=== PATIENT | female | born 1965 | race Caucasian/White ===

== ENCOUNTER → 2019-08-22 13:53 | Outpatient (BNVA) | payer MEDICARE, MEDICAID, SELFPAY | PROVIDERS: Family Provider Family Medicine; PCP Family Medicine; Visit Provider Psychiatry & Neurology Psychiatry | DX: Z79.899 Other long term (current) drug therapy (principal) | CPT/HCPCS: 85007; 85027 ==

== ENCOUNTER → 2019-08-28 12:17 | Outpatient (BNVA) | payer MEDICARE, MEDICAID, SELFPAY | PROVIDERS: Family Provider Family Medicine; PCP Family Medicine; Visit Provider Psychiatry & Neurology Psychiatry | DX: F20.89 Other schizophrenia (principal); F17.210 Nicotine dependence, cigarettes, uncomplicated; F32.5 Major depressive disorder, single episode, in full remission | CPT/HCPCS: 99214 ==

== ENCOUNTER 2019-09-08 08:23 | Emergency (ER) | payer MEDICARE, MEDICAID, SELFPAY ==
[2019-09-08 08:24] VITALS: BP 128/89; PULSE 106; RESP 20; TEMP 36.9; O2SAT 95; BMI 31.8
--- NOTE | 2019-09-08 08:24 | ED_ITS ---
Entered by Sari Pal, acting as scribe for Cesar Neil DO HPI - General Adult General: Stated complaint: r arm pain History of Present Illness: HPI narrative: 54 yo female presents with right arm pain. MD complaint: right arm pain Location: right and upper extremity PFSH ED PFSH: Medical History (Updated 08/28/19 @ 13:05 by Slim Arguello DO) Cigarette nicotine dependence Major depressive disorder, single episode, in full remission Other schizophrenia Other stimulant dependence, uncomplicated Social History (Updated 08/28/19 @ 12:45 by Martha Estrada) Smoking and tobacco status: current every day smoker cigarettes Quit status (tobacco): considering quitting Second hand smoke exposure: Yes Discharge Plan Discharge Prescriptions: No Action mirtazapine 45 mg tablet 45 mg PO .QHS RF: 0 benztropine 2 mg tablet 4 mg PO .QHS RF: 0 citalopram [Celexa] 40 mg tablet 40 mg PO DAILY RF: 0 alprazolam [Xanax] 0.5 mg tablet 0.5 mg PO BID RF: 0 meloxicam 7.5 mg tablet 7.5 mg PO BID RF: 0 oxybutynin chloride 5 mg tablet 15 mg PO .QHS RF: 0 montelukast [Singulair] 10 mg tablet 10 mg PO DAILY RF: 0 Dexilant 60 mg capsule,biphase delayed releas 60 mg PO DAILY RF: 0 fluticasone propion-salmeterol [Advair Diskus] 100-50 mcg/dose blister with device 1 puff INHALATION BID RF: 0 tramadol 50 mg tablet 50 mg PO Q4H PRNRF: 0 clozapine 100 mg tablet 300 mg PO BID Qty: 180 RF: 5 Coding Level of Care Code ED Gasoline Power Shovel Operator for 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
--- NOTE | 2019-09-08 08:33 | W.ED.EXTPRO ---
HPI - Extremity Problem General: Chief complaint: Extremity Problem,Nontraumatic Stated complaint: r arm pain Time Seen by Provider: 09/08/19 08:27 Source: patient Mode of arrival: ambulatory Limitations: no limitations History of Present Illness: HPI Narrative: Patient is a 54-year-old female who presents to ED today with complaints of pain to her right upper extremity over the past week. No new injury or trauma noted. Patient states she seems to have pain in between her shoulder and elbow joints. She does report some intermittent numbness to the ulnar side of her hand. Patient has not noticed decreased range of motion of the joints. She has not noticed any swelling, color, or temperature changes to the extremity. Patient states she has had numbness to the hand previously-never diagnosed with carpal tunnel. Patient has no other complaints currently. MD Complaint: extremity pain Location: right and upper extremity Associated symptoms: Deny chest pain, fever(s) or rash Review of Systems Const: Denies: fever or chills Card: Denies: chest pain, palpitations, irregular heart rhythm, edema, swelling of feet/ankles, lightheadedness, syncope or pre-syncope Resp: Denies: shortness of breath Musc: Reports: extremity pain; Denies: neck pain, back pain, extremity swelling, joint pain, joint swelling, redness, joint warmth, joint stiffness or limited range of motion Skin/Breast: Denies: rash Neuro: Reports: numbness in extremities; Denies: headache, weakness in extremities or changes in sensation [facility] ED PFSH: Medical History (Updated 09/08/19 @ 08:37 by MAGDA Horowitz) Cigarette nicotine dependence Major depressive disorder, single episode, in full remission Other schizophrenia Other stimulant dependence, uncomplicated Social History (Updated 08/28/19 @ 12:45 by Martha Estrada) Smoking and tobacco status: current every day smoker cigarettes Quit status (tobacco): considering quitting Second hand smoke exposure: Yes Physical Exam Const: COMMON NORMALS: no apparent distress, average body habitus, no limitations, alert and well nourished Neck/C-Spine: COMMON NORMALS: full ROM CERVICAL SPINE: No cervical spine tenderness OTHER: negative Spurling's Resp: COMMON NORMALS: normal respiratory effort and clear to auscultation bilaterally AUSCULTATION: clear to auscultation bilaterally Cardio: COMMON NORMALS: regular rate and regular rhythm RATE: regular rate RHYTHM: regular rhythm Extremity: COMMON NORMALS: normal to inspection, full ROM, no joint enlargement and no calf tenderness Neuro: COMMON NORMALS: moves all extremities, no focal motor deficits and no sensory deficits noted SENSORIUM/ORIENTATION: Yes alert MOTOR EXAM: strength 5/5 throughout Skin: COMMON NORMALS: no rashes or lesions noted GENERAL SKIN EXAM: no rashes or lesions noted Course Vital Signs: Vital signs: Vital Signs Temperature 98.5 F 09/08/19 08:24 Pulse Rate 107 H 09/08/19 08:56 Respiratory Rate 20 H 09/08/19 08:56 Blood Pressure 128/86 09/08/19 08:56 Pulse Oximetry 95 09/08/19 08:56 MDM - Extremity (Nontraumatic) MDM Narrative: Medical decision making narrative: Patient neurologically is intact on today's exam. She has no decrease in strength. Range of motion of all joints are full and intact and appear painless. Patient will be treated for a possible neuropathy and recommend she follow-up with primary care for continued discomfort. Discharge Plan Discharge Patient Disposition: Home, Self-Care Clinical Impression: Neuropathy of right upper extremity Condition: Stable Prescriptions: New Medrol (Cedrick) 4 mg tablets,dose pack See Rx Instructions .ROUTE .COMPLEX Qty: 21 RF: 0 No Action mirtazapine 45 mg tablet 45 mg PO .QHS RF: 0 benztropine 2 mg tablet 4 mg PO .QHS RF: 0 citalopram [Celexa] 40 mg tablet 40 mg PO DAILY RF: 0 alprazolam [Xanax] 0.5 mg tablet 0.5 mg PO BID RF: 0 meloxicam 7.5 mg tablet 7.5 mg PO BID RF: 0 oxybutynin chloride 5 mg tablet 15 mg PO .QHS RF: 0 montelukast [Singulair] 10 mg tablet 10 mg PO DAILY RF: 0 Dexilant 60 mg capsule,biphase delayed releas 60 mg PO DAILY RF: 0 fluticasone propion-salmeterol [Advair Diskus] 100-50 mcg/dose blister with device 1 puff INHALATION BID RF: 0 tramadol 50 mg tablet 50 mg PO Q4H PRNRF: 0 clozapine 100 mg tablet 300 mg PO BID Qty: 180 RF: 5 Discharge Orders: Discharge Order (Routine); Ordered 09/08/19 Ordered By: Zayda Villavicencio Referrals: Grecia Kuhn MD [Primary Care Provider] - Activity Restrictions/Additional Instructions: You may continue taking your home medications as prescribed. We will place you on a steroid dose pack. Please contact Dr. Kuhn for further follow up in case symptoms do not improve. You may alternate ice/heat to affected area to see if this helps your discomfort. Discharge Date/Time: 09/08/19 08:57 Coding Level of Care Code ED Pyridine Recovery Operator for 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
[2019-09-08 08:56] VITALS: BP 128/86; PULSE 107; RESP 20; O2SAT 95
== END 2019-09-08 08:57 | disposition home or self-care (01) ==
LOC: ER 08:47
PROVIDERS: Emergency Provider Physician Assistant; Family Provider Family Medicine; PCP Family Medicine
DX: G56.91 Unspecified mononeuropathy of right upper limb (principal); F17.210 Nicotine dependence, cigarettes, uncomplicated
CPT/HCPCS: 99281

== ENCOUNTER 2019-09-23 09:51 | Inpatient (IN) | payer MEDICARE, MEDICAID, SELFPAY ==
--- NOTE | 2019-09-23 09:53 | ED_ITS ---
Entered by Vira Talbert, acting as scribe for Karlos Retana DO HPI - Psych General: Chief Complaint: Psychiatric Symptoms Stated Complaint: SI, HI Time Seen by Provider: 09/23/19 09:56 Source: EMS Mode of arrival: EMS Limitations: no limitations History of Present Illness: MD complaint: suicidal ideation and feels depressed Onset (ago): week(s) (1 week ago) Duration: constant Relieving factors: none Exacerbating factors: other (voices ) Context: significant life stressor (past issues) Associated psychiatric symptoms: depression, suicidal ideation and auditory hallucinations Associated symptoms: Reports no associated symptoms, auditory hallucinations, depression and suicidal ideation Treatments prior to arrival: none Review of Systems General: Reports: 10 or more systems reviewed and unremarkable except in HPI and below Const: Denies: fever or night sweats Eyes: Denies: change in vision or eye redness ENMT: Denies: throat pain or uvular edema Card: Denies: palpitations or lightheadedness Resp: Denies: shortness of breath or productive cough GI: Denies: abdominal pain, cramping or change in bowel habits : Denies: urinary hesitancy, urinary incontinence or vaginal odor Musc: Denies: joint warmth Skin/Breast: Denies: redness, changing lesion or yellow skin Psych: Reports: anxiety, depression, auditory hallucinations and suicidal ideation Endo: Denies: excessive urination or flushing Trevon/Lymph: Denies: easy bruising All/Imm: Denies: hives PFSH ED PFSH: Medical History Cigarette nicotine dependence Major depressive disorder, single episode, in full remission Other schizophrenia Other stimulant dependence, uncomplicated Social History Smoking and tobacco status: current every day smoker cigarettes Quit status (tobacco): considering quitting Second hand smoke exposure: Yes Physical Exam HENMT: THROAT: no uvular edema Psych: MOOD & AFFECT: Yes depressed mood MDM - Psych Lab Data: Labs: Lab Results 09/23/19 09/23/19 09/23/19 Range/Units 10:07 10:07 10:18 WBC 10.4 H (4.0-10.0) 10^3/ uL RBC 4.17 (4.1-5.3) 10^6/u L Hgb 12.1 (11.5-15.3) g/dL Hct 37.4 (37.0-47.0) % MCV 89.7 (81-99) fL MCH 29.0 (28.0-34.0) pg MCHC 32.4 (30.0-36.0) g/dL RDW 14.3 (12.1-15.1) % Plt Count 274 (130-400) 10^3/c mm MPV 9.5 (7.4-10.4) fL Neut % (Auto) 79.2 % Lymph % (Auto) 12.6 % [place] % (Auto) 7.7 % Eos % (Auto) 0.0 % Baso % (Auto) 0.1 % Neut # (Auto) 8.3 H (1.8-7.7) 10^3/u L Lymph # (Auto) 1.3 (0.8-4.8) 10^3/u L [place] # (Auto) 0.8 (0.2-0.9) 10^3/u L Eos # (Auto) 0.0 (0.0-0.8) 10^3/u L Baso # (Auto) 0.0 (0.0-0.1) 10^3/u L Nucleated RBC % (a uto) 0 % Nucleated RBCs # 0.0 /100WBC Sodium 141 (136-145) mmol/L Potassium 4.3 (3.5-5.1) mmol/L Chloride 103 (98-107) mmol/L Carbon Dioxide 26 (22-29) mmol/L Anion Gap 16.3 (5-19) BUN 8 (6-20) mg/dL Creatinine 0.7 (0.5-0.9) mg/dL GFR Calculation 86.9 L (90-130) mL/min Glucose 129 H (65-115) mg/dL Calcium 10.2 (8.5-10.5) mg/dL Total Bilirubin 0.2 (0.15-1.2) mg/dL AST 16 (0-32) U/L ALT 18 (0-33) U/L Alkaline Phosphata se 121 H (35-105) IU/L Total Protein 7.5 (6.6-8.7) g/dL Albumin 4.5 (3.5-5.2) g/dL Globulin 3.0 (1.3-4.6) g/dL TSH 1.51 (0.27-4.20) uIU/ mL Urine Color Colorless (Yellow) Urine Appearance Clear (CLEAR) Urine pH 5.0 (5-7) Ur Specific Gravit y 1.005 (1.005-1.030) Urine Protein Neg (Negative) Urine Glucose (UA) Norm (Normal) Urine Ketones Negative (Negative) Urine Blood Neg (Negative) Urine Nitrate Negative (Negative) Urine Bilirubin Neg (NEGATIVE) Urine Urobilinogen Norm (Negative) mg/dL Ur Leukocyte Zaria ase Negative (Negative) Salicylates < 0.3 L (3-10) mg/dL Urine Opiates Scre en (Negative) ng/mL Acetaminophen < 5.0 L (10-30) ug/mL Ur Barbiturates Sc reen (Negative) ng/mL Ur Phencyclidine S crn (Negative) ng/mL Ur Amphetamines Sc reen (Negative) ng/mL U Benzodiazepines Scrn (Negative) ng/mL Urine Cocaine Scre en (Negative) ng/mL U Marijuana (THC) Screen (Negative) ng/mL Ethyl Alcohol < 10 (0-10) mg/dL 09/23/19 Range/Units 10:18 WBC (4.0-10.0) 10^3/ uL RBC (4.1-5.3) 10^6/u L Hgb (11.5-15.3) g/dL Hct (37.0-47.0) % MCV (81-99) fL MCH (28.0-34.0) pg MCHC (30.0-36.0) g/dL RDW (12.1-15.1) % Plt Count (130-400) 10^3/c mm MPV (7.4-10.4) fL Neut % (Auto) % Lymph % (Auto) % [place] % (Auto) % Eos % (Auto) % Baso % (Auto) % Neut # (Auto) (1.8-7.7) 10^3/u L Lymph # (Auto) (0.8-4.8) 10^3/u L [place] # (Auto) (0.2-0.9) 10^3/u L Eos # (Auto) (0.0-0.8) 10^3/u L Baso # (Auto) (0.0-0.1) 10^3/u L Nucleated RBC % (a uto) % Nucleated RBCs # /100WBC Sodium (136-145) mmol/L Potassium (3.5-5.1) mmol/L Chloride (98-107) mmol/L Carbon Dioxide (22-29) mmol/L Anion Gap (5-19) BUN (6-20) mg/dL Creatinine (0.5-0.9) mg/dL GFR Calculation (90-130) mL/min Glucose (65-115) mg/dL Calcium (8.5-10.5) mg/dL Total Bilirubin (0.15-1.2) mg/dL AST (0-32) U/L ALT (0-33) U/L Alkaline Phosphata se (35-105) IU/L Total Protein (6.6-8.7) g/dL Albumin (3.5-5.2) g/dL Globulin (1.3-4.6) g/dL TSH (0.27-4.20) uIU/ mL Urine Color (Yellow) Urine Appearance (CLEAR) Urine pH (5-7) Ur Specific Gravit y (1.005-1.030) Urine Protein (Negative) Urine Glucose (UA) (Normal) Urine Ketones (Negative) Urine Blood (Negative) Urine Nitrate (Negative) Urine Bilirubin (NEGATIVE) Urine Urobilinogen (Negative) mg/dL Ur Leukocyte Zaria ase (Negative) Salicylates (3-10) mg/dL Urine Opiates Scre en Negative (Negative) ng/mL Acetaminophen (10-30) ug/mL Ur Barbiturates Sc reen Negative (Negative) ng/mL Ur Phencyclidine S crn Negative (Negative) ng/mL Ur Amphetamines Sc reen Negative (Negative) ng/mL U Benzodiazepines Scrn Negative (Negative) ng/mL Urine Cocaine Scre en Negative (Negative) ng/mL U Marijuana (THC) Screen Negative (Negative) ng/mL Ethyl Alcohol (0-10) mg/dL Discharge Plan Discharge Clinical Impression: Acute psychosis, Chronic schizophrenia, Suicidal ideation Depression Qualifiers: Depression Type: major depressive disorder Major depression recurrence: recurrent Active/Remission status: currently active Major depression episode severity: severe Psychotic features: with psychotic features Qualified Code(s): F33.3 - Major depressive disorder, recurrent, severe with psychotic symptoms Condition: Fair Prescriptions: No Action mirtazapine 45 mg tablet 45 mg PO .QHS RF: 0 benztropine 2 mg tablet 4 mg PO .QHS RF: 0 citalopram [Celexa] 40 mg tablet 40 mg PO DAILY RF: 0 alprazolam [Xanax] 0.5 mg tablet 0.5 mg PO BID RF: 0 meloxicam 7.5 mg tablet 7.5 mg PO BID RF: 0 oxybutynin chloride 5 mg tablet 15 mg PO .QHS RF: 0 montelukast [Singulair] 10 mg tablet 10 mg PO DAILY RF: 0 Dexilant 60 mg capsule,biphase delayed releas 60 mg PO DAILY RF: 0 fluticasone propion-salmeterol [Advair Diskus] 100-50 mcg/dose blister with device 1 puff INHALATION BID RF: 0 tramadol 50 mg tablet 50 mg PO Q4H PRNRF: 0 clozapine 100 mg tablet 300 mg PO BID Qty: 180 RF: 5 Medrol (Cedrick) 4 mg tablets,dose pack See Rx Instructions .ROUTE .COMPLEX Qty: 21 RF: 0 Referrals: Grecia Kuhn MD [Primary Care Provider] - Coding Level of Care Code ED Feller Hand for Chg Fwd Exam Problem Focused The documentation recorded by the [place] Bridget Annette, accurately reflects the service I personally performed and the decisions made by me, Karlos Retana, DO
[2019-09-23 09:55] VITALS: BP 146/95; PULSE 107; RESP 16; TEMP 37; O2SAT 96; BMI 31.8
[2019-09-23 10:14] LABS: Basophils % 0.1 %; Hematocrit 37.4 % (37.0-47.0); Hemoglobin 12.1 g/dL (11.5-15.3); Lymphocytes # 1.3 10^3/uL (0.8-4.8); Lymphocytes % 12.6 %; Mean Corpuscular HGB Conc 32.4 g/dL (30.0-36.0); Mean Corpuscular Volume 89.7 fL (81-99); Mean Platelet Volume 9.5 fL (7.4-10.4); Monocytes # 0.8 10^3/uL (0.2-0.9); Monocytes % 7.7 %; Neutrophils # 8.3 10^3/uL (1.8-7.7); Neutrophils % 79.2 %; Nucleated Red Blood Cells % 0 %; Platelet Count 274 10^3/cmm (130-400); Red Blood Count 4.17 10^6/uL (4.1-5.3); Red Cell Distribution Width 14.3 % (12.1-15.1); White Blood Count 10.4 10^3/uL (4.0-10.0)
[2019-09-23] MEDS: haloperidol inj 5 mg/mL INJ 1 mL IM (10:19)
[2019-09-23 10:26] LABS: Add Urine Microscopic? NO
[2019-09-23 10:29] LABS: Bilirubin Urine Neg (NEGATIVE); Blood Urine Neg (Negative); Glucose Urine UA Norm (Normal); Ketones Urine Negative (Negative); Leukocyte Esterase Urine Negative (Negative); Nitrate Urine Negative (Negative); Protein Urine Neg (Negative); Specific Gravity, Urine 1.005 (1.005-1.030); Urine Appearance Clear (CLEAR); Urine Color Colorless (Yellow); Urobilinogen Urine Norm (Negative)
[2019-09-23 10:41] LABS: Alanine Aminotransferase 18 U/L (0-33); Albumin Level 4.5 g/dL (3.5-5.2); Alkaline Phosphatase 121 IU/L (35-105); Anion Gap 16.3 (5-19); Aspartate Amino Transferase 16 U/L (0-32); Blood Urea Nitrogen 8 mg/dL (6-20); Calcium 10.2 mg/dL (8.5-10.5); Carbon Dioxide 26 mmol/L (22-29); Chloride 103 mmol/L (98-107); Glomerular Filtration Rate 86.9 mL/min (90-130); Glucose 129 mg/dL (65-115); Potassium 4.3 mmol/L (3.5-5.1); Sodium 141 mmol/L (136-145); Thyroid Stimulating Hormone 1.51 uIU/mL (0.27-4.20); Total Bilirubin 0.2 mg/dL (0.15-1.2); Total Protein 7.5 g/dL (6.6-8.7)
[2019-09-23 10:45] LABS: Amphetamines Screen Urine Negative (Negative); Barbiturates Screen Urine Negative (Negative); Benzodiazepines Screen Urine Negative (Negative); Cocaine Screen Urine Negative (Negative); Opiate Screen Urine Negative (Negative); PCP Screen Urine Negative (Negative); THC Screen Urine Negative (Negative)
[2019-09-23 10:52] LABS: Acetaminophen < 5.0 ug/mL (10-30); Alcohol Level < 10 mg/dL (0-10); Salicylate < 0.3 mg/dL (3-10)
[2019-09-23 11:18] VITALS: BP 124/90; PULSE 101; RESP 20; TEMP 36.6; O2SAT 97
[2019-09-23 11:39] VITALS: BP 142/75; PULSE 82; RESP 16; TEMP 37; O2SAT 96
[2019-09-23] MEDS: acetaminophen 325 mg Tablet 650 MG PO ×2 (13:09→17:38)
[2019-09-23 14:00] VITALS: BP 142/75; PULSE 82; RESP 16; TEMP 37
[2019-09-23 22:00] VITALS: BP 107/73; PULSE 100; RESP 17; TEMP 36.6; O2SAT 93
[2019-09-23] MEDS: benztropine 1 mg Tablet 4 MG PO (22:32)
[2019-09-23] MEDS: cloZAPine 100 mg Tablet 300 MG PO (22:33)
[2019-09-23] MEDS: mirtazapine 15 mg Tablet 45 MG PO (22:33)
[2019-09-23] MEDS: albuterol 8 gm MDI 1 PUFF INHALATION (22:36)
[2019-09-24 06:00] VITALS: BP 128/86; PULSE 98; RESP 16; TEMP 36.5; O2SAT 95
--- NOTE | 2019-09-24 07:29 | PM.NHP ---
Providers/Chief Complaint Admitting Physician: Lawrence Martinez MD Primary Care Provider: Grecia Kuhn MD Chief Complaint: ACUTE PSYCHOSIS HPI NPU History of Present Illness Hilda Nolan is a 54 year old female presents today reporting that she is doing okay. Last night after she was admitted, she cornered this medical writer and was talking about signing out AMA. She ended up staying and reports that she is really overwhelmed right now with her circumstance outside of the hospital. She reports that the place where she lives is very toxic at times and overwhelming to her. However, she says her medications are really effective in treating her psychosis. She gets her blood draws on time and she has been able to avoid being hospitalized since September of 2015. Excerpt from that note are provided below. She reports that she has been doing fine overall. No problems outside of the challenges that come from living where she lives, which she reports can be absolutely overwhelming. We discussed the risks, benefits and alternatives of working with the social workers to do two things. One would be to get a signal operator technical/classification case manager who can help her navigate the systems outside of the hospital in the event that she wants to make some change, which she seems fairly confused and unsure what she wants to do. Number two, they are going to connect her with a day program to get her out of that environment during the day. We discussed her not signing out AMA and sticking here for at least one day so we can get those things in place. We discussed the fact that she has done such a good job on her medication and avoiding hospitalization for this amount of time, we would hate for things to go back in the other direction because we have not assisted her with getting the right resources in place. She endorses that her psychiatric history, psychosocial history is essentially unchanged. She denies any new issues that might have any bearing on her current presentation. PSYCHIATRIC HISTORY: As above. She has had multiple hospitalizations but has been fairly stable for the last four years. SUBSTANCE ABUSE HISTORY: She denies any significant substance abuse issues at this time. FAMILY HISTORY: She denies significant psychiatric history with her family. DEVELOPMENTAL HISTORY: Unremarkable and no impact on current situation. PSYCHOSOCIAL HISTORY: As stated above, unchanged. She endorses having children that are grown. She is and needing something during the day to fill her time as she is not working and disabled. Per last IP [facility] eval 09/2015: HISTORY OF PRESENT ILLNESS: She was admitted to the Neuropsychiatric Unit after she has been contemplating suicide. She has been thinking a lot about her life and talked about her stress of missing her children. She has reported that she has been feeling depressed. She thought about taking an excess amount of Valium with no clear intentions. She believes that her intention is not quite right. She took about 9 tablets of Valium of 5 milligram strength. The patient reported that she has been regularly seen by [facility] outpatient psychiatric services. She has been treated for underlying schizophrenia and her history of methamphetamine use disorder, which has been in remission. She has been put on clozapine at 200 milligrams twice daily. She has also been given Remeron 45 milligrams at bedtime. She has continued to attend psychosocial rehabilitation services at [facility]. Strong recommendation for psychosocial rehab was encouraged. She has no EPS. The patient was vague about hallucinatory behaviors. ALLERGIES: Ibuprofen and seafood. PAST PSYCHIATRIC HISTORY: Previous hospitalization here at the Neuro[facility] Unit. Her last hospitalization was in April of 2015. However, she has regular followup at [facility]. She gave history of suicide attempt in the past, which included also overdose on her medications. SOCIAL HISTORY: She is . She is currently living alone. Her children are currently not with her. She attends the psychosocial rehabilitation services regularly. FAMILY HISTORY: She has denied a family history of psychiatric illness. PAST MEDICAL HISTORY: Gastroesophageal reflux disease. Constipation. Chronic obstructive pulmonary disease. Peptic ulcer disease and hepatitis. Also fibromyalgia. REVIEW OF SYSTEMS: Negative, except what was described in the History of Present Illness. DIAGNOSTICS: LABORATORIES: White count 10.1, hemoglobin 14.0, hematocrit 42.1. Platelet count is 260,000. Toxicology was positive for benzodiazepines. Chemistry showed: Sodium of 141, potassium 4.1, BUN 10, creatinine 0.9. AST and ALT 29 and 27 respectively. MEDICATIONS: Singulair 10 milligrams daily. Meloxicam 50 milligrams daily. Protonix 40 milligrams daily. Cogentin 2 milligrams daily. Advair 2 puffs twice daily. Remeron 45 milligrams at bedtime. Clozapine 200 milligrams twice daily. MiraLax one packet daily. Ventolin 2 puffs every 4 hours p.r.n. She has also been prescribed Diazepam at the outpatient clinic at 5 milligrams daily. Diazepam is the medication that she overdosed on. Meds NPU Home Medications Medication Instructions Recorded Confirmed Type alprazolam 0.5 mg tablet 0.5 mg PO BID 08/28/19 09/23/19 History benztropine 2 mg tablet 4 mg PO .QHS tab 08/28/19 09/23/19 History citalopram 40 mg tablet 40 mg PO DAILY 08/28/19 09/23/19 History dexlansoprazole 60 mg 60 mg PO DAILY 08/28/19 09/23/19 History capsule,biphase delayed release meloxicam 7.5 mg tablet 7.5 mg PO BID tab 08/28/19 09/23/19 History mirtazapine 45 mg tablet 45 mg PO .QHS tab 08/28/19 09/23/19 History montelukast 10 mg tablet 10 mg PO DAILY 08/28/19 09/23/19 History oxybutynin chloride 5 mg tablet 15 mg PO DAILY tab 08/28/19 09/23/19 History tramadol 50 mg tablet 50 mg PO Q4H PRN MDD 200MG 08/28/19 09/23/19 History Advair Diskus 250 mcg INHALATION BID 09/23/19 09/23/19 History Flonase Allergy Relief 50 mcg NOSTRIL-B DAILY 09/23/19 09/23/19 History Ventolin HFA 108 mcg INHALATION Q4H 09/23/19 09/23/19 History clozapine [Clozaril] 300 mg PO BEDTIME 09/23/19 09/23/19 History Allergies Allergy/AdvReac Type Severity Reaction Status Date / Time ibuprofen Allergy Unknown unknown Verified 08/22/19 14:01 PFS NPU PFSH: Medical History Cigarette nicotine dependence Major depressive disorder, single episode, in full remission Other schizophrenia Other stimulant dependence, uncomplicated Social History Smoking and tobacco status: current every day smoker cigarettes Quit status (tobacco): considering quitting Second hand smoke exposure: Yes Mental Status Exam MSE Comments: This is an obese, white female, with adequate dress, grooming, and eye contact. No abnormal movements. Cooperative with exam in no acute distress. Speech was decreased rate and volume. Mood described as a little better than yesterday; affect congruent. Thought process, organized. Thought content: patient denied any suicidal or homicidal ideation, there were no delusions reported or noted, patient denied any auditory or visual hallucinations. Attention, concentration, and memory appear intact but were not formally tested. He is alert and oriented times three. Insight and judgment are limited but improving. Vitals/I&O/Wt Last Vital Signs Temp 97.7 F 09/24/19 06:00 Pulse 98 09/24/19 06:00 Resp 16 09/24/19 06:00 BP 128/86 09/24/19 06:00 Pulse Ox 95 09/24/19 06:00 Weight last 48 hrs Weight 78.925 kg Data NPU : 09/23/19 10:07 09/23/19 10:07 A&P Additional A&P Information This is a 54 year old, white female, with a long history of schizoaffective disorder, anxiety and limited resources, who presents initially wanting to sign out AMA, but now willing to work with us for a very short stay with a plan to boost her resources for discharge. RECOMMENDATION AND PLAN: Continue current medication. Encourage individual, group, and milieu therapy. Continue q 15-minute checks. Will work to get day programming and classification case manager in place today so that she can be discharged tomorrow. Involuntary Hold Information 96 Hour Hold: 96 Hour Involuntary Admission: No Attestations NPU Medical Necessity Statement*: Inpatient hospitalization is medically necessary and the clinically appropriate intervention at this time. We will monitor medications and change as indicated. likely length of stay 1-3 days. Coding Level of Care Code Acute Medical Educator for 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
[2019-09-24] MEDS: albuterol 8 gm MDI 1 PUFF INHALATION (11:16)
[2019-09-24] MEDS: citalopram 20 mg Tablet 40 MG PO (11:17)
[2019-09-24] MEDS: montelukast sodium 10 mg Tablet PO (11:18)
[2019-09-24] MEDS: ALPRAZolam 0.5 mg Tablet PO ×2 (11:18→17:49)
[2019-09-24] MEDS: meloxicam 7.5 mg tablet PO ×2 (11:21→17:49)
[2019-09-24] MEDS: oxybutynin 5 mg Tablet 15 MG PO (11:21)
[2019-09-24] MEDS: nicotine 2 mg Gum BUCCAL ×3 (11:22→21:46)
[2019-09-24] MEDS: pantoprazole DR 40 mg Tablet PO (11:22)
[2019-09-24] MEDS: TRAMadol 50 mg Tablet PO (11:23)
[2019-09-24] MEDS: fluticasone nasal spray 16gm Btl 1 SPRAY NASAL (12:39)
[2019-09-24 13:56] VITALS: BP 111/73; PULSE 109; RESP 20; TEMP 37; O2SAT 93
[2019-09-24] MEDS: cloZAPine 100 mg Tablet 300 MG PO (21:44)
[2019-09-24] MEDS: mirtazapine 15 mg Tablet 45 MG PO (21:45)
[2019-09-24] MEDS: benztropine 1 mg Tablet 4 MG PO (21:45)
--- NOTE | 2019-09-24 21:45 | PC.NURSE ---
HS meds cogentin, clozaril, remeron given.
[2019-09-24 22:00] VITALS: BP 115/79; PULSE 83; RESP 17; TEMP 36.9; O2SAT 96
--- NOTE | 2019-09-24 22:00 | PC.NURSE ---
nicorete gum given.
[2019-09-25 06:00] VITALS: BP 125/89; PULSE 99; RESP 16; TEMP 36.6; O2SAT 95
[2019-09-25] MEDS: ALPRAZolam 0.5 mg Tablet PO (08:30)
[2019-09-25] MEDS: oxybutynin 5 mg Tablet 15 MG PO (08:31)
[2019-09-25] MEDS: citalopram 20 mg Tablet 40 MG PO (08:32)
[2019-09-25] MEDS: meloxicam 7.5 mg tablet PO (08:32)
[2019-09-25] MEDS: pantoprazole DR 40 mg Tablet PO (08:32)
[2019-09-25] MEDS: montelukast sodium 10 mg Tablet PO (08:32)
[2019-09-25] MEDS: albuterol 8 gm MDI 1 PUFF INHALATION ×2 (08:35→09:35)
[2019-09-25] MEDS: fluticasone nasal spray 16gm Btl 1 SPRAY NASAL (08:38)
[2019-09-25 08:49] VITALS: PULSE 92; RESP 18; O2SAT 96
[2019-09-25] MEDS: nicotine 2 mg Gum BUCCAL (08:59)
[2019-09-25] MEDS: TRAMadol 50 mg Tablet PO (09:18)
--- NOTE | 2019-09-25 11:53 | P.DS_ITS ---
Diagnoses at Discharge Discharge Diagnosis (1) Acute psychosis: Status: Acute (2) Chronic schizophrenia: Status: Acute (3) Major depressive disorder, single episode, in full remission: Status: Acute (4) Cigarette nicotine dependence: Status: Acute Reason for Visit Reason for Visit: Reason For Visit: ACUTE PSYCHOSIS Brief History: HPI NPU History of Present Illness Hilda Nolan is a 54 year old female presents today reporting that she is doing okay. Last night after she was admitted, she cornered this conventional underwriter and was talking about signing out AMA. She ended up staying and reports that she is really overwhelmed right now with her circumstance outside of the hospital. She reports that the place where she lives is very toxic at times and overwhelming to her. However, she says her medications are really effective in treating her psychosis. She gets her blood draws on time and she has been able to avoid being hospitalized since September of 2015. Excerpt from that note are provided below. She reports that she has been doing fine overall. No problems outside of the challenges that come from living where she lives, which she reports can be absolutely overwhelming. We discussed the risks, benefits and alternatives of working with the social workers to do two things. One would be to get a tower crane operator/block and case maker who can help her navigate the systems outside of the hospital in the event that she wants to make some change, which she seems fairly confused and unsure what she wants to do. Number two, they are going to connect her with a day program to get her out of that environment during the day. We discussed her not signing out AMA and sticking here for at least one day so we can get those things in place. We discussed the fact that she has done such a good job on her medication and avoiding hospitalization for this amount of time, we would hate for things to go back in the other direction because we have not assisted her with getting the right resources in place. She endorses that her psychiatric history, psychosocial history is essentially unchanged. She denies any new issues that might have any bearing on her current presentation. PSYCHIATRIC HISTORY: As above. She has had multiple hospitalizations but has been fairly stable for the last four years. SUBSTANCE ABUSE HISTORY: She denies any significant substance abuse issues at this time. FAMILY HISTORY: She denies significant psychiatric history with her family. DEVELOPMENTAL HISTORY: Unremarkable and no impact on current situation. PSYCHOSOCIAL HISTORY: As stated above, unchanged. She endorses having children that are grown. She is and needing something during the day to fill her time as she is not working and disabled. Per last IP [facility] [place] 09/2015: HISTORY OF PRESENT ILLNESS: She was admitted to the Neuropsychiatric Unit after she has been contemplating suicide. She has been thinking a lot about her life and talked about her stress of missing her children. She has reported that she has been feeling depressed. She thought about taking an excess amount of Valium with no clear intentions. She believes that her intention is not quite right. She took about 9 tablets of Valium of 5 milligram strength. The patient reported that she has been regularly seen by [facility] outpatient psychiatric services. She has been treated for underlying schizophrenia and her history of methamphetamine use disorder, which has been in remission. She has been put on clozapine at 200 milligrams twice daily. She has also been given Remeron 45 milligrams at bedtime. She has continued to attend psychosocial rehabilitation services at [facility]. Strong recommendation for psychosocial rehab was encouraged. She has no EPS. The patient was vague about hallucinatory behaviors. ALLERGIES: Ibuprofen and seafood. PAST PSYCHIATRIC HISTORY: Previous hospitalization here at the Neuropsychiatric Unit. Her last hospitalization was in April of 2015. However, she [facility]. She gave history of suicide attempt in the past, which included also overdose on her medications. SOCIAL HISTORY: She is . She is currently living alone. Her children are currently not with her. She attends the psychosocial rehabilitation services regularly. FAMILY HISTORY: She has denied a family history of psychiatric illness. PAST MEDICAL HISTORY: Gastroesophageal reflux disease. Constipation. Chronic obstructive pulmonary disease. Peptic ulcer disease and hepatitis. Also fibromyalgia. REVIEW OF SYSTEMS: Negative, except what was described in the History of Present Illness. DIAGNOSTICS: LABORATORIES: White count 10.1, hemoglobin 14.0, hematocrit 42.1. Platelet count is 260,000. Toxicology was positive for benzodiazepines. Chemistry showed: Sodium of 141, potassium 4.1, BUN 10, creatinine 0.9. AST and ALT 29 and 27 respectively. MEDICATIONS: Singulair 10 milligrams daily. Meloxicam 50 milligrams daily. Protonix 40 milligrams daily. Cogentin 2 milligrams daily. Advair 2 puffs twice daily. Remeron 45 milligrams at bedtime. Clozapine 200 milligrams twice daily. MiraLax one packet daily. Ventolin 2 puffs every 4 hours p.r.n. She has also been prescribed Diazepam at the outpatient clinic at 5 milligrams daily. Diazepam is the medication that she overdosed on. Hospital Course Hospital Course Hilda presented to the emergency room endorsing inability go on/suicidal thoughts related to the trauma and stress coming from her living arrangement. She was admitted to the neuropsych unit and quickly acclimated to the individual, group and milieu therapies provided. She was assisted in getting some daytime resources as well as connection to a block and case maker and they could explore the possibility of changing living quarters. She felt the medications have been very effective and so no changes were made in her medications. She had routine laboratory studies which were within normal limits except for a few outliers. Additionally she had a general medical evaluation that was within normal limits and revealed no new acute processes. Discharge Summary At the time of discharge she denied all lethality, and anxieties were stable and she denied any active addiction issues and she endorsed the plan to avoid any drugs of abuse. She agreed to accept the referrals that were made. She was evaluated and found to lack any concern or imminent risk to self or others. She did obtain the maximum benefit from inpatient hospitalization so she was discharged. Involuntary Hold Information 96 Hour Hold: 96 Hour Involuntary Admission: No Mental Status Exam MSE Comments: This is an obese, white female, with adequate dress, grooming, and eye contact. No abnormal movements. Cooperative with exam in no acute distress. Speech was normal rate and slightly decreased volume. Mood described as pretty good; affect congruent. Thought process, organized. Thought content: patient denied any suicidal or homicidal ideation, there were no delusions reported or noted, patient denied any auditory or visual hallucinations. Attention, concentration, and memory appear intact but were not formally tested. He is alert and oriented times three. Insight and judgment are improving. Discharge Data Vitals: Last Vital Signs Temp 97.8 F 09/25/19 06:00 Pulse 92 09/25/19 08:49 Resp 18 09/25/19 08:49 BP 125/89 09/25/19 06:00 Pulse Ox 96 09/25/19 08:49 Discharge Plan Discharge Patient Disposition: Home, Self-Care Condition: Fair Prescriptions: Continued benztropine 2 mg tablet 4 mg PO .QHS RF: 0 meloxicam 7.5 mg tablet 7.5 mg PO BID RF: 0 oxybutynin chloride 5 mg tablet 15 mg PO DAILY RF: 0 montelukast [Singulair] 10 mg tablet 10 mg PO DAILY RF: 0 Dexilant 60 mg capsule,biphase delayed releas 60 mg PO DAILY RF: 0 Clozaril 100 mg tablet 300 mg PO BEDTIME RF: 0 Advair Diskus inhaler 250 mcg inhalation BID RF: 0 Flonase Allergy Relief nasal spray syringe 50 mcg NOSTRIL-B DAILY RF: 0 Ventolin HFA aerosol 108 mcg inhalation Q4H RF: 0 Celexa 40 mg tablet 40 mg PO DAILY 30 Days Qty: 30 RF: 0 Xanax 0.5 mg tablet 0.5 mg PO BID 30 Days Qty: 60 RF: 0 mirtazapine 45 mg tablet 45 mg PO .QHS 30 Days Qty: 30 RF: 0 Changed tramadol 50 mg tablet 50 mg PO TID MDD 200MG PRN (Reason: Pain (Scale Score 4-6)) 15 Days Qty: 45 RF: 1 Discharge Orders: Discharge Order (Routine); Ordered 09/25/19 Ordered By: Lawrence Martinez Referrals: Grecia Kuhn MD [Primary Care Provider] - Slim Arguello DO [Staff Physician] - 10/27/19 9:30 am Discharge Diet: Regular Discharge Activity: Resume usual activity Activity Restrictions/Additional Instructions: A request for PSR and case management has been made. Referrals are pending. You may check with Crystal Araujo at [facility] on any update in regards to the referrals. [phone] Discharge Date/Time: 09/25/19 14:30 Discharge Attestations NPU Time Spent in Discharge Care*: less than 30 min Specific Discharge Activities: Specific discharge activities: educating patient, discussing with case hardener/social workers/dc planners, documenting/other paperwork and evaluating patient/reviewing data Coding Level of Care Code Acute Music Promoter for Krystin Fwd Diagnoses Acute psychosis F23 Chronic schizophrenia F20.9 Major depressive disorder, single episode, in full remission F32.5 Cigarette nicotine dependence F17.210
[2019-09-25 12:29] VITALS: PULSE 92; RESP 18; O2SAT 96
[2019-09-25 14:21] VITALS: PULSE 92; RESP 18; O2SAT 96
== END 2019-09-25 14:30 | disposition home or self-care (01) | DRG 885 ==
LOC: ER 11:41 → NP 11:43
PROVIDERS: Admitting Provider Psychiatry & Neurology Psychiatry; Emergency Provider Family Medicine; Family Provider Family Medicine; PCP Family Medicine; Visit Provider Psychiatry & Neurology Psychiatry
DX: F32.5 Major depressive disorder, single episode, in full remission (principal); R45.851 Suicidal ideations; F20.89 Other schizophrenia; F17.210 Nicotine dependence, cigarettes, uncomplicated; E66.9 Obesity, unspecified; Z68.31 Body mass index [BMI] 31.0-31.9, adult; K21.9 Gastro-esophageal reflux disease without esophagitis; J44.9 Chronic obstructive pulmonary disease, unspecified; M79.7 Fibromyalgia; Z87.11 Personal history of peptic ulcer disease
CPT/HCPCS: 12345; 36415; 80053; 80307; 81003; 84443; 85025; 94640; 96372; 99281; J1630; J3535

== ENCOUNTER 2019-10-14 10:35 | Emergency (ER) | payer MEDICARE, MEDICAID, SELFPAY ==
[2019-10-14 09:55] VITALS: BP 115/89; PULSE 111; RESP 16; TEMP 36.6; O2SAT 96; BMI 30.7
--- NOTE | 2019-10-14 09:58 | W.ED.PSYCH ---
HPI - Psych General: Chief Complaint: Psychiatric Symptoms Stated Complaint: MHE/feeling overwhelmed Time Seen by Provider: 10/14/19 10:24 Source: patient Mode of arrival: ambulatory Limitations: no limitations History of Present Illness: HPI Narrative: 54 yo female presents with HI and symptoms. pt states this started over 3-5 days ago. pt states no one wants to help her and she gets depressed and can not help her self. pt also states she wants to be checked for the hobbs virus. pt states she has no plan but wants to harm people that has harmed her. pt denies any other symptoms at this time. MD complaint: feels depressed and other (HI) Onset (ago): day(s) (3-5 days ago) Associated symptoms: Reports depression and homicidal ideation Review of Systems General: Reports: 10 or more systems reviewed and unremarkable except in HPI and below Musc: Denies: joint warmth Psych: Reports: anxiety, depression, hopelessness, loss of interest and homicidal ideation PFS ED PFSH: Social History Smoking and tobacco status: current every day smoker cigarettes Quit status (tobacco): considering quitting Second hand smoke exposure: Yes Physical Exam Const: COMMON NORMALS: no apparent distress, average body habitus, oriented x3, no limitations, healthy appearing, alert and well nourished HENMT: COMMON NORMALS: normocephalic, head/scalp atraumatic, hearing grossly normal bilaterally, external ears normal, EAC's normal, TM's normal bilaterally, external nose normal, nasal mucous membranes and turbinates normal, moist oral mucous membranes, oropharynx normal, dentition normal and gingiva normal HEAD & SCALP: normocephalic and atraumatic NOSE: external nose normal and nasal mucous membranes and turbinates normal EXTERNAL EAR: Yes external ears normal EXTERNAL AUDITORY CANAL: EAC's normal TYMPANIC MEMBRANE: TM's normal bilaterally Eye: COMMON NORMALS: PERRL, EOMs intact bilaterally, conjunctivae normal, no scleral icterus, no papilledema, normal visual viramontes by confrontation and fundi normal bilaterally CONJUNCTIVA: Yes conjunctivae normal PUPIL: Yes PERRL DIRECT OPHTHALMOSCOPY: Yes no papilledema and Yes fundi normal bilaterally Neck/C-Spine: COMMON NORMALS: full ROM, no lymphadenopathy, supple, no meningeal signs, no JVD, thyroid normal and no carotid bruits THYROID: thyroid normal Chest: COMMONS NORMALS: inspection of chest normal and palpation of chest normal Resp: COMMON NORMALS: normal respiratory effort, no retractions, no use of accessory muscles, clear to auscultation bilaterally and percussion normal AUSCULTATION: clear to auscultation bilaterally PERCUSSION: percussion normal Cardio: COMMON NORMALS: no JVD, regular rate, regular rhythm, S1 normal heart sound, S2 normal heart sound, no gallops, no clicks, no murmurs, no rub and peripheral pulses 2+ throughout RATE: regular rate RHYTHM: regular rhythm HEART SOUNDS: S1 normal and S2 normal PERIPHERAL PULSES: pulses 2+ throughout GI: COMMON NORMALS: normal to inspection, nondistended, normoactive bowel sounds, soft to palpation, non-tender, no hepatosplenomegaly, no masses and no bruits PALPATION: Yes soft and Yes no hepatosplenomegaly : COMMON NORMALS: Yes no CVA tenderness and Yes external appearance normal BLADDER/KIDNEY EXAM: Yes no CVA tenderness Back/Pelvis: COMMON NORMALS: no CVA tenderness, thoracic and lumbar spine normal to inspection, no thoracic nor lumbar tenderness, thoraco-lumbar ROM normal and straight leg raise negative bilaterally Extremity: COMMON NORMALS: normal to inspection, full ROM, normal capillary refill, no joint enlargement, no clubbing, cyanosis or edema, no calf tenderness and no pedal edema Neuro: COMMON NORMALS: oriented x3 SENSORIUM/ORIENTATION: Yes alert MENINGEAL SIGNS: Yes no meningeal signs Psych: MOOD & AFFECT: Yes depressed mood and Yes anxious Skin: COMMON NORMALS: no rashes or lesions noted, no wounds, skin turgor normal, no jaundice, no petechiae and no mottling GENERAL SKIN EXAM: no rashes or lesions noted and turgor normal Discharge Plan Discharge Prescriptions: No Action benztropine 2 mg tablet 4 mg PO .QHS RF: 0 meloxicam 7.5 mg tablet 7.5 mg PO BID RF: 0 oxybutynin chloride 5 mg tablet 15 mg PO DAILY RF: 0 montelukast [Singulair] 10 mg tablet 10 mg PO DAILY RF: 0 Dexilant 60 mg capsule,biphase delayed releas 60 mg PO DAILY RF: 0 Clozaril 100 mg tablet 300 mg PO BEDTIME RF: 0 Advair Diskus inhaler 250 mcg inhalation BID RF: 0 Flonase Allergy Relief nasal spray syringe 50 mcg NOSTRIL-B DAILY RF: 0 Ventolin HFA aerosol 108 mcg inhalation Q4H RF: 0 Celexa 40 mg tablet 40 mg PO DAILY 30 Days Qty: 30 RF: 0 tramadol 50 mg tablet 50 mg PO TID MDD 200MG PRN (Reason: Pain (Scale Score 4-6)) 15 Days Qty: 45 RF: 1 Xanax 0.5 mg tablet 0.5 mg PO BID 30 Days Qty: 60 RF: 0 mirtazapine 45 mg tablet 45 mg PO .QHS 30 Days Qty: 30 RF: 0 Coding Level of Care Code ED Sheeting Puller for 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
[2019-10-14 10:16] VITALS: O2SAT 98
[2019-10-14 10:46] LABS: Basophils % 0.1 %; Hematocrit 39.9 % (37.0-47.0); Hemoglobin 12.9 g/dL (11.5-15.3); Lymphocytes # 1.5 10^3/uL (0.8-4.8); Lymphocytes % 18.8 %; Mean Corpuscular HGB Conc 32.3 g/dL (30.0-36.0); Mean Corpuscular Hemoglobin 29.5 pg (28.0-34.0); Mean Corpuscular Volume 91.1 fL (81-99); Mean Platelet Volume 9.9 fL (7.4-10.4); Monocytes # 0.7 10^3/uL (0.2-0.9); Monocytes % 8.4 %; Neutrophils # 5.6 10^3/uL (1.8-7.7); Neutrophils % 72.6 %; Nucleated Red Blood Cells % 0 %; Platelet Count 314 10^3/cmm (130-400); Red Blood Count 4.38 10^6/uL (4.1-5.3); Red Cell Distribution Width 13.7 % (12.1-15.1); White Blood Count 7.8 10^3/uL (4.0-10.0)
[2019-10-14 10:46] LABS: Add Urine Microscopic? NO
[2019-10-14 10:53] LABS: Alanine Aminotransferase 15 U/L (0-33); Albumin Level 4.5 g/dL (3.5-5.2); Alkaline Phosphatase 121 IU/L (35-105); Anion Gap 16.3 (5-19); Aspartate Amino Transferase 16 U/L (0-32); Blood Urea Nitrogen 9 mg/dL (6-20); Calcium 10.4 mg/dL (8.5-10.5); Carbon Dioxide 26 mmol/L (22-29); Chloride 100 mmol/L (98-107); Glomerular Filtration Rate 86.9 mL/min (90-130); Glucose 93 mg/dL (65-115); Osmolality Calculated 282 mOsm/kg (285-295); Potassium 4.3 mmol/L (3.5-5.1); Sodium 138 mmol/L (136-145); Total Bilirubin 0.2 mg/dL (0.15-1.2); Total Protein 7.5 g/dL (6.6-8.7)
[2019-10-14 10:59] LABS: Acetaminophen < 5.0 ug/mL (10-30); Alcohol Level < 10 mg/dL (0-10); Salicylate < 0.3 mg/dL (3-10)
[2019-10-14 11:09] LABS: Bilirubin Urine Neg (NEGATIVE); Blood Urine Neg (Negative); Glucose Urine UA Norm (Normal); Ketones Urine Negative (Negative); Leukocyte Esterase Urine Negative (Negative); Nitrate Urine Negative (Negative); Protein Urine Neg (Negative); Specific Gravity, Urine 1.005 (1.005-1.030); Urine Appearance Clear (CLEAR); Urine Color Straw (Yellow); Urobilinogen Urine Norm (Negative); pH Urine 6 (5-7)
[2019-10-14 11:18] LABS: Amphetamines Screen Urine Negative (Negative); Barbiturates Screen Urine Negative (Negative); Benzodiazepines Screen Urine Positive (Negative); Cocaine Screen Urine Negative (Negative); Opiate Screen Urine Negative (Negative); PCP Screen Urine Negative (Negative); THC Screen Urine Negative (Negative)
== END 2019-10-14 10:55 | disposition left against medical advice (07) ==
LOC: ER 11:50
PROVIDERS: Emergency Provider Family Medicine; Family Provider Family Medicine
DX: Z53.21 Procedure and treatment not carried out due to patient leaving prior to being seen by health care provider (principal); F17.200 Nicotine dependence, unspecified, uncomplicated
CPT/HCPCS: 36415; 80053; 80306; 80307; 81003; 85025; 99283

== ENCOUNTER 2019-10-18 07:07 | Emergency (ER) | payer MEDICARE, MEDICAID, SELFPAY ==
[2019-10-18 07:08] VITALS: BP 139/108; PULSE 101; RESP 16; TEMP 36.7; O2SAT 95; BMI 30.7
[2019-10-18 07:15] VITALS: O2SAT 97
--- NOTE | 2019-10-18 07:16 | ED_ITS ---
Documented by User: MAGDA Judd 10/18/19 11:07 HPI - Psych General: Chief Complaint: Psychiatric Symptoms Stated Complaint: ANXIETY Time Seen by Provider: 10/18/19 07:13 History of Present Illness: HPI Narrative: Patient is a 54-year-old female who comes to the ED with anxiety. Denies suicidal ideation or homicidal ideation. She says her life and the people that are in her life provide too much stress and she is having trouble functioning. She states she has been through a lot in her life and has had a lot of bad things happen to her and she ruminates on some of those bad memories. She is having difficulty sleeping and staying up all hours of the night. She feels very depressed. She currently takes all of her medications and states that they help, but not enough. Denies any illegal drug use currently. She denies any visual hallucinations, but does admit to having audible voices she hears. She is unable to make out what the voices are saying. Associated symptoms: Reports auditory hallucinations and depression; Deny visual hallucinations, homicidal ideation or suicidal ideation Review of Systems Const: Denies: fever, chills or fatigue Eyes: Denies: change in vision or eye discomfort ENMT: Denies: throat pain, painful swallowing, nasal discharge or nasal congestion Card: Denies: chest pain, palpitations, edema, swelling of feet/ankles, shortness of breath on exertion or shortness of breath when lying down Resp: Reports: non-productive cough (chronic [id number] and Smoker); Denies: shortness of breath or productive cough GI: Denies: abdominal pain, nausea, vomiting, diarrhea, constipation or blood in stool : Reports: urinary dribbling (chronic issue); Denies: flank pain, painful urination or blood in urine Musc: Denies: neck pain, back pain or extremity swelling Skin/Breast: Denies: rash or new lesion Neuro: Denies: headache, numbness in extremities or weakness in extremities Psych: Reports: anxiety, depression, sleeping less and auditory hallucinations; Denies: visual hallucinations, suicidal ideation or homicidal ideation [facility] PFSH: Medical History Cigarette nicotine dependence Major depressive disorder, single episode, in full remission Other schizophrenia Other stimulant dependence, uncomplicated Social History Smoking and tobacco status: current every day smoker cigarettes Quit status (tobacco): considering quitting Second hand smoke exposure: Yes Physical Exam Const: COMMON NORMALS: oriented x3 HENMT: COMMON NORMALS: normocephalic HEAD & SCALP: normocephalic MOUTH: oral and palatal mucosa normal THROAT: posterior oropharynx normal and uvula midline Neck/C-Spine: COMMON NORMALS: supple GENERAL: Yes normal visual inspection Resp: COMMON NORMALS: normal respiratory effort, no retractions, no use of accessory muscles and clear to auscultation bilaterally AUSCULTATION: clear t o auscultation bilaterally Cardio: COMMON NORMALS: regular rate, regular rhythm, S1 normal heart sound, S2 normal heart sound, no gallops, no clicks, no murmurs and peripheral pulses 2+ throughout RATE: regular rate RHYTHM: regular rhythm HEART SOUNDS: S1 normal and S2 normal PERIPHERAL PULSES: pulses 2+ throughout GI: COMMON NORMALS: normal to inspection, nondistended, normoactive bowel sounds, soft to palpation, non-tender and no masses PALPATION: Yes soft : COMMON NORMALS: Yes no CVA tenderness BLADDER/KIDNEY EXAM: Yes no CVA tenderness Back/Pelvis: COMMON NORMALS: no CVA tenderness Extremity: COMMON NORMALS: normal to inspection Neuro: COMMON NORMALS: oriented x3 and moves all extremities Psych: COMMON NORMALS: mental status grossly normal, thought process normal, speech normal and activity/motor behavior normal APPEARANCE: Yes grossly normal ATTITUDE: Yes calm and Yes evasive ACTIVITY/MOTOR BEHAVIOR: Yes appropriate eye contact SPEECH: Yes normal speech MOOD & AFFECT: Yes depressed mood THOUGHT PROCESS: normal thought process THOUGHT CONTENT: Yes normal thought content and Yes rumination(s) (talked about some negative past experiences and I didn't ask about them) ATTENTION/CONCENTRATION: Yes attention grossly intact and Yes concentration grossly intact MEMORY/COGNITION: Yes memory grossly intact and Yes cognition grossly intact INSIGHT: fair JUDGEMENT: fair Skin: GENERAL SKIN EXAM: dry skin MDM - Psych MDM Narrative: Medical decision making narrative: Patient is a 54-year-old female who comes to the ED with anxiety. Patient denied suicidal ideation or homicidal ideation. I contacted the propulsion motor and generator repairer behavioral health doctor (Dr. Martinez) to discuss patient's case. Dr. Martinez decided he would come in to the ED today and talk with patient himself. After visiting with the patient he informed me that he did not want patient to get admitted to [facility] and thought patient should be discharged. He wanted me to put patient on propranolol 20 mg 3 times daily as needed for anxiety. He also wanted me to put in a pain management referral for patient because after talking with her some of the mental health issues could improve if pain was better controlled. I placed over wound referral to pain management with case loader operator. Patient will follow up with behavioral health within the next 5 to 7 days. Patient understood and agreed with plan. Lab Data: Attestation: I reviewed the patient's lab results. Labs: Lab Results 10/18/19 10/18/19 10/18/19 Range/Units 07:49 07:49 07:53 WBC 9.5 (4.0-10.0) 10^3/ uL RBC 4.32 (4.1-5.3) 10^6/u L Hgb 12.8 (11.5-15.3) g/dL Hct 39.2 (37.0-47.0) % MCV 90.7 (81-99) fL MCH 29.6 (28.0-34.0) pg MCHC 32.7 (30.0-36.0) g/dL RDW 13.5 (12.1-15.1) % Plt Count 336 (130-400) 10^3/c mm MPV 9.3 (7.4-10.4) fL Neut % (Auto) 75.5 % Lymph % (Auto) 15.1 % [place] % (Auto) 8.9 % Eos % (Auto) 0.0 % Baso % (Auto) 0.1 % Neut # (Auto) 7.1 (1.8-7.7) 10^3/u L Lymph # (Auto) 1.4 (0.8-4.8) 10^3/u L [place] # (Auto) 0.8 (0.2-0.9) 10^3/u L Eos # (Auto) 0.0 (0.0-0.8) 10^3/u L Baso # (Auto) 0.0 (0.0-0.1) 10^3/u L Nucleated RBC % (a uto) 0 % Nucleated RBCs # 0.0 /100WBC Sodium (136-145) mmol/L Potassium (3.5-5.1) mmol/L Chloride (98-107) mmol/L Carbon Dioxide (22-29) mmol/L Anion Gap (5-19) BUN (6-20) mg/dL Creatinine (0.5-0.9) mg/dL GFR Calculation (90-130) mL/min Glucose (65-115) mg/dL Calculated Osmolal ity (285-295) mOsm/k g Calcium (8.5-10.5) mg/dL Total Bilirubin (0.15-1.2) mg/dL AST (0-32) U/L ALT (0-33) U/L Alkaline Phosphata se (35-105) IU/L Total Protein (6.6-8.7) g/dL Albumin (3.5-5.2) g/dL Globulin (1.3-4.6) g/dL TSH (0.27-4.20) uIU/ mL Urine Color Straw (Yellow) Urine Appearance Clear (CLEAR) Urine pH 7 (5-7) Ur Specific Gravit y 1.005 (1.005-1.030) Urine Protein Neg (Negative) Urine Glucose (UA) Norm (Normal) Urine Ketones Negative (Negative) Urine Blood Neg (Negative) Urine Nitrate Negative (Negative) Urine Bilirubin Neg (NEGATIVE) Urine Urobilinogen Norm (Negative) mg/dL Ur Leukocyte Zaria ase Negative (Negative) Urine RBC None (0-2) /hpf Urine WBC None (0-5) /hpf Ur Squamous Epith Cells 0-4 H (0-5) Urine Bacteria Trace (NONE) Salicylates (3-10) mg/dL Urine Opiates Scre en Negative (Negative) ng/mL Acetaminophen (10-30) ug/mL Ur Barbiturates Sc reen Negative (Negative) ng/mL Ur Phencyclidine S crn Negative (Negative) ng/mL Ur Amphetamines Sc reen Negative (Negative) ng/mL U Benzodiazepines Scrn Positive H (Negative) ng/mL Urine Cocaine Scre en Negative (Negative) ng/mL U Marijuana (THC) Screen Negative (Negative) ng/mL Ethyl Alcohol (0-10) mg/dL 10/18/19 Range/Units 07:53 WBC (4.0-10.0) 10^3/ uL RBC (4.1-5.3) 10^6/u L Hgb (11.5-15.3) g/dL Hct (37.0-47.0) % MCV (81-99) fL MCH (28.0-34.0) pg MCHC (30.0-36.0) g/dL RDW (12.1-15.1) % Plt Count (130-400) 10^3/c mm MPV (7.4-10.4) fL Neut % (Auto) % Lymph % (Auto) % [place] % (Auto) % Eos % (Auto) % Baso % (Auto) % Neut # (Auto) (1.8-7.7) 10^3/u L Lymph # (Auto) (0.8-4.8) 10^3/u L [place] # (Auto) (0.2-0.9) 10^3/u L Eos # (Auto) (0.0-0.8) 10^3/u L Baso # (Auto) (0.0-0.1) 10^3/u L Nucleated RBC % (a uto) % Nucleated RBCs # /100WBC Sodium 136 (136-145) mmol/L Potassium 4.2 (3.5-5.1) mmol/L Chloride 99 (98-107) mmol/L Carbon Dioxide 26 (22-29) mmol/L Anion Gap 15.2 (5-19) BUN 8 (6-20) mg/dL Creatinine 0.7 (0.5-0.9) mg/dL GFR Calculation 86.9 L (90-130) mL/min Glucose 127 H (65-115) mg/dL Calculated Osmolal ity 279 L (285-295) mOsm/k g Calcium 10.2 (8.5-10.5) mg/dL Total Bilirubin 0.2 (0.15-1.2) mg/dL AST 16 (0-32) U/L ALT 14 (0-33) U/L Alkaline Phosphata se 124 H (35-105) IU/L Total Protein 7.4 (6.6-8.7) g/dL Albumin 4.4 (3.5-5.2) g/dL Globulin 3.0 (1.3-4.6) g/dL TSH 1.29 (0.27-4.20) uIU/ mL Urine Color (Yellow) Urine Appearance (CLEAR) Urine pH (5-7) Ur Specific Gravit y (1.005-1.030) Urine Protein (Negative) Urine Glucose (UA) (Normal) Urine Ketones (Negative) Urine Blood (Negative) Urine Nitrate (Negative) Urine Bilirubin (NEGATIVE) Urine Urobilinogen (Negative) mg/dL Ur Leukocyte Zaria ase (Negative) Urine RBC (0-2) /hpf Urine WBC (0-5) /hpf Ur Squamous Epith Cells (0-5) Urine Bacteria (NONE) Salicylates 0.4 L (3-10) mg/dL Urine Opiates Scre en (Negative) ng/mL Acetaminophen < 5.0 L (10-30) ug/mL Ur Barbiturates Sc reen (Negative) ng/mL Ur Phencyclidine S crn (Negative) ng/mL Ur Amphetamines Sc reen (Negative) ng/mL U Benzodiazepines Scrn (Negative) ng/mL Urine Cocaine Scre en (Negative) ng/mL U Marijuana (THC) Screen (Negative) ng/mL Ethyl Alcohol < 10 (0-10) mg/dL Discharge Plan Discharge Patient Disposition: Home, Self-Care Clinical Impression: Acute anxiety Condition: Stable Prescriptions: New propranolol 20 mg tablet 20 mg PO TID Qty: 30 RF: 0 No Action benztropine 2 mg tablet 4 mg PO BEDTIME RF: 0 meloxicam 7.5 mg tablet 7.5 mg PO BID RF: 0 oxybutynin chloride 5 mg tablet 15 mg PO DAILY RF: 0 montelukast [Singulair] 10 mg tablet 10 mg PO DAILY RF: 0 Dexilant 60 mg capsule,biphase delayed releas 60 mg PO DAILY RF: 0 clozapine [Clozaril] 100 mg tablet 300 mg PO BEDTIME RF: 0 Flonase Allergy Relief nasal spray syringe 50 mcg NOSTRIL-B DAILY RF: 0 Ventolin HFA aerosol 108 mcg inhalation Q4H RF: 0 citalopram [Celexa] 40 mg tablet 40 mg PO DAILY 30 Days Qty: 30 RF: 0 tramadol 50 mg tablet 50 mg PO TID MDD 200MG PRN (Reason: Pain (Scale Score 4-6)) 15 Days Qty: 45 RF: 1 alprazolam [Xanax] 0.5 mg tablet 0.5 mg PO BID 30 Days Qty: 60 RF: 0 docusate sodium 100 mg capsule 100 mg PO BID PRN (Reason: Constipation) RF: 0 mirtazapine 45 mg tablet 45 mg PO BEDTIME RF: 0 Discharge Orders: Discharge Order (Routine); Ordered 10/18/19 Ordered By: Jax Stanley Referrals: Grecia Kuhn MD [Family Provider] - Discharge Diet: Regular Discharge Activity: Resume usual activity Patient Instructions: Anxiety (ED) Activity Restrictions/Additional Instructions: Follow-up with behavioral health in the next 5 to 7 days for reevaluation. Take propanolol as prescribed as needed for anxiety. I placed a referral to pain management for you. You should be getting a call to set up an appointment with pain management in the next week. Discharge Date/Time: 10/18/19 10:53 Coding Level of Care Code ED Bushler for Chg Fwd Exam Comprehensive Documented by User: Cesar Neil DO 10/20/19 05:54 HPI - Psych General: Chief Complaint: Psychiatric Symptoms Stated Complaint: ANXIETY Time Seen by Provider: 10/18/19 07:13 PFSH ED PFSH: Medical History Cigarette nicotine dependence Major depressive disorder, single episode, in full remission Other schizophrenia Other stimulant dependence, uncomplicated Social History Smoking and tobacco status: current every day smoker cigarettes Quit status (tobacco): considering quitting Second hand smoke exposure: Yes MDM - Psych MDM Narrative: Medical decision making narrative: Case reviewed with midlevel. Agree with assesment and plan. Lab Data: Labs: Lab Results 10/18/19 10/18/19 10/18/19 Range/Units 07:49 07:49 07:53 WBC 9.5 (4.0-10.0) 10^3/ uL RBC 4.32 (4.1-5.3) 10^6/u L Hgb 12.8 (11.5-15.3) g/dL Hct 39.2 (37.0-47.0) % MCV 90.7 (81-99) fL MCH 29.6 (28.0-34.0) pg MCHC 32.7 (30.0-36.0) g/dL RDW 13.5 (12.1-15.1) % Plt Count 336 (130-400) 10^3/c mm MPV 9.3 (7.4-10.4) fL Neut % (Auto) 75.5 % Lymph % (Auto) 15.1 % [place] % (Auto) 8.9 % Eos % (Auto) 0.0 % Baso % (Auto) 0.1 % Neut # (Auto) 7.1 (1.8-7.7) 10^3/u L Lymph # (Auto) 1.4 (0.8-4.8) 10^3/u L [place] # (Auto) 0.8 (0.2-0.9) 10^3/u L Eos # (Auto) 0.0 (0.0-0.8) 10^3/u L Baso # (Auto) 0.0 (0.0-0.1) 10^3/u L Nucleated RBC % (a uto) 0 % Nucleated RBCs # 0.0 /100WBC Sodium (136-145) mmol/L Potassium (3.5-5.1) mmol/L Chloride (98-107) mmol/L Carbon Dioxide (22-29) mmol/L Anion Gap (5-19) BUN (6-20) mg/dL Creatinine (0.5-0.9) mg/dL GFR Calculation (90-130) mL/min Glucose (65-115) mg/dL Calculated Osmolal ity (285-295) mOsm/k g Calcium (8.5-10.5) mg/dL Total Bilirubin (0.15-1.2) mg/dL AST (0-32) U/L ALT (0-33) U/L Alkaline Phosphata se (35-105) IU/L Total Protein (6.6-8.7) g/dL Albumin (3.5-5.2) g/dL Globulin (1.3-4.6) g/dL TSH (0.27-4.20) uIU/ mL Urine Color Straw (Yellow) Urine Appearance Clear (CLEAR) Urine pH 7 (5-7) Ur Specific Gravit y 1.005 (1.005-1.030) Urine Protein Neg (Negative) Urine Glucose (UA) Norm (Normal) Urine Ketones Negative (Negative) Urine Blood Neg (Negative) Urine Nitrate Negative (Negative) Urine Bilirubin Neg (NEGATIVE) Urine Urobilinogen Norm (Negative) mg/dL Ur Leukocyte Zaria ase Negative (Negative) Urine RBC None (0-2) /hpf Urine WBC None (0-5) /hpf Ur Squamous Epith Cells 0-4 H (0-5) Urine Bacteria Trace (NONE) Salicylates (3-10) mg/dL Urine Opiates Scre en Negative (Negative) ng/mL Acetaminophen (10-30) ug/mL Ur Barbiturates Sc reen Negative (Negative) ng/mL Ur Phencyclidine S crn Negative (Negative) ng/mL Ur Amphetamines Sc reen Negative (Negative) ng/mL U Benzodiazepines Scrn Positive H (Negative) ng/mL Urine Cocaine Scre en Negative (Negative) ng/mL U Marijuana (THC) Screen Negative (Negative) ng/mL Ethyl Alcohol (0-10) mg/dL 10/18/19 Range/Units 07:53 WBC (4.0-10.0) 10^3/ uL RBC (4.1-5.3) 10^6/u L Hgb (11.5-15.3) g/dL Hct (37.0-47.0) % MCV (81-99) fL MCH (28.0-34.0) pg MCHC (30.0-36.0) g/dL RDW (12.1-15.1) % Plt Count (130-400) 10^3/c mm MPV (7.4-10.4) fL Neut % (Auto) % Lymph % (Auto) % [place] % (Auto) % Eos % (Auto) % Baso % (Auto) % Neut # (Auto) (1.8-7.7) 10^3/u L Lymph # (Auto) (0.8-4.8) 10^3/u L [place] # (Auto) (0.2-0.9) 10^3/u L Eos # (Auto) (0.0-0.8) 10^3/u L Baso # (Auto) (0.0-0.1) 10^3/u L Nucleated RBC % (a uto) % Nucleated RBCs # /100WBC Sodium 136 (136-145) mmol/L Potassium 4.2 (3.5-5.1) mmol/L Chloride 99 (98-107) mmol/L Carbon Dioxide 26 (22-29) mmol/L Anion Gap 15.2 (5-19) BUN 8 (6-20) mg/dL Creatinine 0.7 (0.5-0.9) mg/dL GFR Calculation 86.9 L (90-130) mL/min Glucose 127 H (65-115) mg/dL Calculated Osmolal ity 279 L (285-295) mOsm/k g Calcium 10.2 (8.5-10.5) mg/dL Total Bilirubin 0.2 (0.15-1.2) mg/dL AST 16 (0-32) U/L ALT 14 (0-33) U/L Alkaline Phosphata se 124 H (35-105) IU/L Total Protein 7.4 (6.6-8.7) g/dL Albumin 4.4 (3.5-5.2) g/dL Globulin 3.0 (1.3-4.6) g/dL TSH 1.29 (0.27-4.20) uIU/ mL Urine Color (Yellow) Urine Appearance (CLEAR) Urine pH (5-7) Ur Specific Gravit y (1.005-1.030) Urine Protein (Negative) Urine Glucose (UA) (Normal) Urine Ketones (Negative) Urine Blood (Negative) Urine Nitrate (Negative) Urine Bilirubin (NEGATIVE) Urine Urobilinogen (Negative) mg/dL Ur Leukocyte Zaria ase (Negative) Urine RBC (0-2) /hpf Urine WBC (0-5) /hpf Ur Squamous Epith Cells (0-5) Urine Bacteria (NONE) Salicylates 0.4 L (3-10) mg/dL Urine Opiates Scre en (Negative) ng/mL Acetaminophen < 5.0 L (10-30) ug/mL Ur Barbiturates Sc reen (Negative) ng/mL Ur Phencyclidine S crn (Negative) ng/mL Ur Amphetamines Sc reen (Negative) ng/mL U Benzodiazepines Scrn (Negative) ng/mL Urine Cocaine Scre en (Negative) ng/mL U Marijuana (THC) Screen (Negative) ng/mL Ethyl Alcohol < 10 (0-10) mg/dL Discharge Plan Discharge Patient Disposition: Home, Self-Care Clinical Impression: Acute anxiety Condition: Stable Prescriptions: New propranolol 20 mg tablet 20 mg PO TID Qty: 30 RF: 0 No Action benztropine 2 mg tablet 4 mg PO BEDTIME RF: 0 meloxicam 7.5 mg tablet 7.5 mg PO BID RF: 0 oxybutynin chloride 5 mg tablet 15 mg PO DAILY RF: 0 montelukast [Singulair] 10 mg tablet 10 mg PO DAILY RF: 0 Dexilant 60 mg capsule,biphase delayed releas 60 mg PO DAILY RF: 0 clozapine [Clozaril] 100 mg tablet 300 mg PO BEDTIME RF: 0 Flonase Allergy Relief nasal spray syringe 50 mcg NOSTRIL-B DAILY RF: 0 Ventolin HFA aerosol 108 mcg inhalation Q4H RF: 0 citalopram [Celexa] 40 mg tablet 40 mg PO DAILY 30 Days Qty: 30 RF: 0 tramadol 50 mg tablet 50 mg PO TID MDD 200MG PRN (Reason: Pain (Scale Score 4-6)) 15 Days Qty: 45 RF: 1 alprazolam [Xanax] 0.5 mg tablet 0.5 mg PO BID 30 Days Qty: 60 RF: 0 docusate sodium 100 mg capsule 100 mg PO BID PRN (Reason: Constipation) RF: 0 mirtazapine 45 mg tablet 45 mg PO BEDTIME RF: 0 Discharge Orders: Discharge Order (Routine); Ordered 10/18/19 Ordered By: Jax Stanley Referrals: Grecia Kuhn MD [Family Provider] - Discharge Diet: Regular Discharge Activity: Resume usual activity Patient Instructions: Anxiety (ED) Activity Restrictions/Additional Instructions: Follow-up with behavioral health in the next 5 to 7 days for reevaluation. Take propanolol as prescribed as needed for anxiety. I placed a referral to pain management for you. You should be getting a call to set up an appointment with pain management in the next week. Discharge Date/Time: 10/18/19 10:53 Coding Level of Care Code ED Bushler for Chg Fwd Exam Comprehensive
[2019-10-18 08:00] LABS: Basophils % 0.1 %; Hematocrit 39.2 % (37.0-47.0); Hemoglobin 12.8 g/dL (11.5-15.3); Lymphocytes # 1.4 10^3/uL (0.8-4.8); Lymphocytes % 15.1 %; Mean Corpuscular HGB Conc 32.7 g/dL (30.0-36.0); Mean Corpuscular Hemoglobin 29.6 pg (28.0-34.0); Mean Corpuscular Volume 90.7 fL (81-99); Mean Platelet Volume 9.3 fL (7.4-10.4); Monocytes # 0.8 10^3/uL (0.2-0.9); Monocytes % 8.9 %; Neutrophils # 7.1 10^3/uL (1.8-7.7); Neutrophils % 75.5 %; Nucleated Red Blood Cells % 0 %; Platelet Count 336 10^3/cmm (130-400); Red Blood Count 4.32 10^6/uL (4.1-5.3); Red Cell Distribution Width 13.5 % (12.1-15.1); White Blood Count 9.5 10^3/uL (4.0-10.0)
[2019-10-18] MEDS: LORazepam 1 mg Tablet PO (08:13)
[2019-10-18 08:16] LABS: Bilirubin Urine Neg (NEGATIVE); Blood Urine Neg (Negative); Glucose Urine UA Norm (Normal); Ketones Urine Negative (Negative); Leukocyte Esterase Urine Negative (Negative); Nitrate Urine Negative (Negative); Protein Urine Neg (Negative); Specific Gravity, Urine 1.005 (1.005-1.030); Urine Appearance Clear (CLEAR); Urine Color Straw (Yellow); Urobilinogen Urine Norm (Negative); pH Urine 7 (5-7)
--- NOTE | 2019-10-18 08:21 | PC.NURSE ---
Pt stated she is hearing voices. pt states she has had this since she was 3 years old. Pt states she doesn't know what they are saying, just weird things. MAGDA Zimmerman informed.
[2019-10-18 08:26] VITALS: BP 118/70; PULSE 75; RESP 15; O2SAT 97
[2019-10-18 08:36] LABS: Alanine Aminotransferase 14 U/L (0-33); Albumin Level 4.4 g/dL (3.5-5.2); Alkaline Phosphatase 124 IU/L (35-105); Anion Gap 15.2 (5-19); Aspartate Amino Transferase 16 U/L (0-32); Blood Urea Nitrogen 8 mg/dL (6-20); Calcium 10.2 mg/dL (8.5-10.5); Carbon Dioxide 26 mmol/L (22-29); Chloride 99 mmol/L (98-107); Glomerular Filtration Rate 86.9 mL/min (90-130); Glucose 127 mg/dL (65-115); Osmolality Calculated 279 mOsm/kg (285-295); Potassium 4.2 mmol/L (3.5-5.1); Salicylate 0.4 mg/dL (3-10); Sodium 136 mmol/L (136-145); Thyroid Stimulating Hormone 1.29 uIU/mL (0.27-4.20); Total Bilirubin 0.2 mg/dL (0.15-1.2); Total Protein 7.4 g/dL (6.6-8.7)
[2019-10-18 08:46] LABS: Acetaminophen < 5.0 ug/mL (10-30); Alcohol Level < 10 mg/dL (0-10)
[2019-10-18 08:57] LABS: Add Urine Culture? No; Bacteria Urine TRACE; Squamous Epithelial Cell Urine 0-4 (0-5)
[2019-10-18 08:58] LABS: Amphetamines Screen Urine Negative (Negative); Barbiturates Screen Urine Negative (Negative); Benzodiazepines Screen Urine Positive (Negative); Cocaine Screen Urine Negative (Negative); Opiate Screen Urine Negative (Negative); PCP Screen Urine Negative (Negative); THC Screen Urine Negative (Negative)
[2019-10-18 09:00] VITALS: PULSE 110; RESP 16; O2SAT 97
[2019-10-18 09:52] VITALS: PULSE 101; RESP 17; O2SAT 98
[2019-10-18] MEDS: TRAMadol 50 mg Tablet PO (10:10)
[2019-10-18] MEDS: propranolol 20 mg Tablet PO (10:41)
[2019-10-18 10:52] VITALS: BP 129/89; PULSE 94; RESP 16; O2SAT 97
--- NOTE | 2019-10-23 11:56 | DCPLANNER ---
manager business planning had message to speak with patient about pain management referral. manager business planning called patient and informed patient that case finisher is unable to refer patient to pain management, that the referral for pain management would need to come from the patients primary care physician, that the clinic requires that referral comes from primary care.
== END 2019-10-18 10:53 | disposition home or self-care (01) ==
PROVIDERS: Emergency Provider Physician Assistant; Family Provider Family Medicine
DX: F41.9 Anxiety disorder, unspecified (principal); F20.89 Other schizophrenia; F17.210 Nicotine dependence, cigarettes, uncomplicated
CPT/HCPCS: 12345; 36415; 80053; 80306; 80307; 81001; 84443; 85025; 96361; 96365; 96366; 99284; A9270

== ENCOUNTER → 2019-10-27 08:22 | Outpatient (BNVA) | payer MEDICARE, MEDICAID, SELFPAY | PROVIDERS: Family Provider Family Medicine; Visit Provider Psychiatry & Neurology Psychiatry | DX: F32.5 Major depressive disorder, single episode, in full remission (principal); F17.210 Nicotine dependence, cigarettes, uncomplicated; F20.89 Other schizophrenia | CPT/HCPCS: 99214 ==

== ENCOUNTER 2019-11-06 15:00 | Inpatient (IN) | payer MEDICARE, MEDICAID, SELFPAY ==
[2019-11-06 15:03] VITALS: BP 123/78; PULSE 117; RESP 18; TEMP 36.6; O2SAT 98; BMI 32.3
--- NOTE | 2019-11-06 15:11 | ED_ITS ---
HPI - Psych General: Chief Complaint: Psychiatric Symptoms Stated Complaint: SI Time Seen by Provider: 11/06/19 15:02 History of Present Illness: HPI Narrative: 54 yo dense emergency room via EMS with hallucinations. She is seeing things on her hands. She is quite perplexed and disturbed by this and feels that no one is paying attention to her concerns. She is at the point where she is considered harming herself to make the hallucinations stopped. Patient has been admitted multiple times in the past for similar complaints. She denies use of any drugs or alcohol recently she denies any recent illness no fever sweats chills cough or respiratory symptoms Associated symptoms: Reports depression and suicidal ideation; Deny auditory hallucinations, visual hallucinations or homicidal ideation Review of Systems Const: Denies: fever, chills, body aches, fatigue, malaise or night sweats Eyes: Denies: change in vision or blurry vision ENMT: Denies: throat pain, oral sores/lesions, dental pain, nasal discharge or nasal congestion Card: Denies: chest pain, palpitations, irregular heart rhythm, edema, s yncope, shortness of breath on exertion, shortness of breath when lying down or leg pain with exertion Resp: Denies: shortness of breath, productive cough, non-productive cough or wheezing GI: Denies: abdominal pain, nausea, vomiting, vomiting blood, coffee grounds in vomit, difficulty swallowing, heartburn/indigestion, diarrhea, constipation, cramping, blood in stool or black tarry stool : Denies: flank pain, painful urination, urinary frequency, urinary urgency, urinary incontinence or blood in urine Musc: Denies: neck pain, back pain, extremity pain, extremity swelling, joint pain or joint swelling Skin/Breast: Denies: rash, itching or redness Neuro: Denies: headache, numbness in extremities, weakness in extremities, changes in sensation, lack of coordination, difficulty walking, frequent falls, dizziness, vertigo or confusion Psych: Reports: anxiety, depression and suicidal ideation; Denies: loss of interest, visual hallucinations, auditory hallucinations or homicidal ideation Endo: Denies: excessive urination, excessive thirst, tired all the time or cold intolerance Trevon/Lymph: Denies: easy bruising, easy bleeding, petechiae, enlarged lymph nodes or tender lymph nodes [facility] ED PFSH: Social History Smoking and tobacco status: current every day smoker cigarettes Quit status (tobacco): considering quitting Second hand smoke exposure: Yes Physical Exam Const: COMMON NORMALS: no apparent distress GENERAL APPEARANCE: cooperative and comfortable ORIENTATION/CONSCIOUSNESS: Yes awake HENMT: COMMON NORMALS: normocephalic, head/scalp atraumatic, hearing grossly normal bilaterally, external ears normal, EAC's normal, TM's normal bilaterally, nasal mucous membranes and turbinates normal, moist oral mucous membranes and oropharynx normal HEAD & SCALP: normocephalic and atraumatic NOSE: nasal mucous membranes and turbinates normal EXTERNAL EAR: Yes external ears normal EXTERNAL AUDITORY CANAL: EAC's normal TYMPANIC MEMBRANE: TM's normal bilaterally Eye: COMMON NORMALS: PERRL, EOMs intact bilaterally, conjunctivae normal and no scleral icterus CONJUNCTIVA: Yes conjunctivae normal PUPIL: Yes PERRL Neck/C-Spine: COMMON NORMALS: full ROM, no lymphadenopathy, supple and no JVD Lymph: LYMPHATIC: no lymphadenopathy noted and no lymphedema noted Resp: COMMON NORMALS: normal respiratory effort, no retractions, no use of accessory muscles and clear to auscultation bilaterally AUSCULTATION: clear to auscultation bilaterally Cardio: COMMON NORMALS: no JVD, regular rate, regular rhythm and no murmurs RATE: regular rate RHYTHM: regular rhythm GI: COMMON NORMALS: soft to palpation and no hepatosplenomegaly AUSCULTATION: Yes normoactive bowel sounds PALPATION: Yes soft, No tender, No guarding and Yes no hepatosplenomegaly Extremity: COMMON NORMALS: normal to inspection, normal capillary refill, no clubbing, cyanosis or edema, no calf tenderness and no pedal edema Skin: COMMON NORMALS: no rashes or lesions noted GENERAL SKIN EXAM: no rashes or lesions noted MDM - Psych Lab Data: Labs: Lab Results 11/06/19 11/06/19 11/06/19 Range/Units 15:10 15:45 15:45 WBC 11.3 H (4.0-10.0) 10^3/ uL RBC 4.24 (4.1-5.3) 10^6/u L Hgb 12.7 (11.5-15.3) g/dL Hct 39.6 (37.0-47.0) % MCV 93.4 (81-99) fL MCH 30.0 (28.0-34.0) pg MCHC 32.1 (30.0-36.0) g/dL RDW 14.2 (12.1-15.1) % Plt Count 292 (130-400) 10^3/c mm MPV 9.7 (7.4-10.4) fL Neut % (Auto) 76.0 % Lymph % (Auto) 16.0 % [place] % (Auto) 7.3 % Eos % (Auto) 0.2 % Baso % (Auto) 0.1 % Neut # (Auto) 8.6 H (1.8-7.7) 10^3/u L Lymph # (Auto) 1.8 (0.8-4.8) 10^3/u L [place] # (Auto) 0.8 (0.2-0.9) 10^3/u L Eos # (Auto) 0.0 (0.0-0.8) 10^3/u L Baso # (Auto) 0.0 (0.0-0.1) 10^3/u L Nucleated RBC % (a uto) 0 % Nucleated RBCs # 0.0 /100WBC Sodium 138 (136-145) mmol/L Potassium 4.0 (3.5-5.1) mmol/L Chloride 102 (98-107) mmol/L Carbon Dioxide 25 (22-29) mmol/L Anion Gap 15.0 (5-19) BUN 12 (6-20) mg/dL Creatinine 0.8 (0.5-0.9) mg/dL GFR Calculation 74.5 L (90-130) mL/min Glucose 134 H (65-115) mg/dL Calculated Osmolal ity 284 L (285-295) mOsm/k g Calcium 10.1 (8.5-10.5) mg/dL Total Bilirubin 0.2 (0.15-1.2) mg/dL AST 18 (0-32) U/L ALT 25 (0-33) U/L Alkaline Phosphata se 124 H (35-105) IU/L Total Protein 7.0 (6.6-8.7) g/dL Albumin 4.4 (3.5-5.2) g/dL Globulin 2.6 (1.3-4.6) g/dL HCG, Qual Negative (Negative) Salicylates < 0.3 L (3-10) mg/dL Acetaminophen < 5.0 L (10-30) ug/mL Ethyl Alcohol < 10 (0-10) mg/dL Discharge Plan Discharge Patient Disposition: Admitted As Inpatient Admit Provider: Stefan Coffman Clinical Impression: Suicidal ideation, Other schizophrenia Condition: Stable Discharge Orders: Discharge Order (Routine); Ordered 11/07/19 Ordered By: Stefan Coffman Referrals: Slim Arguello DO [Staff Physician] - 11/11/19 8:00 am Patient Instructions: Clozapine (By mouth), Tramadol (By mouth), Depression (DC) Interventions: ED Discharge Assessment Last Done: 11/06/19 17:47 Discharge Date/Time: 11/06/19 17:47 Coding Level of Care Code ED Hospitality Coordinator for Chg Fwd Exam Comprehensive
[2019-11-06 15:53] LABS: HCG Qualitative Urine. Negative (Negative)
[2019-11-06 15:54] LABS: Basophils % 0.1 %; Eosinophils % 0.2 %; Hematocrit 39.6 % (37.0-47.0); Hemoglobin 12.7 g/dL (11.5-15.3); Lymphocytes # 1.8 10^3/uL (0.8-4.8); Mean Corpuscular HGB Conc 32.1 g/dL (30.0-36.0); Mean Corpuscular Volume 93.4 fL (81-99); Mean Platelet Volume 9.7 fL (7.4-10.4); Monocytes # 0.8 10^3/uL (0.2-0.9); Monocytes % 7.3 %; Neutrophils # 8.6 10^3/uL (1.8-7.7); Nucleated Red Blood Cells % 0 %; Platelet Count 292 10^3/cmm (130-400); Red Blood Count 4.24 10^6/uL (4.1-5.3); Red Cell Distribution Width 14.2 % (12.1-15.1); White Blood Count 11.3 10^3/uL (4.0-10.0)
[2019-11-06 16:08] LABS: Alanine Aminotransferase 25 U/L (0-33); Albumin Level 4.4 g/dL (3.5-5.2); Alkaline Phosphatase 124 IU/L (35-105); Aspartate Amino Transferase 18 U/L (0-32); Blood Urea Nitrogen 12 mg/dL (6-20); Calcium 10.1 mg/dL (8.5-10.5); Carbon Dioxide 25 mmol/L (22-29); Chloride 102 mmol/L (98-107); Globulin 2.6 g/dL (1.3-4.6); Glomerular Filtration Rate 74.5 mL/min (90-130); Glucose 134 mg/dL (65-115); Osmolality Calculated 284 mOsm/kg (285-295); Sodium 138 mmol/L (136-145); Total Bilirubin 0.2 mg/dL (0.15-1.2)
[2019-11-06 16:25] LABS: Acetaminophen < 5.0 ug/mL (10-30); Alcohol Level < 10 mg/dL (0-10); Salicylate < 0.3 mg/dL (3-10)
[2019-11-06] MEDS: LORazepam 2 mg/mL INJ 1 mL 0.5 MG IVP (16:28)
--- NOTE | 2019-11-06 17:00 | XR_ITS ---
WS: [id number] RIGHT FOOT: 3 VIEW(S) TECHNIQUE: PA, oblique and lateral. HISTORY: pain COMPARISON: 05/06/2019 Healing fracture mid diaphysis third metatarsal. Additional healed fractures in the fourth and fifth and second metatarsals. Mild degenerative changes at the first metatarsophalangeal joint. Normal tarsal/metatarsal alignment. No soft tissue abnormality or bone destruction. XR/XR foot RT min 3V* [id number] IMPRESSION: Fractures of various stages of healing in the second through fifth metatarsals. No acute findings.
[2019-11-06 17:36] VITALS: BP 126/85; PULSE 101; RESP 20; TEMP 36.7; O2SAT 99
[2019-11-06 17:47] VITALS: BP 123/90; PULSE 94; O2SAT 98
[2019-11-06 20:23] VITALS: BP 108/78; PULSE 98; RESP 16; TEMP 36.5; O2SAT 96
[2019-11-06] MEDS: nicotine 2 mg Gum BUCCAL (20:46)
[2019-11-06] MEDS: acetaminophen 325 mg Tablet 650 MG PO (20:47)
[2019-11-06] MEDS: cloZAPine 25 mg Tablet 50 MG PO (20:59)
[2019-11-06] MEDS: mirtazapine 15 mg Tablet 45 MG PO (21:00)
[2019-11-06] MEDS: propranolol 20 mg Tablet PO (21:00)
[2019-11-06] MEDS: cloZAPine 100 mg Tablet 300 MG PO (21:20)
[2019-11-07 04:23] VITALS: BP 107/76; PULSE 97; RESP 16; TEMP 36.8; O2SAT 96
[2019-11-07] MEDS: cloZAPine 100 mg Tablet 300 MG PO (08:23)
[2019-11-07] MEDS: oxybutynin 5 mg Tablet 15 MG PO (08:23)
[2019-11-07] MEDS: pantoprazole DR 40 mg Tablet PO (08:23)
[2019-11-07] MEDS: montelukast sodium 10 mg Tablet PO (08:23)
[2019-11-07] MEDS: propranolol 20 mg Tablet PO ×2 (08:23→14:25)
[2019-11-07] MEDS: fluticasone nasal spray 16gm Btl 2 SPRAY NASAL (08:24)
--- NOTE | 2019-11-07 08:26 | PC.NURSE ---
REFUSED SCHEDULED AMOXICILLIN. PT STATED IT MAKES ME SICK, I GET TO THROWING UP, I DON'T WANT IT.
[2019-11-07 09:00] VITALS: PULSE 95; RESP 17; O2SAT 96
[2019-11-07] MEDS: albuterol 8 gm MDI 2 PUFF INHALATION (09:00)
[2019-11-07 09:05] VITALS: PULSE 95
[2019-11-07 14:00] VITALS: BP 111/79; PULSE 95; RESP 20; TEMP 36.6; O2SAT 96
--- NOTE | 2019-11-07 14:59 | P.HP_ITS ---
Providers/Chief Complaint Admitting Physician: Stefan Coffman MD Chief Complaint: SI AND HALLUCINATIONS HPI NPU History of Present Illness Chief complaint: I was lonely. I called the ambulance people. I'm not hearing voices. History of present illness: Hilda Nolan is a 54-year-old woman with a histor emma diagnosis of schizophrenia who reported to her psychiatrist this morning over the telephone that I am having a lot of mental anguish and pain. The thing with my scars is coming back and there are voices in my head. According to the record, she could not tell voices that she was hearing or her over the voices of people. She is not paranoid. however she was in significant distress and there was something disturbing about the manner in which she conducted the interview. She was advised to increase her Clozaril. However eventually she was sent to the emergency room ostensibly for well-being check. at the time of my interview, she was really very vague as to what it was that we could do for her. She said that her main problem is that she is alone all the time and she is socially isolated. She denied the presence of auditory or visual hallucinations. She neither presence of suicidal or homicidal ideation. She referenced her last admission here 6 weeks ago. She was started on tramadol which seemed to provide benefit for the pain in her hands and caused her significant symptom relief. We also reviewed her health history as described below. It is all very confusing. She does have an appointment with her outpatient psychiatrist in 4 days. Clearly the outpatient psychiatrist knows her better. The patient was again depressed as to what it was that we could do to make things better for her and what probably causing her difficulty. She can return to the fact that she was lonely and socially isolated. We did problem solve with that though it appears as though her problem-solving skills are subpar. emerrgency room physician note:54 yo dense emergency room via EMS with hallucinations. She is seeing things on her hands. She is quite perplexed and disturbed by this and feels that no one is paying attention to her concerns. She is at the point where she is considered harming herself to make the hallucinations stopped. Patient has been admitted multiple times in the past for similar complaints. She denies use of any drugs or alcohol recently she denies any recent illness no fever sweats chills cough or respiratory symptoms Mental health history:the patient was last admitted to this psychiatric unit on for September 2019 and was discharged the next day. The patient states that she was diagnosed with schizophrenia and 1989 when she was admitted to the hospital in [place]. At that time she was having problems with paranoia. However she does on that she has never had problems with paranoia only if I was drinking and drugging. Not doing that now so not paranoid. She has had a total of approximately 6 hospitalizations in the past. However she cannot detail exactly why she was placed in the hospital. She had one admission in [place] and one in [place]. She has never attempted suicide. Social history:she currently lives alone but she lives in an apartment. She knows the names of people around her. She knows them personally. She spends her time watching TV but does not engage in any conversations or social activities with the people that live around her. Legal history:there are no records in the public record of [place] of criminal or following arrests. However she was engaged in a 2 year litigation regarding her guardianship. It is unclear whether guardianship was granted with the last entry being in May 2019. Past medical history:unchanged from her last admission 6 weeks ago.it is noted that she was in the emergency room 30 times in 2019 for various somatic complaints. Mental Status Exam: the patient is a disheveled female appearing approximately her stated age. She displays no approach avoidance. I contact is good. Psychomotoric activity is unremarkable. She is believed to be a reliable infor mant to the best of her ability. Information provided is internally consistent and consistent with that chart. Appearance: hygiene is fair; no gross neurological deficits., gait is unremarkable; AIMS=0 Speech: Speech is of normal rate and rhythm and easily understood. Thought processes: Thought processes are abstract though sometimes idiosyncratic. Judgment is adequate for safety. Associations: intact Psychotic processes: There is no indication of guarding or paranoia. There is no attention to the internal stimuli. Auditory and visual hallucinations are denied. Judgment: Insight is poor. Problem solving skills are adequate for safety. Orientation: The patient is oriented to person, place time and situation. Memory: no deficits noted in immediate, intermediate, or remote spheres. Attention: The patient is alert and interpersonally engaged. Language: Verbalizations are coherent. Fund of knowledge: Fund of knowledge is adequate. Affect/Mood: Affect is consistent with a mildly depressed mood. she denied suicidal ideation Affective range appropriate. Psychosis: perception unimpaired except through cognitive distortionand cognitive deficit; reality testing intact. Diagnoses:adjustment disorder with disturbance of mood Assessment: Hilda Nolan is a 54-year-old woman with limited cognitive skills who lives appears to struggle with social isolation. She also repeatedly presents to the emergency room with a minor somatic complaints. It is unclear whether though to facts are related. For patient with auditory hallucinations and presenting with no other mental health issues other than social isolation, it is difficult to justify keeping her in the hospital at this time especially when she wants to be discharged.she has an appointment with her primary psychiatrist in 4 days. Treatment plan: At her request, she was discharged to home. Her tramadol prescription was reinstated at a lower dose 50 mg twice a day when necessary.we discussed at length possible solutions to her complaint of social isolation and ways that she could increase interaction with her neighbors. She said that she would consider trying those.however, if in fact she is under guardianship and this pattern persists, it would be reasonable for her to explore the benefits of living in a assisted where she would likely thrive. Meds NPU Home Medications Medication Instructions Recorded Confirmed Type benztropine 2 mg tablet 4 mg PO BEDTIME tab 08/28/19 11/06/19 History dexlansoprazole 60 mg 60 mg PO DAILY 08/28/19 11/06/19 History capsule,biphase delayed release meloxicam 7.5 mg tablet 7.5 mg PO BID tab 08/28/19 11/06/19 History montelukast 10 mg tablet 10 mg PO DAILY 08/28/19 11/06/19 History Flonase Allergy Relief 2 spray NOSTRIL-B DAILY 09/23/19 11/06/19 History Ventolin HFA 2 puff INHALATION Q4H PRN 09/23/19 11/06/19 History clozapine [Clozaril] 300 mg PO BID 09/23/19 11/06/19 History docusate sodium 100 mg PO BID PRN 10/18/19 11/06/19 History mirtazapine 45 mg PO BEDTIME 10/18/19 11/06/19 History amoxicillin 875 mg PO BID 11/06/19 11/06/19 History oxybutynin chloride 15 mg PO DAILY 11/06/19 11/06/19 History Allergies Allergy/AdvReac Type Severity Reaction Status Date / Time ibuprofen Allergy Unknown unknown Verified 11/06/19 15:07 PFSH NPU PFSH: Social History Smoking and tobacco status: current every day smoker cigarettes Quit status (tobacco): considering quitting Second hand smoke exposure: Yes Vitals/I&O/Wt Last Vital Signs Temp 98.2 F 11/07/19 04:23 Pulse 95 11/07/19 09:05 Resp 17 11/07/19 09:00 BP 107/76 11/07/19 04:23 Pulse Ox 96 11/07/19 09:00 Weight last 48 hrs Weight 80.286 kg Data NPU : 11/06/19 15:45 11/06/19 15:45 Involuntary Hold Information 96 Hour Hold: 96 Hour Involuntary Admission: No Attestations NPU Medical Necessity Statement*: patient is being discharged Coding Level of Care Code Acute Continuous 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
[2019-11-07 15:27] VITALS: BP 107/76; PULSE 95; RESP 17; TEMP 36.8; O2SAT 96
--- NOTE | 2019-11-07 15:36 | PM.NDC ---
Reason for Visit Reason for Visit: Reason For Visit: SI AND HALLUCINATIONS Hospital Course Discharge Summary Chief complaint: I was lonely. I called the ambulance people. I'm not hearing voices. History of present illness: Hilda Nolan is a 54-year-old woman with a historian diagnosis of schizophrenia who reported to her psychiatrist this morning over the telephone that I am having a lot of mental anguish and pain. The thing with my scars is coming back and there are voices in my head. According to the record, she could not tell voices that she was hearing or her over the voices of people. She is not paranoid. however she was in significant distress and there was something disturbing about the manner in which she conducted the interview. She was advised to increase her Clozaril. However eventually she was sent to the emergency room ostensibly for well-being check. at the time of my interview, she was really very vague as to what it was that we could do for her. She said that her main problem is that she is alone all the time and she is socially isolated. She denied the presence of auditory or visual hallucinations. She neither presence of suicidal or homicidal ideation. She referenced her last admission here 6 weeks ago. She was started on tramadol which seemed to provide benefit for the pain in her hands and caused her significant symptom relief. We also reviewed her health history as described below. It is all very confusing. She does have an appointment with her outpatient psychiatrist in 4 days. Clearly the outpatient psychiatrist knows her better. The patient was again depressed as to what it was that we could do to make things better for her and what probably causing her difficulty. She can return to the fact that she was lonely and socially isolated. We did problem solve with that though it appears as though her problem-solving skills are subpar. [facility] physician note:54 yo dense emergency room via EMS with hallucinations. She is seeing things on her hands. She is quite perplexed and disturbed by this and feels that no one is paying attention to her concerns. She is at the point where she is considered harming herself to make the hallucinations stopped. Patient has been admitted multiple times in the past for similar complaints. She denies use of any drugs or alcohol recently she denies any recent illness no fever sweats chills cough or respiratory symptoms Mental health history:the patient was last admitted to this psychiatric unit on for September 2019 and was discharged the next day. The patient states that she was diagnosed with schizophrenia and 1989 when she was admitted to the hospital in [place]. At that time she was having problems with paranoia. However she does on that she has never had problems with paranoia only if I was drinking and drugging. Not doing that now so not paranoid. She has had a total of approximately 6 hospitalizations in the past. However she cannot detail exactly why she was placed in the hospital. She had one admission in [place] and one in [place]. She has never attempted suicide. Social history:she currently lives alone but she lives in an apartment. She knows the names of people around her. She knows them personally. She spends her time watching TV but does not engage in any conversations or social activities with the people that live around her. Legal history:there are no records in the public record [facility] of criminal or following arrests. However she was engaged in a 2 year litigation regarding her guardianship. It is unclear whether guardianship was granted with the last entry being in May 2019. Past medical history:unchanged from her last admission 6 weeks ago.it is noted that she was in the emergency room 30 times in 2019 for various somatic complaints. Mental Status Exam: the patient is a disheveled female appearing approximately her stated age. She displays no approach avoidance. I contact is good. Psychomotoric activity is unremarkable. She is believed to be a reliable informant to the best of her ability. Information provided is internally consistent and consistent with that chart. Appearance: hygiene is fair; no gross neurological deficits., gait is unremarkable; AIMS=0 Speech: Speech is of normal rate and rhythm and easily understood. Thought processes: Thought processes are abstract though sometimes idiosyncratic. Judgment is adequate for safety. Associations: intact Psychotic processes: There is no indication of guarding or paranoia. There is no attention to the internal stimuli. Auditory and visual hallucinations are denied. Judgment: Insight is poor. Problem solving skills are adequate for safety. Orientation: The patient is oriented to person, place time and situation. Memory: no deficits noted in immediate, intermediate, or remote spheres. Attention: The patient is alert and interpersonally engaged. Language: Verbalizations are coherent. Fund of knowledge: Fund of knowledge is adequate. Affect/Mood: Affect is consistent with a mildly depressed mood. she denied suicidal ideation Affective range appropriate. Psychosis: perception unimpaired except through cognitive distortionand cognitive deficit; reality testing intact. Diagnoses:adjustment disorder with disturbance of mood Assessment: Hilda Nolan is a 54-year-old woman with limited cognitive skills who lives appears to struggle with social isolation. She also repeatedly presents to the emergency room with a minor somatic complaints. It is unclear whether though to facts are related. For patient with auditory hallucinations and presenting with no other mental health issues other than social isolation, it is difficult to justify keeping her in the hospital at this time especially when she wants to be discharged.she has an appointment with her primary psychiatrist in 4 days. Treatment plan: At her request, she was discharged to home. Her tramadol prescription was reinstated at a lower dose 50 mg twice a day when necessary.we discussed at length possible solutions to her complaint of social isolation and ways that she could increase interaction with her neighbors. She said that she would consider trying those.however, if in fact she is under guardianship and this pattern persists, it would be reasonable for her to explore the benefits of living in a senior living where she would likely thrive. Involuntary Hold Information 96 Hour Hold: 96 Hour Involuntary Admission: No Discharge Data Data Completed and Pending: Completed Studies During Hospitalization Category Date Time Status XR foot RT min 3V * [id number] Stat Exams 11/06/19 17:00 Completed Pending at discharge Category Date Time Status UA Drug Screen [D rug Screen, Urine] Routine Lab 11/07/19 07:55 Ordered Urinalysis Stat Lab 11/06/19 15:36 Ordered Labs from last 24 hours 11/06/19 11/06/19 11/06/19 15:45 15:45 15:10 WBC 11.3 H RBC 4.24 Hgb 12.7 Hct 39.6 MCV 93.4 MCH 30.0 MCHC 32.1 RDW 14.2 Plt Count 292 MPV 9.7 Neut % (Auto) 76.0 Lymph % (Auto) 16.0 [place] % (Auto) 7.3 Eos % (Auto) 0.2 Baso % (Auto) 0.1 Neut # (Auto) 8.6 H Lymph # (Auto) 1.8 [place] # (Auto) 0.8 Eos # (Auto) 0.0 Baso # (Auto) 0.0 Nucleated RBC % (a uto) 0 Nucleated RBCs # 0.0 Sodium 138 Potassium 4.0 Chloride 102 Carbon Dioxide 25 Anion Gap 15.0 BUN 12 Creatinine 0.8 GFR Calculation 74.5 L Glucose 134 H Calculated Osmolal ity 284 L Calcium 10.1 Total Bilirubin 0.2 AST 18 ALT 25 Alkaline Phosphata se 124 H Total Protein 7.0 Albumin 4.4 Globulin 2.6 HCG, Qual Negative Salicylates < 0.3 L Acetaminophen < 5.0 L Ethyl Alcohol < 10 Vitals: Last Vital Signs Temp 98.2 F 11/07/19 15:27 Pulse 95 11/07/19 15:27 Resp 17 11/07/19 15:27 BP 107/76 11/07/19 15:27 Pulse Ox 96 11/07/19 15:27 Discharge Plan Discharge Patient Disposition: Home, Self-Care Condition: Stable Prescriptions: New tramadol 50 mg tablet 50 mg PO BID PRN (Reason: pain) Qty: 60 RF: 2 Continued benztropine 2 mg tablet 4 mg PO BEDTIME RF: 0 meloxicam 7.5 mg tablet 7.5 mg PO BID RF: 0 montelukast [Singulair] 10 mg tablet 10 mg PO DAILY RF: 0 Dexilant 60 mg capsule,biphase delayed releas 60 mg PO DAILY RF: 0 clozapine [Clozaril] 100 mg tablet 300 mg PO BID RF: 0 Flonase Allergy Relief nasal spray syringe 2 spray NOSTRIL-B DAILY RF: 0 Ventolin HFA aerosol 2 puff inhalation Q4H PRN (Reason: Shortness Of Breath) RF: 0 citalopram [Celexa] 40 mg tablet 40 mg PO DAILY 30 Days Qty: 30 RF: 0 docusate sodium 100 mg capsule 100 mg PO BID PRN (Reason: Constipation) RF: 0 mirtazapine 45 mg tablet 45 mg PO BEDTIME RF: 0 propranolol 20 mg tablet 20 mg PO TID Qty: 30 RF: 0 oxybutynin chloride 15 mg Tablet Extended Release 24hr 15 mg PO DAILY RF: 0 amoxicillin 875 mg Tablet 875 mg PO BID RF: 0 clozapine 50 mg tablet 50 mg PO .qhs Qty: 30 RF: 0 Discontinued alprazolam [Xanax] 0.5 mg tablet 0.5 mg PO BID 30 Days Qty: 60 RF: 0 tramadol 50 mg tablet 50 mg PO TID MDD 200MG PRN (Reason: Pain (Scale Score 4-6)) 15 Days Qty: 45 RF: 1 tramadol-acetaminophen 37.5-325 mg tablet 1 - 2 tab PO Q5H PRN (Reason: Pain) RF: 0 Discharge Orders: Discharge Order (Routine); Ordered 11/07/19 Ordered By: Stefan Coffman Referrals: Slim Arguello DO [Staff Physician] - 11/11/19 8:00 am Patient Instructions: Clozapine (By mouth), Tramadol (By mouth), Depression (DC) Discharge Attestations NPU Time Spent in Discharge Care*: less than 30 min Coding Level of Care Code Acute School Age Lead Teacher for 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
[2019-11-07] MEDS: acetaminophen 325 mg Tablet 650 MG PO (16:38)
== END 2019-11-07 17:52 | disposition home or self-care (01) | DRG 885 ==
LOC: ER 16:41 → NP 17:18
PROVIDERS: Admitting Provider Psychiatry & Neurology Psychiatry; Emergency Provider Family Medicine; Family Provider Family Medicine; Visit Provider Psychiatry & Neurology Psychiatry
DX: F20.9 Schizophrenia, unspecified (principal); F43.24 Adjustment disorder with disturbance of conduct; F17.210 Nicotine dependence, cigarettes, uncomplicated
CPT/HCPCS: 12345; 36415; 73630; 80053; 80307; 81025; 85025; 94640; 96372; 99214; 99284; J2060

== ENCOUNTER 2019-11-12 19:13 | Emergency (ER) | payer MEDICARE, MEDICAID, SELFPAY ==
[2019-11-12 19:14] VITALS: BP 110/78; PULSE 102; RESP 18; TEMP 36.9; O2SAT 95; BMI 32.3
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
--- NOTE | 2019-11-12 19:27 | XR_ITS ---
WS: [id number] RIBS LEFT WITH CHEST TECHNIQUE: 3 views of the left ribs with PA chest CLINICAL INFORMATION: rib pain COMPARISON: None. FINDINGS: Lungs are well aerated. Normal cardiac silhouette. No acute pulmonary infiltrates. Visualized left ri bs are normal. No visualized left rib fractures. XR/XR ribs LT mn 3V w [id number] IMPRESSION: Normal-appearing left ribs
[2019-11-12 19:37] VITALS: BP 126/84; PULSE 103; RESP 18; O2SAT 96
[2019-11-12] MEDS: HYDROcodone-acetaminophen 7.5-325 mg Tablet 1 TAB PO (19:47)
[2019-11-12 20:33] VITALS: BP 111/70; PULSE 99; RESP 16; O2SAT 95
[2019-11-12 20:35] VITALS: BP 111/70; PULSE 98; RESP 16; O2SAT 96
[2019-11-12] MEDS: HYDROcodone-acetaminophen 5-325 mg Tablet 1 TAB PO (20:50)
== END 2019-11-12 20:44 | disposition home or self-care (01) ==
PROVIDERS: Emergency Provider Physician Assistant; Family Provider Family Medicine; PCP Family Medicine
DX: R07.81 Pleurodynia (principal); F17.210 Nicotine dependence, cigarettes, uncomplicated
CPT/HCPCS: 12345; 71101; 99282; 99283

== ENCOUNTER 2019-11-15 10:02 | Emergency (ER) | payer MEDICARE, MEDICAID, SELFPAY ==
[2019-11-15 10:05] VITALS: BP 122/74; PULSE 116; RESP 16; TEMP 36.8; O2SAT 95; BMI 32.3
--- NOTE | 2019-11-15 10:22 | ED_ITS ---
HPI - General Adult General: Chief complaint: General Medical Stated complaint: LEFT SIDE RIB PAIN Time Seen by Provider: 11/15/19 10:03 Source: patient Mode of arrival: ambulatory History of Present Illness: HPI narrative: left rib pain x 3 to 4 days; low grade fever 99.1 orally today Associated symptoms: Reports cough and fevers/chills; Deny chest pain Review of Systems Const: Reports: fever (99.1 orally) Card: Denies: chest pain Resp: Reports: productive cough PFSH ED PFSH: Medical History Cigarette nicotine dependence Major depressive disorder, single episode, in full remission Other schizophrenia Other stimulant dependence, uncomplicated Social History Smoking and tobacco status: current every day smoker cigarettes Quit status (tobacco): considering quitting Second hand smoke exposure: Yes Physical Exam Const: COMMON NORMALS: no apparent distress, oriented x3, no limitations and alert GENERAL APPEARANCE: cooperative and comfortable ORIENTATION/CONSCIOUSNESS: Yes awake, Yes oriented to person, Yes oriented to place and Yes oriented to time HENMT: COMMON NORMALS: normocephalic, head/scalp atraumatic, external ears normal, EAC's normal, TM's normal bilaterally and external nose normal HEAD & SCALP: normal to inspection, normocephalic and atraumatic FACE & SINUS: normal facial exam, sinuses nontender and face symmetric NOSE: external nose normal, nares normal and no nasal discharge EXTERNAL EAR: Yes external ears normal EXTERNAL AUDITORY CANAL: EAC's normal TYMPANIC MEMBRANE: TM's normal bilaterally MOUTH: oral and palatal mucosa normal, lip normal and tongue normal THROAT: posterior oropharynx normal, tonsils normal and uvula midline Eye: COMMON NORMALS: PERRL, EOMs intact bilaterally and conjunctivae normal GENERAL EYE: normal appearance of both eyes and normal light reflex EYELID: eyelids normal CONJUNCTIVA: Yes conjunctivae normal PUPIL: Yes PERRL EOM: Yes EOM abnormal DIRECT OPHTHALMOSCOPY: Yes normal light reflex Neck/C-Spine: COMMON NORMALS: full ROM, no lymphadenopathy, supple, no meningeal signs, no JVD and thyroid normal GENERAL: Yes normal visual inspection THYROID: thyroid normal CERVICAL SPINE: Yes cervical ROM normal and Yes normal cervical lordosis Lymph: LYMPHATIC: no lymphadenopathy noted Chest: COMMONS NORMALS: inspection of chest normal and palpation of chest normal Resp: COMMON NORMALS: normal respiratory effort, no retractions and clear to auscultation bilaterally AUSCULTATION: clear to auscultation bilaterally Cardio: COMMON NORMALS: no JVD, regular rate, regular rhythm, S1 normal heart sound, S2 normal heart sound, no gallops, no clicks, no murmurs, no rub and peripheral pulses 2+ throughout RATE: regular rate RHYTHM: regular rhythm HEART SOUNDS: S1 normal and S2 normal PERIPHERAL PULSES: pulses 2+ throughout GI: COMMON NORMALS: normal to inspection, nondistended, normoactive bowel sounds, soft to palpation, non-tender and no masses PALPATION: Yes soft : COMMON NORMALS: Yes no CVA tenderness and Yes external appearance normal BLADDER/KIDNEY EXAM: Yes no CVA tenderness Back/Pelvis: COMMON NORMALS: no CVA tenderness, thoracic and lumbar spine normal to inspection, no thoracic nor lumbar tenderness and thoraco-lumbar ROM normal Extremity: COMMON NORMALS: normal to inspection, full ROM, normal capillary refill, no joint enlargement, no clubbing, cyanosis or edema, no calf tenderness and no pedal edema GENERAL: Yes normal exam except as noted Neuro: COMMON NORMALS: oriented x3, moves all extremities, no focal motor deficits, no sensory deficits noted and gait normal SENSORIUM/ORIENTATION: Yes alert, Yes oriented to person, Yes oriented to place and Yes oriented to time MENINGEAL SIGNS: Yes no meningeal signs Psych: COMMON NORMALS: mental status grossly normal, thought process normal, cooperative, affect normal, speech normal and activity/motor behavior normal SPEECH: Yes normal speech THOUGHT PROCESS: normal thought process Skin: COMMON NORMALS: no rashes or lesions noted, no wounds and skin turgor normal GENERAL SKIN EXAM: no rashes or lesions noted and turgor normal Course ED course: Pt returns to ER with similar pain that she presented with in 3 days. She states she has had a low grade fever and increased pain with inspiration. Requesting pain medications upon assessment. Reevaluation(s): Reevaluation #1: Pt xrays do not show any acute fx. Will proceed with dc. Fever was not noted while in ER. No coughing. Time: 12:19 Vital Signs: Vital signs: Vital Signs Temperature 98.3 F 11/15/19 10:05 Pulse Rate 101 H 11/15/19 11:50 Respiratory Rate 18 11/15/19 11:50 Blood Pressure 108/93 11/15/19 11:50 Pulse Oximetry 95 11/15/19 11:50 MDM - General Adult Lab Data: Labs: Lab Results 11/15/19 Range/Units 10:35 WBC 7.1 (4.0-10.0) 10^3/ uL RBC 4.03 L (4.1-5.3) 10^6/u L Hgb 11.9 (11.5-15.3) g/dL Hct 37.2 (37.0-47.0) % MCV 92.3 (81-99) fL MCH 29.5 (28.0-34.0) pg MCHC 32.0 (30.0-36.0) g/dL RDW 14.3 (12.1-15.1) % Plt Count 271 (130-400) 10^3/c mm MPV 9.6 (7.4-10.4) fL Neut % (Auto) 68.7 % Lymph % (Auto) 20.7 % Schley % (Auto) 10.3 % Eos % (Auto) 0.0 % Baso % (Auto) 0.0 % Neut # (Auto) 4.9 (1.8-7.7) 10^3/u L Lymph # (Auto) 1.5 (0.8-4.8) 10^3/u L Schley # (Auto) 0.7 (0.2-0.9) 10^3/u L Eos # (Auto) 0.0 (0.0-0.8) 10^3/u L Baso # (Auto) 0.0 (0.0-0.1) 10^3/u L Nucleated RBC % (a uto) 0 % Nucleated RBCs # 0.0 /100WBC Imaging Data^: Other Xray: Radiologist's impression: [address] [address] XRay Report Signed Patient: Hilda Nolan V Unit #: [id number] : 1965 Age/Sex: 54 / F ADM Date: 11/15/19 Loc: ER Room/Bed: Attending Dr: Ordering Provider/Ordering MD: Ellen Arechiga PRODUCTION CONTROL ANALYST Date of Service: 11/15/19 Procedure(s): XR ribs LT 2V* [id number] Accession Number(s): [id number] Report Number: [id number] PROCEDURE INFORMATION: Exam: XR Left Ribs Exam date and time: 11/15/2019 11:27 AM Age: 54 years old Clinical indication: Other: Left rib; Patient HX: C/O L sided rib pain x 3 days; Additional info: Cxr abnormal TECHNIQUE: Imaging protocol: XR Left ribs. Views: 2 views. COMPARISON: CR XR ribs LT mn 3V w CXR1V [id number] 11/12/2019 7:36 PM FINDINGS: Bones/joints: Contour irregularity is again identified involving left 5th through 9th ribs, without acute fracture lines, suggesting old fractures. Soft tissues: Unremarkable as visualized. XR/XR ribs LT 2V* [id number] IMPRESSION: Contour irregularity is again identified involving left 5th through 9th ribs, without acute fracture lines, suggesting old fractures. Dictated By: Gera Lanier MD Signed By: Gera Lanier MD Signed Date/Time: 11/15/19 1155 CXR: Radiologist's impression: [place] [address] XRay Report Signed Patient: Hilda Nolan V Unit #: [id number] : 1965 Age/Sex: 54 / F ADM Date: 11/15/19 Loc: ER Room/Bed: Attending Dr: Ordering Provider/Ordering MD: Ellen Arechiga PRODUCTION CONTROL ANALYST Date of Service: 11/15/19 Procedure(s): XR chest 1V portable [id number] Accession Number(s): [id number] Report Number: [id number] PROCEDURE INFORMATION: Exam: XR Chest, 1 View Exam date and time: 11/15/2019 10:33 AM Age: 54 years old Clinical indication: Chest wall pain; Patient HX: C/O pain L lower rib area; Additional info: SOB TECHNIQUE: Imaging protocol: XR of the chest Views: 1 view. COMPARISON: CR XR ribs LT mn 3V w CXR1V [id number] 11/12/2019 7:36 PM FINDINGS: Lungs: Hyperinflation and interstitial prominence. Pleural space: No pneumothorax or pleural effusion. Heart/Mediastinum: No cardiomegaly. Bones/joints: Subtle contour irregularity about the left 6th and 7th ribs, which can be better evaluated with dedicated left rib radiographs, as clinically indicated. XR/XR chest 1V portable [id number] IMPRESSION: Subtle contour irregularity about the left 6th and 7th ribs, which can be better evaluated with dedicated left rib radiographs, as clinically indicated. Dictated By: Gera Lanier MD Signed By: Gera Lanier MD Signed Date/Time: 11/15/19 1112 DD/ 1111 Discharge Plan Discharge Patient Disposition: Home, Self-Care Clinical Impression: Rib pain on left side Condition: Stable Prescriptions: New cyclobenzaprine 10 mg tablet 10 mg PO BID PRN (Reason: muscle spasm) Qty: 10 RF: 0 No Action benztropine 2 mg tablet 4 mg PO BEDTIME RF: 0 meloxicam 7.5 mg tablet 7.5 mg PO BID RF: 0 montelukast [Singulair] 10 mg tablet 10 mg PO DAILY RF: 0 Dexilant 60 mg capsule,biphase delayed releas 60 mg PO DAILY RF: 0 clozapine [Clozaril] 100 mg tablet 300 mg PO BID RF: 0 Flonase Allergy Relief nasal spray syringe 2 spray NOSTRIL-B DAILY RF: 0 Ventolin HFA aerosol 2 puff inhalation Q4H PRN (Reason: Shortness Of Breath) RF: 0 citalopram [Celexa] 40 mg tablet 40 mg PO DAILY 30 Days Qty: 30 RF: 0 nicotine 14 mg/24 hr patch 24 hour 1 patch transdermal Q24H RF: 0 Xanax 0.5 mg Tablet 0.5 mg PO BID RF: 0 clozapine 50 mg tablet 50 mg PO BEDTIME RF: 0 docusate sodium 100 mg capsule 100 mg PO BID PRN (Reason: Constipation) RF: 0 mirtazapine 45 mg tablet 45 mg PO BEDTIME RF: 0 oxybutynin chloride 15 mg Tablet Extended Release 24hr 15 mg PO DAILY RF: 0 tramadol 50 mg tablet 50 mg PO BID PRN (Reason: pain) Qty: 60 RF: 2 Referrals: Grecia Kuhn MD [Primary Care Provider] - Discharge Diet: Usual diet Discharge Activity: Increase activity as tolerated Activity Restrictions/Additional Instructions: Please continue to ice and use heating pad for the area of pain that you have noted. Follow up with Dr. Kuhn on Sunday as scheduled. 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
--- NOTE | 2019-11-15 10:31 | XRR_ITS ---
PROCEDURE INFORMATION: Exam: XR Chest, 1 View Exam date and time: 11/15/2019 10:33 AM Age: 54 years old Clinical indication: Chest wall pain; Patient HX: C/O pain L lower rib area; Additional info: SOB TECHNIQUE: Imaging protocol: XR of the chest Views: 1 view. COMPARISON: CR XR ribs LT mn 3V w CXR1V [id number] 11/12/2019 7:36 PM FINDINGS: Lungs: Hyperinflation and interstitial prominence. Pleural space: No pneumothorax or pleural effusion. Heart/Mediastinum: No cardiomegaly. Bones/joints: Subtle contour irregularity about the left 6th and 7th ribs, which can be better evaluated with dedicated left rib radiographs, as clinically indicated. XR/XR chest 1V portable [id number] IMPRESSION: Subtle contour irregularity about the left 6th and 7th ribs, which can be better evaluated with dedicated left rib radiographs, as clinically indicated.
[2019-11-15 10:42] VITALS: PULSE 104; RESP 20; O2SAT 94
[2019-11-15 10:42] LABS: Hematocrit 37.2 % (37.0-47.0); Hemoglobin 11.9 g/dL (11.5-15.3); Lymphocytes # 1.5 10^3/uL (0.8-4.8); Lymphocytes % 20.7 %; Mean Corpuscular Hemoglobin 29.5 pg (28.0-34.0); Mean Corpuscular Volume 92.3 fL (81-99); Mean Platelet Volume 9.6 fL (7.4-10.4); Monocytes # 0.7 10^3/uL (0.2-0.9); Monocytes % 10.3 %; Neutrophils # 4.9 10^3/uL (1.8-7.7); Neutrophils % 68.7 %; Nucleated Red Blood Cells % 0 %; Platelet Count 271 10^3/cmm (130-400); Red Blood Count 4.03 10^6/uL (4.1-5.3); Red Cell Distribution Width 14.3 % (12.1-15.1); White Blood Count 7.1 10^3/uL (4.0-10.0)
[2019-11-15] MEDS: ipratropium 0.5 mg/2.5 mL Neb INHALATION (10:42)
[2019-11-15] MEDS: acetaminophen-codeine 300-30mg Tablet 1 TAB PO (10:43)
[2019-11-15 10:46] VITALS: PULSE 104
--- NOTE | 2019-11-15 11:26 | XRR_ITS ---
PROCEDURE INFORMATION: Exam: XR Left Ribs Exam date and time: 11/15/2019 11:27 AM Age: 54 years old Clinical indication: Other: Left rib; Patient HX: C/O L sided rib pain x 3 days; Additional info: Cxr abnormal TECHNIQUE: Imaging protocol: XR Left ribs. Views: 2 views. COMPARISON: CR XR ribs LT mn 3V w CXR1V [id number] 11/12/2019 7:36 PM FINDINGS: Bones/joints: Contour irregularity is again identified involving left 5th through 9th ribs, without acute fracture lines, suggesting old fractures. Soft tissues: Unremarkable as visualized. XR/XR ribs LT 2V* [id number] IMPRESSION: Contour irregularity is again identified involving left 5th through 9th ribs, without acute fracture lines, suggesting old fractures.
[2019-11-15 11:50] VITALS: BP 108/93; PULSE 101; RESP 18; O2SAT 95
[2019-11-15 12:23] VITALS: BP 114/82; PULSE 103; RESP 16; O2SAT 95
== END 2019-11-15 12:23 | disposition home or self-care (01) ==
PROVIDERS: Emergency Provider Nurse Practitioner Family; Family Provider Family Medicine; PCP Family Medicine
DX: R07.81 Pleurodynia (principal); F17.210 Nicotine dependence, cigarettes, uncomplicated
CPT/HCPCS: 12345; 71045; 71100; 85025; 94640; 99281; 99283; J7611; J7644

== ENCOUNTER 2019-11-21 19:17 | Emergency (ER) | payer MEDICARE, MEDICAID, SELFPAY ==
[2019-11-21 19:28] VITALS: BP 117/84; PULSE 108; RESP 18; TEMP 36.4; O2SAT 97; BMI 32.3
== END 2019-11-21 20:57 | disposition left against medical advice (07) ==
PROVIDERS: Emergency Provider Nurse Practitioner Family; Family Provider Family Medicine; PCP Family Medicine
DX: Z53.21 Procedure and treatment not carried out due to patient leaving prior to being seen by health care provider (principal)
CPT/HCPCS: 99281

== ENCOUNTER 2019-11-23 16:01 | Emergency (ER) | payer MEDICARE, MEDICAID, SELFPAY ==
[2019-11-23 16:09] VITALS: BMI 32.3
--- NOTE | 2019-11-23 16:11 | XR_ITS ---
WS: [id number] XR chest 2V* [id number] REASON FOR EXAM: pain FINDINGS: The heart and mediastinal interfaces normal. The lung viramontes are well aerated. No pneumonia, pleural effusion, pulmonary edema, pulmonary pneumoth orax or mass effect. The hilum and apices normal. No osseous abnormalities. There is considerable fecal stasis seen in the colon. XR/XR chest 2V* [id number] IMPRESSION: Negative chest for active pathology
[2019-11-23 16:12] VITALS: BP 125/84; PULSE 106; RESP 20; TEMP 36.7; O2SAT 96
--- NOTE | 2019-11-23 16:13 | W.ED.CHESTPA ---
HPI - Chest Pain General: Chief Complaint: Abdominal Pain Stated Complaint: left sided pain Time Seen by Provider: 11/23/19 16:09 Source: patient Mode of arrival: ambulatory Limitations: no limitations History of Present Illness: HPI narrative: 54-year-old female long history of chronic pain states she had left-sided chest wall pain and left abdominal pain for the last month. Patient's been seen here multiple times for this. She denies any worsening improving factors. States pain is sharp in nature. Denies any vomiting or diarrhea. Onset (ago): week(s) Pain location: lateral Severity: mild Quality: sharp Relieving factors: nothing Exacerbating factors: nothing PFSH ED PFSH: Medical History Cigarette nicotine dependence Major depressive disorder, single episode, in full remission Other schizophrenia Other stimulant dependence, uncomplicated Social History Smoking and tobacco status: current every day smoker cigarettes Quit status (tobacco): considering quitting Second hand smoke exposure: Yes Physical Exam Const: COMMON NORMALS: no apparent distress, oriented x3 and healthy appearing HENMT: COMMON NORMALS: normocephalic and head/scalp atraumatic HEAD & SCALP: normocephalic and atraumatic Eye: COMMON NORMALS: PERRL and EOMs intact bilaterally PUPIL: Yes PERRL Neck/C-Spine: COMMON NORMALS: full ROM and supple Chest: COMMONS NORMALS: inspection of chest normal OTHER: Tender over left chest wall Resp: COMMON NORMALS: normal respiratory effort, no retractions, no use of accessory muscles and clear to auscultation bilaterally AUSCULTATION: clear to auscultation bilaterally Cardio: COMMON NORMALS: regular rate, regular rhythm and no murmurs RATE: regular rate RHYTHM: regular rhythm GI: COMMON NORMALS: normal to inspection, nondistended, normoactive bowel sounds, soft to palpation, non-tender and no masses PALPATION: Yes soft Extremity: COMMON NORMALS: normal to inspection and full ROM Neuro: COMMON NORMALS: oriented x3, moves all extremities and no focal motor deficits Psych: COMMON NORMALS: mental status grossly normal, thought process normal and cooperative THOUGHT PROCESS: normal thought process Skin: COMMON NORMALS: no rashes or lesions noted and no wounds GENERAL SKIN EXAM: no rashes or lesions noted Course Vital Signs: Vital signs: Vital Signs Temperature 98.0 F 11/23/19 16:12 Pulse Rate 106 H 11/23/19 16:12 Respiratory Rate 20 H 11/23/19 16:12 Blood Pressure 125/84 11/23/19 16:12 Pulse Oximetry 96 11/23/19 16:12 MDM - Chest Pain MDM Narrative: Medical decision making narrative: Patient presents here with abdominal pain that is been chronic in nature. CT shows constipation and she is to take MiraLAX. Lab work is normal and CT is otherwise normal. She has no signs of acute surgical cause. Patient's x-ray is normal. Patient is stable for discharge and return if worsening. Lab Data: Labs: Lab Results 11/23/19 11/23/19 Range/Units 16:25 16:25 WBC 7.8 (4.0-10.0) 10^3/ uL RBC 4.05 L (4.1-5.3) 10^6/u L Hgb 11.8 (11.5-15.3) g/dL Hct 37.0 (37.0-47.0) % MCV 91.4 (81-99) fL MCH 29.1 (28.0-34.0) pg MCHC 31.9 (30.0-36.0) g/dL RDW 14.0 (12.1-15.1) % Plt Count 258 (130-400) 10^3/c mm MPV 9.1 (7.4-10.4) fL Neut % (Auto) 68.3 % Lymph % (Auto) 21.6 % Whitley % (Auto) 9.6 % Eos % (Auto) 0.1 % Baso % (Auto) 0.1 % Neut # (Auto) 5.3 (1.8-7.7) 10^3/u L Lymph # (Auto) 1.7 (0.8-4.8) 10^3/u L Whitley # (Auto) 0.8 (0.2-0.9) 10^3/u L Eos # (Auto) 0.0 (0.0-0.8) 10^3/u L Baso # (Auto) 0.0 (0.0-0.1) 10^3/u L Nucleated RBC % (a uto) 0 % Nucleated RBCs # 0.0 /100WBC Sodium 138 (136-145) mmol/L Potassium 4.1 (3.5-5.1) mmol/L Chloride 100 (98-107) mmol/L Carbon Dioxide 24 (22-29) mmol/L Anion Gap 18.1 (5-19) BUN 9 (6-20) mg/dL Creatinine 0.7 (0.5-0.9) mg/dL GFR Calculation 86.9 L (90-130) mL/min Glucose 98 (65-115) mg/dL Calculated Osmolal ity 282 L (285-295) mOsm/k g Calcium 9.3 (8.5-10.5) mg/dL Total Bilirubin 0.2 (0.15-1.2) mg/dL AST 18 (0-32) U/L ALT 18 (0-33) U/L Alkaline Phosphata se 126 H (35-105) IU/L Total Protein 7.1 (6.6-8.7) g/dL Albumin 4.2 (3.5-5.2) g/dL Globulin 2.9 (1.3-4.6) g/dL Lipase 28 (13-60) U/L Imaging Data^: CT Abd/Pel: Radiologist's impression: [place] [address] CT Scan Report Signed Patient: Hilda Nolan V Unit #: [id number] : 1965 Age/Sex: 54 / F ADM Date: 11/23/19 Loc: ER Room/Bed: Attending Dr: Ordering Provider/Ordering MD: Kade Smith MD Date of Service: 11/23/19 Procedure(s): CT abdomen pelvis w con* [id number] Accession Number(s): [id number] Report Number: [id number] PROCEDURE INFORMATION: Exam: CT Abdomen And Pelvis With Contrast Exam date and time: 11/23/2019 5:06 PM Age: 54 years old Clinical indication: Abdominal pain; Localized; Lower; Additional info: Abd pain TECHNIQUE: Imaging protocol: Computed tomography of the abdomen and pelvis with intravenous contrast. Radiation optimization: All CT scans at this facility use at least one of these dose optimization techniques: automated exposure control; mA and/or kV adjustment per patient size (includes targeted exams where dose is matched to clinical indication); or iterative reconstruction. Contrast material: OMNI 300; Contrast volume: 95 ml; Contrast route: LT AC; COMPARISON: CT abdomen pelvis w con* [id number] 06/20/2019 8:36 AM RADIATION DOSE METRICS: Total DLP: 1231.19 mGy-cm FINDINGS: Lungs: Limited assessment lung bases without visible evidence of active cardiopulmonary process. Liver: Unremarkable. No mass. Gallbladder and bile ducts: Normal. No calcified stones. No ductal dilation. Pancreas: Normal. No ductal dilation. Spleen: Normal. No splenomegaly. Adrenals: Normal. No mass. Kidneys and ureters: Stable tiny cortical cyst equator left kidney benign characteristics. No hydronephrosis. Stomach and bowel: Very heavy fecal residue consistent with constipation/obstipation. Nonobstructive bowel pattern. No visible adynamic or reactive ileus. Appendix: The appendix is noninflamed. Intraperitoneal space: Unremarkable. No free air. No significant fluid collection. Vasculature: The abdominal aorta is nonaneurysmal. Mild arterial sclerotic disease. Lymph nodes: Unremarkable. No enlarged lymph nodes. Bladder: Unremarkable as visualized. Reproductive: Unremarkable as visualized. Bones/joints: Unremarkable. No acute fracture. Soft tissues: Unremarkable. Other findings: Obesity. CT/CT abdomen pelvis w con* [id number] IMPRESSION: 1. Constipation. 2. No visible evidence for acute abdominal or pelvic pathologic process. CXR: Attestation: I personally reviewed and interpreted this imaging study as follows: My impression: No acute abnormality Discharge Plan Discharge Patient Disposition: Home, Self-Care Clinical Impression: Constipation Qualifiers: Constipation type: unspecified constipation type Qualified Code(s): K59.00 - Constipation, unspecified Condition: Stable Prescriptions: New Miralax 17 gram/dose powder 17 gm PO DAILY PRN (Reason: constipation) Qty: 119 RF: 0 No Action benztropine 2 mg tablet 4 mg PO BEDTIME RF: 0 meloxicam 7.5 mg tablet 7.5 mg PO BID RF: 0 montelukast [Singulair] 10 mg tablet 10 mg PO DAILY RF: 0 Dexilant 60 mg capsule,biphase delayed releas 60 mg PO DAILY RF: 0 clozapine [Clozaril] 100 mg tablet 300 mg PO BID RF: 0 Flonase Allergy Relief nasal spray syringe 2 spray NOSTRIL-B DAILY RF: 0 Ventolin HFA aerosol 2 puff inhalation Q4H PRN (Reason: Shortness Of Breath) RF: 0 citalopram [Celexa] 40 mg tablet 40 mg PO DAILY 30 Days Qty: 30 RF: 0 nicotine 14 mg/24 hr patch 24 hour 1 patch transdermal Q24H RF: 0 Xanax 0.5 mg Tablet 0.5 mg PO BID RF: 0 clozapine 50 mg tablet 50 mg PO BEDTIME RF: 0 cyclobenzaprine 10 mg tablet 10 mg PO BID PRN (Reason: muscle spasm) Qty: 10 RF: 0 docusate sodium 100 mg capsule 100 mg PO BID PRN (Reason: Constipation) RF: 0 mirtazapine 45 mg tablet 45 mg PO BEDTIME RF: 0 oxybutynin chloride 15 mg Tablet Extended Release 24hr 15 mg PO DAILY RF: 0 tramadol 50 mg tablet 50 mg PO BID PRN (Reason: pain) Qty: 60 RF: 2 Discharge Orders: Discharge Order (Routine); Ordered 11/23/19 Ordered By: Kade Smith Referrals: Grecia Kuhn MD [Primary Care Provider] - 1-3 days Discharge Diet: Advance as tolerated Discharge Activity: Resume usual activity Discharge Date/Time: 11/23/19 18:04 Coding Level of Care Code ED Accessibility Lift Technician for [place] Fwd Exam Comprehensive
[2019-11-23 16:31] LABS: Basophils % 0.1 %; Eosinophils % 0.1 %; Hemoglobin 11.8 g/dL (11.5-15.3); Lymphocytes # 1.7 10^3/uL (0.8-4.8); Lymphocytes % 21.6 %; Mean Corpuscular HGB Conc 31.9 g/dL (30.0-36.0); Mean Corpuscular Hemoglobin 29.1 pg (28.0-34.0); Mean Corpuscular Volume 91.4 fL (81-99); Mean Platelet Volume 9.1 fL (7.4-10.4); Monocytes # 0.8 10^3/uL (0.2-0.9); Monocytes % 9.6 %; Neutrophils # 5.3 10^3/uL (1.8-7.7); Neutrophils % 68.3 %; Nucleated Red Blood Cells % 0 %; Platelet Count 258 10^3/cmm (130-400); Red Blood Count 4.05 10^6/uL (4.1-5.3); White Blood Count 7.8 10^3/uL (4.0-10.0)
--- NOTE | 2019-11-23 16:43 | CTR_ITS ---
PROCEDURE INFORMATION: Exam: CT Abdomen And Pelvis With Contrast Exam date and time: 11/23/2019 5:06 PM Age: 54 years old Clinical indication: Abdominal pain; Localized; Lower; Additional info: Abd pain TECHNIQUE: Imaging protocol: Computed tomography of the abdomen and pelvis with intravenous contrast. Radiation optimization: All CT scans at this facility use at least one of these dose optimization techniques: automated exposure control; mA and/or kV adjustment per patient size (includes targeted exams where dose is matched to clinical indication); or iterative reconstruction. Contrast material: OMNI 300; Contrast volume: 95 ml; Contrast route: LT AC; COMPARISON: CT abdomen pelvis w con* [id number] 06/20/2019 8:36 AM RADIATION DOSE METRICS: Total DLP: 1231.19 mGy-cm FINDINGS: Lungs: Limited assessment lung bases without visible evidence of active cardiopulmonary process. Liver: Unremarkable. No mass. Gallbladder and bile ducts: Normal. No calcified stones. No ductal dilation. Pancreas: Normal. No ductal dilation. Spleen: Normal. No splenomegaly. Adrenals: Normal. No mass. Kidneys and ureters: Stable tiny cortical cyst equator left kidney benign characteristics. No hydronephrosis. Stomach and bowel: Very heavy fecal residue consistent with constipation/obstipation. Nonobstructive bowel pattern. No visible adynamic or reactive ileus. Appendix: The appendix is noninflamed. Intraperitoneal space: Unremarkable. No free air. No significant fluid collection. Vasculature: The abdominal aorta is nonaneurysmal. Mild arterial sclerotic disease. Lymph nodes: Unremarkable. No enlarged lymph nodes. Bladder: Unremarkable as visualized. Reproductive: Unremarkable as visualized. Bones/joints: Unremarkable. No acute fracture. Soft tissues: Unremarkable. Other findings: Obesity. CT/CT abdomen pelvis w con* [id number] IMPRESSION: 1. Constipation. 2. No visible evidence for acute abdominal or pelvic pathologic process. Radiation Dose CTDIVOL = (mGy): DLP = 1231.19 (mGy-cm)
[2019-11-23 16:44] LABS: Alanine Aminotransferase 18 U/L (0-33); Albumin Level 4.2 g/dL (3.5-5.2); Alkaline Phosphatase 126 IU/L (35-105); Anion Gap 18.1 (5-19); Aspartate Amino Transferase 18 U/L (0-32); Blood Urea Nitrogen 9 mg/dL (6-20); Calcium 9.3 mg/dL (8.5-10.5); Carbon Dioxide 24 mmol/L (22-29); Chloride 100 mmol/L (98-107); Globulin 2.9 g/dL (1.3-4.6); Glomerular Filtration Rate 86.9 mL/min (90-130); Glucose 98 mg/dL (65-115); Lipase 28 U/L (13-60); Osmolality Calculated 282 mOsm/kg (285-295); Potassium 4.1 mmol/L (3.5-5.1); Sodium 138 mmol/L (136-145); Total Bilirubin 0.2 mg/dL (0.15-1.2); Total Protein 7.1 g/dL (6.6-8.7)
[2019-11-23] MEDS: iohexol 300 mg/mL 100 mL Btl IV (17:45)
== END 2019-11-23 18:04 | disposition home or self-care (01) ==
PROVIDERS: Emergency Provider Emergency Medicine; Family Provider Family Medicine; PCP Family Medicine
DX: K59.00 Constipation, unspecified (principal); F17.210 Nicotine dependence, cigarettes, uncomplicated
CPT/HCPCS: 12345; 36415; 71046; 74177; 80053; 83690; 85025; 96374; 99281; 99283; Q9967

== ENCOUNTER → 2019-11-24 07:22 | Outpatient (BNVA) | payer MEDICARE, MEDICAID, SELFPAY | PROVIDERS: Family Provider Family Medicine; PCP Family Medicine; Visit Provider Psychiatry & Neurology Psychiatry | DX: F32.5 Major depressive disorder, single episode, in full remission (principal); F20.89 Other schizophrenia; F17.210 Nicotine dependence, cigarettes, uncomplicated; K59.00 Constipation, unspecified; F41.1 Generalized anxiety disorder | CPT/HCPCS: 99214 ==

== ENCOUNTER 2019-12-16 19:05 | Emergency (ER) | payer MEDICARE, MEDICAID, SELFPAY ==
[2019-12-16 19:32] VITALS: BP 120/78; PULSE 109; RESP 18; TEMP 36.7; O2SAT 96; BMI 32.3
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
[2019-12-16 20:52] VITALS: BP 120/78; PULSE 109; RESP 18; TEMP 36.7; O2SAT 96
== END 2019-12-16 20:53 | disposition home or self-care (01) ==
PROVIDERS: Emergency Provider Emergency Medicine; PCP Family Medicine
DX: T23.021A Burn of unspecified degree of single right finger (nail) except thumb, initial encounter (principal); X10.2XXA Contact with fats and cooking oils, initial encounter
CPT/HCPCS: 12345; 99281; 99282

== ENCOUNTER → 2019-12-17 08:52 | Outpatient (BNVA) | payer MEDICARE, MEDICAID, SELFPAY | PROVIDERS: PCP Family Medicine; Visit Provider Psychiatry & Neurology Psychiatry | DX: F20.89 Other schizophrenia (principal) | CPT/HCPCS: 85007; 85027 ==

== ENCOUNTER 2019-12-23 07:34 | Emergency (ER) | payer MEDICARE, MEDICAID, SELFPAY ==
[2019-12-23 07:42] VITALS: BP 117/79; PULSE 107; RESP 18; O2SAT 96; BMI 32.3
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
[2019-12-23 08:05] VITALS: BP 131/80; PULSE 117; RESP 18; O2SAT 96
[2019-12-23 08:07] LABS: Basophils % 0.1 %; Hematocrit 38.2 % (37.0-47.0); Hemoglobin 12.4 g/dL (11.5-15.3); Lymphocytes # 1.4 10^3/uL (0.8-4.8); Lymphocytes % 16.1 %; Mean Corpuscular HGB Conc 32.5 g/dL (30.0-36.0); Mean Corpuscular Hemoglobin 29.2 pg (28.0-34.0); Mean Corpuscular Volume 89.9 fL (81-99); Mean Platelet Volume 9.2 fL (7.4-10.4); Monocytes # 0.7 10^3/uL (0.2-0.9); Monocytes % 8.3 %; Neutrophils # 6.4 10^3/uL (1.8-7.7); Neutrophils % 74.9 %; Nucleated Red Blood Cells % 0 %; Platelet Count 280 10^3/cmm (130-400); Red Blood Count 4.25 10^6/uL (4.1-5.3); Red Cell Distribution Width 13.8 % (12.1-15.1); White Blood Count 8.5 10^3/uL (4.0-10.0)
[2019-12-23] MEDS: LORazepam 1 mg Tablet 2 MG PO (08:07)
[2019-12-23 08:35] LABS: Alanine Aminotransferase 21 U/L (0-33); Albumin Level 4.4 g/dL (3.5-5.2); Alkaline Phosphatase 127 IU/L (35-105); Anion Gap 16.1 (5-19); Aspartate Amino Transferase 18 U/L (0-32); Blood Urea Nitrogen 9 mg/dL (6-20); Carbon Dioxide 25 mmol/L (22-29); Chloride 101 mmol/L (98-107); Globulin 2.7 g/dL (1.3-4.6); Glomerular Filtration Rate 103.8 mL/min (90-130); Glucose 142 mg/dL (65-115); Osmolality Calculated 284 mOsm/kg (285-295); Potassium 4.1 mmol/L (3.5-5.1); Sodium 138 mmol/L (136-145); Thyroid Stimulating Hormone 2.03 uIU/mL (0.27-4.20); Total Bilirubin 0.2 mg/dL (0.15-1.2); Total Protein 7.1 g/dL (6.6-8.7)
[2019-12-23 08:36] LABS: Acetaminophen < 5.0 ug/mL (10-30); Alcohol Level < 10 mg/dL (0-10); Salicylate < 0.3 mg/dL (3-10)
[2019-12-23 08:37] LABS: Add Urine Microscopic? NO
[2019-12-23 08:47] LABS: Bilirubin Urine Neg (NEGATIVE); Blood Urine Neg (Negative); Glucose Urine UA Norm (Normal); Ketones Urine Negative (Negative); Leukocyte Esterase Urine Negative (Negative); Nitrate Urine Negative (Negative); Protein Urine Neg (Negative); Specific Gravity, Urine 1.005 (1.005-1.030); Urine Appearance Clear (CLEAR); Urine Color Yellow (Yellow); Urobilinogen Urine Norm (Negative); pH Urine 7 (5-7)
[2019-12-23 08:52] LABS: Amphetamines Screen Urine Negative (Negative); Barbiturates Screen Urine Negative (Negative); Benzodiazepines Screen Urine Positive (Negative); Cocaine Screen Urine Negative (Negative); Opiate Screen Urine Negative (Negative); PCP Screen Urine Negative (Negative); THC Screen Urine Negative (Negative)
[2019-12-23] MEDS: acetaminophen 500 mg Tablet 1000 MG PO (09:53)
[2019-12-23 09:55] VITALS: BP 111/77; PULSE 99; RESP 20; O2SAT 95
[2019-12-23 10:21] VITALS: BP 115/89; PULSE 78; RESP 18; O2SAT 97
--- NOTE | 2019-12-23 10:24 | PC.NURSE ---
Upon calling report to [facility], nurse stated she was receiving two pts back to back. I will wait 20-30minutes in between pt drop off.
== END 2019-12-23 10:55 | disposition left against medical advice (07) ==
LOC: ER 09:30 → NP 10:48
PROVIDERS: Emergency Provider Family Medicine; PCP Family Medicine
DX: F41.9 Anxiety disorder, unspecified (principal); F33.2 Major depressive disorder, recurrent severe without psychotic features; Z53.21 Procedure and treatment not carried out due to patient leaving prior to being seen by health care provider; F17.210 Nicotine dependence, cigarettes, uncomplicated
CPT/HCPCS: 12345; 36415; 80053; 80306; 80307; 81003; 84443; 85025; 99284

== ENCOUNTER → 2019-12-24 07:36 | Outpatient (BNVA) | payer MEDICARE, MEDICAID, SELFPAY | PROVIDERS: PCP Family Medicine; Visit Provider Psychiatry & Neurology Psychiatry | DX: F32.5 Major depressive disorder, single episode, in full remission (principal); F20.89 Other schizophrenia; F17.210 Nicotine dependence, cigarettes, uncomplicated; F41.1 Generalized anxiety disorder | CPT/HCPCS: 99213 ==

== ENCOUNTER → 2019-12-25 13:27 | Outpatient (BNVA) | payer MEDICARE, MEDICAID, SELFPAY | PROVIDERS: Family Provider Family Medicine; PCP Family Medicine; Referring Provider Specialist; Visit Provider Specialist | DX: M79.7 Fibromyalgia (principal); F17.210 Nicotine dependence, cigarettes, uncomplicated | CPT/HCPCS: 99204 ==

== ENCOUNTER 2019-12-25 18:22 | Emergency (ER) | payer MEDICARE, MEDICAID, SELFPAY ==
[2019-12-25 18:32] VITALS: BP 140/106; PULSE 121; RESP 20; TEMP 37; O2SAT 97; BMI 32.3
--- NOTE | 2019-12-25 18:44 | W.ED.GENADLT ---
HPI - General Adult General: Chief complaint: General Medical Stated complaint: PAIN/ANXIETY Time Seen by Provider: 12/25/19 18:27 Source: patient Mode of arrival: ambulatory Limitations: no limitations History of Present Illness: HPI narrative: Hilda is a 54-year-old female who has a history of chronic pain states she has been having foot pain along with leg pain. She states that her pain is sharp in nature. She states her pain management doctor has her on gabapentin she states that does not work feel with it works for her is tramadol. She states she is under stress due to her pain. She denies any suicidality or homicidality. Associated symptoms: Deny chest pain, dyspnea, headache(s), nausea, rash or vomiting Review of Systems Const: Denies: fever(s), chills, body aches or change in appetite Eyes: Denies: blurry vision or eye discomfort ENMT: Denies: throat pain or dental pain Card: Denies: chest pain Resp: Denies: dyspnea GI: Denies: abdominal pain, nausea, vomiting or diarrhea : Denies: dysuria Musc: Denies: neck pain or back pain Skin/Breast: Denies: rash Neuro: Denies: headache(s) Psych: Denies: depression Trevon/Lymph: Denies: easy bruising All/Imm: Denies: urticaria PFSH ED PFSH: Medical History (Updated 12/25/19 @ 19:35 by Kade Smith MD) Cigarette nicotine dependence Major depressive disorder, single episode, in full remission 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 Other schizophrenia Other stimulant dependence, uncomplicated Family History Denies family history of Diabetes CAD (coronary artery disease) Cancer Hypertension Stroke Social History Smoking and tobacco status: current every day smoker cigarettes [ Other cigarette details: 5 daily ] Quit status (tobacco): considering quitting Second hand smoke exposure: Yes Alcohol intake: former History of recent travel: No Physical Exam Const: COMMON NORMALS: no acute distress, patient oriented x3 and healthy appearing HENMT: COMMON NORMALS: normocephalic and atraumatic HEAD & SCALP: normocephalic and atraumatic Eye: COMMON NORMALS: Equal, round and reactive pupils present and EOMs intact bilaterally PUPIL: Yes Equal, round and reactive pupils present Neck/C-Spine: COMMON NORMALS: full ROM and supple Chest: COMMONS NORMALS: normal inspection of the chest and normal palpation of entire chest wall Resp: COMMON NORMALS: normal respiratory effort, No retractions, No use of accessory muscles and clear to auscultation bilaterally AUSCULTATION: clear to auscultation bilaterally Cardio: COMMON NORMALS: regular rhythm and No murmurs present (Cardio) RATE: tachycardic RHYTHM: regular rhythm GI: COMMON NORMALS: Normal to inspection, nondistended, normoactive bowel sounds present, Soft to palpation, non-tender and no masses PALPATION: Yes Soft to palpation Extremity: COMMON NORMALS: normal to inspection and full ROM Neuro: COMMON NORMALS: patient oriented x3, moves all extremities and no focal motor deficits Psych: COMMON NORMALS: mental status grossly normal, Normal thought process present and cooperative THOUGHT PROCESS: Normal thought process present Skin: COMMON NORMALS: no rashes or lesions noted and no wounds GENERAL SKIN EXAM: no rashes or lesions noted Course Vital Signs: Vital signs: Vital Signs Temperature 98.6 F 12/25/19 18:32 Pulse Rate 72 12/25/19 20:05 Respiratory Rate 18 12/25/19 20:05 Blood Pressure 141/96 12/25/19 20:05 Pulse Oximetry 96 12/25/19 20:05 MDM - General Adult MDM Narrative: Medical decision making narrative: Patient presents here with chronic pain requesting tramadol. She also requested an psych admission. I had her teleconference with Dr. Martinez and she is not a candidate to be admitted. She is not suicidal or homicidal. Patient is to follow-up with her highway painter and is stable for discharge. Discharge Plan Discharge Patient Disposition: Home, Self-Care Clinical Impression: Chronic pain Qualifiers: Chronic pain type: other chronic pain Qualified Code(s): G89.29 - Other chronic pain Condition: Stable Prescriptions: No Action meloxicam 7.5 mg tablet 7.5 mg PO BID RF: 0 montelukast [Singulair] 10 mg tablet 10 mg PO DAILY RF: 0 Dexilant 60 mg capsule,biphase delayed releas 60 mg PO DAILY RF: 0 clozapine [Clozaril] 100 mg tablet 300 mg PO DAILY RF: 0 Flonase Allergy Relief nasal spray syringe 2 spray NOSTRIL-B DAILY RF: 0 Ventolin HFA aerosol 2 puff inhalation Q4H PRN (Reason: Shortness Of Breath) RF: 0 citalopram [Celexa] 40 mg tablet 40 mg PO DAILY 30 Days Qty: 30 RF: 0 alprazolam [Xanax] 0.5 mg Tablet 0.5 mg PO BID RF: 0 clozapine 50 mg tablet 350 mg PO BEDTIME RF: 0 docusate sodium 100 mg capsule 100 mg PO BID PRN (Reason: Constipation) RF: 0 mirtazapine 45 mg tablet 45 mg PO BEDTIME RF: 0 oxybutynin chloride 15 mg Tablet Extended Release 24hr 15 mg PO DAILY RF: 0 tramadol 50 mg tablet 50 mg PO BID PRN (Reason: pain) Qty: 60 RF: 2 Discharge Orders: Discharge Order (Routine); Ordered 12/25/19 Ordered By: Kade Smith Referrals: Grecia Kuhn MD [Primary Care Provider] - 1-3 days Discharge Diet: Advance as tolerated Discharge Activity: Resume usual activity Patient Instructions: Chronic Pain (ED) Discharge Date/Time: 12/25/19 20:07 Coding Level of Care Code ED Public Address Announcer for [place] Fwd Exam Comprehensive
[2019-12-25 19:01] VITALS: BP 140/106; PULSE 98; RESP 18; O2SAT 96
[2019-12-25] MEDS: ketorolac 30 mg/mL INJ IM (19:44)
[2019-12-25 20:05] VITALS: BP 141/96; PULSE 72; RESP 18; O2SAT 96
== END 2019-12-25 20:07 | disposition home or self-care (01) ==
PROVIDERS: Emergency Provider Emergency Medicine; Family Provider Family Medicine; PCP Family Medicine
DX: G89.29 Other chronic pain (principal); F17.210 Nicotine dependence, cigarettes, uncomplicated; M79.7 Fibromyalgia
CPT/HCPCS: 12345; 96372; 99204; 99281; 99283; J1885

== ENCOUNTER 2020-01-19 18:35 | Inpatient (IN) | payer MEDICARE, MEDICAID, SELFPAY ==
[2020-01-19 18:37] VITALS: BP 174/89; PULSE 118; RESP 18; O2SAT 97; BMI 31.8
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
[2020-01-19] MEDS: LORazepam 1 mg Tablet PO (18:55)
[2020-01-19 19:10] LABS: Basophils % 0.2 %; Eosinophils % 0.1 %; Hematocrit 36.4 % (37.0-47.0); Hemoglobin 11.7 g/dL (11.5-15.3); Lymphocytes # 2.3 10^3/uL (0.8-4.8); Lymphocytes % 20.7 %; Mean Corpuscular HGB Conc 32.1 g/dL (30.0-36.0); Mean Corpuscular Hemoglobin 29.6 pg (28.0-34.0); Mean Corpuscular Volume 92.2 fL (81-99); Mean Platelet Volume 9.5 fL (7.4-10.4); Monocytes # 1.1 10^3/uL (0.2-0.9); Monocytes % 9.7 %; Neutrophils # 7.6 10^3/uL (1.8-7.7); Neutrophils % 68.8 %; Nucleated Red Blood Cells % 0 %; Platelet Count 290 10^3/cmm (130-400); Red Blood Count 3.95 10^6/uL (4.1-5.3); Red Cell Distribution Width 14.2 % (12.1-15.1)
[2020-01-19 19:12] LABS: Amphetamines Screen Urine Negative (Negative); Barbiturates Screen Urine Negative (Negative); Benzodiazepines Screen Urine Negative (Negative); Cocaine Screen Urine Negative (Negative); Opiate Screen Urine Negative (Negative); PCP Screen Urine Negative (Negative); THC Screen Urine Negative (Negative)
[2020-01-19 19:23] LABS: Alanine Aminotransferase 19 U/L (0-33); Albumin Level 4.5 g/dL (3.5-5.2); Alkaline Phosphatase 123 IU/L (35-105); Anion Gap 17.5 (5-19); Aspartate Amino Transferase 18 U/L (0-32); Blood Urea Nitrogen 12 mg/dL (6-20); Calcium 9.6 mg/dL (8.5-10.5); Carbon Dioxide 22 mmol/L (22-29); Chloride 104 mmol/L (98-107); Globulin 2.5 g/dL (1.3-4.6); Glomerular Filtration Rate 86.9 mL/min (90-130); Glucose 173 mg/dL (65-115); Osmolality Calculated 288 mOsm/kg (285-295); Potassium 4.5 mmol/L (3.5-5.1); Sodium 139 mmol/L (136-145); Total Bilirubin 0.2 mg/dL (0.15-1.2)
[2020-01-19 19:26] LABS: Acetaminophen < 5.0 ug/mL (10-30); Alcohol Level < 10 mg/dL (0-10); Salicylate < 0.3 mg/dL (3-10)
[2020-01-19] MEDS: haloperidol inj 5 mg/mL INJ 1 mL IM (20:28)
[2020-01-19] MEDS: diphenhydrAMINE 50 mg/mL SDV 1mL IM (20:29)
[2020-01-19 20:35] VITALS: BP 154/82; PULSE 88; RESP 18; O2SAT 98
[2020-01-19 22:00] VITALS: BP 134/88; PULSE 102; RESP 18; TEMP 36.8; O2SAT 95
--- NOTE | 2020-01-19 22:36 | PC.NURSE ---
Patient arrived from [facility] calm and cooperative. Patient C/O auditory hallucinations saying they were going to kill her. Voices telling her to cut her wrists and legs. Patient states that current medications are not working and is seeking a medication regime that will work for her. she denied SI / HI. States she is all alone as most of her family have passed and she is astranged from her two grown children.
[2020-01-20] MEDS: TRAMadol 50 mg Tablet PO ×2 (00:28→12:26)
[2020-01-20] MEDS: trazodone 50 mg Tablet PO (00:29)
[2020-01-20 04:00] VITALS: PULSE 88; RESP 16; O2SAT 95
[2020-01-20 06:00] VITALS: BP 148/70; PULSE 68; RESP 18; TEMP 36.7; O2SAT 96
[2020-01-20] MEDS: fluticasone nasal spray 16gm Btl 2 SPRAY INTRANASAL (07:58)
[2020-01-20] MEDS: nicotine 2 mg Gum BUCCAL ×2 (07:59→10:23)
[2020-01-20] MEDS: meloxicam 7.5 mg tablet PO (07:59)
[2020-01-20] MEDS: citalopram 20 mg Tablet 40 MG PO (07:59)
[2020-01-20] MEDS: ALPRAZolam 0.5 mg Tablet PO (07:59)
[2020-01-20] MEDS: montelukast sodium 10 mg Tablet PO (07:59)
[2020-01-20] MEDS: pantoprazole DR 40 mg Tablet PO (07:59)
[2020-01-20 08:24] VITALS: PULSE 110; RESP 18; O2SAT 96
[2020-01-20] MEDS: oxybutynin chloride XL 5 MG TABLET 15 MG PO (08:36)
[2020-01-20] MEDS: cloZAPine 100 mg Tablet 300 MG PO (09:44)
--- NOTE | 2020-01-20 12:50 | P.SS_ITS ---
Short Stay Summary Providers Date of Admit/Discharge: 01/24/20 Attending Provider: Lawrence Martinez MD Primary Care Provider: Grecia Kuhn MD Chief Complaint: HEARING VOICES, SI HPI History of Present Illness Hilda Nolan is a 54 year old female Hilda presented to the emergency room reporting that she was hearing voices and having anxiety and paranoia that people were going to cut her. She was admitted to the neuropsychiatric unit for definitive treatment of those issues. On the unit, she quickly identified that s he did not want to be here, and that she had overreacted in her attempt to be admitted, and that she wanted to go home. A discussion ensued questioning her thoughts and actions, and we discussed the risks, benefits, and alternatives of staying in the hospital or discharging to home, and she understood and agreed to proceed as is documented in this note. We reviewed her most recent note which was from 11-07-19, and an excerpt was included given there have been no substantive changes since that day. Additionally, we discussed the concerns around her being here, in some ways, to attempt to impact her dosing of the Tramadol, and she denied that to be the case but there are significant concerns that this is part of why she comes. [place] [facility] [place] History of Present Illness Chief complaint: I was lonely. I called the ambulance people. I'm not hearing voices. History of present illness: Hilda Nolan is a 54-year-old woman with a historian diagnosis of schizophrenia who reported to her psychiatrist this morning over the telephone that I am having a lot of mental anguish and pain. The thing with my scars is coming back and there are voices in my head. According to the record, she could not tell voices that she was hearing or her over the voices of people. She is not paranoid. however she was in significant distress and there was something disturbing about the manner in which she conducted the interview. She was advised to increase her Clozaril. However eventually she was sent to the emergency room ostensibly for well-being check. at the time of my interview, she was really very vague as to what it was that we could do for her. She said that her main problem is that she is alone all the time and she is socially isolated. She denied the presence of auditory or visual hallucinations. She neither presence of suicidal or homicidal ideation. She referenced her last admission here 6 weeks ago. She was started on tramadol which seemed to provide benefit for the pain in her hands and caused her significant symptom relief. We also reviewed her health history as described below. It is all very confusing. She does have an appointment with her out patient psychiatrist in 4 days. Clearly the outpatient psychiatrist knows her better. The patient was again depressed as to what it was that we could do to make things better for her and what probably causing her difficulty. She can return to the fact that she was lonely and socially isolated. We did problem solve with that though it appears as though her problem-solving skills are subpar. [facility] physician note:54 yo dense emergency room via EMS with hallucinations. She is seeing things on her hands. She is quite perplexed and disturbed by this and feels that no one is paying attention to her concerns. She is at the point where she is considered harming herself to make the hallucinations stopped. Patient has been admitted multiple times in the past for similar complaints. She denies use of any drugs or alcohol recently she denies any recent illness no fever sweats chills cough or respiratory symptoms Mental health history:the patient was last admitted to this psychiatric unit on for September 2019 and was discharged the next day. The patient states that she was diagnosed with schizophrenia and 1989 when she was admitted to the hospital in [place]. At that time she was having problems with paranoia. However she does on that she has never had problems with paranoia only if I was drinking and drugging. Not doing that now so not paranoid. She has had a total of approximately 6 hospitalizations in the past. However she cannot detail exactly why she was placed in the hospital. She had one admission in [place] and one in [place]. She has never attempted suicide. Social history:she currently lives alone but she lives in an apartment. She knows the names of people around her. She knows them personally. She spends her time watching TV but does not engage in any conversations or social activities with the people that live around her. Legal history:there are no records in the public record of [place] of criminal or following arrests. However she was engaged in a 2 year litigation regarding her guardianship. It is unclear whether guardianship was granted with the last entry being in May 2019. Past medical history:unchanged from her last admission 6 weeks ago.it is noted that she was in the emergency room 30 times in 2019 for various somatic complaints. Mental Status Exam: the patient is a disheveled female appearing approximately her stated age. She displays no approach avoidance. I contact is good. Psychomotoric activity is unremarkable. She is believed to be a reliable informant to the best of her ability. Information provided is internally consistent and consistent with that chart. Appearance: hygiene is fair; no gross neurological deficits., gait is unremarkable; AIMS=0 Speech: Speech is of normal rate and rhythm and easily understood. Thought processes: Thought processes are abstract though sometimes idiosyncratic. Judgment is adequate for safety. Associations: intact Psychotic processes: There is no indication of guarding or paranoia. There is no attention to the internal stimuli. Auditory and visual hallucinations are denied. Judgment: Insight is poor. Problem solving skills are adequate for safety. Orientation: The patient is oriented to person, place time and situation. Memory: no deficits noted in immediate, intermediate, or remote spheres. Attention: The patient is alert and interpersonally engaged. Language: Verbalizations are coherent. Fund of knowledge: Fund of knowledge is adequate. Affect/Mood: Affect is consistent with a mildly depressed mood. she denied suicidal ideation Affective range appropriate. Psychosis: perception unimpaired except through cognitive distortionand cognitive deficit; reality testing intact. Diagnoses:adjustment disorder with disturbance of mood Assessment: Hilda Nolan is a 54-year-old woman with limited cognitive skills who lives appears to struggle with social isolation. She also repeatedly presents to the emergency room with a minor somatic complaints. It is unclear whether though to facts are related. For patient with auditory hallucinations and presenting with no other mental health issues other than social isolation, it is difficult to justify keeping her in the hospital at this time especially when she wants to be discharged.she has an appointment with her primary psychiatrist in 4 days. Treatment plan: At her request, she was discharged to home. Her tramadol prescription was reinstated at a lower dose 50 mg twice a day when necessary.we discussed at length possible solutions to her complaint of social isolation and ways that she could increase interaction with her neighbors. She said that she would consider trying those.however, if in fact she is under guardianship and this pattern persists, it would be reasonable for her to explore the benefits of living in a jail where she would likely thrive. 01/20/20 cont. MENTAL STATUS EXAMINATION: This is an obese, white female, with adequate dress, grooming, and eye contact. No abnormal movements. Cooperative with exam in no acute distress. Speech was decreased rate and volume. Mood described as ?better than yesterday?; affect congruent. Thought process, organized. Thought content: patient denied any suicidal or homicidal ideation, there were no delusions reported or noted, patient denied any auditory or visual hallucinations. Attention, concentration, and memory appeared intact but none were formally tested. He is alert and oriented times three. Insight and judgment are limited. Impulse control is limited. Assessment/Plan This is a 54 year old, white female, with depressive disorder, unspecified, schizophrenia, and impulse control disorder, unspecified, who presents having had some crisis last night with some chaos, to which she responded by coming to the hospital but is now wanting to go and is demonstrating no credible lethality. Continue current medication. Encourage patient to use crisis services by using conversations with crisis to avoid unnecessary trips to the emergency room. Will discharge to home with no changes to treatment. Home Meds/Allergies Home Medications and Allergies Home Medications Medication Instructions Recorded Confirmed Type dexlansoprazole 60 mg 60 mg PO DAILY 08/28/19 01/23/20 History capsule,biphase delayed release meloxicam 7.5 mg tablet 7.5 mg PO BID tab 08/28/19 01/23/20 History montelukast 10 mg tablet 10 mg PO DAILY 08/28/19 01/23/20 History Flonase Allergy Relief 2 spray NOSTRIL-B DAILY 09/23/19 01/23/20 History Ventolin HFA 2 puff INHALATION Q4H PRN 09/23/19 01/23/20 History docusate sodium 100 mg PO BID PRN 10/18/19 01/23/20 History oxybutynin chloride 15 mg PO DAILY 11/06/19 01/23/20 History acetaminophen [Tylenol] 325 - 650 mg PO PRN 01/19/20 01/23/20 History Allergies Allergy/AdvReac Type Severity Reaction Status Date / Time ibuprofen Allergy Mild unknown Verified 01/23/20 15:54 PFSH Acute PFSH: Medical History (Updated 01/23/20 @ 15:38 by Winter Brooks) Cigarette nicotine dependence Major depressive disorder, single episode, in full remission Other meterman (current) drug therapy Other schizophrenia Other stimulant dependence, uncomplicated Family History Denies family history of Diabetes CAD (coronary artery disease) Cancer Hypertension Stroke Social History Smoking and tobacco status: current every day smoker cigarettes [ Other cigarette details: 5 daily ] Quit status (tobacco): considering quitting Second hand smoke exposure: Yes Alcohol intake: former History of recent travel: No Vitals/I&O/Wt Last Vital Signs Temp 98.0 F 01/20/20 06:00 Pulse 110 H 01/20/20 08:24 Resp 18 01/20/20 08:24 BP 148/70 01/20/20 06:00 Pulse Ox 96 01/20/20 08:24 Weight last 48 hrs Weight 78.925 kg Hospital Course Hospital Course: Patient presented to the emergency room with some crisis at home, reporting auditory hallucinations, and feeling like she needed to be inpatient to treat her issues. She was admitted to the neuropsychiatric unit for definitive treatment of those issues. Medications were restarted; she immediately requested to be discharged and was absent any credible lethality, and tends to get worked up and is unable to calm herself down. She is now calm, the next morning, and desiring to leave. During the hospitalization, the patient had routine laboratory studies which were within normal limits, except for a few outliers. Additionally, she had a general medical evaluation which was within normal limits and revealed no new acute processes. Discharge Summary: At the time of discharge the patient denied all lethality, was absent psychosis, and mood and anxiety were well managed. The patient endorsed a plan to follow-up with outpatient services, as recommended. She was evaluated and deemed to be absent credible lethality, and had achieved the maximum benefit from an inpatient hospitalization, and so she was discharged. Diagnoses at Discharge Discharge Diagnosis (1) Suicidal ideation: Status: Acute (2) Major depressive disorder, single episode, in full remission: Status: Acute (3) Other schizophrenia: Status: Acute (4) Cigarette nicotine dependence: Status: Acute Discharge Plan Discharge Patient Disposition: Home, Self-Care Condition: Stable Prescriptions: Continued meloxicam 7.5 mg tablet 7.5 mg PO BID RF: 0 montelukast [Singulair] 10 mg tablet 10 mg PO DAILY RF: 0 Dexilant 60 mg capsule,biphase delayed releas 60 mg PO DAILY RF: 0 alprazolam [Xanax] 0.5 mg tablet 0.5 mg PO BID Qty: 60 RF: 5 Flonase Allergy Relief nasal spray syringe 2 spray NOSTRIL-B DAILY RF: 0 Ventolin HFA aerosol 2 puff inhalation Q4H PRN (Reason: Shortness Of Breath) RF: 0 docusate sodium 100 mg capsule 100 mg PO BID PRN (Reason: Constipation) RF: 0 oxybutynin chloride 15 mg Tablet Extended Release 24hr 15 mg PO DAILY RF: 0 tramadol 50 mg tablet 50 mg PO BID PRN (Reason: pain) Qty: 60 RF: 2 acetaminophen [Tylenol] 325 mg Tablet 325 - 650 mg PO PRN RF: 0 No Action mirtazapine 45 mg tablet 45 mg PO BEDTIME Qty: 30 RF: 5 citalopram [Celexa] 40 mg tablet 40 mg PO DAILY Qty: 30 RF: 5 clozapine 100 mg tablet 300 mg PO .qhs Qty: 90 RF: 5 clozapine 50 mg tablet 50 mg PO BID Qty: 60 RF: 5 Discharge Orders: Discharge Order (Routine); Ordered 01/20/20 Ordered By: Lawrence Martinez Referrals: Grecia Kuhn MD [Primary Care Provider] - Tai Montgomery MD [Referring] - 01/29/20 12:10 pm (New patient visit. Appointment is at 12:40pm but they want you to arrive at 12:10pm for paperwork.) Slim Arguello DO [Staff Physician] - 01/22/20 1:15 pm (1 month check) Discharge Diet: Regular Discharge Activity: Resume usual activity Discharge Date/Time: 01/20/20 13:38 Attestations Medical Necessity Statement*: Inpatient hospitalization is not medically necessary or the clinically appropriate intervention, at this time. The patient is absent credible lethality and this is a voluntary admission, so she is being allowed to discharge today. Time Spent in Patient Care*: greater than 30 min Specific Discharge Activities: Specific discharge activities: educating patient, discussing with case packer/social workers/dc planners, documenting/other paperwork and evaluating patient/reviewing data Quality Metrics Clinical Quality Measures: During this hospital stay, did patient experience: None Coding Level of Care Code Acute [employer] for g Fwd Diagnoses Suicidal ideation R45.851 Major depressive disorder, single episode, in full remission F32.5 Other schizophrenia F20.89 Cigarette nicotine dependence F17.210
[2020-01-20 13:17] VITALS: PULSE 110; RESP 18; O2SAT 96
--- NOTE | 2020-01-21 17:48 | PC.RESP ---
Smoking Cessation information and a schedule of classes to patient post discharge.
== END 2020-01-20 13:38 | disposition home or self-care (01) | DRG 882 ==
LOC: ER 19:29 → NP 19:55
PROVIDERS: Emergency Medicine; Admitting Provider Psychiatry & Neurology Psychiatry; PCP Family Medicine; Visit Provider Psychiatry & Neurology Psychiatry
DX: F43.24 Adjustment disorder with disturbance of conduct (principal); R45.851 Suicidal ideations; F41.9 Anxiety disorder, unspecified; F63.9 Impulse disorder, unspecified; F32.5 Major depressive disorder, single episode, in full remission; Z79.899 Other long term (current) drug therapy; F20.89 Other schizophrenia; F17.210 Nicotine dependence, cigarettes, uncomplicated
CPT/HCPCS: 12345; 36415; 80053; 80306; 80307; 85025; 96372; 99281; J1200; J1630

== ENCOUNTER → 2020-01-22 07:35 | Outpatient (BNVA) | payer MEDICARE, MEDICAID, SELFPAY | PROVIDERS: PCP Family Medicine; Visit Provider Psychiatry & Neurology Psychiatry | DX: F32.5 Major depressive disorder, single episode, in full remission (principal); F17.210 Nicotine dependence, cigarettes, uncomplicated; F20.89 Other schizophrenia | CPT/HCPCS: 99213 ==

== ENCOUNTER 2020-01-23 14:49 | Inpatient (IN) | payer MEDICARE, MEDICAID, SELFPAY ==
[2020-01-23 14:51] VITALS: BP 134/92; PULSE 117; RESP 18; TEMP 36.7; O2SAT 97; BMI 31.8
--- NOTE | 2020-01-23 14:53 | USCV_ITS ---
Hilda Nolan Age: 54 Gender: F : 1965 Exam Date: 01/23/2020 15:03 Ordering Phys: Winter Brooks DO Technologist: Ric Gomes [place]am [place] [facility] [place] Indication: LT LEG PAIN AND SWELLING HISTORY: Lower extremity swelling. Lower extremity pain. PROCEDURES: The venous duplex Doppler examination of both lower extremities was performed in the standard fashion. The following venous structures were evaluated: common femoral vein, profunda vein, proximal portion of the greater saphenous vein, superficial femoral vein, and the popliteal vein. In addition, the posterior tibial and peroneal trunk were evaluated. FINDINGS: Normal 2-D Doppler and augmentation and compressibility throughout the lower extremity venous structures. Additional imaging through the proximal calf veins also reveals no thrombus. Limited evaluation of the greater saphenous vein is patent with no thrombus.. CONCLUSIONS No evidence of DVT in the above-mentioned identifiable veins. Dr Vicki Greenwood MD [facility] (Electronically Signed) Final Date: 23 January 2020 17:54 S
--- NOTE | 2020-01-23 14:57 | W.ED.GENADLT ---
HPI - General Adult General: Chief complaint: Psychiatric Symptoms Stated complaint: SI Time Seen by Provider: 01/23/20 14:50 Source: patient Mode of arrival: EMS Limitations: no limitations History of Present Illness: HPI narrative: Hilda is a 54-year-old female who comes in complaining of feeling suicidal. She states that her life is just not worth living and she is going to help her self finish herself off as she believes she is already slowly dying. The patient has rapid speech and does not admit to me what her plan is. She does state that she does want to get help. She is also complaining of left lower leg pain which she says is secondary to a blood clot. She is currently not any blood thinners and states it is not being diagnosed but she feels as though she has a clot. Associated symptoms: Deny chest pain, dyspnea, headache(s), nausea, rash, palpitations, syncope or vomiting Review of Systems Const: Denies: fever(s) Eyes: Denies: change in vision ENMT: Denies: throat pain Card: Denies: chest pain, palpitations, syncope, pre-syncope or dyspnea on exertion Resp: Denies: dyspnea, productive cough or non-productive cough GI: Denies: abdominal pain, nausea, vomiting or diarrhea : Denies: flank pain, dysuria, urinary frequency or urinary urgency Musc: Denies: neck pain, back pain or extremity pain Skin/Breast: Denies: rash or pruritus Neuro: Denies: headache(s), numbness in extremities, weakness in extremities or dizziness Trevon/Lymph: Denies: easy bruising or easy bleeding All/Imm: Denies: urticaria PFSH ED PFSH: Medical History Cigarette nicotine dependence Major depressive disorder, single episode, in full remission 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 Other schizophrenia Other stimulant dependence, uncomplicated Family History Denies family history of Diabetes CAD (coronary artery disease) Cancer Hypertension Stroke Social History Smoking and tobacco status: current every day smoker cigarettes [ Other cigarette details: 5 daily ] Quit status (tobacco): considering quitting Second hand smoke exposure: Yes Alcohol intake: former History of recent travel: No Physical Exam Const: COMMON NORMALS: no acute distress, patient oriented x3, no limitations, healthy appearing and well nourished GENERAL APPEARANCE: cooperative, well kempt and well developed HENMT: COMMON NORMALS: normocephalic, atraumatic, external ears normal, EAC's normal and Normal external nose present HEAD & SCALP: normal to inspection, normocephalic and atraumatic FACE & SINUS: normal facial exam and face symmetric NOSE: Normal external nose present and Normal nares present EXTERNAL EAR: Yes external ears normal EXTERNAL AUDITORY CANAL: EAC's normal MOUTH: Normal oral and palatal mucosa present, lip normal and tongue normal Eye: COMMON NORMALS: Equal, round and reactive pupils present and conjunctivae normal GENERAL EYE: appearance normal, both eyes and all related structures ALIGNMENT: Yes alignment normal PERIORBITAL: periorbital findings normal EYELID: eyelids normal CONJUNCTIVA: Yes conjunctivae normal SCLERA: sclerae normal PUPIL: Yes Equal, round and reactive pupils present Neck/C-Spine: COMMON NORMALS: full ROM, no lymphadenopathy, supple, no meningeal signs and no JVD GENERAL: Yes normal visual inspection and Yes trachea midline Chest: COMMONS NORMALS: normal inspection of the chest and normal palpation of entire chest wall Resp: COMMON NORMALS: normal respiratory effort, No retractions and No use of accessory muscles EFFORT & INSPECTION: Yes able to speak in complete sentences and Yes symmetric chest movement AUSCULTATION: no crackles, no rales, no rhonchi and no wheezes Cardio: COMMON NORMALS: no JVD, regular rate, regular rhythm, S1 normal heart sound present and S2 normal heart sound present RATE: regular rate RHYTHM: regular rhythm HEART SOUNDS: S1 normal heart sound present, S2 normal heart sound present, no click, no gallops, no murmurs, no rubs and abnormal split S2 GI: COMMON NORMALS: Soft to palpation and No hepatosplenomegaly present PALPATION: Yes Soft to palpation, No Tenderness to palpation present (GI), No Guarding due to palpation present (GI), No Rigid due to palpation, Yes No hepatosplenomegaly present, No Hernia present, No Palpable mass present and No Pulsatile mass present : COMMON NORMALS: Yes no CVA tenderness BLADDER/KIDNEY EXAM: Yes no CVA tenderness EXTERNAL FEMALE EXAM: No Hernia present Back/Pelvis: COMMON NORMALS: no CVA tenderness, thoracic and lumbar spine normal to inspection, no thoracic nor lumbar tenderness and thoraco-lumbar ROM normal Extremity: COMMON NORMALS: normal to inspection, full ROM, capillary refill normal, no joint enlargement, no clubbing, cyanosis or edema and no calf tenderness Neuro: COMMON NORMALS: patient oriented x3, CN's II-XII intact bilaterally, moves all extremities, no focal motor deficits and no sensory deficits noted MENINGEAL SIGNS: Yes no meningeal signs SPEECH: speech normal Psych: COMMON NORMALS: mental status grossly normal, Normal thought process present, cooperative, normal affect, speech normal and activity/motor behavior normal APPEARANCE: Yes well kempt SPEECH: Yes normal speech THOUGHT PROCESS: Normal thought process present Skin: COMMON NORMALS: no rashes or lesions noted, turgor normal, no jaundice, no petechiae and no mottling GENERAL SKIN EXAM: no rashes or lesions noted and turgor normal Course Vital Signs: Vital signs: Vital Signs Temperature 98.1 F 01/23/20 14:51 Pulse Rate 117 H 01/23/20 14:51 Respiratory Rate 18 01/23/20 14:51 Blood Pressure 134/92 01/23/20 14:51 Pulse Oximetry 97 01/23/20 14:51 MDM - General Adult MDM Narrative: Medical decision making narrative: Patient appears psychotic and paranoid. She has had suicidal ideations, please see the police affidavit on file in the patient's chart. I will go and admit the patient to the neuropsychiatric unit. I have reviewed the case in full with Dr. Martinez and he is in agreement. Lab Data: Attestation: I reviewed the patient's lab results. Labs: Lab Results 01/23/20 01/23/20 01/23/20 Range/Units 15:07 15:08 15:08 WBC 12.4 H (4.0-10.0) 10^3/ uL RBC 4.26 (4.1-5.3) 10^6/u L Hgb 12.2 (11.5-15.3) g/dL Hct 38.6 (37.0-47.0) % MCV 90.6 (81-99) fL MCH 28.6 (28.0-34.0) pg MCHC 31.6 (30.0-36.0) g/dL RDW 14.2 (12.1-15.1) % Plt Count 293 (130-400) 10^3/c mm MPV 9.3 (7.4-10.4) fL Neut % (Auto) 72.0 % Lymph % (Auto) 18.6 % Stafford % (Auto) 8.6 % Eos % (Auto) 0.0 % Baso % (Auto) 0.2 % Neut # (Auto) 8.9 H (1.8-7.7) 10^3/u L Lymph # (Auto) 2.3 (0.8-4.8) 10^3/u L Stafford # (Auto) 1.1 H (0.2-0.9) 10^3/u L Eos # (Auto) 0.0 (0.0-0.8) 10^3/u L Baso # (Auto) 0.0 (0.0-0.1) 10^3/u L Nucleated RBC % (a uto) 0 % Nucleated RBCs # 0.0 /100WBC HCG, Qual Negative (Negative) Urine Color Straw (Yellow) Urine Appearance Clear (CLEAR) Urine pH 5 (5-7) Ur Specific Gravit y 1.010 (1.005-1.030) Urine Protein Neg (Negative) Urine Glucose (UA) Norm (Normal) Urine Ketones Negative (Negative) Urine Blood Neg (Negative) Urine Nitrate Negative (Negative) Urine Bilirubin Neg (NEGATIVE) Urine Urobilinogen Norm (Negative) mg/dL Ur Leukocyte Zaria ase Trace H (Negative) Urine RBC None (0-2) /hpf Urine WBC 5-10 H (0-5) /hpf Ur Squamous Epith Cells 5-10 H (0-5) Amorphous Sediment Not Reportable Urine Bacteria Trace (NONE) Urine Opiates Scre en (Negative) ng/mL Ur Barbiturates Sc reen (Negative) ng/mL Ur Phencyclidine S crn (Negative) ng/mL Ur Amphetamines Sc reen (Negative) ng/mL U Benzodiazepines Scrn (Negative) ng/mL Urine Cocaine Scre en (Negative) ng/mL U Marijuana (THC) Screen (Negative) ng/mL 01/23/20 Range/Units 15:08 WBC (4.0-10.0) 10^3/ uL RBC (4.1-5.3) 10^6/u L Hgb (11.5-15.3) g/dL Hct (37.0-47.0) % MCV (81-99) fL MCH (28.0-34.0) pg MCHC (30.0-36.0) g/dL RDW (12.1-15.1) % Plt Count (130-400) 10^3/c mm MPV (7.4-10.4) fL Neut % (Auto) % Lymph % (Auto) % Stafford % (Auto) % Eos % (Auto) % Baso % (Auto) % Neut # (Auto) (1.8-7.7) 10^3/u L Lymph # (Auto) (0.8-4.8) 10^3/u L Stafford # (Auto) (0.2-0.9) 10^3/u L Eos # (Auto) (0.0-0.8) 10^3/u L Baso # (Auto) (0.0-0.1) 10^3/u L Nucleated RBC % (a uto) % Nucleated RBCs # /100WBC HCG, Qual (Negative) Urine Color (Yellow) Urine Appearance (CLEAR) Urine pH (5-7) Ur Specific Gravit y (1.005-1.030) Urine Protein (Negative) Urine Glucose (UA) (Normal) Urine Ketones (Negative) Urine Blood (Negative) Urine Nitrate (Negative) Urine Bilirubin (NEGATIVE) Urine Urobilinogen (Negative) mg/dL Ur Leukocyte Zaria ase (Negative) Urine RBC (0-2) /hpf Urine WBC (0-5) /hpf Ur Squamous Epith Cells (0-5) Amorphous Sediment Urine Bacteria (NONE) Urine Opiates Scre en Negative (Negative) ng/mL Ur Barbiturates Sc reen Negative (Negative) ng/mL Ur Phencyclidine S crn Negative (Negative) ng/mL Ur Amphetamines Sc reen Negative (Negative) ng/mL U Benzodiazepines Scrn Negative (Negative) ng/mL Urine Cocaine Scre en Negative (Negative) ng/mL U Marijuana (THC) Screen Negative (Negative) ng/mL Imaging Data^: US Vascular: My impression: Left lower extremity venous Doppler, tech interpretation -negative for DVT Discharge Plan Discharge Patient Disposition: Admitted As Inpatient Clinical Impression: Acute psychosis, Suicidal ideation Condition: Stable Prescriptions: No Action mirtazapine 45 mg tablet 45 mg PO BEDTIME Qty: 30 RF: 5 citalopram [Celexa] 40 mg tablet 40 mg PO DAILY Qty: 30 RF: 5 clozapine 100 mg tablet 300 mg PO .qhs Qty: 90 RF: 5 clozapine 50 mg tablet 50 mg PO BID Qty: 60 RF: 5 meloxicam 7.5 mg tablet 7.5 mg PO BID RF: 0 montelukast [Singulair] 10 mg tablet 10 mg PO DAILY RF: 0 Dexilant 60 mg capsule,biphase delayed releas 60 mg PO DAILY RF: 0 alprazolam [Xanax] 0.5 mg tablet 0.5 mg PO BID Qty: 60 RF: 5 Flonase Allergy Relief nasal spray syringe 2 spray NOSTRIL-B DAILY RF: 0 Ventolin HFA aerosol 2 puff inhalation Q4H PRN (Reason: Shortness Of Breath) RF: 0 docusate sodium 100 mg capsule 100 mg PO BID PRN (Reason: Constipation) RF: 0 oxybutynin chloride 15 mg Tablet Extended Release 24hr 15 mg PO DAILY RF: 0 tramadol 50 mg tablet 50 mg PO BID PRN (Reason: pain) Qty: 60 RF: 2 acetaminophen [Tylenol] 325 mg Tablet 325 mg PO QID PRN (Reason: Pain) RF: 0 Referrals: Grecia Kuhn MD [Primary Care Provider] - Coding Level of Care Code ED Branch Service Leader for Chg Fwd Exam Comprehensive
[2020-01-23 15:19] LABS: HCG Qualitative Urine. Negative (Negative)
[2020-01-23 15:20] LABS: Basophils % 0.2 %; Hematocrit 38.6 % (37.0-47.0); Hemoglobin 12.2 g/dL (11.5-15.3); Lymphocytes # 2.3 10^3/uL (0.8-4.8); Lymphocytes % 18.6 %; Mean Corpuscular HGB Conc 31.6 g/dL (30.0-36.0); Mean Corpuscular Hemoglobin 28.6 pg (28.0-34.0); Mean Corpuscular Volume 90.6 fL (81-99); Mean Platelet Volume 9.3 fL (7.4-10.4); Monocytes # 1.1 10^3/uL (0.2-0.9); Monocytes % 8.6 %; Neutrophils # 8.9 10^3/uL (1.8-7.7); Nucleated Red Blood Cells % 0 %; Platelet Count 293 10^3/cmm (130-400); Red Blood Count 4.26 10^6/uL (4.1-5.3); Red Cell Distribution Width 14.2 % (12.1-15.1); White Blood Count 12.4 10^3/uL (4.0-10.0)
[2020-01-23 15:22] LABS: Add Urine Microscopic? YES; Bilirubin Urine Neg (NEGATIVE); Blood Urine Neg (Negative); Glucose Urine UA Norm (Normal); Ketones Urine Negative (Negative); Leukocyte Esterase Urine Trace (Negative); Nitrate Urine Negative (Negative); Protein Urine Neg (Negative); Urine Appearance Clear (CLEAR); Urine Color Straw (Yellow); Urobilinogen Urine Norm (Negative); pH Urine 5 (5-7)
[2020-01-23 15:30] LABS: Add Urine Culture? No; Bacteria Urine TRACE
[2020-01-23 15:31] LABS: Amphetamines Screen Urine Negative (Negative); Barbiturates Screen Urine Negative (Negative); Benzodiazepines Screen Urine Negative (Negative); Cocaine Screen Urine Negative (Negative); Opiate Screen Urine Negative (Negative); PCP Screen Urine Negative (Negative); THC Screen Urine Negative (Negative)
[2020-01-23 15:42] LABS: Lithium 0.1 mmol/L (0.6-1.2)
[2020-01-23] MEDS: HYDROcodone-acetaminophen 5-325 mg Tablet 1 TAB PO (15:43)
[2020-01-23] MEDS: haloperidol inj 5 mg/mL INJ 1 mL IM (15:47)
[2020-01-23 15:48] LABS: INR 0.92 (0.8-1.2)
--- NOTE | 2020-01-23 15:49 | PC.NURSE ---
Patient resting in bed with 1:1 sitter at bedside.
[2020-01-23 15:50] LABS: Alanine Aminotransferase 16 U/L (0-33); Albumin Level 4.6 g/dL (3.5-5.2); Alkaline Phosphatase 121 IU/L (35-105); Aspartate Amino Transferase 16 U/L (0-32); Blood Urea Nitrogen 14 mg/dL (6-20); Calcium 9.8 mg/dL (8.5-10.5); Carbon Dioxide 24 mmol/L (22-29); Chloride 103 mmol/L (98-107); Globulin 2.4 g/dL (1.3-4.6); Glomerular Filtration Rate 86.9 mL/min (90-130); Glucose 119 mg/dL (65-115); Osmolality Calculated 283 mOsm/kg (285-295); Phenytoin Dilantin 0.8 ug/mL (10-20); Sodium 138 mmol/L (136-145); Thyroid Stimulating Hormone 0.84 uIU/mL (0.27-4.20); Total Bilirubin 0.2 mg/dL (0.15-1.2); Valproic Acid Level 2.8 ug/mL (50-100)
[2020-01-23 15:55] VITALS: BP 134/92; PULSE 117; RESP 18; TEMP 36.7; O2SAT 97
[2020-01-23 16:03] LABS: Acetaminophen < 5.0 ug/mL (10-30); Alcohol Level < 10 mg/dL (0-10); Salicylate < 0.3 mg/dL (3-10)
[2020-01-23 16:10] VITALS: BP 122/83; PULSE 103; RESP 20; TEMP 36.7; O2SAT 96
[2020-01-23] MEDS: hyDROXYzine 25 mg Capsule 50 MG PO (19:01)
--- NOTE | 2020-01-23 19:02 | PC.NURSE ---
Addendum entered by Larissa Sanchez LPN 01/23/20 20:51: PRN MEDICATION EFFECTIVE, NO FURTHER C/O OF ANXIETY. WILL CONTINUE TO MONITOR. Original Note: PRN VISTARIL VISTARIL 50MG PO PER PATIENT C/O ANXIETY. WILL CONTINUE TO MONITOR FOR MEDICATION EFFECTIVENESS.
[2020-01-23 20:10] VITALS: BP 125/85; PULSE 96; RESP 15; TEMP 35.9; O2SAT 96
[2020-01-23] MEDS: cloZAPine 100 mg Tablet 300 MG PO (20:31)
[2020-01-23] MEDS: mirtazapine 30 mg Tablet 45 MG PO (20:32)
[2020-01-23] MEDS: TRAMadol 50 mg Tablet PO (20:32)
[2020-01-23] MEDS: cloZAPine 25 mg Tablet 50 MG PO (20:32)
[2020-01-24 06:00] VITALS: BP 123/83; PULSE 95; RESP 15; TEMP 36.9; O2SAT 97
[2020-01-24] MEDS: fluticasone nasal spray 16gm Btl 2 SPRAY NASAL (08:14)
[2020-01-24] MEDS: citalopram 20 mg Tablet 40 MG PO (08:15)
[2020-01-24] MEDS: ALPRAZolam 0.5 mg Tablet PO (08:15)
[2020-01-24] MEDS: cloZAPine 100 mg Tablet 300 MG PO (08:15)
[2020-01-24] MEDS: oxybutynin 5 mg Tablet 15 MG PO (08:15)
[2020-01-24] MEDS: meloxicam 7.5 mg tablet PO (08:15)
[2020-01-24] MEDS: pantoprazole DR 40 mg Tablet PO (08:15)
--- NOTE | 2020-01-24 08:40 | PM.SDS ---
Short Stay Summary Providers Date of Admit/Discharge: 01/24/20 Attending Provider: Lawrence Martinez MD Primary Care Provider: Grecia Kuhn MD Chief Complaint: SI HPI History of Present Illness Hilda Nolan is a 54 year old female who presented to the emergency room endorsing feeling suicidal. At one point, she supposedly had a knife and was threatening to cut, but reported to the emergency room that she needed to just finish herself off because she is already dying slowly. She is over-focused on her pain issues, especially lower left leg pain, that she thought was secondary to a blood clot. They evaluated for a blood clot and ultimately there was none. She was admitted to the neuropsychiatric unit for her reports of suicidal thoughts and feeling out of sorts. She was admitted to the neuropsychiatric unit for definitive treatment of those issues. She no more quickly reached the floor than she was asking to be discharged again. And we discussed the fact that we at least needed to see her through to the morning to make sure there was no residual lethality reported, and to ensure that she was safe. The next morning, she was endorsing being well rested and not having any need to be in the hospital. She got upset a couple of times as we discussed the utilization of services and how she needs to figure out crisis options when she is just having a bad moment to make sure that when she is here it is not because she is frustrated with her apartment mates or neighbors, or things like that. She was evaluated for lethality and need for inpatient hospitalization. We discussed the risks, benefits, and alternatives of allowing her to discharge, and she understood and agreed to proceed as is documented in this note. A excerpt from her last hospitalization, which was about a week ago, was included, as she denies any substantive changes to her history. Per her 01/20/20 [facility] eval: History of Present Illness Hilda Nolan is a 54 year old female Hilda presented to the emergency room reporting that she was hearing voices and having anxiety and paranoia that people were going to cut her. She was admitted to the neuropsychiatric unit for definitive treatment of those issues. On the unit, she quickly identified that she did not want to be here, and that she had overreacted in her attempt to be admitted, and that she wanted to go home. A discussion ensued questioning her thoughts and actions, and we discussed the risks, benefits, and alternatives of staying in the hospital or discharging to home, and she understood and agreed to proceed as is documented in this note. We reviewed her most recent note which was from 11-07-19, and an excerpt was included given there have been no substantive changes since that day. Additionally, we discussed the concerns around her being here, in some ways, to attempt to impact her dosing of the Tramadol, and she denied that to be the case but there are significant concerns that this is part of why she comes. Per 11/07/19 [facility] eval: History of Present Illness Chief complaint: I was lonely. I called the ambulance people. I'm not hearing voices. History of present illness: Hilda Nolan is a 54-year-old woman with a historian diagnosis of schizophrenia who reported to her psychiatrist this morning over the telephone that I am having a lot of mental anguish and pain. The thing with my scars is coming back and there are voices in my head. According to the record, she could not tell voices that she was hearing or her over the voices of people. She is not paranoid. however she was in significant distress and there was something disturbing about the manner in which she conducted the interview. She was advised to increase her Clozaril. However eventually she was sent to the emergency room ostensibly for well-being check. at the time of my interview, she was really very vague as to what it was that we could do for her. She said that her main problem is that she is alone all the time and she is socially isolated. She denied the presence of auditory or visual hallucinations. She neither presence of suicidal or homicidal ideation. She referenced her last admission here 6 weeks ago. She was started on tramadol which seemed to provide benefit for the pain in her hands and caused her significant symptom relief. We also reviewed her health history as described below. It is all very confusing. She does have an appointment with her outpatient psychiatrist in 4 days. Clearly the outpatient psychiatrist knows her better. The patient was again depressed as to what it was that we could do to make things better for her and what probably causing her difficulty. She can return to the fact that she was lonely and socially isolated. We did problem solve with that though it appears as though her problem-solving skills are subpar. emerrgency room physician note:54 yo dense emergency room via EMS with hallucinations. She is seeing things on her hands. She is quite perplexed and disturbed by this and feels that no one is paying attention to her concerns. She is at the point where she is considered harming herself to make the hallucinations stopped. Patient has been admitted multiple times in the past for similar complaints. She denies use of any drugs or alcohol recently she denies any recent illness no fever sweats chills cough or respiratory symptoms Mental health history:the patient was last admitted to this psychiatric unit on for September 2019 and was discharged the next day. The patient states that she was diagnosed with schizophrenia and 1989 when she was admitted to the hospital in [place]. At that time she was having problems with paranoia. However she does on that she has never had problems with paranoia only if I was drinking and drugging. Not doing that now so not paranoid. She has had a total of approximately 6 hospitalizations in the past. However she cannot detail exactly why she was placed in the hospital. She had one admission in [place] and one in [place]. She has never attempted suicide. Social history:she currently lives alone but she lives in an apartment. She knows the names of people around her. She knows them personally. She spends her time watching TV but does not engage in any conversations or social activities with the people that live around her. Legal history:there are no records in the public record of [place] of criminal or following arrests. However she was engaged in a 2 year litigation regarding her guardianship. It is unclear whether guardianship was granted with the last entry being in May 2019. Past medical history:unchanged from her last admission 6 weeks ago.it is noted that she was in the emergency room 30 times in 2019 for various somatic complaints. Mental Status Exam: the patient is a disheveled female appearing approximately her stated age. She displays no approach avoidance. I contact is good. Psychomotoric activity is unremarkable. She is believed to be a reliable informant to the best of her ability. Information provided is internally consistent and consistent with that chart. Appearance: hygiene is fair; no gross neurological deficits., gait is unremarkable; AIMS=0 Speech: Speech is of normal rate and rhythm and easily understood. Thought processes: Thought processes are abstract though sometimes idiosyncratic. Judgment is adequate for safety. Associations: intact Psychotic processes: There is no indication of guarding or paranoia. There is no attention to the internal stimuli. Auditory and visual hallucinations are denied. Judgment: Insight is poor. Problem solving skills are adequate for safety. Orientation: The patient is oriented to person, place time and situation. Memory: no deficits noted in immediate, intermediate, or remote spheres. Attention: The patient is alert and interpersonally engaged. Language: Verbalizations are coherent. Fund of knowledge: Fund of knowledge is adequate. Affect/Mood: Affect is consistent with a mildly depressed mood. she denied suicidal ideation Affective range appropriate. Psychosis: perception unimpaired except through cognitive distortionand cognitive deficit; reality testing intact. Diagnoses:adjustment disorder with disturbance of mood Assessment: Hilda Nolan is a 54-year-old woman with limited cognitive skills who lives appears to struggle with social isolation. She also repeatedly presents to the emergency room with a minor somatic complaints. It is unclear whether though to facts are related. For patient with auditory hallucinations and presenting with no other mental health issues other than social isolation, it is difficult to justify keeping her in the hospital at this time especially when she wants to be discharged.she has an appointment with her primary psychiatrist in 4 days. Treatment plan: At her request, she was discharged to home. Her tramadol prescription was reinstated at a lower dose 50 mg twice a day when necessary.we discussed at length possible solutions to her complaint of social isolation and ways that she could increase interaction with her neighbors. She said that she would consider trying those.however, if in fact she is under guardianship and this pattern persists, it would be reasonable for her to explore the benefits of living in a correction where she would likely thrive. 01/20/20 cont. MENTAL STATUS EXAMINATION: This is an obese, white female, with adequate dress, grooming, and eye contact. No abnormal movements. Cooperative with exam in no acute distress. Speech was decreased rate and volume. Mood described as ?better than yesterday?; affect congruent. Thought process, organized. Thought content: patient denied any suicidal or homicidal ideation, there were no delusions reported or noted, patient denied any auditory or visual hallucinations. Attention, concentration, and memory appeared intact but none were formally tested. He is alert and oriented times three. Insight and judgment are limited. Impulse control is limited. Assessment/Plan This is a 54 year old, white female, with depressive disorder, unspecified, schizophrenia, and impulse control disorder, unspecified, who presents having had some crisis last night with some chaos, to which she responded by coming to the hospital but is now wanting to go and is demonstrating no credible lethality. Continue current medication. Encourage patient to use crisis services by using conversations with crisis to avoid unnecessary trips to the emergency room. Will discharge to home with no changes to treatment. Home Meds/Allergies Home Medications and Allergies Home Medications Medication Instructions Recorded Confirmed Type dexlansoprazole 60 mg 60 mg PO DAILY 08/28/19 01/23/20 History capsule,biphase delayed release meloxicam 7.5 mg tablet 7.5 mg PO BID tab 08/28/19 01/23/20 History montelukast 10 mg tablet 10 mg PO DAILY 08/28/19 01/23/20 History Flonase Allergy Relief 2 spray NOSTRIL-B DAILY 09/23/19 01/23/20 History Ventolin HFA 2 puff INHALATION Q4H PRN 09/23/19 01/23/20 History docusate sodium 100 mg PO BID PRN 10/18/19 01/23/20 History oxybutynin chloride 15 mg PO DAILY 11/06/19 01/23/20 History acetaminophen [Tylenol] 325 - 650 mg PO PRN 01/19/20 01/23/20 History Allergies Allergy/AdvReac Type Severity Reaction Status Date / Time ibuprofen Allergy Mild unknown Verified 01/23/20 15:54 PFSH Acute PFSH: Medical History Cigarette nicotine dependence Major depressive disorder, single episode, in full remission Other skilled nursing (current) drug therapy Other schizophrenia Other stimulant dependence, uncomplicated Family History Denies family history of Diabetes CAD (coronary artery disease) Cancer Hypertension Stroke Social History Smoking and tobacco status: current every day smoker cigarettes [ Other cigarette details: 5 daily ] Quit status (tobacco): considering quitting Second hand smoke exposure: Yes Alcohol intake: former History of recent travel: No Vitals/I&O/Wt Last Vital Signs Temp 98.4 F 01/24/20 06:00 Pulse 95 01/24/20 06:00 Resp 15 01/24/20 06:00 BP 123/83 01/24/20 06:00 Pulse Ox 97 01/24/20 06:00 Weight last 48 hrs Weight 78.925 kg Physical Exam Psych: OTHER: MENTAL STATUS EXAMINATION: This is an obese, white female, with adequate dress, grooming, and eye contact. No abnormal movements. Cooperative with exam in no acute distress. Speech was more normal rate and volume. Mood described as alright; affect congruent. Thought process, organized. Thought content: patient denied any suicidal or homicidal ideation, there were no delusions reported or noted, patient denied any auditory or visual hallucinations. Attention, concentration, and memory appeared intact but none were formally tested. She is alert and oriented times three. Insight and judgment are limited. Impulse control is limited. Hospital Course Hospital Course: The patient presented to the emergency room endorsing suicidality and leg pain, and she was treated for the leg pain and investigations ensued. After she was medically cleared, she was admitted to the neuropsychiatric unit for definitive treatment. Once here, she identified that she did not want to be here, nor was it needed, and it was a mistake. She requested to be discharged from treatment which was allowed. During the hospitalization, the patient had routine laboratory studies which were within normal limits, except for a few outliers. Additionally, she had a general medical evaluation which was within normal limits and revealed no new acute processes. Discharge Summary: At the time of discharge the patient denied all lethality, was absent psychosis, and mood and anxiety were well managed. The patient endorsed a plan to follow-up with outpatient services, as recommended. She was evaluated and deemed to be absent credible lethality, and had achieved the maximum benefit from an inpatient hospitalization, and so she was discharged. [facility] Data Data Completed and Pending: Completed Studies During Hospitalization Category [place] [address] Stat Ultrasound 01/23/20 14:53 Completed Diagnoses at Discharge Other Information Additional DC diagnoses/information: Assessment/plan This is a 54 year old, white female, with a long history of psychosis and depression, and some issues with pain with recent hospitalization, with difficulty understanding that her pain management issues need to be followed up with those clinics where she does have appointments. Continue current medications. Will allow discharge to home given that there is no credible lethality. Patient is to follow up with already established appointments. Discharge Plan Discharge Patient Disposition: Home, Self-Care Condition: Stable Prescriptions: Continued mirtazapine 45 mg tablet 45 mg PO BEDTIME Qty: 30 RF: 5 citalopram [Celexa] 40 mg tablet 40 mg PO DAILY Qty: 30 RF: 5 clozapine 100 mg tablet 300 mg PO .qhs Qty: 90 RF: 5 clozapine 50 mg tablet 50 mg PO BID Qty: 60 RF: 5 meloxicam 7.5 mg tablet 7.5 mg PO BID RF: 0 montelukast [Singulair] 10 mg tablet 10 mg PO DAILY RF: 0 Dexilant 60 mg capsule,biphase delayed releas 60 mg PO DAILY RF: 0 alprazolam [Xanax] 0.5 mg tablet 0.5 mg PO BID Qty: 60 RF: 5 Flonase Allergy Relief nasal spray syringe 2 spray NOSTRIL-B DAILY RF: 0 Ventolin HFA aerosol 2 puff inhalation Q4H PRN (Reason: Shortness Of Breath) RF: 0 docusate sodium 100 mg capsule 100 mg PO BID PRN (Reason: Constipation) RF: 0 oxybutynin chloride 15 mg Tablet Extended Release 24hr 15 mg PO DAILY RF: 0 tramadol 50 mg tablet 50 mg PO BID PRN (Reason: pain) Qty: 60 RF: 2 acetaminophen [Tylenol] 325 mg Tablet 325 - 650 mg PO PRN RF: 0 Discharge Orders: Discharge Order (Routine); Ordered 01/24/20 Ordered By: Lawrence Martinez Referrals: Grecia Kuhn MD [Primary Care Provider] - Tai Montgomery MD [Referring] - 01/29/20 12:10 pm (New patient visit. Appointment is at 12:40pm but they want you to arrive at 12:10pm for paperwork.) Slim Arguello DO [Staff Physician] - 02/19/20 2:00 pm Discharge Diet: Regular Discharge Activity: Resume usual activity Discharge Date/Time: 01/24/20 09:23 Attestations Medical Necessity Statement*: Inpatient hospitalization is not medically necessary or the clinically appropriate intervention, at this time. We will allow to discharge given she has no credible lethality. Time Spent in Patient Care*: greater than 30 min Specific Discharge Activities: Specific discharge activities: educating patient, discussing with heel caser/social workers/dc planners, documenting/other paperwork and evaluating patient/reviewing data Quality Metrics Clinical Quality Measures: During this hospital stay, did patient experience: None Coding Level of Care Code Acute Torch Cutter for 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
[2020-01-24 09:00] VITALS: BP 123/83; PULSE 95; RESP 15; TEMP 36.9; O2SAT 97
== END 2020-01-24 09:23 | disposition home or self-care (01) | DRG 881 ==
LOC: ER 15:46 → NP 15:51
PROVIDERS: Admitting Provider Psychiatry & Neurology Psychiatry; Emergency Provider Emergency Medicine; PCP Family Medicine; Visit Provider Psychiatry & Neurology Psychiatry
DX: F32.9 Major depressive disorder, single episode, unspecified (principal); R45.851 Suicidal ideations; F20.9 Schizophrenia, unspecified; E66.9 Obesity, unspecified; Z68.31 Body mass index [BMI] 31.0-31.9, adult; F63.9 Impulse disorder, unspecified; F17.210 Nicotine dependence, cigarettes, uncomplicated; Z79.899 Other long term (current) drug therapy
CPT/HCPCS: 12345; 36415; 80053; 80156; 80164; 80178; 80185; 80306; 80307; 81001; 81003; 81025; 84443; 85025; 85610; 93971; 96372; 99213; 99281; 99284; J1200; J1630

== ENCOUNTER 2020-01-25 11:51 | Emergency (ER) | payer MEDICARE, MEDICAID, SELFPAY ==
[2020-01-25 12:05] VITALS: BP 114/77; PULSE 116; RESP 18; TEMP 36.7; O2SAT 94; BMI 31.8
--- NOTE | 2020-01-25 12:15 | W.ED.RECABL ---
HPI - Recheck/Abnormal Lab/Rx General: Chief Complaint: Recheck/Abnormal Lab/Rx Stated Complaint: chronic pain/wants pain med Rx Time Seen by Provider: 01/25/20 12:13 History of Present Illness: HPI narrative: Patient is a 54-year-old female comes to the ED for chronic left leg pain and wanting pain meds. Patient has been to the ED for this complaint multiple times. Patient has a scheduled appointment with pain management on 28 January. Patient says pain is in the left lower extremity and it is chronic in nature. No injury or trauma to cause acute pain. Review of Systems Const: Denies: fever(s), chills or fatigue Eyes: Denies: change in vision or eye discomfort ENMT: Denies: throat pain, odynophagia, nasal discharge or nasal congestion Card: Denies: chest pain, palpitations, edema, swelling of feet/ankles, dyspnea on exertion or orthopnea Resp: Denies: dyspnea, productive cough or non-productive cough GI: Denies: abdominal pain, nausea, vomiting, diarrhea, constipation or hematochezia : Denies: flank pain, dysuria or hematuria Musc: Reports: extremity pain (chronic left leg pain); Denies: neck pain, back pain or extremity swelling Skin/Breast: Denies: rash or new lesions Neuro: Denies: headache(s), numbness in extremities or weakness in extremities [facility] ED PFSH: Medical History Cigarette nicotine dependence Major depressive disorder, single episode, in full remission 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 long 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 care 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 Other schizophrenia Other stimulant dependence, uncomplicated Family History Denies family history of Diabetes CAD (coronary artery disease) Cancer Hypertension Stroke Social History Smoking and tobacco status: current every day smoker cigarettes [ Other cigarette details: 5 daily ] Quit status (tobacco): considering quitting Second hand smoke exposure: Yes Alcohol intake: former History of recent travel: No Physical Exam Const: COMMON NORMALS: no acute distress, patient oriented x3 and alert GENERAL APPEARANCE: cooperative and comfortable HENMT: COMMON NORMALS: normocephalic HEAD & SCALP: normocephalic MOUTH: Normal oral and palatal mucosa present THROAT: posterior oropharynx normal and uvula midline Eye: COMMON NORMALS: Equal, round and reactive pupils present PUPIL: Yes Equal, round and reactive pupils present Neck/C-Spine: COMMON NORMALS: supple GENERAL: Yes normal visual inspection Resp: COMMON NORMALS: normal respiratory effort, No retractions, No use of accessory muscles and clear to auscultation bilaterally AUSCULTATION: clear to auscultation bilaterally Cardio: COMMON NORMALS: regular rate, regular rhythm, S1 normal heart sound present, S2 normal heart sound present, No gallops present (Cardio), No clicks present (Cardio), No murmurs present (Cardio) and Peripheral pulses 2+ throughout RATE: regular rate RHYTHM: regular rhythm HEART SOUNDS: S1 normal heart sound present and S2 normal heart sound present PERIPHERAL PULSES: Peripheral pulses 2+ throughout GI: COMMON NORMALS: Normal to inspection, nondistended, normoactive bowel sounds present, Soft to palpation, non-tender and no masses PALPATION: Yes Soft to palpation : COMMON NORMALS: Yes no CVA tenderness BLADDER/KIDNEY EXAM: Yes no CVA tenderness Back/Pelvis: COMMON NORMALS: no CVA tenderness Extremity: COMMON NORMALS: normal to inspection and no pedal edema Neuro: COMMON NORMALS: patient oriented x3 and moves all extremities SENSORIUM/ORIENTATION: Yes alert Skin: COMMON NORMALS: no rashes or lesions noted GENERAL SKIN EXAM: no rashes or lesions noted and dry skin Course Vital Signs: Vital signs: Vital Signs Temperature 98.1 F 01/25/20 12:05 Pulse Rate 116 H 01/25/20 12:05 Respiratory Rate 18 01/25/20 12:05 Blood Pressure 114/77 01/25/20 12:05 Pulse Oximetry 94 01/25/20 12:05 Discharge Plan Discharge Patient Disposition: Home, Self-Care Clinical Impression: Chronic pain of left lower extremity Condition: Stable Prescriptions: No Action mirtazapine 45 mg tablet 45 mg PO BEDTIME Qty: 30 RF: 5 citalopram [Celexa] 40 mg tablet 40 mg PO DAILY Qty: 30 RF: 5 clozapine 100 mg tablet 300 mg PO .qhs Qty: 90 RF: 5 clozapine 50 mg tablet 50 mg PO BID Qty: 60 RF: 5 meloxicam 7.5 mg tablet 7.5 mg PO BID RF: 0 montelukast [Singulair] 10 mg tablet 10 mg PO DAILY RF: 0 Dexilant 60 mg capsule,biphase delayed releas 60 mg PO DAILY RF: 0 alprazolam [Xanax] 0.5 mg tablet 0.5 mg PO BID Qty: 60 RF: 5 Flonase Allergy Relief nasal spray syringe 2 spray NOSTRIL-B DAILY RF: 0 Ventolin HFA aerosol 2 puff inhalation Q4H PRN (Reason: Shortness Of Breath) RF: 0 docusate sodium 100 mg capsule 100 mg PO BID PRN (Reason: Constipation) RF: 0 oxybutynin chloride 15 mg Tablet Extended Release 24hr 15 mg PO DAILY RF: 0 tramadol 50 mg tablet 50 mg PO BID PRN (Reason: pain) Qty: 60 RF: 2 acetaminophen [Tylenol] 325 mg Tablet 325 - 650 mg PO PRN RF: 0 Discharge Orders: Discharge Order (Routine); Ordered 01/25/20 Ordered By: Jax Stanley Referrals: Grecia Kuhn MD [Primary Care Provider] - Discharge Diet: Regular Discharge Activity: Increase activity as tolerated Activity Restrictions/Additional Instructions: Follow-up with medical provider at your scheduled pain management appointment. Take Tylenol for pain. Return to the ER or your medical provider if condition worsens. Please read and understand discharge instructions. If any questions, please ask. Coding Level of Care Code ED Funeral Attendant for Krystin Fwd Exam Comprehensive
[2020-01-25] MEDS: ketorolac 60 mg/2 mL INJ IM (12:49)
[2020-01-25 12:52] VITALS: BP 129/71; PULSE 70; RESP 20; O2SAT 98
== END 2020-01-25 12:53 | disposition home or self-care (01) ==
LOC: ER 12:42
PROVIDERS: Emergency Provider Physician Assistant; PCP Family Medicine
DX: G89.29 Other chronic pain (principal); M79.605 Pain in left leg; F17.210 Nicotine dependence, cigarettes, uncomplicated
CPT/HCPCS: 12345; 96372; 99281; 99282; J1885

== ENCOUNTER 2020-01-31 20:17 | Emergency (ER) | payer MEDICARE, MEDICAID, SELFPAY ==
--- NOTE | 2020-01-31 20:22 | XRR_ITS ---
PROCEDURE INFORMATION: Exam: XR Right Ankle Exam date and time: 01/31/2020 8:23 PM Age: 54 years old Clinical indication: Injury or trauma; Injury history: Twisted; Initial encounter; Swelling (edema); Ankle; Right TECHNIQUE: Imaging protocol: XR Right ankle. Views: 3 or more views. COMPARISON: No relevant prior studies available. FINDINGS: Bones/joints: Old healed metatarsal fractures. No acute fracture. Soft tissues: Mild lateral soft tissue swelling. XR/XR ankle RT min 3V* [id number] IMPRESSION: No acute fracture identified.
[2020-01-31 21:29] VITALS: BP 118/76; PULSE 100; RESP 18; TEMP 36.7; O2SAT 95; BMI 31.8
--- NOTE | 2020-01-31 22:27 | ED_ITS ---
HPI - Extremity Problem General: Chief complaint: Extremity Injury, Lower Stated complaint: right ankle injury Time Seen by Provider: 01/31/20 22:25 Source: patient Mode of arrival: ambulatory Limitations: no limitations History of Present Illness: HPI Narrative: 54-year-old female who is well- known to the ER states she was playing basketball earlier today and twisted her right ankle. She has ankle pain she rates a 2 out of 10. Patient denies any other injuries. Denies any knee or hip pain Associated symptoms: Deny chest pain, fever(s) or rash Review of Systems Const: Denies: fever(s), chills, body aches or change in appetite Eyes: Denies: blurry vision or eye discomfort ENMT: Denies: throat pain or dental pain Card: Denies: chest pain Resp: Denies: dyspnea GI: Denies: abdominal pain, nausea, vomiting or diarrhea : Denies: dysuria Musc: Reports: joint pain Skin/Breast: Denies: rash Neuro: Denies: headache(s) Psych: Denies: depression Trevon/Lymph: Denies: easy bruising All/Imm: Denies: urticaria PFSH ED PFSH: Medical History (Updated 01/31/20 @ 22:30 by Kade Smith MD) Cigarette nicotine dependence Major depressive disorder, single episode, in full remission 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 Other schizophrenia Other stimulant dependence, uncomplicated Family History Denies family history of Diabetes CAD (coronary artery disease) Cancer Hypertension Stroke Social History Smoking and tobacco status: current every day smoker cigarettes [ Other cigarette details: 5 daily ] Quit status (tobacco): considering quitting Second hand smoke exposure: Yes Alcohol intake: former History of recent travel: No Physical Exam Const: COMMON NORMALS: no acute distress, patient oriented x3 and healthy appearing HENMT: COMMON NORMALS: normocephalic and atraumatic HEAD & SCALP: normocephalic and atraumatic Eye: COMMON NORMALS: Equal, round and reactive pupils present and EOMs intact bilaterally PUPIL: Yes Equal, round and reactive pupils present Neck/C-Spine: COMMON NORMALS: full ROM and supple Chest: COMMONS NORMALS: normal inspection of the chest and normal palpation of entire chest wall Resp: COMMON NORMALS: normal respiratory effort, No retractions, No use of accessory muscles and clear to auscultation bilaterally AUSCULTATION: clear to auscultation bilaterally Cardio: COMMON NORMALS: regular rate, regular rhythm and No murmurs present (Cardio) RATE: regular rate RHYTHM: regular rhythm GI: COMMON NORMALS: Normal to inspection, nondistended, normoactive bowel sounds present, Soft to palpation, non-tender and no masses PALPATION: Yes Soft to palpation Extremity: COMMON NORMALS: normal to inspection NARRATIVE EXTREMITY EXAM: Slight tenderness to right lateral ankle with no swelling or deformity. Neuro: COMMON NORMALS: patient oriented x3, moves all extremities and no focal motor deficits Psych: COMMON NORMALS: mental status grossly normal, Normal thought process present and cooperative THOUGHT PROCESS: Normal thought process present Skin: COMMON NORMALS: no rashes or lesions noted and no wounds GENERAL SKIN EXAM: no rashes or lesions noted Course Vital Signs: Vital signs: Vital Signs Temperature 98.1 F 01/31/20 21:29 Pulse Rate 100 01/31/20 21:29 Respiratory Rate 18 01/31/20 21:29 Blood Pressure 118/76 01/31/20 21:29 Pulse Oximetry 95 01/31/20 21:29 MDM - Extremity (Nontraumatic) MDM Narrative: Medical decision making narrative: Patient presents here with an ankle sprain and has minimal swelling. Patient had an Donnie wrap placed and is stable for discharge. She is to ice it as well. Imaging Data^: xr r ankle: Attestation: I personally reviewed and interpreted this imaging study as follows: My impression: no acute abnormality Discharge Plan Discharge Patient Disposition: Home, Self-Care Clinical Impression: Ankle sprain and strain Condition: Stable Prescriptions: No Action mirtazapine 45 mg tablet 45 mg PO BEDTIME Qty: 30 RF: 5 citalopram [Celexa] 40 mg tablet 40 mg PO DAILY Qty: 30 RF: 5 clozapine 100 mg tablet 300 mg PO .qhs Qty: 90 RF: 5 clozapine 50 mg tablet 50 mg PO BID Qty: 60 RF: 5 meloxicam 7.5 mg tablet 7.5 mg PO BID RF: 0 montelukast [Singulair] 10 mg tablet 10 mg PO DAILY RF: 0 Dexilant 60 mg capsule,biphase delayed releas 60 mg PO DAILY RF: 0 alprazolam [Xanax] 0.5 mg tablet 0.5 mg PO BID Qty: 60 RF: 5 Flonase Allergy Relief nasal spray syringe 2 spray NOSTRIL-B DAILY RF: 0 Ventolin HFA aerosol 2 puff inhalation Q4H PRN (Reason: Shortness Of Breath) RF: 0 docusate sodium 100 mg capsule 100 mg PO BID PRN (Reason: Constipation) RF: 0 oxybutynin chloride 15 mg Tablet Extended Release 24hr 15 mg PO DAILY RF: 0 tramadol 50 mg tablet 50 mg PO BID PRN (Reason: pain) Qty: 60 RF: 2 acetaminophen [Tylenol] 325 mg Tablet 325 - 650 mg PO PRN RF: 0 Discharge Orders: Discharge Order (Routine); Ordered 01/31/20 Ordered By: Kade Smith Referrals: Grecia Kuhn MD [Primary Care Provider] - 1-3 days Discharge Diet: Advance as tolerated Discharge Activity: Resume usual activity Patient Instructions: Ankle Sprain (ED) Coding Level of Care Code ED Copper Miner Blasting for Chg Fwd Exam Comprehensive
[2020-01-31] MEDS: ketorolac 30 mg/mL INJ IM (22:51)
--- NOTE | 2020-01-31 22:53 | PC.NURSE ---
Acewrap applied right ankle, good pulses and sensation pre and post application. Pain meds given.
[2020-01-31 23:11] VITALS: BP 116/68; PULSE 72; RESP 14; O2SAT 98
== END 2020-01-31 23:14 | disposition home or self-care (01) ==
PROVIDERS: Emergency Provider Emergency Medicine; PCP Family Medicine
DX: S93.401A Sprain of unspecified ligament of right ankle, initial encounter (principal); S96.911A Strain of unspecified muscle and tendon at ankle and foot level, right foot, initial encounter; X50.1XXA Overexertion from prolonged static or awkward postures, initial encounter; Y93.67 Activity, basketball; F17.210 Nicotine dependence, cigarettes, uncomplicated
CPT/HCPCS: 12345; 73610; 96372; 99281; 99283; J1885

== ENCOUNTER 2020-02-13 15:10 | Emergency (ER) | payer MEDICARE, MEDICAID, SELFPAY ==
[2020-02-13 15:11] VITALS: BP 117/81; PULSE 108; RESP 16; TEMP 36.7; O2SAT 94; BMI 31.8
[2020-02-13 15:33] VITALS: BP 108/76; PULSE 106; RESP 18; O2SAT 95
[2020-02-13 15:39] VITALS: BP 108/76; PULSE 104; RESP 18; O2SAT 95
[2020-02-13] MEDS: orphenadrine 30 mg/mL Inj 2 mL 60 MG IVP (15:46)
[2020-02-13] MEDS: ketorolac 30 mg/mL INJ IVP (15:46)
[2020-02-13 15:50] LABS: Basophils % 0.2 %; Eosinophils % 0.1 %; Hematocrit 41.3 % (37.0-47.0); Hemoglobin 13.1 g/dL (11.5-15.3); Lymphocytes # 2.7 10^3/uL (0.8-4.8); Lymphocytes % 19.9 %; Mean Corpuscular HGB Conc 31.7 g/dL (30.0-36.0); Mean Corpuscular Hemoglobin 28.7 pg (28.0-34.0); Mean Corpuscular Volume 90.4 fL (81-99); Mean Platelet Volume 9.7 fL (7.4-10.4); Monocytes # 1.1 10^3/uL (0.2-0.9); Monocytes % 8.4 %; Neutrophils # 9.56 10^3/uL (1.8-7.7); Neutrophils % 70.7 %; Nucleated Red Blood Cells % 0 %; Platelet Count 314 10^3/cmm (130-400); Red Blood Count 4.57 10^6/uL (4.1-5.3); Red Cell Distribution Width 14.4 % (12.1-15.1); White Blood Count 13.5 10^3/uL (4.0-10.0)
--- NOTE | 2020-02-13 15:54 | W.ED.GENADLT ---
HPI - General Adult General: Chief complaint: General Medical Stated complaint: NOT FEELING WELL/ TIRED Time Seen by Provider: 02/13/20 15:15 Source: patient Mode of arrival: EMS Limitations: no limitations History of Present Illness: HPI narrative: Patient is a 54-year-old female who presents to ED today with a complaint of neck pain x 2-3 days. Patient tells me she has chronic neck pain and sometimes pain will flareup . Patient tells me her neck pain today feels similar to previous flares. She also is having a complaint of drooling in the middle of the night and increased thirst. Patient reports no history of diabetes. She also reports feeling warm although states she has never actually ran a fever. She is not having a headache or visual changes. Pain Consistency: constant Associated symptoms: Deny chest pain, confusion, dyspnea, headache(s), malaise, nausea, rash or vomiting Review of Systems Const: Reports: other ( feels warm ); Denies: chills, body aches, change in appetite, change in weight, fatigue or malaise Eyes: Denies: change in vision, blurry vision, photophobia, floaters or seeing flashes ENMT: Denies: throat pain or odynophagia Card: Denies: chest pain Resp: Denies: dyspnea GI: Denies: abdominal pain, nausea or vomiting Musc: Reports: neck pain; Denies: back pain, extremity pain, extremity swelling, joint pain or joint swelling Skin/Breast: Denies: rash Neuro: Denies: headache(s), numbness in extremities, weakness in extremities, sensory changes, lack of coordination, dizziness, vertigo, confusion or Slurred speech present [facility] ED PFSH: Medical History (Updated 02/13/20 @ 16:34 by MAGDA Horowitz) Cigarette nicotine dependence Major depressive disorder, single episode, in full remission 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 Other schizophrenia Other stimulant dependence, uncomplicated Family History Denies family history of Diabetes CAD (coronary artery disease) Cancer Hypertension Stroke Social History Smoking and tobacco status: current every day smoker cigarettes [ Other cigarette details: 5 daily ] Quit status (tobacco): considering quitting Second hand smoke exposure: Yes Alcohol intake: former History of recent travel: No Physical Exam Const: COMMON NORMALS: no acute distress, patient oriented x3, no limitations and alert ORIENTATION/CONSCIOUSNESS: Yes oriented to person, Yes oriented to place and Yes oriented to time HENMT: COMMON NORMALS: normocephalic and atraumatic HEAD & SCALP: normocephalic and atraumatic Eye: COMMON NORMALS: Equal, round and reactive pupils present, EOMs intact bilaterally, conjunctivae normal and no scleral icterus CONJUNCTIVA: Yes conjunctivae normal PUPIL: Yes Equal, round and reactive pupils present Neck/C-Spine: COMMON NORMALS: full ROM, no lymphadenopathy and no meningeal signs CERVICAL SPINE: Yes Cervical spine tenderness (lower c spine) Resp: COMMON NORMALS: normal respiratory effort and clear to auscultation bilaterally AUSCULTATION: clear to auscultation bilaterally Cardio: COMMON NORMALS: regular rate and regular rhythm RATE: regular rate RHYTHM: regular rhythm Extremity: GENERAL: Yes normal exam except as noted Neuro: [place] COMA SCALE: document GCS findings [place] coma scale eye opening: Spontaneous [place] coma scale verbal response: Orientated [place] coma scale motor response: Obey commands [place] coma scale total score: 15 COMMON NORMALS: patient oriented x3, CN's II-XII intact bilaterally, moves all extremities, no focal motor deficits, no sensory deficits noted and gait normal SENSORIUM/ORIENTATION: Yes alert, Yes oriented to person, Yes oriented to place and Yes oriented to time MENINGEAL SIGNS: Yes no meningeal signs Skin: COMMON NORMALS: no rashes or lesions noted GENERAL SKIN EXAM: no rashes or lesions noted Course Vital Signs: Vital signs: Vital Signs Temperature 98.1 F 02/13/20 15:11 Pulse Rate 104 H 02/13/20 15:39 Respiratory Rate 18 02/13/20 15:39 Blood Pressure 108/76 02/13/20 15:39 Pulse Oximetry 95 02/13/20 15:39 MDM - General Adult MDM Narrative: Medical decision making narrative: pt reports feeling better after IV toradol and norflex; labs and vitals are non-concerning; she is stable for DC at this time Lab Data: Labs: Lab Results 02/13/20 02/13/20 Range/Units 14:50 14:50 WBC 13.5 H (4.0-10.0) 10^3/ uL RBC 4.57 (4.1-5.3) 10^6/u L Hgb 13.1 (11.5-15.3) g/dL Hct 41.3 (37.0-47.0) % MCV 90.4 (81-99) fL MCH 28.7 (28.0-34.0) pg MCHC 31.7 (30.0-36.0) g/dL RDW 14.4 (12.1-15.1) % Plt Count 314 (130-400) 10^3/c mm MPV 9.7 (7.4-10.4) fL Neut % (Auto) 70.7 % Lymph % (Auto) 19.9 % [place] % (Auto) 8.4 % Eos % (Auto) 0.1 % Baso % (Auto) 0.2 % Neut # (Auto) 9.56 H (1.8-7.7) 10^3/u L Lymph # (Auto) 2.7 (0.8-4.8) 10^3/u L [place] # (Auto) 1.1 H (0.2-0.9) 10^3/u L Eos # (Auto) 0.0 (0.0-0.8) 10^3/u L Baso # (Auto) 0.0 (0.0-0.1) 10^3/u L Nucleated RBC % (a uto) 0 % Nucleated RBCs # 0.0 /100WBC Sodium 137 (136-145) mmol/L Potassium 4.1 (3.5-5.1) mmol/L Chloride 99 (98-107) mmol/L Carbon Dioxide 26 (22-29) mmol/L Anion Gap 16.1 (5-19) BUN 22 H (6-20) mg/dL Creatinine 0.7 (0.5-0.9) mg/dL GFR Calculation 86.9 L (90-130) mL/min Glucose 87 (65-115) mg/dL Calculated Osmolal ity 280 L (285-295) mOsm/k g Calcium 10.1 (8.5-10.5) mg/dL Total Bilirubin 0.2 (0.15-1.2) mg/dL AST 19 (0-32) U/L ALT 20 (0-33) U/L Alkaline Phosphata se 125 H (35-105) IU/L Total Protein 7.6 (6.6-8.7) g/dL Albumin 4.9 (3.5-5.2) g/dL Globulin 2.7 (1.3-4.6) g/dL Discharge Plan Discharge Patient Disposition: Home Clinical Impression: Chronic neck pain, Feeling of warmness Condition: Stable Prescriptions: New cyclobenzaprine 10 mg tablet 10 mg PO TID Qty: 14 RF: 0 No Action mirtazapine 45 mg tablet 45 mg PO BEDTIME Qty: 30 RF: 5 citalopram [Celexa] 40 mg tablet 40 mg PO DAILY Qty: 30 RF: 5 clozapine 100 mg tablet 300 mg PO .qhs Qty: 90 RF: 5 clozapine 50 mg tablet 50 mg PO BID Qty: 60 RF: 5 meloxicam 7.5 mg tablet 7.5 mg PO BID RF: 0 montelukast [Singulair] 10 mg tablet 10 mg PO DAILY RF: 0 Dexilant 60 mg capsule,biphase delayed releas 60 mg PO DAILY RF: 0 alprazolam [Xanax] 0.5 mg tablet 0.5 mg PO BID Qty: 60 RF: 5 Flonase Allergy Relief nasal spray syringe 2 spray NOSTRIL-B DAILY RF: 0 Ventolin HFA aerosol 2 puff inhalation Q4H PRN (Reason: Shortness Of Breath) RF: 0 docusate sodium 100 mg capsule 100 mg PO BID PRN (Reason: Constipation) RF: 0 oxybutynin chloride 15 mg Tablet Extended Release 24hr 15 mg PO DAILY RF: 0 acetaminophen [Tylenol] 325 mg Tablet 325 - 650 mg PO PRN RF: 0 Discharge Orders: Discharge Order (Routine); Ordered 02/13/20 Ordered By: Zayda Villavicencio Referrals: Grecia Kuhn MD [Primary Care Provider] - Activity Restrictions/Additional Instructions: Please followup with primary care in 3-5 days for continued pain. May return to ED for any concerns you may have. Coding Level of Care Code ED Lead Atg Developer for 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
[2020-02-13 16:12] LABS: Alanine Aminotransferase 20 U/L (0-33); Albumin Level 4.9 g/dL (3.5-5.2); Alkaline Phosphatase 125 IU/L (35-105); Anion Gap 16.1 (5-19); Aspartate Amino Transferase 19 U/L (0-32); Blood Urea Nitrogen 22 mg/dL (6-20); Calcium 10.1 mg/dL (8.5-10.5); Carbon Dioxide 26 mmol/L (22-29); Chloride 99 mmol/L (98-107); Globulin 2.7 g/dL (1.3-4.6); Glomerular Filtration Rate 86.9 mL/min (90-130); Glucose 87 mg/dL (65-115); Osmolality Calculated 280 mOsm/kg (285-295); Potassium 4.1 mmol/L (3.5-5.1); Sodium 137 mmol/L (136-145); Total Bilirubin 0.2 mg/dL (0.15-1.2); Total Protein 7.6 g/dL (6.6-8.7)
[2020-02-13 16:45] VITALS: BP 118/81; PULSE 97; RESP 16; TEMP 36.4; O2SAT 94
== END 2020-02-13 16:47 | disposition home or self-care (01) ==
PROVIDERS: Emergency Provider Physician Assistant; PCP Family Medicine
DX: G89.29 Other chronic pain (principal); M54.2 Cervicalgia; F17.210 Nicotine dependence, cigarettes, uncomplicated
CPT/HCPCS: 12345; 80053; 85025; 96374; 96375; 99282; 99283; J1885; J2360

== ENCOUNTER → 2020-02-20 07:28 | Outpatient (BNVA) | payer MEDICARE, MEDICAID, SELFPAY | PROVIDERS: PCP Family Medicine; Visit Provider Psychiatry & Neurology Psychiatry | DX: F20.89 Other schizophrenia (principal); F32.5 Major depressive disorder, single episode, in full remission; F17.210 Nicotine dependence, cigarettes, uncomplicated; F43.12 Post-traumatic stress disorder, chronic | CPT/HCPCS: 99213 ==

== ENCOUNTER 2020-03-01 03:51 | Emergency (ER) | payer MEDICARE, MEDICAID, SELFPAY ==
[2020-03-01 03:53] VITALS: BP 146/91; PULSE 110; RESP 24; TEMP 36.7; O2SAT 97; BMI 31.8
--- NOTE | 2020-03-01 04:16 | ED_ITS ---
HPI - Anxiety General: Chief Complaint: Anxiety Stated Complaint: Anxiety, Muscle Spasms Time Seen by Provider: 03/01/20 03:57 History of Present Illness: HPI narrative: 54-year-old female well-known to the emergency department she comes in this morning complaining of cramping pain to her bilateral lower extremities, left worse than right. Associated symptoms: Reports nausea; Deny chest pain, chills, fever(s), headache(s), palpitations or vomiting Review of Systems Const: Denies: fever(s) or chills Eyes: Denies: blurry vision ENMT: Denies: swelling of lips/tongue, change in hearing, post nasal drip or sinus pain Card: Denies: chest pain, palpitations or edema Resp: Denies: dyspnea, productive cough, non-productive cough or wheezing GI: Reports: nausea; Denies: abdominal pain or vomiting : Denies: dysuria or hematuria Musc: Reports: back pain; Denies: neck pain Skin/Breast: Denies: rash, pruritus or erythema Neuro: Denies: headache(s), dizziness or vertigo Psych: Reports: anxiety and auditory hallucinations PFS ED PFSH: Medical History (Updated 03/01/20 @ 05:42 by Tai Sebastian DO) Cigarette nicotine dependence Major depressive disorder, single episode, in full remission 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 Other schizophrenia Other stimulant dependence, uncomplicated Family History Denies family history of Diabetes CAD (coronary artery disease) Cancer Hypertension Stroke Social History Smoking and tobacco status: current every day smoker cigarettes [ Other c igarette details: 5 daily ] Quit status (tobacco): considering quitting Second hand smoke exposure: Yes Alcohol intake: former History of recent travel: No Physical Exam Const: GENERAL APPEARANCE: anxious ORIENTATION/CONSCIOUSNESS: Yes oriented to person, Yes oriented to place and Yes oriented to time HENMT: COMMON NORMALS: normocephalic, external ears normal and Normal external nose present HEAD & SCALP: normocephalic FACE & SINUS: normal facial exam NOSE: Normal external nose present and No nasal discharge present EXTERNAL EAR: Yes external ears normal MOUTH: tongue normal Eye: COMMON NORMALS: Equal, round and reactive pupils present, EOMs intact bilaterally and conjunctivae normal EYELID: eyelids normal CONJUNCTIVA: Yes conjunctivae normal PUPIL: Yes Equal, round and reactive pupils present Neck/C-Spine: GENERAL: No tracheal deviation Chest: COMMONS NORMALS: normal inspection of the chest CHEST: No tenderness Resp: COMMON NORMALS: clear to auscultation bilaterally EFFORT & INSPECTION: No tachypneic, No respiratory distress, No retractions, No uses accessory muscles and No tracheal deviation AUSCULTATION: clear to auscultation bilaterally, no rhonchi, no wheezes and lung sounds not diminished Cardio: COMMON NORMALS: regular rate and regular rhythm RATE: regular rate RHYTHM: regular rhythm HEART SOUNDS: no murmurs PERIPHERAL PULSES: radial pulses present GI: INSPECTION: No abdominal distension AUSCULTATION: No Hyperactive bowel sounds present and No Hypoactive bowel sounds present PALPATION: No Guarding due to palpation present (GI) and No Rigid due to palpation PERCUSSION: no dullness to percussion and no tympanic to percussion Neuro: SENSORIUM/ORIENTATION: Yes oriented to person, Yes oriented to place and Yes oriented to time Psych: COMMON NORMALS: speech normal APPEARANCE: Yes grossly normal ATTITUDE: Yes agitated ACTIVITY/MOTOR BEHAVIOR: Yes psychomotor agitation and Yes fidgeting SPEECH: Yes normal speech MOOD & AFFECT: Yes anxious THOUGHT PROCESS: Circumstantial thought process present ATTENTION/CONCENTRATION: Yes attention grossly intact MEMORY/COGNITION: Yes memory grossly intact Skin: COMMON NORMALS: no rashes or lesions noted GENERAL SKIN EXAM: no rashes or lesions noted Course Vital Signs: Vital signs: Vital Signs Temperature 98.0 F 03/01/20 03:53 Pulse Rate 102 H 03/01/20 05:14 Respiratory Rate 16 03/01/20 05:14 Blood Pressure 128/87 03/01/20 05:14 Pulse Oximetry 99 03/01/20 05:14 MDM - Anxiety MDM Narrative: Medical decision making narrative: Symptoms of anxiety are improved after ziprasidone and Ativan. She still fidgeting a bit. She states she is nauseated. We will give her an antiemetic. She will follow-up with psychiatry. She is not suicidal or homicidal. Lab Data: Labs: Lab Results 03/01/20 03/01/20 Range/Units 04:18 04:18 WBC 14.1 H (4.0-10.0) 10^3/ uL RBC 4.71 (4.1-5.3) 10^6/u L Hgb 13.9 (11.5-15.3) g/dL Hct 42.2 (37.0-47.0) % MCV 89.6 (81-99) fL MCH 29.5 (28.0-34.0) pg MCHC 32.9 (30.0-36.0) g/dL RDW 14.2 (12.1-15.1) % Plt Count 307 (130-400) 10^3/c mm MPV 9.4 (7.4-10.4) fL Neut % (Auto) 75.8 % Lymph % (Auto) 14.8 % [place] % (Auto) 8.8 % Eos % (Auto) 0.1 % Baso % (Auto) 0.1 % Neut # (Auto) 10.73 H (1.8-7.7) 10^3/u L Lymph # (Auto) 2.1 (0.8-4.8) 10^3/u L [place] # (Auto) 1.2 H (0.2-0.9) 10^3/u L Eos # (Auto) 0.0 (0.0-0.8) 10^3/u L Baso # (Auto) 0.0 (0.0-0.1) 10^3/u L Nucleated RBC % (a uto) 0 % Nucleated RBCs # 0.0 /100WBC Sodium 136 (136-145) mmol/L Potassium 4.1 (3.5-5.1) mmol/L Chloride 99 (98-107) mmol/L Carbon Dioxide 27 (22-29) mmol/L Anion Gap 14.1 (5-19) BUN 10 (6-20) mg/dL Creatinine 0.7 (0.5-0.9) mg/dL GFR Calculation 86.9 L (90-130) mL/min Glucose 122 H (65-115) mg/dL Calculated Osmolal ity 279 L (285-295) mOsm/k g Calcium 10.3 (8.5-10.5) mg/dL Magnesium 2.1 (1.7-2.3) mg/dL Total Bilirubin 0.3 (0.15-1.2) mg/dL AST 40 H (0-32) U/L ALT 24 (0-33) U/L Alkaline Phosphata se 142 H (35-105) IU/L Total Protein 7.8 (6.6-8.7) g/dL Albumin 4.8 (3.5-5.2) g/dL Globulin 3.0 (1.3-4.6) g/dL Salicylates < 0.3 L (3-10) mg/dL Acetaminophen < 5.0 L (10-30) ug/mL Ethyl Alcohol < 10 (0-10) mg/dL Discharge Plan Discharge Patient Disposition: Home Clinical Impression: Acute anxiety, Cramp in muscle Condition: Stable Prescriptions: New Zofran 4 mg tablet 4 mg PO Q6H PRN (Reason: nausea and vomiting) Qty: 10 RF: 0 No Action mirtazapine 45 mg tablet 45 mg PO BEDTIME Qty: 30 RF: 5 citalopram [Celexa] 40 mg tablet 40 mg PO DAILY Qty: 30 RF: 5 clozapine 100 mg tablet 300 mg PO .qhs Qty: 90 RF: 5 clozapine 50 mg tablet 50 mg PO BID Qty: 60 RF: 5 meloxicam 7.5 mg tablet 7.5 mg PO BID RF: 0 montelukast [Singulair] 10 mg tablet 10 mg PO DAILY RF: 0 Dexilant 60 mg capsule,biphase delayed releas 60 mg PO DAILY RF: 0 alprazolam [Xanax] 0.5 mg tablet 0.5 mg PO BID Qty: 60 RF: 5 Flonase Allergy Relief nasal spray syringe 2 spray NOSTRIL-B DAILY RF: 0 Ventolin HFA aerosol 2 puff inhalation Q4H PRN (Reason: Shortness Of Breath) RF: 0 cyclobenzaprine 10 mg tablet 10 mg PO TID Qty: 14 RF: 0 docusate sodium 100 mg capsule 100 mg PO BID PRN (Reason: Constipation) RF: 0 oxybutynin chloride 15 mg Tablet Extended Release 24hr 15 mg PO DAILY RF: 0 acetaminophen [Tylenol] 325 mg Tablet 325 - 650 mg PO PRN RF: 0 Discharge Orders: Discharge Order (Routine); Ordered 03/01/20 Ordered By: Tai Sebastian Referrals: Grecia Kuhn MD [Primary Care Provider] - 4-7 days Discharge Diet: Advance as tolerated Discharge Activity: Resume usual activity Patient Instructions: Leg Cramps (ED), Anxiety (ED) Coding Level of Care Code ED Corporate Communications Manager for Krystin Fwd Exam Comprehensive
[2020-03-01 04:23] LABS: Basophils % 0.1 %; Eosinophils % 0.1 %; Hematocrit 42.2 % (37.0-47.0); Hemoglobin 13.9 g/dL (11.5-15.3); Lymphocytes # 2.1 10^3/uL (0.8-4.8); Lymphocytes % 14.8 %; Mean Corpuscular HGB Conc 32.9 g/dL (30.0-36.0); Mean Corpuscular Hemoglobin 29.5 pg (28.0-34.0); Mean Corpuscular Volume 89.6 fL (81-99); Mean Platelet Volume 9.4 fL (7.4-10.4); Monocytes # 1.2 10^3/uL (0.2-0.9); Monocytes % 8.8 %; Neutrophils # 10.73 10^3/uL (1.8-7.7); Neutrophils % 75.8 %; Nucleated Red Blood Cells % 0 %; Platelet Count 307 10^3/cmm (130-400); Red Blood Count 4.71 10^6/uL (4.1-5.3); Red Cell Distribution Width 14.2 % (12.1-15.1); White Blood Count 14.1 10^3/uL (4.0-10.0)
[2020-03-01] MEDS: LORazepam 2 mg Tablet PO (04:30)
[2020-03-01] MEDS: ziprasidone 20 mg/mL SDV 10 MG IM (04:31)
[2020-03-01 04:41] LABS: Alanine Aminotransferase 24 U/L (0-33); Albumin Level 4.8 g/dL (3.5-5.2); Alkaline Phosphatase 142 IU/L (35-105); Anion Gap 14.1 (5-19); Aspartate Amino Transferase 40 U/L (0-32); Blood Urea Nitrogen 10 mg/dL (6-20); Calcium 10.3 mg/dL (8.5-10.5); Carbon Dioxide 27 mmol/L (22-29); Chloride 99 mmol/L (98-107); Glomerular Filtration Rate 86.9 mL/min (90-130); Glucose 122 mg/dL (65-115); Magnesium 2.1 mg/dL (1.7-2.3); Osmolality Calculated 279 mOsm/kg (285-295); Potassium 4.1 mmol/L (3.5-5.1); Sodium 136 mmol/L (136-145); Total Bilirubin 0.3 mg/dL (0.15-1.2); Total Protein 7.8 g/dL (6.6-8.7)
[2020-03-01 04:46] LABS: Acetaminophen < 5.0 ug/mL (10-30); Alcohol Level < 10 mg/dL (0-10); Salicylate < 0.3 mg/dL (3-10)
--- NOTE | 2020-03-01 05:04 | PC.NURSE ---
Patient approached nursing station, requesting to speak with Dr. Sebastian. Informed patient the doctor was seeing another patient at this time. Inquired on how staff could better meet her needs or provide her anything to make her more comfortable, patient declined at this time. NAD noted. Patient ambulatory on her own, without assistive device. Will continue to monitor.
[2020-03-01 05:14] VITALS: BP 128/87; PULSE 102; RESP 16; O2SAT 99
[2020-03-01 06:11] VITALS: BP 132/87; PULSE 98; RESP 14; O2SAT 98
== END 2020-03-01 07:05 | disposition home or self-care (01) ==
PROVIDERS: Emergency Provider Emergency Medicine; PCP Family Medicine
DX: F41.9 Anxiety disorder, unspecified (principal); R25.2 Cramp and spasm; F17.210 Nicotine dependence, cigarettes, uncomplicated
CPT/HCPCS: 12345; 80053; 80307; 83735; 85025; 96372; 99282; 99283; J3486

== ENCOUNTER 2020-03-01 19:55 | Emergency (ER) | payer MEDICARE, MEDICAID, SELFPAY ==
[2020-03-01 19:57] VITALS: BP 126/89; PULSE 119; RESP 14; TEMP 37; O2SAT 96; BMI 31.8
--- NOTE | 2020-03-01 19:59 | ED_ITS ---
HPI - General Adult General: Chief complaint: General Medical Stated complaint: spasms Time Seen by Provider: 03/01/20 19:56 Source: patient and EMS Mode of arrival: EMS Limitations: no limitations History of Present Illness: HPI narrative: 54-year-old female who is well- known to the ER. States she woke up this morning with severe right upper quadrant abdominal pain. Patient states her pain is sharp in nature. She denies any vomiting or diarrhea. Patient appears anxious here. She denies any worsening or improving factors. Associated symptoms: Reports nausea; Deny chest pain, dyspnea, headache(s) or rash Review of Systems Const: Denies: fever(s), chills, body aches or change in appetite Eyes: Denies: blurry vision or eye discomfort ENMT: Denies: throat pain or dental pain Card: Denies: chest pain Resp: Denies: dyspnea GI: Reports: abdominal pain and nausea : Denies: dysuria Musc: Denies: neck pain or back pain Skin/Breast: Denies: rash Neuro: Denies: headache(s) Psych: Denies: depression Trevon/Lymph: Denies: easy bruising All/Imm: Denies: urticaria PFSH ED PFSH: Medical History Cigarette nicotine dependence Major depressive disorder, single episode, in full remission Other penitentiary (current) drug therapy Other schizophrenia Other stimulant dependence, uncomplicated Family History Denies family history of Diabetes CAD (coronary artery disease) Cancer Hypertension Stroke Social History Smoking and tobacco status: current every day smoker cigarettes [ Other cigarette details: 5 daily ] Quit status (tobacco): considering quitting Second hand smoke exposure: Yes Alcohol intake: former History of recent travel: No Physical Exam Const: COMMON NORMALS: no acute distress, patient oriented x3 and healthy appearing HENMT: COMMON NORMALS: normocephalic and atraumatic HEAD & SCALP: normocephalic and atraumatic Eye: COMMON NORMALS: Equal, round and reactive pupils present and EOMs intact bilaterally PUPIL: Yes Equal, round and reactive pupils present Neck/C-Spine: COMMON NORMALS: full ROM and supple Chest: COMMONS NORMALS: normal inspection of the chest and normal palpation of entire chest wall Resp: COMMON NORMALS: normal respiratory effort, No retractions, No use of accessory muscles and clear to auscultation bilaterally AUSCULTATION: clear to auscultation bilaterally Cardio: COMMON NORMALS: regular rate, regular rhythm and No murmurs present (Cardio) RATE: regular rate RHYTHM: regular rhythm GI: COMMON NORMALS: Normal to inspection, nondistended, normoactive bowel sounds present, Soft to palpation, non-tender and no masses PALPATION: Yes Soft to palpation Extremity: COMMON NORMALS: normal to inspection and full ROM Neuro: COMMON NORMALS: patient oriented x3, moves all extremities and no focal motor deficits Psych: COMMON NORMALS: mental status grossly normal, Normal thought process present and cooperative MOOD & AFFECT: Yes anxious THOUGHT PROCESS: Normal thought process present Skin: COMMON NORMALS: no rashes or lesions noted and no wounds GENERAL SKIN EXAM: no rashes or lesions noted Course Vital Signs: Vital signs: Vital Signs Temperature 98.6 F 03/01/20 19:57 Pulse Rate 105 H 03/01/20 21:41 Respiratory Rate 14 03/01/20 21:41 Blood Pressure 110/86 03/01/20 21:41 Pulse Oximetry 96 03/01/20 21:41 MDM - General Adult MDM Narrative: Medical decision making narrative: Patient presents with abdominal pain. Patient's white count is unchanged for the last few times. Ultrasound shows no signs of cholecystitis. Abdominal exam at discharge is benign and she has no signs of acute surgical abdomen. Liver enzymes are normal. She is stable for discharge and return if worsening. Lab Data: Labs: Lab Results 03/01/20 03/01/20 Range/Units 20:05 20:05 WBC 14.9 H (4.0-10.0) 10^3/ uL RBC 4.91 (4.1-5.3) 10^6/u L Hgb 14.0 (11.5-15.3) g/dL Hct 44.3 (37.0-47.0) % MCV 90.2 (81-99) fL MCH 28.5 (28.0-34.0) pg MCHC 31.6 (30.0-36.0) g/dL RDW 14.3 (12.1-15.1) % Plt Count 339 (130-400) 10^3/c mm MPV 9.4 (7.4-10.4) fL Neut % (Auto) 73.5 % Lymph % (Auto) 16.8 % Kaufman % (Auto) 8.9 % Eos % (Auto) 0.1 % Baso % (Auto) 0.1 % Neut # (Auto) 10.93 H (1.8-7.7) 10^3/u L Lymph # (Auto) 2.5 (0.8-4.8) 10^3/u L Kaufman # (Auto) 1.3 H (0.2-0.9) 10^3/u L Eos # (Auto) 0.0 (0.0-0.8) 10^3/u L Baso # (Auto) 0.0 (0.0-0.1) 10^3/u L Nucleated RBC % (a uto) 0 % Nucleated RBCs # 0.0 /100WBC Sodium 134 L (136-145) mmol/L Potassium 4.4 (3.5-5.1) mmol/L Chloride 96 L (98-107) mmol/L Carbon Dioxide 26 (22-29) mmol/L Anion Gap 16.4 (5-19) BUN 16 (6-20) mg/dL Creatinine 0.9 (0.5-0.9) mg/dL GFR Calculation 65.0 L (90-130) mL/min Glucose 134 H (65-115) mg/dL Calculated Osmolal ity 276 L (285-295) mOsm/k g Calcium 10.2 (8.5-10.5) mg/dL Total Bilirubin 0.5 (0.15-1.2) mg/dL AST 38 H (0-32) U/L ALT 24 (0-33) U/L Alkaline Phosphata se 139 H (35-105) IU/L Total Protein 7.8 (6.6-8.7) g/dL Albumin 4.9 (3.5-5.2) g/dL Globulin 2.9 (1.3-4.6) g/dL Lipase 51 (13-60) U/L Imaging Data^: US: My impression: No acute abnormality Discharge Plan Discharge Patient Disposition: Home Clinical Impression: Abdominal pain Qualifiers: Abdominal location: right upper quadrant Qualified Code(s): R10.11 - Right upper quadrant pain Condition: Stable Prescriptions: No Action mirtazapine 45 mg tablet 45 mg PO BEDTIME Qty: 30 RF: 5 citalopram [Celexa] 40 mg tablet 40 mg PO DAILY Qty: 30 RF: 5 clozapine 100 mg tablet 300 mg PO .qhs Qty: 90 RF: 5 clozapine 50 mg tablet 50 mg PO BID Qty: 60 RF: 5 meloxicam 7.5 mg tablet 7.5 mg PO BID RF: 0 montelukast [Singulair] 10 mg tablet 10 mg PO DAILY RF: 0 Dexilant 60 mg capsule,biphase delayed releas 60 mg PO DAILY RF: 0 alprazolam [Xanax] 0.5 mg tablet 0.5 mg PO BID Qty: 60 RF: 5 Flonase Allergy Relief nasal spray syringe 2 spray NOSTRIL-B DAILY RF: 0 Ventolin HFA aerosol 2 puff inhalation Q4H PRN (Reason: Shortness Of Breath) RF: 0 cyclobenzaprine 10 mg tablet 10 mg PO TID Qty: 14 RF: 0 docusate sodium 100 mg capsule 100 mg PO BID PRN (Reason: Constipation) RF: 0 oxybutynin chloride 15 mg Tablet Extended Release 24hr 15 mg PO DAILY RF: 0 ondansetron HCl [Zofran] 4 mg tablet 4 mg PO Q6H PRN (Reason: nausea and vomiting) Qty: 10 RF: 0 Discharge Orders: Discharge Order (Routine); Ordered 03/01/20 Ordered By: Kade Smith Referrals: Grecia Kuhn MD [Primary Care Provider] - 1-3 days Discharge Diet: Advance as tolerated Discharge Activity: Resume usual activity Patient Instructions: Abdominal Pain (ED) Discharge Date/Time: 03/01/20 21:42 Coding Level of Care Code 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
[2020-03-01 20:13] LABS: Basophils % 0.1 %; Eosinophils % 0.1 %; Hematocrit 44.3 % (37.0-47.0); Lymphocytes # 2.5 10^3/uL (0.8-4.8); Lymphocytes % 16.8 %; Mean Corpuscular HGB Conc 31.6 g/dL (30.0-36.0); Mean Corpuscular Hemoglobin 28.5 pg (28.0-34.0); Mean Corpuscular Volume 90.2 fL (81-99); Mean Platelet Volume 9.4 fL (7.4-10.4); Monocytes # 1.3 10^3/uL (0.2-0.9); Monocytes % 8.9 %; Neutrophils # 10.93 10^3/uL (1.8-7.7); Neutrophils % 73.5 %; Nucleated Red Blood Cells % 0 %; Platelet Count 339 10^3/cmm (130-400); Red Blood Count 4.91 10^6/uL (4.1-5.3); Red Cell Distribution Width 14.3 % (12.1-15.1); White Blood Count 14.9 10^3/uL (4.0-10.0)
--- NOTE | 2020-03-01 20:25 | USR_ITS ---
PROCEDURE INFORMATION: Exam: US Abdomen, Limited; Right Upper Quadrant Exam date and time: 03/01/2020 9:18 PM Age: 54 years old Clinical indication: Abdominal pain; Acute; Additional info: Abd pain TECHNIQUE: Imaging protocol: US abdomen. Real time ultrasound with image documentation. Limited exam focused on the right upper quadrant. COMPARISON: US gall bladder [id number] 01/21/2015 9:14 AM FINDINGS: Liver: There is increased echogenicity of the hepatic parenchyma compatible with fatty infiltration. The liver is prominent measuring 19 cm craniocaudal dimension. Gallbladder: Normal. No gallstones. There is no gallbladder wall thickening. Common bile duct: Normal. No stones. No dilation. Pancreas: Visualized pancreas is unremarkable. Right kidney: Normal. No mass. No hydronephrosis. US/US gall bladder [id number] IMPRESSION: Hepatomegaly and fatty infiltration of the liver
[2020-03-01 20:33] LABS: Alanine Aminotransferase 24 U/L (0-33); Albumin Level 4.9 g/dL (3.5-5.2); Alkaline Phosphatase 139 IU/L (35-105); Anion Gap 16.4 (5-19); Aspartate Amino Transferase 38 U/L (0-32); Blood Urea Nitrogen 16 mg/dL (6-20); Calcium 10.2 mg/dL (8.5-10.5); Carbon Dioxide 26 mmol/L (22-29); Chloride 96 mmol/L (98-107); Globulin 2.9 g/dL (1.3-4.6); Glucose 134 mg/dL (65-115); Lipase 51 U/L (13-60); Osmolality Calculated 276 mOsm/kg (285-295); Potassium 4.4 mmol/L (3.5-5.1); Sodium 134 mmol/L (136-145); Total Bilirubin 0.5 mg/dL (0.15-1.2); Total Protein 7.8 g/dL (6.6-8.7)
[2020-03-01 21:41] VITALS: BP 110/86; PULSE 105; RESP 14; O2SAT 96
== END 2020-03-01 21:42 | disposition home or self-care (01) ==
PROVIDERS: Emergency Provider Emergency Medicine; PCP Family Medicine
DX: R10.11 Right upper quadrant pain (principal); F17.210 Nicotine dependence, cigarettes, uncomplicated
CPT/HCPCS: 12345; 36415; 76705; 80053; 83690; 85025; 99282; 99283

== ENCOUNTER 2020-03-02 12:58 | Inpatient (IN) | payer MEDICARE, MEDICAID, SELFPAY ==
[2020-03-02 13:00] VITALS: BP 105/84; PULSE 108; RESP 12; TEMP 36.5; O2SAT 94; BMI 31.8
--- NOTE | 2020-03-02 13:39 | PC.NURSE ---
Dr. Brown at bedside at this time
[2020-03-02 14:15] LABS: Basophils % 0.2 %; Eosinophils % 0.1 %; Hematocrit 42.1 % (37.0-47.0); Hemoglobin 13.5 g/dL (11.5-15.3); Lymphocytes # 1.7 10^3/uL (0.8-4.8); Lymphocytes % 13.2 %; Mean Corpuscular HGB Conc 32.1 g/dL (30.0-36.0); Mean Corpuscular Hemoglobin 28.5 pg (28.0-34.0); Mean Platelet Volume 9.4 fL (7.4-10.4); Neutrophils # 10.08 10^3/uL (1.8-7.7); Nucleated Red Blood Cells % 0 %; Platelet Count 294 10^3/cmm (130-400); Red Blood Count 4.73 10^6/uL (4.1-5.3); White Blood Count 12.9 10^3/uL (4.0-10.0)
[2020-03-02 14:23] LABS: HCG Qualitative Urine. Negative (Negative)
[2020-03-02 14:32] LABS: Amphetamines Screen Urine Positive (Negative); Barbiturates Screen Urine Negative (Negative); Benzodiazepines Screen Urine Positive (Negative); Cocaine Screen Urine Negative (Negative); Opiate Screen Urine Negative (Negative); PCP Screen Urine Negative (Negative); THC Screen Urine Negative (Negative)
[2020-03-02 14:34] LABS: Add Urine Microscopic? YES; Bilirubin Urine Neg (NEGATIVE); Blood Urine Neg (Negative); Glucose Urine UA Norm (Normal); Ketones Urine Negative (Negative); Leukocyte Esterase Urine Trace (Negative); Nitrate Urine Negative (Negative); Protein Urine Neg (Negative); Specific Gravity, Urine 1.015 (1.005-1.030); Urine Appearance Clear (CLEAR); Urine Color Yellow (Yellow); Urobilinogen Urine 1 mg/dL (Negative); pH Urine 5 (5-7)
[2020-03-02 14:41] LABS: Bacteria Urine 1+; RBC Urine 0-4 /hpf (0-2)
[2020-03-02 14:42] LABS: Add Urine Culture? No
[2020-03-02 14:42] LABS: Acetaminophen < 5.0 ug/mL (10-30); Alanine Aminotransferase 30 U/L (0-33); Albumin Level 4.6 g/dL (3.5-5.2); Alcohol Level < 10 mg/dL (0-10); Alkaline Phosphatase 129 IU/L (35-105); Anion Gap 16.1 (5-19); Aspartate Amino Transferase 37 U/L (0-32); Blood Urea Nitrogen 18 mg/dL (6-20); Calcium 9.2 mg/dL (8.5-10.5); Carbon Dioxide 25 mmol/L (22-29); Chloride 96 mmol/L (98-107); Globulin 3.4 g/dL (1.3-4.6); Glomerular Filtration Rate 86.9 mL/min (90-130); Glucose 99 mg/dL (65-115); Osmolality Calculated 273 mOsm/kg (285-295); Potassium 4.1 mmol/L (3.5-5.1); Salicylate < 0.3 mg/dL (3-10); Sodium 133 mmol/L (136-145); Total Bilirubin 0.4 mg/dL (0.15-1.2)
--- NOTE | 2020-03-02 15:17 | W.ED.PSYCH ---
HPI - Psych General: Chief Complaint: Psychiatric Symptoms Stated Complaint: EMOTIONAL DISTRESS Time Seen by Provider: 03/02/20 13:06 Source: patient Mode of arrival: ambulatory Limitations: no limitations History of Present Illness: HPI Narrative: 54-year-old female patient with a history of depression and who claims to be taking her antidepressants presents to the emergency department because she says her medications are not working for her. She feels continued worsening depression loss of energy, insomnia, feeling unwell. She is tearful in the emergency department and feels like it is hard to go on with life. She denies homicidal or suicidal ideation. She would like to be admitted to the neuropsychiatric unit so her medications can be adjusted and she be stabilized. complaint: feels depressed Onset (ago): week(s) Duration: constant and getting worse History of same: Yes Relieving factors: none Associated psychiatric symptoms: depression Associated symptoms: Reports depression Treatments prior to arrival: none Review of Systems General: Reports: 10 or more systems reviewed and unremarkable except in HPI and below Const: Denies: fever(s), chills or body aches Eyes: Denies: change in vision or blurry vision ENMT: Denies: throat pain, enlarged tonsils, odynophagia, hoarseness, mouth pain or swelling of lips/tongue Card: Denies: palpitations, irregular heart rhythm, edema or swelling of feet/ankles Resp: Denies: dyspnea, productive cough or non-productive cough GI: Denies: abdominal pain, nausea or vomiting : Denies: flank pain, difficulty voiding, dysuria, urinary frequency, urinary urgency or urinary hesitancy Musc: Denies: neck pain, back pain or extremity swelling Skin/Breast: Denies: rash, pruritus or erythema Neuro: Denies: headache(s), numbness in extremities or weakness in extremities Psych: Reports: anxiety and depression Endo: Denies: polyuria, polydipsia or tired all the time PFS ED PFSH: Medical History (Reviewed 03/02/20 @ 17:49 by Shantel Brown MD, [facility] [place]) Cigarette nicotine dependence Major depressive disorder, single episode, in full remission 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 Other schizophrenia Other stimulant dependence, uncomplicated Family History (Reviewed 03/02/20 @ 17:49 by Shantel Brown MD, [facility] [place]) Denies family history of Diabetes CAD (coronary artery disease) Cancer Hypertension Stroke Social History (Reviewed 03/02/20 @ 17:49 by Shantel Brown MD, [facility] [place]) Smoking and tobacco status: current every day smoker cigarettes [ Other cigarette details: 5 daily ] Quit status (tobacco): considering quitting Second hand smoke exposure: Yes Alcohol intake: former History of recent travel: No Physical Exam Const: COMMON NORMALS: no acute distress, average body habitus, patient oriented x3, no limitations, healthy appearing, alert and well nourished HENMT: COMMON NORMALS: normocephalic, atraumatic and moist oral mucous membranes HEAD & SCALP: normocephalic and atraumatic Neck/C-Spine: COMMON NORMALS: no meningeal signs and no JVD Resp: COMMON NORMALS: normal respiratory effort, No retractions, No use of accessory muscles, clear to auscultation bilaterally and percussion normal AUSCULTATION: clear to auscultation bilaterally PERCUSSION: percussion normal Cardio: COMMON NORMALS: no JVD, regular rate, regular rhythm, S1 normal heart sound present, S2 normal heart sound present, No gallops present (Cardio), No clicks present (Cardio), No murmurs present (Cardio), No rub (Cardio) and Peripheral pulses 2+ throughout RATE: regular rate RHYTHM: regular rhythm HEART SOUNDS: S1 normal heart sound present and S2 normal heart sound present PERIPHERAL PULSES: Peripheral pulses 2+ throughout GI: COMMON NORMALS: Normal to inspection, nondistended, normoactive bowel sounds present, Soft to palpation, non-tender, No hepatosplenomegaly present, no masses and no bruits PALPATION: Yes Soft to palpation and Yes No hepatosplenomegaly present Extremity: COMMON NORMALS: normal to inspection, full ROM, capillary refill normal, no calf tenderness and no pedal edema Neuro: COMMON NORMALS: patient oriented x3 SENSORIUM/ORIENTATION: Yes alert MENINGEAL SIGNS: Yes no meningeal signs Psych: COMMON NORMALS: cooperative and speech normal APPEARANCE: Yes grossly normal SPEECH: Yes normal speech MOOD & AFFECT: Yes depressed mood Skin: COMMON NORMALS: no rashes or lesions noted, no wounds, turgor normal, no jaundice, no petechiae and no mottling GENERAL SKIN EXAM: no rashes or lesions noted and turgor normal MDM - Psych MDM Narrative: Medical decision making narrative: 54-year-old female patient with worsening depression. Drug screen is also positive for amphetamines. Because her depression is uncontrolled on her symptoms worsening she is admitted for further evaluation and management and stabilization. Lab Data: Labs: Lab Results 03/02/20 03/02/20 03/02/20 Range/Units 14:09 14:09 14:12 WBC 12.9 H (4.0-10.0) 10^3/ uL RBC 4.73 (4.1-5.3) 10^6/u L Hgb 13.5 (11.5-15.3) g/dL Hct 42.1 (37.0-47.0) % MCV 89.0 (81-99) fL MCH 28.5 (28.0-34.0) pg MCHC 32.1 (30.0-36.0) g/dL RDW 14.0 (12.1-15.1) % Plt Count 294 (130-400) 10^3/c mm MPV 9.4 (7.4-10.4) fL Neut % (Auto) 78.0 % Lymph % (Auto) 13.2 % Florence % (Auto) 8.0 % Eos % (Auto) 0.1 % Baso % (Auto) 0.2 % Neut # (Auto) 10.08 H (1.8-7.7) 10^3/u L Lymph # (Auto) 1.7 (0.8-4.8) 10^3/u L Florence # (Auto) 1.0 H (0.2-0.9) 10^3/u L Eos # (Auto) 0.0 (0.0-0.8) 10^3/u L Baso # (Auto) 0.0 (0.0-0.1) 10^3/u L Nucleated RBC % (a uto) 0 % Nucleated RBCs # 0.0 /100WBC Sodium 133 L (136-145) mmol/L Potassium 4.1 (3.5-5.1) mmol/L Chloride 96 L (98-107) mmol/L Carbon Dioxide 25 (22-29) mmol/L Anion Gap 16.1 (5-19) BUN 18 (6-20) mg/dL Creatinine 0.7 (0.5-0.9) mg/dL GFR Calculation 86.9 L (90-130) mL/min Glucose 99 (65-115) mg/dL Calculated Osmolal ity 273 L (285-295) mOsm/k g Calcium 9.2 (8.5-10.5) mg/dL Total Bilirubin 0.4 (0.15-1.2) mg/dL AST 37 H (0-32) U/L ALT 30 (0-33) U/L Alkaline Phosphata se 129 H (35-105) IU/L Total Protein 8.0 (6.6-8.7) g/dL Albumin 4.6 (3.5-5.2) g/dL Globulin 3.4 (1.3-4.6) g/dL TSH 1.20 (0.27-4.20) uIU/ mL HCG, Qual Negative (Negative) Urine Color (Yellow) Urine Appearance (CLEAR) Urine pH (5-7) Ur Specific Gravit y (1.005-1.030) Urine Protein (Negative) Urine Glucose (UA) (Normal) Urine Ketones (Negative) Urine Blood (Negative) Urine Nitrate (Negative) Urine Bilirubin (NEGATIVE) Urine Urobilinogen (Negative) mg/dL Ur Leukocyte Zaria ase (Negative) Urine RBC (0-2) /hpf Urine WBC (0-5) /hpf Ur Squamous Epith Cells (0-5) Amorphous Sediment Urine Bacteria (NONE) Hyaline Casts Salicylates < 0.3 L (3-10) mg/dL Urine Opiates Scre en (Negative) ng/mL Acetaminophen < 5.0 L (10-30) ug/mL Ur Barbiturates Sc reen (Negative) ng/mL Ur Phencyclidine S crn (Negative) ng/mL Ur Amphetamines Sc reen (Negative) ng/mL U Benzodiazepines Scrn (Negative) ng/mL Urine Cocaine Scre en (Negative) ng/mL U Marijuana (THC) Screen (Negative) ng/mL Ethyl Alcohol < 10 (0-10) mg/dL 03/02/20 03/02/20 Range/Units 14:12 14:12 WBC (4.0-10.0) 10^3/ uL RBC (4.1-5.3) 10^6/u L Hgb (11.5-15.3) g/dL Hct (37.0-47.0) % MCV (81-99) fL MCH (28.0-34.0) pg MCHC (30.0-36.0) g/dL RDW (12.1-15.1) % Plt Count (130-400) 10^3/c mm MPV (7.4-10.4) fL Neut % (Auto) % Lymph % (Auto) % Florence % (Auto) % Eos % (Auto) % Baso % (Auto) % Neut # (Auto) (1.8-7.7) 10^3/u L Lymph # (Auto) (0.8-4.8) 10^3/u L Florence # (Auto) (0.2-0.9) 10^3/u L Eos # (Auto) (0.0-0.8) 10^3/u L Baso # (Auto) (0.0-0.1) 10^3/u L Nucleated RBC % (a uto) % Nucleated RBCs # /100WBC Sodium (136-145) mmol/L Potassium (3.5-5.1) mmol/L Chloride (98-107) mmol/L Carbon Dioxide (22-29) mmol/L Anion Gap (5-19) BUN (6-20) mg/dL Creatinine (0.5-0.9) mg/dL GFR Calculation (90-130) mL/min Glucose (65-115) mg/dL Calculated Osmolal ity (285-295) mOsm/k g Calcium (8.5-10.5) mg/dL Total Bilirubin (0.15-1.2) mg/dL AST (0-32) U/L ALT (0-33) U/L Alkaline Phosphata se (35-105) IU/L Total Protein (6.6-8.7) g/dL Albumin (3.5-5.2) g/dL Globulin (1.3-4.6) g/dL TSH (0.27-4.20) uIU/ mL HCG, Qual (Negative) Urine Color Yellow (Yellow) Urine Appearance Clear (CLEAR) Urine pH 5 (5-7) Ur Specific Gravit y 1.015 (1.005-1.030) Urine Protein Neg (Negative) Urine Glucose (UA) Norm (Normal) Urine Ketones Negative (Negative) Urine Blood Neg (Negative) Urine Nitrate Negative (Negative) Urine Bilirubin Neg (NEGATIVE) Urine Urobilinogen 1 H (Negative) mg/dL Ur Leukocyte Zaria ase Trace H (Negative) Urine RBC 0-4 H (0-2) /hpf Urine WBC 10-15 H (0-5) /hpf Ur Squamous Epith Cells 10-15 H (0-5) Amorphous Sediment Not Reportable Urine Bacteria 1+ H (NONE) Hyaline Casts 5-10 H Salicylates (3-10) mg/dL Urine Opiates Scre en Negative (Negative) ng/mL Acetaminophen (10-30) ug/mL Ur Barbiturates Sc reen Negative (Negative) ng/mL Ur Phencyclidine S crn Negative (Negative) ng/mL Ur Amphetamines Sc reen Positive H (Negative) ng/mL U Benzodiazepines Scrn Positive H (Negative) ng/mL Urine Cocaine Scre en Negative (Negative) ng/mL U Marijuana (THC) Screen Negative (Negative) ng/mL Ethyl Alcohol (0-10) mg/dL Discharge Plan Discharge Patient Disposition: Admitted As Inpatient Clinical Impression: Depression, Substance abuse Condition: Stable Prescriptions: No Action mirtazapine 45 mg tablet 45 mg PO BEDTIME Qty: 30 RF: 5 citalopram [Celexa] 40 mg tablet 40 mg PO DAILY Qty: 30 RF: 5 clozapine 100 mg tablet 300 mg PO .qhs Qty: 90 RF: 5 clozapine 50 mg tablet 50 mg PO BID Qty: 60 RF: 5 meloxicam 7.5 mg tablet 7.5 mg PO BID RF: 0 montelukast [Singulair] 10 mg tablet 10 mg PO DAILY RF: 0 Dexilant 60 mg capsule,biphase delayed releas 60 mg PO DAILY RF: 0 alprazolam [Xanax] 0.5 mg tablet 0.5 mg PO BID Qty: 60 RF: 5 Flonase Allergy Relief nasal spray syringe 2 spray NOSTRIL-B DAILY RF: 0 Ventolin HFA aerosol 2 puff inhalation Q4H PRN (Reason: Shortness Of Breath) RF: 0 docusate sodium 100 mg capsule 100 mg PO BID PRN (Reason: Constipation) RF: 0 oxybutynin chloride 15 mg Tablet Extended Release 24hr 15 mg PO DAILY RF: 0 ondansetron HCl [Zofran] 4 mg tablet 4 mg PO Q6H PRN (Reason: nausea and vomiting) Qty: 10 RF: 0 Referrals: Grecia Kuhn MD [Primary Care Provider] - Coding Level of Care Code 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
[2020-03-02 15:24] VITALS: BP 131/82; PULSE 100; O2SAT 97
[2020-03-02] MEDS: acetaminophen 500 mg Tablet PO (15:54)
[2020-03-02 17:55] VITALS: BP 108/78; PULSE 75; RESP 16; O2SAT 96
[2020-03-02 18:18] VITALS: BP 111/79; PULSE 98; RESP 18; TEMP 36.7; O2SAT 96
[2020-03-02] MEDS: hyDROXYzine 25 mg Capsule 50 MG PO (20:38)
[2020-03-02] MEDS: trazodone 50 mg Tablet PO (20:39)
--- NOTE | 2020-03-02 21:13 | PC.NURSE ---
pt requested meds for sleep and anxiety, prn vistaril and trazodone given.
[2020-03-02 22:00] VITALS: BP 92/55; PULSE 84; RESP 16; TEMP 36.6; O2SAT 96
[2020-03-02 23:50] VITALS: PULSE 88; RESP 18; O2SAT 95
[2020-03-03 06:00] VITALS: BP 104/76; PULSE 85; RESP 16; TEMP 36.6; O2SAT 93
[2020-03-03] MEDS: fluticasone nasal spray 16gm Btl 2 SPRAY INTRANASAL (08:16)
[2020-03-03] MEDS: ALPRAZolam 0.5 mg Tablet PO (08:17)
[2020-03-03] MEDS: citalopram 20 mg Tablet 40 MG PO (08:17)
[2020-03-03] MEDS: pantoprazole DR 40 mg Tablet PO (08:17)
[2020-03-03] MEDS: meloxicam 7.5 mg tablet PO ×2 (08:18→16:55)
[2020-03-03] MEDS: oxybutynin chloride XL 5 MG TABLET 15 MG PO (08:18)
[2020-03-03] MEDS: cloZAPine 25 mg Tablet 50 MG PO ×2 (08:18→16:55)
[2020-03-03] MEDS: montelukast sodium 10 mg Tablet PO (08:18)
[2020-03-03] MEDS: albuterol 8 gm MDI 2 PUFF INHALATION ×2 (09:17→21:40)
[2020-03-03 09:20] VITALS: PULSE 75; RESP 18; O2SAT 95
[2020-03-03] MEDS: sulfamethoxazole-trimeth DS 160-800 mg Tablet 1 TAB PO ×2 (11:14→20:47)
--- NOTE | 2020-03-03 11:37 | PM.NHP ---
Providers/Chief Complaint Admitting Physician: Timothy Aguirre Primary Care Provider: Grecia Kuhn MD Chief Complaint: EMOTIONAL DISTRESS HPI NPU History of Present Illness Hilda Nolan is a 54-year-old female patient with a history of depression and who claims to be taking her antidepressants presents to the emergency department because she says her medications are not working for her. She feels continued worsening depression loss of energy, insomnia, feeling unwell. She is tearful in the emergency department and feels like it is hard to go on with life. She denies homicidal or suicidal ideation. She would like to be admitted to the neuropsychiatric unit so her medications can be adjusted and she be stabilized. She also complains of low back pain. She turns out to be exquisitely tender on the left flank, less so on the right. In the ER doctor reported that her urines had not changed. However, my review of her urine did show an explosive array of indices of a higher renal infection, including hyaline casts. This was not referred to. Review of Systems Narrative: General: Reports: 10 or more systems reviewed and unremarkable except in HPI and below Const: Denies: fever(s), chills but reports multiple body aches Eyes: Denies: change in vision or blurry vision ENMT: Denies: throat pain, enlarged tonsils, odynophagia, hoarseness, mouth pain or swelling of lips/tongue Card: Denies: palpitations, irregular heart rhythm, edema or swelling of feet/ankles Resp: Denies: dyspnea, productive cough or non-productive cough GI: Denies: abdominal pain, nausea or vomiting : Reports: flank pain. Denies pain or burning on urination. Musc: Denies: neck pain, back pain or extremity swelling Skin/Breast: Denies: rash, pruritus or erythema Neuro: Reports: complains bitterly of headache(s), tingling in extremities. Psych: Reports: anxiety and depression Endo: Denies: polyuria, polydipsia or tired all the time Meds NPU Home Medications Medication Instructions Recorded Confirmed Last Taken Type dexlansoprazole 60 mg 60 mg PO DAILY 08/28/19 03/02/20 03/02/20 History capsule,biphase delayed release meloxicam 7.5 mg tablet 7.5 mg PO BID tab 08/28/19 03/02/20 02/29/20 History montelukast 10 mg tablet 10 mg PO DAILY 08/28/19 03/02/20 03/02/20 History Flonase Allergy Relief 2 spray NOSTRIL-B DAILY 09/23/19 03/02/20 02/29/20 History Ventolin HFA 2 puff INHALATION Q4H PRN 09/23/19 03/02/20 02/29/20 History docusate sodium 100 mg PO BID PRN 10/18/19 03/02/20 03/02/20 History oxybutynin chloride 15 mg PO DAILY 11/06/19 03/02/20 02/29/20 History alprazolam 0.5 mg tablet 0.5 mg PO BID #60 tab 12/26/19 03/02/20 03/02/20 Rx citalopram 40 mg tablet 40 mg PO DAILY #30 tab 01/22/20 03/02/20 03/02/20 Rx clozapine 100 mg tablet 300 mg PO .qhs #90 tab 01/22/20 03/02/20 03/01/20 Rx clozapine 50 mg tablet 50 mg PO BID #60 tab 01/22/20 03/02/20 03/02/20 Rx mirtazapine 45 mg tablet 45 mg PO BEDTIME #30 tab 01/22/20 03/02/20 03/01/20 Rx ondansetron HCl [Zofran] 4 mg PO Q6H PRN #10 tab 03/01/20 03/02/20 Unknown Rx Allergies Allergy/AdvReac Type Severity Reaction Status Date / Time ibuprofen Allergy Mild ALGY-Rash Verified 03/02/20 13:52 PFSH NPU PFSH: Medical History Cigarette nicotine dependence Major depressive disorder, single episode, in full remission 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 She thinks it is not working anymore but is willing to consider an SSRI. Mental Status Exam MSE Comments: This is a 54-year-old female who presents at her stated age. Mood is clearly depressed and she is definitely not in full remission as reported in the emergency room. It is true that she denies suicidal or homicidal ideation plan or intent, however affect is flat and other indices of a depressive episode are evident. Thought processes are focused on chronic pain but are otherwise free of disorganization, racing or blocking. There is no evidence of psychosis, such as but not limited to hallucinations, delusions or ideas of reference. Vitals/I&O/Wt Last Vital Signs Temp 97.8 F 03/03/20 06:00 Pulse 75 03/03/20 09:20 Resp 18 03/03/20 09:20 BP 104/76 03/03/20 06:00 Pulse Ox 95 03/03/20 09:20 Weight last 48 hrs Weight 174 lb Physical Exam Narrative: EXAM NARRATIVE: This is an obese, white female, with adequate dress, grooming, and eye contact. No abnormal movements. Cooperative with exam in no acute distress. Speech was more normal rate and volume. Mood described as alright; affect congruent. Thought process, organized. Thought content: patient denied any suicidal or homicidal ideation, there were no delusions reported or noted, patient denied any auditory or visual hallucinations. Attention, concentration, and memory appeared intact but none were formally tested. She is alert and oriented times three. Insight and judgment are limited. Impulse control is limited. Data NPU : 03/02/20 14:09 03/02/20 14:09 A&P Assessment and plan (1) Depression: Review of pharmacotherapy. Close monitoring by our training staff and involvement in [facility]. I have also undertaken to treat her fulminant renal infection, not reported by my predecessors. I have asked for a neurology consultation from Dr. Dominguez's office. I am awaiting a return call to discuss the case with her. Status: Acute Qualifiers: Active/Remission status: currently active Depression Type: major depressive disorder Major depression episode severity: severe Major depression recurrence: recurrent Psychotic features: without psychotic features Qualified Code(s): F33.2 - Major depressive disorder, recurrent severe without psychotic features Involuntary Hold Information 96 Hour Hold: 96 Hour Involuntary Admission: No Attestations NPU Medical Necessity Statement*: I anticipate 5-7 midnights. Time Spent in Patient Care: Greater than 35 minutes (>than 50% of time spent in counselling and/or direct pt care on unit). 90 minutes Coding Level of Care Code Acute Social Work Administrator for [facility] Diagnoses Depression F33.2 Active/Remission status: currently active Depression Type: major depressive disorder Major depression episode severity: severe Major depression recurrence: recurrent Psychotic features: without psychotic features
[2020-03-03 14:00] VITALS: BP 115/81; PULSE 99; RESP 20; TEMP 36.6; O2SAT 95
--- NOTE | 2020-03-03 15:08 | PC.SOCIAL ---
patient complained about sleeping all the time, not feeling well and her head hurting. she is also losing track of time. Outpatient case mgmt and individual therapy was offered but she declined. She has had those services in the past. She said that she just wants to feel better and she will be able to do more. she does not think her medications are working.
[2020-03-03] MEDS: acetaminophen 325 mg Tablet 650 MG PO (15:29)
[2020-03-03] MEDS: mirtazapine 15 mg Tablet 45 MG PO (20:46)
[2020-03-03] MEDS: cloZAPine 100 mg Tablet 300 MG PO (20:46)
[2020-03-03] MEDS: hyDROXYzine 25 mg Capsule 50 MG PO (20:47)
[2020-03-03] MEDS: trazodone 50 mg Tablet PO (20:47)
[2020-03-03 21:02] VITALS: BP 96/66; PULSE 77; RESP 20; TEMP 36.6; O2SAT 97
[2020-03-03 21:40] VITALS: PULSE 93; RESP 18; O2SAT 98
[2020-03-03 21:46] VITALS: PULSE 91
[2020-03-04 06:00] VITALS: BP 112/75; PULSE 89; RESP 18; TEMP 36.6; O2SAT 96
[2020-03-04] MEDS: albuterol 8 gm MDI 2 PUFF INHALATION ×2 (08:18→21:15)
[2020-03-04 08:22] VITALS: PULSE 103; RESP 18; O2SAT 96
[2020-03-04] MEDS: fluticasone nasal spray 16gm Btl 2 SPRAY INTRANASAL (08:46)
[2020-03-04] MEDS: sulfamethoxazole-trimeth DS 160-800 mg Tablet 1 TAB PO ×2 (08:47→20:44)
[2020-03-04] MEDS: meloxicam 7.5 mg tablet PO ×2 (08:47→17:17)
[2020-03-04] MEDS: cloZAPine 25 mg Tablet 50 MG PO ×2 (08:47→17:17)
[2020-03-04] MEDS: pantoprazole DR 40 mg Tablet PO (08:47)
[2020-03-04] MEDS: montelukast sodium 10 mg Tablet PO (08:47)
[2020-03-04] MEDS: citalopram 20 mg Tablet PO (08:48)
[2020-03-04] MEDS: oxybutynin chloride XL 5 MG TABLET 15 MG PO (08:48)
--- NOTE | 2020-03-04 12:50 | PM.NPN ---
Subjective NPU Subjective: Interval history: Hilda presented today reporting that she wanted to leave. She did that multiple times. At the heart of it is that she is struggling with Dr. Aguirre?s changes to her being off of Xanax. Multiple times she made a move to leave against medical advise, but this flex o writer operator had some mateo discussions with her about her current pattern of utilization of the hospital, which specifically includes her coming and often leaving on the same or next day, without effective interventions. We discussed the risks, benefits, and alternatives of initiating some other medication for her anxiety and ultimately she was willing to have a small dose of Ativan one time, and proceed with Seroquel, as a small dose, a couple of times during the day. We discussed the risks, benefits, and alternatives of these changes, and she understood and agreed to proceed as is documented in this note. And she agreed to stay and not leave against medical advise. Mental Status Exam MSE Comments: This is an obese, older, white female, with adequate dress and limited grooming and eye contact. No abnormal movements, except for psychomotor retardation. Semi-cooperative with exam in mild to moderate distress. Speech was decreased rate and volume. Mood described as anxious; affect congruent. Thought process, organized. Thought content: patient denied any suicidal or homicidal ideation, there were no delusions reported or noted, patient denied any auditory or visual hallucinations. Attention, concentration, and memory appear intact but none were formally tested. She is alert and oriented times three. Insight and judgment are limited. Impulse control is limited. Vitals/I&O/Wt Last Vital Signs Temp 98.1 F 03/04/20 21:49 Pulse 84 03/04/20 21:49 Resp 20 H 03/04/20 21:49 BP 101/65 03/04/20 21:49 Pulse Ox 95 03/04/20 21:49 Data NPU : 03/02/20 14:09 03/02/20 14:09 A&P Assessment and plan (1) Acute anxiety: Status: Acute (2) Depression: Status: Acute Qualifiers: Active/Remission status: currently active Depression Type: major depressive disorder Major depression episode severity: severe Major depression recurrence: recurrent Psychotic features: without psychotic features Qualified Code(s): F33.2 - Major depressive disorder, recurrent severe without psychotic features (3) Cigarette nicotine dependence: Status: Acute (4) Other schizophrenia: Status: Acute Additional A&P Information This is a 54 year old, white female, with schizoaffective disorder, who presents being fairly ambivalent about being at the hospital as she presented struggling with the discontinuation of her benzodiazepines, this is her sixth time that she had been to the hospital since January 24 and she had been discharged, by this flex o writer operator, on January 23, the seventh time in that period of time, two of those ended up with admissions and that last admission was a less than 24 hour stay. Continue current medication, except: Initiate Seroquel 25 mg po bid. Encourage individual, group, and milieu therapy. Continue q-15 minute checks for safety. Recommend sober living treatment at the highest level of care to which she is willing to commit. Involuntary Hold Information 96 Hour Hold: 96 Hour Involuntary Admission: No Attestations NPU Medical Necessity Statement*: Inpatient hospitalization is medically necessary and the clinically appropriate intervention at this time. We will monitor medications and make adjustments as indicated. Likely length of stay is two to four days. 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
[2020-03-04 14:00] VITALS: BP 149/102; PULSE 83; RESP 20; TEMP 36.7; O2SAT 98
[2020-03-04] MEDS: LORazepam 0.5 mg Tablet PO (16:29)
[2020-03-04] MEDS: quetiapine 25 mg Tablet PO (17:17)
[2020-03-04] MEDS: cloZAPine 100 mg Tablet 300 MG PO (20:45)
[2020-03-04] MEDS: mirtazapine 15 mg Tablet 45 MG PO (20:45)
[2020-03-04] MEDS: acetaminophen 325 mg Tablet 650 MG PO (20:46)
[2020-03-04] MEDS: hyDROXYzine 25 mg Capsule 50 MG PO (20:46)
[2020-03-04 21:15] VITALS: PULSE 93; RESP 18; O2SAT 96
[2020-03-04 21:19] VITALS: PULSE 90
[2020-03-04 21:49] VITALS: BP 101/65; PULSE 84; RESP 20; TEMP 36.7; O2SAT 95
[2020-03-05 06:00] VITALS: BP 121/80; PULSE 76; RESP 17; TEMP 36.8; O2SAT 97
[2020-03-05] MEDS: cloZAPine 25 mg Tablet 50 MG PO ×2 (09:17→17:12)
[2020-03-05] MEDS: meloxicam 7.5 mg tablet PO ×2 (09:17→17:12)
[2020-03-05] MEDS: sulfamethoxazole-trimeth DS 160-800 mg Tablet 1 TAB PO ×2 (09:17→20:51)
[2020-03-05] MEDS: citalopram 20 mg Tablet PO (09:17)
[2020-03-05] MEDS: quetiapine 25 mg Tablet PO ×2 (09:17→17:12)
[2020-03-05] MEDS: montelukast sodium 10 mg Tablet PO (09:17)
[2020-03-05] MEDS: fluticasone nasal spray 16gm Btl 2 SPRAY INTRANASAL (09:17)
[2020-03-05] MEDS: oxybutynin chloride XL 5 MG TABLET 15 MG PO (09:17)
[2020-03-05] MEDS: pantoprazole DR 40 mg Tablet PO (09:17)
[2020-03-05] MEDS: albuterol 8 gm MDI 2 PUFF INHALATION (10:40)
[2020-03-05 10:47] VITALS: PULSE 91; RESP 18; O2SAT 97
--- NOTE | 2020-03-05 11:20 | PC.RESP ---
Smoking Cessation information sent to patient.
[2020-03-05 14:00] VITALS: BP 107/76; PULSE 98; RESP 18; TEMP 36.7; O2SAT 96
--- NOTE | 2020-03-05 14:46 | P.PN_ITS ---
Subjective NPU Subjective: Interval history: Hilda presented today trying to get this literary writer to put her back on the benzodiazepines that she was on before or a different one. I explained to her that the changes Dr. Aguirre made were reasonable and that we should follow this through to its conclusion. We discussed the risks benefits and alternatives of increasing her Seroquel and she understood and agreed to proceed as is documented in his note. She initially was speaking about discharge and was even continuing to talk about discharge in the morning. Mental Status Exam MSE Comments: This is an obese, older, white female, with adequate dress and limited grooming and eye contact. No abnormal movements, except for psychomotor retardation. Semi-cooperative with exam in mild to moderate distress. Speech was decreased rate and volume. Mood described as anxious; affect congruent. Thought process, organized. Thought content: patient denied any suicidal or homicidal ideation, there were no delusions reported or noted, patient denied any auditory or visual hallucinations. Attention, concentration, and memory appear intact but none were formally tested. She is alert and oriented times three. Insight and judgment are limited. Impulse control is limited. Vitals/I&O/Wt Last Vital Signs Temp 97.7 F 03/05/20 20:05 Pulse 80 03/05/20 20:05 Resp 16 03/05/20 20:05 BP 109/74 03/05/20 20:05 Pulse Ox 95 03/05/20 20:05 Data NPU : 03/02/20 14:09 03/02/20 14:09 A&P Additional A&P Information (1) Acute anxiety: (2) Depression: (3) Cigarette nicotine dependence: (4) Other schizophrenia: This is a 54 year old, white female, with schizoaffective disorder, who presents being fairly ambivalent about being at the hospital as she presented struggling with the discontinuation of her benzodiazepines, this is her sixth time that she had been to the hospital since January 24 and she had been discharged, by this literary writer, on January 23, the seventh time in that period of time, two of those ended up with admissions and that last admission was a less than 24 hour stay. Continue current medication, except: Initiate Seroquel 50 mg po tid. Encourage individual, group, and milieu therapy. Continue q-15 minute checks for safety. Recommend sober living treatment at the highest level of care to which she is willing to commit. Involuntary Hold Information 96 Hour Hold: 96 Hour Involuntary Admission: No Attestations NPU Medical Necessity Statement*: Inpatient hospitalization is medically necessary and the clinically appropriate intervention at this time. We will monitor medications and make adjustments as indicated. Likely length of stay is 1-3 days. 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
[2020-03-05] MEDS: hyDROXYzine 25 mg Capsule 50 MG PO (18:20)
[2020-03-05 20:05] VITALS: BP 109/74; PULSE 80; RESP 16; TEMP 36.5; O2SAT 95
[2020-03-05] MEDS: cloZAPine 100 mg Tablet 300 MG PO (20:50)
[2020-03-05] MEDS: mirtazapine 15 mg Tablet 45 MG PO (20:50)
[2020-03-05] MEDS: acetaminophen 325 mg Tablet 650 MG PO (20:51)
[2020-03-06 06:00] VITALS: BP 116/65; PULSE 87; RESP 16; TEMP 36.8; O2SAT 96
--- NOTE | 2020-03-06 07:57 | PM.NPN ---
Subjective NPU Subjective: Interval history: Hilda presented today more open to discharge after stabilization on the medication. However she is requesting that she be returned to the medication she was on before Dr. Aguirre made changes. I explained to her that with her frequent visits to the hospital discharging her unchanged on her previous medications doesn't make a lot of sense. We agreed that we will stabilize her medication she is on now and that if she wants to get benzodiazepines returned to her regimen she will have to discussed that with her outpatient provider. She was happy that this journalists and other writers wasn't talking about holding her any longer than likely Sunday but was frustrated about not getting her Xanax restarted. Mental Status Exam MSE Comments: This is an obese, older, white female, with adequate dress and limited grooming and eye contact. No abnormal movements, except for psychomotor retardation. Semi-cooperative with exam in mild distress. Speech was decreased rate and volume. Mood described as anxious; affect subdued. Thought process, organized. Thought content: patient denied any suicidal or homicidal ideation, there were no delusions reported or noted, patient denied any auditory or visual hallucinations. Attention, concentration, and memory appear intact but none were formally tested. She is alert and oriented times three. Insight and judgment are limited. Impulse control is limited. Vitals/I&O/Wt Last Vital Signs Temp 98.2 F 03/06/20 06:00 Pulse 87 03/06/20 06:00 Resp 16 03/06/20 06:00 BP 116/65 03/06/20 06:00 Pulse Ox 96 03/06/20 06:00 Data NPU : 03/02/20 14:09 03/02/20 14:09 A&P Additional A&P Information (1) Acute anxiety: (2) Depression: (3) Cigarette nicotine dependence: (4) Other schizophrenia: This is a 54 year old, white female, with schizoaffective disorder, who presents being fairly ambivalent about being at the hospital as she presented struggling with the discontinuation of her benzodiazepines, this is her sixth time that she had been to the hospital since January 24 and she had been discharged, by this journalists and other writers, on January 23, the seventh time in that period of time, two of those ended up with admissions and that last admission was a less than 24 hour stay. Continue current medication. Encourage individual, group, and milieu therapy. Continue q-15 minute checks for safety. Recommend sober living treatment at the highest level of care to which she is willing to commit. Involuntary Hold Information 96 Hour Hold: 96 Hour Involuntary Admission: No Attestations NPU Medical Necessity Statement*: Inpatient hospitalization is medically necessary and the clinically appropriate intervention at this time. We will monitor medications and make adjustments as indicated. Likely length of stay is 1-2 days. 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
[2020-03-06] MEDS: oxybutynin chloride XL 5 MG TABLET 15 MG PO (08:51)
[2020-03-06] MEDS: pantoprazole DR 40 mg Tablet PO (08:52)
[2020-03-06] MEDS: sulfamethoxazole-trimeth DS 160-800 mg Tablet 1 TAB PO ×2 (08:52→20:52)
[2020-03-06] MEDS: cloZAPine 25 mg Tablet 50 MG PO ×2 (08:52→17:43)
[2020-03-06] MEDS: quetiapine 25 mg Tablet PO (08:52)
[2020-03-06] MEDS: citalopram 20 mg Tablet PO (08:52)
[2020-03-06] MEDS: meloxicam 7.5 mg tablet PO ×2 (08:52→17:43)
[2020-03-06] MEDS: acetaminophen 325 mg Tablet 650 MG PO ×2 (08:53→21:05)
[2020-03-06] MEDS: montelukast sodium 10 mg Tablet PO (08:53)
[2020-03-06 09:01] VITALS: PULSE 70; RESP 16; O2SAT 98
--- NOTE | 2020-03-06 09:04 | PC.NURSE ---
PT NOTE; CLIENT RWEPORTS THAT SHE WOULD LIKE TO BE PUT BACK ON THE MEDICATIONS SHE HAD BEEN TAKING UNDER THE CARE OF DR. SHARP HER PROVIDER AT [facility]. CLIENT REPORTS THAT SHE FEELS THOSE MEDICATIONS WERE WORKING FOR HER. CLIENT ALSO DISCUSSED THAT SHE WOULD ALSO LIKE TO START GOING TO [facility] AGAIN.
[2020-03-06] MEDS: fluticasone nasal spray 16gm Btl 2 SPRAY INTRANASAL (13:44)
[2020-03-06] MEDS: OLANZapine 5 mg ODT PO (13:45)
[2020-03-06 13:51] VITALS: BP 134/84; PULSE 92; RESP 18; TEMP 36.3
[2020-03-06] MEDS: quetiapine 25 mg Tablet 50 MG PO ×2 (15:02→20:51)
[2020-03-06] MEDS: cyclobenzaprine 10 mg Tablet 5 MG PO (17:43)
[2020-03-06 19:38] VITALS: PULSE 73; RESP 18; O2SAT 96
[2020-03-06] MEDS: albuterol 8 gm MDI 2 PUFF INHALATION (19:39)
[2020-03-06 20:12] VITALS: BP 105/71; PULSE 90; RESP 16; TEMP 36.4; O2SAT 96
[2020-03-06] MEDS: cloZAPine 100 mg Tablet 300 MG PO (20:51)
[2020-03-06] MEDS: mirtazapine 15 mg Tablet 45 MG PO (20:51)
[2020-03-07 06:00] VITALS: BP 121/83; PULSE 78; RESP 17; TEMP 36.9; O2SAT 98
--- NOTE | 2020-03-07 08:00 | PC.NURSE ---
REFUSED SCHEDULED FLONASE NASAL SPRAY THIS MORNING
[2020-03-07] MEDS: montelukast sodium 10 mg Tablet PO (08:16)
[2020-03-07] MEDS: sulfamethoxazole-trimeth DS 160-800 mg Tablet 1 TAB PO ×2 (08:16→20:40)
[2020-03-07] MEDS: meloxicam 7.5 mg tablet PO ×2 (08:17→17:42)
[2020-03-07] MEDS: citalopram 20 mg Tablet PO (08:17)
[2020-03-07] MEDS: pantoprazole DR 40 mg Tablet PO (08:17)
[2020-03-07] MEDS: quetiapine 25 mg Tablet 50 MG PO ×3 (08:17→20:41)
[2020-03-07] MEDS: cloZAPine 25 mg Tablet 50 MG PO ×2 (08:17→17:43)
[2020-03-07] MEDS: oxybutynin chloride XL 5 MG TABLET 15 MG PO (08:18)
[2020-03-07 09:24] VITALS: PULSE 79; RESP 16; O2SAT 97
[2020-03-07] MEDS: docusate sodium 100 mg Capsule PO (10:46)
--- NOTE | 2020-03-07 10:48 | PC.NURSE ---
Addendum entered by Genoveva Lambert LPN 03/07/20 15:58: ERROR TO PREVIOUS NOTE, PRN COLACE GIVEN PER PT C/O STATED CONSTIPATION, NOT ANXIETY....NO FURTHER C/O CONSTIPATION CURRENTLY Original Note: PRN COLACE 100 MG GIVEN PO PER PT C/O STATED ANXIETY
--- NOTE | 2020-03-07 11:40 | PM.NPN ---
Subjective NPU Subjective: Interval history: Hilda presents today continuing to allow the floor resumption of her old medication, however she is cognizant of the unlikelihood that occurring so she like yesterday asked for something for other concerns. She endorses cramping and leg pain that has been treated in the past but Flexeril and Neurontin. We discussed the fact that we did not want to continue Flexeril and after review of her records we discussed the risks benefits and alternatives of a once daily dose of Neurontin she understood and agreed to proceed as is documented in this note. She endorsed being prepared for discharge tomorrow. Mental Status Exam MSE Comments: This is an obese, older, white female, with adequate dress and limited grooming and eye contact. No abnormal movements, except for psychomotor retardation. Cooperative with exam in no acute distress. Speech was decreased rate and volume. Mood described as okay but anxious; affect calm. Thought process, organized. Thought content: patient denied any suicidal or homicidal ideation, there were no delusions reported or noted, patient denied any auditory or visual hallucinations. Attention, concentration, and memory appear intact but none were formally tested. She is alert and oriented times three. Insight and judgment are improving. Impulse control is improving. Vitals/I&O/Wt Last Vital Signs Temp 98.5 F 03/07/20 06:00 Pulse 79 03/07/20 09:24 Resp 16 03/07/20 09:24 BP 121/83 03/07/20 06:00 Pulse Ox 97 03/07/20 09:24 Weight last 48 hrs Weight 82.27 kg Data NPU : 03/02/20 14:09 03/02/20 14:09 A&P Additional A&P Information (1) Acute anxiety: (2) Depression: (3) Cigarette nicotine dependence: (4) Other schizophrenia: This is a 54 year old, white female, with schizoaffective disorder, who presents being fairly ambivalent about being at the hospital as she presented struggling with the discontinuation of her benzodiazepines, this is her sixth time that she had been to the hospital since January 24 and she had been discharged, by this bid writer, on January 23, the seventh time in that period of time, two of those ended up with admissions and that last admission was a less than 24 hour stay. Continue current medication. Encourage individual, group, and milieu therapy. Continue q-15 minute checks for safety. Recommend sober living treatment at the highest level of care to which she is willing to commit. Involuntary Hold Information 96 Hour Hold: 96 Hour Involuntary Admission: No Attestations NPU Medical Necessity Statement*: Inpatient hospitalization is medically necessary and the clinically appropriate intervention at this time. We will monitor medications and make adjustments as indicated. Plan for discharge tomorrow.. 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
[2020-03-07 14:00] VITALS: BP 101/70; PULSE 102; RESP 18; TEMP 36.4
[2020-03-07] MEDS: gabapentin 100 mg Capsule PO (17:42)
[2020-03-07] MEDS: albuterol 8 gm MDI 2 PUFF INHALATION (19:41)
[2020-03-07 19:42] VITALS: PULSE 95; RESP 16; O2SAT 94
[2020-03-07 20:40] VITALS: BP 93/68; PULSE 90; RESP 20; TEMP 36.8; O2SAT 96
[2020-03-07] MEDS: cloZAPine 100 mg Tablet 300 MG PO (20:40)
[2020-03-07] MEDS: mirtazapine 15 mg Tablet 45 MG PO (20:40)
[2020-03-07] MEDS: hyDROXYzine 25 mg Capsule 50 MG PO (20:41)
[2020-03-08 06:00] VITALS: BP 112/73; PULSE 85; RESP 18; TEMP 36.8; O2SAT 96
[2020-03-08] MEDS: albuterol 8 gm MDI 2 PUFF INHALATION (07:54)
[2020-03-08 07:58] VITALS: PULSE 101; RESP 18; O2SAT 98
[2020-03-08] MEDS: fluticasone nasal spray 16gm Btl 2 SPRAY INTRANASAL (08:31)
[2020-03-08] MEDS: cloZAPine 25 mg Tablet 50 MG PO (08:32)
[2020-03-08] MEDS: citalopram 20 mg Tablet PO (08:32)
[2020-03-08] MEDS: meloxicam 7.5 mg tablet PO (08:32)
[2020-03-08] MEDS: oxybutynin chloride XL 5 MG TABLET 15 MG PO (08:32)
[2020-03-08] MEDS: gabapentin 100 mg Capsule PO (08:32)
[2020-03-08] MEDS: quetiapine 25 mg Tablet 50 MG PO (08:32)
[2020-03-08] MEDS: montelukast sodium 10 mg Tablet PO (08:32)
[2020-03-08] MEDS: pantoprazole DR 40 mg Tablet PO (08:32)
[2020-03-08 10:30] VITALS: PULSE 101; RESP 18; O2SAT 98
--- NOTE | 2020-03-08 10:53 | PC.SOCIAL ---
Important message for medicare was done on March 03, 2020 at 1450 and she was given a copy at that time. It is updated today March 08, 2020.
--- NOTE | 2020-03-08 11:00 | PC.NURSE ---
discharge reviewed follow up appointments, new meds with possible side effects, and discontinued meds with patient. Patient verbalized understanding. Meds will be brought to patient from [facility] pharmacy.
--- NOTE | 2020-03-08 12:45 | P.DS_ITS ---
Diagnoses at Discharge Discharge Diagnosis (1) Acute anxiety: Status: Acute (2) Depression: Status: Acute Qualifiers: Active/Remission status: currently active Depression Type: major depressive disorder Major depression episode severity: severe Major depression recurrence: recurrent Psychotic features: without psychotic features Qualified Code(s): F33.2 - Major depressive disorder, recurrent severe without psychotic features (3) Cigarette nicotine dependence: Status: Acute (4) Other schizophrenia: Status: Acute Reason for Visit Reason for Visit: EMOTIONAL DISTRESS Brief History: History of Present Illness Hilda oNlan is a 54-year-old female patient with a history of depression and who claims to be taking her antidepressants presents to the emergency department because she says her medications are not working for her. She feels continued worsening depression loss of energy, insomnia, feeling unwell. She is tearful in the emergency department and feels like it is hard to go on with life. She denies homicidal or suicidal ideation. She would like to be admitted to the neuropsychiatric unit so her medications can be adjusted and she be stabilized. She also complains of low back pain. She turns out to be exquisitely tender on the left flank, less so on the right. In the ER doctor reported that her urines had not changed. However, my review of her urine did show an explosive array of indices of a higher renal infection, including hyaline casts. This was not referred to. Review of Systems Narrative: General: Reports: 10 or more systems reviewed and unremarkable except in HPI and below Const: Denies: fever(s), chills but reports multiple body aches Eyes: Denies: change in vision or blurry vision ENMT: Denies: throat pain, enlarged tonsils, odynophagia, hoarseness, mouth pain or swelling of lips/tongue Card: Denies: palpitations, irregular heart rhythm, edema or swelling of feet/ankles Resp: Denies: dyspnea, productive cough or non-productive cough GI: Denies: abdominal pain, nausea or vomiting : Reports: flank pain. Denies pain or burning on urination. Musc: Denies: neck pain, back pain or extremity swelling Skin/Breast: Denies: rash, pruritus or erythema Neuro: Reports: complains bitterly of headache(s), tingling in extremities. Psych: Reports: anxiety and depression Endo: Denies: polyuria, polydipsia or tired all the time Meds NPU Home Medications Medication Instructions Recorded Confirmed Last Taken Type dexlansoprazole 60 mg 60 mg PO DAILY 08/28/19 03/02/20 03/02/20 History capsule,biphase delayed release meloxicam 7.5 mg tablet 7.5 mg PO BID tab 08/28/19 03/02/20 02/29/20 History montelukast 10 mg tablet 10 mg PO DAILY 08/28/19 03/02/20 03/02/20 History Flonase Allergy Relief 2 spray NOSTRIL-B DAILY 09/23/19 03/02/20 02/29/20 History Ventolin HFA 2 puff INHALATION Q4H PRN 09/23/19 03/02/20 02/29/20 History docusate sodium 100 mg PO BID PRN 10/18/19 03/02/20 03/02/20 History oxybutynin chloride 15 mg PO DAILY 11/06/19 03/02/20 02/29/20 History alprazolam 0.5 mg tablet 0.5 mg PO BID #60 tab 12/26/19 03/02/20 03/02/20 Rx citalopram 40 mg tablet 40 mg PO DAILY #30 tab 01/22/20 03/02/20 03/02/20 Rx clozapine 100 mg tablet 300 mg PO .qhs #90 tab 01/22/20 03/02/20 03/01/20 Rx clozapine 50 mg tablet 50 mg PO BID #60 tab 01/22/20 03/02/20 03/02/20 Rx mirtazapine 45 mg tablet 45 mg PO BEDTIME #30 tab 01/22/20 03/02/20 03/01/20 Rx ondansetron HCl [Zofran] 4 mg PO Q6H PRN #10 tab 03/01/20 03/02/20 Unknown Rx Allergies Allergy/AdvReac Type Severity Reaction Status Date / Time ibuprofen Allergy Mild ALGY-Rash Verified 03/02/20 13:52 PFSH NPU PFSH: Medical History Cigarette nicotine dependence Major depressive disorder, single episode, in full remission Other shelter (current) drug therapy Other schizophrenia Other stimulant dependence, uncomplicated Family History (Reviewed 03/02/20 @ 17:49 by Shantel Brown MD, [facility] [place] Denies family history of Diabetes CAD (coronary artery disease) Cancer Hypertension Stroke Social History (Reviewed 03/02/20 @ 17:49 by Shantel Brown MD, [facility] [place] Smoking and tobacco status: current every day smoker cigarettes [ Other cigar ette details: 5 daily ] Quit status (tobacco): considering quitting Second hand smoke exposure: Yes Alcohol intake: former History of recent travel: No Other Psychiatric History: Other Psychiatric History: The patient has been on Celexa for a long time. She thinks it is not working anymore but is willing to consider an SSRI. Hospital Course Hospital Course Hilda presented to the emergency room endorsing depression, anxiety and suicidality and she was admitted to the neuropsychiatric unit for definitive t reatment of those issues. She slowly acclimated to the individual and milieu therapies provided as she was struggling with ambivalence about staying or discharge. Ultimately Dr. Aguirre had changed her medication including discontinuing Xanax and she was very insistent on how much that helped and wanting to have that restarted. Agree that she would have to talk to her outpatient provider given that person will be the one writing that regular prescription and the person and knows her better. Her Celexa was decreased and Neurontin and Seroquel were added with a positive response. During hosp italization she had routine laboratory studies which were within normal limits except for a few outliers. She also had a general medical evaluation which is also within normal limits and revealed no new acute processes. Discharge Summary At the time of discharge she denied all lethality and psychotic symptoms. Mood and anxiety were stable and she endorsed a plan to avoid any drugs of abuse. She reported a plan to follow the recommendations made by the treatment team. She was evaluated and found to be absent any credible lethality and obtained the maximum benefit from an inpatient hospitalization so she was discharged. Involuntary Hold Information 96 Hour Hold: 96 Hour Involuntary Admission: No Mental Status Exam MSE Comments: This is an obese, older, white female, with adequate dress and limited grooming and eye contact. No abnormal movements, except for psychomotor retardation. Cooperative with exam in no acute distress. Speech was decreased rate and normal volume. Mood described as pretty good; affect calm. Thought process, organized. Thought content: patient denied any suicidal or homicidal ideation, there were no delusions reported or noted, patient denied any auditory or visual hallucinations. Attention, concentration, and memory appear intact but none were formally tested. She is alert and oriented times three. Insight and judgment are improving. Impulse control is improving. Discharge Data Data Completed and Pending: Pending at discharge Category Date Time Status CBC Auto Diff [Co mplete Blood Count w/Auto] WEEKLY Lab 03/09/20 10:45 Ordered Vitals: Last Vital Signs Temp 98.2 F 03/07/20 20:40 Pulse 90 03/07/20 20:40 Resp 20 H 03/07/20 20:40 BP 93/68 03/07/20 20:40 Pulse Ox 96 03/07/20 20:40 Discharge Plan Discharge Patient Disposition: Home Condition: Stable Prescriptions: New citalopram 20 mg Tablet 20 mg PO DAILY 30 Days Qty: 30 RF: 1 quetiapine 25 mg Tablet 50 mg PO TID 30 Days Qty: 180 RF: 1 gabapentin 100 mg Capsule 100 mg PO BID 30 Days Qty: 60 RF: 1 Continued mirtazapine 45 mg tablet 45 mg PO BEDTIME Qty: 30 RF: 5 clozapine 100 mg tablet 300 mg PO .qhs Qty: 90 RF: 5 clozapine 50 mg tablet 50 mg PO BID Qty: 60 RF: 5 meloxicam 7.5 mg tablet 7.5 mg PO BID RF: 0 montelukast [Singulair] 10 mg tablet 10 mg PO DAILY RF: 0 Dexilant 60 mg capsule,biphase delayed releas 60 mg PO DAILY RF: 0 Flonase Allergy Relief nasal spray syringe 2 spray NOSTRIL-B DAILY RF: 0 Ventolin HFA aerosol 2 puff inhalation Q4H PRN (Reason: Shortness Of Breath) RF: 0 docusate sodium 100 mg capsule 100 mg PO BID PRN (Reason: Constipation) RF: 0 oxybutynin chloride 15 mg Tablet Extended Release 24hr 15 mg PO DAILY RF: 0 ondansetron HCl [Zofran] 4 mg tablet 4 mg PO Q6H PRN (Reason: nausea and vomiting) Qty: 10 RF: 0 Discontinued citalopram [Celexa] 40 mg tablet 40 mg PO DAILY Qty: 30 RF: 5 alprazolam [Xanax] 0.5 mg tablet 0.5 mg PO BID Qty: 60 RF: 5 Discharge Orders: Discharge Order (Routine); Ordered 03/08/20 Ordered By: Lawrence Martinez Referrals: Grecia Kuhn MD [Primary Care Provider] - Slim Arguello DO [Staff Physician] - 03/19/20 9:30 am Discharge Diet: Regular Discharge Activity: Resume usual activity Patient Instructions: Gabapentin (By mouth), Quetiapine (By mouth), Citalopram (By mouth), Depression (DC), Anxiety (DC) Activity Restrictions/Additional Instructions: A referral for PSR (psychosocial rehabilitation) was requested. If needed, you may check about your referral at [facility] ([facility]) by calling [phone] Discharge Date/Time: 03/08/20 12:39 Discharge Attestations NPU Time Spent in Discharge Care*: less than 30 min Specific Discharge Activities: Specific discharge activities: educating patient, discussing with window caser/social workers/dc planners, documentin g/other paperwork and evaluating patient/reviewing data Coding Level of Care Code Acute [facility] for [facility] Fwd Diagnoses Acute anxiety F41.9 Depression F33.2 Active/Remission status: currently active Depression Type: major depressive disorder Major depression episode severity: severe Major depression recurrence: recurrent Psychotic features: without psychotic features Cigarette nicotine dependence F17.210 Other schizophrenia F20.89
== END 2020-03-08 12:39 | disposition home or self-care (01) | DRG 885 ==
LOC: ER 17:52 → NP 17:54
PROVIDERS: Family Medicine; PCP Family Medicine; Visit Provider Psychiatry & Neurology Psychiatry
DX: F33.2 Major depressive disorder, recurrent severe without psychotic features (principal); R45.851 Suicidal ideations; G47.00 Insomnia, unspecified; M54.5 Low back pain; F17.210 Nicotine dependence, cigarettes, uncomplicated; Z79.899 Other long term (current) drug therapy; F20.89 Other schizophrenia; F41.9 Anxiety disorder, unspecified
CPT/HCPCS: 12345; 36415; 76705; 80053; 80306; 80307; 81001; 81025; 83690; 83735; 84443; 85025; 94640; 96372; 99282; 99283; 99284; J3486; J3535

== ENCOUNTER → 2020-03-19 07:35 | Outpatient (BNVA) | payer MEDICARE, MEDICAID, SELFPAY | PROVIDERS: PCP Family Medicine; Visit Provider Psychiatry & Neurology Psychiatry | DX: F20.89 Other schizophrenia (principal); F32.5 Major depressive disorder, single episode, in full remission; F17.210 Nicotine dependence, cigarettes, uncomplicated | CPT/HCPCS: 99213 ==

== ENCOUNTER 2020-04-09 15:14 | Emergency (ER) | payer MEDICARE, MEDICAID, SELFPAY ==
[2020-04-09 15:51] VITALS: BP 108/76; PULSE 104; RESP 18; TEMP 36.5; O2SAT 97; BMI 29.9
--- NOTE | 2020-04-09 16:34 | W.ED.DENTAL ---
HPI - Dental/Oral General: Chief complaint: Dental/Oral Stated complaint: DENTAL PAIN Time Seen by Provider: 04/09/20 16:23 History of Present Illness: HPI Narrative: He has right lower jaw tooth ache she has her teeth scheduled be pulled on Sunday wants pain medicine maybe 3 to Sunday Complaint: tooth pain Onset (ago): day(s) Duration: constant Severity: moderate Severity scale (1-10): 4 Relieving factors: nothing Context: history of dental caries Associated symptoms: Reports no associated symptoms; Denies fever(s) Review of Systems Const: Denies: fever(s), chills or body aches Eyes: Denies: change in vision or blurry vision ENMT: Reports: dental pain; Denies: throat pain or nasal congestion Card: Denies: chest pain or dyspnea on exertion Resp: Denies: dyspnea, productive cough or non-productive cough GI: Denies: abdominal pain, nausea or vomiting Musc: Denies: extremity pain Skin/Breast: Denies: rash Neuro: Denies: headache(s) Psych: Denies: anxiety or depression Trevon/Lymph: Denies: easy bruising PFSH ED PFSH: Medical History (Updated 04/10/20 @ 07:10 by Keri Honeycutt APRN) Cigarette nicotine dependence Major depressive disorder, single episode, in full remission 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 Dental caries Psych: COMMON NORMALS: mental status grossly normal Course Vital Signs: Vital signs: Vital Signs Temperature 97.7 F 04/09/20 15:51 Pulse Rate 104 H 04/09/20 15:51 Respiratory Rate 18 04/09/20 15:51 Blood Pressure 108/76 04/09/20 15:51 Pulse Oximetry 97 04/09/20 15:51 Discharge Plan Discharge Patient Disposition: Home Clinical Impression: Dental caries Condition: Stable Prescriptions: New clindamycin HCl 300 mg capsule 300 mg PO TID 7 Days Qty: 21 RF: 0 No Action mirtazapine 45 mg tablet 45 mg PO BEDTIME Qty: 30 RF: 5 clozapine 100 mg tablet 300 mg PO .qhs Qty: 90 RF: 5 clozapine 50 mg tablet 50 mg PO BID Qty: 60 RF: 5 meloxicam 7.5 mg tablet 7.5 mg PO BID RF: 0 montelukast [Singulair] 10 mg tablet 10 mg PO DAILY RF: 0 Dexilant 60 mg capsule,biphase delayed releas 60 mg PO DAILY RF: 0 Flonase Allergy Relief nasal spray syringe 2 spray NOSTRIL-B DAILY RF: 0 Ventolin HFA aerosol 2 puff inhalation Q4H PRN (Reason: Shortness Of Breath) RF: 0 docusate sodium 100 mg capsule 100 mg PO BID PRN (Reason: Constipation) RF: 0 oxybutynin chloride 15 mg Tablet Extended Release 24hr 15 mg PO DAILY RF: 0 ondansetron HCl [Zofran] 4 mg tablet 4 mg PO Q6H PRN (Reason: nausea and vomiting) Qty: 10 RF: 0 citalopram 20 mg Tablet 20 mg PO DAILY 30 Days Qty: 30 RF: 1 quetiapine 25 mg Tablet 50 mg PO TID 30 Days Qty: 180 RF: 1 gabapentin 100 mg Capsule 100 mg PO BID 30 Days Qty: 60 RF: 1 acetaminophen-codeine 300-15 mg tablet 1 tab PO Q8H 5 Days Qty: 15 RF: 0 Discharge Orders: Discharge Order (Routine); Ordered 04/09/20 Ordered By: Jeremy Cortez Referrals: Grecia Kuhn MD [Primary Care Provider] - Discharge Diet: Usual diet Discharge Activity: Increase activity as tolerated Patient Instructions: Dental Caries (ED) Activity Restrictions/Additional Instructions: Follow-up with medical provider as directed. Take medications as prescribed. Return to the ER or your medical provider if condition worsens. Please read and understand discharge instructions. If any questions ask please. Follow-up dentist as scheduled on Sunday at 2:00 for teeth removal Discharge Date/Time: 04/09/20 16:49 Coding Level of Care Code ED Organisational Psychologist for Chg Fwd Exam Expanded Problem Focused
== END 2020-04-09 16:49 | disposition home or self-care (01) ==
PROVIDERS: Emergency Provider Nurse Practitioner Family; PCP Family Medicine
DX: K02.9 Dental caries, unspecified (principal); F17.210 Nicotine dependence, cigarettes, uncomplicated
CPT/HCPCS: 12345; 99281; 99282

== ENCOUNTER 2020-04-10 06:30 | Emergency (ER) | payer MEDICARE, MEDICAID, SELFPAY ==
[2020-04-10 06:39] VITALS: BMI 4263.7
[2020-04-10 07:02] VITALS: BP 101/79; PULSE 82; RESP 18; TEMP 36.2; O2SAT 96; BMI 29.9
--- NOTE | 2020-04-10 07:04 | W.ED.DENTAL ---
HPI - Dental/Oral General: Chief complaint: Dental/Oral Stated complaint: DENTAL PAIN Time Seen by Provider: 04/10/20 06:32 Source: patient Mode of arrival: ambulatory Limitations: no limitations History of Present Illness: HPI Narrative: Has poor dentation with multiple caries, tooth has broken and will require removal. Scheduled for sunday. Was seen for dental pain yesterday in the ER but has not gotten any improvement from symptoms. MD Complaint: tooth pain and tooth injury Teeth map: 1. Broken Severity scale (1-10): 8 Relieving factors: nothing Exacerbating factors: chewing, cold, heat and drinking fluids Context: history of dental caries and poor dental care Associated symptoms: Denies fever(s) Review of Systems General: Reports: 10 or more systems reviewed and unremarkable except in HPI and below Const: Denies: fever(s), chills or body aches PFSH ED PFSH: Medical History (Updated 04/10/20 @ 07:10 by Keri Honeycutt APRN) Cigarette nicotine dependence Major depressive disorder, single episode, in full remission 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 Other schizophrenia Other stimulant dependence, uncomplicated Family History Denies family history of Diabetes CAD (coronary artery disease) Cancer Hypertension Stroke Social History Smoking and tobacco status: current every day smoker cigarettes [ Other cigarette details: 5 daily ] Quit status (tobacco): considering quitting Second hand smoke exposure: Yes Alcohol intake: former History of recent travel: No Physical Exam Const: COMMON NORMALS: no acute distress GENERAL APPEARANCE: cooperative HENMT: COMMON NORMALS: normocephalic and atraumatic HEAD & SCALP: normocephalic and atraumatic TEETH & GINGIVA: Yes caries, Yes poor dentition and Yes teeth discoloration THROAT: posterior oropharynx normal Neck/C-Spine: COMMON NORMALS: no JVD Resp: COMMON NORMALS: normal respiratory effort, No retractions, No use of accessory muscles and clear to auscultation bilaterally AUSCULTATION: clear to auscultation bilaterally Cardio: COMMON NORMALS: no JVD, regular rate and regular rhythm RATE: regular rate RHYTHM: regular rhythm GI: COMMON NORMALS: Normal to inspection, nondistended, normoactive bowel sounds present Extremity: COMMON NORMALS: normal to inspection Course ED course: Has taken her tramadol as previously ordered, tooth is broken off and now causing significantly more pain. Scheduled for removal this week, sun. MDM - Dental/Oral MDM Narrative: Medical decision making narrative: Tylenol #3, dc tramadol. Keep scheduled appointment for extraction of teeth. Discharge Plan Discharge Patient Disposition: Home Clinical Impression: Dental caries, Tooth abnormal shape Condition: Stable Prescriptions: New acetaminophen-codeine 300-15 mg tablet 1 tab PO Q8H 5 Days Qty: 15 RF: 0 Discontinued tramadol 50 mg tablet 50 mg PO Q8H PRN (Reason: pain) Qty: 7 RF: 0 No Action mirtazapine 45 mg tablet 45 mg PO BEDTIME Qty: 30 RF: 5 clozapine 100 mg tablet 300 mg PO .qhs Qty: 90 RF: 5 clozapine 50 mg tablet 50 mg PO BID Qty: 60 RF: 5 meloxicam 7.5 mg tablet 7.5 mg PO BID RF: 0 montelukast [Singulair] 10 mg tablet 10 mg PO DAILY RF: 0 Dexilant 60 mg capsule,biphase delayed releas 60 mg PO DAILY RF: 0 Flonase Allergy Relief nasal spray syringe 2 spray NOSTRIL-B DAILY RF: 0 Ventolin HFA aerosol 2 puff inhalation Q4H PRN (Reason: Shortness Of Breath) RF: 0 docusate sodium 100 mg capsule 100 mg PO BID PRN (Reason: Constipation) RF: 0 oxybutynin chloride 15 mg Tablet Extended Release 24hr 15 mg PO DAILY RF: 0 ondansetron HCl [Zofran] 4 mg tablet 4 mg PO Q6H PRN (Reason: nausea and vomiting) Qty: 10 RF: 0 citalopram 20 mg Tablet 20 mg PO DAILY 30 Days Qty: 30 RF: 1 quetiapine 25 mg Tablet 50 mg PO TID 30 Days Qty: 180 RF: 1 gabapentin 100 mg Capsule 100 mg PO BID 30 Days Qty: 60 RF: 1 clindamycin HCl 300 mg capsule 300 mg PO TID 7 Days Qty: 21 RF: 0 Discharge Orders: Discharge Order (Routine); Ordered 04/10/20 Ordered By: Keri Honeycutt Referrals: Grecia Kuhn MD [Primary Care Provider] - Discharge Diet: Soft Mechanical Discharge Activity: Resume usual activity Patient Instructions: Dental Caries (ED) Coding Level of Care Code ED Customer Solutions Coordinator for 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
[2020-04-10 07:32] VITALS: BP 101/73; PULSE 101; RESP 18; O2SAT 98
== END 2020-04-10 07:34 | disposition home or self-care (01) ==
PROVIDERS: Emergency Provider Nurse Practitioner Family; PCP Family Medicine
DX: K02.9 Dental caries, unspecified (principal); K00.2 Abnormalities of size and form of teeth; F17.210 Nicotine dependence, cigarettes, uncomplicated
CPT/HCPCS: 12345; 99281

== ENCOUNTER → 2020-04-16 07:31 | Outpatient (BNVA) | payer MEDICARE, MEDICAID, SELFPAY | PROVIDERS: PCP Family Medicine; Visit Provider Psychiatry & Neurology Psychiatry | DX: F20.89 Other schizophrenia (principal); F32.5 Major depressive disorder, single episode, in full remission; F17.210 Nicotine dependence, cigarettes, uncomplicated | CPT/HCPCS: 99213 ==

== ENCOUNTER 2020-04-17 14:26 | Emergency (ER) | payer MEDICARE, MEDICAID, SELFPAY ==
[2020-04-17 14:31] VITALS: BP 113/72; PULSE 107; RESP 18; TEMP 36.6; O2SAT 96; BMI 30.2
--- NOTE | 2020-04-17 15:57 | W.ED.GENADLT ---
HPI - General Adult General: Chief complaint: General Medical Stated complaint: DENTAL PAIN Time Seen by Provider: 04/17/20 15:16 History of Present Illness: HPI narrative: 54-year-old female comes in complaining of difficulty with her teeth. She had several teeth extracted this week. Her primary complaint is she wants refills of her narcotic pain medications she is still on antibiotics she has been seeing a local dentist. Onset (ago): day(s) Severity: moderate Quality: aching Pain Consistency: constant Relieving factors: none Exacerbating factors: none Associated symptoms: Deny chest pain, confusion, cough, diaphoresis, decreased appetite, dyspnea, fevers/chills, headache(s), malaise, nausea, rash, palpitations, short of breath, syncope, vomiting or weakness Review of Systems Const: Denies: malaise or diaphoresis ENMT: Denies: throat pain, ear or mastoid pain, nasal discharge or nasal congestion Card: Denies: chest pain, palpitations or syncope Resp: Denies: dyspnea GI: Denies: nausea or vomiting : Denies: flank pain, difficulty voiding, dysuria, urinary frequency or urinary urgency Skin/Breast: Denies: rash Neuro: Denies: headache(s) or confusion PFSH ED PFSH: Medical History Cigarette nicotine dependence Major depressive disorder, single episode, in full remission Other detention (current) drug therapy Other schizophrenia Other stimulant dependence, uncomplicated Family History Denies family history of Diabetes CAD (coronary artery disease) Cancer Hypertension Stroke Social History Smoking and tobacco status: current every day smoker cigarettes [ Other cigarette details: 5 daily ] Quit status (tobacco): considering quitting Second hand smoke exposure: Yes Alcohol intake: former History of recent travel: No Physical Exam Const: COMMON NORMALS: no acute distress GENERAL APPEARANCE: cooperative and comfortable HENMT: COMMON NORMALS: normocephalic, atraumatic and hearing grossly normal bilaterally HEAD & SCALP: normocephalic and atraumatic Neck/C-Spine: COMMON NORMALS: no JVD Resp: COMMON NORMALS: normal respiratory effort, No retractions, No use of accessory muscles and clear to auscultation bilaterally AUSCULTATION: clear to auscultation bilaterally Cardio: COMMON NORMALS: no JVD, regular rate, regular rhythm and No murmurs present (Cardio) RATE: regular rate RHYTHM: regular rhythm Course Vital Signs: Vital signs: Vital Signs Temperature 97.8 F 04/17/20 14:31 Pulse Rate 107 H 04/17/20 14:31 Respiratory Rate 18 04/17/20 14:31 Blood Pressure 113/72 04/17/20 14:31 Pulse Oximetry 96 04/17/20 14:31 MDM - General Adult MDM Narrative: Medical decision making narrative: Patient to follow-up with her dentist for further pain control needs she is used all of the narcotics that he had prescribed we will not be able to refill narcotics here for her we can give her a nonnarcotic alternative. Discharge Plan Discharge Patient Disposition: Home Clinical Impression: Pain, dental Condition: Stable Prescriptions: New diclofenac sodium 75 mg tablet,delayed release (DR/EC) 75 mg PO Q12H PRN (Reason: pain) Qty: 20 RF: 0 Held meloxicam 7.5 mg tablet 7.5 mg PO BID RF: 0 Hold Instructions: Resume on 05/01/20. No Action clozapine 100 mg tablet 300 mg PO .qhs Qty: 90 RF: 5 clozapine 50 mg tablet 50 mg PO BID Qty: 60 RF: 5 montelukast [Singulair] 10 mg tablet 10 mg PO DAILY RF: 0 Dexilant 60 mg capsule,biphase delayed releas 60 mg PO DAILY RF: 0 quetiapine 25 mg tablet 50 mg PO TID 30 Days Qty: 180 RF: 1 mirtazapine 45 mg tablet 45 mg PO BEDTIME Qty: 30 RF: 5 citalopram 20 mg tablet 20 mg PO DAILY 30 Days Qty: 30 RF: 1 Flonase Allergy Relief nasal spray syringe 2 spray NOSTRIL-B DAILY RF: 0 Ventolin HFA aerosol 2 puff inhalation Q4H PRN (Reason: Shortness Of Breath) RF: 0 docusate sodium 100 mg capsule 100 mg PO BID PRN (Reason: Constipation) RF: 0 oxybutynin chloride 15 mg Tablet Extended Release 24hr 15 mg PO DAILY RF: 0 ondansetron HCl [Zofran] 4 mg tablet 4 mg PO Q6H PRN (Reason: nausea and vomiting) Qty: 10 RF: 0 gabapentin 100 mg Capsule 100 mg PO BID 30 Days Qty: 60 RF: 1 Discharge Orders: Discharge Order (Routine); Ordered 04/17/20 Ordered By: Cesar Neil Referrals: Grecia Kuhn MD [Primary Care Provider] - Discharge Diet: Usual diet Activity Restrictions/Additional Instructions: Follow-up with your dentist at first available opportunity Discharge Date/Time: 04/17/20 16:37 Coding Level of Care Code ED Technical Sales Associate for Chg Fwd Exam Detailed
== END 2020-04-17 16:37 | disposition home or self-care (01) ==
PROVIDERS: Emergency Provider Family Medicine; PCP Family Medicine
DX: K08.89 Other specified disorders of teeth and supporting structures (principal); F17.210 Nicotine dependence, cigarettes, uncomplicated
CPT/HCPCS: 12345; 99281; 99282

== ENCOUNTER 2020-05-05 18:56 | Emergency (ER) | payer MEDICARE, MEDICAID, SELFPAY ==
[2020-05-05 19:17] VITALS: BP 111/77; PULSE 107; RESP 17; TEMP 36.6; O2SAT 96; BMI 33.5
[2020-05-05 19:33] VITALS: BP 119/81; PULSE 74; RESP 20; O2SAT 98
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
[2020-05-05] MEDS: TRAMadol 50 mg Tablet PO (19:43)
[2020-05-05 19:48] VITALS: BP 119/81; PULSE 74; RESP 18; O2SAT 98
== END 2020-05-05 19:57 | disposition home or self-care (01) ==
PROVIDERS: Emergency Provider Emergency Medicine; PCP Family Medicine
DX: R51.9 Headache, unspecified (principal); F17.210 Nicotine dependence, cigarettes, uncomplicated
CPT/HCPCS: 12345; 99281; 99282

== ENCOUNTER 2020-05-06 17:47 | Emergency (ER) | payer MEDICARE, MEDICAID, SELFPAY ==
[2020-05-06 18:27] VITALS: BP 118/80; PULSE 98; RESP 16; TEMP 36.7; O2SAT 97; BMI 33.5
[2020-05-06] MEDS: naproxen 500 mg Tablet PO (18:45)
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
== END 2020-05-06 18:46 | disposition home or self-care (01) ==
PROVIDERS: Emergency Provider Emergency Medicine; PCP Family Medicine
DX: R51.9 Headache, unspecified (principal); F17.210 Nicotine dependence, cigarettes, uncomplicated
CPT/HCPCS: 12345; 99281; 99282

== ENCOUNTER → 2020-05-14 07:33 | Outpatient (BNVA) | payer MEDICARE, MEDICAID, SELFPAY | PROVIDERS: PCP Family Medicine; Visit Provider Psychiatry & Neurology Psychiatry | DX: F20.89 Other schizophrenia (principal); F17.210 Nicotine dependence, cigarettes, uncomplicated; F32.5 Major depressive disorder, single episode, in full remission | CPT/HCPCS: 99213 ==

== ENCOUNTER 2020-05-14 14:03 | Emergency (ER) | payer MEDICARE, MEDICAID, SELFPAY ==
[2020-05-14 14:07] VITALS: BP 123/82; PULSE 99; RESP 18; TEMP 36.6; O2SAT 96; BMI 33.5
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
== END 2020-05-14 16:33 | disposition home or self-care (01) ==
PROVIDERS: Emergency Provider Emergency Medicine; PCP Family Medicine
DX: G89.29 Other chronic pain (principal); R51.9 Headache, unspecified; F17.210 Nicotine dependence, cigarettes, uncomplicated
CPT/HCPCS: 12345; 99282

== ENCOUNTER → 2020-06-11 07:15 | Outpatient (BNVA) | payer MEDICARE, MEDICAID, SELFPAY | PROVIDERS: PCP Family Medicine; Visit Provider Psychiatry & Neurology Psychiatry | DX: F20.89 Other schizophrenia (principal); F32.5 Major depressive disorder, single episode, in full remission; F17.210 Nicotine dependence, cigarettes, uncomplicated | CPT/HCPCS: 99213 ==

== ENCOUNTER 2020-06-16 17:11 | Emergency (ER) | payer MEDICARE, MEDICAID, SELFPAY ==
[2020-06-16 17:29] VITALS: BP 114/76; PULSE 102; RESP 16; TEMP 36.7; O2SAT 95; BMI 34.4
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
[2020-06-16] MEDS: acetaminophen 500 mg Tablet 1000 MG PO (21:57)
[2020-06-16 22:00] VITALS: BP 113/72; PULSE 96; RESP 16; O2SAT 97
[2020-06-16 22:14] LABS: Add Urine Microscopic? NO
[2020-06-16 22:34] LABS: Bilirubin Urine Neg (Negative); Blood Urine Neg (Negative); Glucose Urine UA Norm (Normal); Ketones Urine Negative (Negative); Leukocyte Esterase Urine Negative (Negative); Nitrate Urine Negative (Negative); Protein Urine Neg (Negative); Specific Gravity, Urine 1.005 (1.005-1.030); Urine Appearance Clear (CLEAR); Urine Color Yellow (Yellow); Urobilinogen Urine Norm (Negative)
[2020-06-16 23:04] VITALS: BP 132/86; PULSE 78; RESP 16; O2SAT 99
== END 2020-06-16 23:08 | disposition home or self-care (01) ==
PROVIDERS: Emergency Provider Emergency Medicine; PCP Family Medicine
DX: G89.29 Other chronic pain (principal); F17.210 Nicotine dependence, cigarettes, uncomplicated
CPT/HCPCS: 12345; 81003; 99282

== ENCOUNTER → 2020-07-20 07:30 | Outpatient (BNVA) | payer MEDICARE, MEDICAID, SELFPAY | PROVIDERS: PCP Family Medicine; Visit Provider Psychiatry & Neurology Psychiatry | DX: F32.5 Major depressive disorder, single episode, in full remission (principal); F20.89 Other schizophrenia; F17.210 Nicotine dependence, cigarettes, uncomplicated | CPT/HCPCS: 99213 ==

== ENCOUNTER 2020-07-28 17:05 | Emergency (ER) | payer MEDICARE, MEDICAID, SELFPAY ==
[2020-07-28 17:34] VITALS: BP 115/67; PULSE 105; RESP 15; TEMP 36.5; O2SAT 96; BMI 34.4
[2020-07-28 17:37] VITALS: BP 116/78; PULSE 87; RESP 16; O2SAT 98
--- NOTE | 2020-07-28 17:47 | ED_ITS ---
HPI - General Adult General: Chief complaint: Dental/Oral Stated complaint: dental pain/seeking pain script Time Seen by Provider: 07/28/20 17:40 History of Present Illness: HPI narrative: Patient here requesting narcotics for 12 days postop dental extraction pain. Patient has taken antibiotics. Said she is out of her [place]. She said her dentist said to come here and get some more [place]. Patient well-known to the ER for narcotic use. MD complaint: Drug-seeking behavior Review of Systems Narrative: Patient states he needs refill of her [place] dentist will not refill it presently said her jaw hurt from where she had her 3 teeth pulled 12 days ago. 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 Psych: COMMON NORMALS: mental status grossly normal Course Vital Signs: Vital signs: Vital Signs Temperature 97.7 F 07/28/20 17:34 Pulse Rate 87 07/28/20 17:37 Respiratory Rate 16 07/28/20 17:37 Blood Pressure 116/78 07/28/20 17:37 Pulse Oximetry 98 07/28/20 17:37 Discharge Plan Discharge Patient Disposition: Home Clinical Impression: Post-op pain Condition: Stable Prescriptions: New Celebrex 100 mg capsule 100 mg PO BID Qty: 10 RF: 0 Held meloxicam 7.5 mg tablet 7.5 mg PO BID RF: 0 Hold Instructions: Resume on 05/01/20. No Action alprazolam [Xanax] 0.5 mg tablet 0.5 mg PO BID Qty: 60 RF: 1 montelukast [Singulair] 10 mg tablet 10 mg PO DAILY RF: 0 Dexilant 60 mg capsule,biphase delayed releas 60 mg PO DAILY RF: 0 mirtazapine 45 mg tablet 45 mg PO BEDTIME Qty: 30 RF: 5 clozapine 50 mg tablet 50 mg PO BID Qty: 60 RF: 5 clozapine 100 mg tablet 300 mg PO .qhs Qty: 90 RF: 5 prednisone 20 mg tablet 40 mg PO DAILY 5 Days Qty: 10 RF: 0 azithromycin 250 mg tablet See Rx Instructions PO .COMPLEX Qty: 6 RF: 0 citalopram 20 mg tablet 20 mg PO DAILY 30 Days Qty: 30 RF: 5 quetiapine 25 mg tablet 50 mg PO TID 30 Days Qty: 180 RF: 5 Flonase Allergy Relief nasal spray syringe 2 spray NOSTRIL-B DAILY RF: 0 Ventolin HFA aerosol 2 puff inhalation Q4H PRN (Reason: Shortness Of Breath) RF: 0 Tylenol Extra Strength 500 mg tablet 500 mg PO Q6H PRN (Reason: fever or pain) Qty: 60 RF: 0 docusate sodium 100 mg capsule 100 mg PO BID PRN (Reason: Constipation) RF: 0 oxybutynin chloride 15 mg Tablet Extended Release 24hr 15 mg PO DAILY RF: 0 gabapentin 100 mg Capsule 100 mg PO BID 30 Days Qty: 60 RF: 1 Discharge Orders: Discharge ED (Routine); Ordered 07/28/20 Ordered By: Jeremy Cortez Referrals: Grecia Kuhn MD [Primary Care Provider] - Discharge Diet: Usual diet Discharge Activity: Resume usual activity Activity Restrictions/Additional Instructions: Follow-up with your dentist as scheduled Coding Level of Care Code ED Nurses Educator for Chg Fwd Exam Problem Focused
== END 2020-07-28 17:54 | disposition home or self-care (01) ==
PROVIDERS: Emergency Provider Nurse Practitioner Family; PCP Family Medicine
DX: G89.18 Other acute postprocedural pain (principal); K08.89 Other specified disorders of teeth and supporting structures; F17.210 Nicotine dependence, cigarettes, uncomplicated
CPT/HCPCS: 12345; 99281

== ENCOUNTER 2020-08-01 17:59 | Emergency (ER) | payer MEDICARE, MEDICAID, SELFPAY ==
[2020-08-01 18:11] VITALS: BP 129/69; PULSE 104; RESP 14; TEMP 36.9; O2SAT 96; BMI 34.4
[2020-08-01] MEDS: TRAMadol 50 mg Tablet 100 MG PO (20:13)
[2020-08-01] MEDS: ketorolac 30 mg/mL INJ IM (20:14)
[2020-08-01 20:18] VITALS: BP 104/78; PULSE 62; RESP 18; O2SAT 98
[2020-08-01 20:25] VITALS: BP 104/68; RESP 18; O2SAT 96
--- NOTE | 2020-08-02 00:41 | W.ED.BACK ---
HPI - Back Pain/Injury General: Chief Complaint: Back Pain/Injury Stated Complaint: back pain, pain down entire legs, headache Time Seen by Provider: 08/01/20 19:21 History of Present Illness: HPI Narrative: 55-year-old female well-known to the ER. She is here frequently with pain complaints. She reports chronic lower back pain that radiates down her right more than left leg. No bowel or bladder dysfunction. She feels like her legs are a bit weak. No numbness. She also states she has a headache. She states I cannot stay in that bed and hurt . No fever. MD elicited complaint: back pain Pertinent past history: prior back pain Onset (ago): year(s) Timing: constant Severity: moderate Similar Symptoms Previously: Yes Quality: stabbing and aching Location: lumbar spine Exacerbating factors: movement Relieving factors: none Context: unknown Associated symptoms: Deny abdominal pain, fever(s), nausea or vomiting Treatments prior to arrival: heat therapy and acetaminophen Review of Systems Const: Denies: fever(s) Resp: Denies: dyspnea or productive cough GI: Denies: abdominal pain, nausea or vomiting PFSH ED PFSH: Medical History (Updated 08/01/20 @ 20:05 by Tai Sebastian DO) Cigarette nicotine dependence Major depressive disorder, single episode, in full remission 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 Other schizophrenia Other stimulant dependence, uncomplicated Family History Denies family history of Diabetes CAD (coronary artery disease) Cancer Hypertension Stroke Social History Smoking and tobacco status: current every day smoker cigarettes [ Other cigarette details: 5 daily ] Quit status (tobacco): considering quitting Second hand smoke exposure: Yes Alcohol intake: former History of recent travel: No Physical Exam Const: COMMON NORMALS: patient oriented x3 and alert Chest: COMMONS NORMALS: normal inspection of the chest Resp: COMMON NORMALS: normal respiratory effort, No retractions, No use of accessory muscles and clear to auscultation bilaterally AUSCULTATION: clear to auscultation bilaterally Cardio: COMMON NORMALS: regular rate, regular rhythm and No murmurs present (Cardio) RATE: regular rate RHYTHM: regular rhythm GI: COMMON NORMALS: Normal to inspection, nondistended, normoactive bowel sounds present and Soft to palpation PALPATION: Yes Soft to palpation : COMMON NORMALS: Yes no CVA tenderness BLADDER/KIDNEY EXAM: Yes no CVA tenderness Back/Pelvis: COMMON NORMALS: no CVA tenderness and thoracic and lumbar spine normal to inspection OTHER: No focal tenderness. More widespread tenderness that seems to wax and wane with level of distraction. Neuro: COMMON NORMALS: patient oriented x3 SENSORIUM/ORIENTATION: Yes alert OTHER: Intact and equal great toe extension, and plantar flexion bilaterally. Negative straight leg raise testing bilaterally. Sensation intact. Course Vital Signs: Vital signs: Vital Signs Temperature 98.4 F 08/01/20 18:11 Pulse Rate 62 08/01/20 20:18 Respiratory Rate 18 08/01/20 20:25 Blood Pressure 104/68 08/01/20 20:25 Pulse Oximetry 96 08/01/20 20:25 Discharge Plan Discharge Patient Disposition: Home Clinical Impression: Lumbar radiculopathy Condition: Stable Prescriptions: No Action alprazolam [Xanax] 0.5 mg tablet 0.5 mg PO BID Qty: 60 RF: 1 meloxicam 7.5 mg tablet 7.5 mg PO BID RF: 0 Hold Instructions: Resume on 05/01/20. montelukast [Singulair] 10 mg tablet 10 mg PO DAILY RF: 0 Dexilant 60 mg capsule,biphase delayed releas 60 mg PO DAILY RF: 0 mirtazapine 45 mg tablet 45 mg PO BEDTIME Qty: 30 RF: 5 clozapine 50 mg tablet 50 mg PO BID Qty: 60 RF: 5 clozapine 100 mg tablet 300 mg PO .qhs Qty: 90 RF: 5 prednisone 20 mg tablet 40 mg PO DAILY 5 Days Qty: 10 RF: 0 azithromycin 250 mg tablet See Rx Instructions PO .COMPLEX Qty: 6 RF: 0 citalopram 20 mg tablet 20 mg PO DAILY 30 Days Qty: 30 RF: 5 quetiapine 25 mg tablet 50 mg PO TID 30 Days Qty: 180 RF: 5 Flonase Allergy Relief nasal spray syringe 2 spray NOSTRIL-B DAILY RF: 0 Ventolin HFA aerosol 2 puff inhalation Q4H PRN (Reason: Shortness Of Breath) RF: 0 Tylenol Extra Strength 500 mg tablet 500 mg PO Q6H PRN (Reason: fever or pain) Qty: 60 RF: 0 docusate sodium 100 mg capsule 100 mg PO BID PRN (Reason: Constipation) RF: 0 oxybutynin chloride 15 mg Tablet Extended Release 24hr 15 mg PO DAILY RF: 0 gabapentin 100 mg Capsule 100 mg PO BID 30 Days Qty: 60 RF: 1 Celebrex 100 mg capsule 100 mg PO BID Qty: 10 RF: 0 Discharge Orders: Discharge ED (Routine); Ordered 08/01/20 Ordered By: Tai Sebastian Referrals: Grecia Kuhn MD [Primary Care Provider] - 4-7 days Discharge Diet: Advance as tolerated Discharge Activity: Increase activity as tolerated Patient Instructions: Lumbar Radiculopathy (ED) Activity Restrictions/Additional Instructions: We are unable to prescribe you any narcotic pain medication for chronic problems see your primary care doctor for ongoing problems. Coding Level of Care Code ED No Bake Molder for 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
== END 2020-08-01 20:26 | disposition home or self-care (01) ==
PROVIDERS: Emergency Provider Emergency Medicine; PCP Family Medicine
DX: M54.16 Radiculopathy, lumbar region (principal); F17.210 Nicotine dependence, cigarettes, uncomplicated
CPT/HCPCS: 12345; 96372; 99281; 99283; J1885

== ENCOUNTER → 2020-08-11 07:29 | Outpatient (BNVA) | payer MEDICARE, MEDICAID, SELFPAY | PROVIDERS: PCP Family Medicine; Visit Provider Psychiatry & Neurology Psychiatry | DX: F32.5 Major depressive disorder, single episode, in full remission (principal); F20.89 Other schizophrenia; F17.210 Nicotine dependence, cigarettes, uncomplicated | CPT/HCPCS: 99215 ==

== ENCOUNTER → 2020-08-26 07:44 | Outpatient (BNVA) | payer MEDICARE, MEDICAID, SELFPAY | PROVIDERS: PCP Family Medicine; Visit Provider Psychiatry & Neurology Psychiatry | DX: F32.5 Major depressive disorder, single episode, in full remission (principal); F20.89 Other schizophrenia; F17.210 Nicotine dependence, cigarettes, uncomplicated | CPT/HCPCS: 99214 ==

== ENCOUNTER 2020-09-01 16:55 | Emergency (ER) | payer MEDICARE, MEDICAID, SELFPAY ==
[2020-09-01 16:55] VITALS: BP 141/76; PULSE 110; RESP 20; TEMP 36.6; O2SAT 96; BMI 33.5
--- NOTE | 2020-09-01 17:31 | XRR_ITS ---
PROCEDURE INFORMATION: Exam: XR Bilateral Sacroiliac Joints, 3 or More Views Exam date and time: 09/01/2020 5:54 PM Age: 55 years old Clinical indication: Injury or trauma; Fall; Blunt trauma (contusions or hematomas); Patient HX: PT slipped in shower and hit lower back. Pain in lower back; Additional info: Fall, RT sacral pain TECHNIQUE: Imaging protocol: XR Bilateral XR of the sacroiliac joints, 3 or more views. COMPARISON: CT abdomen pelvis w con* [id number] 11/23/2019 5:32 PM FINDINGS: Bones/joints: The bones are intact and in normal alignment. Prominent ossifications in the bilateral ischial tuberosities, likely indicating chronic apophysitis. Soft tissues: Normal. Gastrointestinal tract: Large amount of stool in the distal colon. Vasculature: Multiple calcified phleboliths and small fibroids in the pelvis. XR/XR sacroiliac jts m 3V [id number] IMPRESSION: No acute findings.
--- NOTE | 2020-09-01 17:33 | PC.NURSE ---
pt has redness to right flank area along with point tenderness. pt denies any blood in urine after falling. denies hitting head. lctab. bowel sounds present, abd soft/nontender.
[2020-09-01] MEDS: acetaminophen 500 mg Tablet 1000 MG PO (17:36)
--- NOTE | 2020-09-01 17:47 | ED_ITS ---
HPI - Fall General: Chief Complaint: Fall Stated Complaint: Fall/Back pain Source: patient Mode of arrival: ambulatory Limitations: no limitations History of Present Illness: HPI Narrative: 55-year-old female patient presents to the emergency department with acute onset of right posterior hip pain. She reports was in the shower, cleaning her shower when she slipped, falling on the step of the shower. She reports fell and landed on her right posterior hip. She denies further pain. She did not take medication for pain prior to arrival. She denies further complaints such as neck pain back pain or extremity pain. She reports did not lose consciousness. complaint: fall Onset (ago): hour(s) (1) Fall from: standing Fall witnessed: no Place fall occurred: home Loss of consciousness: None Prolonged down time: no Symptoms prior to fall: none Context: tripped/slipped Location of injury: other (posterior rt hip) Quality: burning and dull Associated symptoms-after fall: Reports no associated symptoms; Denies abdominal pain, chest pain, headache(s) or neck pain Review of Systems General: Reports: 10 or more systems reviewed and unremarkable except in HPI and below Const: Denies: fever(s), chills or diaphoresis Eyes: Denies: blurry vision or eye redness ENMT: Denies: throat pain, dental pain or disequilibrium Card: Denies: chest pain, palpitations or irregular heart rhythm Resp: Denies: dyspnea, productive cough, non-productive cough or wheezing GI: Denies: abdominal pain, nausea or vomiting : Denies: difficulty voiding or dysuria Musc: Reports: extremity pain (posterior hip); Denies: neck pain, back pain, joint pain or muscle weakness Skin/Breast: Denies: rash or pruritus Neuro: Denies: headache(s), weakness in extremities or behavioral changes Psych: Denies: anxiety or depression Trevon/Lymph: Denies: easy bruising PFSH ED PFSH: Medical History (Updated 09/01/20 @ 18:52 by ESSIE Lopez) Cigarette nicotine dependence Major depressive disorder, single episode, in full remission Other group home (current) drug therapy Other schizophrenia Other stimulant dependence, uncomplicated Family History Denies family history of Diabetes CAD (coronary artery disease) Cancer Hypertension Stroke Social History Smoking and tobacco status: current every day smoker cigarettes [ Other cigarette details: 5 daily ] Quit status (tobacco): considering quitting Second hand smoke exposure: Yes Alcohol intake: former History of recent travel: No Physical Exam Const: COMMON NORMALS: no acute distress, patient oriented x3, healthy appearing, alert and well nourished EXAM LIMITATIONS: no altered mental status and no physical limitations GENERAL APPEARANCE: cooperative, well kempt, well developed and well hydrated; not anxious NUTRITIONAL APPEARANCE: overweight ORIENTATION/CONSCIOUSNESS: Yes awake, Yes oriented to person, Yes oriented to place and Yes oriented to time HENMT: COMMON NORMALS: normocephalic, atraumatic, EAC's normal, Normal external nose present and moist oral mucous membranes HEAD & SCALP: normal to inspection, normocephalic and atraumatic FACE & SINUS: normal facial exam and face symmetric NOSE: Normal external nose present EXTERNAL AUDITORY CANAL: EAC's normal Eye: COMMON NORMALS: Equal, round and reactive pupils present and EOMs intact bilaterally GENERAL EYE: appearance normal, both eyes and all related structures PUPIL: Yes Equal, round and reactive pupils present Neck/C-Spine: COMMON NORMALS: full ROM and no lymphadenopathy GENERAL: Yes normal visual inspection and Yes trachea midline CERVICAL SPINE: Yes cervical ROM normal Lymph: LYMPHATIC: no lymphadenopathy noted Chest: COMMONS NORMALS: normal inspection of the chest and normal palpation of entire chest wall Resp: COMMON NORMALS: normal respiratory effort, No retractions, No use of accessory muscles and clear to auscultation bilaterally EFFORT & INSPECTION: Yes able to speak in complete sentences AUSCULTATION: clear to auscultation bilaterally, no wheezes and lung sounds not diminished Cardio: COMMON NORMALS: regular rate, regular rhythm, S1 normal heart sound present, S2 normal heart sound present and Peripheral pulses 2+ throughout RATE: regular rate RHYTHM: regular rhythm HEART SOUNDS: S1 normal heart sound present and S2 normal heart sound present PERIPHERAL PULSES: Peripheral pulses 2+ throughout GI: COMMON NORMALS: Normal to inspection, nondistended, normoactive bowel sounds present, Soft to palpation and non-tender INSPECTION: Yes normal to inspection and Yes central obesity AUSCULTATION: Yes normoactive bowel sounds PALPATION: Yes Soft to palpation : COMMON NORMALS: Yes no CVA tenderness BLADDER/KIDNEY EXAM: Yes no CVA tenderness Back/Pelvis: COMMON NORMALS: no CVA tenderness, thoracic and lumbar spine normal to inspection, no thoracic nor lumbar tenderness, thoraco-lumbar ROM normal and straight leg raise negative bilaterally BACK IMAGE (FEMALE): 1. area of erythema, contusion, pain Extremity: COMMON NORMALS: normal to inspection, full ROM, capillary refill normal, no clubbing, cyanosis or edema, no calf tenderness and no pedal edema GENERAL: Yes normal exam except as noted Neuro: COMMON NORMALS: patient oriented x3 and no focal motor deficits SENSORIUM/ORIENTATION: Yes alert, Yes oriented to person, Yes oriented to place and Yes oriented to time SPEECH: speech normal GAIT: Yes Normal gait present Psych: COMMON NORMALS: mental status grossly normal, Normal thought process present, cooperative and speech normal APPEARANCE: Yes well kempt ATTITUDE: Yes calm ACTIVITY/MOTOR BEHAVIOR: Yes appropriate eye contact SPEECH: Yes normal speech THOUGHT PROCESS: Normal thought process present INSIGHT: Good insight present (Psych) JUDGEMENT: Good judgement present (Psych) Skin: COMMON NORMALS: no rashes or lesions noted and turgor normal GENERAL SKIN EXAM: no rashes or lesions noted and turgor normal Course Vital Signs: Vital signs: Vital Signs Temperature 97.8 F 09/01/20 16:55 Pulse Rate 110 H 09/01/20 16:55 Respiratory Rate 20 H 09/01/20 16:55 Blood Pressure 141/76 09/01/20 16:55 Pulse Oximetry 96 09/01/20 16:55 MDM - Fall Imaging Data^: Xray Ortho: Radiologist's impression: [address] [address] XRay Report Signed Patient: Hilda Nolan V Unit #: [id number] : 1965 Age/Sex: 55 / F ADM Date: 09/01/20 Loc: ER Room/Bed: Attending Dr: Ordering Provider/Ordering MD: aMrcela Delcid Date of Service: 09/01/20 Procedure(s): XR sacroiliac jts m 3V 72136 Accession Number(s): [id number] Report Number: [id number] PROCEDURE INFORMATION: Exam: XR Bilateral Sacroiliac Joints, 3 or More Views Exam date and time: 09/01/2020 5:54 PM Age: 55 years old Clinical indication: Injury or trauma; Fall; Blunt trauma (contusions or hematomas); Patient HX: PT slipped in shower and hit lower back. Pain in lower back; Additional info: Fall, RT sacral pain TECHNIQUE: Imaging protocol: XR Bilateral XR of the sacroiliac joints, 3 or more views. COMPARISON: CT abdomen pelvis w con* [id number] 11/23/2019 5:32 PM FINDINGS: Bones/joints: The bones are intact and in normal alignment. Prominent ossifications in the bilateral ischial tuberosities, likely indicating chronic apophysitis. Soft tissues: Normal. Gastrointestinal tract: Large amount of stool in the distal colon. Vasculature: Multiple calcified phleboliths and small fibroids in the pelvis. XR/XR sacroiliac jts m 3V [id number] IMPRESSION: No acute findings. Dictated By: Willie Kruger Signed By: Willie Kruger Signed Date/Time: 09/01/201849 DD/ 47 Discharge Plan Discharge Patient Disposition: Home Clinical Impression: Fall against object Contusion of sacrum Qualifiers: Encounter type: initial encounter Qualified Code(s): S30.0XXA - Contusion of lower back and pelvis, initial encounter Condition: Stable Prescriptions: No Action alprazolam [Xanax] 0.5 mg tablet 0.5 mg PO BID Qty: 60 RF: 5 mirtazapine 45 mg tablet 45 mg PO BEDTIME Qty: 30 RF: 5 clozapine 50 mg tablet 50 mg PO .qhs Qty: 30 RF: 11 clozapine 100 mg tablet See Rx Instructions PO .COMPLEX Qty: 120 RF: 11 meloxicam 7.5 mg tablet 7.5 mg PO BID RF: 0 Hold Instructions: Resume on 05/01/20. montelukast [Singulair] 10 mg tablet 10 mg PO DAILY RF: 0 Dexilant 60 mg capsule,biphase delayed releas 60 mg PO DAILY RF: 0 prednisone 20 mg tablet 40 mg PO DAILY 5 Days Qty: 10 RF: 0 azithromycin 250 mg tablet See Rx Instructions PO .COMPLEX Qty: 6 RF: 0 citalopram 20 mg tablet 20 mg PO DAILY 30 Days Qty: 30 RF: 5 Flonase Allergy Relief nasal spray syringe 2 spray NOSTRIL-B DAILY RF: 0 Ventolin HFA aerosol 2 puff inhalation Q4H PRN (Reason: Shortness Of Breath) RF: 0 Tylenol Extra Strength 500 mg tablet 500 mg PO Q6H PRN (Reason: fever or pain) Qty: 60 RF: 0 docusate sodium 100 mg capsule 100 mg PO BID PRN (Reason: Constipation) RF: 0 oxybutynin chloride 15 mg Tablet Extended Release 24hr 15 mg PO DAILY RF: 0 gabapentin 100 mg Capsule 100 mg PO BID 30 Days Qty: 60 RF: 1 Celebrex 100 mg capsule 100 mg PO BID Qty: 10 RF: 0 Discharge Orders: Discharge ED (Routine); Ordered 09/01/20 Ordered By: Marcela Delcid Referrals: Grecia Kuhn MD [Primary Care Provider] - Discharge Diet: Usual diet Discharge Activity: Limit activity as instructed Patient Instructions: Contusion in Adults (ED), Fall Prevention (ED) Activity Restrictions/Additional Instructions: Return to the emergency department if you develop concerning symptoms Continue with ice alternate with warm moist heat to the affected area several times daily Continue home medications such as Klonopin, this will help with pain, continue extra strength Tylenol dosing as needed for pain, may apply [id number] pain medication such as Salonpas or other topical ointments to help with pain No twisting bending or lifting greater than 5 pounds until improved, follow-up with your primary care if not improved in the next 2 to 3 days. Coding Level of Care Code ED Freight Flagman for Krystin Fwd Exam Comprehensive
[2020-09-01] MEDS: orphenadrine 30 mg/mL Inj 2 mL 60 MG IM (18:57)
== END 2020-09-01 19:03 | disposition home or self-care (01) ==
PROVIDERS: Emergency Provider Nurse Practitioner Family; PCP Family Medicine
DX: S30.0XXA Contusion of lower back and pelvis, initial encounter (principal); W18.2XXA Fall in (into) shower or empty bathtub, initial encounter; Y93.E9 Activity, other interior property and clothing maintenance; Z79.52 Long term (current) use of systemic steroids; F17.210 Nicotine dependence, cigarettes, uncomplicated
CPT/HCPCS: 12345; 72202; 96372; 99281; 99283; J2360

== ENCOUNTER 2020-09-09 20:02 | Emergency (ER) | payer MEDICARE, MEDICAID, SELFPAY ==
[2020-09-09 20:14] VITALS: BP 125/65; PULSE 111; RESP 16; TEMP 36.7; O2SAT 97; BMI 33.5
--- NOTE | 2020-09-09 21:46 | W.ED.BACK ---
HPI - Back Pain/Injury General: Chief Complaint: Back Pain/Injury Stated Complaint: lower back, head pain, has taken night time meds Time Seen by Provider: 09/09/20 20:26 History of Present Illness: HPI Narrative: This pleasant lady said that her back pain is flaring up again and she would like a pain medicine. MD elicited complaint: back pain Pertinent past history: prior back pain Onset (ago): year(s) Timing: intermittent Severity: moderate Similar Symptoms Previously: Yes Quality: aching Location: lumbar spine and thoracic spine Radiation: none Exacerbating factors: sitting upright and walking Relieving factors: immobilization Associated symptoms: Reports no associated symptoms; Deny abdominal pain, chills, fever(s), nausea or vomiting Review of Systems Const: Denies: fever(s), chills or body aches Eyes: Denies: change in vision or blurry vision ENMT: Denies: throat pain or nasal congestion Card: Denies: chest pain or dyspnea on exertion Resp: Denies: dyspnea, productive cough or non-productive cough GI: Denies: abdominal pain, nausea or vomiting Musc: Reports: neck pain, back pain and joint pain; Denies: extremity pain Skin/Breast: Denies: rash Neuro: Denies: headache(s) Psych: Denies: anxiety or depression Trevon/Lymph: Denies: easy bruising PFSH ED PFSH: Medical History (Updated 09/09/20 @ 21:41 by YAEL Sebastian) Cigarette nicotine dependence Major depressive disorder, single episode, in full remission 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 Other schizophrenia Other stimulant dependence, uncomplicated Family History Denies family history of Diabetes CAD (coronary artery disease) Cancer Hypertension Stroke Social History Smoking and tobacco status: current every day smoker cigarettes [ Other cigarette details: 5 daily ] Quit status (tobacco): considering quitting Second hand smoke exposure: Yes Alcohol intake: former History of recent travel: No Physical Exam Const: COMMON NORMALS: no acute distress, average body habitus and patient oriented x3 HENMT: COMMON NORMALS: normocephalic HEAD & SCALP: normal to inspection and normocephalic FACE & SINUS: normal facial exam Eye: COMMON NORMALS: conjunctivae normal GENERAL EYE: appearance normal, both eyes and all related structures CONJUNCTIVA: Yes conjunctivae normal Neck/C-Spine: COMMON NORMALS: full ROM and no JVD GENERAL: Yes normal visual inspection CERVICAL SPINE: Yes cervical ROM normal, No cervical ROM abnormal and No Cervical spine tenderness Chest: COMMONS NORMALS: normal inspection of the chest Resp: COMMON NORMALS: normal respiratory effort and clear to auscultation bilaterally AUSCULTATION: clear to auscultation bilaterally Cardio: COMMON NORMALS: no JVD and regular rate RATE: regular rate Back/Pelvis: OTHER: Patient overreacts on the lumbar spine area tenderness exam does not really reveal consistent pain throughout that area patient ambulates without difficulty no swelling noted paraspinal muscles appear to be tender. No contractions. Extremity: COMMON NORMALS: normal to inspection and full ROM Neuro: COMMON NORMALS: patient oriented x3 Course Vital Signs: Vital signs: Vital Signs Temperature 98.1 F 09/09/20 20:14 Pulse Rate 111 H 09/09/20 20:14 Respiratory Rate 16 09/09/20 20:14 Blood Pressure 125/65 09/09/20 20:14 Pulse Oximetry 97 09/09/20 20:14 Discharge Plan Discharge Patient Disposition: Home Clinical Impression: Chronic back pain Qualifiers: Back pain location: thoracic back pain Back pain laterality: midline Qualified Code(s): M54.6 - Pain in thoracic spine Condition: Stable Prescriptions: New Robaxin-750 750 mg tablet 750 mg PO Q8H Qty: 7 RF: 0 No Action alprazolam [Xanax] 0.5 mg tablet 0.5 mg PO BID Qty: 60 RF: 5 mirtazapine 45 mg tablet 45 mg PO BEDTIME Qty: 30 RF: 5 meloxicam 7.5 mg tablet 7.5 mg PO BID RF: 0 Hold Instructions: Resume on 08/04/20. montelukast [Singulair] 10 mg tablet 10 mg PO DAILY RF: 0 Dexilant 60 mg capsule,biphase delayed releas 60 mg PO DAILY RF: 0 prednisone 20 mg tablet 40 mg PO DAILY 5 Days Qty: 10 RF: 0 azithromycin 250 mg tablet See Rx Instructions PO .COMPLEX Qty: 6 RF: 0 citalopram 20 mg tablet 20 mg PO DAILY 30 Days Qty: 30 RF: 5 clozapine 50 mg tablet 50 mg PO .qhs Qty: 30 RF: 11 clozapine 100 mg tablet See Rx Instructions PO .COMPLEX Qty: 120 RF: 11 Flonase Allergy Relief nasal spray syringe 2 spray NOSTRIL-B DAILY RF: 0 Ventolin HFA aerosol 2 puff inhalation Q4H PRN (Reason: Shortness Of Breath) RF: 0 Tylenol Extra Strength 500 mg tablet 500 mg PO Q6H PRN (Reason: fever or pain) Qty: 60 RF: 0 docusate sodium 100 mg capsule 100 mg PO BID PRN (Reason: Constipation) RF: 0 oxybutynin chloride 15 mg Tablet Extended Release 24hr 15 mg PO DAILY RF: 0 gabapentin 100 mg Capsule 100 mg PO BID 30 Days Qty: 60 RF: 1 Celebrex 100 mg capsule 100 mg PO BID Qty: 10 RF: 0 Discharge Orders: Discharge ED (Routine); Ordered 09/09/20 Ordered By: Jeremy Cortez Referrals: Grecia Kuhn MD [Primary Care Provider] - Discharge Diet: Usual diet Discharge Activity: Increase activity as tolerated Patient Instructions: Chronic Back Pain (ED), Opioid Safety Activity Restrictions/Additional Instructions: Follow-up with medical provider as directed. Take medications as prescribed. Return to the ER or your medical provider if condition worsens. Please read and understand discharge instructions. If any questions ask please. Follow-up your primary care provider soon as possible and get your back pain reevaluated and makes sure that on appropriate medications and therapy for your chronic back pain. Coding Level of Care Code ED Verification Engineer for 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
[2020-09-09 21:50] VITALS: BP 134/81; PULSE 82; RESP 16; O2SAT 99
[2020-09-09] MEDS: methocarbamol 750 mg Tablet PO (22:11)
[2020-09-09] MEDS: CELEcoxib 200 mg Capsule 400 MG PO (22:12)
== END 2020-09-09 22:14 | disposition home or self-care (01) ==
PROVIDERS: Emergency Provider Nurse Practitioner Family; PCP Family Medicine
DX: G89.29 Other chronic pain (principal); M54.6 Pain in thoracic spine; F17.210 Nicotine dependence, cigarettes, uncomplicated
CPT/HCPCS: 99283

== ENCOUNTER 2020-09-25 14:52 | Emergency (ER) | payer MEDICARE, MEDICAID, SELFPAY ==
[2020-09-25 14:57] VITALS: BP 133/84; PULSE 105; RESP 16; TEMP 36.9; O2SAT 97; BMI 25.6
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
== END 2020-09-25 15:34 | disposition home or self-care (01) ==
LOC: ER 15:33
PROVIDERS: Emergency Provider Family Medicine; PCP Family Medicine
DX: M79.7 Fibromyalgia (principal); F41.9 Anxiety disorder, unspecified; F17.210 Nicotine dependence, cigarettes, uncomplicated
CPT/HCPCS: 99282

== ENCOUNTER → 2020-09-30 07:22 | Outpatient (BNVA) | payer MEDICARE, MEDICAID, SELFPAY | PROVIDERS: PCP Family Medicine; Visit Provider Psychiatry & Neurology Psychiatry | DX: F20.89 Other schizophrenia (principal); F32.5 Major depressive disorder, single episode, in full remission; F17.210 Nicotine dependence, cigarettes, uncomplicated | CPT/HCPCS: 99214 ==

== ENCOUNTER 2020-10-05 16:22 | Emergency (ER) | payer MEDICARE, MEDICAID, SELFPAY ==
[2020-10-05 17:17] VITALS: BP 124/84; PULSE 99; RESP 18; TEMP 36.6; O2SAT 96; BMI 34.4
--- NOTE | 2020-10-05 18:02 | ED_ITS ---
HPI - General Adult General: Chief complaint: General Medical Stated complaint: L RIB PAIN Time Seen by Provider: 10/05/20 17:57 Source: patient, family and RN notes reviewed Limitations: no limitations History of Present Illness: HPI narrative: This patient is a 55-year-old female presents to the emergency department Requesting pain medication. Patient states that she was seen by her primary care physician at her primary care physician refuse throughout her any narcotic pain medication. Patient requested 5 day prescription of tramadol or some other pain medication. Patient states her PCP refused to give her any additional pain medications and has referred her to pain management. This patient does not appear to be in acute pain. Onset (ago): day(s) (5) Pain Consistency: intermittent Associated symptoms: Deny chest pain, dyspnea, headache(s), nausea, rash, palpitations or vomiting Review of Systems General: Reports: 10 or more systems reviewed and unremarkable except in HPI and below Const: Denies: fever(s), chills, body aches or fatigue Eyes: Denies: change in vision or blurry vision ENMT: Denies: throat pain, hoarseness or mouth pain Card: Denies: chest pain or palpitations Resp: Denies: dyspnea GI: Denies: nausea or vomiting : Reports: flank pain; Denies: difficulty voiding, dysuria, urinary frequency, urinary urgency or urinary hesitancy Musc: Denies: neck pain, back pain, extremity pain, extremity swelling, joint pain, joint swelling, joint redness, joint warmth or limited range of motion Skin/Breast: Denies: rash Neuro: Denies: headache(s) Psych: Denies: anxiety or depression PFS ED PFSH: Medical History (Updated 10/05/20 @ 18:09 by Ramirez Moss MD) Cigarette nicotine dependence Major depressive disorder, single episode, in full remission 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 Other schizophrenia Other stimulant dependence, uncomplicated Family History Denies family history of Diabetes CAD (coronary artery disease) Cancer Hypertension Stroke Social History Smoking and tobacco status: current every day smoker cigarettes [ Other cigarette details: 5 daily ] Quit status (tobacco): considering quitting Second hand smoke exposure: Yes Alcohol intake: former History of recent travel: No Physical Exam Const: COMMON NORMALS: no acute distress, average body habitus, patient oriented x3, no limitations, healthy appearing, alert and well nourished HENMT: COMMON NORMALS: normocephalic, atraumatic, external ears normal, EAC's normal, TM's normal bilaterally, Normal external nose present and Normal nasal mucous membranes and turbinates present HEAD & SCALP: normocephalic and atraumatic NOSE: Normal external nose present and Normal nasal mucous membranes and turbinates present EXTERNAL EAR: Yes external ears normal EXTERNAL AUDITORY CANAL: EAC's normal TYMPANIC MEMBRANE: TM's normal bilaterally Neck/C-Spine: COMMON NORMALS: full ROM, no lymphadenopathy, supple, no meningeal signs, no JVD, Thyroid normal and No carotid bruits THYROID: Thyroid normal Chest: COMMONS NORMALS: normal inspection of the chest, normal palpation of entire chest wall, normal inspection of the breasts and normal palpation of the breasts Breast/axilla inspection: Yes normal inspection of the breasts BREAST/AXILLA PALPATION: Yes normal palpation of the breasts Resp: COMMON NORMALS: normal respiratory effort, No retractions, No use of accessory muscles, clear to auscultation bilaterally and percussion normal AUSCULTATION: clear to auscultation bilaterally PERCUSSION: percussion normal Cardio: COMMON NORMALS: no JVD, regular rate, regular rhythm, S1 normal heart sound present, S2 normal heart sound present, No gallops present (Cardio), No clicks present (Cardio), No murmurs present (Cardio), No rub (Cardio) and Peripheral pulses 2+ throughout RATE: regular rate RHYTHM: regular rhythm HEART SOUNDS: S1 normal heart sound present and S2 normal heart sound present PERIPHERAL PULSES: Peripheral pulses 2+ throughout GI: COMMON NORMALS: Normal to inspection, nondistended, normoactive bowel sounds present, Soft to palpation, non-tender, No hepatosplenomegaly present, no masses and no bruits PALPATION: Yes Soft to palpation and Yes No hepatosplenomegaly present Back/Pelvis: COMMON NORMALS: thoracic and lumbar spine normal to inspection, no thoracic nor lumbar tenderness, thoraco-lumbar ROM normal and straight leg raise negative bilaterally Extremity: COMMON NORMALS: normal to inspection, full ROM, capillary refill normal, no joint enlargement, no clubbing, cyanosis or edema, no calf tenderness and no pedal edema Neuro: COMMON NORMALS: patient oriented x3 SENSORIUM/ORIENTATION: Yes alert MENINGEAL SIGNS: Yes no meningeal signs Course ED course: Patient is here for medical screening exam requesting pain medication. Patient's PCP refused to give her any new prescriptions and has referred her to pain management. Advised patient elected not it will not write her any narcotic pain medication and advised the patient to continue with medications as prescribed by her PCP. This patient does not appear to be in acute pain in his visit appears to be nonemergent. Nurse was present during history and physical this patient. Vital Signs: Vital signs: Vital Signs Temperature 97.8 F 10/05/20 17:17 Pulse Rate 99 10/05/20 17:17 Respiratory Rate 18 10/05/20 17:17 Blood Pressure 124/84 10/05/20 17:17 Pulse Oximetry 96 10/05/20 17:17 Discharge Plan Discharge Patient Disposition: Home Clinical Impression: Encounter for medical screening examination, Chronic pain Condition: Stable Prescriptions: No Action alprazolam [Xanax] 0.5 mg tablet 0.5 mg PO BID Qty: 60 RF: 5 mirtazapine 45 mg tablet 45 mg PO BEDTIME Qty: 30 RF: 5 meloxicam 7.5 mg tablet 7.5 mg PO BID RF: 0 Hold Instructions: Resume on 08/04/20. montelukast [Singulair] 10 mg tablet 10 mg PO DAILY RF: 0 Dexilant 60 mg capsule,biphase delayed releas 60 mg PO DAILY RF: 0 prednisone 20 mg tablet 40 mg PO DAILY 5 Days Qty: 10 RF: 0 azithromycin 250 mg tablet See Rx Instructions PO .COMPLEX Qty: 6 RF: 0 Chantix Continuing Month Box 1 mg tablet 1 mg PO BID Qty: 56 RF: 0 Chantix Starting Month Box 0.5 mg (11)- 1 mg (42) tablets,dose pack See Rx Instructions PO PER PKG DIR Qty: 53 RF: 0 nicotine (polacrilex) 4 mg lozenge 4 mg buccal Q3H PRN (Reason: nicotine cravings) Qty: 96 RF: 0 citalopram 20 mg tablet 20 mg PO DAILY 30 Days Qty: 30 RF: 5 clozapine 50 mg tablet 50 mg PO .qhs Qty: 30 RF: 11 clozapine 100 mg tablet See Rx Instructions PO .COMPLEX Qty: 120 RF: 11 Flonase Allergy Relief nasal spray syringe 2 spray NOSTRIL-B DAILY RF: 0 Ventolin HFA aerosol 2 puff inhalation Q4H PRN (Reason: Shortness Of Breath) RF: 0 Tylenol Extra Strength 500 mg tablet 500 mg PO Q6H PRN (Reason: fever or pain) Qty: 60 RF: 0 Robaxin-750 750 mg tablet 750 mg PO Q8H Qty: 7 RF: 0 docusate sodium 100 mg capsule 100 mg PO BID PRN (Reason: Constipation) RF: 0 oxybutynin chloride 15 mg Tablet Extended Release 24hr 15 mg PO DAILY RF: 0 gabapentin 100 mg Capsule 100 mg PO BID 30 Days Qty: 60 RF: 1 Celebrex 100 mg capsule 100 mg PO BID Qty: 10 RF: 0 Discharge Orders: Discharge ED (Routine); Ordered 10/05/20 Ordered By: Ramirez Moss Referrals: Grecia Kuhn MD [Primary Care Provider] - Discharge Diet: Advance as tolerated and Usual diet Discharge Activity: Resume usual activity Patient Instructions: Opioid Safety Activity Restrictions/Additional Instructions: Continue all your home medications. Follow-up with her primary care physician or your pain management provider for any pain medication request. 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
== END 2020-10-05 18:21 | disposition home or self-care (01) ==
PROVIDERS: Emergency Provider Emergency Medicine; PCP Family Medicine
DX: G89.29 Other chronic pain (principal); Z13.9 Encounter for screening, unspecified; F17.210 Nicotine dependence, cigarettes, uncomplicated
CPT/HCPCS: 99281

== ENCOUNTER → 2020-10-14 07:25 | Outpatient (BNVA) | payer MEDICARE, MEDICAID, SELFPAY | PROVIDERS: PCP Family Medicine; Visit Provider Psychiatry & Neurology Psychiatry | DX: F20.89 Other schizophrenia (principal); F32.5 Major depressive disorder, single episode, in full remission; F17.210 Nicotine dependence, cigarettes, uncomplicated; K11.7 Disturbances of salivary secretion | CPT/HCPCS: 99214 ==

== ENCOUNTER 2020-11-11 01:55 | Emergency (ER) | payer MEDICARE, MEDICAID, SELFPAY ==
--- NOTE | 2020-11-11 02:01 | ED_ITS ---
HPI - Abdominal Pain General: Chief Complaint: Abdominal Pain Stated Complaint: right pelvic pain Time Seen by Provider: 11/11/20 01:58 Source: patient and EMS Mode of arrival: EMS Limitations: no limitations History of Present Illness: HPI narrative: 55-year-old female states she been having lower abdominal pain over the last 2 days. [facility] yesterday who thought she probably had a groin strain. States the pain worsened and rates it a 7 out of 10 currently. She denies any vomiting or diarrhea and denies any fever. She denies any worsening improving factors. MD elicited complaint: abdominal pain Associated Symptoms: Denies chills, dysuria and fever(s) Review of Systems Const: Denies: fever(s), chills, body aches or change in appetite Eyes: Denies: blurry vision or eye discomfort ENMT: Denies: throat pain or dental pain Card: Denies: chest pain Resp: Denies: dyspnea GI: Reports: abdominal pain : Denies: dysuria Musc: Denies: neck pain or back pain Skin/Breast: Denies: rash Neuro: Denies: headache(s) Psych: Denies: depression Trevon/Lymph: Denies: easy bruising All/Imm: Denies: urticaria PFSH ED PFSH: Medical History (Updated 11/11/20 @ 03:01 by Kade Smith MD) Chronic idiopathic pain syndrome Cigarette nicotine dependence GERD (gastroesophageal reflux disease) Major depressive disorder, single episode, in full remission Obesity (BMI 30.0-34.9) 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 Other schizophrenia Other stimulant dependence, uncomplicated Family History Denies family history of Diabetes CAD (coronary artery disease) Cancer Hypertension Stroke Social History Smoking and tobacco status: current every day smoker cigarettes [ Other cigarette details: 5 daily ] Quit status (tobacco): considering quitting Second hand smoke exposure: Yes Alcohol intake: former History of recent travel: No Physical Exam Const: COMMON NORMALS: no acute distress, patient oriented x3 and healthy appearing HENMT: COMMON NORMALS: normocephalic and atraumatic HEAD & SCALP: no rmocephalic and atraumatic Eye: COMMON NORMALS: Equal, round and reactive pupils present and EOMs intact bilaterally PUPIL: Yes Equal, round and reactive pupils present Neck/C-Spine: COMMON NORMALS: full ROM and supple Chest: COMMONS NORMALS: normal inspection of the chest and normal palpation of entire chest wall Resp: COMMON NORMALS: normal respiratory effort, No retractions, No use of accessory muscles and clear to auscultation bilaterally AUSCULTATION: clear to auscultation bilaterally Cardio: COMMON NORMALS: regular rate, regular rhythm and No murmurs present (Cardio) RATE: regular rate RHYTHM: regular rhythm GI: COMMON NORMALS: Normal to inspection, nondistended, normoactive bowel sounds present, Soft to palpation and no masses PALPATION: Yes Soft to palpation and Yes Tenderness to palpation present (GI) Details: RLQ Extremity: COMMON NORMALS: normal to inspection and full ROM Neuro: COMMON NORMALS: patient oriented x3, moves all extremities and no focal motor deficits Psych: COMMON NORMALS: mental status grossly normal, Normal thought process present and cooperative THOUGHT PROCESS: Normal thought process present Skin: COMMON NORMALS: no rashes or lesions noted and no wounds GENERAL SKIN EXAM: no rashes or lesions noted MDM - Abdominal Pain MDM Narrative: Medical decision making narrative: Hilda presents with right-sided abdominal pain is likely a muscle strain. Patient's CT scan here is normal and lab work is all normal as well. She is stable for discharge and is to follow-up with PCP and return if worsening. She understands agrees to plan. Lab Data: Labs: Lab Results 11/11/20 11/11/20 11/11/20 Range/Units 02:20 02:20 02:50 WBC 9.1 (4.0-10.0) 10^3/ uL RBC 4.05 L (4.1-5.3) 10^6/u L Hgb 11.8 (11.5-15.3) g/dL Hct 37.0 (37.0-47.0) % MCV 91.4 (81-99) fL MCH 29.1 (28.0-34.0) pg MCHC 31.9 (30.0-36.0) g/dL RDW 14.9 (12.1-15.1) % Plt Count 257 (130-400) 10^3/c mm MPV 9.6 (7.4-10.4) fL Neut % (Auto) 66.6 % Lymph % (Auto) 21.8 % [place] % (Auto) 10.5 % Eos % (Auto) 0.0 % Baso % (Auto) 0.4 % Neut # (Auto) 6.06 (1.8-7.7) 10^3/u L Lymph # (Auto) 2.0 (0.8-4.8) 10^3/u L [place] # (Auto) 1.0 H (0.2-0.9) 10^3/u L Eos # (Auto) 0.0 (0.0-0.8) 10^3/u L Baso # (Auto) 0.0 (0.0-0.1) 10^3/u L Nucleated RBC % (a uto) 0 % Nucleated RBCs # 0.0 /100WBC Sodium 136 (136-145) mmol/L Potassium 4.4 (3.5-5.1) mmol/L Chloride 101 (98-107) mmol/L Carbon Dioxide 29 (22-29) mmol/L Anion Gap 10.4 (5-19) BUN 11 (6-20) mg/dL Creatinine 0.6 (0.5-0.9) mg/dL GFR Calculation 103.4 (90-130) mL/min Glucose 164 H (65-115) mg/dL Calculated Osmolal ity 285 (285-295) mOsm/k g Calcium 8.6 (8.5-10.5) mg/dL Total Bilirubin 0.2 (0.15-1.2) mg/dL AST 24 (0-32) U/L ALT 22 (0-33) U/L Alkaline Phosphata se 113 H (35-105) IU/L Total Protein 6.3 L (6.6-8.7) g/dL Albumin 3.9 (3.5-5.2) g/dL Globulin 2.4 (1.3-4.6) g/dL Lipase 53 (13-60) U/L Urine Color Yellow (Yellow) Urine Appearance Clear (CLEAR) Urine pH 6.5 (5-7) Ur Specific Gravit y 1.005 (1.005-1.030) Urine Protein Neg (Negative) Urine Glucose (UA) Norm (Normal) Urine Ketones Negative (Negative) Urine Blood Neg (Negative) Urine Nitrate Negative (Negative) Urine Bilirubin Neg (Negative) Urine Urobilinogen Norm (Negative) mg/dL Ur Leukocyte Zaria ase 2+ H (Negative) Urine RBC 0-4 H (0-2) /hpf Urine WBC 10-15 H (0-5) /hpf Ur Squamous Epith Cells 10-15 H (0-5) /hpf Amorphous Sediment Not Reportable Urine Bacteria Trace (NONE) /hpf Urine Mucus 1+ /hpf Imaging Data ^: CT Abd/Pel: Attestation: I personally reviewed and interpreted this imaging study as follows: My impression: [facility] [place] [address] CT Scan Report Signed Patient: Hilda Nolan V Unit #: [id number] : 1965 Age/Sex: 55 / F ADM Date: 11/11 Loc: ER Room/Bed: Attending Dr: Ordering Provider/Ordering MD: Kade Smith MD Date of Service: 11/11/20 Procedure(s): CT abdomen pelvis w con* [id number] Accession Number(s): [id number] Report Number: [id number] PROCEDURE INFORMATION: Exam: CT Abdomen And Pelvis With Contrast Exam date and time: 11/11/2020 2:02 AM Age: 55 years old Clinical indication: Abdominal pain; Localized; Lower; Prior surgery; Surgery type: Tubal. ; Patient HX: Pelvic pain. History of cervical cancer. ; Additional info: Abd pain TECHNIQUE: Imaging protocol: Computed tomography of the abdomen and pelvis with contrast. Radiation optimization: All CT scans at this facility use at least one of these dose optimization techniques: automated exposure control; mA and/or kV adjustment per patient size (includes targeted exams where dose is matched to clinical indication); or iterative reconstruction. Contrast material: OMNI 300; Contrast volume: 95 ml; Contrast route: INTRAVENOUS (IV); COMPARISON: CT abdomen pelvis w con* [id number] 11/23/2019 5:32 PM RADIATION DOSE METRICS: Total DLP (mGy-cm): 1681.97 FINDINGS: Liver: There is hypoattenuation of the hepatic parenchyma compatible with fatty infiltration. Gallbladder and bile ducts: Common bile duct is mildly prominent measuring 9.4 mm in its midportion tapering to normal caliber near the ampulla. Pancreas: Normal. No ductal dilation. Spleen: Normal. No splenomegaly. Adrenal glands: Normal. No mass. Kidneys and ureters: Normal. No hydronephrosis. Stomach and bowel: Moderate stool is present within the colon. Appendix: The appendix is visualized and is normal in configuration. Intraperitoneal space: Unremarkable. No free air. No significant fluid collection. Vasculature: Unremarkable. No abdominal aortic aneurysm. Lymph nodes: Unremarkable. No enlarged lymph nodes. Urinary bladder: Unremarkable as visualized. Reproductive: Unremarkable as visualized. Bones/joints: Unremarkable. No acute fracture. Soft tissues: Unremarkable. CT/CT abdomen pelvis w con* [id number] IMPRESSION: 1. There are no acute abdominal findings. 2. Fatty infiltration of the liver 3. Moderate stool is present within the colon. 4. Mildly prominent common bile duct without evidence of choledocholithiasis or extrinsic masses. 5. Normal appendix 6. No evidence for ureteral obstruction Discharge Plan Discharge Patient Disposition: Home Clinical Impression: Abdominal pain Qualifiers: Abdominal location: unspecified location Qualified Code(s): R10.9 - Unspecified abdominal pain Condition: Stable Prescriptions: New Naprosyn 500 mg tablet 500 mg PO BID PRN (Reason: pain) Qty: 20 RF: 0 No Action alprazolam [Xanax] 0.5 mg tablet 0.5 mg PO BID Qty: 60 RF: 5 mirtazapine 45 mg tablet 45 mg PO BEDTIME Qty: 30 RF: 5 citalopram 20 mg tablet 20 mg PO DAILY 30 Days Qty: 30 RF: 5 benztropine 1 mg tablet 1 mg PO DAILY Qty: 30 RF: 5 budesonide-formoterol inhalation RF: 0 tramadol 50 mg tablet 50 mg PO BID MDD 2 PRN (Reason: pain) 30 Days Qty: 60 RF: 0 gabapentin 100 mg capsule 200 mg PO BID 30 Days Qty: 120 RF: 3 meloxicam 7.5 mg tablet 7.5 mg PO BID RF: 0 Hold Instructions: Resume on 08/04/20. montelukast [Singulair] 10 mg tablet 10 mg PO DAILY RF: 0 Dexilant 60 mg capsule,biphase delayed releas 60 mg PO DAILY RF: 0 clozapine 50 mg tablet 50 mg PO .qhs Qty: 30 RF: 11 clozapine 100 mg tablet See Rx Instructions PO .COMPLEX Qty: 120 RF: 11 Flonase Allergy Relief nasal spray syringe 2 spray NOSTRIL-B DAILY RF: 0 Ventolin HFA aerosol 2 puff inhalation Q4H PRN (Reason: Shortness Of Breath) RF: 0 Tylenol Extra Strength 500 mg tablet 500 mg PO Q6H PRN (Reason: fever or pain) Qty: 60 RF: 0 docusate sodium 100 mg capsule 100 mg PO BID PRN (Reason: Constipation) RF: 0 oxybutynin chloride 15 mg Tablet Extended Release 24hr 15 mg PO DAILY RF: 0 Discharge Orders: Discharge ED (Routine); Ordered 11/11/20 Ordered By: Kade Smith Referrals: Evans Olvera MD [Primary Care Provider] - 1-3 days Discharge Diet: Advance as tolerated Discharge Activity: Resume usual activity Patient Instructions: Abdominal Pain (ED) Coding Level of Care Code ED Anesthesia Attending for Chg Fwd Exam Comprehensive
[2020-11-11 02:08] VITALS: BMI 38.4
[2020-11-11] MEDS: iohexol 300 mg/mL 100 mL Btl IV (02:18)
[2020-11-11 02:31] LABS: Basophils % 0.4 %; Hemoglobin 11.8 g/dL (11.5-15.3); Lymphocytes % 21.8 %; Mean Corpuscular HGB Conc 31.9 g/dL (30.0-36.0); Mean Corpuscular Hemoglobin 29.1 pg (28.0-34.0); Mean Corpuscular Volume 91.4 fL (81-99); Mean Platelet Volume 9.6 fL (7.4-10.4); Monocytes % 10.5 %; Neutrophils # 6.06 10^3/uL (1.8-7.7); Neutrophils % 66.6 %; Nucleated Red Blood Cells % 0 %; Platelet Count 257 10^3/cmm (130-400); Red Blood Count 4.05 10^6/uL (4.1-5.3); Red Cell Distribution Width 14.9 % (12.1-15.1); White Blood Count 9.1 10^3/uL (4.0-10.0)
[2020-11-11 02:50] LABS: Alanine Aminotransferase 22 U/L (0-33); Albumin Level 3.9 g/dL (3.5-5.2); Alkaline Phosphatase 113 IU/L (35-105); Blood Urea Nitrogen 11 mg/dL (6-20); Calcium 8.6 mg/dL (8.5-10.5); Carbon Dioxide 29 mmol/L (22-29); Chloride 101 mmol/L (98-107); Globulin 2.4 g/dL (1.3-4.6); Glomerular Filtration Rate 103.4 mL/min (90-130); Glucose 164 mg/dL (65-115); Lipase 53 U/L (13-60); Osmolality Calculated 285 mOsm/kg (285-295); Sodium 136 mmol/L (136-145); Total Bilirubin 0.2 mg/dL (0.15-1.2); Total Protein 6.3 g/dL (6.6-8.7)
[2020-11-11 02:51] LABS: Anion Gap 10.4 (5-19); Aspartate Amino Transferase 24 U/L (0-32); Potassium 4.4 mmol/L (3.5-5.1)
[2020-11-11] MEDS: ketorolac 30 mg/mL INJ 15 MG IVP (03:01)
[2020-11-11 03:11] LABS: Add Urine Microscopic? YES; Bilirubin Urine Neg (Negative); Blood Urine Neg (Negative); Glucose Urine UA Norm (Normal); Ketones Urine Negative (Negative); Leukocyte Esterase Urine 2+ (Negative); Nitrate Urine Negative (Negative); Protein Urine Neg (Negative); Specific Gravity, Urine 1.005 (1.005-1.030); Urine Appearance Clear (CLEAR); Urine Color Yellow (Yellow); Urobilinogen Urine Norm (Negative); pH Urine 6.5 (5-7)
[2020-11-11 03:12] LABS: Bacteria Urine TRACE /hpf; Mucus Urine 1+ /hpf; RBC Urine 0-4 /hpf (0-2)
[2020-11-11 03:13] LABS: Add Urine Culture? No
[2020-11-11 03:33] VITALS: BP 124/91; PULSE 96; O2SAT 96
== END 2020-11-11 03:33 | disposition home or self-care (01) ==
PROVIDERS: Emergency Provider Emergency Medicine; PCP Family Medicine Adult Medicine
DX: R10.9 Unspecified abdominal pain (principal); F17.210 Nicotine dependence, cigarettes, uncomplicated
CPT/HCPCS: 74177; 80053; 81001; 83690; 85025; 96374; 99283; J1885; Q9967

== ENCOUNTER 2020-11-12 06:20 | Emergency (ER) | payer MEDICARE, MEDICAID, SELFPAY ==
[2020-11-12 06:21] VITALS: BP 134/90; PULSE 95; RESP 16; TEMP 36.5; O2SAT 99; BMI 34.9
--- NOTE | 2020-11-12 06:40 | ED_ITS ---
HPI - Abdominal Pain General: Chief Complaint: Abdominal Pain Stated Complaint: side pain Time Seen by Provider: 11/12/20 06:24 History of Present Illness: HPI narrative: 55-year-old female presents emergency room complaining of right-sided abdominal pain. She was seen yesterday CT of the abdomen was negative lab work was unremarkable. Nurses triage note reviewed. Patient denies dysuria but has frequency of urination. MD elicited complaint: abdominal pain Onset (ago): day(s) Pain Consistency: constant Location: R flank Severity: moderate Quality: cramping Radiation: none Exacerbating factors: nothing Relieving factors: nothing Associated Symptoms: Denies anorexia, belching, bloating, change in bowel habits, change in stool character, chills, coffee ground emesis, constipation, GI cramping, diarrhea, dyspepsia, dysuria, excessive flatus, fever(s), heartburn, hematochezia, hematuria, hematemesis, fecal incontinence, loose stools, melena, nausea, poor appetite, syncope and vomiting Treatments prior to arrival: NSAIDs Review of Systems Const: Denies: fever(s) or chills ENMT: Denies: throat pain, ear or mastoid pain, nasal discharge or nasal congestion Card: Denies: syncope Resp: Denies: dyspnea, productive cough or non-productive cough GI: Denies: nausea, vomiting, hematemesis, coffee ground emesis, heartburn, diarrhea, constipation, bloating, GI cramping, belching, excessive flatus, fecal incontinence, change in bowel habits, change in stool character, hematochezia or melena : Denies: dysuria or hematuria Skin/Breast: Denies: rash or pruritus PFSH ED PFSH: Medical History Chronic idiopathic pain syndrome Cigarette nicotine dependence GERD (gastroesophageal reflux disease) Major depressive disorder, single episode, in full remission Obesity (BMI 30.0-34.9) 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 Other schizophrenia Other stimulant dependence, uncomplicated Family History Denies family history of Diabetes CAD (coronary artery disease) Cancer Hypertension Stroke Social History Smoking and tobacco status: current every day smoker cigarettes [ Other cigarette details: 5 daily ] Quit status (tobacco): considering quitting Second hand smoke exposure: Yes Alcohol intake: former History of recent travel: No Physical Exam Const: COMMON NORMALS: no acute distress GENERAL APPEARANCE: cooperative and comfortable ORIENTATION/CONSCIOUSNESS: Yes awake, Yes oriented to person, Yes oriented to place and Yes oriented to time HENMT: COMMON NORMALS: normocephalic, atraumatic and hearing grossly normal bilaterally HEAD & SCALP: normocephalic and atraumatic Eye: COMMON NORMALS: Equal, round and reactive pupils present, EOMs intact bilaterally, conjunctivae normal and no scleral icterus CONJUNCTIVA: Yes conjunctivae normal PUPIL: Yes Equal, round and reactive pupils present Neck/C-Spine: COMMON NORMALS: no JVD Resp: COMMON NORMALS: normal respiratory effort, No retractions, No use of accessory muscles and clear to auscultation bilaterally AUSCULTATION: clear to auscultation bilaterally Cardio: COMMON NORMALS: no JVD, regular rate, regular rhythm and No murmurs present (Cardio) RATE: regular rate RHYTHM: regular rhythm GI: COMMON NORMALS: Soft to palpation and No hepatosplenomegaly present AUSCULTATION: Yes normoactive bowel sounds PALPATION: Yes Soft to palpation, No Tenderness to palpation present (GI), No Guarding due to palpation present (GI) and Yes No hepatosplenomegaly present Extremity: COMMON NORMALS: normal to inspection, capillary refill normal, no clubbing, cyanosis or edema, no calf tenderness and no pedal edema Neuro: SENSORIUM/ORIENTATION: Yes oriented to person, Yes oriented to place and Yes oriented to time Skin: COMMON NORMALS: no rashes or lesions noted GENERAL SKIN EXAM: no rashes or lesions noted Course Vital Signs: Vital signs: Vital Signs Temperature 97.7 F 11/12/20 06:21 Pulse Rate 95 11/12/20 08:24 Respiratory Rate 16 11/12/20 06:21 Blood Pressure 127/78 11/12/20 08:24 Pulse Oximetry 93 11/12/20 08:24 MDM - Abdominal Pain MDM Narrative: Medical decision making narrative: Chronic abdominal pain is an ongoing problem patient has not been taking anything for it he constantly requesting narcotics. I think this is appropriate recommend that she use Tylenol start [id number] Pepcid or Prilosec and will refer her to PCP for endoscopy Lab Data: Labs: Lab Results 11/12/20 11/12/20 11/12/20 Range/Units 06:50 06:50 07:27 WBC 7.4 (4.0-10.0) 10^3/ uL RBC 4.19 (4.1-5.3) 10^6/u L Hgb 12.1 (11.5-15.3) g/dL Hct 38.1 (37.0-47.0) % MCV 90.9 (81-99) fL MCH 28.9 (28.0-34.0) pg MCHC 31.8 (30.0-36.0) g/dL RDW 15.0 (12.1-15.1) % Plt Count 243 (130-400) 10^3/c mm MPV 9.4 (7.4-10.4) fL Neut % (Auto) 65.0 % Lymph % (Auto) 23.9 % [place] % (Auto) 10.0 % Eos % (Auto) 0.1 % Baso % (Auto) 0.3 % Neut # (Auto) 4.82 (1.8-7.7) 10^3/u L Lymph # (Auto) 1.8 (0.8-4.8) 10^3/u L [place] # (Auto) 0.7 (0.2-0.9) 10^3/u L Eos # (Auto) 0.0 (0.0-0.8) 10^3/u L Baso # (Auto) 0.0 (0.0-0.1) 10^3/u L Nucleated RBC % (a uto) 0 % Nucleated RBCs # 0.0 /100WBC Sodium 139 (136-145) mmol/L Potassium 4.4 (3.5-5.1) mmol/L Chloride 102 (98-107) mmol/L Carbon Dioxide 29 (22-29) mmol/L Anion Gap 12.4 (5-19) BUN 13 (6-20) mg/dL Creatinine 0.6 (0.5-0.9) mg/dL GFR Calculation 103.4 (90-130) mL/min Glucose 146 H (65-115) mg/dL Calculated Osmolal ity 291 (285-295) mOsm/k g Calcium 8.6 (8.5-10.5) mg/dL Total Bilirubin 0.2 (0.15-1.2) mg/dL AST 15 (0-32) U/L ALT 24 (0-33) U/L Alkaline Phosphata se 113 H (35-105) IU/L Total Protein 6.7 (6.6-8.7) g/dL Albumin 4.1 (3.5-5.2) g/dL Globulin 2.6 (1.3-4.6) g/dL Lipase 44 (13-60) U/L Urine Color Yellow (Yellow) Urine Appearance Clear (CLEAR) Urine pH 6 (5-7) Ur Specific Gravit y 1.010 (1.005-1.030) Urine Protein Neg (Negative) Urine Glucose (UA) Norm (Normal) Urine Ketones Negative (Negative) Urine Blood Neg (Negative) Urine Nitrate Negative (Negative) Urine Bilirubin Neg (Negative) Urine Urobilinogen Norm (Negative) mg/dL Ur Leukocyte Zaria ase Negative (Negative) Discharge Plan Discharge Patient Disposition: Home Clinical Impression: Chronic abdominal pain Condition: Stable Prescriptions: New acetaminophen 325 mg capsule 650 mg PO Q4H Qty: 90 RF: 0 No Action budesonide-formoterol 2 puff inhalation BID@ RF: 0 tramadol 50 mg tablet 50 mg PO BID MDD 2 PRN (Reason: pain) 30 Days Qty: 60 RF: 0 montelukast [Singulair] 10 mg tablet 10 mg PO DAILY@729 RF: 0 Dexilant 60 mg capsule,biphase delayed releas 60 mg PO DAILY@729 RF: 0 clozapine 100 mg tablet See Rx Instructions PO .COMPLEX Qty: 120 RF: 11 Flonase Allergy Relief nasal spray syringe 2 spray NOSTRIL-B DAILY@729 RF: 0 Ventolin HFA aerosol 2 puff inhalation Q4H PRN (Reason: Shortness Of Breath) RF: 0 meloxicam 15 mg tablet 15 mg PO BID@ RF: 0 Xanax 0.5 mg tablet 0.5 mg PO BID@ RF: 0 citalopram 20 mg tablet 20 mg PO DAILY@729 RF: 0 benztropine 1 mg tablet 1 mg PO DAILY@729 RF: 0 mirtazapine 45 mg tablet 45 mg PO BEDTIME@1999 RF: 0 gabapentin 100 mg capsule 100 mg PO BID@ RF: 0 docusate sodium 100 mg capsule 100 mg PO BID PRN (Reason: Constipation) RF: 0 oxybutynin chloride 15 mg Tablet Extended Release 24hr 15 mg PO DAILY@729 RF: 0 Discharge Orders: Discharge ED (Routine); Ordered 11/12/20 Ordered By: Cesar Neil Referrals: Evans Olvera MD [Primary Care Provider] - Discharge Diet: Usual diet Discharge Activity: Increase activity as tolerated Patient Instructions: Abdominal Pain (ED), Opioid Safety Activity Restrictions/Additional Instructions: Recommend you follow-up with your primary care doctor within the week. Coding Level of Care Code ED Carpenter Supervisor Wooden Ship for Chg Fwd Exam Comprehensive
[2020-11-12 06:58] LABS: Basophils % 0.3 %; Eosinophils % 0.1 %; Hematocrit 38.1 % (37.0-47.0); Hemoglobin 12.1 g/dL (11.5-15.3); Lymphocytes # 1.8 10^3/uL (0.8-4.8); Lymphocytes % 23.9 %; Mean Corpuscular HGB Conc 31.8 g/dL (30.0-36.0); Mean Corpuscular Hemoglobin 28.9 pg (28.0-34.0); Mean Corpuscular Volume 90.9 fL (81-99); Mean Platelet Volume 9.4 fL (7.4-10.4); Monocytes # 0.7 10^3/uL (0.2-0.9); Neutrophils # 4.82 10^3/uL (1.8-7.7); Nucleated Red Blood Cells % 0 %; Platelet Count 243 10^3/cmm (130-400); Red Blood Count 4.19 10^6/uL (4.1-5.3); White Blood Count 7.4 10^3/uL (4.0-10.0)
[2020-11-12] MEDS: ondansetron 2 mg/ML SDV 2 mL 4 MG IVP (07:08)
[2020-11-12] MEDS: ketorolac 30 mg/mL INJ IVP (07:08)
[2020-11-12] MEDS: sodium chloride 0.9% 1,000 ML 999 ML IV (07:09)
[2020-11-12 07:12] VITALS: O2SAT 95
[2020-11-12 07:14] LABS: Alanine Aminotransferase 24 U/L (0-33); Albumin Level 4.1 g/dL (3.5-5.2); Alkaline Phosphatase 113 IU/L (35-105); Anion Gap 12.4 (5-19); Aspartate Amino Transferase 15 U/L (0-32); Blood Urea Nitrogen 13 mg/dL (6-20); Calcium 8.6 mg/dL (8.5-10.5); Carbon Dioxide 29 mmol/L (22-29); Chloride 102 mmol/L (98-107); Globulin 2.6 g/dL (1.3-4.6); Glomerular Filtration Rate 103.4 mL/min (90-130); Glucose 146 mg/dL (65-115); Lipase 44 U/L (13-60); Osmolality Calculated 291 mOsm/kg (285-295); Potassium 4.4 mmol/L (3.5-5.1); Sodium 139 mmol/L (136-145); Total Bilirubin 0.2 mg/dL (0.15-1.2); Total Protein 6.7 g/dL (6.6-8.7)
[2020-11-12 07:28] VITALS: PULSE 95; O2SAT 94
[2020-11-12 07:32] VITALS: BP 113/68
[2020-11-12 07:34] LABS: Add Urine Microscopic? NO; Charge for UA Resulting for Rev
[2020-11-12 07:56] LABS: Bilirubin Urine Neg (Negative); Blood Urine Neg (Negative); Glucose Urine UA Norm (Normal); Ketones Urine Negative (Negative); Leukocyte Esterase Urine Negative (Negative); Nitrate Urine Negative (Negative); Protein Urine Neg (Negative); Urine Appearance Clear (CLEAR); Urine Color Yellow (Yellow); Urobilinogen Urine Norm (Negative); pH Urine 6 (5-7)
[2020-11-12 08:24] VITALS: BP 127/78; PULSE 95; O2SAT 93
== END 2020-11-12 08:30 | disposition home or self-care (01) ==
PROVIDERS: Emergency Provider Family Medicine; PCP Family Medicine Adult Medicine
DX: G89.29 Other chronic pain (principal); R10.9 Unspecified abdominal pain; F17.210 Nicotine dependence, cigarettes, uncomplicated
CPT/HCPCS: 80053; 81003; 83605; 83690; 85025; 96361; 96374; 96375; 99214; 99282; 99284; J1885; J2405; J7030

== ENCOUNTER → 2020-11-12 07:24 | Outpatient (BNVA) | payer MEDICARE, MEDICAID, SELFPAY | PROVIDERS: PCP Family Medicine Adult Medicine; Visit Provider Psychiatry & Neurology Psychiatry | DX: F20.89 Other schizophrenia (principal); F32.5 Major depressive disorder, single episode, in full remission; F17.210 Nicotine dependence, cigarettes, uncomplicated | CPT/HCPCS: 99214 ==

== ENCOUNTER 2020-11-12 18:00 | Emergency (ER) | payer MEDICARE, MEDICAID, SELFPAY ==
[2020-11-12 18:07] VITALS: BP 142/73; PULSE 113; RESP 18; TEMP 37.1; O2SAT 96; BMI 34.9
[2020-11-12 19:07] VITALS: BP 137/98; PULSE 106; RESP 18; TEMP 36.6; O2SAT 91
--- NOTE | 2020-11-12 19:07 | W.ED.ABDPA2 ---
HPI - Abdominal Pain General: Chief Complaint: Shortness of Breath/Dyspnea Stated Complaint: STATES STILL IN SEVERE R SIDE PAIN/JUST DC THIS AM Time Seen by Provider: 11/12/20 18:53 Source: patient Mode of arrival: wheelchair Limitations: no limitations History of Present Illness: HPI narrative: Patient is a 55-year-old female who presents to ED today yet again for right sided abdominal pain. This makes patient's third visit since yesterday for this pain. She tells me pain initially began 5 days ago but has progressively worsened. She reports right flank pain radiating into the right side of her abdomen. She denies dysuria, frequency, urgency. She does report a decrease in urination. No fevers. Denies nausea, vomiting, diarrhea, constipation. Pain is worse with movement and walking. MD elicited complaint: abdominal pain Onset (ago): day(s) Pain Consistency: constant Location: RLQ and R flank Severity: severe Quality: stabbing and sharp Exacerbating factors: movement Relieving factors: nothing Associated Symptoms: Denies change in stool character, chills, diarrhea, dysuria, fever(s), nausea and vomiting Related Data: Patient : No Review of Systems Const: Denies: fever(s), chills, body aches, fatigue or malaise Card: Denies: chest pain Resp: Denies: dyspnea GI: Reports: abdominal pain; Denies: nausea, vomiting, diarrhea or change in stool character : Reports: flank pain; Denies: difficulty voiding, dysuria, urinary frequency, urinary urgency, urinary hesitancy, urinary incontinence or pelvic pain Musc: Reports: back pain (R flank); Denies: neck pain, extremity pain, extremity swelling, joint pain or joint swelling Skin/Breast: Denies: rash Neuro: Denies: headache(s) PFSH ED PFSH: Medical History Chronic idiopathic pain syndrome Cigarette nicotine dependence GERD (gastroesophageal reflux disease) Major depressive disorder, single episode, in full remission Obesity (BMI 30.0-34.9) 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 Other schizophrenia Other stimulant dependence, uncomplicated Family History Denies family history of Diabetes CAD (coronary artery disease) Cancer Hypertension Stroke Social History Smoking and tobacco status: current every day smoker cigarettes [ Other cigarette details: 5 daily ] Quit status (tobacco): considering quitting Second hand smoke exposure: Yes Alcohol intake: former History of recent travel: No Physical Exam Const: COMMON NORMALS: no acute distress, patient oriented x3, no limitations and alert GENERAL APPEARANCE: cooperative ORIENTATION/CONSCIOUSNESS: Yes awake, Yes oriented to person, Yes oriented to place and Yes oriented to time Chest: COMMONS NORMALS: normal inspection of the chest and normal palpation of entire chest wall Resp: COMMON NORMALS: normal respiratory effort and clear to auscultation bilaterally AUSCULTATION: clear to auscultation bilaterally Cardio: COMMON NORMALS: regular rate and regular rhythm RATE: regular rate RHYTHM: regular rhythm GI: COMMON NORMALS: Normal to inspection, nondistended, normoactive bowel sounds present and Soft to palpation INSPECTION: Yes central obesity AUSCULTATION: Yes normoactive bowel sounds PALPATION: Yes Soft to palpation and Yes Tenderness to palpation present (GI) (R lateral and R lower abdomen) : BLADDER/KIDNEY EXAM: Yes CVA tenderness Back/Pelvis: GENERAL BACK: Yes CVA tenderness CVA tenderness: right Extremity: COMMON NORMALS: no pedal edema Neuro: COMMON NORMALS: patient oriented x3 SENSORIUM/ORIENTATION: Yes alert, Yes oriented to person, Yes oriented to place and Yes oriented to time Skin: COMMON NORMALS: no rashes or lesions noted GENERAL SKIN EXAM: no rashes or lesions noted Course Vital Signs: Vital signs: Vital Signs Temperature 97.9 F 11/12/20 19:07 Pulse Rate 106 H 11/12/20 19:07 Respiratory Rate 18 11/12/20 19:07 Blood Pressure 137/98 11/12/20 19:07 Pulse Oximetry 91 11/12/20 19:07 MDM - Abdominal Pain MDM Narrative: Medical decision making narrative: Patient's labs (CBC, CMP, lactate) are non-concerning. Her UA is normal. Offered re-CT of her abdomen and pelvis however patient refuses. She is stable for discharge. Recommend follow-up with PCP. Return to ED precautions given. Lab Data: Labs: Lab Results 11/12/20 11/12/20 11/12/20 Range/Units 19:20 19:20 19:20 WBC 11.9 H (4.0-10.0) 10^3/ uL RBC 4.23 (4.1-5.3) 10^6/u L Hgb 12.1 (11.5-15.3) g/dL Hct 38.8 (37.0-47.0) % MCV 91.7 (81-99) fL MCH 28.6 (28.0-34.0) pg MCHC 31.2 (30.0-36.0) g/dL RDW 15.1 (12.1-15.1) % Plt Count 280 (130-400) 10^3/c mm MPV 9.5 (7.4-10.4) fL Neut % (Auto) 76.3 % Lymph % (Auto) 13.9 % Bland % (Auto) 8.8 % Eos % (Auto) 0.1 % Baso % (Auto) 0.3 % Neut # (Auto) 9.05 H (1.8-7.7) 10^3/u L Lymph # (Auto) 1.7 (0.8-4.8) 10^3/u L Bland # (Auto) 1.0 H (0.2-0.9) 10^3/u L Eos # (Auto) 0.0 (0.0-0.8) 10^3/u L Baso # (Auto) 0.0 (0.0-0.1) 10^3/u L Nucleated RBC % (a uto) 0 % Nucleated RBCs # 0.0 /100WBC Sodium 137 (136-145) mmol/L Potassium 4.7 (3.5-5.1) mmol/L Chloride 99 (98-107) mmol/L Carbon Dioxide 29 (22-29) mmol/L Anion Gap 13.7 (5-19) BUN 13 (6-20) mg/dL Creatinine 0.6 (0.5-0.9) mg/dL GFR Calculation 103.4 (90-130) mL/min Glucose 117 H (65-115) mg/dL Calculated Osmolal ity 285 (285-295) mOsm/k g Lactic Acid 1.2 (0.5-2.2) mmol/L Calcium 8.9 (8.5-10.5) mg/dL Total Bilirubin 0.2 (0.15-1.2) mg/dL AST 25 (0-32) U/L ALT 28 (0-33) U/L Alkaline Phosphata se 123 H (35-105) IU/L Total Protein 7.2 (6.6-8.7) g/dL Albumin 4.6 (3.5-5.2) g/dL Globulin 2.6 (1.3-4.6) g/dL Urine Color (Yellow) Urine Appearance (CLEAR) Urine pH (5-7) Ur Specific Gravit y (1.005-1.030) Urine Protein (Negative) Urine Glucose (UA) (Normal) Urine Ketones (Negative) Urine Blood (Negative) Urine Nitrate (Negative) Urine Bilirubin (Negative) Urine Urobilinogen (Negative) mg/dL Ur Leukocyte Zaria ase (Negative) 11/12/20 Range/Units 20:10 WBC (4.0-10.0) 10^3/ uL RBC (4.1-5.3) 10^6/u L Hgb (11.5-15.3) g/dL Hct (37.0-47.0) % MCV (81-99) fL MCH (28.0-34.0) pg MCHC (30.0-36.0) g/dL RDW (12.1-15.1) % Plt Count (130-400) 10^3/c mm MPV (7.4-10.4) fL Neut % (Auto) % Lymph % (Auto) % Bland % (Auto) % Eos % (Auto) % Baso % (Auto) % Neut # (Auto) (1.8-7.7) 10^3/u L Lymph # (Auto) (0.8-4.8) 10^3/u L Bland # (Auto) (0.2-0.9) 10^3/u L Eos # (Auto) (0.0-0.8) 10^3/u L Baso # (Auto) (0.0-0.1) 10^3/u L Nucleated RBC % (a uto) % Nucleated RBCs # /100WBC Sodium (136-145) mmol/L Potassium (3.5-5.1) mmol/L Chloride (98-107) mmol/L Carbon Dioxide (22-29) mmol/L Anion Gap (5-19) BUN (6-20) mg/dL Creatinine (0.5-0.9) mg/dL GFR Calculation (90-130) mL/min Glucose (65-115) mg/dL Calculated Osmolal ity (285-295) mOsm/k g Lactic Acid (0.5-2.2) mmol/L Calcium (8.5-10.5) mg/dL Total Bilirubin (0.15-1.2) mg/dL AST (0-32) U/L ALT (0-33) U/L Alkaline Phosphata se (35-105) IU/L Total Protein (6.6-8.7) g/dL Albumin (3.5-5.2) g/dL Globulin (1.3-4.6) g/dL Urine Color Yellow (Yellow) Urine Appearance Clear (CLEAR) Urine pH 5 (5-7) Ur Specific Gravit y 1.010 (1.005-1.030) Urine Protein Neg (Negative) Urine Glucose (UA) Norm (Normal) Urine Ketones Negative (Negative) Urine Blood Neg (Negative) Urine Nitrate Negative (Negative) Urine Bilirubin Neg (Negative) Urine Urobilinogen Norm (Negative) mg/dL Ur Leukocyte Zaria ase Negative (Negative) Discharge Plan Discharge Patient Disposition: Home Clinical Impression: Right-sided abdominal pain of unknown cause Condition: Stable Prescriptions: No Action budesonide-formoterol 2 puff inhalation BID@ RF: 0 tramadol 50 mg tablet 50 mg PO BID MDD 2 PRN (Reason: pain) 30 Days Qty: 60 RF: 0 montelukast [Singulair] 10 mg tablet 10 mg PO DAILY@729 RF: 0 Dexilant 60 mg capsule,biphase delayed releas 60 mg PO DAILY@729 RF: 0 clozapine 100 mg tablet See Rx Instructions PO .COMPLEX Qty: 120 RF: 11 Flonase Allergy Relief nasal spray syringe 2 spray NOSTRIL-B DAILY@729 RF: 0 Ventolin HFA aerosol 2 puff inhalation Q4H PRN (Reason: Shortness Of Breath) RF: 0 acetaminophen 325 mg capsule 650 mg PO Q4H Qty: 90 RF: 0 meloxicam 15 mg tablet 15 mg PO BID@ RF: 0 Xanax 0.5 mg tablet 0.5 mg PO BID@ RF: 0 citalopram 20 mg tablet 20 mg PO DAILY@729 RF: 0 benztropine 1 mg tablet 1 mg PO DAILY@729 RF: 0 mirtazapine 45 mg tablet 45 mg PO BEDTIME@1999 RF: 0 gabapentin 100 mg capsule 100 mg PO BID@ RF: 0 docusate sodium 100 mg capsule 100 mg PO BID PRN (Reason: Constipation) RF: 0 oxybutynin chloride 15 mg Tablet Extended Release 24hr 15 mg PO DAILY@729 RF: 0 Discharge Orders: Discharge ED (Routine); Ordered 11/12/20 Ordered By: Zayda Villavicencio Referrals: Evans Olvera MD [Primary Care Provider] - Patient Instructions: Abdominal Pain (ED) Coding Level of Care Code ED Qa Consultant for Chg Fwd Exam Comprehensive
[2020-11-12 19:29] LABS: Basophils % 0.3 %; Eosinophils % 0.1 %; Hematocrit 38.8 % (37.0-47.0); Hemoglobin 12.1 g/dL (11.5-15.3); Lymphocytes # 1.7 10^3/uL (0.8-4.8); Lymphocytes % 13.9 %; Mean Corpuscular HGB Conc 31.2 g/dL (30.0-36.0); Mean Corpuscular Hemoglobin 28.6 pg (28.0-34.0); Mean Corpuscular Volume 91.7 fL (81-99); Mean Platelet Volume 9.5 fL (7.4-10.4); Monocytes % 8.8 %; Neutrophils # 9.05 10^3/uL (1.8-7.7); Neutrophils % 76.3 %; Nucleated Red Blood Cells % 0 %; Platelet Count 280 10^3/cmm (130-400); Red Blood Count 4.23 10^6/uL (4.1-5.3); Red Cell Distribution Width 15.1 % (12.1-15.1); White Blood Count 11.9 10^3/uL (4.0-10.0)
[2020-11-12 19:46] LABS: Lactic Sepsis W/Reflex 1.2 mmol/L (0.5-2.2)
[2020-11-12 19:47] LABS: Alanine Aminotransferase 28 U/L (0-33); Albumin Level 4.6 g/dL (3.5-5.2); Alkaline Phosphatase 123 IU/L (35-105); Aspartate Amino Transferase 25 U/L (0-32); Blood Urea Nitrogen 13 mg/dL (6-20); Calcium 8.9 mg/dL (8.5-10.5); Carbon Dioxide 29 mmol/L (22-29); Chloride 99 mmol/L (98-107); Globulin 2.6 g/dL (1.3-4.6); Glomerular Filtration Rate 103.4 mL/min (90-130); Glucose 117 mg/dL (65-115); Osmolality Calculated 285 mOsm/kg (285-295); Sodium 137 mmol/L (136-145); Total Bilirubin 0.2 mg/dL (0.15-1.2); Total Protein 7.2 g/dL (6.6-8.7)
[2020-11-12 19:48] LABS: Anion Gap 13.7 (5-19); Potassium 4.7 mmol/L (3.5-5.1)
[2020-11-12 20:14] LABS: Add Urine Microscopic? NO; Charge for UA Resulting for Rev
[2020-11-12 20:21] LABS: Bilirubin Urine Neg (Negative); Blood Urine Neg (Negative); Glucose Urine UA Norm (Normal); Ketones Urine Negative (Negative); Leukocyte Esterase Urine Negative (Negative); Nitrate Urine Negative (Negative); Protein Urine Neg (Negative); Urine Appearance Clear (CLEAR); Urine Color Yellow (Yellow); Urobilinogen Urine Norm (Negative); pH Urine 5 (5-7)
[2020-11-12 21:45] VITALS: O2SAT 96
== END 2020-11-12 21:45 | disposition home or self-care (01) ==
PROVIDERS: Emergency Provider Physician Assistant; PCP Family Medicine Adult Medicine
DX: R10.9 Unspecified abdominal pain (principal); F17.210 Nicotine dependence, cigarettes, uncomplicated
CPT/HCPCS: 80053; 81003; 83605; 85025; 99282

== ENCOUNTER 2020-11-12 23:14 | Emergency (ER) | payer MEDICARE, MEDICAID, SELFPAY ==
[2020-11-12 23:41] VITALS: BP 126/79; PULSE 106; RESP 22; TEMP 36.7; O2SAT 96; BMI 34.7
--- NOTE | 2020-11-13 01:25 | W.ED.GENADLT ---
HPI - General Adult General: Chief complaint: General Medical Stated complaint: WANTS TO CK IN TO [facility] - STRESSING OVER WHAT TO DO Time Seen by Provider: 11/13/20 01:04 Source: patient Mode of arrival: ambulatory Limitations: no limitations History of Present Illness: HPI narrative: Patient is a 55-year-old female here yet again. This makes patient's fourth visit in less than 48 hours. She was just discharged a few hours ago and while waiting in the waiting room for her logisticare ride checked back into the emergency department. She states she wants to go to [facility] because she is stressed . She is not suicidal or homicidal. Associated symptoms: Deny chest pain, dyspnea, headache(s), nausea, rash or vomiting Review of Systems Const: Denies: fever(s) Card: Denies: chest pain Resp: Denies: dyspnea GI: Reports: abdominal pain (R sided-has been worked up 3x now for this); Denies: nausea, vomiting or diarrhea : Denies: dysuria Musc: Denies: neck pain or back pain Skin/Breast: Denies: rash Neuro: Denies: headache(s), numbness in extremities, weakness in extremities or sensory changes PFSH ED PFSH: Medical History Chronic idiopathic pain syndrome Cigarette nicotine dependence GERD (gastroesophageal reflux disease) Major depressive disorder, single episode, in full remission Obesity (BMI 30.0-34.9) 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 Other schizophrenia Other stimulant dependence, uncomplicated Family History Denies family history of Diabetes CAD (coronary artery disease) Cancer Hypertension Stroke Social History Smoking and tobacco status: current every day smoker cigarettes [ Other cigarette details: 5 daily ] Quit status (tobacco): considering quitting Second hand smoke exposure: Yes Alcohol intake: former History of recent travel: No Physical Exam Const: COMMON NORMALS: no acute distress, patient oriented x3, no limitations and alert GENERAL APPEARANCE: cooperative ORIENTATION/CONSCIOUSNESS: Yes awake, Yes oriented to person, Yes oriented to place and Yes oriented to time OTHER: I saw patient just a few hours ago. See that document. Nothing has changed with her physical examination Neuro: COMMON NORMALS: patient oriented x3 SENSORIUM/ORIENTATION: Yes alert, Yes oriented to person, Yes oriented to place and Yes oriented to time Course Vital Signs: Vital signs: Vital Signs Temperature 98.1 F 11/12/20 23:41 Pulse Rate 106 H 11/12/20 23:41 Respiratory Rate 22 H 11/12/20 23:41 Blood Pressure 126/79 11/12/20 23:41 Pulse Oximetry 96 11/12/20 23:41 MDM - General Adult MDM Narrative: Medical decision making narrative: I have had a lengthy discussion with Hilda. This makes patient's 36th ED visit this year. She has had four visits in the last 48 hours with three of them being in the last 24 hours. Patient does not meet [facility] inpatient criteria. She has no medical emergency at this time. She was encouraged to follow up with PCP. Discharge Plan Discharge Patient Disposition: Home Clinical Impression: Malingering, Stress Condition: Stable Prescriptions: No Action budesonide-formoterol 2 puff inhalation BID@ RF: 0 tramadol 50 mg tablet 50 mg PO BID MDD 2 PRN (Reason: pain) 30 Days Qty: 60 RF: 0 montelukast [Singulair] 10 mg tablet 10 mg PO DAILY@729 RF: 0 Dexilant 60 mg capsule,biphase delayed releas 60 mg PO DAILY@729 RF: 0 clozapine 100 mg tablet See Rx Instructions PO .COMPLEX Qty: 120 RF: 11 Flonase Allergy Relief nasal spray syringe 2 spray NOSTRIL-B DAILY@729 RF: 0 Ventolin HFA aerosol 2 puff inhalation Q4H PRN (Reason: Shortness Of Breath) RF: 0 acetaminophen 325 mg capsule 650 mg PO Q4H Qty: 90 RF: 0 meloxicam 15 mg tablet 15 mg PO BID@ RF: 0 Xanax 0.5 mg tablet 0.5 mg PO BID@ RF: 0 citalopram 20 mg tablet 20 mg PO DAILY@729 RF: 0 benztropine 1 mg tablet 1 mg PO DAILY@729 RF: 0 mirtazapine 45 mg tablet 45 mg PO BEDTIME@1999 RF: 0 gabapentin 100 mg capsule 100 mg PO BID@ RF: 0 docusate sodium 100 mg capsule 100 mg PO BID PRN (Reason: Constipation) RF: 0 oxybutynin chloride 15 mg Tablet Extended Release 24hr 15 mg PO DAILY@0730 RF: 0 Discharge Orders: Discharge ED (Routine); Ordered 11/13/20 Ordered By: Zayda Villavicencio Referrals: Evans Olvera MD [Primary Care Provider] - Coding Level of Care Code ED Bullet Assembly Press Operator for 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
== END 2020-11-13 01:43 | disposition home or self-care (01) ==
PROVIDERS: Emergency Provider Physician Assistant; PCP Family Medicine Adult Medicine
DX: Z73.3 Stress, not elsewhere classified (principal); Z76.5 Malingerer [conscious simulation]; F17.210 Nicotine dependence, cigarettes, uncomplicated
CPT/HCPCS: 99281

== ENCOUNTER 2020-12-06 06:00 | Outpatient (RCR) | payer MEDICARE, MEDICAID, SELFPAY | END 2020-12-20 23:59 | disposition home or self-care (01) | LOC: SPT 06:00 | PROVIDERS: PCP Family Medicine Adult Medicine; Referring Provider Family Medicine Adult Medicine; Visit Provider Family Medicine Adult Medicine | DX: R10.9 Unspecified abdominal pain (principal); G89.29 Other chronic pain | CPT/HCPCS: 97110; 97162 ==

== ENCOUNTER → 2020-12-10 08:03 | Outpatient (BNVA) | payer MEDICARE, MEDICAID, SELFPAY | PROVIDERS: PCP Family Medicine Adult Medicine; Visit Provider Psychiatry & Neurology Psychiatry | DX: F32.5 Major depressive disorder, single episode, in full remission (principal); F17.210 Nicotine dependence, cigarettes, uncomplicated; F20.89 Other schizophrenia | CPT/HCPCS: 99213 ==

== ENCOUNTER 2020-12-21 06:00 | Outpatient (RCR) | payer MEDICARE, MEDICAID, SELFPAY | END 2021-01-19 23:59 | disposition home or self-care (01) | LOC: SPT 06:00 | PROVIDERS: PCP Family Medicine Adult Medicine; Referring Provider Family Medicine Adult Medicine; Visit Provider Family Medicine Adult Medicine | DX: R10.9 Unspecified abdominal pain (principal); G89.29 Other chronic pain | CPT/HCPCS: 97110 ==

== ENCOUNTER → 2020-12-29 11:27 | Outpatient (BNVA) | payer MEDICARE, MEDICAID, SELFPAY | PROVIDERS: PCP Family Medicine Adult Medicine; Visit Provider Social Worker | DX: F20.89 Other schizophrenia (principal); F32.5 Major depressive disorder, single episode, in full remission | CPT/HCPCS: 90832 ==

== ENCOUNTER → 2021-01-07 07:10 | Outpatient (BNVA) | payer MEDICARE, MEDICAID, SELFPAY | PROVIDERS: PCP Family Medicine Adult Medicine; Visit Provider Psychiatry & Neurology Psychiatry | DX: F20.89 Other schizophrenia (principal); F32.5 Major depressive disorder, single episode, in full remission; F17.210 Nicotine dependence, cigarettes, uncomplicated; Z79.899 Other long term (current) drug therapy | CPT/HCPCS: 99214 ==

== ENCOUNTER → 2021-01-17 11:39 | Outpatient (BNVA) | payer MEDICARE, MEDICAID, SELFPAY | PROVIDERS: PCP Family Medicine Adult Medicine; Visit Provider Social Worker | DX: F20.89 Other schizophrenia (principal); F32.5 Major depressive disorder, single episode, in full remission | CPT/HCPCS: 90834 ==

== ENCOUNTER → 2021-02-08 10:37 | Outpatient (BNVA) | payer MEDICARE, MEDICAID, SELFPAY | PROVIDERS: PCP Family Medicine Adult Medicine; Visit Provider Psychiatry & Neurology Psychiatry | DX: F20.89 Other schizophrenia (principal); Z79.899 Other long term (current) drug therapy | CPT/HCPCS: 85007; 85027 ==

== ENCOUNTER → 2021-03-04 07:16 | Outpatient (BNVA) | payer MEDICARE, MEDICAID, SELFPAY | PROVIDERS: PCP Family Medicine Adult Medicine; Visit Provider Psychiatry & Neurology Psychiatry | DX: F20.89 Other schizophrenia (principal); F32.5 Major depressive disorder, single episode, in full remission; F17.210 Nicotine dependence, cigarettes, uncomplicated; Z79.899 Other long term (current) drug therapy | CPT/HCPCS: 99214 ==

== ENCOUNTER → 2021-04-04 08:58 | Outpatient (BNVA) | payer MEDICARE, MEDICAID, SELFPAY | PROVIDERS: PCP Family Medicine Adult Medicine; Visit Provider Social Worker | DX: F20.89 Other schizophrenia (principal); F32.5 Major depressive disorder, single episode, in full remission | CPT/HCPCS: 90834 ==

== ENCOUNTER → 2021-04-08 07:25 | Outpatient (BNVA) | payer MEDICARE, MEDICAID, SELFPAY | PROVIDERS: PCP Family Medicine Adult Medicine; Visit Provider Psychiatry & Neurology Psychiatry | DX: F20.89 Other schizophrenia (principal); F32.5 Major depressive disorder, single episode, in full remission; F17.210 Nicotine dependence, cigarettes, uncomplicated; Z79.899 Other long term (current) drug therapy | CPT/HCPCS: 99214 ==

== ENCOUNTER → 2021-04-25 09:26 | Outpatient (BNVA) | payer MEDICAID, SELFPAY | PROVIDERS: PCP Family Medicine Adult Medicine; Visit Provider Social Worker | DX: F20.89 Other schizophrenia (principal); F32.5 Major depressive disorder, single episode, in full remission | CPT/HCPCS: 90834 ==

== ENCOUNTER → 2021-05-06 10:13 | Outpatient (BNVA) | payer MEDICARE, MEDICAID, SELFPAY | PROVIDERS: PCP Family Medicine Adult Medicine; Visit Provider Psychiatry & Neurology Psychiatry | DX: F20.89 Other schizophrenia (principal); F32.5 Major depressive disorder, single episode, in full remission; F17.210 Nicotine dependence, cigarettes, uncomplicated; Z79.899 Other long term (current) drug therapy | CPT/HCPCS: 99214 ==

== ENCOUNTER → 2021-05-16 11:51 | Outpatient (BNVA) | payer MEDICARE, MEDICAID, SELFPAY | PROVIDERS: PCP Family Medicine Adult Medicine; Visit Provider Nurse Practitioner | DX: M79.602 Pain in left arm (principal); M18.9 Osteoarthritis of first carpometacarpal joint, unspecified | CPT/HCPCS: 73110 ==

== ENCOUNTER 2021-05-17 18:14 | Emergency (ER) | payer MEDICARE, MEDICAID, SELFPAY ==
[2021-05-17 18:59] VITALS: BP 138/90; PULSE 114; RESP 18; TEMP 36.8; O2SAT 94; BMI 33.6
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
[2021-05-17 19:31] VITALS: BP 142/92; PULSE 110; RESP 16; O2SAT 94
[2021-05-17 19:54] LABS: Add Urine Microscopic? NO; Charge for UA Resulting for Rev
[2021-05-17 20:07] LABS: Bilirubin Urine Neg (Negative); Blood Urine Neg (Negative); Glucose Urine UA Norm (Normal); Ketones Urine Negative (Negative); Leukocyte Esterase Urine Negative (Negative); Nitrate Urine Negative (Negative); Protein Urine Neg (Negative); Urine Appearance Clear (CLEAR); Urine Color Straw (Yellow); Urobilinogen Urine Norm (Negative); pH Urine 5 (5-7)
[2021-05-17 20:14] LABS: Amphetamines Screen Urine Negative (Negative); Barbiturates Screen Urine Negative (Negative); Benzodiazepines Screen Urine Positive (Negative); Cocaine Screen Urine Negative (Negative); Opiate Screen Urine Negative (Negative); PCP Screen Urine Negative (Negative); THC Screen Urine Negative (Negative)
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
[2021-05-17] MEDS: LORazepam 0.5 mg Tablet PO (20:59)
[2021-05-17 21:12] VITALS: BP 138/97; PULSE 105; RESP 19; O2SAT 95
[2021-05-17 22:54] VITALS: BP 138/97; PULSE 105; RESP 19; TEMP 36.8; O2SAT 95
== END 2021-05-17 22:56 | disposition home or self-care (01) ==
PROVIDERS: Emergency Provider Emergency Medicine; PCP Family Medicine Adult Medicine
DX: M25.522 Pain in left elbow (principal); F32.5 Major depressive disorder, single episode, in full remission; F41.9 Anxiety disorder, unspecified; F17.210 Nicotine dependence, cigarettes, uncomplicated; Z79.891 Long term (current) use of opiate analgesic; Z79.899 Other long term (current) drug therapy; J44.9 Chronic obstructive pulmonary disease, unspecified; G89.29 Other chronic pain
CPT/HCPCS: 29105; 73070; 80306; 81003; 99283

== ENCOUNTER → 2021-05-19 07:36 | Outpatient (BNVA) | payer MEDICARE, MEDICAID, SELFPAY | PROVIDERS: PCP Family Medicine Adult Medicine; Visit Provider Psychiatry & Neurology Psychiatry | DX: F41.9 Anxiety disorder, unspecified (principal); F20.89 Other schizophrenia; F32.5 Major depressive disorder, single episode, in full remission; F17.210 Nicotine dependence, cigarettes, uncomplicated | CPT/HCPCS: 99214 ==

== ENCOUNTER → 2021-05-23 08:35 | Outpatient (BNVA) | payer MEDICARE, MEDICAID, SELFPAY | PROVIDERS: PCP Family Medicine Adult Medicine; Visit Provider Social Worker | DX: F20.89 Other schizophrenia (principal); F32.5 Major depressive disorder, single episode, in full remission | CPT/HCPCS: 90832 ==

== ENCOUNTER 2021-05-23 10:03 | Emergency (ER) | payer MEDICARE, MEDICAID, SELFPAY ==
[2021-05-23 10:46] VITALS: BP 125/81; PULSE 99; RESP 20; TEMP 36.4; O2SAT 97; BMI 33.6
--- NOTE | 2021-05-23 11:00 | ED_ITS ---
HPI - Extremity Problem General: Chief complaint: Extremity Injury, Upper Stated complaint: L ARM REWRAP Time Seen by Provider: 05/23/21 10:18 History of Present Illness: HPI Narrative: Patient presents asking for rewrap on her left arm splint now that the donnie wrap is stretched out. Also asking for pain medication for chronic elbow pain MD Complaint: other Associated symptoms: Deny fever(s) or rash Review of Systems Const: Denies: fever(s) or chills Musc: Reports: joint pain (Chronic left elbow) Skin/Breast: Denies: rash, erythema or skin tenderness PFS ED PFSH: Medical History (Updated 05/23/21 @ 10:59 by YAEL Sebastian) Allergic rhinitis Callus of foot Chronic pain disorder Cigarette nicotine dependence COPD (chronic obstructive pulmonary disease) GERD (gastroesophageal reflux disease) Major depressive disorder, single episode, in full remission Obesity (BMI 30.0-34.9) Osteoarthritis (arthritis due to wear and tear of joints) 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 Other schizophrenia Other stimulant dependence, uncomplicated Pain in abdomen on palpation Psychiatric care Sialorrhea Family History Denies family history of Diabetes CAD (coronary artery disease) Cancer Hypertension Stroke Social History Smoking and tobacco status: current every day smoker cigarettes [ Other cigarette details: 5 daily ] Quit status (tobacco): considering quitting Second hand smoke exposure: Yes Alcohol intake: former History of recent travel: No Physical Exam Const: COMMON NORMALS: no acute distress GENERAL APPEARANCE: cooperative Extremity: OTHER: Splint in place left elbow, posterior splint, Donnie wrap to stretch donnie wrap was reapplied. No redness swelling noted to elbow. Psych: COMMON NORMALS: mental status grossly normal Course Vital Signs: Vital signs: Vital Signs Temperature 97.5 F L 05/23/21 10:46 Pulse Rate 99 05/23/21 10:46 Respiratory Rate 20 H 05/23/21 10:46 Blood Pressure 125/81 05/23/21 10:46 Pulse Oximetry 97 05/23/21 10:46 Discharge Plan Discharge Patient Disposition: Home Clinical Impression: Elbow pain Qualifiers: Laterality: left Qualified Code(s): M25.522 - Pain in left elbow Condition: Stable Prescriptions: New Celebrex 100 mg capsule 100 mg PO BID Qty: 20 RF: 0 Discontinued meloxicam 15 mg tablet 15 mg PO BID@ Qty: 60 RF: 5 prednisone 20 mg tablet 40 mg PO DAILY 5 Days Qty: 10 RF: 0 No Action budesonide-formoterol 2 puff inhalation BID@ RF: 0 mirtazapine 45 mg tablet 45 mg PO BEDTIME@1999 Qty: 30 RF: 11 Xanax 0.5 mg tablet 0.5 mg PO BID@ Qty: 60 RF: 5 benztropine 1 mg tablet 1 mg PO DAILY@729 Qty: 30 RF: 5 citalopram 20 mg tablet 20 mg PO DAILY@729 Qty: 30 RF: 5 clozapine 100 mg tablet 100 mg PO QID RF: 0 tramadol 50 mg tablet 50 mg PO BID MDD 2 PRN (Reason: pain) 30 Days Qty: 60 RF: 2 montelukast [Singulair] 10 mg tablet 10 mg PO DAILY@729 Qty: 30 RF: 5 gabapentin 300 mg capsule 300 mg PO BID Qty: 60 RF: 3 Dexilant 60 mg capsule,biphase delayed releas 60 mg PO DAILY@729 RF: 0 fluticasone propionate 50 mcg/actuation spray,suspension 1 spray intranasal BID Qty: 16 RF: 5 clozapine 50 mg tablet 50 mg PO BID Qty: 60 RF: 11 oxybutynin chloride 15 mg tablet extended release 24 hr 15 mg PO DAILY@729 90 Days Qty: 90 RF: 2 albuterol sulfate 90 mcg/actuation HFA aerosol inhaler See Rx Instructions .ROUTE .COMPLEX Qty: 8.5 RF: 5 docusate sodium 100 mg capsule 100 mg PO BID PRN (Reason: Constipation) RF: 0 Discharge Orders: Discharge ED (Routine); Ordered 05/23/21 Ordered By: Jeremy Cortez Referrals: Evans Olvera MD [Primary Care Provider] - Discharge Diet: Usual diet Discharge Activity: Increase activity as tolerated Activity Restrictions/Additional Instructions: Follow-up with medical provider as directed. Take medications as prescribed. Return to the ER or your medical provider if condition worsens. Please read and understand discharge instructions. If any questions ask please. Keep appointment with primary care provider as scheduled. Coding Level of Care Code ED Golf Course Superintendent for Chg Fwd
[2021-05-23 11:18] VITALS: BP 144/60; PULSE 98; RESP 20; TEMP 36.4; O2SAT 97
== END 2021-05-23 11:18 | disposition home or self-care (01) ==
PROVIDERS: Emergency Provider Nurse Practitioner Family; PCP Family Medicine Adult Medicine
DX: M25.522 Pain in left elbow (principal); G89.29 Other chronic pain; Z48.00 Encounter for change or removal of nonsurgical wound dressing; F17.210 Nicotine dependence, cigarettes, uncomplicated; Z79.891 Long term (current) use of opiate analgesic; Z79.899 Other long term (current) drug therapy
CPT/HCPCS: 99282

== ENCOUNTER → 2021-06-01 10:10 | Outpatient (BNVA) | payer MEDICARE, MEDICAID, SELFPAY | PROVIDERS: PCP Family Medicine Adult Medicine; Visit Provider Psychiatry & Neurology Psychiatry | DX: F20.89 Other schizophrenia (principal); F32.5 Major depressive disorder, single episode, in full remission; F17.210 Nicotine dependence, cigarettes, uncomplicated | CPT/HCPCS: 99214 ==

== ENCOUNTER → 2021-06-08 13:59 | Outpatient (BNVA) | payer MEDICARE, MEDICAID, SELFPAY | PROVIDERS: PCP Family Medicine Adult Medicine; Visit Provider Psychiatry & Neurology Psychiatry | DX: F20.89 Other schizophrenia (principal); Z79.899 Other long term (current) drug therapy | CPT/HCPCS: 85007; 85027 ==

== ENCOUNTER 2021-06-24 09:59 | Outpatient (CLI) | payer MEDICARE, MEDICAID, SELFPAY ==
--- NOTE | 2021-06-24 10:03 | XR_ITS ---
WS: [id number] Right shoulder, 2 views, 06/24/2021 Clinical Data: Shoulder pain Comparison: Right shoulder, 05/24/2017. Findings: No fractures or dislocations are seen. The AC joint is normal. The adjacent right clavicle, right sca pula and ribs are normal. The soft tissues are unremarkable. XR/XR shoulder RT min 2V* [id number] Impression: Negative right shoulder.
== END 2021-06-24 10:00 | disposition home or self-care (01) ==
LOC: RAD 10:01
PROVIDERS: PCP Family Medicine Adult Medicine; Visit Provider Family Medicine Adult Medicine
DX: M25.511 Pain in right shoulder (principal)
CPT/HCPCS: 73030

== ENCOUNTER 2021-06-25 07:45 | Emergency (ER) | payer MEDICARE, MEDICAID, SELFPAY ==
[2021-06-25 07:50] VITALS: BP 131/82; PULSE 110; RESP 18; TEMP 36.1; O2SAT 94; BMI 33.6
--- NOTE | 2021-06-25 08:45 | W.ED.EXTPRO ---
HPI - Extremity Problem General: Chief complaint: Extremity Injury, Upper Stated complaint: R SHOULDER PAIN Time Seen by Provider: 06/25/21 08:11 Source: patient Mode of arrival: ambulatory Limitations: no limitations History of Present Illness: HPI Narrative: 56-year-old female with chronic medical problems and frequent ER visits, presents to the ER today for right shoulder pain. Patient reports this has been going on for about 5 days. Patient was seen by her primary care doctor yesterday and given anti-inflammatory and muscle relaxer. Patient denies any injury 5 days ago but reports the pain has been worsening since. Patient reports she is not sleeping well due to the pain. Patient reports chronic shoulder problems and this is likely just an exacerbation. Patient reports pain is with abduction and flexion of the right shoulder. Patient denies any headache, fever, chills, chest pain, shortness of breath, nausea, vomiting, diarrhea, constipation. MD Complaint: joint pain Onset (ago): day(s) Pain Consistency: constant Location: right and upper extremity Severity scale (1-10): 8 Quality: aching Radiation: none Relieving factors: nothing Exacerbating factors: nothing Associated symptoms: Deny chest pain, fever(s) or rash Review of Systems General: Reports: 10 or more systems reviewed and unremarkable except in HPI and below Const: Denies: fever(s), chills or body aches ENMT: Denies: throat pain, nasal discharge or nasal congestion Card: Denies: chest pain or palpitations Resp: Denies: dyspnea, productive cough or wheezing GI: Denies: abdominal pain, nausea, vomiting, diarrhea or constipation Musc: Reports: joint pain; Denies: neck pain, back pain or joint swelling Skin/Breast: Denies: rash or pruritus Neuro: Denies: headache(s) or dizziness PFS ED PFSH: Medical History Allergic rhinitis Callus of foot Chronic pain disorder Cigarette nicotine dependence COPD (chronic obstructive pulmonary disease) GERD (gastroesophageal reflux disease) Major depressive disorder, single episode, in full remission Obesity (BMI 30.0-34.9) Osteoarthritis (arthritis due to wear and tear of joints) Other detention (current) drug therapy Other schizophrenia Other stimulant dependence, uncomplicated Pain in abdomen on palpation Psychiatric care Shoulder pain, right Sialorrhea Family History Denies family history of Diabetes CAD (coronary artery disease) Cancer Hypertension Stroke Social History Quit status (tobacco): considering quitting Second hand smoke exposure: Yes Alcohol intake: former History of recent travel: No Physical Exam Const: COMMON NORMALS: no acute distress, average body habitus and patient oriented x3 GENERAL APPEARANCE: cooperative and comfortable HENMT: COMMON NORMALS: normocephalic, external ears normal and Normal external nose present HEAD & SCALP: normocephalic NOSE: Normal external nose present EXTERNAL EAR: Yes external ears normal Eye: COMMON NORMALS: conjunctivae normal GENERAL EYE: appearance normal, both eyes and all related structures CONJUNCTIVA: Yes conjunctivae normal Resp: COMMON NORMALS: normal respiratory effort EFFORT & INSPECTION: Yes able to speak in complete sentences Cardio: COMMON NORMALS: regular rate RATE: regular rate and tachycardic Extremity: RIGHT UPPER EXTREMITY: Yes shoulder joint (non tender to palpation) Right shoulder: Yes Right shoulder joint inspection exam (normal), Yes palpation, Yes Right shoulder joint ROM exam (pain with abduction and flexion), Yes Right shoulder joint neurovascular exam (intact) and Yes Right shoulder joint special tests Right shoulder special tests: Empty can test: Negative (mild pain illicited) Neuro: COMMON NORMALS: patient oriented x3, moves all extremities, no sensory deficits noted and gait normal Psych: COMMON NORMALS: cooperative and speech normal SPEECH: Yes normal speech Skin: COMMON NORMALS: no rashes or lesions noted GENERAL SKIN EXAM: no rashes or lesions noted Course ED course: Patient presents to the ER today for right shoulder pain. This has been going on for 5 days and patient was seen by PCP yesterday and had imaging done. Imaging was reviewed and was negative. Patient wanting something for pain. Vital Signs: Vital signs: Vital Signs Temperature 96.9 F L 06/25/21 07:50 Pulse Rate 110 H 06/25/21 07:50 Respiratory Rate 18 06/25/21 07:50 Blood Pressure 131/82 06/25/21 07:50 Pulse Oximetry 94 06/25/21 07:50 Critical Care Time Critical Care Time: Critical Care Time: No MDM - Extremity (Nontraumatic) MDM Narrative: Medical decision making narrative: 56-year-old female presents to the ER today for right shoulder pain. This is been going on for 5 days the patient was seen by her PCP yesterday. Imaging was ordered and was reviewed in the ER today. Imaging was negative for dislocation or acute injury. This is likely acute exacerbation of chronic pain in the shoulder. Patient was given anti-inflammatory muscle relaxer yesterday. We will try a short burst of steroids at this time but no further pain medications will be given. Patient is to follow-up with her primary care in 10 days if no improvement to discuss further imaging. Return to ER with new or worsening symptoms. Patient verbalized understanding and is in agreement with this treatment plan. Discharge Plan Discharge Patient Disposition: Home Clinical Impression: Acute pain of right shoulder Condition: Stable Prescriptions: New prednisone 20 mg tablet 40 mg PO DAILY 4 Days RF: 0 No Action budesonide-formoterol 2 puff inhalation BID@ RF: 0 mirtazapine 45 mg tablet 45 mg PO BEDTIME@1999 Qty: 30 RF: 11 Xanax 0.5 mg tablet 0.5 mg PO BID@ Qty: 60 RF: 5 benztropine 1 mg tablet 1 mg PO DAILY@729 Qty: 30 RF: 5 citalopram 20 mg tablet 20 mg PO DAILY@729 Qty: 30 RF: 5 tramadol 50 mg tablet 50 mg PO BID MDD 2 PRN (Reason: pain) 30 Days Qty: 60 RF: 2 montelukast [Singulair] 10 mg tablet 10 mg PO DAILY@729 Qty: 30 RF: 5 Dexilant 60 mg capsule,biphase delayed releas 60 mg PO DAILY@729 RF: 0 fluticasone propionate 50 mcg/actuation spray,suspension 1 spray intranasal BID Qty: 16 RF: 5 clozapine 100 mg tablet 100 mg PO BID Qty: 60 RF: 11 gabapentin 300 mg capsule 300 mg PO BID Qty: 60 RF: 5 cyclobenzaprine 5 mg tablet 5 mg PO TID PRN (Reason: muscle spasm and pain) Qty: 30 RF: 1 clozapine 50 mg tablet 50 mg PO BID Qty: 60 RF: 11 oxybutynin chloride 15 mg tablet extended release 24 hr 15 mg PO DAILY@0730 90 Days Qty: 90 RF: 2 albuterol sulfate 90 mcg/actuation HFA aerosol inhaler See Rx Instructions .ROUTE .COMPLEX Qty: 8.5 RF: 5 docusate sodium 100 mg capsule 100 mg PO BID PRN (Reason: Constipation) RF: 0 Discharge Orders: Discharge ED (Routine); Ordered 06/25/21 Ordered By: Beth Schmidt Referrals: Evans Olvera MD [Primary Care Provider] - Discharge Diet: Usual diet Discharge Activity: Resume usual activity Patient Instructions: Shoulder Pain (ED), Opioid Safety Activity Restrictions/Additional Instructions: Take prednisone as prescribed. Take all other home meds as previously prescribed. Warm, moist heat recommended alternate with ice for symptomatic relief. Use topical muscle rub such as BenGay or icy hot, but do not use with heat or ice. If pain persists for more than 10 days, follow-up with PCP to discuss further imaging. Return to the ER with new or worsening symptoms. Coding Level of Care Code ED Supervisor Aluminum Fabrication for 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
== END 2021-06-25 08:39 | disposition home or self-care (01) ==
LOC: ER 08:29
PROVIDERS: Emergency Provider Physician Assistant; PCP Family Medicine Adult Medicine
DX: M25.511 Pain in right shoulder (principal); J44.9 Chronic obstructive pulmonary disease, unspecified; Z77.22 Contact with and (suspected) exposure to environmental tobacco smoke (acute) (chronic)
CPT/HCPCS: 99282

== ENCOUNTER → 2021-06-30 08:11 | Outpatient (BNVA) | payer MEDICARE, MEDICAID, SELFPAY | PROVIDERS: PCP Family Medicine Adult Medicine; Visit Provider Social Worker | DX: F20.89 Other schizophrenia (principal); F32.5 Major depressive disorder, single episode, in full remission | CPT/HCPCS: 90834; 90832 ==

== ENCOUNTER → 2021-07-06 07:23 | Outpatient (BNVA) | payer MEDICARE, MEDICAID, SELFPAY | PROVIDERS: PCP Family Medicine Adult Medicine; Visit Provider Psychiatry & Neurology Psychiatry | DX: F20.89 Other schizophrenia (principal); F32.5 Major depressive disorder, single episode, in full remission; F17.210 Nicotine dependence, cigarettes, uncomplicated | CPT/HCPCS: 99214 ==

== ENCOUNTER → 2021-07-27 09:51 | Outpatient (BNVA) | payer MEDICARE, MEDICAID, SELFPAY | PROVIDERS: PCP Family Medicine Adult Medicine; Visit Provider Social Worker | DX: F20.89 Other schizophrenia (principal); F32.5 Major depressive disorder, single episode, in full remission | CPT/HCPCS: 90832; 85007; 85027 ==

== ENCOUNTER → 2021-08-18 14:07 | Outpatient (BNVA) | payer MEDICARE, MEDICAID, SELFPAY | PROVIDERS: PCP Family Medicine Adult Medicine; Visit Provider Psychiatry & Neurology Psychiatry | DX: Z79.899 Other long term (current) drug therapy (principal) | CPT/HCPCS: 80159; 99215 ==

== ENCOUNTER → 2021-08-23 09:03 | Outpatient (BNVA) | payer MEDICARE, MEDICAID, SELFPAY | PROVIDERS: PCP Family Medicine Adult Medicine; Visit Provider Social Worker | DX: F33.1 Major depressive disorder, recurrent, moderate (principal); F20.89 Other schizophrenia | CPT/HCPCS: 90834 ==

== ENCOUNTER 2021-08-23 10:57 | Emergency (ER) | payer MEDICARE, MEDICAID, SELFPAY ==
[2021-08-23 11:06] VITALS: BP 126/77; PULSE 108; RESP 18; TEMP 36.9; O2SAT 94; BMI 33.6
--- NOTE | 2021-08-23 11:10 | ECG_ITS ---
[facility] Test Date: 2021-08-23 Pat Name: Hilda Nolan Department: Room: Gender: Female Specification Manager: : 1965 Requested By: Carlee Jimenez Order Number: [id number] Kimberly MD: Ember Willoughby M.D. Measurements Intervals [place] Rate: 101 P: 55 AR: 135 QRS: 34 QRSD: 96 T: 39 QT: 347 QTc: 451 Interpretive Statements SINUS TACHYCARDIA ABNORMAL RHYTHM ECG Compared to ECG 06/20/2019 07:45:20 No significant changes Electronically Signed On 08-23-2021 17:08:29 HEALTH ADVISOR by Ember Willoughby M.D. [id number] f
--- NOTE | 2021-08-23 11:10 | XR_ITS ---
WS: [id number] XR chest 1V portable [id number] REASON FOR EXAM: chest pain FINDINGS: The chest is unchanged compared to 11/23/2019. The heart and mediastinum are within normal limits. Calcified granulomatous changes in both hemithoraces. No acute pulmonary parenchymal or pleural abnormality. Bony thorax intact. XR/XR chest 1V portable [id number] IMPRESSION: No acute abnormality.
[2021-08-23 11:21] LABS: Glucose Point of Care 90 mg/dL (70-110)
[2021-08-23 11:30] LABS: Basophils % 0.4 %; Eosinophils % 0.2 %; Hemoglobin 14.1 g/dL (11.5-15.3); Lymphocytes # 1.9 10^3/uL (0.8-4.8); Lymphocytes % 17.8 %; Mean Corpuscular HGB Conc 32.8 g/dL (30.0-36.0); Mean Corpuscular Volume 91.5 fl (81-99); Mean Platelet Volume 9.6 fL (7.4-10.4); Neutrophils # 7.78 10^3/uL (1.8-7.7); Neutrophils % 71.9 %; Nucleated Red Blood Cells % 0 %; Platelet Count 279 10^3/cmm (130-400); Red Cell Distribution Width 14.6 % (12.1-15.1); White Blood Count 10.8 10^3/uL (4.0-10.0)
--- NOTE | 2021-08-23 11:31 | CT_ITS ---
WS: [id number] CTA HEAD AND NECK TECHNIQUE: Contrast enhanced CTA of the head and neck with coronal and sagittal reformatted images an d maximum intensity projection (MIP) images. NASCET criteria utilized. CLINICAL INFORMATION: light-headedness COMPARISON: None. DLP: 2549.[address] scans at [facility] use at least one of these dose optimization techniques: automated e xposure control; mA and/or kV adjustment per patient size (includes targeted exams where dose is matc hed to clinical indication); or iterative reconstruction. FINDINGS: RIGHT: Right common carotid artery is patent. No significant right ICA stenosis. ICA is patent to the skull base. Retropharyngeal course right cervical ICA. LEFT: Left common carotid artery is patent. No significant left ICA stenosis. Left ICA is patent to the skull base. Retropharyngeal course left c ervical ICA. Left dominant vertebral artery. Smaller but patent right vertebral artery. Proximal basilar artery is patent. INTRACRANIAL CTA: Basilar artery is patent. Normal vascularity to the OPERATIONS ARCHITECT territory bilaterally. Both ICAs are patent at the skull base. Normal vascularity to the JORGE and MCA territories bilaterally . Patent anterior communicating artery. No evidence of flow-limiting stenosis or aneurysm. Mild spondylitic changes cervical spine. Disc osteophyte complexes at C5-C6. Anterior hypertrophic ch anges C5-C7. Normal visualized dural venous sinuses. CT/CT angio headneck* [id number] IMPRESSION: 1. No significant ICA stenosis bilaterally. 2. Left dominant vertebral artery. Both vertebral arteries are patent. 3. Normal intracranial CTA. No flow-limiting stenosis.
--- NOTE | 2021-08-23 11:31 | CT_ITS ---
WS: [id number] CT HEAD TECHNIQUE: Noncontrast CT of the head obtained from the skullbase to the vertex. CLINICAL INFORMATION: light-headedness COMPARISON: 3 26,018 DLP: 764.[address] scans at [facility] use at least one of these dose optimization techniques: automated e xposure control; mA and/or kV adjustment per patient size (includes targeted exams where dose is matc hed to clinical indication); or iterative reconstruction. FINDINGS: No evidence of intracranial hemorrhage or mass effect. Ventricular system and basal cisterns are mix nt. Mild parenchymal volume loss. No extra-axial fluid collections. No evidence of mass or mass effec t. Normal dewey-white differentiation. Paranasal sinuses and mastoid air cells are well aerated. .Normal visualized soft tissues. CT/CT head wo con* [id number] IMPRESSION: 1. No evidence of intracranial hemorrhage or mass effect. 2. No acute intracranial findings.
[2021-08-23 11:50] LABS: Anion Gap 14.3 (5-19); Blood Urea Nitrogen 10 mg/dL (6-20); Calcium 8.8 mg/dL (8.5-10.5); Carbon Dioxide 24 mmol/L (22-29); Chloride 101 mmol/L (98-107); Glomerular Filtration Rate 86.2 mL/min (90-130); Glucose 83 mg/dL (65-115); Osmolality Calculated 278 mOsm/kg (285-295); Potassium 4.3 mmol/L (3.5-5.1); Sodium 135 mmol/L (136-145)
[2021-08-23 11:58] LABS: Troponin(5th) Baseline 6 ng/L (0-10)
[2021-08-23] MEDS: iohexol 350 mg/mL 100 mL Btl IV (12:07)
[2021-08-23 12:09] VITALS: BP 104/74; BP 104/81; PULSE 100; PULSE 101
--- NOTE | 2021-08-23 12:13 | W.ED.GENADLT ---
HPI - General Adult General: Chief complaint: Dizziness Stated complaint: DIZZY, WEAKNESS Time Seen by Provider: 08/23/21 11:05 History of Present Illness: HPI: [56]yo patient w/ hx of prior TBI BIBA after an episode of syncope lasting for a few seconds yesterday night while sitting on a recliner. Patient denies any post-ictal confusion, tongue biting or bladder/bowel incontinence. Patient denies any prior hx of syncope in the past. No associated symptoms of chest pain, shortness of breath, palpitations or focal weakness right before the incident. No family hx of sudden cardiac or unexplained . Onset: 1 day ago Duration: ongoing Location: home Severity: mild Associated symptoms: Deny chest pain, dyspnea, nausea, rash, palpitations or vomiting Review of Systems Const: Denies: fever(s) or chills Eyes: Denies: change in vision ENMT: Denies: mouth pain Card: Denies: chest pain or palpitations Resp: Denies: dyspnea or non-productive cough GI: Denies: abdominal pain, nausea, vomiting or diarrhea : Denies: dysuria Musc: Denies: extremity pain Skin/Breast: Denies: rash or new lesions Neuro: Reports: other (+light-headedness, syncope); Denies: weakness in extremities Psych: Reports: other (Normal mood) Trevon/Lymph: Denies: easy bruising PFSH ED PFSH: Medical History Allergic rhinitis Callus of foot Chronic pain disorder Cigarette nicotine dependence COPD (chronic obstructive pulmonary disease) GERD (gastroesophageal reflux disease) Obesity (BMI 30.0-34.9) Osteoarthritis (arthritis due to wear and tear of joints) 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 Other schizophrenia Other stimulant dependence, uncomplicated Pain in abdomen on palpation Shoulder pain, right Sialorrhea Family History Denies family history of Diabetes CAD (coronary artery disease) Cancer Hypertension Stroke Social History Quit status (tobacco): considering quitting Second hand smoke exposure: Yes Alcohol intake: former History of recent travel: No Physical Exam Const: COMMON NORMALS: alert HENMT: COMMON NORMALS: atraumatic HEAD & SCALP: atraumatic MOUTH: moist mucous membranes not abnormal Eye: COMMON NORMALS: EOMs intact bilaterally and conjunctivae normal CONJUNCTIVA: Yes conjunctivae normal Neck/C-Spine: COMMON NORMALS: full ROM and supple Resp: COMMON NORMALS: normal respiratory effort and clear to auscultation bilaterally AUSCULTATION: clear to auscultation bilaterally Cardio: RATE: tachycardic GI: COMMON NORMALS: Soft to palpation and non-tender PALPATION: Yes Soft to palpation Extremity: COMMON NORMALS: full ROM Neuro: SENSORIUM/ORIENTATION: Yes alert MOTOR EXAM: No Abnormal motor strength present and Other motor observations present (no focal motor deficits) OTHER: Mental status? Awake, alert, and oriented to self, year, month, location, and situation.? Following simple axial and appendicular commands.? Has appropriate fund of knowledge, comprehension, and insight.? Able to recall and understands pertinent aspects of medical history and current treatment status.? ? Language? Speech is fluent without word-finding difficulties.? Intact naming, expression, paper plate machine tender, and repetition.? ? Cranial nerves? 2,3,4,6: PERRL, EOMI with no nystagmus. 5: Intact sensation to light touch, symmetric? 7: Smile symmetrical, no facial droop.? 8: Hearing grossly intact.? 9,10: Normal palate movement.? 11: Normal strength in trapezius bilaterally 12: Tongue protrudes midline.? ? Motor examination? Normal bulk & tone. Strength as follows (R/L): Delts (5/5), Biceps (5/5), Triceps (5/5), Wrist ext (5/5), hip flexors (5/5), plantarflexors (5/5), dorsiflexors (5/5). ? Sensation? Light Touch: Grossly intact and equal in upper and lower extremities bilaterally? Romberg: Negative.? Distal joint position sense intact ? Coordination? Yuvogp-ym-endw-finger movements intact without dysmetria or past-pointing.? Rapid fingertaps: preserved amplitude without decriment.? No tremor, myoclonus or truncal ataxia.? ? Gait/stance? Steady, normal narrow base gait with appropriate arm swing and turning.? Tandem gait without hesitation or loss of balance. Psych: COMMON NORMALS: speech normal SPEECH: Yes normal speech MOOD & AFFECT: Yes euthymic mood Course Vital Signs: Vital signs: Vital Signs Temperature 98.4 F 08/23/21 11:06 Pulse Rate 101 H 08/23/21 12:09 Respiratory Rate 18 08/23/21 11:06 Blood Pressure 104/81 08/23/21 12:09 Pulse Oximetry 94 08/23/21 11:06 MDM - General Adult Medical Decision Making [56]yo patient w/ hx of prior TBI presenting to the ED with Syncope. No association with chest pain, dyspnea, palpitations, or focal neurological deficits. HDS Neuro intact. Fingerstick wnl. Patient is mildly tachycardiac on arrive. Given history, exam and workup, presentation not consistent with seizures given a short time course, no postictal state, no seizure activity. Low suspicion for acute neurologic catastrophes to include ICH given lack of trauma, risk factors for bleeding diathesis, or neurogenic causes of syncope. Low suspicion for vascular catastrophes to include PE, thoracic aortic dissection, AAA rupture. Presentation not consistent with acute life threatening arrhythmia, structural heart disease, electrical conduction abnormalities, or ACS. Workup: EKG, fingerstick, orthostatics, troponin x 2, EKG x 2, CBC, BMP, CT head, CTA head/neck Intervention: Serial reevaluation, telemetry, PO challenge Findings: EKG showing regular sinus rhythm at HT of 101. Normal axis. No ST elevations/depressions to suggest coronary occlusion. Normal IN, QRS, QT intervals. EKG: No e/o STEMI. No evidence of Brugada?s sign, delta wave, epsilon wave, significantly prolonged QTc, HOCM or malignant arrhythmia. [1:20pm] On reassessment, patient denies any syncope or near syncope episodes in the ER. HR improved with IVF. Telemetry without any dysrhythmia. Patient has been able to tolerate PO and ambulate in the ER without issues. Troponin x 2 wnl. H&H appears to stable. Patient did not have any episodes of light-headedness. CT imaging negative for any acute intracranial or posterior fossa pathologies. On reassessment, patient denies any syncope or near syncope episodes in the ER. Telemetry without any dysrhythmia. Patient has been able to tolerate PO and ambulate in the ER without issues. Delta troponin <4. I performed shared decision-making with patient regarding admission versus discharge today, and patient prefers to be discharged. Given patient's age and syncope, I explained the risks of leaving the hospital today including lethal arrythemia, VA, strokes and even . Patient verbalizes understanding of these discussed risk and elect for the alternative of following up earlier next week for evaluation by Cardiology. Patient verbalizes understanding to return for any worsening symptoms including chest pain, dyspnea, fatigue, arm pain/jaw pain/back pain or any new or concerning issues. Patient is currently HDS, ambulated without any difficulties. I have given patient follow up with our patient case coordinator to be seen by our outpatient Cardiology and a primary care provider for further evaluation of patient's syncope. Patient aware of a call from our patient case coordinator to schedule for appointment(s) and verbalizes understanding of the importance of following up. Disposition: Discharge. Patient is at baseline at this time. Return precautions expressed and understood in person. Advised follow up with a primary care provider or clinic physician in the next 24-48 hours. Given return instructions for any new or concerning symptoms including chest pain, focal neurological deficits, dyspnea, or any new or concerning findings. Lab Data : 08/23/21 10:48 08/23/21 10:48 Radiology Impressions Chest X-Ray 08/23/21 11:10 IMPRESSION: No acute abnormality. Head CT 08/23/21 11:31 IMPRESSION: 1. No evidence of intracranial hemorrhage or mass effect. 2. No acute intracranial findings. Head/Neck CTA 08/23/21 11:31 IMPRESSION: 1. No significant ICA stenosis bilaterally. 2. Left dominant vertebral artery. Both vertebral arteries are patent. 3. Normal intracranial CTA. No flow-limiting stenosis. Laboratory Results WBC 10.8 10^3/uL (4.0-10.0) H 08/23/21 10:48 RBC 4.70 10^6/uL (4.1-5.3) 08/23/21 10:48 Hgb 14.1 g/dL (11.5-15.3) 08/23/21 10:48 Hct 43.0 % (37.0-47.0) 08/23/21 10:48 MCV 91.5 fl (81-99) 08/23/21 10:48 MCH 30.0 pg (28.0-34.0) 08/23/21 10:48 MCHC 32.8 g/dL (30.0-36.0) 08/23/21 10:48 RDW 14.6 % (12.1-15.1) 08/23/21 10:48 Plt Count 279 10^3/cmm (130-400) 08/23/21 10:48 MPV 9.6 fL (7.4-10.4) 08/23/21 10:48 Neut % (Auto) 71.9 % 08/23/21 10:48 Lymph % (Auto) 17.8 % 08/23/21 10:48 [place] % (Auto) 9.0 % 08/23/21 10:48 Eos % (Auto) 0.2 % 08/23/21 10:48 Baso % (Auto) 0.4 % 08/23/21 10:48 Neut # (Auto) 7.78 10^3/uL (1.8-7.7) H 08/23/21 10:48 Lymph # (Auto) 1.9 10^3/uL (0.8-4.8) 08/23/21 10:48 [place] # (Auto) 1.0 10^3/uL (0.2-0.9) H 08/23/21 10:48 Eos # (Auto) 0.0 10^3/uL (0.0-0.8) 08/23/21 10:48 Baso # (Auto) 0.0 10^3/uL (0.0-0.1) 08/23/21 10:48 Nucleated RBC % (auto) 0 % 08/23/21 10:48 Nucleated RBCs # 0.0 /100WBC 08/23/21 10:48 Sodium 135 mmol/L (136-145) L 08/23/21 10:48 Potassium 4.3 mmol/L (3.5-5.1) 08/23/21 10:48 Chloride 101 mmol/L (98-107) 08/23/21 10:48 Carbon Dioxide 24 mmol/L (22-29) 08/23/21 10:48 Anion Gap 14.3 (5-19) 08/23/21 10:48 BUN 10 mg/dL (6-20) 08/23/21 10:48 Creatinine 0.7 mg/dL (0.5-0.9) 08/23/21 10:48 GFR Calculation 86.2 mL/min (90-130) L 08/23/21 10:48 Glucose 83 mg/dL (65-115) 08/23/21 10:48 POC Glucose 90 mg/dL (70-110) 08/23/21 11:12 Calculated Osmolality 278 mOsm/kg (285-295) L 08/23/21 10:48 Calcium 8.8 mg/dL (8.5-10.5) 08/23/21 10:48 Troponin T Baseline 6 ng/L (0-10) 08/23/21 10:48 Troponin T 120 Minute 6.07 ng/L (0-10) 08/23/21 12:29 TSH 1.12 uIU/mL (0.27-4.20) 08/23/21 10:48 Free T4 1.08 ng/dL (0.82-1.77) 08/23/21 10:48 Salicylates < 0.3 mg/dL (3-10) L 08/23/21 10:48 Urine Opiates Screen Negative ng/mL (Negative) 08/23/21 12:49 Acetaminophen < 5.0 ug/mL (10-30) L 08/23/21 10:48 Ur Barbiturates Screen Negative ng/mL (Negative) 08/23/21 12:49 Ur Phencyclidine Scrn Negative ng/mL (Negative) 08/23/21 12:49 Ur Amphetamines Screen Negative ng/mL (Negative) 08/23/21 12:49 U Benzodiazepines Scrn Negative ng/mL (Negative) 08/23/21 12:49 Urine Cocaine Screen Negative ng/mL (Negative) 08/23/21 12:49 U Marijuana (THC) Screen Negative ng/mL (Negative) 08/23/21 12:49 Imaging Data Other Imaging: Radiologist's impression: [facility] [address] [place] [address] CT Scan Report Signed Patient: Hilda Nolan V Unit #: [id number] : 1965 Age/Sex: 56 / F ADM Date: 08/23/21 Loc: ER Room/Bed: Attending Dr: Ordering Provider/Ordering MD: Carlee Jimenez MD Date of Service: 08/23/21 Procedure(s): CT head wo con* [id number] Accession Number(s): [id number] Report Number: [id number] WS: [id number] CT HEAD TECHNIQUE: Noncontrast CT of the head obtained from the skullbase to the vertex. CLINICAL INFORMATION: light-headedness COMPARISON: 3 26,018 DLP: 764.[address] scans at [facility] use at least one of these dose optimization techniques: automated exposure control; mA and/or kV adjustment per patient size (includes targeted exams where dose is matched to clinical indication); or iterative reconstruction. FINDINGS: No evidence of intracranial hemorrhage or mass effect. Ventricular system and basal cisterns are patent. Mild parenchymal volume loss. No extra-axial fluid collections. No evidence of mass or mass effect. Normal dewey-white differentiation. Paranasal sinuses and mastoid air cells are well aerated. .Normal visualized soft tissues. CT/CT head wo con* [id number] IMPRESSION: ? 1.? No evidence of intracranial hemorrhage or mass effect. 2.? No acute intracranial findings. ? Dictated By: García Wood MD Signed By: García Wood MD Signed Date/Time: 08/23/21 1206 DD/ [address] [address] XRay Report Signed Patient: Hilda Nolan V Unit #: [id number] : 1965 Age/Sex: 56 / F ADM Date: 08/23/21 Loc: ER Room/Bed: Attending Dr: Ordering Provider/Ordering MD: Carlee Jimenez MD Date of Service: 08/23/21 Procedure(s): XR chest 1V portable [id number] Accession Number(s): [id number] Report Number: [id number] WS: [id number] XR chest 1V portable [id number] REASON FOR EXAM: chest pain FINDINGS: The chest is unchanged compared to 11/23/2019. The heart and mediastinum are within normal limits. Calcified granulomatous changes in both hemithoraces. No acute pulmonary parenchymal or pleural abnormality. Bony thorax intact. XR/XR chest 1V portable [id number] IMPRESSION: No acute abnormality. ? ? Dictated By: Adrian Amanda Jr, MD Signed By: Adrian Amanda Jr, MD Signed Date/Time: 08/23/21 1141 DD/ 1139 Launch?Image [email or web address] [address] [place] [address] CT Scan Report Signed Patient: Hilda Nolan V Unit #: [id number] : 1965 Age/Sex: 56 / F ADM Date: 08/23/21 Loc: ER Room/Bed: Attending Dr: Ordering Provider/Ordering MD: Carlee Jimenez MD Date of Service: 08/23/21 Procedure(s): CT angio headneck* [id number] Accession Number(s): [id number] Report Number: [id number] WS: [id number] CTA HEAD AND NECK TECHNIQUE: Contrast enhanced CTA of the head and neck with coronal and sagittal reformatted images and maximum intensity projection (MIP) images. NASCET criteria utilized. CLINICAL INFORMATION: light-headedness COMPARISON: None. DLP: 2549.[address] scans at [email or web address] use at least one of these dose optimization techniques: automated exposure control; mA and/or kV adjustment per patient size (includes targeted exams where dose is matched to clinical indication); or iterative reconstruction. FINDINGS: RIGHT: Right common carotid artery is patent. No significant right ICA stenosis. ICA is patent to the skull base. Retropharyngeal course right cervical ICA. LEFT: Left common carotid artery is patent. No significant left ICA stenosis. Left ICA is patent to the skull base. Retropharyngeal course left cervical ICA. Left dominant vertebral artery. Smaller but patent right vertebral artery. Proximal basilar artery is patent. INTRACRANIAL CTA: Basilar artery is patent. Normal vascularity to the RADIO STATION OPERATOR territory bilaterally. Both ICAs are patent at the skull base. Normal vascularity to the JORGE and MCA territories bilaterally. Patent anterior communicating artery. No evidence of flow-limiting stenosis or aneurysm. Mild spondylitic changes cervical spine. Disc osteophyte complexes at C5-C6. Anterior hypertrophic changes C5-C7. Normal visualized dural venous sinuses. CT/CT angio headneck* [id number] IMPRESSION: ? 1.? No significant ICA stenosis bilaterally. 2.? Left dominant vertebral artery. Both vertebral arteries are patent. 3.? Normal intracranial CTA. No flow-limiting stenosis. ? Dictated By: García Wood MD Signed By: García Wood MD Signed Date/Time: 08/23/21 1234 DD/ 1218 Discharge Plan Discharge Patient Disposition: Home Clinical Impression: Syncope Condition: Stable Prescriptions: No Action mirtazapine 45 mg tablet 45 mg PO BEDTIME@1999 Qty: 30 11RF montelukast [Singulair] 10 mg tablet 10 mg PO DAILY@729 Qty: 30 5RF benztropine 1 mg tablet 1 mg PO DAILY@729 Qty: 30 5RF citalopram 40 mg tablet 40 mg PO DAILY Qty: 30 5RF Dexilant 60 mg capsule,biphase delayed releas 60 mg PO DAILY@729 0RF fluticasone propionate 50 mcg/actuation spray,suspension 1 spray intranasal BID Qty: 16 5RF Rx Instructions: administer into each nostril Xanax 0.5 mg tablet 0.5 mg PO BID@ Qty: 60 5RF clozapine 100 mg tablet 100 mg PO BID Qty: 60 11RF Rx Instructions: Take a total of 150mg in the morning and 350mg at night. budesonide-formoterol [Symbicort] 160-4.5 mcg/actuation HFA aerosol inhaler 2 puff inhalation BID Qty: 10.2 0RF cyclobenzaprine 5 mg tablet 5 mg PO TID PRN (Reason: muscle spasm and pain) Qty: 30 1RF clozapine 50 mg tablet 50 mg PO BID Qty: 60 11RF Rx Instructions: Total daily dose of 150mg in AM and 350mg at night. oxybutynin chloride 15 mg tablet extended release 24 hr 15 mg PO DAILY@0730 90 Days Qty: 90 2RF albuterol sulfate 90 mcg/actuation HFA aerosol inhaler See Rx Instructions .ROUTE .COMPLEX Qty: 8.5 5RF Dose Instruction: INHALE 2 PUFFS BY MOUTH EVERY 6 HOURS Rx Instructions: INHALE 2 PUFFS BY MOUTH EVERY 6 HOURS gabapentin 100 mg capsule 100 mg PO TID Qty: 90 5RF tramadol 50 mg tablet 50 mg PO BID 30 Days Qty: 60 2RF prednisone 20 mg tablet See Rx Instructions .ROUTE .COMPLEX Qty: 15 0RF Dose Instruction: TAKE 3 TABS BY MOUTH DAILY FOR ARTHRITIS Rx Instructions: TAKE 3 TABS BY MOUTH DAILY FOR ARTHRITIS docusate sodium 100 mg capsule 100 mg PO BID PRN (Reason: Constipation) 0RF Discharge Orders: Discharge ED (Routine); Ordered 08/23/21 Ordered By: Carlee Jimenez Referrals: Evans Olvera MD [Primary Care Provider] - Discharge Diet: Advance as tolerated Discharge Activity: Increase activity as tolerated Patient Instructions: Syncope (ED), Lightheadedness (ED) Activity Restrictions/Additional Instructions: Please come back to the emergency room for any more breakthrough episodes of passing out. Come back if any weakness in her arms, drooling, difficulty speaking, any neurological symptoms, chest pain/shortness of breath/palpitation or any new or concerning issues. Please do not swim, bathe, operate heavy machinery or drive a vehicle unattended. Our patient case coordinator will have you follow-up with a pattern cleaner and a primary care doctor in the next few days. You would be expected to have a phone call with our patient case coordinator who will put you on the schedule. Coding Level of Care Code ED Servicing Manager for Chg Fwd Exam Comprehensive
[2021-08-23 12:39] LABS: Free T4 Free Thyroxine 1.08 ng/dL (0.82-1.77); Thyroid Stimulating Hormone 1.12 uIU/mL (0.27-4.20)
[2021-08-23 12:40] LABS: Acetaminophen < 5.0 ug/mL (10-30); Salicylate < 0.3 mg/dL (3-10)
[2021-08-23] MEDS: sodium chloride 0.9% 1,000 ML 999 ML IV (12:55)
[2021-08-23 13:04] LABS: Troponin 5 2HR 6.07 ng/L (0-10)
--- NOTE | 2021-08-23 13:10 | ECG_ITS ---
[facility] Test Date: 2021-08-23 Pat Name: Hilda Nolan Department: Room: Gender: Female [place]: : 1965 Requested By: Carlee Jimenez Order Number: [id number] Kimberly MD: Ember Willoughby M.D. Measurements Intervals [place] Rate: 102 P: 56 [place]: 135 QRS: 29 QRSD: 92 T: 42 QT: 346 QTc: 452 Interpretive Statements SINUS TACHYCARDIA Compared to ECG 08/23/2021 11:16:20 No significant changes Electronically Signed On 08-23-2021 17:12:28 VENDING ROUTE SERVICER by Ember Willoughby M.D. [email or web address]
[2021-08-23 13:12] LABS: Amphetamines Screen Urine Negative (Negative); Barbiturates Screen Urine Negative (Negative); Benzodiazepines Screen Urine Negative (Negative); Cocaine Screen Urine Negative (Negative); Opiate Screen Urine Negative (Negative); PCP Screen Urine Negative (Negative); THC Screen Urine Negative (Negative)
[2021-08-23 13:59] LABS: Troponin 5 2HR Delta 0.07 ABS# (0-10)
[2021-08-23 14:07] VITALS: BP 132/98; PULSE 94; RESP 18; O2SAT 97
--- NOTE | 2021-08-23 15:28 | DCPLANNER ---
Addendum entered by Luna Crowley 10/20/21 07:59: Patient had a [facility] appointment at [facility] - patient did attend appointment. Original Note: manager workers compensation had message to schedule a follow up appointment for patient with [facility]. manager workers compensation called [facility], spoke with Inge, gave clinic patients information. A follow up appointment was scheduled for Monday, September 20, 2021 at 9:[address] Willoughby. manager workers compensation called patient to give her the appointment information. manager workers compensation was told to call patient back on 08.24.21. manager workers compensation will speak with patient about follow up appointment with primary care physician when renal case manager calls patient with [facility] appointment.
== END 2021-08-23 14:13 | disposition home or self-care (01) ==
PROVIDERS: Emergency Provider Emergency Medicine; PCP Family Medicine Adult Medicine
DX: R55 Syncope and collapse (principal); J44.9 Chronic obstructive pulmonary disease, unspecified; Z77.22 Contact with and (suspected) exposure to environmental tobacco smoke (acute) (chronic)
CPT/HCPCS: 36415; 36416; 70450; 70496; 70498; 71045; 80048; 80306; 80307; 82962; 84439; 84443; 84484; 85025; 90834; 93005; 96360; 99284; J7030; Q9967

== ENCOUNTER → 2021-09-06 08:13 | Outpatient (BNVA) | payer MEDICARE, MEDICAID, SELFPAY | PROVIDERS: PCP Family Medicine Adult Medicine; Visit Provider Psychiatry & Neurology Psychiatry | DX: F20.89 Other schizophrenia (principal); F33.42 Major depressive disorder, recurrent, in full remission; F17.210 Nicotine dependence, cigarettes, uncomplicated; Z79.899 Other long term (current) drug therapy | CPT/HCPCS: 99214 ==

== ENCOUNTER 2021-09-06 19:09 | Emergency (ER) | payer MEDICARE, MEDICAID, SELFPAY ==
[2021-09-06 19:20] VITALS: BP 135/87; PULSE 106; RESP 14; TEMP 36.7; O2SAT 95; BMI 33.6
--- NOTE | 2021-09-06 19:32 | ED.C_ITS ---
HPI - Psych General: Chief Complaint: Psychiatric Symptoms Stated Complaint: wants to be admitted for psych Time Seen by Provider: 09/06/21 19:26 Source: patient Mode of arrival: ambulatory Limitations: no limitations History of Present Illness: 56-year-old female is very well-known to the ER states that over the last 4 to 5 days she has been having increasing auditory hallucinations. States she is also having some increasing depression she states that she no longer has any family around. States that she felt like her car was talking to her today and decided that she needed to get help. Spent quite some time since she had a psych admission. She states she feels like her meds are no longer working for her. Denies any worsening improving factors. Associated symptoms: Reports auditory hallucinations Review of Systems Const: Denies: fever(s), chills, body aches or change in appetite Eyes: Denies: blurry vision or eye discomfort ENMT: Denies: throat pain or dental pain Card: Denies: chest pain Resp: Denies: dyspnea GI: Denies: abdominal pain, nausea, vomiting or diarrhea : Denies: dysuria Musc: Denies: neck pain or back pain Skin/Breast: Denies: rash Neuro: Denies: headache(s) Psych: Reports: auditory hallucinations Trevon/Lymph: Denies: easy bruising All/Imm: Denies: urticaria PFSH ED PFSH: Medical History Allergic rhinitis Callus of foot Chronic pain disorder Cigarette nicotine dependence COPD (chronic obstructive pulmonary disease) GERD (gastroesophageal reflux disease) Obesity (BMI 30.0-34.9) Osteoarthritis (arthritis due to wear and tear of joints) 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 Other schizophrenia Other stimulant dependence, uncomplicated Pain in abdomen on palpation Shoulder pain, right Sialorrhea Family History Denies family history of Diabetes CAD (coronary artery disease) Cancer Hypertension Stroke Social History Quit status (tobacco): considering quitting Second hand smoke exposure: Yes Alcohol intake: former History of recent travel: No Physical Exam Const: COMMON NORMALS: no acute distress, patient oriented x3 and healthy appearing HENMT: COMMON NORMALS: normocephalic and atraumatic HEAD & SCALP: normocephalic and atraumatic Eye: COMMON NORMALS: Equal, round and reactive pupils present and EOMs intact bilaterally PUPIL: Yes Equal, round and reactive pupils present Neck/C-Spine: COMMON NORMALS: full ROM and supple Chest: COMMONS NORMALS: normal inspection of the chest and normal palpation of entire chest wall Resp: COMMON NORMALS: normal respiratory effort, No retractions, No use of accessory muscles and clear to auscultation bilaterally AUSCULTATION: clear to auscultation bilaterally Cardio: COMMON NORMALS: regular rate, regular rhythm and No murmurs present (Cardio) RATE: regular rate RHYTHM: regular rhythm GI: COMMON NORMALS: Normal to inspection, nondistended, normoactive bowel sounds present, Soft to palpation, non-tender and no masses PALPATION: Yes Soft to palpation Extremity: COMMON NORMALS: normal to inspection and full ROM Neuro: COMMON NORMALS: patient oriented x3, moves all extremities and no focal motor deficits Psych: COMMON NORMALS: mental status grossly normal and cooperative THOUGHT CONTENT: Yes Hallucination(s) present Skin: COMMON NORMALS: no rashes or lesions noted and no wounds GENERAL SKIN EXAM: no rashes or lesions noted Course Vital Signs: Vital signs: Vital Signs Temperature 98.1 F 09/06/21 19:20 Pulse Rate 106 H 09/06/21 19:20 Respiratory Rate 14 09/06/21 19:20 Blood Pressure 135/87 09/06/21 19:20 Pulse Oximetry 95 09/06/21 19:20 [facility] - Psych Medical Decision Making Patient presents with hallucinations is chronic in nature she is not suicidal or homicidal I had patient evaluated by Dr. Martinez who feels she does not meet inpatient criteria and I agree as well she is to follow-up with her psychiatrist outpatient she is not a threat to herself or others she understands agrees to pl an. Lab Data : 09/06/21 15:17 09/06/21 15:17 Laboratory Results WBC 11.2 10^3/uL (4.0-10.0) H 09/06/21 15:17 RBC 4.11 10^6/uL (4.1-5.3) 09/06/21 15:17 Hgb 12.9 g/dL (11.5-15.3) 09/06/21 15:17 Hct 37.9 % (37.0-47.0) 09/06/21 15:17 MCV 92.2 fl (81-99) 09/06/21 15:17 MCH 31.4 pg (28.0-34.0) 09/06/21 15:17 MCHC 34.0 g/dL (30.0-36.0) 09/06/21 15:17 RDW 14.5 % (12.1-15.1) 09/06/21 15:17 Plt Count 284 10^3/cmm (130-400) 09/06/21 15:17 MPV 9.6 fL (7.4-10.4) 09/06/21 15:17 Neut % (Auto) 67.5 % 09/06/21 15:17 Lymph % (Auto) 23.0 % 09/06/21 15:17 Weld % (Auto) 8.1 % 09/06/21 15:17 Eos % (Auto) 0.2 % 09/06/21 15:17 Baso % (Auto) 0.3 % 09/06/21 15:17 Neut # (Auto) 7.54 10^3/uL (1.8-7.7) 09/06/21 15:17 Lymph # (Auto) 2.6 10^3/uL (0.8-4.8) 09/06/21 15:17 Weld # (Auto) 0.9 10^3/uL (0.2-0.9) 09/06/21 15:17 Eos # (Auto) 0.0 10^3/uL (0.0-0.8) 09/06/21 15:17 Baso # (Auto) 0.0 10^3/uL (0.0-0.1) 09/06/21 15:17 Nucleated RBC % (auto) 0 % 09/06/21 15:17 Nucleated RBCs # 0.0 /100WBC 09/06/21 15:17 Sodium 138 mmol/L (136-145) 09/06/21 15:17 Potassium 3.9 mmol/L (3.5-5.1) 09/06/21 15:17 Chloride 101 mmol/L (98-107) 09/06/21 15:17 Carbon Dioxide 25 mmol/L (22-29) 02/15/22 15:17 Anion Gap 15.9 (5-19) 09/06/21 15:17 BUN 8 mg/dL (6-20) 09/06/21 15:17 Creatinine 0.6 mg/dL (0.5-0.9) 09/06/21 15:17 GFR Calculation 103.0 mL/min (90-130) 09/06/21 15:17 Glucose 123 mg/dL (65-115) H 09/06/21 15:17 Calculated Osmolality 286 mOsm/kg (285-295) 09/06/21 15:17 Calcium 8.9 mg/dL (8.5-10.5) 09/06/21 15:17 Total Bilirubin 0.2 mg/dL (0.15-1.2) 09/06/21 15:17 AST 17 U/L (0-32) 09/06/21 15:17 ALT 25 U/L (0-33) 09/06/21 15:17 Alkaline Phosphatase 119 IU/L (35-105) H 09/06/21 15:17 Total Protein 6.7 g/dL (6.6-8.7) 09/06/21 15:17 Albumin 4.4 g/dL (3.5-5.2) 09/06/21 15:17 Globulin 2.3 g/dL (1.3-4.6) 09/06/21 15:17 Salicylates < 0.3 mg/dL (3-10) L 09/06/21 15:17 Urine Opiates Screen Negative ng/mL (Negative) 09/06/21 19:50 Acetaminophen < 5.0 ug/mL (10-30) L 09/06/21 15:17 Ur Barbiturates Screen Negative ng/mL (Negative) 09/06/21 19:50 Ur Phencyclidine Scrn Negative ng/mL (Negative) 09/06/21 19:50 Ur Amphetamines Screen Negative ng/mL (Negative) 09/06/21 19:50 U Benzodiazepines Scrn Positive ng/mL (Negative) H 09/06/21 19:50 Urine Cocaine Screen Negative ng/mL (Negative) 09/06/21 19:50 U Marijuana (THC) Screen Negative ng/mL (Negative) 09/06/21 19:50 Ethyl Alcohol < 10 mg/dL (0-10) 09/06/21 15:17 Discharge Plan Discharge Patient Disposition: Home Clinical Impression: Other schizophrenia Condition: Stable Prescriptions: No Action mirtazapine 45 mg tablet 45 mg PO BEDTIME@1999 Qty: 30 11RF montelukast [Singulair] 10 mg tablet 10 mg PO DAILY@729 Qty: 30 5RF benztropine 1 mg tablet 1 mg PO DAILY@729 Qty: 30 5RF citalopram 40 mg tablet 40 mg PO DAILY Qty: 30 5RF Dexilant 60 mg capsule,biphase delayed releas 60 mg PO DAILY@729 0RF fluticasone propionate 50 mcg/actuation spray,suspension 1 spray intranasal BID Qty: 16 5RF Rx Instructions: administer into each nostril Xanax 0.5 mg tablet 0.5 mg PO BID@729,1999 Qty: 60 5RF clozapine 100 mg tablet 100 mg PO BID Qty: 60 11RF Rx Instructions: Take a total of 150mg in the morning and 350mg at night. budesonide-formoterol [Symbicort] 160-4.5 mcg/actuation HFA aerosol inhaler 2 puff inhalation BID Qty: 10.2 0RF cyclobenzaprine 5 mg tablet 5 mg PO TID PRN (Reason: muscle spasm and pain) Qty: 30 1RF clozapine 50 mg tablet 50 mg PO BID Qty: 60 11RF Rx Instructions: Total daily dose of 150mg in AM and 350mg at night. oxybutynin chloride 15 mg tablet extended release 24 hr 15 mg PO DAILY@0730 90 Days Qty: 90 2RF albuterol sulfate 90 mcg/actuation HFA aerosol inhaler See Rx Instructions .ROUTE .COMPLEX Qty: 8.5 5RF Dose Instruction: INHALE 2 PUFFS BY MOUTH EVERY 6 HOURS Rx Instructions: INHALE 2 PUFFS BY MOUTH EVERY 6 HOURS gabapentin 100 mg capsule 100 mg PO TID Qty: 90 5RF tramadol 50 mg tablet 50 mg PO BID 30 Days Qty: 60 2RF prednisone 20 mg tablet See Rx Instructions .ROUTE .COMPLEX Qty: 15 0RF Dose Instruction: TAKE 3 TABS BY MOUTH DAILY FOR ARTHRITIS Rx Instructions: TAKE 3 TABS BY MOUTH DAILY FOR ARTHRITIS docusate sodium 100 mg capsule 100 mg PO BID PRN (Reason: Constipation) 0RF Discharge Orders: Discharge ED (Routine); Ordered 09/06/21 Ordered By: Kade Smith Referrals: Evans Olvera MD [Primary Care Provider] - Discharge Diet: Advance as tolerated Discharge Activity: Resume usual activity Patient Instructions: Hallucinations (ED) Coding Level of Care Code ED Spout Positioner for Chg Fwd Exam Comprehensive
--- NOTE | 2021-09-06 19:49 | PC.NURSE ---
patient received with c/o family stress and needing to be admitted for auditory hallucinations. denies SI/HI at this time. states maybe medications need to be changed. alert and oriented, calm and cooperative, speech clear, respirations even equal and unlabored.
[2021-09-06 19:56] LABS: Basophils % 0.3 %; Eosinophils % 0.2 %; Hematocrit 37.9 % (37.0-47.0); Hemoglobin 12.9 g/dL (11.5-15.3); Lymphocytes # 2.6 10^3/uL (0.8-4.8); Mean Corpuscular Hemoglobin 31.4 pg (28.0-34.0); Mean Corpuscular Volume 92.2 fl (81-99); Mean Platelet Volume 9.6 fL (7.4-10.4); Monocytes # 0.9 10^3/uL (0.2-0.9); Monocytes % 8.1 %; Neutrophils # 7.54 10^3/uL (1.8-7.7); Neutrophils % 67.5 %; Nucleated Red Blood Cells % 0 %; Platelet Count 284 10^3/cmm (130-400); Red Blood Count 4.11 10^6/uL (4.1-5.3); Red Cell Distribution Width 14.5 % (12.1-15.1); White Blood Count 11.2 10^3/uL (4.0-10.0)
[2021-09-06 20:15] LABS: Alanine Aminotransferase 25 U/L (0-33); Albumin Level 4.4 g/dL (3.5-5.2); Alkaline Phosphatase 119 IU/L (35-105); Anion Gap 15.9 (5-19); Aspartate Amino Transferase 17 U/L (0-32); Blood Urea Nitrogen 8 mg/dL (6-20); Calcium 8.9 mg/dL (8.5-10.5); Carbon Dioxide 25 mmol/L (22-29); Chloride 101 mmol/L (98-107); Globulin 2.3 g/dL (1.3-4.6); Glucose 123 mg/dL (65-115); Osmolality Calculated 286 mOsm/kg (285-295); Potassium 3.9 mmol/L (3.5-5.1); Sodium 138 mmol/L (136-145); Total Bilirubin 0.2 mg/dL (0.15-1.2); Total Protein 6.7 g/dL (6.6-8.7)
[2021-09-06 20:15] LABS: Amphetamines Screen Urine Negative (Negative); Barbiturates Screen Urine Negative (Negative); Benzodiazepines Screen Urine Positive (Negative); Cocaine Screen Urine Negative (Negative); Opiate Screen Urine Negative (Negative); PCP Screen Urine Negative (Negative); THC Screen Urine Negative (Negative)
[2021-09-06 20:21] LABS: Acetaminophen < 5.0 ug/mL (10-30); Alcohol Level < 10 mg/dL (0-10); Salicylate < 0.3 mg/dL (3-10)
[2021-09-06 21:11] VITALS: BP 150/79; PULSE 87; RESP 16; TEMP 36.7; O2SAT 98
== END 2021-09-06 21:13 | disposition home or self-care (01) ==
PROVIDERS: Emergency Provider Emergency Medicine; PCP Family Medicine Adult Medicine
DX: F20.89 Other schizophrenia (principal); J44.9 Chronic obstructive pulmonary disease, unspecified; Z77.22 Contact with and (suspected) exposure to environmental tobacco smoke (acute) (chronic)
CPT/HCPCS: 80053; 80306; 80307; 85025; 99214; 99283

== ENCOUNTER → 2021-09-12 14:16 | Outpatient (BNVA) | payer MEDICARE, MEDICAID, SELFPAY | PROVIDERS: PCP Family Medicine Adult Medicine; Visit Provider Social Worker | DX: F33.42 Major depressive disorder, recurrent, in full remission (principal); F20.89 Other schizophrenia | CPT/HCPCS: 90837; 90834 ==

== ENCOUNTER → 2021-10-17 11:06 | Outpatient (BNVA) | payer MEDICARE, MEDICAID, OTHER, SELFPAY | PROVIDERS: PCP Family Medicine Adult Medicine; Visit Provider Psychiatry & Neurology Psychiatry | DX: F20.89 Other schizophrenia (principal); Z79.899 Other long term (current) drug therapy; F33.42 Major depressive disorder, recurrent, in full remission | CPT/HCPCS: 80061; 83036; 83721; 85007; 85027 ==

== ENCOUNTER → 2021-10-18 08:40 | Outpatient (BNVA) | payer MEDICARE, MEDICAID, SELFPAY | PROVIDERS: PCP Family Medicine Adult Medicine; Visit Provider Internal Medicine Cardiovascular Disease | DX: J44.9 Chronic obstructive pulmonary disease, unspecified (principal); F17.210 Nicotine dependence, cigarettes, uncomplicated; R78.2 Finding of cocaine in blood | CPT/HCPCS: 99204 ==

== ENCOUNTER → 2021-11-03 10:09 | Outpatient (BNVA) | payer MEDICARE, MEDICAID, OTHER, SELFPAY ==
[2021-10-19 14:02] VITALS: BP 132/88; BMI 31.9
== END ==
PROVIDERS: PCP Family Medicine Adult Medicine; Visit Provider Psychiatry & Neurology Psychiatry
DX: F20.89 Other schizophrenia (principal); F33.42 Major depressive disorder, recurrent, in full remission; F17.210 Nicotine dependence, cigarettes, uncomplicated; Z79.899 Other long term (current) drug therapy
CPT/HCPCS: 99214

== ENCOUNTER → 2021-11-16 09:38 | Outpatient (BNVA) | payer MEDICARE, MEDICAID, OTHER, SELFPAY ==
[2021-10-19 14:02] VITALS: BP 132/88; BMI 31.9
== END ==
PROVIDERS: PCP Family Medicine Adult Medicine; Visit Provider Psychiatry & Neurology Psychiatry
DX: F20.89 Other schizophrenia (principal); Z79.899 Other long term (current) drug therapy
CPT/HCPCS: 85007; 85027

== ENCOUNTER → 2021-11-24 10:52 | Outpatient (BNVA) | payer MEDICARE, MEDICAID, SELFPAY ==
[2021-11-23 10:30] VITALS: BP 132/88; BMI 31.9
== END ==
PROVIDERS: PCP Family Medicine Adult Medicine; Visit Provider Social Worker
DX: F20.89 Other schizophrenia (principal)
CPT/HCPCS: 90832

== ENCOUNTER → 2021-12-01 10:13 | Outpatient (BNVA) | payer MEDICARE, MEDICAID, OTHER, SELFPAY ==
[2021-11-23 10:30] VITALS: BP 132/88; BMI 31.9
== END ==
PROVIDERS: PCP Family Medicine Adult Medicine; Visit Provider Psychiatry & Neurology Psychiatry
DX: F20.89 Other schizophrenia (principal); F33.42 Major depressive disorder, recurrent, in full remission; F17.210 Nicotine dependence, cigarettes, uncomplicated; Z79.899 Other long term (current) drug therapy
CPT/HCPCS: 99214

== ENCOUNTER → 2021-12-27 09:33 | Outpatient (BNVA) | payer MEDICARE, MEDICAID, SELFPAY ==
[2021-12-26 08:07] VITALS: BP 132/88; BMI 31.9
== END ==
PROVIDERS: PCP Family Medicine Adult Medicine; Visit Provider Psychiatry & Neurology Psychiatry
DX: F20.89 Other schizophrenia (principal); Z79.899 Other long term (current) drug therapy
CPT/HCPCS: 85007; 85027

== ENCOUNTER 2022-01-12 21:23 | Emergency (ER) | payer MEDICARE, MEDICAID, SELFPAY ==
[2022-01-05 10:41] VITALS: BP 132/88; BMI 31.9
[2022-01-12 22:07] VITALS: BP 138/78; PULSE 80; RESP 18; TEMP 36.7; O2SAT 98; BMI 32.7
--- NOTE | 2022-01-12 22:18 | W.ED.EXTPRO ---
HPI - Extremity Problem General: Chief complaint: Extremity Problem,Nontraumatic Stated complaint: Blister on rt foot Time Seen by Provider: 01/12/22 22:18 History of Present Illness: 56-year-old female comes in today for complaints of a blister to her right foot. Patient had a blister that started about 5 days ago it ruptured and now patient has thickened skin that she would like to have removed. Patient denies being diabetic. There is a noticeable skin flap to an healing blister. Associated symptoms: Deny chest pain Review of Systems General: Reports: 10 or more systems reviewed and unremarkable except in HPI and below Card: Denies: chest pain Resp: Denies: dyspnea Skin/Breast: Reports: changing lesions PFS ED PFSH: Medical History (Updated 01/12/22 @ 22:29 by YAEL Pandey) Allergic rhinitis Chronic bronchitis with COPD (chronic obstructive pulmonary disease) Chronic pain disorder Cigarette nicotine dependence GERD (gastroesophageal reflux disease) Mixed hyperlipidemia Obesity (BMI 30.0-34.9) Osteoarthritis (arthritis due to wear and tear of joints) Other schizophrenia Other stimulant dependence, uncomplicated Prediabetes Psychiatric care Shoulder pain, right Sialorrhea Family History Other CAD (coronary artery disease) Hypertension Denies family history of Diabetes Cancer Stroke Social History Smoking and tobacco status: current every day smoker cigarettes Packs smoked per day: 0.25 Years cigarettes smoked: 39 [ Other cigarette details: 5 daily] Quit status (tobacco): considering quitting Second hand smoke exposure: Yes Alcohol intake: former Year of sobriety/quit date alcohol: 2007 Adopted: No Caregiver/support person: No Lives independently: Yes Household members: none Housing: Apartment Marital status: Marital status details: in 1989 Number of children: 2 Number of grandchildren: 1 Highest education level completed: 12th Grade, No Diploma service: No Current occupational status: disabled Pets and animals: No History of recent travel: No Leisure activites: exercise, reading and other Leisure activities details: watch movies Sexually active: No Current gender identity: Female Jory/Gnosticist: Confucianism Special jory needs: No Agree to transfusion: Yes Financial difficulty paying for basics: Not Very Hard Female Reproductive History: Para: 2 Physical Exam Const: COMMON NORMALS: alert HENMT: COMMON NORMALS: normocephalic HEAD & SCALP: normocephalic Neck/C-Spine: COMMON NORMALS: full ROM Resp: COMMON NORMALS: normal respiratory effort Cardio: COMMON NORMALS: regular rate RATE: regular rate Extremity: RIGHT LOWER EXTREMITY: Yes foot & digits (4 cm dry skin flap to the sole of the foot.) Neuro: SENSORIUM/ORIENTATION: Yes alert Skin: COMMON NORMALS: turgor normal GENERAL SKIN EXAM: turgor normal Course ED course: 2209, skin flap was removed with scissors and pared with a 15 blade scalpel. Wound was then cleaned with alcohol and covered with a nonstick pad. Patient was instructed on care and follow-up as needed. Vital Signs: Vital signs: Vital Signs Temperature 98.0 F 01/12/22 22:07 Pulse Rate 80 01/12/22 22:07 Respiratory Rate 18 01/12/22 22:07 Blood Pressure 138/78 01/12/22 22:07 Pulse Oximetry 98 01/12/22 22:07 MDM - Extremity (Nontraumatic) Medical Decision Making 56-year-old female comes in today with a blister to the sole of her right foot. Patient reported the blister came up about a week ago but has since then dried and half the blister has lifted up off her sole of the foot. Patient is wanting the skin flap removed. Differential diagnosis includes callus, blister, plantars wart. Dry skin flap was removed from the sole of the foot with scissors and a 15 blade scalpel. Patient tolerated well. Recommended monitoring site for signs of infection return as needed. Patient reported understanding agreed to plan. Discharge Plan Discharge Patient Disposition: Home Clinical Impression: Blister (nonthermal), right foot, initial encounter Condition: Stable Prescriptions: No Action Dexilant 60 mg capsule,biphase delayed releas 60 mg PO DAILY@729 0RF Xanax 0.5 mg tablet 0.5 mg PO BID@729,1999 Qty: 60 5RF budesonide-formoterol [Symbicort] 160-4.5 mcg/actuation HFA aerosol inhaler 2 puff inhalation BID Qty: 10.2 0RF acetaminophen 325 mg tablet 325 mg PO QID PRN0RF atorvastatin 20 mg tablet 20 mg PO DAILY Qty: 30 6RF clozapine 100 mg tablet 350 mg PO .hs Qty: 105 11RF clozapine 50 mg tablet 150 mg PO QAM Qty: 90 11RF citalopram 40 mg tablet 40 mg PO DAILY Qty: 30 11RF benztropine 1 mg tablet 1 mg PO DAILY@0730 Qty: 30 11RF mirtazapine 45 mg tablet 45 mg PO .qhs Qty: 30 11RF doxycycline hyclate 100 mg tablet 100 mg PO BID Qty: 20 0RF meloxicam 7.5 mg tablet 7.5 mg PO BID Qty: 60 1RF oxybutynin chloride 15 mg tablet extended release 24hr See Rx Instructions .ROUTE .COMPLEX Qty: 90 2RF Dose Instruction: TAKE 1 TABLET BY MOUTH EVERY DAY AT 7:30AM Rx Instructions: TAKE 1 TABLET BY MOUTH EVERY DAY AT 7:30AM fluticasone propionate 50 mcg/actuation spray,suspension See Rx Instructions .ROUTE .COMPLEX Qty: 16 5RF Dose Instruction: 1 SPRAY IN EACH NOSTRIL TWICE DAILY Rx Instructions: 1 SPRAY IN EACH NOSTRIL TWICE DAILY tramadol 50 mg tablet 50 mg PO BID 30 Days Qty: 60 2RF albuterol sulfate 90 mcg/actuation HFA aerosol inhaler See Rx Instructions .ROUTE .COMPLEX Qty: 8.5 5RF Dose Instruction: INHALE 2 PUFFS BY MOUTH EVERY 6 HOURS Rx Instructions: INHALE 2 PUFFS BY MOUTH EVERY 6 HOURS montelukast 10 mg tablet See Rx Instructions .ROUTE .COMPLEX Qty: 30 5RF Dose Instruction: TAKE 1 TABLET BY MOUTH EVERY DAY AT 7:30AM Rx Instructions: TAKE 1 TABLET BY MOUTH EVERY DAY AT 7:30AM gabapentin 300 mg capsule 300 mg PO BID Qty: 60 5RF docusate sodium 100 mg capsule 100 mg PO BID PRN (Reason: Constipation) 0RF Discharge Orders: Discharge ED (Routine); Ordered 01/12/22 Ordered By: Dominik Oconnor Referrals: Evans Olvera MD [Primary Care Provider] - Discharge Diet: Usual diet Discharge Activity: Increase activity as tolerated Activity Restrictions/Additional Instructions: Monitor site for infection. Follow-up with primary care for further instruction. Return to ER for new concerns. 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
== END 2022-01-12 22:35 | disposition home or self-care (01) ==
PROVIDERS: Emergency Provider Nurse Practitioner Family; PCP Family Medicine Adult Medicine
DX: S90.821A Blister (nonthermal), right foot, initial encounter (principal); X58.XXXA Exposure to other specified factors, initial encounter
CPT/HCPCS: 99282

== ENCOUNTER 2022-01-24 18:30 | Emergency (ER) | payer MEDICARE, MEDICAID, SELFPAY ==
[2022-01-05 10:41] VITALS: BP 132/88; BMI 31.9
[2022-01-24 18:45] VITALS: BMI 33.6
[2022-01-24 18:51] VITALS: BP 97/57; PULSE 105; RESP 15; TEMP 36.6; O2SAT 95
--- NOTE | 2022-01-24 19:07 | W.ED.PSYCHS ---
HPI - Psych General: Chief Complaint: Psychiatric Symptoms Stated Complaint: Chest Pains On and Off\Hearing Voices Time Seen by Provider: 01/24/22 19:06 History of Present Illness: Ms. Nolan is a 56-year-old lady with significant past medical history of fibromyalgia, hyperlipidemia, chronic schizophrenia, COPD, GERD who presents to the emergency department for chest discomfort and mental health exam. She reports longstanding history of mental health problems going back to when she was a child. She does report increased anxiety regarding these lately though denies any other significant change. Chronic auditory hallucinations are unchanged and there are no command hallucinations. No thoughts of harming herself or others. She occasionally gets discomfort in her chest though has difficulty qualifying associated symptoms or characteristics. Patient feels improved upon coming here and talking about what she has been experiencing. She offers good insight into coping mechanisms and has been working on meditation/mindfulness. She last was hospitalized approximately 2 years ago and does not feel that her symptoms are severe enough at this point to need hospitalization. Onset (ago): year(s) Duration: intermittent History of same: Yes Relieving factors: medication Review of Systems General: Reports: 10 or more systems reviewed and unremarkable except in HPI and below PFSH ED PFSH: Medical History Allergic rhinitis Chronic bronchitis with COPD (chronic obstructive pulmonary disease) Chronic pain disorder Cigarette nicotine dependence GERD (gastroesophageal reflux disease) Mixed hyperlipidemia Obesity (BMI 30.0-34.9) Osteoarthritis (arthritis due to wear and tear of joints) Other schizophrenia Other stimulant dependence, uncomplicated Prediabetes Psychiatric care Shoulder pain, right Sialorrhea Family History Other CAD (coronary artery disease) Hypertension Denies family history of Diabetes Cancer Stroke Social History Smoking and tobacco status: current every day smoker cigarettes Packs smoked per day: 0.25 Years cigarettes smoked: 39 [ Other cigarette details: 5 daily] Quit status (tobacco): considering quitting Second hand smoke exposure: Yes Alcohol intake: former Year of sobriety/quit date alcohol: 2007 Adopted: No Caregiver/support person: No Lives independently: Yes Household members: none Housing: Apartment Marital status: Marital status details: in 1989 Number of children: 2 Number of grandchildren: 1 Highest education level completed: 12th Grade, No Diploma service: No Current occupational status: disabled Pets and animals: No History of recent travel: No Leisure activites: exercise, reading and other Leisure activities details: watch movies Sexually active: No Current gender identity: Female Jory/Muslim: Sabianist Special jory needs: No Agree to transfusion: Yes Financial difficulty paying for basics: Not Very Hard Female Reproductive History: Para: 2 Physical Exam Const: COMMON NORMALS: alert GENERAL APPEARANCE: cooperative and well developed HENMT: COMMON NORMALS: normocephalic and atraumatic HEAD & SCALP: normocephalic and atraumatic Eye: COMMON NORMALS: conjunctivae normal CONJUNCTIVA: Yes conjunctivae normal SCLERA: sclerae normal Neck/C-Spine: COMMON NORMALS: supple GENERAL: Yes trachea midline Resp: COMMON NORMALS: normal respiratory effort EFFORT & INSPECTION: Yes able to speak in complete sentences Cardio: COMMON NORMALS: regular rate and regular rhythm RATE: regular rate RHYTHM: regular rhythm GI: COMMON NORMALS: Soft to palpation PALPATION: Yes Soft to palpation and No Tenderness to palpation present (GI) PERCUSSION: normal to percussion Extremity: GENERAL: Yes normal exam except as noted and No edema Neuro: COMMON NORMALS: moves all extremities SENSORIUM/ORIENTATION: Yes alert and No Orientation impaired Psych: COMMON NORMALS: mental status grossly normal and Normal thought process present THOUGHT PROCESS: Normal thought process present Course ED course: - Patient was seen and evaluated by me at bedside - Patient placed on cardiac monitors, IV access obtained - Initial evaluation notable for exam as above, nontoxic - Labs and xrays personally interpreted by me. EKG notable for sinus rhythm with nonspecific ST segment abnormalities. No STEMI. -Anxiolysis given - Labs notable for mild leukocytosis, normal hemoglobin. Metabolic panel with mild evidence of dehydration. Patient can adequately rehydrate. Toxic ingestions negative with exception of benzodiazepines which I gave the patient and the patient takes chronically. - Imaging notable for no lobar consolidation or pneumothorax - Upon serial reexamination after treatment the patient was improved. - Based on patient history, evaluation, and testing as interpreted the most likely cause of the patient's condition is anxiety and chronic mental health concerns - The results of ED evaluation were discussed with the patient including possible disposition options. I recommended admission which the patient declined. She adamantly denies suicidal or homicidal ideation. She exhibits no evidence of clinical intoxication. I do not believe that the patient qualifies for 96-hour hold. I discussed prescriptions and/or symptomatic cares (if applicable) including appropriate and responsible use, followup plan, and return precautions. The patient verbalized understanding and felt safe for discharge. - Patient discharged in satisfactory condition. Note: Click bubbles or prepopulated viramontes in note writing are used for assistance with data collection and billing and are inherently more limited than narrative and other text portions of this note. Please use narrative for additional clinical history and defer to narrative/free test for any case of contradictory information. If information appears in only free text or click bubble it should be considered present or absent as reported. Please contact note real estate underwriter for clarifications of clinical information or contradictory information. MDM is a brief summary, contradictory or erroneous seeming information should be clarified and full note should be reviewed. Vital Signs: Vital signs: Vital Signs Temperature 97.8 F 01/24/22 18:51 Pulse Rate 92 01/24/22 21:22 Respiratory Rate 18 01/24/22 21:22 Blood Pressure 102/62 01/24/22 21:22 Pulse Oximetry 97 01/24/22 21:22 MDM - Psych Medical Decision Making 56-year-old lady with history of chronic schizophrenia presenting for mental health exam. She adamantly denies suicidal or homicidal ideations. No command hallucinations. Patient does not wish to be admitted. ED evaluation without acute pathology requiring intervention. Patient improved upon reassessment. Satisfactory for outpatient management. Medical Records I reviewed the patient's medical records. Lab Data I reviewed the patient's lab results. : 01/24/22 19:58 01/24/22 19:58 Radiology Impressions Chest X-Ray 01/24/22 19:30 IMPRESSION: No acute findings. Laboratory Results WBC 13.2 10^3/uL (4.0-10.0) H 01/24/22 19:58 RBC 4.06 10^6/uL (4.1-5.3) L 01/24/22 19:58 Hgb 12.2 g/dL (11.5-15.3) 01/24/22 19:58 Hct 36.3 % (37.0-47.0) L 01/24/22 19:58 MCV 89.4 fl (81-99) 01/24/22 19:58 MCH 30.0 pg (28.0-34.0) 01/24/22 19:58 MCHC 33.6 g/dL (30.0-36.0) 01/24/22 19:58 RDW 14.3 % (12.1-15.1) 01/24/22 19:58 Plt Count 288 10^3/cmm (130-400) 01/24/22 19:58 MPV 9.5 fL (7.4-10.4) 01/24/22 19:58 Neut % (Auto) 69.3 % 01/24/22 19:58 Lymph % (Auto) 19.5 % 01/24/22 19:58 Castro % (Auto) 8.9 % 01/24/22 19:58 Eos % (Auto) 1.3 % 01/24/22 19:58 Baso % (Auto) 0.2 % 01/24/22 19:58 Neut # (Auto) 9.16 10^3/uL (1.8-7.7) H 01/24/22 19:58 Lymph # (Auto) 2.6 10^3/uL (0.8-4.8) 01/24/22 19:58 Castro # (Auto) 1.2 10^3/uL (0.2-0.9) H 01/24/22 19:58 Eos # (Auto) 0.2 10^3/uL (0.0-0.8) 01/24/22 19:58 Baso # (Auto) 0.0 10^3/uL (0.0-0.1) 01/24/22 19:58 Nucleated RBC % (auto) 0 % 01/24/22 19:58 Nucleated RBCs # 0.0 /100WBC 01/24/22 19:58 Sodium 134 mmol/L (136-145) L 01/24/22 19:58 Potassium 3.9 mmol/L (3.5-5.1) 01/24/22 19:58 Chloride 96 mmol/L (98-107) L 01/24/22 19:58 Carbon Dioxide 22 mmol/L (22-29) 01/24/22 19:58 Anion Gap 19.9 (5-19) H 01/24/22 19:58 BUN 7 mg/dL (6-20) 01/24/22 19:58 Creatinine 0.8 mg/dL (0.5-0.9) 01/24/22 19:58 GFR Calculation 73.9 mL/min (90-130) L 01/24/22 19:58 Glucose 136 mg/dL (65-115) H 01/24/22 19:58 Calculated Osmolality 278 mOsm/kg (285-295) L 01/24/22 19:58 Calcium 9.1 mg/dL (8.5-10.5) 01/24/22 19:58 Total Bilirubin 0.2 mg/dL (0.15-1.2) 01/24/22 19:58 AST 21 U/L (0-32) 01/24/22 19:58 ALT 25 U/L (0-33) 01/24/22 19:58 Alkaline Phosphatase 106 IU/L (35-105) H 01/24/22 19:58 Troponin T Baseline 6 ng/L (0-10) 01/24/22 19:58 Total Protein 6.5 g/dL (6.6-8.7) L 01/24/22 19:58 Albumin 4.2 g/dL (3.5-5.2) 01/24/22 19:58 Globulin 2.3 g/dL (1.3-4.6) 01/24/22 19:58 Lipase 55 U/L (13-60) 01/24/22 19:58 HCG, Qual Negative (Negative) 01/24/22 20:00 Urine Color Yellow (Yellow) 01/24/22 20:00 Urine Appearance Clear (CLEAR) 01/24/22 20:00 Urine pH 5 (5-7) 01/24/22 20:00 Ur Specific [place] 1.015 (1.005-1.030) 01/24/22 20:00 Urine Protein Neg (Negative) 01/24/22 20:00 Urine Glucose (UA) Norm (Normal) 01/24/22 20:00 Urine Ketones Negative (Negative) 01/24/22 20:00 Urine Blood Neg (Negative) 01/24/22 20:00 Urine Nitrate Negative (Negative) 01/24/22 20:00 Urine Bilirubin Neg (Negative) 01/24/22 20:00 Urine Urobilinogen Norm mg/dL (Negative) 01/24/22 20:00 Ur Leukocyte Esterase Negative (Negative) 01/24/22 20:00 Salicylates < 0.3 mg/dL (3-10) L 01/24/22 19:58 Urine Opiates Screen Negative ng/mL (Negative) 01/24/22 20:00 Acetaminophen < 5.0 ug/mL (10-30) L 01/24/22 19:58 Ur Barbiturates Screen Negative ng/mL (Negative) 01/24/22 20:00 Ur Phencyclidine Scrn Negative ng/mL (Negative) 01/24/22 20:00 Ur Amphetamines Screen Negative ng/mL (Negative) 01/24/22 20:00 U Benzodiazepines Scrn Positive ng/mL (Negative) H 01/24/22 20:00 Urine Cocaine Screen Negative ng/mL (Negative) 01/24/22 20:00 U Marijuana (THC) Screen Negative ng/mL (Negative) 01/24/22 20:00 Ethyl Alcohol < 10 mg/dL (0-10) 01/24/22 19:58 Discharge Plan Discharge Patient Disposition: Home Clinical Impression: Chronic schizophrenia, Anxiety Condition: Stable Prescriptions: No Action Dexilant 60 mg capsule,biphase delayed releas 60 mg PO DAILY@0730 0RF budesonide-formoterol [Symbicort] 160-4.5 mcg/actuation HFA aerosol inhaler 2 puff inhalation BID Qty: 10.2 0RF acetaminophen 325 mg tablet 325 mg PO QID PRN0RF atorvastatin 20 mg tablet 20 mg PO DAILY Qty: 30 6RF clozapine 100 mg tablet 350 mg PO .hs Qty: 105 11RF clozapine 50 mg tablet 150 mg PO QAM Qty: 90 11RF citalopram 40 mg tablet 40 mg PO DAILY Qty: 30 11RF benztropine 1 mg tablet 1 mg PO DAILY@0730 Qty: 30 11RF mirtazapine 45 mg tablet 45 mg PO .qhs Qty: 30 11RF oxybutynin chloride 15 mg tablet extended release 24hr See Rx Instructions .ROUTE .COMPLEX Qty: 90 2RF Dose Instruction: TAKE 1 TABLET BY MOUTH EVERY DAY AT 7:30AM Rx Instructions: TAKE 1 TABLET BY MOUTH EVERY DAY AT 7:30AM fluticasone propionate 50 mcg/actuation spray,suspension See Rx Instructions .ROUTE .COMPLEX Qty: 16 5RF Dose Instruction: 1 SPRAY IN EACH NOSTRIL TWICE DAILY Rx Instructions: 1 SPRAY IN EACH NOSTRIL TWICE DAILY tramadol 50 mg tablet 50 mg PO BID 30 Days Qty: 60 2RF albuterol sulfate 90 mcg/actuation HFA aerosol inhaler See Rx Instructions .ROUTE .COMPLEX Qty: 8.5 5RF Dose Instruction: INHALE 2 PUFFS BY MOUTH EVERY 6 HOURS Rx Instructions: INHALE 2 PUFFS BY MOUTH EVERY 6 HOURS montelukast 10 mg tablet See Rx Instructions .ROUTE .COMPLEX Qty: 30 5RF Dose Instruction: TAKE 1 TABLET BY MOUTH EVERY DAY AT 7:30AM Rx Instructions: TAKE 1 TABLET BY MOUTH EVERY DAY AT 7:30AM gabapentin 300 mg capsule 300 mg PO BID Qty: 60 5RF meloxicam 7.5 mg tablet 7.5 mg PO BID Qty: 60 3RF Xanax 0.5 mg tablet 0.5 mg PO BID@0730,2000 Qty: 60 5RF docusate sodium 100 mg capsule 100 mg PO BID PRN (Reason: Constipation) 0RF Discharge Orders: Discharge ED (Routine); Ordered 01/24/22 Ordered By: Jose Rodriguez Referrals: Evans Olvera MD [Primary Care Provider] - Discharge Diet: Usual diet Discharge Activity: Resume usual activity Patient Instructions: Chest Pain (ED), Schizophrenia (ED), Anxiety (ED) Activity Restrictions/Additional Instructions: Thank you for visiting the emergency department. You were seen evaluated for chest discomfort associated with anxiety and chronic schizophrenia. The exact cause of your symptoms is unclear though we are pleased that you had improvement. Please follow-up with your primary care provider and psychiatric care provider. Please call your psychiatric care provider in the morning. Please ensure that you are staying hydrated. Please return to the emergency department for auditory hallucinations telling you to do anything, thoughts of harming or killing yourself or others, or anything else that you are concerned about and feel needs emergency department evaluation. Coding Level of Care Code ED Director Teen Post for 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 Exam Comprehensive
--- NOTE | 2022-01-24 19:30 | XRR_ITS ---
PROCEDURE INFORMATION: Exam: XR Chest Exam date and time: 01/24/2022 7:42 PM Age: 56 years old Clinical indication: Chest wall pain; Additional info: Chest pain TECHNIQUE: Imaging protocol: Radiologic exam of the chest. Views: 1 view. COMPARISON: CR XR chest 1V portable [id number] 08/23/2021 11:27 AM FINDINGS: Lungs: Unremarkable. No consolidation. Pleural spaces: Unremarkable. No pleural effusion. No pneumothorax. Heart/Mediastinum: Unremarkable. No cardiomegaly. Bones/joints: Unremarkable. XR/XR chest 1V portable [id number] IMPRESSION: No acute findings.
--- NOTE | 2022-01-24 19:31 | ECG_ITS ---
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 Measurements Intervals [place] Rate: 96 P: 58 CA: 138 QRS: 46 QRSD: 94 T: 38 QT: 365 QTc: 462 Interpretive Statements SINUS RHYTHM LOW QRS VOLTAGE IN PRECORDIAL LEADS [QRS DEFLECTION < 1.0 mV IN CHEST LEADS] Compared to ECG 08/23/2021 11:45:44 Low QRS voltage now present Sinus tachycardia no longer present Electronically Signed On 01-25-2022 17:58:18 CDT by Edwin You M.D. [id number]
[2022-01-24] MEDS: LORazepam 1 mg Tablet PO (20:01)
[2022-01-24 20:08] LABS: Basophils % 0.2 %; Eosinophils # 0.2 10^3/uL (0.0-0.8); Eosinophils % 1.3 %; Hematocrit 36.3 % (37.0-47.0); Hemoglobin 12.2 g/dL (11.5-15.3); Lymphocytes # 2.6 10^3/uL (0.8-4.8); Lymphocytes % 19.5 %; Mean Corpuscular HGB Conc 33.6 g/dL (30.0-36.0); Mean Corpuscular Volume 89.4 fl (81-99); Mean Platelet Volume 9.5 fL (7.4-10.4); Monocytes # 1.2 10^3/uL (0.2-0.9); Monocytes % 8.9 %; Neutrophils # 9.16 10^3/uL (1.8-7.7); Neutrophils % 69.3 %; Nucleated Red Blood Cells % 0 %; Platelet Count 288 10^3/cmm (130-400); Red Blood Count 4.06 10^6/uL (4.1-5.3); Red Cell Distribution Width 14.3 % (12.1-15.1); White Blood Count 13.2 10^3/uL (4.0-10.0)
[2022-01-24 20:09] LABS: Add Urine Microscopic? NO; Charge for UA Resulting for Rev
[2022-01-24 20:13] LABS: Bilirubin Urine Neg (Negative); Blood Urine Neg (Negative); Glucose Urine UA Norm (Normal); Ketones Urine Negative (Negative); Leukocyte Esterase Urine Negative (Negative); Nitrate Urine Negative (Negative); Protein Urine Neg (Negative); Specific Gravity, Urine 1.015 (1.005-1.030); Urine Appearance Clear (CLEAR); Urine Color Yellow (Yellow); Urobilinogen Urine Norm (Negative); pH Urine 5 (5-7)
[2022-01-24 20:19] LABS: Amphetamines Screen Urine Negative (Negative); Barbiturates Screen Urine Negative (Negative); Benzodiazepines Screen Urine Positive (Negative); Cocaine Screen Urine Negative (Negative); HCG Qualitative Urine. Negative (Negative); Opiate Screen Urine Negative (Negative); PCP Screen Urine Negative (Negative); THC Screen Urine Negative (Negative)
[2022-01-24 20:34] LABS: Troponin(5th) Baseline 6 ng/L (0-10)
[2022-01-24 20:35] LABS: Alanine Aminotransferase 25 U/L (0-33); Albumin Level 4.2 g/dL (3.5-5.2); Alkaline Phosphatase 106 IU/L (35-105); Anion Gap 19.9 (5-19); Aspartate Amino Transferase 21 U/L (0-32); Blood Urea Nitrogen 7 mg/dL (6-20); Calcium 9.1 mg/dL (8.5-10.5); Carbon Dioxide 22 mmol/L (22-29); Chloride 96 mmol/L (98-107); Globulin 2.3 g/dL (1.3-4.6); Glomerular Filtration Rate 73.9 mL/min (90-130); Glucose 136 mg/dL (65-115); Lipase 55 U/L (13-60); Osmolality Calculated 278 mOsm/kg (285-295); Potassium 3.9 mmol/L (3.5-5.1); Sodium 134 mmol/L (136-145); Total Bilirubin 0.2 mg/dL (0.15-1.2); Total Protein 6.5 g/dL (6.6-8.7)
[2022-01-24 20:41] LABS: Acetaminophen < 5.0 ug/mL (10-30); Alcohol Level < 10 mg/dL (0-10); Salicylate < 0.3 mg/dL (3-10)
[2022-01-24 21:22] VITALS: BP 102/62; PULSE 92; RESP 18; O2SAT 97
== END 2022-01-24 21:23 | disposition home or self-care (01) ==
PROVIDERS: Emergency Provider Emergency Medicine; PCP Family Medicine Adult Medicine
DX: F20.9 Schizophrenia, unspecified (principal); F41.9 Anxiety disorder, unspecified
CPT/HCPCS: 71045; 80053; 80306; 80307; 81003; 81025; 83690; 84484; 85007; 85025; 85027; 93005; 99284

== ENCOUNTER 2022-02-03 16:24 | Emergency (ER) | payer MEDICARE, MEDICAID, SELFPAY ==
[2022-01-05 10:41] VITALS: BP 132/88; BMI 31.9
[2022-02-03 17:31] VITALS: BP 93/56; PULSE 108; RESP 16; TEMP 36.9; O2SAT 94
--- NOTE | 2022-02-03 17:54 | XRR_ITS ---
PROCEDURE INFORMATION: Exam: XR Left Hand Exam date and time: 02/03/2022 8:18 PM Age: 56 years old Clinical indication: Injury or trauma; Other: Smashed by door; Blunt trauma (contusions or hematomas); Left; Middle finger; Additional info: Smashed middle finger in door TECHNIQUE: Imaging protocol: Radiologic exam of the Left hand. Views: 3 or more views. COMPARISON: No relevant prior studies available. FINDINGS: Bones/joints: Moderate 1st carpometacarpal joint osteoarthritis. Soft tissues: Normal. XR/XR hand LT min 3V* [id number] IMPRESSION: 1. Negative for fracture or dislocation 2. Moderate 1st carpometacarpal joint osteoarthritis.
--- NOTE | 2022-02-03 20:22 | W.ED.EXTPRO ---
HPI - Extremity Problem General: Chief complaint: Extremity Injury, Upper Stated complaint: smashed finger on left hand Time Seen by Provider: 02/03/22 20:12 History of Present Illness: Patient is a 56-year-old female comes to the ED with left hand injury. Patient says earlier today she smashed her middle finger of left hand into a door. She now has pain, bruising and swelling of the distal end of left middle finger. Pain in finger present and she rates as moderate to severe pain. Full range of motion of the finger. Associated symptoms: Deny chest pain, fever(s) or rash Review of Systems Const: Denies: fever(s), chills or fatigue Eyes: Denies: change in vision or eye discomfort ENMT: Denies: throat pain, odynophagia, nasal discharge or nasal congestion Card: Denies: chest pain, palpitations, edema, swelling of feet/ankles, dyspnea on exertion or orthopnea Resp: Denies: dyspnea, productive cough or non-productive cough GI: Denies: abdominal pain, nausea, vomiting, diarrhea, constipation or hematochezia : Denies: flank pain, dysuria or hematuria Musc: Reports: extremity pain (Left hand middle finger) and extremity swelling (Left hand middle finger); Denies: neck pain or back pain Skin/Breast: Denies: rash or new lesions Neuro: Denies: headache(s), numbness in extremities or weakness in extremities [facility] ED PFSH: Medical History Allergic rhinitis Chronic bronchitis with COPD (chronic obstructive pulmonary disease) Chronic pain disorder Cigarette nicotine dependence GERD (gastroesophageal reflux disease) Mixed hyperlipidemia Obesity (BMI 30.0-34.9) Osteoarthritis (arthritis due to wear and tear of joints) Other schizophrenia Other stimulant dependence, uncomplicated Prediabetes Psychiatric care Shoulder pain, right Sialorrhea Family History Other CAD (coronary artery disease) Hypertension Denies family history of Diabetes Cancer Stroke Social History Smoking and tobacco status: current every day smoker cigarettes Packs smoked per day: 0.25 Years cigarettes smoked: 39 [ Other cigarette details: 5 daily] Quit status (tobacco): considering quitting Second hand smoke exposure: Yes Alcohol intake: former Year of sobriety/quit date alcohol: 2007 Adopted: No Caregiver/support person: No Lives independently: Yes Household members: none Housing: Apartment Marital status: Marital status details: in 1989 Number of children: 2 Number of grandchildren: 1 Highest education level completed: 12th Grade, No Diploma service: No Current occupational status: disabled Pets and animals: No History of recent travel: No Leisure activites: exercise, reading and other Leisure activities details: watch movies Sexually active: No Current gender identity: Female Jory/Hoahaoism: Taoist Special jory needs: No Agree to transfusion: Yes Financial difficulty paying for basics: Not Very Hard Female Reproductive History: Para: 2 Physical Exam Const: COMMON NORMALS: patient oriented x3 HENMT: COMMON NORMALS: normocephalic HEAD & SCALP: normocephalic MOUTH: Normal oral and palatal mucosa present THROAT: posterior oropharynx normal and uvula midline Neck/C-Spine: COMMON NORMALS: supple GENERAL: Yes normal visual inspection Resp: COMMON NORMALS: normal respiratory effort, No retractions, No use of accessory muscles and clear to auscultation bilaterally AUSCULTATION: clear to auscultation bilaterally Cardio: COMMON NORMALS: regular rate, regular rhythm, S1 normal heart sound present, S2 normal heart sound present, No gallops present (Cardio), No clicks present (Cardio), No murmurs present (Cardio) and Peripheral pulses 2+ throughout RATE: regular rate RHYTHM: regular rhythm HEART SOUNDS: S1 normal heart sound present and S2 normal heart sound present PERIPHERAL PULSES: Peripheral pulses 2+ throughout GI: COMMON NORMALS: Normal to inspection, nondistended, normoactive bowel sounds present, Soft to palpation, non-tender and no masses PALPATION: Yes Soft to palpation : COMMON NORMALS: Yes no CVA tenderness BLADDER/KIDNEY EXAM: Yes no CVA tenderness Back/Pelvis: COMMON NORMALS: no CVA tenderness Extremity: NARRATIVE EXTREMITY EXAM: Left hand?middle finger?distal and swelling and ecchymosis noted. Tender to the touch. Full range of motion intact. Neurovascular intact. No nail or nailbed damage noted. No lacerations. Neuro: COMMON NORMALS: patient oriented x3 and moves all extremities Skin: GENERAL SKIN EXAM: dry skin Course Vital Signs: Vital signs: Vital Signs Temperature 98.7 F 02/03/22 21:40 Pulse Rate 92 02/03/22 21:40 Respiratory Rate 17 02/03/22 21:40 Blood Pressure 105/62 02/03/22 21:40 Pulse Oximetry 99 02/03/22 21:40 MDM - Extremity (Nontraumatic) Medical Decision Making Patient is a 56-year-old female comes to the ED with left hand middle finger injury. Patient smashed finger in door. Vitals are stable. Patient has some swelling, tenderness and ecchymosis of the distal edge of finger. No nail or nailbed damage noted. No lacerations. X-ray of left hand showed no acute fractures. Patient diagnosed with finger contusion and was discharged charged home. Told to follow-up with PCP in the next week for reevaluation. Return to ED precautions given. Patient stood agree with plan. Lab Data Radiology Impressions Hand X-Ray 02/03/22 17:54 IMPRESSION: 1. Negative for fracture or dislocation 2. Moderate 1st carpometacarpal joint osteoarthritis. Discharge Plan Discharge Patient Disposition: Home Clinical Impression: Contusion of finger of left hand Qualifiers: Encounter type: initial encounter Finger: middle finger Condition: Stable Prescriptions: No Action Dexilant 60 mg capsule,biphase delayed releas 60 mg PO DAILY@0730 0RF budesonide-formoterol [Symbicort] 160-4.5 mcg/actuation HFA aerosol inhaler 2 puff inhalation BID Qty: 10.2 0RF acetaminophen 325 mg tablet 325 mg PO QID PRN0RF atorvastatin 20 mg tablet 20 mg PO DAILY Qty: 30 6RF clozapine 100 mg tablet 350 mg PO .hs Qty: 105 11RF clozapine 50 mg tablet 150 mg PO QAM Qty: 90 11RF citalopram 40 mg tablet 40 mg PO DAILY Qty: 30 11RF benztropine 1 mg tablet 1 mg PO DAILY@0730 Qty: 30 11RF mirtazapine 45 mg tablet 45 mg PO .qhs Qty: 30 11RF oxybutynin chloride 15 mg tablet extended release 24hr See Rx Instructions .ROUTE .COMPLEX Qty: 90 2RF Dose Instruction: TAKE 1 TABLET BY MOUTH EVERY DAY AT 7:30AM Rx Instructions: TAKE 1 TABLET BY MOUTH EVERY DAY AT 7:30AM fluticasone propionate 50 mcg/actuation spray,suspension See Rx Instructions .ROUTE .COMPLEX Qty: 16 5RF Dose Instruction: 1 SPRAY IN EACH NOSTRIL TWICE DAILY Rx Instructions: 1 SPRAY IN EACH NOSTRIL TWICE DAILY tramadol 50 mg tablet 50 mg PO BID 30 Days Qty: 60 2RF albuterol sulfate 90 mcg/actuation HFA aerosol inhaler See Rx Instructions .ROUTE .COMPLEX Qty: 8.5 5RF Dose Instruction: INHALE 2 PUFFS BY MOUTH EVERY 6 HOURS Rx Instructions: INHALE 2 PUFFS BY MOUTH EVERY 6 HOURS montelukast 10 mg tablet See Rx Instructions .ROUTE .COMPLEX Qty: 30 5RF Dose Instruction: TAKE 1 TABLET BY MOUTH EVERY DAY AT 7:30AM Rx Instructions: TAKE 1 TABLET BY MOUTH EVERY DAY AT 7:30AM gabapentin 300 mg capsule 300 mg PO BID Qty: 60 5RF meloxicam 7.5 mg tablet 7.5 mg PO BID Qty: 60 3RF Xanax 0.5 mg tablet 0.5 mg PO BID@0730,2000 Qty: 60 5RF docusate sodium 100 mg capsule 100 mg PO BID PRN (Reason: Constipation) 0RF Discharge Orders: Discharge ED (Routine); Ordered 02/03/22 Ordered By: Jax Stanley Referrals: Evans Olvera MD [Primary Care Provider] - Discharge Diet: Regular Discharge Activity: Increase activity as tolerated Patient Instructions: Contusion in Adults (ED), Opioid Safety Activity Restrictions/Additional Instructions: Follow-up with medical provider as directed. Take medications as prescribed. Return to the ER or your medical provider if condition worsens. Please read and understand discharge instructions. Thank you for choosing [facility] for your healthcare needs today. Please realize this is an emergency room and that we are providing you with a medical screening exam and this may not be complete and all inclusive of all the testing and or work up that you may need to determine your ailment or severity of your illness. It is very important that you follow up as instructed or that you return to the Emergency Department should you have concerns or if your condition changes or worsens in any way. Coding Level of Care Code ED Caramel Candy Maker for 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 Exam Comprehensive
[2022-02-03] MEDS: HYDROcodone-acetaminophen 7.5-325 mg Tablet 1 TAB PO (20:35)
[2022-02-03 21:40] VITALS: BP 105/62; PULSE 92; RESP 17; TEMP 37.1; O2SAT 99
== END 2022-02-03 21:41 | disposition home or self-care (01) ==
PROVIDERS: Emergency Provider Physician Assistant; PCP Family Medicine Adult Medicine
DX: S60.032A Contusion of left middle finger without damage to nail, initial encounter (principal); J44.9 Chronic obstructive pulmonary disease, unspecified; E78.2 Mixed hyperlipidemia; F17.210 Nicotine dependence, cigarettes, uncomplicated; W23.0XXA Caught, crushed, jammed, or pinched between moving objects, initial encounter
CPT/HCPCS: 73130; 99283

== ENCOUNTER 2022-02-10 13:31 | Emergency (ER) | payer MEDICARE, MEDICAID, SELFPAY ==
[2022-01-05 10:41] VITALS: BP 132/88; BMI 31.9
[2022-02-10 14:43] VITALS: BP 117/68; PULSE 95; RESP 16; TEMP 36.4; O2SAT 96; BMI 33.6
--- NOTE | 2022-02-10 14:46 | ED_ITS ---
HPI - Extremity Injury (Upper) General: Chief Complaint: Extremity Problem,Nontraumatic Stated Complaint: left finger bleeding Time Seen by Provider: 02/10/22 14:44 Source: patient Mode of arrival: ambulatory Limitations: no limitations History of Present Illness: 56-year-old female presents to the ER today for left middle finger bleeding. Patient reports she injured this a week ago. She reports she smashed in the door [place]. Patient reports she was seen in the ER at that time and given a splint, x-rayed and given hydrocodone for pain. Patient reports she took her last hydrocodone yesterday and still has pain today. She reports she is wearing the splint however noticed that there is some blood coming out from under the nail if she squeezes her finger. She reports it is rolling machine tender and throbs at times. Review of Systems General: Reports: 10 or more systems reviewed and unremarkable except in HPI a nd below PFSH ED PFSH: Medical History Allergic rhinitis Chronic bronchitis with COPD (chronic obstructive pulmonary disease) Chronic pain disorder Cigarette nicotine dependence GERD (gastroesophageal reflux disease) Mixed hyperlipidemia Obesity (BMI 30.0-34.9) Osteoarthritis (arthritis due to wear and tear of joints) Other schizophrenia Other stimulant dependence, uncomplicated Prediabetes Psychiatric care Shoulder pain, right Sialorrhea Family History Other CAD (coronary artery disease) Hypertension Denies family history of Diabetes Cancer Stroke Social History Smoking and tobacco status: current every day smoker cigarettes Packs smoked per day: 0.25 Years cigarettes smoked: 39 [ Other cigarette details: 5 daily] Quit status (tobacco): considering quitting Second hand smoke exposure: Yes Alcohol intake: former Year of sobriety/quit date alcohol: 2007 Adopted: No Caregiver/support person: No Lives independently: Yes Household members: none Housing: Apartment Marital status: Marital status details: in 1989 Number of children: 2 Number of grandchildren: 1 Highest education level completed: 12th Grade, No Diploma service: No Current occupational status: disabled Pets and animals: No History of recent travel: No Leisure activites: exercise, reading and other Leisure activities details: watch movies Sexually active: No Current gender identity: Female Jory/Christian: Catholic Special jory needs: No Agree to transfusion: Yes Financial difficulty paying for basics: Not Very Hard Female Reproductive History: Para: 2 Physical Exam Const: COMMON NORMALS: no acute distress, average body habitus, no limitations and alert Resp: COMMON NORMALS: normal respiratory effort EFFORT & INSPECTION: Yes able to speak in complete sentences Cardio: COMMON NORMALS: regular rate and regular rhythm RATE: regular rate RHYTHM: regular rhythm Extremity: OTHER: Patient has very minimal swelling of the left distal aspect of the middle finger. There is injury to that nail noted. Neuro: SENSORIUM/ORIENTATION: Yes alert Psych: COMMON NORMALS: cooperative Skin: OTHER: Patient is noted to have some bleeding under the fingernail on the left middle finger. This occurred 1 week ago. If squeezed there is a small amount of drainage comes out however this does not appear infected. Course ED course: 56-year-old female presents to the ER today for bleeding coming from the left middle finger. Patient injured this 1 week ago and came to the ER at that time and had x-rays done along with a splint placed and hydrocodone given. Patient reports she ran out of hydrocodone yesterday but still has pain. Patient reports when he squeezed the nail blood does come out however there does not appear to be any infection. Patient wondering what she can take for pain or she can have more hydrocodone. There is no need for any more imaging at this time. Vital Signs: Vital signs: Vital Signs Temperature 97.6 F 02/10/22 14:43 Pulse Rate 95 02/10/22 14:43 Respiratory Rate 16 02/10/22 14:43 Blood Pressure 117/68 02/10/22 14:43 Pulse Oximetry 96 02/10/22 14:43 MDM - Extremity Injury (Upper) Medical Decision Making 56-year-old female presents to the ER today for bleeding coming from the left middle finger. Patient injured this 1 week ago and came to the ER at that time and had x-rays done along with a splint placed and hydrocodone given. Patient reports she ran out of hydrocodone yesterday but still has pain. Patient reports when he squeezed the nail blood does come out however there does not appear to be any infection. Patient wondering what she can take for pain or she can have more hydrocodone. There is no need for any more imaging at this time. We changed a splint today. Recommended patient soak in warm Epsom salts. She can take Tylenol for pain as she reports she is allergic to ibuprofen. Follow- up with PCP in 10 to 14 days if no improvement. Critical Care Time Critical Care Time: Critical Care Time: No Discharge Plan Discharge Patient Disposition: Home Clinical Impression: Injury of left middle finger Qualifiers: Encounter type: subsequent encounter Qualified Code(s): S69.92XD - Unspecified injury of left wrist, hand and finger(s), subsequent encounter Condition: Stable Prescriptions: No Action Dexilant 60 mg capsule,biphase delayed releas 60 mg PO DAILY@0730 0RF budesonide-formoterol [Symbicort] 160-4.5 mcg/actuation HFA aerosol inhaler 2 puff inhalation BID Qty: 10.2 0RF acetaminophen 325 mg tablet 325 mg PO QID PRN0RF atorvastatin 20 mg tablet 20 mg PO DAILY Qty: 30 6RF clozapine 100 mg tablet 350 mg PO .hs Qty: 105 11RF clozapine 50 mg tablet 150 mg PO QAM Qty: 90 11RF citalopram 40 mg tablet 40 mg PO DAILY Qty: 30 11RF benztropine 1 mg tablet 1 mg PO DAILY@0730 Qty: 30 11RF mirtazapine 45 mg tablet 45 mg PO .qhs Qty: 30 11RF oxybutynin chloride 15 mg tablet extended release 24hr See Rx Instructions .ROUTE .COMPLEX Qty: 90 2RF Dose Instruction: TAKE 1 TABLET BY MOUTH EVERY DAY AT 7:30AM Rx Instructions: TAKE 1 TABLET BY MOUTH EVERY DAY AT 7:30AM fluticasone propionate 50 mcg/actuation spray,suspension See Rx Instructions .ROUTE .COMPLEX Qty: 16 5RF Dose Instruction: 1 SPRAY IN EACH NOSTRIL TWICE DAILY Rx Instructions: 1 SPRAY IN EACH NOSTRIL TWICE DAILY tramadol 50 mg tablet 50 mg PO BID 30 Days Qty: 60 2RF albuterol sulfate 90 mcg/actuation HFA aerosol inhaler See Rx Instructions .ROUTE .COMPLEX Qty: 8.5 5RF Dose Instruction: INHALE 2 PUFFS BY MOUTH EVERY 6 HOURS Rx Instructions: INHALE 2 PUFFS BY MOUTH EVERY 6 HOURS montelukast 10 mg tablet See Rx Instructions .ROUTE .COMPLEX Qty: 30 5RF Dose Instruction: TAKE 1 TABLET BY MOUTH EVERY DAY AT 7:30AM Rx Instructions: TAKE 1 TABLET BY MOUTH EVERY DAY AT 7:30AM gabapentin 300 mg capsule 300 mg PO BID Qty: 60 5RF meloxicam 7.5 mg tablet 7.5 mg PO BID Qty: 60 3RF Xanax 0.5 mg tablet 0.5 mg PO BID@0730,2000 Qty: 60 5RF docusate sodium 100 mg capsule 100 mg PO BID PRN (Reason: Constipation) 0RF Discharge Orders: Discharge ED (Routine); Ordered 02/10/22 Ordered By: Beth Schmidt Referrals: Evans Olvera MD [Primary Care Provider] - Discharge Diet: Usual diet Discharge Activity: Increase activity as tolerated Patient Instructions: Opioid Safety Activity Restrictions/Additional Instructions: Take Tylenol, 1000 mg 3 times daily as needed for pain. Soak in warm Epsom salt. Wear dressing to avoid bumping. Follow-up with PCP in 10 to 14 days. Coding Level of Care Code ED Top Stop Attacher for 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
== END 2022-02-10 15:12 | disposition home or self-care (01) ==
PROVIDERS: Emergency Provider Physician Assistant; PCP Family Medicine Adult Medicine
DX: S69.92XA Unspecified injury of left wrist, hand and finger(s), initial encounter (principal); J44.9 Chronic obstructive pulmonary disease, unspecified; E78.2 Mixed hyperlipidemia; F17.210 Nicotine dependence, cigarettes, uncomplicated; W23.0XXA Caught, crushed, jammed, or pinched between moving objects, initial encounter
CPT/HCPCS: 99282

== ENCOUNTER 2022-03-15 11:11 | Emergency (ER) | payer MEDICARE, MEDICAID, SELFPAY ==
[2022-01-05 10:41] VITALS: BP 132/88; BMI 31.9
[2022-03-15 11:17] VITALS: BP 114/75; PULSE 111; RESP 16; TEMP 36.3; O2SAT 96
[2022-03-15 12:20] VITALS: BP 119/75; PULSE 101; RESP 16; TEMP 36.3; O2SAT 96
[2022-03-15 12:43] LABS: Bilirubin Urine Neg (Negative); Blood Urine 3+ (Negative); Glucose Urine UA Norm (Normal); Ketones Urine 1+ (Negative); Nitrate Urine Negative (Negative); Protein Urine 1+ (Negative); Urine Appearance Cloudy (CLEAR); Urine Color Yellow (Yellow); Urobilinogen Urine Norm (Negative); pH Urine 6 (5-7)
[2022-03-15 12:44] LABS: Add Urine Culture? Yes; Add Urine Microscopic? YES; Bacteria Urine 1+ /hpf; Leukocyte Esterase Urine 2+ (Negative); RBC Urine >100 /hpf (0-2); WBC Urine 25-40 /hpf (0-5)
--- NOTE | 2022-03-15 12:54 | ED_ITS ---
HPI - Female Genitourinary General: Chief complaint: Urogenital-Female Stated complaint: bleeding Time Seen by Provider: 03/15/22 12:06 History of Present Illness: 56-year-old female presenting today with dysuria and polyuria. Patient notes that when she wiped with a paper towel she had blood on her urine. Notes suprapubic pressure. Denies fevers or chills. She does note some right flank pain. She denies diarrhea. Denies vaginal bleeding. She has no other complaints or concerns. No history of UTIs. Review of Systems General: Reports: 10 or more systems reviewed and unremarkable except in HPI and below PFSH ED PFSH: Medical History Allergic rhinitis Chronic bronchitis with COPD (chronic obstructive pulmonary disease) Chronic pain disorder Cigarette nicotine dependence GERD (gastroesophageal reflux disease) Mixed hyperlipidemia Obesity (BMI 30.0-34.9) Osteoarthritis (arthritis due to wear and tear of joints) Other schizophrenia Other stimulant dependence, uncomplicated Prediabetes Psychiatric care Shoulder pain, right Sialorrhea Family History Other CAD (coronary artery disease) Hypertension Denies family history of Diabetes Cancer Stroke Social History Smoking and tobacco status: current every day smoker cigarettes Packs smoked per day: 0.25 Years cigarettes smoked: 39 [ Other cigarette details: 5 daily] Quit status (tobacco): considering quitting Second hand smoke exposure: Yes Alcohol intake: former Year of sobriety/quit date alcohol: 2007 Adopted: No Caregiver/support person: No Lives independently: Yes Household members: none Housing: Apartment Marital status: Marital status details: in 1989 Number of children: 2 Number of grandchildren: 1 Highest education level completed: 12th Grade, No Diploma service: No Current occupational status: disabled Pets and animals: No History of recent travel: No Leisure activites: exercise, reading and other Leisure activities details: watch movies Sexually active: No Current gender identity: Female Jory/Oriental Orthodox: Moravian Special jory needs: No Agree to transfusion: Yes Financial difficulty paying for basics: Not Very Hard Female Reproductive History: Para: 2 Physical Exam Const: COMMON NORMALS: no acute distress, patient oriented x3 and alert GENERAL APPEARANCE: cooperative ORIENTATION/CONSCIOUSNESS: Yes awake, Yes oriented to person, Yes oriented to place and Yes oriented to time HENMT: COMMON NORMALS: normocephalic, atraumatic, external ears normal, Normal external nose present and moist oral mucous membranes HEAD & SCALP: normal to inspection, normocephalic and atraumatic NOSE: Normal external nose present GENERAL EAR: hearing grossly impaired EXTERNAL EAR: Yes external ears normal Eye: COMMON NORMALS: Equal, round and reactive pupils present, EOMs intact bilaterally, conjunctivae normal and no scleral icterus GENERAL EYE: appearance normal, both eyes and all related structures EYELID: eyelids normal CONJUNCTIVA: Yes conjunctivae normal SCLERA: sclerae normal PUPIL: Yes Equal, round and reactive pupils present Neck/C-Spine: COMMON NORMALS: full ROM, supple and no JVD GENERAL: Yes normal visual inspection Lymph: LYMPHATIC: no lymphadenopathy noted and no lymphedema noted Chest: COMMONS NORMALS: normal inspection of the chest Resp: COMMON NORMALS: normal respiratory effort, No retractions and No use of accessory muscles Cardio: COMMON NORMALS: no JVD, regular rate and regular rhythm RATE: reg ular rate RHYTHM: regular rhythm GI: COMMON NORMALS: Normal to inspection, nondistended, normoactive bowel sounds present : COMMON NORMALS: Yes no CVA tenderness BLADDER/KIDNEY EXAM: Yes no CVA tenderness Back/Pelvis: COMMON NORMALS: no CVA tenderness and thoracic and lumbar spine normal to inspection Extremity: COMMON NORMALS: normal to inspection, full ROM and capillary refill normal GENERAL: Yes normal exam except as noted Neuro: COMMON NORMALS: patient oriented x3, CN's II-XII intact bilaterally, moves all extremities, no focal motor deficits, no sensory deficits noted and gait normal SENSORIUM/ORIENTATION: Yes alert, Yes oriented to person, Yes oriented to place and Yes oriented to time Psych: COMMON NORMALS: mental status grossly normal, Normal thought process present, cooperative and normal affect THOUGHT PROCESS: Normal thought process present Skin: COMMON NORMALS: no rashes or lesions noted and no wounds GENERAL SKIN EXAM: no rashes or lesions noted Course Vital Signs: Vital signs: Vital Signs Temperature 97.4 F L 03/15/22 12:20 Pulse Rate 101 H 03/15/22 12:20 Respiratory Rate 16 03/15/22 12:20 Blood Pressure 119/75 03/15/22 12:20 Pulse Oximetry 96 03/15/22 12:20 Oxygen Delivery Me thod 03/15/22 12:20 MDM - Female Medical Decision Making 56-year-old female presenting today with dysuria polyuria and hematuria. UA is suggestive of UTI. With flank pain we will treat as if kidney infection with Augmentin. Patient was given return precautions. Recommended routine outpatient follow-up. Lab Data Laboratory Results Urine Color Yellow (Yellow) 03/15/22 11:59 Urine Appearance Cloudy (CLEAR) 03/15/22 11:59 Urine pH 6 (5-7) 03/15/22 11:59 Ur Specific [place] 1.000 (1.005-1.030) L 03/15/22 11:59 Urine Protein 1+ (Negative) H 03/15/22 11:59 Urine Glucose (UA) Norm (Normal) 03/15/22 11:59 Urine Ketones 1+ (Negative) H 03/15/22 11:59 Urine Blood 3+ (Negative) H 03/15/22 11:59 Urine Nitrate Negative (Negative) 03/15/22 11:59 Urine Bilirubin Neg (Negative) 03/15/22 11:59 Urine Urobilinogen Norm mg/dL (Negative) 03/15/22 11:59 Ur Leukocyte Esterase 2+ (Negative) H 03/15/22 11:59 Urine RBC >100 /hpf (0-2) H 03/15/22 11:59 Urine WBC 25-40 /hpf (0-5) H 03/15/22 11:59 Ur Squamous Epith Cells 5-10 /hpf (0-5) H 03/15/22 11:59 Amorphous Sediment Not Reportable 03/15/22 11:59 Urine Bacteria 1+ /hpf (NONE) H 03/15/22 11:59 Discharge Plan Discharge Patient Disposition: Home Condition: Stable Prescriptions: New amoxicillin-pot clavulanate 875-125 mg tablet 1 tab PO BID 7 Days Qty: 14 0RF No Action Dexilant 60 mg capsule,biphase delayed releas 60 mg PO DAILY@0730 budesonide-formoterol [Symbicort] 160-4.5 mcg/actuation HFA aerosol inhaler 2 puff inhalation BID Qty: 10.2 0RF acetaminophen 325 mg tablet 325 mg PO QID PRN atorvastatin 20 mg tablet 20 mg PO DAILY Qty: 30 6RF clozapine 100 mg tablet 350 mg PO .hs Qty: 105 11RF clozapine 50 mg tablet 150 mg PO QAM Qty: 90 11RF citalopram 40 mg tablet 40 mg PO DAILY Qty: 30 11RF benztropine 1 mg tablet 1 mg PO DAILY@0730 Qty: 30 11RF mirtazapine 45 mg tablet 45 mg PO .qhs Qty: 30 11RF oxybutynin chloride 15 mg tablet extended release 24hr See Rx Instructions .ROUTE .COMPLEX Qty: 90 2RF Dose Instruction: TAKE 1 TABLET BY MOUTH EVERY DAY AT 7:30AM Rx Instructions: TAKE 1 TABLET BY MOUTH EVERY DAY AT 7:30AM fluticasone propionate 50 mcg/actuation spray,suspension See Rx Instructions .ROUTE .COMPLEX Qty: 16 5RF Dose Instruction: 1 SPRAY IN EACH NOSTRIL TWICE DAILY Rx Instructions: 1 SPRAY IN EACH NOSTRIL TWICE DAILY albuterol sulfate 90 mcg/actuation HFA aerosol inhaler See Rx Instructions .ROUTE .COMPLEX Qty: 8.5 5RF Dose Instruction: INHALE 2 PUFFS BY MOUTH EVERY 6 HOURS Rx Instructions: INHALE 2 PUFFS BY MOUTH EVERY 6 HOURS montelukast 10 mg tablet See Rx Instructions .ROUTE .COMPLEX Qty: 30 5RF Dose Instruction: TAKE 1 TABLET BY MOUTH EVERY DAY AT 7:30AM Rx Instructions: TAKE 1 TABLET BY MOUTH EVERY DAY AT 7:30AM gabapentin 300 mg capsule 300 mg PO BID Qty: 60 5RF meloxicam 7.5 mg tablet 7.5 mg PO BID Qty: 60 3RF Xanax 0.5 mg tablet 0.5 mg PO BID@729,1999 Qty: 60 5RF tramadol 50 mg tablet 50 mg PO BID 30 Days Qty: 60 2RF Rx Instructions: refill on or after each 30 day interval docusate sodium 100 mg capsule 100 mg PO BID PRN (Reason: Constipation) Discharge Orders: Discharge ED (Routine); Ordered 03/15/22 Ordered By: Timmy Hudson Referrals: Evans Olvera MD [Primary Care Provider] - Discharge Diet: Advance as tolerated Discharge Activity: Resume usual activity Patient Instructions: Urinary Tract Infection in Women (ED) Coding Level of Care Code ED Air Conditioning Engineer for 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
[2022-03-15 13:08] VITALS: BP 119/75; PULSE 101; RESP 16; TEMP 36.3; O2SAT 96
== END 2022-03-15 13:12 | disposition home or self-care (01) ==
PROVIDERS: Emergency Provider Emergency Medicine; PCP Family Medicine Adult Medicine
DX: R30.0 Dysuria (principal); J44.9 Chronic obstructive pulmonary disease, unspecified; E78.2 Mixed hyperlipidemia; F17.210 Nicotine dependence, cigarettes, uncomplicated
CPT/HCPCS: 81001; 87077; 87086; 87186; 99283

== ENCOUNTER → 2022-03-23 10:56 | Outpatient (BNVA) | payer MEDICARE, MEDICAID, SELFPAY ==
[2022-01-05 10:41] VITALS: BP 132/88; BMI 31.9
== END ==
PROVIDERS: PCP Family Medicine Adult Medicine; Visit Provider Psychiatry & Neurology Psychiatry
DX: Z79.899 Other long term (current) drug therapy (principal); F20.89 Other schizophrenia; F33.42 Major depressive disorder, recurrent, in full remission; F17.210 Nicotine dependence, cigarettes, uncomplicated; F41.9 Anxiety disorder, unspecified
CPT/HCPCS: 85007; 85027

== ENCOUNTER 2022-03-25 16:51 | Inpatient (IN) | payer MEDICARE, MEDICAID, SELFPAY ==
[2022-01-05 10:41] VITALS: BP 132/88; BMI 31.9
--- NOTE | 2022-03-25 16:52 | ED.C_ITS ---
HPI - Psych General: Chief Complaint: Psychiatric Symptoms Stated Complaint: PSYCH EVAL Time Seen by Provider: 03/25/22 16:52 Limitations: other History of Present Illness: Ms. Nolan is a 56-year-old lady with significant past medical history of psychiatric disorder presenting to the emergency department for psych eval. She endorses wanting to and has life stressors. She is concerned regarding her lack of support system and not feeling well despite taking her medications. History is somewhat limited by tangential and limited insight. Denies new significant medical history. Intensity symptoms is moderate. Course is worsened though unclear how long. No other specific changes in health, exacerbating, or alleviating factors identified. Review of Systems General: Reports: 10 or more systems reviewed and unremarkable except in HPI and below PFSH ED PFSH: Medical History Allergic rhinitis Chronic bronchitis with COPD (chronic obstructive pulmonary disease) Chronic pain disorder Chronic pelvic pain in female Cigarette nicotine dependence GERD (gastroesophageal reflux disease) Mixed hyperlipidemia Obesity (BMI 30.0-34.9) Osteoarthritis (arthritis due to wear and tear of joints) Other schizophrenia Other stimulant dependence, uncomplicated Prediabetes Psychiatric care Shoulder pain, right Sialorrhea Urinary incontinence in female Family History Other CAD (coronary artery disease) Hypertension Denies family history of Diabetes Cancer Stroke Social History Smoking and tobacco status: current every day smoker (5 cigarrettes per day) cigarettes Packs smoked per day: 0.25 Years cigarettes smoked: 39 [ Other cigarette details: 5 daily] Quit status (tobacco): considering quitting Second hand smoke exposure: Yes Alcohol intake: former Year of sobriety/quit date alcohol: 2007 Adopted: No Caregiver/support person: No Lives independently: Yes Household members: none Housing: Apartment Marital status: Marital status details: in 1989 Number of children: 2 Number of grandchildren: 1 Highest education level completed: 12th Grade, No Diploma service: No Current occupational status: disabled Pets and animals: No History of recent travel: No Leisure activites: exercise, reading and other Leisure activities details: watch movies Sexually active: No Current gender identity: Female Jory/Advent: Jehovah'S Witness Special jory needs: No Agree to transfusion: Yes Financial difficulty paying for basics: Not Very Hard Female Reproductive History: Para: 2 Physical Exam Const: COMMON NORMALS: alert GENERAL APPEARANCE: cooperative and well developed HENMT: COMMON NORMALS: normocephalic and atraumatic HEAD & SCALP: normocephalic and atraumatic Eye: COMMON NORMALS: conjunctivae normal CONJUNCTIVA: Yes conjunctivae normal SCLERA: sclerae normal Neck/C-Spine: COMMON NORMALS: supple GENERAL: Yes trachea midline Resp: COMMON NORMALS: clear to auscultation bilaterally EFFORT & INSPECTION: Yes able to speak in complete sentences AUSCULTATION: clear to auscultation bilaterally Cardio: COMMON NORMALS: regular rate and regular rhythm RATE: regular rate RHYTHM: regular rhythm GI: PALPATION: No Tenderness to palpation present (GI) Extremity: GENERAL: Yes normal exam except as noted and No edema Neuro: COMMON NORMALS: moves all extremities SENSORIUM/ORIENTATION: Yes alert and No Orientation impaired Psych: INSIGHT: Limited insight present (Psych) JUDGEMENT: Limited judgement present (Psych) Course ED course: - Patient was seen and evaluated by me at bedside -Vital signs obtained - Initial evaluation notable for exam as above - Labs personally interpreted by me - Labs notable for mild leukocytosis without focal infectious symptoms on history. No acute metabolic derangement to explain symptoms. No UTI. Negative toxic ingestions. -Based on ED evaluation at this point there is no obvious condition that would preclude the patient from inpatient management of psychiatric symptoms. -Discussed with Dr. Hidalgo of the psychiatry service and patient to be admitted to neuropsych unit. Note: Click bubbles or prepopulated viramontes in note writing are used for assistance with data collection and billing and are inherently more limited than narrative and other text portions of this note. Please use narrative for additional clinical history and defer to narrative/free test for any case of contradictory information. If information appears in only free text or click bubble it should be considered present or absent as reported. Please contact note card writer hand for clarifications of clinical information or contradictory information. MDM is a brief summary, contradictory or erroneous seeming information should be clarified and full note should be reviewed. Vital Signs: Vital signs: Vital Signs Temperature 98 F 03/28/22 15:20 Pulse Rate 104 H 03/28/22 15:20 Respiratory Rate 18 03/28/22 15:20 Blood Pressure 91/56 03/28/22 15:20 Pulse Oximetry 94 03/28/22 15:20 Oxygen Delivery Me thod 03/28/22 13:50 MDM - Psych Medical Decision Making 56-year-old lady presenting with psychiatric concerns. Satisfactory for inpatient management in neuropsych unit Medical Records I reviewed the patient's medical records. Lab Data I reviewed the patient's lab results. : 03/25/22 17:40 03/25/22 17:40 Laboratory Results WBC 13.8 10^3/uL (4.0-10.0) H 03/25/22 17:40 RBC 4.29 10^6/uL (4.1-5.3) 03/25/22 17:40 Hgb 13.0 g/dL (11.5-15.3) 03/25/22 17:40 Hct 40.3 % (37.0-47.0) 03/25/22 17:40 MCV 93.9 fl (81-99) 03/25/22 17:40 MCH 30.3 pg (28.0-34.0) 03/25/22 17:40 MCHC 32.3 g/dL (30.0-36.0) 03/25/22 17:40 RDW 13.6 % (12.1-15.1) 03/25/22 17:40 Plt Count 299 10^3/cmm (130-400) 03/25/22 17:40 MPV 9.5 fL (7.4-10.4) 03/25/22 17:40 Neut % (Auto) 72.2 % 03/25/22 17:40 Lymph % (Auto) 18.4 % 03/25/22 17:40 Mcnairy % (Auto) 7.5 % 03/25/22 17:40 Eos % (Auto) 0.9 % 03/25/22 17:40 Baso % (Auto) 0.3 % 03/25/22 17:40 Neut # (Auto) 9.96 10^3/uL (1.8-7.7) H 03/25/22 17:40 Lymph # (Auto) 2.5 10^3/uL (0.8-4.8) 03/25/22 17:40 Mcnairy # (Auto) 1.0 10^3/uL (0.2-0.9) H 03/25/22 17:40 Eos # (Auto) 0.1 10^3/uL (0.0-0.8) 03/25/22 17:40 Baso # (Auto) 0.0 10^3/uL (0.0-0.1) 03/25/22 17:40 Nucleated RBC % (auto) 0 % 03/25/22 17:40 Nucleated RBCs # 0.0 /100WBC 03/25/22 17:40 Sodium 140 mmol/L (136-145) 03/25/22 17:40 Potassium 4.4 mmol/L (3.5-5.1) 03/25/22 17:40 Chloride 104 mmol/L (98-107) 03/25/22 17:40 Carbon Dioxide 24 mmol/L (22-29) 03/25/22 17:40 Anion Gap 16.4 (5-19) 03/25/22 17:40 BUN 8 mg/dL (6-20) 03/25/22 17:40 Creatinine 0.6 mg/dL (0.5-0.9) 03/25/22 17:40 GFR Calculation 103.0 mL/min (90-130) 03/25/22 17:40 Glucose 126 mg/dL (65-115) H 03/25/22 17:40 Calculated Osmolality 290 mOsm/kg (285-295) 03/25/22 17:40 Calcium 9.5 mg/dL (8.5-10.5) 03/25/22 17:40 Total Bilirubin 0.2 mg/dL (0.15-1.2) 03/25/22 17:40 AST 19 U/L (0-32) 03/25/22 17:40 ALT 19 U/L (0-33) 03/25/22 17:40 Alkaline Phosphatase 121 U/L (35-105) H 03/25/22 17:40 Total Protein 7.0 g/dL (6.6-8.7) 03/25/22 17:40 Albumin 4.5 g/dL (3.5-5.2) 03/25/22 17:40 Globulin 2.5 g/dL (1.3-4.6) 03/25/22 17:40 TSH 1.33 uIU/mL (0.27-4.20) 03/25/22 17:40 Urine Color Colorless (Yellow) 03/25/22 17:19 Urine Appearance Clear (CLEAR) 03/25/22 17:19 Urine pH 6 (5-7) 03/25/22 17:19 Ur Specific South Range 1.005 (1.005-1.030) 03/25/22 17:19 Urine Protein Neg (Negative) 03/25/22 17:19 Urine Glucose (UA) Norm (Normal) 03/25/22 17:19 Urine Ketones Negative (Negative) 03/25/22 17:19 Urine Blood Neg (Negative) 03/25/22 17:19 Urine Nitrate Negative (Negative) 03/25/22 17:19 Urine Bilirubin Neg (Negative) 03/25/22 17:19 Urine Urobilinogen Norm mg/dL (Negative) 03/25/22 17:19 Ur Leukocyte Esterase Negative (Negative) 03/25/22 17:19 Salicylates < 0.3 mg/dL (3-10) L 03/25/22 17:40 Urine Opiates Screen Negative ng/mL (Negative) 03/25/22 17:19 Acetaminophen < 5.0 ug/mL (10-30) L 03/25/22 17:40 Ur Barbiturates Screen Negative ng/mL (Negative) 03/25/22 17:19 Ur Phencyclidine Scrn Negative ng/mL (Negative) 03/25/22 17:19 Ur Amphetamines Screen Negative ng/mL (Negative) 03/25/22 17:19 U Benzodiazepines Scrn Negative ng/mL (Negative) 03/25/22 17:19 Urine Cocaine Screen Negative ng/mL (Negative) 03/25/22 17:19 U Marijuana (THC) Screen Negative ng/mL (Negative) 03/25/22 17:19 Ethyl Alcohol < 10 mg/dL (0-10) 03/25/22 17:40 Discharge Plan Discharge Patient Disposition: Admitted As Inpatient Admit Provider: Elton Hidalgo Clinical Impression: Other schizophrenia, Suicidal ideation, Acute anxiety Condition: Stable Discharge Diet: Advance as tolerated and Resume prior tube feeds Discharge Activity: Resume usual activity Coding Level of Care Code ED Broomcorn Sorter for 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
[2022-03-25 17:05] VITALS: BP 137/84; PULSE 106; RESP 16; TEMP 36.9; O2SAT 98
[2022-03-25 17:36] LABS: Add Urine Microscopic? NO; Charge for UA Resulting for Rev
[2022-03-25 17:40] LABS: Bilirubin Urine Neg (Negative); Blood Urine Neg (Negative); Glucose Urine UA Norm (Normal); Ketones Urine Negative (Negative); Leukocyte Esterase Urine Negative (Negative); Nitrate Urine Negative (Negative); Protein Urine Neg (Negative); Specific Gravity, Urine 1.005 (1.005-1.030); Urine Appearance Clear (CLEAR); Urine Color Colorless (Yellow); Urobilinogen Urine Norm (Negative); pH Urine 6 (5-7)
[2022-03-25 17:45] VITALS: BP 137/84; PULSE 106; RESP 16; O2SAT 98
[2022-03-25 17:47] LABS: Basophils % 0.3 %; Eosinophils # 0.1 10^3/uL (0.0-0.8); Eosinophils % 0.9 %; Hematocrit 40.3 % (37.0-47.0); Lymphocytes # 2.5 10^3/uL (0.8-4.8); Lymphocytes % 18.4 %; Mean Corpuscular HGB Conc 32.3 g/dL (30.0-36.0); Mean Corpuscular Hemoglobin 30.3 pg (28.0-34.0); Mean Corpuscular Volume 93.9 fl (81-99); Mean Platelet Volume 9.5 fL (7.4-10.4); Monocytes % 7.5 %; Neutrophils # 9.96 10^3/uL (1.8-7.7); Neutrophils % 72.2 %; Nucleated Red Blood Cells % 0 %; Platelet Count 299 10^3/cmm (130-400); Red Blood Count 4.29 10^6/uL (4.1-5.3); Red Cell Distribution Width 13.6 % (12.1-15.1); White Blood Count 13.8 10^3/uL (4.0-10.0)
[2022-03-25 17:48] LABS: Amphetamines Screen Urine Negative (Negative); Barbiturates Screen Urine Negative (Negative); Benzodiazepines Screen Urine Negative (Negative); Cocaine Screen Urine Negative (Negative); Opiate Screen Urine Negative (Negative); PCP Screen Urine Negative (Negative); THC Screen Urine Negative (Negative)
[2022-03-25 18:30] LABS: Alanine Aminotransferase 19 U/L (0-33); Albumin Level 4.5 g/dL (3.5-5.2); Alkaline Phosphatase 121 U/L (35-105); Aspartate Amino Transferase 19 U/L (0-32); Blood Urea Nitrogen 8 mg/dL (6-20); Calcium 9.5 mg/dL (8.5-10.5); Carbon Dioxide 24 mmol/L (22-29); Chloride 104 mmol/L (98-107); Globulin 2.5 g/dL (1.3-4.6); Glucose 126 mg/dL (65-115); Osmolality Calculated 290 mOsm/kg (285-295); Sodium 140 mmol/L (136-145); Thyroid Stimulating Hormone 1.33 uIU/mL (0.27-4.20); Total Bilirubin 0.2 mg/dL (0.15-1.2)
[2022-03-25 18:59] LABS: Acetaminophen < 5.0 ug/mL (10-30); Alcohol Level < 10 mg/dL (0-10); Anion Gap 16.4 (5-19); Potassium 4.4 mmol/L (3.5-5.1); Salicylate < 0.3 mg/dL (3-10)
[2022-03-25] MEDS: gabapentin 300 mg Capsule PO (20:03)
[2022-03-25] MEDS: nicotine 21 mg Patch 1 PATCH TRANSDERMA (20:04)
[2022-03-25] MEDS: mirtazapine 15 mg Tablet 45 MG PO (20:55)
[2022-03-25] MEDS: oxybutynin 5 mg Tablet 15 MG PO (20:56)
[2022-03-25] MEDS: TRAMadol 50 mg Tablet PO (21:07)
[2022-03-25] MEDS: LORazepam 0.5 mg Tablet PO (21:07)
[2022-03-25 23:10] VITALS: BP 138/85; PULSE 86; RESP 18; TEMP 36.7; O2SAT 96
[2022-03-25 23:24] VITALS: BMI 33.0
[2022-03-25 23:38] VITALS: BP 138/85; PULSE 86; RESP 18; TEMP 36.7; O2SAT 96
[2022-03-26 06:00] VITALS: BP 104/71; PULSE 83; RESP 16; TEMP 36.5; O2SAT 97
[2022-03-26] MEDS: LORazepam 0.5 mg Tablet PO (08:26)
[2022-03-26] MEDS: gabapentin 300 mg Capsule PO ×2 (08:26→17:27)
[2022-03-26] MEDS: meloxicam 7.5 mg tablet PO ×2 (08:26→17:27)
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
[2022-03-26] MEDS: TRAMadol 50 mg Tablet PO ×2 (11:00→21:04)
[2022-03-26] MEDS: montelukast sodium 10 mg Tablet PO (11:01)
[2022-03-26] MEDS: cloZAPine 100 mg Tablet 150 MG PO (11:01)
[2022-03-26 13:44] VITALS: BP 102/73; PULSE 97; RESP 15; TEMP 36.7
[2022-03-26] MEDS: docusate sodium 100 mg Capsule PO (17:27)
[2022-03-26] MEDS: fluticasone nasal spray 16gm Btl 1 SPRAY INTRANASAL (17:27)
[2022-03-26] MEDS: albuterol 8 gm MDI 2 PUFF INHALATION (19:10)
[2022-03-26] MEDS: nicotine 2 mg Gum BUCCAL (19:42)
[2022-03-26 20:10] VITALS: PULSE 80; RESP 16; O2SAT 96
[2022-03-26 20:16] VITALS: BP 107/74; PULSE 93; RESP 17; TEMP 36.8; O2SAT 95
[2022-03-26] MEDS: cloZAPine 100 mg Tablet 350 MG PO (20:50)
[2022-03-26] MEDS: oxybutynin 5 mg Tablet 15 MG PO (20:50)
[2022-03-26] MEDS: mirtazapine 15 mg Tablet 45 MG PO (20:50)
[2022-03-27 06:00] VITALS: BP 109/73; PULSE 90; RESP 16; TEMP 36.6; O2SAT 94
[2022-03-27] MEDS: citalopram 20 mg Tablet 40 MG PO (08:08)
[2022-03-27] MEDS: atorvastatin 40 mg Tablet 20 MG PO (08:08)
[2022-03-27] MEDS: docusate sodium 100 mg Capsule PO ×2 (08:09→18:04)
[2022-03-27] MEDS: montelukast sodium 10 mg Tablet PO (08:09)
[2022-03-27] MEDS: meloxicam 7.5 mg tablet PO ×2 (08:09→18:06)
[2022-03-27] MEDS: cloZAPine 100 mg Tablet 150 MG PO (08:09)
[2022-03-27] MEDS: gabapentin 300 mg Capsule PO ×2 (08:10→18:04)
[2022-03-27] MEDS: benztropine 1 mg Tablet PO (08:10)
[2022-03-27] MEDS: pantoprazole DR 40 mg Tablet PO (08:10)
[2022-03-27] MEDS: albuterol 8 gm MDI 2 PUFF INHALATION ×2 (08:14→20:21)
[2022-03-27 08:16] VITALS: PULSE 100; RESP 16; O2SAT 94
[2022-03-27] MEDS: TRAMadol 50 mg Tablet PO ×2 (08:24→20:54)
[2022-03-27] MEDS: fluticasone nasal spray 16gm Btl 1 SPRAY INTRANASAL ×2 (08:28→18:06)
[2022-03-27] MEDS: nicotine 21 mg Patch 1 PATCH TRANSDERMA (08:41)
[2022-03-27] MEDS: hyDROXYzine 25 mg Capsule 50 MG PO (10:36)
[2022-03-27] MEDS: acetaminophen 325 mg Tablet 650 MG PO ×2 (12:19→22:38)
[2022-03-27] MEDS: LORazepam 0.5 mg Tablet PO (13:25)
[2022-03-27 14:00] VITALS: BP 99/66; PULSE 92; RESP 18; TEMP 36.6; O2SAT 96
--- NOTE | 2022-03-27 19:23 | W.PM.NPUPNS ---
Subjective NPU Subjective: 56-year-old white female with a history of schizophrenia and major depressive disorder admitted with increased anxiety and vague suicidal ideation. Patient minimized any suicidal ideation at this time. She had reported feeling worried about her future. She states that she has been doing better with her medications. She stated that she did not wish to have so much involvement by treatment team to help her manage her illness. She reports that she wishes to manage this on her own. She reported adequate sleep last night. She denied any auditory hallucinations and states that she has been feeling less paranoid when taking her Clozaril as prescribed. No worsening anxiety symptoms endorsed. Mental Status Exam MSE Comments: She is a disheveled white female who appeared her stated age she had good eye contact and no evidence of any abnormal involuntary motor movements tics or tremors appreciated. Her mood was described as okay. Her affect appeared restricted in range. her thought process was tangential. Her thought content showed no active homicidal ideation and she endorsed no suicidal ideation. Her attention span appeared fair. Her insight was poor. Her judgment was poor. Her impulse control appeared limited. Recent and remote memory appeared grossly intact. She was alert and oriented to person place and time. There was no clear evidence of delusional thinking and she did not appear to be responding to internal stimuli. Vitals/I&O/Wt Last Vital Signs Temp 97.8 F 03/27/22 14:00 Pulse 92 03/27/22 14:00 Resp 18 03/27/22 14:00 BP 99/66 03/27/22 14:00 Pulse Ox 96 03/27/22 14:00 O2 Del Method 03/27/22 14:00 Weight last 48 hrs Weight 82.1 kg Weight 82.1 kg Data NPU : 03/25/22 17:40 03/25/22 17:40 A&P Assessment and plan (1) Suicidal ideation: Status: Acute (2) Anxiety: Status: Acute (3) Depression: Status: Acute (4) Schizophrenia: Status: Acute Plan Patient is a 56-year-old white female with a history of schizoaffective disorder currently receiving intensive supportive services through the [facility] on Clozaril and other psychotropic medications admitted with increased anxiety and vague complaints. Patient will be restarted on her medications at this time. 1. Continued concern regarding multiple drug-drug interactions, Celexa, Remeron, Tramadol and clozaril have combined risks of increased risk of serotonin syndrome. Reduce Remeron to 30mg at night. 2. Encourage individual, group and milieu therapy 3. Continue q-15 minute check for safety 4. Recommend sober living treatment at the highest level of care to which the patient is willing to commit. Involuntary Hold Information 96 Hour Hold: 96 Hour Involuntary Admission: Yes 96 Hour Hold Ending Date: 03/31/22 96 Hour Hold Ending Time: 22:40 Attestations NPU Medical Necessity Statement*: Inpatient hospitalization is medically necessary and the clinically appropriate intervention at this time. We will monitor medications and make changes as indicated. Patient will be in the hospital with likely length of stay is two to three days. Coding Level of Care Code Established Pt Acute Intraoperative Neuro Tech for 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 Patient Type Established History Problem Focused Exam Problem Focused Medical Decision Making Straight Forward Diagnoses Suicidal ideation R45.851 Anxiety F41.9 Depression F32.A Schizophrenia F20.9
--- NOTE | 2022-03-27 19:38 | PC.NURSE ---
pt has been at nurse's station interrupting nurse conversations and paranoid that staff is talking about her. Pt redirected and it was explained that we were not discussing her or her care and that other patient information is confidential. patient is difficult to redirect at this time and continues to talk to nurses about why they were typing and were they doing a report on her. Patient is hyperfocused on what nurses are doing and talking about. this nurse went to patient room with her to talk and she was extremely tangential and difficult to assess. Patient was perseverating on staff filing stuff on her and that we didn't appreciate people with traumatic brain injuries.
[2022-03-27 20:10] LABS: Urine Appearance Cloudy (CLEAR); Urine Color Straw (Yellow); pH Urine 5 (5-7)
[2022-03-27 20:11] LABS: Add Urine Microscopic? YES; Bacteria Urine 1+ /hpf; Bilirubin Urine Neg (Negative); Blood Urine 2+ (Negative); Glucose Urine UA Norm (Normal); Ketones Urine Negative (Negative); Leukocyte Esterase Urine 2+ (Negative); Nitrate Urine Negative (Negative); Protein Urine Neg (Negative); RBC Urine 0-4 /hpf (0-2); Squamous Epithelial Cell Urine 0-4 /hpf (0-5); Urobilinogen Urine Norm (Negative); WBC Urine 25-40 /hpf (0-5)
[2022-03-27 20:12] LABS: Add Urine Culture? Yes
[2022-03-27 20:20] VITALS: PULSE 91; RESP 16; O2SAT 98
[2022-03-27] MEDS: mirtazapine 15 mg Tablet 30 MG PO (20:55)
[2022-03-27] MEDS: oxybutynin 5 mg Tablet 15 MG PO (20:57)
[2022-03-27] MEDS: cloZAPine 100 mg Tablet 350 MG PO (20:57)
[2022-03-27 22:00] VITALS: BP 103/72; PULSE 91; RESP 20; TEMP 36.3; O2SAT 95
[2022-03-28 06:00] VITALS: BP 123/80; PULSE 96; RESP 20; TEMP 36.9; O2SAT 96
[2022-03-28 08:00] VITALS: PULSE 96; RESP 20; O2SAT 96
[2022-03-28] MEDS: levoFLOXacin 750 mg Tablet PO (08:19)
[2022-03-28] MEDS: docusate sodium 100 mg Capsule PO (08:20)
[2022-03-28] MEDS: atorvastatin 40 mg Tablet 20 MG PO (08:20)
[2022-03-28] MEDS: montelukast sodium 10 mg Tablet PO (08:20)
[2022-03-28] MEDS: cloZAPine 100 mg Tablet 150 MG PO (08:23)
[2022-03-28] MEDS: pantoprazole DR 40 mg Tablet PO (08:24)
[2022-03-28] MEDS: gabapentin 300 mg Capsule PO (08:24)
[2022-03-28] MEDS: citalopram 20 mg Tablet 40 MG PO (08:24)
[2022-03-28] MEDS: meloxicam 7.5 mg tablet PO (08:24)
[2022-03-28] MEDS: benztropine 1 mg Tablet PO (08:24)
[2022-03-28] MEDS: TRAMadol 50 mg Tablet PO (08:25)
[2022-03-28] MEDS: LORazepam 0.5 mg Tablet PO (08:25)
[2022-03-28] MEDS: fluticasone nasal spray 16gm Btl 1 SPRAY INTRANASAL (08:27)
[2022-03-28] MEDS: albuterol 8 gm MDI 2 PUFF INHALATION (09:21)
[2022-03-28] MEDS: acetaminophen 325 mg Tablet 650 MG PO (12:14)
[2022-03-28] MEDS: cetylpyridinium Lozenge 1 EACH MUCOUS MEM (13:23)
[2022-03-28 13:50] VITALS: BP 91/56; PULSE 104; RESP 18; TEMP 36.6; O2SAT 94
[2022-03-28] MEDS: OLANZapine 5 mg ODT PO (14:05)
--- NOTE | 2022-03-28 14:12 | DCPLANNER ---
IMM completed on 03/28/22 @ 8207. Pt was given a copy of rights.
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
[2022-03-28 15:20] VITALS: BP 91/56; PULSE 104; RESP 18; TEMP 36.6; O2SAT 94
== END 2022-03-28 15:30 | disposition home or self-care (01) | DRG 885 ==
LOC: ER 20:13 → NP 21:54
PROVIDERS: Admitting Provider Psychiatry & Neurology Psychiatry; Emergency Provider Emergency Medicine; PCP Family Medicine Adult Medicine; Visit Provider Psychiatry & Neurology Psychiatry
DX: F25.9 Schizoaffective disorder, unspecified (principal); R45.851 Suicidal ideations; J42 Unspecified chronic bronchitis; G89.29 Other chronic pain; F17.210 Nicotine dependence, cigarettes, uncomplicated; K21.9 Gastro-esophageal reflux disease without esophagitis; E78.2 Mixed hyperlipidemia; E66.9 Obesity, unspecified; Z68.33 Body mass index [BMI] 33.0-33.9, adult; M19.90 Unspecified osteoarthritis, unspecified site; E11.9 Type 2 diabetes mellitus without complications; F10.11 Alcohol abuse, in remission; Z79.51 Long term (current) use of inhaled steroids; Z79.891 Long term (current) use of opiate analgesic
CPT/HCPCS: 80053; 80306; 80307; 81001; 81003; 84443; 85025; 87077; 87086; 87186; 94640; 97165; 99285; J3535

== ENCOUNTER → 2022-04-18 09:49 | Outpatient (BNVA) | payer MEDICARE, MEDICAID, SELFPAY ==
[2022-01-05 10:41] VITALS: BP 132/88; BMI 31.9
== END ==
PROVIDERS: PCP Family Medicine Adult Medicine; Visit Provider Psychiatry & Neurology Psychiatry
DX: F20.9 Schizophrenia, unspecified (principal); Z79.899 Other long term (current) drug therapy
CPT/HCPCS: 85007; 85027

== ENCOUNTER → 2022-05-04 13:47 | Outpatient (BNVA) | payer MEDICARE, MEDICAID, SELFPAY ==
[2022-01-05 10:41] VITALS: BP 132/88; BMI 31.9
== END ==
PROVIDERS: PCP Family Medicine Adult Medicine; Visit Provider Obstetrics & Gynecology
DX: Z01.419 Encounter for gynecological examination (general) (routine) without abnormal findings (principal)
CPT/HCPCS: 87624

== ENCOUNTER → 2022-05-11 13:04 | Outpatient (BNVA) | payer MEDICARE, MEDICAID, SELFPAY ==
[2022-01-05 10:41] VITALS: BP 132/88; BMI 31.9
== END ==
PROVIDERS: PCP Family Medicine Adult Medicine; Visit Provider Obstetrics & Gynecology
DX: N85.2 Hypertrophy of uterus (principal)
CPT/HCPCS: 76830

== ENCOUNTER → 2022-05-30 13:50 | Outpatient (BNVA) | payer MEDICARE, MEDICAID, OTHER, SELFPAY ==
[2022-01-05 10:41] VITALS: BP 132/88; BMI 31.9
== END ==
PROVIDERS: PCP Family Medicine Adult Medicine; Visit Provider Psychiatry & Neurology Psychiatry
DX: F20.9 Schizophrenia, unspecified (principal); Z79.899 Other long term (current) drug therapy
CPT/HCPCS: 85007; 85027

== ENCOUNTER 2022-06-19 15:47 | Emergency (ER) | payer MEDICARE, MEDICAID, SELFPAY ==
[2022-01-05 10:41] VITALS: BP 132/88; BMI 31.9
--- NOTE | 2022-06-19 16:06 | XRR_ITS ---
PROCEDURE INFORMATION: Exam: XR Right Foot Exam date and time: 06/19/2022 4:55 PM Age: 57 years old Clinical indication: Injury or trauma; Fall; Blunt trauma; Foot; Right; Additional info: Fall, pain TECHNIQUE: Imaging protocol: Radiologic exam of the Right foot. Views: 3 or more views. COMPARISON: CR XR foot RT min 3V* [id number] 11/06/2019 5:21 PM FINDINGS: Bones/joints: No acute fracture. Chronic healed fractures of the 2nd through 5th metatarsals. Secondary osteoarthritis in the great toe. Soft tissues: Normal. XR/XR foot RT min 3V* [id number] IMPRESSION: 1. No acute findings. 2. Healed fractures of the metatarsals.
--- NOTE | 2022-06-19 16:06 | XRR_ITS ---
PROCEDURE INFORMATION: Exam: XR Right Tibia and Fibula Exam date and time: 06/19/2022 4:55 PM Age: 57 years old Clinical indication: Injury or trauma; Fall; Blunt trauma; Lower leg; Right; Additional info: Fall, pain TECHNIQUE: Imaging protocol: Radiologic exam of the Right tibia and fibula. Views: 2 views. COMPARISON: CR XR ankle RT min 3V* [id number] 01/31/2020 10:25 PM FINDINGS: Bones/joints: Normal. Soft tissues: Bandages overlie the lower leg near the ankle. No radiopaque foreign body. XR/XR tibia fibula RT 2V [id number] IMPRESSION: Unremarkable
[2022-06-19 16:07] VITALS: BP 93/62; PULSE 106; RESP 16; TEMP 36.8; O2SAT 94
--- NOTE | 2022-06-19 17:15 | W.ED.EXTPRO ---
HPI - Extremity Problem General: Chief complaint: Extremity Injury, Lower Stated complaint: fall,right foot pain Time Seen by Provider: 06/19/22 17:15 History of Present Illness: 57-year-old female comes in today with complaints of left ankle pain and discomfort. Patient reports twisting her ankle today and was concerned due to increased pain with weightbearing and swelling. No obvious deformity is noted to the extremities. Patient has no significant swelling is noted. Pulses are intact. Associated symptoms: Deny fever(s) Review of Systems Const: Denies: fever(s) Resp: Denies: dyspnea GI: Denies: nausea Musc: Reports: extremity pain [facility] ED PFSH: Medical History (Updated 06/19/22 @ 17:45 by YAEL Pandey) Allergic rhinitis Chronic bronchitis with COPD (chronic obstructive pulmonary disease) Chronic pain disorder Chronic pelvic pain in female COPD exacerbation GERD (gastroesophageal reflux disease) Mixed hyperlipidemia Obesity (BMI 30.0-34.9) Osteoarthritis (arthritis due to wear and tear of joints) Other schizophrenia Other stimulant dependence, uncomplicated Prediabetes Psychiatric care Shoulder pain, right Sialorrhea Spasm of right side abdominal muscles Urinary incontinence in female Family History Other CAD (coronary artery disease) Hypertension Denies family history of Colon cancer Ovarian cancer Diabetes Heart disease Breast cancer Cancer Uterine cancer Thyroid disease Stroke Social History Smoking and tobacco status: current every day smoker (5 cigarrettes per day) Smoking risk assessment/counseling performed?: No Alcohol intake: never Desire information about alcohol rehabilitation?: No Counseling given: No Desire information about substance/drug rehabilitation?: No Counseling given: No Female Reproductive History: Para: 2 Physical Exam Const: COMMON NORMALS: alert HENMT: COMMON NORMALS: normocephalic HEAD & SCALP: normocephalic Neck/C-Spine: COMMON NORMALS: full ROM Resp: COMMON NORMALS: normal respiratory effort Cardio: COMMON NORMALS: regular rate and regular rhythm RATE: regular rate RHYTHM: regular rhythm Extremity: RIGHT LOWER EXTREMITY: Yes foot & digits (Normal range of motion, minimal to no swelling, good pulses) Right ankle: Yes inspection, Yes palpation and Yes ROM Neuro: SENSORIUM/ORIENTATION: Yes alert Skin: COMMON NORMALS: turgor normal GENERAL SKIN EXAM: turgor normal Course Vital Signs: Vital signs: Vital Signs Temperature 98.3 F 06/19/22 16:07 Pulse Rate 106 H 06/19/22 16:07 Respiratory Rate 16 06/19/22 16:07 Blood Pressure 93/62 06/19/22 16:07 Pulse Oximetry 94 06/19/22 16:07 Oxygen Delivery Me thod 06/19/22 16:07 MDM - Extremity (Nontraumatic) Medical Decision Making 57-year-old female comes in today with complaints of injury to the right ankle. On exam patient has minimal to no swelling to the lateral right ankle. Pulses are intact. Patient reports some neuropathy in her feet. Vital signs are normal. Differential diagnosis includes but not limited to fracture, sprain, contusion. X-rays noted no acute fractures or dislocations. Reviewed exam with patient with recommendations for treatment and follow-up. Patient was recommended to follow-up with primary care for further evaluation and treatment return to ED for new concerns. Lab Data Radiology Impressions Foot X-Ray 06/19/22 16:06 IMPRESSION: 1. No acute findings. 2. Healed fractures of the metatarsals. Tibia/Fibula X-Ray 06/19/22 16:06 IMPRESSION: Unremarkable Discharge Plan Discharge Patient Disposition: Home Clinical Impression: Ankle sprain and strain Condition: Stable Prescriptions: No Action Dexilant 60 mg capsule,biphase delayed releas 60 mg PO DAILY@0730 acetaminophen 325 mg tablet 325 mg PO QID PRN (Reason: Pain) clozapine 50 mg tablet 150 mg PO QAM Qty: 90 11RF citalopram 40 mg tablet 40 mg PO DAILY Qty: 30 11RF benztropine 1 mg tablet 1 mg PO DAILY@0730 Qty: 30 11RF lorazepam 0.5 mg tablet 0.5 mg PO BID Qty: 60 5RF prednisone 20 mg tablet 40 mg PO DAILY 5 Days Qty: 10 0RF azithromycin 250 mg tablet See Rx Instructions PO .COMPLEX Qty: 6 0RF Rx Instructions: For 250 mg dose pack: take 500 mg today (day 1), then 250 mg for 4 days (days 2-5) PO baclofen 10 mg tablet 10 mg PO TID Qty: 90 1RF montelukast 10 mg tablet See Rx Instructions .ROUTE .COMPLEX Qty: 30 5RF Dose Instruction: TAKE 1 TABLET BY MOUTH EVERY DAY AT 7:30AM Rx Instructions: TAKE 1 TABLET BY MOUTH EVERY DAY AT 7:30AM docusate sodium 100 mg capsule See Rx Instructions .ROUTE .COMPLEX Qty: 180 3RF Dose Instruction: TAKE 1 CAPSULE BY MOUTH TWO TIMES DAILY NEEDED FOR CONSTIPATION Rx Instructions: TAKE 1 CAPSULE BY MOUTH TWO TIMES DAILY NEEDED FOR CONSTIPATION atorvastatin 20 mg tablet 20 mg PO DAILY Qty: 90 1RF budesonide-formoterol [Symbicort] 160-4.5 mcg/actuation HFA aerosol inhaler 2 puff inhalation BID Qty: 10.2 5RF gabapentin 300 mg capsule 300 mg PO BID Qty: 60 5RF meloxicam 7.5 mg tablet See Rx Instructions .ROUTE .COMPLEX Qty: 60 3RF Dose Instruction: TAKE 1 TABLET BY MOUTH TWICE A DAY Rx Instructions: TAKE 1 TABLET BY MOUTH TWICE A DAY tramadol 50 mg tablet 50 mg PO BID PRN (Reason: pain) Qty: 60 2RF Rx Instructions: Refill on or after her 30-day intervals albuterol sulfate 90 mcg/actuation HFA aerosol inhaler 2 puff inhalation Q4H PRN (Reason: shortness of breath or wheezing) Qty: 17 5RF fluticasone propionate 50 mcg/actuation spray,suspension 1 spray intranasal BID Qty: 16 5RF clozapine 100 mg tablet 350 mg PO BEDTIME mirtazapine 45 mg tablet 45 mg PO BEDTIME oxybutynin chloride 15 mg tablet extended release 24hr 15 mg PO BEDTIME Discharge Orders: Discharge ED (Routine); Ordered 06/19/22 Ordered By: Dominik Oconnor Referrals: Evans Olvera MD [Primary Care Provider] - Discharge Diet: Usual diet Discharge Activity: Increase activity as tolerated Patient Instructions: Ankle Sprain (ED) Activity Restrictions/Additional Instructions: Increase activity as tolerated. Continue with routine medications as directed. Use ice or heat for further pain relief. Follow-up with primary care as needed. Use crutches until he can bear weight comfortably. Use elastic bandage for further comfort and swelling as needed. Coding Level of Care Code ED [employer] for 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
[2022-06-19] MEDS: acetaminophen 500 mg Tablet 1000 MG PO (17:40)
== END 2022-06-19 18:09 | disposition home or self-care (01) ==
PROVIDERS: Emergency Provider Nurse Practitioner Family; PCP Family Medicine Adult Medicine
DX: S93.409A Sprain of unspecified ligament of unspecified ankle, initial encounter (principal); X50.1XXA Overexertion from prolonged static or awkward postures, initial encounter; M79.671 Pain in right foot
CPT/HCPCS: 73590; 73630; 99283

== ENCOUNTER → 2022-07-06 13:54 | Outpatient (BNVA) | payer MEDICARE, MEDICAID, OTHER, SELFPAY ==
[2022-01-05 10:41] VITALS: BP 132/88; BMI 31.9
== END ==
PROVIDERS: PCP Family Medicine Adult Medicine; Visit Provider Psychiatry & Neurology Psychiatry
DX: F20.9 Schizophrenia, unspecified (principal); Z79.899 Other long term (current) drug therapy
CPT/HCPCS: 85007; 85027

== ENCOUNTER 2022-08-01 08:49 | Day surgery (SDC) | payer MEDICARE, MEDICAID, SELFPAY ==
[2022-01-05 10:41] VITALS: BP 132/88; BMI 31.9
[2022-07-31 15:27] VITALS: BMI 31.4
[2022-08-01] VITALS (12 sets, daily range): BP systolic 101–135; BP diastolic 72–97; PULSE 90–109; RESP 13–22; TEMP 36.2–36.6; O2SAT 91–99
[2022-08-01] MEDS: sodium chloride 0.9% 1,000 ML 30 ML IV (09:30)
--- NOTE | 2022-08-01 09:37 | P.ANESASSM_ITS ---
Pre-Anesthetic Assessment Height/Weight: Height 1.57 m Weight 78.018 kg Temp Pulse Resp BP Pulse Ox O2 Del Method 97.8 F 109 H 18 126/97 95 08/01/22 09:25 08/01/22 09:25 08/01/22 09:25 08/01/22 09:25 08/01/22 09:25 08/01/22 09:25 Preop Diagnosis: Thickened endometrium Operation Date: 08/01/22 10:20 Proposed Procedures p Hysterosocopy, dilation and curettage with Myosure 14128, 09431,20727,R93.89,R10.2,G89.29(Not Applicable) - Stephany Victoria MD s Dilation And Curettage (D&C)(Not Applicable) - Stephany Victoria MD Familial anesthetic complications: none Was Beta Donna taken within 24 hours: N/A Was Clonidine taken within 24 hours: N/A Last intake: Intake Last Liquid Date 07/31/22 Last Liquid Time 18:00 Last Solid Date 07/31/22 Last Solid Time 18:00 Social Tobacco and No alcohol Exam alert, oriented x 3, clear to auscultation bilaterally and regular rate & rhythm Airway Mallampati: Class II Dentition: false Pulmonary Chronic Obstructive Pulmonary Disease GI Gastroesophageal Reflux Disease Metabolic Hyperlipidemia and Morbid Obesity [facility] [place] Fibromyalgia Anesthetic Plan ASA status: 3 Anesthesia: General Risk of > 500 ml blood loss (7ml/kg in children): No Medications/Allergies Home Medications Medication Instructions Recorded Confirmed Last Taken Type dexlansoprazole 60 mg 60 mg PO DAILY@0730 08/28/19 07/31/22 07/31/22 History capsule,biphase delayed release (Dexilant) acetaminophen 325 mg tablet 325 mg PO QID PRN Pain 10/18/21 07/31/22 Unknown History benztropine 1 mg tablet 1 mg PO DAILY@0730 #30 tabs 11/03/21 07/31/22 07/31/22 Rx citalopram 40 mg tablet 40 mg PO DAILY #30 tabs 11/03/21 07/31/22 07/31/22 Rx clozapine 50 mg tablet 150 mg PO QAM #90 tabs 11/03/21 07/31/22 07/31/22 Rx lorazepam 0.5 mg tablet 0.5 mg PO BID anxiety #60 tabs 03/23/22 07/31/22 07/31/22 Rx clozapine 100 mg tablet 350 mg PO BEDTIME 03/25/22 08/01/22 07/31/22 History mirtazapine 45 mg tablet 45 mg PO BEDTIME 03/25/22 07/31/22 07/31/22 History oxybutynin chloride 15 mg 15 mg PO BEDTIME 03/25/22 07/31/22 07/31/22 History tablet,extended release 24 hr docusate sodium 100 mg capsule See Rx Instructions .Route 04/06/22 07/31/22 07/31/22 Rx .COMPLEX #180 caps atorvastatin 20 mg tablet 20 mg PO DAILY #90 tabs 04/20/22 07/31/22 07/31/22 Rx budesonide-formoterol HFA 160 2 puff inhalation BID copd #10.2 05/13/22 07/31/22 08/01/22 Rx mcg-4.5 mcg/actuation aerosol grams inhaler (Symbicort) gabapentin 300 mg capsule 300 mg PO BID chronic pain #60 caps 05/13/22 07/31/22 07/31/22 Rx tramadol 50 mg tablet 50 mg PO BID PRN pain #60 tabs 05/16/22 07/31/22 07/31/22 Rx albuterol sulfate 90 mcg/actuation 2 puff inhalation Q4H PRN 05/30/22 07/31/22 08/01/22 Rx aerosol inhaler shortness of breath or wheezing #17 ea fluticasone propionate 50 1 spray intranasal BID #16 mL 06/06/22 07/31/22 08/01/22 Rx mcg/actuation nasal spray,suspension baclofen 10 mg tablet 10 mg PO TID #90 tabs 07/31/22 07/31/22 07/31/22 Rx meloxicam 7.5 mg tablet 7.5 mg PO BID 08/01/22 08/01/22 07/31/22 History montelukast 10 mg tablet 10 mg PO DAILY 08/01/22 08/01/22 07/31/22 History Allergies Allergy/AdvReac Type Severity Reaction Status Date / Time ibuprofen Allergy Mild ALGY-Rash Verified 07/27/22 09:02 Current Medications Generic Name Dose Route Start Last Admin Trade Name Freq PRN Reason Stop Dose Admin Sodium Chloride 1,000 mls @ 30 mls/hr 08/01/22 09:00 08/01/22 09:30 Sodium Chloride 0.9% IV 08/02/22 08:59 30 mls/hr .Q24H RIGO Administration PFSH Anesthesia Medical History (Updated 06/27/22 @ 00:01 by LILIANE Kapadia) Allergic rhinitis Chronic bronchitis with COPD (chronic obstructive pulmonary disease) Chronic pain disorder Chronic pelvic pain in female COPD exacerbation GERD (gastroesophageal reflux disease) Mixed hyperlipidemia Obesity (BMI 30.0-34.9) Osteoarthritis (arthritis due to wear and tear of joints) Other schizophrenia Other stimulant dependence, uncomplicated Prediabetes Psychiatric care Shoulder pain, right Sialorrhea Spasm of right side abdominal muscles Urinary incontinence in female Family History Other CAD (coronary artery disease) Hypertension Denies family history of Colon cancer Ovarian cancer Diabetes Heart disease Breast cancer Cancer Uterine cancer Thyroid disease Stroke Social History Smoking and tobacco status: current every day smoker (5 cigarrettes per day) Smoking risk assessment/counseling performed?: No Alcohol intake: never Desire information about alcohol rehabilitation?: No Counseling given: No Desire information about substance/drug rehabilitation?: No Counseling given: No Female Reproductive History Para: 2 Data Anesthesia Cardiac Studies: No Data to Display
--- NOTE | 2022-08-01 09:53 | W.PM.OPSUD ---
Surgery/Procedure H&P Update DATE OF PROCEDURE: August 01, 2022 DATE H&P PERFORMED: 07/27/22 H&P UPDATE INFORMATION: I have reviewed H&P completed within last 30 days, I have examined patient prior to procedure and No changes to prior documentation PREOP DIAGNOSIS: Thickened endometrium PLANNED PROCEDURE: Operation Date: 08/01/22 10:20 Proposed Procedures p Hysterosocopy, dilation and curettage with Myosure 44456, [id number],[id number],R93.89,R10.2,G89.29(Not Applicable) - Stephany Victoria MD s Dilation And Curettage (D&C)(Not Applicable) - Stephany Victoria MD Related Problem List Diagnoses (1) Thickened endometrium: (2) PMB (postmenopausal bleeding):
--- NOTE | 2022-08-01 10:56 | P.OP_ITS ---
Operative Report Date of procedure: August 01, 2022 Pre-op diagnosis: Preop Diagnosis Thickened endometrium Post-op diagnosis: same Post-op findings: normal appearing endometrium, vaginal lesion (removed) Procedure done: hysteroscopy, dilation and curettage with myosure, removal of vaginal lesion Specimens removed/disposition: endometrial curettings, vaginal lesion to pathology Surgeon: Stephany Victoria Anesthesia: MAC Estimated blood loss (mL): 0 IV fluids (mL): 500 Urine output (mL): 400 Complications: none Findings: 6 week sized normal appearing uterus. Anterior vaginal exophytic lesion Condition: stable Disposition: PACU Procedure: The patient was taken to the operating room where monitored anesthesia was administered and to be adequate. She was prepped and draped in the normal sterile fashion in the dorsal lithotomy position in [facility]. A weighted speculum was placed into the vagina and the anterior lip of the cervix grasped with a single-tooth tenaculum. There was an exophytic, polypoid appearing lesion in the anterior vagina, just under the bladder. It was approximately 5 mm sized. It was grasped and removed with cautery. There was excellent hemostasis. The uterus was then sounded to 6 cm. The cervix was dilated to 16 [place]. The hysteroscope was advanced into the endometrial cavity. There was normal-appearing visualized. The MyoSure device was activated and the tissue was sample. Pictures were taken pre and post procedure. All instruments were removed. The patient tolerated the procedure well. Sponge lap and needle counts were correct x3. She was taken to the recovery room in stable condition.
--- NOTE | 2022-08-01 11:03 | PM.DCS ---
Discharge Providers Date of Admission: 08/01/22 Date of Discharge: August 01, 2022 Attending Provider at Admission: Dr. Victoria Attending Provider at Discharge: Stephany Victoria MD Primary Care Provider: Evans Olvera MD Diagnoses at Discharge Discharge Diagnosis (1) Thickened endometrium: Status: Acute (2) PMB (postmenopausal bleeding): Status: Acute Reason for Visit Reason for Visit: Abnormal findings on diagnostic imaging of other Hospital Course Hospital Course The patient was admitted for surgery. She did well postoperatively and was ready for discharge Discharge Data Studies Completed and Pending Pending at discharge Category Date Time Status ES surgery / GI images Routine Exams 08/01/22 09:27 Ordered Vitals Last Vital Signs Temp 97.8 F 08/01/22 09:25 Pulse 109 H 08/01/22 09:25 Resp 18 08/01/22 09:25 BP 126/97 08/01/22 09:25 Pulse Ox 95 08/01/22 09:25 O2 Del Method 08/01/22 09:25 Discharge Plan Discharge Patient Disposition: Home Condition: Stable Prescriptions: Continued Dexilant 60 mg capsule,biphase delayed releas 60 mg PO DAILY@0730 acetaminophen 325 mg tablet 325 mg PO QID PRN (Reason: Pain) clozapine 50 mg tablet 150 mg PO QAM Qty: 90 11RF citalopram 40 mg tablet 40 mg PO DAILY Qty: 30 11RF benztropine 1 mg tablet 1 mg PO DAILY@0730 Qty: 30 11RF lorazepam 0.5 mg tablet 0.5 mg PO BID Qty: 60 5RF docusate sodium 100 mg capsule See Rx Instructions .ROUTE .COMPLEX Qty: 180 3RF Dose Instruction: TAKE 1 CAPSULE BY MOUTH TWO TIMES DAILY NEEDED FOR CONSTIPATION Rx Instructions: TAKE 1 CAPSULE BY MOUTH TWO TIMES DAILY NEEDED FOR CONSTIPATION atorvastatin 20 mg tablet 20 mg PO DAILY Qty: 90 1RF budesonide-formoterol [Symbicort] 160-4.5 mcg/actuation HFA aerosol inhaler 2 puff inhalation BID Qty: 10.2 5RF gabapentin 300 mg capsule 300 mg PO BID Qty: 60 5RF tramadol 50 mg tablet 50 mg PO BID PRN (Reason: pain) Qty: 60 2RF Rx Instructions: Refill on or after her 30-day intervals albuterol sulfate 90 mcg/actuation HFA aerosol inhaler 2 puff inhalation Q4H PRN (Reason: shortness of breath or wheezing) Qty: 17 5RF fluticasone propionate 50 mcg/actuation spray,suspension 1 spray intranasal BID Qty: 16 5RF baclofen 10 mg tablet 10 mg PO TID Qty: 90 1RF clozapine 100 mg tablet 350 mg PO BEDTIME mirtazapine 45 mg tablet 45 mg PO BEDTIME oxybutynin chloride 15 mg tablet extended release 24hr 15 mg PO BEDTIME meloxicam 7.5 mg tablet 7.5 mg PO BID Rx Instructions: TAKE 1 TABLET BY MOUTH TWICE A DAY montelukast 10 mg tablet 10 mg PO DAILY Rx Instructions: TAKE 1 TABLET BY MOUTH EVERY DAY AT 7:30AM Discharge Orders: Discharge Order (Routine); Ordered 08/01/22 Ordered By: Stephany Victoria Discharge Attestations Time Spent in Discharge Care*: less than 30 min Quality Metrics Clinical Quality Measures [ No reported AMI, CVA or VTE this stay] Coding Level of Care Code Acute Chg FW DC note Diagnoses Thickened endometrium R93.89 PMB (postmenopausal bleeding) N95.0
[2022-08-01] MEDS: fentaNYL 50 mcg/mL INJ 2mL IVP (11:17)
--- NOTE | 2022-08-01 12:32 | SUR.PHASEII ---
patient discharged to [facility] for ride home.
--- NOTE | 2022-08-01 14:08 | ANE.PACU2 ---
Inpatient post-anesthesia follow up: Airway intact: Yes Vital signs: Temperature 97.7 F Pulse Rate 92 Respiratory Rate 18 Blood Pressure 135/72 Pulse Oximetry 95 Oxygen Delivery Me thod Room Air Oxygen Flow Rate 8 Fraction of Inspir ed Oxygen Hydration adequate: Yes Nausea and vomiting: No Pain level: 1 Mental status: Baseline
== END 2022-08-01 12:25 | disposition home or self-care (01) ==
PROVIDERS: PCP Family Medicine Adult Medicine; Visit Provider Obstetrics & Gynecology
PROC: 0UDB8ZZ Extraction of Endometrium, Via Natural or Artificial Opening Endoscopic (ICD-10-PCS; CPT 58558; principal; 2022-08-01 10:10)
PROC: (CPT 58120; 2022-08-01 10:10)
DX: R93.89 Abnormal findings on diagnostic imaging of other specified body structures (principal); N95.0 Postmenopausal bleeding; J44.9 Chronic obstructive pulmonary disease, unspecified; E66.01 Morbid (severe) obesity due to excess calories; Z68.31 Body mass index [BMI] 31.0-31.9, adult; E78.2 Mixed hyperlipidemia; F17.210 Nicotine dependence, cigarettes, uncomplicated
CPT/HCPCS: 57135; 58558; 88305; J1100; J2250; J2405; J2704; J3010; J7030

== ENCOUNTER → 2022-08-10 14:00 | Outpatient (BNVA) | payer MEDICAID, SELFPAY ==
[2022-01-05 10:41] VITALS: BP 132/88; BMI 31.9
== END ==
PROVIDERS: PCP Family Medicine Adult Medicine; Visit Provider Obstetrics & Gynecology
DX: R39.9 Unspecified symptoms and signs involving the genitourinary system (principal); R31.9 Hematuria, unspecified
CPT/HCPCS: 81000; 87077; 87086; 87184

== ENCOUNTER → 2022-08-25 10:08 | Outpatient (BNVA) | payer MEDICARE, MEDICAID, OTHER, SELFPAY ==
[2022-01-05 10:41] VITALS: BP 132/88; BMI 31.9
== END ==
PROVIDERS: PCP Family Medicine Adult Medicine; Visit Provider Psychiatry & Neurology Psychiatry
DX: F20.9 Schizophrenia, unspecified (principal); Z79.899 Other long term (current) drug therapy
CPT/HCPCS: 85007; 85027

== ENCOUNTER → 2022-09-08 11:29 | Outpatient (BNVA) | payer MEDICARE, MEDICAID, SELFPAY ==
[2022-01-05 10:41] VITALS: BP 132/88; BMI 31.9
== END ==
PROVIDERS: PCP Family Medicine Adult Medicine; Visit Provider Nurse Practitioner
DX: N39.0 Urinary tract infection, site not specified (principal)
CPT/HCPCS: 81000

== ENCOUNTER 2022-09-21 14:28 | Emergency (ER) | payer MEDICARE, MEDICAID, SELFPAY ==
[2022-01-05 10:41] VITALS: BP 132/88; BMI 31.9
[2022-09-21 14:45] VITALS: BP 100/67; PULSE 102; RESP 18; TEMP 36.8; O2SAT 94
[2022-09-21 16:19] VITALS: BP 99/69; PULSE 96; RESP 18; O2SAT 93
--- NOTE | 2022-09-21 17:27 | CTR_ITS ---
PROCEDURE INFORMATION: Exam: CT Head Without Contrast Exam date and time: 09/21/2022 5:51 PM Age: 57 years old Clinical indication: Injury or trauma; Fall; Blunt trauma (contusions or hematomas); With loss of consciousness; Loss of consciousness for 30 minutes or less; Additional info: Fall with loc TECHNIQUE: Imaging protocol: Computed tomography of the head without contrast. Radiation optimization: All CT scans at this facility use at least one of these dose optimization techniques: automated exposure control; mA and/or kV adjustment per patient size (includes targeted exams where dose is matched to clinical indication); or iterative reconstruction. REPORTING DATA: Count of CT and Cardiac NM exams in prior 12 months: This patient has received 0 known CTs and 0 known cardiac nuclear medicine studies in the 12 months prior to the current study. COMPARISON: CT head wo con* [id number] 08/23/2021 11:55 AM RADIATION DOSE METRICS: Total DLP (mGy-cm): 1072.88 FINDINGS: Brain: Normal. No hemorrhage. Unremarkable white matter. No mass effect. Cerebral ventricles: No ventriculomegaly. Paranasal sinuses: Visualized sinuses are unremarkable. No fluid levels. Mastoid air cells: Visualized mastoid air cells are well aerated. Bones/joints: Unremarkable. No acute fracture. Soft tissues: Unremarkable. CT/CT head wo con* [id number] IMPRESSION: No acute intracranial abnormality.
--- NOTE | 2022-09-21 17:27 | XRR_ITS ---
PROCEDURE INFORMATION: Exam: XR Sacrum and Coccyx, 2 or More Views Exam date and time: 09/21/2022 6:49 PM Age: 57 years old Clinical indication: Pain in coccyx area; Additional info: Fall with coccyx pain, today TECHNIQUE: Imaging protocol: XR of the sacrum and coccyx, 2 or more views. COMPARISON: No relevant prior studies available. FINDINGS: Bones/joints: Lateral view demonstrates a subtle cortical defect in the posterior upper coccyx, perhaps reflecting a nondisplaced fracture, CT could further evaluate this. Soft tissues: Normal. XR/XR sacrum coccyx min 2V [id number] IMPRESSION: Lateral view demonstrates a subtle cortical defect in the posterior upper coccyx, perhaps reflecting a nondisplaced fracture, CT could further evaluate this.
[2022-09-21] MEDS: HYDROcodone-acetaminophen 5-325 mg Tablet 1 TAB PO (17:43)
--- NOTE | 2022-09-21 18:10 | ED_ITS ---
Documented by User: MAGGY Chester 09/28/22 17:07 HPI - Fall General: Chief Complaint: Fall Stated Complaint: FALL/ HIT HEAD Time Seen by Provider: 09/21/22 16:19 History of Present Illness: Patient is in today post fall. She states that she was standing on a kitchen chair trying to hang a picture and fell onto her butt and hit the back of her head on the floor. She reports that it did not occur out for about 10 to 15 seconds she thinks. She reports that she is having a lot of pain in her tailbone. She denies any dizziness, vomiting, vision disturbance, weakness. Associated symptoms-after fall: Reports headache(s); Denies abdominal pain, chest pain, lightheadedness, neck pain or vertigo Review of Systems Const: Denies: fever(s), chills or body aches Eyes: Denies: change in vision or blurry vision ENMT: Denies: throat pain Card: Denies: chest pain, palpitations, irregular heart rhythm, lightheadedness or syncope Resp: Denies: dyspnea, productive cough or non-productive cough GI: Denies: abdominal pain, nausea or vomiting : Denies: flank pain, difficulty voiding, dysuria, urinary frequency, urinary urgency or urinary hesitancy Musc: Reports: back pain (Pain to tailbone); Denies: neck pain Neuro: Reports: headache(s); Denies: numbness in extremities, weakness in extremities, sensory changes, dizziness, vertigo or behavioral changes PFSH ED PFSH: Medical History Allergic rhinitis Chronic bronchitis with COPD (chronic obstructive pulmonary disease) Chronic pain disorder Right shoulder GERD (gastroesophageal reflux disease) Mixed hyperlipidemia Obesity (BMI 30.0-34.9) Osteoarthritis (arthritis due to wear and tear of joints) Other schizophrenia PMB (postmenopausal bleeding) Prediabetes Psychiatric care Thickened endometrium Urinary incontinence in female Family History Other CAD (coronary artery disease) Hypertension Denies family history of Colon cancer Ovarian cancer Diabetes Heart disease Breast cancer Cancer Uterine cancer Thyroid disease Stroke Female Reproductive History: Para: 2 Physical Exam Const: COMMON NORMALS: no acute distress, patient oriented x3 and alert GENERAL APPEARANCE: cooperative ORIENTATION/CONSCIOUSNESS: Yes awake, Yes kelly ented to person, Yes oriented to place and Yes oriented to time HENMT: COMMON NORMALS: EAC's normal and TM's normal bilaterally EXTERNAL AUDITORY CANAL: EAC's normal TYMPANIC MEMBRANE: TM's normal bilaterally MOUTH: Normal oral and palatal mucosa present THROAT: posterior oropharynx normal OTHER: An approximate 2 cm laceration to her posterior scalp. Bleeding is controlled. No obvious depressions or bony deformity is palpated. Eye: COMMON NORMALS: Equal, round and reactive pupils present, EOMs intact bilaterally and conjunctivae normal GENERAL EYE: appearance normal, both eyes and all related structures ALIGNMENT: Yes alignment normal CONJUNCTIVA: Yes conjunctivae normal SCLERA: sclerae normal PUPIL: Yes Equal, round and reactive pupils present Neck/C-Spine: COMMON NORMALS: full ROM OTHER: No vertebral point tenderness or step-off appreciated. Full range of motion of the neck. Resp: COMMON NORMALS: normal respiratory effort, No retractions, No use of accessory muscles and clear to auscultation bilaterally EFFORT & INSPECTION: Yes symmetric chest movement AUSCULTATION: clear to auscultation bilaterally Cardio: COMMON NORMALS: regular rate, regular rhythm, S1 normal heart sound present and S2 normal heart sound present RATE: regular rate RHYTHM: regular rhythm HEART SOUNDS: S1 normal heart sound present and S2 normal heart sound present GI: COMMON NORMALS: Normal to inspection, nondistended, normoactive bowel sounds present, Soft to palpation, non-tender, No hepatosplenomegaly present, no masses and no bruits INSPECTION: Yes normal to inspection PALPATION: Yes Soft to palpation and Yes No hepatosplenomegaly present : COMMON NORMALS: Yes no CVA tenderness BLADDER/KIDNEY EXAM: Yes no CVA tenderness Back/Pelvis: COMMON NORMALS: no CVA tenderness OTHER: Tenderness to palpation at the gluteal cleft midline coccyx. No obvious bony deformity or soft tissue deformity appreciated. Patient is ambulating with a steady gait. Neuro: COMMON NORMALS: patient oriented x3, CN's II-XII intact bilaterally, moves all extremities, no focal motor deficits and no sensory deficits noted SENSORIUM/ORIENTATION: Yes alert, Yes oriented to person, Yes oriented to place and Yes oriented to time Psych: COMMON NORMALS: cooperative Course Vital Signs: Vital signs: Vital Signs Temperature 98.3 F 09/21/22 14:45 Pulse Rate 82 09/21/22 21:32 Respiratory Rate 17 09/21/22 21:32 Blood Pressure 103/70 09/21/22 21:32 Pulse Oximetry 97 09/21/22 21:32 Oxygen Delivery Me thod 09/21/22 21:32 MDM - Fall Medical Decision Making Patient is in today post fall. She sustained a laceration to the back of her scalp approximately 2 cm. The area was cleaned. Educated patient about potential options for wound closure including hair apposition technique and eugenio. Patient opted to go with eugenio. She was advised of risk and benefits of wound closure with eugenio. Patient gave verbal consent to proceed. The area was injected locally with lidocaine with epinephrine. 5 eugenio were placed to close the wound. Patient tolerated well. Bleeding is under control. Head CT is negative. X-ray results of the coccyx shows suspicious for nondisplaced fracture recommend CT. CT pelvic bones shows no acute findings and no definitive fracture. Discussed conservative treatment at home with the patient including sitting on a doughnut to help alleviate pain, Tylenol, ice. Discussed aftercare of eugenio and return in 5 to 7 days to have them removed. Follow-up with primary care provider as needed. Return to the ER sooner as needed for new or worsening symptoms Lab Data Radiology Impressions Head CT 09/21/22 17:27 IMPRESSION: No acute intracranial abnormality. Sacrum and Coccyx X-Ray 09/21/22 17:27 IMPRESSION: Lateral view demonstrates a subtle cortical defect in the posterior upper coccyx, perhaps reflecting a nondisplaced fracture, CT could further evaluate this. Pelvis CT 09/21/22 19:37 IMPRESSION: No acute findings. Area of concern on comparison x-ray does not demonstrate a definitive fracture. Discharge Plan Discharge Patient Disposition: Home Clinical Impression: Simple laceration of scalp, Contusion of head, Fall, Coccyx contusion Condition: Stable Prescriptions: No Action Dexilant 60 mg capsule,biphase delayed releas 60 mg PO DAILY@0730 acetaminophen 325 mg tablet 325 mg PO QID PRN (Reason: Pain) benztropine 1 mg tablet 1 mg PO DAILY@0730 Qty: 30 11RF tramadol 50 mg tablet 50 mg PO BID PRN (Reason: pain) 30 Days Qty: 60 2RF Rx Instructions: Refill on or after her 30-day intervals lorazepam 0.5 mg tablet 0.5 mg PO BID Qty: 60 5RF citalopram 40 mg tablet 40 mg PO DAILY Qty: 30 11RF clozapine 200 mg tablet 200 mg PO QAM Qty: 30 11RF clozapine 100 mg tablet 350 mg PO BEDTIME Qty: 105 11RF mirtazapine 45 mg tablet 45 mg PO BEDTIME Qty: 30 11RF docusate sodium 100 mg capsule See Rx Instructions .ROUTE .COMPLEX Qty: 180 3RF Dose Instruction: TAKE 1 CAPSULE BY MOUTH TWO TIMES DAILY NEEDED FOR CONSTIPATION Rx Instructions: TAKE 1 CAPSULE BY MOUTH TWO TIMES DAILY NEEDED FOR CONSTIPATION atorvastatin 20 mg tablet 20 mg PO DAILY Qty: 90 1RF budesonide-formoterol [Symbicort] 160-4.5 mcg/actuation HFA aerosol inhaler 2 puff inhalation BID Qty: 10.2 5RF gabapentin 300 mg capsule 300 mg PO BID Qty: 60 5RF albuterol sulfate 90 mcg/actuation HFA aerosol inhaler 2 puff inhalation Q4H PRN (Reason: shortness of breath or wheezing) Qty: 17 5RF fluticasone propionate 50 mcg/actuation spray,suspension 1 spray intranasal BID Qty: 16 5RF oxybutynin chloride 15 mg tablet extended release 24hr 15 mg PO BEDTIME Qty: 90 1RF meloxicam 7.5 mg tablet See Rx Instructions .ROUTE .COMPLEX Qty: 60 5RF Dose Instruction: TAKE 1 TABLET BY MOUTH TWICE A DAY Rx Instructions: TAKE 1 TABLET BY MOUTH TWICE A DAY baclofen 10 mg tablet See Rx Instructions .ROUTE .COMPLEX Qty: 90 1RF Dose Instruction: TAKE 1 TABLET BY MOUTH 3 TIMES A DAY Rx Instructions: TAKE 1 TABLET BY MOUTH 3 TIMES A DAY montelukast 10 mg tablet 10 mg PO DAILY Rx Instructions: TAKE 1 TABLET BY MOUTH EVERY DAY AT 7:30AM Discharge Orders: Discharge ED (Routine); Ordered 09/21/22 Ordered By: Crystal Bhakta Referrals: Evans Olvera MD [Primary Care Provider] - Discharge Diet: Usual diet Discharge Activity: Increase activity as tolerated Patient Instructions: Coccyx Injury (ED), Concussion (ED), Staple Care (ED) Activity Restrictions/Additional Instructions: Your CT of your head was negative for any acute abnormality or injury. Your CT of your coccyx did not show a definitive fracture. I recommend conservative treatment including ice, rest, sitting on a doughnut. You may use [id number] pain relievers such as Tylenol at home. Keep your eugenio clean and dry. Return to the ER for staple removal in 5 days. Monitor closely for any signs of infection including increased redness, drainage, increased pain or swelling. Follow-up with primary care provider as needed. Return to the ER sooner for any new or worsening symptoms Coding Level of Care Code ED Irrigation Pump Installer for Chg Fwd Documented by User: Cesar Neil DO 09/28/22 17:29 HPI - Fall General: Chief Complaint: Fall Stated Complaint: FALL/ HIT HEAD Time Seen by Provider: 09/21/22 16:19 PFSH ED PFSH: Medical History Allergic rhinitis Chronic bronchitis with COPD (chronic obstructive pulmonary disease) Chronic pain disorder Right shoulder GERD (gastroesophageal reflux disease) Mixed hyperlipidemia Obesity (BMI 30.0-34.9) Osteoarthritis (arthritis due to wear and tear of joints) Other schizophrenia PMB (postmenopausal bleeding) Prediabetes Psychiatric care Thickened endometrium Urinary incontinence in female Family History Other CAD (coronary artery disease) Hypertension Denies family history of Colon cancer Ovarian cancer Diabetes Heart disease Breast cancer Cancer Uterine cancer Thyroid disease Stroke Course Vital Signs: Vital signs: Vital Signs Temperature 98.3 F 09/21/22 14:45 Pulse Rate 82 09/21/22 21:32 Respiratory Rate 17 09/21/22 21:32 Blood Pressure 103/70 09/21/22 21:32 Pulse Oximetry 97 09/21/22 21:32 Oxygen Delivery Me thod 09/21/22 21:32 MDM - Fall Medical Decision Making Patient is in today post fall. She sustained a laceration to the back of her scalp approximately 2 cm. The area was cleaned. Educated patient about potential options for wound closure including hair apposition technique and eugenio. Patient opted to go with eugenio. She was advised of risk and benefits of wound closure with eugenio. Patient gave verbal consent to proceed. The area was injected locally with lidocaine with epinephrine. 5 eugenio were placed to close the wound. Patient tolerated well. Bleeding is under control. Head CT is negative. X-ray results of the coccyx shows suspicious for nondisplaced fracture recommend CT. CT pelvic bones shows no acute findings and no definitive fracture. Discussed conservative treatment at home with the patient including sitting on a doughnut to help alleviate pain, Tylenol, ice. Discussed aftercare of eugenio and return in 5 to 7 days to have them removed. Follow-up with primary care provider as needed. Return to the ER sooner as needed for new or worsening symptoms Chart reviewed and patient discussed with midlevel. Agree with assessment and plan. Lab Data Radiology Impressions Head CT 09/21/22 17:27 IMPRESSION: No acute intracranial abnormality. Sacrum and Coccyx X-Ray 09/21/22 17:27 IMPRESSION: Lateral view demonstrates a subtle cortical defect in the posterior upper coccyx, perhaps reflecting a nondisplaced fracture, CT could further evaluate this. Pelvis CT 09/21/22 19:37 IMPRESSION: No acute findings. Area of concern on comparison x-ray does not demonstrate a definitive fracture. Discharge Plan Discharge Patient Disposition: Home Clinical Impression: Simple laceration of scalp, Contusion of head, Fall, Coccyx contusion Condition: Stable Prescriptions: No Action Dexilant 60 mg capsule,biphase delayed releas 60 mg PO DAILY@0730 acetaminophen 325 mg tablet 325 mg PO QID PRN (Reason: Pain) benztropine 1 mg tablet 1 mg PO DAILY@0730 Qty: 30 11RF tramadol 50 mg tablet 50 mg PO BID PRN (Reason: pain) 30 Days Qty: 60 2RF Rx Instructions: Refill on or after her 30-day intervals lorazepam 0.5 mg tablet 0.5 mg PO BID Qty: 60 5RF citalopram 40 mg tablet 40 mg PO DAILY Qty: 30 11RF clozapine 200 mg tablet 200 mg PO QAM Qty: 30 11RF clozapine 100 mg tablet 350 mg PO BEDTIME Qty: 105 11RF mirtazapine 45 mg tablet 45 mg PO BEDTIME Qty: 30 11RF docusate sodium 100 mg capsule See Rx Instructions .ROUTE .COMPLEX Qty: 180 3RF Dose Instruction: TAKE 1 CAPSULE BY MOUTH TWO TIMES DAILY NEEDED FOR CONSTIPATION Rx Instructions: TAKE 1 CAPSULE BY MOUTH TWO TIMES DAILY NEEDED FOR CONSTIPATION atorvastatin 20 mg tablet 20 mg PO DAILY Qty: 90 1RF budesonide-formoterol [Symbicort] 160-4.5 mcg/actuation HFA aerosol inhaler 2 puff inhalation BID Qty: 10.2 5RF gabapentin 300 mg capsule 300 mg PO BID Qty: 60 5RF albuterol sulfate 90 mcg/actuation HFA aerosol inhaler 2 puff inhalation Q4H PRN (Reason: shortness of breath or wheezing) Qty: 17 5RF fluticasone propionate 50 mcg/actuation spray,suspension 1 spray intranasal BID Qty: 16 5RF oxybutynin chloride 15 mg tablet extended release 24hr 15 mg PO BEDTIME Qty: 90 1RF meloxicam 7.5 mg tablet See Rx Instructions .ROUTE .COMPLEX Qty: 60 5RF Dose Instruction: TAKE 1 TABLET BY MOUTH TWICE A DAY Rx Instructions: TAKE 1 TABLET BY MOUTH TWICE A DAY baclofen 10 mg tablet See Rx Instructions .ROUTE .COMPLEX Qty: 90 1RF Dose Instruction: TAKE 1 TABLET BY MOUTH 3 TIMES A DAY Rx Instructions: TAKE 1 TABLET BY MOUTH 3 TIMES A DAY montelukast 10 mg tablet 10 mg PO DAILY Rx Instructions: TAKE 1 TABLET BY MOUTH EVERY DAY AT 7:30AM Discharge Orders: Discharge ED (Routine); Ordered 09/21/22 Ordered By: Crystal Bhakta Referrals: Evans Olvera MD [Primary Care Provider] - Discharge Diet: Usual diet Discharge Activity: Increase activity as tolerated Patient Instructions: Coccyx Injury (ED), Concussion (ED), Staple Care (ED) Activity Restrictions/Additional Instructions: Your CT of your head was negative for any acute abnormality or injury. Your CT of your coccyx did not show a definitive fracture. I recommend conservative treatment including ice, rest, sitting on a doughnut. You may use [id number] pain relievers such as Tylenol at home. Keep your eugenio clean and dry. Return to the ER for staple removal in 5 days. Monitor closely for any signs of infection including increased redness, drainage, increased pain or swelling. Follow-up with primary care provider as needed. Return to the ER sooner for any new or worsening symptoms Coding Level of Care Code ED Irrigation Pump Installer for 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
--- NOTE | 2022-09-21 19:37 | CTR_ITS ---
PROCEDURE INFORMATION: Exam: CT Pelvis Without Contrast; Skeletal Exam date and time: 09/21/2022 8:29 PM Age: 57 years old Clinical indication: Injury or trauma; Fall; Blunt trauma (contusions or hematomas); Bilateral; Patient HX: Possible cortical abnormality noted on sacrum/coccyx xrays. ; Additional info: Abnormal coccyx on xr- pain after fall TECHNIQUE: Imaging protocol: Computed tomography of the pelvis without contrast. Exam focused on the skeleton. Radiation optimization: All CT scans at this facility use at least one of these dose optimization techniques: automated exposure control; mA and/or kV adjustment per patient size (includes targeted exams where dose is matched to clinical indication); or iterative reconstruction. REPORTING DATA: Count of CT and Cardiac NM exams in prior 12 months: This patient has received [address] and 0 known cardiac nuclear medicine studies in the 12 months prior to the current study. COMPARISON: CR (PELVIS, ) 09/21/2022 6:49 PM RADIATION DOSE METRICS: Total DLP (mGy-cm): 422.41 FINDINGS: Bones/joints: Unremarkable. No acute fracture. No dislocation. Soft tissues: Unremarkable. CT/CT bony pelvis [id number] IMPRESSION: No acute findings. Area of concern on comparison x-ray does not demonstrate a definitive fracture.
[2022-09-21 21:32] VITALS: BP 103/70; PULSE 82; RESP 17; O2SAT 97
== END 2022-09-21 21:34 | disposition home or self-care (01) ==
PROVIDERS: Emergency Provider Nurse Practitioner Family; PCP Family Medicine Adult Medicine
DX: S01.01XA Laceration without foreign body of scalp, initial encounter (principal); S00.93XA Contusion of unspecified part of head, initial encounter; S30.0XXA Contusion of lower back and pelvis, initial encounter; J44.9 Chronic obstructive pulmonary disease, unspecified; E78.2 Mixed hyperlipidemia; W07.XXXA Fall from chair, initial encounter
CPT/HCPCS: 70450; 72192; 72220; 99284

== ENCOUNTER → 2022-09-22 10:59 | Outpatient (BNVA) | payer MEDICARE, MEDICAID, OTHER, SELFPAY ==
[2022-01-05 10:41] VITALS: BP 132/88; BMI 31.9
== END ==
PROVIDERS: PCP Family Medicine Adult Medicine; Visit Provider Psychiatry & Neurology Psychiatry
DX: F20.9 Schizophrenia, unspecified (principal); Z79.899 Other long term (current) drug therapy
CPT/HCPCS: 85007; 85027

== ENCOUNTER → 2022-10-20 13:04 | Outpatient (BNVA) | payer MEDICARE, MEDICAID, SELFPAY ==
[2022-01-05 10:41] VITALS: BP 132/88; BMI 31.9
== END ==
PROVIDERS: PCP Family Medicine Adult Medicine; Visit Provider Psychiatry & Neurology Psychiatry
DX: F20.9 Schizophrenia, unspecified (principal); Z79.899 Other long term (current) drug therapy
CPT/HCPCS: 85007; 85027

== ENCOUNTER 2022-10-24 10:07 | Observation (INO) | payer MEDICARE, MEDICAID, SELFPAY ==
[2022-01-05 10:41] VITALS: BP 132/88; BMI 31.9
[2022-10-19 10:20] VITALS: BMI 31.4
[2022-10-19 11:24] LABS: Basophils % 0.3 %; Eosinophils # 0.2 10^3/uL (0.0-0.8); Eosinophils % 1.9 %; Hematocrit 41.1 % (37.0-47.0); Hemoglobin 13.3 g/dL (11.5-15.3); Lymphocytes # 1.6 10^3/uL (0.8-4.8); Lymphocytes % 18.3 %; Mean Corpuscular HGB Conc 32.4 g/dL (30.0-36.0); Mean Corpuscular Hemoglobin 29.6 pg (28.0-34.0); Mean Corpuscular Volume 91.5 fl (81-99); Monocytes # 0.7 10^3/uL (0.2-0.9); Monocytes % 8.6 %; Neutrophils # 6.07 10^3/uL (1.8-7.7); Neutrophils % 70.3 %; Nucleated Red Blood Cells % 0 %; Platelet Count 276 10^3/cmm (130-400); Red Blood Count 4.49 10^6/uL (4.1-5.3); Red Cell Distribution Width 14.5 % (12.1-15.1); White Blood Count 8.6 10^3/uL (4.0-10.0)
[2022-10-19 11:30] LABS: Anion Gap 16.2 (5-19); Blood Urea Nitrogen 8 mg/dL (6-20); Carbon Dioxide 25 mmol/L (22-29); Chloride 102 mmol/L (98-107); Glomerular Filtration Rate 126.7 mL/min (90-130); Glucose 97 mg/dL (65-115); Osmolality Calculated 286 mOsm/kg (285-295); Potassium 4.2 mmol/L (3.5-5.1); Sodium 139 mmol/L (136-145)
--- NOTE | 2022-10-19 17:07 | P.ANESASSM_ITS ---
Pre-Anesthetic Assessment Height/Weight: Height 1.57 m Weight 78.018 kg Preop Diagnosis: Thickened endometrium Operation Date: 10/24/22 10:35 Proposed Procedures p Laparoscopic assisted vaginal hysterectomy, bilateral salpingo-oophorectomy 62751, N95.0(Not Applicable) - Stephany Victoria MD Familial anesthetic complications: none Was Beta Donna taken within 24 hours: N/A Was Clonidine taken within 24 hours: N/A Social Tobacco and No alcohol Exam alert, oriented x 3 and regular rate & rhythm Airway Submandibular: within normal limits Cervical ROM: within normal limits Mallampati: Class II Dentition: false Pulmonary Chronic Obstructive Pulmonary Disease GI Gastroesophageal Reflux Disease Metabolic Hyperlipidemia and Morbid Obesity [facility] [place] [facility] [place] Fibromyalgia, Lower Back Pain and Osteoarthritis/DJD Neuropsych Anxiety and Depression Schizo Anesthetic Plan ASA status: 3 Anesthesia: General Medications/Allergies Home Medications Medication Instructions Recorded Confirmed Last Taken Type dexlansoprazole 60 mg 60 mg PO DAILY@0730 08/28/19 10/19/22 10/19/22 History capsule,biphase delayed release (Dexilant) acetaminophen 325 mg tablet 325 mg PO QID PRN Pain 10/18/21 10/19/22 Unknown History benztropine 1 mg tablet 1 mg PO DAILY@0730 #30 tabs 11/03/21 10/19/22 10/19/22 R x budesonide-formoterol HFA 160 2 puff inhalation BID copd #10.2 05/13/22 10/19/22 10/19/22 Rx mcg-4.5 mcg/actuation aerosol grams inhaler (Symbicort) albuterol sulfate 90 mcg/actuation 2 puff inhalation Q4H PRN 05/30/22 10/19/22 10/19/22 Rx aerosol inhaler shortness of breath or wheezing #17 ea montelukast 10 mg tablet 10 mg PO DAILY 08/01/22 10/19/22 10/19/22 History tramadol 50 mg tablet 50 mg PO BID PRN pain 30 days #60 08/15/22 10/19/22 10/19/22 Rx tabs oxybutynin chloride 15 mg 15 mg PO BEDTIME #90 tabs 08/24/22 10/19/22 10/18/22 Rx tablet,extended release 24 hr lorazepam 0.5 mg tablet 0.5 mg PO BID anxiety #60 tabs 02/03/23 03/30/23 03/30/ 23 Rx citalopram 40 mg tablet 40 mg PO DAILY #30 tabs 09/22/22 10/19/22 10/19/22 Rx clozapine 100 mg tablet 350 mg PO BEDTIME #105 tabs 09/22/22 10/19/22 10/18/22 Rx clozapine 200 mg tablet 200 mg PO QAM #30 tabs 09/22/22 10/19/22 10/19/22 Rx mirtazapine 45 mg tablet 45 mg PO BEDTIME #30 tabs 09/22/22 10/19/22 10/18/22 Rx atorvastatin 20 mg tablet 20 mg PO DAILY #90 tabs 10/02/22 10/19/22 10/19/22 Rx fluticasone propionate 50 1 spray intranasal BID #16 mL 10/02/22 10/19/22 10/19/22 Rx mcg/actuation nasal spray,suspension triamcinolone acetonide 0.5 % 1 applic topical DAILY apply to 10/18/22 10/19/22 Unknown Rx topical cream skin/feet #15 grams baclofen 10 mg tablet 10 mg PO TID 10/19/22 10/19/22 10/19/22 History docusate sodium 100 mg capsule 100 mg PO BID PRN Constipation 10/19/22 10/19/22 10/19/22 History gabapentin 100 mg capsule 300 mg PO BID 10/19/22 10/19/22 10/19/22 History meloxicam 7.5 mg tablet 7.5 mg PO BID 10/19/22 10/19/22 10/19/22 History Allergies Allergy/AdvReac Type Severity Reaction Status Date / Time ibuprofen Allergy Mild ALGY-Rash Verified 10/19/22 08:27 [facility] Anesthesia Medical History 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 Allergic rhinitis Chronic bronchitis with COPD (chronic obstructive pulmonary disease) Chronic pain disorder Right shoulder GERD (gastroesophageal reflux disease) Mixed hyperlipidemia Obesity (BMI 30.0-34.9) Osteoarthritis (arthritis due to wear and tear of joints) Other schizophrenia PMB (postmenopausal bleeding) Prediabetes Psychiatric care Smoker unmotivated to quit Thickened endometrium Urinary incontinence in female Family History Other CAD (coronary artery disease) Hypertension Denies family history of Colon cancer Ovarian cancer Diabetes Heart disease Breast cancer Cancer Uterine cancer Thyroid disease Stroke Female Reproductive History Para: 2 Data Anesthesia 10/19/22 10:26 10/19/22 10:26 Short CBC 10/19/22 Range/Units 10:26 WBC 8.6 (4.0-10.0) 10^3/uL Hgb 13.3 (11.5-15.3) g/dL Hct 41.1 (37.0-47.0) % MCV 91.5 (81-99) fl Plt Count 276 (130-400) 10^3/cmm Neut % (Auto) 70.3 % Neut # (Auto) 6.07 (1.8-7.7) 10^3/uL BMP 10/19/22 10:26 Sodium 139 Potassium 4.2 Chloride 102 Carbon Dioxide 25 BUN 8 Creatinine 0.5 Glucose 97 Calcium 9.0 Blood Bank 10/19/22 10:26 Blood Type O Negative Rho(D) Type Negative Antibody Screen Positive Cardiac Studies: No Data to Display
[2022-10-24] VITALS (19 sets, daily range): BP systolic 98–135; BP diastolic 61–87; PULSE 85–108; RESP 15–20; TEMP 36.2–37.3; O2SAT 90–96
[2022-10-24] MEDS: acetaminophen 1,000 MG/100 ML PIGGYBACK 400 MG IV (06:19)
[2022-10-24] MEDS: sodium chloride 0.9% 1,000 ML 30 ML IV (06:19)
[2022-10-24] MEDS: gabapentin 300 mg Capsule PO (06:21)
[2022-10-24] MEDS: CELEcoxib 200 mg Capsule 400 MG PO (06:21)
[2022-10-24] MEDS: phenazopyridine 100 mg Tablet 200 MG PO ×3 (06:21→20:10)
[2022-10-24] MEDS: scopolamine 1.5 Patch 1 PATCH TRANSDERMA (06:21)
--- NOTE | 2022-10-24 06:59 | W.PM.OPSUD ---
Surgery/Procedure H&P Update DATE OF PROCEDURE: October 24, 2022 DATE H&P PERFORMED: 10/19/22 H&P UPDATE INFORMATION: I have reviewed H&P completed within last 30 days, I have examined patient prior to procedure and No changes to prior documentation CHANGES TO PREVIOUS DOCUMENTATION: possible mid urethral sling added to consent. PREOP DIAGNOSIS: Uterine prolapse, PMB, urinary incontinence PLANNED PROCEDURE: Operation Date: 10/24/22 07:00 Proposed Procedures p Laparoscopic assisted vaginal hysterectomy, bilateral salpingo-oophorectomy 21022, N95.0(Not Applicable) - Stephany Victoria MD Related Problem List Diagnoses (1) Uterine prolapse: (2) PMB (postmenopausal bleeding): (3) Urinary incontinence in female:
[2022-10-24] MEDS: ceFAZolin 2,000 MG in sodium chloride 0.9% (plus) 50 ML 100 MG IV ×3 (07:07→22:58)
[2022-10-24] MEDS: vasopressin 20 unit/mL INJ INJECTION (07:59)
--- NOTE | 2022-10-24 09:10 | P.OP_ITS ---
Operative Report Date of procedure: October 24, 2022 Pre-op diagnosis: Preop Diagnosis Uterine prolapse, PMB, urinary incontinence Post-op diagnosis: same Post-op findings: Small uterus, previous tubal ligation, normal appearing tubes and ovaries Procedure done: LAVH, BSO, cystoscopy Specimens removed/disposition: Uterus, tubes, ovaries to pathology Surgeon: Stephany Victoria Anesthesia: General Estimated blood loss (mL): 10 IV fluids (mL): 1,500 Urine output (mL): 200 Complications: none Condition: stable Disposition: PACU Procedure: The patient was taken to the operating room where general anesthesia was administered and found to be adequate. She was prepped and draped in the normal sterile fashion in the dorsal lithotomy position in [facility]. A Oswald catheter was placed. A weighted speculum was placed into the vagina and the anterior lip of the cervix was grasped with a single tooth tenaculum. The Zumi uterine manipulator was placed. The weighted speculum was removed. The gloves were changed and attention was turned to the abdomen. A 5 mm supraumbilical incision was made. Using a 5 mm port with the camera, the port was placed into the abdomen. The abdomen was insufflated. Two low, lateral 5 mm ports were placed on the left and right under direct visualization from the camera. The right tube was grasped and elevated. Using the laparoscopic cautery, the infundibulopelvic ligament was cauterized inferior to the ovary and followed the tube to the uterine cornua. This was performed the same way on the left. The uteroovarian ligaments as well as the round ligaments were ligated. Attention was then turned to the vaginal portion of the procedure. The weighted speculum was placed into the vagina. The zumi manipulator was removed. The single tooth tenaculum was removed and replaced with the loco's tenaculum. 10 mL of dilute Pitressin was injected at the vesicovaginal junction. A circumferential incision was made at the vesicovaginal junction and the vaginal mucosa reflected cephalad. The posterior peritoneum was entered sharply with the Metzenbaum scissors and the long weighted speculum replaced. Using the Kirsty clamps the uterosacral ligaments were clamped cut and suture- ligated. The anterior peritoneum was entered sharply with the metzenbaum scissors. Then sequentially the uterine arteries and cardinal ligaments were clamped cut and suture-ligated. A single-tooth tenaculum was used to deliver the uterus. The remaining segement of the utero-ovarian ligaments were clamped cut and suture-ligated bilaterally and the specimen was removed. There was good hemostasis with only mild bleeding from the cuff. The peritoneum was closed with a pursestring using 2-0 Vicryl. The vaginal cuff was closed with 0 Vicryl in a running locked pattern incorporating the uterosacral ligaments into the lateral aspects of the vaginal cuff. The Oswald catheter was removed and the cystoscope advanced into the bladder. The patient was given pyridium and bilateral spill was noted. There were no injuries or deficits noted in the bladder. The cystoscope was removed. Crudee was performed and there was no urine leakage. The Oswald catheter was replaced. Vaginal packing was placed for good hemostasis. The gloves and gowns were changed and attention was turned to the abdomen. The ports were closed with 2-0 monocryl with skin glue. The patient tolerated the procedure well. Sponge lap and needle counts were correct x3. She was taken to the recovery room in stable condition.
--- NOTE | 2022-10-24 09:39 | PC.NURSE ---
pt awake, oral airway removed, tolerated well. sats remain >90% on room air.
[2022-10-24] MEDS: fentaNYL 50 mcg/mL INJ 2mL IVP (09:45)
[2022-10-24] MEDS: HYDROcodone-acetaminophen 5-325 mg Tablet PO ×2 (10:37→17:55)
[2022-10-24] MEDS: dextrose 5%-lactated ringers 1,000 ML 125 ML IV ×2 (10:38→19:16)
--- NOTE | 2022-10-24 12:00 | PC.NURSE ---
PATIENT UP TO CHAIR WITH STANDBY ASSIST VIA SCIENTIFIC [employer]FORMATICS LEADER. AR RN
--- NOTE | 2022-10-24 12:40 | ANE.PACU2 ---
Inpatient post-anesthesia follow up: Airway intact: Yes Vital signs: Temperature 97.8 F Pulse Rate 91 Respiratory Rate 18 Blood Pressure 105/80 Pulse Oximetry 93 Oxygen Delivery Me thod Room Air Oxygen Flow Rate 2 Fraction of Inspir ed Oxygen Hydration adequate: Yes Nausea and vomiting: No Pain level: 1 Mental status: Baseline
[2022-10-24] MEDS: ketorolac 30 mg/mL INJ IVP (12:57)
[2022-10-24] MEDS: acetaminophen 325 mg Tablet 650 MG PO (14:01)
[2022-10-24] MEDS: LORazepam 0.5 mg Tablet PO (17:55)
[2022-10-24] MEDS: docusate sodium 100 mg Capsule PO (19:16)
[2022-10-24] MEDS: cloZAPine 25 mg Tablet 50 MG PO (20:10)
[2022-10-24] MEDS: mirtazapine 15 mg Tablet 45 MG PO (20:11)
[2022-10-24] MEDS: cloZAPine 100 mg Tablet 300 MG PO (20:11)
[2022-10-24] MEDS: oxybutynin chloride XL 5 MG TABLET 15 MG PO (20:11)
[2022-10-24] MEDS: budesonide 0.5 mg/2 mL Neb INHALATION (20:26)
[2022-10-24] MEDS: albuterol 2.5 mg/3 mL Neb INHALATION (20:27)
--- NOTE | 2022-10-25 02:22 | PC.NURSE ---
Patient called out and asked if she could have an Ativan. I explained to her that her dosing is scheduled for twice a day and that she has already taken her Ativan. I asked her if she was feeling anxious or upset and she denied just said that she is having a hard time sleeping. She denies pain at this time. She has been drinking coffee throughout the night and I explained that could be helping her to stay awake. She verbalized understanding.
[2022-10-25 04:01] VITALS: BP 118/75; PULSE 88; RESP 18; TEMP 36.8; O2SAT 95
[2022-10-25] MEDS: HYDROcodone-acetaminophen 5-325 mg Tablet PO (04:21)
--- NOTE | 2022-10-25 05:35 | PC.NURSE ---
Addendum entered by Linda Walker RN 10/25/22 05:49: Patients garcia was taken out at this time. 10ml of normal saline was removed and then garcia was removed catheter was intact upon removal. Patient tolerated procedure well. Vaginal packing was also removed at this time and patient tolerated that procedure as well. Original Note: Patients garcia
[2022-10-25 05:38] LABS: Hematocrit 37.2 % (37.0-47.0); Hemoglobin 12.1 g/dL (11.5-15.3); Mean Corpuscular HGB Conc 32.5 g/dL (30.0-36.0); Mean Corpuscular Volume 92.1 fl (81-99); Mean Platelet Volume 9.7 fL (7.4-10.4); Platelet Count 259 10^3/cmm (130-400); Red Blood Count 4.04 10^6/uL (4.1-5.3); Red Cell Distribution Width 14.2 % (12.1-15.1); White Blood Count 18.3 10^3/uL (4.0-10.0)
--- NOTE | 2022-10-25 06:50 | PM.DCS ---
Discharge Providers Date of Admission: 10/24/22 10:07 Date of Discharge: October 25, 2022 Attending Provider at Admission: Stephany Victoria MD Attending Provider at Discharge: Stephany Victoria MD Primary Care Provider: Evans Olvera MD Diagnoses at Discharge Discharge Diagnosis (1) Uterine prolapse: Status: Acute (2) PMB (postmenopausal bleeding): Status: Acute (3) Urinary incontinence in female: Status: Acute Hospital Course Hospital Course The patient was admitted for surgery. She did well postoperatively. She was ready for discharge on day#1. Physical Exam Narrative: The patient is doing well this morning. No concerns. Packing and catheter have been removed. She is ambulating well. She is tolerating a regular diet and pain is well controlled. Const: COMMON NORMALS: no acute distress, patient oriented x3, no limitations, healthy appearing, alert and well nourished GENERAL APPEARANCE: cooperative, comfortable, well kempt and well developed ORIENTATION/CONSCIOUSNESS: Yes awake, Yes oriented to person, Yes oriented to place and Yes oriented to time Resp: COMMON NORMALS: normal respiratory effort EFFORT & INSPECTION: Yes able to speak in complete sentences GI: COMMON NORMALS: Soft to palpation and non-tender PALPATION: Yes Soft to palpation Extremity: COMMON NORMALS: no calf tenderness Neuro: COMMON NORMALS: patient oriented x3 SENSORIUM/ORIENTATION: Yes alert, Yes oriented to person, Yes oriented to place and Yes oriented to time Psych: APPEARANCE: Yes well kempt Urinary Catheter Management: Oswald: Cath Placed During This Visit: yes, but has since been removed by the nurse Reason for Continuing Indwelling Catheter: Decision to DC Catheter Urinary Catheter Date of Insertion: 10/24/22 Urinary Catheter Time of Insertion: 07:43 Date Urinary Catheter Removed: 10/25/22 Time Urinary Catheter Discontinued: 05:30 Discharge Data Studies Completed and Pending Pending at discharge Category Date Time Status Urine Culture Routine Lab 10/24/22 07:45 Received Pathology: Surgical [PTH] Routine Pth 10/24/22 09:30 Received Laboratory Results WBC 18.3 10^3/uL (4.0-10.0) H 10/25/22 05:25 RBC 4.04 10^6/uL (4.1-5.3) L 10/25/22 05:25 Hgb 12.1 g/dL (11.5-15.3) 10/25/22 05:25 Hct 37.2 % (37.0-47.0) 10/25/22 05:25 MCV 92.1 fl (81-99) 10/25/22 05:25 MCH 30.0 pg (28.0-34.0) 10/25/22 05:25 MCHC 32.5 g/dL (30.0-36.0) 10/25/22 05:25 RDW 14.2 % (12.1-15.1) 10/25/22 05:25 Plt Count 259 10^3/cmm (130-400) 10/25/22 05:25 MPV 9.7 fL (7.4-10.4) 10/25/22 05:25 Neut % (Auto) 70.3 % 10/19/22 10:26 Lymph % (Auto) 18.3 % 10/19/22 10:26 [place] % (Auto) 8.6 % 10/19/22 10:26 Eos % (Auto) 1.9 % 10/19/22 10:26 Baso % (Auto) 0.3 % 10/19/22 10:26 Neut # (Auto) 6.07 10^3/uL (1.8-7.7) 10/19/22 10:26 Lymph # (Auto) 1.6 10^3/uL (0.8-4.8) 10/19/22 10:26 [place] # (Auto) 0.7 10^3/uL (0.2-0.9) 10/19/22 10:26 Eos # (Auto) 0.2 10^3/uL (0.0-0.8) 10/19/22 10:26 Baso # (Auto) 0.0 10^3/uL (0.0-0.1) 10/19/22 10:26 Nucleated RBC % (auto) 0 % 10/19/22 10:26 Nucleated RBCs # 0.0 /100WBC 10/19/22 10:26 Sodium 139 mmol/L (136-145) 10/19/22 10:26 Potassium 4.2 mmol/L (3.5-5.1) 10/19/22 10:26 Chloride 102 mmol/L (98-107) 10/19/22 10:26 Carbon Dioxide 25 mmol/L (22-29) 10/19/22 10:26 Anion Gap 16.2 (5-19) 10/19/22 10:26 BUN 8 mg/dL (6-20) 10/19/22 10:26 Creatinine 0.5 mg/dL (0.5-0.9) 10/19/22 10:26 GFR Calculation 126.7 mL/min (90-130) 10/19/22 10:26 Glucose 97 mg/dL (65-115) 10/19/22 10:26 Calculated Osmolality 286 mOsm/kg (285-295) 10/19/22 10:26 Calcium 9.0 mg/dL (8.5-10.5) 10/19/22 10:26 Blood Type O Negative 10/19/22 10:26 Rho(D) Type Negative 10/19/22 10:26 Antibody Screen Positive 10/19/22 10:26 Antibody Identification Anti-D 10/19/22 10:26 Antigen Identification C Antigen - NEGATIVE 10/19/22 10:26 Vitals Last Vital Signs Temp 98.2 F 10/25/22 04:01 Pulse 88 10/25/22 04:01 Resp 18 10/25/22 04:01 BP 118/75 10/25/22 04:01 Pulse Ox 95 10/25/22 04:01 O2 Del Method 10/25/22 04:01 O2 Flow Rate 2 10/24/22 09:57 Discharge Plan Discharge Patient Disposition: Home Condition: Stable Prescriptions: New hydrocodone-acetaminophen 5-325 mg Tablet 1 tab PO Q4H PRN (Reason: Moderate To Severe Pain) Qty: 20 0RF docusate sodium 100 mg Capsule 100 mg PO BID Qty: 60 0RF Continued Dexilant 60 mg capsule,biphase delayed releas 60 mg PO DAILY@0730 acetaminophen 325 mg tablet 325 mg PO QID PRN (Reason: Pain) benztropine 1 mg tablet 1 mg PO DAILY@0730 Qty: 30 11RF tramadol 50 mg tablet 50 mg PO BID PRN (Reason: pain) 30 Days Qty: 60 2RF Rx Instructions: Refill on or after her 30-day intervals lorazepam 0.5 mg tablet 0.5 mg PO BID Qty: 60 5RF citalopram 40 mg tablet 40 mg PO DAILY Qty: 30 11RF clozapine 200 mg tablet 200 mg PO QAM Qty: 30 11RF clozapine 100 mg tablet 350 mg PO BEDTIME Qty: 105 11RF mirtazapine 45 mg tablet 45 mg PO BEDTIME Qty: 30 11RF triamcinolone acetonide 0.5 % cream 1 applic topical DAILY Qty: 15 2RF budesonide-formoterol [Symbicort] 160-4.5 mcg/actuation HFA aerosol inhaler 2 puff inhalation BID Qty: 10.2 5RF albuterol sulfate 90 mcg/actuation HFA aerosol inhaler 2 puff inhalation Q4H PRN (Reason: shortness of breath or wheezing) Qty: 17 5RF oxybutynin chloride 15 mg tablet extended release 24hr 15 mg PO BEDTIME Qty: 90 1RF fluticasone propionate 50 mcg/actuation spray,suspension 1 spray intranasal BID Qty: 16 5RF atorvastatin 20 mg tablet 20 mg PO DAILY Qty: 90 1RF montelukast 10 mg tablet 10 mg PO DAILY Rx Instructions: TAKE 1 TABLET BY MOUTH EVERY DAY AT 7:30AM meloxicam 7.5 mg tablet 7.5 mg PO BID Rx Instructions: TAKE 1 TABLET BY MOUTH TWICE A DAY baclofen 10 mg tablet 10 mg PO TID Rx Instructions: TAKE 1 TABLET BY MOUTH 3 TIMES A DAY docusate sodium 100 mg capsule 100 mg PO BID PRN (Reason: Constipation) Rx Instructions: TAKE 1 CAPSULE BY MOUTH TWO TIMES DAILY NEEDED FOR CONSTIPATION gabapentin 100 mg capsule 300 mg PO BID Discharge Orders: Discharge Order (Routine); Ordered 10/25/22 Ordered By: Stephany Vitcoria Patient Instructions: Opioid Safety Discharge Attestations Time Spent in Discharge Care*: less than 30 min Quality Metrics Clinical Quality Measures [ No reported AMI, CVA or VTE this stay] Coding Level of Care Code Acute Code for Chg Fwd Diagnoses Uterine prolapse N81.4 PMB (postmenopausal bleeding) N95.0 Urinary incontinence in female R32
[2022-10-25 07:25] VITALS: BP 131/84; PULSE 89; RESP 16; TEMP 36.7
== END 2022-10-25 07:30 | disposition home or self-care (01) ==
LOC: OBGYN 10:09
PROVIDERS: Admitting Provider Obstetrics & Gynecology; PCP Family Medicine Adult Medicine; Visit Provider Obstetrics & Gynecology
PROC: 0UT9FZZ Resection of Uterus, Via Natural or Artificial Opening With Percutaneous Endoscopic Assistance (ICD-10-PCS; CPT 58552; principal; 2022-10-24 07:00)
PROC: 0TJB8ZZ Inspection of Bladder, Via Natural or Artificial Opening Endoscopic (ICD-10-PCS; CPT 52000; 2022-10-24 07:00)
DX: N81.4 Uterovaginal prolapse, unspecified (principal); E78.2 Mixed hyperlipidemia; J44.9 Chronic obstructive pulmonary disease, unspecified; F17.210 Nicotine dependence, cigarettes, uncomplicated
CPT/HCPCS: 58552; 36415; 80048; 80503; 85025; 85027; 86850; 86870; 86900; 86902; 87077; 87086; 87186; 88305; 94640; G0378; J0131; J0690; J1100; J1885; J1940; J2250; J2405; J2704; J3010; J3490; J7030; J7121; J7613; J7626

== ENCOUNTER → 2022-11-02 10:52 | Outpatient (BNVA) | payer MEDICARE, MEDICAID, OTHER, SELFPAY ==
[2022-01-05 10:41] VITALS: BP 132/88; BMI 31.9
== END ==
PROVIDERS: PCP Family Medicine Adult Medicine; Visit Provider Psychiatry & Neurology Psychiatry
DX: F20.9 Schizophrenia, unspecified (principal); F15.21 Other stimulant dependence, in remission
CPT/HCPCS: 80306

== ENCOUNTER → 2022-11-14 11:20 | Outpatient (BNVA) | payer MEDICARE, MEDICAID, SELFPAY ==
[2022-01-05 10:41] VITALS: BP 132/88; BMI 31.9
== END ==
PROVIDERS: PCP Family Medicine Adult Medicine; Visit Provider Family Medicine Adult Medicine
DX: R73.03 Prediabetes (principal); M79.7 Fibromyalgia
CPT/HCPCS: 83036; 84443

== ENCOUNTER 2022-11-29 18:29 | Inpatient (IN) | payer MEDICARE, MEDICAID, SELFPAY ==
[2022-01-05 10:41] VITALS: BP 132/88; BMI 31.9
[2022-11-29 18:43] VITALS: BP 128/76; PULSE 104; RESP 18; TEMP 36.8; O2SAT 93; BMI 30.1
--- NOTE | 2022-11-29 18:49 | ED.C_ITS ---
HPI - Psych General: Chief Complaint: Psychiatric Symptoms Stated Complaint: hearing voices Time Seen by Provider: 11/29/22 18:49 History of Present Illness: Ms. Nolan is a 57-year-old lady with significant past medical history of psychiatric disorder presenting to the emergency department due to concern over auditory hallucinations. She reports history of schizophrenia and hallu cinations for some period of time however they have been worse lately and more distressing to her. Additionally she thinks that she has scars on her hands that are talking to her. The scars may be protestant in nature though it is somewhat unclear. She reports that she has been compliant with her medications and denies illicit substance use. Otherwise denies medical complaints. Intensity symptoms is moderate to severe. Course has worsened. No other specific changes in health, exacerbating, or alleviating factors identified. 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 Chronic bronchitis with COPD (chronic obstructive pulmonary disease) Chronic pain disorder Right shoulder GERD (gastroesophageal reflux disease) Mixed hyperlipidemia Obesity (BMI 30.0-34.9) Osteoarthritis (arthritis due to wear and tear of joints) Other schizophrenia PMB (postmenopausal bleeding) PMB (postmenopausal bleeding) Prediabetes Psychiatric care Smoker unmotivated to quit Thickened endometrium Uterine prolapse Surgical History Status post total abdominal hysterectomy and bilateral salpingo-oophorectomy (MEGAN-BSO) Family History Other CAD (coronary artery disease) Hypertension Denies family history of Colon cancer Ovarian cancer Diabetes Heart disease Breast cancer Cancer Uterine cancer Thyroid disease Stroke Social History Substance/Drug Use: never Do you think of yourself as: Straight/Heterosexual Female Reproductive History: Para: 2 Physical Exam Const: COMMON NORMALS: alert GENERAL APPEARANCE: cooperative and well developed HENMT: COMMON NORMALS: normocephalic and atraumatic HEAD & SCALP: normocephalic and atraumatic THROAT: posterior oropharynx normal Eye: COMMON NORMALS: conjunctivae normal CONJUNCTIVA: Yes conjunctivae normal SCLERA: sclerae normal Neck/C-Spine: COMMON NORMALS: supple GENERAL: Yes trachea midline Resp: COMMON NORMALS: normal respiratory effort EFFORT & INSPECTION: Yes able to speak in complete sentences Cardio: COMMON NORMALS: regular rate and regular rhythm RATE: regular rate RHYTHM: regular rhythm GI: COMMON NORMALS: Soft to palpation PALPATION: Yes Soft to palpation and No Tenderness to palpation present (GI) PERCUSSION: normal to percussion Extremity: GENERAL: Yes normal exam except as noted and No edema Neuro: COMMON NORMALS: moves all extremities SENSORIUM/ORIENTATION: Yes alert and No Orientation impaired Psych: COMMON NORMALS: mental status grossly normal ATTITUDE: Yes bizarre MOOD & AFFECT: Yes depressed mood THOUGHT CONTENT: Yes delusions and Yes Hallucination(s) present Course Vital Signs: Vital signs: Vital Signs Temperature 97.5 F L 11/30/22 15:33 Pulse Rate 87 11/30/22 15:33 Respiratory Rate 16 11/30/22 15:33 Blood Pressure 105/68 11/30/22 15:33 Pulse Oximetry 93 11/30/22 15:33 Oxygen Delivery Me thod Room Air 11/29/22 22:00 MDM - Psych Medical Decision Making 57-year-old lady with history of schizophrenia presenting due to worsening symptoms. Exam as above. No scars identified that the patient reports and reports are talking to her. Labs demonstrate no significant hematologic or metabolic abnormality with exception of perhaps mild dehydration, leukocytosis is nonspecific in the absence of other infectious symptoms.. Urine drug screen and toxic ingestions are with exception of benzodiazepines negative. Given physical exam and clinical history provided there is no indication for imaging at this time. Based on ED evaluation at this point there is no obvious condition that would preclude the patient from inpatient management of psychiatric concerns/symptoms. The results of ED evaluation were discussed with the patient including plan for admission due to requirement for level of care not available if discharged to prevent significant worsening/deterioration. Patient agreeable with plan. Discussed with psychiatry service who was agreeable to admit patient. Medical Records I reviewed the patient's medical records. Lab Data I reviewed the patient's lab results. 11/29/22 19:20 11/29/22 19:20 Laboratory Results WBC 13.0 10^3/uL (4.0-10.0) H 11/29/22 19:20 RBC 4.06 10^6/uL (4.1-5.3) L 11/29/22 19:20 Hgb 12.1 g/dL (11.5-15.3) 11/29/22 19:20 Hct 36.9 % (37.0-47.0) L 11/29/22 19:20 MCV 90.9 fl (81-99) 11/29/22 19:20 MCH 29.8 pg (28.0-34.0) 11/29/22 19: MCHC 32.8 g/dL (30.0-36.0) 11/29/22 19:20 RDW 13.6 % (12.1-15.1) 11/29/22 19:20 Plt Count 255 10^3/cmm (130-400) 11/29/22 19:20 MPV 9.3 fL (7.4-10.4) 11/29/22 19:20 Neut % (Auto) 66.2 % 11/29/22 19:20 Lymph % (Auto) 22.3 % 11/29/22 19:20 [place] % (Auto) 8.4 % 11/29/22 19:20 Eos % (Auto) 2.5 % 11/29/22 19:20 Baso % (Auto) 0.2 % 11/29/22 19:20 Neut # (Auto) 8.59 10^3/uL (1.8-7.7) H 11/29/22 19:20 Lymph # (Auto) 2.9 10^3/uL (0.8-4.8) 11/29/22 19:20 [place] # (Auto) 1.1 10^3/uL (0.2-0.9) H 11/29/22 19:20 Eos # (Auto) 0.3 10^3/uL (0.0-0.8) 11/29/22 19:20 Baso # (Auto) 0.0 10^3/uL (0.0-0.1) 11/29/22 19:20 Nucleated RBC % (auto) 0 % 11/29/22 19: Nucleated RBCs # 0.0 /100WBC 11/29/22 19:20 Sodium 135 mmol/L (136-145) L 11/29/22 19:20 Potassium 3.8 mmol/L (3.5-5.1) 11/29/22 19:20 Chloride 98 mmol/L (98-107) 11/29/22 19:20 Carbon Dioxide 25 mmol/L (22-29) 11/29/22 19:20 Anion Gap 15.8 (5-19) 11/29/22 19:20 BUN 6 mg/dL (6-20) 11/29/22 19:20 Creatinine 0.5 mg/dL (0.5-0.9) 11/29/22 19:20 GFR Calculation 126.7 mL/min (90-130) 11/29/22 19:20 Glucose 100 mg/dL (65-115) 11/29/22 19:20 Calculated Osmolality 278 mOsm/kg (285-295) L 11/29/22 19:20 Calcium 8.9 mg/dL (8.5-10.5) 11/29/22 19:20 Total Bilirubin 0.2 mg/dL (0.15-1.2) 11/29/22 19:20 AST 21 U/L (0-32) 11/29/22 19:20 ALT 23 U/L (0-33) 11/29/22 19:20 Alkaline Phosphatase 126 U/L (35-105) H 11/29/22 19:20 Total Protein 6.7 g/dL (6.6-8.7) 11/29/22 19:20 Albumin 4.3 g/dL (3.5-5.2) 11/29/22 19:20 Globulin 2.4 g/dL (1.3-4.6) 11/29/22 19:20 Salicylates < 0.3 mg/dL (3-10) L 11/29/22 19:20 Urine Opiates Screen Negative ng/mL (Negative) 11/29/22 19:00 Acetaminophen < 5.0 ug/mL (10-30) L 11/29/22 19:20 Ur Barbiturates Screen Negative ng/mL (Negative) 11/29/22 19:00 Ur Phencyclidine Scrn Negative ng/mL (Negative) 11/29/22 19:00 Ur Amphetamines Screen Negative ng/mL (Negative) 11/29/22 19:00 U Benzodiazepines Scrn Positive ng/mL (Negative) H 11/29/22 19:00 Urine Cocaine Screen Negative ng/mL (Negative) 11/29/22 19:00 U Marijuana (THC) Screen Negative ng/mL (Negative) 11/29/22 19:00 Ethyl Alcohol < 10 mg/dL (0-10) 11/29/22 19:20 Discharge Plan Discharge Patient Disposition: Admitted As Inpatient Admit Provider: Elton Hidalgo Clinical Impression: Auditory hallucinations, Psychotic disorder with delusions Condition: Stable Discharge Diet: Usual diet Discharge Activity: Resume usual activity Coding Level of Care Code ED Sewage Screen Operator for 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
[2022-11-29 19:28] LABS: Basophils % 0.2 %; Eosinophils # 0.3 10^3/uL (0.0-0.8); Eosinophils % 2.5 %; Hematocrit 36.9 % (37.0-47.0); Hemoglobin 12.1 g/dL (11.5-15.3); Lymphocytes # 2.9 10^3/uL (0.8-4.8); Lymphocytes % 22.3 %; Mean Corpuscular HGB Conc 32.8 g/dL (30.0-36.0); Mean Corpuscular Hemoglobin 29.8 pg (28.0-34.0); Mean Corpuscular Volume 90.9 fl (81-99); Mean Platelet Volume 9.3 fL (7.4-10.4); Monocytes # 1.1 10^3/uL (0.2-0.9); Monocytes % 8.4 %; Neutrophils # 8.59 10^3/uL (1.8-7.7); Neutrophils % 66.2 %; Nucleated Red Blood Cells % 0 %; Platelet Count 255 10^3/cmm (130-400); Red Blood Count 4.06 10^6/uL (4.1-5.3); Red Cell Distribution Width 13.6 % (12.1-15.1)
[2022-11-29 19:50] LABS: Acetaminophen < 5.0 ug/mL (10-30); Alanine Aminotransferase 23 U/L (0-33); Albumin Level 4.3 g/dL (3.5-5.2); Alcohol Level < 10 mg/dL (0-10); Alkaline Phosphatase 126 U/L (35-105); Anion Gap 15.8 (5-19); Aspartate Amino Transferase 21 U/L (0-32); Blood Urea Nitrogen 6 mg/dL (6-20); Calcium 8.9 mg/dL (8.5-10.5); Carbon Dioxide 25 mmol/L (22-29); Chloride 98 mmol/L (98-107); Globulin 2.4 g/dL (1.3-4.6); Glomerular Filtration Rate 126.7 mL/min (90-130); Glucose 100 mg/dL (65-115); Osmolality Calculated 278 mOsm/kg (285-295); Potassium 3.8 mmol/L (3.5-5.1); Salicylate < 0.3 mg/dL (3-10); Sodium 135 mmol/L (136-145); Total Bilirubin 0.2 mg/dL (0.15-1.2); Total Protein 6.7 g/dL (6.6-8.7)
[2022-11-29 20:08] LABS: Amphetamines Screen Urine Negative (Negative); Barbiturates Screen Urine Negative (Negative); Benzodiazepines Screen Urine Positive (Negative); Cocaine Screen Urine Negative (Negative); Opiate Screen Urine Negative (Negative); PCP Screen Urine Negative (Negative); THC Screen Urine Negative (Negative)
[2022-11-29] MEDS: LORazepam 0.5 mg Tablet PO (20:45)
[2022-11-29] MEDS: TRAMadol 50 mg Tablet PO (20:45)
[2022-11-29 21:16] VITALS: BP 125/87; PULSE 86; RESP 18; TEMP 36.4; O2SAT 96
[2022-11-29 22:00] VITALS: BP 125/87; PULSE 86; RESP 18; TEMP 36.4; O2SAT 96
--- NOTE | 2022-11-30 00:10 | PC.NURSE ---
Pt arrived to [facility] via w/c w/ER nurse and security staff at side. Pt appears anxious and is withdrawn. Pt is cooperative with staff. All questions answered, polices and procedures explained.
[2022-11-30 06:00] VITALS: RESP 16
[2022-11-30] MEDS: atorvastatin 40 mg Tablet 20 MG PO (09:52)
[2022-11-30] MEDS: TRAMadol 50 mg Tablet PO (09:53)
[2022-11-30] MEDS: meloxicam 7.5 mg tablet PO (09:53)
[2022-11-30] MEDS: LORazepam 0.5 mg Tablet PO (09:53)
[2022-11-30] MEDS: citalopram 20 mg Tablet 40 MG PO (09:53)
[2022-11-30] MEDS: gabapentin 300 mg Capsule PO (09:53)
[2022-11-30] MEDS: fluticasone nasal spray 16gm Btl 1 SPRAY INTRANASAL (09:54)
[2022-11-30] MEDS: cloZAPine 100 mg Tablet 200 MG PO (10:41)
[2022-11-30] MEDS: benztropine 1 mg Tablet PO ×2 (10:41)
[2022-11-30] MEDS: pantoprazole DR 40 mg Tablet PO (11:30)
[2022-11-30] MEDS: nicotine 2 mg Gum BUCCAL ×2 (11:47→15:31)
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
[2022-11-30 14:00] VITALS: BP 105/68; PULSE 87; RESP 16; TEMP 36.4; O2SAT 93
--- NOTE | 2022-11-30 15:11 | DCPLANNER ---
IMM was printed and expalined and give to pt and copy put in file.
[2022-11-30 15:33] VITALS: BP 105/68; PULSE 87; RESP 16; TEMP 36.4; O2SAT 93
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
== END 2022-11-30 16:00 | disposition home or self-care (01) | DRG 885 ==
LOC: ER 20:49 → NP 20:52
PROVIDERS: Admitting Provider Psychiatry & Neurology Psychiatry; Emergency Provider Emergency Medicine; PCP Family Medicine Adult Medicine; Visit Provider Psychiatry & Neurology Psychiatry
DX: F20.9 Schizophrenia, unspecified (principal); R45.851 Suicidal ideations; F41.9 Anxiety disorder, unspecified; F32.A Depression, unspecified; G89.29 Other chronic pain; Z62.811 Personal history of psychological abuse in childhood; Z79.899 Other long term (current) drug therapy
CPT/HCPCS: 36415; 80053; 80306; 80307; 85025; 97165; 99238; 99285

== ENCOUNTER → 2022-12-08 13:56 | Outpatient (BNVA) | payer MEDICARE, MEDICAID, SELFPAY ==
[2022-01-05 10:41] VITALS: BP 132/88; BMI 31.9
== END ==
PROVIDERS: PCP Family Medicine Adult Medicine; Visit Provider Nurse Practitioner
DX: R39.9 Unspecified symptoms and signs involving the genitourinary system (principal)
CPT/HCPCS: 81000

== ENCOUNTER → 2023-01-01 14:43 | Outpatient (BNVA) | payer MEDICARE, MEDICAID, SELFPAY ==
[2022-01-05 10:41] VITALS: BP 132/88; BMI 31.9
== END ==
PROVIDERS: PCP Family Medicine Adult Medicine; Visit Provider Psychiatry & Neurology Psychiatry
DX: F20.9 Schizophrenia, unspecified (principal); Z79.899 Other long term (current) drug therapy
CPT/HCPCS: 85007; 85027

== ENCOUNTER 2023-01-27 15:19 | Emergency (ER) | payer MEDICARE, MEDICAID, SELFPAY ==
[2022-01-05 10:41] VITALS: BP 132/88; BMI 31.9
[2023-01-27 15:20] VITALS: BP 118/68; PULSE 100; RESP 18; TEMP 36.8; O2SAT 96; BMI 28.1
--- NOTE | 2023-01-27 15:31 | XRR_ITS ---
PROCEDURE INFORMATION: Exam: XR Lumbosacral Spine Exam date and time: 01/27/2023 3:54 PM Age: 57 years old Clinical indication: Injury or trauma; Fall; Blunt trauma (contusions or hematomas); Additional info: Fall, pain TECHNIQUE: Imaging protocol: Radiologic exam of the lumbosacral spine. Views: 2 or 3 views. COMPARISON: CR XR sacrum coccyx min 2V [id number] 09/21/2022 6:49 PM FINDINGS: Bones/joints: There are minimal anterior compression deformities of the T11 and T12 vertebra of unknown chronicity. Degenerative changes are present in the visualized spine. Soft tissues: Unremarkable. XR/XR lumbar spine 2-3V* [id number] IMPRESSION: Minimal anterior compression deformities of the T11 and T12 vertebra of unknown chronicity. Consider CT scan of the thorax for further evaluation if clinically warranted.
--- NOTE | 2023-01-27 15:31 | XRR_ITS ---
PROCEDURE INFORMATION: Exam: XR Sacrum and Coccyx, 2 or More Views Exam date and time: 01/27/2023 3:54 PM Age: 57 years old Clinical indication: Injury or trauma; Fall; Blunt trauma (contusions or hematomas); Additional info: Fall, pain TECHNIQUE: Imaging protocol: XR of the sacrum and coccyx, 2 or more views. COMPARISON: CR XR sacrum coccyx min 2V [id number] 09/21/2022 6:49 PM FINDINGS: Bones/joints: There are [id number] degenerative changes across the pubic symphysis. Nrfi-lu-xrvzofco degenerative changes are present in the visualized lower lumbar spine. Soft tissues: Normal. XR/XR sacrum coccyx min 2V [id number] IMPRESSION: No acute findings.
--- NOTE | 2023-01-27 15:31 | XRR_ITS ---
PROCEDURE INFORMATION: Exam: XR Thoracic Spine Exam date and time: 01/27/2023 3:54 PM Age: 57 years old Clinical indication: Injury or trauma; Fall; Blunt trauma (contusions or hematomas); Additional info: Fall, pain TECHNIQUE: Imaging protocol: Radiologic exam of the thoracic spine. Views: 3 views. COMPARISON: CT abdomen pelvis w con* [id number] 11/11/2020 2:31 AM FINDINGS: Bones/joints: Multilevel small thoracic marginal osteophyte formations. Multilevel mild thoracic endplate degenerative changes. There are minimal anterior compression deformities of the T11 and T12 vertebra of unknown chronicity. Soft tissues: Unremarkable. XR/XR thoracic spine min 4V [id number] IMPRESSION: There are minimal anterior compression deformities of the T11 and T12 vertebra of unknown chronicity.
--- NOTE | 2023-01-27 15:37 | ED_ITS ---
HPI - Skin/Abscess/Foreign Bdy General: Chief complaint: Skin/Abscess/Foreign Body Stated complaint: RED AREA ON CHEST Time Seen by Provider: 01/27/23 15:22 History of Present Illness: This patient is a 57 year old presenting by EMS due to a boil on her chest. She says that it started two and a half days ago and she tried squeezing it - but it didn't do any good. She says that she saw her doctor yesterday and he told her to sterilize a pin and open it at home. She did try that (although she notes that she did not sterilize the pin) and nothing came out. She is tender in that area. No fever. No malaise. She also notes that her abdomen feels big today. She says that normally it is big and hard, but today it is big and soft. No abdominal pain. She also notes back pain after a fall about a month ago. She says that she fell off a kitchen chair while trying to hang a picture, and she fell onto her bottom, then back to hit her head. She was seen and had eugenio in her head, but they didn't look at her back. She is still having pain in her mid and lower back, and at the level of T 1. She also has pain in her butt bones and tailbone when she sits up. She is concerned that it feels like she has a bump at C7, T1. [facility] ED PFSH: Medical History (Updated 01/27/23 @ 17:27 by Janine Ann MD) 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 Chronic bronchitis with COPD (chronic obstructive pulmonary disease) Chronic pain disorder Right shoulder GERD (gastroesophageal reflux disease) Mixed hyperlipidemia Obesity (BMI 30.0-34.9) Osteoarthritis (arthritis due to wear and tear of joints) Other schizophrenia PMB (postmenopausal bleeding) PMB (postmenopausal bleeding) Prediabetes Psychiatric care Sebaceous cyst of breast Smoker unmotivated to quit Thickened endometrium Uterine prolapse Surgical History (Updated 12/09/22 @ 14:42 by Stephany Victoria MD) S/P laparoscopic assisted vaginal hysterectomy (LAVH) Status post bilateral salpingo-oophorectomy (BSO) Family History Other CAD (coronary artery disease) Hypertension Denies family history of Colon cancer Ovarian cancer Diabetes Heart disease Breast cancer Cancer Uterine cancer Thyroid disease Stroke Social History Substance/Drug Use: never Do you think of yourself as: Straight/Heterosexual Female Reproductive History: Para: 2 Physical Exam Const: COMMON NORMALS: no acute distress, patient oriented x3, no limitations and alert GENERAL APPEARANCE: cooperative and comfortable HENMT: HEAD & SCALP: normal to inspection FACE & SINUS: normal facial exam Eye: GENERAL EYE: appearance normal, both eyes and all related structures Neck/C-Spine: COMMON NORMALS: supple, no meningeal signs and no JVD Chest: COMMONS NORMALS: normal inspection of the chest (1 cm diameter area of redness, no fluctuance or warmth) Resp: COMMON NORMALS: normal respiratory effort, No use of accessory muscles and clear to auscultation bilaterally AUSCULTATION: clear to auscultation bilaterally Cardio: COMMON NORMALS: no JVD, regular rate, regular rhythm and No murmurs present (Cardio) RATE: regular rate RHYTHM: regular rhythm GI: COMMON NORMALS: Normal to inspection, nondistended, normoactive bowel sounds present, Soft to palpation and non-tender INSPECTION: Yes normal to inspection AUSCULTATION: Yes normoactive bowel sounds PALPATION: Yes Soft to palpation Back/Pelvis: OTHER: no deformities noted - however patient complains of pain at T1, t10- L5 and into the coccyx. Extremity: COMMON NORMALS: normal to inspection Neuro: COMMON NORMALS: patient oriented x3, moves all extremities, no focal motor deficits and no sensory deficits noted SENSORIUM/ORIENTATION: Yes alert MENINGEAL SIGNS: Yes no meningeal signs Psych: COMMON NORMALS: mental status grossly normal, cooperative and normal affect Skin: COMMON NORMALS: no rashes or lesions noted and turgor normal GENERAL SKIN EXAM: no rashes or lesions noted and turgor normal Course Vital Signs: Vital signs: Vital Signs Temperature 98.2 F 01/27/23 15:20 Pulse Rate 92 01/27/23 17:53 Respiratory Rate 18 01/27/23 17:53 Blood Pressure 129/89 01/27/23 17:53 Pulse Oximetry 96 01/27/23 17:53 Oxygen Delivery Me thod Room Air 01/27/23 17:53 MDM - Skin/Abscess/Foreign Bdy Medicial Decision Making Small skin infection - no fluctuance to drain at this time. Warm compresses and antibiotics - as she stuck a pin in it at home. Back pain - 1 month out from a fall - at risk for compression fractures. Xrays ordered. Mild thoracic compression fractures. No intervention needed. Patient says she is out of her tramadol and it won't be refilled until Sunday. I declined to write her for any additional medications. Lab Data Radiology Impressions Lumbar Spine X-Ray 01/27/23 15:31 IMPRESSION: Minimal anterior compression deformities of the T11 and T12 vertebra of unknown chronicity. Consider CT scan of the thorax for further evaluation if clinically warranted. Sacrum and Coccyx X-Ray 01/27/23 15:31 IMPRESSION: No acute findings. Thoracic Spine X-Ray 01/27/23 15:31 IMPRESSION: There are minimal anterior compression deformities of the T11 and T12 vertebra of unknown chronicity. Discharge Plan Discharge Patient Disposition: Home Clinical Impression: Abscess of skin or subcutaneous tissue, Compression fx, thoracic spine Condition: Stable Prescriptions: New Bactrim DS 800-160 mg tablet 1 tab PO BID 5 Days Qty: 10 0RF No Action Dexilant 60 mg capsule,biphase delayed releas 60 mg PO DAILY@0730 Rx Instructions: Take one capsule by mouth every day. acetaminophen [Tylenol] 325 mg tablet 325 mg PO QID PRN (Reason: Pain) Ativan 0.5 mg tablet 0.5 mg PO BID Qty: 60 5RF mirtazapine 45 mg tablet 45 mg PO BEDTIME Qty: 30 11RF benztropine 1 mg tablet 1 mg PO DAILY@0730 Qty: 30 11RF Rx Instructions: Take one tablet by mouth every day at 07:30. sulfamethoxazole-trimethoprim [Bactrim DS] 800-160 mg tablet 1 tab PO BID 5 Days Qty: 10 0RF meloxicam 7.5 mg tablet 7.5 mg PO BID PRN (Reason: pain) Qty: 60 0RF Rx Instructions: TAKE 1 TABLET BY MOUTH TWICE A DAY as needed oxybutynin chloride 15 mg tablet extended release 24hr 15 mg PO BEDTIME Qty: 90 1RF tramadol 50 mg tablet 50 mg PO BID PRN (Reason: pain) 30 Days Qty: 60 2RF Rx Instructions: Refill on or after her 30-day intervals baclofen 10 mg tablet 10 mg PO BID PRN (Reason: pain) Qty: 30 0RF atorvastatin [Lipitor] 20 mg tablet 20 mg PO DAILY Rx Instructions: Take one tablet by mouth every day. ProAir HFA 90 mcg/actuation HFA aerosol inhaler 2 puff inhalation Q4H PRN (Reason: shortness of breath or wheezing) Celexa 40 mg tablet 40 mg PO DAILY Rx Instructions: Take one tablet by mouth every day. Clozaril 100 mg tablet 350 mg PO BEDTIME Clozaril 200 mg tablet 200 mg PO QAM 24 Hour Allergy Relief 50 mcg/actuation spray,suspension 1 spray intranasal BID Neurontin 300 mg capsule See Rx Instructions .ROUTE .COMPLEX Rx Instructions: TAKE 1 CAPSULE BY MOUTH TWICE A DAY FOR CHRONIC PAIN Singulair 10 mg tablet 10 mg PO DAILY Rx Instructions: TAKE 1 TABLET BY MOUTH EVERY DAY AT 7:30AM Triderm 0.5 % cream 1 applic topical DAILY Discharge Orders: Discharge ED (Routine); Ordered 01/27/23 Ordered By: Janine Ann Referrals: Evans Olvera MD [Primary Care Provider] - Patient Instructions: Opioid Safety, Pain Management Coding Level of Care Code ED Legal Support Analyst for 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
[2023-01-27 16:41] VITALS: BP 131/86; PULSE 95; RESP 17; O2SAT 95
[2023-01-27 17:52] VITALS: BP 129/89; PULSE 92; RESP 18; O2SAT 96
[2023-01-27 17:53] VITALS: BP 129/89; PULSE 92; RESP 18; O2SAT 96
== END 2023-01-27 17:57 | disposition home or self-care (01) ==
PROVIDERS: Emergency Provider Emergency Medicine; PCP Family Medicine Adult Medicine
DX: L02.213 Cutaneous abscess of chest wall (principal); S22.080A Wedge compression fracture of T11-T12 vertebra, initial encounter for closed fracture; J44.9 Chronic obstructive pulmonary disease, unspecified; E78.2 Mixed hyperlipidemia; W07.XXXA Fall from chair, initial encounter
CPT/HCPCS: 72074; 72100; 72220; 99283

== ENCOUNTER → 2023-02-06 13:26 | Outpatient (BNVA) | payer MEDICARE, MEDICAID, SELFPAY ==
[2023-02-06 10:08] VITALS: BP 132/88; BMI 31.9
== END ==
PROVIDERS: PCP Family Medicine Adult Medicine; Visit Provider Psychiatry & Neurology Psychiatry
DX: F20.9 Schizophrenia, unspecified (principal); Z79.899 Other long term (current) drug therapy
CPT/HCPCS: 85007; 85027

== ENCOUNTER 2023-02-10 18:37 | Emergency (ER) | payer MEDICARE, MEDICAID, SELFPAY ==
[2023-02-06 10:08] VITALS: BP 132/88; BMI 31.9
[2023-02-10 18:39] VITALS: BP 134/82; PULSE 99; RESP 16; TEMP 36.7; O2SAT 95
--- NOTE | 2023-02-10 19:11 | ED.C_ITS ---
HPI - Psych General: Chief Complaint: Psychiatric Symptoms Stated Complaint: HALLUCINATIONS; ANXIETY Time Seen by Provider: 02/10/23 18:47 History of Present Illness: 87 years old female with a history of schizoaffective disorder presents emergency room with sister due to acute hallucination and change in mood within the past few days. Upon present emergency room patient better pleasant and denies any suicidal homicidal ideation. Patient further declining treatment and reviews that she felt comfortable at home. 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 Chronic bronchitis with COPD (chronic obstructive pulmonary disease) Chronic pain disorder Right shoulder GERD (gastroesophageal reflux disease) Mixed hyperlipidemia Obesity (BMI 30.0-34.9) Osteoarthritis (arthritis due to wear and tear of joints) Other schizophrenia PMB (postmenopausal bleeding) PMB (postmenopausal bleeding) Prediabetes Psychiatric care Sebaceous cyst of breast Smoker unmotivated to quit Thickened endometrium Uterine prolapse Surgical History (Updated 12/09/22 @ 14:42 by Stephany Victoria MD) S/P laparoscopic assisted vaginal hysterectomy (LAVH) Status post bilateral salpingo-oophorectomy (BSO) Family History Other CAD (coronary artery disease) Hypertension Denies family history of Colon cancer Ovarian cancer Diabetes Heart disease Breast cancer Cancer Uterine cancer Thyroid disease Stroke Social History Substance/Drug Use: never Do you think of yourself as: Straight/Heterosexual Female Reproductive History: Para: 2 Physical Exam Const: COMMON NORMALS: no acute distress, average body habitus, patient oriented x3, no limitations, healthy appearing, alert and well nourished GENERAL APPEARANCE: well kempt HENMT: COMMON NORMALS: normocephalic, atraumatic, hearing grossly normal bilaterally, external ears normal, EAC's normal, TM's normal bilaterally, Normal external nose present, Normal nasal mucous membranes and turbinates present, moist oral mucous membranes, oropharynx normal, dentition normal and gingiva normal HEAD & SCALP: normocephalic and atraumatic NOSE: Normal external nose present and Normal nasal mucous membranes and turbinates present EXTERNAL EAR: Yes external ears normal EXTERNAL AUDITORY CANAL: EAC's normal TYMPANIC MEMBRANE: TM's normal bilaterally Neck/C-Spine: COMMON NORMALS: full ROM, no lymphadenopathy, supple, no meningeal signs, no JVD, Thyroid normal and No carotid bruits THYROID: Thyroid normal Chest: COMMONS NORMALS: normal inspection of the chest, normal palpation of entire chest wall, normal inspection of the breasts and normal palpation of the breasts Breast/axilla inspection: Yes normal inspection of the breasts BREAST/AXILLA PALPATION: Yes normal palpation of the breasts Resp: COMMON NORMALS: normal respiratory effort, No retractions, No use of accessory muscles, clear to auscultation bilaterally and percussion normal AUSCULTATION: clear to auscultation bilaterally PERCUSSION: percussion normal Cardio: COMMON NORMALS: no JVD Neuro: COMMON NORMALS: patient oriented x3 SENSORIUM/ORIENTATION: Yes alert MENINGEAL SIGNS: Yes no meningeal signs Psych: APPEARANCE: Yes grossly normal, Yes well kempt, No disheveled and No other Course Vital Signs: Vital signs: Vital Signs Temperature 98.1 F 02/10/23 18:39 Pulse Rate 99 02/10/23 18:39 Respiratory Rate 16 02/10/23 18:39 Blood Pressure 134/82 02/10/23 18:39 Pulse Oximetry 95 02/10/23 18:39 Oxygen Delivery Me thod Room Air 02/10/23 18:39 MDM - Psych Medical Decision Making Patient made comfortable emergency room. Sister at bedside. Patient content denies any suicidal ideation homicidal ideation at this time. Able to review patient's medical records and medication list. Offered patient inpatient admission for further evaluation and treatment for mood disorder but patient declined. Patient promised to follow-up with psychiatrist on Sunday for further care Differential Diagnosis Likely acute psychosis, bipolar disorder, depression, drug-induced psychotic disorder and acute anxiety Discharge Plan Discharge Patient Disposition: Home Clinical Impression: Mood disorder Condition: Stable Prescriptions: No Action Dexilant 60 mg capsule,biphase delayed releas 60 mg PO DAILY@0730 Rx Instructions: Take one capsule by mouth every day. acetaminophen [Tylenol] 325 mg tablet 325 mg PO QID PRN (Reason: Pain) Ativan 0.5 mg tablet 0.5 mg PO BID Qty: 60 5RF mirtazapine 45 mg tablet 45 mg PO BEDTIME Qty: 30 11RF benztropine 1 mg tablet 1 mg PO DAILY@0730 Qty: 30 11RF Rx Instructions: Take one tablet by mouth every day at 07:30. sulfamethoxazole-trimethoprim [Bactrim DS] 800-160 mg tablet 1 tab PO BID 5 Days Qty: 10 0RF meloxicam 7.5 mg tablet 7.5 mg PO BID PRN (Reason: pain) Qty: 60 0RF Rx Instructions: TAKE 1 TABLET BY MOUTH TWICE A DAY as needed oxybutynin chloride 15 mg tablet extended release 24hr 15 mg PO BEDTIME Qty: 90 1RF tramadol 50 mg tablet 50 mg PO BID PRN (Reason: pain) 30 Days Qty: 60 2RF Rx Instructions: Refill on or after her 30-day intervals budesonide-formoterol [Symbicort] 160-4.5 mcg/actuation HFA aerosol inhaler 2 puff inhalation BID Qty: 10.2 5RF baclofen 10 mg tablet 10 mg PO BID PRN (Reason: pain) Qty: 30 0RF atorvastatin [Lipitor] 20 mg tablet 20 mg PO DAILY Rx Instructions: Take one tablet by mouth every day. ProAir HFA 90 mcg/actuation HFA aerosol inhaler 2 puff inhalation Q4H PRN (Reason: shortness of breath or wheezing) Celexa 40 mg tablet 40 mg PO DAILY Rx Instructions: Take one tablet by mouth every day. Clozaril 100 mg tablet 350 mg PO BEDTIME Clozaril 200 mg tablet 200 mg PO QAM 24 Hour Allergy Relief 50 mcg/actuation spray,suspension 1 spray intranasal BID Neurontin 300 mg capsule See Rx Instructions .ROUTE .COMPLEX Rx Instructions: TAKE 1 CAPSULE BY MOUTH TWICE A DAY FOR CHRONIC PAIN Singulair 10 mg tablet 10 mg PO DAILY Rx Instructions: TAKE 1 TABLET BY MOUTH EVERY DAY AT 7:30AM Triderm 0.5 % cream 1 applic topical DAILY Discharge Orders: Discharge ED (Routine); Ordered 02/10/23 Ordered By: Dayana Mack Referrals: Eavns Olvera MD [Primary Care Provider] - Discharge Diet: Advance as tolerated Discharge Activity: Resume usual activity Patient Instructions: Opioid Safety, Pain Management Coding Level of Care Code ED Operating Table Assembler for 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
--- NOTE | 2023-02-10 19:13 | PC.NURSE ---
Dr Mack determined patient was not suicidal and order placed for discharge.
== END 2023-02-10 19:14 | disposition home or self-care (01) ==
PROVIDERS: Emergency Provider Family Medicine; PCP Family Medicine Adult Medicine
DX: F39 Unspecified mood [affective] disorder (principal); J44.9 Chronic obstructive pulmonary disease, unspecified; E78.2 Mixed hyperlipidemia
CPT/HCPCS: 99283

== ENCOUNTER → 2023-03-07 13:40 | Outpatient (BNVA) | payer MEDICARE, MEDICAID, SELFPAY ==
[2023-02-06 10:08] VITALS: BP 132/88; BMI 31.9
== END ==
PROVIDERS: PCP Family Medicine Adult Medicine; Visit Provider Psychiatry & Neurology Psychiatry
DX: F20.9 Schizophrenia, unspecified (principal); Z79.899 Other long term (current) drug therapy
CPT/HCPCS: 85007; 85027

== ENCOUNTER → 2023-03-21 13:33 | Outpatient (BNVA) | payer MEDICARE, MEDICAID, SELFPAY ==
[2023-02-06 10:08] VITALS: BP 132/88; BMI 31.9
== END ==
PROVIDERS: PCP Family Medicine Adult Medicine; Visit Provider Internal Medicine Cardiovascular Disease
DX: R42 Dizziness and giddiness (principal); E78.2 Mixed hyperlipidemia; F17.210 Nicotine dependence, cigarettes, uncomplicated; E66.9 Obesity, unspecified; Z68.31 Body mass index [BMI] 31.0-31.9, adult
CPT/HCPCS: 99214

== ENCOUNTER 2023-03-25 14:13 | Emergency (ER) | payer MEDICARE, MEDICAID, SELFPAY ==
[2023-02-06 10:08] VITALS: BP 132/88; BMI 31.9
[2023-03-25 14:15] VITALS: BP 123/76; PULSE 99; RESP 16; TEMP 36.9; O2SAT 95
--- NOTE | 2023-03-25 14:25 | W.ED.DIZZY ---
HPI - Dizziness General: Chief Complaint: Dizziness Stated Complaint: SYNCOPE Time Seen by Provider: 03/25/23 14:16 History of Present Illness: HPI Narrative: Patient is a 57 yo female that presents with complaints of near syncope and jerking motion. Onset 1 hour ago. 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, severe, in sustained remission Chronic bronchitis with COPD (chronic obstructive pulmonary disease) Chronic pain disorder Right shoulder GERD (gastroesophageal reflux disease) Lower extremity pain, bilateral Mixed hyperlipidemia 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 Obesity (BMI 30.0-34.9) Osteoarthritis (arthritis due to wear and tear of joints) Other schizophrenia PMB (postmenopausal bleeding) Prediabetes Psychiatric care Smoker unmotivated to quit Uterine prolapse Surgical History S/P laparoscopic assisted vaginal hysterectomy (LAVH) Status post bilateral salpingo-oophorectomy (BSO) Family History Other CAD (coronary artery disease) Hypertension Social History Substance/Drug Use: never Do you think of yourself as: Straight/Heterosexual Female Reproductive History: Para: 2 Physical Exam Const: COMMON NORMALS: no acute distress, patient oriented x3 and alert GENERAL APPEARANCE: cooperative ORIENTATION/CONSCIOUSNESS: Yes awake, Yes oriented to person, Yes oriented to place and Yes oriented to time HENMT: COMMON NORMALS: normocephalic and atraumatic HEAD & SCALP: normocephalic and atraumatic FACE & SINUS: normal facial exam MOUTH: Normal oral and palatal mucosa present THROAT: posterior oropharynx normal Eye: COMMON NORMALS: Equal, round and reactive pupils present, EOMs intact bilaterally, conjunctivae normal and no scleral icterus GENERAL EYE: appearance normal, both eyes and all related structures ALIGNMENT: Yes alignment normal PERIORBITAL: periorbital findings normal CONJUNCTIVA: Yes conjunctivae normal PUPIL: Yes Equal, round and reactive pupils present Neck/C-Spine: COMMON NORMALS: full ROM GENERAL: Yes normal visual inspection Lymph: LYMPHATIC: no lymphadenopathy noted Chest: COMMONS NORMALS: normal inspection of the chest Breast/axilla inspection: Yes no chest deformity, asymmetry, normal contours, no nodules, masses, tenderness Resp: COMMON NORMALS: normal respiratory effort, No retractions, No use of accessory muscles and clear to auscultation bilaterally EFFORT & INSPECTION: Yes able to speak in complete sentences and Yes symmetric chest movement AUSCULTATION: clear to auscultation bilaterally Cardio: COMMON NORMALS: regular rate, regular rhythm and Peripheral pulses 2+ throughout RATE: regular rate RHYTHM: regular rhythm PERIPHERAL PULSES: Peripheral pulses 2+ throughout GI: COMMON NORMALS: Normal to inspection, nondistended, normoactive bowel sounds present, Soft to palpation, non-tender and No hepatosplenomegaly present INSPECTION: Yes normal to inspection AUSCULTATION: Yes normoactive bowel sounds PALPATION: Yes Soft to palpation and Yes No hepatosplenomegaly present RECTAL EXAM: deferred Extremity: COMMON NORMALS: normal to inspection GENERAL: Yes normal exam except as noted Neuro: COMMON NORMALS: patient oriented x3 SENSORIUM/ORIENTATION: Yes alert, Yes oriented to person, Yes oriented to place and Yes oriented to time CRANIAL NERVES: Yes CN normal except as noted Psych: COMMON NORMALS: mental status grossly normal, Normal thought process present, cooperative, activity/motor behavior normal, denies homicidal ideation and denies suicidal ideation THOUGHT PROCESS: Normal thought process present Skin: COMMON NORMALS: no rashes or lesions noted, no wounds and turgor normal GENERAL SKIN EXAM: no rashes or lesions noted and turgor normal Course Vital Signs: Vital signs: Vital Signs Temperature 98.4 F 03/25/23 14:15 Pulse Rate 93 03/25/23 14:58 Respiratory Rate 16 03/25/23 14:58 Blood Pressure 125/84 03/25/23 14:58 Pulse Oximetry 96 03/25/23 14:58 Oxygen Delivery Me thod Room Air 03/25/23 14:58 MDM - Dizziness Medical Decision Making Was evaluated in the emergency department due to abnormal, involuntary muscle movement. Patient reports abrupt onset with near syncopal episode. Frontal diagnosis includes infection, electrolyte disturbance, cardiovascular abnormality. Patient underwent laboratory evaluation, chest x-ray, EKG. No acute findings on x-ray, EKG is unchanged from baseline and no significant electrolyte abnormalities. Patient does have a slight increase 0.06 and her blood cells. Troponin is within normal limits and has no evidence of a UTI. Patient's symptoms did resolve with 500 cc bolus. Believe that she is struggling with dehydration. She and I have discussed adequate oral intake at home. She is getting discharged home and return here for new concerning or worsening symptoms otherwise follow-up with PCP. All questions answered Lab Data 03/25/23 14:00 03/25/23 14:00 Radiology Impressions Chest X-Ray 03/25/23 14:31 IMPRESSION: No acute findings. Laboratory Results WBC 11.49 10^3/uL (3.29-11.43) H 03/25/23 14:00 RBC 4.30 10^6/uL (3.85-5.65) 03/25/23 14:00 Hgb 12.90 g/dL (11.27-16.99) 03/25/23 14:00 Hct 39.2 % (36-47) 03/25/23 14:00 MCV 91.2 fl (85-98) 03/25/23 14:00 MCH 30.0 pg (27-33) 03/25/23 14:00 MCHC 32.9 g/dL (30-55) 03/25/23 14:00 RDW 14.0 % (12.1-15.1) 03/25/23 14:00 Plt Count 266 10^3/cmm (157-399) 03/25/23 14:00 MPV 9.9 fL (7.4-10.4) 03/25/23 14:00 Neut % (Auto) 67.4 % 03/25/23 14:00 Lymph % (Auto) 20.9 % 03/25/23 14:00 [place] % (Auto) 9.5 % 03/25/23 14:00 Eos % (Auto) 1.3 % 03/25/23 14:00 Baso % (Auto) 0.3 % 03/25/23 14:00 Neut # (Auto) 7.75 10^3/uL (1.8-7.7) H 03/25/23 14:00 Lymph # (Auto) 2.4 10^3/uL (0.8-4.8) 03/25/23 14:00 [place] # (Auto) 1.1 10^3/uL (0.2-0.9) H 03/25/23 14:00 Eos # (Auto) 0.2 10^3/uL (0.0-0.8) 03/25/23 14:00 Baso # (Auto) 0.0 10^3/uL (0.0-0.1) 03/25/23 14:00 Nucleated RBC % (auto) 0 % 03/25/23 14:00 Nucleated RBCs # 0.0 /100WBC 03/25/23 14:00 Sodium 142 mmol/L (136-145) 03/25/23 14:00 Potassium 4.3 mmol/L (3.5-5.1) 03/25/23 14:00 Chloride 103 mmol/L (98-107) 03/25/23 14:00 Carbon Dioxide 28 mmol/L (22-29) 03/25/23 14:00 Anion Gap 15.3 (5-19) 03/25/23 14:00 BUN 7 mg/dL (6-20) 03/25/23 14:00 Creatinine 0.6 mg/dL (0.5-0.9) 03/25/23 14:00 GFR Calculation 102.7 mL/min (90-130) 03/25/23 14:00 Glucose 83 mg/dL (65-115) 03/25/23 14:00 Calculated Osmolality 291 mOsm/kg (285-295) 03/25/23 14:00 Calcium 9.4 mg/dL (8.5-10.5) 03/25/23 14:00 Total Bilirubin 0.2 mg/dL (0.15-1.2) 03/25/23 14:00 AST 14 U/L (0-32) 03/25/23 14:00 ALT 19 U/L (0-33) 03/25/23 14:00 Alkaline Phosphatase 129 U/L (35-105) H 03/25/23 14:00 Troponin T Baseline 6 ng/L (0-10) 03/25/23 14:00 Total Protein 6.6 g/dL (6.6-8.7) 03/25/23 14:00 Albumin 4.6 g/dL (3.5-5.2) 03/25/23 14:00 Globulin 2.0 g/dL (1.3-4.6) 03/25/23 14:00 Urine Color Light yellow (Yellow) 03/25/23 15:12 Urine Appearance Clear (CLEAR) 03/25/23 15:12 Urine pH 7 (5-7) 03/25/23 15:12 Ur Specific [place] 1.000 (1.005-1.030) L 03/25/23 15:12 Urine Protein Neg (Negative) 03/25/23 15:12 Urine Glucose (UA) Norm (Normal) 03/25/23 15:12 Urine Ketones Negative (Negative) 03/25/23 15:12 Urine Blood Neg (Negative) 03/25/23 15:12 Urine Nitrate Negative (Negative) 03/25/23 15:12 Urine Bilirubin Neg (Negative) 03/25/23 15:12 Urine Urobilinogen Norm mg/dL (Negative) 03/25/23 15:12 Ur Leukocyte Esterase Negative (Negative) 03/25/23 15:12 SARS-CoV-2 Ag (Rapid) negative (Negative) 03/25/23 14:35 Discharge Plan Discharge Patient Disposition: Home Clinical Impression: Acute dehydration Condition: Stable Prescriptions: No Action Dexilant 60 mg capsule,biphase delayed releas 60 mg PO DAILY@0730 Rx Instructions: Take one capsule by mouth every day. acetaminophen [Tylenol] 325 mg tablet 325 mg PO QID PRN (Reason: Pain) Ativan 0.5 mg tablet 0.5 mg PO BID Qty: 60 5RF mirtazapine 45 mg tablet 45 mg PO BEDTIME Qty: 30 11RF benztropine 1 mg tablet 1 mg PO DAILY@0730 Qty: 30 11RF Rx Instructions: Take one tablet by mouth every day at 07:30. oxybutynin chloride 15 mg tablet extended release 24hr 15 mg PO BID Qty: 180 1RF tramadol 50 mg tablet 50 mg PO BID PRN (Reason: pain) 30 Days Qty: 60 2RF Rx Instructions: Refill on or after her 30-day intervals budesonide-formoterol [Symbicort] 160-4.5 mcg/actuation HFA aerosol inhaler 2 puff inhalation BID Qty: 10.2 5RF baclofen 10 mg tablet 10 mg PO BID PRN (Reason: pain) Qty: 30 0RF meloxicam 7.5 mg tablet 7.5 mg PO BID PRN (Reason: pain) Qty: 60 0RF Rx Instructions: TAKE 1 TABLET BY MOUTH TWICE A DAY as needed 24 Hour Allergy Relief 50 mcg/actuation spray,suspension 1 spray intranasal BID Qty: 15.8 5RF atorvastatin [Lipitor] 20 mg tablet 20 mg PO DAILY Rx Instructions: Take one tablet by mouth every day. ProAir HFA 90 mcg/actuation HFA aerosol inhaler 2 puff inhalation Q4H PRN (Reason: shortness of breath or wheezing) Celexa 40 mg tablet 40 mg PO DAILY Rx Instructions: Take one tablet by mouth every day. Clozaril 100 mg tablet 350 mg PO BEDTIME Clozaril 200 mg tablet 200 mg PO QAM Neurontin 300 mg capsule See Rx Instructions .ROUTE .COMPLEX Rx Instructions: TAKE 1 CAPSULE BY MOUTH TWICE A DAY FOR CHRONIC PAIN Singulair 10 mg tablet 10 mg PO DAILY Rx Instructions: TAKE 1 TABLET BY MOUTH EVERY DAY AT 7:30AM Triderm 0.5 % cream 1 applic topical DAILY Discharge Orders: Discharge ED (Routine); Ordered 03/25/23 Ordered By: Marily Watt McTeeabbie Referrals: Evans Olvera MD [Primary Care Provider] - Discharge Diet: Advance as tolerated Discharge Activity: Resume usual activity Patient Instructions: Dehydration (ED), Pain Management Coding Level of Care Code ED 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
--- NOTE | 2023-03-25 14:31 | XRR_ITS ---
PROCEDURE INFORMATION: Exam: XR Chest Exam date and time: 03/25/2023 2:39 PM Age: 57 years old Clinical indication: Dyspnea; Additional info: Near syncope TECHNIQUE: Imaging protocol: Radiologic exam of the chest. Views: 1 view. COMPARISON: CR XR chest 1V portable [id number] 01/24/2022 7:42 PM FINDINGS: Lungs: Curvilinear scarring noted in the left base. No consolidation. Pleural spaces: Unremarkable. No pleural effusion. No pneumothorax. Heart/Mediastinum: Unremarkable. No cardiomegaly. Bones/joints: Unremarkable. XR/XR chest 1V portable [id number] IMPRESSION: No acute findings.
[2023-03-25 14:37] VITALS: BP 116/77; PULSE 95; RESP 15; O2SAT 95
--- NOTE | 2023-03-25 14:55 | ECG_ITS ---
[facility] Test Date: 2023-03-25 Pat Name: Hilda Nolan Department: Room: Gender: Female Card Hanger: : 1965 Requested By: Marily Watt Order Number: [id number] Reading MD: Nikhil Vazquez Measurements Intervals [place] Rate: 93 P: 57 MI: 135 QRS: 4 QRSD: 95 T: 34 QT: 378 QTc: 472 Interpretive Statements SINUS RHYTHM POSSIBLE LEFT ATRIAL ENLARGEMENT [-0.1mV P-WAVE IN V1/V2] INCOMPLETE RIGHT BUNDLE BRANCH BLOCK [90+ ms QRS DURATION, TERMINAL R IN V1/V2, 40+ ms S IN I/aVL/V4/V5/V6] Compared to ECG 01/24/2022 19:48:53 Incomplete right bundle-branch block now present Electronically Signed On 03-25-2023 17:00:48 CDT by Nikhil Vazquez [id number]
[2023-03-25] MEDS: sodium chloride 0.9% 500 ML 999 ML IV (14:57)
[2023-03-25 14:58] VITALS: BP 125/84; PULSE 93; RESP 16; O2SAT 96
[2023-03-25 14:59] LABS: Basophils % 0.3 %; Eosinophils # 0.2 10^3/uL (0.0-0.8); Eosinophils % 1.3 %; Hematocrit 39.2 % (36-47); Lymphocytes # 2.4 10^3/uL (0.8-4.8); Lymphocytes % 20.9 %; Mean Corpuscular HGB Conc 32.9 g/dL (30-55); Mean Corpuscular Volume 91.2 fl (85-98); Mean Platelet Volume 9.9 fL (7.4-10.4); Monocytes # 1.1 10^3/uL (0.2-0.9); Monocytes % 9.5 %; Neutrophils # 7.75 10^3/uL (1.8-7.7); Neutrophils % 67.4 %; Nucleated Red Blood Cells % 0 %; Platelet Count 266 10^3/cmm (157-399); White Blood Count 11.49 10^3/uL (3.29-11.43)
[2023-03-25 15:11] LABS: SARS Covid-2 Antigen negative (Negative)
[2023-03-25 15:12] LABS: Alanine Aminotransferase 19 U/L (0-33); Albumin Level 4.6 g/dL (3.5-5.2); Alkaline Phosphatase 129 U/L (35-105); Anion Gap 15.3 (5-19); Aspartate Amino Transferase 14 U/L (0-32); Blood Urea Nitrogen 7 mg/dL (6-20); Calcium 9.4 mg/dL (8.5-10.5); Carbon Dioxide 28 mmol/L (22-29); Chloride 103 mmol/L (98-107); Glomerular Filtration Rate 102.7 mL/min (90-130); Glucose 83 mg/dL (65-115); Osmolality Calculated 291 mOsm/kg (285-295); Potassium 4.3 mmol/L (3.5-5.1); Sodium 142 mmol/L (136-145); Total Bilirubin 0.2 mg/dL (0.15-1.2); Total Protein 6.6 g/dL (6.6-8.7)
[2023-03-25 15:22] LABS: Troponin(5th) Baseline 6 ng/L (0-10)
[2023-03-25 15:34] LABS: Add Urine Microscopic? NO; Charge for UA Resulting for Rev
[2023-03-25 15:57] LABS: Bilirubin Urine Neg (Negative); Blood Urine Neg (Negative); Glucose Urine UA Norm (Normal); Ketones Urine Negative (Negative); Leukocyte Esterase Urine Negative (Negative); Nitrate Urine Negative (Negative); Protein Urine Neg (Negative); Urine Appearance Clear (CLEAR); Urine Color Light yellow (Yellow); Urobilinogen Urine Norm (Negative); pH Urine 7 (5-7)
[2023-03-25 17:39] VITALS: BP 125/84; PULSE 93; RESP 16; O2SAT 96
== END 2023-03-25 16:42 | disposition home or self-care (01) ==
PROVIDERS: Emergency Provider Nurse Practitioner; PCP Family Medicine Adult Medicine
DX: E86.0 Dehydration (principal); J44.9 Chronic obstructive pulmonary disease, unspecified; E78.2 Mixed hyperlipidemia; Z20.822 Contact with and (suspected) exposure to COVID-19
CPT/HCPCS: 71045; 80053; 81003; 84484; 85025; 87426; 93005; 96360; 99285; J7040

== ENCOUNTER 2023-04-07 13:44 | Emergency (ER) | payer MEDICARE, MEDICAID, SELFPAY ==
[2023-02-06 10:08] VITALS: BP 132/88; BMI 31.9
[2023-04-07 13:46] VITALS: BP 118/73; PULSE 101; RESP 18; TEMP 36.6; O2SAT 94; BMI 31.8
--- NOTE | 2023-04-07 13:51 | ED_ITS ---
HPI - Weakness General: Chief complaint: Weakness Stated complaint: TREMORS Time Seen by Provider: 04/07/23 13:48 Source: patient and EMS Mode of arrival: EMS Limitations: no limitations History of Present Illness: 57-year-old female is very well-known to ER states she has had a tremor over the last few days. She was seen by her PCP prescribed primidone but is not filled it. She does take benztropine at home as well as she is on multiple medication she states its caused her to have tremors in the past. 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, severe, in sustained remission Chronic bronchitis with COPD (chronic obstructive pulmonary disease) Chronic pain disorder Right shoulder GERD (gastroesophageal reflux disease) Lower extremity pain, bilateral Mixed hyperlipidemia 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 Obesity (BMI 30.0-34.9) Osteoarthritis (arthritis due to wear and tear of joints) Other schizophrenia PMB (postmenopausal bleeding) Prediabetes Psychiatric care Smoker unmotivated to quit 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 Uterine prolapse Surgical History S/P laparoscopic assisted vaginal hysterectomy (LAVH) Status post bilateral salpingo-oophorectomy (BSO) Family History Other CAD (coronary artery disease) Hypertension Social History Substance/Drug Use: never Do you think of yourself as: Straight/Heterosexual Female Reproductive History: Para: 2 Physical Exam Const: COMMON NORMALS: no acute distress, patient oriented x3 and healthy appearing HENMT: COMMON NORMALS: normocephalic and atraumatic HEAD & SCALP: normocephalic and atraumatic Neck/C-Spine: COMMON NORMALS: full ROM and supple Chest: COMMONS NORMALS: normal inspection of the chest and normal palpation of entire chest wall Resp: COMMON NORMALS: normal respiratory effort, No retractions, No use of accessory muscles and clear to auscultation bilaterally AUSCULTATION: clear to auscultation bilaterally Cardio: COMMON NORMALS: regular rate, regular rhythm and No murmurs present (Cardio) RATE: regular rate RHYTHM: regular rhythm Extremity: COMMON NORMALS: normal to inspection and full ROM Neuro: COMMON NORMALS: patient oriented x3, moves all extremities and no focal motor deficits Psych: COMMON NORMALS: mental status grossly normal, Normal thought process present and cooperative THOUGHT PROCESS: Normal thought process present Skin: COMMON NORMALS: no rashes or lesions noted and no wounds GENERAL SKIN EXAM: no rashes or lesions noted Course Vital Signs: Vital signs: Vital Signs Temperature 97.8 F 04/07/23 13:46 Pulse Rate 101 H 04/07/23 13:46 Respiratory Rate 18 04/07/23 13:46 Blood Pressure 118/73 04/07/23 13:46 Pulse Oximetry 94 04/07/23 13:46 Oxygen Delivery Me thod Room Air 04/07/23 13:46 MDM - Weakness Medical Decision Making Patient presents here with a tremor that is improved here she is well-appearing here she is to feel her meds that was prescribed and follow-up with PCP and return if worsening she understands agrees to plan. No radiology studies performed this visit Discharge Plan Discharge Patient Disposition: Home Clinical Impression: Tremor Condition: Stable Prescriptions: No Action Dexilant 60 mg capsule,biphase delayed releas 60 mg PO DAILY@0730 Rx Instructions: Take one capsule by mouth every day. acetaminophen [Tylenol] 325 mg tablet 325 mg PO QID PRN (Reason: Pain) Ativan 0.5 mg tablet 0.5 mg PO BID Qty: 60 5RF mirtazapine 45 mg tablet 45 mg PO BEDTIME Qty: 30 11RF benztropine 1 mg tablet 1 mg PO DAILY@0730 Qty: 30 11RF Rx Instructions: Take one tablet by mouth every day at 07:30. oxybutynin chloride 15 mg tablet extended release 24hr 15 mg PO BID Qty: 180 1RF aspirin 81 mg tablet,delayed release (DR/EC) 81 mg PO DAILY primidone 125 mg tablet 125 mg PO BID Qty: 60 5RF tramadol 50 mg tablet 50 mg PO BID PRN (Reason: pain) 30 Days Qty: 60 2RF Rx Instructions: Refill on or after her 30-day intervals budesonide-formoterol [Symbicort] 160-4.5 mcg/actuation HFA aerosol inhaler 2 puff inhalation BID Qty: 10.2 5RF baclofen 10 mg tablet 10 mg PO BID PRN (Reason: pain) Qty: 30 0RF 24 Hour Allergy Relief 50 mcg/actuation spray,suspension 1 spray intranasal BID Qty: 15.8 5RF meloxicam 7.5 mg tablet 7.5 mg PO BID PRN (Reason: pain) Qty: 60 0RF Rx Instructions: TAKE 1 TABLET BY MOUTH TWICE A DAY as needed albuterol sulfate [ProAir HFA] 90 mcg/actuation HFA aerosol inhaler 2 puff inhalation Q4H PRN (Reason: shortness of breath or wheezing) Qty: 17 2RF atorvastatin 20 mg tablet See Rx Instructions .ROUTE .COMPLEX Qty: 90 3RF Dose Instruction: TAKE 1 TABLET BY MOUTH EVERY DAY Rx Instructions: TAKE 1 TABLET BY MOUTH EVERY DAY Celexa 40 mg tablet 40 mg PO DAILY Rx Instructions: Take one tablet by mouth every day. Clozaril 100 mg tablet 350 mg PO BEDTIME Clozaril 200 mg tablet 200 mg PO QAM Neurontin 300 mg capsule See Rx Instructions .ROUTE .COMPLEX Rx Instructions: TAKE 1 CAPSULE BY MOUTH TWICE A DAY FOR CHRONIC PAIN Singulair 10 mg tablet 10 mg PO DAILY Rx Instructions: TAKE 1 TABLET BY MOUTH EVERY DAY AT 7:30AM Triderm 0.5 % cream 1 applic topical DAILY Discharge Orders: Discharge ED (Routine); Ordered 04/07/23 Ordered By: Kade Smith Referrals: Evans Olvera MD [Primary Care Provider] - 1-3 days Discharge Diet: Advance as tolerated Discharge Activity: Resume usual activity Patient Instructions: Tremors (ED) Coding Level of Care Code ED Senior Office Support Assistant Sosa for [facility]
[2023-04-07] MEDS: benztropine 1 mg/mL SDV 2 mL IM (13:55)
[2023-04-07] MEDS: LORazepam 2 mg/mL INJ 1 mL 1 MG IM (13:55)
--- NOTE | 2023-04-07 14:12 | PC.NURSE ---
UPON DISCHARGE, PT REQUESTED MEDICAID RIDE BACK HOME. REGISTRATION NOTIFIED AND IS SETTING RIDE UP.
== END 2023-04-07 14:12 | disposition home or self-care (01) ==
PROVIDERS: Emergency Provider Emergency Medicine; PCP Family Medicine Adult Medicine
DX: R25.1 Tremor, unspecified (principal); Z79.82 Long term (current) use of aspirin; J44.9 Chronic obstructive pulmonary disease, unspecified; E78.2 Mixed hyperlipidemia
CPT/HCPCS: 96372; 99284; J0515; J2060

== ENCOUNTER 2023-04-11 10:28 | Emergency (ER) | payer MEDICARE, MEDICAID, SELFPAY ==
[2023-02-06 10:08] VITALS: BP 132/88; BMI 31.9
[2023-04-11 10:30] VITALS: BP 125/85; PULSE 106; TEMP 36.8; O2SAT 94; BMI 29.2
--- NOTE | 2023-04-11 10:36 | W.ED.GENADLT ---
HPI - General Adult General: Chief complaint: Anxiety Stated complaint: Anxiety Time Seen by Provider: 04/11/23 10:29 Source: patient and EMS Mode of arrival: EMS Limitations: no limitations History of Present Illness: 57 yo female that has a hx of anxiety. she states she is out of her lorazepam and doesnt get it filled until sunday. She denies si and hi. She is well appearing here. Denies pain. 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, severe, in sustained remission Chronic bronchitis with COPD (chronic obstructive pulmonary disease) Chronic pain disorder Right shoulder GERD (gastroesophageal reflux disease) Lower extremity pain, bilateral Mixed hyperlipidemia 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 Obesity (BMI 30.0-34.9) Osteoarthritis (arthritis due to wear and tear of joints) Other schizophrenia PMB (postmenopausal bleeding) Prediabetes Psychiatric care Smoker unmotivated to quit 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 Uterine prolapse Surgical History S/P laparoscopic assisted vaginal hysterectomy (LAVH) Status post bilateral salpingo-oophorectomy (BSO) Family History Other CAD (coronary artery disease) Hypertension Social History Substance/Drug Use: never Do you think of yourself as: Straight/Heterosexual Female Reproductive History: Para: 2 Physical Exam Const: COMMON NORMALS: no acute distress and patient oriented x3 HENMT: COMMON NORMALS: normocephalic and atraumatic HEAD & SCALP: normocephalic and atraumatic Eye: COMMON NORMALS: conjunctivae normal CONJUNCTIVA: Yes conjunctivae normal Neck/C-Spine: COMMON NORMALS: supple Chest: COMMONS NORMALS: normal inspection of the chest Resp: COMMON NORMALS: normal respiratory effort Cardio: COMMON NORMALS: regular rate and regular rhythm RATE: regular rate RHYTHM: regular rhythm Extremity: COMMON NORMALS: normal to inspection Neuro: COMMON NORMALS: patient oriented x3 Psych: COMMON NORMALS: mental status grossly normal, Normal thought process present and cooperative THOUGHT PROCESS: Normal thought process present Skin: COMMON NORMALS: no rashes or lesions noted GENERAL SKIN EXAM: no rashes or lesions noted [facility] - General Adult Medical Decision Making pt presents here with anxiety and is out of her meds. Informed her I would prescribe her 8 lorazepam until she gets her filled. she is stable for discharge. Medical Records I reviewed the patient's medical records. No radiology studies performed this visit Discharge Plan Discharge Patient Disposition: Home Clinical Impression: Anxiety Condition: Stable Prescriptions: New Ativan 0.5 mg tablet 0.5 mg PO BID Qty: 8 0RF No Action Dexilant 60 mg capsule,biphase delayed releas 60 mg PO DAILY@0730 Rx Instructions: Take one capsule by mouth every day. acetaminophen [Tylenol] 325 mg tablet 325 mg PO QID PRN (Reason: Pain) Ativan 0.5 mg tablet 0.5 mg PO BID Qty: 60 5RF mirtazapine 45 mg tablet 45 mg PO BEDTIME Qty: 30 11RF benztropine 1 mg tablet 1 mg PO DAILY@0730 Qty: 30 11RF Rx Instructions: Take one tablet by mouth every day at 07:30. oxybutynin chloride 15 mg tablet extended release 24hr 15 mg PO BID Qty: 180 1RF aspirin 81 mg tablet,delayed release (DR/EC) 81 mg PO DAILY primidone 125 mg tablet 125 mg PO BID Qty: 60 5RF tramadol 50 mg tablet 50 mg PO BID PRN (Reason: pain) 30 Days Qty: 60 2RF Rx Instructions: Refill on or after her 30-day intervals budesonide-formoterol [Symbicort] 160-4.5 mcg/actuation HFA aerosol inhaler 2 puff inhalation BID Qty: 10.2 5RF baclofen 10 mg tablet 10 mg PO BID PRN (Reason: pain) Qty: 30 0RF 24 Hour Allergy Relief 50 mcg/actuation spray,suspension 1 spray intranasal BID Qty: 15.8 5RF meloxicam 7.5 mg tablet 7.5 mg PO BID PRN (Reason: pain) Qty: 60 0RF Rx Instructions: TAKE 1 TABLET BY MOUTH TWICE A DAY as needed albuterol sulfate [ProAir HFA] 90 mcg/actuation HFA aerosol inhaler 2 puff inhalation Q4H PRN (Reason: shortness of breath or wheezing) Qty: 17 2RF atorvastatin 20 mg tablet See Rx Instructions .ROUTE .COMPLEX Qty: 90 3RF Dose Instruction: TAKE 1 TABLET BY MOUTH EVERY DAY Rx Instructions: TAKE 1 TABLET BY MOUTH EVERY DAY Celexa 40 mg tablet 40 mg PO DAILY Rx Instructions: Take one tablet by mouth every day. Clozaril 100 mg tablet 350 mg PO BEDTIME Clozaril 200 mg tablet 200 mg PO QAM Neurontin 300 mg capsule See Rx Instructions .ROUTE .COMPLEX Rx Instructions: TAKE 1 CAPSULE BY MOUTH TWICE A DAY FOR CHRONIC PAIN Singulair 10 mg tablet 10 mg PO DAILY Rx Instructions: TAKE 1 TABLET BY MOUTH EVERY DAY AT 7:30AM Triderm 0.5 % cream 1 applic topical DAILY Discharge Orders: Discharge ED (Routine); Ordered 04/11/23 Ordered By: Kade Smith Referrals: Evans Olvera MD [Primary Care Provider] - 1-3 days Discharge Diet: Advance as tolerated Discharge Activity: Resume usual activity Patient Instructions: Anxiety (ED) Coding Level of Care Code ED Student Records Coordinator for 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
[2023-04-11] MEDS: LORazepam 0.5 mg Tablet PO (10:53)
== END 2023-04-11 11:04 | disposition home or self-care (01) ==
PROVIDERS: Emergency Provider Emergency Medicine; PCP Family Medicine Adult Medicine
DX: F41.9 Anxiety disorder, unspecified (principal); Z79.82 Long term (current) use of aspirin; J44.9 Chronic obstructive pulmonary disease, unspecified; E78.2 Mixed hyperlipidemia
CPT/HCPCS: 99283

== ENCOUNTER → 2023-05-03 09:45 | Outpatient (BNVA) | payer MEDICARE, MEDICAID, OTHER, SELFPAY ==
[2023-02-06 10:08] VITALS: BP 132/88; BMI 31.9
== END ==
PROVIDERS: PCP Family Medicine Adult Medicine; Visit Provider Psychiatry & Neurology Psychiatry
DX: F20.9 Schizophrenia, unspecified (principal); Z79.899 Other long term (current) drug therapy; F33.42 Major depressive disorder, recurrent, in full remission; F17.200 Nicotine dependence, unspecified, uncomplicated
CPT/HCPCS: 85007; 85027

== ENCOUNTER → 2023-06-07 09:56 | Outpatient (BNVA) | payer MEDICARE, MEDICAID, OTHER, SELFPAY ==
[2023-02-06 10:08] VITALS: BP 132/88; BMI 31.9
== END ==
PROVIDERS: PCP Family Medicine Adult Medicine; Visit Provider Psychiatry & Neurology Psychiatry
DX: F20.9 Schizophrenia, unspecified (principal); Z79.899 Other long term (current) drug therapy; E66.9 Obesity, unspecified
CPT/HCPCS: 80061; 85007; 85027

== ENCOUNTER 2023-06-08 05:48 | Emergency (ER) | payer MEDICARE, MEDICAID, SELFPAY ==
[2023-02-06 10:08] VITALS: BP 132/88; BMI 31.9
[2023-06-08 05:49] VITALS: BMI 31.8
[2023-06-08 05:52] VITALS: BP 115/79; PULSE 97; RESP 16; TEMP 36.6; O2SAT 96
[2023-06-08 06:31] VITALS: RESP 18
[2023-06-08] MEDS: morphine 4 mg/mL SDV 1 mL IM (06:31)
[2023-06-08] MEDS: ondansetron 4 MG Tablet PO (06:31)
--- NOTE | 2023-06-08 07:38 | W.ED.NECK ---
HPI - Neck Pain/Injury General: Chief Complaint: Neck Pain/Injury Stated Complaint: FALL Time Seen by Provider: 06/08/23 06:16 History of Present Illness: This patient is a 58-year-old white female who presents to the emergency department complaining of neck pain and low back pain. Patient states she sustained fractures of her back in October of this year. She is taking tramadol for the pain. She was requesting a soft cervical collar. 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 Obesity (BMI 30.0-34.9) Osteoarthritis (arthritis due to wear and tear of joints) Other schizophrenia PMB (postmenopausal bleeding) Prediabetes Psychiatric care Smoker unmotivated to quit Tremor Uterine prolapse Surgical History S/P laparoscopic assisted vaginal hysterectomy (LAVH) Status post bilateral salpingo-oophorectomy (BSO) Family History Other CAD (coronary artery disease) Hypertension Social History Substance/Drug Use: never Do you think of yourself as: Straight/Heterosexual Female Reproductive History: Para: 2 Physical Exam Const: COMMON NORMALS: no acute distress, patient oriented x3 and no limitations GENERAL APPEARANCE: cooperative and comfortable HENMT: COMMON NORMALS: normocephalic, atraumatic, Normal nasal mucous membranes and turbinates present, moist oral mucous membranes and oropharynx normal HEAD & SCALP: normal to inspection, normocephalic and atraumatic FACE & SINUS: normal facial exam NOSE: Normal nasal mucous membranes and turbinates present Eye: COMMON NORMALS: Equal, round and reactive pupils present, EOMs intact bilaterally and conjunctivae normal GENERAL EYE: appearance normal, both eyes and all related structures CONJUNCTIVA: Yes conjunctivae normal PUPIL: Yes Equal, round and reactive pupils present Neck/C-Spine: COMMON NORMALS: full ROM, supple and no JVD GENERAL: Yes normal visual inspection CERVICAL SPINE: Yes cervical ROM normal and Yes Paracervical muscle tenderness Chest: COMMONS NORMALS: normal inspection of the chest Resp: COMMON NORMALS: normal respiratory effort and clear to auscultation bilaterally AUSCULTATION: clear to auscultation bilaterally Cardio: COMMON NORMALS: no JVD, regular rate, regular rhythm, No gallops present (Cardio), No murmurs present (Cardio) and No rub (Cardio) RATE: regular rate RHYTHM: regular rhythm GI: COMMON NORMALS: Normal to inspection, nondistended, normoactive bowel sounds present, Soft to palpation and non-tender AUSCULTATION: Yes normoactive bowel sounds PALPATION: Yes Soft to palpation : COMMON NORMALS: Yes no CVA tenderness BLADDER/KIDNEY EXAM: Yes no CVA tenderness Back/Pelvis: COMMON NORMALS: no CVA tenderness and thoracic and lumbar spine normal to inspection Extremity: COMMON NORMALS: normal to inspection Neuro: COMMON NORMALS: patient oriented x3 and CN's II-XII intact bilaterally Psych: COMMON NORMALS: mental status grossly normal, Normal thought process present and cooperative THOUGHT PROCESS: Normal thought process present Skin: COMMON NORMALS: no rashes or lesions noted, turgor normal and no jaundice GENERAL SKIN EXAM: no rashes or lesions noted and turgor normal Course Vital Signs: Vital signs: Vital Signs Temperature 97.8 F 06/08/23 05:52 Pulse Rate 97 06/08/23 05:52 Respiratory Rate 18 06/08/23 06:31 Blood Pressure 115/79 06/08/23 05:52 Pulse Oximetry 96 06/08/23 05:52 MDM - Neck Pain/Injury Medical Decision Making Patient was given 4 mg of morphine IM for her pain in the emergency department. Nursing staff did check on a soft collar and we do not have soft collars. I recommended patient to try pharmacy or medical supply store. Continue tramadol as needed for pain. Follow-up with primary care physician for ongoing management of the chronic neck pain and back pain. She was discharged in stable condition. No radiology studies performed this visit Discharge Plan Discharge Patient Disposition: Home Clinical Impression: Neck pain Condition: Stable Prescriptions: No Action acetaminophen [Tylenol] 325 mg tablet 325 mg PO QID PRN (Reason: Pain) Ativan 0.5 mg tablet 0.5 mg PO BID Qty: 60 5RF tramadol 50 mg tablet 50 mg PO BID PRN (Reason: pain) 30 Days Qty: 60 3RF Rx Instructions: Refill on or after her 30-day intervals benztropine 1 mg tablet 1 mg PO DAILY@0730 Qty: 30 11RF Rx Instructions: Take one tablet by mouth every day at 07:30. oxybutynin chloride 15 mg tablet extended release 24hr 15 mg PO BID Qty: 180 1RF aspirin 81 mg tablet,delayed release (DR/EC) 81 mg PO DAILY budesonide-formoterol [Symbicort] 160-4.5 mcg/actuation HFA aerosol inhaler 2 puff inhalation BID Qty: 10.2 5RF 24 Hour Allergy Relief 50 mcg/actuation spray,suspension 1 spray intranasal BID Qty: 15.8 5RF albuterol sulfate [ProAir HFA] 90 mcg/actuation HFA aerosol inhaler 2 puff inhalation Q4H PRN (Reason: shortness of breath or wheezing) Qty: 17 2RF atorvastatin 20 mg tablet See Rx Instructions .ROUTE .COMPLEX Qty: 90 3RF Dose Instruction: TAKE 1 TABLET BY MOUTH EVERY DAY Rx Instructions: TAKE 1 TABLET BY MOUTH EVERY DAY Neurontin 300 mg capsule See Rx Instructions .ROUTE .COMPLEX Qty: 60 5RF Rx Instructions: TAKE 1 CAPSULE BY MOUTH TWICE A DAY FOR CHRONIC PAIN meloxicam 7.5 mg tablet 7.5 mg PO BID PRN (Reason: pain) Qty: 60 0RF Rx Instructions: TAKE 1 TABLET BY MOUTH TWICE A DAY as needed mirtazapine 45 mg tablet 45 mg PO BEDTIME Qty: 30 11RF baclofen 10 mg tablet 10 mg PO BID PRN (Reason: pain) Qty: 180 0RF dexlansoprazole 60 mg capsule,biphase delayed releas 60 mg PO DAILY PRN (Reason: acid reflux) Qty: 90 2RF docusate sodium 250 mg capsule 250 mg PO DAILY PRN (Reason: constipation) Qty: 60 5RF Rx Instructions: one or two cap daily as needed for constipation Celexa 40 mg tablet 40 mg PO DAILY Rx Instructions: Take one tablet by mouth every day. Clozaril 100 mg tablet 350 mg PO BEDTIME Clozaril 200 mg tablet 200 mg PO QAM Singulair 10 mg tablet 10 mg PO DAILY Rx Instructions: TAKE 1 TABLET BY MOUTH EVERY DAY AT 7:30AM Triderm 0.5 % cream 1 applic topical DAILY Discharge Orders: Discharge ED (Routine); Ordered 06/08/23 Ordered By: Pipe Davis Referrals: Evans Olvera MD [Primary Care Provider] - Patient Instructions: Chronic Neck Pain (DC), Pain Management Coding Level of Care Code ED Conference Services Coordinator for 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
== END 2023-06-08 07:12 | disposition home or self-care (01) ==
PROVIDERS: Emergency Provider Emergency Medicine; PCP Family Medicine Adult Medicine
DX: M54.2 Cervicalgia (principal); Z79.82 Long term (current) use of aspirin; J44.9 Chronic obstructive pulmonary disease, unspecified; E78.2 Mixed hyperlipidemia
CPT/HCPCS: 96372; 99284; J2270; Q0162

== ENCOUNTER 2023-06-19 09:09 | Emergency (ER) | payer MEDICARE, MEDICAID, SELFPAY ==
[2023-02-06 10:08] VITALS: BP 132/88; BMI 31.9
[2023-06-19] VITALS (22 sets, daily range): BP systolic 97–126; BP diastolic 74–91; PULSE 90–99; RESP 14–33; TEMP 36.8; O2SAT 91–96; BMI 31.6
--- NOTE | 2023-06-19 09:27 | XRR_ITS ---
PROCEDURE INFORMATION: Exam: XR Chest Exam date and time: 06/19/2023 9:49 AM Age: 58 years old Clinical indication: Cough and dyspnea; Additional info: Dyspnea/cough TECHNIQUE: Imaging protocol: Radiologic exam of the chest. Views: 1 view. COMPARISON: CR (CHEST, ) 03/25/2023 2:39 PM FINDINGS: Lungs: Lungs are clear. Pleural spaces: There is no pleural effusion or pneumothorax. Heart/Mediastinum: Cardiomediastinal contours are unremarkable. Bones/joints: Bones are unremarkable. XR/XR chest 1V portable [id number] IMPRESSION: No acute findings.
[2023-06-19 10:04] LABS: Basophils % 0.1 %; Hematocrit 39.8 % (36-47); Lymphocytes # 1.6 10^3/uL (0.8-4.8); Lymphocytes % 21.4 %; Mean Corpuscular HGB Conc 32.7 g/dL (30-55); Mean Corpuscular Hemoglobin 30.6 pg (27-33); Mean Corpuscular Volume 93.6 fl (85-98); Mean Platelet Volume 9.6 fL (7.4-10.4); Monocytes # 0.8 10^3/uL (0.2-0.9); Monocytes % 10.2 %; Neutrophils # 5.12 10^3/uL (1.8-7.7); Neutrophils % 67.9 %; Nucleated Red Blood Cells % 0 %; Platelet Count 245 10^3/cmm (157-399); Red Blood Count 4.25 10^6/uL (3.85-5.65); Red Cell Distribution Width 13.9 % (12.1-15.1); White Blood Count 7.54 10^3/uL (3.29-11.43)
--- NOTE | 2023-06-19 10:09 | ECG_ITS ---
[facility] Test Date: 2023-06-19 Pat Name: Hilda Nolan Department: Room: Gender: Female Amf Mechanic: : 1965 Requested By: Cesar Causey Order Number: [id number] Kimberly MD: Sergio Gipson M.D. Measurements Intervals Raven Rate: 90 P: 53 RI: 154 QRS: 7 QRSD: 89 T: 30 QT: 363 QTc: 446 Interpretive Statements SINUS RHYTHM LOW QRS VOLTAGE IN PRECORDIAL LEADS [QRS DEFLECTION < 1.0 mV IN CHEST LEADS] PATTERN CONSISTENT WITH PULMONARY DISEASE Compared to ECG 03/25/2023 14:55:30 Low QRS voltage now present No significant change Electronically Signed On 06-19-2023 16:55:19 CITY ADMINISTRATOR by Sergio Gipson M.D. [id number]
--- NOTE | 2023-06-19 10:18 | ED_ITS ---
HPI - Syncope 2 General: Chief Complaint: Syncope Stated Complaint: Syncope Time Seen by Provider: 06/19/23 09:12 Source: patient Mode of arrival: ambulatory History of Present Illness: 58-year-old female presents to [facility] room complaining of a near syncopal episode. She got up was doing her usual routine this morning got dressed and made herself coffee and something deviated taking care of her cat she started to get lightheaded and dizzy sat down on the couch felt like she was almost going to pass out. Patient had no trauma today. She reports a remote history 2 to 3 years ago. She denies any chest or abdominal pain. Patient is wearing a soft c-collar which she had got she felt she needed support and what she perceives as a safety while wearing it. MD complaint: almost passed out Onset (ago): hour(s) Prodromal symptoms: lightheaded Associated symptoms: Deny abdominal pain, chest pain, fever(s), headache(s), lightheadedness, nausea, short of breath, vertigo or weakness Treatments prior to arrival: none Review of Systems 2 Const: Denies: fever(s) or chills Card: Denies: chest pain or lightheadedness Resp: Denies: dyspnea GI: Denies: abdominal pain or nausea : Denies: dysuria, urinary frequency or urinary urgency Musc: Denies: neck pain or back pain Skin/Breast: Denies: rash Neuro: Denies: headache(s) or vertigo PFSH ED 2 PFSH: Medical History Tremor Lower extremity pain, bilateral 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, severe, 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 Smoker unmotivated to quit Uterine prolapse PMB (postmenopausal bleeding) Prediabetes Chronic bronchitis with COPD (chronic obstructive pulmonary disease) Mixed hyperlipidemia Psychiatric care Osteoarthritis (arthritis due to wear and tear of joints) Chronic pain disorder Right shoulder Obesity (BMI 30.0-34.9) GERD (gastroesophageal reflux disease) Other schizophrenia Surgical History S/P laparoscopic assisted vaginal hysterectomy (LAVH) Status post bilateral salpingo-oophorectomy (BSO) Family History Other CAD (coronary artery disease) Hypertension Social History Substance/Drug Use: never Do you think of yourself as: Straight/Heterosexual Female Reproductive History: Para: 2 Physical Exam 2 Const: COMMON NORMALS: no acute distress GENERAL APPEARANCE: cooperative and comfortable ORIENTATION/CONSCIOUSNESS: Yes awake, Yes oriented to person, Yes oriented to place and Yes oriented to time HENMT: COMMON NORMALS: normocephalic, atraumatic and hearing grossly normal bilaterally HEAD & SCALP: normocephalic and atraumatic Resp: COMMON NORMALS: normal respiratory effort, No retractions, No use of accessory muscles and clear to auscultation bilaterally AUSCULTATION: clear to auscultation bilaterally Cardio: COMMON NORMALS: regular rate, regular rhythm and No murmurs present (Cardio) RATE: regular rate RHYTHM: regular rhythm GI: COMMON NORMALS: Soft to palpation and No hepatosplenomegaly present A USCULTATION: Yes normoactive bowel sounds PALPATION: Yes Soft to palpation, No Tenderness to palpation present (GI), No Guarding due to palpation present (GI) and Yes No hepatosplenomegaly present Extremity: COMMON NORMALS: normal to inspection, capillary refill normal, no clubbing, cyanosis or edema, no calf tenderness and no pedal edema Neuro: SENSORIUM/ORIENTATION: Yes oriented to person, Yes oriented to place and Yes oriented to time Skin: COMMON NORMALS: no rashes or lesions noted GENERAL SKIN EXAM: no rashes or lesions noted Course 2 Vital Signs: Vital signs: Vital Signs Temperature 98.2 F 06/19/23 09:13 Pulse Rate 90 06/19/23 10:30 Respiratory Rate 15 06/19/23 10:55 Blood Pressure 109/91 06/19/23 11:00 Pulse Oximetry 94 06/19/23 11:10 Oxygen Delivery Me thod Room Air 06/19/23 10:05 MDM - Syncope Medical Decision Making Near syncopal episode at home. Work-up started patient wishes to leave reviewed the findings we had at this point no significant abnormality she would prefer to go home however follow-up with her primary care return if she has further problems. Lab Data 06/19/23 08:55 06/19/23 08:55 Radiology Impressions Chest X-Ray 06/19/23 09:27 IMPRESSION: No acute findings. Laboratory Results WBC 7.54 10^3/uL (3.29-11.43) 06/19/23 08:55 RBC 4.25 10^6/uL (3.85-5.65) 06/19/23 08:55 Hgb 13.00 g/dL (11.27-16.99) 06/19/23 08:55 Hct 39.8 % (36-47) 06/19/23 08:55 MCV 93.6 fl (85-98) 06/19/23 08:55 MCH 30.6 pg (27-33) 06/19/23 08:55 MCHC 32.7 g/dL (30-55) 06/19/23 08:55 RDW 13.9 % (12.1-15.1) 06/19/23 08:55 Plt Count 245 10^3/cmm (157-399) 06/19/23 08:55 MPV 9.6 fL (7.4-10.4) 06/19/23 08:55 Neut % (Auto) 67.9 % 06/19/23 08:55 Lymph % (Auto) 21.4 % 06/19/23 08:55 [place] % (Auto) 10.2 % 06/19/23 08:55 Eos % (Auto) 0.0 % 06/19/23 08:55 Baso % (Auto) 0.1 % 06/19/23 08:55 Neut # (Auto) 5.12 10^3/uL (1.8-7.7) 06/19/23 08:55 Lymph # (Auto) 1.6 10^3/uL (0.8-4.8) 06/19/23 08:55 [place] # (Auto) 0.8 10^3/uL (0.2-0.9) 06/19/23 08:55 Eos # (Auto) 0.0 10^3/uL (0.0-0.8) 06/19/23 08:55 Baso # (Auto) 0.0 10^3/uL (0.0-0.1) 06/19/23 08:55 Nucleated RBC % (auto) 0 % 06/19/23 08:55 Nucleated RBCs # 0.0 /100WBC 06/19/23 08:55 Sodium 139 mmol/L (136-145) 06/19/23 08:55 Potassium 4.2 mmol/L (3.5-5.1) 06/19/23 08:55 Chloride 101 mmol/L (98-107) 06/19/23 08:55 Carbon Dioxide 25 mmol/L (22-29) 06/19/23 08:55 Anion Gap 17.2 (5-19) 06/19/23 08:55 BUN 9 mg/dL (6-20) 06/19/23 08:55 Creatinine 0.7 mg/dL (0.5-0.9) 06/19/23 08:55 GFR Calculation 85.6 mL/min (90-130) L 06/19/23 08:55 Glucose 128 mg/dL (65-115) H 06/19/23 08:55 Calculated Osmolality 288 mOsm/kg (285-295) 06/19/23 08:55 Calcium 9.5 mg/dL (8.5-10.5) 06/19/23 08:55 Magnesium 1.9 mg/dL (1.7-2.3) 06/19/23 08:55 Total Bilirubin 0.2 mg/dL (0.15-1.2) 06/19/23 08:55 AST 16 U/L (0-32) 06/19/23 08:55 ALT 19 U/L (0-33) 06/19/23 08:55 Alkaline Phosphatase 132 U/L (35-105) H 06/19/23 08:55 Total Protein 6.9 g/dL (6.6-8.7) 06/19/23 08:55 Albumin 4.4 g/dL (3.5-5.2) 06/19/23 08:55 Globulin 2.5 g/dL (1.3-4.6) 06/19/23 08:55 Urine Color Yellow (Yellow) 06/19/23 11:03 Urine Appearance Clear (CLEAR) 06/19/23 11:03 Urine pH 6 (5-7) 06/19/23 11:03 Ur Specific [place] 1.000 (1.005-1.030) L 06/19/23 11:03 Urine Protein Neg (Negative) 06/19/23 11:03 Urine Glucose (UA) Norm (Normal) 06/19/23 11:03 Urine Ketones 1+ (Negative) H 06/19/23 11:03 Urine Blood Neg (Negative) 06/19/23 11:03 Urine Nitrate Negative (Negative) 06/19/23 11:03 Urine Bilirubin Neg (Negative) 06/19/23 11:03 Urine Urobilinogen Neg mg/dL (Negative) 06/19/23 11:03 Ur Leukocyte Esterase Negative (Negative) 06/19/23 11:03 Salicylates < 0.3 mg/dL (3-10) L 06/19/23 08:55 Urine Opiates Screen Negative ng/mL (Negative) 06/19/23 11:03 Acetaminophen 5.8 ug/mL (10-30) L 06/19/23 08:55 Ur Barbiturates Screen Negative ng/mL (Negative) 06/19/23 11:03 Ur Phencyclidine Scrn Negative ng/mL (Negative) 06/19/23 11:03 Ur Amphetamines Screen Negative ng/mL (Negative) 06/19/23 11:03 U Benzodiazepines Scrn Positive ng/mL (Negative) H 06/19/23 11:03 Urine Cocaine Screen Negative ng/mL (Negative) 06/19/23 11:03 U Marijuana (THC) Screen Negative ng/mL (Negative) 06/19/23 11:03 Ethyl Alcohol < 10 mg/dL (0-10) 06/19/23 08:55 All radiology interpretation(s) finalized by discharge Discharge Plan Discharge Patient Disposition: Home Clinical Impression: Near syncope Condition: Stable Prescriptions: No Action acetaminophen [Tylenol] 325 mg tablet 325 mg PO QID PRN (Reason: Pain) Ativan 0.5 mg tablet 0.5 mg PO BID Qty: 60 5RF tramadol 50 mg tablet 50 mg PO BID PRN (Reason: pain) 30 Days Qty: 60 3RF Rx Instructions: Refill on or after her 30-day intervals benztropine 1 mg tablet 1 mg PO DAILY@0730 Qty: 30 11RF oxybutynin chloride 15 mg tablet extended release 24hr 15 mg PO BID Qty: 180 1RF aspirin 81 mg tablet,delayed release (DR/EC) 81 mg PO DAILY budesonide-formoterol [Symbicort] 160-4.5 mcg/actuation HFA aerosol inhaler 2 puff inhalation BID Qty: 10.2 5RF albuterol sulfate [ProAir HFA] 90 mcg/actuation HFA aerosol inhaler 2 puff inhalation Q4H PRN (Reason: shortness of breath or wheezing) Qty: 17 2RF mirtazapine 45 mg tablet 45 mg PO BEDTIME Qty: 30 11RF dexlansoprazole 60 mg capsule,biphase delayed releas 60 mg PO DAILY PRN (Reason: acid reflux) Qty: 90 2RF meloxicam 7.5 mg tablet 7.5 mg PO BID PRN (Reason: pain) Qty: 60 0RF citalopram [Celexa] 40 mg tablet 40 mg PO DAILY clozapine [Clozaril] 100 mg tablet 350 mg PO BEDTIME clozapine [Clozaril] 200 mg tablet 200 mg PO QAM montelukast [Singulair] 10 mg tablet 10 mg PO DAILY Rx Instructions: TAKE 1 TABLET BY MOUTH EVERY DAY AT 7:30AM triamcinolone acetonide [Triderm] 0.5 % cream 1 applic topical DAILY baclofen 10 mg tablet 10 mg PO BID atorvastatin 20 mg tablet 20 mg PO DAILY gabapentin 300 mg capsule 300 mg PO BID docusate sodium 250 mg capsule 250 - 500 mg PO DAILY PRN (Reason: constipation) fluticasone propionate 50 mcg/actuation spray,suspension 1 spray intranasal BID Discharge Orders: Discharge ED (Routine); Ordered 06/19/23 Ordered By: Cesar Neil Referrals: Evans Olvera MD [Primary Care Provider] - Discharge Diet: Usual diet Discharge Activity: Increase activity as tolerated Patient Instructions: Opioid Safety, Pain Management Activity Restrictions/Additional Instructions: Thank you for choosing [facility] for your healthcare needs today. Please realize this is an emergency room and that we are providing you with a medical screening exam and this may not be complete and all inclusive of all the testing and or work up that you may need to determine your ailment or severity of your illness. It is very important that you follow up as instructed or that you return to the Emergency Department should you have concerns or if your condition changes or worsens in any way. You are seen today after a near syncopal episode. You related she had similar episodes in the past. Your laboratory tests are unremarkable neurologic exam was normal. We will discharge you home avoid strenuous activities. Follow-up with your doctor within the next week. Return if you have further problems. Coding Level of Care Code ED Medical Pathology Teacher for 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
[2023-06-19 10:20] LABS: Acetaminophen 5.8 ug/mL (10-30); Alanine Aminotransferase 19 U/L (0-33); Albumin Level 4.4 g/dL (3.5-5.2); Alkaline Phosphatase 132 U/L (35-105); Anion Gap 17.2 (5-19); Aspartate Amino Transferase 16 U/L (0-32); Blood Urea Nitrogen 9 mg/dL (6-20); Calcium 9.5 mg/dL (8.5-10.5); Carbon Dioxide 25 mmol/L (22-29); Chloride 101 mmol/L (98-107); Creatinine Clr Calc Pharmacy 83.9429; Globulin 2.5 g/dL (1.3-4.6); Glomerular Filtration Rate 85.6 mL/min (90-130); Glucose 128 mg/dL (65-115); Magnesium 1.9 mg/dL (1.7-2.3); Osmolality Calculated 288 mOsm/kg (285-295); Potassium 4.2 mmol/L (3.5-5.1); Sodium 139 mmol/L (136-145); Total Bilirubin 0.2 mg/dL (0.15-1.2); Total Protein 6.9 g/dL (6.6-8.7)
[2023-06-19 10:22] LABS: Alcohol Level < 10 mg/dL (0-10); Salicylate < 0.3 mg/dL (3-10)
[2023-06-19 11:23] LABS: Add Urine Microscopic? NO; Charge for UA Resulting for Rev
[2023-06-19 11:36] LABS: Bilirubin Urine Neg (Negative); Blood Urine Neg (Negative); Glucose Urine UA Norm (Normal); Ketones Urine 1+ (Negative); Leukocyte Esterase Urine Negative (Negative); Nitrate Urine Negative (Negative); Protein Urine Neg (Negative); Urine Appearance Clear (CLEAR); Urine Color Yellow (Yellow); Urobilinogen Urine Neg (Negative); pH Urine 6 (5-7)
[2023-06-19 11:44] LABS: Amphetamines Screen Urine Negative (Negative); Barbiturates Screen Urine Negative (Negative); Benzodiazepines Screen Urine Positive (Negative); Cocaine Screen Urine Negative (Negative); Opiate Screen Urine Negative (Negative); PCP Screen Urine Negative (Negative); THC Screen Urine Negative (Negative)
== END 2023-06-19 11:42 | disposition home or self-care (01) ==
PROVIDERS: Emergency Provider Family Medicine; PCP Family Medicine Adult Medicine
DX: R55 Syncope and collapse (principal); Z79.82 Long term (current) use of aspirin; J44.9 Chronic obstructive pulmonary disease, unspecified; E78.2 Mixed hyperlipidemia
CPT/HCPCS: 71045; 80053; 80306; 80307; 81003; 83735; 85025; 93005; 99285

== ENCOUNTER → 2023-07-13 14:06 | Outpatient (BNVA) | payer MEDICARE, MEDICAID, OTHER, SELFPAY ==
[2023-02-06 10:08] VITALS: BP 132/88; BMI 31.9
== END ==
PROVIDERS: PCP Family Medicine Adult Medicine; Visit Provider Psychiatry & Neurology Psychiatry
DX: F20.9 Schizophrenia, unspecified (principal); Z79.899 Other long term (current) drug therapy
CPT/HCPCS: 85007; 85027

== ENCOUNTER 2023-07-29 14:19 | Emergency (ER) | payer MEDICARE, MEDICAID, SELFPAY ==
[2023-02-06 10:08] VITALS: BP 132/88; BMI 31.9
[2023-07-29 14:21] VITALS: BP 108/73; PULSE 115; RESP 18; TEMP 36.9; O2SAT 96; BMI 31.8
--- NOTE | 2023-07-29 14:29 | ED_ITS ---
HPI - Nausea/Vomiting/Diarrhea 2 General: Chief complaint: Nausea/Vomiting/Diarrhea Stated complaint: N/V Time Seen by Provider: 07/29/23 14:20 Source: patient and EMS Mode of arrival: EMS Limitations: no limitations History of Present Illness: 58-year-old female who states she has be en having abdominal pain has been diffuse in nature along with nausea and vomiting throughout the day. States her pain is sharp in nature denies any diarrhea denies any worsening improving factors she denies any chest pain denies any fevers. 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, severe, 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 Smoker unmotivated to quit Uterine prolapse PMB (postmenopausal bleeding) Prediabetes Chronic bronchitis with COPD (chronic obstructive pulmonary disease) Mixed hyperlipidemia Psychiatric care Osteoarthritis (arthritis due to wear and tear of joints) Chronic pain disorder Right shoulder Obesity (BMI 30.0-34.9) GERD (gastroesophageal reflux disease) Other schizophrenia Surgical History Status post bilateral salpingo-oophorectomy (BSO) S/P laparoscopic assisted vaginal hysterectomy (LAVH) Family History Other CAD (coronary artery disease) Hypertension Social History Substance/Drug Use: never Do you think of yourself as: Straight/Heterosexual Female Reproductive History: Para: 2 Physical Exam 2 Const: COMMON NORMALS: no acute distress, patient oriented x3 and healthy appearing HENMT: COMMON NORMALS: normocephalic and atraumatic HEAD & SCALP: n ormocephalic and atraumatic Eye: COMMON NORMALS: Equal, round and reactive pupils present and EOMs intact bilaterally PUPIL: Yes Equal, round and reactive pupils present Neck/C-Spine: COMMON NORMALS: full ROM and supple Chest: COMMONS NORMALS: normal inspection of the chest and normal palpation of entire chest wall Resp: COMMON NORMALS: normal respiratory effort, No retractions, No use of accessory muscles and clear to auscultation bilaterally AUSCULTATION: clear to auscultation bilaterally Cardio: COMMON NORMALS: regular rhythm and No murmurs present (Cardio) R ATE: tachycardic RHYTHM: regular rhythm GI: COMMON NORMALS: Normal to inspection, nondistended, normoactive bowel sounds present, Soft to palpation, non-tender and no masses PALPATION: Yes Soft to palpation Extremity: COMMON NORMALS: normal to inspection and full ROM Neuro: COMMON NORMALS: patient oriented x3, moves all extremities and no focal motor deficits Psych: COMMON NORMALS: mental status grossly normal, Normal thought process present and cooperative THOUGHT PROCESS: Normal thought process present Skin: COMMON NORMALS: no rashes or lesions noted and no wounds GENERAL SKIN EXAM: no rashes or lesions noted Course 2 Vital Signs: Vital signs: Vital Signs Temperature 98.4 F 07/29/23 14:21 Pulse Rate 115 H 07/29/23 14:21 Respiratory Rate 18 07/29/23 14:21 Blood Pressure 108/73 07/29/23 14:21 Pulse Oximetry 96 07/29/23 14:21 Oxygen Delivery Me thod Room Air 07/29/23 14:21 MDM - Nausea/Vomiting/Diarrhea Medical Decision Making Patient presents here with vomiting on abdominal pain blood work here is all normal exam at discharge benign she feels improved prescribe her Reglan for home she is follow-up with PCP and return if worsening. Medical Records I reviewed the patient's medical records. Lab Data I reviewed the patient's lab results. 07/29/23 14:25 07/29/23 14:25 Laboratory Results WBC 11.60 10^3/uL (3.29-11.43) H 07/29/23 14:25 RBC 4.22 10^6/uL (3.85-5.65) 07/29/23 14:25 Hgb 12.70 g/dL (11.27-16.99) 07/29/23 14:25 Hct 38.5 % (36-47) 07/29/23 14:25 MCV 91.2 fl (85-98) 07/29/23 14:25 MCH 30.1 pg (27-33) 07/29/23 14:25 MCHC 33.0 g/dL (30-55) 07/29/23 14:25 RDW 13.8 % (12.1-15.1) 07/29/23 14:25 Plt Count 275 10^3/cmm (157-399) 07/29/23 14:25 MPV 9.7 fL (7.4-10.4) 07/29/23 14:25 Neut % (Auto) 74.7 % 07/29/23 14:25 Lymph % (Auto) 17.7 % 07/29/23 14:25 [place] % (Auto) 6.8 % 07/29/23 14:25 Eos % (Auto) 0.1 % 07/29/23 14:25 Baso % (Auto) 0.2 % 07/29/23 14:25 Neut # (Auto) 8.67 10^3/uL (1.8-7.7) H 07/29/23 14:25 Lymph # (Auto) 2.1 10^3/uL (0.8-4.8) 07/29/23 14:25 [place] # (Auto) 0.8 10^3/uL (0.2-0.9) 07/29/23 14:25 Eos # (Auto) 0.0 10^3/uL (0.0-0.8) 07/29/23 14:25 Baso # (Auto) 0.0 10^3/uL (0.0-0.1) 07/29/23 14:25 Nucleated RBC % (auto) 0 % 07/29/23 14:25 Nucleated RBCs # 0.0 /100WBC 07/29/23 14:25 Sodium 138 mmol/L (136-145) 07/29/23 14:25 Potassium 4.0 mmol/L (3.5-5.1) 07/29/23 14:25 Chloride 104 mmol/L (98-107) 07/29/23 14:25 Carbon Dioxide 23 mmol/L (22-29) 07/29/23 14:25 Anion Gap 15.0 (5-19) 07/29/23 14:25 BUN 13 mg/dL (6-20) 07/29/23 14:25 Creatinine 0.7 mg/dL (0.5-0.9) 07/29/23 14:25 GFR Calculation 85.6 mL/min (90-130) L 07/29/23 14:25 Glucose 166 mg/dL (65-115) H 07/29/23 14:25 Calculated Osmolality 290 mOsm/kg (285-295) 07/29/23 14:25 Calcium 9.6 mg/dL (8.5-10.5) 07/29/23 14:25 Total Bilirubin 0.2 mg/dL (0.15-1.2) 07/29/23 14:25 AST 17 U/L (0-32) 07/29/23 14:25 ALT 19 U/L (0-33) 07/29/23 14:25 Alkaline Phosphatase 133 U/L (35-105) H 07/29/23 14:25 Total Protein 6.7 g/dL (6.6-8.7) 07/29/23 14:25 Albumin 4.1 g/dL (3.5-5.2) 07/29/23 14:25 Globulin 2.6 g/dL (1.3-4.6) 07/29/23 14:25 Lipase 51 U/L (13-60) 07/29/23 14:25 No radiology studies performed this visit Discharge Plan Discharge Patient Disposition: Home Clinical Impression: Vomiting Qualifiers: Vomiting type: unspecified Nausea presence: with nausea Qualified Code(s): R 11.2 - Nausea with vomiting, unspecified Condition: Stable Prescriptions: New Reglan 10 mg tablet 10 mg PO Q6H PRN (Reason: nausea and vomiting) Qty: 20 0RF No Action tramadol 50 mg tablet 50 mg PO BID PRN (Reason: pain) 30 Days Qty: 60 3RF Rx Instructions: Refill on or after her 30-day intervals benztropine 1 mg tablet 1 mg PO DAILY@0730 Qty: 30 11RF aspirin 81 mg tablet,delayed release (DR/EC) 81 mg PO QAM budesonide-formoterol [Symbicort] 160-4.5 mcg/actuation HFA aerosol inhaler 2 puff inhalation BID Qty: 10.2 5RF albuterol sulfate [ProAir HFA] 90 mcg/actuation HFA aerosol inhaler 2 puff inhalation Q4H PRN (Reason: shortness of breath or wheezing) Qty: 17 2RF mirtazapine 45 mg tablet 45 mg PO BEDTIME Qty: 30 11RF meloxicam 7.5 mg tablet 7.5 mg PO BID PRN (Reason: pain) Qty: 60 0RF Ativan 0.5 mg tablet 0.5 mg PO BID Qty: 60 5RF citalopram [Celexa] 40 mg tablet 40 mg PO QAM clozapine [Clozaril] 100 mg tablet 350 mg PO BEDTIME clozapine [Clozaril] 200 mg tablet 200 mg PO QAM montelukast [Singulair] 10 mg tablet 10 mg PO QAM triamcinolone acetonide [Triderm] 0.5 % cream 1 applic topical DAILY baclofen 10 mg tablet 10 mg PO BID PRN (Reason: Pain) atorvastatin 20 mg tablet 20 mg PO QAM gabapentin 300 mg capsule 300 mg PO BID fluticasone propionate 50 mcg/actuation spray,suspension 1 spray intranasal BID Tylenol Ex Str Rapid Release 500 mg Tablet 500 - 1,000 mg PO Q6H PRN (Reason: Pain) oxybutynin chloride 15 mg tablet extended release 24hr 15 mg PO BEDTIME docusate sodium 250 mg capsule 250 mg PO BID dexlansoprazole 60 mg capsule,biphase delayed releas 60 mg PO QAM Discharge Orders: Discharge ED (Routine); Ordered 07/29/23 Ordered By: Kade Smith Referrals: Evans Olvera MD [Primary Care Provider] - 1-3 days Discharge Diet: Advance as tolerated Discharge Activity: Resume usual activity Patient Instructions: Acute Nausea and Vomiting (ED) Coding Level of Care Code ED Graphic Design Manager for 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
[2023-07-29 14:44] LABS: Basophils % 0.2 %; Eosinophils % 0.1 %; Hematocrit 38.5 % (36-47); Lymphocytes # 2.1 10^3/uL (0.8-4.8); Lymphocytes % 17.7 %; Mean Corpuscular Hemoglobin 30.1 pg (27-33); Mean Corpuscular Volume 91.2 fl (85-98); Mean Platelet Volume 9.7 fL (7.4-10.4); Monocytes # 0.8 10^3/uL (0.2-0.9); Monocytes % 6.8 %; Neutrophils # 8.67 10^3/uL (1.8-7.7); Neutrophils % 74.7 %; Nucleated Red Blood Cells % 0 %; Platelet Count 275 10^3/cmm (157-399); Red Blood Count 4.22 10^6/uL (3.85-5.65); Red Cell Distribution Width 13.8 % (12.1-15.1)
[2023-07-29] MEDS: sodium chloride 0.9% 1,000 ML 999 ML IV (14:44)
[2023-07-29] MEDS: metoclopramide 5 mg/mL SDV 2 mL 10 MG IVP (14:46)
[2023-07-29] MEDS: diphenhydrAMINE 50 mg/mL SDV 1mL IVP (14:48)
--- NOTE | 2023-07-29 14:57 | PC.PHAR ---
pt states she takes care of her own medications-pt states she only takes oxybutynin er 15mg hs ext shows last filled 06/26/23 90d/s 15mg bid-notes are made in the pharmacy comments
[2023-07-29 15:00] LABS: Alanine Aminotransferase 19 U/L (0-33); Albumin Level 4.1 g/dL (3.5-5.2); Alkaline Phosphatase 133 U/L (35-105); Aspartate Amino Transferase 17 U/L (0-32); Blood Urea Nitrogen 13 mg/dL (6-20); Calcium 9.6 mg/dL (8.5-10.5); Carbon Dioxide 23 mmol/L (22-29); Chloride 104 mmol/L (98-107); Globulin 2.6 g/dL (1.3-4.6); Glomerular Filtration Rate 85.6 mL/min (90-130); Glucose 166 mg/dL (65-115); Lipase 51 U/L (13-60); Osmolality Calculated 290 mOsm/kg (285-295); Sodium 138 mmol/L (136-145); Total Bilirubin 0.2 mg/dL (0.15-1.2); Total Protein 6.7 g/dL (6.6-8.7)
[2023-07-29 15:58] VITALS: BP 124/78
== END 2023-07-29 16:01 | disposition home or self-care (01) ==
PROVIDERS: Emergency Provider Emergency Medicine; PCP Family Medicine Adult Medicine
DX: R11.2 Nausea with vomiting, unspecified (principal); Z79.82 Long term (current) use of aspirin; J44.9 Chronic obstructive pulmonary disease, unspecified; E78.2 Mixed hyperlipidemia
CPT/HCPCS: 80053; 83690; 85025; 96374; 96375; 99284; J1200; J2765; J7030

== ENCOUNTER → 2023-07-31 14:49 | Outpatient (BNVA) | payer OTHER, MEDICARE, MEDICAID, SELFPAY ==
[2023-02-06 10:08] VITALS: BP 132/88; BMI 31.9
== END ==
PROVIDERS: PCP Family Medicine Adult Medicine; Visit Provider Family Medicine Adult Medicine
DX: R39.9 Unspecified symptoms and signs involving the genitourinary system (principal)
CPT/HCPCS: 81000

== ENCOUNTER 2023-08-09 07:45 | Emergency (ER) | payer MEDICARE, MEDICAID, SELFPAY ==
[2023-02-06 10:08] VITALS: BP 132/88; BMI 31.9
[2023-08-09 07:47] VITALS: BP 151/86; PULSE 90; RESP 18; TEMP 36.7; O2SAT 95; BMI 31.1
[2023-08-09 08:18] LABS: Basophils % 0.3 %; Lymphocytes # 1.5 10^3/uL (0.8-4.8); Lymphocytes % 14.6 %; Mean Corpuscular HGB Conc 32.9 g/dL (30-55); Mean Corpuscular Hemoglobin 30.7 pg (27-33); Mean Corpuscular Volume 93.2 fl (85-98); Mean Platelet Volume 9.2 fL (7.4-10.4); Monocytes # 0.8 10^3/uL (0.2-0.9); Monocytes % 7.6 %; Neutrophils # 7.63 10^3/uL (1.8-7.7); Neutrophils % 77.1 %; Nucleated Red Blood Cells % 0 %; Platelet Count 266 10^3/cmm (157-399); Red Cell Distribution Width 13.9 % (12.1-15.1)
[2023-08-09 08:46] LABS: Alanine Aminotransferase 22 U/L (0-33); Albumin Level 4.2 g/dL (3.5-5.2); Alkaline Phosphatase 143 U/L (35-105); Anion Gap 13.5 (5-19); Aspartate Amino Transferase 17 U/L (0-32); Blood Urea Nitrogen 8 mg/dL (6-20); Carbon Dioxide 27 mmol/L (22-29); Chloride 103 mmol/L (98-107); Globulin 3.1 g/dL (1.3-4.6); Glomerular Filtration Rate 102.3 mL/min (90-130); Glucose 129 mg/dL (65-115); Osmolality Calculated 288 mOsm/kg (285-295); Potassium 4.5 mmol/L (3.5-5.1); Salicylate 0.8 mg/dL (3-10); Sodium 139 mmol/L (136-145); Total Bilirubin 0.3 mg/dL (0.15-1.2); Total Protein 7.3 g/dL (6.6-8.7)
[2023-08-09 08:48] LABS: Acetaminophen < 5.0 ug/mL (10-30)
--- NOTE | 2023-08-09 09:09 | ED.C_ITS ---
HPI - Psych 2 General: Chief Complaint: Psychiatric Symptoms Stated Complaint: psych eval Time Seen by Provider: 08/09/23 08:01 Source: patient Mode of arrival: EMS Limitations: no limitations History of Present Illness: This patient initially requested transportation to the emergency department by EMS. She came from her home. She states that she was felt overwhelmed today and just did not know which way to turn. She has a longstanding history of depression and posttraumatic stress syndrome. She apparently has had a history of drug abuse in the past alcohol abuse and goes to and . She is also followed by behavioral health at this facility and takes her medications as prescribed. She states that she just woke up and felt like she needed to decompress and called EMS. She currently feels much better has no thoughts of self-harm or harm to others and does have a follow-up appointment with behavioral health. She desires to go home. 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, severe, 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 Smoker unmotivated to quit Uterine prolapse PMB (postmenopausal bleeding) Prediabetes Chronic bronchitis with COPD (chronic obstructive pulmonary disease) Mixed hyperlipidemia Psychiatric care Osteoarthritis (arthritis due to wear and tear of joints) Chronic pain disorder Right shoulder Obesity (BMI 30.0-34.9) GERD (gastroesophageal reflux disease) Other schizophrenia Surgical History Status post bilateral salpingo-oophorectomy (BSO) S/P laparoscopic assisted vaginal hysterectomy (LAVH) Family History Other CAD (coronary artery disease) Hypertension Social History Substance/Drug Use: never Do you think of yourself as: Straight/Heterosexual Female Reproductive History: Para: 2 Physical Exam 2 Narrative: EXAM NARRATIVE: Patient makes good eye contact she answers questions in a goal-directed fashion. She is logical and flowing in her speech. Const: COMMON NORMALS: no acute distress, patient oriented x3 and alert G ENERAL APPEARANCE: cooperative and comfortable NUTRITIONAL APPEARANCE: o verweight HENMT: COMMON NORMALS: normocephalic and moist oral mucous membranes HEAD & SCALP: normocephalic Eye: COMMON NORMALS: Equal, round and reactive pupils present, EOMs intact bilaterally and conjunctivae normal CONJUNCTIVA: Yes conjunctivae normal P UPIL: Yes Equal, round and reactive pupils present Neck/C-Spine: COMMON NORMALS: full ROM Resp: COMMON NORMALS: normal respiratory effort and No use of accessory muscles EFFORT & INSPECTION: Yes able to speak in complete sentences Cardio: COMMON NORMALS: Peripheral pulses 2+ throughout PERIPHERAL PULSES: Peripheral pulses 2+ throughout GI: COMMON NORMALS: Normal to inspection, nondistended, normoactive bowel sounds present Back/Pelvis: COMMON NORMALS: thoraco-lumbar ROM normal Extremity: COMMON NORMALS: normal to inspection, full ROM and no pedal edema Neuro: COMMON NORMALS: patient oriented x3, moves all extremities and no focal motor deficits SENSORIUM/ORIENTATION: Yes alert CRANIAL NERVES: Yes CN normal except as noted GAIT: Yes Normal gait present Psych: COMMON NORMALS: Normal thought process present, speech normal, denies hallucinations, denies homicidal ideation and denies suicidal ideation A TTITUDE: Yes calm and Yes engaged ACTIVITY/MOTOR BEHAVIOR: Yes appropriate eye contact SPEECH: Yes normal speech MOOD & AFFECT: Yes tearful T HOUGHT PROCESS: Normal thought process present THOUGHT CONTENT: Yes Normal thought content present MEMORY/COGNITION: Yes memory grossly intact I NSIGHT: Fair insight present (Psych) JUDGEMENT: Fair judgement present (Psych) Skin: COMMON NORMALS: no rashes or lesions noted and no wounds GENERAL SKIN EXAM: no rashes or lesions noted Course 2 Reevaluation(s): Reevaluation #1: Patient was interviewed and when asked what she would like to as a ideal outcome from her visit today she states that she would like to see her children but realizes that cannot occur. Apparently they were removed from her home when she was a young parent and adopted out and she does not know their whereabouts. She also declined consideration for hospitalization, did not want a earlier behavioral health appointment and actually felt like she was ready to be discharged. She states that she is felt overwhelmed on her initial arising this morning and then called 911. She adamantly denies any thoughts of self-harm has no means of lethality in her home to include weapons etc. She readily agrees to return should she have any consideration of self-harm etc. She states that she has plenty of medication at home has a follow-up appointment etc. Time: 09:20 Vital Signs: Vital signs: Vital Signs Temperature 98.1 F 08/09/23 07:47 Pulse Rate 90 08/09/23 07:47 Respiratory Rate 18 08/09/23 07:47 Blood Pressure 151/86 08/09/23 07:47 Pulse Oximetry 95 08/09/23 07:47 Oxygen Delivery Me thod Room Air 08/09/23 07:47 MDM - Psych Medical Decision Making This patient came to the emergency department by an by EMS today after having a episode of feeling overwhelmed. She has a longstanding history of treated depression as well as posttraumatic stress disorder. Her evaluation and interview during the emergency department evaluation revealed no evidence of suicidality to both myself as well as other staff and the RN. She declined any consideration for hospitalization other mental health appointments other than her routine scheduled appointment and had sufficient medication. She was not under the influence of any mind altering substances and had intact decision- making capacity at this time. She desires to go home at this time and feels very comfortable. She acknowledges the need to call 911 or return if she has any worsening thoughts of harm or develops thoughts of harming herself or other concerns. Stable at this time to be discharged. Lab Data I reviewed the patient's lab results. 08/09/23 08:10 08/09/23 08:10 Laboratory Results WBC 9.90 10^3/uL (3.29-11.43) 08/09/23 08:10 RBC 4.40 10^6/uL (3.85-5.65) 08/09/23 08:10 Hgb 13.50 g/dL (11.27-16.99) 08/09/23 08:10 Hct 41.0 % (36-47) 08/09/23 08:10 MCV 93.2 fl (85-98) 08/09/23 08:10 MCH 30.7 pg (27-33) 08/09/23 08:10 MCHC 32.9 g/dL (30-55) 08/09/23 08:10 RDW 13.9 % (12.1-15.1) 08/09/23 08:10 Plt Count 266 10^3/cmm (157-399) 08/09/23 08:10 MPV 9.2 fL (7.4-10.4) 08/09/23 08:10 Neut % (Auto) 77.1 % 08/09/23 08:10 Lymph % (Auto) 14.6 % 08/09/23 08:10 [place] % (Auto) 7.6 % 08/09/23 08:10 Eos % (Auto) 0.0 % 08/09/23 08:10 Baso % (Auto) 0.3 % 08/09/23 08:10 Neut # (Auto) 7.63 10^3/uL (1.8-7.7) 08/09/23 08:10 Lymph # (Auto) 1.5 10^3/uL (0.8-4.8) 08/09/23 08:10 [place] # (Auto) 0.8 10^3/uL (0.2-0.9) 08/09/23 08:10 Eos # (Auto) 0.0 10^3/uL (0.0-0.8) 08/09/23 08:10 Baso # (Auto) 0.0 10^3/uL (0.0-0.1) 08/09/23 08:10 Nucleated RBC % (auto) 0 % 08/09/23 08:10 Nucleated RBCs # 0.0 /100WBC 08/09/23 08:10 Sodium 139 mmol/L (136-145) 08/09/23 08:10 Potassium 4.5 mmol/L (3.5-5.1) 08/09/23 08:10 Chloride 103 mmol/L (98-107) 08/09/23 08:10 Carbon Dioxide 27 mmol/L (22-29) 08/09/23 08:10 Anion Gap 13.5 (5-19) 08/09/23 08:10 BUN 8 mg/dL (6-20) 08/09/23 08:10 Creatinine 0.6 mg/dL (0.5-0.9) 08/09/23 08:10 GFR Calculation 102.3 mL/min (90-130) 08/09/23 08:10 Glucose 129 mg/dL (65-115) H 08/09/23 08:10 Calculated Osmolality 288 mOsm/kg (285-295) 08/09/23 08:10 Calcium 10.0 mg/dL (8.5-10.5) 08/09/23 08:10 Total Bilirubin 0.3 mg/dL (0.15-1.2) 08/09/23 08:10 AST 17 U/L (0-32) 08/09/23 08:10 ALT 22 U/L (0-33) 08/09/23 08:10 Alkaline Phosphatase 143 U/L (35-105) H 08/09/23 08:10 Total Protein 7.3 g/dL (6.6-8.7) 08/09/23 08:10 Albumin 4.2 g/dL (3.5-5.2) 08/09/23 08:10 Globulin 3.1 g/dL (1.3-4.6) 08/09/23 08:10 TSH 2.00 uIU/mL (0.27-4.20) 08/09/23 08:10 Salicylates 0.8 mg/dL (3-10) L 08/09/23 08:10 Acetaminophen < 5.0 ug/mL (10-30) L 08/09/23 08:10 No radiology studies performed this visit Discharge Plan Discharge Patient Disposition: Home Clinical Impression: Post-traumatic stress, Situational anxiety Condition: Stable Prescriptions: No Action docusate sodium 250 mg capsule 250 mg PO BID Qty: 250 2RF benztropine 1 mg tablet 1 mg PO DAILY@0730 Qty: 30 11RF aspirin 81 mg tablet,delayed release (DR/EC) 81 mg PO QAM albuterol sulfate [ProAir HFA] 90 mcg/actuation HFA aerosol inhaler 2 puff inhalation Q4H PRN (Reason: shortness of breath or wheezing) Qty: 17 2RF mirtazapine 45 mg tablet 45 mg PO BEDTIME Qty: 30 11RF Ativan 0.5 mg tablet 0.5 mg PO BID Qty: 60 5RF budesonide-formoterol [Symbicort] 160-4.5 mcg/actuation HFA aerosol inhaler See Rx Instructions .ROUTE .COMPLEX Qty: 10.2 5RF Dose Instruction: TAKE 2 PUFFS BY MOUTH TWICE DAILY FOR COPD Rx Instructions: TAKE 2 PUFFS BY MOUTH TWICE DAILY FOR COPD tramadol 50 mg tablet 50 mg PO BID PRN (Reason: pain) 30 Days Qty: 60 3RF citalopram [Celexa] 40 mg tablet 40 mg PO QAM clozapine [Clozaril] 100 mg tablet 350 mg PO BEDTIME clozapine [Clozaril] 200 mg tablet 200 mg PO QAM montelukast [Singulair] 10 mg tablet 10 mg PO QAM triamcinolone acetonide [Triderm] 0.5 % cream 1 applic topical DAILY baclofen 10 mg tablet 10 mg PO BID PRN (Reason: Pain) atorvastatin 20 mg tablet 20 mg PO QAM gabapentin 300 mg capsule 300 mg PO BID fluticasone propionate 50 mcg/actuation spray,suspension 1 spray intranasal BID acetaminophen [Tylenol Ex Str Rapid Release] 500 mg Tablet 500 - 1,000 mg PO Q6H PRN (Reason: Pain) oxybutynin chloride 15 mg tablet extended release 24hr 15 mg PO BEDTIME metoclopramide HCl [Reglan] 10 mg tablet 10 mg PO Q6H PRN (Reason: nausea and vomiting) Qty: 20 0RF hydrocodone-acetaminophen 5-325 mg tablet 1 tab PO [id number] meloxicam 7.5 mg tablet 7.5 mg PO BID PRN (Reason: Anxiety) Discharge Orders: Discharge ED (Routine); Ordered 08/09/23 Ordered By: Ramy Nicholas Referrals: Evans Olvera MD [Primary Care Provider] - Discharge Diet: Usual diet Discharge Activity: Increase activity as tolerated Patient Instructions: Opioid Safety, Pain Management Activity Restrictions/Additional Instructions: As we discussed while you are in the emergency department continue all your usual medications. Follow-up with behavioral health as scheduled. If it anytime you feel the need to discuss your situation, have thoughts of harming yourself or harming others call 911 or return to the emergency department immediately. Coding Level of Care Code ED Manager Interventional for 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
== END 2023-08-09 09:17 | disposition home or self-care (01) ==
PROVIDERS: Emergency Provider Emergency Medicine; PCP Family Medicine Adult Medicine
DX: F43.10 Post-traumatic stress disorder, unspecified (principal); F41.8 Other specified anxiety disorders; Z79.82 Long term (current) use of aspirin; J44.9 Chronic obstructive pulmonary disease, unspecified; E78.2 Mixed hyperlipidemia
CPT/HCPCS: 36415; 80053; 80307; 84443; 85025; 99283

== ENCOUNTER → 2023-08-15 09:43 | Outpatient (BNVA) | payer MEDICARE, MEDICAID, SELFPAY ==
[2023-02-06 10:08] VITALS: BP 132/88; BMI 31.9
== END ==
PROVIDERS: PCP Family Medicine Adult Medicine; Visit Provider Psychiatry & Neurology Psychiatry
DX: F20.89 Other schizophrenia (principal); Z79.899 Other long term (current) drug therapy
CPT/HCPCS: 85007; 85027

== ENCOUNTER → 2023-08-17 11:23 | Outpatient (BNVA) | payer MEDICARE, MEDICAID, SELFPAY ==
[2023-02-06 10:08] VITALS: BP 132/88; BMI 31.9
== END ==
PROVIDERS: PCP Family Medicine Adult Medicine; Visit Provider Nurse Practitioner
DX: R39.9 Unspecified symptoms and signs involving the genitourinary system (principal)
CPT/HCPCS: 81000

== ENCOUNTER → 2023-09-04 15:28 | Outpatient (BNVA) | payer MEDICARE, MEDICAID, SELFPAY ==
[2023-02-06 10:08] VITALS: BP 132/88; BMI 31.9
== END ==
PROVIDERS: PCP Family Medicine Adult Medicine; Visit Provider Family Medicine Adult Medicine
DX: R30.0 Dysuria (principal)
CPT/HCPCS: 81000

== ENCOUNTER 2023-09-12 17:04 | Inpatient (IN) | payer MEDICARE, MEDICAID, SELFPAY ==
[2023-02-06 10:08] VITALS: BP 132/88; BMI 31.9
[2023-09-12] VITALS (11 sets, daily range): BP systolic 93–134; BP diastolic 63–94; PULSE 80–118; RESP 16–23; TEMP 36.9–38.1; O2SAT 89–97; BMI 31.1
--- NOTE | 2023-09-12 17:06 | XRR_ITS ---
PROCEDURE INFORMATION: Exam: XR Chest Exam date and time: 09/12/2023 5:14 PM Age: 58 years old Clinical indication: Shortness of breath; Additional info: Dyspnea/cough TECHNIQUE: Imaging protocol: Radiologic exam of the chest. Views: 1 view. COMPARISON: CR XR chest 1V portable [id number] 06/19/2023 9:49 AM FINDINGS: Lungs: Both lungs demonstrate chronic interstitial coarsening. No lung mass or infiltrate. Pleural spaces: Unremarkable. No pleural effusion. No pneumothorax. Heart/Mediastinum: Unremarkable. No cardiomegaly. Bones/joints: Unremarkable. XR/XR chest 1V portable [id number] IMPRESSION: I see no acute abnormality.
--- NOTE | 2023-09-12 17:08 | W.ED.SOB ---
Documented by User: Cesar Neil DO 09/13/23 06:04 HPI - SOB/Dyspnea General: Chief Complaint: Shortness of Breath/Dyspnea Stated Complaint: resp distress Time Seen by Provider: 09/12/23 17:06 Source: patient Mode of arrival: ambulatory History of Present Illness: HPI Narrative: 58-year-old female presents emergency room complaining short of breath generalized muscle aches and pains she has some chronic back pain she having more discomfort she has a low-grade fever and increased cough. No vomiting or diarrhea. No chest pain. No abdominal pain no dysuria urgency or frequency. Patient relates multiple complaints including saying she does not feel like her psychiatric medicines are working overall she states she just wants to be admitted to the hospital in 1 form or another. She denies any homicidal or suicidal ideation. She did receive an albuterol treatment in route, EMS reported wheezing improved MD elicited complaint: shortness of breath and cough Pertinent past history: COPD Onset (ago): day(s) Timing: constant Severity: moderate Exacerbating factors: nothing Relieving factors: nothing Known history of: COPD Associated symptoms: Reports chest congestion and cough; Deny abdominal pain, chest pain, diaphoresis, dizziness, extremity pain, fever(s), hemoptysis, lightheadedness, myalgias, nausea, orthopnea, palpitations, paresthesias, polydipsia, polyuria, rash, sense of impending doom, syncope or vomiting Treatment prior to arrival: none Review of Systems Const: Denies: fever(s) or diaphoresis Card: Denies: chest pain, palpitations, lightheadedness, syncope or orthopnea Resp: Reports: dyspnea, non-productive cough, wheezing and chest congestion; Denies: hemoptysis GI: Denies: abdominal pain, nausea or vomiting : Denies: dysuria, urinary frequency or urinary urgency Musc: Denies: extremity pain Skin/Breast: Denies: rash Neuro: Denies: dizziness Endo: Denies: polyuria or polydipsia [facility] PFSH: Medical History Urinary tract infection Dysuria Pain management contract agreement Falls frequently Tremor 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, severe, 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 Smoker unmotivated to quit Uterine prolapse PMB (postmenopausal bleeding) Prediabetes Chronic bronchitis with COPD (chronic obstructive pulmonary disease) Mixed hyperlipidemia Psychiatric care Osteoarthritis (arthritis due to wear and tear of joints) Chronic pain disorder Right shoulder, bilateral lower extremities Obesity (BMI 30.0-34.9) GERD (gastroesophageal reflux disease) Other schizophrenia Surgical History Status post bilateral salpingo-oophorectomy (BSO) S/P laparoscopic assisted vaginal hysterectomy (LAVH) Family History Other CAD (coronary artery disease) Hypertension Social History Substance/Drug Use: never Do you think of yourself as: Straight/Heterosexual Female Reproductive History: Para: 2 Physical Exam Const: COMMON NORMALS: no acute distress GENERAL APPEARANCE: cooperative and comfortable ORIENTATION/CONSCIOUSNESS: Yes awake, Yes oriented to person, Yes oriented to place and Yes oriented to time HENMT: COMMON NORMALS: normocephalic, atraumatic and hearing grossly normal bilaterally HEAD & SCALP: normocephalic and atraumatic Resp: COMMON NORMALS: normal respiratory effort, No retractions, No use of accessory muscles and clear to auscultation bilaterally AUSCULTATION: clear to auscultation bilaterally Cardio: COMMON NORMALS: regular rate, regular rhythm and No murmurs present (Cardio) RATE: regular rate RHYTHM: regular rhythm GI: COMMON NORMALS: Soft to palpation and No hepatosplenomegaly present AUSCULTATION: Yes normoactive bowel sounds PALPATION: Yes Soft to palpation, No Tenderness to palpation present (GI), No Guarding due to palpation present (GI) and Yes No hepatosplenomegaly present Extremity: COMMON NORMALS: normal to inspection, capillary refill normal, no clubbing, cyanosis or edema, no calf tenderness and no pedal edema Neuro: SENSORIUM/ORIENTATION: Yes oriented to person, Yes oriented to place and Yes oriented to time Skin: COMMON NORMALS: no rashes or lesions noted GENERAL SKIN EXAM: no rashes or lesions noted Course Vital Signs: Vital signs: Vital Signs Temperature 97.6 F 09/13/23 04:00 Pulse Rate 88 09/13/23 04:00 Respiratory Rate 18 09/13/23 04:00 Blood Pressure 112/71 09/13/23 04:00 Pulse Oximetry 92 09/13/23 04:00 Oxygen Delivery Me thod Nasal Cannula 09/13/23 04:00 Oxygen Flow Rate 2 09/13/23 02:41 MDM - SOB/Dyspnea Medical Decision Making Care signed out to Dr. Ross at change of shift. See final notes for diagnosis and disposition. Medical Records I reviewed the patient's medical records. Lab Data I reviewed the patient's lab results. 09/13/23 04:21 09/13/23 04:21 Labs/Radiology: Radiology Impressions Chest X-Ray 09/12/23 17:06 IMPRESSION: I see no acute abnormality. Laboratory Results WBC 15.38 10^3/uL (3.29-11.43) H 09/12/23 16:52 RBC 4.37 10^6/uL (3.85-5.65) 09/12/23 16:52 Hgb 13.40 g/dL (11.27-16.99) 09/12/23 16:52 Hct 40.5 % (36-47) 09/12/23 16:52 MCV 92.7 fl (85-98) 09/12/23 16:52 MCH 30.7 pg (27-33) 09/12/23 16:52 MCHC 33.1 g/dL (30-55) 09/12/23 16:52 RDW 14.1 % (12.1-15.1) 09/12/23 16:52 Plt Count 259 10^3/cmm (157-399) 09/12/23 16:52 MPV 9.6 fL (7.4-10.4) 09/12/23 16:52 Neut % (Auto) 90.9 % 09/12/23 16:52 Lymph % (Auto) 4.8 % 09/12/23 16:52 [place] % (Auto) 3.4 % 09/12/23 16:52 Eos % (Auto) 0.1 % 09/12/23 16:52 Baso % (Auto) 0.1 % 09/12/23 16:52 Neut # (Auto) 13.96 10^3/uL (1.8-7.7) H 09/12/23 16:52 Lymph # (Auto) 0.7 10^3/uL (0.8-4.8) L 09/12/23 16:52 [place] # (Auto) 0.5 10^3/uL (0.2-0.9) 09/12/23 16:52 Eos # (Auto) 0.0 10^3/uL (0.0-0.8) 09/12/23 16:52 Baso # (Auto) 0.0 10^3/uL (0.0-0.1) 09/12/23 16:52 Nucleated RBC % (auto) 0 % 09/12/23 16:52 Nucleated RBCs # 0.0 /100WBC 09/12/23 16:52 D-Dimer 1.47 ug/mLFEU (0-0.59) H 09/12/23 16:52 Sodium 136 mmol/L (136-145) 09/12/23 16:52 Potassium 3.8 mmol/L (3.5-5.1) 09/12/23 16:52 Chloride 99 mmol/L (98-107) 09/12/23 16:52 Carbon Dioxide 28 mmol/L (22-29) 09/12/23 16:52 Anion Gap 12.8 (5-19) 09/12/23 16:52 BUN 9 mg/dL (6-20) 09/12/23 16:52 Creatinine 0.7 mg/dL (0.5-0.9) 09/12/23 16:52 GFR Calculation 85.6 mL/min (90-130) L 09/12/23 16:52 Glucose 127 mg/dL (65-115) H 09/12/23 16:52 Calculated Osmolality 282 mOsm/kg (285-295) L 09/12/23 16:52 Lactic Acid 1.6 mmol/L (0.5-2.2) 09/12/23 20:15 Calcium 9.1 mg/dL (8.5-10.5) 09/12/23 16:52 Iron 41 ug/dL (37-145) 09/12/23 16:52 TIBC 284 mcg/dl 09/12/23 16:52 % Saturation 14.4 % (20-50) L 09/12/23 16:52 Unsat Iron Binding 243 ug/dL (112-347) 09/12/23 16:52 Total Bilirubin 0.4 mg/dL (0.15-1.2) 09/12/23 16:52 AST 25 U/L (0-32) 09/12/23 16:52 ALT 26 U/L (0-33) 09/12/23 16:52 Alkaline Phosphatase 166 U/L (35-105) H 09/12/23 16:52 Total Protein 7.3 g/dL (6.6-8.7) 09/12/23 16:52 Albumin 4.4 g/dL (3.5-5.2) 09/12/23 16:52 Globulin 2.9 g/dL (1.3-4.6) 09/12/23 16:52 Vitamin B12 254 pg/mL (232-1245) 09/12/23 16:52 Procalcitonin 0.10 ng/mL (0-0.5) 09/12/23 16:52 Urine Color Yellow (Yellow) 09/12/23 21:12 Urine Appearance Clear (CLEAR) 09/12/23 21:12 Urine pH 5 (5-7) 09/12/23 21:12 Ur Specific [place] 1.010 (1.005-1.030) 09/12/23 21:12 Urine Protein Neg (Negative) 09/12/23 21:12 Urine Glucose (UA) Norm (Normal) 09/12/23 21:12 Urine Ketones Negative (Negative) 09/12/23 21:12 Urine Blood Neg (Negative) 09/12/23 21:12 Urine Nitrate Negative (Negative) 09/12/23 21:12 Urine Bilirubin Neg (Negative) 09/12/23 21:12 Prot Sulfosalicylic Acd Cancelled 09/12/23 20:02 Urine Urobilinogen Neg mg/dL (Negative) 09/12/23 21:12 Ur Leukocyte Esterase Negative (Negative) 09/12/23 21:12 Urine RBC None /hpf (0-2) 09/12/23 21:12 Urine WBC None /hpf (0-5) 09/12/23 21:12 Ur Squamous Epith Cells 5-10 /hpf (0-5) H 09/12/23 21:12 Amorphous Sediment Not Reportable 09/12/23 21:12 Urine Bacteria None /hpf (NONE) 09/12/23 21:12 Coronavirus 229E (PCR) Not detected (NOT DETECT) 09/12/23 17:56 Influenza Type A Ag negative (Negative) 09/12/23 17:56 Influenza Type B Ag negative (Negative) 09/12/23 17:56 SARS-CoV-2 (PCR) Not detected (NOT DETECT) 09/12/23 17:56 Discharge Plan Discharge Patient Disposition: Admitted As Inpatient Admit Provider: Tyson El Clinical Impression: COPD exacerbation, Hypoxemia Condition: Stable Coding Level of Care Code ED Crepe Box Tender for Chg Fwd Documented by User: Jose Ross MD 09/12/23 22:53 HPI - SOB/Dyspnea General: Chief Complaint: Shortness of Breath/Dyspnea Stated Complaint: resp distress Time Seen by Provider: 09/12/23 17:06 PFSH ED PFSH: Medical History Urinary tract infection Dysuria Pain management contract agreement Falls frequently Tremor 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, severe, 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 Smoker unmotivated to quit Uterine prolapse PMB (postmenopausal bleeding) Prediabetes Chronic bronchitis with COPD (chronic obstructive pulmonary disease) Mixed hyperlipidemia Psychiatric care Osteoarthritis (arthritis due to wear and tear of joints) Chronic pain disorder Right shoulder, bilateral lower extremities Obesity (BMI 30.0-34.9) GERD (gastroesophageal reflux disease) Other schizophrenia Surgical History Status post bilateral salpingo-oophorectomy (BSO) S/P laparoscopic assisted vaginal hysterectomy (LAVH) Family History Other CAD (coronary artery disease) Hypertension Social History Substance/Drug Use: never Do you think of yourself as: Straight/Heterosexual Course Vital Signs: Vital signs: Vital Signs Temperature 97.6 F 09/13/23 04:00 Pulse Rate 88 09/13/23 04:00 Respiratory Rate 18 09/13/23 04:00 Blood Pressure 112/71 09/13/23 04:00 Pulse Oximetry 92 09/13/23 04:00 Oxygen Delivery Me thod Nasal Cannula 09/13/23 04:00 Oxygen Flow Rate 2 09/13/23 02:41 MDM - SOB/Dyspnea Lab Data 09/13/23 04:21 09/13/23 04:21 Labs/Radiology: Radiology Impressions Chest X-Ray 09/12/23 17:06 IMPRESSION: I see no acute abnormality. Laboratory Results WBC 15.38 10^3/uL (3.29-11.43) H 09/12/23 16:52 RBC 4.37 10^6/uL (3.85-5.65) 09/12/23 16:52 Hgb 13.40 g/dL (11.27-16.99) 09/12/23 16:52 Hct 40.5 % (36-47) 09/12/23 16:52 MCV 92.7 fl (85-98) 09/12/23 16:52 MCH 30.7 pg (27-33) 09/12/23 16:52 MCHC 33.1 g/dL (30-55) 09/12/23 16:52 RDW 14.1 % (12.1-15.1) 09/12/23 16:52 Plt Count 259 10^3/cmm (157-399) 09/12/23 16:52 MPV 9.6 fL (7.4-10.4) 09/12/23 16:52 Neut % (Auto) 90.9 % 09/12/23 16:52 Lymph % (Auto) 4.8 % 09/12/23 16:52 [place] % (Auto) 3.4 % 09/12/23 16:52 Eos % (Auto) 0.1 % 09/12/23 16:52 Baso % (Auto) 0.1 % 09/12/23 16:52 Neut # (Auto) 13.96 10^3/uL (1.8-7.7) H 09/12/23 16:52 Lymph # (Auto) 0.7 10^3/uL (0.8-4.8) L 09/12/23 16:52 [place] # (Auto) 0.5 10^3/uL (0.2-0.9) 09/12/23 16:52 Eos # (Auto) 0.0 10^3/uL (0.0-0.8) 09/12/23 16:52 Baso # (Auto) 0.0 10^3/uL (0.0-0.1) 09/12/23 16:52 Nucleated RBC % (auto) 0 % 09/12/23 16:52 Nucleated RBCs # 0.0 /100WBC 09/12/23 16:52 D-Dimer 1.47 ug/mLFEU (0-0.59) H 09/12/23 16:52 Sodium 136 mmol/L (136-145) 09/12/23 16:52 Potassium 3.8 mmol/L (3.5-5.1) 09/12/23 16:52 Chloride 99 mmol/L (98-107) 09/12/23 16:52 Carbon Dioxide 28 mmol/L (22-29) 09/12/23 16:52 Anion Gap 12.8 (5-19) 09/12/23 16:52 BUN 9 mg/dL (6-20) 09/12/23 16:52 Creatinine 0.7 mg/dL (0.5-0.9) 09/12/23 16:52 GFR Calculation 85.6 mL/min (90-130) L 09/12/23 16:52 Glucose 127 mg/dL (65-115) H 09/12/23 16:52 Calculated Osmolality 282 mOsm/kg (285-295) L 09/12/23 16:52 Lactic Acid 1.6 mmol/L (0.5-2.2) 09/12/23 20:15 Calcium 9.1 mg/dL (8.5-10.5) 09/12/23 16:52 Iron 41 ug/dL (37-145) 09/12/23 16:52 TIBC 284 mcg/dl 09/12/23 16:52 % Saturation 14.4 % (20-50) L 09/12/23 16:52 Unsat Iron Binding 243 ug/dL (112-347) 09/12/23 16:52 Total Bilirubin 0.4 mg/dL (0.15-1.2) 09/12/23 16:52 AST 25 U/L (0-32) 09/12/23 16:52 ALT 26 U/L (0-33) 09/12/23 16:52 Alkaline Phosphatase 166 U/L (35-105) H 09/12/23 16:52 Total Protein 7.3 g/dL (6.6-8.7) 09/12/23 16:52 Albumin 4.4 g/dL (3.5-5.2) 09/12/23 16:52 Globulin 2.9 g/dL (1.3-4.6) 09/12/23 16:52 Vitamin B12 254 pg/mL (232-1245) 09/12/23 16:52 Procalcitonin 0.10 ng/mL (0-0.5) 09/12/23 16:52 Urine Color Yellow (Yellow) 09/12/23 21:12 Urine Appearance Clear (CLEAR) 09/12/23 21:12 Urine pH 5 (5-7) 09/12/23 21:12 Ur Specific [place] 1.010 (1.005-1.030) 09/12/23 21:12 Urine Protein Neg (Negative) 09/12/23 21:12 Urine Glucose (UA) Norm (Normal) 09/12/23 21:12 Urine Ketones Negative (Negative) 09/12/23 21:12 Urine Blood Neg (Negative) 09/12/23 21:12 Urine Nitrate Negative (Negative) 09/12/23 21:12 Urine Bilirubin Neg (Negative) 09/12/23 21:12 Prot Sulfosalicylic Acd Cancelled 09/12/23 20:02 Urine Urobilinogen Neg mg/dL (Negative) 09/12/23 21:12 Ur Leukocyte Esterase Negative (Negative) 09/12/23 21:12 Urine RBC None /hpf (0-2) 09/12/23 21:12 Urine WBC None /hpf (0-5) 09/12/23 21:12 Ur Squamous Epith Cells 5-10 /hpf (0-5) H 09/12/23 21:12 Amorphous Sediment Not Reportable 09/12/23 21:12 Urine Bacteria None /hpf (NONE) 09/12/23 21:12 Coronavirus 229E (PCR) Not detected (NOT DETECT) 09/12/23 17:56 Influenza Type A Ag negative (Negative) 09/12/23 17:56 Influenza Type B Ag negative (Negative) 09/12/23 17:56 SARS-CoV-2 (PCR) Not detected (NOT DETECT) 09/12/23 17:56 All radiology interpretation(s) finalized by discharge Discharge Plan Discharge Patient Disposition: Admitted As Inpatient Admit Provider: Tyson El Clinical Impression: COPD exacerbation, Hypoxemia Condition: Stable Coding Level of Care Code ED Crepe Box Tender for 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
--- NOTE | 2023-09-12 17:13 | ECG_ITS ---
[facility] Test Date: 2023-09-12 Pat Name: Hilda Nolan Department: Room: Gender: Female Boarder Hand: : 1965 Requested By: Cesar Causey Order Number: [id number] Kimberly MD: Vicki Greenwood M.D. Measurements Intervals [place] Rate: 116 P: 65 [place]: 134 QRS: 54 QRSD: 91 T: 58 QT: 327 QTc: 454 Interpretive Statements SINUS TACHYCARDIA POSSIBLE LEFT ATRIAL ENLARGEMENT [-0.1mV P-WAVE IN V1/V2] INCOMPLETE RIGHT BUNDLE BRANCH BLOCK [90+ ms QRS DURATION, TERMINAL R IN V1/V2, 40+ ms S IN I/aVL/V4/V5/V6] ABNORMAL RHYTHM ECG Compared to ECG 09/09/2023 12:07:19 Incomplete right bundle-branch block now present Sinus rhythm no longer present Electronically Signed On 09-13-2023 10:50:06 CERTIFIED NURSING ASSISTANT by Vicki Greenwood M.D. [email or web address]
[2023-09-12 17:17] LABS: Basophils % 0.1 %; Eosinophils % 0.1 %; Hematocrit 40.5 % (36-47); Lymphocytes # 0.7 10^3/uL (0.8-4.8); Lymphocytes % 4.8 %; Mean Corpuscular HGB Conc 33.1 g/dL (30-55); Mean Corpuscular Hemoglobin 30.7 pg (27-33); Mean Corpuscular Volume 92.7 fl (85-98); Mean Platelet Volume 9.6 fL (7.4-10.4); Monocytes # 0.5 10^3/uL (0.2-0.9); Monocytes % 3.4 %; Neutrophils # 13.96 10^3/uL (1.8-7.7); Neutrophils % 90.9 %; Nucleated Red Blood Cells % 0 %; Platelet Count 259 10^3/cmm (157-399); Red Blood Count 4.37 10^6/uL (3.85-5.65); Red Cell Distribution Width 14.1 % (12.1-15.1); White Blood Count 15.38 10^3/uL (3.29-11.43)
[2023-09-12 17:35] LABS: Alanine Aminotransferase 26 U/L (0-33); Albumin Level 4.4 g/dL (3.5-5.2); Alkaline Phosphatase 166 U/L (35-105); Anion Gap 12.8 (5-19); Aspartate Amino Transferase 25 U/L (0-32); Blood Urea Nitrogen 9 mg/dL (6-20); Calcium 9.1 mg/dL (8.5-10.5); Carbon Dioxide 28 mmol/L (22-29); Chloride 99 mmol/L (98-107); Creatinine Clr Calc Pharmacy 83.1998; Globulin 2.9 g/dL (1.3-4.6); Glomerular Filtration Rate 85.6 mL/min (90-130); Glucose 127 mg/dL (65-115); Osmolality Calculated 282 mOsm/kg (285-295); Potassium 3.8 mmol/L (3.5-5.1); Sodium 136 mmol/L (136-145); Total Bilirubin 0.4 mg/dL (0.15-1.2); Total Protein 7.3 g/dL (6.6-8.7)
[2023-09-12] MEDS: acetaminophen 325 mg Tablet 650 MG PO (17:54)
[2023-09-12] MEDS: ipratropium-albuterol 3 mL Neb INHALATION (17:58)
[2023-09-12 18:38] LABS: Influenza A by IFA negative (Negative); Influenza B by IFA negative (Negative)
[2023-09-12] MEDS: dexamethasone 10 mg/mL INJ IM (19:03)
[2023-09-12 20:10] LABS: Adenovirus Not Detected (NOT DETECT); Chlamydia Pneumoniae Not Detected (NOT DETECT); Coronavirus 229E,HKU1,NL63,OC4 Not Detected (NOT DETECT); Human Metapneumovirus Not Detected (NOT DETECT); Human Rhinovirus/Enterovirus Not Detected (NOT DETECT); Influenza A Not Detected (NOT DETECT); Influenza A H1 Not Detected (NOT DETECT); Influenza A H1-2009 Not Detected (NOT DETECT); Influenza A H3 Not Detected (NOT DETECT); Influenza B Not Detected (NOT DETECT); Mycoplasma Pneumoniae Not Detected (NOT DETECT); Parainfluenza Virus Type 1 Not Detected (NOT DETECT); Parainfluenza Virus Type 2 Not Detected (NOT DETECT); Parainfluenza Virus Type 3 Not Detected (NOT DETECT); Parainfluenza Virus Type 4 Not Detected (NOT DETECT); Respiratory Syncytial Virus A Not Detected (NOT DETECT); Respiratory Syncytial Virus B Not Detected (NOT DETECT); SARS-COV-2 Not Detected (NOT DETECT)
[2023-09-12 20:33] LABS: D Dimer 1.47 ug/mLFEU (0-0.59)
[2023-09-12 20:42] LABS: Lactic Sepsis W/Reflex 1.6 mmol/L (0.5-2.2)
[2023-09-12] MEDS: morphine 4 mg/mL SDV 1 mL IVP (20:42)
[2023-09-12] MEDS: ondansetron 2 mg/ML SDV 2 mL 4 MG IVP (20:42)
[2023-09-12] MEDS: cefTRIAXone 2,000 MG in sodium chloride 0.9% (plus) 50 ML 100 MG IV (20:45)
[2023-09-12] MEDS: azithromycin 500 MG in sodium chloride 0.9% 250 ML 250 MG IV (20:47)
[2023-09-12 21:59] LABS: Add Urine Culture? No; Bilirubin Urine Neg (Negative); Blood Urine Neg (Negative); Glucose Urine UA Norm (Normal); Ketones Urine Negative (Negative); Leukocyte Esterase Urine Negative (Negative); Nitrate Urine Negative (Negative); Protein Urine Neg (Negative); Urine Appearance Clear (CLEAR); Urine Color Yellow (Yellow); Urobilinogen Urine Neg (Negative); pH Urine 5 (5-7)
[2023-09-12] MEDS: mirtazapine 15 mg Tablet 45 MG PO (22:28)
[2023-09-12] MEDS: cloZAPine 100 mg Tablet 350 MG PO (22:29)
[2023-09-12] MEDS: heparin 5,000 unit/mL INJ 1 mL 5000 UNIT SUBCUT (22:29)
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
[2023-09-12 23:50] LABS: Iron 41 ug/dL (37-145); Percent Saturation 14.4 % (20-50); Total Iron Binding Capacity 284 mcg/dl; Unsaturated Iron Binding 243 ug/dL (112-347)
[2023-09-13] VITALS (10 sets, daily range): BP systolic 97–112; BP diastolic 62–75; PULSE 85–98; RESP 16–20; TEMP 36.3–36.8; O2SAT 91–96
[2023-09-13 00:06] LABS: Vitamin B12 254 pg/mL (232-1245)
[2023-09-13] MEDS: TRAMadol 50 mg Tablet PO ×2 (00:30→11:32)
[2023-09-13] MEDS: ipratropium 0.5 mg/2.5 mL Neb INHALATION ×2 (02:46→08:19)
[2023-09-13] MEDS: levalbuterol 0.63 mg/3 mL Neb 0.630000000000000004 MG INHALATION ×2 (02:46→08:19)
[2023-09-13] MEDS: morphine 4 mg/mL SDV 1 mL 2 MG IVP ×2 (03:09→09:10)
[2023-09-13 05:19] LABS: Basophils # 0.1 10^3/uL (0.0-0.1); Basophils % 0.2 %; Eosinophils % 0.2 %; Lymphocytes # 1.1 10^3/uL (0.8-4.8); Lymphocytes % 4.8 %; Mean Corpuscular HGB Conc 32.7 g/dL (30-55); Mean Corpuscular Hemoglobin 30.3 pg (27-33); Mean Corpuscular Volume 92.5 fl (85-98); Mean Platelet Volume 9.7 fL (7.4-10.4); Monocytes # 0.4 10^3/uL (0.2-0.9); Monocytes % 1.9 %; Neutrophils % 91.7 %; Nucleated Red Blood Cells % 0 %; Platelet Count 255 10^3/cmm (157-399); Red Cell Distribution Width 13.8 % (12.1-15.1); White Blood Count 23.44 10^3/uL (3.29-11.43)
[2023-09-13 05:44] LABS: Alanine Aminotransferase 21 U/L (0-33); Albumin Level 3.7 g/dL (3.5-5.2); Alkaline Phosphatase 136 U/L (35-105); Anion Gap 15.4 (5-19); Aspartate Amino Transferase 12 U/L (0-32); Blood Urea Nitrogen 9 mg/dL (6-20); Calcium 9.1 mg/dL (8.5-10.5); Carbon Dioxide 26 mmol/L (22-29); Chloride 102 mmol/L (98-107); Creatinine Clr Calc Pharmacy 99.5061; Globulin 2.8 g/dL (1.3-4.6); Glomerular Filtration Rate 102.3 mL/min (90-130); Glucose 173 mg/dL (65-115); Magnesium 2.1 mg/dL (1.7-2.3); Osmolality Calculated 291 mOsm/kg (285-295); Phosphorus 2.5 mg/dL (2.5-4.5); Potassium 4.4 mmol/L (3.5-5.1); Sodium 139 mmol/L (136-145); Total Bilirubin 0.2 mg/dL (0.15-1.2); Total Protein 6.5 g/dL (6.6-8.7)
[2023-09-13 05:46] LABS: Chol HDL Ratio 3.85 mg/dL (0.0-4.40); Cholesterol 127 mg/dL (0-200); HDL Cholesterol 33 mg/dL (60-100); LDL Cholesterol Calculated 78 mg/dL (50-129); LDL HDL Ratio 2.36 RATIO (0.00-3.22); Triglycerides 78 mg/dL (0-150)
[2023-09-13 05:51] LABS: Estmated Average Glucose 108; Hemoglobin A1C 5.4 % (4.0-6.0)
[2023-09-13] MEDS: citalopram 20 mg Tablet 40 MG PO (06:48)
[2023-09-13] MEDS: benztropine 1 mg Tablet PO (06:48)
[2023-09-13] MEDS: atorvastatin 40 mg Tablet 20 MG PO (06:48)
[2023-09-13] MEDS: cloZAPine 100 mg Tablet 200 MG PO (06:48)
[2023-09-13] MEDS: gabapentin 300 mg Capsule PO (08:41)
[2023-09-13] MEDS: LORazepam 0.5 mg Tablet PO (08:41)
[2023-09-13] MEDS: pantoprazole DR 40 mg Tablet PO (08:42)
[2023-09-13] MEDS: methylPREDNISolone sod succ 40 mg/mL INJ IVP (08:42)
[2023-09-13] MEDS: azithromycin 250 mg Tablet 500 MG PO (08:42)
[2023-09-13] MEDS: heparin 5,000 unit/mL INJ 1 mL 5000 UNIT SUBCUT (08:42)
--- NOTE | 2023-09-13 08:47 | USCV_ITS ---
Hilda Nolan Age: 58 Gender: F : 1965 Exam Date: 09/13/2023 10:32 Ordering Phys: Yolette Bojorquez MD Technologist: Exam Location: [facility] [place]ication: chest pain BP: 130 / 80 HR: 0 Rhythm: Sinus Technical Quality: Adequate MEASUREMENTS (Male / Female) Normal Values 2D ECHO LV Diastolic Diameter PLAX 4.5 cm 4.2 - 5.9 / 3.9 - 5.3 cm IVS Diastolic Thickness 0.9 cm 0.6 - 1.0 / 0.6 - 0.9 cm IVS Systolic Thickness 1.3 cm LVPW Diastolic Thickness 1.0 cm 0.6 - 1.0 / 0.6 - 0.9 cm LVPW Systolic Thickness 1.5 cm LVOT Diameter 2.0 cm LV Ejection Fraction 2D Teich 66.5 % LV Ejection Fraction MOD 2C 75.5 % LV Ejection Fraction 2C AL 0.0 % LA Diameter 3.6 cm IVC Diameter 1.7 cm M-MODE LA Ao Ratio MM 1.3 AV Cusp Separation MM 1.6 cm DOPPLER AV Peak Velocity 165.0 cm/s LVOT Peak Velocity 107.0 cm/s AV Area Cont Eq vti 2.2 cm squared AV Area Cont Eq pk 2.0 cm squared MV Peak Velocity 104.0 cm/s MV Area PHT 4.8 cm squared Mitral E to A Ratio 1.0 TR Peak Velocity 131.0 cm/s TR Peak Gradient 6.9 mmHg TV Peak E Velocity 93.0 cm/s Right Atrial Pressure 3.0 mmHg Pulmonary Artery Systolic Pressu 9.9 mmHg PV Peak Velocity 114.0 cm/s FINDINGS Left Ventricle Left ventricle is normal size. LV systolic function is normal with EF of 55-60%. No regional wall motion abnormalities. Right Ventricle Normal in size and function Right Atrium Normal in size Left Atrium Normal in size Mitral Valve Structurally normal mitral valve. Mild mitral regurgitation. Aortic Valve Structurally normal aortic valve. No significant stenosis or regurgitation. Tricuspid Valve Mild tricuspid regurgitation. Insufficient TR jet to evaluate RVSP. Pulmonic Valve Mild pulmonic regurgitation Pericardium Normal Aorta Normal in size IVC Appears to be normal CONCLUSIONS LV systolic function is normal with EF of 55-60% Mild mitral regurgitation Mild tricuspid regurgitation Mild pulmonic regurgitation No comparison studies are available. Edwin You MD (Electronically Signed) Final Date: 13 September 2023 12:02 S
--- NOTE | 2023-09-13 10:06 | P.DS_ITS ---
Discharge Providers Date of Admission: 09/12/23 21:14 Date of Discharge: September 13, 2023 Attending Provider at Admission: Tyson El MD Attending Provider at Discharge: Yolette Bojorquez MD Primary Care Provider: Evans Olvera MD Diagnoses at Discharge Discharge Diagnosis (1) COPD exacerbation: Status: Acute (2) Acute bronchitis with COPD: Status: Acute (3) Hypoxemia: Status: Acute (4) Smoker unmotivated to quit: Status: Acute Reason for Visit Reason for Visit: resp distress Hospital Course Hospital Course 38 female who is an active smoker, presented to hospital for chief complaint of shortness of breath, she was diagnosed with bronchitis, overnight she received antibiotics along steroids, at the time of evaluation patient is not wheezing, she did not qualify for home oxygen on home O2 eval, she is hemodynamic stable, considering high D-dimer and mild crackles on lung auscultation I requested CTA chest and echo before her discharge. I have counseled patient to quit smoking. I have advised her not to use morphine for her back pain. She already follows up with Dr. Denis for her anxiety. Her chest x-ray is clear, she is afebrile, her leukocytosis is likely related to use of high-dose steroids. Physical Exam Narrative: Currently on room air Mild crackles at lung bases right greater than left GCS 15 Awake and alert Able to walk without any difficulty Pleasant cooperative S1, S2 Discharge Data Studies Completed and Pending Completed Studies During Hospitalization Category Date Time Status XR chest 1V portable [id number] Stat Exams 09/12/23 17:06 Completed Pending at discharge Category Date Time Status Bacterial Antigen Stat Lab 09/12/23 21:12 Received Blood Culture Stat Lab 09/12/23 20:18 Results MRSA [Methicillin Resistant S.aureu] Routine Lab 09/12/23 21:50 Ordered Sputum Culture and Gram Stain Stat Lab 09/12/23 20:39 Uncollected CV. echo complete* [id number] Routine Ultrasound 09/13/23 08:47 Ordered Radiology Impressions Chest X-Ray 09/12/23 17:06 IMPRESSION: I see no acute abnormality. Laboratory Results WBC 23.44 10^3/uL (3.29-11.43) H 09/13/23 04:21 RBC 4.00 10^6/uL (3.85-5.65) 09/13/23 04:21 Hgb 12.10 g/dL (11.27-16.99) 09/13/23 04:21 Hct 37.0 % (36-47) 09/13/23 04:21 MCV 92.5 fl (85-98) 09/13/23 04:21 MCH 30.3 pg (27-33) 09/13/23 04:21 MCHC 32.7 g/dL (30-55) 09/13/23 04:21 RDW 13.8 % (12.1-15.1) 09/13/23 04:21 Plt Count 255 10^3/cmm (157-399) 09/13/23 04:21 MPV 9.7 fL (7.4-10.4) 09/13/23 04:21 Neut % (Auto) 91.7 % 09/13/23 04:21 Lymph % (Auto) 4.8 % 09/13/23 04:21 [place] % (Auto) 1.9 % 09/13/23 04:21 Eos % (Auto) 0.2 % 09/13/23 04:21 Baso % (Auto) 0.2 % 09/13/23 04:21 Neut # (Auto) 21.50 10^3/uL (1.8-7.7) H 09/13/23 04:21 Lymph # (Auto) 1.1 10^3/uL (0.8-4.8) 09/13/23 04:21 [place] # (Auto) 0.4 10^3/uL (0.2-0.9) 09/13/23 04:21 Eos # (Auto) 0.0 10^3/uL (0.0-0.8) 09/13/23 04:21 Baso # (Auto) 0.1 10^3/uL (0.0-0.1) 09/13/23 04:21 Nucleated RBC % (auto) 0 % 09/13/23 04:21 Nucleated RBCs # 0.0 /100WBC 09/13/23 04:21 D-Dimer 1.47 ug/mLFEU (0-0.59) H 09/12/23 16:52 Sodium 139 mmol/L (136-145) 09/13/23 04:21 Potassium 4.4 mmol/L (3.5-5.1) 09/13/23 04:21 Chloride 102 mmol/L (98-107) 09/13/23 04:21 Carbon Dioxide 26 mmol/L (22-29) 09/13/23 04:21 Anion Gap 15.4 (5-19) 09/13/23 04:21 BUN 9 mg/dL (6-20) 09/13/23 04:21 Creatinine 0.6 mg/dL (0.5-0.9) 09/13/23 04:21 GFR Calculation 102.3 mL/min (90-130) 09/13/23 04:21 Glucose 173 mg/dL (65-115) H 09/13/23 04:21 Estimat Average Glucose 108 09/13/23 04:21 Hemoglobin A1c 5.4 % (4.0-6.0) 09/13/23 04:21 Calculated Osmolality 291 mOsm/kg (285-295) 09/13/23 04:21 Lactic Acid 1.6 mmol/L (0.5-2.2) 09/12/23 20:15 Calcium 9.1 mg/dL (8.5-10.5) 09/13/23 04:21 Phosphorus 2.5 mg/dL (2.5-4.5) 09/13/23 04:21 Magnesium 2.1 mg/dL (1.7-2.3) 09/13/23 04:21 Iron 41 ug/dL (37-145) 09/12/23 16:52 TIBC 284 mcg/dl 09/12/23 16:52 % Saturation 14.4 % (20-50) L 09/12/23 16:52 Unsat Iron Binding 243 ug/dL (112-347) 09/12/23 16:52 Total Bilirubin 0.2 mg/dL (0.15-1.2) 09/13/23 04:21 AST 12 U/L (0-32) 09/13/23 04:21 ALT 21 U/L (0-33) 09/13/23 04:21 Alkaline Phosphatase 136 U/L (35-105) H 09/13/23 04:21 Total Protein 6.5 g/dL (6.6-8.7) L 09/13/23 04:21 Albumin 3.7 g/dL (3.5-5.2) 09/13/23 04:21 Globulin 2.8 g/dL (1.3-4.6) 09/13/23 04:21 Triglycerides 78 mg/dL (0-150) 09/13/23 04:21 Cholesterol 127 mg/dL (0-200) 09/13/23 04:21 LDL Cholesterol, Calc 78 mg/dL (50-129) 09/13/23 04:21 HDL Cholesterol 33 mg/dL (60-100) L 09/13/23 04:21 LDL/HDL Ratio 2.36 RATIO (0.00-3.22) 09/13/23 04:21 Cholesterol/HDL Ratio 3.85 mg/dL (0.0-4.40) 09/13/23 04:21 Vitamin B12 254 pg/mL (232-1245) 09/12/23 16:52 Folate 6.0 ng/mL (4.8-37.3) 09/13/23 04:21 Procalcitonin 0.10 ng/mL (0-0.5) 09/12/23 16:52 Urine Color Yellow (Yellow) 09/12/23 21:12 Urine Appearance Clear (CLEAR) 09/12/23 21:12 Urine pH 5 (5-7) 09/12/23 21:12 Ur Specific [place] 1.010 (1.005-1.030) 09/12/23 21:12 Urine Protein Neg (Negative) 09/12/23 21:12 Urine Glucose (UA) Norm (Normal) 09/12/23 21:12 Urine Ketones Negative (Negative) 09/12/23 21:12 Urine Blood Neg (Negative) 09/12/23 21:12 Urine Nitrate Negative (Negative) 09/12/23 21:12 Urine Bilirubin Neg (Negative) 09/12/23 21:12 Prot Sulfosalicylic Acd Cancelled 09/12/23 20:02 Urine Urobilinogen Neg mg/dL (Negative) 09/12/23 21:12 Ur Leukocyte Esterase Negative (Negative) 09/12/23 21:12 Urine RBC None /hpf (0-2) 09/12/23 21:12 Urine WBC None /hpf (0-5) 09/12/23 21:12 Ur Squamous Epith Cells 5-10 /hpf (0-5) H 09/12/23 21:12 Amorphous Sediment Not Reportable 09/12/23 21:12 Urine Bacteria None /hpf (NONE) 09/12/23 21:12 Coronavirus 229E (PCR) Not detected (NOT DETECT) 09/12/23 17:56 Influenza Type A Ag negative (Negative) 09/12/23 17:56 Influenza Type B Ag negative (Negative) 09/12/23 17:56 SARS-CoV-2 (PCR) Not detected (NOT DETECT) 09/12/23 17:56 Vitals Last Vital Signs Temp 98.3 F 09/13/23 07:33 Pulse 98 09/13/23 08:19 Resp 20 H 09/13/23 08:19 BP 98/62 09/13/23 07:33 Pulse Ox 91 09/13/23 09:58 O2 Del Method Nasal Cannula 09/13/23 08:19 O2 Flow Rate 2 09/13/23 08:19 Discharge Plan Discharge Patient Disposition: Home Condition: Stable Prescriptions: New methylprednisolone [Medrol ([place])] 4 mg tablets,dose pack See Rx Instructions .ROUTE .COMPLEX Qty: 21 0RF Rx Instructions: orally per package directions doxycycline hyclate 100 mg tablet 100 mg PO BID 10 Days Qty: 20 0RF Continued docusate sodium 250 mg capsule 250 mg PO BID Qty: 250 2RF meloxicam 7.5 mg tablet 7.5 mg PO BID PRN (Reason: Anxiety) Qty: 30 1RF (DME) walker with seat See Rx Instructions .Route .MEDSUPPLY Qty: 1 0RF Rx Instructions: As directed benztropine 1 mg tablet 1 mg PO DAILY@0730 Qty: 30 11RF nitrofurantoin monohyd/m-cryst [Macrobid] 100 mg capsule 100 mg PO BID Qty: 60 1RF Rx Instructions: must administer with a meal/food montelukast [Singulair] 10 mg tablet 10 mg PO QAM Qty: 90 1RF mirtazapine 45 mg tablet 45 mg PO BEDTIME Qty: 30 11RF Ativan 0.5 mg tablet 0.5 mg PO BID Qty: 60 5RF oxybutynin chloride 15 mg tablet extended release 24hr 15 mg PO BEDTIME Qty: 90 1RF tramadol 50 mg tablet 50 mg PO BID PRN (Reason: pain) 30 Days Qty: 60 3RF citalopram [Celexa] 40 mg tablet 40 mg PO QAM clozapine [Clozaril] 100 mg tablet 350 mg PO BEDTIME clozapine [Clozaril] 200 mg tablet 200 mg PO QAM atorvastatin 20 mg tablet 20 mg PO QAM gabapentin 300 mg capsule 300 mg PO BID acetaminophen [Tylenol Ex Str Rapid Release] 500 mg Tablet 500 - 1,000 mg PO Q6H PRN (Reason: Pain) dexlansoprazole 60 mg capsule,biphase delayed releas 60 mg PO DAILY PRN (Reason: Acid Reflux) fluticasone propionate 50 mcg/actuation spray,suspension 1 spray intranasal BID albuterol sulfate [ProAir HFA] 90 mcg/actuation HFA aerosol inhaler 2 puff inhalation Q4H PRN (Reason: shortness of breath or wheezing) Qty: 17 2RF budesonide-formoterol [Symbicort] 160-4.5 mcg/actuation HFA aerosol inhaler 2 puff inhalation BID Qty: 10.2 3RF Discharge Orders: Discharge Order (Routine); Ordered 09/13/23 Ordered By: Yolette Bojorquez Referrals: Evans Olvera MD [Primary Care Provider] - Patient Instructions: Opioid Safety Discharge Attestations Time Spent in Discharge Care*: greater than 30 min Quality Metrics Clinical Quality Measures [ No reported AMI, CVA or VTE this stay] Coding Level of Care Code Acute Code for [facility] Fwd Diagnoses COPD exacerbation J44.1 Acute bronchitis with COPD J44.0; J20.9 Hypoxemia R09.02 Smoker unmotivated to quit F17.200
--- NOTE | 2023-09-13 10:06 | CT_ITS ---
WS: [id number] CTA OF THE CHEST WITH PULMONARY EMBOLISM PROTOCOL TECHNIQUE: High-resolution contrast enhanced CTA of the chest with coronal and sagittal reformatted i mages with pulmonary embolism protocol. MIP images are also reviewed. CLINICAL INFORMATION: Hypoxia COMPARISON: None. DLP: 399.[address] scans at [facility] use at least one of these dose optimization techniques: automated e xposure control; mA and/or kV adjustment per patient size (includes targeted exams where dose is matc hed to clinical indication); or iterative reconstruction. FINDINGS: Proximal pulmonary arteries are normal. Normal segmental and subsegmental pulmonary arteries. No evid ence of pulmonary embolus. Normal caliber thoracic aorta. No mediastinal or hilar lymphadenopathy. No axillary lymphadenopathy. Mild chronic emphysematous changes. Bibasilar atelectasis. Subsegmental atelectasis RIGHT middle lobe , and bilateral lower lobes. Compressive atelectasis LEFT lower lobe. Adrenal glands are normal. Normal GE junction. IMPRESSION: 1. No evidence of pulmonary embolus. 2. Slight hazy atelectasis in the lung bases. Compressive atelectasis LEFT lower lobe.
[2023-09-13] MEDS: iohexol 350 mg/mL 500 mL Btl (per mL) IV (10:27)
== END 2023-09-13 11:54 | disposition home or self-care (01) | DRG 202 ==
LOC: ER 20:23 → MEDSURG 21:14
PROVIDERS: Family Medicine; Admitting Provider Student in an Organized Health Care Education/Training Program; Emergency Provider Internal Medicine; PCP Family Medicine Adult Medicine; Visit Provider Internal Medicine
DX: J20.9 Acute bronchitis, unspecified (principal); F20.89 Other schizophrenia; J44.0 Chronic obstructive pulmonary disease with (acute) lower respiratory infection; J44.1 Chronic obstructive pulmonary disease with (acute) exacerbation; R09.02 Hypoxemia; F41.9 Anxiety disorder, unspecified; G89.29 Other chronic pain; F17.210 Nicotine dependence, cigarettes, uncomplicated; K21.9 Gastro-esophageal reflux disease without esophagitis; R32 Unspecified urinary incontinence; F15.21 Other stimulant dependence, in remission; N81.4 Uterovaginal prolapse, unspecified; E78.2 Mixed hyperlipidemia; M19.90 Unspecified osteoarthritis, unspecified site; E66.9 Obesity, unspecified; Z11.52 Encounter for screening for COVID-19; Z68.32 Body mass index [BMI] 32.0-32.9, adult; Z79.82 Long term (current) use of aspirin; Z87.440 Personal history of urinary (tract) infections; Z91.81 History of falling
CPT/HCPCS: 36415; 70450; 71045; 71275; 72100; 80053; 80061; 80306; 81001; 82607; 82746; 83036; 83540; 83550; 83605; 83735; 84100; 84145; 85025; 85378; 86403; 87040; 87077; 87086; 87186; 87449; 87635; 87804; 93005; 93306; 94640; 94664; 94760; 96365; 96372; 99285; J0456; J0696; J1100; J1644; J1885; J2270; J2405; J2920; J7050; J7614; J7644; Q0144; Q9967

== ENCOUNTER 2023-09-21 15:29 | Emergency (ER) | payer MEDICARE, MEDICAID, SELFPAY ==
[2023-02-06 10:08] VITALS: BP 132/88; BMI 31.9
[2023-09-21 15:37] VITALS: BP 108/88; PULSE 108; RESP 20; TEMP 36.6; O2SAT 94; BMI 31.1
--- NOTE | 2023-09-21 15:54 | ECG_ITS ---
[facility] Test Date: 2023-09-21 Pat Name: Hilda Nolan Department: Room: Gender: Female Publicity Manager: : 1965 Requested By: Karlos Humphreys Order Number: [id number] Kimberly MD: Vicki Greenwood M.D. Measurements Intervals Jay Rate: 109 P: 69 NH: 138 QRS: 41 QRSD: 78 T: 57 QT: 337 QTc: 454 Interpretive Statements SINUS TACHYCARDIA ABNORMAL RHYTHM ECG Compared to ECG 09/12/2023 17:13:40 Incomplete right bundle-branch block no longer present Electronically Signed On 09-21-2023 18:00:13 [employer] by Vicki Greenwood M.D. [email or web address]
--- NOTE | 2023-09-21 15:54 | XRR_ITS ---
PROCEDURE INFORMATION: Exam: XR Chest Exam date and time: 09/21/2023 4:19 PM Age: 58 years old Clinical indication: Patient HX: C/O shortness of breath; Left chest wall pain x 3-4 days getting worse; HX of copd; Additional info: Shortness of breath with chest wall pain TECHNIQUE: Imaging protocol: Radiologic exam of the chest. Views: 1 view. COMPARISON: 1. CT angio chest PE protcl [id number] 09/13/2023 10:19 AM 2. CR (CHEST, ) 09/12/2023 5:14 PM FINDINGS: Lungs: Unremarkable. No consolidation. Pleural spaces: Unremarkable. No pleural effusion. No pneumothorax. Heart/Mediastinum: Unremarkable. No cardiomegaly. Bones/joints: Unremarkable. XR/XR chest 1V portable [id number] IMPRESSION: No acute findings.
[2023-09-21 16:06] LABS: Basophils # 0.1 10^3/uL (0.0-0.1); Basophils % 0.4 %; Eosinophils # 1.9 10^3/uL (0.0-0.8); Eosinophils % 10.9 %; Lymphocytes # 2.8 10^3/uL (0.8-4.8); Lymphocytes % 15.8 %; Mean Corpuscular HGB Conc 33.3 g/dL (30-55); Mean Corpuscular Hemoglobin 30.4 pg (27-33); Mean Corpuscular Volume 91.5 fl (85-98); Mean Platelet Volume 9.4 fL (7.4-10.4); Monocytes # 1.3 10^3/uL (0.2-0.9); Monocytes % 7.3 %; Neutrophils # 10.78 10^3/uL (1.8-7.7); Neutrophils % 61.3 %; Nucleated Red Blood Cells % 0 %; Platelet Count 242 10^3/cmm (157-399); Red Blood Count 4.37 10^6/uL (3.85-5.65); Red Cell Distribution Width 14.1 % (12.1-15.1)
--- NOTE | 2023-09-21 16:06 | ED_ITS ---
HPI - SOB/Dyspnea 2 General: Chief Complaint: Shortness of Breath/Dyspnea Stated Complaint: sob Time Seen by Provider: 09/21/23 15:35 History of Present Illness: HPI Narrative: 58-year-old female presents emergency de partment with a chief complaint of progressive shortness of breath difficulty breathing and pain on the left side of the chest wall with deep inspiration this been ongoing progressively worse the last 3 to 4 days patient has a known history of COPD she normally does not require oxygen patient presents by EMS for further assessment and management patient does not endorse any prior history of any heart issues patient does report a productive cough with clear sputum production she does not endorse any other associated symptoms. Associated symptoms: Deny abdominal pain, chest pain, extremity pain, fever(s), nausea, palpitations or vomiting Review of Systems 2 General: Reports: 10 or more systems reviewed and unremarkable except in HPI and below Const: Denies: fever(s), chills, fatigue or malaise Eyes: Denies: change in vision or blurry vision Card: Denies: chest pain or palpitations Resp: Reports: dyspnea, productive cough, wheezing and pain on inspiration GI: Denies: abdominal pain, nausea or vomiting : Denies: flank pain Musc: Denies: extremity pain or extremity swelling Skin/Breast: Denies: rash or pruritus Neuro: Denies: headache(s) Psych: Denies: anxiety or depression Trevon/Lymph: Denies: easy bleeding All/Imm: Denies: urticaria, throat swelling or facial swelling PFSH ED 2 PFSH: Medical History UTI (urinary tract infection) Acute bronchitis with COPD Hypoxemia COPD exacerbation Pain management contract agreement Falls frequently Tremor 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, severe, 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 Smoker unmotivated to quit Uterine prolapse PMB (postmenopausal bleeding) Prediabetes Chronic bronchitis with COPD (chronic obstructive pulmonary disease) Mixed hyperlipidemia Psychiatric care Osteoarthritis (arthritis due to wear and tear of joints) Chronic pain disorder Right shoulder, bilateral lower extremities Obesity (BMI 30.0-34.9) GERD (gastroesophageal reflux disease) Other schizophrenia Surgical History Status post bilateral salpingo-oophorectomy (BSO) S/P laparoscopic assisted vaginal hysterectomy (LAVH) Family History Other CAD (coronary artery disease) Hypertension Social History Substance/Drug Use: never Do you think of yourself as: Straight/Heterosexual Female Reproductive History: Para: 2 Physical Exam 2 Const: COMMON NORMALS: patient oriented x3 and healthy appearing; apparent distress (Moderate distress due to difficulty breathing left lateral chest wall pain.) HENMT: COMMON NORMALS: normocephalic and atraumatic HEAD & SCALP: n ormocephalic and atraumatic Eye: COMMON NORMALS: Equal, round and reactive pupils present and EOMs intact bilaterally PUPIL: Yes Equal, round and reactive pupils present Neck/C-Spine: COMMON NORMALS: full ROM, supple and no JVD Lymph: LYMPHATIC: no lymphadenopathy noted Chest: COMMONS NORMALS: normal inspection of the chest and normal palpation of entire chest wall Resp: COMMON NORMALS: No retractions and clear to auscultation bilaterally; negative for normal respiratory effort (Moderate respiratory expiratory wheezing appreciated with respiratory splin) and negative for No use of accessory muscles EFFORT & INSPECTION: Yes able to speak in complete sentences and Yes symmetric chest movement AUSCULTATION: clear to auscultation bilaterally Cardio: COMMON NORMALS: no JVD, regular rate and regular rhythm RATE: r egular rate RHYTHM: regular rhythm GI: COMMON NORMALS: Normal to inspection, nondistended, normoactive bowel sounds present, Soft to palpation and non-tender INSPECTION: Yes normal to inspection PALPATION: Yes Soft to palpation : COMMON NORMALS: Yes no CVA tenderness BLADDER/KIDNEY EXAM: Yes no CVA tenderness Back/Pelvis: COMMON NORMALS: no CVA tenderness Extremity: COMMON NORMALS: normal to inspection and full ROM Neuro: COMMON NORMALS: patient oriented x3, CN's II-XII intact bilaterally, moves all extremities and no focal motor deficits Psych: COMMON NORMALS: mental status grossly normal, Normal thought process present, cooperative and normal affect THOUGHT PROCESS: Normal thought process present Skin: COMMON NORMALS: no rashes or lesions noted GENERAL SKIN EXAM: no rashes or lesions noted Course 2 Vital Signs: Vital signs: Vital Signs Temperature 97.8 F 09/21/23 15:37 Pulse Rate 99 09/21/23 18:18 Respiratory Rate 16 09/21/23 17:14 Blood Pressure 137/93 09/21/23 18:18 Pulse Oximetry 94 09/21/23 18:18 Oxygen Delivery Me thod Room Air 09/21/23 17:14 MDM - SOB/Dyspnea Medical Decision Making Due to patient's symptoms and condition IV was established medications will be obtained underlying concerns of bronchitis versus pneumonia versus others prominent we will continue to follow. [place] through patient's treatment patient still waiting on CT imaging to result as well as respiratory swabs patient demanded to leave AGAINST MEDICAL ADVICE patient was of sound mind and body patient did not give any additional reasoning for her weight to which she said she would rather fucking go home patient was observed leaving the ER no obvious acute distress. Lab Data 09/21/23 15:17 09/21/23 15:17 Labs/Radiology: Laboratory Results WBC 17.60 10^3/uL (3.29-11.43) H 09/21/23 15:17 RBC 4.37 10^6/uL (3.85-5.65) 09/21/23 15:17 Hgb 13.30 g/dL (11.27-16.99) 09/21/23 15:17 Hct 40.0 % (36-47) 09/21/23 15:17 MCV 91.5 fl (85-98) 09/21/23 15:17 MCH 30.4 pg (27-33) 09/21/23 15:17 MCHC 33.3 g/dL (30-55) 09/21/23 15:17 RDW 14.1 % (12.1-15.1) 09/21/23 15:17 Plt Count 242 10^3/cmm (157-399) 09/21/23 15:17 MPV 9.4 fL (7.4-10.4) 09/21/23 15:17 Neut % (Auto) 61.3 % 09/21/23 15:17 Lymph % (Auto) 15.8 % 09/21/23 15:17 Blair % (Auto) 7.3 % 09/21/23 15:17 Eos % (Auto) 10.9 % 09/21/23 15:17 Baso % (Auto) 0.4 % 09/21/23 15:17 Neut # (Auto) 10.78 10^3/uL (1.8-7.7) H 09/21/23 15:17 Lymph # (Auto) 2.8 10^3/uL (0.8-4.8) 09/21/23 15:17 Blair # (Auto) 1.3 10^3/uL (0.2-0.9) H 09/21/23 15:17 Eos # (Auto) 1.9 10^3/uL (0.0-0.8) H 09/21/23 15:17 Baso # (Auto) 0.1 10^3/uL (0.0-0.1) 09/21/23 15:17 Nucleated RBC % (auto) 0 % 09/21/23 15:17 Nucleated RBCs # 0.0 /100WBC 09/21/23 15:17 Sodium 139 mmol/L (136-145) 09/21/23 15:17 Potassium 3.9 mmol/L (3.5-5.1) 09/21/23 15:17 Chloride 102 mmol/L (98-107) 09/21/23 15:17 Carbon Dioxide 24 mmol/L (22-29) 09/21/23 15:17 Anion Gap 16.9 (5-19) 09/21/23 15:17 BUN 13 mg/dL (6-20) 09/21/23 15:17 Creatinine 0.9 mg/dL (0.5-0.9) 09/21/23 15:17 GFR Calculation 64.1 mL/min (90-130) L 09/21/23 15:17 Glucose 127 mg/dL (65-115) H 09/21/23 15:17 Calculated Osmolality 290 mOsm/kg (285-295) 09/21/23 15:17 Calcium 9.1 mg/dL (8.5-10.5) 09/21/23 15:17 Total Bilirubin 0.2 mg/dL (0.15-1.2) 09/21/23 15:17 AST 11 U/L (0-32) 09/21/23 15:17 ALT 17 U/L (0-33) 09/21/23 15:17 Alkaline Phosphatase 123 U/L (35-105) H 09/21/23 15:17 Troponin T Baseline < 6 ng/L (0-10) 09/21/23 15:17 Troponin T 120 Minute 6.00 ng/L (0-10) 09/21/23 17:11 Delta Troponin T 0.55077 ABS# (0-10) 09/21/23 17:11 NT-Pro-B Natriuret Pep 45 pg/mL (0-125) 09/21/23 15:17 Total Protein 7.0 g/dL (6.6-8.7) 09/21/23 15:17 Albumin 4.2 g/dL (3.5-5.2) 09/21/23 15:17 Globulin 2.8 g/dL (1.3-4.6) 09/21/23 15:17 XR interpretation done by ED provider, pending radiology final review Discharge Plan Discharge Patient Disposition: Left Against Medical Advice Clinical Impression: Acute dyspnea Condition: Stable Prescriptions: No Action docusate sodium 250 mg capsule 250 mg PO BID Qty: 250 2RF meloxicam 7.5 mg tablet 7.5 mg PO BID PRN (Reason: Anxiety) Qty: 30 1RF (DME) walker with seat See Rx Instructions .Route .MEDSUPPLY Qty: 1 0RF Rx Instructions: As directed benztropine 1 mg tablet 1 mg PO DAILY@0730 Qty: 30 11RF nitrofurantoin monohyd/m-cryst [Macrobid] 100 mg capsule 100 mg PO BID Qty: 60 1RF Rx Instructions: must administer with a meal/food montelukast [Singulair] 10 mg tablet 10 mg PO QAM Qty: 90 1RF mirtazapine 45 mg tablet 45 mg PO BEDTIME Qty: 30 11RF Ativan 0.5 mg tablet 0.5 mg PO BID Qty: 60 5RF oxybutynin chloride 15 mg tablet extended release 24hr 15 mg PO BEDTIME Qty: 90 1RF tramadol 50 mg tablet 50 mg PO BID PRN (Reason: pain) 30 Days Qty: 60 3RF citalopram [Celexa] 40 mg tablet 40 mg PO QAM clozapine [Clozaril] 100 mg tablet 350 mg PO BEDTIME clozapine [Clozaril] 200 mg tablet 200 mg PO QAM atorvastatin 20 mg tablet 20 mg PO QAM gabapentin 300 mg capsule 300 mg PO BID acetaminophen 500 mg Tablet 500 - 1,000 mg PO Q6H PRN (Reason: Pain) dexlansoprazole 60 mg capsule,biphase delayed releas 60 mg PO DAILY baclofen 10 mg tablet 10 mg PO BID PRN (Reason: Pain) fluticasone propionate 50 mcg/actuation spray,suspension 1 spray intranasal BID doxycycline hyclate 100 mg tablet 100 mg PO BID 10 Days Qty: 20 0RF methylprednisolone [Medrol (Cedrick)] 4 mg tablets,dose pack See Rx Instructions .ROUTE .COMPLEX Qty: 21 0RF Rx Instructions: orally per package directions albuterol sulfate [ProAir HFA] 90 mcg/actuation HFA aerosol inhaler 2 puff inhalation Q4H PRN (Reason: shortness of breath or wheezing) Qty: 17 2RF budesonide-formoterol [Symbicort] 160-4.5 mcg/actuation HFA aerosol inhaler 2 puff inhalation BID Qty: 10.2 3RF Referrals: Evans Olvera MD [Primary Care Provider] - Coding Level of Care Code ED Warp Splitter for 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
[2023-09-21] MEDS: sodium chloride 0.9% 500 ML 999 ML IV (16:28)
[2023-09-21] MEDS: methylPREDNISolone sod succ 125 mg/2 mL INJ IV (16:31)
[2023-09-21 16:39] LABS: Alanine Aminotransferase 17 U/L (0-33); Albumin Level 4.2 g/dL (3.5-5.2); Alkaline Phosphatase 123 U/L (35-105); Anion Gap 16.9 (5-19); Aspartate Amino Transferase 11 U/L (0-32); Blood Urea Nitrogen 13 mg/dL (6-20); Calcium 9.1 mg/dL (8.5-10.5); Carbon Dioxide 24 mmol/L (22-29); Chloride 102 mmol/L (98-107); Creatinine Clr Calc Pharmacy 64.7109; Globulin 2.8 g/dL (1.3-4.6); Glomerular Filtration Rate 64.1 mL/min (90-130); Glucose 127 mg/dL (65-115); NT Pro B Type Natriuretic Pept 45 pg/mL (0-125); Osmolality Calculated 290 mOsm/kg (285-295); Potassium 3.9 mmol/L (3.5-5.1); Sodium 139 mmol/L (136-145); Total Bilirubin 0.2 mg/dL (0.15-1.2); Troponin(5th) Baseline < 6 ng/L (0-10)
[2023-09-21] MEDS: ipratropium-albuterol 3 mL Neb INHALATION (17:09)
[2023-09-21 17:14] VITALS: PULSE 86; RESP 16; O2SAT 96
[2023-09-21 17:16] VITALS: PULSE 88
[2023-09-21 17:39] LABS: Troponin 5 2HR Delta 0.00001 ABS# (0-10)
[2023-09-21 18:18] VITALS: BP 137/93; PULSE 99; O2SAT 94
[2023-09-21 19:42] LABS: Adenovirus Not Detected (NOT DETECT); Chlamydia Pneumoniae Not Detected (NOT DETECT); Coronavirus 229E,HKU1,NL63,OC4 Not Detected (NOT DETECT); Human Metapneumovirus Not Detected (NOT DETECT); Human Rhinovirus/Enterovirus Not Detected (NOT DETECT); Influenza A Not Detected (NOT DETECT); Influenza A H1 Not Detected (NOT DETECT); Influenza A H1-2009 Not Detected (NOT DETECT); Influenza A H3 Not Detected (NOT DETECT); Influenza B Not Detected (NOT DETECT); Mycoplasma Pneumoniae Not Detected (NOT DETECT); Parainfluenza Virus Type 1 Not Detected (NOT DETECT); Parainfluenza Virus Type 2 Not Detected (NOT DETECT); Parainfluenza Virus Type 3 Not Detected (NOT DETECT); Parainfluenza Virus Type 4 Not Detected (NOT DETECT); Respiratory Syncytial Virus A Not Detected (NOT DETECT); Respiratory Syncytial Virus B Not Detected (NOT DETECT); SARS-COV-2 Not Detected (NOT DETECT)
== END 2023-09-21 18:19 | disposition left against medical advice (07) ==
PROVIDERS: Emergency Provider Emergency Medicine; PCP Family Medicine Adult Medicine
DX: R06.00 Dyspnea, unspecified (principal); Z53.29 Procedure and treatment not carried out because of patient's decision for other reasons; J44.9 Chronic obstructive pulmonary disease, unspecified; E78.2 Mixed hyperlipidemia
CPT/HCPCS: 36415; 71045; 80053; 83880; 84484; 85025; 87486; 87581; 87633; 93005; 94640; 96374; 99285; J2930; J7040

== ENCOUNTER → 2023-10-02 14:18 | Outpatient (BNVA) | payer MEDICARE, OTHER, SELFPAY ==
[2023-02-06 10:08] VITALS: BP 132/88; BMI 31.9
== END ==
PROVIDERS: PCP Family Medicine Adult Medicine; Visit Provider Psychiatry & Neurology Psychiatry
DX: F20.89 Other schizophrenia (principal); Z79.899 Other long term (current) drug therapy
CPT/HCPCS: 85007; 85027

== ENCOUNTER 2023-10-04 22:06 | Emergency (ER) | payer MEDICARE, MEDICAID, SELFPAY ==
[2023-02-06 10:08] VITALS: BP 132/88; BMI 31.9
[2023-10-04 22:08] VITALS: BP 97/80; PULSE 92; RESP 20; TEMP 36.8; O2SAT 93; BMI 29.8
--- NOTE | 2023-10-04 22:13 | ECG_ITS ---
[facility] Test Date: 2023-10-04 Pat Name: Hilda Nolan Department: Room: Gender: Female Stem Sizer: : 1965 Requested By: Dominik Haque Order Number: [id number] Kimberly MD: Edwin You M.D. Measurements Intervals [place] Rate: 96 P: 54 AR: 151 QRS: 4 QRSD: 93 T: 47 QT: 351 QTc: 443 Interpretive Statements SINUS RHYTHM Compared to ECG 09/21/2023 15:35:52 Sinus tachycardia no longer present Electronically Signed On 10-05-2023 8:14:57 CDT by Edwin You M.D. [id number]
--- NOTE | 2023-10-04 22:15 | W.ED.CHESTPA ---
HPI - Chest Pain General: Chief Complaint: Chest Pain Stated Complaint: chest pain, abd pain Time Seen by Provider: 10/04/23 22:13 History of Present Illness: 58-year-old female comes in today with some midepigastric pain that radiated up into her chest. Patient came in by EMS. Patient was treated with 4 baby aspirin and Zofran and route. Patient is also taken a tramadol tablet at home. Patient reports resolution of pain in the emergency department. Patient has a history of COPD and fracture of the spine. Patient also has a history of mental health disorder. Patient appears nontoxic. Patient appears in no pain. 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 Uterine prolapse PMB (postmenopausal bleeding) Prediabetes Chronic bronchitis with COPD (chronic obstructive pulmonary disease) Mixed hyperlipidemia Psychiatric care Osteoarthritis (arthritis due to wear and tear of joints) Chronic pain disorder Right shoulder, bilateral lower extremities Obesity (BMI 30.0-34.9) GERD (gastroesophageal reflux disease) Other schizophrenia Surgical History Status post bilateral salpingo-oophorectomy (BSO) S/P laparoscopic assisted vaginal hysterectomy (LAVH) Family History Other CAD (coronary artery disease) Hypertension Social History Substance/Drug Use: never Do you think of yourself as: Straight/Heterosexual Female Reproductive History: Para: 2 Physical Exam Const: COMMON NORMALS: alert HENMT: COMMON NORMALS: normocephalic HEAD & SCALP: normocephalic Neck/C-Spine: COMMON NORMALS: full ROM Resp: COMMON NORMALS: normal respiratory effort and clear to auscultation bilaterally AUSCULTATION: clear to auscultation bilaterally Cardio: COMMON NORMALS: regular rate RATE: regular rate GI: COMMON NORMALS: Soft to palpation (Mild distention) PALPATION: Yes Soft to palpation (Mild distention) Extremity: COMMON NORMALS: no pedal edema Neuro: SENSORIUM/ORIENTATION: Yes alert Skin: COMMON NORMALS: turgor normal GENERAL SKIN EXAM: turgor normal Course Vital Signs: Vital signs: Vital Signs Temperature 98.3 F 10/04/23 22:08 Pulse Rate 98 10/04/23 22:59 Respiratory Rate 20 H 10/04/23 22:59 Blood Pressure 87/46 10/04/23 22:59 Pulse Oximetry 94 10/04/23 22:59 Oxygen Delivery Me thod Room Air 10/04/23 22:26 MDM - Chest Pain Medical Decision Making 58-year-old female comes in today with complaints of midepigastric pain radiating to the chest. Patient denies any fever chills or diarrhea or vomiting. Patient appears in no pain. Patient appears nontoxic. Abdomen soft with some mild distention. Bowel sounds are active. Lungs are clear to auscultation. Differential diagnosis includes but not limited to fracture, pneumonia, ACS, GERD, esophagitis, gastritis, pancreatitis. Patient reported significant improvement of her pain and discomfort and did not want to stay for further evaluation. EKG showed a normal sinus rhythm with no changes from prior exams and without any ST elevation or ectopy. Patient was discharged to home with need for follow-up or return to the ER. Troponin was negative and CBC and CMP were also negative. Patient refused x-rays. Lab Data 10/04/23 22:19 10/04/23 22:19 Laboratory Results WBC 10.09 10^3/uL (3.29-11.43) 10/04/23 22: RBC 4.13 10^6/uL (3.85-5.65) 10/04/23 22:19 Hgb 12.60 g/dL (11.27-16.99) 10/04/23 22: Hct 38.3 % (36-47) 10/04/23 22:19 MCV 92.7 fl (85-98) 10/04/23 22:19 MCH 30.5 pg (27-33) 10/04/23 22: MCHC 32.9 g/dL (30-55) 10/04/23 22:19 RDW 14.9 % (12.1-15.1) 10/04/23 22:19 Plt Count 287 10^3/cmm (157-399) 10/04/23 22:19 MPV 9.6 fL (7.4-10.4) 10/04/23 22:19 Neut % (Auto) 51.8 % 10/04/23 22:19 Lymph % (Auto) 27.5 % 10/04/23 22:19 [place]kean % (Auto) 8.7 % 10/04/23 22:19 Eos % (Auto) 11.0 % 10/04/23 22:19 Baso % (Auto) 0.4 % 10/04/23 22:19 Neut # (Auto) 5.23 10^3/uL (1.8-7.7) 10/04/23 22:19 Lymph # (Auto) 2.8 10^3/uL (0.8-4.8) 10/04/23 22:19 [place]kean # (Auto) 0.9 10^3/uL (0.2-0.9) 10/04/23 22:19 Eos # (Auto) 1.1 10^3/uL (0.0-0.8) H 10/04/23 22:19 Baso # (Auto) 0.0 10^3/uL (0.0-0.1) 10/04/23 22:19 Nucleated RBC % (auto) 0 % 10/04/23 22:19 Nucleated RBCs # 0.0 /100WBC 10/04/23 22:19 Sodium 140 mmol/L (136-145) 10/04/23 22:19 Potassium 4.3 mmol/L (3.5-5.1) 10/04/23 22:19 Chloride 102 mmol/L (98-107) 10/04/23 22:19 Carbon Dioxide 26 mmol/L (22-29) 10/04/23 22:19 Anion Gap 16.3 (5-19) 10/04/23 22:19 BUN 13 mg/dL (6-20) 10/04/23 22:19 Creatinine 0.6 mg/dL (0.5-0.9) 10/04/23 22:19 GFR Calculation 102.3 mL/min (90-130) 10/04/23 22:19 Glucose 119 mg/dL (65-115) H 10/04/23 22:19 Calculated Osmolality 291 mOsm/kg (285-295) 10/04/23 22:19 Calcium 9.1 mg/dL (8.5-10.5) 10/04/23 22:19 Total Bilirubin 0.2 mg/dL (0.15-1.2) 10/04/23 22:19 AST 22 U/L (0-32) 10/04/23 22:19 ALT 26 U/L (0-33) 10/04/23 22:19 Alkaline Phosphatase 137 U/L (35-105) H 10/04/23 22:19 Troponin T Baseline 7 ng/L (0-10) 10/04/23 22:19 Total Protein 6.7 g/dL (6.6-8.7) 10/04/23 22:19 Albumin 4.0 g/dL (3.5-5.2) 10/04/23 22:19 Globulin 2.7 g/dL (1.3-4.6) 10/04/23 22:19 Lipase 55 U/L (13-60) 10/04/23 22:19 No radiology studies performed this visit Discharge Plan Discharge Patient Disposition: Home Clinical Impression: Chest pain Qualifiers: Chest pain type: unspecified Qualified Code(s): R07.9 - Chest pain, unspecified Condition: Stable Prescriptions: No Action docusate sodium 250 mg capsule 250 mg PO BID Qty: 250 2RF meloxicam 7.5 mg tablet 7.5 mg PO BID PRN (Reason: Anxiety) Qty: 30 1RF (DME) walker with seat See Rx Instructions .Route .MEDSUPPLY Qty: 1 0RF Rx Instructions: As directed nitrofurantoin monohyd/m-cryst [Macrobid] 100 mg capsule 100 mg PO BID Qty: 60 1RF Rx Instructions: must administer with a meal/food montelukast [Singulair] 10 mg tablet 10 mg PO QAM Qty: 90 1RF clozapine [Clozaril] 100 mg tablet 350 mg PO BEDTIME Qty: 135 11RF benztropine 1 mg tablet 1 mg PO DAILY@0730 Qty: 30 11RF clozapine [Clozaril] 200 mg tablet 200 mg PO QAM Qty: 30 11RF mirtazapine 45 mg tablet 45 mg PO BEDTIME Qty: 30 11RF Ativan 0.5 mg tablet 0.5 mg PO BID Qty: 60 5RF oxybutynin chloride 15 mg tablet extended release 24hr 15 mg PO BEDTIME Qty: 90 1RF tramadol 50 mg tablet 50 mg PO BID PRN (Reason: pain) 30 Days Qty: 60 3RF citalopram [Celexa] 40 mg tablet 40 mg PO QAM Qty: 30 11RF atorvastatin 20 mg tablet 20 mg PO QAM gabapentin 300 mg capsule 300 mg PO BID acetaminophen 500 mg Tablet 500 - 1,000 mg PO Q6H PRN (Reason: Pain) dexlansoprazole 60 mg capsule,biphase delayed releas 60 mg PO DAILY baclofen 10 mg tablet 10 mg PO BID PRN (Reason: Pain) fluticasone propionate 50 mcg/actuation spray,suspension 1 spray intranasal BID methylprednisolone [Medrol (Cedrick)] 4 mg tablets,dose pack See Rx Instructions .ROUTE .COMPLEX Qty: 21 0RF Rx Instructions: orally per package directions albuterol sulfate [ProAir HFA] 90 mcg/actuation HFA aerosol inhaler 2 puff inhalation Q4H PRN (Reason: shortness of breath or wheezing) Qty: 17 2RF budesonide-formoterol [Symbicort] 160-4.5 mcg/actuation HFA aerosol inhaler 2 puff inhalation BID Qty: 10.2 3RF Discharge Orders: Discharge ED (Routine); Ordered 10/04/23 Ordered By: Dominik Oconnor Referrals: Evans Olvera MD [Primary Care Provider] - Discharge Diet: Usual diet Discharge Activity: Increase activity as tolerated Patient Instructions: Chest Pain (ED) Activity Restrictions/Additional Instructions: Follow-up with primary care. Coding Level of Care Code ED Community Health Program Representative for 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
[2023-10-04 22:26] VITALS: BP 97/80; PULSE 95; RESP 20; O2SAT 93
[2023-10-04 22:30] LABS: Basophils % 0.4 %; Eosinophils # 1.1 10^3/uL (0.0-0.8); Hematocrit 38.3 % (36-47); Lymphocytes # 2.8 10^3/uL (0.8-4.8); Lymphocytes % 27.5 %; Mean Corpuscular HGB Conc 32.9 g/dL (30-55); Mean Corpuscular Hemoglobin 30.5 pg (27-33); Mean Corpuscular Volume 92.7 fl (85-98); Mean Platelet Volume 9.6 fL (7.4-10.4); Monocytes # 0.9 10^3/uL (0.2-0.9); Monocytes % 8.7 %; Neutrophils # 5.23 10^3/uL (1.8-7.7); Neutrophils % 51.8 %; Nucleated Red Blood Cells % 0 %; Platelet Count 287 10^3/cmm (157-399); Red Blood Count 4.13 10^6/uL (3.85-5.65); Red Cell Distribution Width 14.9 % (12.1-15.1); White Blood Count 10.09 10^3/uL (3.29-11.43)
[2023-10-04 22:49] LABS: Troponin(5th) Baseline 7 ng/L (0-10)
--- NOTE | 2023-10-04 22:58 | PC.NURSE ---
Patient requested to leave. Elvin informed of this and was aware. Advised he was going to discharge her. Blood pressure noted to be low with discharge. Patient is aware and says it does that and states she still wants to leave.
[2023-10-04 22:59] VITALS: BP 87/46; PULSE 98; RESP 20; O2SAT 94
[2023-10-04 23:10] LABS: Alanine Aminotransferase 26 U/L (0-33); Alkaline Phosphatase 137 U/L (35-105); Anion Gap 16.3 (5-19); Aspartate Amino Transferase 22 U/L (0-32); Blood Urea Nitrogen 13 mg/dL (6-20); Calcium 9.1 mg/dL (8.5-10.5); Carbon Dioxide 26 mmol/L (22-29); Chloride 102 mmol/L (98-107); Creatinine Clr Calc Pharmacy 95.0423; Globulin 2.7 g/dL (1.3-4.6); Glomerular Filtration Rate 102.3 mL/min (90-130); Glucose 119 mg/dL (65-115); Lipase 55 U/L (13-60); Osmolality Calculated 291 mOsm/kg (285-295); Potassium 4.3 mmol/L (3.5-5.1); Sodium 140 mmol/L (136-145); Total Bilirubin 0.2 mg/dL (0.15-1.2); Total Protein 6.7 g/dL (6.6-8.7)
== END 2023-10-04 22:59 | disposition home or self-care (01) ==
PROVIDERS: Emergency Provider Nurse Practitioner Family; PCP Family Medicine Adult Medicine
DX: R07.9 Chest pain, unspecified (principal); J44.9 Chronic obstructive pulmonary disease, unspecified; E78.2 Mixed hyperlipidemia
CPT/HCPCS: 80053; 83690; 84484; 85025; 93005; 99284

== ENCOUNTER 2023-10-14 12:51 | Emergency (ER) | payer MEDICARE, MEDICAID, SELFPAY ==
[2023-02-06 10:08] VITALS: BP 132/88; BMI 31.9
[2023-10-14 13:09] VITALS: BP 177/77; PULSE 93; RESP 18; TEMP 36.6; O2SAT 95; BMI 31.6
--- NOTE | 2023-10-14 13:14 | ED_ITS ---
HPI - Back Pain/Injury General: Chief Complaint: Back Pain/Injury Stated Complaint: BACK PAIN Time Seen by Provider: 10/14/23 13:14 History of Present Illness: 58-year-old female comes in today for co mplaints of low back pain. Patient reports increased pain over the last 2 to 3 days. Patient has a history of compression fractures to her lumbar spine approximately 1 year ago in October. Patient is concerned that they may have worsened or she has a new fracture. Patient denies any falls but did states she almost fell. Patient also reports some increased urinary frequency and some anxiety. Patient did ask for a dose of lorazepam for her anxiety. 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 Uterine prolapse PMB (postmenopausal bleeding) Prediabetes Chronic bronchitis with COPD (chronic obstructive pulmonary disease) Mixed hyperlipidemia Psychiatric care Osteoarthritis (arthritis due to wear and tear of joints) Chronic pain disorder Right shoulder, bilateral lower extremities Obesity (BMI 30.0-34.9) GERD (gastroesophageal reflux disease) Other schizophrenia Surgical History Status post bilateral salpingo-oophorectomy (BSO) S/P laparoscopic assisted vaginal hysterectomy (LAVH) Family History Other CAD (coronary artery disease) Hypertension Social History Substance/Drug Use: never Do you think of yourself as: Straight/Heterosexual Female Reproductive History: Para: 2 Physical Exam Const: COMMON NORMALS: alert HENMT: COMMON NORMALS: normocephalic HEAD & SCALP: normocephalic Neck/C-Spine: COMMON NORMALS: full ROM Resp: COMMON NORMALS: normal respiratory effort Cardio: COMMON NORMALS: regular rate RATE: regular rate GI: COMMON NORMALS: non-tender : COMMON NORMALS: Yes no CVA tenderness BLADDER/KIDNEY EXAM: Yes no CVA tenderness Back/Pelvis: COMMON NORMALS: no CVA tenderness LUMBAR SPINE/LOWER BACK: No lumbar spinal tenderness and Yes paraspinal muscle tenderness Extremity: COMMON NORMALS: full ROM Neuro: SENSORIUM/ORIENTATION: Yes alert Skin: COMMON NORMALS: turgor normal GENERAL SKIN EXAM: turgor normal Course Vital Signs: Vital signs: Vital Signs Temperature 97.9 F 10/14/23 15:23 Pulse Rate 93 10/14/23 15:23 Respiratory Rate 18 10/14/23 15:23 Blood Pressure 177/77 10/14/23 15:23 Pulse Oximetry 95 10/14/23 15:23 Oxygen Delivery Me thod Room Air 10/14/23 13:09 MDM - Back Pain/Injury Medical Decision Making 58-year-old female comes in today with low back pain, urinary frequency, and some increased anxiety. Patient appears nontoxic. Patient moves all extremities well. Patient has muscle tenderness on palpation of the lumbar spine. Vital signs are normal except for some elevated blood pressure 177 systolic. Differential diagnosis includes intervertebral disc disease, facet arthritis, lumbar strain, urinary tract infection, malingering. X-ray noted no new fractures or abnormality to the spine. Urinalysis did not note any signs of infection. Patient was given a 0.5 mg of lorazepam for her anxiety. Patient was reassured and discharged home with recommendations for further treatment and follow-up. Labs Radiology Impressions Lumbar Spine X-Ray 10/14/23 13:55 IMPRESSION: 1. There are degenerative changes as described above. No evidence for acute fracture. 2. There are minimal anterior compression deformities of the T11, T12, and L4 superior endplates which appears similar to the prior radiographs dated 09/09/2023. 3. 3.Colonic constipation is present. Laboratory Results Urine Color Straw (Yellow) 10/14/23 14:01 Urine Appearance Clear (CLEAR) 10/14/23 14:01 Urine pH 6 (5-7) 10/14/23 14:01 Ur Specific Lamar 1.005 (1.005-1.030) 10/14/23 14:01 Urine Protein Neg (Negative) 10/14/23 14:01 Urine Glucose (UA) Norm (Normal) 10/14/23 14:01 Urine Ketones Negative (Negative) 10/14/23 14:01 Urine Blood Neg (Negative) 10/14/23 14:01 Urine Nitrate Negative (Negative) 10/14/23 14:01 Urine Bilirubin Neg (Negative) 10/14/23 14:01 Urine Urobilinogen Norm mg/dL (Negative) 10/14/23 14:01 Ur Leukocyte Esterase Negative (Negative) 10/14/23 14:01 Urine Opiates Screen Negative ng/mL (Negative) 10/14/23 14:01 Ur Barbiturates Screen Negative ng/mL (Negative) 10/14/23 14:01 Ur Phencyclidine Scrn Negative ng/mL (Negative) 10/14/23 14:01 Ur Amphetamines Screen Negative ng/mL (Negative) 10/14/23 14:01 U Benzodiazepines Scrn Negative ng/mL (Negative) 10/14/23 14:01 Urine Cocaine Screen Negative ng/mL (Negative) 10/14/23 14:01 U Marijuana (THC) Screen Negative ng/mL (Negative) 10/14/23 14:01 All radiology interpretation(s) finalized by discharge Discharge Plan Discharge Patient Disposition: Home Clinical Impression: Anxiety about health Back pain Qualifiers: Back pain location: low back pain Chronicity: chronic Back pain laterality: unspecified Sciatica presence: without sciatica Qualified Code(s): M54.50 - Low back pain, unspecified Constipation Qualifiers: Constipation type: unspecified constipation type Qualified Code(s): K59.00 - Constipation, unspecified Condition: Stable Prescriptions: No Action docusate sodium 250 mg capsule 250 mg PO BID Qty: 250 2RF meloxicam 7.5 mg tablet 7.5 mg PO BID PRN (Reason: Anxiety) Qty: 30 1RF (DME) walker with seat See Rx Instructions .Route .MEDSUPPLY Qty: 1 0RF Rx Instructions: As directed nitrofurantoin monohyd/m-cryst [Macrobid] 100 mg capsule 100 mg PO BID Qty: 60 1RF Rx Instructions: must administer with a meal/food montelukast [Singulair] 10 mg tablet 10 mg PO QAM Qty: 90 1RF clozapine [Clozaril] 100 mg tablet 350 mg PO BEDTIME Qty: 135 11RF benztropine 1 mg tablet 1 mg PO DAILY@0730 Qty: 30 11RF clozapine [Clozaril] 200 mg tablet 200 mg PO QAM Qty: 30 11RF mirtazapine 45 mg tablet 45 mg PO BEDTIME Qty: 30 11RF Ativan 0.5 mg tablet 0.5 mg PO BID Qty: 60 5RF oxybutynin chloride 15 mg tablet extended release 24hr 15 mg PO BEDTIME Qty: 90 1RF tramadol 50 mg tablet 50 mg PO BID PRN (Reason: pain) 30 Days Qty: 60 3RF citalopram [Celexa] 40 mg tablet 40 mg PO QAM Qty: 30 11RF atorvastatin 20 mg tablet 20 mg PO QAM gabapentin 300 mg capsule 300 mg PO BID acetaminophen 500 mg Tablet 500 - 1,000 mg PO Q6H PRN (Reason: Pain) dexlansoprazole 60 mg capsule,biphase delayed releas 60 mg PO DAILY baclofen 10 mg tablet 10 mg PO BID PRN (Reason: Pain) fluticasone propionate 50 mcg/actuation spray,suspension 1 spray intranasal BID methylprednisolone [Medrol (Cedrick)] 4 mg tablets,dose pack See Rx Instructions .ROUTE .COMPLEX Qty: 21 0RF Rx Instructions: orally per package directions albuterol sulfate [ProAir HFA] 90 mcg/actuation HFA aerosol inhaler 2 puff inhalation Q4H PRN (Reason: shortness of breath or wheezing) Qty: 17 2RF budesonide-formoterol [Symbicort] 160-4.5 mcg/actuation HFA aerosol inhaler 2 puff inhalation BID Qty: 10.2 3RF Discharge Orders: Discharge ED (Routine); Ordered 10/14/23 Ordered By: Dominik Oconnor Referrals: Evans Olvera MD [Primary Care Provider] - Discharge Diet: Usual diet Discharge Activity: Increase activity as tolerated Patient Instructions: Back Pain (ED) Activity Restrictions/Additional Instructions: Home and rest. Continue with routine medications as directed. Follow-up with primary care for refills of medication or new concerns. Return to ED for worsening symptoms such as fever greater than 100.4, blood in vomit or stool, or new concerns. Coding Level of Care Code ED Supervisor Color Making for 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
--- NOTE | 2023-10-14 13:55 | XRR_ITS ---
PROCEDURE INFORMATION: Exam: XR Lumbosacral Spine Exam date and time: 10/14/2023 2:22 PM Age: 58 years old Clinical indication: Low back pain, HX of fracture TECHNIQUE: Imaging protocol: Radiologic exam of the lumbosacral spine. Views: 2 or 3 views. COMPARISON: CR (PELVIS, ) 09/09/2023 1:11 PM. Comparison is made to lumbar radiographs dated 09/09/[address] scan of the abdomen and pelvis dated 11/11/2020. FINDINGS: Bones/joints: There are degenerative changes throughout the visualized spine including marginal osteophyte formations, endplate degenerative changes, and facet arthropathy. Multilevel disc space narrowing. There are minimal anterior compression deformities of the T11, T12, and L4 superior endplates which appears similar to the prior radiographs dated 09/09/2023. No evidence for acute fracture. Soft tissues: Unremarkable. Gastrointestinal tract: Colonic constipation is present. XR/XR lumbar spine 2-3V* [id number] IMPRESSION: 1. There are degenerative changes as described above. No evidence for acute fracture. 2. There are minimal anterior compression deformities of the T11, T12, and L4 superior endplates which appears similar to the prior radiographs dated 09/09/2023. 3. 3.Colonic constipation is present.
[2023-10-14 14:10] LABS: Add Urine Microscopic? NO; Charge for UA Resulting for Rev
[2023-10-14] MEDS: LORazepam 0.5 mg Tablet PO (14:10)
[2023-10-14 14:13] LABS: Bilirubin Urine Neg (Negative); Blood Urine Neg (Negative); Glucose Urine UA Norm (Normal); Ketones Urine Negative (Negative); Leukocyte Esterase Urine Negative (Negative); Nitrate Urine Negative (Negative); Protein Urine Neg (Negative); Specific Gravity, Urine 1.005 (1.005-1.030); Urine Appearance Clear (CLEAR); Urine Color Straw (Yellow); Urobilinogen Urine Norm (Negative); pH Urine 6 (5-7)
[2023-10-14 14:22] LABS: Amphetamines Screen Urine Negative (Negative); Barbiturates Screen Urine Negative (Negative); Benzodiazepines Screen Urine Negative (Negative); Cocaine Screen Urine Negative (Negative); Opiate Screen Urine Negative (Negative); PCP Screen Urine Negative (Negative); THC Screen Urine Negative (Negative)
[2023-10-14 15:23] VITALS: BP 177/77; PULSE 93; RESP 18; TEMP 36.6; O2SAT 95
== END 2023-10-14 15:38 | disposition home or self-care (01) ==
PROVIDERS: Internal Medicine; Emergency Provider Nurse Practitioner Family; PCP Family Medicine Adult Medicine
DX: M54.50 Low back pain, unspecified (principal); K59.00 Constipation, unspecified; F41.9 Anxiety disorder, unspecified; J44.9 Chronic obstructive pulmonary disease, unspecified; E78.2 Mixed hyperlipidemia
CPT/HCPCS: 72100; 80306; 81003; 99284

== ENCOUNTER 2023-10-16 19:00 | Emergency (ER) | payer MEDICARE, MEDICAID, SELFPAY ==
[2023-02-06 10:08] VITALS: BP 132/88; BMI 31.9
[2023-10-16 19:03] VITALS: BP 119/80; PULSE 101; RESP 16; TEMP 36.6; O2SAT 95
[2023-10-16] MEDS: ketorolac 30 mg/mL INJ IM (19:22)
--- NOTE | 2023-10-16 19:24 | W.ED.PSYCHS ---
HPI - Psych General: Chief Complaint: Psychiatric Symptoms Stated Complaint: MHE Time Seen by Provider: 10/16/23 19:12 Source: patient Mode of arrival: ambulatory Limitations: no limitations History of Present Illness: 58-year-old female is very well-known to the ER states she been having back pain over the last week she does have a history of chronic back pain she was seen here Sunday and had x-rays normal states she is had continued pain its mainly on the left side worse with movement and walking. States she also does have depression but she denies being suicidal or homicidal she states she does see [facility]. Associated symptoms: Reports depression; Deny homicidal ideation or suicidal ideation Review of Systems Const: Denies: fever(s), chills, body aches or change in appetite ENMT: Denies: throat pain or dental pain Card: Denies: chest pain Resp: Denies: dyspnea GI: Denies: abdominal pain, nausea, vomiting or diarrhea Musc: Reports: back pain; Denies: neck pain Skin/Breast: Denies: rash Neuro: Denies: headache(s) Psych: Reports: depression; Denies: suicidal ideation or homicidal ideation [facility] ED PFSH: Medical History (Updated 10/16/23 @ 19:20 by Kade Smith MD) UTI (urinary tract infection) Acute bronchitis with COPD Hypoxemia COPD exacerbation Pain management contract agreement Falls frequently Tremor 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, severe, 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 Uterine prolapse PMB (postmenopausal bleeding) Prediabetes Chronic bronchitis with COPD (chronic obstructive pulmonary disease) Mixed hyperlipidemia Psychiatric care Osteoarthritis (arthritis due to wear and tear of joints) Chronic pain disorder Right shoulder, bilateral lower extremities Obesity (BMI 30.0-34.9) GERD (gastroesophageal reflux disease) Other schizophrenia Surgical History Status post bilateral salpingo-oophorectomy (BSO) S/P laparoscopic assisted vaginal hysterectomy (LAVH) Family History Other CAD (coronary artery disease) Hypertension Social History Substance/Drug Use: never Do you think of yourself as: Straight/Heterosexual Female Reproductive History: Para: 2 Physical Exam Const: COMMON NORMALS: no acute distress, patient oriented x3 and healthy appearing HENMT: COMMON NORMALS: normocephalic and atraumatic HEAD & SCALP: normocephalic and atraumatic Eye: COMMON NORMALS: conjunctivae normal CONJUNCTIVA: Yes conjunctivae normal Neck/C-Spine: COMMON NORMALS: full ROM and supple Chest: COMMONS NORMALS: normal inspection of the chest Resp: COMMON NORMALS: normal respiratory effort Cardio: COMMON NORMALS: regular rate, regular rhythm and No murmurs present (Cardio) RATE: regular rate RHYTHM: regular rhythm Back/Pelvis: OTHER: Tenderness over left lower lumbar region no midline tenderness noted no saddle anesthesia Extremity: COMMON NORMALS: normal to inspection and full ROM Neuro: COMMON NORMALS: patient oriented x3, moves all extremities and no focal motor deficits Psych: COMMON NORMALS: mental status grossly normal, Normal thought process present and cooperative THOUGHT PROCESS: Normal thought process present THOUGHT CONTENT: No Suicidality present and No Homicidality present Skin: COMMON NORMALS: no rashes or lesions noted and no wounds GENERAL SKIN EXAM: no rashes or lesions noted Course Vital Signs: Vital signs: Vital Signs Temperature 97.9 F 10/16/23 19:03 Pulse Rate 101 H 10/16/23 19:03 Respiratory Rate 16 10/16/23 19:03 Blood Pressure 119/80 10/16/23 19:03 Pulse Oximetry 95 10/16/23 19:03 Oxygen Delivery Me thod Room Air 10/16/23 19:03 MDM - Psych Medical Decision Making Patient presents here with low back pain she also has depression. She has a history of chronic back pain she has no signs of cord compression or epidural abscess patient's not suicidal or homicidal did speak to her about psychiatric admission she states she does not feel like she needs admitted I did inform her about the crisis stabilization unit she also follows with [facility] and is to follow-up with them as well. Medical Records I reviewed the patient's medical records. No radiology studies performed this visit Discharge Plan Discharge Patient Disposition: Home Clinical Impression: Back pain, Depression Condition: Stable Prescriptions: New methocarbamol 750 mg tablet 750 mg PO Q6H PRN (Reason: spasms) Qty: 20 0RF Naprosyn 500 mg tablet 500 mg PO BID PRN (Reason: pain) Qty: 20 0RF No Action docusate sodium 250 mg capsule 250 mg PO BID Qty: 250 2RF meloxicam 7.5 mg tablet 7.5 mg PO BID PRN (Reason: Anxiety) Qty: 30 1RF (DME) walker with seat See Rx Instructions .Route .MEDSUPPLY Qty: 1 0RF Rx Instructions: As directed nitrofurantoin monohyd/m-cryst [Macrobid] 100 mg capsule 100 mg PO BID Qty: 60 1RF Rx Instructions: must administer with a meal/food montelukast [Singulair] 10 mg tablet 10 mg PO QAM Qty: 90 1RF clozapine [Clozaril] 100 mg tablet 350 mg PO BEDTIME Qty: 135 11RF benztropine 1 mg tablet 1 mg PO DAILY@0730 Qty: 30 11RF clozapine [Clozaril] 200 mg tablet 200 mg PO QAM Qty: 30 11RF mirtazapine 45 mg tablet 45 mg PO BEDTIME Qty: 30 11RF Ativan 0.5 mg tablet 0.5 mg PO BID Qty: 60 5RF oxybutynin chloride 15 mg tablet extended release 24hr 15 mg PO BEDTIME Qty: 90 1RF tramadol 50 mg tablet 50 mg PO BID PRN (Reason: pain) 30 Days Qty: 60 3RF citalopram [Celexa] 40 mg tablet 40 mg PO QAM Qty: 30 11RF atorvastatin 20 mg tablet 20 mg PO QAM gabapentin 300 mg capsule 300 mg PO BID acetaminophen 500 mg Tablet 500 - 1,000 mg PO Q6H PRN (Reason: Pain) dexlansoprazole 60 mg capsule,biphase delayed releas 60 mg PO DAILY baclofen 10 mg tablet 10 mg PO BID PRN (Reason: Pain) fluticasone propionate 50 mcg/actuation spray,suspension 1 spray intranasal BID methylprednisolone [Medrol (Cedrick)] 4 mg tablets,dose pack See Rx Instructions .ROUTE .COMPLEX Qty: 21 0RF Rx Instructions: orally per package directions albuterol sulfate [ProAir HFA] 90 mcg/actuation HFA aerosol inhaler 2 puff inhalation Q4H PRN (Reason: shortness of breath or wheezing) Qty: 17 2RF budesonide-formoterol [Symbicort] 160-4.5 mcg/actuation HFA aerosol inhaler 2 puff inhalation BID Qty: 10.2 3RF Discharge Orders: Discharge ED (Routine); Ordered 10/16/23 Ordered By: Kade Smith Referrals: Evans Olvera MD [Primary Care Provider] - 1-3 days Discharge Diet: Advance as tolerated Discharge Activity: Resume usual activity Patient Instructions: Depression (ED), Back Pain (ED) Coding Level of Care Code ED Ad Trafficker for 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
[2023-10-16] MEDS: dexamethasone 10 mg/mL INJ IM (19:25)
== END 2023-10-16 19:47 | disposition home or self-care (01) ==
PROVIDERS: Emergency Provider Emergency Medicine; PCP Family Medicine Adult Medicine
DX: M54.50 Low back pain, unspecified (principal); F32.A Depression, unspecified; J44.9 Chronic obstructive pulmonary disease, unspecified; E78.2 Mixed hyperlipidemia
CPT/HCPCS: 96372; 99284; J1100; J1885

== ENCOUNTER 2023-10-20 15:25 | Emergency (ER) | payer MEDICARE, MEDICAID, SELFPAY ==
[2023-02-06 10:08] VITALS: BP 132/88; BMI 31.9
[2023-10-20 15:25] VITALS: BP 111/78; PULSE 109; RESP 18; TEMP 37.1; O2SAT 96
--- NOTE | 2023-10-20 15:56 | W.ED.PSYCHS ---
HPI - Psych General: Chief Complaint: Psychiatric Symptoms Stated Complaint: ANXIETY; DEPRESSION Time Seen by Provider: 10/20/23 15:30 History of Present Illness: Patient presents to the ER with multiple general complaints patient is told at least 3 different people in the ER 3 different stories. She tells me that she has anxiety and depression and is on multiple medicines for these. Patient says she is been on these medicines for about the last 8 years with no changes. She says over the last 3 months or so she has been going downhill and think she needs medication changes. She sees someone with [facility] within the last month but he made no changes. Patient also states she had an appointment coming up with him on the second of next month which is in the proximal 3 days. Patient states she is on pain medicine and chronic pain. As well as feels foggy and slowed mentally. Patient states no other complaints to me at this time. 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 Uterine prolapse Prediabetes Chronic bronchitis with COPD (chronic obstructive pulmonary disease) Mixed hyperlipidemia Psychiatric care Osteoarthritis (arthritis due to wear and tear of joints) Chronic pain disorder Right shoulder, bilateral lower extremities Obesity (BMI 30.0-34.9) GERD (gastroesophageal reflux disease) Surgical History Status post bilateral salpingo-oophorectomy (BSO) S/P laparoscopic assisted vaginal hysterectomy (LAVH) Family History Other CAD (coronary artery disease) Hypertension Social History Substance/Drug Use: never Do you think of yourself as: Straight/Heterosexual Female Reproductive History: Para: 2 Physical Exam Const: COMMON NORMALS: no acute distress, average body habitus, patient oriented x3, no limitations, healthy appearing, alert and well nourished HENMT: COMMON NORMALS: normocephalic, atraumatic, hearing grossly normal bilaterally, external ears normal, Normal external nose present, moist oral mucous membranes and oropharynx normal HEAD & SCALP: normocephalic and atraumatic NOSE: Normal external nose present EXTERNAL EAR: Yes external ears normal Eye: COMMON NORMALS: Equal, round and reactive pupils present, EOMs intact bilaterally, conjunctivae normal and no scleral icterus CONJUNCTIVA: Yes conjunctivae normal PUPIL: Yes Equal, round and reactive pupils present Neck/C-Spine: COMMON NORMALS: full ROM, no lymphadenopathy, supple, no meningeal signs, no JVD and Thyroid normal THYROID: Thyroid normal Lymph: LYMPHATIC: no lymphadenopathy noted Chest: COMMONS NORMALS: normal inspection of the chest and normal palpation of entire chest wall Resp: COMMON NORMALS: normal respiratory effort, No retractions, No use of accessory muscles and clear to auscultation bilaterally AUSCULTATION: clear to auscultation bilaterally Cardio: COMMON NORMALS: no JVD, regular rate, regular rhythm, S1 normal heart sound present, S2 normal heart sound present, No gallops present (Cardio), No clicks present (Cardio), No murmurs present (Cardio) and No rub (Cardio) RATE: regular rate RHYTHM: regular rhythm HEART SOUNDS: S1 normal heart sound present and S2 normal heart sound present GI: COMMON NORMALS: Normal to inspection, nondistended, normoactive bowel sounds present, Soft to palpation, non-tender, No hepatosplenomegaly present and no masses PALPATION: Yes Soft to palpation and Yes No hepatosplenomegaly present Neuro: COMMON NORMALS: patient oriented x3 SENSORIUM/ORIENTATION: Yes alert MENINGEAL SIGNS: Yes no meningeal signs Course Vital Signs: Vital signs: Vital Signs Temperature 98.7 F 10/20/23 15:25 Pulse Rate 109 H 10/20/23 15:25 Respiratory Rate 18 10/20/23 15:25 Blood Pressure 111/78 10/20/23 15:25 Pulse Oximetry 96 10/20/23 15:25 Oxygen Delivery Me thod Room Air 10/20/23 15:25 MDM - Psych Medical Decision Making Physical exam was performed lab work was obtained med occasions was reviewed. The only ones that we will change we will increase her Cogentin and her Neurontin as these may help her with her side effects and chronic pain. Patient is to follow-up with her person she sees a [facility] on 10/22 and tell him of these changes. Lab Data 10/20/23 15:49 10/20/23 15:49 Laboratory Results WBC 12.63 10^3/uL (3.29-11.43) H 10/20/23 15:49 RBC 4.16 10^6/uL (3.85-5.65) 10/20/23 15:49 Hgb 12.50 g/dL (11.27-16.99) 10/20/23 15:49 Hct 38.0 % (36-47) 10/20/23 15:49 MCV 91.3 fl (85-98) 10/20/23 15:49 MCH 30.0 pg (27-33) 10/20/23 15:49 MCHC 32.9 g/dL (30-55) 10/20/23 15:49 RDW 14.5 % (12.1-15.1) 10/20/23 15:49 Plt Count 279 10^3/cmm (157-399) 10/20/23 15:49 MPV 9.4 fL (7.4-10.4) 10/20/23 15:49 Neut % (Auto) 69.9 % 10/20/23 15:49 Lymph % (Auto) 19.8 % 10/20/23 15:49 Casey % (Auto) 7.8 % 10/20/23 15:49 Eos % (Auto) 1.7 % 10/20/23 15:49 Baso % (Auto) 0.4 % 10/20/23 15:49 Neut # (Auto) 8.83 10^3/uL (1.8-7.7) H 10/20/23 15:49 Lymph # (Auto) 2.5 10^3/uL (0.8-4.8) 10/20/23 15:49 Casey # (Auto) 1.0 10^3/uL (0.2-0.9) H 10/20/23 15:49 Eos # (Auto) 0.2 10^3/uL (0.0-0.8) 10/20/23 15:49 Baso # (Auto) 0.1 10^3/uL (0.0-0.1) 10/20/23 15:49 Nucleated RBC % (auto) 0 % 10/20/23 15:49 Nucleated RBCs # 0.0 /100WBC 10/20/23 15:49 Sodium 134 mmol/L (136-145) L 10/20/23 15:49 Potassium 4.2 mmol/L (3.5-5.1) 10/20/23 15:49 Chloride 101 mmol/L (98-107) 10/20/23 15:49 Carbon Dioxide 22 mmol/L (22-29) 10/20/23 15:49 Anion Gap 15.2 (5-19) 10/20/23 15:49 BUN 17 mg/dL (6-20) 10/20/23 15:49 Creatinine 0.7 mg/dL (0.5-0.9) 10/20/23 15:49 GFR Calculation 85.6 mL/min (90-130) L 10/20/23 15:49 Glucose 142 mg/dL (65-115) H 10/20/23 15:49 Calculated Osmolality 282 mOsm/kg (285-295) L 10/20/23 15:49 Calcium 8.6 mg/dL (8.5-10.5) 10/20/23 15:49 Total Bilirubin 0.2 mg/dL (0.15-1.2) 10/20/23 15:49 AST 14 U/L (0-32) 10/20/23 15:49 ALT 19 U/L (0-33) 10/20/23 15:49 Alkaline Phosphatase 121 U/L (35-105) H 10/20/23 15:49 Total Protein 6.7 g/dL (6.6-8.7) 10/20/23 15:49 Albumin 3.9 g/dL (3.5-5.2) 10/20/23 15:49 Globulin 2.8 g/dL (1.3-4.6) 10/20/23 15:49 Salicylates < 0.3 mg/dL (3-10) L 10/20/23 15:49 Acetaminophen < 5.0 ug/mL (10-30) L 10/20/23 15:49 Ethyl Alcohol < 10 mg/dL (0-10) 10/20/23 15:49 No radiology studies performed this visit Discharge Plan Discharge Patient Disposition: Home Clinical Impression: Chronic pain disorder, Anxiety about health Depression Qualifiers: Depression Type: unspecified Qualified Code(s): F32.A - Depression, unspecified Condition: Stable Prescriptions: New benztropine 1 mg tablet 1 mg PO BID Qty: 30 0RF gabapentin 300 mg capsule 300 mg PO Q8H Qty: 30 0RF Discontinued benztropine 1 mg tablet 1 mg PO DAILY@0730 Qty: 30 11RF gabapentin 300 mg capsule 300 mg PO BID No Action docusate sodium 250 mg capsule 250 mg PO BID Qty: 250 2RF (DME) walker with seat See Rx Instructions .Route .MEDSUPPLY Qty: 1 0RF Rx Instructions: As directed montelukast [Singulair] 10 mg tablet 10 mg PO QAM Qty: 90 1RF clozapine [Clozaril] 100 mg tablet 350 mg PO BEDTIME Qty: 135 11RF clozapine [Clozaril] 200 mg tablet 200 mg PO QAM Qty: 30 11RF mirtazapine 45 mg tablet 45 mg PO BEDTIME Qty: 30 11RF Ativan 0.5 mg tablet 0.5 mg PO BID Qty: 60 5RF oxybutynin chloride 15 mg tablet extended release 24hr 15 mg PO BEDTIME Qty: 90 1RF citalopram [Celexa] 40 mg tablet 40 mg PO QAM Qty: 30 11RF atorvastatin 20 mg tablet 20 mg PO QAM acetaminophen 500 mg Tablet 500 - 1,000 mg PO Q6H PRN (Reason: Pain) dexlansoprazole 60 mg capsule,biphase delayed releas 60 mg PO DAILY fluticasone propionate 50 mcg/actuation spray,suspension 1 spray intranasal BID albuterol sulfate [ProAir HFA] 90 mcg/actuation HFA aerosol inhaler 2 puff inhalation Q4H PRN (Reason: shortness of breath or wheezing) Qty: 17 2RF budesonide-formoterol [Symbicort] 160-4.5 mcg/actuation HFA aerosol inhaler 2 puff inhalation BID Qty: 10.2 3RF meloxicam 7.5 mg tablet 7.5 mg PO BID PRN (Reason: INFLAMATION AND PAIN.) tramadol 50 mg tablet 50 mg PO BID PRN (Reason: Pain) baclofen 10 mg tablet 10 mg PO BID PRN (Reason: Pain) Discharge Orders: Discharge ED (Routine); Ordered 10/20/23 Ordered By: Jun Patton Referrals: Evans Olvera MD [Primary Care Provider] - 1 week Patient Instructions: Chronic Pain (ED), Depression (ED), Anxiety (ED) Activity Restrictions/Additional Instructions: After performing physical evaluation with lab work and medication review we will increase her Cogentin to 1 mg twice a day and increase her Neurontin to 300 mg 3 times a day. We will provide you with new prescriptions to be sent to your pharmacy. Please keep your appointment with Dr. Denis through [facility] on 10 22. Please tell him of these changes he may continue them or he may further change her medicine. Coding Level of Care Code ED Research Tech for 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
[2023-10-20 16:01] LABS: Basophils # 0.1 10^3/uL (0.0-0.1); Basophils % 0.4 %; Eosinophils # 0.2 10^3/uL (0.0-0.8); Eosinophils % 1.7 %; Lymphocytes # 2.5 10^3/uL (0.8-4.8); Lymphocytes % 19.8 %; Mean Corpuscular HGB Conc 32.9 g/dL (30-55); Mean Corpuscular Volume 91.3 fl (85-98); Mean Platelet Volume 9.4 fL (7.4-10.4); Monocytes % 7.8 %; Neutrophils # 8.83 10^3/uL (1.8-7.7); Neutrophils % 69.9 %; Nucleated Red Blood Cells % 0 %; Platelet Count 279 10^3/cmm (157-399); Red Blood Count 4.16 10^6/uL (3.85-5.65); Red Cell Distribution Width 14.5 % (12.1-15.1); White Blood Count 12.63 10^3/uL (3.29-11.43)
[2023-10-20 16:13] LABS: Alanine Aminotransferase 19 U/L (0-33); Albumin Level 3.9 g/dL (3.5-5.2); Alkaline Phosphatase 121 U/L (35-105); Anion Gap 15.2 (5-19); Aspartate Amino Transferase 14 U/L (0-32); Blood Urea Nitrogen 17 mg/dL (6-20); Calcium 8.6 mg/dL (8.5-10.5); Carbon Dioxide 22 mmol/L (22-29); Chloride 101 mmol/L (98-107); Creatinine Clr Calc Pharmacy 83.9429; Globulin 2.8 g/dL (1.3-4.6); Glomerular Filtration Rate 85.6 mL/min (90-130); Glucose 142 mg/dL (65-115); Osmolality Calculated 282 mOsm/kg (285-295); Potassium 4.2 mmol/L (3.5-5.1); Sodium 134 mmol/L (136-145); Total Bilirubin 0.2 mg/dL (0.15-1.2); Total Protein 6.7 g/dL (6.6-8.7)
[2023-10-20 16:42] LABS: Acetaminophen < 5.0 ug/mL (10-30); Alcohol Level < 10 mg/dL (0-10); Salicylate < 0.3 mg/dL (3-10)
[2023-10-20 17:00] LABS: Add Urine Microscopic? NO; Charge for UA Resulting for Rev
[2023-10-20 17:06] LABS: Bilirubin Urine Neg (Negative); Blood Urine Neg (Negative); Glucose Urine UA Norm (Normal); Ketones Urine Negative (Negative); Leukocyte Esterase Urine Negative (Negative); Nitrate Urine Negative (Negative); Protein Urine Neg (Negative); Specific Gravity, Urine 1.005 (1.005-1.030); Urine Appearance Clear (CLEAR); Urine Color Colorless (Yellow); Urobilinogen Urine Norm (Negative); pH Urine 5 (5-7)
[2023-10-20 17:18] LABS: Amphetamines Screen Urine Negative (Negative); Barbiturates Screen Urine Negative (Negative); Benzodiazepines Screen Urine Positive (Negative); Cocaine Screen Urine Negative (Negative); Opiate Screen Urine Negative (Negative); PCP Screen Urine Negative (Negative); THC Screen Urine Negative (Negative)
== END 2023-10-20 17:06 | disposition home or self-care (01) ==
PROVIDERS: Emergency Provider Emergency Medicine; PCP Family Medicine Adult Medicine
DX: F41.9 Anxiety disorder, unspecified (principal); F32.A Depression, unspecified; G89.29 Other chronic pain; J44.9 Chronic obstructive pulmonary disease, unspecified; E78.2 Mixed hyperlipidemia
CPT/HCPCS: 36415; 80053; 80306; 80307; 81003; 85025; 99283

== ENCOUNTER 2023-10-31 05:13 | Emergency (ER) | payer MEDICARE, MEDICAID, SELFPAY ==
[2023-02-06 10:08] VITALS: BP 132/88; BMI 31.9
[2023-10-31 05:14] VITALS: BP 119/80; PULSE 96; RESP 18; TEMP 36.6; O2SAT 96; BMI 30.7
--- NOTE | 2023-10-31 05:30 | ED_ITS ---
HPI - Fall General: Chief Complaint: Fall Stated Complaint: fall Time Seen by Provider: 10/31/23 05:29 History of Present Illness: 58-year-old female presents emergency de partment via EMS personnel with complaints of upper thigh pain. She states she slipped on the floor while walki ng her socks this morning. She states she did not lose consciousness. She states that she feels like she pulled her hamstring and is currently having a 4 out of 10 aching pain to the back of her leg. She is able to flex and extend her leg and states she is able to walk after the fall but thought she should come to the emergency department to get it evaluated. She denies numbness or tingling to the extremity. Review of Systems General: Reports: 10 or more systems reviewed and unremarkable except in HPI and below Musc: Reports: extremity pain; Denies: extremity swelling, limited range of motion or muscle weakness [facility] ED PFSH: Medical History Former smoker States quit smoking 09/13/2023. 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 Uterine prolapse Prediabetes Chronic bronchitis with COPD (chronic obstructive pulmonary disease) Mixed hyperlipidemia Psychiatric care Osteoarthritis (arthritis due to wear and tear of joints) Chronic pain disorder Right shoulder, bilateral lower extremities Obesity (BMI 30.0-34.9) GERD (gastroesophageal reflux disease) Surgical History Status post bilateral salpingo-oophorectomy (BSO) S/P laparoscopic assisted vaginal hysterectomy (LAVH) Family History Other CAD (coronary artery disease) Hypertension Social History Substance/Drug Use: never Do you think of yourself as: Straight/Heterosexual Female Reproductive History: Para: 2 Physical Exam Narrative: EXAM NARRATIVE: Constitutional: the patient appears well nourished and with normal development. Vital signs reviewed as documented. GCS 15, no acute distress at present. HENMT: Normocephalic, atraumatic. External ears normal appearance without drainage. Nose without drainage, normal appearance. Mucus membranes moist. Neck is supple, No jugular venous distension, trachea is midline, no appreciable carotid bruits. No lymphadenopathy. No meningeal signs. Flexion, extension and lateral rotation is without pain. Eyes: Pupils are equal, round, reactive to light and accommodation. No scleral icterus. Extra-ocular movement are intact. Thorax is symmetrical and with equal rise and fall with respirations. Resp: Lungs are clear to auscultation. No wheezes, rales, crackles or ronchi at present. Cardio: Regular rate and rhythm. Positive S1, S2. No appreciable murmurs, rubs or gallops. GI: Abdominal exam reveals normal bowel sounds to all quadrants. No organomegaly. No obvious palpable masses noted. No hepatomegally appreciated. Soft, non-tender to palpation. Extremity: Extremities are non-edematous and both femoral and pedal pulses are 2+ and equal bilaterally. Moves all extremities well, sensation in all extremities. No obvious deformity. Extremities nontender to palpation to posterior aspect of her leg. Neuro: Alert and oriented x4, person, place, time and situation. Cranial nerves II through XII are grossly intact, there is no focal neurological deficits that I can appreciate at present. Sensation intact to all extremities. 2-point discrimination intact. Light touch intact to all extremities. Motor strength in the upper and lower extremities are equal and bilateral 5/5. Psych: Cooperative, calm, normal thought process, appropriate judgment. Skin: No lesions, rashes. No gross abnormalities noted. Back: Symmetrical, no obvious deformity, No CVA tenderness Course Vital Signs: Vital signs: Vital Signs Temperature 97.9 F 10/31/23 05:14 Pulse Rate 96 10/31/23 05:14 Respiratory Rate 18 10/31/23 05:14 Blood Pressure 119/80 10/31/23 05:14 Pulse Oximetry 96 10/31/23 05:14 Oxygen Delivery Me thod Room Air 10/31/23 05:14 MDM - Fall Medical Decision Making Physical exam completed document the patient is able to flex and extend her physical exam is essentially negative. Palpation to the posterior aspect of her right upper leg demonstrates some tenderness consistent with musculoskeletal strain. I have provided the patient elastic wrap as well as Tylenol for pain control. I discussed supportive care and treatment and advised follow-up with primary care physician the patient states she is in agreement with that plan. Medical Records I reviewed the patient's medical records. No radiology studies performed this visit Discharge Plan Discharge Patient Disposition: Home Clinical Impression: Musculoskeletal strain Condition: Stable Prescriptions: No Action (DME) walker with seat See Rx Instructions .Route .MEDSUPPLY Qty: 1 0RF Rx Instructions: As directed montelukast [Singulair] 10 mg tablet 10 mg PO QAM Qty: 90 1RF clozapine [Clozaril] 100 mg tablet See Rx Instructions PO .COMPLEX Qty: 150 11RF Rx Instructions: Take two tablets in the morning and 3 tablets at night. clozapine 50 mg tablet 50 mg PO BID Qty: 60 11RF benztropine 1 mg tablet 1 mg PO BID Qty: 60 11RF mirtazapine 45 mg tablet 45 mg PO BEDTIME Qty: 30 11RF Ativan 0.5 mg tablet 0.5 mg PO BID Qty: 60 5RF oxybutynin chloride 15 mg tablet extended release 24hr 15 mg PO BEDTIME Qty: 90 1RF citalopram [Celexa] 40 mg tablet 40 mg PO QAM Qty: 30 11RF atorvastatin 20 mg tablet 20 mg PO QAM acetaminophen 500 mg Tablet 500 - 1,000 mg PO Q6H PRN (Reason: Pain) dexlansoprazole 60 mg capsule,biphase delayed releas 60 mg PO DAILY fluticasone propionate 50 mcg/actuation spray,suspension 1 spray intranasal BID albuterol sulfate [ProAir HFA] 90 mcg/actuation HFA aerosol inhaler 2 puff inhalation Q4H PRN (Reason: shortness of breath or wheezing) Qty: 17 2RF budesonide-formoterol [Symbicort] 160-4.5 mcg/actuation HFA aerosol inhaler 2 puff inhalation BID Qty: 10.2 3RF meloxicam 7.5 mg tablet 7.5 mg PO BID PRN (Reason: INFLAMATION AND PAIN.) tramadol 50 mg tablet 50 mg PO BID PRN (Reason: Pain) baclofen 10 mg tablet 10 mg PO BID PRN (Reason: Pain) gabapentin 300 mg capsule 300 mg PO Q8H Qty: 30 0RF Discharge Orders: Discharge ED (Routine); Ordered 10/31/23 Ordered By: Jsoe Ross Referrals: Evans Olvera MD [Primary Care Provider] - Discharge Diet: Advance as tolerated Discharge Activity: Resume usual activity Patient Instructions: Opioid Safety, Pain Management Activity Restrictions/Additional Instructions: Activity Restrictions/Additional Instructions: Thank you for choosing [facility] for your healthcare needs today. Please realize that you were seen in the Emergency Department and that we are providing you with an emergency medical screening exam and this may not be a complete and all inclusive of all the testing and or medical work-up that you may need to determine your ailment or severity of your illness. It is very important that you follow-up as instructed with your Primary care provider or Specialist for additional evaluation and to discuss your medical treatment plan. Coding Level of Care Code ED Edi Programmer Analyst for 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
[2023-10-31 05:55] VITALS: BP 124/89; PULSE 98; O2SAT 96
== END 2023-10-31 06:00 | disposition home or self-care (01) ==
PROVIDERS: Emergency Provider Internal Medicine; PCP Family Medicine Adult Medicine
DX: S76.911A Strain of unspecified muscles, fascia and tendons at thigh level, right thigh, initial encounter (principal); J44.9 Chronic obstructive pulmonary disease, unspecified; E78.2 Mixed hyperlipidemia; W01.0XXA Fall on same level from slipping, tripping and stumbling without subsequent striking against object, initial encounter
CPT/HCPCS: 99282

== ENCOUNTER 2023-11-03 19:18 | Emergency (ER) | payer MEDICARE, MEDICAID, SELFPAY ==
[2023-02-06 10:08] VITALS: BP 132/88; BMI 31.9
[2023-11-03 19:24] VITALS: BP 92/61; PULSE 109; RESP 26; TEMP 36.6; O2SAT 95; BMI 30.7
--- NOTE | 2023-11-03 20:51 | ED_ITS ---
Documented by User: MAGDA German 11/03/23 23:36 HPI - Nausea/Vomiting/Diarrhea 2 General: Chief complaint: Nausea/Vomiting/Diarrhea Stated complaint: HEADACHE Time Seen by Provider: 11/03/23 20:08 Source: patient Mode of arrival: ambulatory Limitations: no limitations History of Present Illness: Patient is a 58-year-old female presenting to the emergency department complaining of nausea and vomiting for the past hour. She arrives via EMS to the waiting room, and she reports to me that her symptoms began all of a sudden as she was sitting at home doing nothing. She is reporting an associated headache as well as crampy abdominal pain. She has multiple ED visits over the past month, and she states to me that she wants a room on the second floor because she is sick. When asked anytime she is vomited, she states she is only vomited a little bit. No diarrhea, fevers, chest pain, breathing difficulties, or any other symptoms at this time. MD elicited complaint: nausea, vomiting and abdominal pain Onset (ago): hour(s) Associated nausea: Yes Location of pain: Diffuse Quality: cramping Associated symtoms: Reports headache(s) and nausea; Denies bloating, chest pain, diaphoresis, dizziness, dysuria or palpitations Review of Systems 2 General: Reports: 10 or more systems reviewed and unremarkable except in HPI and below Const: Denies: fever(s), chills, change in appetite, change in weight or diaphoresis ENMT: Denies: throat pain or hoarseness Card: Denies: chest pain, palpitations or lightheadedness Resp: Denies: dyspnea, productive cough or wheezing GI: Reports: abdominal pain, nausea and vomiting; Denies: diarrhea, constipation, bloating, change in stool character or hematochezia : Denies: flank pain, difficulty voiding, dysuria, urinary frequency or urinary urgency Musc: Denies: neck pain or back pain Skin/Breast: Denies: rash or new lesions Neuro: Reports: headache(s); Denies: dizziness PFSH ED 2 PFSH: Medical History Former smoker States quit smoking 09/13/2023. 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 Uterine prolapse Prediabetes Chronic bronchitis with COPD (chronic obstructive pulmonary disease) Mixed hyperlipidemia Psychiatric care Osteoarthritis (arthritis due to wear and tear of joints) Chronic pain disorder Right shoulder, bilateral lower extremities Obesity (BMI 30.0-34.9) GERD (gastroesophageal reflux disease) Surgical History Status post bilateral salpingo-oophorectomy (BSO) S/P laparoscopic assisted vaginal hysterectomy (LAVH) Family History Other CAD (coronary artery disease) Hypertension Social History Substance/Drug Use: never Do you think of yourself as: Straight/Heterosexual Female Reproductive History: Para: 2 Physical Exam 2 Const: COMMON NORMALS: no acute distress, average body habitus, patient oriented x3, no limitations, healthy appearing, alert and well nourished G ENERAL APPEARANCE: cooperative and comfortable ORIENTATION/CONSCIOUSNESS: Yes awake HENMT: COMMON NORMALS: normocephalic, atraumatic, hearing grossly normal bilaterally, external ears normal, Normal external nose present, Normal nasal mucous membranes and turbinates present and moist oral mucous membranes HEAD & SCALP: normocephalic and atraumatic NOSE: Normal external nose present and Normal nasal mucous membranes and turbinates present EXTERNAL EAR: Yes external ears normal Eye: COMMON NORMALS: Equal, round and reactive pupils present, EOMs intact bilaterally, conjunctivae normal and normal visual viramontes by confrontation C ONJUNCTIVA: Yes conjunctivae normal PUPIL: Yes Equal, round and reactive pupils present Neck/C-Spine: COMMON NORMALS: full ROM, supple, no meningeal signs and no JVD Resp: COMMON NORMALS: normal respiratory effort, No retractions, No use of accessory muscles and clear to auscultation bilaterally AUSCULTATION: clear to auscultation bilaterally, no crackles, no rales, no rhonchi and no wheezes Cardio: COMMON NORMALS: no JVD, regular rate, regular rhythm, S1 normal heart sound present, S2 normal heart sound present, No gallops present (Cardio), No clicks present (Cardio), No murmurs present (Cardio), No rub (Cardio) and Peripheral pulses 2+ throughout RATE: regular rate RHYTHM: regular rhythm HEART SOUNDS: S1 normal heart sound present and S2 normal heart sound present PERIPHERAL PULSES: Peripheral pulses 2+ throughout GI: COMMON NORMALS: no masses INSPECTION: Yes abdominal distension A USCULTATION: Yes normoactive bowel sounds PALPATION: Yes Tenderness to palpation present (GI) (Diffuse), Yes Guarding due to palpation present (GI) (Voluntary) and No Rigid due to palpation RECTAL EXAM: deferred : COMMON NORMALS: Yes no CVA tenderness BLADDER/KIDNEY EXAM: Yes no CVA tenderness Back/Pelvis: COMMON NORMALS: no CVA tenderness Extremity: COMMON NORMALS: normal to inspection and full ROM Neuro: COMMON NORMALS: patient oriented x3, moves all extremities, no focal motor deficits and no sensory deficits noted SENSORIUM/ORIENTATION: Yes alert MENINGEAL SIGNS: Yes no meningeal signs Psych: COMMON NORMALS: mental status grossly normal, cooperative and speech normal SPEECH: Yes normal speech Skin: COMMON NORMALS: no rashes or lesions noted GENERAL SKIN EXAM: no rashes or lesions noted Course 2 Vital Signs: Vital signs: Vital Signs Temperature 97.9 F 11/03/23 19:24 Pulse Rate 88 11/03/23 21:00 Respiratory Rate 26 H 11/03/23 19:24 Blood Pressure 82/67 11/03/23 21:00 Pulse Oximetry 91 11/03/23 21:00 Oxygen Delivery Me thod Room Air 11/03/23 19:24 MDM - Nausea/Vomiting/Diarrhea Medical Decision Making This patient was seen and evaluated in the emergency department due to acute onset of nausea vomiting with diffuse abdominal pain. She has had multiple ED visits recently. On arrival patient's vitals overall unremarkable aside from minimal elevation in heart rate. She was complaining of diffuse abdominal pain and nausea, started her on some fluids and gave her Zofran. Lab evaluation showed no elevation in white count at 17 with evidence of left shift. Overall the rest of her laboratory examination was unremarkable. I did order CT of abdomen and pelvis, that showed enlarged common bile duct and gallbladder with recommendation of ultrasound follow-up. Just after ordering right upper quadrant ultrasound, patient is adamant that she wants to leave despite my urging to stay for further evaluation. She states she will return if it gets worse but she wants to handle this at home and is tired of waiting. Again, I urged her not to leave as I wanted to rule out any gallbladder inflammation or obstructing stones, to which she states she will come back if it gets worse. Patient will leave AGAINST MEDICAL ADVICE. Lab Data 11/03/23 20:52 11/03/23 20:52 Radiology Impressions Abdomen/Pelvis CT 11/03/23 21:30 IMPRESSION: 1. Increased fecal loading in the distal half of the colon. However no obstructing mass or acute inflammation. 2. Enlarged common bile duct and gallbladder. No visible stone or obstructing mass. Recommend correlation with laboratory tests. Consider ultrasound follow-up if clinically indicated. 3. Right lower lobe new subsolid 8 mm nodule. However this may be incidental atelectatic change, especially if there is no history of malignancy. Laboratory Results WBC 17.00 10^3/uL (3.29-11.43) H 11/03/23 20:52 RBC 4.11 10^6/uL (3.85-5.65) 11/03/23 20:52 Hgb 12.50 g/dL (11.27-16.99) 11/03/23 20:52 Hct 39.6 % (36-47) 11/03/23 20:52 MCV 96.4 fl (85-98) 11/03/23 20:52 MCH 30.4 pg (27-33) 11/03/23 20:52 MCHC 31.6 g/dL (30-55) 11/03/23 20:52 RDW 14.6 % (12.1-15.1) 11/03/23 20:52 Plt Count 293 10^3/cmm (157-399) 11/03/23 20:52 MPV 9.4 fL (7.4-10.4) 11/03/23 20:52 Neut % (Auto) 84.4 % 11/03/23 20:52 Lymph % (Auto) 7.4 % 11/03/23 20:52 [place] % (Auto) 7.5 % 11/03/23 20:52 Eos % (Auto) 0.1 % 11/03/23 20:52 Baso % (Auto) 0.2 % 11/03/23 20:52 Neut # (Auto) 14.34 10^3/uL (1.8-7.7) H 11/03/23 20:52 Lymph # (Auto) 1.3 10^3/uL (0.8-4.8) 11/03/23 20:52 [place] # (Auto) 1.3 10^3/uL (0.2-0.9) H 11/03/23 20:52 Eos # (Auto) 0.0 10^3/uL (0.0-0.8) 11/03/23 20:52 Baso # (Auto) 0.0 10^3/uL (0.0-0.1) 11/03/23 20:52 Nucleated RBC % (auto) 0 % 11/03/23 20:52 Nucleated RBCs # 0.0 /100WBC 11/03/23 20:52 Sodium 138 mmol/L (136-145) 11/03/23 20:52 Potassium 4.3 mmol/L (3.5-5.1) 11/03/23 20:52 Chloride 102 mmol/L (98-107) 11/03/23 20:52 Carbon Dioxide 24 mmol/L (22-29) 11/03/23 20:52 Anion Gap 16.3 (5-19) 11/03/23 20:52 BUN 18 mg/dL (6-20) 11/03/23 20:52 Creatinine 0.8 mg/dL (0.5-0.9) 11/03/23 20:52 GFR Calculation 73.4 mL/min (90-130) L 11/03/23 20:52 Glucose 154 mg/dL (65-115) H 11/03/23 20:52 Calculated Osmolality 291 mOsm/kg (285-295) 11/03/23 20:52 Calcium 8.8 mg/dL (8.5-10.5) 11/03/23 20:52 Total Bilirubin 0.3 mg/dL (0.15-1.2) 11/03/23 20:52 AST 29 U/L (0-32) 11/03/23 20:52 ALT 37 U/L (0-33) H 11/03/23 20:52 Alkaline Phosphatase 141 U/L (35-105) H 11/03/23 20:52 Total Protein 7.3 g/dL (6.6-8.7) 11/03/23 20:52 Albumin 4.1 g/dL (3.5-5.2) 11/03/23 20:52 Globulin 3.2 g/dL (1.3-4.6) 11/03/23 20:52 Lipase 39 U/L (13-60) 11/03/23 20:52 Urine Color Yellow (Yellow) 11/03/23 22:04 Urine Appearance Clear (CLEAR) 11/03/23 22:04 Urine pH 5 (5-7) 11/03/23 22:04 Ur Specific [place] 1.010 (1.005-1.030) 11/03/23 22:04 Urine Protein Trace (Negative) 11/03/23 22:04 Urine Glucose (UA) Norm (Normal) 11/03/23 22:04 Urine Ketones Negative (Negative) 11/03/23 22:04 Urine Blood Neg (Negative) 11/03/23 22:04 Urine Nitrate Negative (Negative) 11/03/23 22:04 Urine Bilirubin 1+ (Negative) H 11/03/23 22:04 Urine Urobilinogen Neg mg/dL (Negative) 11/03/23 22:04 Ur Leukocyte Esterase Trace (Negative) H 11/03/23 22:04 Urine RBC 0-4 /hpf (0-2) H 11/03/23 22:04 Urine WBC 0-4 /hpf (0-5) H 11/03/23 22:04 Ur Squamous Epith Cells 5-10 /hpf (0-5) H 11/03/23 22:04 Amorphous Sediment 1+ /hpf 11/03/23 22:04 Urine Bacteria 2+ /hpf (NONE) H 11/03/23 22:04 Hyaline Casts 5-10 /lpf H 11/03/23 22:04 Urine Mucus 1+ /hpf 11/03/23 22:04 Urine Opiates Screen Negative ng/mL (Negative) 11/03/23 22:04 Ur Barbiturates Screen Negative ng/mL (Negative) 11/03/23 22:04 Ur Phencyclidine Scrn Negative ng/mL (Negative) 11/03/23 22:04 Ur Amphetamines Screen Negative ng/mL (Negative) 11/03/23 22:04 U Benzodiazepines Scrn Positive ng/mL (Negative) H 11/03/23 22:04 Urine Cocaine Screen Negative ng/mL (Negative) 11/03/23 22:04 U Marijuana (THC) Screen Negative ng/mL (Negative) 11/03/23 22:04 Ethyl Alcohol < 10 mg/dL (0-10) 11/03/23 20:52 Influenza Type A Ag negative (Negative) 11/03/23 21:05 Influenza Type B Ag negative (Negative) 11/03/23 21:05 SARS-CoV-2 Ag (Rapid) negative (Negative) 11/03/23 21:05 All radiology interpretation(s) finalized by discharge Discharge Plan Discharge Patient Disposition: Left Against Medical Advice Clinical Impression: Right upper quadrant abdominal pain, Left against medical advice Condition: Stable Prescriptions: No Action (DME) walker with seat See Rx Instructions .Route .MEDSUPPLY Qty: 1 0RF Rx Instructions: As directed montelukast [Singulair] 10 mg tablet 10 mg PO QAM Qty: 90 1RF clozapine [Clozaril] 100 mg tablet See Rx Instructions PO .COMPLEX Qty: 150 11RF Rx Instructions: Take two tablets in the morning and 3 tablets at night. clozapine 50 mg tablet 50 mg PO BID Qty: 60 11RF benztropine 1 mg tablet 1 mg PO BID Qty: 60 11RF mirtazapine 45 mg tablet 45 mg PO BEDTIME Qty: 30 11RF Ativan 0.5 mg tablet 0.5 mg PO BID Qty: 60 5RF oxybutynin chloride 15 mg tablet extended release 24hr 15 mg PO BEDTIME Qty: 90 1RF citalopram [Celexa] 40 mg tablet 40 mg PO QAM Qty: 30 11RF atorvastatin 20 mg tablet 20 mg PO QAM acetaminophen 500 mg Tablet 500 - 1,000 mg PO Q6H PRN (Reason: Pain) dexlansoprazole 60 mg capsule,biphase delayed releas 60 mg PO DAILY fluticasone propionate 50 mcg/actuation spray,suspension 1 spray intranasal BID albuterol sulfate [ProAir HFA] 90 mcg/actuation HFA aerosol inhaler 2 puff inhalation Q4H PRN (Reason: shortness of breath or wheezing) Qty: 17 2RF budesonide-formoterol [Symbicort] 160-4.5 mcg/actuation HFA aerosol inhaler 2 puff inhalation BID Qty: 10.2 3RF meloxicam 7.5 mg tablet 7.5 mg PO BID PRN (Reason: INFLAMATION AND PAIN.) tramadol 50 mg tablet 50 mg PO BID PRN (Reason: Pain) baclofen 10 mg tablet 10 mg PO BID PRN (Reason: Pain) gabapentin 300 mg capsule 300 mg PO Q8H Qty: 30 0RF Referrals: Evans Olvera MD [Primary Care Provider] - Patient Instructions: Abdominal Pain (ED) Coding Level of Care Code ED Project Manager/Team Coach for Chg Fwd Documented by User: Cesar Neil DO 11/04/23 06:04 HPI - Nausea/Vomiting/Diarrhea 2 General: Chief complaint: Nausea/Vomiting/Diarrhea Stated complaint: HEADACHE Time Seen by Provider: 11/03/23 20:08 PFSH ED 2 PFSH: Medical History Former smoker States quit smoking 09/13/2023. 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 Uterine prolapse Prediabetes Chronic bronchitis with COPD (chronic obstructive pulmonary disease) Mixed hyperlipidemia Psychiatric care Osteoarthritis (arthritis due to wear and tear of joints) Chronic pain disorder Right shoulder, bilateral lower extremities Obesity (BMI 30.0-34.9) GERD (gastroesophageal reflux disease) Surgical History Status post bilateral salpingo-oophorectomy (BSO) S/P laparoscopic assisted vaginal hysterectomy (LAVH) Family History Other CAD (coronary artery disease) Hypertension Social History Substance/Drug Use: never Do you think of yourself as: Straight/Heterosexual Course 2 Vital Signs: Vital signs: Vital Signs Temperature 97.9 F 11/03/23 19:24 Pulse Rate 88 11/03/23 21:00 Respiratory Rate 26 H 11/03/23 19:24 Blood Pressure 82/67 11/03/23 21:00 Pulse Oximetry 91 11/03/23 21:00 Oxygen Delivery Me thod Room Air 11/03/23 19:24 MDM - Nausea/Vomiting/Diarrhea Medical Decision Making This patient was seen and evaluated in the emergency department due to acute onset of nausea vomiting with diffuse abdominal pain. She has had multiple ED visits recently. On arrival patient's vitals overall unremarkable aside from minimal elevation in heart rate. She was complaining of diffuse abdominal pain and nausea, started her on some fluids and gave her Zofran. Lab evaluation showed no elevation in white count at 17 with evidence of left shift. Overall the rest of her laboratory examination was unremarkable. I did order CT of abdomen and pelvis, that showed enlarged common bile duct and gallbladder with recommendation of ultrasound follow-up. Just after ordering right upper quadrant ultrasound, patient is adamant that she wants to leave despite my urging to stay for further evaluation. She states she will return if it gets worse but she wants to handle this at home and is tired of waiting. Again, I urged her not to leave as I wanted to rule out any gallbladder inflammation or obstructing stones, to which she states she will come back if it gets worse. Patient will leave AGAINST MEDICAL ADVICE. Chart reviewed Lab Data 11/03/23 20:52 11/03/23 20:52 Radiology Impressions Abdomen/Pelvis CT 11/03/23 21:30 IMPRESSION: 1. Increased fecal loading in the distal half of the colon. However no obstructing mass or acute inflammation. 2. Enlarged common bile duct and gallbladder. No visible stone or obstructing mass. Recommend correlation with laboratory tests. Consider ultrasound follow-up if clinically indicated. 3. Right lower lobe new subsolid 8 mm nodule. However this may be incidental atelectatic change, especially if there is no history of malignancy. Laboratory Results WBC 17.00 10^3/uL (3.29-11.43) H 11/03/23 20:52 RBC 4.11 10^6/uL (3.85-5.65) 11/03/23 20:52 Hgb 12.50 g/dL (11.27-16.99) 11/03/23 20:52 Hct 39.6 % (36-47) 11/03/23 20:52 MCV 96.4 fl (85-98) 11/03/23 20:52 MCH 30.4 pg (27-33) 11/03/23 20:52 MCHC 31.6 g/dL (30-55) 11/03/23 20:52 RDW 14.6 % (12.1-15.1) 11/03/23 20:52 Plt Count 293 10^3/cmm (157-399) 11/03/23 20:52 MPV 9.4 fL (7.4-10.4) 11/03/23 20:52 Neut % (Auto) 84.4 % 11/03/23 20:52 Lymph % (Auto) 7.4 % 11/03/23 20:52 [place] % (Auto) 7.5 % 11/03/23 20:52 Eos % (Auto) 0.1 % 11/03/23 20:52 Baso % (Auto) 0.2 % 11/03/23 20:52 Neut # (Auto) 14.34 10^3/uL (1.8-7.7) H 11/03/23 20:52 Lymph # (Auto) 1.3 10^3/uL (0.8-4.8) 11/03/23 20:52 [place] # (Auto) 1.3 10^3/uL (0.2-0.9) H 11/03/23 20:52 Eos # (Auto) 0.0 10^3/uL (0.0-0.8) 11/03/23 20:52 Baso # (Auto) 0.0 10^3/uL (0.0-0.1) 11/03/23 20:52 Nucleated RBC % (auto) 0 % 11/03/23 20: Nucleated RBCs # 0.0 /100WBC 11/03/23 20:52 Sodium 138 mmol/L (136-145) 11/03/23 20:52 Potassium 4.3 mmol/L (3.5-5.1) 11/03/23 20:52 Chloride 102 mmol/L (98-107) 11/03/23 20:52 Carbon Dioxide 24 mmol/L (22-29) 11/03/23 20:52 Anion Gap 16.3 (5-19) 11/03/23 20:52 BUN 18 mg/dL (6-20) 11/03/23 20:52 Creatinine 0.8 mg/dL (0.5-0.9) 11/03/23 20:52 GFR Calculation 73.4 mL/min (90-130) L 11/03/23 20:52 Glucose 154 mg/dL (65-115) H 11/03/23 20:52 Calculated Osmolality 291 mOsm/kg (285-295) 11/03/23 20:52 Calcium 8.8 mg/dL (8.5-10.5) 11/03/23 20:52 Total Bilirubin 0.3 mg/dL (0.15-1.2) 11/03/23 20:52 AST 29 U/L (0-32) 11/03/23 20:52 ALT 37 U/L (0-33) H 11/03/23 20:52 Alkaline Phosphatase 141 U/L (35-105) H 11/03/23 20:52 Total Protein 7.3 g/dL (6.6-8.7) 11/03/23 20:52 Albumin 4.1 g/dL (3.5-5.2) 11/03/23 20:52 Globulin 3.2 g/dL (1.3-4.6) 11/03/23 20:52 Lipase 39 U/L (13-60) 11/03/23 20:52 Urine Color Yellow (Yellow) 11/03/23 22:04 Urine Appearance Clear (CLEAR) 11/03/23 22:04 Urine pH 5 (5-7) 11/03/23 22:04 Ur Specific [place] 1.010 (1.005-1.030) 11/03/23 22:04 Urine Protein Trace (Negative) 11/03/23 22:04 Urine Glucose (UA) Norm (Normal) 11/03/23 22:04 Urine Ketones Negative (Negative) 11/03/23 22:04 Urine Blood Neg (Negative) 11/03/23 22:04 Urine Nitrate Negative (Negative) 11/03/23 22:04 Urine Bilirubin 1+ (Negative) H 11/03/23 22:04 Urine Urobilinogen Neg mg/dL (Negative) 04/13/24 22:04 Ur Leukocyte Esterase Trace (Negative) H 11/03/23 22:04 Urine RBC 0-4 /hpf (0-2) H 11/03/23 22:04 Urine WBC 0-4 /hpf (0-5) H 11/03/23 22:04 Ur Squamous Epith Cells 5-10 /hpf (0-5) H 11/03/23 22:04 Amorphous Sediment 1+ /hpf 11/03/23 22:04 Urine Bacteria 2+ /hpf (NONE) H 11/03/23 22:04 Hyaline Casts 5-10 /lpf H 11/03/23 22:04 Urine Mucus 1+ /hpf 11/03/23 22:04 Urine Opiates Screen Negative ng/mL (Negative) 11/03/23 22:04 Ur Barbiturates Screen Negative ng/mL (Negative) 11/03/23 22:04 Ur Phencyclidine Scrn Negative ng/mL (Negative) 11/03/23 22:04 Ur Amphetamines Screen Negative ng/mL (Negative) 11/03/23 22:04 U Benzodiazepines Scrn Positive ng/mL (Negative) H 11/03/23 22:04 Urine Cocaine Screen Negative ng/mL (Negative) 11/03/23 22:04 U Marijuana (THC) Screen Negative ng/mL (Negative) 11/03/23 22:04 Ethyl Alcohol < 10 mg/dL (0-10) 11/03/23 20:52 Influenza Type A Ag negative (Negative) 11/03/23 21:05 Influenza Type B Ag negative (Negative) 11/03/23 21:05 SARS-CoV-2 Ag (Rapid) negative (Negative) 11/03/23 21:05 Discharge Plan Discharge Patient Disposition: Left Against Medical Advice Clinical Impression: Right upper quadrant abdominal pain, Left against medical advice Condition: Stable Prescriptions: No Action (DME) walker with seat See Rx Instructions .Route .MEDSUPPLY Qty: 1 0RF Rx Instructions: As directed montelukast [Singulair] 10 mg tablet 10 mg PO QAM Qty: 90 1RF clozapine [Clozaril] 100 mg tablet See Rx Instructions PO .COMPLEX Qty: 150 11RF Rx Instructions: Take two tablets in the morning and 3 tablets at night. clozapine 50 mg tablet 50 mg PO BID Qty: 60 11RF benztropine 1 mg tablet 1 mg PO BID Qty: 60 11RF mirtazapine 45 mg tablet 45 mg PO BEDTIME Qty: 30 11RF Ativan 0.5 mg tablet 0.5 mg PO BID Qty: 60 5RF oxybutynin chloride 15 mg tablet extended release 24hr 15 mg PO BEDTIME Qty: 90 1RF citalopram [Celexa] 40 mg tablet 40 mg PO QAM Qty: 30 11RF atorvastatin 20 mg tablet 20 mg PO QAM acetaminophen 500 mg Tablet 500 - 1,000 mg PO Q6H PRN (Reason: Pain) dexlansoprazole 60 mg capsule,biphase delayed releas 60 mg PO DAILY fluticasone propionate 50 mcg/actuation spray,suspension 1 spray intranasal BID albuterol sulfate [ProAir HFA] 90 mcg/actuation HFA aerosol inhaler 2 puff inhalation Q4H PRN (Reason: shortness of breath or wheezing) Qty: 17 2RF budesonide-formoterol [Symbicort] 160-4.5 mcg/actuation HFA aerosol inhaler 2 puff inhalation BID Qty: 10.2 3RF meloxicam 7.5 mg tablet 7.5 mg PO BID PRN (Reason: INFLAMATION AND PAIN.) tramadol 50 mg tablet 50 mg PO BID PRN (Reason: Pain) baclofen 10 mg tablet 10 mg PO BID PRN (Reason: Pain) gabapentin 300 mg capsule 300 mg PO Q8H Qty: 30 0RF Referrals: Evans Olvera MD [Primary Care Provider] - Patient Instructions: Abdominal Pain (ED) Coding Level of Care Code ED Project Manager/Team Coach for 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
[2023-11-03] MEDS: ondansetron 2 mg/ML SDV 2 mL 4 MG IVP (20:55)
[2023-11-03] MEDS: sodium chloride 0.9% 1,000 ML 999 ML IV (20:58)
[2023-11-03 21:00] VITALS: BP 82/67; PULSE 88; O2SAT 91
[2023-11-03 21:05] LABS: Basophils % 0.2 %; Eosinophils % 0.1 %; Hematocrit 39.6 % (36-47); Lymphocytes # 1.3 10^3/uL (0.8-4.8); Lymphocytes % 7.4 %; Mean Corpuscular HGB Conc 31.6 g/dL (30-55); Mean Corpuscular Hemoglobin 30.4 pg (27-33); Mean Corpuscular Volume 96.4 fl (85-98); Mean Platelet Volume 9.4 fL (7.4-10.4); Monocytes # 1.3 10^3/uL (0.2-0.9); Monocytes % 7.5 %; Neutrophils # 14.34 10^3/uL (1.8-7.7); Neutrophils % 84.4 %; Nucleated Red Blood Cells % 0 %; Platelet Count 293 10^3/cmm (157-399); Red Blood Count 4.11 10^6/uL (3.85-5.65); Red Cell Distribution Width 14.6 % (12.1-15.1)
[2023-11-03 21:26] LABS: Alanine Aminotransferase 37 U/L (0-33); Albumin Level 4.1 g/dL (3.5-5.2); Alkaline Phosphatase 141 U/L (35-105); Anion Gap 16.3 (5-19); Aspartate Amino Transferase 29 U/L (0-32); Blood Urea Nitrogen 18 mg/dL (6-20); Calcium 8.8 mg/dL (8.5-10.5); Carbon Dioxide 24 mmol/L (22-29); Chloride 102 mmol/L (98-107); Creatinine Clr Calc Pharmacy 72.3661; Globulin 3.2 g/dL (1.3-4.6); Glomerular Filtration Rate 73.4 mL/min (90-130); Glucose 154 mg/dL (65-115); Lipase 39 U/L (13-60); Osmolality Calculated 291 mOsm/kg (285-295); Potassium 4.3 mmol/L (3.5-5.1); Sodium 138 mmol/L (136-145); Total Bilirubin 0.3 mg/dL (0.15-1.2); Total Protein 7.3 g/dL (6.6-8.7)
[2023-11-03 21:27] LABS: Alcohol Level < 10 mg/dL (0-10)
--- NOTE | 2023-11-03 21:30 | CTR_ITS ---
PROCEDURE INFORMATION: Exam: CT Abdomen And Pelvis With Contrast Exam date and time: 11/03/2023 9:38 PM Age: 58 years old Clinical indication: Bloating; Abdominal pain; Generalized; Prior surgery; Surgery date: 6+ months; Surgery type: Hysterectomy; Patient HX: Diffuse abd pain with distention; Additional info: Diffuse abd pain/distention TECHNIQUE: Imaging protocol: Computed tomography of the abdomen and pelvis with contrast. Radiation optimization: All CT scans at this facility I do not see any at least one of these dose optimization techniques: automated exposure control; mA and/or kV adjustment per patient size (includes targeted exams where dose is matched to clinical indication); or iterative reconstruction. Contrast material: OMNI 350; Contrast volume: 100 ml; Contrast route: INTRAVENOUS (IV); COMPARISON: CT bony pelvis [id number] 09/21/2022 8:29 PM, CT chest from 09/13/2023 RADIATION DOSE METRICS: Total DLP (mGy-cm): 758.68 FINDINGS: Lungs: In the right lower lobe posterior basal segment there is a new subsolid 8 mm somewhat angular subpleural nodule. As this is a new finding it may be incidental atelectasis but short-term follow-up is suggested. Liver: Normal. No mass. Gallbladder and bile ducts: The gallbladder and the common bile duct are distended. The common duct measures up to 11 mm. However no significant dilatation of the intrahepatic biliary tree. No visible obstructing stone or mass. Pancreas: Normal. No ductal dilation. Spleen: Normal. No splenomegaly. Adrenal glands: Normal. No mass. Kidneys and ureters: Subcentimeter cyst or angiomyolipoma in the left kidney. Stomach and bowel: There is generalized increased fecal loading throughout the colon. For example the transverse colon measures up to 6.9 cm. The splenic flexure measures 7.8 cm. The sigmoid colon measures up to 6.3 cm. There is fluid in the more proximal colon. No evidence of obstructing mass or acute inflammation. Small bowel is normal. Appendix: No evidence of appendicitis. Intraperitoneal space: Unremarkable. No free air. No significant fluid collection. Vasculature: Moderately atherosclerotic infrarenal abdominal aorta. Lymph nodes: Unremarkable. No enlarged lymph nodes. Urinary bladder: Unremarkable as visualized. Reproductive: Unremarkable as visualized. Bones/joints: Unremarkable. No acute fracture. Soft tissues: Unremarkable. CT/CT abdomen pelvis w con* [id number] IMPRESSION: 1. Increased fecal loading in the distal half of the colon. However no obstructing mass or acute inflammation. 2. Enlarged common bile duct and gallbladder. No visible stone or obstructing mass. Recommend correlation with laboratory tests. Consider ultrasound follow-up if clinically indicated. 3. Right lower lobe new subsolid 8 mm nodule. However this may be incidental atelectatic change, especially if there is no history of malignancy.
[2023-11-03 21:31] LABS: Influenza A by IFA negative (Negative); Influenza B by IFA negative (Negative); SARS Covid-2 Antigen negative (Negative)
[2023-11-03] MEDS: iohexol 350 mg/mL 500 mL Btl (per mL) IV (21:38)
[2023-11-03 22:27] LABS: Bilirubin Urine 1+ (Negative); Blood Urine Neg (Negative); Glucose Urine UA Norm (Normal); Ketones Urine Negative (Negative); Nitrate Urine Negative (Negative); Protein Urine Trace (Negative); Urine Appearance Clear (CLEAR); Urine Color Yellow (Yellow); pH Urine 5 (5-7)
[2023-11-03 22:28] LABS: Add Urine Microscopic? YES; Amorphous Sediment Urine 1+ /hpf; Amphetamines Screen Urine Negative (Negative); Bacteria Urine 2+ /hpf; Barbiturates Screen Urine Negative (Negative); Benzodiazepines Screen Urine Positive (Negative); Cocaine Screen Urine Negative (Negative); Leukocyte Esterase Urine Trace (Negative); Mucus Urine 1+ /hpf; Opiate Screen Urine Negative (Negative); PCP Screen Urine Negative (Negative); RBC Urine 0-4 /hpf (0-2); THC Screen Urine Negative (Negative); Urobilinogen Urine Neg (Negative); WBC Urine 0-4 /hpf (0-5)
== END 2023-11-03 23:02 | disposition left against medical advice (07) ==
PROVIDERS: Emergency Provider Physician Assistant; PCP Family Medicine Adult Medicine
DX: R10.11 Right upper quadrant pain (principal); Z53.29 Procedure and treatment not carried out because of patient's decision for other reasons; Z11.52 Encounter for screening for COVID-19; J44.9 Chronic obstructive pulmonary disease, unspecified; E78.2 Mixed hyperlipidemia
CPT/HCPCS: 74177; 80053; 80306; 80307; 81001; 83690; 85025; 87426; 87804; 96361; 96374; 99285; J2405; J7030; Q9967

== ENCOUNTER → 2023-11-06 13:23 | Outpatient (BNVA) | payer MEDICARE, OTHER, SELFPAY ==
[2023-02-06 10:08] VITALS: BP 132/88; BMI 31.9
== END ==
PROVIDERS: PCP Family Medicine Adult Medicine; Visit Provider Psychiatry & Neurology Psychiatry
DX: F20.89 Other schizophrenia (principal)
CPT/HCPCS: 85007; 85027

== ENCOUNTER 2023-11-13 10:47 | Emergency (ER) | payer MEDICARE, MEDICAID, SELFPAY ==
[2023-02-06 10:08] VITALS: BP 132/88; BMI 31.9
[2023-11-13 11:01] VITALS: BP 112/73; PULSE 102; RESP 20; TEMP 36.7; O2SAT 96
--- NOTE | 2023-11-13 11:02 | XRR_ITS ---
PROCEDURE INFORMATION: Exam: XR Bilateral Hips Exam date and time: 11/13/2023 11:10 AM Age: 58 years old Clinical indication: Hip pain; Bilateral; Additional info: Hip pain, bilateral. Fall one year ago TECHNIQUE: Imaging protocol: Radiologic exam of the bilateral hips. Views: 2 views of hips with pelvis when performed. COMPARISON: CT abdomen pelvis w con* [id number] 11/03/2023 9:38 PM FINDINGS: Bones/joints: No fracture or dislocation. No acute osseous, joint, or soft tissue abnormality. . No acute fracture. Soft tissues: Bipartite corticated calcific density adjacent to the right lesser trochanter is probably myositis calcifications. XR/XR hip BI 2V wo/w pel [id number] IMPRESSION: No acute findings.
--- NOTE | 2023-11-13 11:03 | ED_ITS ---
HPI - Extremity Problem General: Chief complaint: Extremity Injury, Lower Stated complaint: left hip pain Time Seen by Provider: 11/13/23 10:58 History of Present Illness: Patient presents with bilateral hip pain. Perhaps worse on the left than the right. She is requesting a steroid shot and x-rays of both of her hips. She had a fall about 2 weeks ago. She had been seen in the emergency room and apparently had some stitches at that time. She is ambulatory but she says it hurts a lot to walk. She has had no altered mental status. No shortness of breath. No focal motor deficits. No abdominal pain. No nausea or vomiting. Review of Systems Narrative: Constitutional symptoms: Negative except as documented in HPI. Skin symptoms: Negative except as documented in HPI. Eye symptoms: Negative except as documented in HPI. ENMT symptoms: Negative except as documented in HPI. Respiratory symptoms: Negative except as documented in HPI. Cardiovascular symptoms: Negative except as documented in HPI. Gastrointestinal symptoms: Negative except as documented in HPI. Genitourinary symptoms: Negative except as documented in HPI. Musculoskeletal symptoms: Negative except as documented in HPI. Neurologic symptoms: Negative except as documented in HPI. Psychiatric symptoms: Negative except as documented in HPI. Endocrine symptoms: Negative except as documented in HPI. [facility] ED PFSH: Medical History (Updated 11/13/23 @ 11:46 by Carmela Nelson MD) Hospital discharge follow-up Former smoker States quit smoking 09/13/2023. 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 Uterine prolapse Prediabetes Chronic bronchitis with COPD (chronic obstructive pulmonary disease) Mixed hyperlipidemia Psychiatric care Osteoarthritis (arthritis due to wear and tear of joints) Chronic pain disorder Right shoulder, bilateral lower extremities Obesity (BMI 30.0-34.9) GERD (gastroesophageal reflux disease) Surgical History Status post bilateral salpingo-oophorectomy (BSO) S/P laparoscopic assisted vaginal hysterectomy (LAVH) Family History Other CAD (coronary artery disease) Hypertension Social History Substance/Drug Use: never Do you think of yourself as: Straight/Heterosexual Female Reproductive History: Para: 2 Physical Exam Narrative: EXAM NARRATIVE: General: Alert, no acute distress. Skin: warm and dry Head: Normocephalic Neck: Trachea midline Eye: Extraocular movements are intact. Ears, nose, mouth and throat: Oral mucosa moist Respiratory: Respirations are non-labored Musculoskeletal: Normal ROM Neurological: Alert and oriented to person, place, time, and situation, No focal neurological deficit observed. Psychiatric: Cooperative, appropriate mood & affect. Course Vital Signs: Vital signs: Vital Signs Temperature 98.1 F 11/13/23 11:01 Pulse Rate 102 H 11/13/23 11:01 Respiratory Rate 20 H 11/13/23 11:01 Blood Pressure 112/73 11/13/23 11:01 Pulse Oximetry 96 11/13/23 11:01 MDM - Extremity (Nontraumatic) Medical Decision Making X-ray of the bilateral hips were ordered. X-ray of the hips bilaterally and pelvis: No acute fractures. No dislocations. This was reviewed and interpreted by myself the emergency room physician. Lab Data Radiology Impressions Hip/Pelvis X-Ray 11/13/23 11:02 IMPRESSION: No acute findings. All radiology interpretation(s) finalized by discharge Other Data Assessment and plan: - IM Decadron in the emergency room - Discharged home - Discussed plan with patient. Answered any questions. - Evaluation and treatment of this problem were appropriate in the emergency setting. Discharge Plan Discharge Patient Disposition: Home Clinical Impression: Hip pain Condition: Stable Prescriptions: New dexamethasone 6 mg tablet 6 mg PO DAILY 5 Days Qty: 5 0RF No Action (DME) walker with seat See Rx Instructions .Route .MEDSUPPLY Qty: 1 0RF Rx Instructions: As directed lorazepam 1 mg tablet 1 mg PO BID Qty: 60 5RF montelukast [Singulair] 10 mg tablet 10 mg PO QAM Qty: 90 1RF clozapine [Clozaril] 100 mg tablet See Rx Instructions PO .COMPLEX Qty: 150 11RF Rx Instructions: Take two tablets in the morning and 3 tablets at night. clozapine 50 mg tablet 50 mg PO BID Qty: 60 11RF benztropine 1 mg tablet 1 mg PO BID Qty: 60 11RF mirtazapine 45 mg tablet 45 mg PO BEDTIME Qty: 30 11RF oxybutynin chloride 15 mg tablet extended release 24hr 15 mg PO BEDTIME Qty: 90 1RF citalopram [Celexa] 40 mg tablet 40 mg PO QAM Qty: 30 11RF atorvastatin 20 mg tablet 20 mg PO QAM acetaminophen 500 mg Tablet 500 - 1,000 mg PO Q6H PRN (Reason: Pain) dexlansoprazole 60 mg capsule,biphase delayed releas 60 mg PO DAILY fluticasone propionate 50 mcg/actuation spray,suspension 1 spray intranasal BID albuterol sulfate [ProAir HFA] 90 mcg/actuation HFA aerosol inhaler 2 puff inhalation Q4H PRN (Reason: shortness of breath or wheezing) Qty: 17 2RF budesonide-formoterol [Symbicort] 160-4.5 mcg/actuation HFA aerosol inhaler 2 puff inhalation BID Qty: 10.2 3RF meloxicam 7.5 mg tablet 7.5 mg PO BID PRN (Reason: INFLAMATION AND PAIN.) tramadol 50 mg tablet 50 mg PO BID PRN (Reason: Pain) baclofen 10 mg tablet 10 mg PO BID PRN (Reason: Pain) gabapentin 300 mg capsule 300 mg PO Q8H Qty: 30 0RF Discharge Orders: Discharge ED (Routine); Ordered 11/13/23 Ordered By: Carmela Nelson Referrals: Evans Olvera MD [Primary Care Provider] - (You have been screened and evaluated and felt safe for discharge. Health conditions do change or evolve sometimes and as such it is important that you follow up with your Primary Doctor to be re checked, 3-5 days is a general good time frame for follow up. You are always welcome to return to the ED for re assessment if your symptoms are worsening or you have new concerns) Discharge Diet: Usual diet Discharge Activity: Increase activity as tolerated Patient Instructions: Hip Pain (ED), Pain Management Coding Level of Care Code ED Reproduction Artist for 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
[2023-11-13] MEDS: dexamethasone 10 mg/mL INJ IM (11:20)
== END 2023-11-13 12:00 | disposition home or self-care (01) ==
PROVIDERS: Emergency Provider Emergency Medicine; PCP Family Medicine Adult Medicine
DX: M25.551 Pain in right hip (principal); M25.552 Pain in left hip; J44.9 Chronic obstructive pulmonary disease, unspecified; E78.2 Mixed hyperlipidemia
CPT/HCPCS: 73521; 96372; 99284; J1100

== ENCOUNTER → 2023-11-15 08:39 | Outpatient (BNVA) | payer MEDICARE, MEDICAID, SELFPAY ==
[2023-02-06 10:08] VITALS: BP 132/88; BMI 31.9
== END ==
PROVIDERS: PCP Family Medicine Adult Medicine; Visit Provider Nurse Practitioner Family
DX: R07.9 Chest pain, unspecified (principal); Z87.891 Personal history of nicotine dependence
CPT/HCPCS: 99214

== ENCOUNTER 2023-11-23 18:26 | Emergency (ER) | payer MEDICARE, MEDICAID, SELFPAY ==
[2023-02-06 10:08] VITALS: BP 132/88; BMI 31.9
[2023-11-23 19:25] VITALS: BP 78/53; PULSE 104; RESP 22; TEMP 36.6; O2SAT 96
--- NOTE | 2023-11-23 19:43 | CTR_ITS ---
PROCEDURE INFORMATION: Exam: CT Abdomen And Pelvis With Contrast Exam date and time: 11/23/2023 8:41 PM Age: 58 years old Clinical indication: Abdominal tenderness and nausea and vomiting; Prior surgery; Surgery date: 6+ months; Surgery type: Hyst; Additional info: Abd pain n/v TECHNIQUE: Imaging protocol: Computed tomography of the abdomen and pelvis with contrast. Radiation optimization: All CT scans at this facility use at least one of these dose optimization techniques: automated exposure control; mA and/or kV adjustment per patient size (includes targeted exams where dose is matched to clinical indication); or iterative reconstruction. Contrast material: OMNI 350; Contrast volume: 100 ml; Contrast route: INTRAVENOUS (IV); COMPARISON: CT abdomen pelvis w con* [id number] 11/03/2023 9:38 PM RADIATION DOSE METRICS: Total DLP (mGy-cm): 748.3 FINDINGS: Liver: Normal. No mass. Gallbladder and bile ducts: Normal. No calcified stones. No ductal dilation. Pancreas: Normal. No ductal dilation. Spleen: Normal. No splenomegaly. Adrenal glands: Normal. No mass. Kidneys and ureters: Hypodense lesions in the left kidney are too small to characterize and are most likely cysts. No follow-up imaging recommended. The kidneys are otherwise unremarkable. No calculus or hydronephrosis. Stomach and bowel: Large posterior duodenal diverticulum. Fluid and food distended stomach. No wall thickening. Large amount of stool and scattered fluid in the colon to the rectum. No wall thickening. The small bowel is unremarkable. No obstruction. Appendix: The appendix is visualized and is normal. Intraperitoneal space: Unremarkable. No free air. No significant fluid collection. Vasculature: Mild calcified arterial plaque. No aneurysm. Lymph nodes: Unremarkable. No enlarged lymph nodes. Urinary bladder: Unremarkable as visualized. Reproductive: Hysterectomy and oophorectomy. Bones/joints: Stable sclerotic density in the T11 vertebral body. No acute fracture. Old right and left rib fractures. Soft tissues: Unremarkable. CT/CT abdomen pelvis w con* [id number] IMPRESSION: 1. No acute findings. 2. Large amount of stool in the colon, consistent with constipation. COMMENTS: Consistent with the [employer]'s Incidental Findings Committee white paper (J Am Lianne Radiol 2018): Any incidental renal lesion less than 1 cm or classified as too small to characterize, or any incidental cystic renal lesion characterized as simple-appearing, is likely benign. No follow-up imaging is recommended for these lesions per consensus recommendations based on imaging criteria.
--- NOTE | 2023-11-23 19:45 | ED_ITS ---
HPI - Abdominal Pain 2 General: Chief Complaint: Abdominal Pain Stated Complaint: ABD PAIN/NAUSEA Time Seen by Provider: 11/23/23 19:31 History of Present Illness: Patient presents to the ER with sudden onset generalized abdominal pain started over an hour ago. It is generalized but feels worse on the left lower quadrant. Patient says she is has a bad gallbladder but is different than this pain. Pain is worse with movement. It is causing nausea vomiting that is sharp and severe. EMS gave her 4 mg Zofran. Upon arrival patient's blood pressure 78/53 with a pulse of 104. Review of Systems 2 General: Reports: 10 or more systems reviewed and unremarkable except in HPI and below PFSH ED 2 PFSH: Medical History Hospital discharge follow-up Former smoker States quit smoking 09/13/2023. 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 Uterine prolapse Prediabetes Chronic bronchitis with COPD (chronic obstructive pulmonary disease) Mixed hyperlipidemia Psychiatric care Osteoarthritis (arthritis due to wear and tear of joints) Chronic pain disorder Right shoulder, bilateral lower extremities Obesity (BMI 30.0-34.9) GERD (gastroesophageal reflux disease) Surgical History Status post bilateral salpingo-oophorectomy (BSO) S/P laparoscopic assisted vaginal hysterectomy (LAVH) Family History Other CAD (coronary artery disease) Hypertension Social History Substance/Drug Use: never Do you think of yourself as: Straight/Heterosexual Female Reproductive History: Para: 2 Physical Exam 2 Const: COMMON NORMALS: no acute distress, average body habitus, patient oriented x3, no limitations, healthy appearing, alert and well nourished HENMT: COMMON NORMALS: normocephalic, atraumatic, hearing grossly normal bilaterally, external ears normal, Normal external nose present, moist oral mucous membranes and oropharynx normal HEAD & SCALP: normocephalic and atraumatic NOSE: Normal external nose present EXTERNAL EAR: Yes external ears normal Neck/C-Spine: COMMON NORMALS: no JVD Chest: COMMONS NORMALS: normal inspection of the chest and normal palpation of entire chest wall Resp: COMMON NORMALS: normal respiratory effort, No retractions, No use of accessory muscles and clear to auscultation bilaterally AUSCULTATION: clear to auscultation bilaterally Cardio: COMMON NORMALS: no JVD, regular rate, regular rhythm, S1 normal heart sound present, S2 normal heart sound present, No gallops present (Cardio), No clicks present (Cardio), No murmurs present (Cardio) and No rub (Cardio) R ATE: regular rate RHYTHM: regular rhythm HEART SOUNDS: S1 normal heart sound present and S2 normal heart sound present GI: COMMON NORMALS: Normal to inspection, nondistended, normoactive bowel sounds present, Soft to palpation, No hepatosplenomegaly present and no masses; negative for non-tender (Diffusely tender) PALPATION: Yes Soft to palpation and Yes No hepatosplenomegaly present Neuro: COMMON NORMALS: patient oriented x3 SENSORIUM/ORIENTATION: Yes alert Course 2 Vital Signs: Vital signs: Vital Signs Temperature 97.9 F 11/23/23 19:25 Pulse Rate 107 H 11/23/23 20:03 Respiratory Rate 18 11/23/23 20:21 Blood Pressure 97/76 11/23/23 20:03 Pulse Oximetry 98 11/23/23 20:03 Oxygen Delivery Me thod Room Air 11/23/23 19:25 MDM - Abdominal Pain Medical Decision Making Patient lab work which essentially unremarkable, mildly elevated lipase, CT scan of the abdomen pelvis showed no acute findings except a large amount of stool consistent with constipation. Patient be discharged to use [id number] mag citrate and follow-up with her PCP. Differential Diagnosis Likely abdominal pain; Unlikely acute appendicitis, calculus of kidney, constipation, diverticulitis, endometriosis, gastroenteritis, pancreatitis or small bowel obstruction Medical Records I reviewed the patient's medical records. Lab Data I reviewed the patient's lab results. 11/23/23 18:14 11/23/23 18:14 Labs/Radiology: Radiology Impressions Abdomen/Pelvis CT 11/23/23 19:43 IMPRESSION: 1. No acute findings. 2. Large amount of stool in the colon, consistent with constipation. COMMENTS: Consistent with the [employer]'s Incidental Findings Committee white paper (J Am Lianne Radiol 2018): Any incidental renal lesion less than 1 cm or classified as too small to characterize, or any incidental cystic renal lesion characterized as simple-appearing, is likely benign. No follow-up imaging is recommended for these lesions per consensus recommendations based on imaging criteria. Laboratory Results WBC 11.77 10^3/uL (3.29-11.43) H 11/23/23 18:14 RBC 4.47 10^6/uL (3.85-5.65) 11/23/23 18:14 Hgb 13.70 g/dL (11.27-16.99) 11/23/23 18:14 Hct 41.7 % (36-47) 11/23/23 18:14 MCV 93.3 fl (85-98) 11/23/23 18:14 MCH 30.6 pg (27-33) 11/23/23 18:14 MCHC 32.9 g/dL (30-55) 11/23/23 18:14 RDW 14.6 % (12.1-15.1) 11/23/23 18:14 Plt Count 344 10^3/cmm (157-399) 11/23/23 18:14 MPV 9.7 fL (7.4-10.4) 11/23/23 18:14 Neut % (Auto) 67.8 % 11/23/23 18:14 Lymph % (Auto) 25.3 % 11/23/23 18:14 [place] % (Auto) 5.6 % 11/23/23 18:14 Eos % (Auto) 0.3 % 11/23/23 18:14 Baso % (Auto) 0.2 % 11/23/23 18:14 Neut # (Auto) 7.98 10^3/uL (1.8-7.7) H 11/23/23 18:14 Lymph # (Auto) 3.0 10^3/uL (0.8-4.8) 11/23/23 18:14 [place] # (Auto) 0.7 10^3/uL (0.2-0.9) 11/23/23 18:14 Eos # (Auto) 0.0 10^3/uL (0.0-0.8) 11/23/23 18:14 Baso # (Auto) 0.0 10^3/uL (0.0-0.1) 11/23/23 18:14 Nucleated RBC % (auto) 0 % 11/23/23 18:14 Nucleated RBCs # 0.0 /100WBC 11/23/23 18:14 Sodium 137 mmol/L (136-145) 11/23/23 18:14 Potassium 4.2 mmol/L (3.5-5.1) 11/23/23 18:14 Chloride 101 mmol/L (98-107) 11/23/23 18:14 Carbon Dioxide 24 mmol/L (22-29) 11/23/23 18:14 Anion Gap 16.2 (5-19) 11/23/23 18:14 BUN 13 mg/dL (6-20) 11/23/23 18:14 Creatinine 0.7 mg/dL (0.5-0.9) 11/23/23 18:14 GFR Calculation 85.6 mL/min (90-130) L 11/23/23 18:14 Glucose 91 mg/dL (65-115) 11/23/23 18:14 Calculated Osmolality 284 mOsm/kg (285-295) L 11/23/23 18:14 Lactic Acid 1.2 mmol/L (0.5-2.2) 11/23/23 18:14 Calcium 9.2 mg/dL (8.5-10.5) 11/23/23 18:14 Total Bilirubin 0.2 mg/dL (0.15-1.2) 11/23/23 18:14 AST 30 U/L (0-32) 11/23/23 18:14 ALT 38 U/L (0-33) H 11/23/23 18:14 Alkaline Phosphatase 149 U/L (35-105) H 11/23/23 18:14 Total Protein 7.5 g/dL (6.6-8.7) 11/23/23 18:14 Albumin 4.4 g/dL (3.5-5.2) 11/23/23 18:14 Globulin 3.1 g/dL (1.3-4.6) 11/23/23 18:14 Lipase 79 U/L (13-60) H 11/23/23 18:14 Procalcitonin 0.04 ng/mL (0-0.5) 11/23/23 18:14 Urine Color Yellow (Yellow) 11/23/23 20:52 Urine Appearance Clear (CLEAR) 11/23/23 20:52 Urine pH 5 (5-7) 11/23/23 20:52 Ur Specific [place] 1.015 (1.005-1.030) 11/23/23 20:52 Urine Protein Neg (Negative) 11/23/23 20:52 Urine Glucose (UA) Norm (Normal) 11/23/23 20:52 Urine Ketones Negative (Negative) 11/23/23 20:52 Urine Blood Neg (Negative) 11/23/23 20:52 Urine Nitrate Negative (Negative) 11/23/23 20:52 Urine Bilirubin 2+ (Negative) H 11/23/23 20:52 Urine Urobilinogen 1 mg/dL (Negative) H 11/23/23 20:52 Ur Leukocyte Esterase Negative (Negative) 11/23/23 20:52 All radiology interpretation(s) finalized by discharge Discharge Plan Discharge Patient Disposition: Home Clinical Impression: Acute generalized abdominal pain Constipation Qualifiers: Constipation type: unspecified constipation type Qualified Code(s): K59.00 - Constipation, unspecified Condition: Stable Prescriptions: No Action (DME) walker with seat See Rx Instructions .Route .MEDSUPPLY Qty: 1 0RF Rx Instructions: As directed lorazepam 1 mg tablet 1 mg PO BID Qty: 60 5RF tramadol 50 mg tablet 50 mg PO BID PRN (Reason: pain) 30 Days Qty: 60 1RF montelukast [Singulair] 10 mg tablet 10 mg PO QAM Qty: 90 1RF clozapine [Clozaril] 100 mg tablet See Rx Instructions PO .COMPLEX Qty: 150 11RF Rx Instructions: Take two tablets in the morning and 3 tablets at night. clozapine 50 mg tablet 50 mg PO BID Qty: 60 11RF benztropine 1 mg tablet 1 mg PO BID Qty: 60 11RF mirtazapine 45 mg tablet 45 mg PO BEDTIME Qty: 30 11RF oxybutynin chloride 15 mg tablet extended release 24hr 15 mg PO BEDTIME Qty: 90 1RF citalopram [Celexa] 40 mg tablet 40 mg PO QAM Qty: 30 11RF gabapentin 300 mg capsule 300 mg PO Q8H Qty: 30 0RF atorvastatin 20 mg tablet 20 mg PO QAM acetaminophen 500 mg Tablet 500 - 1,000 mg PO Q6H PRN (Reason: Pain) dexlansoprazole 60 mg capsule,biphase delayed releas 60 mg PO DAILY fluticasone propionate 50 mcg/actuation spray,suspension 1 spray intranasal BID albuterol sulfate [ProAir HFA] 90 mcg/actuation HFA aerosol inhaler 2 puff inhalation Q4H PRN (Reason: shortness of breath or wheezing) Qty: 17 2RF budesonide-formoterol [Symbicort] 160-4.5 mcg/actuation HFA aerosol inhaler 2 puff inhalation BID Qty: 10.2 3RF meloxicam 7.5 mg tablet 7.5 mg PO BID PRN (Reason: INFLAMATION AND PAIN.) baclofen 10 mg tablet 10 mg PO BID PRN (Reason: Pain) Discharge Orders: Discharge ED (Routine); Ordered 11/23/23 Ordered By: Jun Patton Referrals: Evans Olvera MD [Primary Care Provider] - 1 week Patient Instructions: Abdominal Pain (ED), Constipation (ED) Activity Restrictions/Additional Instructions: Your CT scan showed you are constipated. Please go home and get 1 bottle of mag citrate and drink in his entirety as it should produce results. Please follow- up with your family proximal physician within next 7 days for further evaluation and treatment. Coding Level of Care Code ED Risk Management Director for 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
[2023-11-23 20:02] LABS: Basophils % 0.2 %; Eosinophils % 0.3 %; Hematocrit 41.7 % (36-47); Lymphocytes % 25.3 %; Mean Corpuscular HGB Conc 32.9 g/dL (30-55); Mean Corpuscular Hemoglobin 30.6 pg (27-33); Mean Corpuscular Volume 93.3 fl (85-98); Mean Platelet Volume 9.7 fL (7.4-10.4); Monocytes # 0.7 10^3/uL (0.2-0.9); Monocytes % 5.6 %; Neutrophils # 7.98 10^3/uL (1.8-7.7); Neutrophils % 67.8 %; Nucleated Red Blood Cells % 0 %; Platelet Count 344 10^3/cmm (157-399); Red Blood Count 4.47 10^6/uL (3.85-5.65); Red Cell Distribution Width 14.6 % (12.1-15.1); White Blood Count 11.77 10^3/uL (3.29-11.43)
[2023-11-23 20:03] VITALS: BP 97/76; PULSE 107; RESP 15; O2SAT 98
[2023-11-23 20:21] VITALS: RESP 18
[2023-11-23] MEDS: morphine 4 mg/mL SDV 1 mL IVP (20:21)
[2023-11-23] MEDS: ondansetron 2 mg/ML SDV 2 mL 4 MG IVP (20:21)
[2023-11-23] MEDS: sodium chloride 0.9% 1,000 ML 999 ML IV (20:21)
[2023-11-23 20:22] LABS: Alanine Aminotransferase 38 U/L (0-33); Albumin Level 4.4 g/dL (3.5-5.2); Alkaline Phosphatase 149 U/L (35-105); Anion Gap 16.2 (5-19); Aspartate Amino Transferase 30 U/L (0-32); Blood Urea Nitrogen 13 mg/dL (6-20); Calcium 9.2 mg/dL (8.5-10.5); Carbon Dioxide 24 mmol/L (22-29); Chloride 101 mmol/L (98-107); Globulin 3.1 g/dL (1.3-4.6); Glomerular Filtration Rate 85.6 mL/min (90-130); Glucose 91 mg/dL (65-115); Lipase 79 U/L (13-60); Osmolality Calculated 284 mOsm/kg (285-295); Potassium 4.2 mmol/L (3.5-5.1); Sodium 137 mmol/L (136-145); Total Bilirubin 0.2 mg/dL (0.15-1.2); Total Protein 7.5 g/dL (6.6-8.7)
[2023-11-23 20:23] LABS: Lactic Sepsis W/Reflex 1.2 mmol/L (0.5-2.2)
[2023-11-23 20:29] LABS: Procalcitonin 0.04 ng/mL (0-0.5)
[2023-11-23] MEDS: iohexol 350 mg/mL 500 mL Btl (per mL) IV (20:44)
[2023-11-23 20:57] LABS: Add Urine Microscopic? NO; Blood Urine Neg (Negative); Glucose Urine UA Norm (Normal); Ketones Urine Negative (Negative); Nitrate Urine Negative (Negative); Protein Urine Neg (Negative); Specific Gravity, Urine 1.015 (1.005-1.030); Urine Appearance Clear (CLEAR); Urine Color Yellow (Yellow); pH Urine 5 (5-7)
[2023-11-23 20:58] LABS: Bilirubin Urine 2+ (Negative); Charge for UA Resulting for Rev; Leukocyte Esterase Urine Negative (Negative); Urobilinogen Urine 1 mg/dL (Negative)
[2023-11-23 21:51] VITALS: BP 147/95; PULSE 74; RESP 18; O2SAT 94
== END 2023-11-23 21:52 | disposition home or self-care (01) ==
PROVIDERS: Emergency Provider Emergency Medicine; PCP Family Medicine Adult Medicine
DX: R10.84 Generalized abdominal pain (principal); K59.00 Constipation, unspecified; J44.9 Chronic obstructive pulmonary disease, unspecified; E78.2 Mixed hyperlipidemia
CPT/HCPCS: 74177; 80053; 81003; 83605; 83690; 84145; 85025; 96374; 96375; 99285; J2270; J2405; J7030; Q9967

== ENCOUNTER → 2023-12-05 13:41 | Outpatient (BNVA) | payer MEDICARE, MEDICAID, SELFPAY ==
[2023-02-06 10:08] VITALS: BP 132/88; BMI 31.9
== END ==
PROVIDERS: PCP Family Medicine Adult Medicine; Visit Provider Psychiatry & Neurology Psychiatry
DX: F20.89 Other schizophrenia (principal); Z79.899 Other long term (current) drug therapy
CPT/HCPCS: 85007; 85027

== ENCOUNTER 2023-12-12 17:21 | Emergency (ER) | payer MEDICARE, MEDICAID, SELFPAY ==
[2023-02-06 10:08] VITALS: BP 132/88; BMI 31.9
[2023-12-12 17:23] VITALS: BP 128/85; PULSE 104; TEMP 37.1; O2SAT 95
--- NOTE | 2023-12-12 17:51 | W.ED.PSYCHS ---
HPI - Psych General: Chief Complaint: Psychiatric Symptoms Stated Complaint: Stress Time Seen by Provider: 12/12/23 17:25 Source: patient and EMS Mode of arrival: EMS Limitations: no limitations History of Present Illness: 58-year-old female who states that she is just been under a lot of stress and has been feeling stressed out she denies any SI or HI states she has felt anxious. Patient denies any worsening improving factors. She has been seen here for the same in the past. She is not out of any of her meds. Review of Systems Const: Denies: fever(s), chills, body aches or change in appetite Eyes: Denies: eye discomfort ENMT: Denies: throat pain or dental pain Card: Denies: chest pain Resp: Denies: dyspnea GI: Denies: abdominal pain, nausea, vomiting or diarrhea Musc: Denies: neck pain or back pain Skin/Breast: Denies: rash Neuro: Denies: headache(s) PFSH ED PFSH: Medical History Hospital discharge follow-up Former smoker States quit smoking 09/13/2023. 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 Uterine prolapse Prediabetes Chronic bronchitis with COPD (chronic obstructive pulmonary disease) Mixed hyperlipidemia Psychiatric care Osteoarthritis (arthritis due to wear and tear of joints) Chronic pain disorder Right shoulder, bilateral lower extremities Obesity (BMI 30.0-34.9) GERD (gastroesophageal reflux disease) Surgical History Status post bilateral salpingo-oophorectomy (BSO) S/P laparoscopic assisted vaginal hysterectomy (LAVH) Family History Other CAD (coronary artery disease) Hypertension Social History Smoking and tobacco/nicotine status: current every day tobacco/nicotine user Substance/Drug Use: never Do you think of yourself as: Straight/Heterosexual Female Reproductive History: Para: 2 Physical Exam Const: COMMON NORMALS: no acute distress, patient oriented x3 and healthy appearing HENMT: COMMON NORMALS: normocephalic and atraumatic HEAD & SCALP: normocephalic and atraumatic Neck/C-Spine: COMMON NORMALS: full ROM and supple Chest: COMMONS NORMALS: normal inspection of the chest Resp: COMMON NORMALS: normal respiratory effort Cardio: COMMON NORMALS: regular rate, regular rhythm and No murmurs present (Cardio) RATE: regular rate RHYTHM: regular rhythm Extremity: COMMON NORMALS: normal to inspection and full ROM Neuro: COMMON NORMALS: patient oriented x3, moves all extremities and no focal motor deficits Psych: COMMON NORMALS: mental status grossly normal, Normal thought process present and cooperative THOUGHT PROCESS: Normal thought process present Skin: COMMON NORMALS: no rashes or lesions noted and no wounds GENERAL SKIN EXAM: no rashes or lesions noted Course Vital Signs: Vital signs: Vital Signs Temperature 98.7 F 12/12/23 17:23 Pulse Rate 104 H 12/12/23 17:23 Blood Pressure 128/85 12/12/23 17:23 Pulse Oximetry 95 12/12/23 17:23 Oxygen Delivery Me thod Room Air 12/12/23 17:23 MDM - Psych Medical Decision Making Patient presents here with generalized stress she denies any suicidal homicidal ideations. She stated that she went to be voluntarily admitted but since changed her mind she states that she did rather just go home she is not actively suicidal or homicidal is no reason to be placed her 96-hour hold I did give her the information to the crisis stabilization unit and told her she can follow-up with her she is also follow-up with her PCP return if worsening she understands agrees to plan Medical Records I reviewed the patient's medical records. All radiology interpretation(s) finalized by discharge Discharge Plan Discharge Patient Disposition: Home Clinical Impression: Stress Condition: Stable Prescriptions: No Action (DME) walker with seat See Rx Instructions .Route .MEDSUPPLY Qty: 1 0RF Rx Instructions: As directed lorazepam 1 mg tablet 1 mg PO BID Qty: 60 5RF tramadol 50 mg tablet 50 mg PO BID PRN (Reason: pain) 30 Days Qty: 60 2RF montelukast [Singulair] 10 mg tablet 10 mg PO QAM Qty: 90 1RF clozapine [Clozaril] 100 mg tablet See Rx Instructions PO .COMPLEX Qty: 150 11RF Rx Instructions: Take two tablets in the morning and 3 tablets at night. clozapine 50 mg tablet 50 mg PO BID Qty: 60 11RF benztropine 1 mg tablet 1 mg PO BID Qty: 60 11RF mirtazapine 45 mg tablet 45 mg PO BEDTIME Qty: 30 11RF oxybutynin chloride 15 mg tablet extended release 24hr 15 mg PO BEDTIME Qty: 90 1RF citalopram [Celexa] 40 mg tablet 40 mg PO QAM Qty: 30 11RF gabapentin 300 mg capsule 300 mg PO Q8H Qty: 30 0RF meloxicam 7.5 mg tablet 7.5 mg PO BID PRN (Reason: INFLAMATION AND PAIN.) Qty: 60 2RF atorvastatin 20 mg tablet 20 mg PO QAM acetaminophen 500 mg Tablet 500 - 1,000 mg PO Q6H PRN (Reason: Pain) dexlansoprazole 60 mg capsule,biphase delayed releas 60 mg PO DAILY fluticasone propionate 50 mcg/actuation spray,suspension 1 spray intranasal BID albuterol sulfate [ProAir HFA] 90 mcg/actuation HFA aerosol inhaler 2 puff inhalation Q4H PRN (Reason: shortness of breath or wheezing) Qty: 17 2RF budesonide-formoterol [Symbicort] 160-4.5 mcg/actuation HFA aerosol inhaler 2 puff inhalation BID Qty: 10.2 3RF baclofen 10 mg tablet 10 mg PO BID PRN (Reason: Pain) Discharge Orders: Discharge ED (Routine); Ordered 12/12/23 Ordered By: Kade Smith Referrals: Evans Olvera MD [Primary Care Provider] - Discharge Diet: Advance as tolerated Discharge Activity: Resume usual activity Patient Instructions: Stress (ED) Coding Level of Care Code ED Visiting Housekeeper for 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
== END 2023-12-12 17:50 | disposition home or self-care (01) ==
PROVIDERS: Emergency Provider Emergency Medicine; PCP Family Medicine Adult Medicine
DX: F43.9 Reaction to severe stress, unspecified (principal); Z72.0 Tobacco use; J44.9 Chronic obstructive pulmonary disease, unspecified; E78.2 Mixed hyperlipidemia
CPT/HCPCS: 99283

== ENCOUNTER → 2023-12-19 18:40 | Outpatient (BNVA) | payer MEDICARE, MEDICAID, SELFPAY ==
[2023-02-06 10:08] VITALS: BP 132/88; BMI 31.9
== END ==
PROVIDERS: PCP Family Medicine Adult Medicine; Visit Provider Nurse Practitioner
DX: R39.9 Unspecified symptoms and signs involving the genitourinary system (principal)
CPT/HCPCS: 81000

== ENCOUNTER → 2024-01-04 10:17 | Outpatient (BNVA) | payer MEDICARE, MEDICAID, SELFPAY ==
[2023-02-06 10:08] VITALS: BP 132/88; BMI 31.9
== END ==
PROVIDERS: PCP Family Medicine Adult Medicine; Visit Provider Psychiatry & Neurology Psychiatry
DX: F20.89 Other schizophrenia (principal); Z79.899 Other long term (current) drug therapy
CPT/HCPCS: 85007; 85027

== ENCOUNTER → 2024-01-29 11:40 | Outpatient (BNVA) | payer MEDICAID, SELFPAY ==
[2023-02-06 10:08] VITALS: BP 132/88; BMI 31.9
== END ==
PROVIDERS: PCP Family Medicine Adult Medicine; Visit Provider Psychiatry & Neurology Psychiatry
DX: F20.89 Other schizophrenia (principal); Z79.899 Other long term (current) drug therapy
CPT/HCPCS: 85007; 85027

== ENCOUNTER 2024-03-01 07:35 | Emergency (ER) | payer MEDICAID, SELFPAY ==
[2023-02-06 10:08] VITALS: BP 132/88; BMI 31.9
[2024-03-01 07:36] VITALS: BP 162/100; PULSE 97; TEMP 36.7; O2SAT 96; BMI 30.5
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
[2024-03-01 08:24] LABS: Basophils % 0.1 %; Hematocrit 39.3 % (36-47); Lymphocytes # 1.4 10^3/uL (0.8-4.8); Lymphocytes % 13.6 %; Mean Corpuscular HGB Conc 31.8 g/dL (30-55); Mean Corpuscular Hemoglobin 29.7 pg (27-33); Mean Corpuscular Volume 93.3 fl (85-98); Mean Platelet Volume 9.4 fL (7.4-10.4); Monocytes # 0.7 10^3/uL (0.2-0.9); Monocytes % 7.1 %; Neutrophils # 8.15 10^3/uL (1.8-7.7); Neutrophils % 78.8 %; Nucleated Red Blood Cells % 0 %; Platelet Count 267 10^3/cmm (157-399); Red Blood Count 4.21 10^6/uL (3.85-5.65); Red Cell Distribution Width 13.8 % (12.1-15.1); White Blood Count 10.35 10^3/uL (3.29-11.43)
[2024-03-01 08:29] LABS: Charge for UA Resulting for Rev
[2024-03-01 08:32] LABS: Bilirubin Urine Negative (Negative); Blood Urine Negative (Negative); Glucose Urine UA Negative (Normal); Ketones Urine Negative (Negative); Leukocyte Esterase Urine Negative (Negative); Nitrate Urine Negative (Negative); Protein Urine Negative (Negative); Specific Gravity, Urine 1.015 (1.005-1.030); Urine Appearance Clear (CLEAR); Urine Color Yellow (Yellow)
[2024-03-01 08:40] LABS: Alanine Aminotransferase 43 U/L (0-33); Albumin Level 4.2 g/dL (3.5-5.2); Alkaline Phosphatase 145 U/L (35-105); Anion Gap 17.7 (5-19); Aspartate Amino Transferase 24 U/L (0-32); Blood Urea Nitrogen 8 mg/dL (6-20); Calcium 9.1 mg/dL (8.5-10.5); Carbon Dioxide 24 mmol/L (22-29); Chloride 105 mmol/L (98-107); Creatinine Clr Calc Pharmacy 96.1988; Globulin 2.8 g/dL (1.3-4.6); Glomerular Filtration Rate 102.3 mL/min (90-130); Glucose 133 mg/dL (65-115); Osmolality Calculated 294 mOsm/kg (285-295); Potassium 4.7 mmol/L (3.5-5.1); Sodium 142 mmol/L (136-145); Total Bilirubin 0.3 mg/dL (0.15-1.2)
[2024-03-01 08:40] LABS: Bacteria Urine None Seen /hpf; RBC Urine 0-2 /hpf (0-2); WBC Urine 0-5 /hpf (0-5)
== END 2024-03-01 08:53 | disposition home or self-care (01) ==
PROVIDERS: Emergency Provider Family Medicine; PCP Family Medicine Adult Medicine
DX: F20.89 Other schizophrenia (principal); G89.29 Other chronic pain; M54.50 Low back pain, unspecified; Z72.0 Tobacco use; J44.9 Chronic obstructive pulmonary disease, unspecified; E78.2 Mixed hyperlipidemia
CPT/HCPCS: 36415; 80053; 81003; 81015; 85025; 99283

== ENCOUNTER 2024-03-01 15:49 | Emergency (ER) | payer MEDICAID, SELFPAY ==
[2023-02-06 10:08] VITALS: BP 132/88; BMI 31.9
[2024-03-01 16:24] VITALS: BP 108/77; PULSE 99; RESP 17; TEMP 36.6; O2SAT 95; BMI 30.9
--- NOTE | 2024-03-01 17:32 | W.ED.NECK ---
HPI - Neck Pain/Injury General: Chief Complaint: Neck Pain/Injury Stated Complaint: NECK PAIN Time Seen by Provider: 03/01/24 16:07 History of Present Illness: 58-year-old female patient seen this morning for same complaint. She is back again wanting refills on her medications reviewed reviewed her chart earlier today and her medications have been filled within the last 30 days. Particularly she is requesting gabapentin clozapine Ativan and tramadol. Related Data Home Medications Medication Instructions Recorded Confirmed acetaminophen 500 mg tablet 500 - 1,000 mg PO Q6H PRN Pain 07/29/23 02/01/24 Previous Rx's Medication Instructions Recorded mirtazapine 45 mg tablet 45 mg PO BEDTIME #30 tabs 05/21/23 walker with seat #1 ea 08/25/23 citalopram 40 mg tablet (Celexa) 40 mg PO QAM #30 tabs 09/26/23 benztropine 1 mg tablet 1 mg PO BID #60 tabs 10/23/23 clozapine 100 mg tablet (Clozaril) See Rx Instructions PO .COMPLEX 10/23/23 #150 tabs clozapine 50 mg tablet 50 mg PO BID #60 tabs 10/23/23 lorazepam 1 mg tablet 1 mg PO BID #60 tabs 11/06/23 oxybutynin chloride 15 mg 15 mg PO BEDTIME #90 tabs 12/26/23 tablet,extended release 24 hr budesonide-formoterol HFA 160 2 puff inhalation BID #10.2 grams 01/22/24 mcg-4.5 mcg/actuation aerosol inhaler (Symbicort) albuterol sulfate 90 mcg/actuation 2 puff inhalation Q4H PRN 01/29/24 aerosol inhaler (ProAir HFA) shortness of breath or wheezing #17 grams baclofen 10 mg tablet 10 mg PO BID PRN Pain #30 tabs 01/29/24 dexlansoprazole 60 mg See Rx Instructions .Route 01/29/24 capsule,biphase delayed release .COMPLEX #90 caps fluticasone propionate 50 See Rx Instructions .Route 01/29/24 mcg/actuation nasal .COMPLEX #48 mL spray,suspension atorvastatin 20 mg tablet 20 mg PO QAM #90 tabs 01/31/24 gabapentin 300 mg capsule 300 mg PO Q8H chronic pain 30 days 02/01/24 #90 caps meloxicam 7.5 mg tablet 7.5 mg PO BID PRN INFLAMATION AND 02/01/24 PAIN. #60 tabs montelukast 10 mg tablet 10 mg PO QAM #90 tabs 02/01/24 (Singulair) tramadol 50 mg tablet 50 mg PO BID PRN pain 30 days #60 02/01/24 tabs clozapine 50 mg tablet 50 mg PO BID #3 tabs 03/01/24 gabapentin 300 mg capsule 300 mg PO TID #5 caps 03/01/24 Allergies Allergy/AdvReac Type Severity Reaction Status Date / Time ibuprofen Allergy Mild ALGY-Rash Verified 03/01/24 16:28 Review of Systems Musc: Reports: neck pain PFSH ED PFSH: Medical History Anxiety disorder due to general medical condition with panic attack Hypoxemia COPD exacerbation Pain management contract agreement Tremor 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, severe, 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 Uterine prolapse Prediabetes Chronic bronchitis with COPD (chronic obstructive pulmonary disease) Mixed hyperlipidemia Psychiatric care Osteoarthritis (arthritis due to wear and tear of joints) Chronic pain disorder Right shoulder, bilateral lower extremities Obesity (BMI 30.0-34.9) GERD (gastroesophageal reflux disease) Surgical History Status post bilateral salpingo-oophorectomy (BSO) S/P laparoscopic assisted vaginal hysterectomy (LAVH) Family History Other CAD (coronary artery disease) Hypertension Social History Smoking and tobacco/nicotine status: current every day tobacco/nicotine user Substance/Drug Use: never Do you think of yourself as: Straight/Heterosexual Female Reproductive History: Para: 2 Physical Exam Const: ORIENTATION/CONSCIOUSNESS: Yes awake, Yes oriented to person, Yes oriented to place and Yes oriented to time HENMT: COMMON NORMALS: normocephalic, atraumatic and hearing grossly normal bilaterally HEAD & SCALP: normocephalic and atraumatic Resp: COMMON NORMALS: normal respiratory effort, No retractions, No use of accessory muscles and clear to auscultation bilaterally AUSCULTATION: clear to auscultation bilaterally Cardio: COMMON NORMALS: regular rate, regular rhythm and No murmurs present (Cardio) RATE: regular rate RHYTHM: regular rhythm Extremity: COMMON NORMALS: normal to inspection, capillary refill normal, no clubbing, cyanosis or edema, no calf tenderness and no pedal edema Neuro: SENSORIUM/ORIENTATION: Yes oriented to person, Yes oriented to place and Yes oriented to time Skin: COMMON NORMALS: no rashes or lesions noted GENERAL SKIN EXAM: no rashes or lesions noted Course Vital Signs: Vital signs: Vital Signs Temperature 98 F 03/01/24 16:24 Pulse Rate 99 03/01/24 16:24 Respiratory Rate 17 03/01/24 16:24 Blood Pressure 108/77 03/01/24 16:24 Pulse Oximetry 95 03/01/24 16:24 Oxygen Delivery Me thod Room Air 03/01/24 16:24 MDM - Neck Pain/Injury Medical Decision Making Patient was here earlier requesting Ativan close discussed with emergency room as she does still have meloxicam left. She is not homicidal or suicidal she is not acutely psychotic not having any auditory visual hallucinations. We had seen her earlier but did not refill the prescription because she has been filled within the last 30 days at home believe should be able to get them filled anyway. She cannot tell me what happened to her other medications. She is insistent that she has been taking them regularly. We did try to get her set up to the crisis stabilization unit however they were no longer open. Patient was seen in vertical flow and left vertical flow without notifying the nurse she is frustrated because she has not had her tramadol refilled. No radiology studies performed this visit Discharge Plan Discharge Patient Disposition: Home Clinical Impression: Schizophrenia Qualifiers: Schizophrenia type: other Qualified Code(s): F20.89 - Other schizophrenia Condition: Stable Prescriptions: New clozapine 50 mg tablet 50 mg PO BID Qty: 3 0RF gabapentin 300 mg capsule 300 mg PO TID Qty: 5 0RF No Action (DME) walker with seat See Rx Instructions .Route .MEDSUPPLY Qty: 1 0RF Rx Instructions: As directed lorazepam 1 mg tablet 1 mg PO BID Qty: 60 5RF gabapentin 300 mg capsule 300 mg PO Q8H 30 Days Qty: 90 3RF meloxicam 7.5 mg tablet 7.5 mg PO BID PRN (Reason: INFLAMATION AND PAIN.) Qty: 60 2RF montelukast [Singulair] 10 mg tablet 10 mg PO QAM Qty: 90 1RF tramadol 50 mg tablet 50 mg PO BID PRN (Reason: pain) 30 Days Qty: 60 2RF clozapine [Clozaril] 100 mg tablet See Rx Instructions PO .COMPLEX Qty: 150 11RF Rx Instructions: Take two tablets in the morning and 3 tablets at night. clozapine 50 mg tablet 50 mg PO BID Qty: 60 11RF benztropine 1 mg tablet 1 mg PO BID Qty: 60 11RF mirtazapine 45 mg tablet 45 mg PO BEDTIME Qty: 30 11RF citalopram [Celexa] 40 mg tablet 40 mg PO QAM Qty: 30 11RF oxybutynin chloride 15 mg tablet extended release 24hr 15 mg PO BEDTIME Qty: 90 1RF budesonide-formoterol [Symbicort] 160-4.5 mcg/actuation HFA aerosol inhaler 2 puff inhalation BID Qty: 10.2 3RF albuterol sulfate [ProAir HFA] 90 mcg/actuation HFA aerosol inhaler 2 puff inhalation Q4H PRN (Reason: shortness of breath or wheezing) Qty: 17 2RF baclofen 10 mg tablet 10 mg PO BID PRN (Reason: Pain) Qty: 30 0RF fluticasone propionate 50 mcg/actuation spray,suspension See Rx Instructions .ROUTE .COMPLEX Qty: 48 1RF Dose Instruction: USE 1 SPRAY IN EACH NOSTRIL TWICE DAILY Rx Instructions: USE 1 SPRAY IN EACH NOSTRIL TWICE DAILY dexlansoprazole 60 mg capsule,biphase delayed releas See Rx Instructions .ROUTE .COMPLEX Qty: 90 2RF Dose Instruction: TAKE 1 CAPSULE BY MOUTH EVERY DAY NEEDED FOR ACID REFLUX Rx Instructions: TAKE 1 CAPSULE BY MOUTH EVERY DAY NEEDED FOR ACID REFLUX atorvastatin 20 mg tablet 20 mg PO QAM Qty: 90 3RF acetaminophen 500 mg Tablet 500 - 1,000 mg PO Q6H PRN (Reason: Pain) Discharge Orders: Discharge ED (Routine); Ordered 03/01/24 Ordered By: Cesar Neil Referrals: Evans Olvera MD [Primary Care Provider] - Discharge Diet: Usual diet Discharge Activity: Increase activity as tolerated Patient Instructions: Opioid Safety, Pain Management Activity Restrictions/Additional Instructions: You were seen reporting that your medicines had run out. According to pharmacy records you still should have enough of your medications particular the ones that you had asked about the closet pain Ativan gabapentin and tramadol. Because you are in a pain contract we cannot fill narcotics. We also did not feel regularly scheduled benzodiazepines in the emergency room. We did give you prescription for 3 tablets of clozapine and 5 tablets of gabapentin this should get you through until Sunday when you should call your primary physicians and make arrangements for further medication. Coding Level of Care Code ED Embedded Systems Engineer for 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
== END 2024-03-01 17:52 | disposition home or self-care (01) ==
PROVIDERS: Emergency Provider Family Medicine; PCP Family Medicine Adult Medicine
DX: F20.89 Other schizophrenia (principal); Z72.0 Tobacco use; J44.9 Chronic obstructive pulmonary disease, unspecified; E78.2 Mixed hyperlipidemia
CPT/HCPCS: 99283

== ENCOUNTER → 2024-03-11 12:52 | Outpatient (BNVA) | payer OTHER, SELFPAY ==
[2023-02-06 10:08] VITALS: BP 132/88; BMI 31.9
== END ==
PROVIDERS: PCP Family Medicine Adult Medicine; Visit Provider Psychiatry & Neurology Psychiatry
DX: F20.89 Other schizophrenia (principal)
CPT/HCPCS: 85007; 85027

== ENCOUNTER 2024-03-23 16:13 | Emergency (ER) | payer MEDICARE, MEDICAID, SELFPAY ==
[2023-02-06 10:08] VITALS: BP 132/88; BMI 31.9
[2024-03-23 17:34] VITALS: BP 97/68; PULSE 105; RESP 18; TEMP 36.6; O2SAT 96; BMI 31.1
[2024-03-23 18:24] LABS: Basophils % 0.1 %; Eosinophils % 0.1 %; Hematocrit 38.7 % (36-47); Lymphocytes # 2.6 10^3/uL (0.8-4.8); Lymphocytes % 18.6 %; Mean Corpuscular HGB Conc 32.8 g/dL (30-55); Mean Corpuscular Hemoglobin 30.6 pg (27-33); Mean Corpuscular Volume 93.3 fl (85-98); Mean Platelet Volume 9.4 fL (7.4-10.4); Monocytes # 1.2 10^3/uL (0.2-0.9); Monocytes % 8.5 %; Neutrophils # 10.03 10^3/uL (1.8-7.7); Neutrophils % 72.1 %; Nucleated Red Blood Cells % 0 %; Platelet Count 269 10^3/cmm (157-399); Red Blood Count 4.15 10^6/uL (3.85-5.65); Red Cell Distribution Width 13.6 % (12.1-15.1)
[2024-03-23 18:47] LABS: Alanine Aminotransferase 34 U/L (0-33); Albumin Level 4.3 g/dL (3.5-5.2); Alkaline Phosphatase 147 U/L (35-105); Anion Gap 19.5 (5-19); Aspartate Amino Transferase 22 U/L (0-32); Blood Urea Nitrogen 17 mg/dL (6-20); Calcium 9.1 mg/dL (8.5-10.5); Carbon Dioxide 24 mmol/L (22-29); Chloride 97 mmol/L (98-107); Creatinine Clr Calc Pharmacy 64.7109; Globulin 2.5 g/dL (1.3-4.6); Glomerular Filtration Rate 64.1 mL/min (90-130); Glucose 130 mg/dL (65-115); Lipase 55 U/L (13-60); Osmolality Calculated 285 mOsm/kg (285-295); Potassium 4.5 mmol/L (3.5-5.1); Sodium 136 mmol/L (136-145); Total Bilirubin 0.2 mg/dL (0.15-1.2); Total Protein 6.8 g/dL (6.6-8.7)
--- NOTE | 2024-03-23 19:01 | ED_ITS ---
HPI - Female Genitourinary 2 General: Chief complaint: Urogenital-Female Stated complaint: hematuria Time Seen by Provider: 03/23/24 18:58 History of Present Illness: 58-year-old female comes in today for co ncerns of blood in her urine. Patient noticed blood in her urine since Sunday but today has not noticed as much blood. Patient had talked to a nurse about her symptoms and it was recommended she be evaluated in the ER. Patient also reports some right upper quadrant pain at times which worsens with eating. Related Data Home Medications Medication Instructions Recorded Confirmed acetaminophen 500 mg tablet 500 - 1,000 mg PO Q6H PRN Pain 07/29/23 03/04/24 Previous Rx's Medication Instructions Recorded mirtazapine 45 mg tablet 45 mg PO BEDTIME #30 tabs 05/21/23 walker with seat #1 ea 08/25/23 citalopram 40 mg tablet (Celexa) 40 mg PO QAM #30 tabs 09/26/23 benztropine 1 mg tablet 1 mg PO BID #60 tabs 10/23/23 clozapine 100 mg tablet (Clozaril) See Rx Instructions PO .COMPLEX 10/23/23 #150 tabs clozapine 50 mg tablet 50 mg PO BID #60 tabs 10/23/23 oxybutynin chloride 15 mg 15 mg PO BEDTIME #90 tabs 12/26/23 tablet,extended release 24 hr budesonide-formoterol HFA 160 2 puff inhalation BID #10.2 grams 01/22/24 mcg-4.5 mcg/actuation aerosol inhaler (Symbicort) albuterol sulfate 90 mcg/actuation 2 puff inhalation Q4H PRN 01/29/24 aerosol inhaler (ProAir HFA) shortness of breath or wheezing #17 grams baclofen 10 mg tablet 10 mg PO BID PRN Pain #30 tabs 01/29/24 dexlansoprazole 60 mg See Rx Instructions .Route 01/29/24 capsule,biphase delayed release .COMPLEX #90 caps fluticasone propionate 50 See Rx Instructions .Route 01/29/24 mcg/actuation nasal .COMPLEX #48 mL spray,suspension gabapentin 300 mg capsule 300 mg PO Q8H chronic pain 30 days 02/01/24 #90 caps meloxicam 7.5 mg tablet 7.5 mg PO BID PRN INFLAMATION AND 02/01/24 PAIN. #60 tabs montelukast 10 mg tablet 10 mg PO QAM #90 tabs 02/01/24 (Singulair) clozapine 50 mg tablet 50 mg PO BID #3 tabs 03/01/24 lorazepam 1 mg tablet 1 mg PO BID PRN anxiety attacks 30 03/04/24 days #60 tabs tramadol 50 mg tablet 50 mg PO BID PRN pain 30 days #60 03/04/24 tabs atorvastatin 20 mg tablet 20 mg PO QAM #90 tabs 03/14/24 amoxicillin 875 mg-potassium 1 tab PO BID #14 tabs 03/23/24 clavulanate 125 mg tablet Allergies Allergy/AdvReac Type Severity Reaction Status Date / Time ibuprofen Allergy Mild ALGY-Rash Verified 03/23/24 17:41 Review of Systems 2 General: Reports: 10 or more systems reviewed and unremarkable except in HPI and below PFSH ED 2 PFSH: Medical History (Updated 03/23/24 @ 20:10 by YAEL Pandey) Bilateral lower extremity edema Anxiety disorder due to general medical condition with panic attack Hypoxemia COPD exacerbation Pain management contract agreement Tremor 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, severe, 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 Uterine prolapse Prediabetes Chronic bronchitis with COPD (chronic obstructive pulmonary disease) Mixed hyperlipidemia Psychiatric care Osteoarthritis (arthritis due to wear and tear of joints) Chronic pain disorder Right shoulder, bilateral lower extremities Obesity (BMI 30.0-34.9) GERD (gastroesophageal reflux disease) Surgical History Status post bilateral salpingo-oophorectomy (BSO) S/P laparoscopic assisted vaginal hysterectomy (LAVH) Family History Other CAD (coronary artery disease) Hypertension Social History Smoking and tobacco/nicotine status: current every day tobacco/nicotine user Substance/Drug Use: never Do you think of yourself as: Straight/Heterosexual Female Reproductive History: Para: 2 Physical Exam 2 Const: COMMON NORMALS: alert HENMT: COMMON NORMALS: normocephalic HEAD & SCALP: normocephalic Neck/C-Spine: COMMON NORMALS: full ROM Resp: COMMON NORMALS: normal respiratory effort Cardio: COMMON NORMALS: regular rate RATE: regular rate GI: COMMON NORMALS: Soft to palpation PALPATION: Yes Soft to palpation and Yes Tenderness to palpation present (GI) Details: RUQ : COMMON NORMALS: Yes no CVA tenderness BLADDER/KIDNEY EXAM: Yes no CVA tenderness Back/Pelvis: COMMON NORMALS: no CVA tenderness Extremity: COMMON NORMALS: normal to inspection Neuro: SENSORIUM/ORIENTATION: Yes alert Skin: COMMON NORMALS: turgor normal GENERAL SKIN EXAM: turgor normal Course 2 Vital Signs: Vital signs: Vital Signs Temperature 97.9 F 03/23/24 17:34 Pulse Rate 105 H 03/23/24 17:34 Respiratory Rate 18 03/23/24 17:34 Blood Pressure 97/68 03/23/24 17:34 Pulse Oximetry 96 03/23/24 17:34 Oxygen Delivery Me thod Room Air 03/23/24 17:34 [facility] - Female Medical Decision Making 58-year-old female comes in today for complaints of right upper quadrant tenderness and blood in his urine. On exam patient appears nontoxic. Patient appears no acute distress. Respirations are even lungs are clear to auscultation. Abdomen is soft with some right upper quadrant tenderness. No CVA tenderness. Vital signs are normal. Differential diagnosis includes but not limited to urinary tract infection, renal calculi, hematuria benign, carcinoma, gallbladder disease, anxiety about health. Ultrasound the gallbladder noted some thickening of the gallbladder wall and dilation of the gallbladder, bile duct. Otherwise unremarkable. CBC noted a white count of 13.9. CMP showed some mild elevation in ALT and alkaline phosphatase. Normal bilirubin. Urinalysis had increased leukocyte esterases and white blood cells in the urine. Recommend follow-up with surgeon for further evaluation and consideration of treatment of gallbladder disease. Will treat with antibiotics Augmentin for urinary tract infection and possible mild cholecystitis. Reviewed recommendations with patient and need for follow-up. Patient reported understanding agreed to plan. Lab Data 03/23/24 18:09 03/23/24 18:09 Laboratory Results WBC 13.90 10^3/uL (3.29-11.43) H 03/23/24 18:09 RBC 4.15 10^6/uL (3.85-5.65) 03/23/24 18:09 Hgb 12.70 g/dL (11.27-16.99) 03/23/24 18:09 Hct 38.7 % (36-47) 03/23/24 18:09 MCV 93.3 fl (85-98) 03/23/24 18:09 MCH 30.6 pg (27-33) 03/23/24 18:09 MCHC 32.8 g/dL (30-55) 03/23/24 18:09 RDW 13.6 % (12.1-15.1) 03/23/24 18:09 Plt Count 269 10^3/cmm (157-399) 03/23/24 18:09 MPV 9.4 fL (7.4-10.4) 03/23/24 18:09 Neut % (Auto) 72.1 % 03/23/24 18:09 Lymph % (Auto) 18.6 % 03/23/24 18:09 [place] % (Auto) 8.5 % 03/23/24 18:09 Eos % (Auto) 0.1 % 03/23/24 18:09 Baso % (Auto) 0.1 % 03/23/24 18:09 Neut # (Auto) 10.03 10^3/uL (1.8-7.7) H 03/23/24 18:09 Lymph # (Auto) 2.6 10^3/uL (0.8-4.8) 03/23/24 18:09 [place] # (Auto) 1.2 10^3/uL (0.2-0.9) H 03/23/24 18:09 Eos # (Auto) 0.0 10^3/uL (0.0-0.8) 03/23/24 18:09 Baso # (Auto) 0.0 10^3/uL (0.0-0.1) 03/23/24 18:09 Nucleated RBC % (auto) 0 % 03/23/24 18:09 Nucleated RBCs # 0.0 /100WBC 03/23/24 18:09 Sodium 136 mmol/L (136-145) 03/23/24 18:09 Potassium 4.5 mmol/L (3.5-5.1) 03/23/24 18:09 Chloride 97 mmol/L (98-107) L 03/23/24 18:09 Carbon Dioxide 24 mmol/L (22-29) 03/23/24 18:09 Anion Gap 19.5 (5-19) H 03/23/24 18:09 BUN 17 mg/dL (6-20) 03/23/24 18:09 Creatinine 0.9 mg/dL (0.5-0.9) 03/23/24 18:09 GFR Calculation 64.1 mL/min (90-130) L 03/23/24 18:09 Glucose 130 mg/dL (65-115) H 03/23/24 18:09 Calculated Osmolality 285 mOsm/kg (285-295) 03/23/24 18:09 Calcium 9.1 mg/dL (8.5-10.5) 03/23/24 18:09 Total Bilirubin 0.2 mg/dL (0.15-1.2) 03/23/24 18:09 AST 22 U/L (0-32) 03/23/24 18:09 ALT 34 U/L (0-33) H 03/23/24 18:09 Alkaline Phosphatase 147 U/L (35-105) H 03/23/24 18:09 Total Protein 6.8 g/dL (6.6-8.7) 03/23/24 18:09 Albumin 4.3 g/dL (3.5-5.2) 03/23/24 18:09 Globulin 2.5 g/dL (1.3-4.6) 03/23/24 18:09 Lipase 55 U/L (13-60) 03/23/24 18:09 Urine Color Yellow (Yellow) 03/23/24 19:08 Urine Appearance Clear (CLEAR) 03/23/24 19:08 Urine pH 5.5 (5-7) 03/23/24 19:08 Ur Specific [place] 1.005 (1.005-1.030) 03/23/24 19:08 Urine Protein Negative (Negative) 03/23/24 19:08 Urine Glucose (UA) Negative (Normal) 03/23/24 19:08 Urine Ketones Negative (Negative) 03/23/24 19:08 Urine Blood Negative (Negative) 03/23/24 19:08 Urine Nitrate Negative (Negative) 03/23/24 19:08 Urine Bilirubin Negative (Negative) 03/23/24 19:08 Urine Urobilinogen 0.2 mg/dL (Negative) 03/23/24 19:08 Ur Leukocyte Esterase 3+ (Negative) A 03/23/24 19:08 Urine RBC 0-2 /hpf (0-2) 03/23/24 19:08 Urine WBC 21-50 /hpf (0-5) H 03/23/24 19:08 Ur Squamous Epith Cells 0-5 /hpf (0-5) 03/23/24 19:08 Amorphous Sediment Not Reportable 03/23/24 19:08 Urine Bacteria None seen /hpf (NONE) 03/23/24 19:08 Hyaline Casts 0-4 /lpf H 03/23/24 19:08 XR interpretation done by ED provider, pending radiology final review Discharge Plan Discharge Patient Disposition: Home Clinical Impression: Gallbladder colic UTI (urinary tract infection) Qualifiers: Urinary tract infection type: acute cystitis Hematuria presence: with hematuria Qualified Code(s): N30.01 - Acute cystitis with hematuria Condition: Stable Prescriptions: New amoxicillin-pot clavulanate 875-125 mg tablet 1 tab PO BID Qty: 14 0RF No Action (DME) walker with seat See Rx Instructions .Route .MEDSUPPLY Qty: 1 0RF Rx Instructions: As directed gabapentin 300 mg capsule 300 mg PO Q8H 30 Days Qty: 90 3RF meloxicam 7.5 mg tablet 7.5 mg PO BID PRN (Reason: INFLAMATION AND PAIN.) Qty: 60 2RF montelukast [Singulair] 10 mg tablet 10 mg PO QAM Qty: 90 1RF tramadol 50 mg tablet 50 mg PO BID PRN (Reason: pain) 30 Days Qty: 60 2RF Rx Instructions: refill on or after 30 days lorazepam 1 mg tablet 1 mg PO BID PRN (Reason: anxiety attacks) 30 Days Qty: 60 5RF clozapine [Clozaril] 100 mg tablet See Rx Instructions PO .COMPLEX Qty: 150 11RF Rx Instructions: Take two tablets in the morning and 3 tablets at night. clozapine 50 mg tablet 50 mg PO BID Qty: 60 11RF benztropine 1 mg tablet 1 mg PO BID Qty: 60 11RF mirtazapine 45 mg tablet 45 mg PO BEDTIME Qty: 30 11RF citalopram [Celexa] 40 mg tablet 40 mg PO QAM Qty: 30 11RF oxybutynin chloride 15 mg tablet extended release 24hr 15 mg PO BEDTIME Qty: 90 1RF budesonide-formoterol [Symbicort] 160-4.5 mcg/actuation HFA aerosol inhaler 2 puff inhalation BID Qty: 10.2 3RF albuterol sulfate [ProAir HFA] 90 mcg/actuation HFA aerosol inhaler 2 puff inhalation Q4H PRN (Reason: shortness of breath or wheezing) Qty: 17 2RF baclofen 10 mg tablet 10 mg PO BID PRN (Reason: Pain) Qty: 30 0RF fluticasone propionate 50 mcg/actuation spray,suspension See Rx Instructions .ROUTE .COMPLEX Qty: 48 1RF Dose Instruction: USE 1 SPRAY IN EACH NOSTRIL TWICE DAILY Rx Instructions: USE 1 SPRAY IN EACH NOSTRIL TWICE DAILY dexlansoprazole 60 mg capsule,biphase delayed releas See Rx Instructions .ROUTE .COMPLEX Qty: 90 2RF Dose Instruction: TAKE 1 CAPSULE BY MOUTH EVERY DAY NEEDED FOR ACID REFLUX Rx Instructions: TAKE 1 CAPSULE BY MOUTH EVERY DAY NEEDED FOR ACID REFLUX atorvastatin 20 mg tablet 20 mg PO QAM Qty: 90 3RF acetaminophen 500 mg Tablet 500 - 1,000 mg PO Q6H PRN (Reason: Pain) clozapine 50 mg tablet 50 mg PO BID Qty: 3 0RF Discharge Orders: Discharge ED (Routine); Ordered 03/23/24 Ordered By: Dominik Oconnor Referrals: Evans Olvera MD [Primary Care Provider] - Discharge Diet: Usual diet Discharge Activity: Increase activity as tolerated Patient Instructions: Urinary Tract Infection in Women (ED), Abdominal Pain (ED) Activity Restrictions/Additional Instructions: Take antibiotics as directed. Drink plenty of water and fluids. Follow-up with primary care in 3 to 5 days for recheck. Case management will contact you regarding follow-up appointment with surgeon for further evaluation and treatment of your gallbladder pain. Return to ED for new concerns or worsening symptoms such as fever greater than 100.4, or inability to hold fluids down. Coding Level of Care Code ED Preschool Teacher Aide for 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
--- NOTE | 2024-03-23 19:11 | USR_ITS ---
PROCEDURE INFORMATION: Exam: US Abdomen, Limited; Right Upper Quadrant Exam date and time: 03/23/2024 7:50 PM Age: 58 years old Clinical indication: Abdominal pain; Generalized; Additional info: Elevated liver enzymes, ruq tenderness TECHNIQUE: Imaging protocol: Real time ultrasound of the abdomen with image documentation. Limited exam focused on the right upper quadrant. COMPARISON: US gall bladder [id number] 03/01/2020 9:03 PM FINDINGS: Liver: Hepatic steatosis. Liver enlarged to 17 cm. Gallbladder: Gallbladder wall thickening to 5 mm, common bile duct dilated 9 mm negative for cholelithiasis. Findings are not definitive for cholecystitis by ultrasound alone, please correlate clinically and consider correlation with nuclear medicine HIDA scan. Biliary ducts: See Gallbladder finding. Pancreas: Visualized pancreas is unremarkable. Right kidney: Normal. No mass. No hydronephrosis. US/US gall bladder [id number] IMPRESSION: 1. Gallbladder wall thickening to 5 mm, common bile duct dilated 9 mm negative for cholelithiasis. Findings are not definitive for cholecystitis by ultrasound alone, please correlate clinically and consider correlation with nuclear medicine HIDA scan. 2. Hepatic steatosis. 3. Liver enlarged to 17 cm.
[2024-03-23 19:15] LABS: Charge for UA Resulting for Rev
[2024-03-23 19:18] LABS: Bilirubin Urine Negative (Negative); Blood Urine Negative (Negative); Glucose Urine UA Negative (Normal); Ketones Urine Negative (Negative); Leukocyte Esterase Urine 3+ (Negative); Nitrate Urine Negative (Negative); Protein Urine Negative (Negative); Specific Gravity, Urine 1.005 (1.005-1.030); Urine Appearance Clear (CLEAR); Urine Color Yellow (Yellow); Urobilinogen Urine 0.2 mg/dL (Negative); pH Urine 5.5 (5-7)
[2024-03-23 19:26] LABS: Bacteria Urine None Seen /hpf; Hyaline Casts Urine 0-4 /lpf; RBC Urine 0-2 /hpf (0-2); Squamous Epithelial Cell Urine 0-5 /hpf (0-5); WBC Urine 21-50 /hpf (0-5)
[2024-03-23 19:41] LABS: Add Urine Culture? Yes
[2024-03-23] MEDS: amoxicillin-clav 875-125 mg Tablet 1 TAB PO (20:31)
[2024-03-23 20:34] VITALS: BP 105/71; PULSE 89; RESP 16; TEMP 36.6; O2SAT 98
== END 2024-03-23 20:33 | disposition home or self-care (01) ==
PROVIDERS: Emergency Medicine; Emergency Provider Nurse Practitioner Family; PCP Family Medicine Adult Medicine
DX: N30.01 Acute cystitis with hematuria (principal); K80.20 Calculus of gallbladder without cholecystitis without obstruction; Z72.0 Tobacco use; J44.9 Chronic obstructive pulmonary disease, unspecified; E78.2 Mixed hyperlipidemia
CPT/HCPCS: 36415; 76705; 80053; 81003; 81015; 83690; 85025; 87086; 99284

== ENCOUNTER → 2024-04-02 12:49 | Outpatient (BNVA) | payer MEDICARE, OTHER, SELFPAY ==
[2023-02-06 10:08] VITALS: BP 132/88; BMI 31.9
== END ==
PROVIDERS: PCP Family Medicine Adult Medicine; Visit Provider Psychiatry & Neurology Psychiatry
DX: F20.89 Other schizophrenia (principal); Z79.899 Other long term (current) drug therapy
CPT/HCPCS: 85007; 85027

== ENCOUNTER → 2024-04-16 10:01 | Outpatient (BNVA) | payer MEDICARE, SELFPAY ==
[2023-02-06 10:08] VITALS: BP 132/88; BMI 31.9
== END ==
PROVIDERS: PCP Family Medicine Adult Medicine; Visit Provider Nurse Practitioner
DX: R09.89 Other specified symptoms and signs involving the circulatory and respiratory systems (principal)
CPT/HCPCS: 87426

== ENCOUNTER 2024-04-20 07:35 | Emergency (ER) | payer MEDICARE, MEDICAID, SELFPAY ==
[2023-02-06 10:08] VITALS: BP 132/88; BMI 31.9
[2024-04-20 07:37] VITALS: BP 117/74; PULSE 113; RESP 20; TEMP 36.7; O2SAT 93; BMI 32.7
[2024-04-20 11:40] VITALS: BP 123/72; PULSE 100; O2SAT 94
[2024-04-20 12:08] LABS: Basophils % 0.1 %; Eosinophils % 0.1 %; Hematocrit 40.5 % (36-47); Lymphocytes # 1.6 10^3/uL (0.8-4.8); Lymphocytes % 15.3 %; Mean Corpuscular HGB Conc 32.8 g/dL (30-55); Mean Corpuscular Volume 91.2 fl (85-98); Mean Platelet Volume 9.2 fL (7.4-10.4); Monocytes # 0.8 10^3/uL (0.2-0.9); Monocytes % 7.9 %; Neutrophils # 8.13 10^3/uL (1.8-7.7); Neutrophils % 76.2 %; Nucleated Red Blood Cells % 0 %; Platelet Count 279 10^3/cmm (157-399); Red Blood Count 4.44 10^6/uL (3.85-5.65); Red Cell Distribution Width 13.8 % (12.1-15.1); White Blood Count 10.66 10^3/uL (3.29-11.43)
[2024-04-20 12:25] LABS: Alanine Aminotransferase 15 U/L (0-33); Albumin Level 4.1 g/dL (3.5-5.2); Alkaline Phosphatase 158 U/L (35-105); Aspartate Amino Transferase 12 U/L (0-32); Blood Urea Nitrogen 9 mg/dL (6-20); Calcium 9.2 mg/dL (8.5-10.5); Carbon Dioxide 26 mmol/L (22-29); Chloride 103 mmol/L (98-107); Creatinine Clr Calc Pharmacy 99.6687; Glomerular Filtration Rate 102.3 mL/min (90-130); Glucose 109 mg/dL (65-115); Osmolality Calculated 285 mOsm/kg (285-295); Sodium 138 mmol/L (136-145); Total Bilirubin 0.2 mg/dL (0.15-1.2); Total Protein 7.1 g/dL (6.6-8.7)
--- NOTE | 2024-04-20 12:26 | W.ED.GENADLT ---
HPI - General Adult General: Chief complaint: General Medical Stated complaint: back pain Time Seen by Provider: 04/20/24 11:37 Source: patient Mode of arrival: ambulatory Limitations: no limitations History of Present Illness: 58-year-old female states she has not felt well in weeks. She states she has a hard life and is under a lot of stress she states she has chronic pain and is low on her tramadol. States she hurts all over and just feels fatigued she denies any fever denies any vomiting denies any diarrhea. Associated symptoms: Deny chest pain, dyspnea, nausea, rash or vomiting Related Data Home Medications Medication Instructions Recorded Confirmed acetaminophen 500 mg tablet 500 - 1,000 mg PO Q6H PRN Pain 07/29/23 04/16/24 Previous Rx's Medication Instructions Recorded walker with seat #1 ea 08/25/23 citalopram 40 mg tablet (Celexa) 40 mg PO QAM #30 tabs 09/26/23 benztropine 1 mg tablet 1 mg PO BID #60 tabs 10/23/23 clozapine 100 mg tablet (Clozaril) See Rx Instructions PO .COMPLEX 10/23/23 #150 tabs clozapine 50 mg tablet 50 mg PO BID #60 tabs 10/23/23 oxybutynin chloride 15 mg 15 mg PO BEDTIME #90 tabs 12/26/23 tablet,extended release 24 hr budesonide-formoterol HFA 160 2 puff inhalation BID #10.2 grams 01/22/24 mcg-4.5 mcg/actuation aerosol inhaler (Symbicort) albuterol sulfate 90 mcg/actuation 2 puff inhalation Q4H PRN 01/29/24 aerosol inhaler (ProAir HFA) shortness of breath or wheezing #17 grams baclofen 10 mg tablet 10 mg PO BID PRN Pain #30 tabs 01/29/24 dexlansoprazole 60 mg See Rx Instructions .Route 01/29/24 capsule,biphase delayed release .COMPLEX #90 caps fluticasone propionate 50 See Rx Instructions .Route 01/29/24 mcg/actuation nasal .COMPLEX #48 mL spray,suspension gabapentin 300 mg capsule 300 mg PO Q8H chronic pain 30 days 02/01/24 #90 caps meloxicam 7.5 mg tablet 7.5 mg PO BID PRN INFLAMATION AND 02/01/24 PAIN. #60 tabs montelukast 10 mg tablet 10 mg PO QAM #90 tabs 02/01/24 (Singulair) lorazepam 1 mg tablet 1 mg PO BID PRN anxiety attacks 30 03/04/24 days #60 tabs tramadol 50 mg tablet 50 mg PO BID PRN pain 30 days #60 03/04/24 tabs atorvastatin 20 mg tablet 20 mg PO QAM #90 tabs 03/14/24 amoxicillin 875 mg-potassium 1 tab PO BID #14 tabs 03/23/24 clavulanate 125 mg tablet mirtazapine 45 mg tablet 45 mg PO BEDTIME #30 tabs 04/02/24 cetirizine 10 mg capsule (All Day 10 mg PO DAILY PRN allergy 04/16/24 Allergy (cetirizine)) symptoms #30 caps promethazine-DM 6.25 mg-15 mg/5 mL 5 ml PO Q4H PRN cough #118 mL 04/16/24 oral syrup Allergies Allergy/AdvReac Type Severity Reaction Status Date / Time ibuprofen Allergy Mild ALGY-Rash Verified 04/16/24 09:51 Review of Systems Const: Reports: fatigue; Denies: fever(s), chills or body aches Eyes: Denies: blurry vision or eye discomfort ENMT: Denies: throat pain or dental pain Card: Denies: chest pain Resp: Denies: dyspnea GI: Denies: abdominal pain, nausea, vomiting or diarrhea Musc: Reports: extremity pain Skin/Breast: Denies: rash PFSH ED PFSH: Medical History Bilateral lower extremity edema Anxiety disorder due to general medical condition with panic attack Hypoxemia COPD exacerbation Pain management contract agreement Tremor 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, severe, 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 Uterine prolapse Prediabetes Chronic bronchitis with COPD (chronic obstructive pulmonary disease) Mixed hyperlipidemia Psychiatric care Osteoarthritis (arthritis due to wear and tear of joints) Chronic pain disorder Right shoulder, bilateral lower extremities Obesity (BMI 30.0-34.9) GERD (gastroesophageal reflux disease) Surgical History Status post bilateral salpingo-oophorectomy (BSO) S/P laparoscopic assisted vaginal hysterectomy (LAVH) Family History Other CAD (coronary artery disease) Hypertension Social History Smoking and tobacco/nicotine status: current every day tobacco/nicotine user Substance/Drug Use: never Do you think of yourself as: Straight/Heterosexual Female Reproductive History: Para: 2 Physical Exam Const: COMMON NORMALS: no acute distress, patient oriented x3 and healthy appearing HENMT: COMMON NORMALS: normocephalic and atraumatic HEAD & SCALP: normocephalic and atraumatic Eye: COMMON NORMALS: conjunctivae normal CONJUNCTIVA: Yes conjunctivae normal Neck/C-Spine: COMMON NORMALS: full ROM and supple Chest: COMMONS NORMALS: normal inspection of the chest Resp: COMMON NORMALS: normal respiratory effort, No retractions, No use of accessory muscles and clear to auscultation bilaterally AUSCULTATION: clear to auscultation bilaterally Cardio: COMMON NORMALS: regular rate, regular rhythm and No murmurs present (Cardio) RATE: regular rate RHYTHM: regular rhythm GI: COMMON NORMALS: Normal to inspection, nondistended, normoactive bowel sounds present, Soft to palpation, non-tender and no masses PALPATION: Yes Soft to palpation Extremity: COMMON NORMALS: normal to inspection and full ROM Neuro: COMMON NORMALS: patient oriented x3, moves all extremities and no focal motor deficits Psych: COMMON NORMALS: mental status grossly normal, Normal thought process present and cooperative THOUGHT PROCESS: Normal thought process present Skin: COMMON NORMALS: no rashes or lesions noted and no wounds GENERAL SKIN EXAM: no rashes or lesions noted Course Vital Signs: Vital signs: Vital Signs Temperature 98.1 F 04/20/24 07:37 Pulse Rate 100 04/20/24 11:40 Respiratory Rate 20 H 04/20/24 07:37 Blood Pressure 123/72 04/20/24 11:40 Pulse Oximetry 94 04/20/24 11:40 Oxygen Delivery Me thod Room Air 04/20/24 11:40 [facility] - General Adult Medical Decision Making Patient presents here with fatigue and chronic pain she is well-appearing here blood works normal she stable for discharge follow-up with PCP return if worsening Medical Records I reviewed the patient's medical records. Lab Data I reviewed the patient's lab results. 04/20/24 12:02 04/20/24 12:02 Laboratory Results WBC 10.66 10^3/uL (3.29-11.43) 04/20/24 12:02 RBC 4.44 10^6/uL (3.85-5.65) 04/20/24 12:02 Hgb 13.30 g/dL (11.27-16.99) 04/20/24 12:02 Hct 40.5 % (36-47) 04/20/24 12:02 MCV 91.2 fl (85-98) 04/20/24 12:02 MCH 30.0 pg (27-33) 04/20/24 12:02 MCHC 32.8 g/dL (30-55) 04/20/24 12:02 RDW 13.8 % (12.1-15.1) 04/20/24 12:02 Plt Count 279 10^3/cmm (157-399) 04/20/24 12:02 MPV 9.2 fL (7.4-10.4) 04/20/24 12:02 Neut % (Auto) 76.2 % 04/20/24 12:02 Lymph % (Auto) 15.3 % 04/20/24 12:02 [place] % (Auto) 7.9 % 04/20/24 12:02 Eos % (Auto) 0.1 % 04/20/24 12:02 Baso % (Auto) 0.1 % 04/20/24 12:02 Neut # (Auto) 8.13 10^3/uL (1.8-7.7) H 04/20/24 12:02 Lymph # (Auto) 1.6 10^3/uL (0.8-4.8) 04/20/24 12:02 [place] # (Auto) 0.8 10^3/uL (0.2-0.9) 04/20/24 12:02 Eos # (Auto) 0.0 10^3/uL (0.0-0.8) 04/20/24 12:02 Baso # (Auto) 0.0 10^3/uL (0.0-0.1) 04/20/24 12:02 Nucleated RBC % (auto) 0 % 04/20/24 12:02 Nucleated RBCs # 0.0 /100WBC 04/20/24 12:02 Sodium 138 mmol/L (136-145) 04/20/24 12:02 Potassium 4.0 mmol/L (3.5-5.1) 04/20/24 12:02 Chloride 103 mmol/L (98-107) 04/20/24 12:02 Carbon Dioxide 26 mmol/L (22-29) 04/20/24 12:02 Anion Gap 13.0 (5-19) 04/20/24 12:02 BUN 9 mg/dL (6-20) 04/20/24 12:02 Creatinine 0.6 mg/dL (0.5-0.9) 04/20/24 12:02 GFR Calculation 102.3 mL/min (90-130) 04/20/24 12:02 Glucose 109 mg/dL (65-115) 04/20/24 12:02 Calculated Osmolality 285 mOsm/kg (285-295) 04/20/24 12:02 Calcium 9.2 mg/dL (8.5-10.5) 04/20/24 12:02 Total Bilirubin 0.2 mg/dL (0.15-1.2) 04/20/24 12:02 AST 12 U/L (0-32) 04/20/24 12:02 ALT 15 U/L (0-33) 04/20/24 12:02 Alkaline Phosphatase 158 U/L (35-105) H 04/20/24 12:02 Total Protein 7.1 g/dL (6.6-8.7) 04/20/24 12:02 Albumin 4.1 g/dL (3.5-5.2) 04/20/24 12:02 Globulin 3.0 g/dL (1.3-4.6) 04/20/24 12:02 No radiology studies performed this visit Discharge Plan Discharge Patient Disposition: Home Clinical Impression: Generalized weakness, Chronic pain disorder Condition: Stable Prescriptions: No Action (DME) walker with seat See Rx Instructions .Route .MEDSUPPLY Qty: 1 0RF Rx Instructions: As directed gabapentin 300 mg capsule 300 mg PO Q8H 30 Days Qty: 90 3RF meloxicam 7.5 mg tablet 7.5 mg PO BID PRN (Reason: INFLAMATION AND PAIN.) Qty: 60 2RF montelukast [Singulair] 10 mg tablet 10 mg PO QAM Qty: 90 1RF tramadol 50 mg tablet 50 mg PO BID PRN (Reason: pain) 30 Days Qty: 60 2RF Rx Instructions: refill on or after 30 days lorazepam 1 mg tablet 1 mg PO BID PRN (Reason: anxiety attacks) 30 Days Qty: 60 5RF mirtazapine 45 mg tablet 45 mg PO BEDTIME Qty: 30 11RF promethazine-DM 6.25-15 mg/5 mL syrup 5 ml PO Q4H PRN (Reason: cough) Qty: 118 0RF Rx Instructions: Do not exceed more than 30ml/24hour period (6 doses) All Day Allergy (cetirizine) 10 mg capsule 10 mg PO DAILY PRN (Reason: allergy symptoms) Qty: 30 0RF clozapine [Clozaril] 100 mg tablet See Rx Instructions PO .COMPLEX Qty: 150 11RF Rx Instructions: Take two tablets in the morning and 3 tablets at night. clozapine 50 mg tablet 50 mg PO BID Qty: 60 11RF benztropine 1 mg tablet 1 mg PO BID Qty: 60 11RF citalopram [Celexa] 40 mg tablet 40 mg PO QAM Qty: 30 11RF oxybutynin chloride 15 mg tablet extended release 24hr 15 mg PO BEDTIME Qty: 90 1RF budesonide-formoterol [Symbicort] 160-4.5 mcg/actuation HFA aerosol inhaler 2 puff inhalation BID Qty: 10.2 3RF albuterol sulfate [ProAir HFA] 90 mcg/actuation HFA aerosol inhaler 2 puff inhalation Q4H PRN (Reason: shortness of breath or wheezing) Qty: 17 2RF baclofen 10 mg tablet 10 mg PO BID PRN (Reason: Pain) Qty: 30 0RF fluticasone propionate 50 mcg/actuation spray,suspension See Rx Instructions .ROUTE .COMPLEX Qty: 48 1RF Dose Instruction: USE 1 SPRAY IN EACH NOSTRIL TWICE DAILY Rx Instructions: USE 1 SPRAY IN EACH NOSTRIL TWICE DAILY dexlansoprazole 60 mg capsule,biphase delayed releas See Rx Instructions .ROUTE .COMPLEX Qty: 90 2RF Dose Instruction: TAKE 1 CAPSULE BY MOUTH EVERY DAY NEEDED FOR ACID REFLUX Rx Instructions: TAKE 1 CAPSULE BY MOUTH EVERY DAY NEEDED FOR ACID REFLUX atorvastatin 20 mg tablet 20 mg PO QAM Qty: 90 3RF acetaminophen 500 mg Tablet 500 - 1,000 mg PO Q6H PRN (Reason: Pain) amoxicillin-pot clavulanate 875-125 mg tablet 1 tab PO BID Qty: 14 0RF Discharge Orders: Discharge ED (Routine); Ordered 04/20/24 Ordered By: Kade Smith Referrals: Evans Olvera MD [Primary Care Provider] - Discharge Diet: Advance as tolerated Discharge Activity: Resume usual activity Patient Instructions: Weakness (ED) Coding Level of Care Code ED Supervisor Floor Assembly for 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
[2024-04-20 12:48] VITALS: BP 117/88; PULSE 97; O2SAT 95
== END 2024-04-20 12:49 | disposition home or self-care (01) ==
PROVIDERS: Emergency Provider Emergency Medicine; PCP Family Medicine Adult Medicine
DX: R53.1 Weakness (principal); G89.4 Chronic pain syndrome; J44.9 Chronic obstructive pulmonary disease, unspecified; E78.2 Mixed hyperlipidemia; Z72.0 Tobacco use
CPT/HCPCS: 36415; 80053; 85025; 99283

== ENCOUNTER → 2024-05-08 12:38 | Outpatient (BNVA) | payer MEDICARE, MEDICAID, SELFPAY ==
[2023-02-06 10:08] VITALS: BP 132/88; BMI 31.9
== END ==
PROVIDERS: PCP Family Medicine Adult Medicine; Visit Provider Psychiatry & Neurology Psychiatry
DX: F20.89 Other schizophrenia (principal); Z79.899 Other long term (current) drug therapy
CPT/HCPCS: 85007; 85027

== ENCOUNTER → 2024-05-14 10:40 | Outpatient (BNVA) | payer MEDICARE, MEDICAID, SELFPAY ==
[2023-02-06 10:08] VITALS: BP 132/88; BMI 31.9
== END ==
PROVIDERS: PCP Family Medicine Adult Medicine; Visit Provider Internal Medicine Cardiovascular Disease
DX: R07.89 Other chest pain (principal); E78.2 Mixed hyperlipidemia; F17.210 Nicotine dependence, cigarettes, uncomplicated; R73.03 Prediabetes; I83.813 Varicose veins of bilateral lower extremities with pain; F17.200 Nicotine dependence, unspecified, uncomplicated
CPT/HCPCS: 99214

== ENCOUNTER 2024-05-21 16:34 | Inpatient (IN) | payer MEDICARE, MEDICAID, SELFPAY ==
[2023-02-06 10:08] VITALS: BP 132/88; BMI 31.9
[2024-05-21 16:35] VITALS: BP 123/68; PULSE 103; RESP 18; TEMP 36.3; O2SAT 96
[2024-05-21 17:11] LABS: Bilirubin Urine Negative (Negative); Blood Urine Negative (Negative); Glucose Urine UA Negative (Normal); Ketones Urine Trace (Negative); Leukocyte Esterase Urine 3+ (Negative); Nitrate Urine Negative (Negative); Protein Urine Negative (Negative); Specific Gravity, Urine 1.011 (1.005-1.030); Urine Appearance Cloudy (CLEAR); Urine Color Yellow (Yellow)
[2024-05-21 17:17] LABS: Amphetamines Screen Urine Negative (Negative); Barbiturates Screen Urine Negative (Negative); Benzodiazepines Screen Urine Positive (Negative); Cocaine Screen Urine Negative (Negative); Opiate Screen Urine Negative (Negative); PCP Screen Urine Negative (Negative); THC Screen Urine Negative (Negative)
--- NOTE | 2024-05-21 17:17 | ED.C_ITS ---
HPI - Psych 2 General: Chief Complaint: Psychiatric Symptoms Stated Complaint: hearing voices Time Seen by Provider: 05/21/24 16:37 History of Present Illness: Presents to the ER from the crisis center for hallucinations. Patient said she has been having auditory and visual hallucinations of voices telling her that she going to slow painful and bad things are going to happen to her. Patient said she feels like she is thinks her skin is falling off. Patient denies suicidal or homicidal ideation. Patient has been admitted inpatient multiple times. Patient says she would like to go again. Patient said usually after 3 to 4 days and medicine changes she feels a lot better Related Data Home Medications Medication Instructions Recorded Confirmed acetaminophen 500 mg tablet 500 mg PO Q6H PRN 05/14/24 05/20/24 albuterol sulfate 90 mcg/actuation 2 puff inhalation Q6H PRN 05/14/24 05/20/24 aerosol inhaler atorvastatin 20 mg tablet 20 mg PO DAILY 05/14/24 05/20/24 benztropine 1 mg tablet 1 mg PO BID 05/14/24 05/20/24 budesonide-formoterol HFA 160 2 puff inhalation BID 05/14/24 05/20/24 mcg-4.5 mcg/actuation aerosol inhaler (Symbicort) cetirizine 10 mg tablet 10 mg PO DAILY PRN 05/14/24 05/20/24 citalopram 40 mg tablet 20 mg PO DAILY 05/14/24 05/20/24 clozapine 100 mg tablet 100 mg PO DIRECTED 05/14/24 05/20/24 clozapine 50 mg tablet 50 mg PO BID 05/14/24 05/20/24 dexlansoprazole 60 mg 60 mg PO DAILY 05/14/24 05/20/24 capsule,biphase delayed release Previous Rx's Medication Instructions Recorded walker with seat #1 ea 08/25/23 oxybutynin chloride 15 mg 15 mg PO BEDTIME #90 tabs 12/26/23 tablet,extended release 24 hr fluticasone propionate 50 See Rx Instructions .Route 01/29/24 mcg/actuation nasal .COMPLEX #48 mL spray,suspension gabapentin 300 mg capsule 300 mg PO Q8H chronic pain 30 days 02/01/24 #90 caps meloxicam 7.5 mg tablet 7.5 mg PO BID PRN INFLAMATION AND 02/01/24 PAIN. #60 tabs montelukast 10 mg tablet 10 mg PO QAM #90 tabs 02/01/24 (Singulair) lorazepam 1 mg tablet 1 mg PO BID PRN anxiety attacks 30 03/04/24 days #60 tabs mirtazapine 45 mg tablet 45 mg PO BEDTIME #30 tabs 04/02/24 promethazine-DM 6.25 mg-15 mg/5 mL 5 ml PO Q4H PRN cough #118 mL 04/16/24 oral syrup tramadol 50 mg tablet 50 mg PO BID PRN pain 30 days #60 05/19/24 tabs benztropine 1 mg tablet 1 mg PO BID #60 tabs 05/20/24 citalopram 40 mg tablet (Celexa) 40 mg PO QAM #30 tabs 05/20/24 clozapine 100 mg tablet (Clozaril) See Rx Instructions PO .COMPLEX 05/20/24 #150 tabs clozapine 50 mg tablet 50 mg PO BID #60 tabs 05/20/24 Allergies Allergy/AdvReac Type Severity Reaction Status Date / Time ibuprofen Allergy Mild ALGY-Rash Verified 05/20/24 12:49 Review of Systems 2 General: Reports: 10 or more systems reviewed and unremarkable except in HPI and below PFSH ED 2 PFSH: Medical History Chest pain Bilateral lower extremity edema Anxiety disorder due to general medical condition with panic attack Hypoxemia COPD exacerbation Pain management contract agreement Tremor 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, severe, 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 Uterine prolapse Prediabetes Chronic bronchitis with COPD (chronic obstructive pulmonary disease) Mixed hyperlipidemia Psychiatric care Osteoarthritis (arthritis due to wear and tear of joints) Chronic pain disorder Right shoulder, bilateral lower extremities Obesity (BMI 30.0-34.9) GERD (gastroesophageal reflux disease) Surgical History Status post bilateral salpingo-oophorectomy (BSO) S/P laparoscopic assisted vaginal hysterectomy (LAVH) Family History Other CAD (coronary artery disease) Hypertension Social History (Reviewed 05/21/24 @ 17:18 by YING Yang Smoking and tobacco/nicotine status: current every day tobacco/nicotine user Substance/Drug Use: never Do you think of yourself as: Straight/Heterosexual Female Reproductive History: Para: 2 Physical Exam 2 Const: COMMON NORMALS: no acute distress, average body habitus, patient oriented x3, no limitations, healthy appearing, alert and well nourished HENMT: COMMON NORMALS: normocephalic, atraumatic, hearing grossly normal bilaterally, external ears normal, Normal external nose present and moist oral mucous membranes HEAD & SCALP: normocephalic and atraumatic NOSE: Normal external nose present EXTERNAL EAR: Yes external ears normal Neck/C-Spine: COMMON NORMALS: no JVD Chest: COMMONS NORMALS: normal inspection of the chest and normal palpation of entire chest wall Resp: COMMON NORMALS: normal respiratory effort, No retractions, No use of accessory muscles and clear to auscultation bilaterally AUSCULTATION: clear to auscultation bilaterally Cardio: COMMON NORMALS: no JVD, regular rate, regular rhythm, S1 normal heart sound present, S2 normal heart sound present, No gallops present (Cardio), No clicks present (Cardio), No murmurs present (Cardio) and No rub (Cardio) R ATE: regular rate RHYTHM: regular rhythm HEART SOUNDS: S1 normal heart sound present and S2 normal heart sound present GI: COMMON NORMALS: Normal to inspection, nondistended, normoactive bowel sounds present, Soft to palpation, non-tender, No hepatosplenomegaly present and no masses PALPATION: Yes Soft to palpation and Yes No hepatosplenomegaly present Neuro: COMMON NORMALS: patient oriented x3 SENSORIUM/ORIENTATION: Yes alert Course 2 Vital Signs: Vital signs: Vital Signs Temperature 97.4 F L 05/21/24 16:35 Pulse Rate 103 H 05/21/24 16:35 Respiratory Rate 18 05/21/24 16:35 Blood Pressure 123/68 05/21/24 16:35 Pulse Oximetry 96 05/21/24 16:35 [facility] - Psych Medical Decision Making Patient had lab work drawn she was cleared medically she has a urinary tract infection. This was discussed with Dr. Conrad who says he will accept her up to [facility]. Medical Records I reviewed the patient's medical records. Lab Data I reviewed the patient's lab results. 05/21/24 17:20 05/21/24 17:20 Laboratory Results WBC 10.47 10^3/uL (3.29-11.43) 05/21/24 17:20 RBC 4.24 10^6/uL (3.85-5.65) 05/21/24 17:20 Hgb 12.60 g/dL (11.27-16.99) 05/21/24 17:20 Hct 38.7 % (36-47) 05/21/24 17:20 MCV 91.3 fl (85-98) 05/21/24 17:20 MCH 29.7 pg (27-33) 05/21/24 17:20 MCHC 32.6 g/dL (30-55) 05/21/24 17:20 RDW 14.3 % (12.1-15.1) 05/21/24 17:20 Plt Count 281 10^3/cmm (157-399) 05/21/24 17:20 MPV 9.6 fL (7.4-10.4) 05/21/24 17:20 Neut % (Auto) 72.7 % 05/21/24 17:20 Lymph % (Auto) 18.4 % 05/21/24 17:20 [place] % (Auto) 7.9 % 05/21/24 17:20 Eos % (Auto) 0.1 % 05/21/24 17:20 Baso % (Auto) 0.1 % 05/21/24 17:20 Neut # (Auto) 7.61 10^3/uL (1.8-7.7) 05/21/24 17:20 Lymph # (Auto) 1.9 10^3/uL (0.8-4.8) 05/21/24 17:20 [place] # (Auto) 0.8 10^3/uL (0.2-0.9) 05/21/24 17:20 Eos # (Auto) 0.0 10^3/uL (0.0-0.8) 05/21/24 17:20 Baso # (Auto) 0.0 10^3/uL (0.0-0.1) 05/21/24 17:20 Nucleated RBC % (auto) 0 % 05/21/24 17:20 Nucleated RBCs # 0.0 /100WBC 05/21/24 17:20 Sodium 139 mmol/L (136-145) 05/21/24 17:20 Potassium 4.2 mmol/L (3.5-5.1) 05/21/24 17:20 Chloride 101 mmol/L (98-107) 05/21/24 17:20 Carbon Dioxide 29 mmol/L (22-29) 05/21/24 17:20 Anion Gap 13.2 (5-19) 05/21/24 17:20 BUN 10 mg/dL (8-23) 05/21/24 17:20 Creatinine 0.7 mg/dL (0.5-0.9) 05/21/24 17:20 GFR Calculation 85.4 mL/min (90-130) L 05/21/24 17:20 Glucose 97 mg/dL (65-115) 05/21/24 17:20 Calculated Osmolality 287 mOsm/kg (285-295) 05/21/24 17:20 Calcium 9.0 mg/dL (8.5-10.5) 05/21/24 17:20 Total Bilirubin 0.2 mg/dL (0.15-1.2) 05/21/24 17:20 AST 13 U/L (0-32) 05/21/24 17:20 ALT 17 U/L (0-33) 05/21/24 17:20 Alkaline Phosphatase 129 U/L (35-105) H 05/21/24 17:20 Total Protein 6.8 g/dL (6.6-8.7) 05/21/24 17:20 Albumin 4.3 g/dL (3.5-5.2) 05/21/24 17:20 Globulin 2.5 g/dL (1.3-4.6) 05/21/24 17:20 Urine Color Yellow (Yellow) 05/21/24 16:50 Urine Appearance Cloudy (CLEAR) A 05/21/24 16:50 Urine pH 6.0 (5-7) 05/21/24 16:50 Ur Specific [place] 1.011 (1.005-1.030) 05/21/24 16:50 Urine Protein Negative (Negative) 05/21/24 16:50 Urine Glucose (UA) Negative (Normal) 05/21/24 16:50 Urine Ketones Trace (Negative) 05/21/24 16:50 Urine Blood Negative (Negative) 05/21/24 16:50 Urine Nitrate Negative (Negative) 05/21/24 16:50 Urine Bilirubin Negative (Negative) 05/21/24 16:50 Urine Urobilinogen 1.0 mg/dL (Negative) 05/21/24 16:50 Ur Leukocyte Esterase 3+ (Negative) A 05/21/24 16:50 Urine RBC 0-4 /hpf (0-2) H 05/21/24 16:50 Urine WBC >100 /hpf (0-5) H 05/21/24 16:50 Ur Squamous Epith Cells 0-4 /hpf (0-5) H 05/21/24 16:50 Ur Transition Epith Cell 0-4 /hpf 05/21/24 16:50 Amorphous Sediment Not Reportable 05/21/24 16:50 Urine Bacteria 1+ /hpf (NONE) H 05/21/24 16:50 Urine Mucus Trace /hpf 05/21/24 16:50 Salicylates < 0.3 mg/dL (3-10) L 05/21/24 17:20 Urine Opiates Screen Negative ng/mL (Negative) 05/21/24 16:50 Acetaminophen < 5.0 ug/mL (10-30) L 05/21/24 17:20 Ur Barbiturates Screen Negative ng/mL (Negative) 05/21/24 16:50 Ur Phencyclidine Scrn Negative ng/mL (Negative) 05/21/24 16:50 Ur Amphetamines Screen Negative ng/mL (Negative) 05/21/24 16:50 U Benzodiazepines Scrn Positive ng/mL (Negative) H 05/21/24 16:50 Urine Cocaine Screen Negative ng/mL (Negative) 05/21/24 16:50 U Marijuana (THC) Screen Negative ng/mL (Negative) 05/21/24 16:50 Ethyl Alcohol < 10 mg/dL (0-10) 05/21/24 17:20 No radiology studies performed this visit Discharge Plan Discharge Patient Disposition: Admitted As Inpatient Clinical Impression: Schizophrenia, Hallucinations, Non-compliance Urinary tract infection Qualifiers: Urinary tract infection type: acute cystitis Hematuria presence: with hematuria Qualified Code(s): N30.01 - Acute cystitis with hematuria Condition: Stable Coding Level of Care Code ED Program Manager Transportation for 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
[2024-05-21 17:27] LABS: UA Manual Slide Review YES; UA Slide Review UA Slide Review Perf
[2024-05-21 17:30] LABS: Add Urine Culture? Yes; Add Urine Microscopic? YES; Bacteria Urine 1+ /hpf; Mucus Urine TRACE /hpf; RBC Urine 0-4 /hpf (0-2); Squamous Epithelial Cell Urine 0-4 /hpf (0-5); Transitional Epi Cells Urine 0-4 /hpf; WBC Urine >100 /hpf (0-5)
[2024-05-21 17:40] LABS: Basophils % 0.1 %; Eosinophils % 0.1 %; Hematocrit 38.7 % (36-47); Lymphocytes # 1.9 10^3/uL (0.8-4.8); Lymphocytes % 18.4 %; Mean Corpuscular HGB Conc 32.6 g/dL (30-55); Mean Corpuscular Hemoglobin 29.7 pg (27-33); Mean Corpuscular Volume 91.3 fl (85-98); Mean Platelet Volume 9.6 fL (7.4-10.4); Monocytes # 0.8 10^3/uL (0.2-0.9); Monocytes % 7.9 %; Neutrophils # 7.61 10^3/uL (1.8-7.7); Neutrophils % 72.7 %; Nucleated Red Blood Cells % 0 %; Platelet Count 281 10^3/cmm (157-399); Red Blood Count 4.24 10^6/uL (3.85-5.65); Red Cell Distribution Width 14.3 % (12.1-15.1); White Blood Count 10.47 10^3/uL (3.29-11.43)
[2024-05-21] MEDS: ciprofloxacin 500 mg Tablet PO (17:40)
[2024-05-21 17:57] LABS: Alanine Aminotransferase 17 U/L (0-33); Albumin Level 4.3 g/dL (3.5-5.2); Alkaline Phosphatase 129 U/L (35-105); Anion Gap 13.2 (5-19); Aspartate Amino Transferase 13 U/L (0-32); Blood Urea Nitrogen 10 mg/dL (8-23); Carbon Dioxide 29 mmol/L (22-29); Chloride 101 mmol/L (98-107); Creatinine Clr Calc Pharmacy 84.3756; Globulin 2.5 g/dL (1.3-4.6); Glomerular Filtration Rate 85.4 mL/min (90-130); Glucose 97 mg/dL (65-115); Osmolality Calculated 287 mOsm/kg (285-295); Potassium 4.2 mmol/L (3.5-5.1); Sodium 139 mmol/L (136-145); Total Bilirubin 0.2 mg/dL (0.15-1.2); Total Protein 6.8 g/dL (6.6-8.7)
[2024-05-21 18:00] LABS: Acetaminophen < 5.0 ug/mL (10-30); Alcohol Level < 10 mg/dL (0-10); Salicylate < 0.3 mg/dL (3-10)
[2024-05-21 19:55] VITALS: BP 144/75; PULSE 89; RESP 18; TEMP 36.9; O2SAT 94
[2024-05-21 20:14] VITALS: BP 114/75; PULSE 89; RESP 18; TEMP 36.9; O2SAT 94
[2024-05-21] MEDS: acetaminophen 325 mg Tablet 650 MG PO (20:41)
[2024-05-21] MEDS: ondansetron 4 MG Tablet PO (20:41)
[2024-05-21] MEDS: trazodone 50 mg Tablet PO (20:42)
[2024-05-21] MEDS: hyDROXYzine 25 mg Capsule 50 MG PO (20:42)
[2024-05-21] MEDS: alum-mag-hydroxide-sime 30 mL UDC PO (21:20)
[2024-05-22 06:00] VITALS: BP 130/83; PULSE 75; RESP 16; TEMP 36.6; O2SAT 95
[2024-05-22] MEDS: gabapentin 300 mg Capsule PO ×2 (07:24→15:13)
[2024-05-22] MEDS: acetaminophen 325 mg Tablet 650 MG PO (07:24)
[2024-05-22] MEDS: pantoprazole DR 40 mg Tablet PO (08:35)
[2024-05-22] MEDS: montelukast sodium 10 mg Tablet PO (08:35)
[2024-05-22] MEDS: atorvastatin 40 mg Tablet PO (08:35)
[2024-05-22] MEDS: benztropine 1 mg Tablet PO (08:35)
[2024-05-22] MEDS: nicotine 2 mg Gum BUCCAL ×2 (08:36→13:09)
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
[2024-05-22] MEDS: albuterol 2.5 mg/3 mL Neb INHALATION (09:27)
[2024-05-22] MEDS: budesonide 0.5 mg/2 mL Neb INHALATION (09:28)
[2024-05-22 09:34] VITALS: PULSE 87; RESP 16; O2SAT 96
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
--- NOTE | 2024-05-22 10:17 | PC.NURSE ---
spoke with [facility] for Rem # for clozapine website # [id number] updated 05/08/24 informed [facility] inpatient pharmacy.
[2024-05-22] MEDS: TRAMadol 50 mg Tablet PO (11:06)
[2024-05-22] MEDS: cloZAPine 100 mg Tablet 250 MG PO (11:07)
--- NOTE | 2024-05-22 13:44 | DCPLANNER ---
IMM was given to pt and rights explained and copy placed in pts file.
[2024-05-22 14:35] VITALS: BP 164/92; PULSE 0; RESP 16; TEMP 36.6; O2SAT 96
[2024-05-22] MEDS: hyDROXYzine 25 mg Capsule 50 MG PO (15:13)
== END 2024-05-22 15:15 | disposition home or self-care (01) | DRG 885 ==
LOC: ER 18:14 → NP 18:41
PROVIDERS: Admitting Provider Psychiatry & Neurology Psychiatry; Emergency Provider Emergency Medicine; PCP Family Medicine Adult Medicine; Visit Provider Psychiatry & Neurology Psychiatry
DX: F20.9 Schizophrenia, unspecified (principal); R45.851 Suicidal ideations; F41.9 Anxiety disorder, unspecified; F32.A Depression, unspecified; J44.9 Chronic obstructive pulmonary disease, unspecified; E78.2 Mixed hyperlipidemia; F17.200 Nicotine dependence, unspecified, uncomplicated
CPT/HCPCS: 36415; 80053; 80306; 80307; 81001; 85025; 87086; 94640; 97150; 97165; J7613; J7626; Q0162

== ENCOUNTER 2024-05-24 09:08 | Emergency (ER) | payer MEDICARE, MEDICAID, SELFPAY ==
[2024-05-22 13:38] VITALS: BP 132/88; BMI 31.9
[2024-05-24 09:10] VITALS: BP 113/83; PULSE 105; RESP 17; TEMP 36.4; O2SAT 93; BMI 32.7
--- NOTE | 2024-05-24 09:13 | ED_ITS ---
HPI - Extremity Injury (Lower) General: Chief Complaint: Extremity Problem,Nontraumatic Stated Complaint: L knee pain Time Seen by Provider: 05/24/24 09:11 History of Present Illness: 59-year-old female presents emergency ro om complaining of left knee pain after twisting her knee when she was walking to a couch this morning. No previous surgeries. No previous injuries. No fever sweats or chills no joint swelling. Patient has discomfort states she is unable to bear weight. Related Data Home Medications Medication Instructions Recorded Confirmed acetaminophen 500 mg tablet 500 mg PO Q6H PRN Moderate Pain 05/14/24 05/24/24 (Scale Score 5-6) albuterol sulfate 90 mcg/actuation 2 puff inhalation Q6H PRN 05/14/24 05/24/24 aerosol inhaler Shortness Of Breath Or Wheezing atorvastatin 20 mg tablet 20 mg PO DAILY 05/14/24 05/24/24 benztropine 1 mg tablet 1 mg PO BID 05/14/24 05/24/24 budesonide-formoterol HFA 160 2 puff inhalation BID 05/14/24 05/24/24 mcg-4.5 mcg/actuation aerosol inhaler (Symbicort) cetirizine 10 mg tablet 10 mg PO DAILY PRN allergies 05/14/24 05/24/24 clozapine 100 mg tablet See Rx Instructions .Route .COMPLEX 05/14/24 05/24/24 clozapine 50 mg tablet 50 mg PO BID 05/14/24 05/24/24 dexlansoprazole 60 mg 60 mg PO DAILY PRN Acid Reflux 05/14/24 05/24/24 capsule,biphase delayed release montelukast 10 mg tablet 10 mg PO DAILY 05/21/24 05/24/24 (Singulair) fluticasone propionate 50 2 spray intranasal BID 05/24/24 05/24/24 mcg/actuation nasal spray,suspension Previous Rx's Medication Instructions Recorded walker with seat #1 ea 08/25/23 oxybutynin chloride 15 mg 15 mg PO BEDTIME #90 tabs 12/26/23 tablet,extended release 24 hr gabapentin 300 mg capsule 300 mg PO Q8H chronic pain 30 days 02/01/24 #90 caps meloxicam 7.5 mg tablet 7.5 mg PO BID PRN INFLAMATION AND 02/01/24 PAIN. #60 tabs lorazepam 1 mg tablet 1 mg PO BID PRN anxiety attacks 30 03/04/24 days #60 tabs mirtazapine 45 mg tablet 45 mg PO BEDTIME #30 tabs 04/02/24 promethazine-DM 6.25 mg-15 mg/5 mL 5 ml PO Q4H PRN cough #118 mL 04/16/24 oral syrup tramadol 50 mg tablet 50 mg PO BID PRN pain 30 days #60 05/19/24 tabs citalopram 40 mg tablet (Celexa) 40 mg PO QAM #30 tabs 05/20/24 Allergies Allergy/AdvReac Type Severity Reaction Status Date / Time ibuprofen Allergy Mild ALGY-Rash Verified 05/20/24 12:49 Review of Systems Musc: Reports: joint pain; Denies: joint swelling or joint redness 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 Uterine prolapse Prediabetes Chronic bronchitis with COPD (chronic obstructive pulmonary disease) Mixed hyperlipidemia Psychiatric care Osteoarthritis (arthritis due to wear and tear of joints) Chronic pain disorder Right shoulder, bilateral lower extremities Obesity (BMI 30.0-34.9) GERD (gastroesophageal reflux disease) Surgical History Status post bilateral salpingo-oophorectomy (BSO) S/P laparoscopic assisted vaginal hysterectomy (LAVH) Family History Other CAD (coronary artery disease) Hypertension Social History Smoking and tobacco/nicotine status: current every day tobacco/nicotine user Substance/Drug Use: never Do you think of yourself as: Straight/Heterosexual Female Reproductive History: Para: 2 Physical Exam Const: COMMON NORMALS: no acute distress GENERAL APPEARANCE: cooperative and comfortable ORIENTATION/CONSCIOUSNESS: Yes awake, Yes oriented to person, Yes oriented to place and Yes oriented to time HENMT: COMMON NORMALS: normocephalic, atraumatic and hearing grossly normal bilaterally HEAD & SCALP: normocephalic and atraumatic Resp: COMMON NORMALS: normal respiratory effort, No retractions, No use of accessory muscles and clear to auscultation bilaterally AUSCULTATION: clear to auscultation bilaterally Cardio: COMMON NORMALS: regular rate, regular rhythm and No murmurs present (Cardio) RATE: regular rate RHYTHM: regular rhythm Extremity: COMMON NORMALS: normal to inspection, capillary refill normal, no clubbing, cyanosis or edema, no calf tenderness and no pedal edema OTHER: Left knee joint exam no effusion no ligamentous instability or laxity Neuro: SENSORIUM/ORIENTATION: Yes oriented to person, Yes oriented to place and Yes oriented to time Skin: COMMON NORMALS: no rashes or lesions noted GENERAL SKIN EXAM: no rashes or lesions noted Course Vital Signs: Vital signs: Vital Signs Temperature 97.6 F 05/24/24 09:10 Pulse Rate 91 05/24/24 11:28 Respiratory Rate 17 05/24/24 09:10 Blood Pressure 121/83 05/24/24 11:28 Pulse Oximetry 95 05/24/24 11:28 Oxygen Delivery Me thod Room Air 05/24/24 09:10 MDM - Extremity Injury (Lower) Medical Decision Making Knee sprain. Exam of the knee and there is no ligamentous instability or laxity. Will discharge patient home and knee immobilizer states she cannot bear weight x-ray did not show any acute fracture. I will also place her on crutches. However follow-up with orthopedics Lab Data Radiology Impressions Knee X-Ray 05/24/24 09:13 IMPRESSION: No acute fracture or dislocation. All radiology interpretation(s) finalized by discharge Discharge Plan Discharge Patient Disposition: Home Clinical Impression: Left knee sprain Condition: Stable Prescriptions: Continued meloxicam 7.5 mg tablet 7.5 mg PO BID PRN (Reason: INFLAMATION AND PAIN.) Qty: 60 2RF No Action (DME) walker with seat See Rx Instructions .Route .MEDSUPPLY Qty: 1 0RF Rx Instructions: As directed gabapentin 300 mg capsule 300 mg PO Q8H 30 Days Qty: 90 3RF lorazepam 1 mg tablet 1 mg PO BID PRN (Reason: anxiety attacks) 30 Days Qty: 60 5RF mirtazapine 45 mg tablet 45 mg PO BEDTIME Qty: 30 11RF promethazine-DM 6.25-15 mg/5 mL syrup 5 ml PO Q4H PRN (Reason: cough) Qty: 118 0RF Rx Instructions: Do not exceed more than 30ml/24hour period (6 doses) acetaminophen 500 mg tablet 500 mg PO Q6H PRN (Reason: Moderate Pain (Scale Score 5-6)) albuterol sulfate 90 mcg/actuation HFA aerosol inhaler 2 puff inhalation Q6H PRN (Reason: Shortness Of Breath Or Wheezing) atorvastatin 20 mg tablet 20 mg PO DAILY benztropine 1 mg tablet 1 mg PO BID budesonide-formoterol [Symbicort] 160-4.5 mcg/actuation HFA aerosol inhaler 2 puff inhalation BID cetirizine 10 mg tablet 10 mg PO DAILY PRN (Reason: allergies) clozapine 50 mg tablet 50 mg PO BID Rx Instructions: along with [id number] tablets to= 250mg in am and 350mg in pm. clozapine 100 mg tablet See Rx Instructions .ROUTE .COMPLEX Rx Instructions: Take 2 tablets in the AM and 3 tablets in PM along with 50 mg to= 250mg in the am and 350mg in pm. dexlansoprazole 60 mg capsule,biphase delayed releas 60 mg PO DAILY PRN (Reason: Acid Reflux) tramadol 50 mg tablet 50 mg PO BID PRN (Reason: pain) 30 Days Qty: 60 1RF Rx Instructions: refill on or after 30 days citalopram [Celexa] 40 mg tablet 40 mg PO QAM Qty: 30 11RF oxybutynin chloride 15 mg tablet extended release 24hr 15 mg PO BEDTIME Qty: 90 1RF montelukast [Singulair] 10 mg tablet 10 mg PO DAILY fluticasone propionate 50 mcg/actuation spray,suspension 2 spray intranasal BID Discharge Orders: Discharge ED (Routine); Ordered 05/24/24 Ordered By: Cesar Neil Referrals: Evans Olvera MD [Primary Care Provider] - Patient Instructions: Opioid Safety, Pain Management Coding Level of Care Code ED Vocational Education Professional for 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
--- NOTE | 2024-05-24 09:13 | XRR_ITS ---
PROCEDURE INFORMATION: Exam: XR Left Knee Exam date and time: 05/24/2024 9:19 AM Age: 59 years old Clinical indication: Pain; Knee; Left TECHNIQUE: Imaging protocol: Radiologic exam of the left knee. Views: 3 views. COMPARISON: No relevant prior studies available. FINDINGS: Bones/joints: Tiny ossific density at the lateral tibial spine, likely from prior injury. Small medial knee joint marginal osteophytes. No knee joint effusion. No acute fracture or dislocation. Soft tissues: Normal. XR/XR knee LT 3V* [id number] IMPRESSION: No acute fracture or dislocation.
[2024-05-24 11:28] VITALS: BP 121/83; PULSE 91; O2SAT 95
--- NOTE | 2024-05-26 08:41 | DCPLANNER ---
messaged ortho for er f/u
== END 2024-05-24 11:30 | disposition home or self-care (01) ==
PROVIDERS: Emergency Provider Family Medicine; PCP Family Medicine Adult Medicine
DX: S83.92XA Sprain of unspecified site of left knee, initial encounter (principal); J44.1 Chronic obstructive pulmonary disease with (acute) exacerbation; Z72.0 Tobacco use; X58.XXXA Exposure to other specified factors, initial encounter
CPT/HCPCS: 29530; 73562; 97116; 99283; E0114

== ENCOUNTER → 2024-05-29 15:48 | Outpatient (BNVA) | payer MEDICARE, MEDICAID, SELFPAY ==
[2024-05-22 13:38] VITALS: BP 132/88; BMI 31.9
== END ==
PROVIDERS: PCP Family Medicine Adult Medicine; Visit Provider Psychiatry & Neurology Psychiatry
DX: Z79.899 Other long term (current) drug therapy (principal)
CPT/HCPCS: 80159

== ENCOUNTER → 2024-06-05 13:33 | Outpatient (BNVA) | payer MEDICARE, MEDICAID, SELFPAY ==
[2024-05-22 13:38] VITALS: BP 132/88; BMI 31.9
== END ==
PROVIDERS: PCP Family Medicine Adult Medicine; Visit Provider Psychiatry & Neurology Psychiatry
DX: F20.89 Other schizophrenia (principal); Z79.899 Other long term (current) drug therapy
CPT/HCPCS: 85007; 85027

== ENCOUNTER → 2024-07-03 13:16 | Outpatient (BNVA) | payer MEDICARE, OTHER, SELFPAY ==
[2024-05-22 13:38] VITALS: BP 132/88; BMI 31.9
== END ==
PROVIDERS: PCP Family Medicine Adult Medicine; Visit Provider Psychiatry & Neurology Psychiatry
DX: F20.89 Other schizophrenia (principal); Z79.899 Other long term (current) drug therapy
CPT/HCPCS: 85007; 85027

== ENCOUNTER 2024-07-18 10:47 | Emergency (ER) | payer MEDICARE, MEDICAID, SELFPAY ==
[2024-05-22 13:38] VITALS: BP 132/88; BMI 31.9
[2024-07-18 10:56] VITALS: BP 122/87; PULSE 99; RESP 18; TEMP 36.8; O2SAT 99
--- NOTE | 2024-07-18 10:59 | ED_ITS ---
HPI - Eye Problem General: Chief complaint: Eye Problems Stated complaint: Left eye problem Time Seen by Provider: 07/18/24 10:55 Source: patient Mode of arrival: ambulatory Limitations: no limitations History of Present Illness: 59-year-old female states that she has b een having some left eye pain over the last 2 days states that scratching type pain in that left eye she denies any fevers denies any redness or drainage denies any injuries denies any change in her vision. Related Data Home Medications Medication Instructions Recorded Confirmed acetaminophen 500 mg tablet 500 mg PO Q6H PRN Moderate Pain 05/14/24 07/08/24 (Scale Score 5-6) albuterol sulfate 90 mcg/actuation 2 puff inhalation Q6H PRN 05/14/24 07/08/24 aerosol inhaler Shortness Of Breath Or Wheezing atorvastatin 20 mg tablet 20 mg PO DAILY 05/14/24 07/08/24 cetirizine 10 mg tablet 10 mg PO DAILY PRN allergies 05/14/24 07/08/24 dexlansoprazole 60 mg 60 mg PO DAILY PRN Acid Reflux 05/14/24 07/08/24 capsule,biphase delayed release montelukast 10 mg tablet 10 mg PO DAILY 05/21/24 07/08/24 (Singulair) fluticasone propionate 50 2 spray intranasal BID 05/24/24 07/08/24 mcg/actuation nasal spray,suspension Previous Rx's Medication Instructions Recorded walker with seat #1 ea 08/25/23 gabapentin 300 mg capsule 300 mg PO Q8H chronic pain 30 days 02/01/24 #90 caps lorazepam 1 mg tablet 1 mg PO BID PRN anxiety attacks 30 03/04/24 days #60 tabs mirtazapine 45 mg tablet 45 mg PO BEDTIME #30 tabs 04/02/24 tramadol 50 mg tablet 50 mg PO BID PRN pain 30 days #60 05/19/24 tabs citalopram 40 mg tablet (Celexa) 40 mg PO QAM #30 tabs 05/20/24 budesonide-formoterol HFA 160 2 puff inhalation BID #10.2 grams 05/26/24 mcg-4.5 mcg/actuation aerosol inhaler (Symbicort) meloxicam 7.5 mg tablet 7.5 mg PO BID PRN INFLAMATION AND 06/02/24 PAIN. #60 tabs benztropine 1 mg tablet 1 mg PO BID #60 tabs 06/05/24 clozapine 100 mg tablet See Rx Instructions .Route 06/05/24 .COMPLEX #180 tabs clozapine 50 mg tablet 50 mg PO QAM #30 tabs 06/05/24 oxybutynin chloride 15 mg 15 mg PO BEDTIME #90 tabs 06/20/24 tablet,extended release 24 hr erythromycin 5 mg/gram (0.5 %) eye 1 applic ophthalmic (eye) Q6H 5 07/18/24 ointment (3.5 gram tube) days #3.5 grams Allergies Allergy/AdvReac Type Severity Reaction Status Date / Time ibuprofen Allergy Mild ALGY-Rash Verified 07/08/24 11:20 PFS ED PFSH: Medical History Non-compliance Schizophrenia Chest pain Bilateral lower extremity edema Anxiety disorder due to general medical condition with panic attack Hypoxemia COPD exacerbation Pain management contract agreement Tremor 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, severe, 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 Uterine prolapse Prediabetes Chronic bronchitis with COPD (chronic obstructive pulmonary disease) Mixed hyperlipidemia Psychiatric care Osteoarthritis (arthritis due to wear and tear of joints) Chronic pain disorder Right shoulder, bilateral lower extremities Obesity (BMI 30.0-34.9) GERD (gastroesophageal reflux disease) Surgical History Status post bilateral salpingo-oophorectomy (BSO) S/P laparoscopic assisted vaginal hysterectomy (LAVH) Family History Other CAD (coronary artery disease) Hypertension Social History Smoking and tobacco/nicotine status: current every day tobacco/nicotine user Substance/Drug Use: never Do you think of yourself as: Straight/Heterosexual Female Reproductive History: Para: 2 Physical Exam Const: COMMON NORMALS: no acute distress, patient oriented x3 and healthy appearing HENMT: COMMON NORMALS: normocephalic and atraumatic HEAD & SCALP: normocephalic and atraumatic Eye: COMMON NORMALS: Equal, round and reactive pupils present and EOMs intact bilaterally PUPIL: Yes Equal, round and reactive pupils present OTHER: Abrasion noted to left cornea small the wall ulcer Neck/C-Spine: COMMON NORMALS: full ROM and supple Chest: COMMONS NORMALS: normal inspection of the chest and normal palpation of entire chest wall Resp: COMMON NORMALS: normal respiratory effort Cardio: COMMON NORMALS: regular rate RATE: regular rate Extremity: COMMON NORMALS: normal to inspection and full ROM Neuro: COMMON NORMALS: patient oriented x3, moves all extremities and no focal motor deficits Psych: COMMON NORMALS: mental status grossly normal, Normal thought process present and cooperative THOUGHT PROCESS: Normal thought process present Skin: COMMON NORMALS: no rashes or lesions noted and no wounds GENERAL SKIN EXAM: no rashes or lesions noted Course Vital Signs: Vital signs: Vital Signs Temperature 98.2 F 07/18/24 10:56 Pulse Rate 99 07/18/24 10:56 Respiratory Rate 18 07/18/24 10:56 Blood Pressure 122/87 07/18/24 10:56 Pulse Oximetry 99 07/18/24 10:56 Oxygen Delivery Me thod Room Air 07/18/24 10:56 MDM - Eye Problem Medical Decision Making Patient presents here with left eye pain does have a corneal abrasion we will place her on erythromycin she stable for discharge follow-up with PCP return if worsening. Medical Records I reviewed the patient's medical records. No radiology studies performed this visit Discharge Plan Discharge Patient Disposition: Home Clinical Impression: Corneal abrasion Condition: Stable Prescriptions: New erythromycin 5 mg/gram (0.5 %) ointment 1 applic ophthalmic (eye) Q6H 5 Days Qty: 3.5 0RF No Action (DME) walker with seat See Rx Instructions .Route .MEDSUPPLY Qty: 1 0RF Rx Instructions: As directed gabapentin 300 mg capsule 300 mg PO Q8H 30 Days Qty: 90 3RF lorazepam 1 mg tablet 1 mg PO BID PRN (Reason: anxiety attacks) 30 Days Qty: 60 5RF mirtazapine 45 mg tablet 45 mg PO BEDTIME Qty: 30 11RF acetaminophen 500 mg tablet 500 mg PO Q6H PRN (Reason: Moderate Pain (Scale Score 5-6)) albuterol sulfate 90 mcg/actuation HFA aerosol inhaler 2 puff inhalation Q6H PRN (Reason: Shortness Of Breath Or Wheezing) atorvastatin 20 mg tablet 20 mg PO DAILY cetirizine 10 mg tablet 10 mg PO DAILY PRN (Reason: allergies) dexlansoprazole 60 mg capsule,biphase delayed releas 60 mg PO DAILY PRN (Reason: Acid Reflux) tramadol 50 mg tablet 50 mg PO BID PRN (Reason: pain) 30 Days Qty: 60 1RF Rx Instructions: refill on or after 30 days citalopram [Celexa] 40 mg tablet 40 mg PO QAM Qty: 30 11RF clozapine 100 mg tablet See Rx Instructions .ROUTE .COMPLEX Qty: 180 11RF Rx Instructions: Take 2 tablets in the AM and 4 tablets in PM. clozapine 50 mg tablet 50 mg PO QAM Qty: 30 11RF Rx Instructions: Take one tablet in the morning with 200 mg dose of clozapine. benztropine 1 mg tablet 1 mg PO BID Qty: 60 11RF budesonide-formoterol [Symbicort] 160-4.5 mcg/actuation HFA aerosol inhaler 2 puff inhalation BID Qty: 10.2 2RF meloxicam 7.5 mg tablet 7.5 mg PO BID PRN (Reason: INFLAMATION AND PAIN.) Qty: 60 2RF oxybutynin chloride 15 mg tablet extended release 24hr 15 mg PO BEDTIME Qty: 90 1RF montelukast [Singulair] 10 mg tablet 10 mg PO DAILY fluticasone propionate 50 mcg/actuation spray,suspension 2 spray intranasal BID Discharge Orders: Discharge ED (Routine); Ordered 07/18/24 Ordered By: Kade Smith Referrals: Evans Olvera MD [Primary Care Provider] - 4-7 days Discharge Diet: Advance as tolerated Discharge Activity: Resume usual activity Patient Instructions: Corneal Abrasion (ED) Coding Level of Care Code ED 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
[2024-07-18] MEDS: fluorescein 1 mg Strip EYE-LEFT (11:00)
[2024-07-18 11:16] VITALS: BP 129/86; PULSE 97; RESP 16; O2SAT 95
== END 2024-07-18 11:15 | disposition home or self-care (01) ==
PROVIDERS: Emergency Provider Emergency Medicine; PCP Family Medicine Adult Medicine
DX: S05.02XA Injury of conjunctiva and corneal abrasion without foreign body, left eye, initial encounter (principal); Z72.0 Tobacco use; E78.2 Mixed hyperlipidemia; J44.9 Chronic obstructive pulmonary disease, unspecified; X58.XXXA Exposure to other specified factors, initial encounter
CPT/HCPCS: 99283

== ENCOUNTER 2024-08-08 08:35 | Emergency (ER) | payer MEDICARE, SELFPAY ==
[2024-05-22 13:38] VITALS: BP 132/88; BMI 31.9
[2024-08-08 08:44] VITALS: BP 144/83; PULSE 92; RESP 18; TEMP 36.7; O2SAT 99; BMI 27.4
--- NOTE | 2024-08-08 08:44 | ECG_ITS ---
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
[2024-08-08 09:05] LABS: Basophils % 0.2 %; Eosinophils % 0.1 %; Hematocrit 39.8 % (36-47); Lymphocytes # 1.3 10^3/uL (0.8-4.8); Lymphocytes % 14.9 %; Mean Corpuscular HGB Conc 32.4 g/dL (30-55); Mean Corpuscular Hemoglobin 29.7 pg (27-33); Mean Corpuscular Volume 91.5 fl (85-98); Mean Platelet Volume 9.4 fL (7.4-10.4); Monocytes # 0.9 10^3/uL (0.2-0.9); Monocytes % 10.6 %; Neutrophils # 6.22 10^3/uL (1.8-7.7); Neutrophils % 73.8 %; Nucleated Red Blood Cells % 0 %; Platelet Count 267 10^3/cmm (157-399); Red Blood Count 4.35 10^6/uL (3.85-5.65); Red Cell Distribution Width 14.5 % (12.1-15.1); White Blood Count 8.43 10^3/uL (3.29-11.43)
[2024-08-08 09:21] LABS: Alanine Aminotransferase 38 U/L (0-33); Albumin Level 4.1 g/dL (3.5-5.2); Alkaline Phosphatase 158 U/L (35-105); Anion Gap 17.4 (5-19); Aspartate Amino Transferase 26 U/L (0-32); Blood Urea Nitrogen 9 mg/dL (8-23); Calcium 9.5 mg/dL (8.5-10.5); Carbon Dioxide 25 mmol/L (22-29); Chloride 98 mmol/L (98-107); Creatinine Clr Calc Pharmacy 77.2766; Globulin 2.8 g/dL (1.3-4.6); Glomerular Filtration Rate 85.4 mL/min (90-130); Glucose 122 mg/dL (65-115); Osmolality Calculated 282 mOsm/kg (285-295); Potassium 4.4 mmol/L (3.5-5.1); Sodium 136 mmol/L (136-145); Total Bilirubin 0.2 mg/dL (0.15-1.2); Total Protein 6.9 g/dL (6.6-8.7)
[2024-08-08] MEDS: sodium chloride 0.9% 1,000 ML 999 ML IV (09:25)
[2024-08-08 09:32] LABS: Acetaminophen < 5.0 ug/mL (10-30); Alcohol Level < 10 mg/dL (0-10); Salicylate < 0.3 mg/dL (3-10)
[2024-08-08 10:02] LABS: Covid PCR NEGATIVE (Negative); Influenza A NEGATIVE (Negative); Influenza B NEGATIVE (Negative); Respiratory Syncytial Virus Ce NEGATIVE (Negative)
--- NOTE | 2024-08-08 10:32 | ED_ITS ---
HPI - General Adult 2 General: Chief complaint: General Medical Stated complaint: behavioral Time Seen by Provider: 08/08/24 08:44 History of Present Illness: Chief complaint is out of anxiety medicine and anxiety. The patient states that she takes 0.5 mg of Ativan twice daily. She states 1 week ago her medication disappeared from her apartment and she thinks someone stole them. She states that she has all her other medications. She states that ever since then she has been feeling very anxious. She states she also has what she calls drop sees where her legs will give out at times. She states she has chronic back pain. When she gets up sometimes her left leg will give out. She states is because of pain. She states however if she walks and can walk for a while then she does fine. She just when she first tries to get up that she has trouble. She has some chronic incontinence of urine which is unchanged. No fever. No drug use. No alcohol use. She has not hit her head or had any injuries. No loss of consciousness. No headache or chest pain or shortness of breath or cough or abdominal pain or vomiting or diarrhea. No suicidal thoughts. She states she does have some chronic hallucinations where the scars on her body will talk to her but she states nothing that is changed. No thoughts of harming herself or others. She feels safe at home except for is having troubles with her anxiety. Related Data Home Medications Medication Instructions Recorded Confirmed acetaminophen 500 mg tablet 500 mg PO Q6H PRN Moderate Pain 05/14/24 08/08/24 (Scale Score 5-6) dexlansoprazole 60 mg 60 mg PO DAILY PRN Acid Reflux 05/14/24 08/08/24 capsule,biphase delayed release montelukast 10 mg tablet 10 mg PO DAILY 05/21/24 08/08/24 (Singulair) fluticasone propionate 50 2 spray intranasal BID PRN 05/24/24 08/08/24 mcg/actuation nasal allergies spray,suspension albuterol sulfate 90 mcg/actuation 2 puff inhalation Q4H PRN 08/08/24 08/08/24 aerosol inhaler Shortness Of Breath Or Wheezing Previous Rx's Medication Instructions Recorded walker with seat #1 ea 08/25/23 gabapentin 300 mg capsule 300 mg PO Q8H chronic pain 30 days 02/01/24 #90 caps mirtazapine 45 mg tablet 45 mg PO BEDTIME #30 tabs 04/02/24 tramadol 50 mg tablet 50 mg PO BID PRN pain 30 days #60 05/19/24 tabs citalopram 40 mg tablet (Celexa) 40 mg PO QAM #30 tabs 05/20/24 budesonide-formoterol HFA 160 2 puff inhalation BID #10.2 grams 05/26/24 mcg-4.5 mcg/actuation aerosol inhaler (Symbicort) meloxicam 7.5 mg tablet 7.5 mg PO BID PRN INFLAMATION AND 06/02/24 PAIN. #60 tabs benztropine 1 mg tablet 1 mg PO BID #60 tabs 06/05/24 clozapine 100 mg tablet See Rx Instructions .Route 06/05/24 .COMPLEX #180 tabs clozapine 50 mg tablet 50 mg PO QAM #30 tabs 06/05/24 oxybutynin chloride 15 mg 15 mg PO BEDTIME #90 tabs 06/20/24 tablet,extended release 24 hr lorazepam 0.5 mg tablet (Ativan) 0.5 mg PO BID PRN anxiety #10 tabs 08/08/24 lorazepam 1 mg tablet 1 mg PO BID PRN anxiety attacks 30 08/08/24 days #60 tabs Allergies Allergy/AdvReac Type Severity Reaction Status Date / Time ibuprofen Allergy Mild ALGY-Rash Verified 07/08/24 11:20 ON LICENSE OF [facility] ED 2 PFSH: Medical History Non-compliance Schizophrenia Chest pain Bilateral lower extremity edema Anxiety disorder due to general medical condition with panic attack Hypoxemia COPD exacerbation Pain management contract agreement Tremor 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, severe, 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 Uterine prolapse Prediabetes Chronic bronchitis with COPD (chronic obstructive pulmonary disease) Mixed hyperlipidemia Psychiatric care Osteoarthritis (arthritis due to wear and tear of joints) Chronic pain disorder Right shoulder, bilateral lower extremities Obesity (BMI 30.0-34.9) GERD (gastroesophageal reflux disease) Surgical History Status post bilateral salpingo-oophorectomy (BSO) S/P laparoscopic assisted vaginal hysterectomy (LAVH) Family History Other CAD (coronary artery disease) Hypertension Social History Smoking and tobacco/nicotine status: current every day tobacco/nicotine user Substance/Drug Use: never Do you think of yourself as: Straight/Heterosexual Female Reproductive History: Para: 2 Physical Exam 2 Narrative: EXAM NARRATIVE: Patient is alert and oriented. She has clear sensorium. She shows ability to reason. Denies suicidal ideations. She is not responding to apparent hallucinations. She gets up and she is able to ambulate around the room for me. She has no vertebral tenderness on her back. She moves freely in the bed. She has intact sensation in her inner thighs and proximally and distally. She can plantarflex and dorsiflex at the great hallux bilaterally and at the ankle. Patient speech is clear. Const: COMMON NORMALS: no acute distress and patient oriented x3 GENERAL APPEARANCE: cooperative ORIENTATION/CONSCIOUSNESS: Yes awake HENMT: COMMON NORMALS: normocephalic, atraumatic, Normal external nose present and moist oral mucous membranes HEAD & SCALP: normocephalic and atraumatic FACE & SINUS: normal facial exam NOSE: Normal external nose present Eye: COMMON NORMALS: Equal, round and reactive pupils present, EOMs intact bilaterally and conjunctivae normal CONJUNCTIVA: Yes conjunctivae normal P UPIL: Yes Equal, round and reactive pupils present Neck/C-Spine: COMMON NORMALS: supple GENERAL: Yes normal visual inspection Resp: COMMON NORMALS: normal respiratory effort, No retractions, No use of accessory muscles and clear to auscultation bilaterally AUSCULTATION: clear to auscultation bilaterally Cardio: COMMON NORMALS: regular rate and regular rhythm RATE: regular rate RHYTHM: regular rhythm GI: COMMON NORMALS: Soft to palpation and non-tender PALPATION: Yes Soft to palpation Back/Pelvis: LUMBAR SPINE/LOWER BACK: Yes lumbar ROM normal Extremity: COMMON NORMALS: no calf tenderness and no pedal edema Neuro: COMMON NORMALS: patient oriented x3 SPEECH: speech normal Psych: COMMON NORMALS: mental status grossly normal, cooperative and speech normal SPEECH: Yes normal speech Skin: COMMON NORMALS: no rashes or lesions noted GENERAL SKIN EXAM: no rashes or lesions noted Course 2 Vital Signs: Vital signs: Vital Signs Temperature 98.1 F 08/08/24 08:44 Pulse Rate 92 08/08/24 11:27 Respiratory Rate 18 08/08/24 08:44 Blood Pressure 145/88 08/08/24 11:27 Pulse Oximetry 98 08/08/24 11:27 Oxygen Delivery Me thod Room Air 08/08/24 08:44 MDM - General Adult Medical Decision Making Patient presents complaining of both dizziness and been out of her anxiety medication. She states that she thinks she just needs to get back on her Ativan should be okay. She states she is supposed to take 0.5 mg twice daily. She states that she does have drops he problems as well and this has been going on for a long time but worse for the last week since she ran out of her Ativan. No loss of consciousness. Does not suggest seizures. She has not had any injuries. No headache. She denies having chest pain or symptoms to suggest syncope. She states is when she first gets up and starts walking her leg will give out because of chronic back problems. She denies any focal weakness in her legs. She states when she is up and walking and gets the stiffness out she can walk fine. On exam she is neurologically intact. She denies any drug use. She denies suicidal or homicidal ideation. Patient wants outpatient management. I ordered CBC CMP salicylate and acetaminophen level alcohol level and EKG. Patient's white count is within normal limits. COVID influenza and RSV are negative. Salicylate level and acetaminophen level and alcohol level are not elevated. Patient speech is clear. She is not suicidal. She wants to continue outpatient management. I advised patient Ativan is controlled substance and risk of abuse. Will prescribe short course of Ativan however as I do not want her to develop significant Ativan withdrawal. She has a walker at home. I advised her not to ambulate without her walker. Advised fall precautions. She denies new neurologic symptoms to suggest acute cauda equina or significant neurologic deficit. She denies any new back pain. She denies back injury. She denies IV drug use to suggest epidural abscess. She has no vertebral tenderness on her back. Will prescribe short course of Ativan and discharged home with close outpatient follow-up and return instructions and fall precautions. Patient EKG to my dictation shows sinus tachycardia with a rate [address] segment changes. Lab Data 08/08/24 08:57 08/08/24 08:57 Laboratory Results WBC 8.43 10^3/uL (3.29-11.43) 08/08/24 08:57 RBC 4.35 10^6/uL (3.85-5.65) 08/08/24 08:57 Hgb 12.90 g/dL (11.27-16.99) 08/08/24 08:57 Hct 39.8 % (36-47) 08/08/24 08:57 MCV 91.5 fl (85-98) 08/08/24 08:57 MCH 29.7 pg (27-33) 08/08/24 08:57 MCHC 32.4 g/dL (30-55) 08/08/24 08:57 RDW 14.5 % (12.1-15.1) 08/08/24 08:57 Plt Count 267 10^3/cmm (157-399) 08/08/24 08:57 MPV 9.4 fL (7.4-10.4) 08/08/24 08:57 Neut % (Auto) 73.8 % 08/08/24 08:57 Lymph % (Auto) 14.9 % 08/08/24 08:57 [place] % (Auto) 10.6 % 08/08/24 08:57 Eos % (Auto) 0.1 % 08/08/24 08:57 Baso % (Auto) 0.2 % 08/08/24 08:57 Neut # (Auto) 6.22 10^3/uL (1.8-7.7) 08/08/24 08:57 Lymph # (Auto) 1.3 10^3/uL (0.8-4.8) 08/08/24 08:57 [place] # (Auto) 0.9 10^3/uL (0.2-0.9) 08/08/24 08:57 Eos # (Auto) 0.0 10^3/uL (0.0-0.8) 08/08/24 08:57 Baso # (Auto) 0.0 10^3/uL (0.0-0.1) 08/08/24 08:57 Nucleated RBC % (auto) 0 % 08/08/24 08:57 Nucleated RBCs # 0.0 /100WBC 08/08/24 08:57 Sodium 136 mmol/L (136-145) 08/08/24 08:57 Potassium 4.4 mmol/L (3.5-5.1) 08/08/24 08:57 Chloride 98 mmol/L (98-107) 08/08/24 08:57 Carbon Dioxide 25 mmol/L (22-29) 08/08/24 08:57 Anion Gap 17.4 (5-19) 08/08/24 08:57 BUN 9 mg/dL (8-23) 08/08/24 08:57 Creatinine 0.7 mg/dL (0.5-0.9) 08/08/24 08:57 GFR Calculation 85.4 mL/min (90-130) L 08/08/24 08:57 Glucose 122 mg/dL (65-115) H 08/08/24 08:57 Calculated Osmolality 282 mOsm/kg (285-295) L 08/08/24 08:57 Calcium 9.5 mg/dL (8.5-10.5) 08/08/24 08:57 Total Bilirubin 0.2 mg/dL (0.15-1.2) 08/08/24 08:57 AST 26 U/L (0-32) 08/08/24 08:57 ALT 38 U/L (0-33) H 08/08/24 08:57 Alkaline Phosphatase 158 U/L (35-105) H 08/08/24 08:57 Total Protein 6.9 g/dL (6.6-8.7) 08/08/24 08:57 Albumin 4.1 g/dL (3.5-5.2) 08/08/24 08:57 Globulin 2.8 g/dL (1.3-4.6) 08/08/24 08:57 Urine Color Yellow (Yellow) 08/08/24 10:00 Urine Appearance Clear (CLEAR) 08/08/24 10:00 Urine pH 6.5 (5-7) 08/08/24 10:00 Ur Specific [place] 1.004 (1.005-1.030) L 08/08/24 10:00 Urine Protein Negative (Negative) 08/08/24 10:00 Urine Glucose (UA) Negative (Normal) 08/08/24 10:00 Urine Ketones Negative (Negative) 08/08/24 10:00 Urine Blood Negative (Negative) 08/08/24 10:00 Urine Nitrate Negative (Negative) 08/08/24 10:00 Urine Bilirubin Negative (Negative) 08/08/24 10:00 Urine Urobilinogen 0.2 mg/dL (Negative) 08/08/24 10:00 Ur Leukocyte Esterase Negative (Negative) 08/08/24 10:00 Urine RBC 0-2 /hpf (0-2) 08/08/24 10:00 Urine WBC 0-5 /hpf (0-5) 08/08/24 10:00 Ur Squamous Epith Cells 0-5 /hpf (0-5) 08/08/24 10:00 Amorphous Sediment Not Reportable 08/08/24 10:00 Urine Bacteria None seen /hpf (NONE) 08/08/24 10:00 Hyaline Casts 0-4 /lpf H 08/08/24 10:00 Salicylates < 0.3 mg/dL (3-10) L 08/08/24 08:57 Urine Opiates Screen Negative ng/mL (Negative) 08/08/24 10:00 Acetaminophen < 5.0 ug/mL (10-30) L 08/08/24 08:57 Ur Barbiturates Screen Negative ng/mL (Negative) 08/08/24 10:00 Ur Phencyclidine Scrn Negative ng/mL (Negative) 08/08/24 10:00 Ur Amphetamines Screen Negative ng/mL (Negative) 08/08/24 10:00 U Benzodiazepines Scrn Negative ng/mL (Negative) 08/08/24 10:00 Urine Cocaine Screen Negative ng/mL (Negative) 08/08/24 10:00 U Marijuana (THC) Screen Negative ng/mL (Negative) 08/08/24 10:00 Ethyl Alcohol < 10 mg/dL (0-10) 08/08/24 08:57 Coronavirus (PCR) Negative (Negative) 08/08/24 09:21 Influenza A (PCR) Negative (Negative) 08/08/24 09:21 Influenza Type B (PCR) Negative (Negative) 08/08/24 09:21 RSV (PCR) Negative (Negative) 08/08/24 09:21 All radiology interpretation(s) finalized by discharge Discharge Plan Discharge Patient Disposition: Home Clinical Impression: Anxiety Condition: Stable Prescriptions: New lorazepam [Ativan] 0.5 mg tablet 0.5 mg PO BID PRN (Reason: anxiety) Qty: 10 0RF No Action (DME) walker with seat See Rx Instructions .Route .MEDSUPPLY Qty: 1 0RF Rx Instructions: As directed gabapentin 300 mg capsule 300 mg PO Q8H 30 Days Qty: 90 3RF mirtazapine 45 mg tablet 45 mg PO BEDTIME Qty: 30 11RF acetaminophen 500 mg tablet 500 mg PO Q6H PRN (Reason: Moderate Pain (Scale Score 5-6)) dexlansoprazole 60 mg capsule,biphase delayed releas 60 mg PO DAILY PRN (Reason: Acid Reflux) tramadol 50 mg tablet 50 mg PO BID PRN (Reason: pain) 30 Days Qty: 60 1RF Rx Instructions: refill on or after 30 days citalopram [Celexa] 40 mg tablet 40 mg PO QAM Qty: 30 11RF clozapine 100 mg tablet See Rx Instructions .ROUTE .COMPLEX Qty: 180 11RF Rx Instructions: Take 2 tablets in the AM and 4 tablets in PM. clozapine 50 mg tablet 50 mg PO QAM Qty: 30 11RF Rx Instructions: Take one tablet in the morning with 200 mg dose of clozapine. benztropine 1 mg tablet 1 mg PO BID Qty: 60 11RF budesonide-formoterol [Symbicort] 160-4.5 mcg/actuation HFA aerosol inhaler 2 puff inhalation BID Qty: 10.2 2RF meloxicam 7.5 mg tablet 7.5 mg PO BID PRN (Reason: INFLAMATION AND PAIN.) Qty: 60 2RF oxybutynin chloride 15 mg tablet extended release 24hr 15 mg PO BEDTIME Qty: 90 1RF lorazepam 1 mg tablet 1 mg PO BID PRN (Reason: anxiety attacks) 30 Days Qty: 60 5RF montelukast [Singulair] 10 mg tablet 10 mg PO DAILY albuterol sulfate 90 mcg/actuation HFA aerosol inhaler 2 puff inhalation Q4H PRN (Reason: Shortness Of Breath Or Wheezing) fluticasone propionate 50 mcg/actuation spray,suspension 2 spray intranasal BID PRN (Reason: allergies) Discharge Orders: Discharge ED (Routine); Ordered 08/08/24 Ordered By: Chilango Bauer Referrals: Evans Olvera MD [Primary Care Provider] - Activity Restrictions/Additional Instructions: Do not take other benzodiazepines such as other doses of Ativan. Make sure to contact your physician as soon as possible for follow-up. Come back if passing out, new leg weakness, any change or worsening of your condition, new back pain, fever, vomiting, chest pain or shortness of breath, you do not feel safe at home, thoughts of harming yourself or others, hallucinations are advising you to harm others or yourself, any worse or concerns. Please follow-up on your test results with your doctor. Follow-up for recheck with your doctor in 3 to 4 days. Coding Level of Care Code ED [employer] Senior [employer] for 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
[2024-08-08 10:49] LABS: Bilirubin Urine Negative (Negative); Blood Urine Negative (Negative); Glucose Urine UA Negative (Normal); Ketones Urine Negative (Negative); Leukocyte Esterase Urine Negative (Negative); Nitrate Urine Negative (Negative); Protein Urine Negative (Negative); Specific Gravity, Urine 1.004 (1.005-1.030); Urine Appearance Clear (CLEAR); Urine Color Yellow (Yellow); Urobilinogen Urine 0.2 mg/dL (Negative); pH Urine 6.5 (5-7)
[2024-08-08 10:54] LABS: Amphetamines Screen Urine Negative (Negative); Barbiturates Screen Urine Negative (Negative); Benzodiazepines Screen Urine Negative (Negative); Cocaine Screen Urine Negative (Negative); Opiate Screen Urine Negative (Negative); PCP Screen Urine Negative (Negative); THC Screen Urine Negative (Negative)
[2024-08-08 11:10] LABS: Bacteria Urine None Seen /hpf; Hyaline Casts Urine 0-4 /lpf; RBC Urine 0-2 /hpf (0-2); Squamous Epithelial Cell Urine 0-5 /hpf (0-5); WBC Urine 0-5 /hpf (0-5)
[2024-08-08 11:27] VITALS: BP 145/88; PULSE 92; O2SAT 98
== END 2024-08-08 11:28 | disposition home or self-care (01) ==
PROVIDERS: Emergency Provider Emergency Medicine; PCP Family Medicine Adult Medicine
DX: F41.9 Anxiety disorder, unspecified (principal); Z11.52 Encounter for screening for COVID-19; Z72.0 Tobacco use; E78.2 Mixed hyperlipidemia; J44.9 Chronic obstructive pulmonary disease, unspecified
CPT/HCPCS: 12345; 36415; 80053; 80306; 80307; 81001; 85025; 87637; 93005; 99284; J7030

== ENCOUNTER 2024-08-08 17:24 | Emergency (ER) | payer MEDICARE, MEDICAID, SELFPAY ==
[2024-05-22 13:38] VITALS: BP 132/88; BMI 31.9
[2024-08-08 18:05] VITALS: BP 105/76; PULSE 103; RESP 17; TEMP 36.9; O2SAT 94; BMI 31.8
[2024-08-08 18:45] VITALS: RESP 18
--- NOTE | 2024-08-08 19:53 | W.ED.ANXIETY ---
HPI - Anxiety General: Chief Complaint: Anxiety Stated Complaint: mental health eval Time Seen by Provider: 08/08/24 18:23 History of Present Illness: 59-year-old female who presents again today to the emergency room with anxiety. She was here earlier today. She continues to deny any suicidal thoughts or homicidal thoughts. She is not having any hallucinations at this time. She says she does think she needs to go stay in the stress unit Related Data Home Medications Medication Instructions Recorded Confirmed acetaminophen 500 mg tablet 500 mg PO Q6H PRN Moderate Pain 05/14/24 08/08/24 (Scale Score 5-6) dexlansoprazole 60 mg 60 mg PO DAILY PRN Acid Reflux 05/14/24 08/08/24 capsule,biphase delayed release montelukast 10 mg tablet 10 mg PO DAILY 05/21/24 08/08/24 (Singulair) fluticasone propionate 50 2 spray intranasal BID PRN 05/24/24 08/08/24 mcg/actuation nasal allergies spray,suspension albuterol sulfate 90 mcg/actuation 2 puff inhalation Q4H PRN 08/08/24 08/08/24 aerosol inhaler Shortness Of Breath Or Wheezing Previous Rx's Medication Instructions Recorded walker with seat #1 ea 08/25/23 gabapentin 300 mg capsule 300 mg PO Q8H chronic pain 30 days 02/01/24 #90 caps mirtazapine 45 mg tablet 45 mg PO BEDTIME #30 tabs 04/02/24 tramadol 50 mg tablet 50 mg PO BID PRN pain 30 days #60 05/19/24 tabs citalopram 40 mg tablet (Celexa) 40 mg PO QAM #30 tabs 05/20/24 budesonide-formoterol HFA 160 2 puff inhalation BID #10.2 grams 05/26/24 mcg-4.5 mcg/actuation aerosol inhaler (Symbicort) meloxicam 7.5 mg tablet 7.5 mg PO BID PRN INFLAMATION AND 06/02/24 PAIN. #60 tabs benztropine 1 mg tablet 1 mg PO BID #60 tabs 06/05/24 clozapine 100 mg tablet See Rx Instructions .Route 06/05/24 .COMPLEX #180 tabs clozapine 50 mg tablet 50 mg PO QAM #30 tabs 06/05/24 oxybutynin chloride 15 mg 15 mg PO BEDTIME #90 tabs 06/20/24 tablet,extended release 24 hr lorazepam 0.5 mg tablet (Ativan) 0.5 mg PO BID PRN anxiety #10 tabs 08/08/24 lorazepam 1 mg tablet 1 mg PO BID PRN anxiety attacks 30 08/08/24 days #60 tabs Allergies Allergy/AdvReac Type Severity Reaction Status Date / Time ibuprofen Allergy Mild ALGY-Rash Verified 07/08/24 11:20 Review of Systems Narrative: Constitutional symptoms: Negative except as documented in HPI. Skin symptoms: Negative except as documented in HPI. Eye symptoms: Negative except as documented in HPI. ENMT symptoms: Negative except as documented in HPI. Respiratory symptoms: Negative except as documented in HPI. Cardiovascular symptoms: Negative except as documented in HPI. Gastrointestinal symptoms: Negative except as documented in HPI. Genitourinary symptoms: Negative except as documented in HPI. Musculoskeletal symptoms: Negative except as documented in HPI. Neurologic symptoms: Negative except as documented in HPI. Psychiatric symptoms: Negative except as documented in HPI. Endocrine symptoms: Negative except as documented in HPI. 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 Uterine prolapse Prediabetes Chronic bronchitis with COPD (chronic obstructive pulmonary disease) Mixed hyperlipidemia Psychiatric care Osteoarthritis (arthritis due to wear and tear of joints) Chronic pain disorder Right shoulder, bilateral lower extremities Obesity (BMI 30.0-34.9) GERD (gastroesophageal reflux disease) Surgical History Status post bilateral salpingo-oophorectomy (BSO) S/P laparoscopic assisted vaginal hysterectomy (LAVH) Family History Other CAD (coronary artery disease) Hypertension Social History Smoking and tobacco/nicotine status: current every day tobacco/nicotine user Substance/Drug Use: never Do you think of yourself as: Straight/Heterosexual Female Reproductive History: Para: 2 Physical Exam Narrative: EXAM NARRATIVE: General: Alert, no acute distress. Skin: Warm, dry. Head: Normocephalic, atraumatic. Neck: Supple, trachea midline. Eye: Extraocular movements are intact. Ears, nose, mouth and throat: mucosa moist. Cardiovascular: Regular, Normal peripheral perfusion. Respiratory: Lungs are clear to auscultation, respirations are non-labored, breath sounds are equal, Symmetrical chest wall expansion. Gastrointestinal: Soft, Nontender, Non distended Musculoskeletal: Normal ROM, no deformity. Neurological: Alert and oriented, No focal neurological deficit observed. Psychiatric: Cooperative, somewhat anxious. Denies homicidal or suicidal ideation. No current hallucinations Course Vital Signs: Vital signs: Vital Signs Temperature 98.4 F 08/08/24 18:05 Pulse Rate 103 H 08/08/24 18:05 Respiratory Rate 18 08/08/24 18:45 Blood Pressure 105/76 08/08/24 18:05 Pulse Oximetry 94 08/08/24 18:05 Oxygen Delivery Me thod Room Air 08/08/24 18:05 MDM - Anxiety Medical Decision Making Consultation: I spoke with Dr. Conrad who was familiar with the patient. He does not feel she qualifies for inpatient admission. He says in the past anytime she checked again she would leave within 24 hours. Assessment and plan: Anxiety ?IM Ativan in the emergency room. - Discharged home - Discussed plan with patient. Answered any questions. - Evaluation and treatment of this problem were appropriate in the emergency setting. No radiology studies performed this visit Discharge Plan Discharge Patient Disposition: Home Clinical Impression: Acute anxiety Condition: Stable Prescriptions: No Action (DME) walker with seat See Rx Instructions .Route .MEDSUPPLY Qty: 1 0RF Rx Instructions: As directed gabapentin 300 mg capsule 300 mg PO Q8H 30 Days Qty: 90 3RF mirtazapine 45 mg tablet 45 mg PO BEDTIME Qty: 30 11RF acetaminophen 500 mg tablet 500 mg PO Q6H PRN (Reason: Moderate Pain (Scale Score 5-6)) dexlansoprazole 60 mg capsule,biphase delayed releas 60 mg PO DAILY PRN (Reason: Acid Reflux) tramadol 50 mg tablet 50 mg PO BID PRN (Reason: pain) 30 Days Qty: 60 1RF Rx Instructions: refill on or after 30 days citalopram [Celexa] 40 mg tablet 40 mg PO QAM Qty: 30 11RF clozapine 100 mg tablet See Rx Instructions .ROUTE .COMPLEX Qty: 180 11RF Rx Instructions: Take 2 tablets in the AM and 4 tablets in PM. clozapine 50 mg tablet 50 mg PO QAM Qty: 30 11RF Rx Instructions: Take one tablet in the morning with 200 mg dose of clozapine. benztropine 1 mg tablet 1 mg PO BID Qty: 60 11RF budesonide-formoterol [Symbicort] 160-4.5 mcg/actuation HFA aerosol inhaler 2 puff inhalation BID Qty: 10.2 2RF meloxicam 7.5 mg tablet 7.5 mg PO BID PRN (Reason: INFLAMATION AND PAIN.) Qty: 60 2RF oxybutynin chloride 15 mg tablet extended release 24hr 15 mg PO BEDTIME Qty: 90 1RF lorazepam 1 mg tablet 1 mg PO BID PRN (Reason: anxiety attacks) 30 Days Qty: 60 5RF montelukast [Singulair] 10 mg tablet 10 mg PO DAILY albuterol sulfate 90 mcg/actuation HFA aerosol inhaler 2 puff inhalation Q4H PRN (Reason: Shortness Of Breath Or Wheezing) lorazepam [Ativan] 0.5 mg tablet 0.5 mg PO BID PRN (Reason: anxiety) Qty: 10 0RF fluticasone propionate 50 mcg/actuation spray,suspension 2 spray intranasal BID PRN (Reason: allergies) Discharge Orders: Discharge ED (Routine); Ordered 08/08/24 Ordered By: Carmela Nelson Referrals: Evans Olvera MD [Primary Care Provider] - Discharge Diet: Usual diet Discharge Activity: Increase activity as tolerated Patient Instructions: Opioid Safety, Pain Management Activity Restrictions/Additional Instructions: Please follow-up with the [facility] crisis [facility] tomorrow or the next day. Phone number is [phone]. There is a 24-hour crisis hotline with the number of [phone]. Hours of operation are 8 AM to 6 PM. Thank you for choosing [facility] for your healthcare needs today. Please realize this is an emergency room and that we are providing you with a medical screening exam and this may not be complete and all inclusive of all the testing and or work up that you may need to determine your ailment or severity of your illness. You have been screened and evaluated and felt safe for discharge. Health conditions do change or evolve sometimes and as such it is important that you follow up with your Primary Doctor to be re checked, 3-5 days is a general good time frame for follow up. 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
== END 2024-08-08 20:02 | disposition home or self-care (01) ==
PROVIDERS: Emergency Provider Emergency Medicine; PCP Family Medicine Adult Medicine
DX: F41.8 Other specified anxiety disorders (principal); Z72.0 Tobacco use; J44.9 Chronic obstructive pulmonary disease, unspecified; E78.2 Mixed hyperlipidemia
CPT/HCPCS: 99283

== ENCOUNTER → 2024-08-14 10:49 | Outpatient (BNVA) | payer MEDICARE, MEDICAID, SELFPAY ==
[2024-05-22 13:38] VITALS: BP 132/88; BMI 31.9
== END ==
PROVIDERS: PCP Family Medicine Adult Medicine; Visit Provider Nurse Practitioner Family
DX: R51.9 Headache, unspecified (principal)
CPT/HCPCS: 87400

== ENCOUNTER 2024-08-20 13:28 | Emergency (ER) | payer MEDICARE, MEDICAID, SELFPAY ==
[2024-05-22 13:38] VITALS: BP 132/88; BMI 31.9
[2024-08-20 13:30] VITALS: BP 119/87; PULSE 106; RESP 16; TEMP 36.4; O2SAT 96; BMI 29.2
--- NOTE | 2024-08-20 13:49 | US_ITS ---
WS: [id number] RIGHT UPPER QUADRANT ULTRASOUND HISTORY: Right upper quadrant pain, concern for cholecystitis COMPARISON: 03/23/2024 Liver: 15.6 cm in length. Normal size liver with coarse echotexture and nodular surface. Portal Vein: Normal hepatopetal flow with monophasic waveform. Gallbladder: Normally distended gallbladder with no stones or wall thickening. CBD: 0.4 cm Pancreas: Normal size and echogenicity. Right kidney: 9.2 cm in length. Normal size and echogenicity. No hydronephrosis or mass. Aorta and IVC: Unremarkable abdominal aorta and IVC. No ascites. US/US gall bladder [id number] IMPRESSION: Normal right upper quadrant ultrasound.
[2024-08-20] MEDS: ketorolac 30 mg/mL INJ IVP (13:54)
--- NOTE | 2024-08-20 14:07 | ED_ITS ---
HPI - Abdominal Pain 2 General: Chief Complaint: Abdominal Pain Stated Complaint: abd pain Time Seen by Provider: 08/20/24 13:29 History of Present Illness: 59-year-old female With a history of med ical noncompliance, schizophrenia, COPD, chronic pain syndrome, and obesity who presents emergency room with right upper quadrant pain. She says this is her gallbladder and she is having a flare. She says she has had issues with this for about 3 months now. Worsening over the last 3 days. Some nausea but no vomiting. No fevers. No altered mental status. She presents by ambulance. Related Data Home Medications Medication Instructions Recorded Confirmed acetaminophen 500 mg tablet 1,500 mg PO Q6H PRN Moderate Pain 05/14/24 08/20/24 (Scale Score 5-6) dexlansoprazole 60 mg 60 mg PO DAILY PRN Acid Reflux 05/14/24 08/20/24 capsule,biphase delayed release montelukast 10 mg tablet 10 mg PO DAILY 05/21/24 08/20/24 (Singulair) fluticasone propionate 50 2 spray intranasal BID PRN 05/24/24 08/20/24 mcg/actuation nasal allergies spray,suspension albuterol sulfate 90 mcg/actuation 2 puff inhalation Q4H PRN 08/08/24 08/20/24 aerosol inhaler Shortness Of Breath Or Wheezing amoxicillin 875 mg-potassium 1 tab PO Q12H 08/20/24 08/20/24 clavulanate 125 mg tablet erythromycin 5 mg/gram (0.5 %) eye 1 applic ophthalmic (eye) Q6H 08/20/24 08/20/24 ointment (3.5 gram tube) Previous Rx's Medication Instructions Recorded walker with seat #1 ea 08/25/23 gabapentin 300 mg capsule 300 mg PO Q8H chronic pain 30 days 02/01/24 #90 caps mirtazapine 45 mg tablet 45 mg PO BEDTIME #30 tabs 04/02/24 tramadol 50 mg tablet 50 mg PO BID PRN pain 30 days #60 05/19/24 tabs citalopram 40 mg tablet (Celexa) 40 mg PO QAM #30 tabs 05/20/24 meloxicam 7.5 mg tablet 7.5 mg PO BID PRN INFLAMATION AND 06/02/24 PAIN. #60 tabs benztropine 1 mg tablet 1 mg PO BID #60 tabs 06/05/24 clozapine 100 mg tablet See Rx Instructions .Route 06/05/24 .COMPLEX #180 tabs clozapine 50 mg tablet 50 mg PO QAM #30 tabs 06/05/24 oxybutynin chloride 15 mg 15 mg PO BEDTIME #90 tabs 06/20/24 tablet,extended release 24 hr lorazepam 1 mg tablet 1 mg PO BID PRN anxiety attacks 30 08/08/24 days #60 tabs cetirizine 10 mg capsule (Zyrtec) 10 mg PO DAILY PRN allergy 08/14/24 symptoms #14 caps prednisone 20 mg tablet 20 mg PO BID 5 days #10 tabs 08/14/24 budesonide-formoterol HFA 160 2 puff inhalation BID #10.2 grams 08/18/24 mcg-4.5 mcg/actuation aerosol inhaler (Symbicort) Allergies Allergy/AdvReac Type Severity Reaction Status Date / Time ibuprofen Allergy Mild ALGY-Rash Verified 08/14/24 10:47 Review of Systems 2 Narrative: Constitutional symptoms: Negative except as documented in HPI. Skin symptoms: Negative except as documented in HPI. Eye symptoms: Negative except as documented in HPI. ENMT symptoms: Negative except as documented in HPI. Respiratory symptoms: Negative except as documented in HPI. Cardiovascular symptoms: Negative except as documented in HPI. Gastrointestinal symptoms: Negative except as documented in HPI. Genitourinary symptoms: Negative except as documented in HPI. Musculoskeletal symptoms: Negative except as documented in HPI. Neurologic symptoms: Negative except as documented in HPI. Psychiatric symptoms: Negative except as documented in HPI. Endocrine symptoms: Negative except as documented in HPI. 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 Uterine prolapse Prediabetes Chronic bronchitis with COPD (chronic obstructive pulmonary disease) Mixed hyperlipidemia Psychiatric care Osteoarthritis (arthritis due to wear and tear of joints) Chronic pain disorder Right shoulder, bilateral lower extremities Obesity (BMI 30.0-34.9) GERD (gastroesophageal reflux disease) Surgical History Status post bilateral salpingo-oophorectomy (BSO) S/P laparoscopic assisted vaginal hysterectomy (LAVH) Family History Other CAD (coronary artery disease) Hypertension Social History Smoking and tobacco/nicotine status: current every day tobacco/nicotine user Substance/Drug Use: never Do you think of yourself as: Straight/Heterosexual Female Reproductive History: Para: 2 Physical Exam 2 Narrative: EXAM NARRATIVE: General: Alert, no acute distress. Skin: Warm, dry. Head: Normocephalic, atraumatic. Neck: Supple, trachea midline. Eye: Extraocular movements are intact. Ears, nose, mouth and throat: mucosa moist. Cardiovascular: Regular, Normal peripheral perfusion. Respiratory: Lungs are clear to auscultation, respirations are non-labored, breath sounds are equal, Symmetrical chest wall expansion. Gastrointestinal: Soft, some tenderness in the right upper quadrant, Non distended Musculoskeletal: Normal ROM, no deformity. Neurological: Alert and oriented, No focal neurological deficit observed. Psychiatric: Cooperative, appropriate mood & affect. Course 2 Vital Signs: Vital signs: Vital Signs Temperature 97.6 F 08/20/24 13:30 Pulse Rate 106 H 08/20/24 13:30 Respiratory Rate 16 08/20/24 13:30 Blood Pressure 113/92 08/20/24 14:24 Pulse Oximetry 94 08/20/24 14:24 Oxygen Delivery Me thod Room Air 08/20/24 13:30 MDM - Abdominal Pain Medical Decision Making Differential diagnosis for patient presenting with right upper quadrant abdominal pain including but not limited to and based on the above HPI, review of systems and physical exam: Cholelithiasis or cholecystitis. Hepatitis. Diverticulitis. Constipation. Ureterolithiasis. Urinary tract infection. Appendicitis. colitis. small bowel obstruction. crohn's flare. pancreatitis. gastritis. peptic ulcer. Aortic disection. Workup including imaging and lab work replaced based on the above differential, history and exam to evaluate differential diagnosis Lab Review: Laboratory results were reviewed and interpreted by myself the emergency room physician. Lab work is unremarkable. No leukocytosis. No anemia. No renal failure. No transaminitis. Ultrasound gallbladder: No abnormalities with the gallbladder. This was reviewed and interpreted by myself the emergency room physician. I also reviewed the radiology report. I reviewed the patient's medical record. Reexamination: Patient remained stable. No increased work of breathing. No altered mental status. No focal motor deficits. Assessment and plan: Abdominal pain ?Toradol in the emergency room - Discharged home - Discussed plan with patient. Answered any questions. - Evaluation and treatment of this problem were appropriate in the emergency setting. Lab Data 08/20/24 14:03 08/20/24 14:03 Labs/Radiology: Radiology Impressions Gallbladder Ultrasound 08/20/24 13:49 IMPRESSION: Normal right upper quadrant ultrasound. Laboratory Results WBC 11.15 10^3/uL (3.29-11.43) 08/20/24 14:03 RBC 4.42 10^6/uL (3.85-5.65) 08/20/24 14:03 Hgb 13.00 g/dL (11.27-16.99) 08/20/24 14:03 Hct 40.8 % (36-47) 08/20/24 14:03 MCV 92.3 fl (85-98) 08/20/24 14:03 MCH 29.4 pg (27-33) 08/20/24 14:03 MCHC 31.9 g/dL (30-55) 08/20/24 14:03 RDW 14.4 % (12.1-15.1) 08/20/24 14:03 Plt Count 268 10^3/cmm (157-399) 08/20/24 14:03 MPV 9.0 fL (7.4-10.4) 08/20/24 14:03 Neut % (Auto) 73.0 % 08/20/24 14:03 Lymph % (Auto) 15.9 % 08/20/24 14:03 Randall % (Auto) 9.9 % 08/20/24 14:03 Eos % (Auto) 0.1 % 08/20/24 14:03 Baso % (Auto) 0.3 % 08/20/24 14:03 Neut # (Auto) 8.15 10^3/uL (1.8-7.7) H 08/20/24 14:03 Lymph # (Auto) 1.8 10^3/uL (0.8-4.8) 08/20/24 14:03 Randall # (Auto) 1.1 10^3/uL (0.2-0.9) H 08/20/24 14:03 Eos # (Auto) 0.0 10^3/uL (0.0-0.8) 08/20/24 14:03 Baso # (Auto) 0.0 10^3/uL (0.0-0.1) 08/20/24 14:03 Nucleated RBC % (auto) 0 % 08/20/24 14:03 Nucleated RBCs # 0.0 /100WBC 08/20/24 14:03 Sodium 133 mmol/L (136-145) L 08/20/24 14:03 Potassium 4.4 mmol/L (3.5-5.1) 08/20/24 14:03 Chloride 96 mmol/L (98-107) L 08/20/24 14:03 Carbon Dioxide 25 mmol/L (22-29) 08/20/24 14:03 Anion Gap 16.4 (5-19) 08/20/24 14:03 BUN 13 mg/dL (8-23) 08/20/24 14:03 Creatinine 0.9 mg/dL (0.5-0.9) 08/20/24 14:03 GFR Calculation 63.9 mL/min (90-130) L 08/20/24 14:03 Glucose 96 mg/dL (65-115) 08/20/24 14:03 Calculated Osmolality 276 mOsm/kg (285-295) L 08/20/24 14:03 Calcium 9.2 mg/dL (8.5-10.5) 08/20/24 14:03 Total Bilirubin 0.2 mg/dL (0.15-1.2) 08/20/24 14:03 AST 13 U/L (0-32) 08/20/24 14:03 ALT 14 U/L (0-33) 08/20/24 14:03 Alkaline Phosphatase 125 U/L (35-105) H 08/20/24 14:03 Total Protein 6.9 g/dL (6.6-8.7) 08/20/24 14:03 Albumin 4.2 g/dL (3.5-5.2) 08/20/24 14:03 Globulin 2.7 g/dL (1.3-4.6) 08/20/24 14:03 Lipase 70 U/L (13-60) H 08/20/24 14:03 All radiology interpretation(s) finalized by discharge Discharge Plan Discharge Patient Disposition: Home Clinical Impression: Abdominal pain Condition: Stable Prescriptions: No Action (DME) walker with seat See Rx Instructions .Route .MEDSUPPLY Qty: 1 0RF Rx Instructions: As directed gabapentin 300 mg capsule 300 mg PO Q8H 30 Days Qty: 90 3RF mirtazapine 45 mg tablet 45 mg PO BEDTIME Qty: 30 11RF acetaminophen 500 mg tablet 1,500 mg PO Q6H PRN (Reason: Moderate Pain (Scale Score 5-6)) dexlansoprazole 60 mg capsule,biphase delayed releas 60 mg PO DAILY PRN (Reason: Acid Reflux) tramadol 50 mg tablet 50 mg PO BID PRN (Reason: pain) 30 Days Qty: 60 1RF Rx Instructions: refill on or after 30 days citalopram [Celexa] 40 mg tablet 40 mg PO QAM Qty: 30 11RF clozapine 100 mg tablet See Rx Instructions .ROUTE .COMPLEX Qty: 180 11RF Rx Instructions: Take 2 tablets in the AM and 4 tablets in PM. clozapine 50 mg tablet 50 mg PO QAM Qty: 30 11RF Rx Instructions: Take one tablet in the morning with 200 mg dose of clozapine. benztropine 1 mg tablet 1 mg PO BID Qty: 60 11RF prednisone 20 mg tablet 20 mg PO BID 5 Days Qty: 10 0RF Zyrtec 10 mg capsule 10 mg PO DAILY PRN (Reason: allergy symptoms) Qty: 14 0RF meloxicam 7.5 mg tablet 7.5 mg PO BID PRN (Reason: INFLAMATION AND PAIN.) Qty: 60 2RF oxybutynin chloride 15 mg tablet extended release 24hr 15 mg PO BEDTIME Qty: 90 1RF lorazepam 1 mg tablet 1 mg PO BID PRN (Reason: anxiety attacks) 30 Days Qty: 60 5RF budesonide-formoterol [Symbicort] 160-4.5 mcg/actuation HFA aerosol inhaler 2 puff inhalation BID Qty: 10.2 2RF montelukast [Singulair] 10 mg tablet 10 mg PO DAILY albuterol sulfate 90 mcg/actuation HFA aerosol inhaler 2 puff inhalation Q4H PRN (Reason: Shortness Of Breath Or Wheezing) amoxicillin-pot clavulanate 875-125 mg tablet 1 tab PO Q12H erythromycin 5 mg/gram (0.5 %) ointment 1 applic ophthalmic (eye) Q6H fluticasone propionate 50 mcg/actuation spray,suspension 2 spray intranasal BID PRN (Reason: allergies) Discharge Orders: Discharge ED (Routine); Ordered 08/20/24 Ordered By: Carmela Nelson Referrals: Evans Olvera MD [Primary Care Provider] - Discharge Diet: Advance as tolerated Discharge Activity: Increase activity as tolerated Patient Instructions: Abdominal Pain (ED), Opioid Safety, Pain Management Activity Restrictions/Additional Instructions: Thank you for choosing [facility] for your healthcare needs today. Please realize this is an emergency room and that we are providing you with a medical screening exam and this may not be complete and all inclusive of all the testing and or work up that you may need to determine your ailment or severity of your illness. You have been screened and evaluated and felt safe for discharge. Health conditions do change or evolve sometimes and as such it is important that you follow up with your Primary Doctor to be re checked, 3-5 days is a general good time frame for follow up. You are always welcome to return to the ED for re assessment if your symptoms are worsening or you have new concerns Coding Level of Care Code ED Wholesale Diamond Broker for 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
[2024-08-20 14:08] LABS: Basophils % 0.3 %; Eosinophils % 0.1 %; Hematocrit 40.8 % (36-47); Lymphocytes # 1.8 10^3/uL (0.8-4.8); Lymphocytes % 15.9 %; Mean Corpuscular HGB Conc 31.9 g/dL (30-55); Mean Corpuscular Hemoglobin 29.4 pg (27-33); Mean Corpuscular Volume 92.3 fl (85-98); Monocytes # 1.1 10^3/uL (0.2-0.9); Monocytes % 9.9 %; Neutrophils # 8.15 10^3/uL (1.8-7.7); Nucleated Red Blood Cells % 0 %; Platelet Count 268 10^3/cmm (157-399); Red Blood Count 4.42 10^6/uL (3.85-5.65); Red Cell Distribution Width 14.4 % (12.1-15.1); White Blood Count 11.15 10^3/uL (3.29-11.43)
[2024-08-20 14:24] VITALS: BP 113/92; O2SAT 94
[2024-08-20 14:36] LABS: Alanine Aminotransferase 14 U/L (0-33); Albumin Level 4.2 g/dL (3.5-5.2); Alkaline Phosphatase 125 U/L (35-105); Anion Gap 16.4 (5-19); Aspartate Amino Transferase 13 U/L (0-32); Blood Urea Nitrogen 13 mg/dL (8-23); Calcium 9.2 mg/dL (8.5-10.5); Carbon Dioxide 25 mmol/L (22-29); Chloride 96 mmol/L (98-107); Globulin 2.7 g/dL (1.3-4.6); Glomerular Filtration Rate 63.9 mL/min (90-130); Glucose 96 mg/dL (65-115); Lipase 70 U/L (13-60); Osmolality Calculated 276 mOsm/kg (285-295); Potassium 4.4 mmol/L (3.5-5.1); Sodium 133 mmol/L (136-145); Total Bilirubin 0.2 mg/dL (0.15-1.2); Total Protein 6.9 g/dL (6.6-8.7)
[2024-08-20 15:03] VITALS: BP 110/87; PULSE 101; O2SAT 94
[2024-08-20 15:10] VITALS: BP 110/87; PULSE 101; O2SAT 96
== END 2024-08-20 15:15 | disposition home or self-care (01) ==
PROVIDERS: Emergency Provider Emergency Medicine; PCP Family Medicine Adult Medicine
DX: R10.11 Right upper quadrant pain (principal); Z72.0 Tobacco use; J44.9 Chronic obstructive pulmonary disease, unspecified; E78.2 Mixed hyperlipidemia
CPT/HCPCS: 76705; 80053; 83690; 85025; 96374; 99284; J1885

== ENCOUNTER 2024-09-07 10:48 | Emergency (ER) | payer MEDICARE, MEDICAID, SELFPAY ==
[2024-05-22 13:38] VITALS: BP 132/88; BMI 31.9
[2024-09-07 11:11] VITALS: BP 101/69; PULSE 101; RESP 18; TEMP 36.7; O2SAT 95; BMI 32.3
--- NOTE | 2024-09-07 12:51 | W.ED.WEAKNES ---
HPI - Weakness General: Chief complaint: Weakness Stated complaint: dizzy Time Seen by Provider: 09/07/24 12:47 History of Present Illness: 59-year-old female presents with no acute specific complaints. She does have a lot of chronic complaints. She presents because she is schizoaffective and was having some issues at home. She took an Ativan just prior to arrival and reports now she feels a lot better and she feels like she is ready to be discharged home. She does not feel like she needs any further workup at this time. Associated symptoms: Denies chest pain, chills or fever(s) Review of Systems Const: Denies: fever(s) or chills ENMT: Denies: throat pain Card: Denies: chest pain Resp: Denies: dyspnea or productive cough Psych: Reports: anxiety; Denies: suicidal ideation or homicidal ideation PFS ED PFSH: Medical History Encounter for chronic pain management Tramadol; [facility] patient on this from Dr. 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 Prediabetes Chronic bronchitis with COPD (chronic obstructive pulmonary disease) Mixed hyperlipidemia Psychiatric care Osteoarthritis (arthritis due to wear and tear of joints) Chronic pain disorder Right shoulder, bilateral lower extremities Obesity (BMI 30.0-34.9) GERD (gastroesophageal reflux disease) Surgical History Status post bilateral salpingo-oophorectomy (BSO) S/P laparoscopic assisted vaginal hysterectomy (LAVH) Family History Other CAD (coronary artery disease) Hypertension Social History Smoking and tobacco/nicotine status: current every day tobacco/nicotine user cigarettes Packs smoked per day: 0.5 Alcohol intake: never Substance/Drug Use: former Date of last use: 2012 Former substance use details: meth; hx of IV use Household members: none Marital status: Number of children: 2 Highest education level completed: High School Graduate Current occupational status: disabled 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; Do you think of yourself as: Straight/Heterosexual Female Reproductive History: Para: 2 Physical Exam Const: COMMON NORMALS: no acute distress, patient oriented x3 and alert Resp: COMMON NORMALS: normal respiratory effort, No retractions and No use of accessory muscles Cardio: COMMON NORMALS: regular rate and regular rhythm RATE: regular rate RHYTHM: regular rhythm Neuro: COMMON NORMALS: patient oriented x3, moves all extremities and no focal motor deficits SENSORIUM/ORIENTATION: Yes alert Psych: COMMON NORMALS: mental status grossly normal, Normal thought process present, cooperative and normal affect THOUGHT PROCESS: Normal thought process present Skin: COMMON NORMALS: no rashes or lesions noted GENERAL SKIN EXAM: no rashes or lesions noted Course Vital Signs: Vital signs: Vital Signs Temperature 98.1 F 09/07/24 11:11 Pulse Rate 101 H 09/07/24 13:06 Respiratory Rate 18 09/07/24 11:11 Blood Pressure 118/76 09/07/24 13:06 Pulse Oximetry 94 09/07/24 13:06 Oxygen Delivery Me thod Room Air 09/07/24 11:11 MDM - Weakness Medical Decision Making Patient reports that she is feeling a lot better and at this time has no acute complaints just chronic complaints. She feels that she is okay to be discharged home. She is stable upon discharge No radiology studies performed this visit Discharge Plan Discharge Patient Disposition: Home Clinical Impression: Other schizophrenia Anxiety disorder Qualifiers: Anxiety disorder type: other anxiety disorder Qualified Code(s): F41.8 - Other specified anxiety disorders Condition: Stable Prescriptions: No Action (DME) walker with seat See Rx Instructions .Route .MEDSUPPLY Qty: 1 0RF Rx Instructions: As directed mirtazapine 45 mg tablet 45 mg PO BEDTIME Qty: 30 11RF gabapentin 300 mg capsule 300 mg PO Q8H 30 Days Qty: 90 3RF acetaminophen 500 mg tablet 1,500 mg PO Q6H PRN (Reason: Moderate Pain (Scale Score 5-6)) dexlansoprazole 60 mg capsule,biphase delayed releas 60 mg PO DAILY PRN (Reason: Acid Reflux) citalopram [Celexa] 40 mg tablet 40 mg PO QAM Qty: 30 11RF clozapine 100 mg tablet See Rx Instructions .ROUTE .COMPLEX Qty: 180 11RF Rx Instructions: Take 2 tablets in the AM and 4 tablets in PM. clozapine 50 mg tablet 50 mg PO QAM Qty: 30 11RF Rx Instructions: Take one tablet in the morning with 200 mg dose of clozapine. benztropine 1 mg tablet 1 mg PO BID Qty: 60 11RF Zyrtec 10 mg capsule 10 mg PO DAILY PRN (Reason: allergy symptoms) Qty: 14 0RF lorazepam 1 mg tablet 1 mg PO BID Qty: 60 5RF oxybutynin chloride 15 mg tablet extended release 24hr 15 mg PO BEDTIME Qty: 90 1RF budesonide-formoterol [Symbicort] 160-4.5 mcg/actuation HFA aerosol inhaler 2 puff inhalation BID Qty: 10.2 2RF meloxicam 7.5 mg tablet 7.5 mg PO BID PRN (Reason: INFLAMATION AND PAIN.) Qty: 60 2RF tramadol 50 mg tablet 50 mg PO BID PRN (Reason: pain) 30 Days Qty: 60 0RF Rx Instructions: refill on or after 30 days montelukast [Singulair] 10 mg tablet 10 mg PO DAILY albuterol sulfate 90 mcg/actuation HFA aerosol inhaler 2 puff inhalation Q4H PRN (Reason: Shortness Of Breath Or Wheezing) erythromycin 5 mg/gram (0.5 %) ointment 1 applic ophthalmic (eye) Q6H fluticasone propionate 50 mcg/actuation spray,suspension 2 spray intranasal BID PRN (Reason: allergies) Discharge Orders: Discharge ED (Routine); Ordered 09/07/24 Ordered By: Scott Sheriff Referrals: Princess Glaser MD [Primary Care Provider] - Discharge Diet: Usual diet Discharge Activity: Resume usual activity Patient Instructions: Schizophrenia (ED), Anxiety (ED), Opioid Safety, Pain Management Activity Restrictions/Additional Instructions: Please follow-up your primary care provider next week for recheck of your symptoms. 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 for Chg Fwd Related Data Home Medications ?Medication ?Instructions ?Recorded ?Confirmed acetaminophen 500 mg tablet 1,500 mg PO Q6H PRN Moderate Pain 05/14/24 09/05/24 (Scale Score 5-6) dexlansoprazole 60 mg 60 mg PO DAILY PRN Acid Reflux 05/14/24 09/05/24 capsule,biphase delayed release montelukast 10 mg tablet 10 mg PO DAILY 05/21/24 09/05/24 (Singulair) fluticasone propionate 50 2 spray intranasal BID PRN 05/24/24 09/05/24 mcg/actuation nasal allergies spray,suspension albuterol sulfate 90 mcg/actuation 2 puff inhalation Q4H PRN 08/08/24 09/05/24 aerosol inhaler Shortness Of Breath Or Wheezing erythromycin 5 mg/gram (0.5 %) eye 1 applic ophthalmic (eye) Q6H 08/20/24 09/05/24 ointment (3.5 gram tube) Previous Rx's ?Medication ?Instructions ?Recorded walker with seat #1 ea 08/25/23 mirtazapine 45 mg tablet 45 mg PO BEDTIME #30 tabs 04/02/24 citalopram 40 mg tablet (Celexa) 40 mg PO QAM #30 tabs 05/20/24 benztropine 1 mg tablet 1 mg PO BID #60 tabs 06/05/24 clozapine 100 mg tablet See Rx Instructions .Route 06/05/24 .COMPLEX #180 tabs clozapine 50 mg tablet 50 mg PO QAM #30 tabs 06/05/24 oxybutynin chloride 15 mg 15 mg PO BEDTIME #90 tabs 06/20/24 tablet,extended release 24 hr cetirizine 10 mg capsule (Zyrtec) 10 mg PO DAILY PRN allergy 08/14/24 symptoms #14 caps budesonide-formoterol HFA 160 2 puff inhalation BID #10.2 grams 08/18/24 mcg-4.5 mcg/actuation aerosol inhaler (Symbicort) meloxicam 7.5 mg tablet 7.5 mg PO BID PRN INFLAMATION AND 08/22/24 PAIN. #60 tabs tramadol 50 mg tablet 50 mg PO BID PRN pain 30 days #60 08/27/24 tabs gabapentin 300 mg capsule 300 mg PO Q8H chronic pain 30 days 09/04/24 #90 caps lorazepam 1 mg tablet 1 mg PO BID #60 tabs 09/05/24 Allergies Allergy/AdvReac Type Severity Reaction Status Date / Time ibuprofen Allergy Mild ALGY-Rash Verified 09/05/24 13:35
[2024-09-07 13:06] VITALS: BP 118/76; PULSE 101; O2SAT 94
== END 2024-09-07 13:07 | disposition home or self-care (01) ==
PROVIDERS: Emergency Provider Student in an Organized Health Care Education/Training Program; PCP Family Medicine
DX: F23 Brief psychotic disorder (principal); F41.8 Other specified anxiety disorders; F17.210 Nicotine dependence, cigarettes, uncomplicated; J44.9 Chronic obstructive pulmonary disease, unspecified
CPT/HCPCS: 99281

== ENCOUNTER 2024-09-11 09:15 | Emergency (ER) | payer MEDICARE, MEDICAID, SELFPAY ==
[2024-05-22 13:38] VITALS: BP 132/88; BMI 31.9
[2024-09-11 09:22] VITALS: BP 104/81; PULSE 101; RESP 18; TEMP 36.8; O2SAT 96
--- NOTE | 2024-09-11 09:24 | CT_ITS ---
WS: [id number] CT HEAD NONCONTRAST HISTORY: vertigo TECHNIQUE: Contiguous axial imaging performed through the brain. Bone and soft tissue windows. Sagittal and coronal reformats reviewed. All CT scans at [facility] use at least one of these dose optimization techniques: automated exposure control; mA and/or kV adjustment per patient size (includes targeted exams where dose is matched to clinical indication); or iterative reconstruction. DLP: 985.90 mGy.cm COMPARISON: 09/09/2023 No acute intracranial hemorrhage, midline shift or mass effect. Mild bifrontal atrophy. No prior infarct or lacunar infarct. Mild small vessel disease. No abnormality at the sella turcica. Normal appearance cerebellopontine angles. Ventricles: Normal size with no hydrocephalus. Paranasal sinuses: As visualized are clear. Mastoid air cells: Well pneumatized. Calvarium and scalp: Skull is intact with no soft tissue edema or swelling. CT/CT head wo con* [id number] IMPRESSION: 1. No acute intracranial hemorrhage or edema. 2. Mild bifrontal lobe atrophy and small vessel disease. 3. No mass effect upon the optic chiasm. Negative posterior fossa.
--- NOTE | 2024-09-11 09:24 | ECG_ITS ---
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 Measurements Intervals Hannah Rate: 96 P: 71 ID: [id number] QRS: 53 QRSD: 90 T: 53 QT: 363 QTc: 461 Interpretive Statements SINUS RHYTHM Compared to ECG 08/08/2024 08:49:08 Sinus tachycardia no longer present Electronically Signed On 09-11-2024 17:50:59 PROGRAM COUNSELOR by Edwin You M.D. [email or web address]
--- NOTE | 2024-09-11 09:29 | W.ED.DIZZY ---
HPI - Dizziness General: Chief Complaint: Dizziness Stated Complaint: vertigo Time Seen by Provider: 09/11/24 09:18 Source: patient Mode of arrival: ambulatory Limitations: no limitations History of Present Illness: HPI Narrative: 59-year-old female who states that she has been having some lightheadedness along with vertigo it has been going on for the last month. She been seen here for the same states this morning she had felt like she is going to pass out feels improved currently she denies any headache denies any chest pain denies any vomiting or diarrhea states it is worse with movement Associated symptoms: Denies chest pain, chills, headache(s), nausea or vomiting Related Data Home Medications ?Medication ?Instructions ?Recorded ?Confirmed acetaminophen 500 mg tablet 1,500 mg PO Q6H PRN Moderate Pain 05/14/24 09/11/24 (Scale Score 5-6) dexlansoprazole 60 mg 60 mg PO DAILY PRN Acid Reflux 05/14/24 09/11/24 capsule,biphase delayed release montelukast 10 mg tablet 10 mg PO DAILY 05/21/24 09/11/24 (Singulair) fluticasone propionate 50 2 spray intranasal BID PRN 05/24/24 09/11/24 mcg/actuation nasal allergies spray,suspension albuterol sulfate 90 mcg/actuation 2 puff inhalation Q4H PRN 08/08/24 09/11/24 aerosol inhaler Shortness Of Breath Or Wheezing Previous Rx's ?Medication ?Instructions ?Recorded walker with seat #1 ea 08/25/23 mirtazapine 45 mg tablet 45 mg PO BEDTIME #30 tabs 04/02/24 citalopram 40 mg tablet (Celexa) 40 mg PO QAM #30 tabs 05/20/24 benztropine 1 mg tablet 1 mg PO BID #60 tabs 06/05/24 clozapine 100 mg tablet See Rx Instructions .Route 06/05/24 .COMPLEX #180 tabs clozapine 50 mg tablet 50 mg PO QAM #30 tabs 06/05/24 oxybutynin chloride 15 mg 15 mg PO BEDTIME #90 tabs 06/20/24 tablet,extended release 24 hr cetirizine 10 mg capsule (Zyrtec) 10 mg PO DAILY PRN allergy 08/14/24 symptoms #14 caps budesonide-formoterol HFA 160 2 puff inhalation BID #10.2 grams 08/18/24 mcg-4.5 mcg/actuation aerosol inhaler (Symbicort) meloxicam 7.5 mg tablet 7.5 mg PO BID PRN INFLAMATION AND 08/22/24 PAIN. #60 tabs tramadol 50 mg tablet 50 mg PO BID PRN pain 30 days #60 08/27/24 tabs gabapentin 300 mg capsule 300 mg PO Q8H chronic pain 30 days 09/04/24 #90 caps lorazepam 1 mg tablet 1 mg PO BID #60 tabs 09/05/24 meclizine 50 mg tablet 50 mg PO BID PRN dizziness #20 tabs 09/11/24 Allergies Allergy/AdvReac Type Severity Reaction Status Date / Time ibuprofen Allergy Mild ALGY-Rash Verified 09/05/24 13:35 Review of Systems Const: Denies: fever(s), chills, body aches or change in appetite Eyes: Denies: blurry vision or eye discomfort ENMT: Denies: throat pain or dental pain Card: Reports: pre-syncope; Denies: chest pain Resp: Denies: dyspnea GI: Denies: abdominal pain, nausea, vomiting or diarrhea Musc: Denies: neck pain or back pain Skin/Breast: Denies: rash Neuro: Reports: vertigo; Denies: headache(s) [facility] ED PFSH: Medical History Encounter for chronic pain management Tramadol; Legacy patient on this from Dr. 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 Prediabetes Chronic bronchitis with COPD (chronic obstructive pulmonary disease) Mixed hyperlipidemia Psychiatric care Osteoarthritis (arthritis due to wear and tear of joints) Chronic pain disorder Right shoulder, bilateral lower extremities Obesity (BMI 30.0-34.9) GERD (gastroesophageal reflux disease) Surgical History Status post bilateral salpingo-oophorectomy (BSO) S/P laparoscopic assisted vaginal hysterectomy (LAVH) Family History Other CAD (coronary artery disease) Hypertension Social History Smoking and tobacco/nicotine status: current every day tobacco/nicotine user cigarettes Packs smoked per day: 0.5 Alcohol intake: never Substance/Drug Use: former Date of last use: 2012 Former substance use details: meth; hx of IV use Household members: none Marital status: Number of children: 2 Highest education level completed: High School Graduate Current occupational status: disabled 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; Do 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 think of yourself as: Straight/Heterosexual Female Reproductive History: Para: 2 Physical Exam Const: COMMON NORMALS: no acute distress, patient oriented x3 and healthy appearing HENMT: COMMON NORMALS: normocephalic and atraumatic HEAD & SCALP: normocephalic and atraumatic Eye: COMMON NORMALS: Equal, round and reactive pupils present and EOMs intact bilaterally PUPIL: Yes Equal, round and reactive pupils present OTHER: no nystagmus Neck/C-Spine: COMMON NORMALS: full ROM and supple Chest: COMMONS NORMALS: normal inspection of the chest Resp: COMMON NORMALS: normal respiratory effort, No retractions, No use of accessory muscles and clear to auscultation bilaterally AUSCULTATION: clear to auscultation bilaterally Cardio: COMMON NORMALS: regular rate, regular rhythm and No murmurs present (Cardio) RATE: regular rate RHYTHM: regular rhythm GI: COMMON NORMALS: Normal to inspection, nondistended, normoactive bowel sounds present, Soft to palpation, non-tender and no masses PALPATION: Yes Soft to palpation Extremity: COMMON NORMALS: normal to inspection and full ROM Neuro: COMMON NORMALS: patient oriented x3, moves all extremities and no focal motor deficits CRANIAL NERVES: Yes CN normal except as noted SPEECH: speech normal GAIT: Yes Normal gait present Psych: COMMON NORMALS: mental status grossly normal, Normal thought process present and cooperative THOUGHT PROCESS: Normal thought process present Skin: COMMON NORMALS: no rashes or lesions noted and no wounds GENERAL SKIN EXAM: no rashes or lesions noted Course Vital Signs: Vital signs: Vital Signs Temperature 98.2 F 09/11/24 09:22 Pulse Rate 101 H 09/11/24 09:22 Respiratory Rate 18 09/11/24 09:22 Blood Pressure 104/81 09/11/24 09:22 Pulse Oximetry 96 09/11/24 09:22 Oxygen Delivery Me thod Room Air 09/11/24 09:22 MDM - Dizziness Medical Decision Making Patient presents with vertigo that is improved after meclizine she is ambulatory here without any difficulty she had no ataxia no signs of a stroke we will prescribe her meclizine for home she is follow-up with PCP return if worsening. Medical Records I reviewed the patient's medical records. Lab Data I reviewed the patient's lab results. 09/11/24 09:39 09/11/24 09:[address] 09/11/24 09:24 IMPRESSION: 1. No acute intracranial hemorrhage or edema. 2. Mild bifrontal lobe atrophy and small vessel disease. 3. No mass effect upon the optic chiasm. Negative posterior fossa. Laboratory Results WBC 8.37 10^3/uL (3.29-11.43) 09/11/24 09:39 RBC 4.42 10^6/uL (3.85-5.65) 09/11/24 09:39 Hgb 12.90 g/dL (11.27-16.99) 09/11/24 09:39 Hct 40.5 % (36-47) 09/11/24 09:39 MCV 91.6 fl (85-98) 09/11/24 09:39 MCH 29.2 pg (27-33) 09/11/24 09:39 MCHC 31.9 g/dL (30-55) 09/11/24 09:39 RDW 14.3 % (12.1-15.1) 09/11/24 09:39 Plt Count 275 10^3/cmm (157-399) 09/11/24 09:39 MPV 8.8 fL (7.4-10.4) 09/11/24 09:39 Neut % (Auto) 70.4 % 09/11/24 09:39 Lymph % (Auto) 17.0 % 09/11/24 09:39 [place] % (Auto) 11.4 % 09/11/24 09:39 Eos % (Auto) 0.1 % 09/11/24 09:39 Baso % (Auto) 0.4 % 09/11/24 09:39 Neut # (Auto) 5.90 10^3/uL (1.8-7.7) 09/11/24 09:39 Lymph # (Auto) 1.4 10^3/uL (0.8-4.8) 09/11/24 09:39 [place] # (Auto) 1.0 10^3/uL (0.2-0.9) H 09/11/24 09:39 Eos # (Auto) 0.0 10^3/uL (0.0-0.8) 09/11/24 09:39 Baso # (Auto) 0.0 10^3/uL (0.0-0.1) 09/11/24 09:39 Nucleated RBC % (auto) 0 % 09/11/24 09:39 Nucleated RBCs # 0.0 /100WBC 09/11/24 09:39 Sodium 138 mmol/L (136-145) 09/11/24 09:39 Potassium 4.4 mmol/L (3.5-5.1) 09/11/24 09:39 Chloride 100 mmol/L (98-107) 09/11/24 09:39 Carbon Dioxide 27 mmol/L (22-29) 09/11/24 09:39 Anion Gap 15.4 (5-19) 09/11/24 09:39 BUN 9 mg/dL (8-23) 09/11/24 09:39 Creatinine 0.7 mg/dL (0.5-0.9) 09/11/24 09:39 GFR Calculation 85.4 mL/min (90-130) L 09/11/24 09:39 Glucose 107 mg/dL (65-115) 09/11/24 09:39 POC Glucose 103 mg/dL (70-110) 09/11/24 09:50 Calculated Osmolality 285 mOsm/kg (285-295) 09/11/24 09:39 Calcium 9.1 mg/dL (8.5-10.5) 09/11/24 09:39 Total Bilirubin 0.2 mg/dL (0.15-1.2) 09/11/24 09:39 AST 13 U/L (0-32) 09/11/24 09:39 ALT 16 U/L (0-33) 09/11/24 09:39 Alkaline Phosphatase 124 U/L (35-105) H 09/11/24 09:39 Total Protein 6.8 g/dL (6.6-8.7) 09/11/24 09:39 Albumin 3.9 g/dL (3.5-5.2) 09/11/24 09:39 Globulin 2.9 g/dL (1.3-4.6) 09/11/24 09:39 All radiology interpretation(s) finalized by discharge Discharge Plan Discharge Patient Disposition: Home Clinical Impression: Dizziness Condition: Stable Prescriptions: New meclizine 50 mg tablet 50 mg PO BID PRN (Reason: dizziness) Qty: 20 0RF No Action (DME) walker with seat See Rx Instructions .Route .MEDSUPPLY Qty: 1 0RF Rx Instructions: As directed mirtazapine 45 mg tablet 45 mg PO BEDTIME Qty: 30 11RF gabapentin 300 mg capsule 300 mg PO Q8H 30 Days Qty: 90 3RF acetaminophen 500 mg tablet 1,500 mg PO Q6H PRN (Reason: Moderate Pain (Scale Score 5-6)) dexlansoprazole 60 mg capsule,biphase delayed releas 60 mg PO DAILY PRN (Reason: Acid Reflux) citalopram [Celexa] 40 mg tablet 40 mg PO QAM Qty: 30 11RF clozapine 100 mg tablet See Rx Instructions .ROUTE .COMPLEX Qty: 180 11RF Rx Instructions: Take 2 tablets in the AM and 4 tablets in PM. clozapine 50 mg tablet 50 mg PO QAM Qty: 30 11RF Rx Instructions: Take one tablet in the morning with 200 mg dose of clozapine. benztropine 1 mg tablet 1 mg PO BID Qty: 60 11RF Zyrtec 10 mg capsule 10 mg PO DAILY PRN (Reason: allergy symptoms) Qty: 14 0RF lorazepam 1 mg tablet 1 mg PO BID Qty: 60 5RF oxybutynin chloride 15 mg tablet extended release 24hr 15 mg PO BEDTIME Qty: 90 1RF budesonide-formoterol [Symbicort] 160-4.5 mcg/actuation HFA aerosol inhaler 2 puff inhalation BID Qty: 10.2 2RF meloxicam 7.5 mg tablet 7.5 mg PO BID PRN (Reason: INFLAMATION AND PAIN.) Qty: 60 2RF tramadol 50 mg tablet 50 mg PO BID PRN (Reason: pain) 30 Days Qty: 60 0RF Rx Instructions: refill on or after 30 days montelukast [Singulair] 10 mg tablet 10 mg PO DAILY albuterol sulfate 90 mcg/actuation HFA aerosol inhaler 2 puff inhalation Q4H PRN (Reason: Shortness Of Breath Or Wheezing) fluticasone propionate 50 mcg/actuation spray,suspension 2 spray intranasal BID PRN (Reason: allergies) Discharge Orders: Discharge ED (Routine); Ordered 09/11/24 Ordered By: Kade Smith Referrals: Princess Glaser MD [Primary Care Provider] - Discharge Diet: Advance as tolerated Discharge Activity: Resume usual activity Patient Instructions: Vertigo (ED) Print Language: Lao Coding Level of Care Code ED Bit Tapper for 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
[2024-09-11] MEDS: meclizine 25 mg tablet 50 MG PO (09:40)
[2024-09-11 09:44] LABS: Basophils % 0.4 %; Eosinophils % 0.1 %; Hematocrit 40.5 % (36-47); Lymphocytes # 1.4 10^3/uL (0.8-4.8); Mean Corpuscular HGB Conc 31.9 g/dL (30-55); Mean Corpuscular Hemoglobin 29.2 pg (27-33); Mean Corpuscular Volume 91.6 fl (85-98); Mean Platelet Volume 8.8 fL (7.4-10.4); Monocytes % 11.4 %; Neutrophils % 70.4 %; Nucleated Red Blood Cells % 0 %; Platelet Count 275 10^3/cmm (157-399); Red Blood Count 4.42 10^6/uL (3.85-5.65); Red Cell Distribution Width 14.3 % (12.1-15.1); White Blood Count 8.37 10^3/uL (3.29-11.43)
[2024-09-11 09:53] LABS: Glucose Point of Care 103 mg/dL (70-110)
[2024-09-11 10:01] LABS: Alanine Aminotransferase 16 U/L (0-33); Albumin Level 3.9 g/dL (3.5-5.2); Alkaline Phosphatase 124 U/L (35-105); Anion Gap 15.4 (5-19); Aspartate Amino Transferase 13 U/L (0-32); Blood Urea Nitrogen 9 mg/dL (8-23); Calcium 9.1 mg/dL (8.5-10.5); Carbon Dioxide 27 mmol/L (22-29); Chloride 100 mmol/L (98-107); Globulin 2.9 g/dL (1.3-4.6); Glomerular Filtration Rate 85.4 mL/min (90-130); Glucose 107 mg/dL (65-115); Osmolality Calculated 285 mOsm/kg (285-295); Potassium 4.4 mmol/L (3.5-5.1); Sodium 138 mmol/L (136-145); Total Bilirubin 0.2 mg/dL (0.15-1.2); Total Protein 6.8 g/dL (6.6-8.7)
[2024-09-11 10:59] VITALS: BP 104/81; PULSE 94; O2SAT 96
== END 2024-09-11 11:01 | disposition home or self-care (01) ==
PROVIDERS: Emergency Provider Emergency Medicine; PCP Family Medicine
DX: R42 Dizziness and giddiness (principal); F17.210 Nicotine dependence, cigarettes, uncomplicated; E78.2 Mixed hyperlipidemia; J44.9 Chronic obstructive pulmonary disease, unspecified
CPT/HCPCS: 36415; 36416; 70450; 80053; 82962; 85025; 93005; 99284; J8597

== ENCOUNTER 2024-09-13 17:13 | Emergency (ER) | payer MEDICARE, MEDICAID, SELFPAY ==
[2024-05-22 13:38] VITALS: BP 132/88; BMI 31.9
[2024-09-13 17:16] VITALS: BP 106/73; PULSE 105; RESP 20; TEMP 36.7; O2SAT 95
--- NOTE | 2024-09-13 17:57 | W.ED.PSYCHS ---
HPI - Psych General: Chief Complaint: Psychiatric Symptoms Stated Complaint: mhe Time Seen by Provider: 09/13/24 17:19 History of Present Illness: This is a 59-year-old female with a history of depression, chronic pain, schizophrenia, COPD, hyperlipidemia, and obesity who presents to the emergency room with depression. Apparently she was out in town and saw EMS and flagged them down and asked for a ride to the hospital to be treated for her depression. She says she is not suicidal or homicidal. She continues to deny this. She says she just feels like her meds are not working and she has not been getting the help she wants. She says she wants to come into the hospital. Related Data Home Medications ?Medication ?Instructions ?Recorded ?Confirmed acetaminophen 500 mg tablet 1,500 mg PO Q6H PRN Moderate Pain 05/14/24 09/11/24 (Scale Score 5-6) dexlansoprazole 60 mg 60 mg PO DAILY PRN Acid Reflux 05/14/24 09/11/24 capsule,biphase delayed release montelukast 10 mg tablet 10 mg PO DAILY 05/21/24 09/11/24 (Singulair) fluticasone propionate 50 2 spray intranasal BID PRN 05/24/24 09/11/24 mcg/actuation nasal allergies spray,suspension albuterol sulfate 90 mcg/actuation 2 puff inhalation Q4H PRN 08/08/24 09/11/24 aerosol inhaler Shortness Of Breath Or Wheezing Previous Rx's ?Medication ?Instructions ?Recorded walker with seat #1 ea 08/25/23 mirtazapine 45 mg tablet 45 mg PO BEDTIME #30 tabs 04/02/24 citalopram 40 mg tablet (Celexa) 40 mg PO QAM #30 tabs 05/20/24 benztropine 1 mg tablet 1 mg PO BID #60 tabs 06/05/24 clozapine 100 mg tablet See Rx Instructions .Route 06/05/24 .COMPLEX #180 tabs clozapine 50 mg tablet 50 mg PO QAM #30 tabs 06/05/24 oxybutynin chloride 15 mg 15 mg PO BEDTIME #90 tabs 06/20/24 tablet,extended release 24 hr cetirizine 10 mg capsule (Zyrtec) 10 mg PO DAILY PRN allergy 01/23/25 symptoms #14 caps budesonide-formoterol HFA 160 2 puff inhalation BID #10.2 grams 08/18/24 mcg-4.5 mcg/actuation aerosol inhaler (Symbicort) meloxicam 7.5 mg tablet 7.5 mg PO BID PRN INFLAMATION AND 08/22/24 PAIN. #60 tabs tramadol 50 mg tablet 50 mg PO BID PRN pain 30 days #60 08/27/24 tabs gabapentin 300 mg capsule 300 mg PO Q8H chronic pain 30 days 09/04/24 #90 caps lorazepam 1 mg tablet 1 mg PO BID #60 tabs 09/05/24 meclizine 50 mg tablet 50 mg PO BID PRN dizziness #20 tabs 09/11/24 Allergies Allergy/AdvReac Type Severity Reaction Status Date / Time ibuprofen Allergy Mild ALGY-Rash Verified 09/05/24 13:35 Review of Systems Narrative: Constitutional symptoms: Negative except as documented in HPI. Skin symptoms: Negative except as documented in HPI. Eye symptoms: Negative except as documented in HPI. ENMT symptoms: Negative except as documented in HPI. Respiratory symptoms: Negative except as documented in HPI. Cardiovascular symptoms: Negative except as documented in HPI. Gastrointestinal symptoms: Negative except as documented in HPI. Genitourinary symptoms: Negative except as documented in HPI. Musculoskeletal symptoms: Negative except as documented in HPI. Neurologic symptoms: Negative except as documented in HPI. Psychiatric symptoms: Negative except as documented in HPI. Endocrine symptoms: Negative except as documented in HPI. PFS ED PFSH: Medical History Encounter for chronic pain management Tramadol; Legacy patient on this from Dr. 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 Prediabetes Chronic bronchitis with COPD (chronic obstructive pulmonary disease) Mixed hyperlipidemia Psychiatric care Osteoarthritis (arthritis due to wear and tear of joints) Chronic pain disorder Right shoulder, bilateral lower extremities Obesity (BMI 30.0-34.9) GERD (gastroesophageal reflux disease) Surgical History Status post bilateral salpingo-oophorectomy (BSO) S/P laparoscopic assisted vaginal hysterectomy (LAVH) Family History Other CAD (coronary artery disease) Hypertension Social History Smoking and tobacco/nicotine status: current every day tobacco/nicotine user cigarettes Packs smoked per day: 0.5 Alcohol intake: never Substance/Drug Use: former Date of last use: 2012 Former substance use details: meth; hx of IV use Household members: none Marital status: Number of children: 2 Highest education level completed: High School Graduate Current occupational status: disabled 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 Skin: Warm, dry. Head: Normocephalic, atraumatic. Neck: Supple, trachea midline. Eye: Extraocular movements are intact. Ears, nose, mouth and throat: mucosa moist. Cardiovascular: Regular, Normal peripheral perfusion. Respiratory: Lungs are clear to auscultation, respirations are non-labored, breath sounds are equal, Symmetrical chest wall expansion. Gastrointestinal: Soft, Nontender, Non distended Musculoskeletal: Normal ROM, no deformity. Neurological: Alert and oriented, No focal neurological deficit observed. Psychiatric: Cooperative, appropriate mood & affect. Patient repeatedly denies any homicidal or suicidal ideation Course Vital Signs: Vital signs: Vital Signs Temperature 98.1 F 09/13/24 17:16 Pulse Rate 105 H 09/13/24 17:16 Respiratory Rate 20 H 09/13/24 17:16 Blood Pressure 106/73 09/13/24 17:16 Pulse Oximetry 95 09/13/24 17:16 Oxygen Delivery Me thod Room Air 09/13/24 17:16 MDM - Psych Medical Decision Making Discussed with patient that she may not qualify for inpatient admission and I put out a call to Dr. Martinez to discuss her case with him but in the meantime she decided she did not want to come in and continues to deny any homicidal or suicidal ideation. She says she will go see her primary care provider on Sunday. Assessment and plan: Depression - Discharged home - Discussed plan with patient. Answered any questions. - Evaluation and treatment of this problem were appropriate in the emergency setting. No radiology studies performed this visit Discharge Plan Discharge Patient Disposition: Home Clinical Impression: Depression Condition: Stable Prescriptions: No Action (DME) walker with seat See Rx Instructions .Route .MEDSUPPLY Qty: 1 0RF Rx Instructions: As directed mirtazapine 45 mg tablet 45 mg PO BEDTIME Qty: 30 11RF gabapentin 300 mg capsule 300 mg PO Q8H 30 Days Qty: 90 3RF acetaminophen 500 mg tablet 1,500 mg PO Q6H PRN (Reason: Moderate Pain (Scale Score 5-6)) dexlansoprazole 60 mg capsule,biphase delayed releas 60 mg PO DAILY PRN (Reason: Acid Reflux) citalopram [Celexa] 40 mg tablet 40 mg PO QAM Qty: 30 11RF clozapine 100 mg tablet See Rx Instructions .ROUTE .COMPLEX Qty: 180 11RF Rx Instructions: Take 2 tablets in the AM and 4 tablets in PM. clozapine 50 mg tablet 50 mg PO QAM Qty: 30 11RF Rx Instructions: Take one tablet in the morning with 200 mg dose of clozapine. benztropine 1 mg tablet 1 mg PO BID Qty: 60 11RF Zyrtec 10 mg capsule 10 mg PO DAILY PRN (Reason: allergy symptoms) Qty: 14 0RF lorazepam 1 mg tablet 1 mg PO BID Qty: 60 5RF oxybutynin chloride 15 mg tablet extended release 24hr 15 mg PO BEDTIME Qty: 90 1RF budesonide-formoterol [Symbicort] 160-4.5 mcg/actuation HFA aerosol inhaler 2 puff inhalation BID Qty: 10.2 2RF meloxicam 7.5 mg tablet 7.5 mg PO BID PRN (Reason: INFLAMATION AND PAIN.) Qty: 60 2RF tramadol 50 mg tablet 50 mg PO BID PRN (Reason: pain) 30 Days Qty: 60 0RF Rx Instructions: refill on or after 30 days montelukast [Singulair] 10 mg tablet 10 mg PO DAILY albuterol sulfate 90 mcg/actuation HFA aerosol inhaler 2 puff inhalation Q4H PRN (Reason: Shortness Of Breath Or Wheezing) fluticasone propionate 50 mcg/actuation spray,suspension 2 spray intranasal BID PRN (Reason: allergies) meclizine 50 mg tablet 50 mg PO BID PRN (Reason: dizziness) Qty: 20 0RF Discharge Orders: Discharge ED (Routine); Ordered 09/13/24 Ordered By: Carmela Nelson Referrals: Princess Glaser MD [Primary Care Provider] - Discharge Diet: Usual diet Discharge Activity: Increase activity as tolerated Patient Instructions: Depression (ED), Opioid Safety, Pain Management Activity Restrictions/Additional Instructions: If you develop suicidal thoughts, or thoughts of harming yourself, or thoughts of harming others please seek medical attention immediately. Thank you for choosing [facility] for your healthcare needs today. Please realize this is an emergency room and that we are providing you with a medical screening exam and this may not be complete and all inclusive of all the testing and or work up that you may need to determine your ailment or severity of your illness. You have been screened and evaluated and felt safe for discharge. Health conditions do change or evolve sometimes and as such it is important that you follow up with your Primary Doctor to be re checked, 3-5 days is a general good time frame for follow up. You are always welcome to return to the ED for re assessment if your symptoms are worsening or you have new concerns Print Language: Irish Coding Level of Care Code ED Finisher Denture for 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
== END 2024-09-13 18:08 | disposition home or self-care (01) ==
PROVIDERS: Emergency Provider Emergency Medicine; PCP Family Medicine
DX: F32.A Depression, unspecified (principal); J44.9 Chronic obstructive pulmonary disease, unspecified; E78.5 Hyperlipidemia, unspecified; F17.210 Nicotine dependence, cigarettes, uncomplicated
CPT/HCPCS: 99283

== ENCOUNTER 2024-09-14 08:44 | Emergency (ER) | payer MEDICARE, MEDICAID, SELFPAY ==
[2024-05-22 13:38] VITALS: BP 132/88; BMI 31.9
[2024-09-14 08:45] VITALS: BP 99/70; PULSE 107; RESP 16; TEMP 36.7; O2SAT 94; BMI 32.3
[2024-09-14 08:53] VITALS: BP 99/70; PULSE 107; RESP 16; TEMP 36.7; O2SAT 94
--- NOTE | 2024-09-14 09:04 | PC.NURSE ---
upon arrival patient was was able to stand up and transfer herself from the EMS cot and climb up in the bed. provider notified.
[2024-09-14 09:20] LABS: Basophils % 0.2 %; Eosinophils % 0.2 %; Hematocrit 39.6 % (36-47); Lymphocytes # 1.9 10^3/uL (0.8-4.8); Lymphocytes % 19.6 %; Mean Corpuscular HGB Conc 32.3 g/dL (30-55); Mean Corpuscular Hemoglobin 29.7 pg (27-33); Mean Corpuscular Volume 91.9 fl (85-98); Mean Platelet Volume 8.9 fL (7.4-10.4); Monocytes # 0.8 10^3/uL (0.2-0.9); Monocytes % 8.4 %; Neutrophils # 6.91 10^3/uL (1.8-7.7); Neutrophils % 70.4 %; Nucleated Red Blood Cells % 0 %; Platelet Count 259 10^3/cmm (157-399); Red Blood Count 4.31 10^6/uL (3.85-5.65); Red Cell Distribution Width 14.3 % (12.1-15.1); White Blood Count 9.81 10^3/uL (3.29-11.43)
--- NOTE | 2024-09-14 09:27 | PC.NURSE ---
this rn ambulated patient to the bathroom, pt used walker to get to the bathroom and ambulated steadily with device. after using the bathroom patient walks out and states 'i think i can make it back without it.' pt walked down the hallway back into her room with steady gait and no complaints. pt was able to get back into bed herself. call light given to pt. no other needs at this time.
[2024-09-14 09:31] LABS: Bilirubin Urine Negative (Negative); Blood Urine 1+ (Negative); Glucose Urine UA Negative (Normal); Ketones Urine Trace (Negative); Leukocyte Esterase Urine 3+ (Negative); Nitrate Urine Negative (Negative); Protein Urine 1+ (Negative); Specific Gravity, Urine 1.022 (1.005-1.030); Urine Appearance Turbid (CLEAR); Urine Color Dark Yellow (Yellow)
[2024-09-14 09:37] LABS: Add Urine Microscopic? YES; UA Manual Slide Review YES; WBC Urine 55-80 /hpf (0-5)
[2024-09-14 09:38] LABS: Add Urine Culture? Yes; Bacteria Urine 1+ /hpf; Squamous Epithelial Cell Urine 0-4 /hpf (0-5)
[2024-09-14 09:40] LABS: Alanine Aminotransferase 14 U/L (0-33); Alkaline Phosphatase 124 U/L (35-105); Anion Gap 13.7 (5-19); Aspartate Amino Transferase 13 U/L (0-32); Blood Urea Nitrogen 11 mg/dL (8-23); Calcium 9.6 mg/dL (8.5-10.5); Carbon Dioxide 25 mmol/L (22-29); Chloride 104 mmol/L (98-107); Creatinine Clr Calc Pharmacy 97.8671; Globulin 2.8 g/dL (1.3-4.6); Glucose 127 mg/dL (65-115); Osmolality Calculated 287 mOsm/kg (285-295); Potassium 4.7 mmol/L (3.5-5.1); Sodium 138 mmol/L (136-145); Total Bilirubin 0.2 mg/dL (0.15-1.2); Total Protein 6.8 g/dL (6.6-8.7)
--- NOTE | 2024-09-14 10:06 | W.ED.BACK ---
HPI - Back Pain/Injury General: Chief Complaint: Back Pain/Injury Stated Complaint: neck and back pain Time Seen by Provider: 09/14/24 09:01 History of Present Illness: This patient is a 59-year-old female with a history of psychiatric illness. She has been here several times this week with the same complaint which for me was not back pain but it was actually anxiety. She says that when she gets scared at home she feels like she is going to fall down. She called 911 and then reports that she feels better once she gets here. The last time she came in she took her Ativan prior to coming in and felt better when she got here. She did not take her Ativan today because she did not want me to just send her home because she felt better. On my initial evaluation she was laughing and joking. She was able to ambulate from the ambulance stretcher to the cot in the ER. She was able to ambulate to the bathroom and back. She declined a walker. She did request pain medication and some anxiety medicine while in the ER. We discussed that she should take her medicine at home. I did agree to give her 1 dose of Ativan here prior to discharge. I did not give any pain medications. I did do some basic workup including a urinalysis. She said she was recently treated for a UTI. Related Data Home Medications ?Medication ?Instructions ?Recorded ?Confirmed acetaminophen 500 mg tablet 1,500 mg PO Q6H PRN Moderate Pain 05/14/24 09/14/24 (Scale Score 5-6) dexlansoprazole 60 mg 60 mg PO DAILY PRN Acid Reflux 05/14/24 09/14/24 capsule,biphase delayed release montelukast 10 mg tablet 10 mg PO DAILY 05/21/24 09/14/24 (Singulair) fluticasone propionate 50 2 spray intranasal BID PRN 05/24/24 09/14/24 mcg/actuation nasal allergies spray,suspension albuterol sulfate 90 mcg/actuation 2 puff inhalation Q4H PRN 08/08/24 09/14/24 aerosol inhaler Shortness Of Breath Or Wheezing Previous Rx's ?Medication ?Instructions ?Recorded walker with seat #1 ea 08/25/23 mirtazapine 45 mg tablet 45 mg PO BEDTIME #30 tabs 04/02/24 citalopram 40 mg tablet (Celexa) 40 mg PO QAM #30 tabs 05/20/24 benztropine 1 mg tablet 1 mg PO BID #60 tabs 06/05/24 clozapine 100 mg tablet See Rx Instructions .Route 06/05/24 .COMPLEX #180 tabs clozapine 50 mg tablet 50 mg PO QAM #30 tabs 06/05/24 oxybutynin chloride 15 mg 15 mg PO BEDTIME #90 tabs 06/20/24 tablet,extended release 24 hr cetirizine 10 mg capsule (Zyrtec) 10 mg PO DAILY PRN allergy 08/14/24 symptoms #14 caps budesonide-formoterol HFA 160 2 puff inhalation BID #10.2 grams 08/18/24 mcg-4.5 mcg/actuation aerosol inhaler (Symbicort) meloxicam 7.5 mg tablet 7.5 mg PO BID PRN INFLAMATION AND 08/22/24 PAIN. #60 tabs tramadol 50 mg tablet 50 mg PO BID PRN pain 30 days #60 08/27/24 tabs gabapentin 300 mg capsule 300 mg PO Q8H chronic pain 30 days 09/04/24 #90 caps lorazepam 1 mg tablet 1 mg PO BID #60 tabs 09/05/24 meclizine 50 mg tablet 50 mg PO BID PRN dizziness #20 tabs 09/11/24 Allergies Allergy/AdvReac Type Severity Reaction Status Date / Time ibuprofen Allergy Mild ALGY-Rash Verified 09/14/24 08:54 [facility] ED [facility]: Medical History Encounter for chronic pain management Tramadol; Legacy patient on this from Dr. 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 Prediabetes Chronic bronchitis with COPD (chronic obstructive pulmonary disease) Mixed hyperlipidemia Psychiatric care Osteoarthritis (arthritis due to wear and tear of joints) Chronic pain disorder Right shoulder, bilateral lower extremities Obesity (BMI 30.0-34.9) GERD (gastroesophageal reflux disease) Surgical History Status post bilateral salpingo-oophorectomy (BSO) S/P laparoscopic assisted vaginal hysterectomy (LAVH) Family History Other CAD (coronary artery disease) Hypertension Social History Smoking and tobacco/nicotine status: current every day tobacco/nicotine user cigarettes Packs smoked per day: 0.5 Alcohol intake: never Substance/Drug Use: former Date of last use: 2012 Former substance use details: meth; hx of IV use Household members: none Marital status: Number of children: 2 Highest education level completed: High School Graduate Current occupational status: disabled 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; Do you think of yourself as: Straight/Heterosexual Female Reproductive History: Para: 2 Physical Exam Const: COMMON NORMALS: no acute distress, patient oriented x3, no limitations and alert GENERAL APPEARANCE: cooperative and comfortable HENMT: HEAD & SCALP: normal to inspection FACE & SINUS: normal facial exam Eye: GENERAL EYE: appearance normal, both eyes and all related structures Neck/C-Spine: COMMON NORMALS: supple, no meningeal signs and no JVD Chest: COMMONS NORMALS: normal inspection of the chest Resp: COMMON NORMALS: normal respiratory effort, No use of accessory muscles and clear to auscultation bilaterally AUSCULTATION: clear to auscultation bilaterally Cardio: COMMON NORMALS: no JVD, regular rate, regular rhythm and No murmurs present (Cardio) RATE: regular rate RHYTHM: regular rhythm GI: COMMON NORMALS: Normal to inspection, nondistended, normoactive bowel sounds present, Soft to palpation and non-tender INSPECTION: Yes normal to inspection AUSCULTATION: Yes normoactive bowel sounds PALPATION: Yes Soft to palpation Back/Pelvis: COMMON NORMALS: thoracic and lumbar spine normal to inspection Extremity: COMMON NORMALS: normal to inspection Neuro: COMMON NORMALS: patient oriented x3, moves all extremities, no focal motor deficits and no sensory deficits noted SENSORIUM/ORIENTATION: Yes alert MENINGEAL SIGNS: Yes no meningeal signs Psych: COMMON NORMALS: mental status grossly normal, cooperative and normal affect Skin: COMMON NORMALS: no rashes or lesions noted and turgor normal GENERAL SKIN EXAM: no rashes or lesions noted and turgor normal Course Vital Signs: Vital signs: Vital Signs Temperature 98.1 F 09/14/24 08:53 Pulse Rate 100 09/14/24 10:20 Respiratory Rate 16 09/14/24 08:53 Blood Pressure 129/81 09/14/24 10:20 Pulse Oximetry 94 09/14/24 10:20 MDM - Back Pain/Injury Medical Decision Making This patient is been here multiple times for the same complaint in this past week. She I believe, is getting frightened at home and coming in because she is alone and scared. We discussed how she can take her regular anxiety medicine at home when she needs it. She does plan to follow-up with her primary care and counselors Labs 09/14/24 09:14 09/14/24 09:14 Laboratory Results WBC 9.81 10^3/uL (3.29-11.43) 09/14/24 09:14 RBC 4.31 10^6/uL (3.85-5.65) 09/14/24 09:14 Hgb 12.80 g/dL (11.27-16.99) 09/14/24 09:14 Hct 39.6 % (36-47) 09/14/24 09:14 MCV 91.9 fl (85-98) 09/14/24 09:14 MCH 29.7 pg (27-33) 09/14/24 09:14 MCHC 32.3 g/dL (30-55) 09/14/24 09:14 RDW 14.3 % (12.1-15.1) 09/14/24 09:14 Plt Count 259 10^3/cmm (157-399) 09/14/24 09:14 MPV 8.9 fL (7.4-10.4) 09/14/24 09:14 Neut % (Auto) 70.4 % 09/14/24 09:14 Lymph % (Auto) 19.6 % 09/14/24 09:14 [place] % (Auto) 8.4 % 09/14/24 09:14 Eos % (Auto) 0.2 % 09/14/24 09:14 Baso % (Auto) 0.2 % 09/14/24 09:14 Neut # (Auto) 6.91 10^3/uL (1.8-7.7) 09/14/24 09:14 Lymph # (Auto) 1.9 10^3/uL (0.8-4.8) 09/14/24 09:14 [place] # (Auto) 0.8 10^3/uL (0.2-0.9) 09/14/24 09:14 Eos # (Auto) 0.0 10^3/uL (0.0-0.8) 09/14/24 09:14 Baso # (Auto) 0.0 10^3/uL (0.0-0.1) 09/14/24 09:14 Nucleated RBC % (auto) 0 % 09/14/24 09:14 Nucleated RBCs # 0.0 /100WBC 09/14/24 09:14 Sodium 138 mmol/L (136-145) 09/14/24 09:14 Potassium 4.7 mmol/L (3.5-5.1) 09/14/24 09:14 Chloride 104 mmol/L (98-107) 09/14/24 09:14 Carbon Dioxide 25 mmol/L (22-29) 09/14/24 09:14 Anion Gap 13.7 (5-19) 09/14/24 09:14 BUN 11 mg/dL (8-23) 09/14/24 09:14 Creatinine 0.6 mg/dL (0.5-0.9) 09/14/24 09:14 GFR Calculation 102.0 mL/min (90-130) 09/14/24 09:14 Glucose 127 mg/dL (65-115) H 09/14/24 09:14 Calculated Osmolality 287 mOsm/kg (285-295) 09/14/24 09:14 Calcium 9.6 mg/dL (8.5-10.5) 09/14/24 09:14 Total Bilirubin 0.2 mg/dL (0.15-1.2) 09/14/24 09:14 AST 13 U/L (0-32) 09/14/24 09:14 ALT 14 U/L (0-33) 09/14/24 09:14 Alkaline Phosphatase 124 U/L (35-105) H 09/14/24 09:14 Total Protein 6.8 g/dL (6.6-8.7) 09/14/24 09:14 Albumin 4.0 g/dL (3.5-5.2) 09/14/24 09:14 Globulin 2.8 g/dL (1.3-4.6) 09/14/24 09:14 Urine Color Dark yellow (Yellow) A 09/14/24 09:22 Urine Appearance Turbid (CLEAR) A 09/14/24 09:22 Urine pH 6.0 (5-7) 09/14/24 09:22 Ur Specific [place] 1.022 (1.005-1.030) 09/14/24 09:22 Urine Protein 1+ (Negative) A 09/14/24 09:22 Urine Glucose (UA) Negative (Normal) 09/14/24 09:22 Urine Ketones Trace (Negative) 09/14/24 09:22 Urine Blood 1+ (Negative) A 09/14/24 09:22 Urine Nitrate Negative (Negative) 09/14/24 09:22 Urine Bilirubin Negative (Negative) 09/14/24 09:22 Urine Urobilinogen 1.0 mg/dL (Negative) 09/14/24 09:22 Ur Leukocyte Esterase 3+ (Negative) A 09/14/24 09:22 Urine RBC 5-10 /hpf (0-2) H 09/14/24 09:22 Urine WBC 55-80 /hpf (0-5) H 09/14/24 09:22 Ur Squamous Epith Cells 0-4 /hpf (0-5) H 09/14/24 09:22 Amorphous Sediment Not Reportable 09/14/24 09:22 Urine Bacteria 1+ /hpf (NONE) H 09/14/24 09:22 No radiology studies performed this visit Discharge Plan Discharge Patient Disposition: Home Clinical Impression: Chronic bilateral low back pain Qualifiers: Sciatica presence: without sciatica Qualified Code(s): M54.50 - Low back pain, unspecified Anxiety disorder Qualifiers: Anxiety disorder type: other anxiety disorder Qualified Code(s): F41.8 - Other specified anxiety disorders Condition: Stable Prescriptions: No Action (DME) walker with seat See Rx Instructions .Route .MEDSUPPLY Qty: 1 0RF Rx Instructions: As directed mirtazapine 45 mg tablet 45 mg PO BEDTIME Qty: 30 11RF gabapentin 300 mg capsule 300 mg PO Q8H 30 Days Qty: 90 3RF acetaminophen 500 mg tablet 1,500 mg PO Q6H PRN (Reason: Moderate Pain (Scale Score 5-6)) dexlansoprazole 60 mg capsule,biphase delayed releas 60 mg PO DAILY PRN (Reason: Acid Reflux) citalopram [Celexa] 40 mg tablet 40 mg PO QAM Qty: 30 11RF clozapine 100 mg tablet See Rx Instructions .ROUTE .COMPLEX Qty: 180 11RF Rx Instructions: Take 2 tablets in the AM and 4 tablets in PM. clozapine 50 mg tablet 50 mg PO QAM Qty: 30 11RF Rx Instructions: Take one tablet in the morning with 200 mg dose of clozapine. benztropine 1 mg tablet 1 mg PO BID Qty: 60 11RF Zyrtec 10 mg capsule 10 mg PO DAILY PRN (Reason: allergy symptoms) Qty: 14 0RF lorazepam 1 mg tablet 1 mg PO BID Qty: 60 5RF oxybutynin chloride 15 mg tablet extended release 24hr 15 mg PO BEDTIME Qty: 90 1RF budesonide-formoterol [Symbicort] 160-4.5 mcg/actuation HFA aerosol inhaler 2 puff inhalation BID Qty: 10.2 2RF meloxicam 7.5 mg tablet 7.5 mg PO BID PRN (Reason: INFLAMATION AND PAIN.) Qty: 60 2RF tramadol 50 mg tablet 50 mg PO BID PRN (Reason: pain) 30 Days Qty: 60 0RF Rx Instructions: refill on or after 30 days montelukast [Singulair] 10 mg tablet 10 mg PO DAILY albuterol sulfate 90 mcg/actuation HFA aerosol inhaler 2 puff inhalation Q4H PRN (Reason: Shortness Of Breath Or Wheezing) fluticasone propionate 50 mcg/actuation spray,suspension 2 spray intranasal BID PRN (Reason: allergies) meclizine 50 mg tablet 50 mg PO BID PRN (Reason: dizziness) Qty: 20 0RF Discharge Orders: Discharge ED (Routine); Ordered 09/14/24 Ordered By: Janine Ann Referrals: Princess Glaser MD [Primary Care Provider] - Discharge Diet: Usual diet Discharge Activity: Resume usual activity Patient Instructions: Opioid Safety, Pain Management Activity Restrictions/Additional Instructions: Take your own regular medications. Follow up with your primary care provider for chronic health concerns. Print Language: Maltese Coding Level of Care Code ED Go Go Dancer for 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
[2024-09-14] MEDS: LORazepam 1 mg Tablet PO (10:16)
[2024-09-14 10:20] VITALS: BP 129/81; PULSE 100; O2SAT 94
== END 2024-09-14 10:24 | disposition home or self-care (01) ==
PROVIDERS: Emergency Provider Emergency Medicine; PCP Family Medicine
DX: M54.50 Low back pain, unspecified (principal); F41.8 Other specified anxiety disorders; F17.210 Nicotine dependence, cigarettes, uncomplicated; J44.9 Chronic obstructive pulmonary disease, unspecified
CPT/HCPCS: 36415; 80053; 81001; 85025; 87086; 99283

== ENCOUNTER 2024-09-16 14:02 | Emergency (ER) | payer MEDICARE, MEDICAID, SELFPAY ==
[2024-09-15 09:50] VITALS: BP 132/88; BMI 31.9
[2024-09-16 14:04] VITALS: BP 133/75; PULSE 105; RESP 18; TEMP 36.8; O2SAT 95
--- NOTE | 2024-09-16 14:12 | W.ED.GENADLT ---
HPI - General Adult General: Chief complaint: General Medical Stated complaint: OUT OF MEDS Time Seen by Provider: 09/16/24 14:03 Source: patient Mode of arrival: ambulatory Limitations: no limitations History of Present Illness: 59-year-old female who is well-known to the ER she has a history of chronic pain along with anxiety she states she had went to the pharmacy today as she is out of her Ativan and her tramadol and she does not have a refill total fourth so she called the ambulance she has no other complaints at this time she rates her back pain a 4 out of 10 and feels like her back pain always does she denies SI or HI Associated symptoms: Deny chest pain, dyspnea, headache(s), nausea, rash or vomiting Related Data Home Medications ?Medication ?Instructions ?Recorded ?Confirmed acetaminophen 500 mg tablet 1,500 mg PO Q6H PRN Moderate Pain 05/14/24 09/14/24 (Scale Score 5-6) dexlansoprazole 60 mg 60 mg PO DAILY PRN Acid Reflux 05/14/24 09/14/24 capsule,biphase delayed release montelukast 10 mg tablet 10 mg PO DAILY 05/21/24 09/14/24 (Singulair) fluticasone propionate 50 2 spray intranasal BID PRN 05/24/24 09/14/24 mcg/actuation nasal allergies spray,suspension albuterol sulfate 90 mcg/actuation 2 puff inhalation Q4H PRN 08/08/24 09/14/24 aerosol inhaler Shortness Of Breath Or Wheezing Previous Rx's ?Medication ?Instructions ?Recorded walker with seat #1 ea 08/25/23 mirtazapine 45 mg tablet 45 mg PO BEDTIME #30 tabs 04/02/24 citalopram 40 mg tablet (Celexa) 40 mg PO QAM #30 tabs 05/20/24 benztropine 1 mg tablet 1 mg PO BID #60 tabs 06/05/24 clozapine 100 mg tablet See Rx Instructions .Route 06/05/24 .COMPLEX #180 tabs clozapine 50 mg tablet 50 mg PO QAM #30 tabs 06/05/24 oxybutynin chloride 15 mg 15 mg PO BEDTIME #90 tabs 06/20/24 tablet,extended release 24 hr cetirizine 10 mg capsule (Zyrtec) 10 mg PO DAILY PRN allergy 08/14/24 symptoms #14 caps budesonide-formoterol HFA 160 2 puff inhalation BID #10.2 grams 08/18/24 mcg-4.5 mcg/actuation aerosol inhaler (Symbicort) meloxicam 7.5 mg tablet 7.5 mg PO BID PRN INFLAMATION AND 08/22/24 PAIN. #60 tabs gabapentin 300 mg capsule 300 mg PO Q8H chronic pain 30 days 09/04/24 #90 caps lorazepam 1 mg tablet 1 mg PO BID #60 tabs 09/05/24 meclizine 50 mg tablet 50 mg PO BID PRN dizziness #20 tabs 09/11/24 hydroxyzine pamoate 25 mg capsule 25 mg PO Q8H PRN anxiety #20 caps 09/16/24 tramadol 50 mg tablet 50 mg PO BID PRN pain 30 days #60 09/16/24 tabs Allergies Allergy/AdvReac Type Severity Reaction Status Date / Time ibuprofen Allergy Mild ALGY-Rash Verified 09/14/24 08:54 Review of Systems Const: Denies: fever(s), chills, body aches or change in appetite ENMT: Denies: throat pain or dental pain Card: Denies: chest pain Resp: Denies: dyspnea GI: Denies: abdominal pain, nausea, vomiting or diarrhea Musc: Reports: back pain; Denies: neck pain Skin/Breast: Denies: rash Neuro: Denies: headache(s) Psych: Reports: anxiety [facility] PFSH: Medical History Encounter for chronic pain management Tramadol; Legacy patient on this from Dr. 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 Prediabetes Chronic bronchitis with COPD (chronic obstructive pulmonary disease) Mixed hyperlipidemia Psychiatric care Osteoarthritis (arthritis due to wear and tear of joints) Chronic pain disorder Right shoulder, bilateral lower extremities Obesity (BMI 30.0-34.9) GERD (gastroesophageal reflux disease) Surgical History Status post bilateral salpingo-oophorectomy (BSO) S/P laparoscopic assisted vaginal hysterectomy (LAVH) Family History Other CAD (coronary artery disease) Hypertension Social History Smoking and tobacco/nicotine status: current every day tobacco/nicotine user cigarettes Packs smoked per day: 0.5 Alcohol intake: never Substance/Drug Use: former Date of last use: 2012 Former substance use details: meth; hx of IV use Household members: none Marital status: Number of children: 2 Highest education level completed: High School Graduate Current occupational status: disabled 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; Do you think of yourself as: Straight/Heterosexual Female Reproductive History: Para: 2 Physical Exam Const: COMMON NORMALS: no acute distress, patient oriented x3 and healthy appearing HENMT: COMMON NORMALS: normocephalic and atraumatic HEAD & SCALP: normocephalic and atraumatic Eye: COMMON NORMALS: conjunctivae normal CONJUNCTIVA: Yes conjunctivae normal Neck/C-Spine: COMMON NORMALS: full ROM and supple Chest: COMMONS NORMALS: normal inspection of the chest and normal palpation of entire chest wall Resp: COMMON NORMALS: normal respiratory effort Cardio: COMMON NORMALS: regular rate RATE: regular rate Extremity: COMMON NORMALS: normal to inspection and full ROM Neuro: COMMON NORMALS: patient oriented x3, moves all extremities and no focal motor deficits Psych: COMMON NORMALS: mental status grossly normal, Normal thought process present and cooperative THOUGHT PROCESS: Normal thought process present Skin: COMMON NORMALS: no rashes or lesions noted and no wounds GENERAL SKIN EXAM: no rashes or lesions noted Course Vital Signs: Vital signs: Vital Signs Temperature 98.2 F 09/16/24 14:04 Pulse Rate 95 09/16/24 14:41 Respiratory Rate 18 09/16/24 14:41 Blood Pressure 115/72 09/16/24 14:41 Pulse Oximetry 95 09/16/24 14:41 Oxygen Delivery Me thod Room Air 09/16/24 14:04 MDM - General Adult Medical Decision Making Patient presents here wanting medication refills informed but not able to refill her benzos or her tramadol she has to get them from her PCP she is well-appearing here stable for discharge No radiology studies performed this visit Discharge Plan Discharge Patient Disposition: Home Clinical Impression: Medication refill Anxiety disorder Qualifiers: Anxiety disorder type: other anxiety disorder Qualified Code(s): F41.8 - Other specified anxiety disorders Condition: Stable Prescriptions: New hydroxyzine pamoate 25 mg capsule 25 mg PO Q8H PRN (Reason: anxiety) Qty: 20 0RF No Action (DME) walker with seat See Rx Instructions .Route .MEDSUPPLY Qty: 1 0RF Rx Instructions: As directed mirtazapine 45 mg tablet 45 mg PO BEDTIME Qty: 30 11RF gabapentin 300 mg capsule 300 mg PO Q8H 30 Days Qty: 90 3RF acetaminophen 500 mg tablet 1,500 mg PO Q6H PRN (Reason: Moderate Pain (Scale Score 5-6)) dexlansoprazole 60 mg capsule,biphase delayed releas 60 mg PO DAILY PRN (Reason: Acid Reflux) citalopram [Celexa] 40 mg tablet 40 mg PO QAM Qty: 30 11RF clozapine 100 mg tablet See Rx Instructions .ROUTE .COMPLEX Qty: 180 11RF Rx Instructions: Take 2 tablets in the AM and 4 tablets in PM. clozapine 50 mg tablet 50 mg PO QAM Qty: 30 11RF Rx Instructions: Take one tablet in the morning with 200 mg dose of clozapine. benztropine 1 mg tablet 1 mg PO BID Qty: 60 11RF Zyrtec 10 mg capsule 10 mg PO DAILY PRN (Reason: allergy symptoms) Qty: 14 0RF lorazepam 1 mg tablet 1 mg PO BID Qty: 60 5RF oxybutynin chloride 15 mg tablet extended release 24hr 15 mg PO BEDTIME Qty: 90 1RF budesonide-formoterol [Symbicort] 160-4.5 mcg/actuation HFA aerosol inhaler 2 puff inhalation BID Qty: 10.2 2RF meloxicam 7.5 mg tablet 7.5 mg PO BID PRN (Reason: INFLAMATION AND PAIN.) Qty: 60 2RF tramadol 50 mg tablet 50 mg PO BID PRN (Reason: pain) 30 Days Qty: 60 0RF Rx Instructions: refill on or after 30 days montelukast [Singulair] 10 mg tablet 10 mg PO DAILY albuterol sulfate 90 mcg/actuation HFA aerosol inhaler 2 puff inhalation Q4H PRN (Reason: Shortness Of Breath Or Wheezing) fluticasone propionate 50 mcg/actuation spray,suspension 2 spray intranasal BID PRN (Reason: allergies) meclizine 50 mg tablet 50 mg PO BID PRN (Reason: dizziness) Qty: 20 0RF Discharge Orders: Discharge ED (Routine); Ordered 09/16/24 Ordered By: Kade Smith Referrals: Princess Glaser MD [Primary Care Provider] - Discharge Diet: Advance as tolerated Discharge Activity: Resume usual activity Patient Instructions: Anxiety (ED) Print Language: Fijian Coding Level of Care Code ED Atm Manager for 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
[2024-09-16] MEDS: LORazepam 1 mg Tablet PO (14:35)
[2024-09-16] MEDS: HYDROcodone-acetaminophen 5-325 mg Tablet 1 TAB PO (14:35)
[2024-09-16 14:41] VITALS: BP 115/72; PULSE 95; RESP 18; O2SAT 95
== END 2024-09-16 14:42 | disposition home or self-care (01) ==
PROVIDERS: Emergency Provider Emergency Medicine; PCP Family Medicine
DX: Z76.0 Encounter for issue of repeat prescription (principal); F41.8 Other specified anxiety disorders; F17.210 Nicotine dependence, cigarettes, uncomplicated; J44.9 Chronic obstructive pulmonary disease, unspecified
CPT/HCPCS: 99283

== ENCOUNTER → 2024-10-08 09:41 | Outpatient (BNVA) | payer MEDICARE, SELFPAY ==
[2024-09-15 09:50] VITALS: BP 132/88; BMI 31.9
== END ==
PROVIDERS: PCP Family Medicine; Visit Provider Psychiatry & Neurology Psychiatry
DX: F20.89 Other schizophrenia (principal); F33.42 Major depressive disorder, recurrent, in full remission; F41.8 Other specified anxiety disorders; F17.210 Nicotine dependence, cigarettes, uncomplicated; Z79.899 Other long term (current) drug therapy
CPT/HCPCS: 80061; 83036; 85007; 85027

== ENCOUNTER 2024-10-11 19:56 | Emergency (ER) | payer MEDICARE, MEDICAID, SELFPAY ==
[2024-09-15 09:50] VITALS: BP 132/88; BMI 31.9
[2024-10-11 20:01] VITALS: BP 122/81; PULSE 94; RESP 16; TEMP 36.4; O2SAT 95; BMI 30.5
[2024-10-11 21:21] VITALS: BP 121/81; PULSE 92; RESP 16; O2SAT 96
[2024-10-11 21:31] VITALS: BP 103/65; O2SAT 96
--- NOTE | 2024-10-11 21:35 | XRR_ITS ---
PROCEDURE INFORMATION: Exam: XR Sacrum and Coccyx, 2 or More Views Exam date and time: 10/11/2024 10:06 PM Age: 59 years old Clinical indication: Pain in coccyx area; Low back pain; Lower back/sacrum/coccyx pain; No known injury TECHNIQUE: Imaging protocol: XR of the sacrum and coccyx, 2 or more views. COMPARISON: CR XR lumbar spine 2-3V* [id number] 10/14/2023 2:22 PM FINDINGS: Bones/joints: No acute fracture. No dislocation. Soft tissues: Normal. Vasculature: Multiple pelvic phleboliths. PROCEDURE INFORMATION: Exam: XR Lumbosacral Spine Exam date and time: 10/11/2024 10:06 PM Age: 59 years old Clinical indication: Pain in coccyx area; Low back pain; Lower back/sacrum/coccyx pain; No known injury TECHNIQUE: Imaging protocol: Radiologic exam of the lumbosacral spine. Views: 2 or 3 views. COMPARISON: CR XR lumbar spine 2-3V* [id number] 10/14/2023 2:22 PM FINDINGS: Bones/joints: Mild multilevel degenerative disease of the lumbosacral spine. Multilevel endplate sclerosis. Degenerative disc disease most prominently seen at L5-S1. Probable facet joint arthropathy at this level. No acute fracture. No dislocation. Similar minimal anterior compression deformities of T11, T12 and L4. Soft tissues: Unremarkable. XR/XR lumbar spine 2-3V* [id number] IMPRESSION: No acute fracture or dislocation. IMPRESSION: 1. No acute fracture or dislocation. Mild degenerative changes of the lumbosacral spine. 2. Stable minimal anterior compression deformities of T11, T12 and L4.
--- NOTE | 2024-10-11 21:35 | XRR_ITS ---
PROCEDURE INFORMATION: Exam: XR Sacrum and Coccyx, 2 or More Views Exam date and time: 10/11/2024 10:06 PM Age: 59 years old Clinical indication: Pain in coccyx area; Low back pain; Lower back/sacrum/coccyx pain; No known injury TECHNIQUE: Imaging protocol: XR of the sacrum and coccyx, 2 or more views. COMPARISON: CR XR lumbar spine 2-3V* [id number] 10/14/2023 2:22 PM FINDINGS: Bones/joints: No acute fracture. No dislocation. Soft tissues: Normal. Vasculature: Multiple pelvic phleboliths. PROCEDURE INFORMATION: Exam: XR Lumbosacral Spine Exam date and time: 10/11/2024 10:06 PM Age: 59 years old Clinical indication: Pain in coccyx area; Low back pain; Lower back/sacrum/coccyx pain; No known injury TECHNIQUE: Imaging protocol: Radiologic exam of the lumbosacral spine. Views: 2 or 3 views. COMPARISON: CR XR lumbar spine 2-3V* [id number] 10/14/2023 2:22 PM FINDINGS: Bones/joints: Mild multilevel degenerative disease of the lumbosacral spine. Multilevel endplate sclerosis. Degenerative disc disease most prominently seen at L5-S1. Probable facet joint arthropathy at this level. No acute fracture. No dislocation. Similar minimal anterior compression deformities of T11, T12 and L4. Soft tissues: Unremarkable. XR/XR sacrum coccyx min 2V [id number] IMPRESSION: No acute fracture or dislocation. IMPRESSION: 1. No acute fracture or dislocation. Mild degenerative changes of the lumbosacral spine. 2. Stable minimal anterior compression deformities of T11, T12 and L4.
--- NOTE | 2024-10-11 21:36 | ED_ITS ---
HPI - General Adult General: Chief complaint: General Medical Stated complaint: distoration mhe mental anguish Time Seen by Provider: 10/11/24 21:16 Source: patient Mode of arrival: EMS Limitations: no limitations History of Present Illness: Patient is a 59-year-old female who is extremely well-known to our emergency department here for a plethora of medical complaints. She begins by telling me about her mental anguish . She is not sure really how to describe this but tells me that her mind and body are trying to regenerate. She tells me she does see Dr. Slim Denis at [facility] [place]. She feels like for the most part, her psychiatric meds are working. She is not suicidal or homicidal. She states she struggles with things that she did in my past . Patient states that she feels like her body is falling apart and has pain all over . When I asked Hilda what made her call an ambulance this evening and what I can provide for her from the emergency department she tells me that the main reason she came was her back. States she had four compound fractures diagnosed over a year ago and it continues to bother her-more so over the past few weeks. Onset (ago): week(s) Relieving factors: none Exacerbating factors: movement (walking ) Associated symptoms: Reports no associated symptoms; Deny chest pain, dyspnea, malaise, nausea, rash, palpitations, syncope or vomiting Treatments prior to arrival: none Related Data Home Medications ?Medication ?Instructions ?Recorded ?Confirmed acetaminophen 500 mg tablet 1,500 mg PO Q6H PRN Modera te Pain 05/14/24 10/08/24 (Scale Score 5-6) dexlansoprazole 60 mg 60 mg PO DAILY PRN Acid Refl ux 05/14/24 10/08/24 capsule,biphase delayed release fluticasone propionate 50 2 spray intranasal BID PRN 1 07/24/23 10/08/24 mcg/actuation nasal allergies spray,suspension albuterol sulfate 90 mcg/actuation 2 puff inhalation Q 4H PRN 08/08/24 10/08/24 aerosol inhaler Shortness Of Breath Or Wheez ing Previous Rx's ?Medication ?Instructions ?Recorded walker with seat #1 ea 08/25/23 mirtazapine 45 mg tablet 45 mg PO BEDTIME #30 tabs 09 /11/24 citalopram 40 mg tablet (Celexa) 40 mg PO QAM #30 tabs 05/20/24 benztropine 1 mg tablet 1 mg PO BID #60 tabs 4 clozapine 100 mg tablet See Rx Instructions .Route 1 08/05/23 .COMPLEX #180 tabs clozapine 50 mg tablet 50 mg PO QAM #30 tabs oxybutynin chloride 15 mg 15 mg PO BEDTIME #90 tabs tablet,extended release 24 hr cetirizine 10 mg capsule (Zyrtec) 10 mg PO DAILY PRN a llergy 08/14/24 symptoms #14 caps budesonide-formoterol HFA 160 2 puff inhalation BID #1 0.2 grams 08/18/24 mcg-4.5 mcg/actuation aerosol inhaler (Symbicort) meloxicam 7.5 mg tablet 7.5 mg PO BID PRN INFLAMATIO N AND 08/22/24 PAIN. #60 tabs gabapentin 300 mg capsule 300 mg PO Q8H chronic pain 3 0 days 09/04/24 #90 caps meclizine 50 mg tablet 50 mg PO BID PRN dizziness # 20 tabs 09/11/24 tramadol 50 mg tablet 50 mg PO BID PRN pain 30 day s #60 09/16/24 tabs montelukast 10 mg tablet See Rx Instructions .Route 0 09/18/24 .COMPLEX #90 tabs lorazepam 0.5 mg tablet 0.5 mg PO BID anxiety #12 ta bs 10/08/24 Allergies Allergy/AdvReac Type Severity Reaction Status Date / Time ibuprofen Allergy Mild ALGY-Rash Verified 10/08/24 09:43 Review of Systems Const: Denies: fever(s), chills, body aches, fatigue or malaise Eyes: Denies: change in vision or blurry vision Card: Denies: chest pain, palpitations, irregular heart rhythm, lightheadedness, syncope or dyspnea on exertion Resp: Denies: dyspnea, productive cough or pain on inspiration GI: Denies: abdominal pain, nausea, vomiting, heartburn or diarrhea : Denies: dysuria Musc: Reports: neck pain (chronic); Denies: back pain (chronic) or joint pain Skin/Breast: Denies: rash Neuro: Denies: numbness in extremities, weakness in extremities or sensory changes Psych: Denies: visual hallucinations, auditory hallucinations, suicidal ideation or homicidal ideation [facility] PFSH: Medical History Encounter for chronic pain management Tramadol; Legacy patient on this from Dr. 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 Prediabetes Chronic bronchitis with COPD (chronic obstructive pulmonary disease) Mixed hyperlipidemia Psychiatric care Osteoarthritis (arthritis due to wear and tear of joints) Chronic pain disorder Right shoulder, bilateral lower extremities Obesity (BMI 30.0-34.9) GERD (gastroesophageal reflux disease) Surgical History Status post bilateral salpingo-oophorectomy (BSO) S/P laparoscopic assisted vaginal hysterectomy (LAVH) Family History Other CAD (coronary artery disease) Hypertension Social History Smoking and tobacco/nicotine status: current every day tobacco/nicotine user cigarettes Packs smoked per day: 0.5 Alcohol intake: never Substance/Drug Use: former Date of last use: 2012 Former substance use details: meth; hx of IV use Household members: none Marital status: Number of children: 2 Highest education level completed: High School Graduate Current occupational status: disabled 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; Do you think of yourself as: Straight/Heterosexual Female Reproductive History: Para: 2 Physical Exam Const: COMMON NORMALS: no acute distress, patient oriented x3, no limitations, alert and well nourished GENERAL APPEARANCE: cooperative ORIENTATION/CONSCIOUSNESS: Yes awake, Yes oriented to person, Yes oriented to place and Yes oriented to time HENMT: COMMON NORMALS: normocephalic and atraumatic HEAD & SCALP: normocephalic and atraumatic Neck/C-Spine: COMMON NORMALS: full ROM, no lymphadenopathy, supple and no meningeal signs Chest: COMMONS NORMALS: normal inspection of the chest Resp: COMMON NORMALS: normal respiratory effort and clear to auscultation bilaterally AUSCULTATION: clear to auscultation bilaterally Cardio: COMMON NORMALS: regular rate and regular rhythm RATE: regular rate RHYTHM: regular rhythm GI: COMMON NORMALS: Normal to inspection, nondistended, normoactive bowel sounds present, Soft to palpation, non-tender, No hepatosplenomegaly present and no masses PALPATION: Yes Soft to palpation and Yes No hepatosplenomegaly present : COMMON NORMALS: Yes no CVA tenderness BLADDER/KIDNEY EXAM: Yes no CVA tenderness Back/Pelvis: COMMON NORMALS: no CVA tenderness THORACIC SPINE/UPPER BACK: No thoracic spinal tenderness LUMBAR SPINE/LOWER BACK: Yes lumbar spinal tenderness and Yes straight leg raise negative bilaterally PELVIS: Yes buttocks normal SACRUM: tenderness COCCYX: no tenderness Extremity: COMMON NORMALS: normal to inspection GENERAL: Yes normal exam except as noted Neuro: COMMON NORMALS: patient oriented x3, moves all extremities, no focal motor deficits, no sensory deficits noted and gait normal SENSORIUM/ORIENTATION: Yes alert, Yes oriented to person, Yes oriented to place and Yes oriented to time MENINGEAL SIGNS: Yes no meningeal signs Skin: COMMON NORMALS: no rashes or lesions noted GENERAL SKIN EXAM: no rashes or lesions noted Course Vital Signs: Vital signs: Vital Signs Temperature 97.6 F 10/11/24 20:01 Pulse Rate 71 10/11/24 22:55 Respiratory Rate 16 10/11/24 22:55 Blood Pressure 135/92 10/11/24 22:55 Pulse Oximetry 98 10/11/24 22:55 Oxygen Delivery Me thod Room Air 10/11/24 20:01 [facility] - General Adult Medical Decision Making Patient is a 59-year-old female well-known to our emergency department. She is many complaints at this time however none of which are emergent or life- threatening. She states her main reason for calling an ambulance today was her lower back pain. X-rays of her lower back and sacrum were obtained and unremarkable. She was given pain medications and upon reassessment, claims to feel better. She is ambulatory here in the emergency department without difficulty or assistance. Recommend she follow-up with her primary care provider and her psychiatrist. We also discussed utilization of her crisis stabilization center. She is not suicidal or homicidal. She will be allowed discharge. Medical Records I reviewed the patient's medical records. Lab Data Radiology Impressions Lumbar Spine X-Ray 10/11/24 21:35 IMPRESSION: No acute fracture or dislocation. IMPRESSION: 1. No acute fracture or dislocation. Mild degenerative changes of the lumbosacral spine. 2. Stable minimal anterior compression deformities of T11, T12 and L4. Sacrum and Coccyx X-Ray 10/11/24 21:35 IMPRESSION: No acute fracture or dislocation. IMPRESSION: 1. No acute fracture or dislocation. Mild degenerative changes of the lumbosacral spine. 2. Stable minimal anterior compression deformities of T11, T12 and L4. XR interpretation done by ED provider, pending radiology final review Discharge Plan Discharge Patient Disposition: Home Clinical Impression: Chronic back pain Qualifiers: Back pain location: low back pain Back pain laterality: midline Sciatica presence: without sciatica Qualified Code(s): M54.50 - Low back pain, unspecified Condition: Stable Prescriptions: No Action (DME) walker with seat See Rx Instructions .Route .MEDSUPPLY Qty: 1 0RF Rx Instructions: As directed mirtazapine 45 mg tablet 45 mg PO BEDTIME Qty: 30 11RF gabapentin 300 mg capsule 300 mg PO Q8H 30 Days Qty: 90 3RF acetaminophen 500 mg tablet 1,500 mg PO Q6H PRN (Reason: Moderate Pain (Scale Score 5-6)) dexlansoprazole 60 mg capsule,biphase delayed releas 60 mg PO DAILY PRN (Reason: Acid Reflux) citalopram [Celexa] 40 mg tablet 40 mg PO QAM Qty: 30 11RF clozapine 100 mg tablet See Rx Instructions .ROUTE .COMPLEX Qty: 180 11RF Rx Instructions: Take 2 tablets in the AM and 4 tablets in PM. clozapine 50 mg tablet 50 mg PO QAM Qty: 30 11RF Rx Instructions: Take one tablet in the morning with 200 mg dose of clozapine. benztropine 1 mg tablet 1 mg PO BID Qty: 60 11RF Zyrtec 10 mg capsule 10 mg PO DAILY PRN (Reason: allergy symptoms) Qty: 14 0RF oxybutynin chloride 15 mg tablet extended release 24hr 15 mg PO BEDTIME Qty: 90 1RF budesonide-formoterol [Symbicort] 160-4.5 mcg/actuation HFA aerosol inhaler 2 puff inhalation BID Qty: 10.2 2RF meloxicam 7.5 mg tablet 7.5 mg PO BID PRN (Reason: INFLAMATION AND PAIN.) Qty: 60 2RF tramadol 50 mg tablet 50 mg PO BID PRN (Reason: pain) 30 Days Qty: 60 0RF Rx Instructions: refill on or after 30 days montelukast 10 mg tablet See Rx Instructions .ROUTE .COMPLEX Qty: 90 1RF Dose Instruction: TAKE 1 TABLET BY MOUTH EVERY MORNING Rx Instructions: TAKE 1 TABLET BY MOUTH EVERY MORNING lorazepam 0.5 mg tablet 0.5 mg PO BID Qty: 12 0RF albuterol sulfate 90 mcg/actuation HFA aerosol inhaler 2 puff inhalation Q4H PRN (Reason: Shortness Of Breath Or Wheezing) fluticasone propionate 50 mcg/actuation spray,suspension 2 spray intranasal BID PRN (Reason: allergies) meclizine 50 mg tablet 50 mg PO BID PRN (Reason: dizziness) Qty: 20 0RF Discharge Orders: Discharge ED (Routine); Ordered 10/11/24 Ordered By: Zayda Villavicencio Referrals: Princess Glaser MD [Primary Care Provider] - Activity Restrictions/Additional Instructions: X-rays of your lower back did not show any acute injuries. As we discussed we are in emergency department here to diagnose and treat life-threatening or emergent conditions. You had several complaints today, most of which can be followed up by your outpatient specialists including your primary care provider and psychiatrist. Print Language: Sinhala Coding Level of Care Code ED Editor At Large for 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
[2024-10-11 21:43] VITALS: RESP 18
[2024-10-11] MEDS: ondansetron 2 mg/ML SDV 2 mL 4 MG IM (21:43)
[2024-10-11] MEDS: morphine 4 mg/mL SDV 1 mL IM (21:43)
[2024-10-11 22:55] VITALS: BP 135/92; PULSE 71; RESP 16; O2SAT 98
== END 2024-10-11 22:56 | disposition home or self-care (01) ==
PROVIDERS: Emergency Provider Physician Assistant; PCP Family Medicine
DX: M54.50 Low back pain, unspecified (principal); F17.210 Nicotine dependence, cigarettes, uncomplicated; J44.9 Chronic obstructive pulmonary disease, unspecified; E78.2 Mixed hyperlipidemia
CPT/HCPCS: 72100; 72220; 96372; 99284; J2270; J2405

== ENCOUNTER 2024-10-15 11:25 | Emergency (ER) | payer MEDICARE, MEDICAID, SELFPAY ==
[2024-09-15 09:50] VITALS: BP 132/88; BMI 31.9
[2024-10-15 11:32] VITALS: BP 118/82; PULSE 93; RESP 18; TEMP 36.6; O2SAT 98; BMI 30.3
--- NOTE | 2024-10-15 11:51 | W.ED.PSYCHS ---
HPI - Psych General: Chief Complaint: Psychiatric Symptoms Stated Complaint: medication issues Time Seen by Provider: 10/15/24 11:35 Source: patient Mode of arrival: ambulatory Limitations: no limitations History of Present Illness: 59-year-old female who is well-known to ER has long history of chronic pain along with anxiety she states she ran out of her tramadol and her Ativan yesterday. She had went to [facility] today and they refused to fill them she states she came here she was to be admitted to the [facility] refer medication evaluation she denies SI denies HI has not psychotic Related Data Home Medications ?Medication ?Instructions ?Recorded ?Confirmed acetaminophen 500 mg tablet 1,500 mg PO Q6H PRN Moderate Pain 05/14/24 10/08/24 (Scale Score 5-6) dexlansoprazole 60 mg 60 mg PO DAILY PRN Acid Reflux 05/14/24 10/08/24 capsule,biphase delayed release fluticasone propionate 50 2 spray intranasal BID PRN 05/24/24 10/08/24 mcg/actuation nasal allergies spray,suspension albuterol sulfate 90 mcg/actuation 2 puff inhalation Q4H PRN 08/08/24 10/08/24 aerosol inhaler Shortness Of Breath Or Wheezing Previous Rx's ?Medication ?Instructions ?Recorded walker with seat #1 ea 08/25/23 mirtazapine 45 mg tablet 45 mg PO BEDTIME #30 tabs 04/02/24 citalopram 40 mg tablet (Celexa) 40 mg PO QAM #30 tabs 05/20/24 benztropine 1 mg tablet 1 mg PO BID #60 tabs 06/05/24 clozapine 100 mg tablet See Rx Instructions .Route 06/05/24 .COMPLEX #180 tabs clozapine 50 mg tablet 50 mg PO QAM #30 tabs 06/05/24 oxybutynin chloride 15 mg 15 mg PO BEDTIME #90 tabs 06/20/24 tablet,extended release 24 hr cetirizine 10 mg capsule (Zyrtec) 10 mg PO DAILY PRN allergy 08/14/24 symptoms #14 caps budesonide-formoterol HFA 160 2 puff inhalation BID #10.2 grams 08/18/24 mcg-4.5 mcg/actuation aerosol inhaler (Symbicort) meloxicam 7.5 mg tablet 7.5 mg PO BID PRN INFLAMATION AND 08/22/24 PAIN. #60 tabs gabapentin 300 mg capsule 300 mg PO Q8H chronic pain 30 days 09/04/24 #90 caps meclizine 50 mg tablet 50 mg PO BID PRN dizziness #20 tabs 09/11/24 tramadol 50 mg tablet 50 mg PO BID PRN pain 30 days #60 09/16/24 tabs montelukast 10 mg tablet See Rx Instructions .Route 09/18/24 .COMPLEX #90 tabs lorazepam 0.5 mg tablet 0.5 mg PO BID anxiety #12 tabs 10/08/24 Allergies Allergy/AdvReac Type Severity Reaction Status Date / Time ibuprofen Allergy Mild ALGY-Rash Verified 10/08/24 09:43 Review of Systems Const: Denies: fever(s), chills, body aches or change in appetite ENMT: Denies: throat pain or dental pain Card: Denies: chest pain Resp: Denies: dyspnea GI: Denies: abdominal pain, nausea, vomiting or diarrhea Musc: Denies: neck pain or back pain Skin/Breast: Denies: rash Neuro: Denies: headache(s) [facility] PFSH: Medical History Encounter for chronic pain management Tramadol; Legacy patient on this from Dr. 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 Prediabetes Chronic bronchitis with COPD (chronic obstructive pulmonary disease) Mixed hyperlipidemia Psychiatric care Osteoarthritis (arthritis due to wear and tear of joints) Chronic pain disorder Right shoulder, bilateral lower extremities Obesity (BMI 30.0-34.9) GERD (gastroesophageal reflux disease) Surgical History Status post bilateral salpingo-oophorectomy (BSO) S/P laparoscopic assisted vaginal hysterectomy (LAVH) Family History Other CAD (coronary artery disease) Hypertension Social History Smoking and tobacco/nicotine status: current every day tobacco/nicotine user cigarettes Packs smoked per day: 0.5 Alcohol intake: never Substance/Drug Use: former Date of last use: 2012 Former substance use details: meth; hx of IV use Household members: none Marital status: Number of children: 2 Highest education level completed: High School Graduate Current occupational status: disabled 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; Do you think of yourself as: Straight/Heterosexual Female Reproductive History: Para: 2 Physical Exam Const: COMMON NORMALS: no acute distress, patient oriented x3 and healthy appearing HENMT: COMMON NORMALS: normocephalic and atraumatic HEAD & SCALP: normocephalic and atraumatic Eye: COMMON NORMALS: conjunctivae normal CONJUNCTIVA: Yes conjunctivae normal Neck/C-Spine: COMMON NORMALS: full ROM and supple Chest: COMMONS NORMALS: normal inspection of the chest Resp: COMMON NORMALS: normal respiratory effort Cardio: COMMON NORMALS: regular rate, regular rhythm and No murmurs present (Cardio) RATE: regular rate RHYTHM: regular rhythm Extremity: COMMON NORMALS: normal to inspection and full ROM Neuro: COMMON NORMALS: patient oriented x3, moves all extremities and no focal motor deficits Psych: COMMON NORMALS: mental status grossly normal, Normal thought process present and cooperative THOUGHT PROCESS: Normal thought process present Skin: COMMON NORMALS: no rashes or lesions noted and no wounds GENERAL SKIN EXAM: no rashes or lesions noted Course Vital Signs: Vital signs: Vital Signs Temperature 97.9 F 10/15/24 11:32 Pulse Rate 93 10/15/24 11:32 Respiratory Rate 18 10/15/24 11:32 Blood Pressure 118/82 10/15/24 11:32 Pulse Oximetry 98 10/15/24 11:32 Oxygen Delivery Me thod Room Air 10/15/24 11:32 MDM - Psych Medical Decision Making Patient presents here with anxiety she is requesting refills of her Ativan and tramadol informed her I would not able to refill those I did speak to Dr. Parker she is not having any SI or HI we will discharge her over the crisis center. Medical Records I reviewed the patient's medical records. No radiology studies performed this visit Discharge Plan Discharge Patient Disposition: Home Clinical Impression: Anxiety, Chronic pain disorder Condition: Stable Prescriptions: No Action (DME) walker with seat See Rx Instructions .Route .MEDSUPPLY Qty: 1 0RF Rx Instructions: As directed mirtazapine 45 mg tablet 45 mg PO BEDTIME Qty: 30 11RF gabapentin 300 mg capsule 300 mg PO Q8H 30 Days Qty: 90 3RF acetaminophen 500 mg tablet 1,500 mg PO Q6H PRN (Reason: Moderate Pain (Scale Score 5-6)) dexlansoprazole 60 mg capsule,biphase delayed releas 60 mg PO DAILY PRN (Reason: Acid Reflux) citalopram [Celexa] 40 mg tablet 40 mg PO QAM Qty: 30 11RF clozapine 100 mg tablet See Rx Instructions .ROUTE .COMPLEX Qty: 180 11RF Rx Instructions: Take 2 tablets in the AM and 4 tablets in PM. clozapine 50 mg tablet 50 mg PO QAM Qty: 30 11RF Rx Instructions: Take one tablet in the morning with 200 mg dose of clozapine. benztropine 1 mg tablet 1 mg PO BID Qty: 60 11RF Zyrtec 10 mg capsule 10 mg PO DAILY PRN (Reason: allergy symptoms) Qty: 14 0RF oxybutynin chloride 15 mg tablet extended release 24hr 15 mg PO BEDTIME Qty: 90 1RF budesonide-formoterol [Symbicort] 160-4.5 mcg/actuation HFA aerosol inhaler 2 puff inhalation BID Qty: 10.2 2RF meloxicam 7.5 mg tablet 7.5 mg PO BID PRN (Reason: INFLAMATION AND PAIN.) Qty: 60 2RF tramadol 50 mg tablet 50 mg PO BID PRN (Reason: pain) 30 Days Qty: 60 0RF Rx Instructions: refill on or after 30 days montelukast 10 mg tablet See Rx Instructions .ROUTE .COMPLEX Qty: 90 1RF Dose Instruction: TAKE 1 TABLET BY MOUTH EVERY MORNING Rx Instructions: TAKE 1 TABLET BY MOUTH EVERY MORNING lorazepam 0.5 mg tablet 0.5 mg PO BID Qty: 12 0RF albuterol sulfate 90 mcg/actuation HFA aerosol inhaler 2 puff inhalation Q4H PRN (Reason: Shortness Of Breath Or Wheezing) fluticasone propionate 50 mcg/actuation spray,suspension 2 spray intranasal BID PRN (Reason: allergies) meclizine 50 mg tablet 50 mg PO BID PRN (Reason: dizziness) Qty: 20 0RF Discharge Orders: Discharge ED (Routine); Ordered 10/15/24 Ordered By: Kade Smith Referrals: Princess Glaser MD [Primary Care Provider] - 4-7 days Discharge Diet: Advance as tolerated Discharge Activity: Resume usual activity Patient Instructions: Anxiety (ED), Pain Management Print Language: Sammarinese Coding Level of Care Code ED 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
== END 2024-10-15 12:13 | disposition home or self-care (01) ==
PROVIDERS: Emergency Provider Emergency Medicine; PCP Family Medicine
DX: F41.9 Anxiety disorder, unspecified (principal); G89.29 Other chronic pain; F17.210 Nicotine dependence, cigarettes, uncomplicated; J44.9 Chronic obstructive pulmonary disease, unspecified; E78.2 Mixed hyperlipidemia
CPT/HCPCS: 99281

== ENCOUNTER 2024-10-28 12:29 | Emergency (ER) | payer MEDICARE, MEDICAID, SELFPAY ==
[2024-10-15 11:27] VITALS: BP 132/88; BMI 31.9
--- NOTE | 2024-10-28 12:48 | W.ED.DIZZY ---
HPI - Dizziness General: Chief Complaint: Dizziness Stated Complaint: dizzy Time Seen by Provider: 10/28/24 12:31 Source: patient Mode of arrival: EMS Limitations: no limitations History of Present Illness: HPI Narrative: Patient is a 59-year-old female who is extremely well known to our emergency department here with complaint of dizziness. This is apparently an ongoing issue for patient and he reportedly takes meclizine at home as needed.Patient states that this began she felt like the room was spinning. Patient denies syncope or any near syncopal events. She immediately tells me she wants to be admitted to the hospital and thinks she is going to . During the entirety of history taking and physical exam patient has sudden, brief jerking motions. MD elicited complaint: dizziness, lightheadedness and vertigo Onset (ago): month(s) Timing: intermittent Severity: mild Description: room spinning and lightheadedness History of similar symptoms: Yes Exacerbating factors: nothing Relieving factors: other (meclizine) Associated symptoms: Reports no associated symptoms; Denies chest pain (Slight right-sided chest pain), chills, headache(s), nausea, syncope or vomiting Associated neuro symptoms: Reports no associated symptoms; Deny confusion or numbness in extremities Stroke scale total: 0 Related Data Home Medications ?Medication ?Instructions ?Recorded ?Confirmed acetaminophen 500 mg tablet 1,500 mg PO Q6H PRN Moderate Pain 05/14/24 10/28/24 (Scale Score 5-6) dexlansoprazole 60 mg 60 mg PO DAILY PRN Acid Reflux 05/14/24 10/28/24 capsule,biphase delayed release fluticasone propionate 50 2 spray intranasal BID PRN 05/24/24 10/28/24 mcg/actuation nasal allergies spray,suspension albuterol sulfate 90 mcg/actuation 2 puff inhalation Q4H PRN 08/08/24 10/28/24 aerosol inhaler Shortness Of Breath Or Wheezing clozapine 50 mg tablet 50 mg PO DAILY 10/28/24 10/28/24 lorazepam 0.5 mg tablet 0.5 mg PO DAILY 10/28/24 10/28/24 lorazepam 1 mg tablet 1 mg PO BID 10/28/24 10/28/24 montelukast 10 mg tablet 10 mg PO QAM 10/28/24 10/28/24 Previous Rx's ?Medication ?Instructions ?Recorded mirtazapine 45 mg tablet 45 mg PO BEDTIME #30 tabs 04/02/24 citalopram 40 mg tablet (Celexa) 40 mg PO QAM #30 tabs 05/20/24 benztropine 1 mg tablet 1 mg PO BID #60 tabs 06/05/24 oxybutynin chloride 15 mg 15 mg PO BEDTIME #90 tabs 06/20/24 tablet,extended release 24 hr cetirizine 10 mg capsule (Zyrtec) 10 mg PO DAILY PRN allergy 08/14/24 symptoms #14 caps budesonide-formoterol HFA 160 2 puff inhalation BID #10.2 grams 08/18/24 mcg-4.5 mcg/actuation aerosol inhaler (Symbicort) meloxicam 7.5 mg tablet 7.5 mg PO BID PRN INFLAMATION AND 08/22/24 PAIN. #60 tabs gabapentin 300 mg capsule 300 mg PO Q8H chronic pain 30 days 09/04/24 #90 caps clozapine 100 mg tablet See Rx Instructions .Route 10/17/24 .COMPLEX #210 tabs tramadol 50 mg tablet 50 mg PO BID PRN pain 30 days #60 10/22/24 tabs Allergies Allergy/AdvReac Type Severity Reaction Status Date / Time ibuprofen Allergy Mild ALGY-Rash Verified 10/28/24 13:00 Review of Systems Const: Denies: fever(s), chills, body aches or night sweats Eyes: Denies: change in vision or blurry vision ENMT: Denies: throat pain Card: Reports: lightheadedness; Denies: chest pain (Slight right-sided chest pain), edema, syncope or pre-syncope Resp: Denies: dyspnea or pain on inspiration GI: Denies: abdominal pain, nausea, vomiting, hematemesis, diarrhea or constipation : Denies: flank pain Musc: Denies: neck pain, back pain, extremity pain or extremity swelling Skin/Breast: Denies: rash Neuro: Reports: dizziness and vertigo; Denies: headache(s), numbness in extremities, weakness in extremities, sensory changes, lack of coordination, frequent falls, confusion, behavioral changes, difficulty communicating thoughts or seizure-like activity PFSH ED PFSH: Medical History Encounter for chronic pain management Tramadol; Legacy patient on this from Dr. 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 Prediabetes Chronic bronchitis with COPD (chronic obstructive pulmonary disease) Mixed hyperlipidemia Psychiatric care Osteoarthritis (arthritis due to wear and tear of joints) Chronic pain disorder Right shoulder, bilateral lower extremities Obesity (BMI 30.0-34.9) GERD (gastroesophageal reflux disease) Surgical History Status post bilateral salpingo-oophorectomy (BSO) S/P laparoscopic assisted vaginal hysterectomy (LAVH) Family History Other CAD (coronary artery disease) Hypertension Social History Smoking and tobacco/nicotine status: current every day tobacco/nicotine user cigarettes Packs smoked per day: 0.5 Alcohol intake: never Substance/Drug Use: former Date of last use: 2012 Former substance use details: meth; hx of IV use Household members: none Marital status: Number of children: 2 Highest education level completed: High School Graduate Current occupational status: disabled 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; Do 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 think of yourself as: Straight/Heterosexual Female Reproductive History: Para: 2 Physical Exam Const: COMMON NORMALS: no acute distress, patient oriented x3, no limitations, alert and well nourished GENERAL APPEARANCE: cooperative NUTRITIONAL APPEARANCE: obese ORIENTATION/CONSCIOUSNESS: Yes awake, Yes oriented to person, Yes oriented to place and Yes oriented to time OTHER: During the entirety of history taking and physical exam patient has sudden, brief jerking movements-these will stop if you get her distracted HENMT: COMMON NORMALS: normocephalic, atraumatic, external ears normal and Normal external nose present HEAD & SCALP: normocephalic and atraumatic NOSE: Normal external nose present EXTERNAL EAR: Yes external ears normal Eye: COMMON NORMALS: Equal, round and reactive pupils present and EOMs intact bilaterally GENERAL EYE: appearance normal, both eyes and all related structures and normal light reflex PUPIL: Yes Equal, round and reactive pupils present DIRECT OPHTHALMOSCOPY: Yes normal light reflex OTHER: no nystagmus Neck/C-Spine: COMMON NORMALS: full ROM, no lymphadenopathy and no meningeal signs Chest: COMMONS NORMALS: normal inspection of the chest and normal palpation of entire chest wall Resp: COMMON NORMALS: normal respiratory effort, No retractions and No use of accessory muscles Cardio: COMMON NORMALS: regular rate and regular rhythm RATE: regular rate RHYTHM: regular rhythm GI: COMMON NORMALS: Normal to inspection, nondistended, normoactive bowel sounds present, Soft to palpation and non-tender PALPATION: Yes Soft to palpation : COMMON NORMALS: Yes no CVA tenderness BLADDER/KIDNEY EXAM: Yes no CVA tenderness Back/Pelvis: COMMON NORMALS: no CVA tenderness, thoracic and lumbar spine normal to inspection and no thoracic nor lumbar tenderness Extremity: COMMON NORMALS: normal to inspection GENERAL: Yes normal exam except as noted Neuro: [place] COMA SCALE: document GCS findings [place] coma scale eye opening: Spontaneous [place] coma scale verbal response: Orientated [place] coma scale motor response: [place] commands [place] coma scale total score: 15 COMMON NORMALS: patient oriented x3, CN's II-XII intact bilaterally, moves all extremities, no focal motor deficits, no sensory deficits noted and gait normal SENSORIUM/ORIENTATION: Yes alert, Yes oriented to person, Yes oriented to place and Yes oriented to time MENINGEAL SIGNS: Yes no meningeal signs Skin: COMMON NORMALS: no rashes or lesions noted GENERAL SKIN EXAM: no rashes or lesions noted Course Vital Signs: Vital signs: Vital Signs Temperature 99.0 F 10/28/24 12:53 Pulse Rate 95 10/28/24 13:30 Respiratory Rate 20 H 10/28/24 13:30 Blood Pressure 112/73 10/28/24 13:30 Pulse Oximetry 93 10/28/24 13:30 Oxygen Delivery Me thod Room Air 10/28/24 13:30 [facility] - Dizziness Medical Decision Making Patient's vitals have been stable. Her blood work overall is unremarkable. CXR is negative. Her EKG showing no concerning arrhythmias. Patient was given PO meclizine and IV ativan as she was very anxious upon arrival. Patient was ambulatory here without any difficulty whatsoever. She did not require any assistance for ambulation. Upon re-assessment patient tells me she feels much better and that the ativan helped . She reportedly forgot to take her ativan dose this morning. At this time all of patient's symptoms that were present at time of arrival have resolved. She is cleared for discharge. Medical Records I reviewed the patient's medical records. Lab Data I reviewed the patient's lab results. 10/28/24 13:09 10/28/24 13:09 Radiology Impressions Chest X-Ray 10/28/24 12:58 IMPRESSION: 1. Negative chest. Laboratory Results WBC 8.54 10^3/uL (3.29-11.43) 10/28/24 13:09 RBC 4.55 10^6/uL (3.85-5.65) 10/28/24 13:09 Hgb 13.50 g/dL (11.27-16.99) 10/28/24 13:09 Hct 42.2 % (36-47) 10/28/24 13:09 MCV 92.7 fl (85-98) 10/28/24 13:09 MCH 29.7 pg (27-33) 10/28/24 13:09 MCHC 32.0 g/dL (30-55) 10/28/24 13:09 RDW 14.5 % (12.1-15.1) 10/28/24 13:09 Plt Count 277 10^3/cmm (157-399) 10/28/24 13:09 MPV 9.4 fL (7.4-10.4) 10/28/24 13:09 Neut % (Auto) 75.1 % 10/28/24 13:09 Lymph % (Auto) 16.5 % 10/28/24 13:09 [place] % (Auto) 7.4 % 10/28/24 13:09 Eos % (Auto) 0.1 % 10/28/24 13:09 Baso % (Auto) 0.4 % 10/28/24 13:09 Neut # (Auto) 6.42 10^3/uL (1.8-7.7) 10/28/24 13:09 Lymph # (Auto) 1.4 10^3/uL (0.8-4.8) 10/28/24 13:09 [place] # (Auto) 0.6 10^3/uL (0.2-0.9) 10/28/24 13:09 Eos # (Auto) 0.0 10^3/uL (0.0-0.8) 10/28/24 13:09 Baso # (Auto) 0.0 10^3/uL (0.0-0.1) 10/28/24 13:09 Nucleated RBC % (auto) 0 % 10/28/24 13:09 Nucleated RBCs # 0.0 /100WBC 10/28/24 13:09 Sodium 140 mmol/L (136-145) 10/28/24 13:09 Potassium 4.1 mmol/L (3.5-5.1) 10/28/24 13:09 Chloride 104 mmol/L (98-107) 10/28/24 13:09 Carbon Dioxide 26 mmol/L (22-29) 10/28/24 13:09 Anion Gap 14.1 (5-19) 10/28/24 13:09 BUN 10 mg/dL (8-23) 10/28/24 13:09 Creatinine 0.6 mg/dL (0.5-0.9) 10/28/24 13:09 GFR Calculation 102.0 mL/min (90-130) 10/28/24 13:09 Glucose 120 mg/dL (65-115) H 10/28/24 13:09 Calculated Osmolality 290 mOsm/kg (285-295) 10/28/24 13:09 Calcium 9.2 mg/dL (8.5-10.5) 10/28/24 13:09 Total Bilirubin 0.2 mg/dL (0.15-1.2) 10/28/24 13:09 AST 17 U/L (0-32) 10/28/24 13:09 ALT 22 U/L (0-33) 10/28/24 13:09 Alkaline Phosphatase 111 U/L (35-105) H 10/28/24 13:09 Total Protein 6.9 g/dL (6.6-8.7) 10/28/24 13:09 Albumin 4.1 g/dL (3.5-5.2) 10/28/24 13:09 Globulin 2.8 g/dL (1.3-4.6) 10/28/24 13:09 Amorphous Sediment Not Reportable 10/28/24 13:45 All radiology interpretation(s) finalized by discharge Discharge Plan Discharge Patient Disposition: Home Clinical Impression: Anxiety disorder, Dizziness Condition: Stable Prescriptions: No Action mirtazapine 45 mg tablet 45 mg PO BEDTIME Qty: 30 11RF gabapentin 300 mg capsule 300 mg PO Q8H 30 Days Qty: 90 3RF clozapine 100 mg tablet See Rx Instructions .ROUTE .COMPLEX Qty: 210 11RF Rx Instructions: Take 3 tablets in the AM and 4 tablets in PM. acetaminophen 500 mg tablet 1,500 mg PO Q6H PRN (Reason: Moderate Pain (Scale Score 5-6)) dexlansoprazole 60 mg capsule,biphase delayed releas 60 mg PO DAILY PRN (Reason: Acid Reflux) citalopram [Celexa] 40 mg tablet 40 mg PO QAM Qty: 30 11RF benztropine 1 mg tablet 1 mg PO BID Qty: 60 11RF Zyrtec 10 mg capsule 10 mg PO DAILY PRN (Reason: allergy symptoms) Qty: 14 0RF oxybutynin chloride 15 mg tablet extended release 24hr 15 mg PO BEDTIME Qty: 90 1RF budesonide-formoterol [Symbicort] 160-4.5 mcg/actuation HFA aerosol inhaler 2 puff inhalation BID Qty: 10.2 2RF meloxicam 7.5 mg tablet 7.5 mg PO BID PRN (Reason: INFLAMATION AND PAIN.) Qty: 60 2RF tramadol 50 mg tablet 50 mg PO BID PRN (Reason: pain) 30 Days Qty: 60 3RF Rx Instructions: refill on or after 30 days albuterol sulfate 90 mcg/actuation HFA aerosol inhaler 2 puff inhalation Q4H PRN (Reason: Shortness Of Breath Or Wheezing) clozapine 50 mg tablet 50 mg PO DAILY Rx Instructions: TAKE 1TAB BY MOUTH IN THE MORNING WITH 200 MG DOSE OF CLOZAPINE. montelukast 10 mg tablet 10 mg PO QAM Rx Instructions: TAKE 1 TABLET BY MOUTH EVERY MORNING lorazepam 0.5 mg tablet 0.5 mg PO DAILY lorazepam 1 mg tablet 1 mg PO BID fluticasone propionate 50 mcg/actuation spray,suspension 2 spray intranasal BID PRN (Reason: allergies) Discharge Orders: Discharge ED (Routine); Ordered 10/28/24 Ordered By: Zayda Villavicencio Referrals: Princess Glaser MD [Primary Care Provider] - Activity Restrictions/Additional Instructions: Please continue to follow-up with your primary care provider. 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
[2024-10-28 12:53] VITALS: BP 94/67; PULSE 104; TEMP 37.2; O2SAT 95; BMI 30.3
--- NOTE | 2024-10-28 12:58 | XR_ITS ---
WS: [id number] Exam: XR chest 1V portable [id number] Date/Time of Exam: 10/28/2024 1:02 PM Reason For Exam: dizzy Comparison 09/21/2023. Lungs are fully expanded and clear. Normal cardiomediastinal silhouette. No pleural effusions. Bony structures are intact. XR/XR chest 1V portable [id number] IMPRESSION: 1. Negative chest.
--- NOTE | 2024-10-28 13:07 | ECG_ITS ---
[email or web address] Date: 2024-10-28 Pat Name: Hilda Nolan Department: Room: Gender: Female Product/Device Technologist: : [id number] Requested By: Zayda Villavicencio Order Number: [id number] Kimberly MD: Vicki Greenwood M.D. Measurements Intervals [place] Rate: 103 P: 59 CT: 141 QRS: 19 QRSD: 77 T: 50 QT: 356 QTc: 467 Interpretive Statements SINUS TACHYCARDIA POSSIBLE LEFT ATRIAL ENLARGEMENT [-0.1mV P-WAVE IN V1/V2] LOW QRS VOLTAGE IN PRECORDIAL LEADS [QRS DEFLECTION < 1.0 mV IN CHEST LEADS] POSSIBLE RIGHT VENTRICULAR CONDUCTION DELAY [RSR (QR) IN V1/V2] ABNORMAL RHYTHM ECG Compared to ECG 09/11/2024 09:41:23 Low QRS voltage now present Sinus rhythm no longer present Electronically Signed On 10-28-2024 18:56:28 CDT by Vicki Greenwood M.D. [email or web address]
[2024-10-28] MEDS: meclizine 25 mg tablet 50 MG PO (13:12)
[2024-10-28 13:16] LABS: Basophils % 0.4 %; Eosinophils % 0.1 %; Hematocrit 42.2 % (36-47); Lymphocytes # 1.4 10^3/uL (0.8-4.8); Lymphocytes % 16.5 %; Mean Corpuscular Hemoglobin 29.7 pg (27-33); Mean Corpuscular Volume 92.7 fl (85-98); Mean Platelet Volume 9.4 fL (7.4-10.4); Monocytes # 0.6 10^3/uL (0.2-0.9); Monocytes % 7.4 %; Neutrophils # 6.42 10^3/uL (1.8-7.7); Neutrophils % 75.1 %; Nucleated Red Blood Cells % 0 %; Platelet Count 277 10^3/cmm (157-399); Red Blood Count 4.55 10^6/uL (3.85-5.65); Red Cell Distribution Width 14.5 % (12.1-15.1); White Blood Count 8.54 10^3/uL (3.29-11.43)
[2024-10-28] MEDS: sodium chloride 0.9% 1,000 ML 999 ML IV (13:17)
[2024-10-28] MEDS: LORazepam 2 mg/mL INJ 1 mL 0.5 MG IVP (13:18)
[2024-10-28 13:24] VITALS: BP 108/50; PULSE 99; RESP 20; O2SAT 93
[2024-10-28 13:28] VITALS: BP 94/72; PULSE 96; O2SAT 92
[2024-10-28 13:30] VITALS: BP 112/73; PULSE 95; RESP 20; O2SAT 93
[2024-10-28 13:31] LABS: Alanine Aminotransferase 22 U/L (0-33); Albumin Level 4.1 g/dL (3.5-5.2); Alkaline Phosphatase 111 U/L (35-105); Anion Gap 14.1 (5-19); Aspartate Amino Transferase 17 U/L (0-32); Blood Urea Nitrogen 10 mg/dL (8-23); Calcium 9.2 mg/dL (8.5-10.5); Carbon Dioxide 26 mmol/L (22-29); Chloride 104 mmol/L (98-107); Creatinine Clr Calc Pharmacy 94.7253; Globulin 2.8 g/dL (1.3-4.6); Glucose 120 mg/dL (65-115); Osmolality Calculated 290 mOsm/kg (285-295); Potassium 4.1 mmol/L (3.5-5.1); Sodium 140 mmol/L (136-145); Total Bilirubin 0.2 mg/dL (0.15-1.2); Total Protein 6.9 g/dL (6.6-8.7)
[2024-10-28 14:00] VITALS: BP 110/75; PULSE 94; O2SAT 95
[2024-10-28 14:02] LABS: Bacteria Urine None Seen /hpf; Hyaline Casts Urine 14.47 /lpf; RBC Urine 0-2 /hpf (0-2)
[2024-10-28 14:05] LABS: Urine Color Yellow (Yellow)
[2024-10-28 14:06] LABS: Add Urine Microscopic? YES; Bilirubin Urine 1+ (Negative); Blood Urine Neg (Negative); Glucose Urine UA Norm (Normal); Ketones Urine Negative (Negative); Leukocyte Esterase Urine Trace (Negative); Nitrate Urine Negative (Negative); Protein Urine 1+ (Negative); Specific Gravity, Urine 1.025 (1.005-1.030); UA Slide Review UA Slide Review Perf; Urine Appearance Slightly Cloudy (CLEAR); Urobilinogen Urine Norm (Negative); pH Urine 5 (5-7)
[2024-10-28 14:07] LABS: Add Urine Culture? No
[2024-10-28 14:32] VITALS: BP 110/75; PULSE 94; O2SAT 94
== END 2024-10-28 14:33 | disposition home or self-care (01) ==
PROVIDERS: Emergency Provider Physician Assistant; PCP Family Medicine
DX: F41.9 Anxiety disorder, unspecified (principal); R42 Dizziness and giddiness; F17.210 Nicotine dependence, cigarettes, uncomplicated; J44.9 Chronic obstructive pulmonary disease, unspecified
CPT/HCPCS: 36415; 71045; 80053; 81001; 85025; 93005; 96361; 96374; 99285; J2060; J7030; J8597

== ENCOUNTER 2024-11-02 14:41 | Emergency (ER) | payer MEDICARE, MEDICAID, SELFPAY ==
[2024-10-15 11:27] VITALS: BP 132/88; BMI 31.9
[2024-11-02 14:45] VITALS: BP 100/72; PULSE 95; RESP 16; TEMP 36.6; O2SAT 97; BMI 30.3
--- NOTE | 2024-11-02 16:30 | W.ED.FALL ---
HPI - Fall General: Chief Complaint: Fall Stated Complaint: mult falls Time Seen by Provider: 11/02/24 16:07 Source: patient Mode of arrival: EMS Limitations: no limitations History of Present Illness: Patient is a 59-year-old female well-known to the emergency department here presenting by ambulance for falls. Seen here recently, 10/28, for the same thing and associated dizziness. Patient states she lives at home alone, is concerned that 3 times today she has fallen and has no explanation. She does note that she gets dizzy and lightheaded prior to these falls, noting she injured both of her knees with 1 such fall. Has not hit her head, has been able to get up by herself each time, none of these falls have been witnessed. Currently asymptomatic, however is notably anxious of which she has been seen for anxiety multiple times in the past. Also is directly requesting prednisone, states she has never seen her regular doctor for this issue. She is requesting to leave AMA soon after examination completion. MD complaint: fall Fall witnessed: no Place fall occurred: home Loss of consciousness: None Prolonged down time: unclear Associated symptoms-after fall: Reports lightheadedness; Denies abdominal pain, chest pain, headache(s) or neck pain Related Data Home Medications ?Medication ?Instructions ?Recorded ?Confirmed acetaminophen 500 mg tablet 1,500 mg PO Q6H PRN Moderate Pain 05/14/24 11/02/24 (Scale Score 5-6) dexlansoprazole 60 mg 60 mg PO DAILY PRN Acid Reflux 05/14/24 11/02/24 capsule,biphase delayed release fluticasone propionate 50 2 spray intranasal BID PRN 05/24/24 11/02/24 mcg/actuation nasal allergies spray,suspension albuterol sulfate 90 mcg/actuation 2 puff inhalation Q4H PRN 08/08/24 11/02/24 aerosol inhaler Shortness Of Breath Or Wheezing clozapine 50 mg tablet 50 mg PO DAILY 10/28/24 11/02/24 lorazepam 0.5 mg tablet 0.5 mg PO DAILY 10/28/24 11/02/24 lorazepam 1 mg tablet 1 mg PO BID 10/28/24 11/02/24 montelukast 10 mg tablet 10 mg PO QAM 10/28/24 11/02/24 Previous Rx's ?Medication ?Instructions ?Recorded mirtazapine 45 mg tablet 45 mg PO BEDTIME #30 tabs 04/02/24 citalopram 40 mg tablet (Celexa) 40 mg PO QAM #30 tabs 05/20/24 benztropine 1 mg tablet 1 mg PO BID #60 tabs 06/05/24 oxybutynin chloride 15 mg 15 mg PO BEDTIME #90 tabs 06/20/24 tablet,extended release 24 hr cetirizine 10 mg capsule (Zyrtec) 10 mg PO DAILY PRN allergy 08/14/24 symptoms #14 caps budesonide-formoterol HFA 160 2 puff inhalation BID #10.2 grams 08/18/24 mcg-4.5 mcg/actuation aerosol inhaler (Symbicort) meloxicam 7.5 mg tablet 7.5 mg PO BID PRN INFLAMATION AND 08/22/24 PAIN. #60 tabs gabapentin 300 mg capsule 300 mg PO Q8H chronic pain 30 days 09/04/24 #90 caps clozapine 100 mg tablet See Rx Instructions .Route 10/17/24 .COMPLEX #210 tabs tramadol 50 mg tablet 50 mg PO BID PRN pain 30 days #60 10/22/24 tabs Allergies Allergy/AdvReac Type Severity Reaction Status Date / Time ibuprofen Allergy Mild ALGY-Rash Verified 10/28/24 13:00 Review of Systems General: Reports: 10 or more systems reviewed and unremarkable except in HPI and below Const: Reports: other (Falls); Denies: fever(s), chills or fatigue Eyes: Denies: change in vision ENMT: Denies: throat pain, ear or mastoid pain or nasal discharge Card: Reports: lightheadedness; Denies: chest pain, palpitations or swelling of feet/ankles Resp: Denies: dyspnea, productive cough or wheezing GI: Denies: abdominal pain, nausea, vomiting, diarrhea or constipation : Denies: flank pain, difficulty voiding, dysuria or urinary frequency Musc: Denies: neck pain, back pain or joint pain Skin/Breast: Denies: rash Neuro: Reports: dizziness; Denies: headache(s), numbness in extremities or weakness in extremities PFSH ED PFSH: Medical History Encounter for chronic pain management Tramadol; Legacy patient on this from Dr. 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 Prediabetes Chronic bronchitis with COPD (chronic obstructive pulmonary disease) Mixed hyperlipidemia Psychiatric care Osteoarthritis (arthritis due to wear and tear of joints) Chronic pain disorder Right shoulder, bilateral lower extremities Obesity (BMI 30.0-34.9) GERD (gastroesophageal reflux disease) Surgical History Status post bilateral salpingo-oophorectomy (BSO) S/P laparoscopic assisted vaginal hysterectomy (LAVH) Family History Other CAD (coronary artery disease) Hypertension Social History Smoking and tobacco/nicotine status: current every day tobacco/nicotine user cigarettes Packs smoked per day: 0.5 Alcohol intake: never Substance/Drug Use: former Date of last use: 2012 Former substance use details: meth; hx of IV use Household members: none Marital status: Number of children: 2 Highest education level completed: High School Graduate Current occupational status: disabled 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; Do you think of yourself as: Straight/Heterosexual Female Reproductive History: Para: 2 Physical Exam Const: COMMON NORMALS: no acute distress, patient oriented x3 and no limitations GENERAL APPEARANCE: well developed and anxious ORIENTATION/CONSCIOUSNESS: Yes awake, Yes oriented to person, Yes oriented to place and Yes oriented to time HENMT: COMMON NORMALS: normocephalic, atraumatic and hearing grossly normal bilaterally HEAD & SCALP: normocephalic and atraumatic Eye: COMMON NORMALS: Equal, round and reactive pupils present, EOMs intact bilaterally and conjunctivae normal CONJUNCTIVA: Yes conjunctivae normal PUPIL: Yes Equal, round and reactive pupils present Neck/C-Spine: COMMON NORMALS: full ROM, supple and no JVD Resp: COMMON NORMALS: normal respiratory effort, No retractions, No use of accessory muscles and clear to auscultation bilaterally AUSCULTATION: clear to auscultation bilaterally Cardio: COMMON NORMALS: no JVD, regular rate, regular rhythm, No clicks present (Cardio), No murmurs present (Cardio) and No rub (Cardio) RATE: regular rate RHYTHM: regular rhythm Extremity: COMMON NORMALS: normal to inspection, full ROM and capillary refill normal Neuro: COMMON NORMALS: patient oriented x3, moves all extremities, no focal motor deficits and no sensory deficits noted SENSORIUM/ORIENTATION: Yes oriented to person, Yes oriented to place and Yes oriented to time Skin: COMMON NORMALS: no rashes or lesions noted GENERAL SKIN EXAM: no rashes or lesions noted Course Vital Signs: Vital signs: Vital Signs Temperature 97.9 F 11/02/24 14:45 Pulse Rate 95 11/02/24 14:45 Respiratory Rate 16 11/02/24 14:45 Blood Pressure 100/72 11/02/24 14:45 Pulse Oximetry 97 11/02/24 14:45 Oxygen Delivery Me thod Room Air 11/02/24 14:45 MDM - Fall Medical Decision Making Despite requesting that she stay for workup for her falls, she is stating she wants to leave AMA as she only came here for prednisone. I told her that without a proper workup that this would not do any good, she is requesting to leave despite this. Told her to follow-up with regular doctor and return with any new or worsening. AMA form signed at this time. No radiology studies performed this visit Discharge Plan Discharge Patient Disposition: Left Against Medical Advice Clinical Impression: Left against medical advice Condition: Stable Prescriptions: No Action mirtazapine 45 mg tablet 45 mg PO BEDTIME Qty: 30 11RF gabapentin 300 mg capsule 300 mg PO Q8H 30 Days Qty: 90 3RF clozapine 100 mg tablet See Rx Instructions .ROUTE .COMPLEX Qty: 210 11RF Rx Instructions: Take 3 tablets in the AM and 4 tablets in PM. acetaminophen 500 mg tablet 1,500 mg PO Q6H PRN (Reason: Moderate Pain (Scale Score 5-6)) dexlansoprazole 60 mg capsule,biphase delayed releas 60 mg PO DAILY PRN (Reason: Acid Reflux) citalopram [Celexa] 40 mg tablet 40 mg PO QAM Qty: 30 11RF benztropine 1 mg tablet 1 mg PO BID Qty: 60 11RF Zyrtec 10 mg capsule 10 mg PO DAILY PRN (Reason: allergy symptoms) Qty: 14 0RF oxybutynin chloride 15 mg tablet extended release 24hr 15 mg PO BEDTIME Qty: 90 1RF budesonide-formoterol [Symbicort] 160-4.5 mcg/actuation HFA aerosol inhaler 2 puff inhalation BID Qty: 10.2 2RF meloxicam 7.5 mg tablet 7.5 mg PO BID PRN (Reason: INFLAMATION AND PAIN.) Qty: 60 2RF tramadol 50 mg tablet 50 mg PO BID PRN (Reason: pain) 30 Days Qty: 60 3RF Rx Instructions: refill on or after 30 days albuterol sulfate 90 mcg/actuation HFA aerosol inhaler 2 puff inhalation Q4H PRN (Reason: Shortness Of Breath Or Wheezing) clozapine 50 mg tablet 50 mg PO DAILY Rx Instructions: TAKE 1TAB BY MOUTH IN THE MORNING WITH 200 MG DOSE OF CLOZAPINE. montelukast 10 mg tablet 10 mg PO QAM Rx Instructions: TAKE 1 TABLET BY MOUTH EVERY MORNING lorazepam 0.5 mg tablet 0.5 mg PO DAILY lorazepam 1 mg tablet 1 mg PO BID fluticasone propionate 50 mcg/actuation spray,suspension 2 spray intranasal BID PRN (Reason: allergies) Referrals: Princess Glaser MD [Primary Care Provider] - Patient Instructions: Opioid Safety, Pain Management Print Language: Romanian Coding Level of Care Code ED Specialty Development Consultant for 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
== END 2024-11-02 16:35 | disposition left against medical advice (07) ==
PROVIDERS: Emergency Provider Physician Assistant; PCP Family Medicine
DX: Z53.21 Procedure and treatment not carried out due to patient leaving prior to being seen by health care provider (principal); F17.210 Nicotine dependence, cigarettes, uncomplicated; J44.9 Chronic obstructive pulmonary disease, unspecified; E78.2 Mixed hyperlipidemia
CPT/HCPCS: 99281

== ENCOUNTER 2024-11-03 09:31 | Emergency (ER) | payer MEDICARE, MEDICAID, SELFPAY ==
[2024-10-15 11:27] VITALS: BP 132/88; BMI 31.9
[2024-11-03 09:39] VITALS: BP 117/69; PULSE 108; RESP 17; TEMP 36.6; O2SAT 96; BMI 30.3
--- NOTE | 2024-11-03 11:46 | W.ED.WEAKNES ---
HPI - Weakness General: Chief complaint: Weakness Stated complaint: weakness - falls Time Seen by Provider: 11/03/24 11:17 History of Present Illness: 59-year-old female presents to the emergency room with a complaint of generalized weakness. She states when she stands she feels very weak and lightheaded. She has not had any full loss of consciousness. She also made a comment that she ran out of her Ativan recently. She was seen yesterday after arriving by ambulance reporting that she had fallen 3 times she gets dizzy and lightheaded. She ended up leaving AGAINST MEDICAL ADVICE. She told the midlevel who she seen yesterday that she was simply here for her prednisone and did not want undergo the full evaluation so she left AMA Associated symptoms: Denies chest pain, chills, dysuria or fever(s) Review of Systems Const: Denies: fever(s) or chills Card: Denies: chest pain Resp: Denies: dyspnea GI: Denies: abdominal pain : Denies: dysuria, urinary frequency or urinary urgency Musc: Denies: neck pain or back pain Skin/Breast: Denies: rash PFSH ED PFSH: Medical History Encounter for chronic pain management Tramadol; Legacy patient on this from Dr. 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 Prediabetes Chronic bronchitis with COPD (chronic obstructive pulmonary disease) Mixed hyperlipidemia Psychiatric care Osteoarthritis (arthritis due to wear and tear of joints) Chronic pain disorder Right shoulder, bilateral lower extremities Obesity (BMI 30.0-34.9) GERD (gastroesophageal reflux disease) Surgical History Status post bilateral salpingo-oophorectomy (BSO) S/P laparoscopic assisted vaginal hysterectomy (LAVH) Family History Other CAD (coronary artery disease) Hypertension Social History Smoking and tobacco/nicotine status: current every day tobacco/nicotine user cigarettes Packs smoked per day: 0.5 Alcohol intake: never Substance/Drug Use: former Date of last use: 2012 Former substance use details: meth; hx of IV use Household members: none Marital status: Number of children: 2 Highest education level completed: High School Graduate Current occupational status: disabled 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; Do you think of yourself as: Straight/Heterosexual Female Reproductive History: Para: 2 Physical Exam Const: COMMON NORMALS: no acute distress GENERAL APPEARANCE: cooperative and comfortable ORIENTATION/CONSCIOUSNESS: Yes awake, Yes oriented to person, Yes oriented to place and Yes oriented to time HENMT: COMMON NORMALS: normocephalic, atraumatic and hearing grossly normal bilaterally HEAD & SCALP: normocephalic and atraumatic Resp: COMMON NORMALS: normal respiratory effort, No retractions, No use of accessory muscles and clear to auscultation bilaterally AUSCULTATION: clear to auscultation bilaterally Cardio: COMMON NORMALS: regular rate, regular rhythm and No murmurs present (Cardio) RATE: regular rate RHYTHM: regular rhythm GI: COMMON NORMALS: Soft to palpation and No hepatosplenomegaly present AUSCULTATION: Yes normoactive bowel sounds PALPATION: Yes Soft to palpation, No Tenderness to palpation present (GI), No Guarding due to palpation present (GI) and Yes No hepatosplenomegaly present Extremity: COMMON NORMALS: normal to inspection, capillary refill normal, no clubbing, cyanosis or edema, no calf tenderness and no pedal edema Neuro: SENSORIUM/ORIENTATION: Yes oriented to person, Yes oriented to place and Yes oriented to time OTHER: No focal neurologic deficits noted. No lateralizing symptoms. No facial asymmetry good strength in bilaterally in extremities Skin: COMMON NORMALS: no rashes or lesions noted GENERAL SKIN EXAM: no rashes or lesions noted Course Vital Signs: Vital signs: Vital Signs Temperature 97.8 F 11/03/24 09:39 Pulse Rate 98 11/03/24 13:57 Respiratory Rate 17 11/03/24 09:39 Blood Pressure 140/91 11/03/24 13:57 Pulse Oximetry 96 11/03/24 09:39 Oxygen Delivery Me thod Room Air 11/03/24 09:39 MDM - Weakness Medical Decision Making Patient did have some orthostasis on her first set of vitals however on follow-up vitals the orthostasis has improved. She is no longer symptomatic. She is very still denies refilling her Ativan advised her she would need to talk to psychiatry about that that we would not be able to refill it for chronic use I did give her some hydroxyzine to use as needed until she sees psychiatry. She was able to ambulate without difficulty. Repeat exam prior to discharge she has no focal neurologic deficits. Medical Records I reviewed the patient's medical records. Lab Data I reviewed the patient's lab results. 11/03/24 11:20 11/03/24 11:20 Laboratory Results WBC 8.35 10^3/uL (3.29-11.43) 11/03/24 11:20 RBC 4.41 10^6/uL (3.85-5.65) 11/03/24 11:20 Hgb 13.00 g/dL (11.27-16.99) 11/03/24 11:20 Hct 40.8 % (36-47) 11/03/24 11:20 MCV 92.5 fl (85-98) 11/03/24 11:20 MCH 29.5 pg (27-33) 11/03/24 11:20 MCHC 31.9 g/dL (30-55) 11/03/24 11:20 RDW 14.7 % (12.1-15.1) 11/03/24 11:20 Plt Count 278 10^3/cmm (157-399) 11/03/24 11:20 MPV 9.3 fL (7.4-10.4) 11/03/24 11:20 Neut % (Auto) 71.9 % 11/03/24 11:20 Lymph % (Auto) 18.8 % 11/03/24 11:20 [place] % (Auto) 8.7 % 11/03/24 11:20 Eos % (Auto) 0.0 % 11/03/24 11:20 Baso % (Auto) 0.1 % 11/03/24 11:20 Neut # (Auto) 6.00 10^3/uL (1.8-7.7) 11/03/24 11:20 Lymph # (Auto) 1.6 10^3/uL (0.8-4.8) 11/03/24 11:20 [place] # (Auto) 0.7 10^3/uL (0.2-0.9) 11/03/24 11:20 Eos # (Auto) 0.0 10^3/uL (0.0-0.8) 11/03/24 11:20 Baso # (Auto) 0.0 10^3/uL (0.0-0.1) 11/03/24 11:20 Nucleated RBC % (auto) 0 % 11/03/24 11:20 Nucleated RBCs # 0.0 /100WBC 11/03/24 11:20 Sodium 139 mmol/L (136-145) 11/03/24 11:20 Potassium 4.5 mmol/L (3.5-5.1) 11/03/24 11:20 Chloride 103 mmol/L (98-107) 11/03/24 11:20 Carbon Dioxide 24 mmol/L (22-29) 11/03/24 11:20 Anion Gap 16.5 (5-19) 11/03/24 11:20 BUN 8 mg/dL (8-23) 11/03/24 11:20 Creatinine 0.7 mg/dL (0.5-0.9) 11/03/24 11:20 GFR Calculation 85.4 mL/min (90-130) L 11/03/24 11:20 Glucose 105 mg/dL (65-115) 11/03/24 11:20 Calculated Osmolality 287 mOsm/kg (285-295) 11/03/24 11:20 Calcium 9.3 mg/dL (8.5-10.5) 11/03/24 11:20 Total Bilirubin 0.2 mg/dL (0.15-1.2) 11/03/24 11:20 AST 16 U/L (0-32) 11/03/24 11:20 ALT 17 U/L (0-33) 11/03/24 11:20 Alkaline Phosphatase 112 U/L (35-105) H 11/03/24 11:20 Total Protein 7.2 g/dL (6.6-8.7) 11/03/24 11:20 Albumin 4.2 g/dL (3.5-5.2) 11/03/24 11:20 Globulin 3.0 g/dL (1.3-4.6) 11/03/24 11:20 Urine Color Yellow (Yellow) 11/03/24 11:34 Urine Appearance Slightly cloudy (CLEAR) 11/03/24 11:34 Urine pH 6 (5-7) 11/03/24 11:34 Ur Specific [place] 1.015 (1.005-1.030) 11/03/24 11:34 Urine Protein Trace (Negative) 11/03/24 11:34 Urine Glucose (UA) Norm (Normal) 11/03/24 11:34 Urine Ketones Negative (Negative) 11/03/24 11:34 Urine Blood Neg (Negative) 11/03/24 11:34 Urine Nitrate Negative (Negative) 11/03/24 11:34 Urine Bilirubin 1+ (Negative) H 11/03/24 11:34 Urine Urobilinogen 1 mg/dL (Negative) H 11/03/24 11:34 Ur Leukocyte Esterase 2+ (Negative) H 11/03/24 11:34 Urine RBC 0-2 /hpf (0-2) 11/03/24 11:34 Urine WBC 11-20 /hpf (0-5) H 11/03/24 11:34 Ur Squamous Epith Cells 11-20 /hpf (0-5) H 11/03/24 11:34 Amorphous Sediment Not Reportable 11/03/24 11:34 Urine Bacteria None seen /hpf (NONE) 11/03/24 11:34 Hyaline Casts 0.40 /lpf 11/03/24 11:34 All radiology interpretation(s) finalized by discharge Discharge Plan Discharge Patient Disposition: Home Clinical Impression: Chronic pain disorder, Orthostasis Anxiety disorder Qualifiers: Anxiety disorder type: other anxiety disorder Qualified Code(s): F41.8 - Other specified anxiety disorders Condition: Stable Prescriptions: New hydroxyzine HCl 25 mg tablet 25 mg PO Q8H PRN (Reason: anxiety) Qty: 10 0RF No Action mirtazapine 45 mg tablet 45 mg PO BEDTIME Qty: 30 11RF gabapentin 300 mg capsule 300 mg PO Q8H 30 Days Qty: 90 3RF clozapine 100 mg tablet See Rx Instructions .ROUTE .COMPLEX Qty: 210 11RF Rx Instructions: Take 3 tablets in the AM and 4 tablets in PM. acetaminophen 500 mg tablet 1,500 mg PO Q6H PRN (Reason: Moderate Pain (Scale Score 5-6)) dexlansoprazole 60 mg capsule,biphase delayed releas 60 mg PO DAILY PRN (Reason: Acid Reflux) citalopram [Celexa] 40 mg tablet 40 mg PO QAM Qty: 30 11RF benztropine 1 mg tablet 1 mg PO BID Qty: 60 11RF oxybutynin chloride 15 mg tablet extended release 24hr 15 mg PO BEDTIME Qty: 90 1RF budesonide-formoterol [Symbicort] 160-4.5 mcg/actuation HFA aerosol inhaler 2 puff inhalation BID Qty: 10.2 2RF meloxicam 7.5 mg tablet 7.5 mg PO BID PRN (Reason: INFLAMATION AND PAIN.) Qty: 60 2RF tramadol 50 mg tablet 50 mg PO BID PRN (Reason: pain) 30 Days Qty: 60 3RF albuterol sulfate 90 mcg/actuation HFA aerosol inhaler 2 puff inhalation Q4H PRN (Reason: Shortness Of Breath Or Wheezing) montelukast 10 mg tablet 10 mg PO QAM fluticasone propionate 50 mcg/actuation spray,suspension 2 spray intranasal BID PRN (Reason: allergies) diphenhydramine HCl [Benadryl] 25 mg Capsule 25 mg PO DAILY PRN (Reason: allergies) Discharge Orders: Discharge ED (Routine); Ordered 11/03/24 Ordered By: Cesar Neil Referrals: Princess Glaser MD [Primary Care Provider] - Discharge Diet: Usual diet Discharge Activity: Increase activity as tolerated Patient Instructions: Opioid Safety, Pain Management Activity Restrictions/Additional Instructions: Thank you for choosing [facility] for your healthcare needs today. It is very important that you follow up as instructed or that you return to the Emergency Department should you have concerns or if your condition changes or worsens in any way. You were seen today complaining of feeling weak and having muscle aches. You did have mild orthostatic hypotension (decrease in blood pressure when you stood). This improved after IV fluids. You are given hydroxyzine to use for anxiety instead of your Ativan. Follow-up with your primary psychiatrist to review treatment options for your anxiety and refill Ativan at their discretion. Print Language: Ukrainian Coding Level of Care Code ED Server Administrator for Chg Fwd Related Data Home Medications ?Medication ?Instructions ?Recorded ?Confirmed acetaminophen 500 mg tablet 1,500 mg PO Q6H PRN Moderate Pain 05/14/24 11/03/24 (Scale Score 5-6) dexlansoprazole 60 mg 60 mg PO DAILY PRN Acid Reflux 05/14/24 11/03/24 capsule,biphase delayed release fluticasone propionate 50 2 spray intranasal BID PRN 05/24/24 11/03/24 mcg/actuation nasal allergies spray,suspension albuterol sulfate 90 mcg/actuation 2 puff inhalation Q4H PRN 08/08/24 11/03/24 aerosol inhaler Shortness Of Breath Or Wheezing montelukast 10 mg tablet 10 mg PO QAM 10/28/24 11/03/24 diphenhydramine HCl 25 mg capsule 25 mg PO DAILY PRN allergies 11/03/24 11/03/24 (Benadryl) Previous Rx's ?Medication ?Instructions ?Recorded mirtazapine 45 mg tablet 45 mg PO BEDTIME #30 tabs 04/02/24 citalopram 40 mg tablet (Celexa) 40 mg PO QAM #30 tabs 05/20/24 benztropine 1 mg tablet 1 mg PO BID #60 tabs 06/05/24 oxybutynin chloride 15 mg 15 mg PO BEDTIME #90 tabs 06/20/24 tablet,extended release 24 hr budesonide-formoterol HFA 160 2 puff inhalation BID #10.2 grams 08/18/24 mcg-4.5 mcg/actuation aerosol inhaler (Symbicort) meloxicam 7.5 mg tablet 7.5 mg PO BID PRN INFLAMATION AND 08/22/24 PAIN. #60 tabs gabapentin 300 mg capsule 300 mg PO Q8H chronic pain 30 days 09/04/24 #90 caps clozapine 100 mg tablet See Rx Instructions .Route 10/17/24 .COMPLEX #210 tabs tramadol 50 mg tablet 50 mg PO BID PRN pain 30 days #60 10/22/24 tabs hydroxyzine HCl 25 mg tablet 25 mg PO Q8H PRN anxiety #10 tabs 11/03/24 Allergies Allergy/AdvReac Type Severity Reaction Status Date / Time ibuprofen Allergy Mild ALGY-Rash Verified 10/28/24 13:00
[2024-11-03 11:47] LABS: Basophils % 0.1 %; Hematocrit 40.8 % (36-47); Lymphocytes # 1.6 10^3/uL (0.8-4.8); Lymphocytes % 18.8 %; Mean Corpuscular HGB Conc 31.9 g/dL (30-55); Mean Corpuscular Hemoglobin 29.5 pg (27-33); Mean Corpuscular Volume 92.5 fl (85-98); Mean Platelet Volume 9.3 fL (7.4-10.4); Monocytes # 0.7 10^3/uL (0.2-0.9); Monocytes % 8.7 %; Neutrophils % 71.9 %; Nucleated Red Blood Cells % 0 %; Platelet Count 278 10^3/cmm (157-399); Red Blood Count 4.41 10^6/uL (3.85-5.65); Red Cell Distribution Width 14.7 % (12.1-15.1); White Blood Count 8.35 10^3/uL (3.29-11.43)
[2024-11-03 11:48] LABS: Bacteria Urine None Seen /hpf; RBC Urine 0-2 /hpf (0-2)
--- NOTE | 2024-11-03 11:48 | ECG_ITS ---
[facility] Test Date: 2024-11-03 Pat Name: Hilda Nolan Department: Room: Gender: Female Principal Database Developer: : 1965 Requested By: Cesar Causey Order Number: [id number] Kimberly MD: Vicki Greenwood M.D. Measurements Intervals [place] Rate: 98 P: 61 [place]: 144 QRS: 33 QRSD: 94 T: 50 QT: 359 QTc: 459 Interpretive Statements SINUS RHYTHM Compared to ECG 10/28/2024 13:07:33 Sinus tachycardia no longer present Electronically Signed On 11-03-2024 21:31:42 CDT by Vicki Greenwood M.D. [email or web address]
[2024-11-03 11:51] LABS: Add Urine Microscopic? YES; Blood Urine Neg (Negative); Glucose Urine UA Norm (Normal); Ketones Urine Negative (Negative); Nitrate Urine Negative (Negative); Protein Urine Trace (Negative); Specific Gravity, Urine 1.015 (1.005-1.030); Urine Appearance Slightly Cloudy (CLEAR); Urine Color Yellow (Yellow); pH Urine 6 (5-7)
[2024-11-03 11:52] LABS: Add Urine Culture? No; Bilirubin Urine 1+ (Negative); Leukocyte Esterase Urine 2+ (Negative); Urobilinogen Urine 1 mg/dL (Negative)
[2024-11-03 12:02] VITALS: BP 108/80; BP 122/85; BP 95/53; PULSE 101; PULSE 98; PULSE 99
[2024-11-03 12:03] LABS: Alanine Aminotransferase 17 U/L (0-33); Albumin Level 4.2 g/dL (3.5-5.2); Alkaline Phosphatase 112 U/L (35-105); Anion Gap 16.5 (5-19); Aspartate Amino Transferase 16 U/L (0-32); Blood Urea Nitrogen 8 mg/dL (8-23); Calcium 9.3 mg/dL (8.5-10.5); Carbon Dioxide 24 mmol/L (22-29); Chloride 103 mmol/L (98-107); Creatinine Clr Calc Pharmacy 81.1931; Glomerular Filtration Rate 85.4 mL/min (90-130); Glucose 105 mg/dL (65-115); Osmolality Calculated 287 mOsm/kg (285-295); Potassium 4.5 mmol/L (3.5-5.1); Sodium 139 mmol/L (136-145); Total Bilirubin 0.2 mg/dL (0.15-1.2); Total Protein 7.2 g/dL (6.6-8.7)
[2024-11-03] MEDS: sodium chloride 0.9% 1,000 ML 999 ML IV (12:53)
[2024-11-03 13:57] VITALS: BP 121/82; BP 129/75; BP 140/91; PULSE 97; PULSE 98
[2024-11-03 14:17] VITALS: BP 165/98; PULSE 96; O2SAT 95
== END 2024-11-03 14:18 | disposition home or self-care (01) ==
PROVIDERS: Emergency Medicine; Emergency Provider Family Medicine; PCP Family Medicine
DX: I95.1 Orthostatic hypotension (principal); G89.29 Other chronic pain; F41.8 Other specified anxiety disorders; F17.210 Nicotine dependence, cigarettes, uncomplicated; J44.9 Chronic obstructive pulmonary disease, unspecified; E78.2 Mixed hyperlipidemia
CPT/HCPCS: 36415; 80053; 81001; 85025; 93005; 96360; 99284; J7030

== ENCOUNTER → 2024-11-06 13:16 | Outpatient (BNVA) | payer MEDICARE, OTHER, SELFPAY ==
[2024-10-15 11:27] VITALS: BP 132/88; BMI 31.9
== END ==
PROVIDERS: PCP Family Medicine; Visit Provider Family Medicine
DX: Z09 Encounter for follow-up examination after completed treatment for conditions other than malignant neoplasm (principal); R73.03 Prediabetes; M54.50 Low back pain, unspecified; G89.29 Other chronic pain; R26.89 Other abnormalities of gait and mobility; F17.218 Nicotine dependence, cigarettes, with other nicotine-induced disorders
CPT/HCPCS: 80061; 82607; 84439; 84443; 86592; 87522

== ENCOUNTER 2024-11-25 09:52 | Emergency (ER) | payer MEDICARE, MEDICAID, SELFPAY ==
[2024-10-15 11:27] VITALS: BP 132/88; BMI 31.9
[2024-11-25 09:54] VITALS: BP 108/64; PULSE 105; RESP 16; TEMP 37.1; O2SAT 92; BMI 32.5
--- NOTE | 2024-11-25 10:11 | W.ED.ANXIETY ---
HPI - Anxiety General: Chief Complaint: Anxiety Stated Complaint: Anxiety Time Seen by Provider: 11/25/24 10:01 Source: patient Mode of arrival: EMS Limitations: no limitations History of Present Illness: Patient is a 59-year-old female well known to our emergency department presenting with complaints of mental and physical anguish and physical pains and anxiety . She has seen PCP and psychiatrist last month. Upcoming appointment with psychiatry later this month. They recently decreased her Ativan from 1 mg to 0.5 mg tablets with directions for once daily. She reports that she is taking them twice daily and now she is out. She denies any chest pain, palpitations, difficulty breathing. Hilda has no acute complaints today. She is not suicidal or homicidal. MD complaint: anxiety Onset (ago): year(s) Severity: moderate Quality: constant History of similar episodes: Yes Provoking factors: medication change Relieving factors: medication Exacerbating factors: nothing Associated symptoms: Deny chest pain, chills, fever(s), headache(s) or palpitations Related Data Home Medications ?Medication ?Instructions ?Recorded ?Confirmed acetaminophen 500 mg tablet 1,500 mg PO Q6H PRN Moderate Pain 05/14/24 11/06/24 (Scale Score 5-6) montelukast 10 mg tablet 10 mg PO QAM 10/28/24 11/06/24 diphenhydramine HCl 25 mg capsule 25 mg PO DAILY PRN allergies 11/03/24 11/06/24 (Benadryl) lorazepam 0.5 mg tablet 0.5 mg PO DAILY 11/06/24 11/06/24 Previous Rx's ?Medication ?Instructions ?Recorded mirtazapine 45 mg tablet 45 mg PO BEDTIME #30 tabs 04/02/24 citalopram 40 mg tablet (Celexa) 40 mg PO QAM #30 tabs 05/20/24 benztropine 1 mg tablet 1 mg PO BID #60 tabs 06/05/24 oxybutynin chloride 15 mg 15 mg PO BEDTIME #90 tabs 06/20/24 tablet,extended release 24 hr gabapentin 300 mg capsule 300 mg PO Q8H chronic pain 30 days 09/04/24 #90 caps clozapine 100 mg tablet See Rx Instructions .Route 10/17/24 .COMPLEX #210 tabs tramadol 50 mg tablet 50 mg PO BID PRN pain 30 days #60 10/22/24 tabs hydroxyzine HCl 25 mg tablet 25 mg PO Q8H PRN anxiety #10 tabs 11/03/24 cyanocobalamin (vitamin B-12) 5,000 mcg sublingual DAILY #60 mL 11/07/24 5,000 mcg/mL sublingual drops rosuvastatin 20 mg tablet 20 mg PO DAILY cholesterol #90 tabs 11/07/24 meloxicam 7.5 mg tablet 7.5 mg PO BID PRN INFLAMATION AND 11/16/24 PAIN. #60 tabs albuterol sulfate 90 mcg/actuation 2 puff inhalation Q4H PRN 11/21/24 aerosol inhaler Shortness Of Breath Or Wheezing #8.5 grams budesonide-formoterol HFA 160 2 puff inhalation BID #10.2 grams 11/21/24 mcg-4.5 mcg/actuation aerosol inhaler (Symbicort) dexlansoprazole 60 mg 60 mg PO DAILY PRN Acid Reflux #90 11/21/24 capsule,biphase delayed release caps fluticasone propionate 50 2 spray intranasal BID PRN 11/21/24 mcg/actuation nasal allergies #48 grams spray,suspension Allergies Allergy/AdvReac Type Severity Reaction Status Date / Time ibuprofen Allergy Mild ALGY-Rash Verified 11/25/24 10:05 Review of Systems Const: Denies: fever(s) or chills Card: Denies: chest pain or palpitations Resp: Denies: dyspnea GI: Denies: abdominal pain Neuro: Denies: headache(s) Psych: Reports: anxiety; Denies: visual hallucinations, auditory hallucinations, suicidal ideation or homicidal ideation REPLACED BY [facility] PFSH: Medical History Vitamin B12 deficiency starting B12 injections 11.07.24 Balance disorder Chronic low back pain Encounter for chronic pain management Tramadol; Legacy patient on this from Dr. 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 Prediabetes Chronic bronchitis with COPD (chronic obstructive pulmonary disease) Mixed hyperlipidemia Psychiatric care Osteoarthritis (arthritis due to wear and tear of joints) Chronic pain disorder Right shoulder, bilateral lower extremities Obesity (BMI 30.0-34.9) GERD (gastroesophageal reflux disease) Surgical History Status post bilateral salpingo-oophorectomy (BSO) S/P laparoscopic assisted vaginal hysterectomy (LAVH) Family History Other CAD (coronary artery disease) Hypertension Social History Smoking and tobacco/nicotine status: current every day tobacco/nicotine user cigarettes Packs smoked per day: 0.5 Alcohol intake: never Substance/Drug Use: former Date of last use: 2012 Former substance use details: meth; hx of IV use Household members: none Marital status: Number of children: 2 Highest education level completed: High School Graduate Current occupational status: disabled 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; Do you think of yourself as: Straight/Heterosexual Female Reproductive History: Para: 2 Physical Exam Const: COMMON NORMALS: no acute distress, patient oriented x3, no limitations, alert and well nourished GENERAL APPEARANCE: cooperative and anxious ORIENTATION/CONSCIOUSNESS: Yes awake, Yes oriented to person, Yes oriented to place and Yes oriented to time HENMT: COMMON NORMALS: normocephalic and atraumatic HEAD & SCALP: normocephalic and atraumatic Eye: COMMON NORMALS: Equal, round and reactive pupils present, EOMs intact bilaterally and conjunctivae normal CONJUNCTIVA: Yes conjunctivae normal PUPIL: Yes Equal, round and reactive pupils present Neck/C-Spine: COMMON NORMALS: full ROM Chest: COMMONS NORMALS: normal inspection of the chest Resp: COMMON NORMALS: normal respiratory effort and clear to auscultation bilaterally AUSCULTATION: clear to auscultation bilaterally Cardio: COMMON NORMALS: regular rate, regular rhythm, S1 normal heart sound present and S2 normal heart sound present RATE: regular rate RHYTHM: regular rhythm HEART SOUNDS: S1 normal heart sound present and S2 normal heart sound present Neuro: [place] COMA SCALE: document GCS findings [place] coma scale eye opening: Spontaneous [place] coma scale verbal response: Orientated [place] coma scale motor response: Obey commands [place] coma scale total score: 15 COMMON NORMALS: patient oriented x3, moves all extremities, no focal motor deficits and no sensory deficits noted SENSORIUM/ORIENTATION: Yes alert, Yes oriented to person, Yes oriented to place and Yes oriented to time Psych: COMMON NORMALS: mental status grossly normal, Normal thought process present, cooperative, normal affect, speech normal, activity/motor behavior normal, denies hallucinations, denies homicidal ideation and denies suicidal ideation APPEARANCE: Yes grossly normal ATTITUDE: Yes calm ACTIVITY/MOTOR BEHAVIOR: Yes appropriate eye contact and Yes fidgeting SPEECH: Yes normal speech MOOD & AFFECT: Yes euthymic mood THOUGHT PROCESS: Normal thought process present THOUGHT CONTENT: Yes Normal thought content present ATTENTION/CONCENTRATION: Yes attention grossly intact and Yes concentration grossly intact MEMORY/COGNITION: Yes memory grossly intact and Yes cognition grossly intact INSIGHT: Good insight present (Psych) JUDGEMENT: Good judgement present (Psych) Course Vital Signs: Vital signs: Vital Signs Temperature 98.8 F 11/25/24 09:54 Pulse Rate 105 H 11/25/24 09:54 Respiratory Rate 16 11/25/24 09:54 Blood Pressure 108/64 11/25/24 09:54 Pulse Oximetry 92 11/25/24 09:54 MDM - Anxiety Medical Decision Making Patient has no acute mental or physical complaints at this time. I believe she mainly here today as she ran out of her Ativan early as she was taking it twice a day instead of once daily as prescribed. Told her I am not refilling this from the emergency department today. She can reach out to her primary care provider and/or her psychiatrist. Medical Records I reviewed the patient's medical records. No radiology studies performed this visit Discharge Plan Discharge Patient Disposition: Home Clinical Impression: Anxiety disorder Qualifiers: Anxiety disorder type: other anxiety disorder Qualified Code(s): F41.8 - Other specified anxiety disorders Condition: Stable Prescriptions: No Action mirtazapine 45 mg tablet 45 mg PO BEDTIME Qty: 30 11RF gabapentin 300 mg capsule 300 mg PO Q8H 30 Days Qty: 90 3RF clozapine 100 mg tablet See Rx Instructions .ROUTE .COMPLEX Qty: 210 11RF Rx Instructions: Take 3 tablets in the AM and 4 tablets in PM. acetaminophen 500 mg tablet 1,500 mg PO Q6H PRN (Reason: Moderate Pain (Scale Score 5-6)) citalopram [Celexa] 40 mg tablet 40 mg PO QAM Qty: 30 11RF benztropine 1 mg tablet 1 mg PO BID Qty: 60 11RF lorazepam 0.5 mg tablet 0.5 mg PO DAILY oxybutynin chloride 15 mg tablet extended release 24hr 15 mg PO BEDTIME Qty: 90 1RF tramadol 50 mg tablet 50 mg PO BID PRN (Reason: pain) 30 Days Qty: 60 3RF rosuvastatin 20 mg tablet 20 mg PO DAILY Qty: 90 3RF cyanocobalamin (vitamin B-12) 5,000 mcg/mL drops 5,000 mcg sublingual DAILY Qty: 60 3RF meloxicam 7.5 mg tablet 7.5 mg PO BID PRN (Reason: INFLAMATION AND PAIN.) Qty: 60 2RF budesonide-formoterol [Symbicort] 160-4.5 mcg/actuation HFA aerosol inhaler 2 puff inhalation BID Qty: 10.2 5RF fluticasone propionate 50 mcg/actuation spray,suspension 2 spray intranasal BID PRN (Reason: allergies) Qty: 48 1RF albuterol sulfate 90 mcg/actuation HFA aerosol inhaler 2 puff inhalation Q4H PRN (Reason: Shortness Of Breath Or Wheezing) Qty: 8.5 5RF dexlansoprazole 60 mg capsule,biphase delayed releas 60 mg PO DAILY PRN (Reason: Acid Reflux) Qty: 90 0RF montelukast 10 mg tablet 10 mg PO QAM diphenhydramine HCl [Benadryl] 25 mg Capsule 25 mg PO DAILY PRN (Reason: allergies) hydroxyzine HCl 25 mg tablet 25 mg PO Q8H PRN (Reason: anxiety) Qty: 10 0RF Discharge Orders: Discharge ED (Routine); Ordered 11/25/24 Ordered By: Zayda Villavicencio Referrals: Princess Glaser MD [Primary Care Provider, Family Practice] Activity Restrictions/Additional Instructions: As we discussed you need to follow up with your primary care provider and your psychiatrist for your chronic physical and mental health issues. Please reserve the emergency department for emergent concerns or life-threatening issues. Print Language: Divehi Coding Level of Care Code ED Cambering Machine Operator for 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
[2024-11-25] MEDS: LORazepam 1 mg Tablet PO (10:36)
== END 2024-11-25 10:46 | disposition home or self-care (01) ==
PROVIDERS: Emergency Provider Physician Assistant; PCP Family Medicine
DX: F41.8 Other specified anxiety disorders (principal); F17.210 Nicotine dependence, cigarettes, uncomplicated; J44.9 Chronic obstructive pulmonary disease, unspecified; E78.2 Mixed hyperlipidemia
CPT/HCPCS: 99283; J9999

== ENCOUNTER 2024-11-29 13:27 | Emergency (ER) | payer MEDICARE, MEDICAID, SELFPAY ==
[2024-10-15 11:27] VITALS: BP 132/88; BMI 31.9
[2024-11-29 13:28] VITALS: BP 113/87; PULSE 95; RESP 14; TEMP 36.8; O2SAT 98
[2024-11-29] MEDS: HYDROcodone-acetaminophen 5-325 mg Tablet 1 TAB PO (13:43)
[2024-11-29] MEDS: LORazepam 1 mg Tablet PO ×2 (13:43)
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
[2024-11-29 13:56] VITALS: BP 113/87; PULSE 98; O2SAT 95
== END 2024-11-29 13:57 | disposition home or self-care (01) ==
PROVIDERS: Emergency Provider Physician Assistant; PCP Family Medicine
DX: T22.111A Burn of first degree of right forearm, initial encounter (principal); F41.8 Other specified anxiety disorders; F17.210 Nicotine dependence, cigarettes, uncomplicated; J44.9 Chronic obstructive pulmonary disease, unspecified; X12.XXXA Contact with other hot fluids, initial encounter
CPT/HCPCS: 99283; J9999

== ENCOUNTER 2024-12-04 11:21 | Emergency (ER) | payer MEDICARE, MEDICAID, SELFPAY ==
[2024-10-15 11:27] VITALS: BP 132/88; BMI 31.9
[2024-12-04 11:59] VITALS: BP 105/67; PULSE 100; RESP 18; TEMP 36.6; O2SAT 94; BMI 30.9
--- NOTE | 2024-12-04 12:07 | CTR_ITS ---
PROCEDURE INFORMATION: Exam: CT Lumbar Spine Without Contrast Exam date and time: 12/04/2024 12:46 PM Age: 59 years old Clinical indication: Injury or trauma; Fall; Blunt trauma (contusions or hematomas) TECHNIQUE: Imaging protocol: Computed tomography of the lumbar spine without contrast. Radiation optimization: All CT scans at this facility use at least one of these dose optimization techniques: automated exposure control; mA and/or kV adjustment per patient size (includes targeted exams where dose is matched to clinical indication); or iterative reconstruction. COMPARISON: CR XR lumbar spine 2-3V* [id number] 10/11/2024 10:06 PM RADIATION DOSE METRICS: Total DLP (mGy-cm): 801.93 FINDINGS: Bones/joints: No acute fractures. There is minimal grade 1 anterolisthesis of L3 on L4. Vacuum disc phenomenon and degenerative changes of the endplates are noted at L5-S1 L1-L2: No significant disc bulge or herniation. No severe spinal canal stenosis. No significant neural foraminal narrowing. L2-L3: At L2-L3 there is mild generalized disc bulging without significant spinal stenosis L3-L4: At L3-L4 there is generalized and asymmetric right posterolateral disc bulging and bilateral hypertrophic facet disease producing mild trefoil type central spinal stenosis and [id number] right and mild left neural foraminal stenosis L4-L5: At L4-L5 there is moderate disc bulging with bilateral hypertrophic facet disease and ligamentum flavum hypertrophy producing [id number] trefoil type central spinal stenosis and moderate bilateral neural foraminal stenosis L5-S1: At L5-S1 there is [id number] disc bulging and hypertrophic facet disease producing mild central spinal stenosis and moderate bilateral neural foraminal stenosis. Soft tissues: Unremarkable. CT/CT lumbar spine wo con* [id number] IMPRESSION: 1. [id number] degenerative changes at L3 through S1, as described above 2. No acute fractures
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
--- NOTE | 2024-12-04 13:23 | XR_ITS ---
WS: [id number] Exam: XR knee LT 3V* [id number] Date/Time of Exam: 12/04/2024 1:30 PM Reason For Exam: fall, injury Comparison 05/24/2024. The joint compartments are preserved. No joint effusion. There may be loose joint bodies present. Unremarkable soft tissues. XR/XR knee LT 3V* [id number] IMPRESSION: 1. Possible loose joint bodies identified. Overall, no change since the last .
[2024-12-04] MEDS: bacitracin ointment Pkt 1 EACH TOPICAL (13:55)
[2024-12-04] MEDS: HYDROcodone-acetaminophen 10-325 mg Tablet 1 TAB PO (13:55)
== END 2024-12-04 14:13 | disposition home or self-care (01) ==
PROVIDERS: Emergency Provider Physician Assistant; PCP Family Medicine
DX: R26.2 Difficulty in walking, not elsewhere classified (principal); S80.02XA Contusion of left knee, initial encounter; F17.210 Nicotine dependence, cigarettes, uncomplicated; E78.2 Mixed hyperlipidemia; J44.9 Chronic obstructive pulmonary disease, unspecified; W19.XXXA Unspecified fall, initial encounter
CPT/HCPCS: 72131; 73562; 99284; J9999

== ENCOUNTER 2024-12-05 14:25 | Emergency (ER) | payer MEDICARE, MEDICAID, SELFPAY ==
[2024-10-15 11:27] VITALS: BP 132/88; BMI 31.9
[2024-12-05 14:30] VITALS: BP 109/75; PULSE 94; RESP 16; TEMP 36.7; O2SAT 98; BMI 29.2
--- NOTE | 2024-12-05 15:08 | W.ED.PSYCHS ---
HPI - Psych General: Chief Complaint: Psychiatric Symptoms Stated Complaint: MHE Time Seen by Provider: 12/05/24 15:07 History of Present Illness: 59-year-old female who presents to the emergency room after being seen at [facility]. She denies she is has any homicidal or suicidal ideation. She was at [facility] earlier today and Dr. Slim Denis. They had been prescribing her Ativan 1 mg twice a day and they had recommended that she stopped this. This seems to have her quite concerned. She states she has fallen several times lately and relates that to her medicine although she seems to connect that this will get worse without the Ativan. She adamantly denies any suicidal or homicidal ideation. She alludes to the fact that she feels she needs the Ativan to help deal with past mental traumas. Related Data Home Medications ?Medication ?Instructions ?Recorded ?Confirmed acetaminophen 500 mg tablet 1,500 mg PO Q6H PRN Moderate Pain 05/14/24 12/12/24 (Scale Score 5-6) montelukast 10 mg tablet 10 mg PO QAM 10/28/24 12/12/24 rosuvastatin 20 mg tablet 20 mg PO QPM cholesterol 11/25/24 12/12/24 Previous Rx's ?Medication ?Instructions ?Recorded mirtazapine 45 mg tablet 45 mg PO BEDTIME #30 tabs 04/02/24 citalopram 40 mg tablet (Celexa) 40 mg PO QAM #30 tabs 05/20/24 benztropine 1 mg tablet 1 mg PO BID #60 tabs 06/05/24 gabapentin 300 mg capsule 300 mg PO Q8H chronic pain 30 days 09/04/24 #90 caps clozapine 100 mg tablet See Rx Instructions .Route 10/17/24 .COMPLEX #210 tabs meloxicam 7.5 mg tablet 7.5 mg PO BID PRN INFLAMATION AND 11/16/24 PAIN. #60 tabs albuterol sulfate 90 mcg/actuation 2 puff inhalation Q4H PRN 11/21/24 aerosol inhaler Shortness Of Breath Or Wheezing #8.5 grams budesonide-formoterol HFA 160 2 puff inhalation BID #10.2 grams 11/21/24 mcg-4.5 mcg/actuation aerosol inhaler (Symbicort) dexlansoprazole 60 mg 60 mg PO DAILY PRN Acid Reflux #90 11/21/24 capsule,biphase delayed release caps fluticasone propionate 50 2 spray intranasal BID PRN 11/21/24 mcg/actuation nasal allergies #48 grams spray,suspension mupirocin 2 % topical ointment 1 applic topical BID #15 grams 11/29/24 hydroxyzine HCl 25 mg tablet 25 mg PO Q8H PRN anxiety #30 tabs 12/02/24 lorazepam 1 mg tablet (Ativan) 1 mg buccal Q12H PRN anxiety #7 12/14/24 tabs Allergies Allergy/AdvReac Type Severity Reaction Status Date / Time ibuprofen Allergy Mild ALGY-Rash Verified 12/14/24 20:04 Review of Systems Const: Denies: fever(s) or chills Card: Denies: chest pain Resp: Denies: dyspnea GI: Denies: abdominal pain : Denies: dysuria, urinary frequency or urinary urgency Musc: Denies: neck pain or back pain Skin/Breast: Denies: rash PFSH ED PFSH: Medical History Vitamin B12 deficiency starting B12 orally 12/14 Balance disorder Chronic low back pain Encounter for chronic pain management Tramadol; Legacy patient on this from Dr. 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 Prediabetes Chronic bronchitis with COPD (chronic obstructive pulmonary disease) Mixed hyperlipidemia Psychiatric care Osteoarthritis (arthritis due to wear and tear of joints) Chronic pain disorder Right shoulder, bilateral lower extremities Obesity (BMI 30.0-34.9) GERD (gastroesophageal reflux disease) Surgical History Status post bilateral salpingo-oophorectomy (BSO) S/P laparoscopic assisted vaginal hysterectomy (LAVH) Family History Other CAD (coronary artery disease) Hypertension Social History Smoking and tobacco/nicotine status: current every day tobacco/nicotine user cigarettes Packs smoked per day: 0.5 Alcohol intake: never Substance/Drug Use: former Date of last use: 2012 Former substance use details: meth; hx of IV use Household members: none Marital status: Number of children: 2 Highest education level completed: High School Graduate Current occupational status: disabled 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; Do you think of yourself as: Straight/Heterosexual Female Reproductive History: Para: 2 Physical Exam Const: COMMON NORMALS: no acute distress GENERAL APPEARANCE: cooperative and comfortable ORIENTATION/CONSCIOUSNESS: Yes awake, Yes oriented to person, Yes oriented to place and Yes oriented to time HENMT: COMMON NORMALS: normocephalic, atraumatic and hearing grossly normal bilaterally HEAD & SCALP: normocephalic and atraumatic Resp: COMMON NORMALS: normal respiratory effort, No retractions, No use of accessory muscles and clear to auscultation bilaterally AUSCULTATION: clear to auscultation bilaterally Cardio: COMMON NORMALS: regular rate, regular rhythm and No murmurs present (Cardio) RATE: regular rate RHYTHM: regular rhythm GI: COMMON NORMALS: Soft to palpation and No hepatosplenomegaly present AUSCULTATION: Yes normoactive bowel sounds PALPATION: Yes Soft to palpation, No Tenderness to palpation present (GI), No Guarding due to palpation present (GI) and Yes No hepatosplenomegaly present Extremity: COMMON NORMALS: normal to inspection, capillary refill normal, no clubbing, cyanosis or edema, no calf tenderness and no pedal edema Neuro: SENSORIUM/ORIENTATION: Yes oriented to person, Yes oriented to place and Yes oriented to time Skin: COMMON NORMALS: no rashes or lesions noted GENERAL SKIN EXAM: no rashes or lesions noted Course Vital Signs: Vital signs: Vital Signs Temperature 98.1 F 12/05/24 14:30 Pulse Rate 94 12/05/24 14:30 Respiratory Rate 16 12/05/24 14:30 Blood Pressure 109/75 12/05/24 14:30 Pulse Oximetry 98 12/05/24 14:30 Oxygen Delivery Me thod Room Air 12/05/24 14:30 MDM - Psych Medical Decision Making Patient later decided she wanted to leave. We discharged her from the ED. In summary she was kind of anxious that she has not been given her benzodiazepines that she had in the past by her psychiatrist at [facility]. She is not homicidal or suicidal encouraged her to follow-up with primary care doctor and with a psychiatrist at [facility]. Medical Records I reviewed the patient's medical records. Lab Data I reviewed the patient's lab results. No radiology studies performed this visit Discharge Plan Discharge Patient Disposition: Home Clinical Impression: Anxiety disorder Qualifiers: Anxiety disorder type: other anxiety disorder Qualified Code(s): F41.8 - Other specified anxiety disorders Condition: Stable Prescriptions: No Action mirtazapine 45 mg tablet 45 mg PO BEDTIME Qty: 30 11RF gabapentin 300 mg capsule 300 mg PO Q8H 30 Days Qty: 90 3RF hydroxyzine HCl 25 mg tablet 25 mg PO Q8H PRN (Reason: anxiety) Qty: 30 0RF clozapine 100 mg tablet See Rx Instructions .ROUTE .COMPLEX Qty: 210 11RF Rx Instructions: Take 3 tablets in the AM and 4 tablets in PM. acetaminophen 500 mg tablet 1,500 mg PO Q6H PRN (Reason: Moderate Pain (Scale Score 5-6)) citalopram [Celexa] 40 mg tablet 40 mg PO QAM Qty: 30 11RF benztropine 1 mg tablet 1 mg PO BID Qty: 60 11RF meloxicam 7.5 mg tablet 7.5 mg PO BID PRN (Reason: INFLAMATION AND PAIN.) Qty: 60 2RF budesonide-formoterol [Symbicort] 160-4.5 mcg/actuation HFA aerosol inhaler 2 puff inhalation BID Qty: 10.2 5RF fluticasone propionate 50 mcg/actuation spray,suspension 2 spray intranasal BID PRN (Reason: allergies) Qty: 48 1RF albuterol sulfate 90 mcg/actuation HFA aerosol inhaler 2 puff inhalation Q4H PRN (Reason: Shortness Of Breath Or Wheezing) Qty: 8.5 5RF dexlansoprazole 60 mg capsule,biphase delayed releas 60 mg PO DAILY PRN (Reason: Acid Reflux) Qty: 90 0RF montelukast 10 mg tablet 10 mg PO QAM lorazepam [Ativan] 1 mg tablet 1 mg buccal Q12H MDD 2 PRN (Reason: anxiety) Qty: 7 0RF rosuvastatin 20 mg tablet 20 mg PO QPM mupirocin 2 % ointment 1 applic topical BID Qty: 15 0RF Discharge Orders: Discharge ED (Routine); Ordered 12/05/24 Ordered By: Cesar Neil Referrals: Princess Glaser MD [Primary Care Provider, Family Practice] Discharge Diet: Usual diet Discharge Activity: Resume usual activity Patient Instructions: Opioid Safety, Pain Management Activity Restrictions/Additional Instructions: Thank you for choosing [facility] for your healthcare needs today. It is very important that you follow up as instructed or that you return to the Emergency Department should you have concerns or if your condition changes or worsens in any way. You are seen in the emergency room with concerns about your anxiety. He had just seen [facility] reviewed their records they are recommending against benzodiazepines. Continue current medications and follow-up with [facility] as per their recommendations Print Language: Mexican Coding Level of Care Code ED Harmonica Maker for 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
== END 2024-12-05 17:06 | disposition home or self-care (01) ==
PROVIDERS: Emergency Provider Family Medicine; PCP Family Medicine
DX: F41.8 Other specified anxiety disorders (principal); F17.210 Nicotine dependence, cigarettes, uncomplicated; E78.2 Mixed hyperlipidemia; J44.9 Chronic obstructive pulmonary disease, unspecified
CPT/HCPCS: 85007; 85027; 99281

== ENCOUNTER 2024-12-12 10:04 | Emergency (ER) | payer MEDICARE, MEDICAID, SELFPAY ==
[2024-10-15 11:27] VITALS: BP 132/88; BMI 31.9
[2024-12-12 10:05] VITALS: BP 121/78; PULSE 107; RESP 17; TEMP 37; O2SAT 96; BMI 29.8
--- NOTE | 2024-12-12 10:17 | W.ED.ANXIETY ---
HPI - Anxiety General: Chief Complaint: Anxiety Stated Complaint: Anxiety Time Seen by Provider: 12/12/24 10:05 Source: patient Mode of arrival: ambulatory Limitations: no limitations History of Present Illness: 59-year-old female is very well-known to the ER has a history anxiety states she had an anxiety attack this morning and ran out of her Ativan she feels much improved currently she denies any SI or HI. Associated symptoms: Deny chest pain, chills, fever(s), headache(s), nausea or vomiting Related Data Home Medications ?Medication ?Instructions ?Recorded ?Confirmed acetaminophen 500 mg tablet 1,500 mg PO Q6H PRN Moderate Pain 05/14/24 12/05/24 (Scale Score 5-6) montelukast 10 mg tablet 10 mg PO QAM 10/28/24 12/05/24 diphenhydramine HCl 25 mg capsule 25 mg PO DAILY PRN allergies 11/03/24 12/05/24 (Benadryl) rosuvastatin 20 mg tablet 20 mg PO QPM cholesterol 11/25/24 12/05/24 Previous Rx's ?Medication ?Instructions ?Recorded mirtazapine 45 mg tablet 45 mg PO BEDTIME #30 tabs 04/02/24 citalopram 40 mg tablet (Celexa) 40 mg PO QAM #30 tabs 05/20/24 benztropine 1 mg tablet 1 mg PO BID #60 tabs 06/05/24 oxybutynin chloride 15 mg 15 mg PO BEDTIME #90 tabs 06/20/24 tablet,extended release 24 hr gabapentin 300 mg capsule 300 mg PO Q8H chronic pain 30 days 09/04/24 #90 caps clozapine 100 mg tablet See Rx Instructions .Route 10/17/24 .COMPLEX #210 tabs tramadol 50 mg tablet 50 mg PO BID PRN pain 30 days #60 10/22/24 tabs meloxicam 7.5 mg tablet 7.5 mg PO BID PRN INFLAMATION AND 11/16/24 PAIN. #60 tabs albuterol sulfate 90 mcg/actuation 2 puff inhalation Q4H PRN 11/21/24 aerosol inhaler Shortness Of Breath Or Wheezing #8.5 grams budesonide-formoterol HFA 160 2 puff inhalation BID #10.2 grams 11/21/24 mcg-4.5 mcg/actuation aerosol inhaler (Symbicort) dexlansoprazole 60 mg 60 mg PO DAILY PRN Acid Reflux #90 11/21/24 capsule,biphase delayed release caps fluticasone propionate 50 2 spray intranasal BID PRN 11/21/24 mcg/actuation nasal allergies #48 grams spray,suspension mupirocin 2 % topical ointment 1 applic topical BID #15 grams 11/29/24 hydroxyzine HCl 25 mg tablet 25 mg PO Q8H PRN anxiety #30 tabs 12/02/24 Allergies Allergy/AdvReac Type Severity Reaction Status Date / Time ibuprofen Allergy Mild ALGY-Rash Verified 12/05/24 13:19 Review of Systems Const: Denies: fever(s), chills, body aches or change in appetite ENMT: Denies: throat pain or dental pain Card: Denies: chest pain Resp: Denies: dyspnea GI: Denies: abdominal pain, nausea, vomiting or diarrhea Musc: Denies: neck pain or back pain Skin/Breast: Denies: rash Neuro: Denies: headache(s) Psych: Reports: anxiety PFSH ED PFSH: Medical History Vitamin B12 deficiency starting B12 orally 12/14 Balance disorder Chronic low back pain Encounter for chronic pain management Tramadol; Legacy patient on this from Dr. 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 Prediabetes Chronic bronchitis with COPD (chronic obstructive pulmonary disease) Mixed hyperlipidemia Psychiatric care Osteoarthritis (arthritis due to wear and tear of joints) Chronic pain disorder Right shoulder, bilateral lower extremities Obesity (BMI 30.0-34.9) GERD (gastroesophageal reflux disease) Surgical History Status post bilateral salpingo-oophorectomy (BSO) S/P laparoscopic assisted vaginal hysterectomy (LAVH) Family History Other CAD (coronary artery disease) Hypertension Social History Smoking and tobacco/nicotine status: current every day tobacco/nicotine user cigarettes Packs smoked per day: 0.5 Alcohol intake: never Substance/Drug Use: former Date of last use: 2012 Former substance use details: meth; hx of IV use Household members: none Marital status: Number of children: 2 Highest education level completed: High School Graduate Current occupational status: disabled 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; Do you think of yourself as: Straight/Heterosexual Female Reproductive History: Para: 2 Physical Exam Const: COMMON NORMALS: no acute distress, patient oriented x3 and healthy appearing HENMT: COMMON NORMALS: normocephalic and atraumatic HEAD & SCALP: normocephalic and atraumatic Neck/C-Spine: COMMON NORMALS: full ROM and supple Chest: COMMONS NORMALS: normal inspection of the chest Resp: COMMON NORMALS: normal respiratory effort Cardio: COMMON NORMALS: regular rate RATE: regular rate Extremity: COMMON NORMALS: normal to inspection and full ROM Neuro: COMMON NORMALS: patient oriented x3, moves all extremities and no focal motor deficits Psych: COMMON NORMALS: mental status grossly normal Skin: COMMON NORMALS: no rashes or lesions noted and no wounds GENERAL SKIN EXAM: no rashes or lesions noted Course Vital Signs: Vital signs: Vital Signs Temperature 98.6 F 12/12/24 10:05 Pulse Rate 107 H 12/12/24 10:05 Respiratory Rate 17 12/12/24 10:05 Blood Pressure 121/78 12/12/24 10:05 Pulse Oximetry 96 12/12/24 10:05 Oxygen Delivery Me thod Room Air 12/12/24 10:05 MDM - Anxiety Medical Decision Making Patient presents here with anxiety she has chronic anxiety she is out of her Ativan we will give her 1 dose here informed her she needs a follow-up with her PCP she is not suicidal or homicidal Medical Records I reviewed the patient's medical records. No radiology studies performed this visit Discharge Plan Discharge Patient Disposition: Home Clinical Impression: Acute anxiety Condition: Stable Prescriptions: No Action mirtazapine 45 mg tablet 45 mg PO BEDTIME Qty: 30 11RF gabapentin 300 mg capsule 300 mg PO Q8H 30 Days Qty: 90 3RF hydroxyzine HCl 25 mg tablet 25 mg PO Q8H PRN (Reason: anxiety) Qty: 30 0RF clozapine 100 mg tablet See Rx Instructions .ROUTE .COMPLEX Qty: 210 11RF Rx Instructions: Take 3 tablets in the AM and 4 tablets in PM. acetaminophen 500 mg tablet 1,500 mg PO Q6H PRN (Reason: Moderate Pain (Scale Score 5-6)) citalopram [Celexa] 40 mg tablet 40 mg PO QAM Qty: 30 11RF benztropine 1 mg tablet 1 mg PO BID Qty: 60 11RF oxybutynin chloride 15 mg tablet extended release 24hr 15 mg PO BEDTIME Qty: 90 1RF tramadol 50 mg tablet 50 mg PO BID PRN (Reason: pain) 30 Days Qty: 60 3RF meloxicam 7.5 mg tablet 7.5 mg PO BID PRN (Reason: INFLAMATION AND PAIN.) Qty: 60 2RF budesonide-formoterol [Symbicort] 160-4.5 mcg/actuation HFA aerosol inhaler 2 puff inhalation BID Qty: 10.2 5RF fluticasone propionate 50 mcg/actuation spray,suspension 2 spray intranasal BID PRN (Reason: allergies) Qty: 48 1RF albuterol sulfate 90 mcg/actuation HFA aerosol inhaler 2 puff inhalation Q4H PRN (Reason: Shortness Of Breath Or Wheezing) Qty: 8.5 5RF dexlansoprazole 60 mg capsule,biphase delayed releas 60 mg PO DAILY PRN (Reason: Acid Reflux) Qty: 90 0RF montelukast 10 mg tablet 10 mg PO QAM diphenhydramine HCl [Benadryl] 25 mg Capsule 25 mg PO DAILY PRN (Reason: allergies) rosuvastatin 20 mg tablet 20 mg PO QPM mupirocin 2 % ointment 1 applic topical BID Qty: 15 0RF Discharge Orders: Discharge ED (Routine); Ordered 12/12/24 Ordered By: Kade Smith Referrals: Princess Glaser MD [Primary Care Provider, Family Practice] Discharge Diet: Advance as tolerated Discharge Activity: Resume usual activity Patient Instructions: Anxiety (ED) Print Language: South African Coding Level of Care Code ED Licensed Appraiser for 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
[2024-12-12] MEDS: LORazepam 1 mg Tablet PO (10:25)
== END 2024-12-12 10:40 | disposition home or self-care (01) ==
PROVIDERS: Emergency Provider Emergency Medicine; PCP Family Medicine
DX: F41.9 Anxiety disorder, unspecified (principal); J44.9 Chronic obstructive pulmonary disease, unspecified; E78.2 Mixed hyperlipidemia; Z79.899 Other long term (current) drug therapy; F17.210 Nicotine dependence, cigarettes, uncomplicated
CPT/HCPCS: 99283; J9999

== ENCOUNTER 2024-12-13 00:11 | Emergency (ER) | payer MEDICARE, MEDICAID, SELFPAY ==
[2024-10-15 11:27] VITALS: BP 132/88; BMI 31.9
[2024-12-13 00:17] VITALS: BP 138/79; PULSE 70; RESP 20; TEMP 36.4; O2SAT 94; BMI 31.1
--- NOTE | 2024-12-13 01:16 | W.ED.ANXIETY ---
HPI - Anxiety General: Chief Complaint: Anxiety Stated Complaint: Anxiety Time Seen by Provider: 12/13/24 00:36 History of Present Illness: The patient presents with anxiety and feeling overwhelmed. They report a history of taking Ativan for 10 years to manage their anxiety and mood stability. Recently, their doctor decreased their Ativan dosage from 2 mg daily to 0.5 mg daily, and has now discontinued the medication entirely. The patient states they have been falling ever since he said that and feels the Ativan keeps them balanced and stable. The patient expresses concern about the abrupt discontinuation of their medication, stating they've been adherent to their treatment regimen for a decade, including attending doctor appointments, completing blood work, and taking their prescribed medications. They report experiencing dropsy and falls since the medication change. The patient also mentions having schizophrenia, though it's unclear how this relates to their current presentation. The patient last saw Dr. Denis on the and ran out of their Ativan around the or of the month. They have an upcoming appointment with Dr. Denis on January 16. In the meantime, the patient still has hydroxyzine available and has an appointment with another provider on the (presumably of the current month). The patient expresses worry about their condition and feeling overwhelmed by the situation. Related Data Home Medications ?Medication ?Instructions ?Recorded ?Confirmed acetaminophen 500 mg tablet 1,500 mg PO Q6H PRN Moderate Pain 05/14/24 12/12/24 (Scale Score 5-6) montelukast 10 mg tablet 10 mg PO QAM 10/28/24 12/12/24 diphenhydramine HCl 25 mg capsule 25 mg PO DAILY PRN allergies 11/03/24 12/12/24 (Benadryl) rosuvastatin 20 mg tablet 20 mg PO QPM cholesterol 11/25/24 12/12/24 Previous Rx's ?Medication ?Instructions ?Recorded mirtazapine 45 mg tablet 45 mg PO BEDTIME #30 tabs 04/02/24 citalopram 40 mg tablet (Celexa) 40 mg PO QAM #30 tabs 05/20/24 benztropine 1 mg tablet 1 mg PO BID #60 tabs 06/05/24 oxybutynin chloride 15 mg 15 mg PO BEDTIME #90 tabs 06/20/24 tablet,extended release 24 hr gabapentin 300 mg capsule 300 mg PO Q8H chronic pain 30 days 09/04/24 #90 caps clozapine 100 mg tablet See Rx Instructions .Route 10/17/24 .COMPLEX #210 tabs tramadol 50 mg tablet 50 mg PO BID PRN pain 30 days #60 10/22/24 tabs meloxicam 7.5 mg tablet 7.5 mg PO BID PRN INFLAMATION AND 11/16/24 PAIN. #60 tabs albuterol sulfate 90 mcg/actuation 2 puff inhalation Q4H PRN 11/21/24 aerosol inhaler Shortness Of Breath Or Wheezing #8.5 grams budesonide-formoterol HFA 160 2 puff inhalation BID #10.2 grams 11/21/24 mcg-4.5 mcg/actuation aerosol inhaler (Symbicort) dexlansoprazole 60 mg 60 mg PO DAILY PRN Acid Reflux #90 11/21/24 capsule,biphase delayed release caps fluticasone propionate 50 2 spray intranasal BID PRN 11/21/24 mcg/actuation nasal allergies #48 grams spray,suspension mupirocin 2 % topical ointment 1 applic topical BID #15 grams 11/29/24 hydroxyzine HCl 25 mg tablet 25 mg PO Q8H PRN anxiety #30 tabs 12/02/24 Allergies Allergy/AdvReac Type Severity Reaction Status Date / Time ibuprofen Allergy Mild ALGY-Rash Verified 12/12/24 14:08 Review of Systems General: Reports: 10 or more systems reviewed and unremarkable except in HPI and below PFSH ED PFSH: Medical History Vitamin B12 deficiency starting B12 orally 12/14 Balance disorder Chronic low back pain Encounter for chronic pain management Tramadol; Legacy patient on this from Dr. 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 Prediabetes Chronic bronchitis with COPD (chronic obstructive pulmonary disease) Mixed hyperlipidemia Psychiatric care Osteoarthritis (arthritis due to wear and tear of joints) Chronic pain disorder Right shoulder, bilateral lower extremities Obesity (BMI 30.0-34.9) GERD (gastroesophageal reflux disease) Surgical History Status post bilateral salpingo-oophorectomy (BSO) S/P laparoscopic assisted vaginal hysterectomy (LAVH) Family History Other CAD (coronary artery disease) Hypertension Social History Smoking and tobacco/nicotine status: current every day tobacco/nicotine user cigarettes Packs smoked per day: 0.5 Alcohol intake: never Substance/Drug Use: former Date of last use: 2012 Former substance use details: meth; hx of IV use Household members: none Marital status: Number of children: 2 Highest education level completed: High School Graduate Current occupational status: disabled 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; Do you think of yourself as: Straight/Heterosexual Female Reproductive History: Para: 2 Physical Exam Const: COMMON NORMALS: no acute distress, patient oriented x3, healthy appearing, alert and well nourished HENMT: COMMON NORMALS: normocephalic HEAD & SCALP: normocephalic Eye: COMMON NORMALS: EOMs intact bilaterally Neck/C-Spine: COMMON NORMALS: full ROM and supple Resp: COMMON NORMALS: normal respiratory effort, No retractions and clear to auscultation bilaterally AUSCULTATION: clear to auscultation bilaterally Cardio: COMMON NORMALS: regular rate, regular rhythm, No gallops present (Cardio) and No murmurs present (Cardio) RATE: regular rate RHYTHM: regular rhythm GI: COMMON NORMALS: Soft to palpation and non-tender PALPATION: Yes Soft to palpation Extremity: GENERAL: Yes normal exam except as noted Neuro: COMMON NORMALS: patient oriented x3 SENSORIUM/ORIENTATION: Yes alert Skin: COMMON NORMALS: no rashes or lesions noted GENERAL SKIN EXAM: no rashes or lesions noted Course Vital Signs: Vital signs: Vital Signs Temperature 97.5 F L 12/13/24 00:17 Pulse Rate 70 12/13/24 00:17 Respiratory Rate 20 H 12/13/24 00:17 Blood Pressure 138/79 12/13/24 00:17 Pulse Oximetry 94 12/13/24 00:17 [facility] - Anxiety Medical Decision Making Anxiety and Mood Instability: Patient reports anxiety and feeling overwhelmed, attributing mood stability to Ativan use. Recent changes in Ativan prescription by Dr. Buckley have led to patient distress. Previously on 2 mg daily, dosage was reduced to 0.5 mg daily (30 tablets for 30 days). Patient expresses concern about potential discontinuation of Ativan and its impact on their well-being. History of falls and dropsy reported when not on medication. Patient also mentions a history of schizophrenia. - Continue current Ativan taper as prescribed by Dr. Buckley - Utilize prescribed hydroxyzine for anxiety management - Follow up with Dr. Buckley on January 16 as scheduled - Follow up with another provider (possibly Dr. Persaud) on December 17 - Discuss anxiety management strategies and coping skills with counselor - Monitor for withdrawal symptoms or worsening anxiety during Ativan taper No radiology studies performed this visit Discharge Plan Discharge Patient Disposition: Home Clinical Impression: Anxiety disorder Qualifiers: Anxiety disorder type: other anxiety disorder Qualified Code(s): F41.8 - Other specified anxiety disorders Condition: Stable Prescriptions: No Action mirtazapine 45 mg tablet 45 mg PO BEDTIME Qty: 30 11RF gabapentin 300 mg capsule 300 mg PO Q8H 30 Days Qty: 90 3RF hydroxyzine HCl 25 mg tablet 25 mg PO Q8H PRN (Reason: anxiety) Qty: 30 0RF clozapine 100 mg tablet See Rx Instructions .ROUTE .COMPLEX Qty: 210 11RF Rx Instructions: Take 3 tablets in the AM and 4 tablets in PM. acetaminophen 500 mg tablet 1,500 mg PO Q6H PRN (Reason: Moderate Pain (Scale Score 5-6)) citalopram [Celexa] 40 mg tablet 40 mg PO QAM Qty: 30 11RF benztropine 1 mg tablet 1 mg PO BID Qty: 60 11RF oxybutynin chloride 15 mg tablet extended release 24hr 15 mg PO BEDTIME Qty: 90 1RF tramadol 50 mg tablet 50 mg PO BID PRN (Reason: pain) 30 Days Qty: 60 3RF meloxicam 7.5 mg tablet 7.5 mg PO BID PRN (Reason: INFLAMATION AND PAIN.) Qty: 60 2RF budesonide-formoterol [Symbicort] 160-4.5 mcg/actuation HFA aerosol inhaler 2 puff inhalation BID Qty: 10.2 5RF fluticasone propionate 50 mcg/actuation spray,suspension 2 spray intranasal BID PRN (Reason: allergies) Qty: 48 1RF albuterol sulfate 90 mcg/actuation HFA aerosol inhaler 2 puff inhalation Q4H PRN (Reason: Shortness Of Breath Or Wheezing) Qty: 8.5 5RF dexlansoprazole 60 mg capsule,biphase delayed releas 60 mg PO DAILY PRN (Reason: Acid Reflux) Qty: 90 0RF montelukast 10 mg tablet 10 mg PO QAM diphenhydramine HCl [Benadryl] 25 mg Capsule 25 mg PO DAILY PRN (Reason: allergies) rosuvastatin 20 mg tablet 20 mg PO QPM mupirocin 2 % ointment 1 applic topical BID Qty: 15 0RF Discharge Orders: Discharge ED (Routine); Ordered 12/13/24 Ordered By: Jim Law Referrals: Princess Glaser MD [Primary Care Provider, [facility]] Discharge Diet: Advance as tolerated Discharge Activity: Resume usual activity Patient Instructions: Opioid Safety, Pain Management Activity Restrictions/Additional Instructions: Please follow-up with your psychiatrist as scheduled next week. Take all medications as prescribed. Please return to the emergency department with any new or worsening symptoms. Print Language: Yemeni Coding Level of Care Code ED Appointment Coordinator for 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
[2024-12-13 01:20] VITALS: BP 123/82; PULSE 102; O2SAT 97
== END 2024-12-13 01:29 | disposition home or self-care (01) ==
PROVIDERS: Emergency Provider General Practice; PCP Family Medicine
DX: F41.8 Other specified anxiety disorders (principal); F17.210 Nicotine dependence, cigarettes, uncomplicated
CPT/HCPCS: 99283

== ENCOUNTER 2024-12-14 18:45 | Emergency (ER) | payer MEDICARE, MEDICAID, SELFPAY ==
[2024-10-15 11:27] VITALS: BP 132/88; BMI 31.9
[2024-12-14 18:46] VITALS: BP 100/69; PULSE 99; RESP 16; TEMP 36.7; O2SAT 95; BMI 29.8
[2024-12-14 19:31] LABS: Basophils % 0.2 %; Eosinophils % 0.1 %; Hematocrit 38.3 % (36-47); Lymphocytes # 2.3 10^3/uL (0.8-4.8); Lymphocytes % 19.1 %; Mean Corpuscular HGB Conc 32.6 g/dL (30-55); Mean Corpuscular Volume 91.8 fl (85-98); Monocytes % 8.1 %; Neutrophils # 8.67 10^3/uL (1.8-7.7); Nucleated Red Blood Cells % 0 %; Platelet Count 308 10^3/cmm (157-399); Red Blood Count 4.17 10^6/uL (3.85-5.65); White Blood Count 12.02 10^3/uL (3.29-11.43)
[2024-12-14 19:52] LABS: Alanine Aminotransferase 16 U/L (0-33); Alkaline Phosphatase 119 U/L (35-105); Aspartate Amino Transferase 16 U/L (0-32); Blood Urea Nitrogen 11 mg/dL (8-23); Calcium 9.1 mg/dL (8.5-10.5); Carbon Dioxide 24 mmol/L (22-29); Chloride 101 mmol/L (98-107); Creatinine Clr Calc Pharmacy 80.4591; Globulin 2.6 g/dL (1.3-4.6); Glomerular Filtration Rate 85.4 mL/min (90-130); Glucose 123 mg/dL (65-115); Osmolality Calculated 287 mOsm/kg (285-295); Sodium 138 mmol/L (136-145); Total Bilirubin 0.2 mg/dL (0.15-1.2); Total Protein 6.6 g/dL (6.6-8.7)
--- NOTE | 2024-12-14 20:03 | ED.C_ITS ---
HPI - Psych 2 General: Chief Complaint: Psychiatric Symptoms Stated Complaint: MHE Time Seen by Provider: 12/14/24 19:26 History of Present Illness: 59 year old female patient presents for follow-up regarding medication management. Reports recent medication changes by another provider who decreased alprazolam from 1mg BID to 0.5mg BID (30 tablets). Patient reports worsening symptoms with the lower dose. Currently under care of Dr. Hdz (psychiatrist) and Dr. Samara Persaud (PCP, recently relocated to [place]). Last inpatient psychiatric admission was approximately one year ago. Patient expresses concern about medication management and states clear preference for previous higher dosing regimen. Reports compliance with prescribed medications but experiencing increased symptoms since dose reduction. Related Data Home Medications ?Medication ?Instructions ?Recorded ?Confirmed acetaminophen 500 mg tablet 1,500 mg PO Q6H PRN Modera te Pain 05/14/24 12/12/24 (Scale Score 5-6) montelukast 10 mg tablet 10 mg PO QAM 10/28/24 rosuvastatin 20 mg tablet 20 mg PO QPM cholesterol 01/1412/12/24 Previous Rx's ?Medication ?Instructions ?Recorded mirtazapine 45 mg tablet 45 mg PO BEDTIME #30 tabs citalopram 40 mg tablet (Celexa) 40 mg PO QAM #30 tabs 05/20/24 benztropine 1 mg tablet 1 mg PO BID #60 tabs 4 gabapentin 300 mg capsule 300 mg PO Q8H chronic pain 3 0 days 09/04/24 #90 caps clozapine 100 mg tablet See Rx Instructions .Route 0 10/17/24 .COMPLEX #210 tabs meloxicam 7.5 mg tablet 7.5 mg PO BID PRN INFLAMATIO N AND 11/16/24 PAIN. #60 tabs albuterol sulfate 90 mcg/actuation 2 puff inhalation Q 4H PRN 11/21/24 aerosol inhaler Shortness Of Breath Or Wheez ing #8.5 grams budesonide-formoterol HFA 160 2 puff inhalation BID #1 0.2 grams 11/21/24 mcg-4.5 mcg/actuation aerosol inhaler (Symbicort) dexlansoprazole 60 mg 60 mg PO DAILY PRN Acid Refl ux #90 11/21/24 capsule,biphase delayed release caps fluticasone propionate 50 2 spray intranasal BID PRN 0 11/21/24 mcg/actuation nasal allergies #48 grams spray,suspension mupirocin 2 % topical ointment 1 applic topical BID #1 5 grams 11/29/24 hydroxyzine HCl 25 mg tablet 25 mg PO Q8H PRN anxiety #30 tabs 12/02/24 lorazepam 1 mg tablet (Ativan) 1 mg buccal Q12H PRN an xiety #7 12/14/24 tabs Allergies Allergy/AdvReac Type Severity Reaction Status Date / Time ibuprofen Allergy Mild ALGY-Rash Verified 12/14/24 20:04 Review of Systems 2 General: Reports: 10 or more systems reviewed and unremarkable except in HPI and below PFSH ED 2 PFSH: Medical History Vitamin B12 deficiency starting B12 orally 12/14 Balance disorder Chronic low back pain Encounter for chronic pain management Tramadol; Legacy patient on this from Dr. 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 Prediabetes Chronic bronchitis with COPD (chronic obstructive pulmonary disease) Mixed hyperlipidemia Psychiatric care Osteoarthritis (arthritis due to wear and tear of joints) Chronic pain disorder Right shoulder, bilateral lower extremities Obesity (BMI 30.0-34.9) GERD (gastroesophageal reflux disease) Surgical History Status post bilateral salpingo-oophorectomy (BSO) S/P laparoscopic assisted vaginal hysterectomy (LAVH) Family History Other CAD (coronary artery disease) Hypertension Social History Smoking and tobacco/nicotine status: current every day tobacco/nicotine user cigarettes Packs smoked per day: 0.5 Alcohol intake: never Substance/Drug Use: former Date of last use: 2012 Former substance use details: meth; hx of IV use Household members: none Marital status: Number of children: 2 Highest education level completed: High School Graduate Current occupational status: disabled 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; Do you think of yourself as: Straight/Heterosexual Female Reproductive History: Para: 2 Physical Exam 2 Const: COMMON NORMALS: no acute distress, patient oriented x3 and alert Resp: COMMON NORMALS: normal respiratory effort and No use of accessory muscles Cardio: COMMON NORMALS: regular rate and regular rhythm RATE: regular rate RHYTHM: regular rhythm Neuro: COMMON NORMALS: patient oriented x3 SENSORIUM/ORIENTATION: Yes alert Psych: COMMON NORMALS: mental status grossly normal, denies homicidal ideation and denies suicidal ideation OTHER: Very anxious Skin: COMMON NORMALS: no rashes or lesions noted, turgor normal and no jaundice GENERAL SKIN EXAM: no rashes or lesions noted and turgor normal Course 2 Vital Signs: Vital signs: Vital Signs Temperature 98.1 F 12/14/24 18:46 Pulse Rate 99 12/14/24 18:46 Respiratory Rate 16 12/14/24 18:46 Blood Pressure 100/69 12/14/24 18:46 Pulse Oximetry 95 12/14/24 18:46 Oxygen Delivery Me thod Room Air 12/14/24 18:46 MDM - Psych Medical Decision Making 1. Anxiety/Depression with medication adjustment issues: - Patient experiencing symptom exacerbation following alprazolam dose reduction - Previous stable on alprazolam 1mg BID - Current dose 0.5mg BID inadequate for symptom control Plan: 1. Will coordinate care with Dr. Hdz (psychiatrist) 2. Consider stabilization treatment if needed 3. Review medication management strategy 4. Close monitoring of symptoms and response to treatment 5. Follow-up appointment to be scheduled Lab Data 12/14/24 19:25 12/14/24 19:25 Laboratory Results WBC 12.02 10^3/uL (3.29-11.43) H 12/14/24: RBC 4.17 10^6/uL (3.85-5.65) 12/14/24 19: Hgb 12.50 g/dL (11.27-16.99) 12/14/24 19: Hct 38.3 % (36-47) 12/14/24 19:25 MCV 91.8 fl (85-98) 12/14/24 19:25 MCH 30.0 pg (27-33) 12/14/24 19: MCHC 32.6 g/dL (30-55) 12/14/24 19:25 RDW 14.0 % (12.1-15.1) 12/14/24 19:25 Plt Count 308 10^3/cmm (157-399) 12/14/24 19: MPV 9.0 fL (7.4-10.4) 12/14/24 19:25 Neut % (Auto) 72.0 % 12/14/24 19:25 Lymph % (Auto) 19.1 % 12/14/24 19: [place] % (Auto) 8.1 % 12/14/24 19: Eos % (Auto) 0.1 % 12/14/24: Baso % (Auto) 0.2 % 12/14/24: Neut # (Auto) 8.67 10^3/uL (1.8-7.7) H 12/14/24 19:25 Lymph # (Auto) 2.3 10^3/uL (0.8-4.8) 12/14/24 19:25 [place] # (Auto) 1.0 10^3/uL (0.2-0.9) H 12/14/24 19:25 Eos # (Auto) 0.0 10^3/uL (0.0-0.8) 12/14/24: Baso # (Auto) 0.0 10^3/uL (0.0-0.1) 12/14/24:25 Nucleated RBC % (auto) 0 % 12/14/24: Nucleated RBCs # 0.0 /100WBC 12/14/24 19:25 Sodium 138 mmol/L (136-145) 12/14/24 19:25 Potassium 4.0 mmol/L (3.5-5.1) 12/14/24 19:25 Chloride 101 mmol/L (98-107) 12/14/24 19:25 Carbon Dioxide 24 mmol/L (22-29) 12/14/24 19:25 Anion Gap 17.0 (5-19) 12/14/24 19:25 BUN 11 mg/dL (8-23) 12/14/24 19:25 Creatinine 0.7 mg/dL (0.5-0.9) 12/14/24 19:25 GFR Calculation 85.4 mL/min (90-130) L 12/14/24 19:25 Glucose 123 mg/dL (65-115) H 12/14/24 19:25 Calculated Osmolality 287 mOsm/kg (285-295) 12/14/24 19:25 Calcium 9.1 mg/dL (8.5-10.5) 12/14/24 19:25 Total Bilirubin 0.2 mg/dL (0.15-1.2) 12/14/24 19:25 AST 16 U/L (0-32) 12/14/24: ALT 16 U/L (0-33) 12/14/24 19:25 Alkaline Phosphatase 119 U/L (35-105) H 12/14/24 19:25 Total Protein 6.6 g/dL (6.6-8.7) 12/14/24 19:25 Albumin 4.0 g/dL (3.5-5.2) 12/14/24 19:25 Globulin 2.6 g/dL (1.3-4.6) 12/14/24 19:25 No radiology studies performed this visit ED provider radiology interpretation(s): None Other Data I reviewed patient's chart and recent labs the labs were for the most part unremarkable mild elevation of white count without explanation vital signs reasonably stable the patient is anxious she feels like she has decompensated somewhat since the change in her medications. I do not feel like she meets criteria to be readmitted we will give her a short course of medication and have her follow-up as outpatient. Discharge Plan Discharge Patient Disposition: Home Clinical Impression: Anxiety disorder Qualifiers: Anxiety disorder type: other anxiety disorder Qualified Code(s): F41.8 - Other specified anxiety disorders Condition: Stable Prescriptions: New lorazepam [Ativan] 1 mg tablet 1 mg buccal Q12H MDD 2 PRN (Reason: anxiety) Qty: 7 0RF Discontinued oxybutynin chloride 15 mg tablet extended release 24hr 15 mg PO BEDTIME Qty: 90 1RF tramadol 50 mg tablet 50 mg PO BID PRN (Reason: pain) 30 Days Qty: 60 3RF diphenhydramine HCl [Benadryl] 25 mg Capsule 25 mg PO DAILY PRN (Reason: allergies) No Action mirtazapine 45 mg tablet 45 mg PO BEDTIME Qty: 30 11RF gabapentin 300 mg capsule 300 mg PO Q8H 30 Days Qty: 90 3RF hydroxyzine HCl 25 mg tablet 25 mg PO Q8H PRN (Reason: anxiety) Qty: 30 0RF clozapine 100 mg tablet See Rx Instructions .ROUTE .COMPLEX Qty: 210 11RF Rx Instructions: Take 3 tablets in the AM and 4 tablets in PM. acetaminophen 500 mg tablet 1,500 mg PO Q6H PRN (Reason: Moderate Pain (Scale Score 5-6)) citalopram [Celexa] 40 mg tablet 40 mg PO QAM Qty: 30 11RF benztropine 1 mg tablet 1 mg PO BID Qty: 60 11RF meloxicam 7.5 mg tablet 7.5 mg PO BID PRN (Reason: INFLAMATION AND PAIN.) Qty: 60 2RF budesonide-formoterol [Symbicort] 160-4.5 mcg/actuation HFA aerosol inhaler 2 puff inhalation BID Qty: 10.2 5RF fluticasone propionate 50 mcg/actuation spray,suspension 2 spray intranasal BID PRN (Reason: allergies) Qty: 48 1RF albuterol sulfate 90 mcg/actuation HFA aerosol inhaler 2 puff inhalation Q4H PRN (Reason: Shortness Of Breath Or Wheezing) Qty: 8.5 5RF dexlansoprazole 60 mg capsule,biphase delayed releas 60 mg PO DAILY PRN (Reason: Acid Reflux) Qty: 90 0RF montelukast 10 mg tablet 10 mg PO QAM rosuvastatin 20 mg tablet 20 mg PO QPM mupirocin 2 % ointment 1 applic topical BID Qty: 15 0RF Discharge Orders: Discharge ED (Routine); Ordered 12/14/24 Ordered By: Joe Hall Referrals: Princess Glaser MD [Primary Care Provider, Family Practice] Discharge Diet: Advance as tolerated Patient Instructions: Opioid Safety, Pain Management Activity Restrictions/Additional Instructions: 1. Take prescriptions as directed and follow-up with psychiatry on Sunday. No further medication refills will be given through the emergency department. Print Language: Bengali Coding Level of Care Code ED Institutional Research Director for Chg Fwd
[2024-12-14] MEDS: LORazepam 1 mg Tablet PO (20:36)
== END 2024-12-14 20:42 | disposition home or self-care (01) ==
PROVIDERS: Emergency Provider Family Medicine; PCP Family Medicine
DX: F41.8 Other specified anxiety disorders (principal); Z79.899 Other long term (current) drug therapy
CPT/HCPCS: 36415; 80053; 85025; 99283; J9999

== ENCOUNTER → 2024-12-17 11:54 | Outpatient (BNVA) | payer MEDICARE, MEDICAID, SELFPAY ==
[2024-10-15 11:27] VITALS: BP 132/88; BMI 31.9
== END ==
PROVIDERS: PCP Family Medicine; Visit Provider Family Medicine
DX: E78.2 Mixed hyperlipidemia (principal); E53.8 Deficiency of other specified B group vitamins; R07.9 Chest pain, unspecified
CPT/HCPCS: 80061; 82607

== ENCOUNTER 2024-12-22 17:49 | Emergency (ER) | payer MEDICARE, MEDICAID, SELFPAY ==
[2024-10-15 11:27] VITALS: BP 132/88; BMI 31.9
[2024-12-22 17:49] VITALS: BP 104/66; PULSE 97; RESP 16; TEMP 36.7; O2SAT 95; BMI 30.5
--- NOTE | 2024-12-22 19:50 | XRR_ITS ---
PROCEDURE INFORMATION: Exam: XR Lumbosacral Spine Exam date and time: 12/22/2024 7:59 PM Age: 59 years old Clinical indication: Low back pain TECHNIQUE: Imaging protocol: Radiologic exam of the lumbosacral spine. Views: 2 or 3 views. COMPARISON: CT lumbar spine wo con* [id number] 12/04/2024 12:46 PM FINDINGS: Bones/joints: Five lumbar type vertebral bodies. Vertebral body heights and lateral alignment maintained. [id number] disc height loss at the L5-S1 level. Disc heights otherwise relatively maintained. [id number] facet arthropathy lower lumbar facet joints. Visualized sacrum and bony pelvis appear intact. Soft tissues: Unremarkable. XR/XR lumbar spine 2-3V* [id number] IMPRESSION: No acute abnormality in the lumbar spine by plain films.
--- NOTE | 2024-12-22 19:51 | W.ED.DIZZY ---
HPI - Dizziness General: Chief Complaint: Dizziness Stated Complaint: DIZZINESS Time Seen by Provider: 12/22/24 19:42 Source: patient and EMS Mode of arrival: EMS Limitations: no limitations History of Present Illness: HPI Narrative: 59-year-old female presents for she states she has low back pain she has been having back pain since a fall back in October. She complains of some dizziness as well she been seen here multiple times for dizziness she states that her PCP has changed her meds she no longer has her benzodiazepines. She ambulates here without any difficulty she denies any headaches. Rates her back pain a 5 out of 10 Associated symptoms: Denies chest pain, chills, headache(s), nausea or vomiting Related Data Home Medications ?Medication ?Instructions ?Recorded ?Confirmed acetaminophen 500 mg tablet 1,500 mg PO Q6H PRN Moderate Pain 05/14/24 12/17/24 (Scale Score 5-6) montelukast 10 mg tablet 10 mg PO QAM 10/28/24 12/17/24 rosuvastatin 20 mg tablet 20 mg PO QPM cholesterol 11/25/24 12/17/24 Previous Rx's ?Medication ?Instructions ?Recorded mirtazapine 45 mg tablet 45 mg PO BEDTIME #30 tabs 04/02/24 citalopram 40 mg tablet (Celexa) 40 mg PO QAM #30 tabs 05/20/24 benztropine 1 mg tablet 1 mg PO BID #60 tabs 06/05/24 gabapentin 300 mg capsule 300 mg PO Q8H chronic pain 30 days 09/04/24 #90 caps clozapine 100 mg tablet See Rx Instructions .Route 10/17/24 .COMPLEX #210 tabs meloxicam 7.5 mg tablet 7.5 mg PO BID PRN INFLAMATION AND 11/16/24 PAIN. #60 tabs albuterol sulfate 90 mcg/actuation 2 puff inhalation Q4H PRN 11/21/24 aerosol inhaler Shortness Of Breath Or Wheezing #8.5 grams budesonide-formoterol HFA 160 2 puff inhalation BID #10.2 grams 11/21/24 mcg-4.5 mcg/actuation aerosol inhaler (Symbicort) dexlansoprazole 60 mg 60 mg PO DAILY PRN Acid Reflux #90 11/21/24 capsule,biphase delayed release caps fluticasone propionate 50 2 spray intranasal BID PRN 11/21/24 mcg/actuation nasal allergies #48 grams spray,suspension mupirocin 2 % topical ointment 1 applic topical BID #15 grams 11/29/24 hydroxyzine HCl 25 mg tablet 25 mg PO Q8H PRN anxiety #30 tabs 12/02/24 lorazepam 1 mg tablet (Ativan) 1 mg buccal Q12H PRN anxiety #7 12/14/24 tabs methocarbamol 750 mg tablet 750 mg PO Q6H PRN spasms #20 tabs 12/22/24 Allergies Allergy/AdvReac Type Severity Reaction Status Date / Time ibuprofen Allergy Mild ALGY-Rash Verified 12/17/24 10:27 Review of Systems Const: Denies: fever(s), chills, body aches or change in appetite ENMT: Denies: throat pain or dental pain Card: Denies: chest pain Resp: Denies: dyspnea GI: Denies: abdominal pain, nausea, vomiting or diarrhea Musc: Reports: back pain; Denies: neck pain Skin/Breast: Denies: rash Neuro: Reports: dizziness; Denies: headache(s) PFS ED PFSH: Medical History Vitamin B12 deficiency starting B12 orally 12/14 Balance disorder Chronic low back pain Encounter for chronic pain management Tramadol; Legacy patient on this from Dr. 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 Prediabetes Chronic bronchitis with COPD (chronic obstructive pulmonary disease) Mixed hyperlipidemia Psychiatric care Osteoarthritis (arthritis due to wear and tear of joints) Chronic pain disorder Right shoulder, bilateral lower extremities Obesity (BMI 30.0-34.9) GERD (gastroesophageal reflux disease) Surgical History Status post bilateral salpingo-oophorectomy (BSO) S/P laparoscopic assisted vaginal hysterectomy (LAVH) Family History Other CAD (coronary artery disease) Hypertension Social History Smoking and tobacco/nicotine status: current every day tobacco/nicotine user cigarettes Packs smoked per day: 0.5 Alcohol intake: never Substance/Drug Use: former Date of last use: 2012 Former substance use details: meth; hx of IV use Household members: none Marital status: Number of children: 2 Highest education level completed: High School Graduate Current occupational status: disabled 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; Do you think of yourself as: Straight/Heterosexual Female Reproductive History: Para: 2 Physical Exam Const: COMMON NORMALS: no acute distress, patient oriented x3 and healthy appearing HENMT: COMMON NORMALS: normocephalic and atraumatic HEAD & SCALP: normocephalic and atraumatic Eye: COMMON NORMALS: conjunctivae normal CONJUNCTIVA: Yes conjunctivae normal Neck/C-Spine: COMMON NORMALS: full ROM and supple Chest: COMMONS NORMALS: normal inspection of the chest Resp: COMMON NORMALS: normal respiratory effort Cardio: COMMON NORMALS: regular rate, regular rhythm and No murmurs present (Cardio) RATE: regular rate RHYTHM: regular rhythm Back/Pelvis: OTHER: Tenderness left lower back no midline tenderness Extremity: COMMON NORMALS: normal to inspection and full ROM Neuro: COMMON NORMALS: patient oriented x3, moves all extremities and no focal motor deficits Psych: COMMON NORMALS: mental status grossly normal, Normal thought process present and cooperative THOUGHT PROCESS: Normal thought process present Skin: COMMON NORMALS: no rashes or lesions noted and no wounds GENERAL SKIN EXAM: no rashes or lesions noted Course Vital Signs: Vital signs: Vital Signs Temperature 98.0 F 12/22/24 17:49 Pulse Rate 97 12/22/24 17:49 Respiratory Rate 16 12/22/24 17:49 Blood Pressure 104/66 12/22/24 17:49 Pulse Oximetry 95 12/22/24 17:49 Oxygen Delivery Me thod Room Air 12/22/24 17:49 MDM - Dizziness Medical Decision Making Patient presents here with low back pain she is well-appearing here x-ray showed no acute findings she is ambulatory out any difficulty she stable for discharge follow-up with PCP return if worsening. Medical Records I reviewed the patient's medical records. XR interpretation done by ED provider, pending radiology final review ED provider radiology interpretation(s): xr lumbar: no acute abnormality Discharge Plan Discharge Patient Disposition: Home Clinical Impression: Low back pain Condition: Stable Prescriptions: New methocarbamol 750 mg tablet 750 mg PO Q6H PRN (Reason: spasms) Qty: 20 0RF No Action mirtazapine 45 mg tablet 45 mg PO BEDTIME Qty: 30 11RF gabapentin 300 mg capsule 300 mg PO Q8H 30 Days Qty: 90 3RF hydroxyzine HCl 25 mg tablet 25 mg PO Q8H PRN (Reason: anxiety) Qty: 30 0RF clozapine 100 mg tablet See Rx Instructions .ROUTE .COMPLEX Qty: 210 11RF Rx Instructions: Take 3 tablets in the AM and 4 tablets in PM. acetaminophen 500 mg tablet 1,500 mg PO Q6H PRN (Reason: Moderate Pain (Scale Score 5-6)) citalopram [Celexa] 40 mg tablet 40 mg PO QAM Qty: 30 11RF benztropine 1 mg tablet 1 mg PO BID Qty: 60 11RF meloxicam 7.5 mg tablet 7.5 mg PO BID PRN (Reason: INFLAMATION AND PAIN.) Qty: 60 2RF budesonide-formoterol [Symbicort] 160-4.5 mcg/actuation HFA aerosol inhaler 2 puff inhalation BID Qty: 10.2 5RF fluticasone propionate 50 mcg/actuation spray,suspension 2 spray intranasal BID PRN (Reason: allergies) Qty: 48 1RF albuterol sulfate 90 mcg/actuation HFA aerosol inhaler 2 puff inhalation Q4H PRN (Reason: Shortness Of Breath Or Wheezing) Qty: 8.5 5RF dexlansoprazole 60 mg capsule,biphase delayed releas 60 mg PO DAILY PRN (Reason: Acid Reflux) Qty: 90 0RF montelukast 10 mg tablet 10 mg PO QAM lorazepam [Ativan] 1 mg tablet 1 mg buccal Q12H MDD 2 PRN (Reason: anxiety) Qty: 7 0RF rosuvastatin 20 mg tablet 20 mg PO QPM mupirocin 2 % ointment 1 applic topical BID Qty: 15 0RF Discharge Orders: Discharge ED (Routine); Ordered 12/22/24 Ordered By: Kade Smith Referrals: Princess Glaesr MD [Primary Care Provider, Family Practice] - 4-7 days Discharge Diet: Advance as tolerated Discharge Activity: Resume usual activity Patient Instructions: Back Pain (ED) Print Language: Portuguese Coding Level of Care Code ED Inventory Accountant for 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
[2024-12-22 20:15] VITALS: BP 111/91; PULSE 84; RESP 16; O2SAT 94
[2024-12-22] MEDS: ketorolac 30 mg/mL INJ IM (20:43)
[2024-12-22] MEDS: methocarbamol 500 mg Tablet 1500 MG PO (21:03)
[2024-12-22 21:04] VITALS: BP 110/84; PULSE 86; RESP 16; O2SAT 95
== END 2024-12-22 21:10 | disposition home or self-care (01) ==
PROVIDERS: Emergency Provider Emergency Medicine; PCP Family Medicine
DX: M54.50 Low back pain, unspecified (principal); F17.210 Nicotine dependence, cigarettes, uncomplicated; J44.9 Chronic obstructive pulmonary disease, unspecified
CPT/HCPCS: 72100; 96372; 99284; J1885; J9999

== ENCOUNTER 2024-12-23 16:40 | Inpatient (IN) | payer MEDICARE, MEDICAID, SELFPAY ==
[2024-10-15 11:27] VITALS: BP 132/88; BMI 31.9
[2024-12-23 16:43] VITALS: BP 125/77; PULSE 101; RESP 17; TEMP 36.7; O2SAT 93; BMI 30.5
--- NOTE | 2024-12-23 16:57 | ECG_ITS ---
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
[2024-12-23 17:12] LABS: Add Urine Microscopic? NO
--- NOTE | 2024-12-23 17:22 | W.ED.ANXIETY ---
HPI - Anxiety General: Chief Complaint: Anxiety Stated Complaint: Anxiety Time Seen by Provider: 12/23/24 16:42 History of Present Illness: 59-year-old female with a history of anxiety, chronic low back pain, concurrent therapy with Ativan and tramadol, schizophrenia, COPD, who presents to the emergency room by ambulance with continued worsening anxiety. In the past month she has had 8 emergency room visits and 2 clinic visits concerning this. She says that she is concerned about her medication causing her to have multiple falls. Reading her clinic note from a couple days ago she had ended up getting some Ativan in the emergency room because she had run out of her Ativan. Apparently this was thought to have started all of this. She was written for 1 mg tablets for 7 days and then seemed unhappy that her primary provider had only been giving her 0.5 mg. She says she wants to go to the stress unit to have her medications adjusted so she will have less falls Related Data Home Medications ?Medication ?Instructions ?Recorded ?Confirmed acetaminophen 500 mg tablet 1,500 mg PO Q6H PRN Moderate Pain 05/14/24 12/17/24 (Scale Score 5-6) montelukast 10 mg tablet 10 mg PO QAM 10/28/24 12/17/24 rosuvastatin 20 mg tablet 20 mg PO QPM cholesterol 11/25/24 12/17/24 Previous Rx's ?Medication ?Instructions ?Recorded mirtazapine 45 mg tablet 45 mg PO BEDTIME #30 tabs 04/02/24 citalopram 40 mg tablet (Celexa) 40 mg PO QAM #30 tabs 05/20/24 benztropine 1 mg tablet 1 mg PO BID #60 tabs 06/05/24 gabapentin 300 mg capsule 300 mg PO Q8H chronic pain 30 days 09/04/24 #90 caps clozapine 100 mg tablet See Rx Instructions .Route 10/17/24 .COMPLEX #210 tabs meloxicam 7.5 mg tablet 7.5 mg PO BID PRN INFLAMATION AND 11/16/24 PAIN. #60 tabs albuterol sulfate 90 mcg/actuation 2 puff inhalation Q4H PRN 11/21/24 aerosol inhaler Shortness Of Breath Or Wheezing #8.5 grams budesonide-formoterol HFA 160 2 puff inhalation BID #10.2 grams 11/21/24 mcg-4.5 mcg/actuation aerosol inhaler (Symbicort) dexlansoprazole 60 mg 60 mg PO DAILY PRN Acid Reflux #90 11/21/24 capsule,biphase delayed release caps fluticasone propionate 50 2 spray intranasal BID PRN 11/21/24 mcg/actuation nasal allergies #48 grams spray,suspension mupirocin 2 % topical ointment 1 applic topical BID #15 grams 11/29/24 hydroxyzine HCl 25 mg tablet 25 mg PO Q8H PRN anxiety #30 tabs 12/02/24 lorazepam 1 mg tablet (Ativan) 1 mg buccal Q12H PRN anxiety #7 12/14/24 tabs methocarbamol 750 mg tablet 750 mg PO Q6H PRN spasms #20 tabs 12/22/24 Allergies Allergy/AdvReac Type Severity Reaction Status Date / Time ibuprofen Allergy Mild ALGY-Rash Verified 12/17/24 10:27 Review of Systems Narrative: Constitutional symptoms: Negative except as documented in HPI. Skin symptoms: Negative except as documented in HPI. Eye symptoms: Negative except as documented in HPI. ENMT symptoms: Negative except as documented in HPI. Respiratory symptoms: Negative except as documented in HPI. Cardiovascular symptoms: Negative except as documented in HPI. Gastrointestinal symptoms: Negative except as documented in HPI. Genitourinary symptoms: Negative except as documented in HPI. Musculoskeletal symptoms: Negative except as documented in HPI. Neurologic symptoms: Negative except as documented in HPI. Psychiatric symptoms: Negative except as documented in HPI. Endocrine symptoms: Negative except as documented in HPI. [facility] ED PFSH: Medical History Vitamin B12 deficiency starting B12 orally 12/14 Balance disorder Chronic low back pain Encounter for chronic pain management Tramadol; Legacy patient on this from Dr. 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 Prediabetes Chronic bronchitis with COPD (chronic obstructive pulmonary disease) Mixed hyperlipidemia Psychiatric care Osteoarthritis (arthritis due to wear and tear of joints) Chronic pain disorder Right shoulder, bilateral lower extremities Obesity (BMI 30.0-34.9) GERD (gastroesophageal reflux disease) Surgical History Status post bilateral salpingo-oophorectomy (BSO) S/P laparoscopic assisted vaginal hysterectomy (LAVH) Family History Other CAD (coronary artery disease) Hypertension Social History Smoking and tobacco/nicotine status: current every day tobacco/nicotine user cigarettes Packs smoked per day: 0.5 Alcohol intake: never Substance/Drug Use: former Date of last use: 2012 Former substance use details: meth; hx of IV use Household members: none Marital status: Number of children: 2 Highest education level completed: High School Graduate Current occupational status: disabled 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 Skin: Warm, dry. Head: Normocephalic, atraumatic. Neck: Supple, trachea midline. Eye: Extraocular movements are intact. Ears, nose, mouth and throat: mucosa moist. Cardiovascular: Regular, Normal peripheral perfusion. Respiratory: Lungs are clear to auscultation, respirations are non-labored, breath sounds are equal, Symmetrical chest wall expansion. Gastrointestinal: Soft, Nontender, Non distended Musculoskeletal: Normal ROM, no deformity. Neurological: Alert and oriented, No focal neurological deficit observed. Psychiatric: Cooperative, patient denies any suicidal or homicidal ideations at this time. Course Vital Signs: Vital signs: Vital Signs Temperature 97.6 F 12/23/24 19:28 Pulse Rate 93 12/23/24 19:28 Respiratory Rate 16 12/23/24 19:28 Blood Pressure 96/72 12/23/24 19:28 Pulse Oximetry 92 12/23/24 19:28 Oxygen Delivery Me thod Room Air 12/23/24 18:50 MDM - Anxiety Medical Decision Making Differential diagnosis: Patient with need for clearance for psychiatric admission. concerns for infection, alcohol intoxication, cardiac issues or other medical problems prior to psychiatric admission. Workup: labwork, ekg ordered to evaluate the pathologies and to clear the patient medically prior to psychiatric admission EKG: Time 1712. Rate 99. Normal sinus rhythm, No ST-T changes, no ectopy, normal VT & QRS intervals, This was reviewed and interpreted by myself the ER physician at 1715. Lab Review: Laboratory results were reviewed and interpreted by myself the emergency room physician. - Medically cleared. - EKG shows no ischemic changes. - Blood alcohol level is negative, -Tylenol and salicylate levels are negative. - Drug screen is positive for benzos - urinalysis does show infection - No anemia. - BUN and creatinine are within normal limits. Consultation: I spoke with Dr. Conrad who agrees to admission. He is upfront that the patient will be weaned from Ativan. The given her age and the short acting nature and her falls that likely this is the biggest part of her issues at this time. I conveyed this to the patient. Assessment and plan: Anxiety Psychiatric issues UTI ?Keflex initiated -Admission to neuropsychiatric unit for continued evaluation and treatment. - All lab work was reviewed and interpreted personally by myself, the ER physician - Evaluation and treatment of this problem were appropriate in the emergency setting Lab Data 12/23/24 17:40 12/23/24 17:40 Laboratory Results WBC 8.35 10^3/uL (3.29-11.43) 12/23/24 17:40 RBC 4.39 10^6/uL (3.85-5.65) 12/23/24 17:40 Hgb 13.20 g/dL (11.27-16.99) 12/23/24 17:40 Hct 40.1 % (36-47) 12/23/24 17:40 MCV 91.3 fl (85-98) 12/23/24 17:40 MCH 30.1 pg (27-33) 12/23/24 17:40 MCHC 32.9 g/dL (30-55) 12/23/24 17:40 RDW 13.6 % (12.1-15.1) 12/23/24 17:40 Plt Count 274 10^3/cmm (157-399) 12/23/24 17:40 MPV 9.5 fL (7.4-10.4) 12/23/24 17:40 Neut % (Auto) 74.1 % 12/23/24 17:40 Lymph % (Auto) 17.8 % 12/23/24 17:40 [place] % (Auto) 7.4 % 12/23/24 17:40 Eos % (Auto) 0.1 % 12/23/24 17:40 Baso % (Auto) 0.2 % 12/23/24 17:40 Neut # (Auto) 6.18 10^3/uL (1.8-7.7) 12/23/24 17:40 Lymph # (Auto) 1.5 10^3/uL (0.8-4.8) 12/23/24 17:40 [place] # (Auto) 0.6 10^3/uL (0.2-0.9) 12/23/24 17:40 Eos # (Auto) 0.0 10^3/uL (0.0-0.8) 12/23/24 17:40 Baso # (Auto) 0.0 10^3/uL (0.0-0.1) 12/23/24 17:40 Nucleated RBC % (auto) 0 % 12/23/24 17:40 Nucleated RBCs # 0.0 /100WBC 12/23/24 17:40 Sodium 139 mmol/L (136-145) 12/23/24 17:40 Potassium 4.3 mmol/L (3.5-5.1) 12/23/24 17:40 Chloride 103 mmol/L (98-107) 12/23/24 17:40 Carbon Dioxide 24 mmol/L (22-29) 12/23/24 17:40 Anion Gap 16.3 (5-19) 12/23/24 17:40 BUN 10 mg/dL (8-23) 12/23/24 17:40 Creatinine 0.5 mg/dL (0.5-0.9) 12/23/24 17:40 GFR Calculation 125.9 mL/min (90-130) 12/23/24 17:40 Glucose 122 mg/dL (65-115) H 12/23/24 17:40 Calculated Osmolality 288 mOsm/kg (285-295) 12/23/24 17:40 Calcium 9.4 mg/dL (8.5-10.5) 12/23/24 17:40 Total Bilirubin 0.2 mg/dL (0.15-1.2) 12/23/24 17:40 AST 18 U/L (0-32) 12/23/24 17:40 ALT 28 U/L (0-33) 12/23/24 17:40 Alkaline Phosphatase 122 U/L (35-105) H 12/23/24 17:40 Total Protein 7.0 g/dL (6.6-8.7) 12/23/24 17:40 Albumin 4.1 g/dL (3.5-5.2) 12/23/24 17:40 Globulin 2.9 g/dL (1.3-4.6) 12/23/24 17:40 TSH 0.55 uIU/mL (0.27-4.20) 12/23/24 17:40 HCG, Qual Negative (Negative) 12/23/24 17:07 Urine Color Yellow (Yellow) 12/23/24 17:07 Urine Appearance Slightly cloudy (CLEAR) 12/23/24 17:07 Urine pH Not Reportable 12/23/24 17:07 Ur Specific [place] Not Reportable 12/23/24 17:07 Urine Protein Not Reportable 12/23/24 17:07 Urine Glucose (UA) Not Reportable 12/23/24 17:07 Urine Ketones Not Reportable 12/23/24 17:07 Urine Blood Not Reportable 12/23/24 17:07 Urine Nitrate Not Reportable 12/23/24 17:07 Urine Bilirubin Not Reportable 12/23/24 17:07 Urine Urobilinogen Not Reportable 12/23/24 17:07 Ur Leukocyte Esterase Not Reportable 12/23/24 17:07 Urine RBC None /hpf (0-2) 12/23/24 17:07 Urine WBC 11-20 /hpf (0-5) H 12/23/24 17:07 Ur Squamous Epith Cells 5-10 /hpf (0-5) H 12/23/24 17:07 Amorphous Sediment Not Reportable 12/23/24 17:07 Urine Bacteria Trace /hpf (NONE) 12/23/24 17:07 Salicylates < 0.3 mg/dL (3-10) L 12/23/24 17:40 Urine Opiates Screen Negative ng/mL (Negative) 12/23/24 17:07 Acetaminophen < 5.0 ug/mL (10-30) L 12/23/24 17:40 Ur Barbiturates Screen Negative ng/mL (Negative) 12/23/24 17:07 Ur Phencyclidine Scrn Negative ng/mL (Negative) 12/23/24 17:07 Ur Amphetamines Screen Negative ng/mL (Negative) 12/23/24 17:07 U Benzodiazepines Scrn Positive ng/mL (Negative) H 12/23/24 17:07 Urine Cocaine Screen Negative ng/mL (Negative) 12/23/24 17:07 U Marijuana (THC) Screen Negative ng/mL (Negative) 12/23/24 17:07 Ethyl Alcohol < 10 mg/dL (0-10) 12/23/24 17:40 No radiology studies performed this visit Discharge Plan Discharge Patient Disposition: Admitted As Inpatient Admit Provider: Elton Hidalgo Clinical Impression: Anxiety Condition: Stable Coding Level of Care Code ED Svp for 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
[2024-12-23 17:28] LABS: HCG Qualitative Urine. Negative (Negative)
[2024-12-23 17:34] LABS: Amphetamines Screen Urine Negative (Negative); Barbiturates Screen Urine Negative (Negative); Benzodiazepines Screen Urine Positive (Negative); Cocaine Screen Urine Negative (Negative); Opiate Screen Urine Negative (Negative); PCP Screen Urine Negative (Negative); THC Screen Urine Negative (Negative)
[2024-12-23 17:45] LABS: Bacteria Urine TRACE /hpf; Urine Appearance Slightly Cloudy (CLEAR); Urine Color Yellow (Yellow)
[2024-12-23 17:46] LABS: Charge for UA Resulting for Rev
[2024-12-23 17:51] LABS: Basophils % 0.2 %; Eosinophils % 0.1 %; Hematocrit 40.1 % (36-47); Lymphocytes # 1.5 10^3/uL (0.8-4.8); Lymphocytes % 17.8 %; Mean Corpuscular HGB Conc 32.9 g/dL (30-55); Mean Corpuscular Hemoglobin 30.1 pg (27-33); Mean Corpuscular Volume 91.3 fl (85-98); Mean Platelet Volume 9.5 fL (7.4-10.4); Monocytes # 0.6 10^3/uL (0.2-0.9); Monocytes % 7.4 %; Neutrophils # 6.18 10^3/uL (1.8-7.7); Neutrophils % 74.1 %; Nucleated Red Blood Cells % 0 %; Platelet Count 274 10^3/cmm (157-399); Red Blood Count 4.39 10^6/uL (3.85-5.65); Red Cell Distribution Width 13.6 % (12.1-15.1); White Blood Count 8.35 10^3/uL (3.29-11.43)
[2024-12-23 18:02] VITALS: BP 106/82; PULSE 96; O2SAT 94
[2024-12-23 18:16] VITALS: BP 109/73; PULSE 97; RESP 18; TEMP 36.6; O2SAT 93
[2024-12-23 18:24] LABS: Alanine Aminotransferase 28 U/L (0-33); Albumin Level 4.1 g/dL (3.5-5.2); Alkaline Phosphatase 122 U/L (35-105); Anion Gap 16.3 (5-19); Aspartate Amino Transferase 18 U/L (0-32); Blood Urea Nitrogen 10 mg/dL (8-23); Calcium 9.4 mg/dL (8.5-10.5); Carbon Dioxide 24 mmol/L (22-29); Chloride 103 mmol/L (98-107); Creatinine Clr Calc Pharmacy 114.0133; Globulin 2.9 g/dL (1.3-4.6); Glomerular Filtration Rate 125.9 mL/min (90-130); Glucose 122 mg/dL (65-115); Osmolality Calculated 288 mOsm/kg (285-295); Potassium 4.3 mmol/L (3.5-5.1); Sodium 139 mmol/L (136-145); Thyroid Stimulating Hormone 0.55 uIU/mL (0.27-4.20); Total Bilirubin 0.2 mg/dL (0.15-1.2)
[2024-12-23 18:38] LABS: Acetaminophen < 5.0 ug/mL (10-30); Alcohol Level < 10 mg/dL (0-10); Salicylate < 0.3 mg/dL (3-10)
[2024-12-23 18:50] VITALS: BP 109/73; PULSE 97; RESP 18; TEMP 36.6; O2SAT 93
[2024-12-23 19:28] VITALS: BP 96/72; PULSE 93; RESP 16; TEMP 36.4; O2SAT 92
[2024-12-23] MEDS: TRAMadol 50 mg Tablet PO (20:28)
[2024-12-23] MEDS: cephALEXin 500 mg Capsule PO (20:28)
[2024-12-23] MEDS: gabapentin 300 mg Capsule PO (20:28)
--- NOTE | 2024-12-23 20:28 | PC.NURSE ---
PT GIVEN TRAMADOL FOR LOWER BACK PAIN RATED 3/10 PER PT REQUEST.
[2024-12-23] MEDS: cloZAPine 100 mg Tablet 400 MG PO (20:29)
[2024-12-23] MEDS: nicotine 2 mg Gum BUCCAL (20:42)
--- NOTE | 2024-12-23 21:11 | PC.NURSE ---
PT RRESTING QUIETLY IN ROOM WITH S/S OF PAIN AT THIS TIME.
[2024-12-23] MEDS: albuterol 2.5 MG/0.5 ML NEB INHALATION (21:18)
[2024-12-23 21:30] VITALS: PULSE 98; RESP 16; O2SAT 96
[2024-12-24] VITALS (8 sets, daily range): BP systolic 69–108; BP diastolic 45–70; PULSE 84–100; RESP 16–18; TEMP 36.7; O2SAT 93–97
[2024-12-24] MEDS: TRAMadol 50 mg Tablet PO (07:54)
[2024-12-24] MEDS: hyDROXYzine 25 mg Capsule 50 MG PO (07:54)
[2024-12-24] MEDS: gabapentin 300 mg Capsule PO ×3 (08:09→20:13)
[2024-12-24] MEDS: citalopram 20 mg Tablet 40 MG PO (08:09)
[2024-12-24] MEDS: cephALEXin 500 mg Capsule PO ×3 (08:09→20:12)
[2024-12-24] MEDS: docusate sodium 100 mg Capsule PO (08:09)
[2024-12-24] MEDS: cloZAPine 100 mg Tablet 300 MG PO (08:10)
[2024-12-24] MEDS: fluticasone nasal spray 16gm Btl 2 SPRAY NASAL ×2 (08:11→17:14)
[2024-12-24] MEDS: albuterol 2.5 MG/0.5 ML NEB INHALATION (08:18)
[2024-12-24] MEDS: budesonide 0.5 mg/2 mL Neb INHALATION ×2 (08:18→21:08)
[2024-12-24] MEDS: nicotine 2 mg Gum BUCCAL ×2 (09:47→17:07)
[2024-12-24] MEDS: OLANZapine 5 mg ODT PO (12:05)
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
[2024-12-24] MEDS: cloZAPine 100 mg Tablet 400 MG PO (20:12)
[2024-12-24] MEDS: nicotine 4 mg lozenge MUCOUS MEM (20:51)
[2024-12-24] MEDS: neomycin-poly-bacitracin oint 28 gm 1 APPLIC TOPICAL (21:50)
[2024-12-25] VITALS (7 sets, daily range): BP systolic 75–134; BP diastolic 55–86; PULSE 74–99; RESP 16; TEMP 36.2–36.8; O2SAT 91–99
[2024-12-25] MEDS: cloZAPine 100 mg Tablet 300 MG PO (08:30)
[2024-12-25] MEDS: docusate sodium 100 mg Capsule PO (08:31)
[2024-12-25] MEDS: citalopram 20 mg Tablet 40 MG PO (08:31)
[2024-12-25] MEDS: cephALEXin 500 mg Capsule PO ×3 (08:31→20:44)
[2024-12-25] MEDS: gabapentin 300 mg Capsule PO ×3 (08:31→20:45)
[2024-12-25] MEDS: TRAMadol 50 mg Tablet PO ×2 (08:40→20:49)
[2024-12-25] MEDS: budesonide 0.5 mg/2 mL Neb INHALATION ×2 (09:17→20:54)
[2024-12-25] MEDS: fluticasone nasal spray 16gm Btl 2 SPRAY NASAL ×2 (09:32→20:49)
--- NOTE | 2024-12-25 14:22 | P.NPUPN_ITS ---
Subjective NPU 2 Subjective: 59-year-old white female with a history of schizophrenia and major depressive disorder admitted with increased complaints of wishing for medication change, increased anxiety and complaints of dizziness, and balance issues. The patient reported that she has been having problems with balance as well. She reported that her voices had been quiet. She denied any racing thoughts. The patient had reported having difficulties with falling asleep. She denied any thoughts of hurting herself or anyone else at this time. She had complained of having problems with her memory but reported that she was able to care for herself at home. Mental Status Exam 2 MSE Comments: She is a casually dressed white female who appeared her stated age who appeared in moderate distress. She had good eye contact and no evidence of any abnormal involuntary motor movements tics or tremors appreciated. Her mood was described as anxious. Her affect appeared mood congruent and anxious. Her thought process was linear and logical. Her thought content showed no active homicidal ideation and she endorsed no suicidal ideation with no active plan or intent noted. Her attention span appeared fair. Her insight was poor. Her judgment was poor. Her impulse control appeared limited. Recent and remote memory appeared grossly intact. She was alert and oriented to person, place, and time. There was no clear evidence of delusional thinking and she did not appear to be responding to internal stimuli. Vitals/I&O/Wt Last Vital Signs Temp 97.2 F L 12/25/24 06:15 Pulse 97 12/25/24 10:00 Resp 16 12/25/24 09:18 BP 101/75 12/25/24 10:00 Pulse Ox 99 12/25/24 09:18 O2 Del Method Room Air 12/25/24 09:18 Weight last 48 hrs Weight 75.75 kg Data NPU 12/23/24 17:40 12/23/24 17:40 A&P Assessment and plan (1) Anxiety: (2) Schizophrenia: (3) Depression: Plan Patient is a 59-year-old white female with a history of schzophrenia currently receiving services through the [facility] on Clozaril and other psychotropic medications admitted with increased anxiety and requesting an evaluation of her medications as she complains of problems with dizziness and increased risk of falls. 1. Patient will be restarted on her medications at this time. She does appear to have some orthostasis with low blood pressure and reports of lightheadedness. Will contact outpatient provider for further input. 2. TO 15-minute checks on the unit 3. Hesitant to change antipsychotic medication, will attempt to determine cause of lightheadedness. PDMP PDMP Reviewed: Not Reviewed Involuntary Hold Information 2 96 Hour Hold: 96 Hour Involuntary Admission: No Attestations NPU 2 Medical Necessity Statement*: Inpatient hospitalization is medically necessary and the clinically appropriate intervention at this time. We will monitor medications and make changes as indicated. Patient will be in the hospital for over two midnights. The patient's likely length of stay is three to five days. Coding Level of Care Code Acute Code for g Fwd Diagnoses Anxiety F41.9 Other schizophrenia F20.89 Schizophrenia type: other Depression F32.A
--- NOTE | 2024-12-25 14:40 | ECG_ITS ---
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
--- NOTE | 2024-12-25 14:59 | CTR_ITS ---
PROCEDURE INFORMATION: Exam: CT Head Without Contrast Exam date and time: 12/25/2024 5:11 PM Age: 59 years old Clinical indication: Altered mental status/memory loss and dizziness; Dizziness with memory loss. History of schizophrenia. ; Additional info: AMS TECHNIQUE: Imaging protocol: Computed tomography of the head without contrast. Radiation optimization: All CT scans at this facility use at least one of these dose optimization techniques: automated exposure control; mA and/or kV adjustment per patient size (includes targeted exams where dose is matched to clinical indication); or iterative reconstruction. COMPARISON: CT head wo con* [id number] 09/11/2024 9:30 AM RADIATION DOSE METRICS: Total DLP (mGy-cm): 971.44 FINDINGS: Brain: Similar mild generalized cortical atrophy. No hemorrhage. Periventricular and subcortical white matter hypodensities likely represent chronic small vessel ischemic changes. No mass effect. Cerebral ventricles: No ventriculomegaly. Paranasal sinuses: Visualized sinuses are unremarkable. No fluid levels. Mastoid air cells: Visualized mastoid air cells are well aerated. Bones: Unremarkable. No acute fracture. Soft tissues: Unremarkable. CT/CT head wo con* [id number] IMPRESSION: No acute intracranial abnormality.
--- NOTE | 2024-12-25 15:03 | P.CONIM_ITS ---
Providers/Reason For Consult 2 Consulting Physician/Specialty*: Psychiatry Reason for Consult*: Dizziness, orthostatic hypotension Attending Physician: Elton Hidalgo MD Primary Care Provider: Princess Glaser MD History of Present Illness History of Present Illness Hilda Nolan is a 59 year old female with a past medical history of GERD, anxiety, B12 deficiency, who presents to [facility] seen in n.p.u., Dizziness. Currently patient is alert oriented x 3, following all commands, she reports dizziness upon ambulation, changing positions, reports falls, no headache, blurry vision, no nausea, no vomiting, no chest pain, no palpitations, no shortness of breath she does report a remote history of drug use, does report a remote history of alcoholism, denies a cardiovascular history, no history of COPD, does report smoking, denies neuropathy of her feet Review of Systems 2 Const: Denies: fever(s) Card: Denies: chest pain Resp: Denies: dyspnea GI: Denies: abdominal pain Medications/Allergies Home Medications ?Medication ?Instructions ?Recorded ?Confirmed ?Last Taken ?Type mirtazapine 45 mg tablet 45 mg PO BEDTIME #30 tabs 12/25/24 12/11/24 20:00 Rx citalopram 40 mg tablet (Celexa) 40 mg PO QAM #30 tabs 05/20/24 12/25/24 12/12/24 Rx benztropine 1 mg tablet 1 mg PO BID #60 tabs 4 12/25/24 12/12/24 Rx gabapentin 300 mg capsule 300 mg PO Q8H chronic pain 3 0 days 09/04/24 12/25/24 12/12/24 Rx #90 caps clozapine 100 mg tablet See Rx Instructions .Route 0 10/17/24 12/25/24 12/12/24 Rx .COMPLEX #210 tabs montelukast 10 mg tablet 10 mg PO QAM 10/28/2412/12/24 History meloxicam 7.5 mg tablet 7.5 mg PO BID PRN INFLAMATIO N AND 11/16/24 12/25/24 12/11/24 Rx PAIN. #60 tabs albuterol sulfate 90 mcg/actuation 2 puff inhalation Q 4H PRN 11/21/24 12/25/2412/05/25 Rx aerosol inhaler Shortness Of Breath Or Wheez ing #8.5 grams budesonide-formoterol HFA 160 2 puff inhalation BID #1 0.2 grams 11/21/24 12/25/24 12/11/24 Rx mcg-4.5 mcg/actuation aerosol inhaler (Symbicort) dexlansoprazole 60 mg 60 mg PO DAILY PRN Acid Refl ux #90 11/21/24 12/25/24 12/12/24 Rx capsule,biphase delayed release caps fluticasone propionate 50 2 spray intranasal BID PRN 0 11/21/24 12/25/24 12/12/24 Rx mcg/actuation nasal allergies #48 grams spray,suspension rosuvastatin 20 mg tablet 20 mg PO QPM cholesterol 01/1412/25/24 12/12/24 History hydroxyzine HCl 25 mg tablet 25 mg PO Q8H PRN anxiety #30 tabs 12/02/24 12/25/24 12/12/24 Rx methocarbamol 750 mg tablet 750 mg PO Q6H PRN spasms # 20 tabs 12/22/24 12/25/24 Unknown Rx lorazepam 0.5 mg tablet 0.5 mg PO DAILY PRN Anxiety 12/25/24 12/25/24 Unknown History Allergies Allergy/AdvReac Type Severity Reaction Status Date / Time ibuprofen Allergy Mild ALGY-Rash Verified 12/17/24 10:27 Current Medications Generic Name Dose Route Start Last Admin Trade Name Freq PRN Reason Stop Dose Admin Albuterol Sulfate 2.5 mg 12/23/24 20:02 12/24/24 08:18 Albuterol 2.5 Mg/0.5 Ml Neb INHALATION 2.5 mg Q4H.RESPIRATORY PRN Administration SHORTNESS OF BREATH Budesonide 0.5 mg 12/24/24 08:00 12/25/24 09:17 Budesonide 0.5 Mg/2 Ml Neb INHALATION 0.5 mg BID.RESPIRATORY RIGO Administration Cephalexin HCl 500 mg 12/23/24 21:00 12/25/24 08:31 Cephalexin 500 Mg Capsule PO 500 mg TID RIGO Administration Protocol Citalopram Hydrobromide 40 mg 12/24/24 09:00 12/25/24 08:31 Citalopram 20 Mg Tablet PO 40 mg DAILY RIGO Administration Clozapine 300 mg 12/24/24 09:00 12/25/24 08:30 Clozapine 100 Mg Tablet PO 300 mg DAILY RIGO Administration Clozapine 400 mg 12/23/24 21:00 12/24/24 20:12 Clozapine 100 Mg Tablet PO 400 mg BEDTIME RIGO Administration Docusate Sodium 100 mg 12/24/24 09:00 12/25/24 08:31 Docusate Sodium 100 Mg Capsule PO 100 mg DAILY RIGO Administration Fluticasone Propionate 2 spray 12/24/24 09:00 12/25/24 09:32 Fluticasone Nasal [place] 16gm Btl NASAL 2 spray BID RIGO Administration Gabapentin 300 mg 12/23/24 21:00 12/25/24 08:31 Gabapentin 300 Mg Capsule PO 300 mg TID RIGO Administration Hydroxyzine Pamoate 50 mg 12/23/24 18:15 12/24/24 07:54 Hydroxyzine 25 Mg Capsule PO 50 mg Q6H PRN Administration ANXIETY Neomycin/Polymyxin/Bacitracin 1 applic 12/24/24 20:30 12/25/24 09:33 Smpcznxu-Bpci-Epekbdkisc Oint 28 Gm TOPICAL Not Given BID RIGO Nicotine Polacrilex 2 mg 12/23/24 18:15 12/24/24 17:07 Nicotine 2 Mg Gum BUCCAL 2 mg Q2H PRN Administration NICOTINE WITHDRAWAL Nicotine Polacrilex 4 mg 12/24/24 18:20 12/24/24 20:51 Nicotine 4 Mg Lozenge MUCOUS MEM 4 mg Q2H PRN Administration NICOTINE CRAVINGS Olanzapine 5 mg 12/23/24 18:15 12/24/24 12:05 Olanzapine 5 Mg Odt PO 5 mg Q4H PRN Administration Agitation/Psychosis Tramadol HCl 50 mg 12/23/24 20:02 12/25/24 08:40 Tramadol 50 Mg Tablet PO 50 mg BID PRN Administration MODERATE PAIN PFSH Acute 2 PFSH: Medical History Vitamin B12 deficiency starting B12 orally 12/14 Balance disorder Chronic low back pain Encounter for chronic pain management Tramadol; Legacy patient on this from Dr. 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 Prediabetes Chronic bronchitis with COPD (chronic obstructive pulmonary disease) Mixed hyperlipidemia Psychiatric care Osteoarthritis (arthritis due to wear and tear of joints) Chronic pain disorder Right shoulder, bilateral lower extremities Obesity (BMI 30.0-34.9) GERD (gastroesophageal reflux disease) Surgical History Status post bilateral salpingo-oophorectomy (BSO) S/P laparoscopic assisted vaginal hysterectomy (LAVH) Family History Other CAD (coronary artery disease) Hypertension Social History Smoking and tobacco/nicotine status: current every day tobacco/nicotine user cigarettes Packs smoked per day: 0.5 Alcohol intake: never Substance/Drug Use: former Date of last use: 2012 Former substance use details: meth; hx of IV use Household members: none Marital status: Number of children: 2 Highest education level completed: High School Graduate Current occupational status: disabled 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; Do you think of yourself as: Straight/Heterosexual Female Reproductive History: Para: 2 Vitals/I&O/Wt Last Vital Signs Temp 97.2 F L 12/25/24 06:15 Pulse 97 12/25/24 10:00 Resp 16 12/25/24 09:18 BP 101/75 12/25/24 10:00 Pulse Ox 99 12/25/24 09:18 O2 Del Method Room Air 12/25/24 09:18 Weight last 48 hrs Weight 75.75 kg Physical Exam 2 Const: COMMON NORMALS: no acute distress and patient oriented x3 HENMT: COMMON NORMALS: normocephalic HEAD & SCALP: normocephalic Neck/C-Spine: COMMON NORMALS: no JVD Resp: COMMON NORMALS: normal respiratory effort, No retractions, No use of accessory muscles and clear to auscultation bilaterally AUSCULTATION: clear to auscultation bilaterally Cardio: COMMON NORMALS: no JVD, regular rate, regular rhythm, S1 normal heart sound present and S2 normal heart sound present RATE: regular rate RHYTHM: regular rhythm HEART SOUNDS: S1 normal heart sound present and S2 normal heart sound present GI: COMMON NORMALS: Normal to inspection, nondistended, normoactive bowel sounds present and non-tender Extremity: COMMON NORMALS: no calf tenderness and no pedal edema Neuro: COMMON NORMALS: patient oriented x3, CN's II-XII intact bilaterally and moves all extremities Psych: COMMON NORMALS: mental status grossly normal Data 12/23/24 17:40 12/23/24 17:40 A&P Assessment and plan (1) Dizziness: (2) Orthostasis: Plan Orthostatic hypotension - Will give 1 L normal saline - Due to orthostatic vitals Dizziness - Multifactorial -Orthostatic hypotension - Polypharmacy from multiple psychotropic medications - Will do broad workup including CBC, CMP, TSH, B12, CT head, troponins, cosyntropin stimulation test PDMP PDMP Reviewed: Last Reviewed 12/25/24 15:05 by Óscar Lincoln MD Consult Attestations 2 Medical Necessity Statement: Patient requires hospitalization for orthostatic hypotension, dizziness Diagnoses Dizziness R42 Orthostasis I95.1
[2024-12-25 15:21] LABS: Basophils % 0.2 %; Eosinophils % 0.1 %; Hematocrit 39.4 % (36-47); Lymphocytes # 2.1 10^3/uL (0.8-4.8); Lymphocytes % 18.3 %; Mean Corpuscular HGB Conc 32.5 g/dL (30-55); Mean Corpuscular Hemoglobin 29.8 pg (27-33); Mean Corpuscular Volume 91.8 fl (85-98); Mean Platelet Volume 9.4 fL (7.4-10.4); Monocytes # 0.9 10^3/uL (0.2-0.9); Monocytes % 8.1 %; Neutrophils # 8.48 10^3/uL (1.8-7.7); Nucleated Red Blood Cells % 0 %; Platelet Count 281 10^3/cmm (157-399); Red Blood Count 4.29 10^6/uL (3.85-5.65); White Blood Count 11.61 10^3/uL (3.29-11.43)
[2024-12-25 15:37] LABS: Troponin(5th) Baseline < 6 ng/L (0-10)
[2024-12-25 15:47] LABS: Alanine Aminotransferase 34 U/L (0-33); Albumin Level 4.3 g/dL (3.5-5.2); Alkaline Phosphatase 131 U/L (35-105); Anion Gap 16.5 (5-19); Aspartate Amino Transferase 36 U/L (0-32); Blood Urea Nitrogen 13 mg/dL (8-23); C Reactive Protein 3.4 mg/L (0.0-4.9); Calcium 9.5 mg/dL (8.5-10.5); Carbon Dioxide 24 mmol/L (22-29); Chloride 103 mmol/L (98-107); Creatinine Clr Calc Pharmacy 95.0111; Globulin 2.3 g/dL (1.3-4.6); Glucose 118 mg/dL (65-115); Osmolality Calculated 289 mOsm/kg (285-295); Potassium 4.5 mmol/L (3.5-5.1); Sodium 139 mmol/L (136-145); Total Bilirubin 0.2 mg/dL (0.15-1.2); Total Protein 6.6 g/dL (6.6-8.7)
[2024-12-25 16:08] LABS: Estmated Average Glucose 123; Hemoglobin A1C 5.9 % (4.0-6.0)
[2024-12-25 16:14] LABS: Cortisol Random 6.65 ug/dL (2.47-19.5)
[2024-12-25 16:26] LABS: Folate Level 6.5 ng/mL (4.8-37.3)
[2024-12-25 17:14] LABS: Vitamin B12 277 pg/mL (232-1245)
[2024-12-25] MEDS: lactated ringers 1,000 ML 999 ML IV (17:30)
[2024-12-25] MEDS: cosyntropin 0.25 mg SDV IVP (17:45)
[2024-12-25 17:53] LABS: Troponin 5 2HR < 6.0 ng/L (0-10); Troponin 5 2HR Delta 0 ABS# (0-10)
[2024-12-25 18:20] LABS: Bilirubin Urine Negative (Negative); Blood Urine Negative (Negative); Glucose Urine UA Negative (Normal); Ketones Urine Negative (Negative); Leukocyte Esterase Urine Negative (Negative); Nitrate Urine Negative (Negative); Protein Urine Negative (Negative); Specific Gravity, Urine 1.009 (1.005-1.030); Urine Appearance Clear (CLEAR); Urine Color Yellow (Yellow); pH Urine 6.5 (5-7)
[2024-12-25 18:26] LABS: Add Urine Microscopic? YES; Bacteria Urine None Seen /hpf; Hyaline Casts Urine 0-4 /lpf; RBC Urine 0-2 /hpf (0-2); Squamous Epithelial Cell Urine 0-5 /hpf (0-5); WBC Urine 0-5 /hpf (0-5)
--- NOTE | 2024-12-25 19:13 | PC.NURSE ---
pt iv this nurse called hospitalist to confirm plan of care for this pt. he stated to call sylvia. this nurse called sylvia and he stated that pt iv could be pulled and we would do am labs on pt. she could stay on the unit. iv pulled catheter intact.
[2024-12-25] MEDS: neomycin-poly-bacitracin oint 28 gm 1 APPLIC TOPICAL (20:43)
[2024-12-25] MEDS: cloZAPine 100 mg Tablet 400 MG PO (20:44)
[2024-12-25] MEDS: trazodone 50 mg Tablet PO (20:47)
[2024-12-26 06:29] VITALS: RESP 17
--- NOTE | 2024-12-26 06:29 | PC.NURSE ---
patient refused vitals, said no, not right now. Rolled over facing away from overhauler helper. nurse notified of refusal
[2024-12-26 07:00] VITALS: BP 101/72; BP 129/82; BP 131/80; PULSE 88; PULSE 91; PULSE 97
[2024-12-26 08:41] LABS: Basophils % 0.2 %; Eosinophils % 0.2 %; Hematocrit 38.6 % (36-47); Lymphocytes # 2.2 10^3/uL (0.8-4.8); Lymphocytes % 22.4 %; Mean Corpuscular HGB Conc 33.2 g/dL (30-55); Mean Corpuscular Hemoglobin 30.2 pg (27-33); Mean Platelet Volume 9.5 fL (7.4-10.4); Monocytes # 0.8 10^3/uL (0.2-0.9); Monocytes % 7.6 %; Neutrophils # 6.86 10^3/uL (1.8-7.7); Neutrophils % 69.1 %; Nucleated Red Blood Cells % 0 %; Platelet Count 271 10^3/cmm (157-399); Red Blood Count 4.24 10^6/uL (3.85-5.65); Red Cell Distribution Width 13.6 % (12.1-15.1); White Blood Count 9.94 10^3/uL (3.29-11.43)
[2024-12-26] MEDS: budesonide 0.5 mg/2 mL Neb INHALATION (08:54)
[2024-12-26 08:55] VITALS: PULSE 89; RESP 18; O2SAT 98
[2024-12-26 09:04] LABS: Alanine Aminotransferase 32 U/L (0-33); Albumin Level 4.1 g/dL (3.5-5.2); Alkaline Phosphatase 116 U/L (35-105); Anion Gap 14.8 (5-19); Aspartate Amino Transferase 26 U/L (0-32); Blood Urea Nitrogen 10 mg/dL (8-23); Calcium 9.5 mg/dL (8.5-10.5); Carbon Dioxide 27 mmol/L (22-29); Chloride 104 mmol/L (98-107); Creatinine Clr Calc Pharmacy 95.0111; Globulin 2.3 g/dL (1.3-4.6); Glucose 126 mg/dL (65-115); Osmolality Calculated 295 mOsm/kg (285-295); Potassium 3.8 mmol/L (3.5-5.1); Sodium 142 mmol/L (136-145); Total Bilirubin 0.3 mg/dL (0.15-1.2); Total Protein 6.4 g/dL (6.6-8.7)
[2024-12-26 09:10] LABS: Cosyntropin Baseline 21.69 mcg/dL
[2024-12-26] MEDS: docusate sodium 100 mg Capsule PO (09:22)
[2024-12-26] MEDS: gabapentin 300 mg Capsule PO (09:22)
[2024-12-26] MEDS: citalopram 20 mg Tablet 40 MG PO (09:23)
[2024-12-26] MEDS: cephALEXin 500 mg Capsule PO (09:23)
[2024-12-26] MEDS: fluticasone nasal spray 16gm Btl 2 SPRAY NASAL (09:24)
[2024-12-26] MEDS: neomycin-poly-bacitracin oint 28 gm 1 APPLIC TOPICAL (09:24)
[2024-12-26] MEDS: TRAMadol 50 mg Tablet PO (09:33)
[2024-12-26] MEDS: cloZAPine 100 mg Tablet 300 MG PO (09:46)
[2024-12-26] MEDS: cosyntropin 0.25 mg SDV IM (09:46)
--- NOTE | 2024-12-26 09:51 | PC.NURSE ---
@[id number] administered cosyntropin 0.25mg IM in right gluteus carissa. notified lab
[2024-12-26 10:51] LABS: Cosyntropin 30 Minute 27.46 mcg/dL
[2024-12-26 11:00] VITALS: BP 107/73; BP 120/78; BP 122/81; PULSE 101; PULSE 102; PULSE 104
[2024-12-26 11:28] LABS: Cosyntropin 1 Hour 33.88 mcg/dL
[2024-12-26] MEDS: hyDROXYzine 25 mg Capsule 50 MG PO (11:48)
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
[2024-12-26 13:51] VITALS: BP 98/68; PULSE 59; RESP 16; TEMP 37.1; O2SAT 97
[2024-12-30 12:16] LABS: Methylmalonic Acid 182 nmol/L (69-390)
== END 2024-12-26 15:02 | disposition home or self-care (01) | DRG 885 ==
LOC: ER 17:52 → NP 17:55
PROVIDERS: Family Medicine; Admitting Provider Psychiatry & Neurology Psychiatry; Emergency Provider Emergency Medicine; PCP Family Medicine; Visit Provider Psychiatry & Neurology Psychiatry
DX: F20.9 Schizophrenia, unspecified (principal); R45.851 Suicidal ideations; F41.9 Anxiety disorder, unspecified; F32.A Depression, unspecified; Z91.81 History of falling; F17.210 Nicotine dependence, cigarettes, uncomplicated; F41.0 Panic disorder [episodic paroxysmal anxiety]; I95.1 Orthostatic hypotension; J44.9 Chronic obstructive pulmonary disease, unspecified; E78.2 Mixed hyperlipidemia
CPT/HCPCS: 36415; 70450; 72100; 80053; 80306; 80307; 81001; 81003; 81025; 82533; 82607; 82746; 83036; 83605; 83921; 84443; 84484; 85025; 86140; 93005; 94640; 96372; 97150; 97161; 97165; 99284; 99285; J0834; J1885; J7120; J7611; J7626; J9999

== ENCOUNTER → 2025-01-15 12:13 | Outpatient (BNVA) | payer MEDICARE, MEDICAID, SELFPAY ==
[2024-10-15 11:27] VITALS: BP 132/88; BMI 31.9
== END ==
PROVIDERS: PCP Family Medicine; Visit Provider Family Medicine
DX: N81.9 Female genital prolapse, unspecified (principal); N39.46 Mixed incontinence
CPT/HCPCS: 87077; 87086; 87184

== ENCOUNTER 2025-01-19 19:25 | Emergency (ER) | payer MEDICARE, MEDICAID, SELFPAY ==
[2024-10-15 11:27] VITALS: BP 132/88; BMI 31.9
--- OUTSIDE RECORDS SUMMARY | 2024-12-08 04:16 | XMS_ITS | Continuity of Care Document ---
Author Organization [facility] Address [address] [place] [address] Phone Care Team Providers Care [employer] Technician Name Role Phone Valentin ESTRADA, Christie Unavailable Unavailable Allergies, Adverse Reactions, Alerts Substance Reaction Status Criticality codeine Active No Information PENICILLIN Active No Information Medications Medication Instructions Dosage Effective Dates (start - stop) Status Comments MONTELUKAST SOD 10 MG TABLET take 1 tablet by mouth every evening - Active albuterol sulfate HFA 90 mcg/actuation aerosol inhaler inhale 2 puff by inhalation route every 4 - 6 hours as needed 180 MCG - Active montelukast 10 mg tablet take 1 tablet by mouth every evening - No Longer Active Problems Condition Type Effective Dates (start - stop) Clini sim Status Comments No Known Problems Procedures Procedure Date Spirometry W/ripnr-mk-pbpry Luther 024 OV, Estab Pt, Level IV Admin Of Pt Focused Health Risk Asses In strum Percut Allergy Skin Tests Intracutaneous Tests W/ Allergen Ex Admin Of Pt Focused Health Risk Asses In strum OV, New Pt, Level IV Hearing Aid Declined Laryngoscopy Flexible Diagnostic 2023 OV, New Pt, Level IV Removal Impacted Cerumen Req Instrumenta tion Comp Audiometry Threshold Eval 24 Tympanometry Advance Directives Directive Yes / No Effective Date File Name No Information Encounters Encounter Description Practice Location Reason(s) For Visit Diagnoses Date Provider Providers Copied on Encounter [facility], [address] [place] [address], [id number] , tel: [phone] [facility] No Information 5 Valentin Soriano. [facility] [address], [id number] , [place]. tel: [phone] [facility], [address] [place] [address], [id number] , tel: [phone] [facility] No Information 5 Valentin Soriano. [address] [place] [address], [id number] , . tel: [phone] OV, Estab Pt, Level IV [facility], [address] [facility], [place], [place], [id number] , tel: [phone] [facility] follow up (chief complaint) Other allergic rhinitisAllergic rhinitis due to pollenAllergic rhinitis due to animal (cat) (dog) hair and danderMild intermittent asthma, uncomplicated Apr-0 4 Valentin Soriano. [address] [place] [address], [id number] , [place]. tel: [phone] OV, New Pt, Level IV [facility], [address] [place] [address], [id number] , [place] tel: [phone] [facility] rhinitis allergic (chief complaint)a sthma (chief complaint) Other allergic rhinitisAllergic rhinitis due to pollenAllergic rhinitis due to animal (cat) (dog) hair and danderMild intermittent asthma, uncomplicatedAllergi c rhinitis, unspecified Sep-0 4 Valentin Soriano. [address], [id number] , [place]. tel: [phone] [facility], [address] [facility], [place], [place], [id number] , [place] tel: [phone] [facility] Sensorineural hearing loss, bilateral Sep-0 4 Sandietonyaruthiejovanna AVILA Jaelyn. [address], [id number] , [place]. tel: [phone] Referring Provider: Samuel No MD, [address], [address] . tel:[phone] OV, New Pt, Level IV [facility], [address], [place], [place], [id number] , tel: [phone] [facility] hearing loss (chief complaint)t hroat discomfort (chief complaint)n audra congestion (chief complaint) Sensorineural hearing loss, bilateralTinnitus, bilateralImpacted cerumen, bilateralThroat discomfortAllergic rhinitis, unspecifiedPostnasal drip 4 Oneal Baker . [address], [id number] , [place]. tel: [phone] [facility], [address], [place], [place], [id number] , [place] tel: [phone] [facility] Sensorineural hearing loss, bilateral 4 Oneal Baker . [address], [id number] , [place]. tel: [phone] Family History Family Member Type Diagnosis Age At Onset No Information Payers Payer name Insurance type Covered alliance party ID Authoraydin castellano(s) [facility] PPO BL [id number] Social History Type Description Quantity Date Captured Comments Sex Female Smoking Status No Information Chief Complaint And Reason For Visit No Information Reason For Referral Reason For Referral No Information History Of Present Illness Encounter Date Complaint History Of Prese nt Illness follow up (comments) The patient has AR with nasal congestion, rhinorrhea, postnasal drip, and itchy watery eyes. She denies cough and dyspnea. She takes montelukast, levocetirizine, and fluticasone nasal spray with great improvement in her symptoms. She has asthma triggered by allergen exposure and URIs. She uses albuterol rarely, however she does note that she can feel a wheeze in her chest every few days. This occurs mainly in her upper chest/neck area. She rests and her symptoms resolve within a minute or two. She therefore does not take albuterol for this symptoms. She denies cough and dyspnea. follow up asthma Associated sympt oms include post nasal drainage. Pertinent negatives include hoarseness, irregular heartbeat/palpitations and wheezing. asthma (comments) She was diagno sed with asthma decades ago. Triggers include allergen exposure and URIs. She uses albuterol twice a year on average. She denies cough and dyspnea. rhinitis allergic (comments) The patient has had nasal congestion, rhinorrhea, postnasal drip, and itchy watery eyes. She denies cough and dyspnea. She has had symptoms for 40 years. Symptoms occur year round. She has tried levocetirizine and fluticasone nasal spray with only partial relief. rhinitis allergic The patient is also experiencing ear pain, nasal congestion, post nasal drainage and sneezing. The patient denies cough, dizziness, headache, hoarseness, nausea and urticaria. nasal congestion Associated symp toms include nasal congestion, nasal drainage (anterior), nasal drainage (clear), nasal drainage (posterior) and seasonal allergies. nasal congestion (comments) Carol ent also has been experiencing chronic nasal congestion associated with rhinorrhea and postnasal drip. Patient reported mild hyposmia which, according to the patient, developed following COVID-19. Patient has history of multiple environmental allergies and is currently treated with a regimen of fluticasone and levocetirizine with frequent breakthrough symptoms. throat discomfort hearing loss The patient is e xperiencing hearing loss. throat discomfort (comments) Out patient also complains of a 3-week history of persistent throat discomfort associated with frequent throat clearing and occasional expectoration of clear phlegm. Patient denied any related fever, dyspnea, dysphonia, odynophagia, weight loss, wheezing, stridor or hemoptysis. Patient has no past history of asthma, sinusitis, thyroid or gastroesophageal reflux disease. Patient is a non-smoker and a nondrinker. hearing loss (comments) Patient presented for evaluation of progressive bilateral decrease in hearing acuity, more pronounced in the right ear, associated with bilateral nonpulsatile tinnitus, also more pronounced in the right ear, as well as increasing communicative difficulties. Patient denied any related tinnitus, vertigo, otalgia, otorrhea or fluctuation in hearing acuity. Patient has no pertinent personal or family history of otologic disease. There is no history of loud noise exposure. Patient has no significant history of caffeine, dietary salt or nonsteroidal anti-inflammatory agent consumption. Functional Status Date Functional Assessmen t No Information Instructions Date Instruction Additional Infor mation Remove carpeting, ob tain dust mite protective covers for mattress and pillows, and wash sheets in hot water weekly. Related to Other allergic rhinitis Keep pets out of bed room if pet can't be removed from home and use HEPA air filters for pet dander Related to Allergic rhinitis due to animal (cat) (dog) hair and dander Keep windows closed and change clothes and rinse hair/skin after being outdoors during times of peak pollen. Related to Allergic rhinitis due to pollen Patient was instruct ed to discontinue the use of mouthwash gargles and will use baking soda gargles instead. Related to Throat discomfort Patient will continu e with current regimen of fluticasone and levocetirizine for treatment of allergic rhinitis. Daily use of nasal saline spray was also recommended. The importance of air humidification during winter months was emphasized to the patient. Allergy consultation was also recommended for further evaluation and treatment of underlying allergic component. Patient will return to the office with allergy test results. Related to Allergic rhinitis, unspecified These findings were thoroughly discussed with the patient. A 6-month follow-up visit was recommended for routine cerumen removal. Annual audiologic reevaluation was also suggested to monitor threshold stability. Since patient has been experiencing increasing communicative difficulties, pros and cons of amplification were also outlined for the patient. Patient will return to the office sooner if needed. Related to Sensorineural hearing loss, bilateral Assessments Type Assessment Date No Information Patient Care Teams Name Effective Dates (start - stop) Status Members No Information
[2025-01-19 19:28] VITALS: BP 111/73; PULSE 98; RESP 16; TEMP 36.6; O2SAT 98; BMI 30.5
--- NOTE | 2025-01-19 19:29 | XRR_ITS ---
PROCEDURE INFORMATION: Exam: XR Right Knee Exam date and time: 01/19/2025 7:38 PM Age: 59 years old Clinical indication: Injury or trauma; Fall; Blunt trauma; Knee; Right; Additional info: Fall, pain TECHNIQUE: Imaging protocol: Radiologic exam of the right knee. Views: 3 views. COMPARISON: CR XR foot RT min 3V* [id number] 06/19/2022 4:55 PM FINDINGS: Bones/joints: Normal. Soft tissues: Normal. XR/XR knee RT 3V* [id number] IMPRESSION: No acute findings.
[2025-01-19 19:30] VITALS: BP 111/73; PULSE 96; O2SAT 96
--- OUTSIDE RECORDS SUMMARY | 2025-01-19 19:36 | XMS_ITS | Clinical Summary ---
Author Organization [facility] Address [address] [place]: Epic Prelude ADT OMKAR THOMAS [id number] Care Team Providers Care Master Chef Name Role Phone Conversion, History Primary Care Provider Unavai lable Allergies Active Allergy Reactions Criticality Noted Date Comments Ibuprofen Rash 01/29/2020 Medications oxybutynin chloride (DITROPAN XL) 15 mg Extended Release 24 hour tablet Take 15 mg by mouth daily. 0 Active citalopram (CeleXA) 40 mg tablet 0 Active albuterol sulfate 90 mcg/Actuation inhaler 0 Active ALPRAZolam (XANAX) 0.5 mg tablet 0 Active montelukast (SINGULAIR) 10 mg tablet Take 10 mg by mouth daily. 0 Active cloZAPine (CLOZARIL) 50 mg Tablet 0 Active meloxicam (MOBIC) 7.5 mg tablet TAKE 1 TABLET BY MOUTH TWICE A DAY 0 Active docusate sodium (COLACE) 100 mg capsule TAKE 1 CAPSULE BY MOUTH TWICE DAILY NEEDED FOR CONSTIPATION 0 Active mirtazapine (REMERON) 45 mg tablet 0 Active fluticasone propionate (FLONASE) 50 mcg/spray [place], Suspension nasal inhaler 0 Active cloZAPine (CLOZARIL) 100 mg tablet 0 Active traMADoL (ULTRAM) 50 mg tablet TAKE 1 TABLET BY MOUTH TWICE A DAY NEEDED 0 Active dexlansoprazole (Dexilant) 60 mg Delayed Release capsule TAKE 1 CAPSULE BY MOUTH EVERY DAY 0 Active Immunizations Immunization Administration Dates Next Due (TDVAX)(7 YRS UP) TETANUS AN D DIPHTHERIA TOXOIDS, ADSORBED (2 LF OF TETANUS TOXOID AND 2 LF OF DIPHTHERIA TOXOID), 0.5ML (PF), IM 06/09/2004 Social History Tobacco Use Types Packs/Day Years Used Date Smoking Tobacco: Never Assessed Comments Unknown Sex and Gender Information Value Date Recorded Sex Assigned at Not on file 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[employer] Gender Identity Not on file Sexual Orientation Not on file Last Filed Vital Signs Vital Sign Reading Time Taken Comments Blood Pressure 120/80 04/06/2020 1:26 PM CDT Pulse 90 02/24/2020 12:47 PM CDT Temperature 36.4 C (97.6 F) 02/24/2020 12:17 PM CDT Respiratory Rate 18 02/24/2020 12:47 PM CDT Oxygen Saturation - - Inhaled Oxygen Concentration - - Weight 78.9 kg (174 lb) 04/06/2020 1:26 PM CDT Height 157.5 cm (5' 2 ) 04/06/2020 1:26 PM CDT Body Mass Index 31.83 04/06/2020 1:26 PM CDT Plan of Treatment Health Maintenance Due Date Last Done Comments HPV/Cotest (21-29) 1985 CERVICAL CANCER SCREENING 1994 HPV/Cotest (30-65) 1994 PAP SMEAR 1994 BREAST CANCER SCREENING 2004 DTAP/TDAP/TD VACCINES (1 - Tdap) 06/10/2004 06/09/20 04 COLORECTAL SCREENING 2009 Colorectal Cancer Screening 2009 FIT-DNA Q 3 years 2009 FIT/FOBT Q 1 year 2009 Flex Sig/CT Colonography Q 5 years 2009 ZOSTER VACCINE (1 of 2) 2014 INFLUENZA VACCINE (#1) 2024 RSV VACCINE (60+ or ) (1 - 1-dose 75+ series) 2039 HEPATITIS B VACCINES Aged Out No long er eligible based on patient's age to complete this topic Care Teams Master Chef Relationship Specialty Start Date End Date Conversion, History NO ADDRESS ON FILE PCP - General 04/24/07
--- OUTSIDE RECORDS SUMMARY | 2025-01-19 19:36 | XMS_ITS | Data Portability ---
Author Organization [facility] Maurilio Quiroz [facility], [place], [facility] Address [address] [facility] [address] [place] [address] Assessment No assessment recorded. Plan of Treatment Reminders Order Date Submit Date Provider Last Modified By Organization Details Last Modified Time Details Appointments None recorded. Lab urinalysis, dipstick [address] ([facility]), [address] [place] [address], [address], 5 08:09:08 culture, urine 2024 025 [place] [address] [employer] [facility], [address] [place] [address], [facility] [address] [place], [address], 5 08:09:08 urinalysis, dipstick 2024 025 [facility] ([facility]), [address] [place], [address], 5 12:19:33 culture, urine 2024 025 [facility] ([facility]), [address] [place], [address], 5 17:08:16 Referral None recorded. Procedures None recorded. Surgeries None recorded. Imaging None recorded. Medication Orders cephalexin [address] [facility]/Pharmacy #[id number], [address] [place], [place] [address], [address], [place], [address], 5 12:20:17 nitrofurant oin monohydrate /macrocryst als 100 mg capsule 2024 025 [id number], [address], [facility], [place], [address], 5 10:29:20 cyclobenzap rine 5 mg tablet 2024 025 [id number], [address], [address], [place], [address], 5 12:56:51 amoxicillin 875 mg-potassiu m clavulanate 125 mg tablet [email or web address] [place] [address]/Pharmacy #[id number], [address], [facility] [address], [place], [address], 5 10:28:43 Patient TargetsNo targets recorded. Patient Instructions Encounter Date Encounter Id Patient Instructions Last Modified By Organization Details Last Modified Time 12/10/2024 [id number] smoking cessatio n counseling, greater than 3 minutes up to 10 minutes* [email or web address] Not available 12/18/2024 14:57:35 Reason for Referral None Reported. Results Created Date Observation Date Name Description Value Unit Range Abnormal Flag Note LastModifiedBy Organization Detail LastModifiedTime 09/05/19 25 09/07/2024 CULTU RE, URINE , ROUTI NE culture, urine, routine SEE NOTE abnormal CULTU RE, URINE , ROUTI NE Micro Numbe r: [id number] Test Statu s: Final Speci men Sourc e: Urine Speci men Quali ty: Adequ ate Resul t: 50,00 0-100 ,000 CFU/m L of Klebs iella pneum oniae K.pne umoni ae ----- ----- ----- - INT MIRNA AMOX/ CLAVU LANAT E S 8 AMP/S ULBAC GRACIA R >=32 CEFAZ CECELIA NR <=4 2 CEFEP CORRINA S <=0.1 2 CEFTA ZIDIM E S <=1 CEFTR IAXON E S <=0.2 5 CIPRO FLOXA MARVEL S <=0.0 6 GENTA MICIN S <=1 IMIPE NEM S <=0.2 5 LEVOF LOXAC IN S <=0.1 2 MEROP ENEM S <=0.2 5 NITRO FURAN TOIN I 64 PIP/T AZOBA CTAM S <=4 TRIME THOPR IM/MONTE LFA R >=320 S = Susce ptibl e I = Inter media te R = Resis tant NS = Not susce ptibl e SDD = Susce ptibl e Dose Depen dent * = Not Teste d NR = Not Repor js NN = See Thera py Comme nts THERA PY COMME NTS Note 1: For infec tions other than uncom plica js UTI cause d by E. coli, K. pneum oniae or P. mirab ilis: Cefaz cecelia is resis tant if MIRNA > or = 8 mcg/m L. (Dist ingui shing susce ptibl e versu s inter media te for isola whitney with MIRNA < or = 4 mcg/m L requi res addit ional testi ng.) Note 2: For uncom plica js UTI cause d by E. coli, K. pneum oniae or P. mirab ilis: Cefaz cecelia is susce ptibl e if MIRNA <32 mcg/m L and predi cts susce ptibl e to the oral agent s cefac clarence, cefdi rachael, cefpo doxim e, cefpr ozil, cefur oxime , cepha lexin and lorac arbef . Not Available [facility] [address] [place], [address], 09/07/2024 17:08:16 09/05/19 25 09/05/2024 urina lysis , dipst ick Leukocytes Large Not Available [facility] ( [facility]) [facility] [place], [address], 09/05/2024 11:58:22 09/05/19 25 09/05/2024 urina lysis , dipst ick Nitrite negati ve Not Available [facility] ([facility]) [address] [place], [address], 09/05/2024 11:58:22 09/05/19 25 09/05/2024 urina lysis , dipst ick Urobilinogen .2 Not Available [facility] ([facility]) [address] [place], [address], 09/05/2024 11:58:22 09/05/19 25 09/05/2024 urina lysis , dipst ick Protein Negati ve Not Available [facility] ([facility]) [address] [place], [address], 09/05/2024 11:58:22 09/05/19 25 09/05/2024 urina lysis , dipst ick pH 6.0 Not Available [facility] ([facility]) [address] [place], [address], 09/05/2024 11:58:22 09/05/19 25 09/05/2024 urina lysis , dipst ick Blood Large Not Available [facility] ([facility]) [address] [place], [address], 09/05/2024 11:58:22 09/05/19 25 09/05/2024 urina lysis , dipst ick Specific [place] 1.010 Not Available [facility] ( [facility]) [address] [place], [address], 09/05/2024 11:58:22 09/05/19 25 09/05/2024 urina lysis , dipst ick Ketone Negati ve Not Available [facility] ([facility]) [address] [place], [address], 09/05/2024 11:58:22 09/05/19 25 09/05/2024 urina lysis , dipst ick Bilirubin Negati ve Not Available [facility] ([facility]) [address] [place], [address], 09/05/2024 11:58:22 09/05/19 25 09/05/2024 urina lysis , dipst ick Glucose Negati ve Not Available [facility] ([facility]) [address] [place], [address], 09/05/2024 11:58:22 09/05/19 25 09/05/2024 urina lysis , dipst ick Appearance Cloudy Not Available [facility] ( [facility]) [address] [place], [address], 09/05/2024 11:58:22 09/05/19 25 09/05/2024 urina lysis , dipst ick Color Yellow Not Available [facility] ([facility]) [address] [place], [address], 09/05/2024 11:58:22 10/14/19 25 10/15/2024 CULTU RE, URINE , ROUTI NE culture, urine, routine SEE NOTE abnormal CULTU RE, URINE , ROUTI NE Micro Numbe r: [id number] Test Statu s: Final Speci men Sourc e: Urine Speci men Quali ty: Adequ ate Resul t: 50,00 0-100 ,000 CFU/m L of Klebs iella pneum oniae K.pne umoni ae ----- ----- ----- - INT MIRNA AMOX/ CLAVU LANAT E S 4 AMP/S ULBAC GRACIA I 16 CEFAZ CECELIA NR <=4 2 CEFEP CORRINA S <=0.1 2 CEFTA ZIDIM E S <=1 CEFTR IAXON E S <=0.2 5 CIPRO FLOXA MARVEL S <=0.0 6 GENTA MICIN S <=1 IMIPE NEM S <=0.2 5 LEVOF LOXAC IN S <=0.1 2 MEROP ENEM S <=0.2 5 NITRO FURAN TOIN I 64 PIP/T AZOBA CTAM S <=4 TRIME THOPR IM/MONTE LFA R >=320 S = Susce ptibl e I = Inter media te R = Resis tant NS = Not susce ptibl e SDD = Susce ptibl e Dose Depen dent * = Not Teste d NR = Not Repor js NN = See Thera py Comme nts THERA PY COMME NTS Note 1: For infec tions other than uncom plica js UTI cause d by E. coli, K. pneum oniae or P. mirab ilis: Cefaz cecelia is resis tant if MIRNA > or = 8 mcg/m L. (Dist ingui shing susce ptibl e versu s inter media te for isola whitney with MIRNA < or = 4 mcg/m L requi res addit ional testi ng.) Note 2: For uncom plica js UTI cause d by E. coli, K. pneum oniae or P. mirab ilis: Cefaz cecelia is susce ptibl e if MIRNA <32 mcg/m L and predi cts susce ptibl e to the oral agent s cefac clarence, cefdi rachael, cefpo doxim e, cefpr ozil, cefur oxime , cepha lexin and lorac arbef . Not Available [facility] [address] [place], [address], 10/16/2024 00:22:45 10/14/19 25 10/13/2024 urina lysis , dipst ick Leukocytes Large Not Available [facility] ([facility]) [address] [place], [address], 10/13/2024 10:29:39 10/14/19 25 10/13/2024 urina lysis , dipst ick Nitrite negati ve Not Available [facility] ([facility]) [address] [place], [address], 10/13/2024 10:29:39 10/14/19 25 10/13/2024 urina lysis , dipst ick Urobilinogen .2 Not Available [facility] ([facility]) [address] [place], [address], 10/13/2024 10:29:39 10/14/19 25 10/13/2024 urina lysis , dipst ick Protein Trace Not Available [facility] ([facility]) [address] [place], [address], 10/13/2024 10:29:39 10/14/19 25 10/13/2024 urina lysis , dipst ick pH 6.0 Not Available [facility] ([facility]) [address] [place], [address], 10/13/2024 10:29:39 10/14/19 25 10/13/2024 urina lysis , dipst ick Blood Modera te Not Available [facility] ([facility]) [address] [place], [address], 10/13/2024 10:29:39 10/14/19 25 10/13/2024 urina lysis , dipst ick Specific [place] 1.030 Not Available [facility] ( [facility]) [address] [place], [address], 10/13/2024 10:29:39 10/14/19 25 10/13/2024 urina lysis , dipst ick Ketone Negati ve Not Available [facility] ([facility]) [address] [place], [address], 10/13/2024 10:29:39 10/14/19 25 10/13/2024 urina lysis , dipst ick Bilirubin Small Not Available [facility] ([facility]) [address] [place], [address], 10/13/2024 10:29:39 10/14/19 25 10/13/2024 urina lysis , dipst ick Glucose Negati ve Not Available [facility] ([facility]) [address] [place], [address], 10/13/2024 10:29:39 10/14/19 25 10/13/2024 urina lysis , dipst ick Appearance Slight ly Cloudy Not Available [facility] ([facility]) [address] [place], [address], 10/13/2024 10:29:39 10/14/19 25 10/13/2024 urina lysis , dipst ick Color Dark Yellow Not Available [facility] ([facility]) [address] [place], [address], 10/13/2024 10:29:39 Result Notes None recorded. Problems Name Problem SNOMED Code Status Onset Date Resolution Date Notes Provider Name and Address Organization Details Recorded Time History of tubal ligation 702912386 Active 2020 Tubal Ligation; 10/05/2020 11:26AM by Natali Ibanez, Office Visit; Promoted; acuity set as *; Not Available [facility] 3 03:08:31 Fracture of foot 92362218 Active 2020 Fracture Of Foot; closed of the fourth & shaft & neck of 5th metatarsal of right foot; 10/05/2020 11:26AM by Natali Ibanez, Office Visit; Promoted; acuity set as *; Not Available [facility] 3 03:08:31 Bipolar disorder 42641058 Active 2020 bipolar disorder; 10/05/2020 11:26AM by Natali Ibanez, Office Visit; Promoted; acuity set as *; Not Available [facility] 3 03:08:32 Tonsillec william Active 2020 tonsils removed,19 69; 10/05/2020 11:26AM by Natali Ibanez, Office Visit; Promoted; acuity set as *; Not Available [facility] 3 03:08:32 Strain of muscle of chest wall 535966589 Active 2024 Lino Marie MD [address] [place] [address], [address] , [facility], [facility] 5 12:55:53 Problem Notes None recorded. Procedures Surgical History Date Name Laterality Status Provider Name and Address Organization Details Recorded Time hysterectomy completed Ayanna Russo [facility], [place] 09/05/2024 12:04:53 Imaging Results None recorded. Procedure Notes None recorded. Medical Equipment None Reported. Allergies Allergen ID Allergen Name Allergen Category Reaction Reaction Severity Criticality Documentation Date Start Date Code Code System Note Provider Name and Address Organization Details Recorded Time 37710 naproxen medicatio n respirato ry distress moderate low 02/17/2023 7258 RxNorm Meera Page [facility] [place] [facility], [facility] 5 10:48:23 11040 fluticaso ne / salmetero l medicatio n other Not available Not available 02/17/2023 34088 5 RxNorm React ion: throa t irrit ation , reflu x worse fermin Meera Page [facility], LScotL.CScot 5 10:48:16 67340 naproxen medicatio n Not available Not available Not available 08/15/2024 7258 RxNorm Meera Page [facility], L.[facility] 5 10:48:35 83566 ibuprofen medicatio n Not available Not available Not available 10/13/2024 5640 RxNorm Maria Esther Verduzco [facility], L.[facility] 5 10:34:17 Medications Name Sig Start Date Stop Date Status Note LastModified by Organization Details LastModified Time oxybutyni n chloride ER 15 mg tablet,ex tended release 24 hr TAKE 1 TABLET BY MOUTH AT BEDTIME active Not Available Not Available No t Available atorvasta tin 20 mg tablet TAKE 1 TABLET BY MOUTH EVERY DAY IN THE MORNING 09/05 completed Not Available Not Available Not Available nicotine 14 mg/24 hr daily transderm al patch every 24 hours 03/26 completed Recorded 11/17/19 20 1:21PM by Natali Ibanez, Office Visit; Refill Quantity : 30; Patch; Not Available Not Available Not Available meclizine 50 mg tablet TAKE 1 TABLET ORALLY TWICE A DAY NEEDED FOR DIZZINES S 10/13 completed Not Available Not Available Not Available citalopra m 40 mg tablet TAKE 1 TABLET BY MOUTH IN THE MORNING active Not Available Not Available No t Available cetirizin e 10 mg tablet TAKE ONE CAPSULE ORALLY DAILY NEEDED FOR ALLERGY SYMPTOMS 09/05 completed Not Available Not Available Not Available azithromy marvel 250 mg tablet daily 03/26 completed 2 tabs PO on day 1 then 1 tab PO for 4 days Not Available Not Available Not Available clozapine 100 mg tablet TAKE 2 TABLETS BY MOUTH IN THE AM AND 4 TABLETS IN PM. active Not Available Not Available No t Available prednison e 20 mg tablet TAKE 1 TABLET BY MOUTH TWICE A DAY FOR FIVE DAYS 09/05 completed Not Available Not Available Not Available dexametha sone 6 mg tablet TAKE 1 TABLET BY MOUTH EVERY DAY FOR 5 DAYS 09/05 completed Not Available Not Available Not Available tramadol 50 mg tablet TAKE 1 TABLET BY MOUTH TWICE A DAY NEEDED FOR PAIN FOR 30 DAYS REFILL ON OR AFTER 30 DAYS active Not Available Not Available No t Available meloxicam 7.5 mg tablet TAKE 1 TABLET BY MOUTH TWICE A DAY NEEDED NEEDED FOR PAIN AND INFLAMAT ION active Not Available Not Available No t Available lorazepam 0.5 mg tablet TAKE 1 TABLET BY MOUTH DAILY NEEDED FOR ANXIETY active Not Available Not Available No t Available methocarb divina 750 mg tablet TAKE 1 TABLET BY MOUTH EVERY 6 HOURS NEEDED FOR SPASMS 10/13 completed Not Available Not Available Not Available DOK 100 mg capsule two times daily as needed for constipa tion 2021 active Not Available Not Available Not Avai lable baclofen 10 mg tablet TAKE 1 TABLET BY MOUTH TWICE A DAY NEEDED FOR PAIN 09/05 completed Not Available Not Available Not Available cephalexi n 500 mg capsule TAKE 1 CAPSULE BY MOUTH THREE TIMES A DAY FOR 7 DAYS 12/10 completed Not Available Not Available Not Available erythromy marvel 5 mg/gram (0.5 %) eye ointment APPLY ONCE INTO THE EYE(S) EVERY 6 HOURS FOR 5 DAYS 09/05 completed Not Available Not Available Not Available benztropi ne 1 mg tablet TAKE 1 TABLET BY MOUTH TWICE A DAY active Not Available Not Available No t Available gabapenti n 300 mg capsule TAKE 1 CAPSULE BY MOUTH EVERY 8 HOURS FOR CHRONIC PAIN active Not Available Not Available No t Available mirtazapi ne 45 mg tablet TAKE 1 TABLET BY MOUTH AT BEDTIME active Not Available Not Available No t Available monteluka st 10 mg tablet TAKE 1 TABLET BY MOUTH EVERY MORNING active Not Available Not Available No t Available lorazepam 1 mg tablet TAKE 1 TABLET BY MOUTH TWICE A DAY NEEDED active Not Available Not Available No t Available methylpre dnisolone 4 mg tablets in a dose pack TAKE 6 TABLETS ON DAY 1 DIRECTED ON PACKAGE AND DECREASE BY 1 TAB EACH DAY FOR A TOTAL OF 6 DAYS 09/05 completed Not Available Not Available Not Available albuterol sulfate HFA 90 mcg/actua tion aerosol inhaler INHALE 2 PUFFS EVERY 4 HOURS NEEDED FOR WHEEZE OR FOR SHORTNES S OF BREATH active Not Available Not Available No t Available fluticaso ne propionat e 50 mcg/actua tion nasal spray,terry pension USE 1 SPRAY IN EACH NOSTRIL TWICE DAILY active Not Available Not Available No t Available doxycycli ne hyclate 100 mg tablet TAKE 1 TABLET BY MOUTH TWICE A DAY FOR 10 DAYS 09/05 completed Not Available Not Available Not Available naproxen 500 mg tablet TAKE 1 TABLET BY MOUTH TWICE A DAY NEEDED FOR PAIN 09/05 completed Not Available Not Available Not Available amoxicill in 875 mg-potass ium clavulana te 125 mg tablet Take 1 tablet every 12 hours by oral route for 7 days. 10/13 completed Not Available Not Available Not Available hydroxyzi ne pamoate 25 mg capsule TAKE 1 CAPSULE BY MOUTH EVERY 8 HOURS NEEDED FOR ANXIETY 10/13 completed Not Available Not Available Not Available Ventolin 90 mcg/actua tion aerosol inhaler every four hours, as needed 2020 active Not Available Not Available Not Avai lable cyclobenz aprine 5 mg tablet TAKE 1 TABLET 3 TIMES A DAY BY ORAL ROUTE. active Not Available Not Available No t Available nitrofura ntoin monohydra te/macroc rystals 100 mg capsule Take 1 capsule every 12 hours by oral route for 5 days. 10/13 completed Not Available Not Available Not Available clozapine 50 mg tablet TAKE 1TAB BY MOUTH IN THE MORNING WITH 200 MG DOSE OF CLOZAPIN E. active Not Available Not Available No t Available meloxicam daily 09/05 completed Not Available Not Available Not Available Flonase daily 03/26 completed 0; Recorded 10/06/19 21 11:27AM by Natali Ibanez, Office Visit; Not Available Not Available Not Available citalopra m 09/05 completed Not Available Not Available Not Available oxybutyni n chloride daily 09/05 completed Not Available Not Available Not Available benztropi ne at bedtime 09/05 completed Not Available Not Available Not Available tramadol 09/05 completed Not Available Not Available Not Available Ativan 09/05 completed Not Available Not Available Not Available mirtazapi ne at bedtime 09/05 completed Not Available Not Available Not Available gabapenti n two times daily 09/[address] Martinez ([facility]) Not Available Not Available Not Available clozapine 200 mg tablet TAKE 1 TABLET BY MOUTH EVERY DAY IN THE MORNING active Not Available Not Available No t Available budesonid e-formote rol HFA 160 mcg-4.5 mcg/actua tion aerosol inhaler INHALE 2 PUFFS TWICE A DAY active Not Available Not Available No t Available dexlansop razole 60 mg capsule,b iphase delayed release TAKE 1 CAPSULE BY MOUTH EVERY DAY NEEDED FOR ACID REFLUX active Not Available Not Available No t Available Dexilant daily 09/05 completed stop prilosec Not Available Not Available Not Available Vitals Date Recorded Body height Body mass index (BMI) Body weight Oxygen saturation Oxygen saturation in Arterial blood by Pulse oximetry Heart rate Body temperature Systolic blood pressure Diastolic blood pressure Provider Name and Address Organization Details Last Updated DateTime 157.48 cm 31.1 kg/m2 32595.7 g 99 % 99 % 72 /min 98.6 [degF] 142 mm[Hg] 88 mm[Hg] Shyanna Camilo [facility] 5 11:03:56 Date Recorded Body height Body mass index (BMI) Body weight Oxygen saturation Oxygen saturation in Arterial blood by Pulse oximetry Body temperature Heart rate Systolic blood pressure Diastolic blood pressure Provider Name and Address Organization Details Last Updated DateTime 5 157.48 cm 33.1 kg/m2 52409.2 2 g 96 % 96 % 98.4 [degF] 95 /min 100 mm[Hg] 60 mm[Hg] Korin Murdock [facility] 5 12:45:20 Date Recorded Body height Body mass index (BMI) Body weight Oxygen saturation Oxygen saturation in Arterial blood by Pulse oximetry Heart rate Respiratory rate Body temperature Systolic blood pressure Diastolic blood pressure Provider Name and Address Organization Details Last Updated DateTime 5 157.48 cm 32.6 kg/m2 76426.5 4 g 95 % 95 % 103 /min 18 /min 98.2 [degF] 106 mm[Hg] 70 mm[Hg] Ayanna Russo [facility] 5 12:06:38 Date Recorded Body height Body mass index (BMI) Body weight Body temperature Heart rate Oxygen saturation Oxygen saturation in Arterial blood by Pulse oximetry Systolic blood pressure Diastolic blood pressure Provider Name and Address Organization Details Last Updated DateTime 5 157.48 cm 30.7 kg/m2 83993.5 2 g 98.3 [degF] 107 /min 94 % 94 % 128 mm[Hg] 72 mm[Hg] Maria Esther Verduzco [facility] 5 10:37:14 Date Recorded Body height Body mass index (BMI) Body weight Respiratory rate Oxygen saturation Oxygen saturation in Arterial blood by Pulse oximetry Heart rate Body temperature Systolic blood pressure Diastolic blood pressure Provider Name and Address Organization Details Last Updated DateTime 5 157.48 cm 29.9 kg/m2 69962.3 6 g 17 /min 96 % 96 % 85 /min 98.1 [degF] 112 mm[Hg] 68 mm[Hg] SAILAJA COHN [facility] 12:19:53 Social History Question Answer Notes LastModified by Organizat ion Details LastModified Time Tobacco Smoking Status Current Every Day Smoker Sabrina Chato [facility]rawal [facility] 03/26/2024 13:50:31 What Is Your Level Of Caffeine Consumption? Occasional [email or web address] Information not available 09/05/2024 What Was The Date Of Your Most Recent Tobacco Screening? 12/10/2024 [email or web address] Information not available 12/10/2024 What Is Your Current Pack Years? 10-19packyears Information not available 08/15/2024 At What Age Did You Start Smoking Tobacco? 13 Information not available 08/15/2024 How Much Tobacco Do You Smoke? 0.5 PPD [email or web address] Information not available 12/10/2024 How Many Years Have You Smoked Tobacco? 39 Information not available 08/15/2024 Sex: Unknown Functional Status Question Answer Note LastModified by Organizat ion Details LastModified Time Do you use any illicit or recreational drugs? No Information not available 03/26/2024 What is your level of alcohol consumption? None Information not available 03/26/2024 Mental Status None recorded. Family History Nothing Reported. Medical History No medical history recorded. Gynecological HistoryNo gynecological history recorded. Obstetrics History GPAL:G 0 P 0 0 0 0 Immunizations Vaccine Type Date Status Note Provider Nam e and Address Organization Details Recorded Time Influenza, split virus, trivalent, preservative 0 completed Not Available [facility] 02/17/2023 02:51:36 Influenza, split virus, trivalent, preservative 5 completed Not Available [facility] 02/17/2023 02:51:36 Influenza, split virus, trivalent, preservative 8 completed Not Available [facility] 02/17/2023 02:51:36 tetanus toxoid, adsorbed 5 completed Not Available [facility] 02/17/2023 02:51:36 Influenza, split virus, trivalent, preservative 7 completed Not Available [facility] 02/17/2023 02:51:36 Hep A-Hep B 4 completed Not Available [facility] 02/17/2023 02:51:36 Influenza, MDCK, quadrivalent, PF 1 [facility] 03/26/2024 13:48:11 zoster recombinant 2 completed [facility] 03/26/2024 13:48:11 zoster recombinant 2 completed [facility] Germaniler [facility] 03/26/2024 13:48:11 COVID-19, mRNA, LNP-S, PF, 100 mcg/0.5mL dose or 50 mcg/0.25mL dose 1 completed [facility] 03/26/2024 13:48:11 COVID-19, mRNA, LNP-S, PF, 30 mcg/0.3 mL dose 1 completed [facility] 03/26/2024 13:48:11 COVID-19, mRNA, LNP-S, PF, 30 mcg/0.3 mL dose 1 completed [facility] 03/26/2024 13:48:11 Pneumococcal conjugate PCV20, polysaccharide [id number] conjugate, adjuvant, PF 3 completed [facility] 03/26/2024 13:48:11 COVID-19, mRNA, LNP-S, PF, 50 mcg/0.5 mL 3 completed [facility] 03/26/2024 13:48:11 pneumococcal polysaccharide PPV23 5 completed [facility] 03/26/2024 13:48:11 Tdap 3 completed Sabrina agrawal, [facility] 03/26/2024 13:48:11 Tdap 1 completed Sabrina agrawal, [facility] 03/26/2024 13:48:11 Influenza, split virus, trivalent, preservative 2 completed Sabrina Reis null, [facility] 03/26/2024 13:48:11 Td (adult), 5 Lf tetanus toxoid, preservative free, adsorbed 3 completed Sabrina agrawal, [facility] 03/26/2024 13:48:11 Td (adult), 2 Lf tetanus toxoid, preservative free, adsorbed 4 completed Sabrina agrawal, [facility] 03/26/2024 13:48:11 Influenza, split virus, quadrivalent, PF 3 completed Sabrina agrawal, [facility] 03/26/2024 13:48:11 Influenza, MDCK, trivalent, PF 4 completed Sabrina Reis [facility] 03/26/2024 13:48:11 COVID-19, mRNA, LNP-S, PF, 50 mcg/0.5 mL 4 [facility] 09/05/2024 11:58:36 Past Encounters Encounter ID Performer Location Encounter Start Date Encounter Closed Date Diagnosis/Indication Diagnosis SNOMED-CT Code Diagnosis ICD10 Code Diagnosis Note [id number] YAEL TOVAR [facility] ([facility]) [address] [place] [address] [phone] 03/26/2024 13:35:32 03/29/2024 08:10:52 Cough 37488870 R05.9 Exposure t o SARS-CoV-2 215135864 Z20.822 Covid test negative. [id number] YAEL ESPINAL [facility] ([facility]) [address] [place] [address] [phone] 08/15/2024 10:44:50 08/15/2024 11:21:50 Acute maxillary sinusitis 45338695 J01.00 Continue current medication s. Increase po fluids. RTC with any new or worsening symptoms. [id number] Lino Marie MD [facility] ([facility]) [address] [place] [address] [phone] 08/21/2024 12:35:49 08/25/2024 08:39:35 Strain of muscle of chest wall 309161630 S29.011D Patient likely has a muscle strain currently no other concerning readings. Will provide additional medication support for the patient. Continue anti-infla mmatory medication s. Utilize warm moist heat. [id number] YAEL ESPINAL [facility] ([facility]) [address] [place] [address] [phone] 09/05/2024 11:53:49 09/05/2024 16:43:20 Dysuria 79584792 R30.0 Advised to drink clear fluids, reduce sexual activity, Tylenol for pain and take prescribed medication s as instructed . Patient encouraged to follow up within 1 week if not improving. [id number] Laith Elliott DO [facility] ([facility]) [address] [place] [address] [phone] 10/13/2024 10:26:19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
--- NOTE | 2025-01-19 19:49 | W.ED.EXTPRO ---
HPI - Extremity Problem General: Chief complaint: Extremity Injury, Lower Stated complaint: FALL Time Seen by Provider: 01/19/25 19:27 History of Present Illness: 59-year-old female presents emergency room by ambulance after she tripped and fell and injured her right knee. She has some abrasions on her right knee and some pain. No swelling. No deformity. She says it is hard to bear weight. Related Data Home Medications ?Medication ?Instructions ?Recorded ?Confirmed montelukast 10 mg tablet 10 mg PO QAM 10/28/24 01/16/25 rosuvastatin 20 mg tablet 20 mg PO QPM cholesterol 11/25/24 01/16/25 tramadol 50 mg tablet 50 mg PO BID PRN 12/31/24 01/16/25 Previous Rx's ?Medication ?Instructions ?Recorded mirtazapine 45 mg tablet 45 mg PO BEDTIME #30 tabs 04/02/24 citalopram 40 mg tablet (Celexa) 40 mg PO QAM #30 tabs 05/20/24 benztropine 1 mg tablet 1 mg PO BID #60 tabs 06/05/24 clozapine 100 mg tablet See Rx Instructions .Route 10/17/24 .COMPLEX #210 tabs meloxicam 7.5 mg tablet 7.5 mg PO BID PRN INFLAMATION AND 11/16/24 PAIN. #60 tabs albuterol sulfate 90 mcg/actuation 2 puff inhalation Q4H PRN 11/21/24 aerosol inhaler Shortness Of Breath Or Wheezing #8.5 grams budesonide-formoterol HFA 160 2 puff inhalation BID #10.2 grams 11/21/24 mcg-4.5 mcg/actuation aerosol inhaler (Symbicort) dexlansoprazole 60 mg 60 mg PO DAILY PRN Acid Reflux #90 11/21/24 capsule,biphase delayed release caps fluticasone propionate 50 2 spray intranasal BID PRN 11/21/24 mcg/actuation nasal allergies #48 grams spray,suspension methocarbamol 750 mg tablet 750 mg PO Q6H PRN spasms #20 tabs 12/22/24 gabapentin 300 mg capsule See Rx Instructions .Route 01/11/25 .COMPLEX #90 caps hydroxyzine HCl 25 mg tablet 25 mg PO BID PRN anxiety #60 tabs 01/16/25 cephalexin 500 mg capsule 500 mg PO TID 7 days #21 caps 01/18/25 Allergies Allergy/AdvReac Type Severity Reaction Status Date / Time ibuprofen Allergy Mild ALGY-Rash Verified 01/16/25 12:37 Review of Systems Narrative: Constitutional symptoms: Negative except as documented in HPI. Skin symptoms: Negative except as documented in HPI. Eye symptoms: Negative except as documented in HPI. ENMT symptoms: Negative except as documented in HPI. Respiratory symptoms: Negative except as documented in HPI. Cardiovascular symptoms: Negative except as documented in HPI. Gastrointestinal symptoms: Negative except as documented in HPI. Genitourinary symptoms: Negative except as documented in HPI. Musculoskeletal symptoms: Negative except as documented in HPI. Neurologic symptoms: Negative except as documented in HPI. Psychiatric symptoms: Negative except as documented in HPI. Endocrine symptoms: Negative except as documented in HPI. PFSH ED PFSH: Medical History Vitamin B12 deficiency starting B12 orally 12/14 Balance disorder Chronic low back pain Encounter for chronic pain management Tramadol; Legacy patient on this from Dr. 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 Prediabetes Chronic bronchitis with COPD (chronic obstructive pulmonary disease) Mixed hyperlipidemia Psychiatric care Osteoarthritis (arthritis due to wear and tear of joints) Chronic pain disorder Right shoulder, bilateral lower extremities Obesity (BMI 30.0-34.9) GERD (gastroesophageal reflux disease) Surgical History Status post bilateral salpingo-oophorectomy (BSO) S/P laparoscopic assisted vaginal hysterectomy (LAVH) Family History Other CAD (coronary artery disease) Hypertension Social History Smoking and tobacco/nicotine status: current every day tobacco/nicotine user cigarettes Packs smoked per day: 0.5 Alcohol intake: never Substance/Drug Use: former Date of last use: 2012 Former substance use details: meth; hx of IV use Household members: none Marital status: Number of children: 2 Highest education level completed: High School Graduate Current occupational status: disabled 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 Skin: warm and dry Head: Normocephalic Neck: Trachea midline Eye: Extraocular movements are intact. Ears, nose, mouth and throat: Oral mucosa moist Respiratory: Respirations are non-labored Musculoskeletal: Normal ROM. Abrasions on the lateral right knee. No obvious swelling or deformity. Gastrointestinal: Abdomen does not appear distended Neurological: Alert and oriented, No focal neurological deficit observed. Psychiatric: Cooperative, appropriate mood & affect. Course Vital Signs: Vital signs: Vital Signs Temperature 97.8 F 01/19/25 19:28 Pulse Rate 96 01/19/25 19:30 Respiratory Rate 16 01/19/25 19:28 Blood Pressure 111/73 01/19/25 19:30 Pulse Oximetry 96 01/19/25 19:30 Oxygen Delivery Me thod Room Air 01/19/25 19:30 MDM - Extremity (Nontraumatic) Medical Decision Making X-ray of the right knee: No obvious fractures or dislocations. Films were interpreted by myself the emergency room provider and pending final radiology review. Assessment and plan: Knee injury - Discharged home - Discussed plan with patient. Answered any questions. - Evaluation and treatment of this problem were appropriate in the emergency setting. XR interpretation done by ED provider, pending radiology final review Discharge Plan Discharge Patient Disposition: Home Clinical Impression: Knee injury Condition: Stable Prescriptions: No Action mirtazapine 45 mg tablet 45 mg PO BEDTIME Qty: 30 11RF clozapine 100 mg tablet See Rx Instructions .ROUTE .COMPLEX Qty: 210 11RF Rx Instructions: Take 3 tablets in the AM and 4 tablets in PM. tramadol 50 mg tablet 50 mg PO BID PRN citalopram [Celexa] 40 mg tablet 40 mg PO QAM Qty: 30 11RF benztropine 1 mg tablet 1 mg PO BID Qty: 60 11RF hydroxyzine HCl 25 mg tablet 25 mg PO BID PRN (Reason: anxiety) Qty: 60 5RF meloxicam 7.5 mg tablet 7.5 mg PO BID PRN (Reason: INFLAMATION AND PAIN.) Qty: 60 2RF budesonide-formoterol [Symbicort] 160-4.5 mcg/actuation HFA aerosol inhaler 2 puff inhalation BID Qty: 10.2 5RF fluticasone propionate 50 mcg/actuation spray,suspension 2 spray intranasal BID PRN (Reason: allergies) Qty: 48 1RF albuterol sulfate 90 mcg/actuation HFA aerosol inhaler 2 puff inhalation Q4H PRN (Reason: Shortness Of Breath Or Wheezing) Qty: 8.5 5RF dexlansoprazole 60 mg capsule,biphase delayed releas 60 mg PO DAILY PRN (Reason: Acid Reflux) Qty: 90 0RF gabapentin 300 mg capsule See Rx Instructions .ROUTE .COMPLEX Qty: 90 3RF Dose Instruction: TAKE 1 CAPSULE BY MOUTH EVERY 8 HOURS FOR CHRONIC PAIN Rx Instructions: TAKE 1 CAPSULE BY MOUTH EVERY 8 HOURS FOR CHRONIC PAIN cephalexin 500 mg capsule 500 mg PO TID 7 Days Qty: 21 0RF montelukast 10 mg tablet 10 mg PO QAM methocarbamol 750 mg tablet 750 mg PO Q6H PRN (Reason: spasms) Qty: 20 0RF rosuvastatin 20 mg tablet 20 mg PO QPM Discharge Orders: Discharge ED (Routine); Ordered 01/19/25 Ordered By: Carmela Nelson Referrals: Princess Glaser MD [Primary Care Provider, Family Practice] Discharge Diet: Usual diet Discharge Activity: Increase activity as tolerated Patient Instructions: Opioid Safety, Pain Management, Patient Portal & Jimmy Instructions Activity Restrictions/Additional Instructions: Thank you for choosing [facility] for your healthcare needs today. You have been screened and evaluated and felt safe for discharge. Health conditions do change or evolve sometimes and as such it is important that you follow up with your Primary Doctor to be re checked, 3-5 days is a general good time frame for follow up. You are always welcome to return to the ED for re assessment if your symptoms are worsening or you have new concerns Print Language: Guatemalan Coding Level of Care Code ED Egg Pasteurizer for 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
[2025-01-19 20:10] VITALS: BP 122/77; PULSE 91; O2SAT 95
== END 2025-01-19 20:18 | disposition home or self-care (01) ==
PROVIDERS: Emergency Provider Emergency Medicine; PCP Family Medicine
DX: S89.91XA Unspecified injury of right lower leg, initial encounter (principal); F17.210 Nicotine dependence, cigarettes, uncomplicated; J44.9 Chronic obstructive pulmonary disease, unspecified; W01.0XXA Fall on same level from slipping, tripping and stumbling without subsequent striking against object, initial encounter
CPT/HCPCS: 73562; 99283

== ENCOUNTER 2025-02-02 11:45 | Emergency (ER) | payer MEDICARE, MEDICAID, SELFPAY ==
[2024-10-15 11:27] VITALS: BP 132/88; BMI 31.9
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
--- OUTSIDE RECORDS SUMMARY | 2025-02-02 11:52 | XMS_ITS | Clinical Summary ---
Author Organization [facility] Address [address] 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
[2025-02-02 11:57] VITALS: BP 97/58; PULSE 103; RESP 16; TEMP 36.9; O2SAT 96; BMI 30.5
--- NOTE | 2025-02-02 13:21 | W.ED.EXTPRO ---
HPI - Extremity Problem General: Chief complaint: Extremity Injury, Lower Stated complaint: lower ext pain Time Seen by Provider: 02/02/25 13:01 Source: patient Mode of arrival: ambulatory Limitations: no limitations History of Present Illness: Patient is a 59-year-old female who is well-known to the emergency department here for left leg pain. Patient states she fell earlier today and now has leg pain. She has been ambulatory since the fall without difficulty or assistance. She has full range of motion to her left leg. She is requesting a shot of Toradol. She states she is working with her primary care provider regarding her balance/gait and doing home physical therapy. MD Complaint: extremity pain and joint pain Onset (ago): hour(s) Pain Consistency: constant Location: left and lower extremity Radiation: none Relieving factors: nothing Exacerbating factors: nothing Associated symptoms: Reports no associated symptoms; Deny chest pain, fever(s) or rash Related Data Home Medications ?Medication ?Instructions ?Recorded ?Confirmed montelukast 10 mg tablet 10 mg PO QAM 10/28/24 01/16/25 rosuvastatin 20 mg tablet 20 mg PO QPM cholesterol 11/25/24 01/16/25 tramadol 50 mg tablet 50 mg PO BID PRN 12/31/24 01/16/25 Previous Rx's ?Medication ?Instructions ?Recorded mirtazapine 45 mg tablet 45 mg PO BEDTIME #30 tabs 04/02/24 citalopram 40 mg tablet (Celexa) 40 mg PO QAM #30 tabs 05/20/24 benztropine 1 mg tablet 1 mg PO BID #60 tabs 06/05/24 clozapine 100 mg tablet See Rx Instructions .Route 10/17/24 .COMPLEX #210 tabs meloxicam 7.5 mg tablet 7.5 mg PO BID PRN INFLAMATION AND 11/16/24 PAIN. #60 tabs albuterol sulfate 90 mcg/actuation 2 puff inhalation Q4H PRN 11/21/24 aerosol inhaler Shortness Of Breath Or Wheezing #8.5 grams budesonide-formoterol HFA 160 2 puff inhalation BID #10.2 grams 11/21/24 mcg-4.5 mcg/actuation aerosol inhaler (Symbicort) dexlansoprazole 60 mg 60 mg PO DAILY PRN Acid Reflux #90 11/21/24 capsule,biphase delayed release caps fluticasone propionate 50 2 spray intranasal BID PRN 11/21/24 mcg/actuation nasal allergies #48 grams spray,suspension methocarbamol 750 mg tablet 750 mg PO Q6H PRN spasms #20 tabs 12/22/24 gabapentin 300 mg capsule See Rx Instructions .Route 01/11/25 .COMPLEX #90 caps hydroxyzine HCl 25 mg tablet 25 mg PO BID PRN anxiety #60 tabs 01/16/25 cephalexin 500 mg capsule 500 mg PO TID 7 days #21 caps 01/18/25 Allergies Allergy/AdvReac Type Severity Reaction Status Date / Time ibuprofen Allergy Mild ALGY-Rash Verified 01/16/25 12:37 Review of Systems Const: Denies: fever(s) Card: Denies: chest pain Resp: Denies: dyspnea GI: Denies: abdominal pain : Denies: flank pain, dysuria or hematuria Musc: Reports: extremity pain and joint pain; Denies: neck pain, back pain, extremity swelling, joint swelling, joint redness, joint warmth or joint stiffness Skin/Breast: Denies: rash Neuro: Denies: headache(s), numbness in extremities, weakness in extremities, sensory changes or dizziness PFSH ED PFSH: Medical History Vitamin B12 deficiency starting B12 orally 12/14 Balance disorder Chronic low back pain Encounter for chronic pain management Tramadol; Legacy patient on this from Dr. 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 Prediabetes Chronic bronchitis with COPD (chronic obstructive pulmonary disease) Mixed hyperlipidemia Psychiatric care Osteoarthritis (arthritis due to wear and tear of joints) Chronic pain disorder Right shoulder, bilateral lower extremities Obesity (BMI 30.0-34.9) GERD (gastroesophageal reflux disease) Surgical History Status post bilateral salpingo-oophorectomy (BSO) S/P laparoscopic assisted vaginal hysterectomy (LAVH) Family History Other CAD (coronary artery disease) Hypertension Social History Smoking and tobacco/nicotine status: current every day tobacco/nicotine user cigarettes Packs smoked per day: 0.5 Alcohol intake: never Substance/Drug Use: former Date of last use: 2012 Former substance use details: meth; hx of IV use Household members: none Marital status: Number of children: 2 Highest education level completed: High School Graduate Current occupational status: disabled 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; Do you think of yourself as: Straight/Heterosexual Female Reproductive History: Para: 2 Physical Exam Const: COMMON NORMALS: no acute distress, average body habitus, patient oriented x3, no limitations, healthy appearing, alert and well nourished GENERAL APPEARANCE: cooperative ORIENTATION/CONSCIOUSNESS: Yes awake, Yes oriented to person, Yes oriented to place and Yes oriented to time HENMT: COMMON NORMALS: normocephalic and atraumatic HEAD & SCALP: normal to inspection, normocephalic and atraumatic FACE & SINUS: normal facial exam Resp: COMMON NORMALS: normal respiratory effort and clear to auscultation bilaterally AUSCULTATION: clear to auscultation bilaterally Cardio: COMMON NORMALS: regular rate and regular rhythm RATE: regular rate RHYTHM: regular rhythm Back/Pelvis: COMMON NORMALS: thoracic and lumbar spine normal to inspection and no thoracic nor lumbar tenderness Extremity: COMMON NORMALS: normal to inspection, full ROM, capillary refill normal, no joint enlargement, no clubbing, cyanosis or edema, no calf tenderness and no pedal edema GENERAL: Yes normal exam except as noted OTHER: full painless ROM L LE; NV intact Neuro: COMMON NORMALS: patient oriented x3, moves all extremities, no focal motor deficits and no sensory deficits noted SENSORIUM/ORIENTATION: Yes alert, Yes oriented to person, Yes oriented to place and Yes oriented to time Skin: TRAUMA: no lacerations or abrasions Course Vital Signs: Vital signs: Vital Signs Temperature 98.4 F 02/02/25 11:57 Pulse Rate 103 H 02/02/25 11:57 Respiratory Rate 16 02/02/25 11:57 Blood Pressure 97/58 02/02/25 11:57 Pulse Oximetry 96 02/02/25 11:57 Oxygen Delivery Me thod Room Air 02/02/25 11:57 MDM - Extremity (Nontraumatic) Medical Decision Making Based on her physical exam, there is no indication for emergent x-rays. She has full range of motion of her left lower extremity. She has been ambulatory without difficulty or assistance since her fall. Patient will be allowed discharge with recommendations to follow-up with primary care which she does have an appointment with next week. Medical Records I reviewed the patient's medical records. No radiology studies performed this visit Discharge Plan Discharge Patient Disposition: Home Clinical Impression: Fall, Contusion of left lower extremity Condition: Stable Prescriptions: No Action mirtazapine 45 mg tablet 45 mg PO BEDTIME Qty: 30 11RF clozapine 100 mg tablet See Rx Instructions .ROUTE .COMPLEX Qty: 210 11RF Rx Instructions: Take 3 tablets in the AM and 4 tablets in PM. tramadol 50 mg tablet 50 mg PO BID PRN citalopram [Celexa] 40 mg tablet 40 mg PO QAM Qty: 30 11RF benztropine 1 mg tablet 1 mg PO BID Qty: 60 11RF hydroxyzine HCl 25 mg tablet 25 mg PO BID PRN (Reason: anxiety) Qty: 60 5RF meloxicam 7.5 mg tablet 7.5 mg PO BID PRN (Reason: INFLAMATION AND PAIN.) Qty: 60 2RF budesonide-formoterol [Symbicort] 160-4.5 mcg/actuation HFA aerosol inhaler 2 puff inhalation BID Qty: 10.2 5RF fluticasone propionate 50 mcg/actuation spray,suspension 2 spray intranasal BID PRN (Reason: allergies) Qty: 48 1RF albuterol sulfate 90 mcg/actuation HFA aerosol inhaler 2 puff inhalation Q4H PRN (Reason: Shortness Of Breath Or Wheezing) Qty: 8.5 5RF dexlansoprazole 60 mg capsule,biphase delayed releas 60 mg PO DAILY PRN (Reason: Acid Reflux) Qty: 90 0RF gabapentin 300 mg capsule See Rx Instructions .ROUTE .COMPLEX Qty: 90 3RF Dose Instruction: TAKE 1 CAPSULE BY MOUTH EVERY 8 HOURS FOR CHRONIC PAIN Rx Instructions: TAKE 1 CAPSULE BY MOUTH EVERY 8 HOURS FOR CHRONIC PAIN cephalexin 500 mg capsule 500 mg PO TID 7 Days Qty: 21 0RF montelukast 10 mg tablet 10 mg PO QAM methocarbamol 750 mg tablet 750 mg PO Q6H PRN (Reason: spasms) Qty: 20 0RF rosuvastatin 20 mg tablet 20 mg PO QPM Discharge Orders: Discharge ED (Routine); Ordered 02/02/25 Ordered By: Zayda Villavicencio Referrals: Princess Glaser MD [Primary Care Provider, Family Practice] Patient Instructions: Patient Portal & Jimmy Instructions Print Language: Angolan Coding Level of Care Code ED Distribution Technician for 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
== END 2025-02-02 13:45 | disposition home or self-care (01) ==
PROVIDERS: Emergency Provider Physician Assistant; PCP Family Medicine
DX: S80.12XA Contusion of left lower leg, initial encounter (principal); W19.XXXA Unspecified fall, initial encounter; F17.210 Nicotine dependence, cigarettes, uncomplicated; J44.9 Chronic obstructive pulmonary disease, unspecified; E78.2 Mixed hyperlipidemia
CPT/HCPCS: 96372; 99284; J1885

== ENCOUNTER 2025-02-04 09:21 | Emergency (ER) | payer MEDICARE, MEDICAID, SELFPAY ==
[2024-10-15 11:27] VITALS: BP 132/88; BMI 31.9
[2025-02-04 09:26] VITALS: BP 113/84; PULSE 104; RESP 16; O2SAT 94; BMI 31.1
--- NOTE | 2025-02-04 09:30 | W.ED.ANXIETY ---
HPI - Anxiety General: Chief Complaint: Anxiety Stated Complaint: MHE Time Seen by Provider: 02/04/25 09:28 Source: patient and EMS Mode of arrival: EMS Limitations: no limitations History of Present Illness: 59-year-old female is well-known to the ER states she has been having anxiety has a long history of anxiety she states she wanted to get a mental health eval she denies being SI or HI. She has had previous psych admissions she is in no distress here has no other complaints Associated symptoms: Deny chest pain, chills, fever(s), headache(s), nausea or vomiting Related Data Home Medications ?Medication ?Instructions ?Recorded ?Confirmed montelukast 10 mg tablet 10 mg PO QAM 10/28/24 02/03/25 rosuvastatin 20 mg tablet 20 mg PO QPM cholesterol 11/25/24 02/03/25 tramadol 50 mg tablet 50 mg PO BID PRN 12/31/24 02/03/25 Previous Rx's ?Medication ?Instructions ?Recorded mirtazapine 45 mg tablet 45 mg PO BEDTIME #30 tabs 04/02/24 citalopram 40 mg tablet (Celexa) 40 mg PO QAM #30 tabs 05/20/24 benztropine 1 mg tablet 1 mg PO BID #60 tabs 06/05/24 clozapine 100 mg tablet See Rx Instructions .Route 10/17/24 .COMPLEX #210 tabs meloxicam 7.5 mg tablet 7.5 mg PO BID PRN INFLAMATION AND 11/16/24 PAIN. #60 tabs albuterol sulfate 90 mcg/actuation 2 puff inhalation Q4H PRN 11/21/24 aerosol inhaler Shortness Of Breath Or Wheezing #8.5 grams budesonide-formoterol HFA 160 2 puff inhalation BID #10.2 grams 11/21/24 mcg-4.5 mcg/actuation aerosol inhaler (Symbicort) dexlansoprazole 60 mg 60 mg PO DAILY PRN Acid Reflux #90 11/21/24 capsule,biphase delayed release caps fluticasone propionate 50 2 spray intranasal BID PRN 11/21/24 mcg/actuation nasal allergies #48 grams spray,suspension methocarbamol 750 mg tablet 750 mg PO Q6H PRN spasms #20 tabs 12/22/24 gabapentin 300 mg capsule See Rx Instructions .Route 01/11/25 .COMPLEX #90 caps hydroxyzine HCl 25 mg tablet 25 mg PO BID PRN anxiety #60 tabs 01/16/25 cephalexin 500 mg capsule 500 mg PO TID 7 days #21 caps 01/18/25 Allergies Allergy/AdvReac Type Severity Reaction Status Date / Time ibuprofen Allergy Mild ALGY-Rash Verified 02/03/25 11:29 Review of Systems Const: Denies: fever(s), chills, body aches or change in appetite ENMT: Denies: throat pain or dental pain Card: Denies: chest pain Resp: Denies: dyspnea GI: Denies: abdominal pain, nausea, vomiting or diarrhea Musc: Denies: neck pain or back pain Skin/Breast: Denies: rash Neuro: Denies: headache(s) Psych: Reports: anxiety PFSH ED PFSH: Medical History Vitamin B12 deficiency starting B12 orally 12/14 Balance disorder Chronic low back pain Encounter for chronic pain management Tramadol; [facility] patient on this from Dr. 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 Prediabetes Chronic bronchitis with COPD (chronic obstructive pulmonary disease) Mixed hyperlipidemia Psychiatric care Osteoarthritis (arthritis due to wear and tear of joints) Chronic pain disorder Right shoulder, bilateral lower extremities Obesity (BMI 30.0-34.9) GERD (gastroesophageal reflux disease) Surgical History Status post bilateral salpingo-oophorectomy (BSO) S/P laparoscopic assisted vaginal hysterectomy (LAVH) Family History Other CAD (coronary artery disease) Hypertension Social History Smoking and tobacco/nicotine status: never used tobacco/nicotine Alcohol intake: never Substance/Drug Use: former Date of last use: 2012 Former substance use details: meth; hx of IV use Household members: none Marital status: Number of children: 2 Highest education level completed: High School Graduate Current occupational status: disabled 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; Do you think of yourself as: Straight/Heterosexual Female Reproductive History: Para: 2 Physical Exam Const: COMMON NORMALS: no acute distress, patient oriented x3 and healthy appearing HENMT: COMMON NORMALS: normocephalic and atraumatic HEAD & SCALP: normocephalic and atraumatic Eye: COMMON NORMALS: conjunctivae normal CONJUNCTIVA: Yes conjunctivae normal Neck/C-Spine: COMMON NORMALS: full ROM and supple Chest: COMMONS NORMALS: normal inspection of the chest Resp: COMMON NORMALS: normal respiratory effort Cardio: COMMON NORMALS: regular rate, regular rhythm and No murmurs present (Cardio) RATE: regular rate RHYTHM: regular rhythm Extremity: COMMON NORMALS: normal to inspection and full ROM Neuro: COMMON NORMALS: patient oriented x3, moves all extremities and no focal motor deficits Psych: COMMON NORMALS: mental status grossly normal, Normal thought process present and cooperative THOUGHT PROCESS: Normal thought process present Skin: COMMON NORMALS: no rashes or lesions noted and no wounds GENERAL SKIN EXAM: no rashes or lesions noted Course Vital Signs: Vital signs: Vital Signs Pulse Rate 104 H 02/04/25 09:26 Respiratory Rate 16 02/04/25 09:26 Blood Pressure 113/84 02/04/25 09:26 Pulse Oximetry 94 02/04/25 09:26 Oxygen Delivery Me thod Room Air 02/04/25 09:26 MDM - Anxiety Medical Decision Making Patient presents here with anxiety she is not suicidal or homicidal she is well-appearing here we will discharge her to the crisis center Medical Records I reviewed the patient's medical records. No radiology studies performed this visit Discharge Plan Discharge Patient Disposition: Home Clinical Impression: Anxiety Condition: Stable Prescriptions: No Action mirtazapine 45 mg tablet 45 mg PO BEDTIME Qty: 30 11RF clozapine 100 mg tablet See Rx Instructions .ROUTE .COMPLEX Qty: 210 11RF Rx Instructions: Take 3 tablets in the AM and 4 tablets in PM. tramadol 50 mg tablet 50 mg PO BID PRN citalopram [Celexa] 40 mg tablet 40 mg PO QAM Qty: 30 11RF benztropine 1 mg tablet 1 mg PO BID Qty: 60 11RF hydroxyzine HCl 25 mg tablet 25 mg PO BID PRN (Reason: anxiety) Qty: 60 5RF meloxicam 7.5 mg tablet 7.5 mg PO BID PRN (Reason: INFLAMATION AND PAIN.) Qty: 60 2RF budesonide-formoterol [Symbicort] 160-4.5 mcg/actuation HFA aerosol inhaler 2 puff inhalation BID Qty: 10.2 5RF fluticasone propionate 50 mcg/actuation spray,suspension 2 spray intranasal BID PRN (Reason: allergies) Qty: 48 1RF albuterol sulfate 90 mcg/actuation HFA aerosol inhaler 2 puff inhalation Q4H PRN (Reason: Shortness Of Breath Or Wheezing) Qty: 8.5 5RF dexlansoprazole 60 mg capsule,biphase delayed releas 60 mg PO DAILY PRN (Reason: Acid Reflux) Qty: 90 0RF gabapentin 300 mg capsule See Rx Instructions .ROUTE .COMPLEX Qty: 90 3RF Dose Instruction: TAKE 1 CAPSULE BY MOUTH EVERY 8 HOURS FOR CHRONIC PAIN Rx Instructions: TAKE 1 CAPSULE BY MOUTH EVERY 8 HOURS FOR CHRONIC PAIN cephalexin 500 mg capsule 500 mg PO TID 7 Days Qty: 21 0RF montelukast 10 mg tablet 10 mg PO QAM methocarbamol 750 mg tablet 750 mg PO Q6H PRN (Reason: spasms) Qty: 20 0RF rosuvastatin 20 mg tablet 20 mg PO QPM Discharge Orders: Discharge ED (Routine); Ordered 02/04/25 Ordered By: Kade Smith Referrals: Princess Glaser MD [Primary Care Provider, Family Practice] Discharge Diet: Advance as tolerated Discharge Activity: Resume usual activity Patient Instructions: Anxiety (ED) Print Language: [place] Citizen Coding Level of Care Code ED Curb And Gutter Laborer for 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
[2025-02-04 09:34] VITALS: BP 104/70; PULSE 99; O2SAT 94
== END 2025-02-04 09:36 | disposition home or self-care (01) ==
LOC: ER 09:30
PROVIDERS: Emergency Provider Emergency Medicine; PCP Family Medicine
DX: F41.9 Anxiety disorder, unspecified (principal); J44.9 Chronic obstructive pulmonary disease, unspecified; E78.2 Mixed hyperlipidemia
CPT/HCPCS: 99283

== ENCOUNTER → 2025-02-05 08:40 | Outpatient (BNVA) | payer MEDICARE, SELFPAY ==
[2024-10-15 11:27] VITALS: BP 132/88; BMI 31.9
== END ==
PROVIDERS: PCP Family Medicine; Visit Provider Psychiatry & Neurology Psychiatry
DX: F20.89 Other schizophrenia (principal); Z79.899 Other long term (current) drug therapy
CPT/HCPCS: 85007; 85027

== ENCOUNTER → 2025-02-17 10:39 | Outpatient (BNVA) | payer MEDICARE, SELFPAY ==
[2024-10-15 11:27] VITALS: BP 132/88; BMI 31.9
== END ==
PROVIDERS: PCP Family Medicine; Visit Provider Family Medicine
DX: R39.9 Unspecified symptoms and signs involving the genitourinary system (principal)
CPT/HCPCS: 81000

== ENCOUNTER 2025-02-22 09:26 | Emergency (ER) | payer MEDICARE, MEDICAID, SELFPAY ==
[2024-10-15 11:27] VITALS: BP 132/88; BMI 31.9
[2025-02-22 09:27] VITALS: BP 104/69; PULSE 99; RESP 16; TEMP 36.9; O2SAT 94; BMI 29.2
--- NOTE | 2025-02-22 09:29 | ECG_ITS ---
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
--- NOTE | 2025-02-22 09:35 | ED_ITS ---
HPI - Dizziness 2 General: Chief Complaint: Dizziness Stated Complaint: syncope Time Seen by Provider: 02/22/25 09:27 Source: patient and EMS Mode of arrival: EMS Limitations: no limitations History of Present Illness: HPI Narrative: 59-year-old female is well-known to the ER states that she had a syncopal event today. She has had multiple of these in the past where she states she feels like she is blacking out. Denies any headache denies any seizure did not hit her head denies any chest pain she is well-appearing here. Associated symptoms: Reports syncope; Denies chest pain, chills, headache(s), nausea or vomiting Related Data Home Medications ?Medication ?Instructions ?Recorded ?Confirmed montelukast 10 mg tablet 10 mg PO QAM 10/28/24 rosuvastatin 20 mg tablet 20 mg PO QPM cholesterol 01/1402/18/25 Previous Rx's ?Medication ?Instructions ?Recorded mirtazapine 45 mg tablet 45 mg PO BEDTIME #30 tabs citalopram 40 mg tablet (Celexa) 40 mg PO QAM #30 tabs 05/20/24 benztropine 1 mg tablet 1 mg PO BID #60 tabs 4 albuterol sulfate 90 mcg/actuation 2 puff inhalation Q 4H PRN 11/21/24 aerosol inhaler Shortness Of Breath Or Wheez ing #8.5 grams budesonide-formoterol HFA 160 2 puff inhalation BID #1 0.2 grams 11/21/24 mcg-4.5 mcg/actuation aerosol inhaler (Symbicort) fluticasone propionate 50 2 spray intranasal BID PRN 0 11/21/24 mcg/actuation nasal allergies #48 grams spray,suspension gabapentin 300 mg capsule See Rx Instructions .Route 0 01/11/25 .COMPLEX #90 caps hydroxyzine HCl 25 mg tablet 25 mg PO BID PRN anxiety #60 tabs 01/16/25 clozapine 100 mg tablet See Rx Instructions PO .COMP JACLYN 02/05/25 #180 tabs meloxicam 7.5 mg tablet 7.5 mg PO BID PRN INFLAMATIO N AND 02/09/25 PAIN. #60 tabs tramadol 50 mg tablet 50 mg PO BID PRN pain 30 day s #60 02/10/25 tabs oxybutynin chloride 15 mg See Rx Instructions .Route 0 02/11/25 tablet,extended release 24 hr .COMPLEX #90 tabs cephalexin 500 mg capsule 500 mg PO TID 5 days #15 cap s 02/17/25 dexlansoprazole 60 mg 60 mg PO DAILY PRN Acid Refl ux #90 02/19/25 capsule,biphase delayed release caps Allergies Allergy/AdvReac Type Severity Reaction Status Date / Time ibuprofen Allergy Mild ALGY-Rash Verified 02/18/25 09:23 Review of Systems 2 Const: Denies: fever(s), chills, body aches or change in appetite ENMT: Denies: throat pain or dental pain Card: Reports: syncope; Denies: chest pain Resp: Denies: dyspnea GI: Denies: abdominal pain, nausea, vomiting or diarrhea Musc: Denies: neck pain or back pain Skin/Breast: Denies: rash Neuro: Denies: headache(s) PFSH ED 2 PFSH: Medical History (Updated 02/22/25 @ 10:05 by Kade Smith MD) Vitamin B12 deficiency starting B12 orally 12/14 Balance disorder Chronic low back pain Encounter for chronic pain management Tramadol; [facility] patient on this from Dr. 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 Prediabetes Chronic bronchitis with COPD (chronic obstructive pulmonary disease) Mixed hyperlipidemia Psychiatric care Osteoarthritis (arthritis due to wear and tear of joints) Chronic pain disorder Right shoulder, bilateral lower extremities Obesity (BMI 30.0-34.9) GERD (gastroesophageal reflux disease) Surgical History Status post bilateral salpingo-oophorectomy (BSO) S/P laparoscopic assisted vaginal hysterectomy (LAVH) Family History Other CAD (coronary artery disease) Hypertension Social History Smoking and tobacco/nicotine status: never used tobacco/nicotine Alcohol intake: never Substance/Drug Use: former Date of last use: 2012 Former substance use details: meth; hx of IV use Household members: none Marital status: Number of children: 2 Highest education level completed: High School Graduate Current occupational status: disabled 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; Do you think of yourself as: Straight/Heterosexual Female Reproductive History: Para: 2 Physical Exam 2 Const: COMMON NORMALS: no acute distress, patient oriented x3 and healthy appearing HENMT: COMMON NORMALS: normocephalic and atraumatic HEAD & SCALP: n ormocephalic and atraumatic Eye: COMMON NORMALS: Equal, round and reactive pupils present and EOMs intact bilaterally PUPIL: Yes Equal, round and reactive pupils present Neck/C-Spine: COMMON NORMALS: full ROM and supple Chest: COMMONS NORMALS: normal inspection of the chest and normal palpation of entire chest wall Resp: COMMON NORMALS: normal respiratory effort, No retractions, No use of accessory muscles and clear to auscultation bilaterally AUSCULTATION: clear to auscultation bilaterally Cardio: COMMON NORMALS: regular rate, regular rhythm and No murmurs present (Cardio) RATE: regular rate RHYTHM: regular rhythm GI: COMMON NORMALS: Normal to inspection, nondistended, normoactive bowel sounds present, Soft to palpation, non-tender and no masses PALPATION: Yes Soft to palpation Extremity: COMMON NORMALS: normal to inspection and full ROM Neuro: COMMON NORMALS: patient oriented x3, moves all extremities and no focal motor deficits Psych: COMMON NORMALS: mental status grossly normal, Normal thought process present and cooperative THOUGHT PROCESS: Normal thought process present Skin: COMMON NORMALS: no rashes or lesions noted and no wounds GENERAL SKIN EXAM: no rashes or lesions noted Course 2 Vital Signs: Vital signs: Vital Signs Temperature 98.5 F 02/22/25 09:27 Pulse Rate 78 02/22/25 10:16 Respiratory Rate 16 02/22/25 09:27 Blood Pressure 108/74 02/22/25 10:16 Pulse Oximetry 96 02/22/25 10:16 Oxygen Delivery Me thod Room Air 02/22/25 09:36 MDM - Dizziness Medical Decision Making Patient presents here with syncopal event she has been well-appearing here blood works normal vitals are normal she stable for discharge follow-up PCP return if worsening. Medical Records I reviewed the patient's medical records. Lab Data I reviewed the patient's lab results. 02/22/25 09:07 02/22/25 09:07 Laboratory Results WBC 8.80 10^3/uL (3.29-11.43) 02/22/25 09:07 RBC 4.43 10^6/uL (3.85-5.65) 02/22/25 09:07 Hgb 13.00 g/dL (11.27-16.99) 02/22/25 09:07 Hct 40.8 % (36-47) 02/22/25 09:07 MCV 92.1 fl (85-98) 02/22/25 09:07 MCH 29.3 pg (27-33) 02/22/25 09:07 MCHC 31.9 g/dL (30-55) 02/22/25 09:07 RDW 14.1 % (12.1-15.1) 02/22/25 09:07 Plt Count 271 10^3/cmm (157-399) 02/22/25 09:07 MPV 9.6 fL (7.4-10.4) 02/22/25 09:07 Neut % (Auto) 75.7 % 02/22/25 09:07 Lymph % (Auto) 16.8 % 02/22/25 09:07 [place] % (Auto) 7.0 % 02/22/25 09:07 Eos % (Auto) 0.0 % 02/22/25 09:07 Baso % (Auto) 0.2 % 02/22/25 09:07 Neut # (Auto) 6.65 10^3/uL (1.8-7.7) 02/22/25 09:07 Lymph # (Auto) 1.5 10^3/uL (0.8-4.8) 02/22/25 09:07 [place] # (Auto) 0.6 10^3/uL (0.2-0.9) 02/22/25 09:07 Eos # (Auto) 0.0 10^3/uL (0.0-0.8) 02/22/25 09:07 Baso # (Auto) 0.0 10^3/uL (0.0-0.1) 02/22/25 09:07 Nucleated RBC % (auto) 0 % 02/22/25 09:07 Nucleated RBCs # 0.0 /100WBC 02/22/25 09:07 Sodium 140 mmol/L (136-145) 02/22/25 09:07 Potassium 3.9 mmol/L (3.5-5.1) 02/22/25 09:07 Chloride 104 mmol/L (98-107) 02/22/25 09:07 Carbon Dioxide 26 mmol/L (22-29) 02/22/25 09:07 Anion Gap 13.9 (5-19) 02/22/25 09:07 BUN 8 mg/dL (8-23) 02/22/25 09:07 Creatinine 0.7 mg/dL (0.5-0.9) 02/22/25 09:07 GFR Calculation 85.4 mL/min (90-130) L 02/22/25 09:07 Glucose 153 mg/dL (65-115) H 02/22/25 09:07 Calculated Osmolality 291 mOsm/kg (285-295) 02/22/25 09:07 Calcium 9.3 mg/dL (8.5-10.5) 02/22/25 09:07 Total Bilirubin 0.2 mg/dL (0.15-1.2) 02/22/25 09:07 AST 31 U/L (0-32) 02/22/25 09:07 ALT 35 U/L (0-33) H 02/22/25 09:07 Alkaline Phosphatase 163 U/L (35-105) H 02/22/25 09:07 Total Protein 7.1 g/dL (6.6-8.7) 02/22/25 09:07 Albumin 4.2 g/dL (3.5-5.2) 02/22/25 09:07 Globulin 2.9 g/dL (1.3-4.6) 02/22/25 09:07 All radiology interpretation(s) finalized by discharge EKG Data EKG 1: I personally reviewed and interpreted this EKG as follows: EKG interpretation date: 02/22/25 EKG interpretation time: 09:29 Interpretation: nsr hr [address] elevation qrs 89 qtc 427 Discharge Plan Discharge Patient Disposition: Home Clinical Impression: Syncope Condition: Stable Prescriptions: No Action mirtazapine 45 mg tablet 45 mg PO BEDTIME Qty: 30 11RF cephalexin 500 mg capsule 500 mg PO TID 5 Days Qty: 15 0RF clozapine 100 mg tablet See Rx Instructions PO .COMPLEX Qty: 180 11RF Rx Instructions: Take 2 tabs in the morning and 4 tabs in the evening. citalopram [Celexa] 40 mg tablet 40 mg PO QAM Qty: 30 11RF benztropine 1 mg tablet 1 mg PO BID Qty: 60 11RF hydroxyzine HCl 25 mg tablet 25 mg PO BID PRN (Reason: anxiety) Qty: 60 5RF budesonide-formoterol [Symbicort] 160-4.5 mcg/actuation HFA aerosol inhaler 2 puff inhalation BID Qty: 10.2 5RF fluticasone propionate 50 mcg/actuation spray,suspension 2 spray intranasal BID PRN (Reason: allergies) Qty: 48 1RF albuterol sulfate 90 mcg/actuation HFA aerosol inhaler 2 puff inhalation Q4H PRN (Reason: Shortness Of Breath Or Wheezing) Qty: 8.5 5RF gabapentin 300 mg capsule See Rx Instructions .ROUTE .COMPLEX Qty: 90 3RF Dose Instruction: TAKE 1 CAPSULE BY MOUTH EVERY 8 HOURS FOR CHRONIC PAIN Rx Instructions: TAKE 1 CAPSULE BY MOUTH EVERY 8 HOURS FOR CHRONIC PAIN meloxicam 7.5 mg tablet 7.5 mg PO BID PRN (Reason: INFLAMATION AND PAIN.) Qty: 60 2RF tramadol 50 mg tablet 50 mg PO BID PRN (Reason: pain) 30 Days Qty: 60 0RF oxybutynin chloride 15 mg tablet extended release 24hr See Rx Instructions .ROUTE .COMPLEX Qty: 90 1RF Dose Instruction: TAKE 1 TABLET BY MOUTH AT BEDTIME Rx Instructions: TAKE 1 TABLET BY MOUTH AT BEDTIME dexlansoprazole 60 mg capsule,biphase delayed releas 60 mg PO DAILY PRN (Reason: Acid Reflux) Qty: 90 0RF montelukast 10 mg tablet 10 mg PO QAM rosuvastatin 20 mg tablet 20 mg PO QPM Discharge Orders: Discharge ED (Routine); Ordered 02/22/25 Ordered By: Kade Smith Referrals: Princess Glaser MD [Primary Care Provider, Family Practice] - 4-7 days Discharge Diet: Advance as tolerated Discharge Activity: Resume usual activity Patient Instructions: Syncope (ED) Print Language: Setswana Coding Level of Care Code ED Art Objects Supervisor for 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
[2025-02-22 09:36] VITALS: BP 104/69; O2SAT 93
--- OUTSIDE RECORDS SUMMARY | 2025-02-22 09:36 | XMS_ITS | Clinical Summary ---
Author Organization [facility] Address [address] 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
[2025-02-22 09:38] LABS: Hematocrit 40.8 % (36-47); Hemoglobin 13.00 g/dL (11.27-16.99); Mean Corpuscular HGB Conc 31.9 g/dL (30-55); Mean Corpuscular Hemoglobin 29.3 pg (27-33); Mean Corpuscular Volume 92.1 fl (85-98); Nucleated Red Blood Cells % 0 %; Platelet Count 271 10^3/cmm (157-399); Red Blood Count 4.43 10^6/uL (3.85-5.65); White Blood Count 8.80 10^3/uL (3.29-11.43)
[2025-02-22 09:59] LABS: Alanine Aminotransferase 35 U/L (0-33); Albumin Level 4.2 g/dL (3.5-5.2); Alkaline Phosphatase 163 U/L (35-105); Anion Gap 13.9 (5-19); Aspartate Amino Transferase 31 U/L (0-32); Blood Urea Nitrogen 8 mg/dL (8-23); Calcium 9.3 mg/dL (8.5-10.5); Carbon Dioxide 26 mmol/L (22-29); Chloride 104 mmol/L (98-107); Creatinine Clr Calc Pharmacy 79.7246; Globulin 2.9 g/dL (1.3-4.6); Glucose 153 mg/dL (65-115); Osmolality Calculated 291 mOsm/kg (285-295); Potassium 3.9 mmol/L (3.5-5.1); Sodium 140 mmol/L (136-145); Total Protein 7.1 g/dL (6.6-8.7)
[2025-02-22 10:03] VITALS: BP 104/71
[2025-02-22 10:16] VITALS: BP 108/74; PULSE 78; O2SAT 96
== END 2025-02-22 10:17 | disposition home or self-care (01) ==
PROVIDERS: Emergency Provider Emergency Medicine; PCP Family Medicine
DX: R55 Syncope and collapse (principal); J44.9 Chronic obstructive pulmonary disease, unspecified; E78.2 Mixed hyperlipidemia
CPT/HCPCS: 80053; 85025; 93005; 99284

== ENCOUNTER 2025-03-24 09:50 | Outpatient (CLI) | payer MEDICARE, MEDICAID, SELFPAY ==
[2024-10-15 11:27] VITALS: BP 132/88; BMI 31.9
--- NOTE | 2025-03-24 10:00 | CT_ITS ---
WS: [id number] LDCT LUNG CANCER SCREENING TECHNIQUE: Noncontrast CT of the chest with coronal and sagittal reformatted images. CLINICAL INFORMATION: screening; ex smoker quit 2024; 23 pk yr hx COMPARISON: None. DLP: 69.59 mGy.cm DIvol: Mean CTDIvol: 1.60 (mGy) All CT scans at [facility] use at least one of these dose optimization techniques: automated exposure control; mA and/or kV adjustment per patient size (includes targeted exams where dose is matched to clinical indication); or iterative reconstruction. FINDINGS: Mild to moderate chronic emphysematous changes. Subsegmental atelectasis in the lingula Groundglass opacity RIGHT lower lobe measuring 1.7 x 1.9 cm may be infectious or inflammatory but indeterminate. Recommend 3-month follow-up. Hazy groundglass nodule RIGHT lower lobe measuring 6 mm. Additional hazy groundglass opacity RIGHT upper lobe measuring 1.6 x 1.0 cm Normal caliber thoracic aorta. No mediastinal or hilar lymphadenopathy. Small esophageal hernia. No axillary lymphadenopathy. Adrenal glands are normal. CT/CT lung screening [id number] IMPRESSION: LUNG-RADS: 3-Probably Benign FOLLOW UP: 3 Month LDCT
== END 2025-03-24 09:51 | disposition home or self-care (01) ==
LOC: RAD 09:53
PROVIDERS: PCP Family Medicine; Visit Provider Family Medicine
DX: Z12.2 Encounter for screening for malignant neoplasm of respiratory organs (principal); F17.210 Nicotine dependence, cigarettes, uncomplicated; R91.1 Solitary pulmonary nodule
CPT/HCPCS: 71271

== ENCOUNTER 2025-03-26 12:27 | Outpatient (CLI) | payer MEDICARE, MEDICAID, SELFPAY ==
[2024-10-15 11:27] VITALS: BP 132/88; BMI 31.9
== END 2025-03-26 12:28 | disposition home or self-care (01) ==
LOC: LAB 03-28 11:45
PROVIDERS: PCP Family Medicine; Visit Provider Family Medicine
DX: F20.89 Other schizophrenia (principal); Z79.899 Other long term (current) drug therapy
CPT/HCPCS: 85007; 85027

== ENCOUNTER 2025-03-31 19:21 | Emergency (ER) | payer MEDICARE, MEDICAID, SELFPAY ==
[2024-10-15 11:27] VITALS: BP 132/88; BMI 31.9
--- OUTSIDE RECORDS SUMMARY | 2025-03-31 19:24 | XMS_ITS | Clinical Summary ---
Author Organization [facility] Address [address] 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
[2025-03-31 19:31] VITALS: BP 124/82; PULSE 96; RESP 16; TEMP 36.7; O2SAT 97
--- NOTE | 2025-03-31 19:59 | ED_ITS ---
HPI - Anxiety General: Chief Complaint: Anxiety Stated Complaint: Anxiety Time Seen by Provider: 03/31/25 19:34 Source: patient Limitations: no limitations History of Present Illness: 59-year-old female is very well-known to the ER she has a long history anxiety she states that she has ran out of her Ativan been having increased anxiety she denies any SI or HI denies any worse improved factors. Associated symptoms: Deny chest pain, chills, fever(s) or headache(s) Related Data Home Medications ?Medication ?Instructions ?Recorded ?Confirmed montelukast 10 mg tablet 10 mg PO QAM 10/28/24 rosuvastatin 20 mg tablet 20 mg PO QPM cholesterol 01/1403/19/25 Previous Rx's ?Medication ?Instructions ?Recorded citalopram 40 mg tablet (Celexa) 40 mg PO QAM #30 tabs 05/20/24 albuterol sulfate 90 mcg/actuation 2 puff inhalation Q 4H PRN 11/21/24 aerosol inhaler Shortness Of Breath Or [place]ez ing #8.5 grams budesonide-formoterol HFA 160 2 puff inhalation BID #1 0.2 grams 11/21/24 mcg-4.5 mcg/actuation aerosol inhaler (Symbicort) fluticasone propionate 50 2 spray intranasal BID PRN 0 11/21/24 mcg/actuation nasal allergies #48 grams spray,suspension gabapentin 300 mg capsule See Rx Instructions .Route 0 01/11/25 .COMPLEX #90 caps hydroxyzine HCl 25 mg tablet 25 mg PO BID PRN anxiety #60 tabs 01/16/25 clozapine 100 mg tablet See Rx Instructions PO .COMP JACLYN 02/05/25 #180 tabs meloxicam 7.5 mg tablet 7.5 mg PO BID PRN INFLAMATIO N AND 02/09/25 PAIN. #60 tabs oxybutynin chloride 15 mg See Rx Instructions .Route 0 02/11/25 tablet,extended release 24 hr .COMPLEX #90 tabs dexlansoprazole 60 mg 60 mg PO DAILY PRN Acid Refl ux #90 02/19/25 capsule,biphase delayed release caps benztropine 1 mg tablet See Rx Instructions .Route 0 03/11/25 .COMPLEX #90 tabs tramadol 50 mg tablet 50 mg PO BID PRN pain 30 day s #60 03/11/25 tabs mirtazapine 45 mg tablet 45 mg PO BEDTIME #30 tabs Allergies Allergy/AdvReac Type Severity Reaction Status Date / Time ibuprofen Allergy Mild ALGY-Rash Verified 03/19/25 08:46 Review of Systems Const: Denies: fever(s) or chills ENMT: Denies: throat pain Card: Denies: chest pain Resp: Denies: dyspnea GI: Denies: abdominal pain Neuro: Denies: headache(s) Psych: Reports: anxiety PFSH ED PFSH: Medical History Right lower lobe pulmonary nodule on 03.23.25 LDCT, ordered 3 month f/u Cigarette smoker Vitamin B12 deficiency starting B12 orally 12/14 Balance disorder Chronic low back pain Encounter for chronic pain management Tramadol; Legacy patient on this from Dr. 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 Prediabetes Chronic bronchitis with COPD (chronic obstructive pulmonary disease) Mixed hyperlipidemia Psychiatric care Osteoarthritis (arthritis due to wear and tear of joints) Chronic pain disorder Right shoulder, bilateral lower extremities Obesity (BMI 30.0-34.9) GERD (gastroesophageal reflux disease) Surgical History Status post bilateral salpingo-oophorectomy (BSO) S/P laparoscopic assisted vaginal hysterectomy (LAVH) Family History Other CAD (coronary artery disease) Hypertension Social History Smoking and tobacco/nicotine status: current every day tobacco/nicotine user cigarettes Packs smoked per day: 0.5 [ Other cigarette details: quit 2024; age 13 to 59; so 23pk yr] Alcohol intake: never Substance/Drug Use: former Date of last use: 2012 Former substance use details: meth; hx of IV use Household members: none Marital status: Number of children: 2 Highest education level completed: High School Graduate Current occupational status: disabled 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; Do you think of yourself as: Straight/Heterosexual Female Reproductive History: Para: 2 Physical Exam Const: COMMON NORMALS: no acute distress, patient oriented x3 and healthy appearing HENMT: COMMON NORMALS: normocephalic and atraumatic HEAD & SCALP: normocephalic and atraumatic Eye: COMMON NORMALS: conjunctivae normal CONJUNCTIVA: Yes conjunctivae normal Neck/C-Spine: COMMON NORMALS: full ROM and supple Chest: COMMONS NORMALS: normal inspection of the chest Resp: COMMON NORMALS: normal respiratory effort Cardio: COMMON NORMALS: regular rate RATE: regular rate Extremity: COMMON NORMALS: normal to inspection and full ROM Neuro: COMMON NORMALS: patient oriented x3, moves all extremities and no focal motor deficits Psych: COMMON NORMALS: mental status grossly normal, Normal thought process present and cooperative THOUGHT PROCESS: Normal thought process present Skin: COMMON NORMALS: no rashes or lesions noted and no wounds GENERAL SKIN EXAM: no rashes or lesions noted Course Vital Signs: Vital signs: Vital Signs Temperature 98.1 F 03/31/25 19:31 Pulse Rate 96 03/31/25 19:31 Respiratory Rate 16 03/31/25 19:31 Blood Pressure 124/82 03/31/25 19:31 Pulse Oximetry 97 03/31/25 19:31 MDM - Anxiety Medical Decision Making Patient presents here with anxiety she is out of her Ativan informed her we cannot refill her Ativan she is not suicidal or homicidal or acutely psychotic she is stable for discharge and informed her she needs to follow-up with her PCP she return if worsening. Medical Records I reviewed the patient's medical records. No radiology studies performed this visit Discharge Plan Discharge Patient Disposition: Home Clinical Impression: Anxiety disorder Qualifiers: Anxiety disorder type: other anxiety disorder Qualified Code(s): F41.8 - Other specified anxiety disorders Condition: Stable Prescriptions: No Action clozapine 100 mg tablet See Rx Instructions PO .COMPLEX Qty: 180 11RF Rx Instructions: Take 2 tabs in the morning and 4 tabs in the evening. citalopram [Celexa] 40 mg tablet 40 mg PO QAM Qty: 30 11RF hydroxyzine HCl 25 mg tablet 25 mg PO BID PRN (Reason: anxiety) Qty: 60 5RF mirtazapine 45 mg tablet 45 mg PO BEDTIME Qty: 30 11RF budesonide-formoterol [Symbicort] 160-4.5 mcg/actuation HFA aerosol inhaler 2 puff inhalation BID Qty: 10.2 5RF fluticasone propionate 50 mcg/actuation spray,suspension 2 spray intranasal BID PRN (Reason: allergies) Qty: 48 1RF albuterol sulfate 90 mcg/actuation HFA aerosol inhaler 2 puff inhalation Q4H PRN (Reason: Shortness Of Breath Or Wheezing) Qty: 8.5 5RF gabapentin 300 mg capsule See Rx Instructions .ROUTE .COMPLEX Qty: 90 3RF Dose Instruction: TAKE 1 CAPSULE BY MOUTH EVERY 8 HOURS FOR CHRONIC PAIN Rx Instructions: TAKE 1 CAPSULE BY MOUTH EVERY 8 HOURS FOR CHRONIC PAIN meloxicam 7.5 mg tablet 7.5 mg PO BID PRN (Reason: INFLAMATION AND PAIN.) Qty: 60 2RF oxybutynin chloride 15 mg tablet extended release 24hr See Rx Instructions .ROUTE .COMPLEX Qty: 90 1RF Dose Instruction: TAKE 1 TABLET BY MOUTH AT BEDTIME Rx Instructions: TAKE 1 TABLET BY MOUTH AT BEDTIME dexlansoprazole 60 mg capsule,biphase delayed releas 60 mg PO DAILY PRN (Reason: Acid Reflux) Qty: 90 0RF benztropine 1 mg tablet See Rx Instructions .ROUTE .COMPLEX Qty: 90 3RF Dose Instruction: TAKE 1 TABLET BY MOUTH AT 7:30 AM DAILY Rx Instructions: TAKE 1 TABLET BY MOUTH AT 7:30 AM DAILY tramadol 50 mg tablet 50 mg PO BID PRN (Reason: pain) 30 Days Qty: 60 0RF montelukast 10 mg tablet 10 mg PO QAM rosuvastatin 20 mg tablet 20 mg PO QPM Discharge Orders: Discharge ED (Routine); Ordered 03/31/25 Ordered By: Kade Smith Referrals: Princess Glaser MD [Primary Care Provider, Family Practice] Discharge Diet: Advance as tolerated Discharge Activity: Resume usual activity Patient Instructions: Anxiety (ED) Print Language: Khmer Coding Level of Care Code ED Director Process Engineering for Krystin Fwrafael
== END 2025-03-31 20:14 | disposition home or self-care (01) ==
PROVIDERS: Emergency Provider Emergency Medicine; PCP Family Medicine
DX: F41.8 Other specified anxiety disorders (principal); F17.210 Nicotine dependence, cigarettes, uncomplicated; E78.2 Mixed hyperlipidemia; J44.9 Chronic obstructive pulmonary disease, unspecified
CPT/HCPCS: 99283; J9999

== ENCOUNTER 2025-04-29 16:03 | Emergency (ER) | payer MEDICARE, MEDICAID, SELFPAY ==
[2024-10-15 11:27] VITALS: BP 132/88; BMI 31.9
[2025-04-29 16:10] VITALS: BP 109/72; PULSE 104; RESP 16; TEMP 36.7; O2SAT 97; BMI 28.7
--- NOTE | 2025-04-29 16:17 | XRR_ITS ---
PROCEDURE INFORMATION: Exam: XR Abdomen Exam date and time: 04/29/2025 4:29 PM Age: 59 years old Clinical indication: Constipation 7 days TECHNIQUE: Imaging protocol: Radiologic exam of the abdomen. Views: Frontal supine view of the abdomen. 1 View. COMPARISON: CT abdomen pelvis w con* [id number] 11/11/2020 2:31 AM FINDINGS: Gastrointestinal tract: Bowel gas pattern nonobstructive. Large fecal load throughout the colon consistent with severe constipation. Intraperitoneal space: No evidence of free intraperitoneal air. Bones/joints: Unremarkable. XR/XR abdomen 1V* [id number] IMPRESSION: 1. Large fecal load throughout the colon consistent with severe constipation. 2. No evidence of intestinal obstruction or perforation radiographically.
--- NOTE | 2025-04-29 16:57 | ED_ITS ---
HPI - Anxiety 2 General: Chief Complaint: Anxiety Stated Complaint: Patients say having Anxiaty Time Seen by Provider: 04/29/25 16:20 History of Present Illness: 59-year-old female with a history of anx iety, medical noncompliance, schizophrenia, COPD, GERD and chronic pain who presents emergency room with complaints of anxiety and constipation. She says she has not had an bowel movement in about a week. No focal tenderness. No nausea or vomiting. She is also very anxious. Related Data Home Medications ?Medication ?Instructions ?Recorded ?Confirmed rosuvastatin 20 mg tablet 20 mg PO QPM cholesterol 01/1404/17/25 Previous Rx's ?Medication ?Instructions ?Recorded albuterol sulfate 90 mcg/actuation 2 puff inhalation Q 4H PRN 11/21/24 aerosol inhaler Shortness Of Breath Or Wheez ing #8.5 grams budesonide-formoterol HFA 160 2 puff inhalation BID #1 0.2 grams 11/21/24 mcg-4.5 mcg/actuation aerosol inhaler (Symbicort) fluticasone propionate 50 2 spray intranasal BID PRN 0 11/21/24 mcg/actuation nasal allergies #48 grams spray,suspension gabapentin 300 mg capsule See Rx Instructions .Route 0 01/11/25 .COMPLEX #90 caps hydroxyzine HCl 25 mg tablet 25 mg PO BID PRN anxiety #60 tabs 01/16/25 clozapine 100 mg tablet See Rx Instructions PO .COMP JACLYN 02/05/25 #180 tabs meloxicam 7.5 mg tablet 7.5 mg PO BID PRN INFLAMATIO N AND 02/09/25 PAIN. #60 tabs oxybutynin chloride 15 mg See Rx Instructions .Route 0 02/11/25 tablet,extended release 24 hr .COMPLEX #90 tabs benztropine 1 mg tablet See Rx Instructions .Route 0 03/11/25 .COMPLEX #90 tabs mirtazapine 45 mg tablet 45 mg PO BEDTIME #30 tabs tramadol 50 mg tablet 50 mg PO BID PRN pain 30 day s #60 04/10/25 tabs montelukast 10 mg tablet See Rx Instructions .Route 0 04/12/25 .COMPLEX #90 tabs citalopram 40 mg tablet (Celexa) 40 mg PO QAM #30 tabs 04/17/25 dexlansoprazole 60 mg 60 mg PO DAILY PRN Acid Refl ux #90 04/20/25 capsule,biphase delayed release caps glycerin (adult) 1 supp IA DAILY PRN constipa tion 04/29/25 #12 ea polyethylene glycol 3350 17 17 g PO DAILY #510 grams 1 gram/dose oral powder (Miralax) Allergies Allergy/AdvReac Type Severity Reaction Status Date / Time ibuprofen Allergy Mild ALGY-Rash Verified 04/29/25 16:15 Review of Systems 2 Narrative: Constitutional symptoms: Negative except as documented in HPI. Skin symptoms: Negative except as documented in HPI. Eye symptoms: Negative except as documented in HPI. ENMT symptoms: Negative except as documented in HPI. Respiratory symptoms: Negative except as documented in HPI. Cardiovascular symptoms: Negative except as documented in HPI. Gastrointestinal symptoms: Negative except as documented in HPI. Genitourinary symptoms: Negative except as documented in HPI. Musculoskeletal symptoms: Negative except as documented in HPI. Neurologic symptoms: Negative except as documented in HPI. Psychiatric symptoms: Negative except as documented in HPI. Endocrine symptoms: Negative except as documented in HPI. PFSH ED 2 PFSH: Medical History (Updated 04/29/25 @ 18:44 by Carmela Nelson MD) Right lower lobe pulmonary nodule on 03.23.25 LDCT, ordered 3 month f/u Cigarette smoker Vitamin B12 deficiency starting B12 orally 12/14 Balance disorder Chronic low back pain Encounter for chronic pain management Tramadol; Legacy patient on this from Dr. 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 Prediabetes Chronic bronchitis with COPD (chronic obstructive pulmonary disease) Mixed hyperlipidemia Psychiatric care Osteoarthritis (arthritis due to wear and tear of joints) Chronic pain disorder Right shoulder, bilateral lower extremities Obesity (BMI 30.0-34.9) GERD (gastroesophageal reflux disease) Surgical History Status post bilateral salpingo-oophorectomy (BSO) S/P laparoscopic assisted vaginal hysterectomy (LAVH) Family History Other CAD (coronary artery disease) Hypertension Social History Smoking and tobacco/nicotine status: current every day tobacco/nicotine user cigarettes Packs smoked per day: 0.5 [ Other cigarette details: quit 2024; age 13 to 59; so 23pk yr] Alcohol intake: never Substance/Drug Use: former Date of last use: 2012 Former substance use details: meth; hx of IV use Household members: none Marital status: Number of children: 2 Highest education level completed: High School Graduate Current occupational status: disabled 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 Skin: Warm, dry. Head: Normocephalic, atraumatic. Neck: Supple, trachea midline. Eye: Extraocular movements are intact. Ears, nose, mouth and throat: Tacky oral mucosa Cardiovascular: Regular, Normal peripheral perfusion. Respiratory: Lungs are clear to auscultation, respirations are non-labored, breath sounds are equal, Symmetrical chest wall expansion. Gastrointestinal: Soft, Nontender, Non distended Musculoskeletal: Normal ROM, no deformity. Neurological: Alert and oriented, No focal neurological deficit observed. Psychiatric: Cooperative, appropriate mood & affect. Course 2 Vital Signs: Vital signs: Vital Signs Temperature 98.0 F 04/29/25 16:10 Pulse Rate 86 04/29/25 18:33 Respiratory Rate 16 04/29/25 16:10 Blood Pressure 109/72 04/29/25 16:10 Pulse Oximetry 98 04/29/25 18:33 MDM - Anxiety Medical Decision Making Medical decision making: Differential diagnosis including but not limited to and based on the above HPI, review of systems and physical exam: - patient with complaint of constipation: Small bowel obstruction. Gastroparesis. Constipation. Also evaluation for urinary retention, liver disease, renal failure. Orders placed to evaluate differential diagnosis based on the above differential, HPI and physical exam Abdominal x-ray: Large fecal load with no obvious obstruction. This was reviewed and interpreted by myself the emergency room physician. I also reviewed the radiology report. CT of the abdomen pelvis with contrast: Large fecal load in the colon. Some short segments that may just be peristalsis but could be malignancy. She had a colonoscopy 2 years ago. I encouraged her to follow-up with her PCP and consider repeat colonoscopy. This was reviewed and interpreted by myself the emergency room physician. I also reviewed the radiology report. Lab Review: Laboratory results were reviewed and interpreted by myself the emergency room physician. No leukocytosis. No anemia. No renal failure. I reviewed the patient's medical record. Reexamination: Patient remained stable. No increased work of breathing. No altered mental status. No focal motor deficits. Assessment and plan: Constipation Anxiety Dehydration ?IV bolus. IV Ativan. P.o. GoLytely. - Discharged home - Discussed plan with patient. Answered any questions. - Evaluation and treatment of this problem were appropriate in the emergency setting. Lab Data 04/29/25 17:12 04/29/25 17:12 Radiology Impressions Abdomen X-Ray 04/29/25 16:17 IMPRESSION: 1. Large fecal load throughout the colon consistent with severe constipation. 2. No evidence of intestinal obstruction or perforation radiographically. Abdomen/Pelvis CT 04/29/25 16:58 IMPRESSION: 1. Large fecal load in the colon consistent with constipation. 2. Two short segments demonstrating mild concentric wall thickening in the distal sigmoid colon and at the rectosigmoid junction. Differential diagnosis includes peristalsing bowel versus neoplastic lesions. Recommend gastroenterology consultation to establish management plan which may include colonoscopy. 3. No pelvic, mesenteric, or retroperitoneal lymphadenopathy. 4. Duodenal diverticulum measuring up to 5.3 cm. Laboratory Results WBC 10.87 10^3/uL (3.29-11.43) 04/29/25 17:12 RBC 4.32 10^6/uL (3.85-5.65) 04/29/25 17:12 Hgb 12.60 g/dL (11.27-16.99) 04/29/25 17:12 Hct 39.3 % (36-47) 04/29/25 17:12 MCV 91.0 fl (85-98) 04/29/25 17:12 MCH 29.2 pg (27-33) 04/29/25 17:12 MCHC 32.1 g/dL (30-55) 04/29/25 17:12 RDW 13.7 % (12.1-15.1) 04/29/25 17:12 Plt Count 273 10^3/cmm (157-399) 04/29/25 17:12 MPV 9.7 fL (7.4-10.4) 04/29/25 17:12 Neut % (Auto) 74.6 % 04/29/25 17:12 Lymph % (Auto) 15.6 % 04/29/25 17:12 Twiggs % (Auto) 9.1 % 04/29/25 17:12 Eos % (Auto) 0.1 % 04/29/25 17:12 Baso % (Auto) 0.2 % 04/29/25 17:12 Neut # (Auto) 8.11 10^3/uL (1.8-7.7) H 04/29/25 17:12 Lymph # (Auto) 1.7 10^3/uL (0.8-4.8) 04/29/25 17:12 Twiggs # (Auto) 1.0 10^3/uL (0.2-0.9) H 04/29/25 17:12 Eos # (Auto) 0.0 10^3/uL (0.0-0.8) 04/29/25 17:12 Baso # (Auto) 0.0 10^3/uL (0.0-0.1) 04/29/25 17:12 Nucleated RBC % (auto) 0 % 04/29/25 17:12 Nucleated RBCs # 0.0 /100WBC 04/29/25 17:12 Sodium 143 mmol/L (136-145) 04/29/25 17:12 Potassium 4.0 mmol/L (3.5-5.1) 04/29/25 17:12 Chloride 106 mmol/L (98-107) 04/29/25 17:12 Carbon Dioxide 26 mmol/L (22-29) 04/29/25 17:12 Anion Gap 15.0 (5-19) 04/29/25 17:12 BUN 10 mg/dL (8-23) 04/29/25 17:12 Creatinine 0.7 mg/dL (0.5-0.9) 04/29/25 17:12 GFR Calculation 85.4 mL/min (90-130) L 04/29/25 17:12 Glucose 101 mg/dL (65-115) 04/29/25 17:12 Calculated Osmolality 295 mOsm/kg (285-295) 04/29/25 17:12 Calcium 9.3 mg/dL (8.5-10.5) 04/29/25 17:12 Total Bilirubin 0.2 mg/dL (0.15-1.2) 04/29/25 17:12 AST 17 U/L (0-32) 04/29/25 17:12 ALT 17 U/L (0-33) 04/29/25 17:12 Alkaline Phosphatase 132 U/L (35-105) H 04/29/25 17:12 Total Protein 7.0 g/dL (6.6-8.7) 04/29/25 17:12 Albumin 4.3 g/dL (3.5-5.2) 04/29/25 17:12 Globulin 2.7 g/dL (1.3-4.6) 04/29/25 17:12 All radiology interpretation(s) finalized by discharge Discharge Plan Discharge Patient Disposition: Home Clinical Impression: Constipation, Anxiety Condition: Stable Prescriptions: New polyethylene glycol 3350 [Miralax] 17 gram/dose powder 17 g PO DAILY Qty: 510 0RF Rx Instructions: Take 1-2 scoops daily for the next 3 months to keep stools soft glycerin (adult) Suppository 1 supp IA DAILY PRN (Reason: constipation) Qty: 12 0RF No Action clozapine 100 mg tablet See Rx Instructions PO .COMPLEX Qty: 180 11RF Rx Instructions: Take 2 tabs in the morning and 4 tabs in the evening. citalopram [Celexa] 40 mg tablet 40 mg PO QAM Qty: 30 11RF hydroxyzine HCl 25 mg tablet 25 mg PO BID PRN (Reason: anxiety) Qty: 60 5RF mirtazapine 45 mg tablet 45 mg PO BEDTIME Qty: 30 11RF budesonide-formoterol [Symbicort] 160-4.5 mcg/actuation HFA aerosol inhaler 2 puff inhalation BID Qty: 10.2 5RF fluticasone propionate 50 mcg/actuation spray,suspension 2 spray intranasal BID PRN (Reason: allergies) Qty: 48 1RF albuterol sulfate 90 mcg/actuation HFA aerosol inhaler 2 puff inhalation Q4H PRN (Reason: Shortness Of Breath Or Wheezing) Qty: 8.5 5RF gabapentin 300 mg capsule See Rx Instructions .ROUTE .COMPLEX Qty: 90 3RF Dose Instruction: TAKE 1 CAPSULE BY MOUTH EVERY 8 HOURS FOR CHRONIC PAIN Rx Instructions: TAKE 1 CAPSULE BY MOUTH EVERY 8 HOURS FOR CHRONIC PAIN meloxicam 7.5 mg tablet 7.5 mg PO BID PRN (Reason: INFLAMATION AND PAIN.) Qty: 60 2RF oxybutynin chloride 15 mg tablet extended release 24hr See Rx Instructions .ROUTE .COMPLEX Qty: 90 1RF Dose Instruction: TAKE 1 TABLET BY MOUTH AT BEDTIME Rx Instructions: TAKE 1 TABLET BY MOUTH AT BEDTIME benztropine 1 mg tablet See Rx Instructions .ROUTE .COMPLEX Qty: 90 3RF Dose Instruction: TAKE 1 TABLET BY MOUTH AT 7:30 AM DAILY Rx Instructions: TAKE 1 TABLET BY MOUTH AT 7:30 AM DAILY tramadol 50 mg tablet 50 mg PO BID PRN (Reason: pain) 30 Days Qty: 60 0RF montelukast 10 mg tablet See Rx Instructions .ROUTE .COMPLEX Qty: 90 0RF Dose Instruction: TAKE 1 TABLET BY MOUTH EVERY MORNING Rx Instructions: TAKE 1 TABLET BY MOUTH EVERY MORNING dexlansoprazole 60 mg capsule,biphase delayed releas 60 mg PO DAILY PRN (Reason: Acid Reflux) Qty: 90 0RF rosuvastatin 20 mg tablet 20 mg PO QPM Discharge Orders: Discharge ED (Routine); Ordered 04/29/25 Ordered By: Carmela Nelson Referrals: Triston Nowak MD [Physician, General Surgery] Referral Note: You may need to have colonoscopy. Contact general surgery clinic to have this done. Princess Glaser MD [Primary Care Provider, Family Practice] Discharge Diet: Advance as tolerated Discharge Activity: Increase activity as tolerated Patient Instructions: Opioid Safety, Pain Management, Patient Portal & Jimmy Instructions Activity Restrictions/Additional Instructions: Take 1/2 L of GoLytely every 3-4 hours while awake until the bottle is gone. Also there was some concern on your CT for abnormal colon. You need to follow- up with gastroenterology or general surgery for possible colonoscopy if you have not had one recently Thank you for choosing [facility] [place] for your healthcare needs today. You have been screened and evaluated and felt safe for discharge. Health conditions do change or evolve sometimes and as such it is important that you follow up with your Primary Doctor to be re checked, 3-5 days is a general good time frame for follow up. You are always welcome to return to the ED for re assessment if your symptoms are worsening or you have new concerns Print Language: Wolof Coding Level of Care Code ED Hebrew Teacher for 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
--- NOTE | 2025-04-29 16:58 | CTR_ITS ---
PROCEDURE INFORMATION: Exam: CT Abdomen And Pelvis With Contrast Exam date and time: 04/29/2025 5:43 PM Age: 59 years old Clinical indication: Abdominal pain TECHNIQUE: Imaging protocol: Computed tomography of the abdomen and pelvis with contrast. Radiation optimization: All CT scans at this facility use at least one of these dose optimization techniques: automated exposure control; mA and/or kV adjustment per patient size (includes targeted exams where dose is matched to clinical indication); or iterative reconstruction. Contrast material: [id number]; Contrast volume: 100 ml; Contrast route: INTRAVENOUS (IV); COMPARISON: CR XR abdomen 1V* [id number] 04/29/2025 4:29 PM RADIATION DOSE METRICS: Total DLP (mGy-cm): 661.95 FINDINGS: Liver: Mild hepatic steatosis. No significant focal hepatic lesions. Gallbladder and biliary ducts: Contracted gallbladder . No significant biliary ductal dilatation. Pancreas: Normal. No ductal dilation. Spleen: Normal. No splenomegaly. Adrenal glands: Normal. No mass. Kidneys and ureters: No suspicious renal lesions. No hydronephrosis or nephrolithiasis. No ureteral stones. Stomach and bowel: Duodenal diverticulum measuring 5.3 x 5 x 4 cm. Normal caliber of the small bowel without evidence of obstruction. Large fecal load in the colon consistent with constipation. Two short segments demonstrating mild concentric wall thickening in the distal sigmoid colon and at the rectosigmoid junction. Appendix: No evidence of appendicitis. Intraperitoneal space: Unremarkable. No free air. No significant fluid collection. Vasculature: Atherosclerotic calcifications of the abdominal aorta without aneurysm. Lymph nodes: No pelvic, mesenteric, or retroperitoneal lymphadenopathy. Urinary bladder: Urinary bladder unremarkable. Reproductive: Surgically absent uterus. No significant adnexal lesions. Bones/joints: No significant focal osseous lesions. No fractures or malalignment. Soft tissues: Unremarkable. CT/CT abdomen pelvis w con* [id number] IMPRESSION: 1. Large fecal load in the colon consistent with constipation. 2. Two short segments demonstrating mild concentric wall thickening in the distal sigmoid colon and at the rectosigmoid junction. Differential diagnosis includes peristalsing bowel versus neoplastic lesions. Recommend gastroenterology consultation to establish management plan which may include colonoscopy. 3. No pelvic, mesenteric, or retroperitoneal lymphadenopathy. 4. Duodenal diverticulum measuring up to 5.3 cm.
[2025-04-29] MEDS: LORazepam 1 MG/0.5 ML injection IVP (17:14)
[2025-04-29 17:22] LABS: Hematocrit 39.3 % (36-47); Hemoglobin 12.60 g/dL (11.27-16.99); Mean Corpuscular HGB Conc 32.1 g/dL (30-55); Mean Corpuscular Hemoglobin 29.2 pg (27-33); Mean Corpuscular Volume 91.0 fl (85-98); Nucleated Red Blood Cells % 0 %; Platelet Count 273 10^3/cmm (157-399); Red Blood Count 4.32 10^6/uL (3.85-5.65); White Blood Count 10.87 10^3/uL (3.29-11.43)
[2025-04-29 17:41] LABS: Alanine Aminotransferase 17 U/L (0-33); Albumin Level 4.3 g/dL (3.5-5.2); Alkaline Phosphatase 132 U/L (35-105); Anion Gap 15.0 (5-19); Aspartate Amino Transferase 17 U/L (0-32); Blood Urea Nitrogen 10 mg/dL (8-23); Calcium 9.3 mg/dL (8.5-10.5); Carbon Dioxide 26 mmol/L (22-29); Chloride 106 mmol/L (98-107); Creatinine Clr Calc Pharmacy 78.9901; Globulin 2.7 g/dL (1.3-4.6); Glucose 101 mg/dL (65-115); Osmolality Calculated 295 mOsm/kg (285-295); Potassium 4.0 mmol/L (3.5-5.1); Sodium 143 mmol/L (136-145); Total Protein 7.0 g/dL (6.6-8.7)
[2025-04-29] MEDS: iohexol 350 mg/mL 500 mL Btl (per mL) IV (17:47)
[2025-04-29 18:33] VITALS: PULSE 86; O2SAT 98
[2025-04-29] MEDS: peg /e-lyte soln 4,000 mL Btl 4000 ML PO (18:54)
== END 2025-04-29 18:55 | disposition home or self-care (01) ==
PROVIDERS: Emergency Provider Emergency Medicine; PCP Family Medicine
DX: K59.00 Constipation, unspecified (principal); F41.9 Anxiety disorder, unspecified; F17.210 Nicotine dependence, cigarettes, uncomplicated; E78.2 Mixed hyperlipidemia
CPT/HCPCS: 74018; 74177; 80053; 85025; 96374; 99285; J2060; J7030; J9999

== ENCOUNTER → 2025-05-29 12:06 | Outpatient (BNVA) | payer MEDICARE, MEDICAID, SELFPAY ==
[2024-10-15 11:27] VITALS: BP 132/88; BMI 31.9
== END ==
PROVIDERS: PCP Family Medicine; Visit Provider Psychiatry & Neurology Psychiatry
DX: F20.89 Other schizophrenia (principal); Z79.899 Other long term (current) drug therapy
CPT/HCPCS: 85007; 85027

== ENCOUNTER 2025-06-16 08:53 | Outpatient (CLI) | payer MEDICARE, MEDICAID, SELFPAY ==
[2024-10-15 11:27] VITALS: BP 132/88; BMI 31.9
--- NOTE | 2025-06-16 09:00 | CTR_ITS ---
PROCEDURE INFORMATION: Exam: CT Chest Without Contrast; Diagnostic Exam date and time: 06/16/2025 9:18 AM Age: 60 years old Clinical indication: Abnormal findings; Abnormal radiologic exam of lung or chest; Follow up lung screen, rll nodule, 3 month follow up. HX of cervical cancer; Additional info: Rll nodule on ldct, 3 month f/u TECHNIQUE: Imaging protocol: Diagnostic computed tomography of the chest without contrast. Radiation optimization: All CT scans at this facility use at least one of these dose optimization techniques: automated exposure control; mA and/or kV adjustment per patient size (includes targeted exams where dose is matched to clinical indication); or iterative reconstruction. COMPARISON: CT lung screening [id number] 03/24/2025 9:59 AM RADIATION DOSE METRICS: Total DLP (mGy-cm): 239 FINDINGS: Lungs: Resolution of the previously seen right upper lobe ground-glass nodule. Resolution of the previously seen 1.9 cm ground-glass nodule right lower lobe. 5 mm right lower lobe ground-glass nodules similar to the prior 6 mm nodule given difference in technique. This is seen image 35 series 6. There are 2 new areas of vague ground-glass opacity on the right, to include 9 mm right upper lobe image 23, 2 x 1.1 cm apical segment right lower lobe image 24. The waxing and waning nature of these areas of ground-glass would favor non neoplastic process. No new left-sided pulmonary nodule. Mild increase in atelectasis right middle lobe. Pleural spaces: Unremarkable. No pneumothorax. No pleural effusion. Heart: Unremarkable. No cardiomegaly. No pericardial effusion. Coronary arteries: No significant coronary artery calcifications. Lymph nodes: Unremarkable. No enlarged lymph nodes. Vasculature: Mild atherosclerotic disease is evident in the visualized aorta. Bones/joints: Sclerotic lesion T11 inferior endplate is unchanged from 09/13/2023. This is nonspecific but stability favors either benign etiology or potentially a previously treated metastasis without progression at this time. Soft tissues: Unremarkable. CT/CT chest wo con [id number] IMPRESSION: 1. Waxing and waning ground-glass, most suggestive of non neoplastic process. 2. There is at least 1 pulmonary nodule in the right lower lobe that is 5 mm, this is similar to the prior given difference in technique. Given the history of malignancy, continued surveillance is recommended, in 3-6 months.
== END 2025-06-16 08:54 | disposition home or self-care (01) ==
LOC: RAD 08:54
PROVIDERS: PCP Family Medicine; Visit Provider Family Medicine
DX: R91.1 Solitary pulmonary nodule (principal); Z85.41 Personal history of malignant neoplasm of cervix uteri; R91.8 Other nonspecific abnormal finding of lung field; J98.11 Atelectasis; I70.0 Atherosclerosis of aorta; S24.11 Complete lesion of thoracic spinal cord; X58.XXXD Exposure to other specified factors, subsequent encounter
CPT/HCPCS: 71250

== ENCOUNTER 2025-07-11 16:17 | Emergency (ER) | payer MEDICARE, MEDICAID, SELFPAY ==
[2024-10-15 11:27] VITALS: BP 132/88; BMI 31.9
--- OUTSIDE RECORDS SUMMARY | 2025-07-11 16:19 | XMS_ITS | Clinical Summary ---
Author Organization [facility] Address [address] 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
[2025-07-11 16:23] VITALS: BP 104/71; PULSE 104; RESP 18; TEMP 36.9; O2SAT 93; BMI 30.2
--- NOTE | 2025-07-11 16:31 | ECG_ITS ---
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
[2025-07-11 17:01] VITALS: BP 113/71; PULSE 98; RESP 18; O2SAT 93
[2025-07-11] MEDS: methylPREDNISolone sod succ 125 mg/2 mL INJ 80 MG IVP (17:11)
--- NOTE | 2025-07-11 17:12 | XRR_ITS ---
PROCEDURE INFORMATION: Exam: XR Abdomen Exam date and time: 07/11/2025 5:52 PM Age: 60 years old Clinical indication: Other: Short of breath; Abdominal pain; Prior surgery; Surgery date: 6+ months; Surgery type: Hysterectomy; Additional info: Short of breath, abd pain TECHNIQUE: Imaging protocol: Radiologic exam of the abdomen. Views: 2 Views. Upright and supine views. COMPARISON: CT chest con [id number] 06/16/2025 9:18 AM FINDINGS: Lungs: Lungs clear Heart/Mediastinum: Heart normal size Gastrointestinal tract: Moderate amount of stool loading present throughout the colon in the appropriate clinical scenario this may represent constipation correlate with patient's symptomatology Intraperitoneal space: There is no free air. No calcifications in the abdomen or pelvis. Bones/joints: There is right-sided deviation thoracolumbar junction could be positional or scoliotic related. Other findings: There is no obstruction XR/XR acute abdomen series [id number] IMPRESSION: Findings suggest constipation without obstruction No acute cardiopulmonary process demonstrated
[2025-07-11 17:17] LABS: Hematocrit 37.4 % (36-47); Hemoglobin 12.30 g/dL (11.27-16.99); Mean Corpuscular HGB Conc 32.9 g/dL (30-55); Mean Corpuscular Hemoglobin 29.3 pg (27-33); Mean Corpuscular Volume 89.0 fl (85-98); Nucleated Red Blood Cells % 0 %; Platelet Count 225 10^3/cmm (157-399); Red Blood Count 4.20 10^6/uL (3.85-5.65); White Blood Count 11.67 10^3/uL (3.29-11.43)
--- NOTE | 2025-07-11 17:28 | ED_ITS ---
HPI - SOB/Dyspnea 2 General: Chief Complaint: Shortness of Breath/Dyspnea Stated Complaint: sob Time Seen by Provider: 07/11/25 16:40 History of Present Illness: HPI Narrative: Patient is a pleasant 60-year-old female with COPD, smoker, who reports to the emergency room with 3 days of worsening shortness of breath. This is associated with wheezing, coughing, and sputum change. Initially yellow, then green, then brown, and now white. She came in via EMS with her increasing shortness of breath. Initial oxygen saturation was just 91% on room air. At bedside, she is 92-93% at this time. Denied any chest pain. The main issue is shortness of breath at rest and with exertion. She also has some abdominal distention, however this has been going on for a few weeks, and worsening at this time. She is passing gas. Associated symptoms: Deny abdominal pain, chest pain, fever(s), nausea, palpitations or vomiting Related Data Home Medications ?Medication ?Instructions ?Recorded ?Confirmed rosuvastatin 20 mg tablet 20 mg PO QPM cholesterol 01/1405/07/25 Previous Rx's ?Medication ?Instructions ?Recorded albuterol sulfate 90 mcg/actuation 2 puff inhalation Q 4H PRN 11/21/24 aerosol inhaler Shortness Of Breath Or Wheez ing #8.5 grams hydroxyzine HCl 25 mg tablet 25 mg PO BID PRN anxiety #60 tabs 01/16/25 clozapine 100 mg tablet See Rx Instructions PO .COMP JACLYN 02/05/25 #180 tabs oxybutynin chloride 15 mg See Rx Instructions .Route 0 02/11/25 tablet,extended release 24 hr .COMPLEX #90 tabs mirtazapine 45 mg tablet 45 mg PO BEDTIME #30 tabs montelukast 10 mg tablet See Rx Instructions .Route 0 04/12/25 .COMPLEX #90 tabs citalopram 40 mg tablet (Celexa) 40 mg PO QAM #30 tabs 04/17/25 tramadol 50 mg tablet 50 mg PO BID PRN pain 30 day s #60 05/01/25 tabs atropine 1 % eye drops (Isopto 3 drp sublingual .qhs # 15 mL 05/07/25 Atropine) fluticasone propionate 50 2 spray intranasal BID PRN 1 0/30/25 mcg/actuation nasal allergies #48 grams spray,suspension gabapentin 300 mg capsule See Rx Instructions .Route 1 .COMPLEX #90 caps budesonide-formoterol HFA 160 See Rx Instructions .Rou te 07/06/25 mcg-4.5 mcg/actuation aerosol .COMPLEX #10.2 ea inhaler meloxicam 7.5 mg tablet See Rx Instructions .Route 1 09/06/24 .COMPLEX #60 tabs dexlansoprazole 60 mg 60 mg PO DAILY PRN Acid Refl ux #90 07/10/25 capsule,biphase delayed release caps azithromycin 500 mg tablet See Rx Instructions PO .COM PLEX #5 07/11/25 tabs methylprednisolone 4 mg tablets in See Rx Instructions PO .COMPLEX 07/11/25 a dose pack (Medrol (Cedrick)) #21 ea Allergies Allergy/AdvReac Type Severity Reaction Status Date / Time ibuprofen Allergy Mild ALGY-Rash Verified 05/07/25 13:48 Review of Systems 2 General: Reports: 10 or more systems reviewed and unremarkable except in HPI and below Const: Denies: fever(s), chills, body aches or change in appetite ENMT: Denies: throat pain or dental pain Card: Denies: chest pain or palpitations Resp: Denies: dyspnea or non-productive cough GI: Denies: abdominal pain, nausea, vomiting or diarrhea Musc: Denies: neck pain or back pain Skin/Breast: Denies: rash Neuro: Denies: headache(s), numbness in extremities or weakness in extremities Psych: Denies: anxiety or depression PFSH ED 2 PFSH: Medical History (Updated 07/11/25 @ 18:15 by MAGDA Zapata) Sialorrhea Right lower lobe pulmonary nodule on 03.23.25 LDCT, ordered 3 month f/u Cigarette smoker Vitamin B12 deficiency starting B12 orally 12/14 Balance disorder Chronic low back pain Encounter for chronic pain management Tramadol; [facility] patient on this from Dr. 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 Prediabetes Chronic bronchitis with COPD (chronic obstructive pulmonary disease) Mixed hyperlipidemia Psychiatric care Osteoarthritis (arthritis due to wear and tear of joints) Chronic pain disorder Right shoulder, bilateral lower extremities Obesity (BMI 30.0-34.9) GERD (gastroesophageal reflux disease) Surgical History Status post bilateral salpingo-oophorectomy (BSO) S/P laparoscopic assisted vaginal hysterectomy (LAVH) Family History Other CAD (coronary artery disease) Hypertension Social History Smoking and tobacco/nicotine status: current every day tobacco/nicotine user cigarettes Packs smoked per day: 0.5 [ Other cigarette details: quit 2024; age 13 to 59; so 23pk yr] Alcohol intake: never Substance/Drug Use: former Date of last use: 2012 Former substance use details: meth; hx of IV use Household members: none Marital status: Number of children: 2 Highest education level completed: High School Graduate Current occupational status: disabled 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; Do you think of yourself as: Straight/Heterosexual Female Reproductive History: Para: 2 Physical Exam 2 Const: COMMON NORMALS: patient oriented x3, alert and well nourished N UTRITIONAL APPEARANCE: obese HENMT: COMMON NORMALS: external ears normal and EAC's normal EXTERNAL EAR: Yes external ears normal EXTERNAL AUDITORY CANAL: EAC's normal Eye: COMMON NORMALS: EOMs intact bilaterally Neck/C-Spine: COMMON NORMALS: no lymphadenopathy Resp: COMMON NORMALS: clear to auscultation bilaterally AUSCULTATION: clear to auscultation bilaterally, no rales and no rhonchi Cardio: COMMON NORMALS: regular rate, regular rhythm, S1 normal heart sound present and S2 normal heart sound present RATE: regular rate RHYTHM: r egular rhythm HEART SOUNDS: S1 normal heart sound present, S2 normal heart sound present, no gallops, no murmurs and no rubs GI: COMMON NORMALS: Normal to inspection, nondistended, normoactive bowel sounds present and Soft to palpation AUSCULTATION: Yes normoactive bowel sounds PALPATION: Yes Soft to palpation : COMMON NORMALS: Yes no CVA tenderness BLADDER/KIDNEY EXAM: Yes no CVA tenderness Back/Pelvis: COMMON NORMALS: no CVA tenderness and thoracic and lumbar spine normal to inspection Extremity: GENERAL: No clubbing, No cyanosis and No edema Neuro: COMMON NORMALS: patient oriented x3 SENSORIUM/ORIENTATION: Yes alert Course 2 Vital Signs: Vital signs: Vital Signs Temperature 98.4 F 07/11/25 16:23 Pulse Rate 98 07/11/25 17:01 Respiratory Rate 18 07/11/25 17:01 Blood Pressure 113/71 07/11/25 17:01 Pulse Oximetry 93 07/11/25 17:01 Oxygen Delivery Me thod Room Air 07/11/25 17:01 MDM - SOB/Dyspnea Medical Decision Making Patient is a pleasant 60-year-old female that reports to the emergency room for shortness of breath. She did have wheezing on exam. She has a history of her COPD. As well, she had a large amount of fecal matter in her abdominal x-ray, most likely reason for the pain in her abdomen. She did ask for pain medication, however this is contraindicated with constipation. Discussed with patient to obtain laxative of choice in order to facilitate bowel movement. Patient states understanding. She feels improved after her Solu-Medrol. She will be treated outpatient with azithromycin, and Medrol Dosepak. All of her questions answered to her satisfaction, although she is quite unhappy she cannot have a narcotic, And I do know she hurts, and I would give it to her other than the fact it is contraindicated. Medical Records I reviewed the patient's medical records. Lab Data I reviewed the patient's lab results. 07/11/25 15:55 07/11/25 15:55 Labs/Radiology: Radiology Impressions Chest/Abdomen X-ray 07/11/25 17:12 IMPRESSION: Findings suggest constipation without obstruction No acute cardiopulmonary process demonstrated Laboratory Results WBC 11.67 10^3/uL (3.29-11.43) H 07/11/25 15:55 RBC 4.20 10^6/uL (3.85-5.65) 07/11/25 15:55 Hgb 12.30 g/dL (11.27-16.99) 07/11/25 15:55 Hct 37.4 % (36-47) 07/11/25 15:55 MCV 89.0 fl (85-98) 07/11/25 15:55 MCH 29.3 pg (27-33) 07/11/25 15:55 MCHC 32.9 g/dL (30-55) 07/11/25 15:55 RDW 13.8 % (12.1-15.1) 07/11/25 15:55 Plt Count 225 10^3/cmm (157-399) 07/11/25 15:55 MPV 9.9 fL (7.4-10.4) 07/11/25 15:55 Neut % (Auto) 74.8 % 07/11/25 15:55 Lymph % (Auto) 15.4 % 07/11/25 15:55 Ocean % (Auto) 8.4 % 07/11/25 15:55 Eos % (Auto) 0.8 % 07/11/25 15:55 Baso % (Auto) 0.2 % 07/11/25 15:55 Neut # (Auto) 8.73 10^3/uL (1.8-7.7) H 07/11/25 15:55 Lymph # (Auto) 1.8 10^3/uL (0.8-4.8) 07/11/25 15:55 Ocean # (Auto) 1.0 10^3/uL (0.2-0.9) H 07/11/25 15:55 Eos # (Auto) 0.1 10^3/uL (0.0-0.8) 07/11/25 15:55 Baso # (Auto) 0.0 10^3/uL (0.0-0.1) 07/11/25 15:55 Nucleated RBC % (auto) 0 % 07/11/25 15:55 Nucleated RBCs # 0.0 /100WBC 07/11/25 15:55 Sodium 137 mmol/L (136-145) 07/11/25 15:55 Potassium 3.9 mmol/L (3.5-5.1) 07/11/25 15:55 Chloride 101 mmol/L (98-107) 07/11/25 15:55 Carbon Dioxide 23 mmol/L (22-29) 07/11/25 15:55 Anion Gap 16.9 (5-19) 07/11/25 15:55 BUN 12 mg/dL (8-23) 07/11/25 15:55 Creatinine 0.8 mg/dL (0.5-0.9) 07/11/25 15:55 GFR Calculation 72.9 mL/min (90-130) L 07/11/25 15:55 Glucose 126 mg/dL (65-115) H 07/11/25 15:55 Calculated Osmolality 285 mOsm/kg (285-295) 07/11/25 15:55 Calcium 8.9 mg/dL (8.5-10.5) 07/11/25 15:55 Total Bilirubin 0.2 mg/dL (0.15-1.2) 07/11/25 15:55 AST 16 U/L (0-32) 07/11/25 15:55 ALT 17 U/L (0-33) 07/11/25 15:55 Alkaline Phosphatase 117 U/L (35-105) H 07/11/25 15:55 Total Protein 6.4 g/dL (6.6-8.7) L 07/11/25 15:55 Albumin 4.1 g/dL (3.5-5.2) 07/11/25 15:55 Globulin 2.3 g/dL (1.3-4.6) 07/11/25 15:55 Lipase 29 U/L (13-60) 07/11/25 15:55 Procalcitonin 0.05 ng/mL (0-0.5) 07/11/25 15:55 Influenza A (PCR) Negative (Negative) 07/11/25 17:06 Influenza Type B (PCR) Negative (Negative) 07/11/25 17:06 RSV (PCR) Negative (Negative) 07/11/25 17:06 SARS-CoV-2 (PCR) Negative (Negative) 07/11/25 17:06 All radiology interpretation(s) finalized by discharge ED provider radiology interpretation(s): No acute changes EKG Data EKG 1: Interpretation: Normal sinus rhythm, normal axis, isoelectric ST segments Discharge Plan Discharge Patient Disposition: Home Clinical Impression: Viral respiratory illness, Constipation due to slow transit Condition: Stable Prescriptions: New methylprednisolone [Medrol (Cedrick)] 4 mg tablets,dose pack See Rx Instructions .ROUTE .COMPLEX Qty: 21 0RF Rx Instructions: for 6 days azithromycin 500 mg tablet See Rx Instructions .ROUTE .COMPLEX Qty: 5 0RF Rx Instructions: For 250 mg dose pack: take 500 mg today (day 1), then 250 mg for 4 days (days 2-5) No Action clozapine 100 mg tablet See Rx Instructions PO .COMPLEX Qty: 180 11RF Rx Instructions: Take 2 tabs in the morning and 4 tabs in the evening. citalopram [Celexa] 40 mg tablet 40 mg PO QAM Qty: 30 11RF tramadol 50 mg tablet 50 mg PO BID PRN (Reason: pain) 30 Days Qty: 60 2RF Rx Instructions: Do not fill until 05/10/2025 Must last 30 days hydroxyzine HCl 25 mg tablet 25 mg PO BID PRN (Reason: anxiety) Qty: 60 5RF mirtazapine 45 mg tablet 45 mg PO BEDTIME Qty: 30 11RF atropine [Isopto Atropine] 1 % drops 3 drp sublingual .qhs Qty: 15 5RF albuterol sulfate 90 mcg/actuation HFA aerosol inhaler 2 puff inhalation Q4H PRN (Reason: Shortness Of Breath Or Wheezing) Qty: 8.5 5RF oxybutynin chloride 15 mg tablet extended release 24hr See Rx Instructions .ROUTE .COMPLEX Qty: 90 1RF Dose Instruction: TAKE 1 TABLET BY MOUTH AT BEDTIME Rx Instructions: TAKE 1 TABLET BY MOUTH AT BEDTIME montelukast 10 mg tablet See Rx Instructions .ROUTE .COMPLEX Qty: 90 0RF Dose Instruction: TAKE 1 TABLET BY MOUTH EVERY MORNING Rx Instructions: TAKE 1 TABLET BY MOUTH EVERY MORNING gabapentin 300 mg capsule See Rx Instructions .ROUTE .COMPLEX Qty: 90 3RF Dose Instruction: TAKE 1 CAPSULE BY MOUTH EVERY 8 HOURS FOR CHRONIC PAIN Rx Instructions: TAKE 1 CAPSULE BY MOUTH EVERY 8 HOURS FOR CHRONIC PAIN fluticasone propionate 50 mcg/actuation spray,suspension 2 spray intranasal BID PRN (Reason: allergies) Qty: 48 1RF meloxicam 7.5 mg tablet See Rx Instructions .ROUTE .COMPLEX Qty: 60 1RF Dose Instruction: TAKE ONE TABLET BY MOUTH TWO TIMES A DAY NEEDED FOR PAIN AND INFLAMMATION Rx Instructions: TAKE ONE TABLET BY MOUTH TWO TIMES A DAY NEEDED FOR PAIN AND INFLAMMATION budesonide-formoterol 160-4.5 mcg/actuation HFA aerosol inhaler See Rx Instructions .ROUTE .COMPLEX Qty: 10.2 1RF Dose Instruction: INHALE 2 PUFFS TWICE A DAY Rx Instructions: INHALE 2 PUFFS TWICE A DAY dexlansoprazole 60 mg capsule,biphase delayed releas 60 mg PO DAILY PRN (Reason: Acid Reflux) Qty: 90 0RF rosuvastatin 20 mg tablet 20 mg PO QPM Discharge Orders: Discharge ED (Routine); Ordered 07/11/25 Ordered By: Dian Cadena Referrals: Rebecca Sarmiento DO [Primary Care Provider, Family Practice] Discharge Diet: Full LIquid Discharge Activity: Resume usual activity Patient Instructions: Constipation (ED), Viral Syndrome (ED), Patient Portal & Jimmy Instructions Activity Restrictions/Additional Instructions: - Take a laxative of choice, and utilize a daily probiotic to help with your constipation - At the pharmacy: Medrol Dosepak, azithromycin. Use as directed - Return to ED, with worsening shortness of breath, fever greater 100.4 [facility] you for [facility] for your healthcare needs today. You have been screened and evaluated and felt safe for discharge. Health conditions do change or evolve sometimes and as such it is important that you follow up with your Primary Doctor to be re checked, 3-5 days is a general good time frame for follow up. 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
[2025-07-11 17:29] LABS: Alanine Aminotransferase 17 U/L (0-33); Albumin Level 4.1 g/dL (3.5-5.2); Alkaline Phosphatase 117 U/L (35-105); Anion Gap 16.9 (5-19); Aspartate Amino Transferase 16 U/L (0-32); Blood Urea Nitrogen 12 mg/dL (8-23); Calcium 8.9 mg/dL (8.5-10.5); Carbon Dioxide 23 mmol/L (22-29); Chloride 101 mmol/L (98-107); Globulin 2.3 g/dL (1.3-4.6); Glucose 126 mg/dL (65-115); Lipase 29 U/L (13-60); Osmolality Calculated 285 mOsm/kg (285-295); Potassium 3.9 mmol/L (3.5-5.1); Sodium 137 mmol/L (136-145); Total Protein 6.4 g/dL (6.6-8.7)
[2025-07-11 17:36] LABS: Procalcitonin 0.05 ng/mL (0-0.5)
[2025-07-11 17:53] LABS: Respiratory Syncytial Virus Ce NEGATIVE (Negative); SARS-CoV-2 PCR NEGATIVE (Negative)
== END 2025-07-11 18:20 | disposition home or self-care (01) ==
PROVIDERS: Emergency Provider Physician Assistant; PCP Family Medicine
DX: J06.9 Acute upper respiratory infection, unspecified (principal); K59.01 Slow transit constipation; Z11.52 Encounter for screening for COVID-19; F17.210 Nicotine dependence, cigarettes, uncomplicated; J44.9 Chronic obstructive pulmonary disease, unspecified; E78.2 Mixed hyperlipidemia
CPT/HCPCS: 74022; 80053; 83690; 84145; 85025; 87637; 93005; 96374; 99285; J2919

== ENCOUNTER 2025-07-14 18:24 | Emergency (ER) | payer MEDICARE, MEDICAID, SELFPAY ==
[2024-10-15 11:27] VITALS: BP 132/88; BMI 31.9
[2025-07-14 18:27] VITALS: BP 103/65; PULSE 109; RESP 17; TEMP 36.7; O2SAT 93; BMI 30.2
--- NOTE | 2025-07-14 18:35 | ECG_ITS ---
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
--- OUTSIDE RECORDS SUMMARY | 2025-07-14 18:39 | XMS_ITS | Data Portability ---
Author Organization [facility] Maurilio Quiroz [facility], [place], [facility] Address [address] [place] [address] Care Team Providers Care Clinique Counter Manager Name Role Phone PRIYANKA GARNICA Primary Care Provider Assessment Encounter Date Assessment Date Assessment LastModified by Organization Details LastModified Time 04/24/2025 04/24/2025 Patient presents with symptoms of UTI. Results of dipstick were for UTI. Advised to drink clear fluids, Tylenol for pain and take prescribed medications as instructed. Patient encouraged to follow up within 1 week if not improving. Not available 04/24/2025 11:48:48 Plan of Treatment Reminders Order Date Submit Date Provider Last Modified By Organization Details Last Modified Time Details Appointments None recorded. Lab urinalysis, dipstick 2024 [email or web address] [facility] ([facility]), [address] [place] [address], [address], 12:26:22 culture, urine 2024 025 [email or web address] [facility], [address] [place] [address], [address], [place], [address], 12:26:22 culture, urine 2024 025 SHARRI [facility], [address] [place] [address], [address], [place], [address], 11:37:28 urinalysis, dipstick 2024 [email or web address] [facility] ([facility]), [address] [place], [address], 15:30:25 culture, urine 2024 025 SHARRI [facility], [address] [place] [address], [address] [place], [address], 5 04:25:59 urinalysis, dipstick 2024 [email or web address] [facility] ([facility]), [address] [place], [address], 13:31:30 urinalysis, dipstick [address] ([facility]), [address] [place], [address], 5 08:09:08 culture, urine 2024 025 [email or web address] [facility], [address] [place] [address], [address] [place], [address], 5 08:09:08 Referral None recorded. Procedures None recorded. Surgeries None recorded. Imaging None recorded. Medication Orders Macrobid 100 mg capsule 2024 025 [facility]/Pharmacy #[id number], [address], [address], 05:01:53 cefdinir 300 mg capsule 2024 025 [facility]/Pharmacy #[id number], [address], [address], [address], 5 05:01:16 cephalexin 500 mg capsule 2024 025 [facility]/Pharmacy #[id number], [address], [address], [place], [address], 05:01:32 tizanidine 2 mg tablet 2024 025 [email or web address] [id number] [address], [address], [place], [address], 13:16:35 cephalexin 500 mg capsule 2024 025 [id number], [address], [address], [place], [address], 05:01:32 Patient TargetsNo targets recorded. Patient Instructions Encounter Date Encounter Id Patient Instructions Last Modified By Organization Details Last Modified Time 12/10/2024 [id number] smoking cessatio n counseling, greater than 3 minutes up to 10 minutes* [email or web address] Not available 12/18/2024 14:57:35 04/24/2025 [id number] Increase fluids and follow up for worsening Not available 04/24/2025 12:23:50 06/16/2025 [id number] Increase fluids and follow up for worsening Not available 06/16/2025 15:22:12 Reason for Referral None Reported. Results Created Date Observation Date Name Description Value Unit Range Abnormal Flag Note LastModifiedBy Organization Detail LastModifiedTime 10/14/1910/15/2024 CULTU RE, URINE , ROUTI NE culture, urine, routine SEE NOTE abnormal CULTU RE, URINE , ROUTI NE Micro Numbe r: [id number] Test Statu s: Final Speci men [...] lexin and lorac arbef . Not Available [facility] [address] [place], [address], 10/16/2024 00:22:45 10/14/1910/13/2024 urina lysis , dipst ick Leukocytes Large Not Available [facility] ([facility]) [address] [place] [address], [address], 10/13/2024 10:29:39 10/14/19 25 10/13/2024 urina lysis , dipst ick Nitrite negati ve Not Available [facility] ([facility]) [address] [place], [address], 10/13/2024 10:29:39 10/14/19 25 10/13/2024 urina lysis , dipst ick Urobilinogen .2 Not Available [facility] ([facility]) [address] [place], [address], 10/13/2024 10:29:39 10/14/19 25 10/13/2024 urina lysis , dipst ick Protein Trace Not Available [facility] ([facility]) [address] [place], [address], 10/13/2024 10:29:39 10/14/19 25 10/13/2024 urina lysis , dipst ick pH 6.0 Not Available [facility] ([facility]) [address] [place], [address], 10/13/2024 10:29:39 10/14/19 25 10/13/2024 urina lysis , dipst ick Blood Modera te Not Available [facility] ([facility]) [address] [place], [address], 10/13/2024 10:29:39 10/14/19 25 10/13/2024 urina lysis , dipst ick Specific [place] 1.030 Not Available [facility] ( [facility]) [address] [place], [address], 10/13/2024 10:29:39 10/14/19 25 10/13/2024 urina lysis , dipst ick Ketone Negati ve Not Available [facility] ([facility]) [address] [place], [address], 10/13/2024 10:29:39 10/14/19 25 10/13/2024 urina lysis , dipst ick Bilirubin Small Not Available [facility] ([facility]) [address] [place], [address], 10/13/2024 10:29:39 10/14/19 25 10/13/2024 urina lysis , dipst ick Glucose Negati ve Not Available [facility] ([facility]) [address] [place], [address], 10/13/2024 10:29:39 10/14/19 25 10/13/2024 urina lysis , dipst ick Appearance Slight ly Cloudy Not Available [facility] ([facility]) [address] [place], [address], 10/13/2024 10:29:39 10/14/19 25 10/13/2024 urina lysis , dipst ick Color Dark Yellow Not Available [facility] ([facility]) [address] [place], [address], 10/13/2024 10:29:39 04/02/20 25 04/05/2025 CULTU RE, URINE , ROUTI NE culture, urine, routine SEE NOTE abnormal CULTU RE, URINE , ROUTI NE Micro Numbe r: [id number] Test Statu s: Final Speci men Sourc e: Urine , clean catch Speci men Quali ty: Adequ ate Resul t: Great er than 100,0 00 CFU/m L of Esche radha a coli COMME NT: Addit ional non-p redom inati ng organ ism(s ) isola js. These organ isms, commo nly found on exter nal and inter nal genit radha, are consi dered colon izers . No furth er testi ng perfo rmed. E.col i ----- ----- ----- - INT MIRNA AMOX/ CLAVU LANAT E S 4 AMP/S ULBAC GRACIA S 4 CEFAZ CECELIA I 4 CEFEP CORRINA S <=0.1 2 CEFTA ZIDIM E S <=0.5 CEFTR IAXON E S <=0.2 5 CIPRO FLOXA MARVEL S <=0.0 6 GENTA MICIN S <=1 IMIPE NEM S <=0.2 5 LEVOF LOXAC IN S <=0.1 2 MEROP ENEM S <=0.2 5 NITRO FURAN TOIN S <=16 PIP/T AZOBA CTAM S <=4 TRIME THOPR IM/MONTE LFA S <=20 S = Susce ptibl e I = Inter media te R = Resis tant NS = Not susce ptibl e SDD = Susce ptibl e Dose Depen dent * = Not Teste d NR = Not Repor js NN = See Thera py Comme nts Not Available [facility] [address] [place], [address], 04/05/2025 04:25:59 04/02/2004/02/2025 urina lysis , dipst ick Leukocytes Large Not Available [facility] ( [facility] [address] [place], [address], 04/02/2025 12:58:19 04/02/2004/02/2025 urina lysis , dipst ick Nitrite positi ve Not Available [facility] ([facility]) [address] [place], [address], 04/02/2025 12:58:19 04/02/2004/02/2025 urina lysis , dipst ick Urobilinogen 1 Not Available [facility] ([facility]) [address] [place], [address], 04/02/2025 12:58:19 04/02/2004/02/2025 urina lysis , dipst ick Protein 300 Not Available [facility] ([facility]) [address] [place], [address], 04/02/2025 12:58:19 04/02/2004/02/2025 urina lysis , dipst ick pH 5.5 Not Available [facility] ([facility]) [address] [place], [address], 04/02/2025 12:58:19 04/02/2004/02/2025 urina lysis , dipst ick Blood Large Not Available [facility] ([facility]) [address] [place], [address], 04/02/2025 12:58:19 04/02/2004/02/2025 urina lysis , dipst ick Specific [place] 1.025 Not Available [facility] ( [facility]) [address] [place], [address], 04/02/2025 12:58:19 04/02/2004/02/2025 urina lysis , dipst ick Ketone Small Not Available [facility] ([facility]) [address] [place], [address], 04/02/2025 12:58:19 04/02/2004/02/2025 urina lysis , dipst ick Bilirubin Modera te Not Available [facility] ([facility]) [address] [place], [address], 04/02/2025 12:58:19 04/02/2004/02/2025 urina lysis , dipst ick Glucose Negati ve Not Available [facility] ([facility]) [address] [place], [address], 04/02/2025 12:58:19 04/02/2004/02/2025 urina lysis , dipst ick Appearance Turbid Not Available [facility] ([facility]) [address] [place], [address], 04/02/2025 12:58:19 04/02/20 25 04/02/2025 urina lysis , dipst ick Color Red Not Available [facility] ([facility]) [address] [place], [address], 04/02/2025 12:58:19 04/24/20 25 04/27/2025 CULTU RE, URINE , ROUTI NE culture, urine, routine SEE NOTE abnormal CULTU RE, URINE , ROUTI NE Micro Numbe r: [id number] Test Statu s: Final Speci men Sourc e: Urine Speci men Quali ty: Adequ ate Resul t: 10,00 0-49, 000 CFU/m L of Esche radha a coli COMME NT: Addit ional non-p redom inati ng organ ism(s ) isola js. These organ isms, commo nly found on exter nal and inter nal genit radha, are consi dered colon izers . No furth er testi ng perfo rmed. E.col i ----- ----- ----- - INT MIRNA AMOX/ CLAVU LANAT E S 4 AMP/S ULBAC GRACIA S 4 CEFAZ CECELIA I 4 CEFEP CORRINA S <=0.1 2 CEFTA ZIDIM E S <=0.5 CEFTR IAXON E S <=0.2 5 CIPRO FLOXA MARVEL S <=0.0 6 GENTA MICIN S <=1 IMIPE NEM S <=0.2 5 LEVOF LOXAC IN S <=0.1 2 MEROP ENEM S <=0.2 5 NITRO FURAN TOIN S 32 PIP/T AZOBA CTAM S <=4 TRIME THOPR IM/MONTE LFA S <=20 S = Susce ptibl e I = Inter media te R = Resis tant NS = Not susce ptibl e SDD = Susce ptibl e Dose Depen dent * = Not Teste d NR = Not Repor js NN = See Thera py Comme nts Not Available [facility] [address], [place], [address], 04/27/2025 11:37:28 04/24/2004/24/2025 urina lysis , dipst ick Leukocytes Modera te Not Available [facility] ([facility]) [address] [place], [address], 04/24/2025 11:54:48 04/24/2004/24/2025 urina lysis , dipst ick Nitrite negati ve Not Available [facility] ([facility]) [address] [place], [address], 04/24/2025 11:54:48 04/24/2004/24/2025 urina lysis , dipst ick Urobilinogen 4 Not Available [facility] ([facility]) [address] [place], [address], 04/24/2025 11:54:48 04/24/2004/24/2025 urina lysis , dipst ick Protein 100 Not Available [facility] ([facility]) [address] [place], [address], 04/24/2025 11:54:48 04/24/2004/24/2025 urina lysis , dipst ick pH 6.0 Not Available [facility] ([facility]) [address] [place], [address], 04/24/2025 11:54:48 04/24/2004/24/2025 urina lysis , dipst ick Blood Small Not Available [facility] ([facility]) [address] [place], [address], 04/24/2025 11:54:48 04/24/20 25 04/24/2025 urina lysis , dipst ick Specific [place] 1.020 Not Available [facility] ( [facility]) [address] [place], [address], 04/24/2025 11:54:48 04/24/2004/24/2025 urina lysis , dipst ick Ketone Small Not Available [facility] ([facility]) [address] [place], [address], 04/24/2025 11:54:48 04/24/2004/24/2025 urina lysis , dipst ick Bilirubin Small Not Available [facility] ([facility]) [address] [place], [address], 04/24/2025 11:54:48 04/24/2004/24/2025 urina lysis , dipst ick Glucose Negati ve Not Available [facility] ([facility]) [address] [place], [address], 04/24/2025 11:54:48 04/24/2004/24/2025 urina lysis , dipst ick Appearance Cloudy Not Available [facility] ([facility]) [address] [place], [address], 04/24/2025 11:54:48 04/24/2004/24/2025 urina lysis , dipst ick Color Dark Yellow Not Available [facility] ([facility]) [address] [place], [address], 04/24/2025 11:54:48 06/16/2006/17/2025 CULTU RE, URINE , ROUTI NE culture, urine, routine SEE NOTE CULTU RE, URINE , ROUTI NE Micro Numbe r: [id number] Test Statu s: Final Speci men Sourc e: Urine Speci men Quali ty: Adequ ate Resul t: Mixed genit al saleem isola js. These super ficia l bacte phu are not indic ative of a urina ry tract infec tion. No furth er organ ism ident ifica tion is cindi nted on this speci men. If clini michelle indic ated, recol lect clean -catc h, mid-s tream urine and trans lizz immed iatel y to Urine Cultu re Trans port Tube. Not Available [facility] [address] [place], [address], 06/17/2025 21:31:01 06/16/2006/16/2025 urina lysis , dipst ick Leukocytes Modera te Not Available [facility] ([facility]) [address] [place] [address], [address], 06/16/2025 14:40:04 06/16/2006/16/2025 urina lysis , dipst ick Nitrite negati ve Not Available [facility] ([facility]) [address] [place] [address], [address], 06/16/2025 14:40:04 06/16/2006/16/2025 urina lysis , dipst ick Urobilinogen .2 Not Available [facility] ([facility]) [address] [place] [address], [address], 06/16/2025 14:40:04 06/16/2006/16/2025 urina lysis , dipst ick Protein Negati ve Not Available [facility] ([facility]) [address] [place] [address], [address], 06/16/2025 14:40:04 06/16/2006/16/2025 urina lysis , dipst ick pH 6.0 Not Available [facility] ([facility]) [address] [place] [address], [address], 06/16/2025 14:40:04 06/16/2006/16/2025 urina lysis , dipst ick Blood Large Not Available [facility] ([facility]) [address] [place], [address], 06/16/2025 14:40:04 06/16/2006/16/2025 urina lysis , dipst ick Specific [place] 1.005 Not Available [facility] ( [facility]) [address] [place], [address], 06/16/2025 14:40:04 06/16/2006/16/2025 urina lysis , dipst ick Ketone Negati ve Not Available [facility] ([facility]) [address] [place], [address], 06/16/2025 14:40:04 06/16/2006/16/2025 urina lysis , dipst ick Bilirubin Negati ve Not Available [facility] ([facility]) [address] [place], [address], 06/16/2025 14:40:04 06/16/2006/16/2025 urina lysis , dipst ick Glucose Negati ve Not Available [facility] ([facility]) [address] [place], [address], 06/16/2025 14:40:04 06/16/2006/16/2025 urina lysis , dipst ick Appearance Clear Not Available [facility] ([facility]) [address] [place], [address], 06/16/2025 14:40:04 06/16/2006/16/2025 urina lysis , dipst ick Color Yellow Not Available [facility] ([facility]) [address] [place], [address], 06/16/2025 14:40:04 Result Notes None recorded. Problems Name Problem SNOMED Code Status Onset Date Resolution Date Notes Provider Name and Address Organization Details Recorded Time History of tubal ligation 040023436 Active 2020 Tubal Ligation; 10/05/2020 11:26AM by Natali Ibanez, Office Visit; Promoted; acuity set as *; Not Available [facility] 3 03:08:31 Fracture of foot 76907667 Active 2020 Fracture Of Foot; closed of the fourth & shaft & neck of 5th metatarsal of right foot; 10/05/2020 11:26AM by Natali Ibanez, Office Visit; Promoted; acuity set as *; Not Available [facility] 3 03:08:31 Bipolar disorder 93418422 Active 2020 bipolar disorder; 10/05/2020 11:26AM by Natali Ibanez, Office Visit; Promoted; acuity set as *; Not Available [facility] 3 03:08:32 Tonsillec william Active 2020 tonsils removed,19 69; 10/05/2020 11:26AM by Natali Ibanez, Office Visit; Promoted; acuity set as *; Not Available [facility] 3 03:08:32 Strain of muscle of chest wall 578624381 Active 2024 Lino Marie MD [address] [place] [address], [address] , [facility] 12:55:53 Problem Notes None recorded. Procedures Surgical History Date Name Laterality Status Provider Name and Address Organization Details Recorded Time hysterectomy completed Ayanna Russo [facility] 09/05/2024 12:04:53 Imaging Results None recorded. Procedure Notes None recorded. Medical Equipment None Reported. Allergies Allergen ID Allergen Name Allergen Category Reaction Reaction Severity Criticality Documentation Date Start Date Code Code System Note Provider Name and Address Organization Details Recorded Time 96516 naproxen medicatio n respirato ry distress moderate low 02/17/2023 7258 RxNorm Meera agrawal [facility] 5 10:48:23 04149 fluticaso ne / salmetero l medicatio n other Not available Not available 02/17/2023 22892 5 RxNorm React ion: throa t irrit ation , reflu x worse fermin Taradevon [facility] 5 10:48:16 80792 naproxen medicatio n Not available Not available Not available 08/15/2024 7258 RxNorm Rosaharshdevon Camilo [facility], [facility] 5 10:48:35 51078 ibuprofen medicatio n Not available Not available Not available 10/13/2024 5640 RxNorm Maria Esther [facility] 5 10:34:17 Medications Name Sig Start Date Stop Date Status Note LastModified by Organization Details LastModified Time oxybutyni n chloride ER 15 mg tablet,ex tended release 24 hr TAKE 1 TABLET BY MOUTH EVERYDAY AT BEDTIME active Not Available Not Available [...] completed Not Available Not Available Not Available tizanidin e 2 mg tablet TAKE 1 TABLET BY MOUTH TWICE A DAY NEEDED FOR MUSCLE SPASMS active Not Available Not Available No t Available citalopra m 40 mg tablet TAKE 1 TABLET BY MOUTH IN THE MORNING active Not Available Not Available No t Available cetirizin e 10 mg tablet TAKE ONE CAPSULE ORALLY DAILY NEEDED FOR ALLERGY SYMPTOMS 09/05 completed Not Available Not Available Not Available azithromy marvel 250 mg tablet TAKE 2 TABLETS BY MOUTH TODAY, THEN TAKE 1 TABLET DAILY FOR 4 DAYS DIRECTED 04/24 completed Not Available Not Available Not Available clozapine 100 mg tablet TAKE 2 TABS IN THE MORNING AND 4 TABS IN THE EVENING. active Not Available Not Available No t [...] MOUTH TWICE A DAY NEEDED FOR PAIN 30 DAYS. active Not Available Not Available No t Available Macrobid 100 mg capsule Take 1 capsule every 12 hours by oral route with meal(s) for 7 days. 06/30 completed Not Available Not Available Not Available meloxicam 7.5 mg tablet TAKE ONE TABLET BY MOUTH TWO TIMES A DAY NEEDED FOR PAIN AND INFLAMMA TION active Not Available Not Available No t Available lorazepam 0.5 mg tablet TAKE 1 TABLET BY MOUTH DAILY NEEDED FOR ANXIETY 04/02 completed Not Available Not Available Not Available methocarb divina 750 mg tablet TAKE 1 TABLET BY MOUTH EVERY 6 HOURS NEEDED FOR SPASMS 10/13 completed Not Available Not Available Not Available DOK 100 mg capsule two times daily as needed for constipa tion 04/02 completed Not Available Not Available Not Available baclofen 10 mg tablet TAKE 1 TABLET BY MOUTH TWICE A DAY NEEDED FOR PAIN 09/05 completed Not Available Not Available Not Available cephalexi n 500 mg capsule Take 1 capsule 3 times a day by oral route for 7 days. 04/16 completed Not Available Not Available Not Available erythromy marvel 5 mg/gram (0.5 %) eye ointment APPLY ONCE INTO THE EYE(S) EVERY 6 HOURS FOR 5 DAYS 09/05 completed Not Available Not Available Not Available benztropi ne 1 mg tablet TAKE 1 TABLET BY MOUTH AT 7:30 AM DAILY 06/16 completed Not Available Not Available Not Available gabapenti n 300 mg capsule TAKE [...] Not Available Not Available No t Available hydroxyzi ne HCl 25 mg tablet TAKE 1 TABLET BY MOUTH TWICE A DAY NEEDED FOR ANXIETY active Not Available Not Available No t Available lorazepam 1 mg tablet TAKE 1 TABLET BY MOUTH TWICE A DAY NEEDED 04/02 completed Not Available Not Available Not Available methylpre dnisolone 4 mg tablets in [...] Not Available Not Available No t Available atropine 1 % eye drops PLACE 3 DROPS UNDER TONGUE AT BEDTIME active Not Available Not Available No t Available cefdinir 300 mg capsule Take 1 capsule every 12 hours by oral route with meal(s) for 7 days. 05/08 completed Not Available Not Available Not Available fluticaso ne propionat e 50 mcg/actua tion nasal spray,terry pension 2 SPRAY INTRANAS ALLY TWICE A DAY NEEDED FOR ALLERGIE S active Not Available Not Available No t [...] 3 TIMES A DAY BY ORAL ROUTE. 04/02 completed Not Available Not Available Not Available rosuvasta tin 20 mg tablet TAKE 1 TABLET BY MOUTH EVERY DAY FOR CHOLESTE ROL active Not Available Not Available No t Available clozapine 50 mg tablet TAKE 1TAB BY MOUTH IN THE MORNING WITH 200 MG DOSE OF CLOZAPIN E. 06/16 completed Not Available Not Available Not Available meloxicam daily 09/05 completed Not Available [...] two times daily 09/[address] Martinez ([facility]) Not Available Not Available Not Available [...] delayed release TAKE 1 CAPSULE BY MOUTH DAILY NEEDED FOR ACID REFLUX. active Not Available Not Available No t Available Dexilant daily 09/05 completed stop prilosec Not Available Not Available Not Available Vitals Date Recorded Body height Body mass index (BMI) Body weight Body temperature Heart rate Oxygen saturation Systolic And Diastolic Provider Name and Address Organization Details Last Updated DateTime 5 157.48 cm 30.7 kg/m2 48469.5 2 g 98.3 [degF] 107 /min 94 % 128/72 mm[Hg] Maria Esther Verduzco [facility] 5 10:37:14 Date Recorded Body height Body mass index (BMI) Body weight Respiratory rate Oxygen saturation Heart rate Body temperature Systolic And Diastolic Provider Name and Address Organization Details Last Updated DateTime 5 157.48 cm 29.9 kg/m2 30990.3 6 g 17 /min 96 % 85 /min 98.1 [degF] 112/68 mm[Hg] SAILAJA BARFIELD [facility] 5 12:19:53 Date Recorded Body height Body mass index (BMI) Body weight Oxygen saturation Heart rate Respiratory rate Body temperature Systolic And Diastolic Provider Name and Address Organization Details Last Updated DateTime 5 157.48 cm 29.4 kg/m2 91316.3 7 g 96 % 104 /min 18 /min 98.2 [degF] 140/80 mm[Hg] Randa Moreland [facility] 5 13:01:33 Date Recorded Body height Body mass index (BMI) Body weight Oxygen saturation Heart rate Respiratory rate Body temperature Systolic And Diastolic Provider Name and Address Organization Details Last Updated DateTime 5 157.48 cm 29.1 kg/m2 83746.2 9 g 97 % 107 /min 20 /min 98.1 [degF] 112/66 mm[Hg] DEYA CANSECOY [facility] 5 11:52:15 Date Recorded Body height Body mass index (BMI) Body weight Oxygen saturation Heart rate Body temperature Systolic And Diastolic Provider Name and Address Organization Details Last Updated DateTime 5 157.48 cm 29.1 kg/m2 15298.1 9 g 94 % 94 /min 98.4 [degF] 118/78 mm[Hg] Korin Murdock [facility] 5 14:50:58 Social History Question Answer Notes LastModified by Organizat ion Details LastModified Time Tobacco Smoking Status Current Every Day Smoker Sabrina agrawal [facility] 03/26/2024 13:50:31 What Is Your Level Of Caffeine Consumption? Occasional [email or web address] Information not available 09/05/2024 What Was The Date Of Your Most Recent Tobacco Screening? 06/16/2025 [email or web address] Information not available 06/16/2025 What Is Your Current Pack Years? 10-19packyears Information not available 08/15/2024 At What Age Did You Start Smoking Tobacco? 13 Information not available 08/15/2024 How Much Tobacco Do You Smoke? 0.25 PPD Information not available 04/24/2025 How Many Years Have You Smoked Tobacco? [...] virus, trivalent, preservative 0 completed Not Available [facility] 02/17/2023 02:51:36 Influenza, split virus, trivalent, preservative 5 completed Not Available [facility] 02/17/2023 02:51:36 Influenza, split virus, trivalent, preservative 8 completed Not Available [facility] 02/17/2023 02:51:36 tetanus toxoid, adsorbed 5 completed Not Available [facility] 02/17/2023 02:51:36 Influenza, split virus, trivalent, preservative 7 completed Not Available [facility] 02/17/2023 02:51:36 Hep A-Hep B 4 completed Not Available [facility] 02/17/2023 02:51:36 Influenza, MDCK, quadrivalent, PF 1 completed Sabrina agrawal [facility] 03/26/2024 13:48:11 zoster recombinant 2 completed Sabrina agrawal [facility] 03/26/2024 13:48:11 zoster recombinant 2 completed Sabrina agrawal [facility] 03/26/2024 13:48:11 COVID-19, mRNA, LNP-S, PF, 100 mcg/0.5mL dose or 50 mcg/0.25mL dose 1 [facility]/26/2024 13:48:11 COVID-19, mRNA, LNP-S, PF, 30 mcg/0.3 mL dose 1 completed [facility] 03/26/2024 13:48:11 COVID-19, mRNA, LNP-S, PF, 30 mcg/0.3 mL dose 1 completed Sabrina agrawal [facility] 03/26/2024 13:48:11 Pneumococcal conjugate PCV20, polysaccharide [id number] conjugate, adjuvant, PF 3 completed Sabrina agrawal [facility] 03/26/2024 13:48:11 COVID-19, mRNA, LNP-S, PF, 50 mcg/0.5 mL 3 completed [facility] 03/26/2024 13:48:11 pneumococcal polysaccharide PPV23 5 completed Sabrina agrawal [facility] 03/26/2024 13:48:11 Tdap 3 completed [facility] 03/26/2024 13:48:11 Tdap 1 completed [facility] 03/26/2024 13:48:11 Influenza, split virus, trivalent, preservative 2 completed [facility] 03/26/2024 13:48:11 Td (adult), 5 Lf tetanus toxoid, preservative free, adsorbed 3 completed Sabrina Reis null, [facility] 03/26/2024 13:48:11 Td (adult), 2 Lf tetanus toxoid, preservative free, adsorbed 4 completed Sabrina Germaniler null, [facility] 03/26/2024 13:48:11 Influenza, split virus, quadrivalent, PF 3 completed Sabirna Pliler null, [facility] 03/26/2024 13:48:11 Influenza, MDCK, trivalent, PF 4 completed Sabrina Reis null, [facility] 03/26/2024 13:48:11 COVID-19, mRNA, LNP-S, PF, 50 mcg/0.5 mL 4 completed Ayanna agrawal, [facility] 09/05/2024 11:58:36 Influenza, MDCK, trivalent, PF 5 completed Not Available [facility] 04/24/2025 11:38:59 COVID-19, mRNA, LNP-S, PF, 50 mcg/0.5 mL 5 completed Not Available [facility] 04/24/2025 11:38:59 Past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
--- OUTSIDE RECORDS SUMMARY | 2025-07-14 18:40 | XMS_ITS | Clinical Summary ---
Author Organization [facility] Address [address] Ragland: Epic Prelude ADT OMKAR HTOMAS [address] Care Team Providers Care Pool Table Operator Name Role Phone Conversion, History Primary Care [...] 0 Active fluticasone propionate (FLONASE) 50 mcg/spray [place], Suspension nasal inhaler 0 Active cloZAPine (CLOZARIL) [...] on file Legal Sex Female 4:18 AM [employer] Gender Identity Not on file Sexual Orientation [...] - 1-dose 75+ series) 2039 Care Teams Pool Table Operator Relationship Specialty Start Date End Date Conversion, History NO ADDRESS ON FILE PCP - General 04/24/07
--- OUTSIDE RECORDS SUMMARY | 2025-07-14 18:40 | XMS_ITS | Continuity of Care Document ---
Author Organization [facility] Maurilio Quiroz [facility] Radha, LScotLRubin, [facility] ([facility]) Address [address] [place] [address] Care Team Providers Care Library Acquisitions Technician Name Role Phone PRIYANKA GARNICA Primary Care Provider Assessment No assessment recorded. Plan of Treatment Reminders Order Date Submit Date Provider Last Modified By Organization Details Last Modified Time Details Appointments None recorded. Lab urinalysis , dipstick 2024 025 [email or web address] [facility] ([facility]), [address] [place], [address], 12:26:22 culture, urine 2024 025 [email or web address] [facility], [address] [place] [address], [facility] [address] [place], [address], 12:26:22 Referral None recorded. Procedures None recorded. Surgeries None recorded. Imaging None recorded. Medication Orders Macrobid 100 mg capsule 2024 025 [id number], [address] [facility], [facility] [place], [address], 05:01:53 Patient TargetsNo targets recorded. Patient Instructions Encounter Date Encounter Id Patient Instructions Last Modified By Organization Details Last Modified Time 06/16/2025 [id number] Increase fluids and follow up for worsening [email or web address] Not available 06/16/2025 15:22:12 Reason for Referral None Reported. Results Created Date Observation Date Name Description Value Unit Range Abnormal Flag Note LastModifiedBy Organization Detail LastModifiedTime 06/16/2006/17/2025 CULTU RE, URINE , ROUTI NE culture, urine, routine SEE NOTE CULTU RE, URINE , ROUTI NE Micro Numbe r: [id number] Test Statu s: Final Speci men Sourc e: Urine Speci men Quali ty: Adequ ate Resul t: Mixed genit al saleem isola js. These super ficia l bacte phu are not indic ative of a urina ry tract infec tion. No furth er organ ism ident ifica tion is warra nted on this speci men. If clini michelle indic ated, recol lect clean -catc h, mid-s tream urine and trans lizz immed iatel y to Urine Cultu re Trans port Tube. Not Available [facility] [address] [place], [address], 06/17/2025 21:31:01 06/16/2006/16/2025 urina lysis , dipst ick Leukocytes Modera te Not Available [facility] ([facility]) [address] [place] [address], [phone], 06/16/2025 14:40:04 06/16/2006/16/2025 urina lysis , dipst ick Nitrite negati ve Not Available [facility] ([facility]) [address] [place] [address], [phone], 06/16/2025 14:40:04 06/16/2006/16/2025 urina lysis , dipst ick Urobilinogen .2 Not Available [facility] ([facility]) [address] [place] [address], [phone], 06/16/2025 14:40:04 06/16/20 25 06/16/2025 urina lysis , dipst ick Protein Negati ve Not Available [facility] ([facility]) [address] [place] [address], [phone], 06/16/2025 14:40:04 06/16/2006/16/2025 urina lysis , dipst ick pH 6.0 Not Available [facility] ([facility]) [address] [place], [address], 06/16/2025 14:40:04 06/16/2006/16/2025 urina lysis , dipst ick Blood Large Not Available [facility] ([facility]) [address] [place], [address], 06/16/2025 14:40:04 06/16/2006/16/2025 urina lysis , dipst ick Specific Gordon 1.005 Not Available [facility] ( [facility]) [address] [place], [address], 06/16/2025 14:40:04 06/16/2006/16/2025 urina lysis , dipst ick Ketone Negati ve Not Available [facility] ([facility]) [address] [place], [address], 06/16/2025 14:40:04 06/16/2006/16/2025 urina lysis , dipst ick Bilirubin Negati ve Not Available [facility] ([facility]) [address] [place], [address], 06/16/2025 14:40:04 06/16/2006/16/2025 urina lysis , dipst ick Glucose Negati ve Not Available [facility] ([facility]) [address] [place], [address], 06/16/2025 14:40:04 06/16/2006/16/2025 urina lysis , dipst ick Appearance Clear Not Available [facility] ( [facility] [address] [place], [address], 06/16/2025 14:40:04 06/16/2006/16/2025 urina lysis , dipst ick Color Yellow Not Available [facility] ([facility]) [address] [place], [address], 06/16/2025 14:40:04 Result Notes None recorded. Problems Name Problem SNOMED Code Status Onset Date Resolution Date Notes Provider Name and Address Organization Details Recorded Time History of tubal ligation 287062634 Active 2020 Tubal Ligation; 10/05/2020 11:26AM by Natali Ibanze, Office Visit; Promoted; acuity set as *; Not Available [facility] 3 03:08:31 Fracture of foot 26891535 Active 2020 Fracture Of Foot; closed of the fourth & shaft & neck of 5th metatarsal of right foot; 10/05/2020 11:26AM by Natali Ibanez, Office Visit; Promoted; acuity set as *; Not Available [facility] 3 03:08:31 Bipolar disorder 91326634 Active 2020 bipolar disorder; 10/05/2020 11:26AM by Natali Ibanez, Office Visit; Promoted; acuity set as *; Not Available [facility] 3 03:08:32 Tonsillec william Active 2020 tonsils removed,19 69; 10/05/2020 11:26AM by Natali Ibaenz, Office Visit; Promoted; acuity set as *; Not Available [facility] 3 03:08:32 Strain of muscle of chest wall 680574804 Active 2024 Lino Marie MD [address] [place], [address] , [facility] 12:55:53 Problem Notes None recorded. Procedures Surgical History Date Name Laterality Status Provider Name and Address Organization Details Recorded Time [facility] 12:04:53 Imaging Results None recorded. Procedure Notes None recorded. Medical Equipment None Reported. Allergies Allergen ID Allergen Name Allergen Category Reaction Reaction Severity Criticality Documentation Date Start Date Code Code System Note Provider Name and Address Organization Details Recorded Time 38393 naproxen medicatio n respirato ry distress moderate low 02/17/2023 7258 RxNorm Meera Page [facility] 5 10:48:23 23879 fluticaso ne / salmetero l medicatio n other Not available Not available 02/17/2023 72332 5 RxNorm React ion: throa t irrit ation , reflu x worse fermin Meera Page [facility] 5 10:48:16 74576 naproxen medicatio n Not available Not available Not available 08/15/2024 7258 RxNorm Meera Page [facility] 5 10:48:35 27224 ibuprofen medicatio n Not available Not available Not available 10/13/2024 5640 RxNorm Maria Esther Dax [facility] 5 10:34:17 Medications Name Sig Start Date [...] Flonase daily 03/26 completed 0; Recorded 10/06/19 11:27AM by Natali Ibanez, Office Visit; Not [...] two times daily 09/[address] Martinez ([facility]) Not Available Not Available Not Available [...] and Address Organization Details Last Updated DateTime 11/25/202 5 157.48 cm 29.1 kg/m2 96328.1 9 g 94 % 94 /min 98.4 [degF] 118/78 mm[Hg] Korin Murdock [facility] 14:50:58 Social History Question Answer Notes LastModified by Organizat ion Details LastModified Time Tobacco Smoking Status Current Every Day Smoker Sabrina Reis nghia [facility] 03/26/2024 13:50:31 What Is Your Level Of Caffeine Consumption? Occasional [email or web address] Information not available 09/05/2024 What Was The Date Of Your Most Recent Tobacco Screening? 06/16/2025 [email or web address] Information not available 06/16/2025 What Is Your Current Pack Years? 10-19packyears Information not available 08/15/2024 At What Age Did You Start Smoking Tobacco? 13 Information not available 08/15/2024 How Much Tobacco Do You Smoke? 0.25 PPD [email or web address] Information not available 04/24/2025 How Many Years [...] virus, trivalent, preservative 0 completed Not Available [facility] 02/17/2023 02:51:36 Influenza, split virus, trivalent, preservative 5 completed Not Available [facility] 02/17/2023 02:51:36 Influenza, split virus, trivalent, preservative 8 completed Not Available [facility] 02/17/2023 02:51:36 tetanus toxoid, adsorbed 5 completed Not Available [facility] 02/17/2023 02:51:36 Influenza, split virus, trivalent, preservative 7 completed Not Available [facility] 02/17/2023 02:51:36 Hep A-Hep B 4 completed Not Available [facility] 02/17/2023 02:51:36 Influenza, MDCK, quadrivalent, PF 1 [facility] 03/26/2024 13:48:11 zoster recombinant 2 completed Sabrina Reis [facility] 03/26/2024 13:48:11 zoster recombinant 2 completed [facility] 03/26/2024 13:48:11 COVID-19, mRNA, LNP-S, PF, 100 mcg/0.5mL dose or 50 mcg/0.25mL dose 1 completed [facility] 03/26/2024 13:48:11 COVID-19, mRNA, LNP-S, PF, 30 mcg/0.3 mL dose 1 completed [facility] 03/26/2024 13:48:11 COVID-19, mRNA, LNP-S, PF, 30 mcg/0.3 mL dose 1 completed Sabrina Reis [facility] 03/26/2024 13:48:11 Pneumococcal conjugate PCV20, polysaccharide AGN418 conjugate, adjuvant, PF 3 completed [facility] 03/26/2024 13:48:11 COVID-19, mRNA, LNP-S, PF, 50 mcg/0.5 mL 3 completed Sabrina Reis [facility] 03/26/2024 13:48:11 pneumococcal polysaccharide PPV23 5 completed Sabrina Reis [facility] 03/26/2024 13:48:11 Tdap 3 completed Sarbina Reis [facility] 03/26/2024 13:48:11 Tdap 1 completed Sabrina Reis [facility] 03/26/2024 13:48:11 Influenza, split virus, trivalent, preservative 2 completed Sabrina Reis [facility] 03/26/2024 13:48:11 Td (adult), 5 Lf tetanus toxoid, preservative free, adsorbed 3 completed Sabrina Reis [facility] 03/26/2024 13:48:11 Td (adult), 2 Lf tetanus toxoid, preservative free, adsorbed 4 completed Sabrina Reis [facility] 03/26/2024 13:48:11 Influenza, split virus, quadrivalent, PF 3 completed Sabrina Reis [facility] 03/26/2024 13:48:11 Influenza, MDCK, trivalent, PF 4 completed Sabrina Reis [facility] 03/26/2024 13:48:11 COVID-19, mRNA, LNP-S, PF, 50 mcg/0.5 mL 4 completed [facility] 09/05/2024 11:58:36 Influenza, MDCK, trivalent, PF 5 completed Not Available [facility] 04/24/2025 11:38:59 COVID-19, mRNA, LNP-S, PF, 50 mcg/0.5 mL completed Not Available [facility] 04/24/2025 11:38:59 Past Encounters Encounter ID Performer Location Encounter Start Date Encounter Closed Date Diagnosis/Indication Diagnosis SNOMED-CT Code Diagnosis ICD10 Code Diagnosis IMO Codes Diagnosis Note [id number] MARIN FUNES APRN [facility] ([facility]) [address] [place] [address] 06/16/2025 14:36:56 06/16/2025 15:32:13 Dysuria 78172918 R30.0 68523 Acute urin david tract infection 077385582 N39.0 0254405 Health Concerns Section Related Observation LastModified by Organization Detai ls LastModified Time None Recorded Concern Status LastModified by Organization Details LastModified Time None Recorded Payers Encounter Date Sequence Insurance Name Policy Number Policy Escobedo Covered Member ID Escobedo Member ID Guarantor Name 06/16/2025 2 [place] Hilda Nolan [id number] Hilda Nolan 06/16/2025 1 [employer] (MEDICARE REPLACEMENT/ ADVANTAGE - PPO) [id number] Hilda Nolan [id number] Hilda Nolan Notes Date Note Type Note Provider Name and Address Organization Details Recorded Time 06/16/2025 text/html walk inx2 days frequency, urgency, pressure last one- is last month MARIN FUNES APRN [address] [place], [address], [facility], Howie 06/16/2025 15:22:54 OBGyn Episode No OBEpisode recorded.
--- OUTSIDE RECORDS SUMMARY | 2025-07-14 18:40 | XMS_ITS | Continuity of Care Document ---
Author Organization [facility] Maurilio Quiroz [facility], LScotLRubin, [facility] ([facility]) Address [address] [place] [address] Care Team Providers Care Dispatch Lead Name Role Phone PRIYANKA GARNICA Primary Care Provider [phone] Assessment Encounter Date Assessment Date Assessment LastModified [...] Modified Time Details Appointments None recorded. Lab culture, urine 2024 [facility] [facility], [address] [place] [address], [facility] [address] [place], [address], 11:37:28 urinalysis , dipstick 2024 025 [email or web address] [facility] ([facility]), [address] [place], [address], 15:30:25 Referral None recorded. Procedures None recorded. Surgeries None recorded. Imaging None recorded. Medication Orders cefdinir 300 mg capsule 2024 025 [employer] [id number], [address] [facility], [facility] [address], [address], 05:01:16 Patient TargetsNo targets recorded. Patient Instructions Encounter Date Encounter Id Patient Instructions Last Modified By Organization Details Last Modified Time 04/24/2025 [id number] Increase fluids and follow up for worsening [email or web address] Not available 04/24/2025 12:23:50 Reason for Referral None Reported. Results Created Date Observation Date Name Description Value Unit Range Abnormal Flag Note LastModifiedBy Organization Detail LastModifiedTime 04/02/2004/05/2025 CULTU RE, URINE , ROUTI NE culture, urine, routine SEE NOTE abnormal CULTU RE, URINE , ROUTI NE Micro Numbe r: [id number] Test Statu s: Final Speci men [...] See Thera py Comme nts Not Available [facility] [address] [place], [address], 04/05/2025 04:25:59 04/02/2004/02/2025 urina lysis , dipst ick Leukocytes Large Not Available [facility] ([facility]) [address] [place], [address], 04/02/2025 12:58:19 04/02/2004/02/2025 urina lysis , dipst ick Nitrite positi ve Not Available [facility] ([facility]) [address] [place], [address], 04/02/2025 12:58:19 04/02/2004/02/2025 urina lysis , dipst ick Urobilinogen 1 Not Available [facility] ([facility]) [address] [place], [address], 04/02/2025 12:58:19 04/02/2004/02/2025 urina lysis , dipst ick Protein 300 Not Available [facility] ([facility]) [address] [place], [address], 04/02/2025 12:58:19 04/02/2004/02/2025 urina lysis , dipst ick pH 5.5 Not Available [facility] ([facility]) [address] [place], [address], 04/02/2025 12:58:19 04/02/2004/02/2025 urina lysis , dipst ick Blood Large Not Available [facility] ([facility]) [address] [place], [address], 04/02/2025 12:58:19 04/02/2004/02/2025 urina lysis , dipst ick Specific [place] 1.025 Not Available [facility] ( [facility]) [address] [place], [address], 04/02/2025 12:58:19 04/02/2004/02/2025 urina lysis , dipst ick Ketone Small Not Available [facility] ([facility]) [address] [place], [address], 04/02/2025 12:58:19 04/02/2004/02/2025 urina lysis , dipst ick Bilirubin Modera te Not Available [facility] ([facility]) [address] [place], [address], 04/02/2025 12:58:19 04/02/2004/02/2025 urina lysis , dipst ick Glucose Negati ve Not Available [facility] ([facility]) [address] [place], [address], 04/02/2025 12:58:19 04/02/2004/02/2025 urina lysis , dipst ick Appearance Turbid Not Available [facility] ( [facility] [address] [place], [address], 04/02/2025 12:58:19 04/02/2004/02/2025 urina lysis , dipst ick Color Red Not Available [facility] ([facility]) [address] [place], [address], 04/02/2025 12:58:19 04/24/20 25 04/27/2025 CULTU RE, URINE , ROUTI NE culture, urine, routine SEE NOTE abnormal CULTU RE, URINE , ROUTI NE Micro Numbe r: [id number] Test Statu s: Final Speci men [...] See Thera py Comme nts Not Available [facility] [address] [place], [address], 04/27/2025 11:37:28 04/24/20 25 04/24/2025 urina lysis , dipst ick Leukocytes Modera te Not Available [facility] ([facility]) [address] [place] [address], [address], 04/24/2025 11:54:48 04/24/20 25 04/24/2025 urina lysis , dipst ick Nitrite negati ve Not Available [facility] ([facility]) [address] [place], [address], 04/24/2025 11:54:48 04/24/20 25 04/24/2025 urina lysis , dipst ick Urobilinogen 4 Not Available [facility] ([facility]) [address] [place], [address], 04/24/2025 11:54:48 04/24/2004/24/2025 urina lysis , dipst ick Protein 100 Not Available [facility] ([facility]) [address] [place], [address], 04/24/2025 11:54:48 04/24/2004/24/2025 urina lysis , dipst ick pH 6.0 Not Available [facility] ([facility]) [address] [place], [address], 04/24/2025 11:54:48 04/24/2004/24/2025 urina lysis , dipst ick Blood Small Not Available [facility] ([facility]) [address] [place], [address], 04/24/2025 11:54:48 04/24/2004/24/2025 urina lysis , dipst ick Specific [place] 1.020 Not Available [facility] ( [facility]) [address] [place], [address], 04/24/2025 11:54:48 04/24/2004/24/2025 urina lysis , dipst ick Ketone Small Not Available [facility] ([facility]) [address] [place], [address], 04/24/2025 11:54:48 04/24/2004/24/2025 urina lysis , dipst ick Bilirubin Small Not Available [facility] ([facility]) [address] [place], [address], 04/24/2025 11:54:48 04/24/2004/24/2025 urina lysis , dipst ick Glucose Negati ve Not Available [facility] ([facility]) [address] [place], [address], 04/24/2025 11:54:48 04/24/2004/24/2025 urina lysis , dipst ick Appearance Cloudy Not Available [facility] ([facility]) [address] [place], [address], 04/24/2025 11:54:48 04/24/2004/24/2025 urina lysis , dipst ick Color Dark Yellow Not Available [facility] ([facility]) [address] [place], [address], 04/24/2025 11:54:48 Result Notes None recorded. Problems Name Problem SNOMED Code Status Onset Date Resolution Date Notes Provider Name and Address Organization Details Recorded Time History of tubal ligation 067201272 Active 2020 Tubal Ligation; 10/05/2020 11:26AM by Natali Ibanez, Office Visit; Promoted; acuity set as *; Not Available [facility] 03:08:31 Fracture of foot 65923994 Active 2020 Fracture Of Foot; closed of the fourth & shaft & neck of 5th metatarsal of right foot; 10/05/2020 11:26AM by Natali Ibanez, Office Visit; Promoted; acuity set as *; Not Available [facility] 3 03:08:31 Bipolar disorder 96248601 Active 2020 bipolar disorder; 10/05/2020 11:26AM by Natali Ibanez, Office Visit; Promoted; acuity set as *; Not Available [facility] 3 03:08:32 Tonsillec william Active 2020 tonsils removed,19 69; 10/05/2020 11:26AM by Natali Ibanez, Office Visit; Promoted; acuity set as *; Not Available [facility] 3 03:08:32 Strain of muscle of chest wall 679329274 Active 2024 Lino Marie MD [address] [place] [address], [address] , [facility] 5 12:55:53 Problem Notes None recorded. Procedures Surgical History Date Name Laterality Status Provider Name and Address Organization Details Recorded Time hysterectomy completed Ayanna Russo [facility] 09/05/2024 12:04:53 Imaging Results None recorded. Procedure Notes None recorded. Medical Equipment None Reported. Allergies Allergen ID Allergen Name Allergen Category Reaction Reaction Severity Criticality Documentation Date Start Date Code Code System Note Provider Name and Address Organization Details Recorded Time 04906 naproxen medicatio n respirato ry distress moderate low 02/17/2023 7258 RxNorm Meera Page [facility] 5 10:48:23 01242 fluticaso ne / salmetero l medicatio n other Not available Not available 02/17/2023 88021 5 RxNorm React ion: throa t irrit ation , reflu x worse fermin Meera Page [facility] 5 10:48:16 74044 naproxen medicatio n Not available Not available Not available 08/15/2024 7258 RxNorm Meera Page [facility] 5 10:48:35 92099 ibuprofen medicatio n Not available Not available Not available 10/13/2024 5640 RxNorm Maria Esther Verduzco [facility] 5 10:34:17 Medications Name Sig Start [...] two times daily 09/[address] Martinez ([facility]) Not Available Not Available Not [...] Updated DateTime 5 157.48 cm 29.1 kg/m2 75678.2 9 g 97 % 107 /min 20 /min 98.1 [degF] 112/66 mm[Hg] DEYA REY [facility] 11:52:15 Social History Question Answer Notes LastModified by [employer]per Details LastModified Time Tobacco Smoking Status Current Every Day Smoker Sabrina agrawal [facility] 03/26/2024 13:50:31 What Is Your Level Of Caffeine Consumption? Occasional Information not available 09/05/2024 What Was The [...] Functional Status Question Answer Note LastModified by [employer] Jongla Details LastModified Time Do you use any [...] virus, trivalent, preservative 0 completed Not Available [facility] 02/17/2023 02:51:36 Influenza, split virus, trivalent, preservative 5 completed Not Available [facility] 02/17/2023 02:51:36 Influenza, split virus, trivalent, preservative 8 completed Not Available [facility] 02/17/2023 02:51:36 tetanus toxoid, adsorbed 5 completed Not Available [facility] 02/17/2023 02:51:36 Influenza, split virus, trivalent, preservative 7 completed Not Available [facility] 02/17/2023 02:51:36 Hep A-Hep B 4 completed Not Available [facility] 02/17/2023 02:51:36 Influenza, MDCK, quadrivalent, PF 1 [facility] 03/26/2024 13:48:11 zoster recombinant 2 [facility] 03/26/2024 13:48:11 zoster recombinant 2 completed [facility] 03/26/2024 13:48:11 COVID-19, mRNA, LNP-S, PF, 100 mcg/0.5mL dose or 50 mcg/0.25mL dose 1 completed [facility] 03/26/2024 13:48:11 COVID-19, mRNA, LNP-S, PF, 30 mcg/0.3 mL dose 1 completed [facility] 03/26/2024 13:48:11 COVID-19, mRNA, LNP-S, PF, 30 mcg/0.3 mL dose 1 completed Sabrina agrawal [facility] 03/26/2024 13:48:11 Pneumococcal conjugate PCV20, polysaccharide KMO044 conjugate, adjuvant, PF 3 completed Sabrina agrawal, [facility] JusCScot 03/26/2024 13:48:11 COVID-19, mRNA, LNP-S, PF, 50 mcg/0.5 mL 3 completed [facility] LJhonnyC[facility]ot 03/26/2024 13:48:11 pneumococcal polysaccharide PPV23 5 completed [facility] 03/26/2024 13:48:11 Tdap 3 completed [facility] 03/26/2024 13:48:11 Tdap 1 completed [facility] SheaL[facility]otC[facility]ot 03/26/2024 13:48:11 Influenza, split virus, trivalent, preservative 2 completed [facility] 03/26/2024 13:48:11 Td (adult), 5 Lf tetanus toxoid, preservative free, adsorbed 3 completed [facility] Shea[facility] 03/26/2024 13:48:11 Td (adult), 2 Lf tetanus toxoid, preservative free, adsorbed 4 completed [facility] 03/26/2024 13:48:11 Influenza, split virus, quadrivalent, PF 3 completed [facility] 03/26/2024 13:48:11 Influenza, MDCK, trivalent, PF 4 completed [facility] 03/26/2024 13:48:11 COVID-19, mRNA, LNP-S, PF, 50 mcg/0.5 mL 4 completed [facility] Howie 09/05/2024 11:58:36 Influenza, MDCK, trivalent, PF 5 completed Not Available [facility] 04/24/2025 11:38:59 COVID-19, mRNA, LNP-S, PF, 50 mcg/0.5 mL 5 completed Not Available [facility] 04/24/2025 11:38:59 Past Encounters Encounter ID Performer Location Encounter Start Date Encounter Closed Date Diagnosis/Indication Diagnosis SNOMED-CT Code Diagnosis ICD10 Code Diagnosis IMO Codes Diagnosis Note [id number] YAEL TOVAR [facility] ([facility]) [address] [place] [address] 04/02/2025 12:45:50 04/02/2025 13:31:27 Dysuria 47733764 R30.0 21329 Acute urin david tract infection 637065418 N39.0 072089 UA results reviewed and discussed with pt. We will start antibiotic s. Pt will increase oral fluids and can use cranberry. Return to office with no improvemen t or any problems. Go to ER with severe worsening or severe problems.W e will obtain urine culture Spasm 53600443 M62.838 55594 Pt requests a refill of her muscle relaxers. States she has cramping to the muscles on her right back/side. [id number] MARIN FUNES APRN [facility] ([facility]) [address] [place] [address] 04/24/2025 11:38:30 04/24/2025 12:38:35 Dysuria 02755475 R30.0 34680 Ur[address] tr act infectious disease 77919450 N39.0 R31.9 605782550 Health Concerns Section Related Observation LastModified by Organization [employer] LastModified Time None Recorded Concern Status LastModified by Organization Details LastModified Time None Recorded Payers Encounter Date Sequence Insurance Name Policy Number Policy [place] Covered Member ID [place] Member ID Guarantor Name 04/24/2025 2 [place] Hilda Nolan [id number] Hilda Nolan 04/24/2025 1 [employer] (MEDICARE REPLACEMENT/ ADVANTAGE - PPO) [id number] Hilda Nolan [id number] Hilda Nolan Notes Date Note Type Note Provider Name and Address Organization Details Recorded Time 5 text/html Lower Urinary Tract Symptoms (LUTS)Reported by PatientHPIFor associated symptoms, patient reportsabdominal pain,nausea,urgency,frequen cy, anddysuriabut reportsno feverandno vomiting. For quality, patient reportsdullandpressure. For severity, patient reportsworseningandmoderate . For onset/timing, patient reports4-10 times a day. For duration, patient reportsacuteand< 1 week. walk-in MARIN FUNES, [facility] [address] [place], [address], [facility] 04/24/2025 12:24:25 OBGyn Episode No OBEpisode recorded.
--- NOTE | 2025-07-14 19:31 | XRR_ITS ---
PROCEDURE INFORMATION: Exam: XR Chest Exam date and time: 07/14/2025 7:31 PM Age: 60 years old Clinical indication: Cough and dyspnea and shortness of breath; Additional info: Dyspnea/cough TECHNIQUE: Imaging protocol: Radiologic exam of the chest. Views: 1 view. COMPARISON: CT chest [facility] [id number] 06/16/2025 9:18 AM FINDINGS: Lungs: Left lower lobe atelectasis versus minimal infiltrate. Emphysematous changes. Pleural spaces: Unremarkable. No pleural effusion. No pneumothorax. Heart/Mediastinum: Unremarkable. No cardiomegaly. Bones/joints: Unremarkable. XR/XR chest 1V portable [id number] IMPRESSION: 1. Left lower lobe atelectasis versus minimal infiltrate. 2. Emphysematous changes.
[2025-07-14 19:39] LABS: Hematocrit 39.0 % (36-47); Hemoglobin 12.80 g/dL (11.27-16.99); Mean Corpuscular HGB Conc 32.8 g/dL (30-55); Mean Corpuscular Hemoglobin 29.4 pg (27-33); Mean Corpuscular Volume 89.4 fl (85-98); Nucleated Red Blood Cells % 0 %; Platelet Count 284 10^3/cmm (157-399); Red Blood Count 4.36 10^6/uL (3.85-5.65); White Blood Count 12.76 10^3/uL (3.29-11.43)
[2025-07-14 19:45] VITALS: BP 125/88; PULSE 102; O2SAT 92
[2025-07-14 20:00] VITALS: BP 113/76; PULSE 96; RESP 16; O2SAT 92
--- NOTE | 2025-07-14 20:22 | W.ED.SOB ---
HPI - SOB/Dyspnea General: Chief Complaint: Shortness of Breath/Dyspnea Stated Complaint: COPD, SOB, Wheezing Time Seen by Provider: 07/14/25 19:31 History of Present Illness: HPI Narrative: 60-year-old female presents to the emergency room with complaints of shortness of breath cough and wheezing. She has had this going on for the last couple of days. Cough has been mildly productive. She has a history of COPD is not chronically on oxygen she was given nebulized Decadron albuterol and Zofran and route. Associated symptoms: Reports chest congestion; Deny abdominal pain, chest pain or fever(s) Related Data Home Medications ?Medication ?Instructions ?Recorded ?Confirmed rosuvastatin 20 mg tablet 20 mg PO QPM cholesterol 11/25/24 07/21/25 Previous Rx's ?Medication ?Instructions ?Recorded albuterol sulfate 90 mcg/actuation 2 puff inhalation Q4H PRN 11/21/24 aerosol inhaler Shortness Of Breath Or Wheezing #8.5 grams clozapine 100 mg tablet See Rx Instructions PO .COMPLEX 02/05/25 #180 tabs oxybutynin chloride 15 mg See Rx Instructions .Route 02/11/25 tablet,extended release 24 hr .COMPLEX #90 tabs mirtazapine 45 mg tablet 45 mg PO BEDTIME #30 tabs 03/19/25 montelukast 10 mg tablet See Rx Instructions .Route 04/12/25 .COMPLEX #90 tabs citalopram 40 mg tablet (Celexa) 40 mg PO QAM #30 tabs 04/17/25 tramadol 50 mg tablet 50 mg PO BID PRN pain 30 days #60 05/01/25 tabs atropine 1 % eye drops (Isopto 3 drp sublingual .qhs #15 mL 05/07/25 Atropine) fluticasone propionate 50 2 spray intranasal BID PRN 05/21/25 mcg/actuation nasal allergies #48 grams spray,suspension gabapentin 300 mg capsule See Rx Instructions .Route 05/21/25 .COMPLEX #90 caps budesonide-formoterol HFA 160 See Rx Instructions .Route 07/06/25 mcg-4.5 mcg/actuation aerosol .COMPLEX #10.2 ea inhaler meloxicam 7.5 mg tablet See Rx Instructions .Route 07/06/25 .COMPLEX #60 tabs dexlansoprazole 60 mg 60 mg PO DAILY PRN Acid Reflux #90 12/19/25 capsule,biphase delayed release caps azithromycin 500 mg tablet See Rx Instructions PO .COMPLEX #5 07/11/25 tabs methylprednisolone 4 mg tablets in See Rx Instructions PO .COMPLEX 07/11/25 a dose pack (Medrol (Cedrick)) #21 ea albuterol sulfate 90 mcg/actuation 2 inh inhalation Q4H PRN shortness 07/14/25 aerosol inhaler of breath or wheezing #18 grams prednisone 20 mg tablet 20 mg PO TID #15 tabs 07/14/25 hydroxyzine HCl 25 mg tablet See Rx Instructions .Route 07/19/25 .COMPLEX #180 tabs Allergies Allergy/AdvReac Type Severity Reaction Status Date / Time ibuprofen Allergy Mild ALGY-Rash Verified 07/21/25 10:12 Review of Systems Const: Denies: fever(s) or chills Card: Denies: chest pain Resp: Reports: dyspnea, productive cough, wheezing and chest congestion GI: Denies: abdominal pain : Denies: dysuria, urinary frequency or urinary urgency Musc: Denies: neck pain or back pain Skin/Breast: Denies: rash PFSH ED PFSH: Medical History Sialorrhea Right lower lobe pulmonary nodule on 03.23.25 LDCT, ordered 3 month f/u Cigarette smoker Vitamin B12 deficiency starting B12 orally 12/14 Balance disorder Chronic low back pain Encounter for chronic pain management Tramadol; [facility] patient on this from Dr. 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 Prediabetes Chronic bronchitis with COPD (chronic obstructive pulmonary disease) Mixed hyperlipidemia Psychiatric care Osteoarthritis (arthritis due to wear and tear of joints) Chronic pain disorder Right shoulder, bilateral lower extremities Obesity (BMI 30.0-34.9) GERD (gastroesophageal reflux disease) Surgical History Status post bilateral salpingo-oophorectomy (BSO) S/P laparoscopic assisted vaginal hysterectomy (LAVH) Family History Other CAD (coronary artery disease) Hypertension Social History Smoking and tobacco/nicotine status: current every day tobacco/nicotine user cigarettes Packs smoked per day: 0.5 [ Other cigarette details: quit 2024; age 13 to 59; so 23pk yr] Alcohol intake: never Substance/Drug Use: former Date of last use: 2012 Former substance use details: meth; hx of IV use Household members: none Marital status: Number of children: 2 Highest education level completed: High School Graduate Current occupational status: disabled 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; Do you think of yourself as: Straight/Heterosexual Female Reproductive History: Para: 2 Physical Exam Const: GENERAL APPEARANCE: cooperative ORIENTATION/CONSCIOUSNESS: Yes awake, Yes oriented to person, Yes oriented to place and Yes oriented to time HENMT: COMMON NORMALS: normocephalic, atraumatic and hearing grossly normal bilaterally HEAD & SCALP: normocephalic and atraumatic Resp: COMMON NORMALS: normal respiratory effort, No retractions and No use of accessory muscles AUSCULTATION: wheezes Cardio: COMMON NORMALS: regular rate, regular rhythm and No murmurs present (Cardio) RATE: regular rate RHYTHM: regular rhythm GI: COMMON NORMALS: Soft to palpation and No hepatosplenomegaly present AUSCULTATION: Yes normoactive bowel sounds PALPATION: Yes Soft to palpation, No Tenderness to palpation present (GI), No Guarding due to palpation present (GI) and Yes No hepatosplenomegaly present Extremity: COMMON NORMALS: normal to inspection, capillary refill normal, no clubbing, cyanosis or edema, no calf tenderness and no pedal edema Neuro: SENSORIUM/ORIENTATION: Yes oriented to person, Yes oriented to place and Yes oriented to time Skin: COMMON NORMALS: no rashes or lesions noted GENERAL SKIN EXAM: no rashes or lesions noted Course Vital Signs: Vital signs: Vital Signs Temperature 98.1 F 07/14/25 18:27 Pulse Rate 99 07/14/25 21:07 Respiratory Rate 16 07/14/25 20:00 Blood Pressure 99/68 07/14/25 21:07 Pulse Oximetry 92 07/14/25 21:07 Oxygen Delivery Me thod Room Air 07/14/25 18:27 MDM - SOB/Dyspnea Medical Decision Making Labs and imaging reviewed as found in the chart EKG reviewed as well. White count 12.7. Mild left differential. Creatinine 1.1 electrolytes normal with normal sodium 139 potassium 3.8 carbon oxide 24. Alk phos 119 which has been elevated in the past. Flu COVID and RSV are negative. Based on patient's symptoms that shows a mild exacerbation of COPD and early pneumonia we will start her on oral antibiotics. Follow-up with her primary care doctor if not improving Medical Records I reviewed the patient's medical records. Lab Data I reviewed the patient's lab results. 07/14/25 18:14 07/14/25 18:14 Labs/Radiology: Radiology Impressions Chest X-Ray 07/14/25 19:31 IMPRESSION: 1. Left lower lobe atelectasis versus minimal infiltrate. 2. Emphysematous changes. Laboratory Results WBC 12.76 10^3/uL (3.29-11.43) H 07/14/25 18:14 RBC 4.36 10^6/uL (3.85-5.65) 07/14/25 18:14 Hgb 12.80 g/dL (11.27-16.99) 07/14/25 18:14 Hct 39.0 % (36-47) 07/14/25 18:14 MCV 89.4 fl (85-98) 07/14/25 18:14 MCH 29.4 pg (27-33) 07/14/25 18:14 MCHC 32.8 g/dL (30-55) 07/14/25 18:14 RDW 13.7 % (12.1-15.1) 07/14/25 18:14 Plt Count 284 10^3/cmm (157-399) 07/14/25 18:14 MPV 9.8 fL (7.4-10.4) 07/14/25 18:14 Neut % (Auto) 73.8 % 07/14/25 18:14 Lymph % (Auto) 16.2 % 07/14/25 18:14 [place] % (Auto) 8.2 % 07/14/25 18:14 Eos % (Auto) 1.1 % 07/14/25 18:14 Baso % (Auto) 0.2 % 07/14/25 18:14 Neut # (Auto) 9.42 10^3/uL (1.8-7.7) H 07/14/25 18:14 Lymph # (Auto) 2.1 10^3/uL (0.8-4.8) 07/14/25 18:14 [place] # (Auto) 1.1 10^3/uL (0.2-0.9) H 07/14/25 18:14 Eos # (Auto) 0.1 10^3/uL (0.0-0.8) 07/14/25 18:14 Baso # (Auto) 0.0 10^3/uL (0.0-0.1) 07/14/25 18:14 Nucleated RBC % (auto) 0 % 07/14/25 18:14 Nucleated RBCs # 0.0 /100WBC 07/14/25 18:14 Sodium 139 mmol/L (136-145) 07/14/25 18:14 Potassium 3.8 mmol/L (3.5-5.1) 07/14/25 18:14 Chloride 101 mmol/L (98-107) 07/14/25 18:14 Carbon Dioxide 24 mmol/L (22-29) 07/14/25 18:14 Anion Gap 17.8 (5-19) 07/14/25 18:14 BUN 15 mg/dL (8-23) 07/14/25 18:14 Creatinine 1.1 mg/dL (0.5-0.9) H 07/14/25 18:14 GFR Calculation 50.5 mL/min (90-130) L 07/14/25 18:14 Glucose 124 mg/dL (65-115) H 07/14/25 18:14 Calculated Osmolality 290 mOsm/kg (285-295) 07/14/25 18:14 Calcium 9.1 mg/dL (8.5-10.5) 07/14/25 18:14 Total Bilirubin 0.2 mg/dL (0.15-1.2) 07/14/25 18:14 AST 16 U/L (0-32) 07/14/25 18:14 ALT 15 U/L (0-33) 07/14/25 18:14 Alkaline Phosphatase 119 U/L (35-105) H 07/14/25 18:14 Total Protein 6.9 g/dL (6.6-8.7) 07/14/25 18:14 Albumin 4.3 g/dL (3.5-5.2) 07/14/25 18:14 Globulin 2.6 g/dL (1.3-4.6) 07/14/25 18:14 Influenza A (PCR) Negative (Negative) 07/14/25 19:46 Influenza Type B (PCR) Negative (Negative) 07/14/25 19:46 RSV (PCR) Negative (Negative) 07/14/25 19:46 SARS-CoV-2 (PCR) Negative (Negative) 07/14/25 19:46 All radiology interpretation(s) finalized by discharge ED provider radiology interpretation(s): X-ray no cardiomegaly small early infiltrate left lower lobe no effusions EKG Data EKG 1: I personally reviewed and interpreted this EKG as follows: Interpretation: EKG 07/14/2025 8035 sinus tachycardia. Rate of 107 [place] interval 134 QTc [address] elevation. Compared to EKG 07/11/2025 slight change in T waves. Discharge Plan Discharge Patient Disposition: Home Clinical Impression: Community acquired pneumonia, Acute exacerbation of chronic obstructive airways disease Condition: Stable Prescriptions: New prednisone 20 mg tablet 20 mg PO TID Qty: 15 0RF Rx Instructions: 1 p.o. 3 times daily x3 days, 1 p.o. twice daily x2 days, 1 p.o. daily x2 days albuterol sulfate 90 mcg/actuation HFA aerosol inhaler 2 inh INHALATION Q4H PRN (Reason: shortness of breath or wheezing) Qty: 18 0RF No Action clozapine 100 mg tablet See Rx Instructions PO .COMPLEX Qty: 180 11RF Rx Instructions: Take 2 tabs in the morning and 4 tabs in the evening. citalopram [Celexa] 40 mg tablet 40 mg PO QAM Qty: 30 11RF tramadol 50 mg tablet 50 mg PO BID PRN (Reason: pain) 30 Days Qty: 60 2RF Rx Instructions: Do not fill until 05/10/2025 Must last 30 days mirtazapine 45 mg tablet 45 mg PO BEDTIME Qty: 30 11RF atropine [Isopto Atropine] 1 % drops 3 drp sublingual .qhs Qty: 15 5RF albuterol sulfate 90 mcg/actuation HFA aerosol inhaler 2 puff inhalation Q4H PRN (Reason: Shortness Of Breath Or Wheezing) Qty: 8.5 5RF oxybutynin chloride 15 mg tablet extended release 24hr See Rx Instructions .ROUTE .COMPLEX Qty: 90 1RF Dose Instruction: TAKE 1 TABLET BY MOUTH AT BEDTIME Rx Instructions: TAKE 1 TABLET BY MOUTH AT BEDTIME montelukast 10 mg tablet See Rx Instructions .ROUTE .COMPLEX Qty: 90 0RF Dose Instruction: TAKE 1 TABLET BY MOUTH EVERY MORNING Rx Instructions: TAKE 1 TABLET BY MOUTH EVERY MORNING gabapentin 300 mg capsule See Rx Instructions .ROUTE .COMPLEX Qty: 90 3RF Dose Instruction: TAKE 1 CAPSULE BY MOUTH EVERY 8 HOURS FOR CHRONIC PAIN Rx Instructions: TAKE 1 CAPSULE BY MOUTH EVERY 8 HOURS FOR CHRONIC PAIN fluticasone propionate 50 mcg/actuation spray,suspension 2 spray intranasal BID PRN (Reason: allergies) Qty: 48 1RF meloxicam 7.5 mg tablet See Rx Instructions .ROUTE .COMPLEX Qty: 60 1RF Dose Instruction: TAKE ONE TABLET BY MOUTH TWO TIMES A DAY NEEDED FOR PAIN AND INFLAMMATION Rx Instructions: TAKE ONE TABLET BY MOUTH TWO TIMES A DAY NEEDED FOR PAIN AND INFLAMMATION budesonide-formoterol 160-4.5 mcg/actuation HFA aerosol inhaler See Rx Instructions .ROUTE .COMPLEX Qty: 10.2 1RF Dose Instruction: INHALE 2 PUFFS TWICE A DAY Rx Instructions: INHALE 2 PUFFS TWICE A DAY dexlansoprazole 60 mg capsule,biphase delayed releas 60 mg PO DAILY PRN (Reason: Acid Reflux) Qty: 90 0RF hydroxyzine HCl 25 mg tablet See Rx Instructions .ROUTE .COMPLEX Qty: 180 3RF Dose Instruction: TAKE 1 TABLET BY MOUTH TWICE A DAY NEEDED FOR ANXIETY Rx Instructions: TAKE 1 TABLET BY MOUTH TWICE A DAY NEEDED FOR ANXIETY methylprednisolone [Medrol (Cedrick)] 4 mg tablets,dose pack See Rx Instructions .ROUTE .COMPLEX Qty: 21 0RF Rx Instructions: for 6 days azithromycin 500 mg tablet See Rx Instructions .ROUTE .COMPLEX Qty: 5 0RF Rx Instructions: For 250 mg dose pack: take 500 mg today (day 1), then 250 mg for 4 days (days 2-5) rosuvastatin 20 mg tablet 20 mg PO QPM Discharge Orders: Discharge ED (Routine); Ordered 07/14/25 Ordered By: Cesar Neil Referrals: Rebecca Sarmiento DO [Primary Care Provider, Family Practice] Discharge Diet: Usual diet Discharge Activity: Resume usual activity Patient Instructions: Opioid Safety, Pain Management, Patient Portal & Jimmy Instructions Activity Restrictions/Additional Instructions: [facility]. It is very important that you follow up as instructed or that you return to the Emergency Department should you have concerns or if your condition changes or worsens in any way. Emergency department visits are focused on emergent conditions, in some cases you may require further evaluation on an outpatient basis. You were seen in the emergency room complaining of shortness of breath. You do have a very small left lower lobe pneumonia will put you on antibiotics for this I will put you and also put you on steroid taper can use albuterol as needed follow-up with your primary care doctor (Please note that included in your discharge packet is information concerning opioid safety and pain management. This information is given to all patients were discharged from the ER regardless of their discharge diagnosis or the medicines they usually take or are prescribed.) Print Language: Danish Coding Level of Care Code ED Lead Technical Architect for 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
[2025-07-14 20:26] LABS: Alanine Aminotransferase 15 U/L (0-33); Albumin Level 4.3 g/dL (3.5-5.2); Alkaline Phosphatase 119 U/L (35-105); Anion Gap 17.8 (5-19); Aspartate Amino Transferase 16 U/L (0-32); Blood Urea Nitrogen 15 mg/dL (8-23); Calcium 9.1 mg/dL (8.5-10.5); Carbon Dioxide 24 mmol/L (22-29); Chloride 101 mmol/L (98-107); Globulin 2.6 g/dL (1.3-4.6); Glucose 124 mg/dL (65-115); Osmolality Calculated 290 mOsm/kg (285-295); Potassium 3.8 mmol/L (3.5-5.1); Sodium 139 mmol/L (136-145); Total Protein 6.9 g/dL (6.6-8.7)
[2025-07-14 20:30] VITALS: BP 99/68; PULSE 97; O2SAT 91
[2025-07-14 20:36] LABS: Respiratory Syncytial Virus Ce NEGATIVE (Negative); SARS-CoV-2 PCR NEGATIVE (Negative)
[2025-07-14 21:07] VITALS: BP 99/68; PULSE 99; O2SAT 92
== END 2025-07-14 21:08 | disposition home or self-care (01) ==
PROVIDERS: Emergency Provider Family Medicine; PCP Family Medicine
DX: J18.9 Pneumonia, unspecified organism (principal); J44.1 Chronic obstructive pulmonary disease with (acute) exacerbation; Z11.52 Encounter for screening for COVID-19; F17.210 Nicotine dependence, cigarettes, uncomplicated; E78.2 Mixed hyperlipidemia
CPT/HCPCS: 71045; 80053; 85025; 87637; 93005; 99285

== ENCOUNTER 2025-07-19 21:19 | Emergency (ER) | payer MEDICARE, MEDICAID, SELFPAY ==
[2024-10-15 11:27] VITALS: BP 132/88; BMI 31.9
[2025-07-19 21:22] VITALS: BP 122/80; PULSE 116; RESP 18; TEMP 36.8; O2SAT 95; BMI 29.6
--- OUTSIDE RECORDS SUMMARY | 2025-07-19 21:28 | XMS_ITS | Continuity of Care Document ---
Author Organization [facility] Maurilio Quiroz [facility] Radha, LScotLRubin, [facility] Address [address] [facility] [place] [address] Care Team Providers Care Business Objects Architect Name Role Phone PRIYANKA GARNICA Primary Care Provider Assessment No assessment recorded. Plan of Treatment Reminders Order Date Submit Date Provider Last Modified By Organization Details Last Modified Time Details Appointments None recorded. Lab urinalysis , dipstick 2024 025 [email or web address] [facility] [address] [place], [address], 12:26:22 culture, urine 2024 025 [email or web address] [facility], [address] [place] [address], [facility] [address] [place], [address], 12:26:22 Referral None recorded. Procedures None recorded. Surgeries None recorded. Imaging None recorded. Medication Orders Macrobid 100 mg capsule 2024 025 [facility] #[id number], [address] [facility], [facility] [address], [address], 05:01:53 Patient TargetsNo targets recorded. Patient Instructions Encounter Date Encounter Id Patient Instructions Last Modified By Organization Details Last Modified Time 06/16/2025 [id number] Increase fluids and follow up for worsening [email or web address] Not available 06/16/2025 15:22:12 Reason for Referral None Reported. Results Created Date Observation Date Name Description Value Unit Range Abnormal Flag Note LastModifiedBy Organization Detail LastModifiedTime 06/16/2006/17/2025 CULTU RE, URINE , ROUTI NE culture, urine, routine SEE NOTE CULTU RE, URINE , ROUTI NE Micro Numbe r: [id number] Test Statu s: Final Speci men [...] Cultu re Trans port Tube. Not Available [facility] [address] [place], [address], 06/17/2025 21:31:01 06/16/2006/16/2025 urina lysis , dipst ick Leukocytes Modera te Not Available [facility] [address] [place] [address], [phone], 06/16/2025 14:40:04 06/16/2006/16/2025 urina lysis , dipst ick Nitrite negati ve Not Available [facility] [address] [place] [address], [phone], 06/16/2025 14:40:04 06/16/2006/16/2025 urina lysis , dipst ick Urobilinogen .2 Not Available [facility] [address] [place] [address], [address], 06/16/2025 14:40:04 06/16/20 25 06/16/2025 urina lysis , dipst ick Protein Negati ve Not Available [facility] [address] [place] [address], [phone], 06/16/2025 14:40:04 06/16/2006/16/2025 urina lysis , dipst ick pH 6.0 Not Available [facility] ([facility]) [address] [place], [address], 06/16/2025 14:40:04 06/16/2006/16/2025 urina lysis , dipst ick Blood Large Not Available [facility] ([facility]) [address] [place], [address], 06/16/2025 14:40:04 06/16/2006/16/2025 urina lysis , dipst ick Specific [place] 1.005 Not Available [facility] ( [facility] [address] [place], [address], 06/16/2025 14:40:04 06/16/2006/16/2025 urina lysis , dipst ick Ketone Negati ve Not Available [facility] ([facility] [address] [place], [address], 06/16/2025 14:40:04 06/16/2006/16/2025 urina lysis , dipst ick Bilirubin Negati ve Not Available [facility] ([facility] [address] [place], [address], 06/16/2025 14:40:04 06/16/2006/16/2025 urina lysis , dipst ick Glucose Negati ve Not Available [facility] ([facility] [address] [place], [address], 06/16/2025 14:40:04 06/16/2006/16/2025 urina lysis , dipst ick Appearance Clear Not Available [facility] [address] [place], [address], 06/16/2025 14:40:04 06/16/2006/16/2025 urina lysis , dipst ick Color Yellow Not Available [facility] ([facility]) [address] [place], [address], 06/16/2025 14:40:04 Result Notes None recorded. Problems Name Problem SNOMED Code Status Onset Date Resolution Date Notes Provider Name and Address Organization Details Recorded Time History of tubal ligation 400496631 Active 2020 Tubal Ligation; 10/05/2020 11:26AM by Natali Ibanez, Office Visit; Promoted; acuity set as *; Not Available [facility] 3 03:08:31 Fracture of foot 26620123 Active 2020 Fracture Of Foot; closed of the fourth & shaft & neck of 5th metatarsal of right foot; 10/05/2020 11:26AM by Natali Ibanez, Office Visit; Promoted; acuity set as *; Not Available [facility] 3 03:08:31 Bipolar disorder 02850251 Active 2020 bipolar disorder; 10/05/2020 11:26AM by Natali Ibanez, Office Visit; Promoted; acuity set as *; Not Available [facility] 3 03:08:32 Tonsillec william Active 2020 tonsils removed,19 69; 10/05/2020 11:26AM by Natali Ibanez, Office Visit; Promoted; acuity set as *; Not Available [facility] 3 03:08:32 Strain of muscle of chest wall 947837819 Active 2024 Lino Marie MD [address] [place], [address] , [facility] 12:[facility]53 Problem Notes None recorded. Procedures Surgical History Date Name Laterality Status Provider Name and Address Organization Details Recorded Time [facility] 12:04:53 Imaging Results None recorded. Procedure Notes None recorded. Medical Equipment None Reported. Allergies Allergen ID Allergen Name Allergen Category Reaction Reaction Severity Criticality Documentation Date Start Date Code Code System Note Provider Name and Address Organization Details Recorded Time 80889 naproxen medicatio n respirato ry distress moderate low 02/17/2023 7258 RxNorm Meera Page [facility] 5 10:48:23 49804 fluticaso ne / salmetero l medicatio n other Not available Not available 02/17/2023 61684 5 RxNorm React ion: throa t irrit ation , reflu x worse fermin Meera Page [facility] 5 10:48:16 96734 naproxen medicatio n Not available Not available Not available 08/15/2024 7258 RxNorm Meera Page [facility] 5 10:48:35 15014 ibuprofen medicatio n Not available Not available Not available 10/13/2024 5640 RxNorm Maria Esther Dax [facility] 5 10:34:17 Medications Name Sig Start [...] two times daily 09/[address] Martinez ([facility]) Not Available Not Available Not [...] DateTime 11/25/202 5 157.48 cm 29.1 kg/m2 12084.1 9 g 94 % 94 /min 98.4 [degF] 118/78 mm[Hg] Korin Murdock [facility] 14:50:58 Social History Question Answer Notes LastModified by Organizat ion Details LastModified Time Tobacco Smoking Status Current Every Day Smoker Sabrina Reis nghia [facility] 03/26/2024 13:50:31 What Is Your Level Of Caffeine Consumption? Occasional [email or web address] Information not available 09/05/2024 What Was The [...] virus, trivalent, preservative 0 completed Not Available [facility] 02/17/2023 02:51:36 Influenza, split virus, trivalent, preservative 5 completed Not Available [facility] 02/17/2023 02:51:36 Influenza, split virus, trivalent, preservative 8 completed Not Available [facility] 02/17/2023 02:51:36 tetanus toxoid, adsorbed 5 completed Not Available [facility] 02/17/2023 02:51:36 Influenza, split virus, trivalent, preservative 7 completed Not Available [facility] 02/17/2023 02:51:36 Hep A-Hep B 4 completed Not Available [facility] 02/17/2023 02:51:36 Influenza, MDCK, quadrivalent, PF 1 [facility] 03/26/2024 13:48:11 zoster recombinant 2 completed Sabrina Reis [facility] 03/26/2024 13:48:11 zoster recombinant 2 completed [facility] 03/26/2024 13:48:11 COVID-19, mRNA, LNP-S, PF, 100 mcg/0.5mL dose or 50 mcg/0.25mL dose 1 completed [facility] 03/26/2024 13:48:11 COVID-19, mRNA, LNP-S, PF, 30 mcg/0.3 mL dose 1 completed [facility] 03/26/2024 13:48:11 COVID-19, mRNA, LNP-S, PF, 30 mcg/0.3 mL dose 1 completed Sabrina Reis [facility] 03/26/2024 13:48:11 Pneumococcal conjugate PCV20, polysaccharide RCP509 conjugate, adjuvant, PF 3 completed [facility] 03/26/2024 13:48:11 COVID-19, mRNA, LNP-S, PF, 50 mcg/0.5 mL 3 completed Sabrina Reis [facility] 03/26/2024 13:48:11 pneumococcal polysaccharide PPV23 5 completed Sabrina Reis [facility] 03/26/2024 13:48:11 Tdap 3 completed Sabrina Reis [facility] 03/26/2024 13:48:11 Tdap 1 completed Sabrina Reis [facility] 03/26/2024 13:48:11 Influenza, split virus, trivalent, preservative 2 completed Sabrina Reis [facility] 03/26/2024 13:48:11 Td (adult), 5 Lf tetanus toxoid, preservative free, adsorbed 3 completed Sabrina Reis [facility] 03/26/2024 13:48:11 Td (adult), 2 Lf tetanus toxoid, preservative free, adsorbed 4 completed Sabrina Reis [facility] 03/26/2024 13:48:11 Influenza, split virus, quadrivalent, PF 3 completed Sabrina Reis [facility] 03/26/2024 13:48:11 Influenza, MDCK, trivalent, PF 4 completed Sabrina Reis [facility] 03/26/2024 13:48:11 COVID-19, mRNA, LNP-S, PF, 50 mcg/0.5 mL 4 completed [facility] 09/05/2024 11:58:36 Influenza, MDCK, trivalent, PF 5 completed Not Available [facility] 04/24/2025 11:38:59 COVID-19, mRNA, LNP-S, PF, 50 mcg/0.5 mL completed Not Available [facility] 04/24/2025 11:38:59 Past Encounters Encounter ID Performer Location Encounter Start Date Encounter Closed Date Diagnosis/Indication Diagnosis SNOMED-CT Code Diagnosis ICD10 Code Diagnosis IMO Codes Diagnosis Note [id number] MARIN FUNES APRN [facility] [address] [place] [address] 06/16/2025 14:36:56 06/16/2025 15:32:13 Dysuria 97881593 R30.0 50694 Acute urin david tract infection 580162609 N39.0 9528850 Health Concerns Section Related Observation LastModified by Organization Detai ls LastModified Time None Recorded Concern Status LastModified by Organization Details LastModified Time None Recorded Payers Encounter Date Sequence Insurance Name Policy Number Policy [place] Covered Member ID [place] Member ID Guarantor Name 06/16/2025 2 [place] Hilda Nolan [id number] Hilda Nolan 06/16/2025 1 [employer] (MEDICARE REPLACEMENT/ ADVANTAGE - PPO) [id number] Hilda Nolan [id number] Hilda Nolan Notes Date Note Type Note Provider Name and Address Organization Details Recorded Time 06/16/2025 text/html walk inx2 days frequency, urgency, pressure last one- is last month MARIN FUNES APRN [address] [place], [address], [facility] 06/16/2025 15:22:54 OBGyn Episode No OBEpisode recorded.
--- OUTSIDE RECORDS SUMMARY | 2025-07-19 21:28 | XMS_ITS | Continuity of Care Document ---
Author Organization [facility] Maurilio Quiroz [facility], LScotLR[facility], [facility] (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 Lab culture, urine 2024 [facility], [address] [place] [address], [facility] [address] [place], [address], 11:37:28 urinalysis , dipstick 2024 025 [email or web address] [facility] ([facility]), [address] [place], [address], 15:30:25 Referral None recorded. Procedures None recorded. Surgeries None recorded. Imaging None recorded. Medication Orders cefdinir 300 mg capsule 2024 025 [id number], [address] [facility], [facility] [address], [address], 05:01:16 Patient TargetsNo targets recorded. Patient Instructions Encounter Date Encounter Id Patient Instructions Last Modified By Organization Details Last Modified Time 04/24/2025 [id number] Increase fluids and follow up for worsening [email or web address] Not available 04/24/2025 12:23:50 Reason for Referral None Reported. Results Created Date Observation Date Name Description Value Unit Range Abnormal Flag Note LastModifiedBy Organization Detail LastModifiedTime 04/02/2004/05/2025 CULTU RE, URINE , ROUTI NE culture, urine, routine SEE NOTE abnormal CULTU RE, URINE , ROUTI NE Micro Numbe r: [id number] Test Statu s: Final Speci men [...] See Thera py Comme nts Not Available [facility] [address] [place], [address], 04/05/2025 04:25:59 04/02/2004/02/2025 urina lysis , dipst ick Leukocytes Large Not Available [facility] ([facility]) [address] [place], [address], 04/02/2025 12:58:19 04/02/2004/02/2025 urina lysis , dipst ick Nitrite positi ve Not Available [facility] ([facility]) [address] [place], [address], 04/02/2025 12:58:19 04/02/2004/02/2025 urina lysis , dipst ick Urobilinogen 1 Not Available [facility] ([facility]) [address] [place], [address], 04/02/2025 12:58:19 04/02/2004/02/2025 urina lysis , dipst ick Protein 300 Not Available [facility] ([facility]) [address] [place], [address], 04/02/2025 12:58:19 04/02/2004/02/2025 urina lysis , dipst ick pH 5.5 Not Available [facility] ([facility]) [address] [place], [address], 04/02/2025 12:58:19 04/02/2004/02/2025 urina lysis , dipst ick Blood Large Not Available [facility] ([facility]) [address] [place], [address], 04/02/2025 12:58:19 04/02/2004/02/2025 urina lysis , dipst ick Specific [place] 1.025 Not Available [facility] ( [facility]) [address] [place], [address], 04/02/2025 12:58:19 04/02/2004/02/2025 urina lysis , dipst ick Ketone Small Not Available [facility] ([facility]) [address] [place], [address], 04/02/2025 12:58:19 04/02/2004/02/2025 urina lysis , dipst ick Bilirubin Modera te Not Available [facility] ([facility]) [address] [place], [address], 04/02/2025 12:58:19 04/02/2004/02/2025 urina lysis , dipst ick Glucose Negati ve Not Available [facility] ([facility]) [address] [place], [address], 04/02/2025 12:58:19 04/02/2004/02/2025 urina lysis , dipst ick Appearance Turbid Not Available [facility] [address] [place], [address], 04/02/2025 12:58:19 04/02/2004/02/2025 urina lysis , dipst ick Color Red Not Available [facility] ([facility]) [address] [place], [address], 04/02/2025 12:58:19 04/24/20 25 04/27/2025 CULTU RE, URINE , ROUTI NE culture, urine, routine SEE NOTE abnormal CULTU RE, URINE , ROUTI NE Micro Numbe r: [id number] Test Statu s: Final Speci men [...] See Thera py Comme nts Not Available [facility] [address] [place], [address], 04/27/2025 11:37:28 04/24/20 25 04/24/2025 urina lysis , dipst ick Leukocytes Modera te Not Available [facility] ([facility]) [address] [place] [address], [address], 04/24/2025 11:54:48 04/24/20 25 04/24/2025 urina lysis , dipst ick Nitrite negati ve Not Available [facility] ([facility]) [address] [place], [address], 04/24/2025 11:54:48 04/24/20 25 04/24/2025 urina lysis , dipst ick Urobilinogen 4 Not Available [facility] ([facility]) [address] [place], [address], 04/24/2025 11:54:48 04/24/2004/24/2025 urina lysis , dipst ick Protein 100 Not Available [facility] ([facility]) [address] [place], [address], 04/24/2025 11:54:48 04/24/2004/24/2025 urina lysis , dipst ick pH 6.0 Not Available [facility] ([facility]) [address] [place], [address], 04/24/2025 11:54:48 04/24/2004/24/2025 urina lysis , dipst ick Blood Small Not Available [facility] ([facility]) [address] [place], [address], 04/24/2025 11:54:48 04/24/2004/24/2025 urina lysis , dipst ick Specific [place] 1.020 Not Available [facility] ( [facility]) [address] [place], [address], 04/24/2025 11:54:48 04/24/2004/24/2025 urina lysis , dipst ick Ketone Small Not Available [facility] ([facility]) [address] [place], [address], 04/24/2025 11:54:48 04/24/2004/24/2025 urina lysis , dipst ick Bilirubin Small Not Available [facility] ([facility]) [address] [place], [address], 04/24/2025 11:54:48 04/24/2004/24/2025 urina lysis , dipst ick Glucose Negati ve Not Available [facility] ([facility]) [address] [place], [address], 04/24/2025 11:54:48 04/24/2004/24/2025 urina lysis , dipst ick Appearance Cloudy Not Available [facility] ([facility]) [address] [place], [address], 04/24/2025 11:54:48 04/24/2004/24/2025 urina lysis , dipst ick Color Dark Yellow Not Available [facility] ([facility]) [address] [place], [address], 04/24/2025 11:54:48 Result Notes None recorded. Problems Name Problem SNOMED Code Status Onset Date Resolution Date Notes Provider Name and Address Organization Details Recorded Time History of tubal ligation 038799038 Active 2020 Tubal Ligation; 10/05/2020 11:26AM by Natali Ibanez, Office Visit; Promoted; acuity set as *; [facility] Available [facility] 03:08:31 Fracture of foot 13885399 Active 2020 Fracture Of Foot; closed of the fourth & shaft & neck of 5th metatarsal of right foot; 10/05/2020 11:26AM by Natali Ibanez, Office Visit; Promoted; acuity set as *; [facility] Available [facility] 03:08:31 Bipolar disorder 37806706 Active 2020 bipolar disorder; 10/05/2020 11:26AM by Natali Ibanez, Office Visit; Promoted; acuity set as *; Not Available [facility] 03:08:32 Tonsillec william Active 2020 tonsils removed,19 69; 10/05/2020 11:26AM by Natali Ibanez, Office Visit; Promoted; acuity set as *; Not Available [facility] 3 03:08:32 Strain of muscle of chest wall 154594976 Active 2024 Lino Marie MD [address] [place] [address], [address] , [facility] 5 12:55:53 Problem Notes None recorded. Procedures Surgical History Date Name Laterality Status Provider Name and Address Organization Details Recorded Time hysterectomy completed Ayanna Russo [facility] 09/05/2024 12:04:53 Imaging Results None recorded. Procedure Notes None recorded. Medical Equipment None Reported. Allergies Allergen ID Allergen Name Allergen Category Reaction Reaction Severity Criticality Documentation Date Start Date Code Code System Note Provider Name and Address Organization Details Recorded Time 06678 naproxen medicatio n respirato ry distress moderate low 02/17/2023 7258 RxNorm Meera Page [facility] 5 10:48:23 73900 fluticaso ne / salmetero l medicatio n other Not available Not available 02/17/2023 26212 5 RxNorm React ion: throa t irrit ation , reflu x worse fermin Meera Page [facility] 5 10:48:16 69542 naproxen medicatio n Not available Not available Not available 08/15/2024 7258 RxNorm Meera Page [facility] 5 10:48:35 53512 ibuprofen medicatio n Not available Not available Not available 10/13/2024 5640 RxNorm Maria Esther Verduzco [facility] 5 10:34:17 Medications Name [...] two times daily 09/[address] Martinez ([facility]) Not Available Not Available Not Available clozapine [...] Updated DateTime 5 157.48 cm 29.1 kg/m2 40377.2 9 g 97 % 107 /min 20 /min 98.1 [degF] 112/66 mm[Hg] DEYA REY [facility] 11:52:15 Social History Question Answer Notes LastModified by [employer] Details LastModified Time Tobacco Smoking Status Current Every Day Smoker Sabrina agrawal [facility] 03/26/2024 13:50:31 What Is Your Level Of Caffeine Consumption? Occasional [email or web address] Information not available 09/05/2024 What Was The [...] Functional Status Question Answer Note LastModified by [employer] Details LastModified Time Do you use any [...] virus, trivalent, preservative 0 completed Not Available [facility] 02/17/2023 02:51:36 Influenza, split virus, trivalent, preservative 5 completed Not Available [facility] 02/17/2023 02:51:36 Influenza, split virus, trivalent, preservative 8 completed Not Available [facility] 02/17/2023 02:51:36 tetanus toxoid, adsorbed 5 completed Not Available [facility] 02/17/2023 02:51:36 Influenza, split virus, trivalent, preservative 7 completed Not Available [facility] 02/17/2023 02:51:36 Hep A-Hep B 4 completed Not Available [facility] 02/17/2023 02:51:36 Influenza, MDCK, quadrivalent, PF 1 [facility] 03/26/2024 13:48:11 zoster recombinant 2 completed [facility] 03/26/2024 13:48:11 zoster recombinant 2 completed [facility] 03/26/2024 13:48:11 COVID-19, mRNA, LNP-S, PF, 100 mcg/0.5mL dose or 50 mcg/0.25mL dose 1 completed [facility] 03/26/2024 13:48:11 COVID-19, mRNA, LNP-S, PF, 30 mcg/0.3 mL dose 1 completed [facility] 03/26/2024 13:48:11 COVID-19, mRNA, LNP-S, PF, 30 mcg/0.3 mL dose 1 completed Sabrina agrawal [facility] 03/26/2024 13:48:11 Pneumococcal conjugate PCV20, polysaccharide [id number] conjugate, adjuvant, PF 3 completed Sabrina agrawal, [facility], JusCScot 03/26/2024 13:48:11 COVID-19, mRNA, LNP-S, PF, 50 mcg/0.5 mL 3 completed [facility] LJhonnyCScot 03/26/2024 13:48:11 pneumococcal polysaccharide PPV23 5 completed [facility] 03/26/2024 13:48:11 Tdap 3 completed [facility] L[facility]ot 03/26/2024 13:48:11 Tdap 1 completed [facility] SheaL[facility]otCScot 03/26/2024 13:48:11 Influenza, split virus, trivalent, preservative 2 completed [facility] 03/26/2024 13:48:11 Td (adult), 5 Lf tetanus toxoid, preservative free, adsorbed 3 completed [facility] Shea[facility] 03/26/2024 13:48:11 Td (adult), 2 Lf tetanus toxoid, preservative free, adsorbed 4 completed [facility] 03/26/2024 13:48:11 Influenza, split virus, quadrivalent, PF 3 completed [facility] 03/26/2024 13:48:11 Influenza, MDCK, trivalent, PF 4 completed [facility] 03/26/2024 13:48:11 COVID-19, mRNA, LNP-S, PF, 50 mcg/0.5 mL 4 completed [facility], Howie 09/05/2024 11:58:36 Influenza, MDCK, trivalent, PF 5 completed Not Available [facility] 04/24/2025 11:38:59 COVID-19, mRNA, LNP-S, PF, 50 mcg/0.5 mL 5 completed Not Available [facility] 04/24/2025 11:38:59 Past Encounters Encounter ID Performer Location Encounter Start Date Encounter Closed Date Diagnosis/Indication Diagnosis SNOMED-CT Code Diagnosis ICD10 Code Diagnosis IMO Codes Diagnosis Note [id number] YAEL TOVAR [facility] ([facility]) [address] [place] [address] 04/02/2025 12:45:50 04/02/2025 13:31:27 Dysuria 44659477 R30.0 83976 Acute urin david tract infection 490942839 N39.0 121191 UA results reviewed and discussed with pt. We will start antibiotic s. Pt will increase oral fluids and can use cranberry. Return to office with no improvemen t or any problems. Go to ER with severe worsening or severe problems.W e will obtain urine culture Spasm [id number] M62.838 25453 Pt requests a refill of her muscle relaxers. States she has cramping to the muscles on her right back/side. [id number] MARIN FUNES APRN [facility] ([facility]) [address] [place] [address] 04/24/2025 11:38:30 04/24/2025 12:38:35 Dysuria 43234540 R30.0 09286 Urinary tr act infectious disease 80379533 N39.0 R31.9 109681329 Health Concerns Section Related Observation LastModified by Organization [employer] LastModified Time None Recorded Concern Status LastModified by Organization Details LastModified Time None Recorded Payers Encounter Date Sequence Insurance Name Policy Number Policy [place] Covered Member ID [place] Member ID Guarantor Name 04/24/2025 2 [place] Hilda Nolan [id number] Hilda Nolan 04/24/2025 1 [employer] (MEDICARE REPLACEMENT/ ADVANTAGE - PPO) [id number] Hilda Nolan [id number] Hilda Nolan Notes Date Note Type Note Provider Name and Address Organization Details Recorded Time 5 text/html Lower Urinary Tract Symptoms (LUTS)Reported by PatientHPIFor associated symptoms, patient reportsabdominal pain,nausea,urgency,frequen cy, anddysuriabut reportsno feverandno vomiting. For quality, patient reportsdullandpressure. For severity, patient reportsworseningandmoderate . For onset/timing, patient reports4-10 times a day. For duration, patient reportsacuteand< 1 week. walk-in MARIN FUNES, [facility] [address] [place], [address], [facility] 04/24/2025 12:24:25 OBGyn Episode No OBEpisode recorded.
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
--- OUTSIDE RECORDS SUMMARY | 2025-07-19 21:28 | XMS_ITS | Clinical Summary ---
Author Organization [facility] Address [address] Ragland: Epic Prelude ADT OMKAR THOMAS [phone] Care Team Providers Care User Support Analyst Name Role Phone Conversion, History Primary Care [...] 0 Active fluticasone propionate (FLONASE) 50 mcg/spray Waldo, Suspension nasal inhaler 0 Active cloZAPine (CLOZARIL) [...] on file Legal Sex Female 4:18 AM MACADAM RAKER Gender Identity Not on file Sexual Orientation [...] - 1-dose 75+ series) 2039 Care Teams User Support Analyst Relationship Specialty Start Date End Date Conversion, History NO ADDRESS ON FILE PCP - General 04/24/07
[2025-07-19 22:16] VITALS: BP 128/97; PULSE 109; O2SAT 99
--- NOTE | 2025-07-19 22:31 | W.ED.EXTPRO ---
HPI - Extremity Problem General: Chief complaint: Extremity Problem,Nontraumatic Stated complaint: Rt and Left Calf Pain to Foot Time Seen by Provider: 07/19/25 22:07 Source: patient Mode of arrival: ambulatory Limitations: no limitations History of Present Illness: Patient is a 60-year-old female who is well-known to our emergency department here for right leg pain. She states her leg is jumpy . I have seen patient multiple times for similar jerky/spasm-like movements. She states the symptoms to her leg just started a few hours ago. She has not noticed any color or temperature changes to the leg. Denies numbness, tingling, loss of sensation. She is ambulatory here. Patient does take gabapentin daily. MD Complaint: extremity pain Onset (ago): hour(s) Pain Consistency: intermittent Location: right and lower extremity Radiation: none Relieving factors: nothing Exacerbating factors: nothing Associated symptoms: Reports no associated symptoms; Deny chest pain, fever(s) or rash Related Data Home Medications ?Medication ?Instructions ?Recorded ?Confirmed rosuvastatin 20 mg tablet 20 mg PO QPM cholesterol 11/25/24 05/07/25 Previous Rx's ?Medication ?Instructions ?Recorded albuterol sulfate 90 mcg/actuation 2 puff inhalation Q4H PRN 11/21/24 aerosol inhaler Shortness Of Breath Or Wheezing #8.5 grams clozapine 100 mg tablet See Rx Instructions PO .COMPLEX 02/05/25 #180 tabs oxybutynin chloride 15 mg See Rx Instructions .Route 02/11/25 tablet,extended release 24 hr .COMPLEX #90 tabs mirtazapine 45 mg tablet 45 mg PO BEDTIME #30 tabs 03/19/25 montelukast 10 mg tablet See Rx Instructions .Route 04/12/25 .COMPLEX #90 tabs citalopram 40 mg tablet (Celexa) 40 mg PO QAM #30 tabs 04/17/25 tramadol 50 mg tablet 50 mg PO BID PRN pain 30 days #60 05/01/25 tabs atropine 1 % eye drops (Isopto 3 drp sublingual .qhs #15 mL 05/07/25 Atropine) fluticasone propionate 50 2 spray intranasal BID PRN 05/21/25 mcg/actuation nasal allergies #48 grams spray,suspension gabapentin 300 mg capsule See Rx Instructions .Route 05/21/25 .COMPLEX #90 caps budesonide-formoterol HFA 160 See Rx Instructions .Route 07/06/25 mcg-4.5 mcg/actuation aerosol .COMPLEX #10.2 ea inhaler meloxicam 7.5 mg tablet See Rx Instructions .Route 07/06/25 .COMPLEX #60 tabs dexlansoprazole 60 mg 60 mg PO DAILY PRN Acid Reflux #90 07/10/25 capsule,biphase delayed release caps azithromycin 500 mg tablet See Rx Instructions PO .COMPLEX #5 07/11/25 tabs methylprednisolone 4 mg tablets in See Rx Instructions PO .COMPLEX 07/11/25 a dose pack (Medrol (Cedrick)) #21 ea albuterol sulfate 90 mcg/actuation 2 inh inhalation Q4H PRN shortness 07/14/25 aerosol inhaler of breath or wheezing #18 grams levofloxacin 750 mg tablet 750 mg PO DAILY 7 days #7 tabs 07/14/25 prednisone 20 mg tablet 20 mg PO TID #15 tabs 07/14/25 hydroxyzine HCl 25 mg tablet See Rx Instructions .Route 07/19/25 .COMPLEX #180 tabs Allergies Allergy/AdvReac Type Severity Reaction Status Date / Time ibuprofen Allergy Mild ALGY-Rash Verified 05/07/25 13:48 Review of Systems Const: Denies: fever(s), chills, body aches, fatigue or malaise Card: Denies: chest pain Resp: Denies: dyspnea Musc: Reports: extremity pain; Denies: neck pain, back pain, extremity swelling, joint pain, joint swelling or joint redness Skin/Breast: Denies: rash Neuro: Denies: numbness in extremities, weakness in extremities, sensory changes or difficulty walking PFS ED PFSH: Medical History Sialorrhea Right lower lobe pulmonary nodule on 03.23.25 LDCT, ordered 3 month f/u Cigarette smoker Vitamin B12 deficiency starting B12 orally 12/14 Balance disorder Chronic low back pain Encounter for chronic pain management Tramadol; Legacy patient on this from Dr. 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 Prediabetes Chronic bronchitis with COPD (chronic obstructive pulmonary disease) Mixed hyperlipidemia Psychiatric care Osteoarthritis (arthritis due to wear and tear of joints) Chronic pain disorder Right shoulder, bilateral lower extremities Obesity (BMI 30.0-34.9) GERD (gastroesophageal reflux disease) Surgical History Status post bilateral salpingo-oophorectomy (BSO) S/P laparoscopic assisted vaginal hysterectomy (LAVH) Family History Other CAD (coronary artery disease) Hypertension Social History Smoking and tobacco/nicotine status: current every day tobacco/nicotine user cigarettes Packs smoked per day: 0.5 [ Other cigarette details: quit 2024; age 13 to 59; so 23pk yr] Alcohol intake: never Substance/Drug Use: former Date of last use: 2012 Former substance use details: meth; hx of IV use Household members: none Marital status: Number of children: 2 Highest education level completed: High School Graduate Current occupational status: disabled 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; Do you think of yourself as: Straight/Heterosexual Female Reproductive History: Para: 2 Physical Exam Const: COMMON NORMALS: no acute distress, average body habitus, patient oriented x3, no limitations, healthy appearing, alert and well nourished Resp: COMMON NORMALS: normal respiratory effort and clear to auscultation bilaterally AUSCULTATION: clear to auscultation bilaterally Cardio: COMMON NORMALS: regular rate and regular rhythm RATE: regular rate RHYTHM: regular rhythm Extremity: COMMON NORMALS: normal to inspection, full ROM, capillary refill normal, no joint enlargement, no clubbing, cyanosis or edema, no calf tenderness and no pedal edema GENERAL: Yes normal exam except as noted OTHER: Occasional jerky like movements involving her right lower leg-these seem to come and go. There is no redness or edema present. No calf pain or palpable cords. Distal pulses normal. She maintains full ROM of leg. Neuro: COMMON NORMALS: patient oriented x3, moves all extremities, no focal motor deficits, no sensory deficits noted and gait normal SENSORIUM/ORIENTATION: Yes alert Skin: COMMON NORMALS: no rashes or lesions noted GENERAL SKIN EXAM: no rashes or lesions noted Course Vital Signs: Vital signs: Vital Signs Temperature 98.2 F 07/19/25 21:22 Pulse Rate 104 H 07/19/25 22:44 Respiratory Rate 18 07/19/25 21:22 Blood Pressure 125/84 07/19/25 22:44 Pulse Oximetry 96 07/19/25 22:44 Oxygen Delivery Me thod Room Air 07/19/25 22:16 MDM - Extremity (Nontraumatic) Medical Decision Making Symptoms reportedly improved after IM medications given here. I do not have any concern for any emergent or life-threatening etiology for her discomfort. I have seen Hilda multiple times for similar like movements. Recommend she follow-up with primary care. Medical Records I reviewed the patient's medical records. No radiology studies performed this visit Discharge Plan Discharge Patient Disposition: Home Clinical Impression: Leg pain, right Condition: Stable Prescriptions: No Action clozapine 100 mg tablet See Rx Instructions PO .COMPLEX Qty: 180 11RF Rx Instructions: Take 2 tabs in the morning and 4 tabs in the evening. citalopram [Celexa] 40 mg tablet 40 mg PO QAM Qty: 30 11RF tramadol 50 mg tablet 50 mg PO BID PRN (Reason: pain) 30 Days Qty: 60 2RF Rx Instructions: Do not fill until 05/10/2025 Must last 30 days mirtazapine 45 mg tablet 45 mg PO BEDTIME Qty: 30 11RF atropine [Isopto Atropine] 1 % drops 3 drp sublingual .qhs Qty: 15 5RF albuterol sulfate 90 mcg/actuation HFA aerosol inhaler 2 puff inhalation Q4H PRN (Reason: Shortness Of Breath Or Wheezing) Qty: 8.5 5RF oxybutynin chloride 15 mg tablet extended release 24hr See Rx Instructions .ROUTE .COMPLEX Qty: 90 1RF Dose Instruction: TAKE 1 TABLET BY MOUTH AT BEDTIME Rx Instructions: TAKE 1 TABLET BY MOUTH AT BEDTIME montelukast 10 mg tablet See Rx Instructions .ROUTE .COMPLEX Qty: 90 0RF Dose Instruction: TAKE 1 TABLET BY MOUTH EVERY MORNING Rx Instructions: TAKE 1 TABLET BY MOUTH EVERY MORNING gabapentin 300 mg capsule See Rx Instructions .ROUTE .COMPLEX Qty: 90 3RF Dose Instruction: TAKE 1 CAPSULE BY MOUTH EVERY 8 HOURS FOR CHRONIC PAIN Rx Instructions: TAKE 1 CAPSULE BY MOUTH EVERY 8 HOURS FOR CHRONIC PAIN fluticasone propionate 50 mcg/actuation spray,suspension 2 spray intranasal BID PRN (Reason: allergies) Qty: 48 1RF meloxicam 7.5 mg tablet See Rx Instructions .ROUTE .COMPLEX Qty: 60 1RF Dose Instruction: TAKE ONE TABLET BY MOUTH TWO TIMES A DAY NEEDED FOR PAIN AND INFLAMMATION Rx Instructions: TAKE ONE TABLET BY MOUTH TWO TIMES A DAY NEEDED FOR PAIN AND INFLAMMATION budesonide-formoterol 160-4.5 mcg/actuation HFA aerosol inhaler See Rx Instructions .ROUTE .COMPLEX Qty: 10.2 1RF Dose Instruction: INHALE 2 PUFFS TWICE A DAY Rx Instructions: INHALE 2 PUFFS TWICE A DAY dexlansoprazole 60 mg capsule,biphase delayed releas 60 mg PO DAILY PRN (Reason: Acid Reflux) Qty: 90 0RF hydroxyzine HCl 25 mg tablet See Rx Instructions .ROUTE .COMPLEX Qty: 180 3RF Dose Instruction: TAKE 1 TABLET BY MOUTH TWICE A DAY NEEDED FOR ANXIETY Rx Instructions: TAKE 1 TABLET BY MOUTH TWICE A DAY NEEDED FOR ANXIETY methylprednisolone [Medrol (Cedrick)] 4 mg tablets,dose pack See Rx Instructions .ROUTE .COMPLEX Qty: 21 0RF Rx Instructions: for 6 days azithromycin 500 mg tablet See Rx Instructions .ROUTE .COMPLEX Qty: 5 0RF Rx Instructions: For 250 mg dose pack: take 500 mg today (day 1), then 250 mg for 4 days (days 2-5) levofloxacin 750 mg tablet 750 mg PO DAILY 7 Days Qty: 7 0RF prednisone 20 mg tablet 20 mg PO TID Qty: 15 0RF Rx Instructions: 1 p.o. 3 times daily x3 days, 1 p.o. twice daily x2 days, 1 p.o. daily x2 days albuterol sulfate 90 mcg/actuation HFA aerosol inhaler 2 inh INHALATION Q4H PRN (Reason: shortness of breath or wheezing) Qty: 18 0RF rosuvastatin 20 mg tablet 20 mg PO QPM Discharge Orders: Discharge ED (Routine); Ordered 07/19/25 Ordered By: Zayda Villavicencio Referrals: Rebecca Sarmiento DO [Primary Care Provider, Family Practice] Patient Instructions: Patient Portal & Jimmy Instructions Print Language: Slovak Coding Level of Care Code ED Hazardous Waste Management Specialist for 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
[2025-07-19] MEDS: orphenadrine 30 mg/mL Inj 2 mL 60 MG IM (22:36)
[2025-07-19] MEDS: LORazepam 2 mg/mL INJ 1 mL 1 MG IM (22:36)
[2025-07-19 22:44] VITALS: BP 125/84; PULSE 104; O2SAT 96
== END 2025-07-19 22:45 | disposition home or self-care (01) ==
PROVIDERS: Emergency Provider Physician Assistant; PCP Family Medicine
DX: M79.604 Pain in right leg (principal); F17.210 Nicotine dependence, cigarettes, uncomplicated; J44.9 Chronic obstructive pulmonary disease, unspecified
CPT/HCPCS: 96372; 99284; J1885; J2060; J2360